=== PATIENT | female | born 1965 | race African-American/Black ===

== ENCOUNTER 2020-04-11 20:16 | Inpatient (IN) | payer MEDICAID ==
[~2020-04-11] VITALS: Ht 170.2 cm; Wt 68.0 kg
--- NOTE | 2020-04-11 20:30 | NUR ---
ED Nurse Note: Patient brought into the ED by [facility] from [facility] due to abnormal labs. Per EMS pts hgb is 7.6 and is undergoing chemo and was receiving vancomycin IV. Pt has PICC line at right arm. Patient is paraplegic. Pt denies CP/SOB//, fatigue or weakness, N/V/D. Patient is AAOX4 and placed on monitor bed
--- NOTE | 2020-04-11 20:35 | NUR ---
ED Nurse Note: ERMD at bedside
--- NOTE | 2020-04-11 20:45 | NUR ---
ED Nurse Note: Blood sent to lab
[2020-04-11] MEDS ORDERED: IPRAT-ALBUT 0.5-3 ML IH (20:54)
[2020-04-11] MEDS ORDERED: PANTOPRAZOLE SO40 MG ORAL (20:54)
[2020-04-11] MEDS ORDERED: IBUPROFEN600 M1 ORAL (20:54)
[2020-04-11] MEDS ORDERED: BACLOFEN10 MG ORAL (20:54)
[2020-04-11] MEDS ORDERED: FOLIC ACID1 MG ORAL (20:54)
[2020-04-11] MEDS ORDERED: NORCO 5-325 TA1 EAC1 ORAL (20:54)
[2020-04-11] MEDS ORDERED: CARDIZEM30 M1 PO (20:54)
[2020-04-11] MEDS ORDERED: TRAMADOL HCL50 MG ORAL (20:54)
[2020-04-11] MEDS ORDERED: ALLOPURINOL300 M1 ORAL (20:54)
[2020-04-11 21:02] VITALS: BP 108/64
[2020-04-11 21:08] LABS: HEMATOCRIT 21.4 % (37.0-47.0); MEAN CORPUSCULAR VOLUME 86 FL (80-99); PLATELET COUNT 542 K/UL (150-450); RED BLOOD COUNT 2.48 M/UL (4.20-5.40); RED CELL DISTRIBUTION WIDTH 16.9 % (11.6-14.8); WHITE BLOOD COUNT 5.5 K/UL (4.8-10.8)
[2020-04-11 21:16] LABS: ANION GAP 7 mmol/L (5-15); BLOOD UREA NITROGEN 4 mg/dL (7-18); CALCIUM 8.7 MG/DL (8.5-10.1); CARBON DIOXIDE 30 MMOL/L (21-32); CHLORIDE 104 MMOL/L (98-107); CREATININE 0.5 MG/DL (0.55-1.30); POTASSIUM 3.1 MMOL/L (3.5-5.1); SODIUM 141 MMOL/L (136-145)
[2020-04-11 21:19] LABS: INR 1.3 (0.9-1.1)
[2020-04-11 21:20] LABS: ALANINE AMINOTRANSFERASE 11 U/L (12-78); ALBUMIN 2.3 G/DL (3.4-5.0); ALBUMIN/GLOBULIN RATIO 0.6 (1.0-2.7); ALKALINE PHOSPHATASE 178 U/L (46-116); ASPARTATE AMINO TRANSFERASE 11 U/L (15-37); BILIRUBIN,TOTAL 0.5 MG/DL (0.2-1.0)
[2020-04-11 21:25] LABS: HEMOGLOBIN 6.7 G/DL (12.0-16.0)
[2020-04-11] MEDS ORDERED: Morphine Sulfate 2mg/ml Inj(IV/IM USE ONLY) IVP ONE (21:30)
[2020-04-11 21:32] LABS: APPEARANCE,URINE CLEAR; BILIRUBIN, URINE NEGATIVE (NEGATIVE); COLOR,URINE PALE YELLOW; GLUCOSE, URINE (UA) NEGATIVE (NEGATIVE); KETONES,URINE NEGATIVE (NEGATIVE); LEUKOCYTE ESTERASE ,URINE 1+ (NEGATIVE); NITRITE,URINE NEGATIVE (NEGATIVE); PH,URINE 7 (4.5-8.0); PROTEIN,URINE NEGATIVE (NEGATIVE); UROBILINOGEN,URINE NORMAL MG/DL (0.0-1.0)
--- NOTE | 2020-04-11 22:30 | NUR ---
ED Nurse Note: 1st unit of PRBC started
--- NOTE | 2020-04-11 22:45 | Emergency Room Report ---
History of Present Illness General Chief Complaint: Abnormal Labs Source: Patient, Medical Record, EMS Present Illness HPI 55-year-old female presents for abnormal labs. [facility] with low hemoglobin. Patient denies any dizziness or weakness. Denies any blood in stool. Denies chest pain or shortness of breath. No other aggravating relieving factors. Denies any other associated symptoms Allergies: Coded Allergies: No Known Allergies (Unverified , 04/11/20) COVID-19 Screening Contact w/high risk pt: No Experienced COVID-19 symptoms?: No COVID-19 Testing performed HY[employer]LECT[employer]ICIAN: No Patient History Past Medical History: HTN Past Surgical History: none Pertinent Family History: none Social History: Denies: smoking, alcohol use, drug use Now: No Immunizations: UTD Reviewed Nursing Documentation: PMH: Agreed; PSxH: Agreed Nursing Documentation-PMH Hx Hypertension: Yes Review of Systems All Other Systems: negative except mentioned in HPI Physical Exam Vital Signs Date Time Temp Pulse Resp B/P (MAP) Pulse Ox O2 Delivery O2 Flow Rate FiO2 04/11/20 20:20 99.0 113 16 103/64 (77) 97 Nasal Cannula 2.0 Sp02 EP Interpretation: reviewed, normal General Appearance: no apparent distress, alert, GCS 15, non-toxic Head: normocephalic, atraumatic Eyes: bilateral eye normal inspection, bilateral eye PERRL ENT: hearing grossly normal, normal pharynx, no angioedema, normal voice Neck: full range of motion, supple/symm/no masses Respiratory: chest non-tender, lungs clear, normal breath sounds, speaking full sentences Cardiovascular #1: regular rate, rhythm, no edema Cardiovascular #2: 2+ carotid (R), 2+ carotid (L), 2+ radial (R), 2+ radial (L), 2+ dorsalis pedis (R), 2+ dorsalis pedis (L) Gastrointestinal: normal bowel sounds, non tender, soft, non-distended, no guarding, no rebound Rectal: deferred Genitourinary: normal inspection, no CVA tenderness Musculoskeletal: back normal, normal range of motion, gait/station normal, non- tender Neurologic: alert, motor strength/tone normal, oriented x3, sensory intact, responsive, speech normal Psychiatric: judgement/insight normal, memory normal, mood/affect normal, no suicidal/homicidal ideation Reflexes: 3+ bicep (R), 3+ bicep (L), 3+ tricep (R), 3+ tricep (L), 3+ knee (R), 3+ knee (L) Lymphatic: no adenopathy Procedures Critical Care Time Critical Care Time i. I feel this is a highly complex case requiring extensive working including EKG/Rhythm strip, Xray/CT/US, Blood/urine lab work, repeat exams while in ED, and administration of strong opiates/narcotics for pain control, admission to hospital or close patient follow up. Total time: 30 min bedside evaluation and treatment excludes procedures (EKG). Reason for critical care: anemia Possible complications: hypotension, hypertension, [place], shock, arrhythmias, met abolic acidosis, end organ damage, respiratory failure. Interventions: labs, IVFs, blood transfusion Course: Patient presenting with low hemoglobin. Hemoglobin 6.7. Asymptomatic. Vital stable. Blood transfusion ordered Consultations: nursing staff, EMS, family Performed by: Dr May Tolerated well condition = serious j. because of unstable vital signs this patient had a condition that could potentially threaten life or limb. I feel this is a critical patient who required my full attention while patient was considered critical. Total Critical Care Time excluding procedures was greater than 35 minutes Medical Decision Making Diagnostic Impression: Primary Impression: Anemia Qualified Codes: D64.9 - Anemia, unspecified ER Course Hospital Course 55-year-old female presents to ED for evaluation of possible anemia, with possible transfusion Differential diagnoses include: anemia requiring transfusion, microcytic anemia, macrocytic anemia, heavy blood loss Clinical course Patient placed on stretcher. After initial history and physical I ordered labs including CBC and type and screen. Labs- hemoglobin/hematocrit 6.7/21.4. Electrolytes okay, no leukocytosis PRBCs ordered patient admitted to DR Dykes Diagnosis - anemia Admitted to floor in serious condition Laboratory Tests Test 04/11/20 20:59 04/11/20 21:10 White Blood Count 5.5 K/UL (4.8-10.8) Red Blood Count 2.48 M/UL (4.20-5.40) L Hemoglobin 6.7 G/DL (12.0-16.0) *L Hematocrit 21.4 % (37.0-47.0) L Mean Corpuscular Volume 86 FL (80-99) Mean Corpuscular Hemoglobin 27.1 PG (27.0-31.0) Mean Corpuscular Hemoglobin Concent 31.4 G/DL (32.0-36.0) L Red Cell Distribution Width 16.9 % (11.6-14.8) H Platelet Count 542 K/UL (150-450) H Mean Platelet Volume 5.1 FL (6.5-10.1) L Neutrophils (%) (Auto) % (45.0-75.0) Lymphocytes (%) (Auto) % (20.0-45.0) Monocytes (%) (Auto) % (1.0-10.0) Eosinophils (%) (Auto) % (0.0-3.0) Basophils (%) (Auto) % (0.0-2.0) Differential Total Cells Counted 100 Neutrophils % (Manual) 70 % (45-75) Lymphocytes % (Manual) 21 % (20-45) Monocytes % (Manual) 5 % (1-10) Eosinophils % (Manual) 3 % (0-3) Basophils % (Manual) 1 % (0-2) Band Neutrophils 0 % (0-8) Platelet Estimate Increased H Platelet Morphology Normal Hypochromasia 3+ Anisocytosis 2+ Prothrombin Time 13.8 SEC (9.30-11.50) H Prothromb Time International Ratio 1.3 (0.9-1.1) H Activated Partial Thromboplast Time 32 SEC (23-33) Sodium Level 141 MMOL/L (136-145) Potassium Level 3.1 MMOL/L (3.5-5.1) L Chloride Level 104 MMOL/L (98-107) Carbon Dioxide Level 30 MMOL/L (21-32) Anion Gap 7 mmol/L (5-15) Blood Urea Nitrogen 4 mg/dL (7-18) L Creatinine 0.5 MG/DL (0.55-1.30) L Estimat Glomerular Filtration Rate > 60 mL/min (>60) Glucose Level 94 MG/DL (74-106) Calcium Level 8.7 MG/DL (8.5-10.1) Total Bilirubin 0.5 MG/DL (0.2-1.0) Aspartate Amino Transf (AST/SGOT) 11 U/L (15-37) L Alanine Aminotransferase (ALT/SGPT) 11 U/L (12-78) L Alkaline Phosphatase 178 U/L (46-116) H Total Protein 6.3 G/DL (6.4-8.2) L Albumin 2.3 G/DL (3.4-5.0) L Globulin 4.0 g/dL Albumin/Globulin Ratio 0.6 (1.0-2.7) L Lipase 214 U/L (73-393) Urine Color Pale yellow Urine Appearance Clear Urine pH 7 (4.5-8.0) Urine Specific [place] 1.005 (1.005-1.035) Urine Protein Negative (NEGATIVE) Urine Glucose (UA) Negative (NEGATIVE) Urine Ketones Negative (NEGATIVE) Urine Blood Negative (NEGATIVE) Urine Nitrite Negative (NEGATIVE) Urine Bilirubin Negative (NEGATIVE) Urine Urobilinogen Normal MG/DL (0.0-1.0) Urine Leukocyte Esterase 1+ (NEGATIVE) H Urine RBC 0-2 /HPF (0 - 2) Urine WBC 5-10 /HPF (0 - 2) H Urine Squamous Epithelial Cells Few /LPF (NONE/OCC) Urine Bacteria Few /HPF (NONE) Last Vital Signs Date Time Temp Pulse Resp B/P (MAP) Pulse Ox O2 Delivery O2 Flow Rate FiO2 04/11/20 21:57 99.0 04/11/20 21:02 83 18 108/64 97 Nasal Cannula 2.0 Status: improved Disposition: ADMITTED INPATIENT Condition: Serious Referrals: [facility],REFERRING (PCP) Rickie May MD Apr 11, 2020 22:45
[2020-04-12] VITALS (8 sets, daily range): BP systolic 97–155; BP diastolic 62–103
--- NOTE | 2020-04-12 01:30 | NUR ---
ED Nurse Note: 1st unit of PRBC consumed. No BT reaction noted
--- NOTE | 2020-04-12 02:00 | NUR ---
ED Nurse Note: VRE, CRE, MRSA sent
[2020-04-12] MEDS ORDERED: Morphine Sulfate 2mg/ml Inj(IV/IM USE ONLY) ONE (02:13)
[2020-04-12] MEDS ORDERED: Morphine Sulfate 2mg/ml Inj(IV/IM USE ONLY) IVP ONE (02:15)
--- NOTE | 2020-04-12 02:15 | NUR ---
TRANSFER TO FLOOR: [facility] accompanied by RN. Belongings checked and given to RN. PAtient transferred safely to bed and endorsed to RN
--- NOTE | 2020-04-12 02:15 | NUR ---
NURSE NOTES: Patient brought in by ER staff via gurney, patient is paraplegic lower extremities, has a eaton in. PICC line in place, flushing well. Patient belongings brought with patient and verified inventory with BAR HOST/HOSTESS. In no apparent distress. bed is low and locked. call light within reach. oriented to room , verbalized understanding
[2020-04-12] MEDS ORDERED: Albuterol/Ipratropium 3ml neb INH PRN ×2 (02:45→04:30)
[2020-04-12] MEDS ORDERED: Morphine Sulfate 2mg/ml Inj(IV/IM USE ONLY) IVP PRN (02:45)
[2020-04-12] MEDS: Morphine Sulfate 2mg/ml Inj(IV/IM USE ONLY) IVP PRN ×4 (04:09→19:44)
--- NOTE | 2020-04-12 04:30 | NUR ---
NURSE NOTES: Prior to blood transfusion, patient developed fever of 99.9. Paged dr Dykes for orders, received order to give tylenol 650 mg prior to and to proceed with transfusion if temp WNL
[2020-04-12] MEDS: dilTIAZem HCl 30mg tab ORAL SCH ×3 (06:00→18:05)
[2020-04-12] MEDS ORDERED: Cathflo Alteplase 2mg Inj INJ SCH ×2 (06:00→21:00)
--- NOTE | 2020-04-12 06:10 | NUR ---
NURSE NOTES: STARTED BLOOD TRANSFUSION
--- NOTE | 2020-04-12 06:25 | NUR ---
NURSE NOTES: 15 mins after the start of blood transfusion, patient's vs wnl
[2020-04-12 06:49] LABS: HEMATOCRIT 24.2 % (37.0-47.0); HEMOGLOBIN 7.8 G/DL (12.0-16.0); MEAN CORPUSCULAR VOLUME 82 FL (80-99); PLATELET COUNT 517 K/UL (150-450); RED BLOOD COUNT 2.95 M/UL (4.20-5.40); RED CELL DISTRIBUTION WIDTH 19.6 % (11.6-14.8)
--- NOTE | 2020-04-12 07:12 | NUR ---
NURSE HAND-OFF: Important Events on Shift: Blood transfusion in process, patient tolerating well. Patient took KDur but she takes a while to swallow whole/ large pills . Patient Status: stable Diet: regular Pending Orders: [] Pending Results/Labs:[] Pending MD notification:[] Latest Vital Signs: Temperature 98.7 , Pulse 103 , B/P 100 /67 , Respiratory Rate 18 , O2 SAT 98 , Nasal Cannula, O2 Flow Rate 2.0 . Vital Sign Comment: [] Latest [place] Fall Score: 55 Fall Risk: High Risk Safety Measures: Call light Within Reach, Bed Alarm Zone 2, Side Rails Side Rails x2, Bed position Low and Locked. Fall Precautions: Yellow Socks Yellow Gown Door Sign Patient Fall Education Report given to Arabella LUCIA
[2020-04-12 07:13] LABS: ANION GAP 8 mmol/L (5-15); BLOOD UREA NITROGEN 3 mg/dL (7-18); CARBON DIOXIDE 29 MMOL/L (21-32); CHLORIDE 104 MMOL/L (98-107); CREATININE 0.5 MG/DL (0.55-1.30); PHOSPHORUS 3.8 MG/DL (2.5-4.9); POTASSIUM 3.3 MMOL/L (3.5-5.1); SODIUM 141 MMOL/L (136-145)
[2020-04-12 07:18] LABS: CALCIUM 8.8 MG/DL (8.5-10.1)
--- NOTE | 2020-04-12 07:30 | NUR ---
NURSE NOTES: Received report from Elie LUCIA. Patient is asleep during rounds, in no distress, RR even and unlabored. Patient receiving blood transfusion at this time via LINDEN PICC, dressing clean and intact. Morales to gravity drainage draining clear, yellow urine. Patient is on 2L NC. Side rails upx3, bed low and locked, call light within reach.
[2020-04-12] MEDS: Vancomycin 1.25gm/250ml Premix IVPB SCH ×2 (09:00→19:44)
--- NOTE | 2020-04-12 09:36 | NUR ---
NURSE NOTES: Blood transfusion done, VS stable, no s/s of transfusion reaction. Tachycardia at 118 HR, patient states she has pain in her back and legs.
--- NOTE | 2020-04-12 13:30 | Consultation ---
History of Present Illness General Chief Complaint: Abnormal Labs Present Illness HPI 55F with PMhx of Non-Hodgkins Lymphoma (per patient) and recent admission for Sepsis 2' port infection presents following abnormal labs at SNF. Patient states that she was recently at OSH and treated for sepsis 2' port infection and is receiving antibiotics at SNF. She had a new diagnosis of lymphoma and is following by outside oncologist and last received chemo treatment in February 2020. Her sister called nursing staff and it was noted that her prior hb were in the r cassidy of 9-10g/dL. She states she is weaker. She has not had a colonoscopy in the past. Denies any vaginal bleeding, rectal bleeding, or dark/tarry bowel movements. She says it was noted that there is increasing burden of her lymphoma in her spine. Allergies: Coded Allergies: No Known Allergies (Unverified , 04/11/20) Medication History Scheduled Allopurinol* (Allopurinol*), 300 MG ORAL DAILY, (Reported) Baclofen* (Baclofen*), 10 MG ORAL THREE TIMES A DAY, (Reported) Cholecalciferol (Vitamin D3) (Vitamin D3*), 25 MCG PO DAILY, (Reported) Diltiazem Hcl* (Cardizem*), 30 MG PO QID, (Reported) Folic Acid* (Folic Acid*), 1 MG ORAL DAILY, (Reported) Hydrochlorothiazide* (Hydrochlorothiazide*), 25 MG ORAL DAILY, (Reported) Ibuprofen* (Motrin*), 600 MG ORAL FOUR TIMES A DAY, (Reported) Levofloxacin* (Levofloxacin*), 750 MG ORAL DAILY, (Reported) Pantoprazole* (Pantoprazole*), 40 MG ORAL DAILY, (Reported) Scheduled PRN Hydrocodone Bit/Acetaminophen 5-325* ([place] 5-325 Tablet*), 1 TAB ORAL Q4H PRN for For Pain, (Reported) Tramadol Hcl* (Ultram*), 300 MG ORAL Q6H PRN for For Pain, (Reported) Miscellaneous Medications Ipratropium/Albuterol Sulfate (Iprat-Albut 0.5-3(2.5) Mg/3 Ml), 3 ML IH, (Repor bethany) Patient History Healthcare decision maker Resuscitation status Advanced Directive on File Review of Systems All Other Systems: negative except mentioned in HPI Physical Exam General Appearance: no apparent distress Lines, tubes and drains: peripheral HEENT: normocephalic, atraumatic Neck: non-tender, normal alignment Respiratory/Chest: chest wall non-tender, lungs clear Cardiovascular/Chest: normal peripheral pulses, normal rate Abdomen: normal bowel sounds, non tender Neurologic: alert, oriented x 3 Last 24 Hour Vital Signs Date Time Temp Pulse Resp B/P (MAP) Pulse Ox O2 Delivery O2 Flow Rate FiO2 04/12/20 08:45 78 16 99 Nasal Cannula 2.0 28 04/12/20 08:00 98.4 110 16 110/71 (84) 98 04/12/20 07:55 99 Nasal Cannula 2.0 28 04/12/20 06:25 98.7 103 18 100/67 (78) 98 04/12/20 06:10 98.3 116 18 98/62 (74) 97 04/12/20 06:00 116 98/62 04/12/20 05:27 98.3 04/12/20 04:00 99.9 121 18 122/82 (95) 100 04/12/20 03:47 Nasal Cannula 2.0 04/12/20 03:46 99.0 04/12/20 02:36 98.9 18 123/82 (96) 100 04/12/20 02:15 99.0 83 18 108/64 97 Nasal Cannula 2.0 04/11/20 21:57 99.0 04/11/20 21:02 99.0 83 18 108/64 97 Nasal Cannula 2.0 04/11/20 20:20 99.0 113 16 103/64 (77) 97 Nasal Cannula 2.0 Intake and Output 04/11/20 04/12/20 18:59 06:59 Intake Total 500 ml Output Total 650 ml Balance -150 ml Intake Oral 500 ml Output Urine Total 650 ml Laboratory Tests Test 04/11/20 20:59 04/11/20 21:10 04/12/20 05:00 White Blood Count 5.5 K/UL (4.8-10.8) 6.0 K/UL (4.8-10.8) Red Blood Count 2.48 M/UL (4.20-5.40) L 2.95 M/UL (4.20-5.40) L Hemoglobin 6.7 G/DL (12.0-16.0) *L 7.8 G/DL (12.0-16.0) L Hematocrit 21.4 % (37.0-47.0) L 24.2 % (37.0-47.0) L Mean Corpuscular Volume 86 FL (80-99) 82 FL (80-99) Mean Corpuscular Hemoglobin 27.1 PG (27.0-31.0) 26.6 PG (27.0-31.0) L Mean Corpuscular Hemoglobin Concent 31.4 G/DL (32.0-36.0) L 32.4 G/DL (32.0-36.0) Red Cell Distribution Width 16.9 % (11.6-14.8) H 19.6 % (11.6-14.8) H Platelet Count 542 K/UL (150-450) H 517 K/UL (150-450) H Mean Platelet Volume 5.1 FL (6.5-10.1) L 4.8 FL (6.5-10.1) L Neutrophils (%) (Auto) % (45.0-75.0) % (45.0-75.0) Lymphocytes (%) (Auto) % (20.0-45.0) % (20.0-45.0) Monocytes (%) (Auto) % (1.0-10.0) % (1.0-10.0) Eosinophils (%) (Auto) % (0.0-3.0) % (0.0-3.0) Basophils (%) (Auto) % (0.0-2.0) % (0.0-2.0) Differential Total Cells Counted 100 100 Neutrophils % (Manual) 70 % (45-75) 72 % (45-75) Lymphocytes % (Manual) 21 % (20-45) 17 % (20-45) L Monocytes % (Manual) 5 % (1-10) 8 % (1-10) Eosinophils % (Manual) 3 % (0-3) 3 % (0-3) Basophils % (Manual) 1 % (0-2) 0 % (0-2) Band Neutrophils 0 % (0-8) 0 % (0-8) Platelet Estimate Increased H Increased H Platelet Morphology Normal Normal Hypochromasia 3+ 1+ Anisocytosis 2+ 2+ Prothrombin Time 13.8 SEC (9.30-11.50) H Prothromb Time International Ratio 1.3 (0.9-1.1) H Activated Partial Thromboplast Time 32 SEC (23-33) Sodium Level 141 MMOL/L (136-145) 141 MMOL/L (136-145) Potassium Level 3.1 MMOL/L (3.5-5.1) L 3.3 MMOL/L (3.5-5.1) L Chloride Level 104 MMOL/L (98-107) 104 MMOL/L (98-107) Carbon Dioxide Level 30 MMOL/L (21-32) 29 MMOL/L (21-32) Anion Gap 7 mmol/L (5-15) 8 mmol/L (5-15) Blood Urea Nitrogen 4 mg/dL (7-18) L 3 mg/dL (7-18) L Creatinine 0.5 MG/DL (0.55-1.30) L 0.5 MG/DL (0.55-1.30) L Estimat Glomerular Filtration Rate > 60 mL/min (>60) > 60 mL/min (>60) Glucose Level 94 MG/DL (74-106) 91 MG/DL (74-106) Calcium Level 8.7 MG/DL (8.5-10.1) 8.8 MG/DL (8.5-10.1) Total Bilirubin 0.5 MG/DL (0.2-1.0) Aspartate Amino Transf (AST/SGOT) 11 U/L (15-37) L Alanine Aminotransferase (ALT/SGPT) 11 U/L (12-78) L Alkaline Phosphatase 178 U/L (46-116) H Total Protein 6.3 G/DL (6.4-8.2) L Albumin 2.3 G/DL (3.4-5.0) L Globulin 4.0 g/dL Albumin/Globulin Ratio 0.6 (1.0-2.7) L Lipase 214 U/L (73-393) Urine Color Pale yellow Urine Appearance Clear Urine pH 7 (4.5-8.0) Urine Specific [place] 1.005 (1.005-1.035) Urine Protein Negative (NEGATIVE) Urine Glucose (UA) Negative (NEGATIVE) Urine Ketones Negative (NEGATIVE) Urine Blood Negative (NEGATIVE) Urine Nitrite Negative (NEGATIVE) Urine Bilirubin Negative (NEGATIVE) Urine Urobilinogen Normal MG/DL (0.0-1.0) Urine Leukocyte Esterase 1+ (NEGATIVE) H Urine RBC 0-2 /HPF (0 - 2) Urine WBC 5-10 /HPF (0 - 2) H Urine Squamous Epithelial Cells Few /LPF (NONE/OCC) Urine Bacteria Few /HPF (NONE) Phosphorus Level 3.8 MG/DL (2.5-4.9) Magnesium Level 1.5 MG/DL (1.8-2.4) L Height (Feet): 5 Height (Inches): 7.00 Weight (Pounds): 150 Medications Current Medications Medications (Trade) Dose Ordered Sig/Angelika Route PRN Reason Start Time Stop Time Status Last Admin Dose Admin Acetaminophen (Tylenol) 650 mg Q6H PRN ORAL Mild Pain (Pain Scale 1-3) 04/12/20 02:45 05/12/20 02:44 Albuterol/ Ipratropium (Albuterol/ Ipratropium) 3 ml Q4H PRN INH Shortness of Breath 04/12/20 04:30 04/17/20 04:29 Allopurinol (allopurinoL) 300 mg DAILY ORAL 04/12/20 09:00 05/12/20 08:59 04/12/20 09:00 Alteplase, Recombinant (Cathflo) 4 mg ONCE INJ 04/12/20 21:00 04/13/20 06:00 Baclofen (Lioresal) 10 mg THREE TIMES A DAY ORAL 04/12/20 09:00 05/12/20 08:59 Chlorhexidine Gluconate (Christy-Hex 2%) 1 applic DAILY@1999 TOPIC 04/12/20 20:00 07/11/20 19:59 Diltiazem HCl (Cardizem Tab) 30 mg QID@0000,0600,1200,1800 ORAL 04/12/20 06:00 05/12/20 05:59 Folic Acid (Folate) 1 mg DAILY ORAL 04/12/20 09:00 05/12/20 08:59 04/12/20 09:00 Magnesium Oxide (Mag-Ox 400mg) 400 mg THREE TIMES A DAY ORAL 04/12/20 13:00 04/14/20 12:59 Morphine Sulfate (Morphine Sulfate) 1 mg Q3H PRN IVP Moderate Pain (Pain Scale 4-6) 04/12/20 02:45 04/19/20 02:44 Morphine Sulfate (Morphine Sulfate) 2 mg Q3H PRN IVP Severe Pain (Pain Scale 7-10) 04/12/20 02:45 04/19/20 02:44 04/12/20 09:39 Pantoprazole (Protonix) 40 mg DAILY ORAL 04/12/20 09:00 05/12/20 08:59 04/12/20 09:00 Vancomycin HCl 250 ml @ 166.667 mls/hr Q12HR@0800,1999 IVPB 04/12/20 08:00 04/17/20 07:59 04/12/20 09:00 Vancomycin HCl (Vanco pharmacy to dose) 1 ea DAILY PRN MISC Per rx protocol 04/12/20 04:15 05/12/20 04:14 Assessment/Plan Diagnosis [place] I: #hypokalemia- #hypomagnesemia #Acute on chronic anemia #h/p non- hodgkins lymphoma #possible sepsis #? port infection - prbc transfusion - replete lytes - hemo-onc eval - ID eval - continue with IV abx - monitor CBC - avoid nephrotoxins times spent 65 min Kallie Dykes M.D. Apr 12, 2020 13:30
[2020-04-12] MEDS: Magnesium Oxide 400mg tab ORAL SCH ×2 (14:26→18:05)
--- NOTE | 2020-04-12 14:45 | NUR ---
CASE MANAGEMENT:INITIAL REVIEW 55 YR OLD FEMALE BIBA FROM [facility] CC;ABNORMAL LABS SI;ANEMIA 99.9 121 118 123/82 97% 2L NV RBC 2.48 H/H 6.7/21.4 PLT 542 K+ 3.1 ALP 178 ALB 2.3 PT 13.8 INR 1.3 UA + LEUKOCYTE ESTERASE, WBC TYPE AND CROSS IS;2 UNITS PRBC TRANSFUSED MORPHINE SULFATE IV ADMITTED TO MED SURG MED SURG STATUS DCP;FROM [facility]
--- NOTE | 2020-04-12 16:42 | NUR ---
NURSE NOTES: Called and notified Dr. Dykes that patient is tachycardia and has fever of 102.8. Received orders for NS bolus x1, tylenol, and swab for COVID. Patient placed on contact/droplet isolation for PUI-COVID. Nursing pile driving supervisor notified, transfer to pending.
--- NOTE | 2020-04-12 17:48 | History and Physical ---
History of Present Illness General Date patient seen: Apr 12, 2020 Time patient seen: 12:39 Reason for Hospitalization: Abnormal Labs Present Illness HPI 55F with PMhx of Non-Hodgkins Lymphoma (per patient) and recent admission for Sepsis 2' port infection presents following abnormal labs at SNF. Patient states that she was recently at OSH and treated for sepsis 2' port infection and is receiving antibiotics at SNF. She had a new diagnosis of lymphoma and is following by outside oncologist and last received chemo treatment in February 2020. Her sister called nursing staff and it was noted that her prior hb were in the range of 9-10g/dL. She states she is weaker. She has not had a colonoscopy in the past. Denies any vaginal bleeding, rectal bleeding, or dark/tarry bowel movements. She says it was noted that there is increasing burden of her lymphoma in her spine. Currently she is resting comfortably and in no distress. Allergies: Coded Allergies: No Known Allergies (Unverified , 04/11/20) COVID-19 Screening Contact w/high risk pt: No Experienced COVID-19 symptoms?: No Medication History Scheduled Allopurinol* (Allopurinol*), 300 MG ORAL DAILY, (Reported) Baclofen* (Baclofen*), 10 MG ORAL THREE TIMES A DAY, (Reported) Diltiazem Hcl* (Cardizem*), 30 MG PO QID, (Reported) Folic Acid* (Folic Acid*), 1 MG ORAL DAILY, (Reported) Ibuprofen* (Motrin*), 600 MG ORAL FOUR TIMES A DAY, (Reported) Pantoprazole* (Pantoprazole*), 40 MG ORAL DAILY, (Reported) Scheduled PRN Hydrocodone Bit/Acetaminophen 5-325* ([place] 5-325 Tablet*), 1 TAB ORAL Q4H PRN for For Pain, (Reported) Tramadol Hcl* (Ultram*), 300 MG ORAL Q6H PRN for For Pain, (Reported) Miscellaneous Medications Ipratropium/Albuterol Sulfate (Iprat-Albut 0.5-3(2.5) Mg/3 Ml), 3 ML IH, (Re ported) Patient History History Provided By: Patient Healthcare decision maker Resuscitation status Advanced Directive on File Review of Systems Constitutional: Denies: no symptoms, see HPI, chills, sweats, fever, malaise, weakness, other Eye: Denies: no symptoms, see HPI, eye pain, blurred vision, tearing, double vision, nose pain, nose congestion, acuity changes, discharge, other ENT: Denies: no symptoms, see HPI, ear pain, ear discharge, nose pain, nose congestion, throat pain, throat swelling, mouth pain, hearing loss, nasal discharge, other Respiratory: Denies: no symptoms, see HPI, cough, orthopnea, shortness of breath, stridor, wheezing, MUSTAFA, sputum, other Cardiovascular: Denies: no symptoms, see HPI, chest pain, edema, palpitations, syncope, PND, other Gastrointestinal: Denies: no symptoms, see HPI, abdominal pain, constipation, diarrhea, nausea, vomiting, melena, hematemesis, other Genitourinary: Denies: no symptoms, see HPI, discharge, dysuria, frequency, hematuria, pain, retention, incontinence, urgency, vag bleed/dc, other Musculoskeletal: Denies: no symptoms, see HPI, back pain, gout, joint pain, joint swelling, muscle pain, muscle stiffness, other Skin: Denies: no symptoms, see HPI, rash, change in color, change in hair/nails, dryness, lesions, other Psychiatric: Denies: no symptoms, see HPI, prior hx, anxiety, depressed feelings, emotional problems, SI, HI, hallucinations, other Neurological: Denies: no symptoms, see HPI, headache, numbness, paresthesia, seizure, tingling, tremors, focal weakness, syncope, dizziness, other Endocrine: Denies: no symptoms, see HPI, excessive sweating, flushing, intolerance to temperature, increased thirst, increased urine, unexplained weight loss, other Hematologic/Lymphatic: Denies: no symptoms, see HPI, anemia, blood clots, easy bleeding, easy bruising, swollen glands, diathesis, other Physical Exam General Appearance: no apparent distress, alert HEENT: normocephalic, atraumatic Neck: supple Respiratory/Chest: normal breath sounds, no respiratory distress Last 24 Hour Vital Signs Date Time Temp Pulse Resp B/P (MAP) Pulse Ox O2 Delivery O2 Flow Rate FiO2 04/12/20 16:24 102.8 122 18 139/85 (103) 95 04/12/20 12:00 98.6 114 16 155/103 (120) 96 04/12/20 08:45 78 16 99 Nasal Cannula 2.0 28 04/12/20 08:00 98.4 110 16 110/71 (84) 98 04/12/20 07:55 99 Nasal Cannula 2.0 28 04/12/20 06:25 98.7 103 18 100/67 (78) 98 04/12/20 06:10 98.3 116 18 98/62 (74) 97 04/12/20 06:00 116 98/62 04/12/20 05:27 98.3 04/12/20 04:00 99.9 121 18 122/82 (95) 100 04/12/20 03:47 Nasal Cannula 2.0 04/12/20 03:46 99.0 04/12/20 02:36 98.9 18 123/82 (96) 100 04/12/20 02:15 99.0 83 18 108/64 97 Nasal Cannula 2.0 04/11/20 21:57 99.0 04/11/20 21:02 99.0 83 18 108/64 97 Nasal Cannula 2.0 04/11/20 20:20 99.0 113 16 103/64 (77) 97 Nasal Cannula 2.0 Intake and Output 04/11/20 04/12/20 19:00 07:00 Intake Total 500 ml Output Total 650 ml Balance -150 ml Intake Oral 500 ml Output Urine Total 650 ml Laboratory Tests Test 04/11/20 20:59 04/11/20 21:10 04/11/20 21:32 04/12/20 05:00 White Blood Count 5.5 K/UL (4.8-10.8) 6.0 K/UL (4.8-10.8) Red Blood Count 2.48 M/UL (4.20-5.40) L 2.95 M/UL (4.20-5.40) L Hemoglobin 6.7 G/DL (12.0-16.0) *L 7.8 G/DL (12.0-16.0) L Hematocrit 21.4 % (37.0-47.0) L 24.2 % (37.0-47.0) L Mean Corpuscular Volume 86 FL (80-99) 82 FL (80-99) Mean Corpuscular Hemoglobin 27.1 PG (27.0-31.0) 26.6 PG (27.0-31.0) L Mean Corpuscular Hemoglobin Concent 31.4 G/DL (32.0-36.0) L 32.4 G/DL (32.0-36.0) Red Cell Distribution Width 16.9 % (11.6-14.8) H 19.6 % (11.6-14.8) H Platelet Count 542 K/UL (150-450) H 517 K/UL (150-450) H Mean Platelet Volume 5.1 FL (6.5-10.1) L 4.8 FL (6.5-10.1) L Neutrophils (%) (Auto) % (45.0-75.0) % (45.0-75.0) Lymphocytes (%) (Auto) % (20.0-45.0) % (20.0-45.0) Monocytes (%) (Auto) % (1.0-10.0) % (1.0-10.0) Eosinophils (%) (Auto) % (0.0-3.0) % (0.0-3.0) Basophils (%) (Auto) % (0.0-2.0) % (0.0-2.0) Differential Total Cells Counted 100 100 Neutrophils % (Manual) 70 % (45-75) 72 % (45-75) Lymphocytes % (Manual) 21 % (20-45) 17 % (20-45) L Monocytes % (Manual) 5 % (1-10) 8 % (1-10) Eosinophils % (Manual) 3 % (0-3) 3 % (0-3) Basophils % (Manual) 1 % (0-2) 0 % (0-2) Band Neutrophils 0 % (0-8) 0 % (0-8) Platelet Estimate Increased H Increased H Platelet Morphology Normal Normal Hypochromasia 3+ 1+ Anisocytosis 2+ 2+ Prothrombin Time 13.8 SEC (9.30-11.50) H Prothromb Time International Ratio 1.3 (0.9-1.1) H Activated Partial Thromboplast Time 32 SEC (23-33) Sodium Level 141 MMOL/L (136-145) 141 MMOL/L (136-145) Potassium Level 3.1 MMOL/L (3.5-5.1) L 3.3 MMOL/L (3.5-5.1) L Chloride Level 104 MMOL/L (98-107) 104 MMOL/L (98-107) Carbon Dioxide Level 30 MMOL/L (21-32) 29 MMOL/L (21-32) Anion Gap 7 mmol/L (5-15) 8 mmol/L (5-15) Blood Urea Nitrogen 4 mg/dL (7-18) L 3 mg/dL (7-18) L Creatinine 0.5 MG/DL (0.55-1.30) L 0.5 MG/DL (0.55-1.30) L Estimat Glomerular Filtration Rate > 60 mL/min (>60) > 60 mL/min (>60) Glucose Level 94 MG/DL (74-106) 91 MG/DL (74-106) Calcium Level 8.7 MG/DL (8.5-10.1) 8.8 MG/DL (8.5-10.1) Total Bilirubin 0.5 MG/DL (0.2-1.0) Aspartate Amino Transf (AST/SGOT) 11 U/L (15-37) L Alanine Aminotransferase (ALT/SGPT) 11 U/L (12-78) L Alkaline Phosphatase 178 U/L (46-116) H Total Protein 6.3 G/DL (6.4-8.2) L Albumin 2.3 G/DL (3.4-5.0) L Globulin 4.0 g/dL Albumin/Globulin Ratio 0.6 (1.0-2.7) L Lipase 214 U/L (73-393) Urine Color Pale yellow Urine Appearance Clear Urine pH 7 (4.5-8.0) Urine Specific [place] 1.005 (1.005-1.035) Urine Protein Negative (NEGATIVE) Urine Glucose (UA) Negative (NEGATIVE) Urine Ketones Negative (NEGATIVE) Urine Blood Negative (NEGATIVE) Urine Nitrite Negative (NEGATIVE) Urine Bilirubin Negative (NEGATIVE) Urine Urobilinogen Normal MG/DL (0.0-1.0) Urine Leukocyte Esterase 1+ (NEGATIVE) H Urine RBC 0-2 /HPF (0 - 2) Urine WBC 5-10 /HPF (0 - 2) H Urine Squamous Epithelial Cells Few /LPF (NONE/OCC) Urine Bacteria Few /HPF (NONE) Lab Scanned Report Blood Bank/Transfusion Phosphorus Level 3.8 MG/DL (2.5-4.9) Magnesium Level 1.5 MG/DL (1.8-2.4) L Height (Feet): 5 Height (Inches): 7.00 Weight (Pounds): 150 Medications Current Medications Medications (Trade) Dose Ordered Sig/Angelika Route PRN Reason Start Time Stop Time Status Last Admin Dose Admin Acetaminophen (Tylenol) 650 mg Q6H PRN ORAL Mild Pain (Pain Scale 1-3) 04/12/20 02:45 05/12/20 02:44 Acetaminophen (Tylenol) 650 mg Q6H PRN ORAL FEVER 04/12/20 16:30 05/12/20 16:29 04/12/20 17:00 Albuterol/ Ipratropium (Albuterol/ Ipratropium) 3 ml Q4H PRN INH Shortness of Breath 04/12/20 04:30 04/17/20 04:29 Allopurinol (allopurinoL) 300 mg DAILY ORAL 04/12/20 09:00 05/12/20 08:59 04/12/20 09:00 Alteplase, Recombinant (Cathflo) 4 mg ONCE INJ 04/12/20 21:00 04/13/20 06:00 Baclofen (Lioresal) 10 mg THREE TIMES A DAY ORAL 04/12/20 09:00 05/12/20 08:59 Chlorhexidine Gluconate (Christy-Hex 2%) 1 applic DAILY@2000 TOPIC 04/12/20 20:00 07/11/20 19:59 Diltiazem HCl (Cardizem Tab) 30 mg QID@0000,0600,1200,1800 ORAL 04/12/20 06:00 05/12/20 05:59 Folic Acid (Folate) 1 mg DAILY ORAL 04/12/20 09:00 05/12/20 08:59 04/12/20 09:00 Magnesium Oxide (Mag-Ox 400mg) 400 mg THREE TIMES A DAY ORAL 04/12/20 13:00 04/14/20 12:59 04/12/20 14:26 Morphine Sulfate (Morphine Sulfate) 1 mg Q3H PRN IVP Moderate Pain (Pain Scale 4-6) 04/12/20 02:45 04/19/20 02:44 Morphine Sulfate (Morphine Sulfate) 2 mg Q3H PRN IVP Severe Pain (Pain Scale 7-10) 04/12/20 02:45 04/19/20 02:44 04/12/20 16:18 Pantoprazole (Protonix) 40 mg DAILY ORAL 04/12/20 09:00 05/12/20 08:59 04/12/20 09:00 Sodium Chloride 1,000 ml @ 999 mls/hr Q1H1M ONCE IV 04/12/20 16:30 04/12/20 17:30 04/12/20 17:00 Vancomycin HCl 250 ml @ 166.667 mls/hr Q12HR@0800,2000 IVPB 04/12/20 08:00 04/17/20 07:59 04/12/20 09:00 Vancomycin HCl ([facility] pharmacy to dose) 1 ea DAILY PRN MISC Per rx protocol 04/12/20 04:15 05/12/20 04:14 Assessment/Plan Status: stable Assessment/Plan: #Acute blood loss anemia #Normyocytic anemia Patient presented with Hb 6.7 with normal MCV. History of lymphoma per patient and is receiving chemo tx, last known to be February 2020. - 2U PRBCs ordered and transufsed - Repeat hb stable - Rectic count pending - Iron and Ferritin pending - No active signs of bleeding - D/w Hematology, consulted to see patient - CTM for signs of bleeding - Patient will need colonoscopy as outpatient in the future #Hx of Lymphoma - All information per patient, not discussed with outpatient onc - Will need to request records #Hypokalemia #hypomagnesia - Lytes replaced #Hx of Sepsis 2' port infection #Febrile - Per patient she is to continue on Vancomycin till 04/25 - Port has been removed at OSH - , UC and CXR ordered, pending - Covid pending, in isolation pending result #Chronic Back pain - Resume Baclofen, norco, tramadol Full Code Regular Diet Time spent is 74 minutes with approximately 23 minutes with counseling and care coordination. D/w consultants and nursing staff. time of note does not reflect time of encounter. Kaylyn Mak M.D. Apr 12, 2020 17:48
--- NOTE | 2020-04-12 18:10 | NUR ---
NURSE NOTES: Patient transferred to [facility] in respiratory isolation d/t PUI COVID. Report given to Vivian LUCIA. Endorsed plan of care.
--- NOTE | 2020-04-12 18:20 | NUR ---
NURSE NOTES: Patient received from from REA Bell at 1810. Patient is awake, alert and oriented x 4, no SOB present, bed set in lowest position with breaks engaged and alarm on, side rails up x 2, denies any discomfort at this time, pt is on contact and droplet precaution for being PUI, no skin breakdown noted, all belongings complete, pt on room air, pt has PICC line on LINDEN and FC present, currently on IV bolus fluids for fever and tachycardia. Will continue to monitor and proceed with plan of care, call light within reach.
--- NOTE | 2020-04-12 19:27 | NUR ---
NURSE HAND-OFF: Important Events on Shift:[monitoring fever, IV bolus, safety and comfort] Patient Status: [stable] Diet: [regular] Pending Orders: [] Pending Results/Labs:[] Pending MD notification:[] Latest Vital Signs: Temperature 102.7 , Pulse 122 , B/P 139 /85 , Respiratory Rate 18 , O2 SAT 95 , Nasal Cannula, O2 Flow Rate 2.0 . Vital Sign Comment: [] Latest [place] Fall Score: 35 Fall Risk: Medium Risk Safety Measures: Call light Within Reach, Bed Alarm Zone 2, Side Rails Side Rails x3, Bed position Low and Locked. Fall Precautions: Yellow Socks Yellow Gown Door Sign Patient Fall Education Report given to [REA Tabares].
[2020-04-12] MEDS: Dyna-Hex 2% Top Sol 2oz TOPIC SCH (19:43)
--- NOTE | 2020-04-12 20:00 | NUR ---
NURSE NOTES: Patient received in bed, awake and alert. FC draining. PICC line dressing c/d/i. able to flush but unable to draw blood at this time, will administer cathflo as ordered after vancomycin infused. Patient refused complete skin assessment at this time c/o pain, morphine given. Will re-attempt later. Call light in reach, will continue with plan of care.
--- NOTE | 2020-04-12 22:30 | NUR ---
NURSE NOTES: Spoke with Dr. Hill re: patient new lab orders. made aware that RN currently attempting to unclog PICC line for blood draw. Unable to aspirate blood after 30 minutes after administration. Will re-attempt after another 90 minutes as indicated. Spoke with Bre from lab and made aware that RN will attempt to draw blood later. If not, will notify lab.
--- NOTE | 2020-04-12 22:32 | Consultation ---
History of Present Illness General Chief Complaint: Abnormal Labs Present Illness Allergies: Coded Allergies: No Known Allergies (Unverified , 04/11/20) Medication History Scheduled Allopurinol* (Allopurinol*), 300 MG ORAL DAILY, (Reported) Baclofen* (Baclofen*), 10 MG ORAL THREE TIMES A DAY, (Reported) Diltiazem Hcl* (Cardizem*), 30 MG PO QID, (Reported) Folic Acid* (Folic Acid*), 1 MG ORAL DAILY, (Reported) Ibuprofen* (Motrin*), 600 MG ORAL FOUR TIMES A DAY, (Reported) Pantoprazole* (Pantoprazole*), 40 MG ORAL DAILY, (Reported) Scheduled PRN Hydrocodone Bit/Acetaminophen 5-325* ([place] 5-325 Tablet*), 1 TAB ORAL Q4H PRN for For Pain, (Reported) Tramadol Hcl* (Ultram*), 300 MG ORAL Q6H PRN for For Pain, (Reported) Miscellaneous Medications Ipratropium/Albuterol Sulfate (Iprat-Albut 0.5-3(2.5) Mg/3 Ml), 3 ML IH, (Reported) Patient History Healthcare decision maker Resuscitation status Advanced Directive on File Physical Exam Last 24 Hour Vital Signs Date Time Temp Pulse Resp B/P (MAP) Pulse Ox O2 Delivery O2 Flow Rate FiO2 04/12/20 21:00 Nasal Cannula 2.0 04/12/20 20:00 98.1 114 16 97/62 (74) 96 04/12/20 18:05 122 139/85 04/12/20 17:30 102.7 04/12/20 17:30 102.7 04/12/20 16:24 102.8 122 18 139/85 (103) 95 04/12/20 12:00 98.6 114 16 155/103 (120) 96 04/12/20 09:00 Nasal Cannula 2.0 04/12/20 08:45 78 16 99 Nasal Cannula 2.0 28 04/12/20 08:00 98.4 110 16 110/71 (84) 98 04/12/20 07:55 99 Nasal Cannula 2.0 28 04/12/20 06:25 98.7 103 18 100/67 (78) 98 04/12/20 06:10 98.3 116 18 98/62 (74) 97 04/12/20 06:00 116 98/62 04/12/20 05:27 98.3 04/12/20 04:00 99.9 121 18 122/82 (95) 100 04/12/20 03:47 Nasal Cannula 2.0 04/12/20 03:46 99.0 04/12/20 02:36 98.9 18 123/82 (96) 100 04/12/20 02:15 99.0 83 18 108/64 97 Nasal Cannula 2.0 Intake and Output 04/11/20 04/12/20 19:00 07:00 Intake Total 500 ml Output Total 650 ml Balance -150 ml Intake Oral 500 ml Output Urine Total 650 ml Laboratory Tests Test 04/12/20 05:00 White Blood Count 6.0 K/UL (4.8-10.8) Red Blood Count 2.95 M/UL (4.20-5.40) L Hemoglobin 7.8 G/DL (12.0-16.0) L Hematocrit 24.2 % (37.0-47.0) L Mean Corpuscular Volume 82 FL (80-99) Mean Corpuscular Hemoglobin 26.6 PG (27.0-31.0) L Mean Corpuscular Hemoglobin Concent 32.4 G/DL (32.0-36.0) Red Cell Distribution Width 19.6 % (11.6-14.8) H Platelet Count 517 K/UL (150-450) H Mean Platelet Volume 4.8 FL (6.5-10.1) L Neutrophils (%) (Auto) % (45.0-75.0) Lymphocytes (%) (Auto) % (20.0-45.0) Monocytes (%) (Auto) % (1.0-10.0) Eosinophils (%) (Auto) % (0.0-3.0) Basophils (%) (Auto) % (0.0-2.0) Differential Total Cells Counted 100 Neutrophils % (Manual) 72 % (45-75) Lymphocytes % (Manual) 17 % (20-45) L Monocytes % (Manual) 8 % (1-10) Eosinophils % (Manual) 3 % (0-3) Basophils % (Manual) 0 % (0-2) Band Neutrophils 0 % (0-8) Platelet Estimate Increased H Platelet Morphology Normal Hypochromasia 1+ Anisocytosis 2+ Sodium Level 141 MMOL/L (136-145) Potassium Level 3.3 MMOL/L (3.5-5.1) L Chloride Level 104 MMOL/L (98-107) Carbon Dioxide Level 29 MMOL/L (21-32) Anion Gap 8 mmol/L (5-15) Blood Urea Nitrogen 3 mg/dL (7-18) L Creatinine 0.5 MG/DL (0.55-1.30) L Estimat Glomerular Filtration Rate > 60 mL/min (>60) Glucose Level 91 MG/DL (74-106) Calcium Level 8.8 MG/DL (8.5-10.1) Phosphorus Level 3.8 MG/DL (2.5-4.9) Magnesium Level 1.5 MG/DL (1.8-2.4) L Height (Feet): 5 Height (Inches): 7.00 Weight (Pounds): 150 Medications Current Medications Medications (Trade) Dose Ordered Sig/Angelika Route PRN Reason Start Time Stop Time Status Last Admin Dose Admin Acetaminophen (Tylenol) 650 mg Q6H PRN ORAL Mild Pain (Pain Scale 1-3) 04/12/20 02:45 05/12/20 02:44 Acetaminophen (Tylenol) 650 mg Q6H PRN ORAL FEVER 04/12/20 16:30 05/12/20 16:29 04/12/20 17:00 Albuterol/ Ipratropium (Albuterol/ Ipratropium) 3 ml Q4H PRN INH Shortness of Breath 04/12/20 04:30 04/17/20 04:29 Allopurinol (allopurinoL) 300 mg DAILY ORAL 04/12/20 09:00 05/12/20 08:59 04/12/20 09:00 Alteplase, Recombinant (Cathflo) 4 mg ONCE INJ 04/12/20 21:00 04/13/20 06:00 04/12/20 21:23 Baclofen (Lioresal) 10 mg THREE TIMES A DAY ORAL 04/12/20 09:00 05/12/20 08:59 Chlorhexidine Gluconate (Christy-Hex 2%) 1 applic DAILY@1999 TOPIC 04/12/20 20:00 07/11/20 19:59 04/12/20 19:43 Diltiazem HCl (Cardizem Tab) 30 mg QID@0000,0600,1200,1800 ORAL 04/12/20 06:00 05/12/20 05:59 04/12/20 18:05 Folic Acid (Folate) 1 mg DAILY ORAL 04/12/20 09:00 05/12/20 08:59 04/12/20 09:00 Magnesium Oxide (Mag-Ox 400mg) 400 mg THREE TIMES A DAY ORAL 04/12/20 13:00 04/14/20 12:59 04/12/20 18:05 Morphine Sulfate (Morphine Sulfate) 1 mg Q3H PRN IVP Moderate Pain (Pain Scale 4-6) 04/12/20 02:45 04/19/20 02:44 Morphine Sulfate (Morphine Sulfate) 2 mg Q3H PRN IVP Severe Pain (Pain Scale 7-10) 04/12/20 02:45 04/19/20 02:44 04/12/20 19:44 Pantoprazole (Protonix) 40 mg DAILY ORAL 04/12/20 09:00 05/12/20 08:59 04/12/20 09:00 Vancomycin HCl 250 ml @ 166.667 mls/hr Q12HR@0800,2000 IVPB 04/12/20 08:00 04/17/20 07:59 04/12/20 19:44 Vancomycin HCl ([facility] pharmacy to dose) 1 ea DAILY PRN MISC Per rx protocol 04/12/20 04:15 05/12/20 04:14 Assessment/Plan Assessment/Plan: Anemia likely of chronic disease -- w/u is pending, has been ordered and dw Martinez Allison MD Apr 12, 2020 22:32
[2020-04-13] VITALS (7 sets, daily range): BP systolic 93–145; BP diastolic 60–90
--- NOTE | 2020-04-13 | NUR ---
NURSE NOTES: Still unable to aspirate blood from either port of the PICC line after 120 minutes of Cathflo. Lab made aware unable to draw lab ordered by Dr. Hill via PICC. Patient requests to have all the blood drawn be done in the AM.
[2020-04-13] MEDS: Morphine Sulfate 2mg/ml Inj(IV/IM USE ONLY) IVP PRN ×6 (00:09→20:15)
[2020-04-13] MEDS: dilTIAZem HCl 30mg tab ORAL SCH ×6 (00:28→23:57)
--- NOTE | 2020-04-13 06:54 | NUR ---
NURSE NOTES: Bed bath given. Patient passed gas but no BM. Sacral wound cleansed with NS and applied triad, patient refused optifoam. Also noted with bilateral buttock excoriation extending to upper thighs. Triad applied. Wound care protocol initiated.
[2020-04-13 07:10] LABS: EOSINOPHILS % (AUTO) 1.8 % (0.0-3.0); HEMATOCRIT 27.6 % (37.0-47.0); HEMOGLOBIN 9.3 G/DL (12.0-16.0); LYMPHOCYTES % (AUTO) 19.6 % (20.0-45.0); MEAN CORPUSCULAR VOLUME 82 FL (80-99); MONOCYTES % (AUTO) 4.9 % (1.0-10.0); NEUTROPHILS % (AUTO) 71.6 % (45.0-75.0); PLATELET COUNT 477 K/UL (150-450); RED BLOOD COUNT 3.36 M/UL (4.20-5.40); RED CELL DISTRIBUTION WIDTH 17.9 % (11.6-14.8); WHITE BLOOD COUNT 5.3 K/UL (4.8-10.8)
--- NOTE | 2020-04-13 07:14 | NUR ---
NURSE HAND-OFF: Important Events on Shift:[cathflo ineffective, still unable to draw blood. Feverx1 at 0400. WOund care protocol initiated for wounds.No BM, passed aleja, pain management] Patient Status: [stable] Diet: [Regular] Pending Orders: [] Pending Results/Labs:[] Pending MD notification:[] Latest Vital Signs: Temperature 100.8 , Pulse 120 , B/P 107 /69 , Respiratory Rate 20 , O2 SAT 98 , Nasal Cannula, O2 Flow Rate 2.0 . Vital Sign Comment: [] Latest [place] Fall Score: 35 Fall Risk: Medium Risk Safety Measures: Call light Within Reach, Bed Alarm Zone 1, Side Rails Side Rails x3, Bed position Low and Locked. Fall Precautions: Yellow Socks Yellow Gown Door Sign Patient Fall Education Report given to [Kyaw Maloney RN].
--- NOTE | 2020-04-13 07:16 | NUR ---
NURSE NOTES: Made rounds, pt is verbally responsive, alert and awake in bed. respiration is even and unlabored with O2@ 2l/min via NC. pt c/o back pain, RN will administer pain medication when due. pt denies any weakness and malaise. no acute distress noted at this time. call light within reach.
[2020-04-13 07:44] LABS: ANION GAP 8 mmol/L (5-15); BLOOD UREA NITROGEN 4 mg/dL (7-18); CALCIUM 8.7 MG/DL (8.5-10.1); CARBON DIOXIDE 26 MMOL/L (21-32); CHLORIDE 100 MMOL/L (98-107); CREATININE 0.5 MG/DL (0.55-1.30); PHOSPHORUS 2.9 MG/DL (2.5-4.9); POTASSIUM 3.9 MMOL/L (3.5-5.1); SODIUM 133 MMOL/L (136-145)
[2020-04-13 07:49] LABS: % IRON SATURATION 8 % (15-50); IRON 12 ug/dL (50-175); TOTAL IRON BINDING CAPACITY 155 ug/dL (250-450)
[2020-04-13] MEDS: Magnesium Oxide 400mg tab ORAL SCH ×3 (08:28→18:06)
[2020-04-13] MEDS: Vancomycin 1.25gm/250ml Premix IVPB SCH (08:29)
--- NOTE | 2020-04-13 09:57 | Nephrology Progress Note ---
Assessment/Plan Plan #hypokalemia- #hypomagnesemia #Acute on chronic anemia #h/p non- hodgkins lymphoma #possible sepsis #? port infection - prbc transfusion - replete lytes - hemo-onc eval - ID eval - continue with IV abx - monitor CBC - avoid nephrotoxins times spent 65 min Subjective ROS Limited/Unobtainable: No Constitutional: Reports: weakness HEENT: Denies: no symptoms, eye pain, blurred vision, tearing, double vision, ear pain, ear discharge, nose pain, nose congestion, throat pain, throat swelling, mouth pain, mouth swelling, other Genitourinary: Denies: no symptoms, burning, discharge, frequency, flank pain, hematuria, incontinence, pain, urgency, other Neurologic/Psychiatric: Denies: no symptoms, anxiety, depressed, emotional problems, headache, numbness, paresthesia, pre-existing deficit, seizure, tingling, tremors, weakness, other Subjective hemoglobin stable lytes low repleted sodium downtrending Objective Objective Last 24 Hour Vital Signs Date Time Temp Pulse Resp B/P (MAP) Pulse Ox O2 Delivery O2 Flow Rate FiO2 04/13/20 08:00 98.5 109 21 93/64 (74) 95 04/13/20 06:55 Nasal Cannula 2.0 04/13/20 06:00 120 107/69 04/13/20 05:21 100.8 04/13/20 04:00 101.8 139 20 121/76 (91) 98 04/13/20 00:28 122 145/89 04/13/20 00:00 98.4 122 16 145/90 (108) 100 04/12/20 21:00 Nasal Cannula 2.0 04/12/20 20:00 98.1 114 16 97/62 (74) 96 04/12/20 18:05 122 139/85 04/12/20 17:30 102.7 04/12/20 17:30 102.7 04/12/20 16:24 102.8 122 18 139/85 (103) 95 04/12/20 12:00 98.6 114 16 155/103 (120) 96 Intake and Output 04/12/20 04/13/20 19:00 07:00 Intake Total 2999 ml 750.000 ml Output Total 1900 ml 1400 ml Balance 1099 ml -650.000 ml Intake Oral 1000 ml 500 ml IV Total 1749 ml 250.000 ml Blood Product 250 ml Output Urine Total 1900 ml 1400 ml Laboratory Tests 04/13/20 05:40: White Blood Count 5.3, Red Blood Count 3.36L, Hemoglobin 9.3L, Hematocrit 27.6L, Mean Corpuscular Volume 82, Mean Corpuscular Hemoglobin 27.7, Mean Corpuscular Hemoglobin Concent 33.7, Red Cell Distribution Width 17.9H, Platelet Count 477H, Mean Platelet Volume 5.1L, Neutrophils (%) (Auto) 71.6, Lymphocytes (%) (Auto) 19.6L, Monocytes (%) (Auto) 4.9, Eosinophils (%) (Auto) 1.8, Basophils (%) (Auto) 2.0, Neutrophils % (Manual) [Pending], Lymphocytes % (Manual) [Pending], Platelet Estimate [Pending], Platelet Morphology [Pending], Reticulocyte Count [Pending], Sodium Level 133L, Potassium Level 3.9, Chloride Level 100, Carbon Dioxide Level 26, Anion Gap 8, Blood Urea Nitrogen 4L, Creatinine 0.5L, Estimat Glomerular Filtration Rate > 60, Glucose Level 89, Calcium Level 8.7, Phosphorus Level 2.9, Magnesium Level 1.6L, Iron Level 12L, Total Iron Binding Capacity 155L, Percent Iron Saturation 8L, Unsaturated Iron Binding 143, Ferritin 874H, Carcinoembryonic Antigen [Pending], Folate 50.6, Thyroid Stimulating Hormone (TSH) 0.036L Height (Feet): 5 Height (Inches): 7.00 Weight (Pounds): 150 General Appearance: no apparent distress EENT: PERRL/EOMI Neck: non-tender, normal alignment Cardiovascular: normal peripheral pulses, normal rate Respiratory/Chest: chest wall non-tender, lungs clear Abdomen: normal bowel sounds, non tender Neurologic: alert, oriented x 3 Kallie Dykes M.D. Apr 13, 2020 09:57
--- NOTE | 2020-04-13 13:27 | NUR ---
CASE MANAGEMENT:REVIEW PMHx;NON-HODGKIN LYMPHOMA SI;ANEMIA. FEBRILE. 102.7 139 21 93/63 95% 2L NC H/H 9.3/27.6 PLT 477 NA 133 MAG 1.6 IRON 12 IS;MAG SULFATE IV ONCE CATHFLO INJ ONCE MAG OX PO TID PROTONIX PO QD VANCOMYCIN IV Q12 ALLOPURINOL PO QD MORPHINE SULFATE IV Q3 PRN MED SURG STATUS DCP;FROM [facility]
--- NOTE | 2020-04-13 14:57 | General Progress Note ---
Subjective Date patient seen: Apr 13, 2020 Time patient seen: 10:15 Constitutional: Denies: no symptoms, chills, diaphoresis, fever, malaise, weakness, other HEENT: Denies: no symptoms, eye pain, blurred vision, tearing, double vision, ear pain, ear discharge, nose pain, nose congestion, throat pain, throat swelling, mouth pain, mouth swelling, other Cardiovascular: Denies: no symptoms, chest pain, edema, irregular heart rate, lightheadedness, palpitations, syncope, other Respiratory: Denies: no symptoms, cough, orthopnea, shortness of breath, SOB with excertion, SOB at rest, sputum, stridor, wheezing, other Gastrointestinal/Abdominal: Denies: no symptoms, abdomen distended, abdominal pain, black stools, tarry stools, blood in stool, constipated, diarrhea, difficulty swallowing, nausea, poor appetite, poor fluid intake, rectal bleeding, vomiting, other Genitourinary: Denies: no symptoms, burning, discharge, frequency, flank pain, hematuria, incontinence, pain, urgency, other Neurologic/Psychiatric: Denies: no symptoms, anxiety, depressed, emotional problems, headache, numbness, paresthesia, pre-existing deficit, seizure, tingling, tremors, weakness, other Endocrine: Denies: no symptoms, excessive sweating, flushing, intolerance to cold, intolerance to heat, increased hunger, increased thirst, increased urine, unexplained weight gain, unexplained weight loss, other Hematologic/Lymphatic: Denies: no symptoms, anemia, easy bleeding, easy bruising, other Allergies: Coded Allergies: No Known Allergies (Unverified , 04/11/20) Subjective Subjectively feeling well Has some pain in the back that is chronic Febrile yesterday and in early AM with temp to 101.8 and HR in 120s Covid PCR pending CXR this AM Objective Last 24 Hour Vital Signs Date Time Temp Pulse Resp B/P (MAP) Pulse Ox O2 Delivery O2 Flow Rate FiO2 04/13/20 12:00 109 93/63 04/13/20 12:00 97.3 109 20 93/63 (73) 95 04/13/20 08:00 98.5 109 21 93/64 (74) 95 04/13/20 06:55 Nasal Cannula 2.0 04/13/20 06:00 120 107/69 04/13/20 05:21 100.8 04/13/20 04:00 101.8 139 20 121/76 (91) 98 04/13/20 00:28 122 145/89 04/13/20 00:00 98.4 122 16 145/90 (108) 100 04/12/20 21:00 Nasal Cannula 2.0 04/12/20 20:00 98.1 114 16 97/62 (74) 96 04/12/20 18:05 122 139/85 04/12/20 17:30 102.7 04/12/20 17:30 102.7 04/12/20 16:24 102.8 122 18 139/85 (103) 95 Intake and Output 04/12/20 04/13/20 19:00 07:00 Intake Total 2999 ml 750.000 ml Output Total 1900 ml 1400 ml Balance 1099 ml -650.000 ml Intake Oral 1000 ml 500 ml IV Total 1749 ml 250.000 ml Blood Product 250 ml Output Urine Total 1900 ml 1400 ml Laboratory Tests 04/13/20 05:40: White Blood Count 5.3, Red Blood Count 3.36L, Hemoglobin 9.3L, Hematocrit 27.6L, Mean Corpuscular Volume 82, Mean Corpuscular Hemoglobin 27.7, Mean Corpuscular Hemoglobin Concent 33.7, Red Cell Distribution Width 17.9H, Platelet Count 477H, Mean Platelet Volume 5.1L, Neutrophils (%) (Auto) 71.6, Lymphocytes (%) (Auto) 19.6L, Monocytes (%) (Auto) 4.9, Eosinophils (%) (Auto) 1.8, Basophils (%) (Auto) 2.0, Differential Total Cells Counted 100, Neutrophils % (Manual) 68, Lymphocytes % (Manual) 25, Monocytes % (Manual) 6, Eosinophils % (Manual) 0, Basophils % (Manual) 0, Band Neutrophils 1, Platelet Estimate IncreasedH, Platelet Morphology Normal, Hypochromasia 1+, Anisocytosis 1+, Reticulocyte Count 0.8, Sodium Level 133L, Potassium Level 3.9, Chloride Level 100, Carbon Dioxide Level 26, Anion Gap 8, Blood Urea Nitrogen 4L, Creatinine 0.5L, Estimat Glomerular Filtration Rate > 60, Glucose Level 89, Calcium Level 8.7, Phosphorus Level 2.9, Magnesium Level 1.6L, Iron Level 12L, Total Iron Binding Capacity 155L, Percent Iron Saturation 8L, Unsaturated Iron Binding 143, Ferritin 874H, Carcinoembryonic Antigen [Pending], Folate 50.6, Thyroid Stimulating Hormone (TSH) 0.036L Height (Feet): 5 Height (Inches): 7.00 Weight (Pounds): 150 General Appearance: no apparent distress, alert EENT: PERRL/EOMI Neck: supple Cardiovascular: other Respiratory/Chest: lungs clear, normal breath sounds Abdomen: non tender, soft Edema: no edema noted Arm (L), no edema noted Arm (R), no edema noted Leg (L), no edema noted Leg (R), no edema noted Pedal (L), no edema noted Pedal (R), no edema noted 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 History of lymphoma per patient and is receiving chemo tx, last known to be February 2020. - 2U PRBCs ordered and transfused - Repeat hb stable - up to 9.3 - Rectic count wnl - Iron and Iron sat low, Ferritin wnl - No active signs of bleeding - D/w Hematology consulted, appreciate recs - CTM for signs of bleeding - Patient will need colonoscopy as outpatient in the future #Hx of Sepsis 2' port infection #SIRS, unclear source of infection (febrile, tachycardic) - Per patient she is to continue on Vancomycin till 04/25 - Port has been removed at OSH - , and CXR ordered, pending - Covid pending, in isolation pending result #Hx of Lymphoma - All information per patient, not discussed with outpatient onc - Will need to request records #Hypokalemia #hypomagnesia - Lytes replaced #Chronic Back pain - Resume Baclofen, norco, tramadol Full Code Regular Diet Time spent is 35 minutes with approximately 18 minutes with counseling and care coordination. D/w consultants and nursing staff. time of note does not reflect time of encounter. Kaylyn Mak M.D. Apr 13, 2020 14:57
--- NOTE | 2020-04-13 16:18 | Diagnostic Imaging Report ---
Indication: Reason For Exam: WEAK Technique: Single AP view of the chest. Comparison: None. Findings: The cardiomediastinal silhouette is within normal limits. There is diffuse interstitial prominence. No airspace consolidation. No pneumothorax or pleural effusion. No acute osseous abnormality. Right approach PICC terminates in the expected location of mid SVC IMPRESSION: Diffuse interstitial prominence, which is nonspecific but may be related to peribronchial thickening in the setting of infectious/inflammatory airways disease or interstitial edema.
[2020-04-13] MEDS ORDERED: HYDROCHLOROTHIA25 MG ORAL (17:46)
[2020-04-13] MEDS ORDERED: LEVOFLOXACIN750 MG ORAL (17:46)
[2020-04-13] MEDS ORDERED: VITAMIN D325 MC1 PO (17:46)
--- NOTE | 2020-04-13 18:21 | NUR ---
INSURANCE CLINICAL/REVIEW FAXED [facility]#[phone] fax#[phone]
--- NOTE | 2020-04-13 18:36 | NUR ---
NURSE HAND-OFF REPORT: Important Events on Shift: 2 BAGS MAGNESIUM GIVEN Patient Status: STABLE Diet: REGULAR Pending Orders: N/A Pending Results/Labs:N/A Pending MD notification:N/A Latest Vital Signs: Temperature 98.6 , Pulse 104 , B/P 106 /65 , Respiratory Rate 20 , O2 SAT 96 , Nasal Cannula, O2 Flow Rate 2.0 . Vital Sign Comment: STABLE EKG Rhythm: Rhythm change?: MD Notified?: - MD Response: Latest Urbina Fall Score: 35 Fall Risk: Medium Risk Safety Measures: Call light Within Reach, Bed Alarm Zone 1, Side Rails Side Rails x3, Bed position Low and Locked. Fall Precautions: Yellow Socks Yellow Gown Door Sign Patient Fall Education Report given to . Addendum: 04/13/20 at 1921 by Kyaw Bueno RN HAND-OFF: Report given to
--- NOTE | 2020-04-13 20:00 | NUR ---
NURSE NOTES: Patient received in bed, awake and alert. PICC line dressing c/d/i. FC draining via gravity. C/o pain, will medicate as prescribed. Noted with elevated temp, will medicate with tylenol and cooling measures. Otherwise, no acute distress at this time. Will continue to monitor.
[2020-04-13] MEDS: Dyna-Hex 2% Top Sol 2oz TOPIC SCH (20:14)
[2020-04-13] MEDS: Vancomycin 1gm/D5W 275ml IVPB SCH ×2 (22:22)
[2020-04-14] VITALS (7 sets, daily range): BP systolic 86–135; BP diastolic 53–91
--- NOTE | 2020-04-14 | Infectious Diseases Prog Note ---
Assessment/Plan Assessment/Plan Full consult to follow: A) 1) possible sepsis, fevers, ? picc line infection, hx port, ? uti, ? viral syndrome 2) hx lymphoma and chemo 3) pmh noted P) 1) vancomycin and cefepime 2) f/u on cultures 3) will f/u 4) thank you Subjective Allergies: Coded Allergies: No Known Allergies (Unverified , 04/11/20) Objective Last 24 Hour Vital Signs Date Time Temp Pulse Resp B/P (MAP) Pulse Ox O2 Delivery O2 Flow Rate FiO2 04/13/20 21:00 Nasal Cannula 1.0 04/13/20 20:46 100.0 04/13/20 20:41 96 Nasal Cannula 2.0 28 04/13/20 20:41 89 16 96 Nasal Cannula 2.0 28 04/13/20 20:00 100.2 135 20 110/60 (77) 96 04/13/20 18:00 104 106/65 04/13/20 18:00 98.6 104 20 106/65 (79) 96 04/13/20 16:00 98.4 78 20 121/74 (90) 97 04/13/20 12:00 109 93/63 04/13/20 12:00 97.3 109 20 93/63 (73) 95 04/13/20 08:00 98.5 109 21 93/64 (74) 95 04/13/20 06:55 Nasal Cannula 2.0 04/13/20 06:00 120 107/69 04/13/20 05:21 100.8 04/13/20 04:00 101.8 139 20 121/76 (91) 98 04/13/20 00:28 122 145/89 04/13/20 00:00 98.4 122 16 145/90 (108) 100 Height (Feet): 5 Height (Inches): 7.00 Weight (Pounds): 150 Laboratory Tests Test 04/13/20 05:40 04/13/20 18:55 White Blood Count 5.3 K/UL (4.8-10.8) Red Blood Count 3.36 M/UL (4.20-5.40) L Hemoglobin 9.3 G/DL (12.0-16.0) L Hematocrit 27.6 % (37.0-47.0) L Mean Corpuscular Volume 82 FL (80-99) Mean Corpuscular Hemoglobin 27.7 PG (27.0-31.0) Mean Corpuscular Hemoglobin Concent 33.7 G/DL (32.0-36.0) Red Cell Distribution Width 17.9 % (11.6-14.8) H Platelet Count 477 K/UL (150-450) H Mean Platelet Volume 5.1 FL (6.5-10.1) L Neutrophils (%) (Auto) 71.6 % (45.0-75.0) Lymphocytes (%) (Auto) 19.6 % (20.0-45.0) L Monocytes (%) (Auto) 4.9 % (1.0-10.0) Eosinophils (%) (Auto) 1.8 % (0.0-3.0) Basophils (%) (Auto) 2.0 % (0.0-2.0) Differential Total Cells Counted 100 Neutrophils % (Manual) 68 % (45-75) Lymphocytes % (Manual) 25 % (20-45) Monocytes % (Manual) 6 % (1-10) Eosinophils % (Manual) 0 % (0-3) Basophils % (Manual) 0 % (0-2) Band Neutrophils 1 % (0-8) Platelet Estimate Increased H Platelet Morphology Normal Hypochromasia 1+ Anisocytosis 1+ Reticulocyte Count 0.8 % (0.5-2.0) Sodium Level 133 MMOL/L (136-145) L Potassium Level 3.9 MMOL/L (3.5-5.1) Chloride Level 100 MMOL/L (98-107) Carbon Dioxide Level 26 MMOL/L (21-32) Anion Gap 8 mmol/L (5-15) Blood Urea Nitrogen 4 mg/dL (7-18) L Creatinine 0.5 MG/DL (0.55-1.30) L Estimat Glomerular Filtration Rate > 60 mL/min (>60) Glucose Level 89 MG/DL (74-106) Calcium Level 8.7 MG/DL (8.5-10.1) Phosphorus Level 2.9 MG/DL (2.5-4.9) Magnesium Level 1.6 MG/DL (1.8-2.4) L Iron Level 12 ug/dL (50-175) L Total Iron Binding Capacity 155 ug/dL (250-450) L Percent Iron Saturation 8 % (15-50) L Unsaturated Iron Binding 143 ug/dL (112-346) Ferritin 874 NG/ML (8-388) H Carcinoembryonic Antigen Pending Folate 50.6 NG/ML (8.6-58.9) Thyroid Stimulating Hormone (TSH) 0.036 uiU/mL (0.358-3.740) Vancomycin Level Trough 22.5 ug/mL (5.0-12.0) H Current Medications Medications (Trade) Dose Ordered Sig/Angelika Route PRN Reason Start Time Stop Time Status Last Admin Dose Admin Acetaminophen (Tylenol) 650 mg Q6H PRN ORAL Mild Pain (Pain Scale 1-3) 04/12/20 02:45 05/12/20 02:44 Acetaminophen (Tylenol) 650 mg Q6H PRN ORAL FEVER 04/12/20 16:30 05/12/20 16:29 04/13/20 20:16 Albuterol/ Ipratropium (Albuterol/ Ipratropium) 3 ml Q4H PRN INH Shortness of Breath 04/12/20 04:30 04/17/20 04:29 Allopurinol (allopurinoL) 300 mg DAILY ORAL 04/12/20 09:00 05/12/20 08:59 04/13/20 08:28 Baclofen (Lioresal) 10 mg THREE TIMES A DAY ORAL 04/12/20 09:00 05/12/20 08:59 04/13/20 18:06 Chlorhexidine Gluconate (Christy-Hex 2%) 1 applic DAILY@1999 TOPIC 04/12/20 20:00 07/11/20 19:59 04/13/20 20:14 Diltiazem HCl (Cardizem Tab) 30 mg QID@0000,0600,1200,1800 ORAL 04/12/20 06:00 05/12/20 05:59 04/13/20 00:28 Folic Acid (Folate) 1 mg DAILY ORAL 04/12/20 09:00 05/12/20 08:59 04/13/20 08:28 Magnesium Oxide (Mag-Ox 400mg) 400 mg THREE TIMES A DAY ORAL 04/12/20 13:00 04/14/20 12:59 04/13/20 18:06 Morphine Sulfate (Morphine Sulfate) 1 mg Q3H PRN IVP Moderate Pain (Pain Scale 4-6) 04/12/20 02:45 04/19/20 02:44 Morphine Sulfate (Morphine Sulfate) 2 mg Q3H PRN IVP Severe Pain (Pain Scale 7-10) 04/12/20 02:45 04/19/20 02:44 04/13/20 20:15 Pantoprazole (Protonix) 40 mg DAILY ORAL 04/12/20 09:00 05/12/20 08:59 04/13/20 08:28 Vancomycin HCl (Vanco pharmacy to dose) 1 ea DAILY PRN MISC Per rx protocol 04/12/20 04:15 05/12/20 04:14 Vancomycin HCl 1 gm/Dextrose 275 ml @ 183.708 mls/hr Q12HR@1100,2300 IVPB 04/13/20 23:00 04/18/20 22:59 04/13/20 22:22 Marko Rivera MD Apr 14, 2020 00:00
--- NOTE | 2020-04-14 00:13 | NUR ---
NURSE NOTES: Patient noted with decreased BP 86/53, attempted to recheck multiple times with consistent result mid 80s SBP and mid 50's DBP. Patient is drowsy but easily arousable to name and no change in mentation. Patient refused to be put in trendelenburg position due to back pain. Dr. Dykes notified of decreased BP and HR of 120. Received order for 1L NS bolus. Administered and will re-check. Changed eaton catheter drainage bag for urine collection.
--- NOTE | 2020-04-14 01:30 | NUR ---
NURSE NOTES: Patient BP and HR improved. BP 101/60 and HR 94. No acute distress at this time. Will monitor.
[2020-04-14 04:49] LABS: BASOPHILS % (AUTO) 3.2 % (0.0-2.0); EOSINOPHILS % (AUTO) 0.7 % (0.0-3.0); HEMATOCRIT 25.7 % (37.0-47.0); HEMOGLOBIN 8.8 G/DL (12.0-16.0); LYMPHOCYTES % (AUTO) 23.4 % (20.0-45.0); MEAN CORPUSCULAR VOLUME 80 FL (80-99); MONOCYTES % (AUTO) 10.5 % (1.0-10.0); NEUTROPHILS % (AUTO) 62.2 % (45.0-75.0); PLATELET COUNT 394 K/UL (150-450); RED CELL DISTRIBUTION WIDTH 18.3 % (11.6-14.8); WHITE BLOOD COUNT 4.3 K/UL (4.8-10.8)
[2020-04-14 05:02] LABS: ANION GAP 8 mmol/L (5-15); BLOOD UREA NITROGEN 5 mg/dL (7-18); CALCIUM 8.6 MG/DL (8.5-10.1); CARBON DIOXIDE 26 MMOL/L (21-32); CHLORIDE 97 MMOL/L (98-107); CREATININE 0.6 MG/DL (0.55-1.30); PHOSPHORUS 2.7 MG/DL (2.5-4.9); POTASSIUM 4.1 MMOL/L (3.5-5.1); SODIUM 131 MMOL/L (136-145)
[2020-04-14] MEDS: dilTIAZem HCl 30mg tab ORAL SCH ×4 (05:39→18:00)
--- NOTE | 2020-04-14 07:23 | NUR ---
NURSE HAND-OFF: Important Events on Shift:[fever x1, urine culture collected, 1L NS bolus for decreased BP- improved] Patient Status: [asleep] Diet: [Regular] Pending Orders: [] Pending Results/Labs:[] Pending MD notification:[] Latest Vital Signs: Temperature 98.2 , Pulse 101 , B/P 116 /69 , Respiratory Rate 16 , O2 SAT 100 , Nasal Cannula, O2 Flow Rate 1.0 . Vital Sign Comment: [] Latest Urbina Fall Score: 35 Fall Risk: Medium Risk Safety Measures: Call light Within Reach, Bed Alarm Zone 1, Side Rails Side Rails x3, Bed position Low and Locked. Fall Precautions: Yellow Socks Yellow Gown Door Sign Patient Fall Education Report given to [Haider GARCIA RN].
--- NOTE | 2020-04-14 07:40 | NUR ---
NURSE NOTES: Pt. received from REA Tabares. Pt. AAOx4, breathing even and unlabored on room air, no indications of SOB, no complaints of pain at this time. Morales noted, draining yellow urine well. PICC LINDEN noted, dressing CDI. Bed low and locked, side rails x3 up, bed alarm active, and call light in reach.
[2020-04-14] MEDS: Magnesium Oxide 400mg tab ORAL SCH (08:45)
[2020-04-14] MEDS: Vancomycin 1gm/D5W 275ml IVPB SCH ×4 (10:01→22:33)
--- NOTE | 2020-04-14 10:21 | NUR ---
RD ASSESSMENT & RECOMMENDATIONS SEE CARE ACTIVITY FOR COMPLETE ASSESSMENT DAILY ESTIMATED NEEDS: Needs based on Wound/ 68kg 25-30 kcals/kg 1515-7891 total kcals 1.25-1.5 g protein/kg 85-102 g total protein 25-30 mL/kg 3756-1393 total fluid mLs NUTRITION DIAGNOSIS: Increased kcal/prot/micronutrients needs R/T wound healing as evidenced by pt admitted w/ sacral wound, stage 2 per documentation. CURRENT DIET:REGULAR PO DIET RECOMMENDATIONS: Maintain regular diet ADDITIONAL RECOMMENDATIONS: * Calibrated bedscale wt * Wound healing: MVI x 1, Vit C 250mg QD LELO BID * Ensure Enlive x 1 w/ variable intake (350kcal/20g prot) * Monitor lytes, replete as needed
--- NOTE | 2020-04-14 10:46 | Nephrology Progress Note ---
Assessment/Plan Plan #hypokalemia- #hypomagnesemia #Acute on chronic anemia #h/p non- hodgkins lymphoma #possible sepsis #+ COVID - Pulmonary eval - prbc transfusion prn - replete lytes - hemo-onc eval - ID eval - continue with IV abx - monitor CBC - avoid nephrotoxins times spent 65 min Subjective ROS Limited/Unobtainable: No Constitutional: Reports: weakness Subjective + COVID ID and pulm consulted Objective Objective Last 24 Hour Vital Signs Date Time Temp Pulse Resp B/P (MAP) Pulse Ox O2 Delivery O2 Flow Rate FiO2 04/14/20 09:15 100.8 04/14/20 05:39 101 116/69 04/14/20 04:00 98.2 101 16 116/69 (85) 100 04/14/20 01:48 94 16 101/60 (74) 04/14/20 00:00 98.4 120 14 86/53 (64) 99 04/13/20 23:57 120 86/53 04/13/20 21:00 Nasal Cannula 1.0 04/13/20 20:46 100.0 04/13/20 20:41 96 Nasal Cannula 2.0 28 04/13/20 20:41 89 16 96 Nasal Cannula 2.0 28 04/13/20 20:00 100.2 135 20 110/60 (77) 96 04/13/20 18:00 104 106/65 04/13/20 18:00 98.6 104 20 106/65 (79) 96 04/13/20 16:00 98.4 78 20 121/74 (90) 97 04/13/20 12:00 109 93/63 04/13/20 12:00 97.3 109 20 93/63 (73) 95 Intake and Output 04/13/20 04/14/20 19:00 07:00 Intake Total 960 ml 1875.000 ml Output Total 1400 ml 2300 ml Balance -440 ml -425.000 ml Intake Oral 960 ml 600 ml IV Total 1275.000 ml Output Urine Total 1400 ml 2300 ml Laboratory Tests 04/13/20 18:55: Vancomycin Level Trough 22.5H 04/14/20 04:10: White Blood Count 4.3L, Red Blood Count 3.20L, Hemoglobin 8.8L, Hematocrit 25.7L , Mean Corpuscular Volume 80, Mean Corpuscular Hemoglobin 27.5, Mean Corpuscular Hemoglobin Concent 34.1, Red Cell Distribution Width 18.3H, Platelet Count 394, Mean Platelet Volume 4.7L, Neutrophils (%) (Auto) 62.2, Lymphocytes (%) (Auto) 23.4, Monocytes (%) (Auto) 10.5H, Eosinophils (%) (Auto) 0.7, Basophils (%) (Auto) 3.2H, Sodium Level 131L, Potassium Level 4.1, Chloride Level 97L, Carbon Dioxide Level 26, Anion Gap 8, Blood Urea Nitrogen 5L, Creatinine 0.6, Estimat Glomerular Filtration Rate > 60, Glucose Level 89, Calcium Level 8.6, Phosphorus Level 2.7, Magnesium Level 1.9 Height (Feet): 5 Height (Inches): 7.00 Weight (Pounds): 150 General Appearance: no apparent distress EENT: PERRL/EOMI, normal ENT inspection Neck: non-tender, normal alignment Cardiovascular: normal peripheral pulses, normal rate Respiratory/Chest: chest wall non-tender, lungs clear Abdomen: normal bowel sounds, non tender Neurologic: alert, oriented x 3 Kallie Dykes M.D. Apr 14, 2020 10:46
--- NOTE | 2020-04-14 11:17 | NUR ---
NURSE NOTES: Pt. Covid positive, messages left for Dr. Dykes and Dr. Rivera. Awaiting return call. Charge nurse aware.
--- NOTE | 2020-04-14 14:41 | NUR ---
CASE MANAGEMENT:REVIEW SI;COVID POSITIVE 04/12/20. ANEMIA. 102.6 120 20 99/53 97% ON RA H/H 8.8/25.7 NA131 CRP 7.1 IS;IVF D5W @ 50 ML/HR CEFEPIME IV Q12 IVF NS BOLUS TYLENOL PO Q6 PRN PROTONIX PO QD MAG OX PO TID MED SURG STATUS DCP;FROM [facility]
[2020-04-14] MEDS: Morphine Sulfate 2mg/ml Inj(IV/IM USE ONLY) IVP PRN ×2 (15:15→21:13)
--- NOTE | 2020-04-14 16:32 | General Progress Note ---
Subjective Constitutional: Denies: no symptoms, chills, diaphoresis, fever, malaise, weakness, other HEENT: Denies: no symptoms, eye pain, blurred vision, tearing, double vision, ear pain, ear discharge, nose pain, nose congestion, throat pain, throat swelling, mouth pain, mouth swelling, other Cardiovascular: Denies: no symptoms, chest pain, edema, irregular heart rate, lightheadedness, palpitations, syncope, other Respiratory: Denies: no symptoms, cough, orthopnea, shortness of breath, SOB with excertion, SOB at rest, sputum, stridor, wheezing, other Gastrointestinal/Abdominal: Denies: no symptoms, abdomen distended, abdominal pain, black stools, tarry stools, blood in stool, constipated, diarrhea, difficulty swallowing, nausea, poor appetite, poor fluid intake, rectal bleeding, vomiting, other Genitourinary: Denies: no symptoms, burning, discharge, frequency, flank pain, hematuria, incontinence, pain, urgency, other Neurologic/Psychiatric: Denies: no symptoms, anxiety, depressed, emotional problems, headache, numbness, paresthesia, pre-existing deficit, seizure, tingling, tremors, weakness, other Endocrine: Denies: no symptoms, excessive sweating, flushing, intolerance to cold, intolerance to heat, increased hunger, increased thirst, increased urine, unexplained weight gain, unexplained weight loss, other Hematologic/Lymphatic: Denies: no symptoms, anemia, easy bleeding, easy bruising, other Allergies: Coded Allergies: No Known Allergies (Unverified , 04/11/20) Subjective Subjectively doing well Covid19+ Febrile to 100.2 yesterday Objective Last 24 Hour Vital Signs Date Time Temp Pulse Resp B/P (MAP) Pulse Ox O2 Delivery O2 Flow Rate FiO2 04/14/20 12:44 102 99/53 04/14/20 09:15 100.8 04/14/20 09:00 Room Air 04/14/20 08:00 102.6 120 20 110/60 (77) 97 04/14/20 05:39 101 116/69 04/14/20 04:00 98.2 101 16 116/69 (85) 100 04/14/20 01:48 94 16 101/60 (74) 04/14/20 00:00 98.4 120 14 86/53 (64) 99 04/13/20 23:57 120 86/53 04/13/20 21:00 Nasal Cannula 1.0 04/13/20 20:46 100.0 04/13/20 20:41 96 Nasal Cannula 2.0 28 04/13/20 20:41 89 16 96 Nasal Cannula 2.0 28 04/13/20 20:00 100.2 135 20 110/60 (77) 96 04/13/20 18:00 104 106/65 04/13/20 18:00 98.6 104 20 106/65 (79) 96 Intake and Output 04/13/20 04/14/20 19:00 07:00 Intake Total 960 ml 1875.000 ml Output Total 1400 ml 2300 ml Balance -440 ml -425.000 ml Intake Oral 960 ml 600 ml IV Total 1275.000 ml Output Urine Total 1400 ml 2300 ml Laboratory Tests 04/13/20 18:55: Vancomycin Level Trough 22.5H 04/14/20 04:10: White Blood Count 4.3L, Red Blood Count 3.20L, Hemoglobin 8.8L, Hematocrit 25.7L , Mean Corpuscular Volume 80, Mean Corpuscular Hemoglobin 27.5, Mean Corpuscular Hemoglobin Concent 34.1, Red Cell Distribution Width 18.3H, Platelet Count 394, Mean Platelet Volume 4.7L, Neutrophils (%) (Auto) 62.2, Lymphocytes (%) (Auto) 23.4, Monocytes (%) (Auto) 10.5H, Eosinophils (%) (Auto) 0.7, Basophils (%) (Auto) 3.2H, Sodium Level 131L, Potassium Level 4.1, Chloride Level 97L, Carbon Dioxide Level 26, Anion Gap 8, Blood Urea Nitrogen 5L, Creatinine 0.6, Estimat Glomerular Filtration Rate > 60, Glucose Level 89, Calcium Level 8.6, Phosphorus Level 2.7, Magnesium Level 1.9, C-Reactive Protein, Quantitative 7.1H Height (Feet): 5 Height (Inches): 7.00 Weight (Pounds): 150 General Appearance: no apparent distress, alert EENT: PERRL/EOMI Neck: supple Cardiovascular: normal rate, regular rhythm Respiratory/Chest: lungs clear, normal breath sounds Abdomen: non tender, soft 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 History of lymphoma per patient and is receiving chemo tx, last known to be February 2020. - 2U PRBCs ordered and transfused - Repeat hb stable - up to 9.3 - Rectic count wnl - Iron and Iron sat low, Ferritin wnl - No active signs of bleeding - Hematology consulted, appreciate recs - CTM for signs of bleeding - Patient will need colonoscopy as outpatient in the future #Hx of Sepsis 2' port infection #SIRS (febrile, tachycardic) #COVID 19+ - Per patient she is to continue on Vancomycin till 04/25 - Port has been removed at OSH - BC, UC and CXR - Cefepime (04/14 - ) #Hx of Lymphoma - All information per patient, not discussed with outpatient onc - Oncology following, appreciate recs #Hypokalemia #hypomagnesia - Lytes replaced #Chronic Back pain - Resume Baclofen, norco, tramadol Full Code Regular Diet Time spent is 33 minutes with approximately 19 minutes with counseling and care coordination. D/w consultants and nursing staff. time of note does not reflect time of encounter. Kaylyn Mak M.D. Apr 14, 2020 16:32
--- NOTE | 2020-04-14 19:26 | NUR ---
NURSE NOTES: Received patient in bed, awake, alert, oriented x4, on room air, PICC line in the right upper arm, patient has a Morales, secured, patient is able to make her needs known, call light is within reach, bed is lowered, locked alarm is on, will continue to monitor for comfort and safety.
--- NOTE | 2020-04-14 19:28 | NUR ---
NURSE HAND-OFF: Important Events on Shift:[]Pt. covid positive, notified Dr. Dykes and Dr. Gee Patient Status: awake, stable Diet: regular Pending Orders: na Pending Results/Labs:BMP CRP Mg Ph vanc trough Pending MD notification:na Latest Vital Signs: Temperature 99.1 , Pulse 106 , B/P 135 /91 , Respiratory Rate 18 , O2 SAT 99 , Room Air, O2 Flow Rate 1.0 . Vital Sign Comment: stable Latest Urbina Fall Score: 35 Fall Risk: Medium Risk Safety Measures: Call light Within Reach, Bed Alarm Zone 1, Side Rails Side Rails x3, Bed position Low and Locked. Fall Precautions: Yellow Socks Yellow Gown Door Sign Patient Fall Education Report given to REA Man.
[2020-04-14] MEDS: Dyna-Hex 2% Top Sol 2oz TOPIC SCH (20:22)
[2020-04-15] VITALS (7 sets, daily range): BP systolic 93–127; BP diastolic 55–81
[2020-04-15] MEDS: dilTIAZem HCl 30mg tab ORAL SCH ×4 (05:44→18:00)
[2020-04-15 06:12] LABS: ANION GAP 6 mmol/L (5-15); BLOOD UREA NITROGEN 4 mg/dL (7-18); CALCIUM 8.7 MG/DL (8.5-10.1); CARBON DIOXIDE 27 MMOL/L (21-32); CHLORIDE 107 MMOL/L (98-107); CREATININE 0.5 MG/DL (0.55-1.30); PHOSPHORUS 3.9 MG/DL (2.5-4.9); POTASSIUM 3.4 MMOL/L (3.5-5.1); SODIUM 140 MMOL/L (136-145)
--- NOTE | 2020-04-15 07:09 | NUR ---
NURSE HAND-OFF: Important Events on Shift:uneventful, medicated for pain as prescribed. Patient Status: full Diet: regular Pending Orders: Pending Results/Labs: Pending MD notification: Latest Vital Signs: Temperature 97.9 , Pulse 78 , B/P 105 /59 , Respiratory Rate 20 , O2 SAT 97 , Nasal Cannula, O2 Flow Rate 1.0 . Vital Sign Comment: Latest Urbina Fall Score: 35 Fall Risk: Medium Risk Safety Measures: Call light Within Reach, Bed Alarm Zone 1, Side Rails Side Rails x3, Bed position Low and Locked. Fall Precautions: Yellow Socks Yellow Gown Door Sign Patient Fall Education Report given to Ping LUCIA
--- NOTE | 2020-04-15 08:08 | NUR ---
NURSE NOTES: patient awake and alert and oriented,respirations unlabored.02 on at 2L N/C. E[place] catheter is in place with yellow urine noted in eaton bag. IV fluids infusing as ordered.Patient sitting up in bed and eating breakfast.Bed alarm on,call light within reach.
[2020-04-15] MEDS: Morphine Sulfate 2mg/ml Inj(IV/IM USE ONLY) IVP PRN ×3 (10:38→22:27)
--- NOTE | 2020-04-15 11:38 | NUR ---
CASE MANAGEMENT:REVIEW 04/15/20 SI: COVID INFECTION. ANEMIA 97.5 102 20 93/62 98% ON 1L/NC K-3.4 MAG-1.6 IS: IV CEFEPIME Q12 IV VANCOMYCIN Q12 IVF@50/HR PROTONIX PO QD ALLOPURINOL PO QD CARDIZEM PO QID IV MORPHINE Q3HRS PRN : MED/SURG STATUS 4 EAST DCP: FROM [facility]
[2020-04-15] MEDS: Vancomycin 1gm/D5W 275ml IVPB SCH ×4 (11:52→22:27)
--- NOTE | 2020-04-15 13:06 | Nephrology Progress Note ---
Assessment/Plan Plan #hypokalemia- #hypomagnesemia #Acute on chronic anemia #h/p non- hodgkins lymphoma #possible sepsis #+ COVID - Pulmonary eval - prbc transfusion prn - replete lytes - hemo-onc eval - ID eval - continue with IV abx - monitor CBC - avoid nephrotoxins times spent 65 min Subjective ROS Limited/Unobtainable: No Constitutional: Reports: weakness Subjective + COVID ID and pulm consulted Objective Objective Last 24 Hour Vital Signs Date Time Temp Pulse Resp B/P (MAP) Pulse Ox O2 Delivery O2 Flow Rate FiO2 04/15/20 11:54 96 110/68 04/15/20 10:30 103/63 (76) 04/15/20 09:00 Nasal Cannula 1.0 04/15/20 08:00 97.5 102 20 93/62 (72) 98 04/15/20 06:59 97.9 04/15/20 05:44 78 105/59 04/15/20 04:00 97.9 78 20 105/59 (74) 97 04/15/20 01:20 99.3 04/15/20 00:00 99.3 104 20 105/55 (72) 97 04/15/20 00:00 104 105/55 04/14/20 21:44 100.0 04/14/20 21:44 102.0 04/14/20 21:05 Nasal Cannula 1.0 04/14/20 20:00 102.0 112 20 122/80 (94) 96 04/14/20 16:00 99.1 106 18 135/91 (106) 99 Intake and Output 04/14/20 04/15/20 19:00 07:00 Intake Total 360 ml Output Total 2100 ml Balance -1740 ml Intake Oral 360 ml Output Urine Total 2100 ml # Voids 2 Laboratory Tests 04/14/20 17:00: Stool Occult Blood Negative 04/15/20 05:30: Sodium Level 140, Potassium Level 3.4L, Chloride Level 107, Carbon Dioxide Level 27, Anion Gap 6, Blood Urea Nitrogen 4L, Creatinine 0.5L, Estimat Glomerular Filtration Rate > 60, Glucose Level 92, Calcium Level 8.7, Phosphorus Level 3.9, Magnesium Level 1.6L 04/15/20 10:25: Vancomycin Level Trough 16.7H Height (Feet): 5 Height (Inches): 7.00 Weight (Pounds): 150 Kallie Dykes M.D. Apr 15, 2020 13:06
--- NOTE | 2020-04-15 14:52 | General Progress Note ---
Subjective Date patient seen: Apr 15, 2020 Time patient seen: 10:41 Constitutional: Denies: no symptoms, chills, diaphoresis, fever, malaise, weakness, other HEENT: Denies: no symptoms, eye pain, blurred vision, tearing, double vision, ear pain, ear discharge, nose pain, nose congestion, throat pain, throat swelling, mouth pain, mouth swelling, other Cardiovascular: Denies: no symptoms, chest pain, edema, irregular heart rate, lightheadedness, palpitations, syncope, other Respiratory: Denies: no symptoms, cough, orthopnea, shortness of breath, SOB with excertion, SOB at rest, sputum, stridor, wheezing, other Gastrointestinal/Abdominal: Denies: no symptoms, abdomen distended, abdominal pain, black stools, tarry stools, blood in stool, constipated, diarrhea, difficulty swallowing, nausea, poor appetite, poor fluid intake, rectal bleeding, vomiting, other Genitourinary: Denies: no symptoms, burning, discharge, frequency, flank pain, hematuria, incontinence, pain, urgency, other Neurologic/Psychiatric: Denies: no symptoms, anxiety, depressed, emotional problems, headache, numbness, paresthesia, pre-existing deficit, seizure, tingling, tremors, weakness, other Endocrine: Denies: no symptoms, excessive sweating, flushing, intolerance to cold, intolerance to heat, increased hunger, increased thirst, increased urine, unexplained weight gain, unexplained weight loss, other Hematologic/Lymphatic: Denies: no symptoms, anemia, easy bleeding, easy bruising, other Allergies: Coded Allergies: No Known Allergies (Unverified , 04/11/20) Subjective Febrile yesterday evening Otherwise no acute events overnight Not requiring oxygen Doesn't have much appetite Objective Last 24 Hour Vital Signs Date Time Temp Pulse Resp B/P (MAP) Pulse Ox O2 Delivery O2 Flow Rate FiO2 04/15/20 12:00 98.2 96 18 110/68 (82) 97 04/15/20 11:54 96 110/68 04/15/20 10:30 103/63 (76) 04/15/20 09:00 Nasal Cannula 1.0 04/15/20 08:00 97.5 102 20 93/62 (72) 98 04/15/20 07:35 101 18 98 Room Air 21 04/15/20 06:59 97.9 12/12/20 05:44 78 105/59 04/15/20 04:00 97.9 78 20 105/59 (74) 97 04/15/20 01:20 99.3 04/15/20 00:00 99.3 104 20 105/55 (72) 97 04/15/20 00:00 104 105/55 04/14/20 21:44 100.0 04/14/20 21:44 102.0 04/14/20 21:05 Nasal Cannula 1.0 04/14/20 20:00 102.0 112 20 122/80 (94) 96 04/14/20 16:00 99.1 106 18 135/91 (106) 99 Intake and Output 04/14/20 04/15/20 19:00 07:00 Intake Total 360 ml Output Total 2100 ml Balance -1740 ml Intake Oral 360 ml Output Urine Total 2100 ml # Voids 2 Laboratory Tests 04/14/20 17:00: Stool Occult Blood Negative 04/15/20 05:30: Sodium Level 140, Potassium Level 3.4L, Chloride Level 107, Carbon Dioxide Level 27, Anion Gap 6, Blood Urea Nitrogen 4L, Creatinine 0.5L, Estimat Glomerular Filtration Rate > 60, Glucose Level 92, Calcium Level 8.7, Phosphorus Level 3.9, Magnesium Level 1.6L 04/15/20 10:25: Vancomycin Level Trough 16.7H Height (Feet): 5 Height (Inches): 7.00 Weight (Pounds): 150 General Appearance: no apparent distress, alert EENT: PERRL/EOMI Neck: supple Cardiovascular: normal rate, regular rhythm Respiratory/Chest: lungs clear, normal breath sounds Abdomen: non tender, soft Extremities: other Neurologic: top steep tender II-XII grossly normal, oriented x 3 Skin: warm/dry Assessment/Plan Status: stable Assessment/Plan: #Hx of Sepsis 2' port infection #SIRS (febrile, tachycardic) #COVID 19+ - Per patient she is to continue on Vancomycin till 04/25 - Port has been removed at OSH - , UC - ngtd - CXR with diffuse non-specific inflammatory/infectious process - Cefepime (04/14 - ) - ID Consult, appreciate recs #Acute blood loss anemia - resolving #Normocytic anemia Patient presented with Hb 6.7 with normal MCV. History of lymphoma per patient and is receiving chemo tx, last known to be February 2020. - 2U PRBCs ordered and transfused on admission - Hb Stable - Rectic count wnl - Iron and Iron sat low, Ferritin wnl - No active signs of bleeding - Hematology consulted, appreciate recs - CTM for signs of bleeding - Patient will need colonoscopy as outpatient in the future #Hx of Lymphoma - All information per patient - Oncology following, appreciate recs - Can continue current therapy with outpatient onc #Hypokalemia #hypomagnesia - Lytes replaced #Chronic Back pain - Resume Baclofen, norco, tramadol Full Code Regular Diet Time spent is 32 minutes with approximately 17 minutes with counseling and care coordination. D/w consultants and nursing staff. time of note does not reflect time of encounter. Kaylyn Mak M.D. Apr 15, 2020 14:52
--- NOTE | 2020-04-15 18:30 | NUR ---
NURSE NOTES: Patient watching television,pain pain level is less.IV fluids continue to infuse as ordered.bed alarm is on,call light within reach.
--- NOTE | 2020-04-15 19:25 | NUR ---
NURSE HAND-OFF: Neena LUCIA Important Events on Shift:[]patient receive Kdur 40meq po x1 for Potassium of 3.4 magnesium 2gm IV for magnesium level 0f 1.6. Patient receive morphine for pain. Patient Status: stable[] Diet: regular[] Pending Orders: [] Pending Results/Labs:[] Pending MD notification:[] Latest Vital Signs: Temperature 98.5 , Pulse 100 , B/P 109 /72 , Respiratory Rate 18 , O2 SAT 97 , Nasal Cannula, O2 Flow Rate 1.0 . Vital Sign Comment: [] Latest Urbina Fall Score: 35 Fall Risk: Medium Risk Safety Measures: Call light Within Reach, Bed Alarm Zone 1, Side Rails Side Rails x3, Bed position Low and Locked. Fall Precautions: Yellow Socks Yellow Gown Door Sign Patient Fall Education Report given to [].
--- NOTE | 2020-04-15 19:46 | NUR ---
NURSE NOTES: Received patient in bed, awake, alert, oriented x4, able to make her needs known, on bed rest, IV site is clean dry and intact, Morales catheter is intact and secured, call light is within reach, bed is lowered, locked, alarm is on, will continue to monitor for comfort and safety.
[2020-04-15] MEDS: Dyna-Hex 2% Top Sol 2oz TOPIC SCH (20:00)
--- NOTE | 2020-04-15 20:43 | Infectious Diseases Prog Note ---
Assessment/Plan Assessment/Plan A) 1) covid-19 virus infection with fevers, no hypoxia 2) hx lymphoma and chemo, history of port line infection and finishing vancomycin treatment course - ? end date 3) hx anemia 4) allergies - nkda, fh-nc, sh-negative 5) d/w RN 6) notes and records noted P) 1) no indication for covid-19 treatment currently, no hypoxia 2) finish vancomycin for previous port-line infection, ? end date, need outside records 3) monitor labs, monitor for hypoxia, monitor feves 4) will f/u 5) d/w patient Subjective Constitutional: Reports: fever - less today ; Denies: chills HEENT: Denies: congestion Respiratory: Denies: shortness of breath Cardiovascular: Denies: chest pain Gastrointestinal/Abdominal: Denies: nausea, vomiting, diarrhea Genitourinary: Reports: other - no eaton Neurologic: Denies: headache Psychiatric: Denies: depression Skin: Denies: rash Hematologic: Denies: bleeding Musculoskeletal: Denies: pain Allergies: Coded Allergies: No Known Allergies (Unverified , 04/11/20) Objective Last 24 Hour Vital Signs Date Time Temp Pulse Resp B/P (MAP) Pulse Ox O2 Delivery O2 Flow Rate FiO2 04/15/20 19:13 100 18 97 Room Air 21 04/15/20 19:13 97 Room Air 21 04/15/20 18:00 112 109/72 04/15/20 16:00 98.5 100 19 122/81 (95) 97 04/15/20 12:00 98.2 96 18 110/68 (82) 97 04/15/20 11:54 96 110/68 04/15/20 10:30 103/63 (76) 04/15/20 09:00 Nasal Cannula 1.0 04/15/20 08:00 97.5 102 20 93/62 (72) 98 04/15/20 07:35 101 18 98 Room Air 21 04/15/20 06:59 97.9 04/15/20 05:44 78 105/59 04/15/20 04:00 97.9 78 20 105/59 (74) 97 04/15/20 01:20 99.3 04/15/20 00:00 99.3 104 20 105/55 (72) 97 12/12/20 00:00 104 105/55 04/14/20 21:44 100.0 04/14/20 21:44 102.0 04/14/20 21:05 Nasal Cannula 1.0 Height (Feet): 5 Height (Inches): 7.00 Weight (Pounds): 150 General Appearance: no acute distress HEENT: normocephalic, atraumatic, anicteric, mucous membranes moist Respiratory/Chest: lungs clear, normal breath sounds, no respiratory distress, no accessory muscle use Cardiovascular: normal rate, regular rhythm, regularly irregular, no gallop/murmur Abdomen: soft, non tender, no organomegaly, non distended Genitourinary: other - no eaotn Extremities: no cyanosis Skin: no rash Neurologic/Psychiatric: abnormal gait, oriented x 3, responsive Lymphatic: no neck adenopathy Musculoskeletal: no effusion Chest x-ray - 04/13/20 - Findings: The cardiomediastinal silhouette is within normal limits. There is diffuse interstitial prominence. No airspace consolidation. No pneumothorax or pleural effusion. No acute osseous abnormality. Right approach PICC terminates in the expected location of mid SVC IMPRESSION: Diffuse interstitial prominence, which is nonspecific but may be related to peribronchial thickening in the setting of infectious/inflammatory airways disease or interstitial edema. Microbiology Date/Time Source Procedure Growth Status 04/14/20 00:45 Urine,Clean Catch Urine Culture - Preliminary NO GROWTH Resulted 04/12/20 19:00 Blood Blood Culture - Preliminary NO GROWTH AFTER 48 HOURS Resulted 04/12/20 17:00 Nasopharynx Coronavirus COVID-19 PCR (KENDELL) - Final Complete 04/12/20 01:30 Rectum - Final NO CARBAPENEM-RESISTANT ENTEROBACTERI... Complete Microbiology Date/Time Source Procedure Growth Status 04/14/20 00:45 Urine,Clean Catch Urine Culture - Preliminary NO GROWTH Resulted Labs Test 04/13/20 05:40 04/13/20 18:55 04/14/20 04:10 04/14/20 17:00 White Blood Count 5.3 K/UL (4.8-10.8) 4.3 K/UL (4.8-10.8) Red Blood Count 3.36 M/UL (4.20-5.40) 3.20 M/UL (4.20-5.40) Hemoglobin 9.3 G/DL (12.0-16.0) 8.8 G/DL (12.0-16.0) Hematocrit 27.6 % (37.0-47.0) 25.7 % (37.0-47.0) Mean Corpuscular Volume 82 FL (80-99) 80 FL (80-99) Mean Corpuscular Hemoglobin 27.7 PG (27.0-31.0) 27.5 PG (27.0-31.0) Mean Corpuscular Hemoglobin Concent 33.7 G/DL (32.0-36.0) 34.1 G/DL (32.0-36.0) Red Cell Distribution Width 17.9 % (11.6-14.8) 18.3 % (11.6-14.8) Platelet Count 477 K/UL (150-450) 394 K/UL (150-450) Mean Platelet Volume 5.1 FL (6.5-10.1) 4.7 FL (6.5-10.1) Neutrophils (%) (Auto) 71.6 % (45.0-75.0) 62.2 % (45.0-75.0) Lymphocytes (%) (Auto) 19.6 % (20.0-45.0) 23.4 % (20.0-45.0) Monocytes (%) (Auto) 4.9 % (1.0-10.0) 10.5 % (1.0-10.0) Eosinophils (%) (Auto) 1.8 % (0.0-3.0) 0.7 % (0.0-3.0) Basophils (%) (Auto) 2.0 % (0.0-2.0) 3.2 % (0.0-2.0) Differential Total Cells Counted 100 Neutrophils % (Manual) 68 % (45-75) Lymphocytes % (Manual) 25 % (20-45) Monocytes % (Manual) 6 % (1-10) Eosinophils % (Manual) 0 % (0-3) Basophils % (Manual) 0 % (0-2) Band Neutrophils 1 % (0-8) Other Cell Type Pathologist review Platelet Estimate Increased Platelet Morphology Normal Hypochromasia 1+ Anisocytosis 1+ Reticulocyte Count 0.8 % (0.5-2.0) Sodium Level 133 MMOL/L (136-145) 131 MMOL/L (136-145) Potassium Level 3.9 MMOL/L (3.5-5.1) 4.1 MMOL/L (3.5-5.1) Chloride Level 100 MMOL/L (98-107) 97 MMOL/L (98-107) Carbon Dioxide Level 26 MMOL/L (21-32) 26 MMOL/L (21-32) Anion Gap 8 mmol/L (5-15) 8 mmol/L (5-15) Blood Urea Nitrogen 4 mg/dL (7-18) 5 mg/dL (7-18) Creatinine 0.5 MG/DL (0.55-1.30) 0.6 MG/DL (0.55-1.30) Estimat Glomerular Filtration Rate > 60 mL/min (>60) > 60 mL/min (>60) Glucose Level 89 MG/DL (74-106) 89 MG/DL (74-106) Calcium Level 8.7 MG/DL (8.5-10.1) 8.6 MG/DL (8.5-10.1) Phosphorus Level 2.9 MG/DL (2.5-4.9) 2.7 MG/DL (2.5-4.9) Magnesium Level 1.6 MG/DL (1.8-2.4) 1.9 MG/DL (1.8-2.4) Iron Level 12 ug/dL (50-175) Total Iron Binding Capacity 155 ug/dL (250-450) Percent Iron Saturation 8 % (15-50) Unsaturated Iron Binding 143 ug/dL (112-346) Ferritin 874 NG/ML (8-388) Carcinoembryonic Antigen 5.1 ng/mL (0.0-4.7) Folate 50.6 NG/ML (8.6-58.9) Thyroid Stimulating Hormone (TSH) 0.036 uiU/mL (0.358-3.740) Vancomycin Level Trough 22.5 ug/mL (5.0-12.0) C-Reactive Protein, Quantitative 7.1 mg/dL (0.00-0.90) Stool Occult Blood Negative (NEGATIVE) Test 04/15/20 05:30 04/15/20 10:25 Sodium Level 140 MMOL/L (136-145) Potassium Level 3.4 MMOL/L (3.5-5.1) Chloride Level 107 MMOL/L (98-107) Carbon Dioxide Level 27 MMOL/L (21-32) Anion Gap 6 mmol/L (5-15) Blood Urea Nitrogen 4 mg/dL (7-18) Creatinine 0.5 MG/DL (0.55-1.30) Estimat Glomerular Filtration Rate > 60 mL/min (>60) Glucose Level 92 MG/DL (74-106) Calcium Level 8.7 MG/DL (8.5-10.1) Phosphorus Level 3.9 MG/DL (2.5-4.9) Magnesium Level 1.6 MG/DL (1.8-2.4) Vancomycin Level Trough 16.7 ug/mL (5.0-12.0) Laboratory Tests Test 04/15/20 05:30 04/15/20 10:25 Sodium Level 140 MMOL/L (136-145) Potassium Level 3.4 MMOL/L (3.5-5.1) L Chloride Level 107 MMOL/L (98-107) Carbon Dioxide Level 27 MMOL/L (21-32) Anion Gap 6 mmol/L (5-15) Blood Urea Nitrogen 4 mg/dL (7-18) L Creatinine 0.5 MG/DL (0.55-1.30) L Estimat Glomerular Filtration Rate > 60 mL/min (>60) Glucose Level 92 MG/DL (74-106) Calcium Level 8.7 MG/DL (8.5-10.1) Phosphorus Level 3.9 MG/DL (2.5-4.9) Magnesium Level 1.6 MG/DL (1.8-2.4) L Vancomycin Level Trough 16.7 ug/mL (5.0-12.0) H Current Medications Medications (Trade) Dose Ordered Sig/Angelika Route PRN Reason Start Time Stop Time Status Last Admin Dose Admin Acetaminophen (Tylenol) 650 mg Q6H PRN ORAL Mild Pain (Pain Scale 1-3) 04/12/20 02:45 05/12/20 02:44 04/15/20 06:27 Acetaminophen (Tylenol) 650 mg Q6H PRN ORAL FEVER 04/12/20 16:30 05/12/20 16:29 04/14/20 21:13 Albuterol/ Ipratropium (Albuterol/ Ipratropium) 3 ml Q4H PRN INH Shortness of Breath 04/12/20 04:30 04/17/20 04:29 Allopurinol (allopurinoL) 300 mg DAILY ORAL 04/12/20 09:00 05/12/20 08:59 04/15/20 10:32 Baclofen (Lioresal) 10 mg THREE TIMES A DAY ORAL 04/12/20 09:00 05/12/20 08:59 04/14/20 08:45 Cefepime HCl 2 gm/ Dextrose 100 ml @ 200 mls/hr Q12HR IVPB 04/14/20 09:00 04/21/20 08:59 04/15/20 10:32 Chlorhexidine Gluconate (Christy-Hex 2%) 1 applic DAILY@2000 TOPIC 04/12/20 20:00 07/11/20 19:59 04/14/20 20:22 Dextrose/ Electrolytes 1,000 ml @ 50 mls/hr Q20H IV 04/14/20 12:00 05/14/20 11:59 04/15/20 10:34 Diltiazem HCl (Cardizem Tab) 30 mg QID@0000,0600,1200,1800 ORAL 04/12/20 06:00 05/12/20 05:59 04/13/20 00:28 Folic Acid (Folate) 1 mg DAILY ORAL 04/12/20 09:00 05/12/20 08:59 04/15/20 10:33 Morphine Sulfate (Morphine Sulfate) 1 mg Q3H PRN IVP Moderate Pain (Pain Scale 4-6) 04/12/20 02:45 04/19/20 02:44 Morphine Sulfate (Morphine Sulfate) 2 mg Q3H PRN IVP Severe Pain (Pain Scale 7-10) 04/12/20 02:45 04/19/20 02:44 04/15/20 16:35 Pantoprazole (Protonix) 40 mg DAILY ORAL 04/12/20 09:00 05/12/20 08:59 04/15/20 10:33 Vancomycin HCl (Vanco pharmacy to dose) 1 ea DAILY PRN MISC Per rx protocol 04/12/20 04:15 05/12/20 04:14 Vancomycin HCl 1 gm/Dextrose 275 ml @ 183.708 mls/hr Q12HR@1100,2300 IVPB 04/13/20 23:00 04/18/20 22:59 04/15/20 11:52 Marko Rivera MD Apr 15, 2020 20:43
--- NOTE | 2020-04-15 23:00 | Consultation ---
DATE OF CONSULTATION: 04/13/2020 INFECTIOUS DISEASES CONSULTATION CONSULTING PHYSICIAN: Marko Rivera MD ATTENDING PHYSICIAN: Elias Palma MD REFERRING PHYSICIANS: 1. Elias Palma MD 2. Kaylyn Mak MD REASON FOR CONSULTATION: Possible sepsis, fevers, viral syndrome, possible line infection, possible UTI. CHIEF COMPLAINT: The patient's chief complaint coming in the hospital was for possible sepsis, fevers, and anemia. HISTORY OF PRESENT ILLNESS: This is a very pleasant 55-year-old female who comes in with a history of non-Hodgkin's lymphoma, history of port infection, and sepsis. Port was removed. She has been on vancomycin per the patient, unclear how long and end date of vancomycin. The patient non-Hodgkin's lymphoma. The patient presented to [facility] with fevers and anemia. COVID testing was obtained and pending. She is in COVID-19 isolation for now. As discussed, she has a history of non-Hodgkin's lymphoma and also anemia. Because of the fevers and possibly sepsis, and looks like a history of possible line infection, Infectious Disease consultation requested. I saw her and put her on vancomycin and cefepime. Cultures are pending. COVID testing pending. MAR was noted. Orders were noted. Notes were reviewed. REVIEW OF SYSTEMS: CONSTITUTIONAL: Generalized fatigue and weakness. She came with fever and chills. HEAD AND NECK: No head pain or neck pain. CARDIAC: No chest pain. GASTROINTESTINAL: No nausea, vomiting, diarrhea. GENITOURINARY: No dysuria or frequency. PULMONARY: No shortness of breath. SKIN: No rash. PAST MEDICAL HISTORY: The patient's past medical history includes the following. The patient has a past medical history of normocytic anemia, history of non-Hodgkin's lymphoma, history of outpatient treatment in the past, history of presumptive line infection, port infection, port was removed, she has been on vancomycin, unclear to what the end date is. No history of diabetes or hypertension mentioned. ALLERGIES: No known drug allergies. No antibiotic allergies. SOCIAL HISTORY: Negative for smoking. No alcohol or drug abuse. FAMILY HISTORY: Noncontributory. MEDICATIONS: Upon reviewing the MAR, she is on following medications. She is on cefepime, vancomycin, acetaminophen, folic acid, baclofen, allopurinol, diltiazem, albuterol. Antibiotics, vancomycin and cefepime. Outside medications noted and reconciliated. PHYSICAL EXAMINATION: VITAL SIGNS: Maximum temperature is 101.8. When I saw her, temperature was 97.3, pulse rate 109, respiratory rate 20, blood pressure 93/63, O2 saturation 95% on room air. GENERAL: Alert and responsive, no distress. HEAD AND NECK: Oral exam, no thrush. Eye exam, no icterus. Normocephalic. Neck is supple. No JVD. HEART: Regular. No gallop or murmur. LUNGS: Clear bilateral. No rhonchi and rales. ABDOMEN: Soft. Positive bowel sounds. Nontender. SKIN: No rash. MUSCULOSKELETAL: No effusions. Legs are without cellulitis. No septic arthritis. PERIPHERAL VASCULAR: No cyanosis or gangrene. GENITOURINARY: No Morales. LINE SITES: Without phlebitis. She had a port that was removed in the past. I believe she has a PICC line currently. NEUROLOGIC: Intact. Alert and responsive. LABORATORY AND DIAGNOSTIC DATA: White count 5.3, hemoglobin 9.3. Creatinine 0.5. Ferritin 874. CRP 7.1. UA 0 to 2 white cells. Blood cultures negative to date. SARS-COVID testing pending. Blood cultures negative to date. Imaging studies, chest x-ray with interstitial prominence, bronchial thickening. No consolidation mentioned. ASSESSMENT AND PLAN: 1. The patient has possible sepsis, fevers, questionable viral syndrome, questionable UTI. Urine is fairly benign. Questionable PICC line infection. She has a history of port infection that was removed. She has been on vancomycin, unclear end date at this time. At this time, we will continue vancomycin and cefepime empirically. Continue vancomycin and cefepime for MRSA and gram-negative coverage for possible sepsis and line infection. Await COVID testing to rule out some type of viral syndrome. COVID testing is pending. Followup on cultures and labs. Chest x-ray showed no obvious pneumonia. Monitor for hypoxia. Continue vancomycin and cefepime for now, pending workup for possible sepsis. 2. History of lymphoma, . 3. History of what sounds like port line infection that was removed, unclear emd date of vancomycin. 4. Non-Hodgkin's lymphoma. 5. Anemia. 6. No known allergies. 7. Social history is negative. 8. Family history is noncontributory. 9. MAR is noted. 10. Case was discussed with RN. 11. Continue treatment per primary consultants. Marko Rivera M.D. DR: Augusta JOB#: [id number] CC:
[2020-04-16] VITALS: BP 130/70
[2020-04-16] MEDS: dilTIAZem HCl 30mg tab ORAL SCH ×5 (00:09→17:24)
[2020-04-16 04:00] VITALS: BP 109/69
[2020-04-16 05:48] LABS: HEMATOCRIT 25.6 % (37.0-47.0); HEMOGLOBIN 8.6 G/DL (12.0-16.0); MEAN CORPUSCULAR VOLUME 82 FL (80-99); PLATELET COUNT 349 K/UL (150-450); RED BLOOD COUNT 3.14 M/UL (4.20-5.40); RED CELL DISTRIBUTION WIDTH 18.7 % (11.6-14.8)
[2020-04-16 06:10] LABS: ALANINE AMINOTRANSFERASE 11 U/L (12-78); ALBUMIN 2.4 G/DL (3.4-5.0); ALBUMIN/GLOBULIN RATIO 0.6 (1.0-2.7); ALKALINE PHOSPHATASE 136 U/L (46-116); ANION GAP 7 mmol/L (5-15); ASPARTATE AMINO TRANSFERASE 17 U/L (15-37); BILIRUBIN,TOTAL 0.5 MG/DL (0.2-1.0); BLOOD UREA NITROGEN 2 mg/dL (7-18); CALCIUM 8.6 MG/DL (8.5-10.1); CARBON DIOXIDE 27 MMOL/L (21-32); CHLORIDE 104 MMOL/L (98-107); CREATININE 0.5 MG/DL (0.55-1.30); POTASSIUM 4.1 MMOL/L (3.5-5.1); SODIUM 138 MMOL/L (136-145)
--- NOTE | 2020-04-16 07:27 | NUR ---
NURSE HAND-OFF: Important Events on Shift:uneventful, am temp 100.8, tylenol administered as ordered Patient Status: full Diet: regualr Pending Orders: Pending Results/Labs: Pending MD notification: Latest Vital Signs: Temperature 99.0 , Pulse 74 , B/P 103 /58 , Respiratory Rate 17 , O2 SAT 98 , Nasal Cannula, O2 Flow Rate 1.0 . Vital Sign Comment: Latest Urbina Fall Score: 35 Fall Risk: Medium Risk Safety Measures: Call light Within Reach, Bed Alarm Zone 1, Side Rails Side Rails x3, Bed position Low and Locked. Fall Precautions: Yellow Socks Yellow Gown Door Sign Patient Fall Education Report given to Elena LUCIA
[2020-04-16 08:00] VITALS: BP 97/59
--- NOTE | 2020-04-16 08:00 | NUR ---
NURSE NOTES: Received report from REA Chaudhary. Rounding done. Pt a/o x 4, having breakfast. No SOB noted. Denies any pain at this time. SCD is on. LINDEN PICC line dressing is dry/intact. Dressing was changed on so will be changed today. Bed in lowest position, call light within reach. Will continue to monitor.
[2020-04-16] MEDS: Morphine Sulfate 2mg/ml Inj(IV/IM USE ONLY) IVP PRN ×3 (08:25→20:34)
--- NOTE | 2020-04-16 09:52 | Nephrology Progress Note ---
Assessment/Plan Plan #hypokalemia- #hypomagnesemia #Acute on chronic anemia #h/p non- hodgkins lymphoma #possible sepsis #+ COVID - Pulmonary eval - prbc transfusion prn - replete lytes - hemo-onc eval - ID eval - continue with IV abx - monitor CBC - avoid nephrotoxins times spent 65 min Subjective ROS Limited/Unobtainable: No Constitutional: Reports: weakness HEENT: Denies: no symptoms, eye pain, blurred vision, tearing, double vision, ear pain, ear discharge, nose pain, nose congestion, throat pain, throat swelling, mouth pain, mouth swelling, other Genitourinary: Denies: no symptoms, burning, discharge, frequency, flank pain, hematuria, incontinence, pain, urgency, other Subjective febrile 100.8 + COVID ID and pulm consulted Objective Objective Last 24 Hour Vital Signs Date Time Temp Pulse Resp B/P (MAP) Pulse Ox O2 Delivery O2 Flow Rate FiO2 04/16/20 08:00 98.6 92 18 97/59 (72) 94 04/16/20 04:59 74 103/58 04/16/20 04:58 99.0 04/16/20 04:00 100.8 106 17 109/69 (82) 98 04/16/20 00:09 87 130/70 04/16/20 00:00 99.1 103 18 130/70 (90) 98 04/15/20 23:00 99.9 04/15/20 21:30 Nasal Cannula 1.0 04/15/20 20:00 99.9 109 17 127/73 (91) 98 04/15/20 19:13 100 18 97 Room Air 21 04/15/20 19:13 97 Room Air 21 04/15/20 18:00 112 109/72 04/15/20 16:00 98.5 100 19 122/81 (95) 97 04/15/20 12:00 98.2 96 18 110/68 (82) 97 04/15/20 11:54 96 110/68 04/15/20 10:30 103/63 (76) Intake and Output 04/15/20 04/16/20 19:00 07:00 Intake Total 2240 ml Output Total 1800 ml 2000 ml Balance 440 ml -2000 ml Intake Oral 1640 ml IV Total 600 ml Output Urine Total 1800 ml 2000 ml # Voids 2 Laboratory Tests 04/15/20 10:25: Vancomycin Level Trough 16.7H 04/16/20 04:30: White Blood Count 3.0L, Red Blood Count 3.14L, Hemoglobin 8.6L, Hematocrit 25.6L , Mean Corpuscular Volume 82, Mean Corpuscular Hemoglobin 27.3, Mean Corpuscular Hemoglobin Concent 33.4, Red Cell Distribution Width 18.7H, Platelet Count 349, Mean Platelet Volume 5.3L, Neutrophils (%) (Auto) , Lymphocytes (%) (Auto) , Monocytes (%) (Auto) , Eosinophils (%) (Auto) , Basophils (%) (Auto) , Differential Total Cells Counted 100, Neutrophils % (Manual) 52, Lymphocytes % (Manual) 36, Monocytes % (Manual) 7, Eosinophils % (Manual) 3, Basophils % (Manual) 0, Band Neutrophils 2, Platelet Estimate Adequate, Platelet Morphology Normal, Hypochromasia 1+, Anisocytosis 1+, Sodium Level 138, Potassium Level 4.1, Chloride Level 104, Carbon Dioxide Level 27, Anion Gap 7, Blood Urea Nitrogen 2L, Creatinine 0.5L, Estimat Glomerular Filtration Rate > 60, Glucose Level 182H, Calcium Level 8.6, Total Bilirubin 0.5, Aspartate Amino Transf (AST/SGOT) 17, Alanine Aminotransferase (ALT/SGPT) 11L, Alkaline Phosphatase 136H, C-Reactive Protein, Quantitative 3.1H, Total Protein 6.2L, Albumin 2.4L, Globulin 3.8, Albumin/Globulin Ratio 0.6L Height (Feet): 5 Height (Inches): 7.00 Weight (Pounds): 150 Kallie Dykes M.D. Apr 16, 2020 09:52
[2020-04-16] MEDS: Vancomycin 1gm/D5W 275ml IVPB SCH ×4 (11:05→23:15)
[2020-04-16 12:00] VITALS: BP 111/59
--- NOTE | 2020-04-16 12:45 | NUR ---
CASE MANAGEMENT:REVIEW 04/15/20 SI: COVID INFECTION. ANEMIA 100.8 106 17 109/69 98% ON 1L/NC WBC-3.0 H/H-8.6/25.6 IS: IV VANCOMYCIN Q12 IVF@50/HR PROTONIX PO QD ALLOPURINOL PO QD CARDIZEM PO QID IV MORPHINE Q3HRS PRN : MED/SURG STATUS 4 EAST DCP: FROM [facility]
[2020-04-16 16:00] VITALS: BP 124/83
--- NOTE | 2020-04-16 16:20 | General Progress Note ---
Subjective Constitutional: Denies: no symptoms, chills, diaphoresis, fever, malaise, weakness, other HEENT: Denies: no symptoms, eye pain, blurred vision, tearing, double vision, ear pain, ear discharge, nose pain, nose congestion, throat pain, throat swelling, mouth pain, mouth swelling, other Cardiovascular: Denies: no symptoms, chest pain, edema, irregular heart rate, lightheadedness, palpitations, syncope, other Respiratory: Denies: no symptoms, cough, orthopnea, shortness of breath, SOB with excertion, SOB at rest, sputum, stridor, wheezing, other Gastrointestinal/Abdominal: Denies: no symptoms, abdomen distended, abdominal pain, black stools, tarry stools, blood in stool, constipated, diarrhea, difficulty swallowing, nausea, poor appetite, poor fluid intake, rectal bleeding, vomiting, other Genitourinary: Denies: no symptoms, burning, discharge, frequency, flank pain, hematuria, incontinence, pain, urgency, other Neurologic/Psychiatric: Denies: no symptoms, anxiety, depressed, emotional problems, headache, numbness, paresthesia, pre-existing deficit, seizure, tingling, tremors, weakness, other Endocrine: Denies: no symptoms, excessive sweating, flushing, intolerance to cold, intolerance to heat, increased hunger, increased thirst, increased urine, unexplained weight gain, unexplained weight loss, other Hematologic/Lymphatic: Denies: no symptoms, anemia, easy bleeding, easy bruising, other Allergies: Coded Allergies: No Known Allergies (Unverified , 04/11/20) Subjective Febrile 100.8 this Morning Subjectively doing well, not hypoxic No complaints of n/v or sob Can likely return to SNF tomorrow Objective Last 24 Hour Vital Signs Date Time Temp Pulse Resp B/P (MAP) Pulse Ox O2 Delivery O2 Flow Rate FiO2 04/16/20 12:00 105 111/59 04/16/20 12:00 98.8 105 18 111/59 (76) 98 04/16/20 10:37 98 Room Air 21 04/16/20 10:37 102 16 98 Room Air 21 04/16/20 09:00 Nasal Cannula 1.0 04/16/20 08:00 98.6 92 18 97/59 (72) 94 04/16/20 04:59 74 103/58 04/16/20 04:58 99.0 04/16/20 04:00 100.8 106 17 109/69 (82) 98 04/16/20 00:09 87 130/70 04/16/20 00:00 99.1 103 18 130/70 (90) 98 04/15/20 23:00 99.9 04/15/20 21:30 Nasal Cannula 1.0 04/15/20 20:00 99.9 109 17 127/73 (91) 98 04/15/20 19:13 100 18 97 Room Air 21 04/15/20 19:13 97 Room Air 21 04/15/20 18:00 112 109/72 Intake and Output 04/15/20 04/16/20 19:00 07:00 Intake Total 2240 ml Output Total 1800 ml 2000 ml Balance 440 ml -2000 ml Intake Oral 1640 ml IV Total 600 ml Output Urine Total 1800 ml 2000 ml # Voids 2 Laboratory Tests 04/16/20 04:30: White Blood Count 3.0L, Red Blood Count 3.14L, Hemoglobin 8.6L, Hematocrit 25.6L , Mean Corpuscular Volume 82, Mean Corpuscular Hemoglobin 27.3, Mean Corpuscular Hemoglobin Concent 33.4, Red Cell Distribution Width 18.7H, Platelet Count 349, Mean Platelet Volume 5.3L, Neutrophils (%) (Auto) , Lymphocytes (%) (Auto) , Monocytes (%) (Auto) , Eosinophils (%) (Auto) , Basophils (%) (Auto) , Differential Total Cells Counted 100, Neutrophils % (Manual) 52, Lymphocytes % (Manual) 36, Monocytes % (Manual) 7, Eosinophils % (Manual) 3, Basophils % (Manual) 0, Band Neutrophils 2, Platelet Estimate Adequate, Platelet Morphology Normal, Hypochromasia 1+, Anisocytosis 1+, Sodium Level 138, Potassium Level 4.1, Chloride Level 104, Carbon Dioxide Level 27, Anion Gap 7, Blood Urea Nitrogen 2L, Creatinine 0.5L, Estimat Glomerular Filtration Rate > 60, Glucose Level 182H, Calcium Level 8.6, Total Bilirubin 0.5, Aspartate Amino Transf (AST/SGOT) 17, Alanine Aminotransferase (ALT/SGPT) 11L, Alkaline Phosphatase 136H, C-Reactive Protein, Quantitative 3.1H, Total Protein 6.2L, Albumin 2.4L, Globulin 3.8, Albumin/Globulin Ratio 0.6L Height (Feet): 5 Height (Inches): 7.00 Weight (Pounds): 150 General Appearance: no apparent distress, alert EENT: PERRL/EOMI Neck: supple Cardiovascular: normal rate, regular rhythm Respiratory/Chest: lungs clear, normal breath sounds Abdomen: non tender, soft Extremities: other - LE weak Neurologic: simulation tech II-XII grossly normal, alert Skin: warm/dry Assessment/Plan Status: stable Assessment/Plan: #Hx of Sepsis 2' port infection #SIRS (febrile, tachycardic) #COVID 19+ - Febrile in AM - Port has been removed at OSH - , - ngtd - CXR with diffuse non-specific inflammatory/infectious process - Cefepime (04/14 - 04/15) - Per patient she is to continue on Vancomycin till 04/25 - ID Consult, appreciate recs #Acute blood loss anemia - resolving #Normocytic anemia Patient presented with Hb 6.7 with normal MCV. History of lymphoma per patient and is receiving chemo tx, last known to be February 2020. - 2U PRBCs ordered and transfused on admission - Hb Stable - Rectic count wnl - Iron and Iron sat low, Ferritin wnl - No active signs of bleeding - Hematology consulted, appreciate recs - CTM for signs of bleeding - Patient will need colonoscopy as outpatient in the future #Hx of Lymphoma - All information per patient - Oncology following, appreciate recs - Can continue current therapy with outpatient onc - No acute interventions needed inpatient #Hypokalemia #hypomagnesia - Lytes replaced #Chronic Back pain - Resume Baclofen, norco, tramadol Full Code Regular Diet Time spent is 34 minutes with approximately 18 minutes with counseling and care coordination. D/w consultants and nursing staff. time of note does not reflect time of encounter. Kaylyn Mak M.D. Apr 16, 2020 16:20
--- NOTE | 2020-04-16 19:29 | NUR ---
NURSE HAND-OFF: Important Events on Shift: pain meds given x 3 Patient Status: stable Diet: regular Pending Orders: n/a Pending Results/Labs:n/a Pending MD notification:n/a Latest Vital Signs: Temperature 99.7 , Pulse 96 , B/P 124 /83 , Respiratory Rate 18 , O2 SAT 98 , Nasal Cannula, O2 Flow Rate . Vital Sign Comment: stable Latest [place] Fall Score: 35 Fall Risk: Medium Risk Safety Measures: Call light Within Reach, Bed Alarm Zone 1, Side Rails Side Rails x3, Bed position Low and Locked. Fall Precautions: Yellow Socks Yellow Gown Door Sign Patient Fall Education Report given to REA Ceron.
--- NOTE | 2020-04-16 19:40 | NUR ---
NURSE NOTES: Received report Patient is sleeping. Pt a/o x 4. No SOB noted. Denies any pain at this time. SCD is on. LINDEN PICC line dressing is dry/intact and change Dressing was changed on , so will be changed today. Bed in lowest position, call light within reach. Will continue to monitor.
[2020-04-16 20:00] VITALS: BP 105/69
[2020-04-16] MEDS: Dyna-Hex 2% Top Sol 2oz TOPIC SCH (20:28)
[2020-04-17] VITALS: BP 134/80
--- NOTE | 2020-04-17 00:04 | NUR ---
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 Vital Sign Comment: Latest [place] Fall Score: 35 Fall Risk: Medium Risk Safety Measures: Call light Within Reach, Bed Alarm Zone 1, Side Rails Side Rails x3, Bed position Low and Locked. Fall Precautions: Yellow Socks Yellow Gown Door Sign Patient Fall Education Report given to Horacio RN .
[2020-04-17] MEDS: dilTIAZem HCl 30mg tab ORAL SCH ×4 (00:50→18:00)
[2020-04-17] MEDS: Morphine Sulfate 2mg/ml Inj(IV/IM USE ONLY) IVP PRN ×4 (02:29→23:46)
[2020-04-17 04:00] VITALS: BP 119/70
--- NOTE | 2020-04-17 05:20 | NUR ---
NURSE NOTES: The patient is running a temp of 100.1 is alert and stable . Tylenol 650mg po was given. Ice bag also placed on her armpit. Will continue to monitor
--- NOTE | 2020-04-17 07:15 | Hematology/Onc Progress Note ---
Assessment/Plan Assessment/Plan # Non-Hodgkins Lymphoma is s/p chemotherapy in the past --> to return to [facility] for further treatment --> likely for ct/pet as outpatient --> imaging has been reviewed thus far # Anemia likely of chronic disease -- does not appear to have iron deficiency --> transfuse as needed, tibc and ferritin are cw acd --> hgb 7.8-->8.6 --> no hemolysis is noted --> s/p transfusion on admission # Leukopenia --> hep and hiv order as needed --> wbc 4-->3 --> isolation if anc<500 # Covid 19++ with SIRS (febrile, tachycardic) --> per pulm and id --> CXR with diffuse non-specific inflammatory/infectious process --> s/p Cefepime (04/14 - 04/15) # Hypokalemia # Hypomagnesia # Chronic Back pain # Full Code Appreciate consultation and dw Rn Subjective HEENT: Denies: no symptoms, eye pain, blurred vision, tearing, double vision, ear pain, ear discharge, nose pain, nose congestion, throat pain, throat swellin g, mouth pain, mouth swelling, other Cardiovascular: Denies: no symptoms, chest pain, edema, irregular heart rate, lightheadedness, palpitations, syncope, other Genitourinary: Denies: no symptoms, burning, discharge, frequency, flank pain, hematuria, incontinence, pain, urgency, other Neurologic/Psychiatric: Denies: no symptoms, anxiety, depressed, emotional problems, headache, numbness, paresthesia, pre-existing deficit, seizure, tingling, tremors, weakness, other Endocrine: Denies: no symptoms, excessive sweating, flushing, intolerance to cold, intolerance to heat, increased hunger, increased thirst, increased urine, unexplained weight gain, unexplained weight loss, other Hematologic/Lymphatic: Denies: no symptoms, anemia, easy bleeding, easy bruising, adenopathy, other Allergies: Coded Allergies: No Known Allergies (Unverified , 04/11/20) Subjective 04/17 is on room air, more comfortable, potential dc to snf Objective Objective Current Medications Medications (Trade) Dose Ordered Sig/Angelika Route PRN Reason Start Time Stop Time Status Last Admin Dose Admin Acetaminophen (Tylenol) 650 mg Q6H PRN ORAL Mild Pain (Pain Scale 1-3) 04/12/20 02:45 05/12/20 02:44 04/17/20 05:29 Acetaminophen (Tylenol) 650 mg Q6H PRN ORAL FEVER 04/12/20 16:30 05/12/20 16:29 04/16/20 04:27 Allopurinol (allopurinoL) 300 mg DAILY ORAL 04/12/20 09:00 05/12/20 08:59 04/16/20 08:13 Baclofen (Lioresal) 10 mg THREE TIMES A DAY ORAL 04/12/20 09:00 05/12/20 08:59 04/14/20 08:45 Chlorhexidine Gluconate (Christy-Hex 2%) 1 applic DAILY@2000 TOPIC 04/12/20 20:00 07/11/20 19:59 04/16/20 20:28 Dextrose/ Electrolytes 1,000 ml @ 50 mls/hr Q20H IV 04/14/20 12:00 05/14/20 11:59 04/17/20 00:50 Diltiazem HCl (Cardizem Tab) 30 mg QID@0000,0600,1200,1800 ORAL 04/12/20 06:00 05/12/20 05:59 04/17/20 05:28 Folic Acid (Folate) 1 mg DAILY ORAL 04/12/20 09:00 05/12/20 08:59 04/16/20 08:13 Morphine Sulfate (Morphine Sulfate) 1 mg Q3H PRN IVP Moderate Pain (Pain Scale 4-6) 04/12/20 02:45 04/19/20 02:44 Morphine Sulfate (Morphine Sulfate) 2 mg Q3H PRN IVP Severe Pain (Pain Scale 7-10) 04/12/20 02:45 04/19/20 02:44 04/17/20 02:29 Pantoprazole (Protonix) 40 mg DAILY ORAL 04/12/20 09:00 05/12/20 08:59 04/16/20 08:13 Vancomycin HCl (Vanco pharmacy to dose) 1 ea DAILY PRN MISC Per rx protocol 04/12/20 04:15 05/12/20 04:14 Vancomycin HCl 1 gm/Dextrose 275 ml @ 183.708 mls/hr Q12HR@1100,2300 IVPB 04/13/20 23:00 12/15/20 22:59 04/16/20 23:15 Last 24 Hour Vital Signs Date Time Temp Pulse Resp B/P (MAP) Pulse Ox O2 Delivery O2 Flow Rate FiO2 04/17/20 05:59 99.4 04/17/20 05:28 102 119/70 04/17/20 04:00 100.1 102 21 119/70 (86) 97 04/17/20 00:50 101 134/80 04/17/20 00:00 99.3 101 19 134/80 (98) 98 04/16/20 21:00 Nasal Cannula 1.0 04/16/20 20:00 101 16 98 Room Air 21 04/16/20 20:00 97.8 103 18 105/69 (81) 99 04/16/20 20:00 97 Room Air 21 04/16/20 17:24 96 124/83 04/16/20 16:00 99.7 96 18 124/83 (97) 98 04/16/20 12:00 105 111/59 04/16/20 12:00 98.8 105 18 111/59 (76) 98 04/16/20 10:37 98 Room Air 21 04/16/20 10:37 102 16 98 Room Air 21 04/16/20 09:00 Nasal Cannula 1.0 04/16/20 08:00 98.6 92 18 97/59 (72) 94 04/16/20 04:59 74 103/58 04/16/20 04:58 99.0 04/16/20 04:00 100.8 106 17 109/69 (82) 98 04/16/20 00:09 87 130/70 04/16/20 00:00 99.1 103 18 130/70 (90) 98 04/15/20 23:00 99.9 04/15/20 21:30 Nasal Cannula 1.0 04/15/20 20:00 99.9 109 17 127/73 (91) 98 04/15/20 19:13 100 18 97 Room Air 21 04/15/20 19:13 97 Room Air 21 04/15/20 18:00 112 109/72 04/15/20 16:00 98.5 100 19 122/81 (95) 97 04/15/20 12:00 98.2 96 18 110/68 (82) 97 04/15/20 11:54 96 110/68 04/15/20 10:30 103/63 (76) 04/15/20 09:00 Nasal Cannula 1.0 04/15/20 08:00 97.5 102 20 93/62 (72) 98 04/15/20 07:35 101 18 98 Room Air 21 Intake and Output 04/16/20 04/17/20 19:00 07:00 Intake Total 635.000 ml 410 ml Output Total 1400 ml 1200 ml Balance -765.000 ml -790 ml Intake Oral 360 ml 410 ml IV Total 275.000 ml Output Urine Total 1400 ml 1200 ml Labs Test 04/14/20 17:00 04/15/20 05:30 04/15/20 10:25 04/16/20 04:30 Stool Occult Blood Negative (NEGATIVE) Sodium Level 140 MMOL/L (136-145) 138 MMOL/L (136-145) Potassium Level 3.4 MMOL/L (3.5-5.1) 4.1 MMOL/L (3.5-5.1) Chloride Level 107 MMOL/L (98-107) 104 MMOL/L (98-107) Carbon Dioxide Level 27 MMOL/L (21-32) 27 MMOL/L (21-32) Anion Gap 6 mmol/L (5-15) 7 mmol/L (5-15) Blood Urea Nitrogen 4 mg/dL (7-18) 2 mg/dL (7-18) Creatinine 0.5 MG/DL (0.55-1.30) 0.5 MG/DL (0.55-1.30) Estimat Glomerular Filtration Rate > 60 mL/min (>60) > 60 mL/min (>60) Glucose Level 92 MG/DL (74-106) 182 MG/DL (74-106) Calcium Level 8.7 MG/DL (8.5-10.1) 8.6 MG/DL (8.5-10.1) Phosphorus Level 3.9 MG/DL (2.5-4.9) Magnesium Level 1.6 MG/DL (1.8-2.4) Vancomycin Level Trough 16.7 ug/mL (5.0-12.0) White Blood Count 3.0 K/UL (4.8-10.8) Red Blood Count 3.14 M/UL (4.20-5.40) Hemoglobin 8.6 G/DL (12.0-16.0) Hematocrit 25.6 % (37.0-47.0) Mean Corpuscular Volume 82 FL (80-99) Mean Corpuscular Hemoglobin 27.3 PG (27.0-31.0) Mean Corpuscular Hemoglobin Concent 33.4 G/DL (32.0-36.0) Red Cell Distribution Width 18.7 % (11.6-14.8) Platelet Count 349 K/UL (150-450) Mean Platelet Volume 5.3 FL (6.5-10.1) Neutrophils (%) (Auto) % (45.0-75.0) Lymphocytes (%) (Auto) % (20.0-45.0) Monocytes (%) (Auto) % (1.0-10.0) Eosinophils (%) (Auto) % (0.0-3.0) Basophils (%) (Auto) % (0.0-2.0) Differential Total Cells Counted 100 Neutrophils % (Manual) 52 % (45-75) Lymphocytes % (Manual) 36 % (20-45) Monocytes % (Manual) 7 % (1-10) Eosinophils % (Manual) 3 % (0-3) Basophils % (Manual) 0 % (0-2) Band Neutrophils 2 % (0-8) Platelet Estimate Adequate Platelet Morphology Normal Hypochromasia 1+ Anisocytosis 1+ Total Bilirubin 0.5 MG/DL (0.2-1.0) Aspartate Amino Transf (AST/SGOT) 17 U/L (15-37) Alanine Aminotransferase (ALT/SGPT) 11 U/L (12-78) Alkaline Phosphatase 136 U/L (46-116) C-Reactive Protein, Quantitative 3.1 mg/dL (0.00-0.90) Total Protein 6.2 G/DL (6.4-8.2) Albumin 2.4 G/DL (3.4-5.0) Globulin 3.8 g/dL Albumin/Globulin Ratio 0.6 (1.0-2.7) Height (Feet): 5 Height (Inches): 7.00 Weight (Pounds): 150 General Appearance: alert Neck: normal alignment Cardiovascular: regular rhythm Respiratory/Chest: no respiratory distress Abdomen: no mass Extremities: non-tender Skin: warm/dry Martinez [place] MD Apr 17, 2020 07:15
--- NOTE | 2020-04-17 07:21 | NUR ---
NURSE HAND-OFF: Important Events on Shift:The patient is running a temp of 100.1 is alert and stable . Tylenol 650mg po was given. Ice bag also placed on her armpit. Will continue to monitor Patient Status: Diet: Pending Orders: Pending Results/Labs: Pending MD notification: Latest Vital Signs: Temperature 99.4 , Pulse 102 , B/P 119 /70 , Respiratory Rate 21 , O2 SAT 97 , Nasal Cannula, O2 Flow Rate 1.0 . Vital Sign Comment: Latest [place] Fall Score: 35 Fall Risk: Medium Risk Safety Measures: Call light Within Reach, Bed Alarm Zone 1, Side Rails Side Rails x3, Bed position Low and Locked. Fall Precautions: Yellow Socks Yellow Gown Door Sign Patient Fall Education Report given to .
--- NOTE | 2020-04-17 07:32 | NUR ---
NURSE NOTES: Patient awake, alert x4; on room air, on Nasal cannula 1 liter; no sing of distress and shortness of breath; no sing of chest pain; PICC on Right Upper arm, fluid running; Morales in place, drains yellow urine; side rails up x2, breaks engaged, bed at lowest position; call light within reach; will keep monitoring.
[2020-04-17 08:00] VITALS: BP 95/53
--- NOTE | 2020-04-17 09:05 | Nephrology Progress Note ---
Assessment/Plan Plan #hypokalemia- #hypomagnesemia #Acute on chronic anemia #h/p non- hodgkins lymphoma #possible sepsis #+ COVID - Pulmonary eval - prbc transfusion prn - replete lytes - hemo-onc eval - ID eval - continue with IV abx - monitor CBC - avoid nephrotoxins times spent 65 min Subjective ROS Limited/Unobtainable: No Constitutional: Reports: weakness HEENT: Denies: no symptoms, eye pain, blurred vision, tearing, double vision, ear pain, ear discharge, nose pain, nose congestion, throat pain, throat swelling, mouth pain, mouth swelling, other Genitourinary: Denies: no symptoms, burning, discharge, frequency, flank pain, hematuria, incontinence, pain, urgency, other Neurologic/Psychiatric: Denies: no symptoms, anxiety, depressed, emotional problems, headache, numbness, paresthesia, pre-existing deficit, seizure, tingling, tremors, weakness, other Subjective febrile 100.8 + COVID ID and pulm consulted Objective Objective Last 24 Hour Vital Signs Date Time Temp Pulse Resp B/P (MAP) Pulse Ox O2 Delivery O2 Flow Rate FiO2 04/17/20 05:59 99.4 04/17/20 05:28 102 119/70 04/17/20 04:00 100.1 102 21 119/70 (86) 97 04/17/20 00:50 101 134/80 04/17/20 00:00 99.3 101 19 134/80 (98) 98 04/16/20 21:00 Nasal Cannula 1.0 04/16/20 20:00 101 16 98 Room Air 21 04/16/20 20:00 97.8 103 18 105/69 (81) 99 04/16/20 20:00 97 Room Air 21 04/16/20 17:24 96 124/83 04/16/20 16:00 99.7 96 18 124/83 (97) 98 04/16/20 12:00 105 111/59 04/16/20 12:00 98.8 105 18 111/59 (76) 98 04/16/20 10:37 98 Room Air 21 04/16/20 10:37 102 16 98 Room Air 21 Intake and Output0 04/16/20 04/17/20 19:02 07:02 Intake Total 635.000 ml 410 ml Output Total 1400 ml 1200 ml Balance -765.000 ml -790 ml Intake Oral 360 ml 410 ml IV Total 275.000 ml Output Urine Total 1400 ml 1200 ml Laboratory Tests 04/17/20 06:30: Sodium Level [Pending], Potassium Level [Pending], Chloride Level [Pending], Carbon Dioxide Level [Pending], Blood Urea Nitrogen [Pending], Creatinine [Pending], Estimat Glomerular Filtration Rate [Pending], Glucose Level [Pending], Calcium Level [Pending] Height (Feet): 5 Height (Inches): 7.00 Weight (Pounds): 150 Kallie Dykes M.D. Apr 17, 2020 09:05
[2020-04-17 09:44] LABS: ANION GAP 8 mmol/L (5-15); BLOOD UREA NITROGEN 4 mg/dL (7-18); CALCIUM 8.6 MG/DL (8.5-10.1); CARBON DIOXIDE 26 MMOL/L (21-32); CHLORIDE 102 MMOL/L (98-107); CREATININE 0.5 MG/DL (0.55-1.30); POTASSIUM 3.9 MMOL/L (3.5-5.1); SODIUM 136 MMOL/L (136-145)
[2020-04-17] MEDS: Vancomycin 1gm/D5W 275ml IVPB SCH ×2 (10:38)
[2020-04-17 11:56] VITALS: BP 99/66
--- NOTE | 2020-04-17 15:31 | NUR ---
CASE MANAGEMENT:REVIEW SI;COVID PNEUMONIA. 100.1 103 21 95/53 98% 1L NC IS;IVF D5W @ 50 ML/HR VANCOMYCIN IV Q12 PROTONIX PO QD DILTIAZEM PO QID MED SURG STATUS DCP;FROM [facility]
[2020-04-17 16:00] VITALS: BP 116/76
--- NOTE | 2020-04-17 17:07 | General Progress Note ---
Subjective Date patient seen: Apr 17, 2020 Time patient seen: 09:20 Constitutional: Denies: no symptoms, chills, diaphoresis, fever, malaise, weakness, other HEENT: Denies: no symptoms, eye pain, blurred vision, tearing, double vision, ear pain, ear discharge, nose pain, nose congestion, throat pain, throat swelling, mouth pain, mouth swelling, other Cardiovascular: Denies: no symptoms, chest pain, edema, irregular heart rate, lightheadedness, palpitations, syncope, other Respiratory: Denies: no symptoms, cough, orthopnea, shortness of breath, SOB with excertion, SOB at rest, sputum, stridor, wheezing, other Gastrointestinal/Abdominal: Denies: no symptoms, abdomen distended, abdominal pain, black stools, tarry stools, blood in stool, constipated, diarrhea, difficulty swallowing, nausea, poor appetite, poor fluid intake, rectal bleeding, vomiting, other Genitourinary: Denies: no symptoms, burning, discharge, frequency, flank pain, hematuria, incontinence, pain, urgency, other Neurologic/Psychiatric: Denies: no symptoms, anxiety, depressed, emotional problems, headache, numbness, paresthesia, pre-existing deficit, seizure, tingling, tremors, weakness, other Endocrine: Denies: no symptoms, excessive sweating, flushing, intolerance to cold, intolerance to heat, increased hunger, increased thirst, increased urine, unexplained weight gain, unexplained weight loss, other Hematologic/Lymphatic: Denies: no symptoms, anemia, easy bleeding, easy bruising, other Allergies: Coded Allergies: No Known Allergies (Unverified , 04/11/20) Subjective NAEO Low grade temp of 100.1 this AM Subjectively patient feels well on RA or 1L NC mostly for comfort oxygen sat 98% Denies any n/v, sob, or change in bowel movements Objective Last 24 Hour Vital Signs Date Time Temp Pulse Resp B/P (MAP) Pulse Ox O2 Delivery O2 Flow Rate FiO2 04/17/20 16:00 101.8 106 20 116/76 (89) 96 04/17/20 11:56 98.1 97 18 99/66 (77) 98 04/17/20 11:09 98.1 04/17/20 09:00 Nasal Cannula 1.0 04/17/20 08:00 98.1 97 20 95/53 (67) 100 04/17/20 05:59 99.4 04/17/20 05:28 102 119/70 04/17/20 04:00 100.1 102 21 119/70 (86) 97 04/17/20 00:50 101 134/80 04/17/20 00:00 99.3 101 19 134/80 (98) 98 04/16/20 21:00 Nasal Cannula 1.0 04/16/20 20:00 101 16 98 Room Air 21 04/16/20 20:00 97.8 103 18 105/69 (81) 99 04/16/20 20:00 97 Room Air 21 04/16/20 17:24 96 124/83 Intake and Output 04/16/20 04/17/20 19:00 07:00 Intake Total 635.000 ml 460 ml Output Total 1400 ml 1200 ml Balance -765.000 ml -740 ml Intake Oral 360 ml 410 ml IV Total 275.000 ml 50 ml Output Urine Total 1400 ml 1200 ml Laboratory Tests 04/17/20 06:30: Sodium Level 136, Potassium Level 3.9, Chloride Level 102, Carbon Dioxide Level 26, Anion Gap 8, Blood Urea Nitrogen 4L, Creatinine 0.5L, Estimat Glomerular F iltration Rate > 60, Glucose Level 86, Calcium Level 8.6 04/17/20 09:49: Hepatitis A IgM Antibody [Pending], Hepatitis B Surface Antigen [Pending], Hepatitis B Core IgM Antibody [Pending], Hepatitis C Antibody [Pending], HIV (1&2) Antibody Rapid Negative Height (Feet): 5 Height (Inches): 7.00 Weight (Pounds): 150 General Appearance: no apparent distress, alert EENT: PERRL/EOMI Neck: non-tender, supple Cardiovascular: normal rate, regular rhythm Respiratory/Chest: lungs clear, normal breath sounds Abdomen: non tender, soft Extremities: other - lower extremities weak (baseline) Neurologic: review nurse II-XII grossly normal, alert, oriented x 3 Skin: warm/dry Assessment/Plan Status: stable Assessment/Plan: #Hx of Sepsis 2' port infection #SIRS (febrile, tachycardic) #COVID 19+ - CTM Fever curve - Defer Covid19 tx to ID - Port has been removed at OSH - , UC - ngtd - CXR with diffuse non-specific inflammatory/infectious process - Cefepime (04/14 - 04/15) - Per patient she is to continue on Vancomycin till 04/25 - ID Consult, appreciate recs #Acute blood loss anemia - resolving #anemia of chronic disease #Normocytic anemia Patient presented with Hb 6.7 with normal MCV. History of lymphoma per patient and is receiving chemo tx, last known to be February 2020. - 2U PRBCs ordered and transfused on admission - Hb Stable - Rectic count wnl, Iron and Iron sat low, Ferritin wnl - No active signs of bleeding - Hematology consulted, appreciate recs - CTM for signs of bleeding - Patient will need colonoscopy as outpatient in the future #Hx of Lymphoma - All information per patient - Oncology following, appreciate recs - Can continue current therapy with outpatient onc - No acute interventions needed inpatient #Hypokalemia #hypomagnesia - Lytes replaced #Chronic Back pain - Resume Baclofen, norco, tramadol Full Code Regular Diet Dispo - Discharge back to SNF. Time spent is 33 minutes with approximately 17 minutes with counseling and care coordination. D/w consultants and nursing staff. time of note does not reflect time of encounter. Kaylyn Mak M.D. Apr 17, 2020 17:07
--- NOTE | 2020-04-17 17:24 | NUR ---
*-*DISCHARGE PLANNING*-* PATIENT HAS BEEN REFERRED TO: [facility] P: [phone] PLACED MULTIPLE CALLS THROUGHOUT THE DAY, S/W JARROD, STATED ADMISSION NOT AVAILABLE, ALSO S/W ARABELLA, ADMISSIONS WILL CALL BACK, NO ONE RETUNED MY CALL, UNABLE TO SPEAK WITH ANYONE REGARDING THIS DISCHARGE.
--- NOTE | 2020-04-17 17:46 | Consultation ---
DATE OF CONSULTATION: 04/17/2020 PULMONARY CONSULTATION HISTORY OF PRESENT ILLNESS: This is a 55-year-old female with a history of non-Hodgkin lymphoma, who is admitted to the hospital with anemia. She was evaluated and treated. She also reported generalized weakness and fatigue. While in the hospital, she was tested for COVID-19 and the PCR came back positive on 04/12/2020. At this time, the patient states that she is feeling well and denies any new symptoms apart from fatigue. Per review of vital signs, she is saturating normally on very low-flow oxygen. I have reviewed her imaging studies and her x-ray chest around 04/13/2020 showed diffuse interstitial prominence, but no particular infiltrates are noted. PAST HISTORY: Notable for gout, hypertension, non-Hodgkin lymphoma. CURRENT MEDICATIONS: Reviewed and reconciled in chart. REVIEW OF SYSTEMS: Denies any headache, hematemesis, melena, hematochezia, or weight loss. ALLERGIES: None. PHYSICAL EXAMINATION: GENERAL: A 55-year-old female. HEENT: Unremarkable. LUNGS: Clear breath sounds bilaterally. ABDOMEN: Soft. EXTREMITIES: There is no edema. NEUROLOGIC: Nonfocal. VITAL SIGNS: Blood pressure is 115/60, heart rate is 84, respirations 18, O2 sat 98% on room air or 100% on 1 liter. T-max 101.8 overnight. LAB TESTING: White count 3.0, hemoglobin 8.6, platelet count is normal. Chemistries are unremarkable. Coags show normal D-dimer. Toxicology is negative. Urinalysis negative. Stool OB negative. IMAGING STUDY: X-ray chest is negative. IMPRESSION: 1. COVID-19 positivity. 2. Immunocompromised state with history of non-Hodgkin lymphoma. 3. Fever. 4. Hypertension. 5. Gout. DISCUSSION: Admitted to the hospital. Predominant care by primary physician. At this time, there is no indication for any steroid or remdesivir given her normoxemia. We will carefully monitor for further . Antibiotics per ID. We will follow. Ricky Jordan M.D. DR: FRANNIE JOB#: [id number] CC:
--- NOTE | 2020-04-17 18:22 | Infectious Diseases Prog Note ---
Assessment/Plan Assessment/Plan A) 1) covid-19 virus infection with fevers, saturations stable 2) hx lymphoma and chemo, history of port line infection and finishing vancomycin treatment course - end date per patient 3) hx anemia 4) allergies - nkda, fh-nc, sh-negative 5) d/w RN 6) notes and records noted P) 1) no indication for covid-19 treatment currently, no hypoxia 2) finish vancomycin for previous port-line infection - 04/25/20 end date per patient 3) monitor labs, monitor for hypoxia, monitor feves 4) will f/u 5) d/w patient Subjective Constitutional: Denies: fever HEENT: Denies: congestion Respiratory: Denies: shortness of breath Cardiovascular: Denies: chest pain Gastrointestinal/Abdominal: Denies: nausea, vomiting, diarrhea Genitourinary: Reports: other - no eaton Neurologic: Denies: headache Psychiatric: Denies: depression Skin: Denies: rash Hematologic: Denies: bleeding Musculoskeletal: Denies: pain Allergies: Coded Allergies: No Known Allergies (Unverified , 04/11/20) Objective Last 24 Hour Vital Signs Date Time Temp Pulse Resp B/P (MAP) Pulse Ox O2 Delivery O2 Flow Rate FiO2 04/17/20 16:24 99.0 04/17/20 16:00 101.8 106 20 116/76 (89) 96 04/17/20 11:56 98.1 97 18 99/66 (77) 98 04/17/20 11:09 98.1 04/17/20 09:00 Nasal Cannula 1.0 04/17/20 08:00 98.1 97 20 95/53 (67) 100 04/17/20 05:59 99.4 04/17/20 05:28 102 119/70 04/17/20 04:00 100.1 102 21 119/70 (86) 97 04/17/20 00:50 101 134/80 04/17/20 00:00 99.3 101 19 134/80 (98) 98 04/16/20 21:00 Nasal Cannula 1.0 04/16/20 20:00 101 16 98 Room Air 21 04/16/20 20:00 97.8 103 18 105/69 (81) 99 04/16/20 20:00 97 Room Air 21 Height (Feet): 5 Height (Inches): 7.00 Weight (Pounds): 150 General Appearance: no acute distress HEENT: normocephalic, atraumatic, anicteric, mucous membranes moist Respiratory/Chest: crackles/rales, rhonchi - bilaterally Cardiovascular: normal rate, regular rhythm Abdomen: normal bowel sounds, soft, non tender, no organomegaly Genitourinary: other - no eaton Extremities: no cyanosis Skin: no rash Neurologic/Psychiatric: repair servicer II-XII grossly normal, alert, responsive Lymphatic: no neck adenopathy Musculoskeletal: no effusion Chest x-ray - 04/13/20 - Findings: The cardiomediastinal silhouette is within normal limits. There is diffuse interstitial prominence. No airspace consolidation. No pneumothorax or pleural effusion. No acute osseous abnormality. Right approach PICC terminates in the expected location of mid SVC IMPRESSION: Diffuse interstitial prominence, which is nonspecific but may be related to peribronchial thickening in the setting of infectious/inflammatory airways disease or interstitial edema. Microbiology Date/Time Source Procedure Growth Status 04/14/20 00:45 Urine,Clean Catch Urine Culture - Final NO GROWTH AFTER 48 HOURS Complete 04/12/20 19:00 Blood Blood Culture - Preliminary NO GROWTH AFTER 4 DAYS Resulted 04/12/20 17:00 Nasopharynx Coronavirus COVID-19 PCR (KENDELL) - Final Complete 04/12/20 01:30 Rectum - Final NO CARBAPENEM-RESISTANT ENTEROBACTERI... Complete Labs Test 04/15/20 05:30 04/15/20 10:25 04/16/20 04:30 04/17/20 06:30 Sodium Level 140 MMOL/L (136-145) 138 MMOL/L (136-145) 136 MMOL/L (136-145) Potassium Level 3.4 MMOL/L (3.5-5.1) 4.1 MMOL/L (3.5-5.1) 3.9 MMOL/L (3.5-5.1) Chloride Level 107 MMOL/L (98-107) 104 MMOL/L (98-107) 102 MMOL/L (98-107) Carbon Dioxide Level 27 MMOL/L (21-32) 27 MMOL/L (21-32) 26 MMOL/L (21-32) Anion Gap 6 mmol/L (5-15) 7 mmol/L (5-15) 8 mmol/L (5-15) Blood Urea Nitrogen 4 mg/dL (7-18) 2 mg/dL (7-18) 4 mg/dL (7-18) Creatinine 0.5 MG/DL (0.55-1.30) 0.5 MG/DL (0.55-1.30) 0.5 MG/DL (0.55-1.30) Estimat Glomerular Filtration Rate > 60 mL/min (>60) > 60 mL/min (>60) > 60 mL/min (>60) Glucose Level 92 MG/DL (74-106) 182 MG/DL (74-106) 86 MG/DL (74-106) Calcium Level 8.7 MG/DL (8.5-10.1) 8.6 MG/DL (8.5-10.1) 8.6 MG/DL (8.5-10.1) Phosphorus Level 3.9 MG/DL (2.5-4.9) Magnesium Level 1.6 MG/DL (1.8-2.4) Vancomycin Level Trough 16.7 ug/mL (5.0-12.0) White Blood Count 3.0 K/UL (4.8-10.8) Red Blood Count 3.14 M/UL (4.20-5.40) Hemoglobin 8.6 G/DL (12.0-16.0) Hematocrit 25.6 % (37.0-47.0) Mean Corpuscular Volume 82 FL (80-99) Mean Corpuscular Hemoglobin 27.3 PG (27.0-31.0) Mean Corpuscular Hemoglobin Concent 33.4 G/DL (32.0-36.0) Red Cell Distribution Width 18.7 % (11.6-14.8) Platelet Count 349 K/UL (150-450) Mean Platelet Volume 5.3 FL (6.5-10.1) Neutrophils (%) (Auto) % (45.0-75.0) Lymphocytes (%) (Auto) % (20.0-45.0) Monocytes (%) (Auto) % (1.0-10.0) Eosinophils (%) (Auto) % (0.0-3.0) Basophils (%) (Auto) % (0.0-2.0) Differential Total Cells Counted 100 Neutrophils % (Manual) 52 % (45-75) Lymphocytes % (Manual) 36 % (20-45) Monocytes % (Manual) 7 % (1-10) Eosinophils % (Manual) 3 % (0-3) Basophils % (Manual) 0 % (0-2) Band Neutrophils 2 % (0-8) Platelet Estimate Adequate Platelet Morphology Normal Hypochromasia 1+ Anisocytosis 1+ Total Bilirubin 0.5 MG/DL (0.2-1.0) Aspartate Amino Transf (AST/SGOT) 17 U/L (15-37) Alanine Aminotransferase (ALT/SGPT) 11 U/L (12-78) Alkaline Phosphatase 136 U/L (46-116) C-Reactive Protein, Quantitative 3.1 mg/dL (0.00-0.90) Total Protein 6.2 G/DL (6.4-8.2) Albumin 2.4 G/DL (3.4-5.0) Globulin 3.8 g/dL Albumin/Globulin Ratio 0.6 (1.0-2.7) Test 04/17/20 09:49 HIV (1&2) Antibody Rapid Negative (NEGATIVE) Laboratory Tests Test 04/17/20 06:30 04/17/20 09:49 Sodium Level 136 MMOL/L (136-145) Potassium Level 3.9 MMOL/L (3.5-5.1) Chloride Level 102 MMOL/L (98-107) Carbon Dioxide Level 26 MMOL/L (21-32) Anion Gap 8 mmol/L (5-15) Blood Urea Nitrogen 4 mg/dL (7-18) L Creatinine 0.5 MG/DL (0.55-1.30) L Estimat Glomerular Filtration Rate > 60 mL/min (>60) Glucose Level 86 MG/DL (74-106) Calcium Level 8.6 MG/DL (8.5-10.1) Hepatitis A IgM Antibody Pending Hepatitis B Surface Antigen Pending Hepatitis B Core IgM Antibody Pending Hepatitis C Antibody Pending HIV (1&2) Antibody Rapid Negative (NEGATIVE) Current Medications Medications (Trade) Dose Ordered Sig/Angelika Route PRN Reason Start Time Stop Time Status Last Admin Dose Admin Acetaminophen (Tylenol) 650 mg Q6H PRN ORAL Mild Pain (Pain Scale 1-3) 04/12/20 02:45 05/12/20 02:44 04/17/20 05:29 Acetaminophen (Tylenol) 650 mg Q6H PRN ORAL FEVER 04/12/20 16:30 05/12/20 16:29 04/17/20 15:54 Allopurinol (allopurinoL) 300 mg DAILY ORAL 04/12/20 09:00 05/12/20 08:59 04/17/20 09:20 Baclofen (Lioresal) 10 mg THREE TIMES A DAY ORAL 04/12/20 09:00 05/12/20 08:59 04/17/20 09:20 Chlorhexidine Gluconate (Christy-Hex 2%) 1 applic DAILY@2000 TOPIC 04/12/20 20:00 07/11/20 19:59 04/16/20 20:28 Dextrose/ Electrolytes 1,000 ml @ 50 mls/hr Q20H IV 04/14/20 12:00 05/14/20 11:59 04/17/20 00:50 Diltiazem HCl (Cardizem Tab) 30 mg QID@0000,0600,1200,1800 ORAL 04/12/20 06:00 05/12/20 05:59 04/17/20 05:28 Folic Acid (Folate) 1 mg DAILY ORAL 04/12/20 09:00 05/12/20 08:59 04/17/20 09:20 Morphine Sulfate (Morphine Sulfate) 1 mg Q3H PRN IVP Moderate Pain (Pain Scale 4-6) 04/12/20 02:45 04/19/20 02:44 Morphine Sulfate (Morphine Sulfate) 2 mg Q3H PRN IVP Severe Pain (Pain Scale 7-10) 04/12/20 02:45 04/19/20 02:44 04/17/20 10:39 Pantoprazole (Protonix) 40 mg DAILY ORAL 04/12/20 09:00 05/12/20 08:59 04/17/20 09:20 Vancomycin HCl (Vanco pharmacy to dose) 1 ea DAILY PRN MISC Per rx protocol 04/12/20 04:15 05/12/20 04:14 Vancomycin HCl 1 gm/Dextrose 275 ml @ 183.708 mls/hr Q12HR@1100,2300 IVPB 04/13/20 23:00 04/18/20 22:59 04/17/20 10:38 Marko Rivera MD Apr 17, 2020 18:22
--- NOTE | 2020-04-17 19:27 | NUR ---
HAND-OFF: Report given to REA Hogan.
--- NOTE | 2020-04-17 19:54 | NUR ---
NURSE NOTES: Patient in bed, awake, alert and verbally responsive. Able to make needs known. Respiration is even and unlabored. Complained of pain 9/10 will give PRn pain medication as ordered. Skin is warm and dry to touch. abdomen is soft. NOted with right upper arm picc line, dressings were changed, iv fluid is infusing as ordered. Bed in low and locked position. Provided safe environment. Call light is at bedside.
[2020-04-17 20:00] VITALS: BP 96/53
[2020-04-17] MEDS: Dyna-Hex 2% Top Sol 2oz TOPIC SCH (20:53)
--- NOTE | 2020-04-17 21:00 | NUR ---
NURSE NOTES: Pain IVP given PRN pain medication, given once.
[2020-04-17] MEDS: Vancomycin 1 GM in D5W 275 ML IVPB SCH (22:00)
[2020-04-18] VITALS: BP 110/78
[2020-04-18] MEDS: Morphine Sulfate 2mg/ml Inj(IV/IM USE ONLY) IVP PRN ×6 (03:08→22:21)
--- NOTE | 2020-04-18 03:55 | NUR ---
NURSE NOTES: Patient has 100.4 fever, given tylenol prn, will reassess.
[2020-04-18 04:00] VITALS: BP 116/73
[2020-04-18] MEDS: dilTIAZem HCl 30mg tab ORAL SCH ×4 (06:00→17:54)
--- NOTE | 2020-04-18 06:53 | Hematology/Onc Progress Note ---
Assessment/Plan Assessment/Plan # Non-Hodgkins Lymphoma is s/p chemotherapy in the past --> to return to [facility] for further treatment --> likely for ct/pet as outpatient --> imaging has been reviewed thus far --> end date of 04/2020 # Anemia likely of chronic disease -- does not appear to have iron deficiency --> transfuse as needed, tibc and ferritin are cw acd --> hgb 7.8-->8.6 --> no hemolysis is noted --> s/p transfusion on admission # Leukopenia --> hep and hiv order as needed --> wbc 4-->3 --> isolation if anc<500 # Covid 19++ with SIRS (febrile, tachycardic) --> per pulm and id --> CXR with diffuse non-specific inflammatory/infectious process --> s/p Cefepime (04/14 - 04/15) # Hypokalemia # Hypomagnesia # Chronic Back pain # Full Code Appreciate consultation and dw Rn Subjective Constitutional: Denies: no symptoms, chills, fever, malaise, weakness, other HEENT: Denies: no symptoms, eye pain, blurred vision, tearing, double vision, ear pain, ear discharge, nose pain, nose congestion, throat pain, throat swelling, mouth pain, mouth swelling, other Cardiovascular: Denies: no symptoms, chest pain, edema, irregular heart rate, lightheadedness, palpitations, syncope, other Respiratory: Denies: no symptoms, cough, shortness of breath, SOB with excertion, SOB at rest, sputum, wheezing, other Gastrointestinal/Abdominal: Denies: no symptoms, abdomen distended, abdominal pain, black stools, tarry stools, blood in stool, constipated, diarrhea, difficulty swallowing, nausea, poor appetite, poor fluid intake, rectal bleeding, vomiting, other Endocrine: Denies: no symptoms, excessive sweating, flushing, intolerance to cold, intolerance to heat, increased hunger, increased thirst, increased urine, unexplained weight gain, unexplained weight loss, other Allergies: Coded Allergies: No Known Allergies (Unverified , 04/11/20) Subjective 04/17 is on room air, more comfortable, potential dc to snf 04/18 labs reviewed, no bleeding, meds noted, no night sweats Objective Objective Current Medications Medications (Trade) Dose Ordered Sig/Angelika Route PRN Reason Start Time Stop Time Status Last Admin Dose Admin Acetaminophen (Tylenol) 650 mg Q6H PRN ORAL Mild Pain (Pain Scale 1-3) 04/12/20 02:45 05/12/20 02:44 04/17/20 05:29 Acetaminophen (Tylenol) 650 mg Q6H PRN ORAL FEVER 04/12/20 16:30 05/12/20 16:29 04/18/20 03:40 Allopurinol (allopurinoL) 300 mg DAILY ORAL 04/12/20 09:00 05/12/20 08:59 04/17/20 09:20 Baclofen (Lioresal) 10 mg THREE TIMES A DAY ORAL 04/12/20 09:00 05/12/20 08:59 04/17/20 18:24 Chlorhexidine Gluconate (Christy-Hex 2%) 1 applic DAILY@2000 TOPIC 04/12/20 20:00 07/11/20 19:59 04/17/20 20:53 Dextrose/ Electrolytes 1,000 ml @ 50 mls/hr Q20H IV 04/14/20 12:00 05/14/20 11:59 04/17/20 20:53 Diltiazem HCl (Cardizem Tab) 30 mg QID@0000,0600,1200,1800 ORAL 04/12/20 06:00 05/12/20 05:59 04/17/20 05:28 Folic Acid (Folate) 1 mg DAILY ORAL 04/12/20 09:00 05/12/20 08:59 04/17/20 09:20 Morphine Sulfate (Morphine Sulfate) 1 mg Q3H PRN IVP Moderate Pain (Pain Scale 4-6) 04/12/20 02:45 04/19/20 02:44 Morphine Sulfate (Morphine Sulfate) 2 mg Q3H PRN IVP Severe Pain (Pain Scale 7-10) 04/12/20 02:45 04/19/20 02:44 04/18/20 05:54 Pantoprazole (Protonix) 40 mg DAILY ORAL 04/12/20 09:00 05/12/20 08:59 04/17/20 09:20 Vancomycin HCl (Vanco pharmacy to dose) 1 ea DAILY PRN MISC Per rx protocol 04/12/20 04:15 05/12/20 04:14 Vancomycin HCl 1 gm/Dextrose 275 ml @ 183.708 mls/hr Q12HR@1100,2300 IVPB 04/17/20 23:00 04/22/20 22:59 04/17/20 22:00 Last 24 Hour Vital Signs Date Time Temp Pulse Resp B/P (MAP) Pulse Ox O2 Delivery O2 Flow Rate FiO2 04/18/20 06:00 92 108/66 04/18/20 04:10 98.2 04/18/20 04:00 100.4 106 20 116/73 (87) 96 04/18/20 00:00 103 110/78 04/18/20 00:00 99.3 103 20 110/78 (89) 96 04/17/20 21:00 Nasal Cannula 2.0 04/17/20 20:00 99.5 102 20 96/53 (67) 98 04/17/20 16:24 99.0 04/17/20 16:00 101.8 106 20 116/76 (89) 96 04/17/20 11:56 98.1 97 18 99/66 (77) 98 04/17/20 11:09 98.1 04/17/20 09:00 Nasal Cannula 1.0 04/17/20 08:00 98.1 97 20 95/53 (67) 100 04/17/20 05:59 99.4 04/17/20 05:28 102 119/70 04/17/20 04:00 100.1 102 21 119/70 (86) 97 04/17/20 00:50 101 134/80 04/17/20 00:00 99.3 101 19 134/80 (98) 98 04/16/20 21:00 Nasal Cannula 1.0 04/16/20 20:00 101 16 98 Room Air 21 04/16/20 20:00 97.8 103 18 105/69 (81) 99 04/16/20 20:00 97 Room Air 21 04/16/20 17:24 96 124/83 04/16/20 16:00 99.7 96 18 124/83 (97) 98 04/16/20 12:00 105 111/59 04/16/20 12:00 98.8 105 18 111/59 (76) 98 04/16/20 10:37 98 Room Air 21 12/13/20 10:37 102 16 98 Room Air 21 04/16/20 09:00 Nasal Cannula 1.0 04/16/20 08:00 98.6 92 18 97/59 (72) 94 Intake and Output 04/17/20 04/18/20 19:00 07:00 Intake Total 817.416 ml 475.000 ml Output Total 1250 ml Balance -432.584 ml 475.000 ml IV Total 817.416 ml 475.000 ml Output Urine Total 1250 ml Labs Test 04/15/20 10:25 04/16/20 04:30 04/17/20 06:30 04/17/20 09:49 Vancomycin Level Trough 16.7 ug/mL (5.0-12.0) White Blood Count 3.0 K/UL (4.8-10.8) Red Blood Count 3.14 M/UL (4.20-5.40) Hemoglobin 8.6 G/DL (12.0-16.0) Hematocrit 25.6 % (37.0-47.0) Mean Corpuscular Volume 82 FL (80-99) Mean Corpuscular Hemoglobin 27.3 PG (27.0-31.0) Mean Corpuscular Hemoglobin Concent 33.4 G/DL (32.0-36.0) Red Cell Distribution Width 18.7 % (11.6-14.8) Platelet Count 349 K/UL (150-450) Mean Platelet Volume 5.3 FL (6.5-10.1) Neutrophils (%) (Auto) % (45.0-75.0) Lymphocytes (%) (Auto) % (20.0-45.0) Monocytes (%) (Auto) % (1.0-10.0) Eosinophils (%) (Auto) % (0.0-3.0) Basophils (%) (Auto) % (0.0-2.0) Differential Total Cells Counted 100 Neutrophils % (Manual) 52 % (45-75) Lymphocytes % (Manual) 36 % (20-45) Monocytes % (Manual) 7 % (1-10) Eosinophils % (Manual) 3 % (0-3) Basophils % (Manual) 0 % (0-2) Band Neutrophils 2 % (0-8) Platelet Estimate Adequate Platelet Morphology Normal Hypochromasia 1+ Anisocytosis 1+ Sodium Level 138 MMOL/L (136-145) 136 MMOL/L (136-145) Potassium Level 4.1 MMOL/L (3.5-5.1) 3.9 MMOL/L (3.5-5.1) Chloride Level 104 MMOL/L (98-107) 102 MMOL/L (98-107) Carbon Dioxide Level 27 MMOL/L (21-32) 26 MMOL/L (21-32) Anion Gap 7 mmol/L (5-15) 8 mmol/L (5-15) Blood Urea Nitrogen 2 mg/dL (7-18) 4 mg/dL (7-18) Creatinine 0.5 MG/DL (0.55-1.30) 0.5 MG/DL (0.55-1.30) Estimat Glomerular Filtration Rate > 60 mL/min (>60) > 60 mL/min (>60) Glucose Level 182 MG/DL (74-106) 86 MG/DL (74-106) Calcium Level 8.6 MG/DL (8.5-10.1) 8.6 MG/DL (8.5-10.1) Total Bilirubin 0.5 MG/DL (0.2-1.0) Aspartate Amino Transf (AST/SGOT) 17 U/L (15-37) Alanine Aminotransferase (ALT/SGPT) 11 U/L (12-78) Alkaline Phosphatase 136 U/L (46-116) C-Reactive Protein, Quantitative 3.1 mg/dL (0.00-0.90) Total Protein 6.2 G/DL (6.4-8.2) Albumin 2.4 G/DL (3.4-5.0) Globulin 3.8 g/dL Albumin/Globulin Ratio 0.6 (1.0-2.7) HIV (1&2) Antibody Rapid Negative (NEGATIVE) Test 04/18/20 04:00 Height (Feet): 5 Height (Inches): 7.00 Weight (Pounds): 150 Martinez [place] MD Apr 18, 2020 06:52
[2020-04-18 06:54] LABS: HEMATOCRIT 26.1 % (37.0-47.0); HEMOGLOBIN 8.5 G/DL (12.0-16.0); MEAN CORPUSCULAR VOLUME 84 FL (80-99); PLATELET COUNT 345 K/UL (150-450); RED BLOOD COUNT 3.11 M/UL (4.20-5.40); RED CELL DISTRIBUTION WIDTH 18.1 % (11.6-14.8); WHITE BLOOD COUNT 3.1 K/UL (4.8-10.8)
[2020-04-18 07:09] LABS: ANION GAP 8 mmol/L (5-15); CALCIUM 8.4 MG/DL (8.5-10.1); CARBON DIOXIDE 27 MMOL/L (21-32); CHLORIDE 103 MMOL/L (98-107); CREATININE 0.4 MG/DL (0.55-1.30); POTASSIUM 3.9 MMOL/L (3.5-5.1); SODIUM 138 MMOL/L (136-145)
--- NOTE | 2020-04-18 07:10 | NUR ---
NURSE NOTES: pt is in bed alert and awake. no acute distress noted.call light within reach.
--- NOTE | 2020-04-18 07:29 | NUR ---
NURSE HAND-OFF: Important Events on Shift:Elevated Temp Patient Status: WNL Diet: REG Pending Orders: Pending Results/Labs: Pending MD notification: Latest Vital Signs: Temperature 98.2 , Pulse 92 , B/P 108 /66 , Respiratory Rate 20 , O2 SAT 96 , Nasal Cannula, O2 Flow Rate 2.0 . Vital Sign Comment: WNL Latest [place] Fall Score: 35 Fall Risk: Medium Risk Safety Measures: Call light Within Reach, Bed Alarm Zone 1, Side Rails Side Rails x3, Bed position Low and Locked. Fall Precautions: Yellow Socks Yellow Gown Door Sign Patient Fall Education Report given to REA Card.
[2020-04-18 08:00] VITALS: BP 91/57
[2020-04-18 08:15] LABS: BLOOD UREA NITROGEN 22 mg/dL (7-18)
--- NOTE | 2020-04-18 08:41 | Nephrology Progress Note ---
Assessment/Plan Plan #hypokalemia- #hypomagnesemia #Acute on chronic anemia #h/p non- hodgkins lymphoma #possible sepsis #+ COVID - Pulmonary eval - prbc transfusion prn - replete lytes - hemo-onc eval - ID eval - continue with IV abx - monitor CBC - avoid nephrotoxins times spent 65 min Subjective ROS Limited/Unobtainable: No Constitutional: Reports: weakness HEENT: Denies: no symptoms, eye pain, blurred vision, tearing, double vision, ear pain, ear discharge, nose pain, nose congestion, throat pain, throat swelling, mouth pain, mouth swelling, other Genitourinary: Denies: no symptoms, burning, discharge, frequency, flank pain, hematuria, incontinence, pain, urgency, other Neurologic/Psychiatric: Denies: no symptoms, anxiety, depressed, emotional problems, headache, numbness, paresthesia, pre-existing deficit, seizure, tingling, tremors, weakness, other Subjective + COVID ID and pulm consulted Objective Objective Last 24 Hour Vital Signs Date Time Temp Pulse Resp B/P (MAP) Pulse Ox O2 Delivery O2 Flow Rate FiO2 04/18/20 08:14 98 Room Air 21 04/18/20 08:13 92 16 98 Room Air 21 04/18/20 06:00 92 108/66 04/18/20 04:10 98.2 04/18/20 04:00 100.4 106 20 116/73 (87) 96 04/18/20 00:00 103 110/78 04/18/20 00:00 99.3 103 20 110/78 (89) 96 04/17/20 21:00 Nasal Cannula 2.0 04/17/20 20:00 99.5 102 20 96/53 (67) 98 04/17/20 16:24 99.0 04/17/20 16:00 101.8 106 20 116/76 (89) 96 04/17/20 11:56 98.1 97 18 99/66 (77) 98 04/17/20 11:09 98.1 04/17/20 09:00 Nasal Cannula 1.0 Intake and Output 04/17/20 04/18/20 19:00 07:00 Intake Total 817.416 ml 835.000 ml Output Total 1250 ml 700 ml Balance -432.584 ml 135.000 ml IV Total 817.416 ml 475.000 ml Other 360 ml Output Urine Total 1250 ml 700 ml Laboratory Tests 04/17/20 09:49: Hepatitis A IgM Antibody Negative, Hepatitis B Surface Antigen Negative, Hepatitis B Core IgM Antibody Negative, Hepatitis C Antibody <0.1, HIV (1&2) Antibody Rapid Negative 04/18/20 04:00: White Blood Count 3.1L, Red Blood Count 3.11L, Hemoglobin 8.5L, Hematocrit 26.1L , Mean Corpuscular Volume 84, Mean Corpuscular Hemoglobin 27.2, Mean Corpuscular Hemoglobin Concent 32.4, Red Cell Distribution Width 18.1H, Platelet Count 345, Mean Platelet Volume 5.2L, Neutrophils (%) (Auto) , Lymphocytes (%) (Auto) , Monocytes (%) (Auto) , Eosinophils (%) (Auto) , Basophils (%) (Auto) , Neutrophils % (Manual) [Pending], Lymphocytes % (Manual) [Pending], Platelet Estimate [Pending], Platelet Morphology [Pending], Sodium Level 138, Potassium Level 3.9, Chloride Level 103, Carbon Dioxide Level 27, Anion Gap 8, Blood Urea Nitrogen 22H, Creatinine 0.4L, Estimat Glomerular Filtration Rate > 60, Glucose Level 93, Calcium Level 8.4L Height (Feet): 5 Height (Inches): 7.00 Weight (Pounds): 150 Kallie Dykes M.D. Apr 18, 2020 08:41
--- NOTE | 2020-04-18 09:30 | Pulmonology Progress Note ---
Subjective ROS Limited/Unobtainable: No Interval Events: none new reported Constitutional: Denies: fever, chills, fatigue HEENT: Repors: no symptoms; Denies: visual change, discharge Respiratory: Reports: no symptoms, dry cough - intermittent dry cough; Denies: shortness of breath, wheezing Cardiovascular: Reports: no symptoms Gastrointestinal/Abdominal: Reports: no symptoms; Denies: nausea, vomiting, diarrhea Psychiatric: Denies: depression Skin: Denies: rash Musculoskeletal: Denies: pain Allergies: Coded Allergies: No Known Allergies (Unverified , 04/11/20) Objective Last 24 Hour Vital Signs Date Time Temp Pulse Resp B/P (MAP) Pulse Ox O2 Delivery O2 Flow Rate FiO2 04/18/20 08:14 98 Room Air 21 04/18/20 08:13 92 16 98 Room Air 21 04/18/20 06:00 92 108/66 04/18/20 04:10 98.2 04/18/20 04:00 100.4 106 20 116/73 (87) 96 04/18/20 00:00 103 110/78 04/18/20 00:00 99.3 103 20 110/78 (89) 96 04/17/20 21:00 Nasal Cannula 2.0 04/17/20 20:00 99.5 102 20 96/53 (67) 98 04/17/20 16:24 99.0 04/17/20 16:00 101.8 106 20 116/76 (89) 96 04/17/20 11:56 98.1 97 18 99/66 (77) 98 04/17/20 11:09 98.1 Intake and Output 04/17/20 04/18/20 19:00 07:00 Intake Total 817.416 ml 835.000 ml Output Total 1250 ml 700 ml Balance -432.584 ml 135.000 ml IV Total 817.416 ml 475.000 ml Other 360 ml Output Urine Total 1250 ml 700 ml Objective 04/18/2020 pt saturating well on 2 lpm NC General Appearance: WD/WN, no acute distress HEENT: normocephalic, atraumatic Respiratory: lungs clear Cardiovascular: normal rate, regular rhythm Abdomen: soft, non tender Genitourinary: other - Morales Extremities: no edema Laboratory Tests 04/17/20 09:49: Hepatitis A IgM Antibody Negative, Hepatitis B Surface Antigen Negative, Hepatitis B Core IgM Antibody Negative, Hepatitis C Antibody <0.1, HIV (1&2) Antibody Rapid Negative 04/18/20 04:00: White Blood Count 3.1L, Red Blood Count 3.11L, Hemoglobin 8.5L, Hematocrit 26.1L , Mean Corpuscular Volume 84, Mean Corpuscular Hemoglobin 27.2, Mean Corpuscular Hemoglobin Concent 32.4, Red Cell Distribution Width 18.1H, Platelet Count 345, Mean Platelet Volume 5.2L, Neutrophils (%) (Auto) , Lymphocytes (%) (Auto) , Monocytes (%) (Auto) , Eosinophils (%) (Auto) , Basophils (%) (Auto) , N eutrophils % (Manual) [Pending], Lymphocytes % (Manual) [Pending], Platelet Estimate [Pending], Platelet Morphology [Pending], Sodium Level 138, Potassium Level 3.9, Chloride Level 103, Carbon Dioxide Level 27, Anion Gap 8, Blood Urea Nitrogen 22H, Creatinine 0.4L, Estimat Glomerular Filtration Rate > 60, Glucose Level 93, Calcium Level 8.4L Current Medications Medications (Trade) Dose Ordered Sig/Angelika Route PRN Reason Start Time Stop Time Status Last Admin Dose Admin Acetaminophen (Tylenol) 650 mg Q6H PRN ORAL Mild Pain (Pain Scale 1-3) 04/12/20 02:45 05/12/20 02:44 04/17/20 05:29 Acetaminophen (Tylenol) 650 mg Q6H PRN ORAL FEVER 04/12/20 16:30 05/12/20 16:29 04/18/20 03:40 Allopurinol (allopurinoL) 300 mg DAILY ORAL 04/12/20 09:00 05/12/20 08:59 04/18/20 09:10 Baclofen (Lioresal) 10 mg THREE TIMES A DAY ORAL 04/12/20 09:00 05/12/20 08:59 04/18/20 09:10 Chlorhexidine Gluconate (Christy-Hex 2%) 1 applic DAILY@2000 TOPIC 04/12/20 20:00 07/11/20 19:59 04/17/20 20:53 Dextrose/ Electrolytes 1,000 ml @ 50 mls/hr Q20H IV 04/14/20 12:00 05/14/20 11:59 04/17/20 20:53 Diltiazem HCl (Cardizem Tab) 30 mg QID@0000,0600,1200,1800 ORAL 04/12/20 06:00 05/12/20 05:59 04/17/20 05:28 Iron Sucrose 100 mg/Sodium Chloride 60 ml @ 240 mls/hr BEDTIME IVPB 04/18/20 21:00 04/22/20 21:14 Morphine Sulfate (Morphine Sulfate) 1 mg Q3H PRN IVP Moderate Pain (Pain Scale 4-6) 04/12/20 02:45 04/19/20 02:44 Morphine Sulfate (Morphine Sulfate) 2 mg Q3H PRN IVP Severe Pain (Pain Scale 7-10) 04/12/20 02:45 04/19/20 02:44 04/18/20 09:19 Vancomycin HCl (Vanco pharmacy to dose) 1 ea DAILY PRN MISC Per rx protocol 04/12/20 04:15 05/12/20 04:14 Vancomycin HCl 1 gm/Dextrose 275 ml @ 183.708 mls/hr Q12HR@1100,2300 IVPB 04/17/20 23:00 04/22/20 22:59 04/17/20 22:00 Assessment/Plan Assessment/Plan 1. COVID-19 positivity. - no indication for any steroid or remdesivir given her normoxemia at this time - Antibiotics per ID 2. Immunocompromised state with history of non-Hodgkin lymphoma. 3. Fever. 4. Hypertension. 5. Gout. We will follow. The care for this patient was discussed with my supervising physician Time spent for this case was approximately 31 minutes The patient was seen and examined at bedside and all new and available data was reviewed in the patients chart. I agree with the above findings, impression, and plan. (Patient was seen earlier today. Signature timestamp does not reflect patient encounter time) Joaquín Fernandez MD Apr 18, 2020 09:30 Ricky Jordan MD Apr 18, 2020 18:15
[2020-04-18] MEDS: Enoxaparin 40mg Inj SUBQ SCH ×2 (10:00→13:39)
[2020-04-18 12:00] VITALS: BP 101/53
--- NOTE | 2020-04-18 12:31 | NUR ---
RADIOLOGY DEPT., CHEST X-RAY DONE.-P.DYE
[2020-04-18] MEDS: Vancomycin 1 GM in D5W 275 ML IVPB SCH ×2 (13:41→22:20)
--- NOTE | 2020-04-18 13:53 | Diagnostic Imaging Report ---
Indication: Shortness of breath Technique: One view of the chest Comparison: 04/13/2020 Findings: Prominent interstitial markings are again demonstrated bilaterally, appearance suggestive of bronchial wall thickening, but are unchanged. Again demonstrated is a right arm PICC and evidence of prior lower thoracic vertebral augmentation procedure. Impression: Unchanged interstitial prominence, probably on the basis of acuity indeterminate bronchial wall thickening.
--- NOTE | 2020-04-18 15:28 | NUR ---
CASE MANAGEMENT:REVIEW SI;COVID PNEUMONIA 100.4 102 20 91/57 95% ON RA H/H 8.5/26.1 BUN 22 IS;LOVENOX SQ QD VANCOMYCIN IV Q12 IVF D5 @ 50 ML/HR BACLOFEN PO TID TYLENOL PO 16 PRN MED SURG STATUS DCP;FROM [facility]
--- NOTE | 2020-04-18 15:32 | NUR ---
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 PER SHA, UNABLE TO TRANSFER TO [facility] D/T LACK OF BED AVAILABILITY.
[2020-04-18 16:00] VITALS: BP 103/60
--- NOTE | 2020-04-18 17:34 | NUR ---
*-*DISCHARGE PLANNING*-* PATIENT HAS BEEN BACK TO: [facility] P: [phone] [facility], WILL FOLLOW UP TOMORROW 04/19/2020 Addendum: 04/19/20 at 1721 by BREA WONG CM *-*DISCHARGE PLANNING*-* PATIENT HAS BEEN BACK TO: [facility] P: [phone] [facility] WILL CALL BACK WHEN BED BECOMES AVAILABLE.
--- NOTE | 2020-04-18 18:06 | General Progress Note ---
Subjective Allergies: Coded Allergies: No Known Allergies (Unverified , 04/11/20) Subjective Chart reviewed. Patient recently diagnosed with NHL earlier this year in August/September. Found to have spinal lesion s/p surgery and now with chronic eaton. P/w anemia, but no signs of bleeding. Then subsequently found to have COVID 19 pna, now recovering well however continues to have fevers up to 101.8 yesterday. No other infectious symptoms. No cough, SOB, fever, chills, SOB, cough. Review of systems: Constitutional: Denies: chills, diaphoresis, malaise, weakness, + Fevers HEENT: Denies: eye pain, blurred vision, tearing, double vision, ear pain, ear discharge, nose pain, nose congestion, throat pain, throat swelling, mouth pain, mouth swelling, Cardiovascular: Denies: chest pain, edema, lightheadedness, palpitations, syncope, Respiratory: Denies: cough, orthopnea, shortness of breath, SOB with excertion, SOB at rest, Gastrointestinal/Abdominal: Denies: abdomen distended, abdominal pain, black stools, tarry stools, blood in stool, constipated, diarrhea, difficulty swallow ing, nausea, poor appetite, poor fluid intake, rectal bleeding, vomiting, other Genitourinary: Denies: burning, discharge, frequency, flank pain, hematuria, incontinence, pain, urgency, other Neurologic/Psychiatric: Denies: anxiety, depressed, emotional problems, headache, numbness, paresthesia, pre-existing deficit, seizure, tingling, tremors, weakness, other Endocrine: Denies: excessive sweating, flushing, intolerance to cold, intolerance to heat, increased hunger, increased thirst MSK: denies joint pains, swelling, stiffness Hematologic/Lymphatic: Denies: anemia, easy bleeding, easy bruising, Objective Last 24 Hour Vital Signs Date Time Temp Pulse Resp B/P (MAP) Pulse Ox O2 Delivery O2 Flow Rate FiO2 04/18/20 17:54 105 103/60 04/18/20 16:00 101.7 105 20 103/60 (74) 96 04/18/20 12:00 98.1 102 20 101/53 (69) 95 04/18/20 12:00 102 101/53 04/18/20 09:00 Nasal Cannula 2.0 04/18/20 08:14 98 Room Air 21 04/18/20 08:13 92 16 98 Room Air 21 04/18/20 08:00 98.1 94 20 91/57 (68) 95 04/18/20 06:00 92 108/66 04/18/20 04:10 98.2 04/18/20 04:00 100.4 106 20 116/73 (87) 96 04/18/20 00:00 103 110/78 04/18/20 00:00 99.3 103 20 110/78 (89) 96 04/17/20 21:00 Nasal Cannula 2.0 04/17/20 20:00 99.5 102 20 96/53 (67) 98 Intake and Output0 04/17/20 04/18/20 19:00 07:00 Intake Total 817.416 ml 835.000 ml Output Total 1250 ml 700 ml Balance -432.584 ml 135.000 ml IV Total 817.416 ml 475.000 ml Other 360 ml Output Urine Total 1250 ml 700 ml Laboratory Tests 04/18/20 04:00: White Blood Count 3.1L, Red Blood Count 3.11L, Hemoglobin 8.5L, Hematocrit 26.1L , Mean Corpuscular Volume 84, Mean Corpuscular Hemoglobin 27.2, Mean Corpuscular Hemoglobin Concent 32.4, Red Cell Distribution Width 18.1H, Platelet Count 345, Mean Platelet Volume 5.2L, Neutrophils (%) (Auto) , Lymphocytes (%) (Auto) , Monocytes (%) (Auto) , Eosinophils (%) (Auto) , Basophils (%) (Auto) , Differential Total Cells Counted 100, Neutrophils % (Manual) 62, Lymphocytes % (Manual) 26, Monocytes % (Manual) 8, Eosinophils % (Manual) 2, Basophils % (Manual) 0, Band Neutrophils 2, Platelet Estimate Adequate, Platelet Morphology Normal, Anisocytosis 1+, Sodium Level 138, Potassium Level 3.9, Chloride Level 103, Carbon Dioxide Level 27, Anion Gap 8, Blood Urea Nitrogen 22H, Creatinine 0.4L, Estimat Glomerular Filtration Rate > 60, Glucose Level 93, Calcium Level 8.4L Height (Feet): 5 Height (Inches): 7.00 Weight (Pounds): 150 Objective General: WDWN female in NAD, A&O x 4 HEENT: Normocephalic cephalic atraumatic, pupils equal round reactive to light and accommodation, nares patent and no symmetrical, no tonsillar exudates, mucous membranes moist CV: Regular rate regular rhythm, no murmurs, rubs, or gallops + POrt site is C/d/i. Pulm: Lungs clear to auscultation bilaterally. No wheezes, rhonchi, or rales GI: Soft, nontender, nondistended, bowel sounds present + etaon in place Neuro: CN 2-12 intact bilaterally, no focal signs. Ext: No lower extremity edema bilaterally Skin: no rashes lesions or ulcers Msk: Joints symmetrical in upper extremity and lower extremity bilaterally, no joint swelling. Lymph: No lymphadenopathy in upper extremity and lower extremity Assessment/Plan Status: stable Assessment/Plan: #Hx of Sepsis 2' port infection #SIRS (febrile, tachycardic) #COVID 19+ - CTM Fever curve. Could be due to underlying malignancy - Repeat Blood culture today 04/18 - Repeat UA - Repeat CXR - D/W ID. - Defer Covid19 tx to ID - Port has been removed at OSH - , - ngtd - CXR with diffuse non-specific inflammatory/infectious process - Cefepime (04/14 - 04/15) - Per patient she is to continue on Vancomycin till 04/25 - ID Consult, appreciate recs #Acute blood loss anemia - resolving #anemia of chronic disease #Normocytic anemia Patient presented with Hb 6.7 with normal MCV. History of lymphoma per patient and is receiving chemo tx, last known to be February 2020. - 2U PRBCs ordered and transfused on admission - Hb Stable - Rectic count wnl, Iron and Iron sat low, Ferritin wnl - No active signs of bleeding - Hematology consulted, appreciate recs - CTM for signs of bleeding - Patient will need colonoscopy as outpatient in the future : Gi Consulted; Dr. Carter #Hx of Lymphoma - All information per patient - Oncology following, appreciate recs - Can continue current therapy with outpatient onc - No acute interventions needed inpatient #Hypokalemia #hypomagnesia - Lytes replaced #Chronic Back pain - Resume Baclofen, norco, tramadol Full Code Regular Diet Dispo - Discharge back to SNF. 36 minutes spent on this encounter, and 20 minutes spent on counseling and care coordination. Discussed with ID, heme/onc, RN I spent an additional 32 minutes reviewing medical records including prior hospitalization notes, clinic notes, consultation notes, prior labs, and prior imaging. Time of note may not reflect time patient was seen. time of note does not reflect time of encounter. Jus Brunner D.O. Apr 18, 2020 18:06
[2020-04-18 18:22] LABS: BILIRUBIN, URINE NEGATIVE (NEGATIVE); COLOR,URINE PALE YELLOW; GLUCOSE, URINE (UA) NEGATIVE (NEGATIVE); KETONES,URINE NEGATIVE (NEGATIVE); LEUKOCYTE ESTERASE ,URINE NEGATIVE (NEGATIVE); NITRITE,URINE NEGATIVE (NEGATIVE); PH,URINE 7 (4.5-8.0); PROTEIN,URINE NEGATIVE (NEGATIVE); UROBILINOGEN,URINE NORMAL MG/DL (0.0-1.0)
[2020-04-18 18:28] LABS: APPEARANCE,URINE CLEAR
--- NOTE | 2020-04-18 19:10 | NUR ---
NURSE NOTES: RECEIVED PATIENT FROM [facility] . PATIENT IS AWAKE, ALERT, ORIENTED X4, ON NC 1L, NO ACUTE DISTRESS NOTED. PICC LINE INTACT AND PATENT, FLUSHED BOTH LUMENS. RUNNING D5NS WITH 20MEQ AT 75 ML/HR. WOUND DRESSINGS INTACT. OVALLE IN PLACE, OVALLE ANCHOR PRESENT, DRAINING WELL. FALL PRECAUTION IN PLACE. BED IS LOCKED AND LOW, BED ALARMS ACTIVE, SIDE RAILS UPX2 AND CALL LIGHT IS WITHIN REACH. WILL CONTINUE TO MONITOR.
--- NOTE | 2020-04-18 19:15 | NUR ---
HAND-OFF: Report given to CAMARENA.
[2020-04-18 20:00] VITALS: BP 90/52
[2020-04-18] MEDS: Dyna-Hex 2% Top Sol 2oz TOPIC SCH (21:40)
[2020-04-18] MEDS: Iron Sucrose 100 MG in NS 55 ML IVPB SCH (21:40)
[2020-04-19] VITALS (7 sets, daily range): BP systolic 91–114; BP diastolic 56–72
[2020-04-19] MEDS: dilTIAZem HCl 30mg tab ORAL SCH ×4 (06:00→17:06)
[2020-04-19] MEDS ORDERED: Morphine Sulfate 2mg/ml Inj(IV/IM USE ONLY) IVP PRN (06:15)
[2020-04-19] MEDS: Morphine Sulfate 2mg/ml Inj(IV/IM USE ONLY) IVP PRN ×4 (06:35→20:55)
--- NOTE | 2020-04-19 06:35 | Hematology/Onc Progress Note ---
Assessment/Plan Assessment/Plan # Non-Hodgkins Lymphoma is s/p chemotherapy in the past --> to return to [facility]co for further treatment --> likely for ct/pet as outpatient --> imaging has been reviewed thus far --> end date of 04/2020 # Anemia likely of chronic disease -- does not appear to have iron deficiency --> transfuse as needed, tibc and ferritin are cw acd --> hgb 7.8-->8.6-->8.5 --> no hemolysis is noted --> s/p transfusion on admission # Leukopenia --> hep and hiv order as needed --> wbc 4-->3 --> isolation if anc<500 # Covid 19++ with SIRS (febrile, tachycardic) --> per pulm and id --> CXR with diffuse non-specific inflammatory/infectious process --> s/p Cefepime (04/14 - 04/15) # Hypokalemia # Hypomagnesia # Chronic Back pain # Full Code Appreciate consultation and reagan Rn Subjective HEENT: Denies: no symptoms, eye pain, blurred vision, tearing, double vision, ear pain, ear discharge, nose pain, nose congestion, throat pain, throat swelling, mouth pain, mouth swelling, other Cardiovascular: Denies: no symptoms, chest pain, edema, irregular heart rate, lightheadedness, palpitations, syncope, other Respiratory: Denies: no symptoms, cough, shortness of breath, SOB with excertion, SOB at rest, sputum, wheezing, other Gastrointestinal/Abdominal: Denies: no symptoms, abdomen distended, abdominal pain, black stools, tarry stools, blood in stool, constipated, diarrhea, difficulty swallowing, nausea, poor appetite, poor fluid intake, rectal bleeding, vomiting, other Genitourinary: Denies: no symptoms, burning, discharge, frequency, flank pain, hematuria, incontinence, pain, urgency, other Neurologic/Psychiatric: Denies: no symptoms, anxiety, depressed, emotional problems, headache, numbness, paresthesia, pre-existing deficit, seizure, tingling, tremors, weakness, other Endocrine: Denies: no symptoms, excessive sweating, flushing, intolerance to cold, intolerance to heat, increased hunger, increased thirst, increased urine, unexplained weight gain, unexplained weight loss, other Allergies: Coded Allergies: No Known Allergies (Unverified , 04/11/20) Subjective 04/17 is on room air, more comfortable, potential dc to snf 04/18 labs reviewed, no bleeding, meds noted, no night sweats 04/19 sleeping comfortably, no major events, no night sweats Objective Objective Current Medications Medications (Trade) Dose Ordered Sig/Angelika Route PRN Reason Start Time Stop Time Status Last Admin Dose Admin Acetaminophen (Tylenol) 650 mg Q6H PRN ORAL Mild Pain (Pain Scale 1-3) 04/12/20 02:45 05/12/20 02:44 04/18/20 18:00 Acetaminophen (Tylenol) 650 mg Q6H PRN ORAL FEVER 04/12/20 16:30 05/12/20 16:29 04/18/20 03:40 Allopurinol (allopurinoL) 300 mg DAILY ORAL 04/12/20 09:00 05/12/20 08:59 04/18/20 09:10 Baclofen (Lioresal) 10 mg THREE TIMES A DAY ORAL 04/12/20 09:00 05/12/20 08:59 04/18/20 09:10 Chlorhexidine Gluconate (Christy-Hex 2%) 1 applic DAILY@2000 TOPIC 04/12/20 20:00 07/11/20 19:59 04/18/20 21:40 Dextrose/ Electrolytes 1,000 ml @ 50 mls/hr Q20H IV 04/14/20 12:00 05/14/20 11:59 04/18/20 18:00 Diltiazem HCl (Cardizem Tab) 30 mg QID@0000,0600,1200,1800 ORAL 04/12/20 06:00 05/12/20 05:59 04/17/20 05:28 Enoxaparin Sodium (Lovenox) 40 mg DAILY SUBQ 04/18/20 10:00 07/17/20 09:59 Iron Sucrose 100 mg/Sodium Chloride 60 ml @ 240 mls/hr BEDTIME IVPB 04/18/20 21:00 04/22/20 21:14 04/18/20 21:40 Morphine Sulfate (Morphine Sulfate) 1 mg Q3H PRN IVP Moderate Pain (Pain Scale 4-6) 04/19/20 06:15 04/26/20 06:14 Morphine Sulfate (Morphine Sulfate) 2 mg Q3H PRN IVP Severe Pain (Pain Scale 7-10) 04/19/20 06:15 04/26/20 06:14 Vancomycin HCl (Vanco pharmacy to dose) 1 ea DAILY PRN MISC Per rx protocol 04/12/20 04:15 05/12/20 04:14 Vancomycin HCl 1 gm/Dextrose 275 ml @ 183.708 mls/hr Q12HR@1100,2300 IVPB 04/17/20 23:00 04/22/20 22:59 04/18/20 22:20 Last 24 Hour Vital Signs Date Time Temp Pulse Resp B/P (MAP) Pulse Ox O2 Delivery O2 Flow Rate FiO2 04/19/20 06:00 105 100/71 04/19/20 04:00 97.5 105 20 100/71 (81) 99 04/19/20 00:00 99 90/52 04/19/20 00:00 97.3 91 20 98/63 (75) 99 04/18/20 21:00 Nasal Cannula 2.0 04/18/20 20:00 97.7 99 20 90/52 (65) 99 04/18/20 19:45 95 Nasal Cannula 2.0 28 04/18/20 18:30 99.1 04/18/20 17:54 105 103/60 04/18/20 16:00 101.7 105 20 103/60 (74) 96 04/18/20 12:00 98.1 102 20 101/53 (69) 95 04/18/20 12:00 102 101/53 04/18/20 09:00 Nasal Cannula 2.0 04/18/20 08:14 98 Room Air 21 04/18/20 08:13 92 16 98 Room Air 21 04/18/20 08:00 98.1 94 20 91/57 (68) 95 04/18/20 06:00 92 108/66 04/18/20 04:10 98.2 04/18/20 04:00 100.4 106 20 116/73 (87) 96 04/18/20 00:00 103 110/78 04/18/20 00:00 99.3 103 20 110/78 (89) 96 04/17/20 21:00 Nasal Cannula 2.0 04/17/20 20:00 99.5 102 20 96/53 (67) 98 04/17/20 16:24 99.0 04/17/20 16:00 101.8 106 20 116/76 (89) 96 04/17/20 11:56 98.1 97 18 99/66 (77) 98 04/17/20 11:09 98.1 04/17/20 09:00 Nasal Cannula 1.0 04/17/20 08:00 98.1 97 20 95/53 (67) 100 Intake and Output 04/18/20 04/19/20 19:00 07:00 Intake Total 50 ml 1107.416 ml Output Total 1300 ml Balance -1250 ml 1107.416 ml IV Total 50 ml 1107.416 ml Output Urine Total 1300 ml Labs Test 04/17/20 06:30 04/17/20 09:49 04/18/20 04:00 04/18/20 18:07 Sodium Level 136 MMOL/L (136-145) 138 MMOL/L (136-145) Potassium Level 3.9 MMOL/L (3.5-5.1) 3.9 MMOL/L (3.5-5.1) Chloride Level 102 MMOL/L (98-107) 103 MMOL/L (98-107) Carbon Dioxide Level 26 MMOL/L (21-32) 27 MMOL/L (21-32) Anion Gap 8 mmol/L (5-15) 8 mmol/L (5-15) Blood Urea Nitrogen 4 mg/dL (7-18) 22 mg/dL (7-18) Creatinine 0.5 MG/DL (0.55-1.30) 0.4 MG/DL (0.55-1.30) Estimat Glomerular Filtration Rate > 60 mL/min (>60) > 60 mL/min (>60) Glucose Level 86 MG/DL (74-106) 93 MG/DL (74-106) Calcium Level 8.6 MG/DL (8.5-10.1) 8.4 MG/DL (8.5-10.1) Hepatitis A IgM Antibody Negative (Negative) Hepatitis B Surface Antigen Negative (Negative) Hepatitis B Core IgM Antibody Negative (Negative) Hepatitis C Antibody <0.1 s/co ratio HIV (1&2) Antibody Rapid Negative (NEGATIVE) White Blood Count 3.1 K/UL (4.8-10.8) Red Blood Count 3.11 M/UL (4.20-5.40) Hemoglobin 8.5 G/DL (12.0-16.0) Hematocrit 26.1 % (37.0-47.0) Mean Corpuscular Volume 84 FL (80-99) Mean Corpuscular Hemoglobin 27.2 PG (27.0-31.0) Mean Corpuscular Hemoglobin Concent 32.4 G/DL (32.0-36.0) Red Cell Distribution Width 18.1 % (11.6-14.8) Platelet Count 345 K/UL (150-450) Mean Platelet Volume 5.2 FL (6.5-10.1) Neutrophils (%) (Auto) % (45.0-75.0) Lymphocytes (%) (Auto) % (20.0-45.0) Monocytes (%) (Auto) % (1.0-10.0) Eosinophils (%) (Auto) % (0.0-3.0) Basophils (%) (Auto) % (0.0-2.0) Differential Total Cells Counted 100 Neutrophils % (Manual) 62 % (45-75) Lymphocytes % (Manual) 26 % (20-45) Monocytes % (Manual) 8 % (1-10) Eosinophils % (Manual) 2 % (0-3) Basophils % (Manual) 0 % (0-2) Band Neutrophils 2 % (0-8) Platelet Estimate Adequate Platelet Morphology Normal Anisocytosis 1+ Urine Color Pale yellow Urine Appearance Clear Urine pH 7 (4.5-8.0) Urine Specific [place] 1.030 (1.005-1.035) Urine Protein Negative (NEGATIVE) Urine Glucose (UA) Negative (NEGATIVE) Urine Ketones Negative (NEGATIVE) Urine Blood Negative (NEGATIVE) Urine Nitrite Negative (NEGATIVE) Urine Bilirubin Negative (NEGATIVE) Urine Urobilinogen Normal MG/DL (0.0-1.0) Urine Leukocyte Esterase Negative (NEGATIVE) Height (Feet): 5 Height (Inches): 7.00 Weight (Pounds): 150 Objective Gen: nad Pulm: ctab, no cwr CV: rrr Abd: soft, nt Ext: no cce Martinez Hill MD Apr 19, 2020 06:35
--- NOTE | 2020-04-19 06:51 | NUR ---
NURSE HAND-OFF: Important Events on Shift: Pain management with morphine 2mg, refused to have dressing change, first dose of Venofer Patient Status: Stable Diet: Regular Pending Orders: N.A Pending Results/Labs: CBC, MAG, CMP Pending MD notification: N/A Latest Vital Signs: Temperature 97.5 , Pulse 105 , B/P 100 /71 , Respiratory Rate 20 , O2 SAT 99 , Nasal Cannula, O2 Flow Rate 2.0 . Vital Sign Comment: Stable Latest [place] Fall Score: 35 Fall Risk: Medium Risk Safety Measures: Call light Within Reach, Bed Alarm Zone 1, Side Rails Side Rails x3, Bed position Low and Locked. Fall Precautions: Yellow Socks Yellow Gown Door Sign Patient Fall Education
[2020-04-19 07:24] LABS: HEMATOCRIT 25.1 % (37.0-47.0); HEMOGLOBIN 8.6 G/DL (12.0-16.0); MEAN CORPUSCULAR VOLUME 80 FL (80-99); PLATELET COUNT 344 K/UL (150-450); RED BLOOD COUNT 3.13 M/UL (4.20-5.40); RED CELL DISTRIBUTION WIDTH 18.6 % (11.6-14.8); WHITE BLOOD COUNT 2.9 K/UL (4.8-10.8)
--- NOTE | 2020-04-19 07:28 | NUR ---
HAND-OFF: Report given to Glo Lundy RN.
[2020-04-19 07:54] LABS: ALANINE AMINOTRANSFERASE 10 U/L (12-78); ALBUMIN 2.5 G/DL (3.4-5.0); ALBUMIN/GLOBULIN RATIO 0.7 (1.0-2.7); ALKALINE PHOSPHATASE 126 U/L (46-116); ANION GAP 8 mmol/L (5-15); ASPARTATE AMINO TRANSFERASE 17 U/L (15-37); BILIRUBIN,TOTAL 0.4 MG/DL (0.2-1.0); BLOOD UREA NITROGEN 5 mg/dL (7-18); CALCIUM 8.6 MG/DL (8.5-10.1); CARBON DIOXIDE 28 MMOL/L (21-32); CHLORIDE 105 MMOL/L (98-107); CREATININE 0.5 MG/DL (0.55-1.30); PHOSPHORUS 3.6 MG/DL (2.5-4.9); POTASSIUM 4.1 MMOL/L (3.5-5.1); SODIUM 141 MMOL/L (136-145)
--- NOTE | 2020-04-19 08:19 | NUR ---
NURSE NOTES: Received repor from Cary Silverman RN. Patient sitting up in bed, eating breakfast, awake and alert, bed in lowest position, call light within reach, side rails up x 3, wheels locked, c/o pain, pain treated with morphine.
--- NOTE | 2020-04-19 08:46 | Nephrology Progress Note ---
Assessment/Plan Plan #hypokalemia- #hypomagnesemia #Acute on chronic anemia #h/p non- hodgkins lymphoma #possible sepsis #+ COVID - Pulmonary eval - prbc transfusion prn - replete lytes - hemo-onc eval - ID eval - continue with IV abx - monitor CBC - avoid nephrotoxins times spent 65 min Subjective ROS Limited/Unobtainable: No Constitutional: Reports: weakness HEENT: Denies: no symptoms, eye pain, blurred vision, tearing, double vision, ear pain, ear discharge, nose pain, nose congestion, throat pain, throat swelling, mouth pain, mouth swelling, other Genitourinary: Denies: no symptoms, burning, discharge, frequency, flank pain, hematuria, incontinence, pain, urgency, other Neurologic/Psychiatric: Denies: no symptoms, anxiety, depressed, emotional problems, headache, numbness, paresthesia, pre-existing deficit, seizure, tingling, tremors, weakness, other Subjective + COVID ID and pulm consulted continues to spike fever hip fracture noted ortho consulted Impression: Minimal distention of the rectum with feces, could represent mild rectal fecal impaction. Equivocal slight thickening of the rectal wall and stranding of the perirectal fat, if real could indicate mild stercoral proctitis Comminuted fracture of the left femoral head, neck, and intertrochanteric region, ununited. Possibly acute, but abundant soft tissues surrounding the fracture area raises possibility that this could be chronic. Correlate with clinical findings Other findings as noted, including evidence of old T12 vertebral body compression fracture and prior vertebral augmentation procedure, Morales catheter, subcentimeter low-attenuation lesions which probably represent renal cysts, small sliding-type hiatal hernia Objective Objective Last 24 Hour Vital Signs Date Time Temp Pulse Resp B/P (MAP) Pulse Ox O2 Delivery O2 Flow Rate FiO2 04/19/20 08:00 100.0 110 19 108/67 (81) 96 04/19/20 06:00 105 100/71 04/19/20 04:00 97.5 105 20 100/71 (81) 99 04/19/20 00:00 99 90/52 04/19/20 00:00 97.3 91 20 98/63 (75) 99 04/18/20 21:00 Nasal Cannula 2.0 04/18/20 20:00 97.7 99 20 90/52 (65) 99 04/18/20 19:45 95 Nasal Cannula 2.0 28 04/18/20 18:30 99.1 04/18/20 17:54 105 103/60 04/18/20 16:00 101.7 105 20 103/60 (74) 96 04/18/20 12:00 98.1 102 20 101/53 (69) 95 04/18/20 12:00 102 101/53 04/18/20 09:00 Nasal Cannula 2.0 Intake and Output 04/18/20 04/19/20 19:00 07:00 Intake Total 50 ml 1107.416 ml Output Total 1300 ml 1700 ml Balance -1250 ml -592.584 ml IV Total 50 ml 1107.416 ml Output Urine Total 1300 ml 1700 ml Laboratory Tests 04/18/20 18:07: Urine Color Pale yellow, Urine Appearance Clear, Urine pH 7, Urine Specific [place] 1.030, Urine Protein Negative, Urine Glucose (UA) Negative, Urine Ketones Negative, Urine Blood Negative, Urine Nitrite Negative, Urine Bilirubin Negative, Urine Urobilinogen Normal, Urine Leukocyte Esterase Negative 04/19/20 04:00: White Blood Count 2.9L, Red Blood Count 3.13L, Hemoglobin 8.6L, Hematocrit 25.1L , Mean Corpuscular Volume 80, Mean Corpuscular Hemoglobin 27.5, Mean Corpuscular Hemoglobin Concent 34.2, Red Cell Distribution Width 18.6H, Platelet Count 344, Mean Platelet Volume 5.2L, Neutrophils (%) (Auto) , Lymphocytes (%) (Auto) , Monocytes (%) (Auto) , Eosinophils (%) (Auto) , Basophils (%) (Auto) , Neutrophils % (Manual) [Pending], Lymphocytes % (Manual) [Pending], Platelet Estimate [Pending], Platelet Morphology [Pending], Sodium Level 141, Potassium Level 4.1, Chloride Level 105, Carbon Dioxide Level 28, Anion Gap 8, Blood Urea Nitrogen 5L, Creatinine 0.5L, Estimat Glomerular Filtration Rate > 60, Glucose Level 85, Calcium Level 8.6, Phosphorus Level 3.6, Magnesium Level 1.3L, Total Bilirubin 0.4, Aspartate Amino Transf (AST/SGOT) 17, Alanine Aminotransferase (A LT/SGPT) 10L, Alkaline Phosphatase 126H, Total Protein 6.2L, Albumin 2.5L, Globulin 3.7, Albumin/Globulin Ratio 0.7L Height (Feet): 5 Height (Inches): 7.00 Weight (Pounds): 150 Kallie Dykes M.D. Apr 19, 2020 08:46
[2020-04-19] MEDS: Enoxaparin 40mg Inj SUBQ SCH (09:00)
--- NOTE | 2020-04-19 09:49 | NUR ---
RD ASSESSMENT & RECOMMENDATIONS SEE CARE ACTIVITY FOR COMPLETE ASSESSMENT DAILY ESTIMATED NEEDS: Needs based on Wound/ 68kg 25-30 kcals/kg 0523-4637 total kcals 1.25-1.5 g protein/kg 85-102 g total protein 25-30 mL/kg 2350-3566 total fluid mLs NUTRITION DIAGNOSIS: Increased kcal/prot/micronutrients needs R/T wound healing as evidenced by pt admitted w/ sacral wound, stage 2 per documentation. CURRENT DIET:REGULAR PO DIET RECOMMENDATIONS: Maintain Regular diet ADDITIONAL RECOMMENDATIONS: * Calibrated bedscale wt * Wound healing: MVI x 1, Vit C 250mg QD LELO BID * Ensure Enlive BID w/ fair po intake * Monitor lytes, replete as needed * snacks in b/w meals
--- NOTE | 2020-04-19 10:12 | General Progress Note ---
Subjective ROS Limited/Unobtainable: Yes Allergies: Coded Allergies: No Known Allergies (Unverified , 04/11/20) Objective Last 24 Hour Vital Signs Date Time Temp Pulse Resp B/P (MAP) Pulse Ox O2 Delivery O2 Flow Rate FiO2 04/19/20 08:00 100.0 110 19 108/67 (81) 96 04/19/20 06:00 105 100/71 04/19/20 04:00 97.5 105 20 100/71 (81) 99 04/19/20 00:00 99 90/52 04/19/20 00:00 97.3 91 20 98/63 (75) 99 04/18/20 21:00 Nasal Cannula 2.0 04/18/20 20:00 97.7 99 20 90/52 (65) 99 04/18/20 19:45 95 Nasal Cannula 2.0 28 04/18/20 18:30 99.1 04/18/20 17:54 105 103/60 04/18/20 16:00 101.7 105 20 103/60 (74) 96 04/18/20 12:00 98.1 102 20 101/53 (69) 95 04/18/20 12:00 102 101/53 Intake and Output 04/18/20 04/19/20 19:00 07:00 Intake Total 50 ml 1107.416 ml Output Total 1300 ml 1700 ml Balance -1250 ml -592.584 ml IV Total 50 ml 1107.416 ml Output Urine Total 1300 ml 1700 ml Laboratory Tests 04/18/20 18:07: Urine Color Pale yellow, Urine Appearance Clear, Urine pH 7, Urine Specific [place] 1.030, Urine Protein Negative, Urine Glucose (UA) Negative, Urine Ketones Negative, Urine Blood Negative, Urine Nitrite Negative, Urine Bilirubin Negative, Urine Urobilinogen Normal, Urine Leukocyte Esterase Negative 04/19/20 04:00: White Blood Count 2.9L, Red Blood Count 3.13L, Hemoglobin 8.6L, Hematocrit 25.1L , Mean Corpuscular Volume 80, Mean Corpuscular Hemoglobin 27.5, Mean Corpuscular Hemoglobin Concent 34.2, Red Cell Distribution Width 18.6H, Platelet Count 344, Mean Platelet Volume 5.2L, Neutrophils (%) (Auto) , Lymphocytes (%) (Auto) , Monocytes (%) (Auto) , Eosinophils (%) (Auto) , Basophils (%) (Auto) , Differential Total Cells Counted 100, Neutrophils % (Manual) 60, Lymphocytes % (Manual) 33, Monocytes % (Manual) 3, Eosinophils % (Manual) 4H, Basophils % (Manual) 0, Band Neutrophils 0, Platelet Estimate Adequate, Platelet Morphology Normal, Hypochromasia 1+, Anisocytosis 1+, Sodium Level 141, Potassium Level 4.1, Chloride Level 105, Carbon Dioxide Level 28, Anion Gap 8, Blood Urea Nitrogen 5L, Creatinine 0.5L, Estimat Glomerular Filtration Rate > 60, Glucose Level 85, Calcium Level 8.6, Phosphorus Level 3.6, Magnesium Level 1.3L, Total Bilirubin 0.4, Aspartate Amino Transf (AST/SGOT) 17, Alanine Aminotransferase (ALT/SGPT) 10L, Alkaline Phosphatase 126H, Total Protein 6.2L, Albumin 2.5L, Globulin 3.7, Albumin/Globulin Ratio 0.7L Height (Feet): 5 Height (Inches): 7.00 Weight (Pounds): 150 General Appearance: alert EENT: PERRL/EOMI Neck: supple Cardiovascular: normal rate Respiratory/Chest: decreased breath sounds Abdomen: normal bowel sounds, non tender, soft Extremities: non-tender Assessment/Plan Status: stable Assessment/Plan: iron def anemia mild elevated CEA lymphoma on chemo covid positive neg stool ob iv iron fu H&H needs out patient fu for colonoscopy fu oncology Patrick Carter MD Apr 19, 2020 10:12
[2020-04-19] MEDS ORDERED: Omnipaque-300 100ml vial INJ PRN (12:00)
[2020-04-19] MEDS ORDERED: Omnipaque 350 100ml vial INJ PRN (12:00)
--- NOTE | 2020-04-19 12:01 | Pulmonology Progress Note ---
Subjective ROS Limited/Unobtainable: Yes Interval Events: none new reported Constitutional: Denies: fever, chills, fatigue HEENT: Repors: no symptoms; Denies: visual change, discharge Respiratory: Reports: no symptoms, dry cough - intermittent dry cough; Denies: shortness of breath, wheezing Cardiovascular: Reports: no symptoms Gastrointestinal/Abdominal: Reports: no symptoms; Denies: nausea, vomiting, diarrhea Psychiatric: Denies: depression Skin: Denies: rash Musculoskeletal: Denies: pain Allergies: Coded Allergies: No Known Allergies (Unverified , 04/11/20) Objective Last 24 Hour Vital Signs Date Time Temp Pulse Resp B/P (MAP) Pulse Ox O2 Delivery O2 Flow Rate FiO2 04/19/20 08:00 100.0 110 19 108/67 (81) 96 04/19/20 06:00 105 100/71 04/19/20 04:00 97.5 105 20 100/71 (81) 99 04/19/20 00:00 99 90/52 04/19/20 00:00 97.3 91 20 98/63 (75) 99 04/18/20 21:00 Nasal Cannula 2.0 04/18/20 20:00 97.7 99 20 90/52 (65) 99 04/18/20 19:45 95 Nasal Cannula 2.0 28 04/18/20 18:30 99.1 04/18/20 17:54 105 103/60 04/18/20 16:00 101.7 105 20 103/60 (74) 96 04/18/20 12:00 98.1 102 20 101/53 (69) 95 04/18/20 12:00 102 101/53 Intake and Output 04/18/20 04/19/20 19:00 07:00 Intake Total 50 ml 1107.416 ml Output Total 1300 ml 1700 ml Balance -1250 ml -592.584 ml IV Total 50 ml 1107.416 ml Output Urine Total 1300 ml 1700 ml Objective 04/19/2020 pt saturating well on 2 lpm NC; NAD 04/18/2020 pt saturating well on 2 lpm NC General Appearance: WD/WN, no acute distress HEENT: normocephalic, atraumatic Respiratory: lungs clear Cardiovascular: normal rate, regular rhythm Abdomen: soft, non tender Genitourinary: other - Morales Extremities: no edema Laboratory Tests 04/18/20 18:07: Urine Color Pale yellow, Urine Appearance Clear, Urine pH 7, Urine Specific [place] 1.030, Urine Protein Negative, Urine Glucose (UA) Negative, Urine Ketones Negative, Urine Blood Negative, Urine Nitrite Negative, Urine Bilirubin Negative, Urine Urobilinogen Normal, Urine Leukocyte Esterase Negative 04/19/20 04:00: White Blood Count 2.9L, Red Blood Count 3.13L, Hemoglobin 8.6L, Hematocrit 25.1L , Mean Corpuscular Volume 80, Mean Corpuscular Hemoglobin 27.5, Mean Corpuscular Hemoglobin Concent 34.2, Red Cell Distribution Width 18.6H, Platelet Count 344, Mean Platelet Volume 5.2L, Neutrophils (%) (Auto) , Lymphocytes (%) (Auto) , Monocytes (%) (Auto) , Eosinophils (%) (Auto) , Basophils (%) (Auto) , Differential Total Cells Counted 100, Neutrophils % (Manual) 60, Lymphocytes % (Manual) 33, Monocytes % (Manual) 3, Eosinophils % (Manual) 4H, Basophils % (Manual) 0, Band Neutrophils 0, Platelet Estimate Adequate, Platelet Morphology Normal, Hypochromasia 1+, Anisocytosis 1+, Sodium Level 141, Potassium Level 4.1, Chloride Level 105, Carbon Dioxide Level 28, Anion Gap 8, Blood Urea Nitrogen 5L, Creatinine 0.5L, Estimat Glomerular Filtration Rate > 60, Glucose Level 85, Calcium Level 8.6, Phosphorus Level 3.6, Magnesium Level 1.3L, Total Bilirubin 0.4, Aspartate Amino Transf (AST/SGOT) 17, Alanine Aminotransferase (ALT/SGPT) 10L, Alkaline Phosphatase 126H, Total Protein 6.2L, Albumin 2.5L, Globulin 3.7, Albumin/Globulin Ratio 0.7L Current Medications Medications (Trade) Dose Ordered Sig/Angelika Route PRN Reason Start Time Stop Time Status Last Admin Dose Admin Acetaminophen (Tylenol) 650 mg Q6H PRN ORAL Mild Pain (Pain Scale 1-3) 04/12/20 02:45 05/12/20 02:44 04/18/20 18:00 Acetaminophen (Tylenol) 650 mg Q6H PRN ORAL FEVER 04/12/20 16:30 05/12/20 16:29 04/18/20 03:40 Allopurinol (allopurinoL) 300 mg DAILY ORAL 04/12/20 09:00 05/12/20 08:59 04/19/20 09:44 Baclofen (Lioresal) 10 mg THREE TIMES A DAY ORAL 04/12/20 09:00 05/12/20 08:59 04/19/20 09:44 Chlorhexidine Gluconate (Christy-Hex 2%) 1 applic DAILY@2000 TOPIC 04/12/20 20:00 07/11/20 19:59 04/18/20 21:40 Dextrose/ Electrolytes 1,000 ml @ 50 mls/hr Q20H IV 04/14/20 12:00 05/14/20 11:59 04/18/20 18:00 Diltiazem HCl (Cardizem Tab) 30 mg QID@0000,0600,1200,1800 ORAL 04/12/20 06:00 05/12/20 05:59 04/17/20 05:28 Enoxaparin Sodium (Lovenox) 40 mg DAILY SUBQ 04/18/20 10:00 07/17/20 09:59 Iron Sucrose 100 mg/Sodium Chloride 60 ml @ 240 mls/hr BEDTIME IVPB 04/18/20 21:00 04/22/20 21:14 04/18/20 21:40 Magnesium Sulfate 100 ml @ 100 mls/hr Q1H IVPB 04/19/20 09:00 04/19/20 11:59 04/19/20 09:44 Morphine Sulfate (Morphine Sulfate) 1 mg Q3H PRN IVP Moderate Pain (Pain Scale 4-6) 04/19/20 06:15 04/26/20 06:14 Morphine Sulfate (Morphine Sulfate) 2 mg Q3H PRN IVP Severe Pain (Pain Scale 7-10) 04/19/20 06:15 04/26/20 06:14 04/19/20 09:45 Ondansetron HCl (Zofran) 4 mg Q6H PRN IVP Nausea & Vomiting 04/19/20 11:15 05/19/20 11:14 Vancomycin HCl (Vanco pharmacy to dose) 1 ea DAILY PRN MISC Per rx protocol 04/12/20 04:15 05/12/20 04:14 Vancomycin HCl 1 gm/Dextrose 275 ml @ 183.708 mls/hr Q12HR@1100,2300 IVPB 04/17/20 23:00 04/22/20 22:59 04/18/20 22:20 Assessment/Plan Assessment/Plan 1. COVID-19 positivity. - no indication for any steroid or remdesivir given her normoxemia at this time - Antibiotics per ID 2. Immunocompromised state with history of non-Hodgkin lymphoma. 3. Fever. 4. Hypertension. 5. Gout. DVT ppx - on SCD; pt declined lovenox We will follow. The care for this patient was discussed with my supervising physician Time spent for this case was approximately 31 minutes The patient was seen and examined at bedside and all new and available data was reviewed in the patients chart. I agree with the above findings, impression, and plan. (Patient was seen earlier today. Signature timestamp does not reflect patient encounter time) Joaquín Fernandez MD Apr 19, 2020 12:01 Ricky Jordan MD Apr 19, 2020 17:37
[2020-04-19] MEDS: Vancomycin 1 GM in D5W 275 ML IVPB SCH (12:30)
--- NOTE | 2020-04-19 13:44 | NUR ---
PT NOTE Received MD order for PT evaluation. Attempted to see patient for evaluation, patient declined to participate. Chris RN notified, will follow up tomorrow.
--- NOTE | 2020-04-19 14:41 | Diagnostic Imaging Report ---
Indication: Bilateral lower extremity pain Technique: Grayscale and duplex images of the bilateral lower extremity veins Comparison: None Findings: Bilaterally, grayscale and duplex images demonstrate no evidence of intraluminal thrombus. Normal phasic Doppler waveforms, demonstrating normal augmentation response and no evidence of valvular insufficiency. Greater saphenous vein(s) and tibial veins are patent. Normal compressibility. Impression: Negative for evidence of lower extremity deep venous thrombosis bilaterally
--- NOTE | 2020-04-19 15:26 | NUR ---
CASE MANAGEMENT:REVIEW SI;COVID PNEUMONIA 100.0 110 20 100/71 96% 2L NC WBC 2.9 H/H 8.6/25.1 MAG 1.3 ALP 126 ALB 2.5 IS;MAG SULFATE IV VENOFER IV QD LOVENOX SQ QD VANCOMYCIN IV Q12 IVF D5W @ 50 ML/HR DILTIAZEM PO QID MED SURG STATUS DCP;FROM [facility]
--- NOTE | 2020-04-19 15:40 | Diagnostic Imaging Report ---
ndication: Chest pain Technique: IV administration nonionic contrast. Spiral acquisitions obtained from the lung bases to the lung apices. Multiplanar and 3-D reconstructions were generated. Total dose length product 511 mGycm. CTDIvol(s) 1, 13, 5, 7 mGy. Dose reduction achieved using automated exposure control Comparison: none Findings: The pulmonary arteries are well-opacified. No intraluminal filling defects or other findings to suggest acute pulmonary embolus are demonstrated. Normal caliber pulmonary arteries. No evidence of right ventricular dilatation. No evidence of thoracic aortic aneurysm or dissection. Normal caliber and branching anatomy of the great neck vessels. The lungs demonstrate linear and some confluent opacities associated with bronchiectasis in the right upper lobe, presumably reflecting areas of scarring. There is a very slight mosaic attenuation pattern of the right upper lobe. Some scarring is also seen in the anterior inferior right upper lobe. Single minimal focus of atelectasis or scarring is seen in the right middle lobe. Posterior medial opacity in the right lower lobe likely represents scarring or some atelectasis, as do linear opacities in the right lower lobe. There is peripheral opacity in the left lower lobe. This probably reflects scarring associated with some volume loss as there is also bronchiectasis. There are some posterior atelectasis or scarring in the left upper lobe. No dense consolidation, groundglass opacities or pleural effusions are demonstrated. No definite masses or nodules. There is a small sliding-type hiatal hernia. The heart size is upper limits of normal. No mediastinal or hilar mass or adenopathy. Right arm PICC noted. The included portion of the thyroid is unremarkable. No axillary or chest wall mass or adenopathy. The bones demonstrate postsurgical changes of the upper thoracic spine, with evidence of multilevel laminectomy. There is also evidence of prior compression fracture deformity and vertebral augmentation procedure at T12 Please refer to separate CT abdomen pelvis report for discussion of findings in the included upper abdomen.. Impression: No evidence of acute pulmonary embolus or other acute thoracic vascular pathology. Areas of consolidation and volume loss with associated bronchiectasis most likely represent areas of scarring and atelectasis. Note definite acute infiltrates. Other findings as noted, including evidence of prior upper thoracic spine surgery, T12 compression fracture deformity and evidence of prior vertebral augmentation procedure, sliding-type hiatal hernia, PICC The CT scanner at [facility] is accredited by the [employer] and the scans are performed using protocols designed to limit radiation exposure to as low as reasonably achievable to attain images of sufficient resolution adequate for diagnostic evaluation.
--- NOTE | 2020-04-19 15:51 | Diagnostic Imaging Report ---
Clinical Indication: Fever, infection, abdominal pain Technique: Patient given oral contrast. IV administration nonionic contrast. Venous phase spiral acquisition obtained through the abdomen and pelvis. Multiplanar reconstructions were generated. Total dose length product 511 mGycm. CTDIvol(s) 1, 13, 5, 7 mGy. Dose reduction achieved using automated exposure control Comparison: none Findings: The appendix is normal. No evidence of diverticulosis or diverticulitis. There is minimal distention of the rectum with feces. There is equivocal slight thickening of the rectal wall and stranding of the perirectal fat. No small bowel distention or small bowel wall thickening. Stomach, duodenum are unremarkable. No free or loculated intraperitoneal gas or fluid is evident. There is a small sliding-type hiatal hernia. The gallbladder is nondistended. Liver is unremarkable. No biliary ductal dilatation. The pancreas, spleen, adrenals are unremarkable. Both kidneys demonstrate subcentimeter low-attenuation lesions which are too small to characterize, most likely benign simple cysts. No retroperitoneal or mesenteric mass or adenopathy. No pelvic mass or adenopathy. The bladder contains a Morales catheter. A small gas bubble within the bladder lumen likely related to the Morales catheterization. Normal uterus and adnexal structures. The included lung bases are discussed in report of separate CT chest performed the same time There is an comminuted fracture deformity of the left femoral head, neck, and intertrochanteric region. This is completely ununited, although abundant soft tissue surrounding the fracture area raises possibility that this could be chronic. There is a mild compression fracture deformity of the T12 vertebral body, and there is evidence of prior vertebral augmentation procedure. Impression: Minimal distention of the rectum with feces, could represent mild rectal fecal impaction. Equivocal slight thickening of the rectal wall and stranding of the perirectal fat, if real could indicate mild stercoral proctitis Comminuted fracture of the left femoral head, neck, and intertrochanteric region, ununited. Possibly acute, but abundant soft tissues surrounding the fracture area raises possibility that this could be chronic. Correlate with clinical findings Other findings as noted, including evidence of old T12 vertebral body compression fracture and prior vertebral augmentation procedure, Morales catheter, subcentimeter low-attenuation lesions which probably represent renal cysts, small sliding-type hiatal hernia The CT scanner at [facility] is accredited by the [employer] and the scans are performed using protocols designed to limit radiation exposure to as low as reasonably achievable to attain images of sufficient resolution adequate for diagnostic evaluation.
--- NOTE | 2020-04-19 17:25 | NUR ---
*-*DISCHARGE PLANNING*-* PATIENT HAS BEEN REFERRED TO: [facility] P: [phone] S/W TAMIKO, WILL CALL BACK TO FOLLOW UP AFTER REVIEW.
--- NOTE | 2020-04-19 19:53 | General Progress Note ---
Subjective Allergies: Coded Allergies: No Known Allergies (Unverified , 04/11/20) Subjective Patient continues to spike fevers to 101. No symptoms. No cough, SOB. Has some chest tightness, intermittent, non-pleuritic and non-exertional. No other complaints. Review of systems: Constitutional: Denies: chills, diaphoresis, malaise, weakness, + Fevers HEENT: Denies: eye pain, blurred vision, tearing, double vision, ear pain, ear discharge, nose pain, nose congestion, throat pain, throat swelling, mouth pain, mouth swelling, Cardiovascular: Denies: chest pain, edema, lightheadedness, palpitations, syncope, Respiratory: Denies: cough, orthopnea, shortness of breath, SOB with excertion, SOB at rest, Gastrointestinal/Abdominal: Denies: abdomen distended, abdominal pain, black stools, tarry stools, blood in stool, constipated, diarrhea, difficulty swallowing, nausea, poor appetite, poor fluid intake, rectal bleeding, vomiting, other Genitourinary: Denies: burning, discharge, frequency, flank pain, hematuria, incontinence, pain, urgency, other Neurologic/Psychiatric: Denies: anxiety, depressed, emotional problems, headache, numbness, paresthesia, pre-existing deficit, seizure, tingling, tremors, weakness, other Endocrine: Denies: excessive sweating, flushing, intolerance to cold, intolerance to heat, increased hunger, increased thirst MSK: denies joint pains, swelling, stiffness Hematologic/Lymphatic: Denies: anemia, easy bleeding, easy bruising, Objective Last 24 Hour Vital Signs Date Time Temp Pulse Resp B/P (MAP) Pulse Ox O2 Delivery O2 Flow Rate FiO2 04/19/20 17:06 111 114/72 04/19/20 16:13 100.0 04/19/20 16:00 100.0 111 19 114/72 (86) 97 04/19/20 15:48 102.2 04/19/20 15:40 102.2 111 19 114/72 (86) 97 04/19/20 12:31 102 112/71 04/19/20 12:00 98.6 102 19 112/71 (85) 97 04/19/20 10:15 98.6 04/19/20 09:00 Nasal Cannula 2.0 04/19/20 08:00 100.0 110 19 108/67 (81) 96 04/19/20 06:00 105 100/71 04/19/20 04:00 97.5 105 20 100/71 (81) 99 04/19/20 00:00 99 90/52 04/19/20 00:00 97.3 91 20 98/63 (75) 99 04/18/20 21:00 Nasal Cannula 2.0 04/18/20 20:00 97.7 99 20 90/52 (65) 99 Intake and Output 04/18/20 04/19/20 19:00 07:00 Intake Total 50 ml 1107.416 ml Output Total 1300 ml 1700 ml Balance -1250 ml -592.584 ml IV Total 50 ml 1107.416 ml Output Urine Total 1300 ml 1700 ml Laboratory Tests 04/19/20 04:00: White Blood Count 2.9L, Red Blood Count 3.13L, Hemoglobin 8.6L, Hematocrit 25.1L , Mean Corpuscular Volume 80, Mean Corpuscular Hemoglobin 27.5, Mean Corpuscular Hemoglobin Concent 34.2, Red Cell Distribution Width 18.6H, Platelet Count 344, Mean Platelet Volume 5.2L, Neutrophils (%) (Auto) , Lymphocytes (%) (Auto) , Monocytes (%) (Auto) , Eosinophils (%) (Auto) , Basophils (%) (Auto) , Differential Total Cells Counted 100, Neutrophils % (Manual) 60, Lymphocytes % (Manual) 33, Monocytes % (Manual) 3, Eosinophils % (Manual) 4H, Basophils % (Manual) 0, Band Neutrophils 0, Platelet Estimate Adequate, Platelet Morphology Normal, Hypochromasia 1+, Anisocytosis 1+, Sodium Level 141, Potassium Level 4.1, Chloride Level 105, Carbon Dioxide Level 28, Anion Gap 8, Blood Urea Nitrogen 5L, Creatinine 0.5L, Estimat Glomerular Filtration Rate > 60, Glucose Level 85, Calcium Level 8.6, Phosphorus Level 3.6, Magnesium Level 1.3L, Total Bilirubin 0.4, Aspartate Amino Transf (AST/SGOT) 17, Alanine Aminotransferase (ALT/SGPT) 10L, Alkaline Phosphatase 126H, Total Protein 6.2L, Albumin 2.5L, Globulin 3.7, Albumin/Globulin Ratio 0.7L Height (Feet): 5 Height (Inches): 7.00 Weight (Pounds): 150 Objective General: WDWN female in NAD, A&O x 4 HEENT: Normocephalic cephalic atraumatic, pupils equal round reactive to light and accommodation, nares patent and no symmetrical, no tonsillar exudates, mucous membranes moist CV: Regular rate regular rhythm, no murmurs, rubs, or gallops + POrt site is C/d/i. Pulm: Lungs clear to auscultation bilaterally. No wheezes, rhonchi, or rales GI: Soft, nontender, nondistended, bowel sounds present + eaton in place Neuro: CN 2-12 intact bilaterally, no focal signs. Moving all extremities Ext: No lower extremity edema bilaterally Skin: no rashes lesions or ulcers Msk: Joints symmetrical in upper extremity and lower extremity bilaterally, no joint swelling. Lymph: No lymphadenopathy in upper extremity and lower extremity Assessment/Plan Status: stable Assessment/Plan: #Hx of Sepsis 2' port infection #Sepsis due to COVID 19 pneumonia (febrile, tachycardic) #COVID 19+ - CTM Fever curve. Could be due to underlying malignancy - Repeat Blood culture today 04/18 - Repeat UA: negative - Repeat CXR: Bronchial thickening - Check CT C/A/P including CT angio to eval for PE. - IV fluids x 1 day - D/W ID. - Defer Covid19 tx to ID - Port has been removed at OSH - [facility] - ngtd - Cefepime (04/14 - 04/15) - Per patient she is to continue on Vancomycin till 04/25 - ID Consult, appreciate recs - PT eval #Acute blood loss anemia - resolving #anemia of chronic disease #Normocytic anemia Patient presented with Hb 6.7 with normal MCV. History of lymphoma per patient and is receiving chemo tx, last known to be February 2020. - 2U PRBCs ordered and transfused on admission - Hb Stable - Rectic count wnl, Iron and Iron sat low, Ferritin wnl - No active signs of bleeding - Hematology consulted, appreciate recs - CTM for signs of bleeding - Patient will need colonoscopy as outpatient in the future : Gi Consulted; Dr. Carter #Hx of Lymphoma - All information per patient - Oncology following, appreciate recs - Can continue current therapy with outpatient onc - No acute interventions needed inpatient #Hypokalemia #hypomagnesia - Lytes replaced #Chronic Back pain - Resume Baclofen, norco, tramadol Full Code Regular Diet Dispo - Discharge back to SNF. 38 minutes spent on this encounter, and 22 minutes spent on counseling and care coordination. Discussed with ID, heme/onc, RN time of note does not reflect time of encounter. Jus Brunner D.O. Apr 19, 2020 19:53
--- NOTE | 2020-04-19 20:02 | Infectious Diseases Prog Note ---
Assessment/Plan Assessment/Plan A) 1) covid-19 virus infection with fevers, saturations stable, CT A/P/C - no obvious pna or abscess 2) hx lymphoma and chemo, history of port line infection and finishing vancomycin treatment course - end date per patient 3) hx anemia 4) allergies - nkda, fh-nc, sh-negative 5) d/w RN 6) notes and records noted P) 1) no indication for covid-19 treatment currently, no hypoxia 2) finish vancomycin for previous port-line infection - 04/25/20 end date per patient 3) monitor labs, monitor for hypoxia, monitor feves 4) will f/u 5) d/w patient Subjective Constitutional: Reports: fever, fatigue HEENT: Denies: congestion Respiratory: Denies: shortness of breath Cardiovascular: Denies: chest pain Gastrointestinal/Abdominal: Denies: nausea, vomiting, diarrhea Genitourinary: Denies: dysuria, hematuria Neurologic: Denies: headache Psychiatric: Denies: depression Skin: Denies: rash Hematologic: Denies: bleeding Musculoskeletal: Denies: pain Allergies: Coded Allergies: No Known Allergies (Unverified , 04/11/20) Objective Last 24 Hour Vital Signs Date Time Temp Pulse Resp B/P (MAP) Pulse Ox O2 Delivery O2 Flow Rate FiO2 04/19/20 17:06 111 114/72 04/19/20 16:13 100.0 04/19/20 16:00 100.0 111 19 114/72 (86) 97 04/19/20 15:48 102.2 04/19/20 15:40 102.2 111 19 114/72 (86) 97 04/19/20 12:31 102 112/71 04/19/20 12:00 98.6 102 19 112/71 (85) 97 04/19/20 10:15 98.6 04/19/20 09:00 Nasal Cannula 2.0 04/19/20 08:00 100.0 110 19 108/67 (81) 96 04/19/20 06:00 105 100/71 04/19/20 04:00 97.5 105 20 100/71 (81) 99 04/19/20 00:00 99 90/52 04/19/20 00:00 97.3 91 20 98/63 (75) 99 04/18/20 21:00 Nasal Cannula 2.0 04/18/20 20:00 97.7 99 20 90/52 (65) 99 Height (Feet): 5 Height (Inches): 7.00 Weight (Pounds): 150 General Appearance: no acute distress HEENT: normocephalic, atraumatic, anicteric, mucous membranes moist Respiratory/Chest: lungs clear, normal breath sounds, no respiratory distress, no accessory muscle use Cardiovascular: normal rate, regular rhythm, no gallop/murmur, no JVD Abdomen: normal bowel sounds, soft, non tender, no organomegaly, non distended Genitourinary: other - no eaton Extremities: no cyanosis Skin: no rash Neurologic/Psychiatric: 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 There is diffuse interstitial prominence. No airspace consolidation. No pneumothorax or pleural effusion. No acute osseous abnormality. Right approach PICC terminates in the expected location of mid SVC IMPRESSION: Diffuse interstitial prominence, which is nonspecific but may be related to peribronchial thickening in the setting of infectious/inflammatory airways disease or interstitial edema. CT angio chest: Impression: No evidence of acute pulmonary embolus or other acute thoracic vascular pathology. Areas of consolidation and volume loss with associated bronchiectasis most likely represent areas of scarring and atelectasis. Note definite acute infiltrates. Other findings as noted, including evidence of prior upper thoracic spine surgery, T12 compression fracture deformity and evidence of prior vertebral augmentation procedure, sliding-type hiatal hernia, PICC CT abdomen and pelvis: Impression: Minimal distention of the rectum with feces, could represent mild rectal fecal impaction. Equivocal slight thickening of the rectal wall and stranding of the perirectal fat, if real could indicate mild stercoral proctitis Comminuted fracture of the left femoral head, neck, and intertrochanteric region, ununited. Possibly acute, but abundant soft tissues surrounding the fracture area raises possibility that this could be chronic. Correlate with clinical findings Other findings as noted, including evidence of old T12 vertebral body compression fracture and prior vertebral augmentation procedure, Eaton catheter, subcentimeter low-attenuation lesions which probably represent renal cysts, small sliding-type hiatal hernia Microbiology Date/Time Source Procedure Growth Status 04/18/20 13:05 Blood Blood Culture - Preliminary NO GROWTH AFTER 24 HOURS Resulted 04/18/20 13:05 Blood Blood Culture - Preliminary NO GROWTH AFTER 24 HOURS Resulted Laboratory Tests Test 04/19/20 04:00 White Blood Count 2.9 K/UL (4.8-10.8) L Red Blood Count 3.13 M/UL (4.20-5.40) L Hemoglobin 8.6 G/DL (12.0-16.0) L Hematocrit 25.1 % (37.0-47.0) L Mean Corpuscular Volume 80 FL (80-99) Mean Corpuscular Hemoglobin 27.5 PG (27.0-31.0) Mean Corpuscular Hemoglobin Concent 34.2 G/DL (32.0-36.0) Red Cell Distribution Width 18.6 % (11.6-14.8) H Platelet Count 344 K/UL (150-450) Mean Platelet Volume 5.2 FL (6.5-10.1) L Neutrophils (%) (Auto) % (45.0-75.0) Lymphocytes (%) (Auto) % (20.0-45.0) Monocytes (%) (Auto) % (1.0-10.0) Eosinophils (%) (Auto) % (0.0-3.0) Basophils (%) (Auto) % (0.0-2.0) Differential Total Cells Counted 100 Neutrophils % (Manual) 60 % (45-75) Lymphocytes % (Manual) 33 % (20-45) Monocytes % (Manual) 3 % (1-10) Eosinophils % (Manual) 4 % (0-3) H Basophils % (Manual) 0 % (0-2) Band Neutrophils 0 % (0-8) Platelet Estimate Adequate Platelet Morphology Normal Hypochromasia 1+ Anisocytosis 1+ Sodium Level 141 MMOL/L (136-145) Potassium Level 4.1 MMOL/L (3.5-5.1) Chloride Level 105 MMOL/L (98-107) Carbon Dioxide Level 28 MMOL/L (21-32) Anion Gap 8 mmol/L (5-15) Blood Urea Nitrogen 5 mg/dL (7-18) L Creatinine 0.5 MG/DL (0.55-1.30) L Estimat Glomerular Filtration Rate > 60 mL/min (>60) Glucose Level 85 MG/DL (74-106) Calcium Level 8.6 MG/DL (8.5-10.1) Phosphorus Level 3.6 MG/DL (2.5-4.9) Magnesium Level 1.3 MG/DL (1.8-2.4) L Total Bilirubin 0.4 MG/DL (0.2-1.0) Aspartate Amino Transf (AST/SGOT) 17 U/L (15-37) Alanine Aminotransferase (ALT/SGPT) 10 U/L (12-78) L Alkaline Phosphatase 126 U/L (46-116) H Total Protein 6.2 G/DL (6.4-8.2) L Albumin 2.5 G/DL (3.4-5.0) L Globulin 3.7 g/dL Albumin/Globulin Ratio 0.7 (1.0-2.7) L Current Medications Medications (Trade) Dose Ordered Sig/Angelika Route PRN Reason Start Time Stop Time Status Last Admin Dose Admin Acetaminophen (Tylenol) 650 mg Q6H PRN ORAL Mild Pain (Pain Scale 1-3) 04/12/20 02:45 05/12/20 02:44 04/18/20 18:00 Acetaminophen (Tylenol) 650 mg Q6H PRN ORAL FEVER 04/12/20 16:30 05/12/20 16:29 04/19/20 15:43 Allopurinol (allopurinoL) 300 mg DAILY ORAL 04/12/20 09:00 05/12/20 08:59 04/19/20 09:44 Baclofen (Lioresal) 10 mg THREE TIMES A DAY ORAL 04/12/20 09:00 05/12/20 08:59 04/19/20 09:44 Barium Sulfate (Readi-Cat 2) 450 ml NOW PRN ORAL Radiology Procedure 04/19/20 12:00 04/21/20 11:59 Chlorhexidine Gluconate (Christy-Hex 2%) 1 applic DAILY@2000 TOPIC 04/12/20 20:00 07/11/20 19:59 04/18/20 21:40 Dextrose/ Electrolytes 1,000 ml @ 50 mls/hr Q20H IV 04/14/20 12:00 05/14/20 11:59 04/19/20 12:32 Diltiazem HCl (Cardizem Tab) 30 mg QID@0000,0600,1200,1800 ORAL 04/12/20 06:00 05/12/20 05:59 04/19/20 12:31 Enoxaparin Sodium (Lovenox) 40 mg DAILY SUBQ 04/18/20 10:00 07/17/20 09:59 Iohexol (OMNIPAQUE-300 100ml) 100 ml ONCE PRN INJ RADIOLOGY 04/19/20 12:00 04/21/20 11:59 Iohexol (Omnipaque 350 100ml) 100 ml NOW PRN INJ Radiology Procedure 04/19/20 12:00 04/21/20 11:59 Iron Sucrose 100 mg/Sodium Chloride 60 ml @ 240 mls/hr BEDTIME IVPB 04/18/20 21:00 04/22/20 21:14 04/18/20 21:40 Morphine Sulfate (Morphine Sulfate) 1 mg Q3H PRN IVP Moderate Pain (Pain Scale 4-6) 04/19/20 06:15 04/26/20 06:14 Morphine Sulfate (Morphine Sulfate) 2 mg Q3H PRN IVP Severe Pain (Pain Scale 7-10) 04/19/20 06:15 04/26/20 06:14 04/19/20 15:18 Ondansetron HCl (Zofran) 4 mg Q6H PRN IVP Nausea & Vomiting 04/19/20 13:30 05/19/20 13:29 Vancomycin HCl (Vanco pharmacy to dose) 1 ea DAILY PRN MISC Per rx protocol 04/12/20 04:15 05/12/20 04:14 Vancomycin HCl 1 gm/Dextrose 275 ml @ 183.708 mls/hr Q12HR@1100,2300 IVPB 04/17/20 23:00 04/22/20 22:59 04/19/20 12:30 Marko Rivera MD Apr 19, 2020 20:02
--- NOTE | 2020-04-19 20:25 | NUR ---
NURSE HAND-OFF: Important Events on Shift: Magnesiume Replacement, CT Chest Abdomen and Pelvis, CTA Chest. Patient Status: Stable Diet: Regular with Ensure BID Pending Orders: Vanco trough 04/19/20 @2200 Pending Results/Labs:am labs. Pending MD notification: Latest Vital Signs: Temperature 100.0 , Pulse 111 , B/P 114 /72 , Respiratory Rate 19 , O2 SAT 97 , Nasal Cannula, O2 Flow Rate 2.0 . Vital Sign Comment: Had a temperature today, gave aspiration with resolution. Latest [place] Fall Score: 35 Fall Risk: Medium Risk Safety Measures: Call light Within Reach, Bed Alarm Zone 1, Side Rails Side Rails x3, Bed position Low and Locked. Fall Precautions: Yellow Socks Yellow Gown Door Sign Patient Fall Education Report given to Cary Silverman RN.
[2020-04-19] MEDS: Iron Sucrose 100 MG in NS 55 ML IVPB SCH (20:54)
[2020-04-19] MEDS: Dyna-Hex 2% Top Sol 2oz TOPIC SCH (20:55)
[2020-04-20] VITALS: BP 100/55
[2020-04-20] MEDS: Vancomycin 1 GM in D5W 275 ML IVPB SCH ×3 (00:14→23:27)
[2020-04-20 04:00] VITALS: BP 100/40
[2020-04-20] MEDS: Morphine Sulfate 2mg/ml Inj(IV/IM USE ONLY) IVP PRN ×5 (04:05→23:27)
[2020-04-20] MEDS: dilTIAZem HCl 30mg tab ORAL SCH ×2 (06:00)
--- NOTE | 2020-04-20 06:40 | Hematology/Onc Progress Note ---
Assessment/Plan Assessment/Plan # Leukopenia COVID19++++++++++ --> hep and hiv order as needed --> wbc 4-->3-->2.9 --> isolation if anc<500 # Non-Hodgkins Lymphoma is s/p chemotherapy in the past --> to return to [facility] for further treatment --> likely for ct/pet as outpatient --> CT Here shows no e/o disease --> imaging has been reviewed thus far --> end date of 04/2020 # Anemia likely of chronic disease -- does not appear to have iron deficiency --> transfuse as needed, tibc and ferritin are cw acd --> hgb 7.8-->8.6-->8.5 --> no hemolysis is noted --> s/p transfusion on admission # Covid 19++ with SIRS (febrile, tachycardic) --> per pulm and id --> CXR with diffuse non-specific inflammatory/infectious process --> s/p Cefepime (04/14 - 04/15) # Hypokalemia # Hypomagnesia # Chronic Back pain # Full Code Appreciate consultation and dw Rn Subjective Constitutional: Denies: no symptoms, chills, fever, malaise, weakness, other HEENT: Denies: no symptoms, eye pain, blurred vision, tearing, double vision, ear pain, ear discharge, nose pain, nose congestion, throat pain, throat swelling, mouth pain, mouth swelling, other Cardiovascular: Denies: no symptoms, chest pain, edema, irregular heart rate, lightheadedness, palpitations, syncope, other Respiratory: Denies: no symptoms, cough, shortness of breath, SOB with excertion, SOB at rest, sputum, wheezing, other Gastrointestinal/Abdominal: Denies: no symptoms, abdomen distended, abdominal pain, black stools, tarry stools, blood in stool, constipated, diarrhea, difficulty swallowing, nausea, poor appetite, poor fluid intake, rectal bleeding, vomiting, other Genitourinary: Denies: no symptoms, burning, discharge, frequency, flank pain, hematuria, incontinence, pain, urgency, other Endocrine: Denies: no symptoms, excessive sweating, flushing, intolerance to cold, intolerance to heat, increased hunger, increased thirst, increased urine, unexplained weight gain, unexplained weight loss, other Allergies: Coded Allergies: No Known Allergies (Unverified , 04/11/20) Subjective 04/17 is on room air, more comfortable, potential dc to snf 04/18 labs reviewed, no bleeding, meds noted, no night sweats 04/19 sleeping comfortably, no major events, no night sweats 04/20 meds noted, labs reviewed, wbc 2.9, hep and hiv is neg Objective Objective Current Medications Medications (Trade) Dose Ordered Sig/Angelika Route PRN Reason Start Time Stop Time Status Last Admin Dose Admin Acetaminophen (Tylenol) 650 mg Q6H PRN ORAL Mild Pain (Pain Scale 1-3) 04/12/20 02:45 05/12/20 02:44 04/18/20 18:00 Acetaminophen (Tylenol) 650 mg Q6H PRN ORAL FEVER 04/12/20 16:30 05/12/20 16:29 04/19/20 15:43 Allopurinol (allopurinoL) 300 mg DAILY ORAL 04/12/20 09:00 05/12/20 08:59 04/19/20 09:44 Baclofen (Lioresal) 10 mg THREE TIMES A DAY ORAL 04/12/20 09:00 05/12/20 08:59 04/19/20 09:44 Barium Sulfate (Readi-Cat 2) 450 ml NOW PRN ORAL Radiology Procedure 04/19/20 12:00 04/21/20 11:59 Chlorhexidine Gluconate (Christy-Hex 2%) 1 applic DAILY@2000 TOPIC 04/12/20 20:00 07/11/20 19:59 04/19/20 20:55 Dextrose/ Electrolytes 1,000 ml @ 50 mls/hr Q20H IV 04/14/20 12:00 05/14/20 11:59 04/19/20 12:32 Diltiazem HCl (Cardizem Tab) 30 mg QID@0000,0600,1200,1800 ORAL 04/12/20 06:00 05/12/20 05:59 04/19/20 12:31 Enoxaparin Sodium (Lovenox) 40 mg DAILY SUBQ 04/18/20 10:00 07/17/20 09:59 Iohexol (OMNIPAQUE-300 100ml) 100 ml ONCE PRN INJ RADIOLOGY 04/19/20 12:00 04/21/20 11:59 Iohexol (Omnipaque 350 100ml) 100 ml NOW PRN INJ Radiology Procedure 04/19/20 12:00 04/21/20 11:59 Iron Sucrose 100 mg/Sodium Chloride 60 ml @ 240 mls/hr BEDTIME IVPB 04/18/20 21:00 04/22/20 21:14 04/19/20 20:54 Morphine Sulfate (Morphine Sulfate) 1 mg Q3H PRN IVP Moderate Pain (Pain Scale 4-6) 04/19/20 06:15 04/26/20 06:14 Morphine Sulfate (Morphine Sulfate) 2 mg Q3H PRN IVP Severe Pain (Pain Scale 7-10) 04/19/20 06:15 04/26/20 06:14 04/20/20 04:05 Ondansetron HCl (Zofran) 4 mg Q6H PRN IVP Nausea & Vomiting 04/19/20 13:30 05/19/20 13:29 Vancomycin HCl (Vanco pharmacy to dose) 1 ea DAILY PRN MISC Per rx protocol 04/12/20 04:15 05/12/20 04:14 Vancomycin HCl 1 gm/Dextrose 275 ml @ 183.708 mls/hr Q12HR@1100,2300 IVPB 04/17/20 23:00 04/22/20 22:59 04/20/20 00:14 Last 24 Hour Vital Signs Date Time Temp Pulse Resp B/P (MAP) Pulse Ox O2 Delivery O2 Flow Rate FiO2 04/20/20 06:00 101 100/40 04/20/20 00:00 97.3 107 24 100/55 (70) 96 04/20/20 00:00 107 100/55 04/19/20 21:00 Nasal Cannula 2.0 04/19/20 20:08 95 Nasal Cannula 2.0 28 04/19/20 20:00 97.5 101 16 91/56 (68) 95 04/19/20 17:06 111 114/72 04/19/20 16:13 100.0 04/19/20 16:00 100.0 111 19 114/72 (86) 97 04/19/20 15:48 102.2 04/19/20 15:40 102.2 111 19 114/72 (86) 97 12/16/20 12:31 102 112/71 04/19/20 12:00 98.6 102 19 112/71 (85) 97 04/19/20 10:15 98.6 04/19/20 09:00 Nasal Cannula 2.0 04/19/20 08:00 100.0 110 19 108/67 (81) 96 04/19/20 06:00 105 100/71 04/19/20 04:00 97.5 105 20 100/71 (81) 99 04/19/20 00:00 99 90/52 04/19/20 00:00 97.3 91 20 98/63 (75) 99 04/18/20 21:00 Nasal Cannula 2.0 04/18/20 20:00 97.7 99 20 90/52 (65) 99 04/18/20 19:45 95 Nasal Cannula 2.0 28 04/18/20 18:30 99.1 04/18/20 17:54 105 103/60 04/18/20 16:00 101.7 105 20 103/60 (74) 96 04/18/20 12:00 98.1 102 20 101/53 (69) 95 04/18/20 12:00 102 101/53 04/18/20 09:00 Nasal Cannula 2.0 04/18/20 08:14 98 Room Air 21 04/18/20 08:13 92 16 98 Room Air 21 04/18/20 08:00 98.1 94 20 91/57 (68) 95 Intake and Output 04/19/20 04/20/20 19:00 07:00 Intake Total 1995 ml Output Total 1400 ml 300 ml Balance 595 ml -300 ml Intake Oral 720 ml IV Total 1275 ml Output Urine Total 1400 ml 300 ml Labs Test 04/17/20 09:49 04/18/20 04:00 04/18/20 18:07 04/19/20 04:00 Hepatitis A IgM Antibody Negative (Negative) Hepatitis B Surface Antigen Negative (Negative) Hepatitis B Core IgM Antibody Negative (Negative) Hepatitis C Antibody <0.1 s/co ratio HIV (1&2) Antibody Rapid Negative (NEGATIVE) White Blood Count 3.1 K/UL (4.8-10.8) 2.9 K/UL (4.8-10.8) Red Blood Count 3.11 M/UL (4.20-5.40) 3.13 M/UL (4.20-5.40) Hemoglobin 8.5 G/DL (12.0-16.0) 8.6 G/DL (12.0-16.0) Hematocrit 26.1 % (37.0-47.0) 25.1 % (37.0-47.0) Mean Corpuscular Volume 84 FL (80-99) 80 FL (80-99) Mean Corpuscular Hemoglobin 27.2 PG (27.0-31.0) 27.5 PG (27.0-31.0) Mean Corpuscular Hemoglobin Concent 32.4 G/DL (32.0-36.0) 34.2 G/DL (32.0-36.0) Red Cell Distribution Width 18.1 % (11.6-14.8) 18.6 % (11.6-14.8) Platelet Count 345 K/UL (150-450) 344 K/UL (150-450) Mean Platelet Volume 5.2 FL (6.5-10.1) 5.2 FL (6.5-10.1) Neutrophils (%) (Auto) % (45.0-75.0) % (45.0-75.0) Lymphocytes (%) (Auto) % (20.0-45.0) % (20.0-45.0) Monocytes (%) (Auto) % (1.0-10.0) % (1.0-10.0) Eosinophils (%) (Auto) % (0.0-3.0) % (0.0-3.0) Basophils (%) (Auto) % (0.0-2.0) % (0.0-2.0) Differential Total Cells Counted 100 100 Neutrophils % (Manual) 62 % (45-75) 60 % (45-75) Lymphocytes % (Manual) 26 % (20-45) 33 % (20-45) Monocytes % (Manual) 8 % (1-10) 3 % (1-10) Eosinophils % (Manual) 2 % (0-3) 4 % (0-3) Basophils % (Manual) 0 % (0-2) 0 % (0-2) Band Neutrophils 2 % (0-8) 0 % (0-8) Platelet Estimate Adequate Adequate Platelet Morphology Normal Normal Anisocytosis 1+ 1+ Sodium Level 138 MMOL/L (136-145) 141 MMOL/L (136-145) Potassium Level 3.9 MMOL/L (3.5-5.1) 4.1 MMOL/L (3.5-5.1) Chloride Level 103 MMOL/L (98-107) 105 MMOL/L (98-107) Carbon Dioxide Level 27 MMOL/L (21-32) 28 MMOL/L (21-32) Anion Gap 8 mmol/L (5-15) 8 mmol/L (5-15) Blood Urea Nitrogen 22 mg/dL (7-18) 5 mg/dL (7-18) Creatinine 0.4 MG/DL (0.55-1.30) 0.5 MG/DL (0.55-1.30) Estimat Glomerular Filtration Rate > 60 mL/min (>60) > 60 mL/min (>60) Glucose Level 93 MG/DL (74-106) 85 MG/DL (74-106) Calcium Level 8.4 MG/DL (8.5-10.1) 8.6 MG/DL (8.5-10.1) Urine Color Pale yellow Urine Appearance Clear Urine pH 7 (4.5-8.0) Urine Specific [place]thren 1.030 (1.005-1.035) Urine Protein Negative (NEGATIVE) Urine Glucose (UA) Negative (NEGATIVE) Urine Ketones Negative (NEGATIVE) Urine Blood Negative (NEGATIVE) Urine Nitrite Negative (NEGATIVE) Urine Bilirubin Negative (NEGATIVE) Urine Urobilinogen Normal MG/DL (0.0-1.0) Urine Leukocyte Esterase Negative (NEGATIVE) Hypochromasia 1+ Phosphorus Level 3.6 MG/DL (2.5-4.9) Magnesium Level 1.3 MG/DL (1.8-2.4) Total Bilirubin 0.4 MG/DL (0.2-1.0) Aspartate Amino Transf (AST/SGOT) 17 U/L (15-37) Alanine Aminotransferase (ALT/SGPT) 10 U/L (12-78) Alkaline Phosphatase 126 U/L (46-116) Total Protein 6.2 G/DL (6.4-8.2) Albumin 2.5 G/DL (3.4-5.0) Globulin 3.7 g/dL Albumin/Globulin Ratio 0.7 (1.0-2.7) Test 12/16/20 23:00 Vancomycin Level Trough 17.4 ug/mL (5.0-12.0) Height (Feet): 5 Height (Inches): 7.00 Weight (Pounds): 150 Objective Gen: nad Pulm: ctab, no cwr CV: rrr Abd: soft, nt Ext: no cce Martinez Hill MD Apr 20, 2020 06:40
[2020-04-20 07:36] LABS: HEMATOCRIT 25.2 % (37.0-47.0); MEAN CORPUSCULAR VOLUME 83 FL (80-99); PLATELET COUNT 347 K/UL (150-450); RED BLOOD COUNT 3.03 M/UL (4.20-5.40); WHITE BLOOD COUNT 2.2 K/UL (4.8-10.8)
--- NOTE | 2020-04-20 07:37 | NUR ---
HAND-OFF: Report given to REA Feng.
[2020-04-20 08:00] VITALS: BP 102/71
[2020-04-20 08:12] LABS: ANION GAP 5 mmol/L (5-15); BLOOD UREA NITROGEN 2 mg/dL (7-18); CARBON DIOXIDE 28 MMOL/L (21-32); CHLORIDE 105 MMOL/L (98-107); CREATININE 0.4 MG/DL (0.55-1.30); PHOSPHORUS 3.4 MG/DL (2.5-4.9); POTASSIUM 4.2 MMOL/L (3.5-5.1); SODIUM 138 MMOL/L (136-145)
--- NOTE | 2020-04-20 08:16 | NUR ---
NURSE NOTES: Patient awake and alert and oriented,respirations unlabored.IV picc line intact dressing clean fluids infusing as ordered.Eaton catheter in place with yellow urine noted in eaton drainage bag. Breakfast at bedside,bed alarm on,call light within reach.
[2020-04-20 08:18] LABS: ALANINE AMINOTRANSFERASE 13 U/L (12-78); ALBUMIN 2.4 G/DL (3.4-5.0); ALKALINE PHOSPHATASE 121 U/L (46-116); ASPARTATE AMINO TRANSFERASE 17 U/L (15-37); BILIRUBIN,DIRECT 0.2 MG/DL (0.0-0.3); BILIRUBIN,TOTAL 0.4 MG/DL (0.2-1.0); GAMMA GLUTAMYL TRANSPEPTIDASE 36 U/L (5-85)
[2020-04-20] MEDS: Enoxaparin 40mg Inj SUBQ SCH (09:00)
[2020-04-20] MEDS: Miralax 17gm pkt ORAL SCH (09:00)
[2020-04-20] MEDS: Docusate 100mg cap ORAL SCH ×2 (09:17→19:07)
--- NOTE | 2020-04-20 10:24 | Pulmonology Progress Note ---
Subjective ROS Limited/Unobtainable: Yes Interval Events: none new reported Constitutional: Reports: fatigue; Denies: fever HEENT: Repors: no symptoms; Denies: visual change, discharge Respiratory: Reports: no symptoms, dry cough - intermittent dry cough; Denies: shortness of breath, wheezing Cardiovascular: Reports: no symptoms Gastrointestinal/Abdominal: Denies: nausea, vomiting, diarrhea Psychiatric: Denies: depression Skin: Denies: rash Musculoskeletal: Denies: pain Allergies: Coded Allergies: No Known Allergies (Unverified , 04/11/20) Objective Last 24 Hour Vital Signs Date Time Temp Pulse Resp B/P (MAP) Pulse Ox O2 Delivery O2 Flow Rate FiO2 04/20/20 06:00 101 100/40 04/20/20 04:00 97.7 101 20 100/40 (60) 93 04/20/20 00:00 97.3 107 24 100/55 (70) 96 04/20/20 00:00 107 100/55 04/19/20 21:00 Nasal Cannula 2.0 04/19/20 20:08 95 Nasal Cannula 2.0 28 04/19/20 20:00 97.5 101 16 91/56 (68) 95 04/19/20 17:06 111 114/72 04/19/20 16:13 100.0 04/19/20 16:00 100.0 111 19 114/72 (86) 97 04/19/20 15:48 102.2 04/19/20 15:40 102.2 111 19 114/72 (86) 97 04/19/20 12:31 102 112/71 04/19/20 12:00 98.6 102 19 112/71 (85) 97 Intake and Output 04/19/20 04/20/20 19:00 07:00 Intake Total 1995 ml Output Total 1400 ml 1000 ml Balance 595 ml -1000 ml Intake Oral 720 ml IV Total 1275 ml Output Urine Total 1400 ml 1000 ml Objective 04/20/1010 pt saturating well on 2 lpm NC; NAD 04/19/2020 pt saturating well on 2 lpm NC; NAD 04/18/2020 pt saturating well on 2 lpm NC General Appearance: WD/WN, no acute distress HEENT: normocephalic, atraumatic Respiratory: lungs clear Cardiovascular: normal rate, regular rhythm Abdomen: soft, non tender Genitourinary: other - Morales Extremities: no edema Microbiology Date/Time Source Procedure Growth Status 04/18/20 13:05 Blood Blood Culture - Preliminary NO GROWTH AFTER 24 HOURS Resulted 04/18/20 13:05 Blood Blood Culture - Preliminary NO GROWTH AFTER 24 HOURS Resulted Laboratory Tests 04/19/20 23:00: Vancomycin Level Trough 17.4H 04/20/20 04:00: White Blood Count 2.2L, Red Blood Count 3.03L, Hemoglobin 8.0L, Hematocrit 25.2L , Mean Corpuscular Volume 83, Mean Corpuscular Hemoglobin 26.5L, Mean Corpuscular Hemoglobin Concent 31.8L, Red Cell Distribution Width 18.0H, Platelet Count 347, Mean Platelet Volume 5.3L, Neutrophils (%) (Auto) , Lymphocytes (%) (Auto) , Monocytes (%) (Auto) , Eosinophils (%) (Auto) , Basophils (%) (Auto) , Neutrophils % (Manual) [Pending], Lymphocytes % (Manual) [Pending], Platelet Estimate [Pending], Platelet Morphology [Pending], Sodium Level 138, Potassium Level 4.2, Chloride Level 105, Carbon Dioxide Level 28, Anion Gap 5, Blood Urea Nitrogen 2L, Creatinine 0.4L, Estimat Glomerular Filtration Rate > 60, Glucose Level 81, Calcium Level 8.0L, Phosphorus Level 3.4, Magnesium Level 2.7H, Total Bilirubin 0.4, Direct Bilirubin 0.2, Gamma Glutamyl Transpeptidase 36, Aspartate Amino Transf (AST/SGOT) 17, Alanine Aminotransferase (ALT/SGPT) 13, Alkaline Phosphatase 121H, Total Protein 6.0L, Albumin 2.4L Current Medications Medications (Trade) Dose Ordered Sig/Angelika Route PRN Reason Start Time Stop Time Status Last Admin Dose Admin Acetaminophen (Tylenol) 650 mg Q6H PRN ORAL Mild Pain (Pain Scale 1-3) 04/12/20 02:45 05/12/20 02:44 04/18/20 18:00 Acetaminophen (Tylenol) 650 mg Q6H PRN ORAL FEVER 04/12/20 16:30 05/12/20 16:29 04/19/20 15:43 Allopurinol (allopurinoL) 300 mg DAILY ORAL 04/12/20 09:00 05/12/20 08:59 04/20/20 09:18 Baclofen (Lioresal) 10 mg THREE TIMES A DAY ORAL 04/12/20 09:00 05/12/20 08:59 04/19/20 09:44 Barium Sulfate (Readi-Cat 2) 450 ml NOW PRN ORAL Radiology Procedure 04/19/20 12:00 04/21/20 11:59 Chlorhexidine Gluconate (Christy-Hex 2%) 1 applic DAILY@2000 TOPIC 04/12/20 20:00 07/11/20 19:59 04/19/20 20:55 Dextrose/ Electrolytes 1,000 ml @ 50 mls/hr Q20H IV 04/14/20 12:00 05/14/20 11:59 04/19/20 12:32 Diltiazem HCl (Cardizem Tab) 30 mg QID@0000,0600,1200,1800 ORAL 04/12/20 06:00 05/12/20 05:59 04/19/20 12:31 Docusate Sodium (Colace) 100 mg TWICE A DAY ORAL 04/20/20 09:00 05/20/20 08:59 04/20/20 09:17 Enoxaparin Sodium (Lovenox) 40 mg DAILY SUBQ 04/18/20 10:00 07/17/20 09:59 Iohexol (OMNIPAQUE-300 100ml) 100 ml ONCE PRN INJ RADIOLOGY 04/19/20 12:00 04/21/20 11:59 Iohexol (Omnipaque 350 100ml) 100 ml NOW PRN INJ Radiology Procedure 04/19/20 12:00 04/21/20 11:59 Iron Sucrose 100 mg/Sodium Chloride 60 ml @ 240 mls/hr BEDTIME IVPB 04/18/20 21:00 04/22/20 21:14 04/19/20 20:54 Morphine Sulfate (Morphine Sulfate) 1 mg Q3H PRN IVP Moderate Pain (Pain Scale 4-6) 04/19/20 06:15 04/26/20 06:14 Morphine Sulfate (Morphine Sulfate) 2 mg Q3H PRN IVP Severe Pain (Pain Scale 7-10) 04/19/20 06:15 04/26/20 06:14 04/20/20 09:22 Ondansetron HCl (Zofran) 4 mg Q6H PRN IVP Nausea & Vomiting 04/19/20 13:30 05/19/20 13:29 Polyethylene Glycol (Miralax) 17 gm DAILY ORAL 04/20/20 09:00 05/20/20 08:59 Vancomycin HCl (Vanco pharmacy to dose) 1 ea DAILY PRN MISC Per rx protocol 04/12/20 04:15 05/12/20 04:14 Vancomycin HCl 1 gm/Dextrose 275 ml @ 183.708 mls/hr Q12HR@1100,2300 IVPB 04/17/20 23:00 04/22/20 22:59 04/20/20 00:14 Assessment/Plan Assessment/Plan 1. COVID-19 positivity. - no indication for steroids or remdesivir given her normoxemia at this time - Antibiotics per ID - s/p cefepime - CXR with diffuse non-specific inflammatory/infectious process - cont supplemental oxygen as needed 2. Immunocompromised state with history of non-Hodgkin lymphoma. 3. Fever. 4. Hypertension. 5. Gout. DVT ppx - on SCD; pt declined lovenox We will follow. The care for this patient was discussed with my supervising physician Time spent for this case was approximately 31 minutes The patient was seen and examined at bedside and all new and available data was reviewed in the patients chart. I agree with the above findings, impression, a nd plan. (Patient was seen earlier today. Signature timestamp does not reflect patient encounter time) Joaquín Fernandez MD Apr 20, 2020 10:24 Ricky Jordan MD Apr 20, 2020 17:31
--- NOTE | 2020-04-20 10:47 | Nephrology Progress Note ---
Assessment/Plan Plan #hypokalemia- #hypomagnesemia #Acute on chronic anemia #h/p non- hodgkins lymphoma #possible sepsis #+ COVID - Pulmonary eval - prbc transfusion prn - replete lytes - hemo-onc eval - ID eval - continue with IV abx - monitor CBC - avoid nephrotoxins times spent 65 min Subjective ROS Limited/Unobtainable: No Constitutional: Reports: weakness HEENT: Denies: no symptoms, eye pain, blurred vision, tearing, double vision, ear pain, ear discharge, nose pain, nose congestion, throat pain, throat swelling, mouth pain, mouth swelling, other Genitourinary: Denies: no symptoms, burning, discharge, frequency, flank pain, hematuria, incontinence, pain, urgency, other Neurologic/Psychiatric: Denies: no symptoms, anxiety, depressed, emotional problems, headache, numbness, paresthesia, pre-existing deficit, seizure, tingling, tremors, weakness, other Subjective + COVID ID and pulm consulted continues to spike fever hip fracture noted ortho consulted Impression: Minimal distention of the rectum with feces, could represent mild rectal fecal impaction. Equivocal slight thickening of the rectal wall and stranding of the perirectal fat, if real could indicate mild stercoral proctitis Comminuted fracture of the left femoral head, neck, and intertrochanteric region, ununited. Possibly acute, but abundant soft tissues surrounding the fracture area raises possibility that this could be chronic. Correlate with clinical findings Other findings as noted, including evidence of old T12 vertebral body compression fracture and prior vertebral augmentation procedure, Morales catheter, subcentimeter low-attenuation lesions which probably represent renal cysts, small sliding-type hiatal hernia Objective Objective Last 24 Hour Vital Signs Date Time Temp Pulse Resp B/P (MAP) Pulse Ox O2 Delivery O2 Flow Rate FiO2 04/20/20 06:00 101 100/40 04/20/20 04:00 97.7 101 20 100/40 (60) 93 04/20/20 00:00 97.3 107 24 100/55 (70) 96 04/20/20 00:00 107 100/55 04/19/20 21:00 Nasal Cannula 2.0 04/19/20 20:08 95 Nasal Cannula 2.0 28 04/19/20 20:00 97.5 101 16 91/56 (68) 95 04/19/20 17:06 111 114/72 04/19/20 16:13 100.0 04/19/20 16:00 100.0 111 19 114/72 (86) 97 04/19/20 15:48 102.2 04/19/20 15:40 102.2 111 19 114/72 (86) 97 04/19/20 12:31 102 112/71 04/19/20 12:00 98.6 102 19 112/71 (85) 97 Intake and Output 04/19/20 04/20/20 19:00 07:00 Intake Total 1995 ml Output Total 1400 ml 1000 ml Balance 595 ml -1000 ml Intake Oral 720 ml IV Total 1275 ml Output Urine Total 1400 ml 1000 ml Laboratory Tests 04/19/20 23:00: Vancomycin Level Trough 17.4H 04/20/20 04:00: White Blood Count 2.2L, Red Blood Count 3.03L, Hemoglobin 8.0L, Hematocrit 25.2L , Mean Corpuscular Volume 83, Mean Corpuscular Hemoglobin 26.5L, Mean Corpuscular Hemoglobin Concent 31.8L, Red Cell Distribution Width 18.0H, Platelet Count 347, Mean Platelet Volume 5.3L, Neutrophils (%) (Auto) , Lym phocytes (%) (Auto) , Monocytes (%) (Auto) , Eosinophils (%) (Auto) , Basophils (%) (Auto) , Neutrophils % (Manual) [Pending], Lymphocytes % (Manual) [Pending], Platelet Estimate [Pending], Platelet Morphology [Pending], Sodium Level 138, Potassium Level 4.2, Chloride Level 105, Carbon Dioxide Level 28, Anion Gap 5, Blood Urea Nitrogen 2L, Creatinine 0.4L, Estimat Glomerular Filtration Rate > 60, Glucose Level 81, Calcium Level 8.0L, Phosphorus Level 3.4, Magnesium Level 2.7H, Total Bilirubin 0.4, Direct Bilirubin 0.2, Gamma Glutamyl Transpeptidase 3 6, Aspartate Amino Transf (AST/SGOT) 17, Alanine Aminotransferase (ALT/SGPT) 13, Alkaline Phosphatase 121H, Total Protein 6.0L, Albumin 2.4L Height (Feet): 5 Height (Inches): 7.00 Weight (Pounds): 150 Kallie Dykes M.D. Apr 20, 2020 10:47
--- NOTE | 2020-04-20 11:35 | NUR ---
PT NOTE Patient with comminuted fracture L hip. Spoke with Dr. Brunner, will DC patient from PT intervention at this time.
[2020-04-20 12:00] VITALS: BP 109/76
[2020-04-20] MEDS ORDERED: Omnipaque-300 100ml vial INJ PRN ×3 (12:07→12:08)
[2020-04-20] MEDS ORDERED: Fleet's Mineral Oil Enema RECTAL SCH (13:00)
[2020-04-20] MEDS ORDERED: LORazepam Inj 2mg/ml 1ml IV PRN (13:30)
--- NOTE | 2020-04-20 13:40 | General Progress Note ---
Subjective ROS Limited/Unobtainable: Yes Allergies: Coded Allergies: No Known Allergies (Unverified , 04/11/20) Objective Last 24 Hour Vital Signs Date Time Temp Pulse Resp B/P (MAP) Pulse Ox O2 Delivery O2 Flow Rate FiO2 04/20/20 09:45 96 Nasal Cannula 2.0 28 04/20/20 06:00 101 100/40 04/20/20 04:00 97.7 101 20 100/40 (60) 93 04/20/20 00:00 97.3 107 24 100/55 (70) 96 04/20/20 00:00 107 100/55 04/19/20 21:00 Nasal Cannula 2.0 04/19/20 20:08 95 Nasal Cannula 2.0 28 04/19/20 20:00 97.5 101 16 91/56 (68) 95 04/19/20 17:06 111 114/72 04/19/20 16:13 100.0 04/19/20 16:00 100.0 111 19 114/72 (86) 97 04/19/20 15:48 102.2 04/19/20 15:40 102.2 111 19 114/72 (86) 97 Intake and Output 04/19/20 04/20/20 19:00 07:00 Intake Total 1995 ml Output Total 1400 ml 1000 ml Balance 595 ml -1000 ml Intake Oral 720 ml IV Total 1275 ml Output Urine Total 1400 ml 1000 ml Laboratory Tests 04/19/20 23:00: Vancomycin Level Trough 17.4H 04/20/20 04:00: White Blood Count 2.2L, Red Blood Count 3.03L, Hemoglobin 8.0L, Hematocrit 25.2L , Mean Corpuscular Volume 83, Mean Corpuscular Hemoglobin 26.5L, Mean Corpuscular Hemoglobin Concent 31.8L, Red Cell Distribution Width 18.0H, Platelet Count 347, Mean Platelet Volume 5.3L, Neutrophils (%) (Auto) , Lym phocytes (%) (Auto) , Monocytes (%) (Auto) , Eosinophils (%) (Auto) , Basophils (%) (Auto) , Differential Total Cells Counted 100, Neutrophils % (Manual) 55, Lymphocytes % (Manual) 34, Monocytes % (Manual) 4, Eosinophils % (Manual) 2, Basophils % (Manual) 0, Band Neutrophils 5, Platelet Estimate Adequate, Platelet Morphology Normal, Hypochromasia 1+, Anisocytosis 2+, Sodium Level 138, Potassium Level 4.2, Chloride Level 105, Carbon Dioxide Level 28, Anion Gap 5, Blood Urea Nitrogen 2L, Creatinine 0.4L, Estimat Glomerular Filtration Rate > 60, Glucose Level 81, Calcium Level 8.0L, Phosphorus Level 3.4, Magnesium Level 2.7H, Total Bilirubin 0.4, Direct Bilirubin 0.2, Gamma Glutamyl Transpeptidase 36, Aspartate Amino Transf (AST/SGOT) 17, Alanine Aminotransferase (ALT/SGPT) 13, Alkaline Phosphatase 121H, Total Protein 6.0L, Albumin 2.4L Height (Feet): 5 Height (Inches): 7.00 Weight (Pounds): 150 General Appearance: no apparent distress EENT: normal ENT inspection Neck: supple Cardiovascular: normal rate Respiratory/Chest: decreased breath sounds Abdomen: normal bowel sounds, non tender, soft Extremities: non-tender Assessment/Plan Status: stable Assessment/Plan: iron def anemia mild elevated CEA lymphoma on chemo covid positive neg stool ob iv iron fu H&H needs out patient fu for colonoscopy fu oncology CT reviewed enema dulcolax sup colace mirPatrick Watt MD Apr 20, 2020 13:40
[2020-04-20] MEDS ORDERED: Gadavist 7.5mMol/7.5ml vial IV PRN ×3 (13:45)
--- NOTE | 2020-04-20 13:50 | Infectious Diseases Prog Note ---
Assessment/Plan Assessment/Plan A) 1) covid-19 virus infection with fevers, saturations stable, CT A/P/C - no obvious pna or abscess, on O2 now - sat 93 % earlier today 2) hx lymphoma and chemo, history of port line infection and finishing vancomycin treatment course - end date per patient 3) hx anemia 4) allergies - nkda, fh-nc, sh-negative 5) d/w RN 6) notes and records noted P) 1) consider dexamethasone, will d/w with primary and pulmonary 2) finish vancomycin for previous port-line infection - 04/25/20 end date per patient 3) monitor labs, monitor for hypoxia, monitor feves 4) will f/u 5) d/w patient Subjective Constitutional: Reports: fatigue HEENT: Denies: congestion Respiratory: Denies: shortness of breath Cardiovascular: Denies: chest pain Gastrointestinal/Abdominal: Denies: nausea, vomiting, diarrhea Allergies: Coded Allergies: No Known Allergies (Unverified , 04/11/20) Objective Last 24 Hour Vital Signs Date Time Temp Pulse Resp B/P (MAP) Pulse Ox O2 Delivery O2 Flow Rate FiO2 04/20/20 12:00 98.9 89 18 109/76 (87) 95 04/20/20 09:45 96 Nasal Cannula 2.0 28 04/20/20 08:00 99.6 110 19 102/71 (81) 95 04/20/20 06:00 101 100/40 04/20/20 04:00 97.7 101 20 100/40 (60) 93 04/20/20 00:00 97.3 107 24 100/55 (70) 96 04/20/20 00:00 107 100/55 04/19/20 21:00 Nasal Cannula 2.0 04/19/20 20:08 95 Nasal Cannula 2.0 28 04/19/20 20:00 97.5 101 16 91/56 (68) 95 04/19/20 17:06 111 114/72 04/19/20 16:13 100.0 04/19/20 16:00 100.0 111 19 114/72 (86) 97 04/19/20 15:48 102.2 04/19/20 15:40 102.2 111 19 114/72 (86) 97 Height (Feet): 5 Height (Inches): 7.00 Weight (Pounds): 150 General Appearance: no acute distress HEENT: normocephalic, atraumatic, anicteric Respiratory/Chest: lungs clear, normal breath sounds, no respiratory distress Cardiovascular: normal rate, regular rhythm Chest x-ray - 04/13/20 - Findings: The cardiomediastinal silhouette is within normal limits. There is diffuse interstitial prominence. No airspace consolidation. No pneumothorax or pleural effusion. No acute osseous abnormality. Right approach PICC terminates in the expected location of mid SVC IMPRESSION: Diffuse interstitial prominence, which is nonspecific but may be related to peribronchial thickening in the setting of infectious/inflammatory airways disease or interstitial edema. CT angio chest: Impression: No evidence of acute pulmonary embolus or other acute thoracic vascular pathology. Areas of consolidation and volume loss with associated bronchiectasis most likely represent areas of scarring and atelectasis. Note definite acute infiltrates. Other findings as noted, including evidence of prior upper thoracic spine surgery, T12 compression fracture deformity and evidence of prior vertebral augmentation procedure, sliding-type hiatal hernia, PICC CT abdomen and pelvis: Impression: Minimal distention of the rectum with feces, could represent mild rectal fecal impaction. Equivocal slight thickening of the rectal wall and stranding of the perirectal fat, if real could indicate mild stercoral proctitis Comminuted fracture of the left femoral head, neck, and intertrochanteric region, ununited. Possibly acute, but abundant soft tissues surrounding the fracture area raises possibility that this could be chronic. Correlate with clinical findings Other findings as noted, including evidence of old T12 vertebral body compression fracture and prior vertebral augmentation procedure, Morales catheter, subcen timeter low-attenuation lesions which probably represent renal cysts, small sliding-type hiatal hernia Microbiology Date/Time Source Procedure Growth Status 04/18/20 13:05 Blood Blood Culture - Preliminary NO GROWTH AFTER 24 HOURS Resulted 04/18/20 13:05 Blood Blood Culture - Preliminary NO GROWTH AFTER 24 HOURS Resulted Laboratory Tests Test 04/19/20 23:00 04/20/20 04:00 Vancomycin Level Trough 17.4 ug/mL (5.0-12.0) H White Blood Count 2.2 K/UL (4.8-10.8) L Red Blood Count 3.03 M/UL (4.20-5.40) L Hemoglobin 8.0 G/DL (12.0-16.0) L Hematocrit 25.2 % (37.0-47.0) L Mean Corpuscular Volume 83 FL (80-99) Mean Corpuscular Hemoglobin 26.5 PG (27.0-31.0) L Mean Corpuscular Hemoglobin Concent 31.8 G/DL (32.0-36.0) L Red Cell Distribution Width 18.0 % (11.6-14.8) H Platelet Count 347 K/UL (150-450) Mean Platelet Volume 5.3 FL (6.5-10.1) L Neutrophils (%) (Auto) % (45.0-75.0) Lymphocytes (%) (Auto) % (20.0-45.0) Monocytes (%) (Auto) % (1.0-10.0) Eosinophils (%) (Auto) % (0.0-3.0) Basophils (%) (Auto) % (0.0-2.0) Differential Total Cells Counted 100 Neutrophils % (Manual) 55 % (45-75) Lymphocytes % (Manual) 34 % (20-45) Monocytes % (Manual) 4 % (1-10) Eosinophils % (Manual) 2 % (0-3) Basophils % (Manual) 0 % (0-2) Band Neutrophils 5 % (0-8) Platelet Estimate Adequate Platelet Morphology Normal Hypochromasia 1+ Anisocytosis 2+ Sodium Level 138 MMOL/L (136-145) Potassium Level 4.2 MMOL/L (3.5-5.1) Chloride Level 105 MMOL/L (98-107) Carbon Dioxide Level 28 MMOL/L (21-32) Anion Gap 5 mmol/L (5-15) Blood Urea Nitrogen 2 mg/dL (7-18) L Creatinine 0.4 MG/DL (0.55-1.30) L Estimat Glomerular Filtration Rate > 60 mL/min (>60) Glucose Level 81 MG/DL (74-106) Calcium Level 8.0 MG/DL (8.5-10.1) L Phosphorus Level 3.4 MG/DL (2.5-4.9) Magnesium Level 2.7 MG/DL (1.8-2.4) H Total Bilirubin 0.4 MG/DL (0.2-1.0) Direct Bilirubin 0.2 MG/DL (0.0-0.3) Gamma Glutamyl Transpeptidase 36 U/L (5-85) Aspartate Amino Transf (AST/SGOT) 17 U/L (15-37) Alanine Aminotransferase (ALT/SGPT) 13 U/L (12-78) Alkaline Phosphatase 121 U/L (46-116) H Total Protein 6.0 G/DL (6.4-8.2) L Albumin 2.4 G/DL (3.4-5.0) L Current Medications Medications (Trade) Dose Ordered Sig/Angelika Route PRN Reason Start Time Stop Time Status Last Admin Dose Admin Acetaminophen (Tylenol) 650 mg Q6H PRN ORAL Mild Pain (Pain Scale 1-3) 04/12/20 02:45 05/12/20 02:44 04/18/20 18:00 Acetaminophen (Tylenol) 650 mg Q6H PRN ORAL FEVER 04/12/20 16:30 05/12/20 16:29 04/19/20 15:43 Allopurinol (allopurinoL) 300 mg DAILY ORAL 04/12/20 09:00 05/12/20 08:59 04/20/20 09:18 Baclofen (Lioresal) 10 mg THREE TIMES A DAY ORAL 04/12/20 09:00 05/12/20 08:59 04/19/20 09:44 Barium Sulfate (Readi-Cat 2) 450 ml NOW PRN ORAL Radiology Procedure 04/19/20 12:00 04/21/20 11:59 Bisacodyl (Dulcolax) 10 mg ONCE RECTAL 04/20/20 13:45 04/20/20 15:45 Chlorhexidine Gluconate (Christy-Hex 2%) 1 applic DAILY@2000 TOPIC 04/12/20 20:00 07/11/20 19:59 04/19/20 20:55 Dextrose/ Electrolytes 1,000 ml @ 50 mls/hr Q20H IV 04/14/20 12:00 05/14/20 11:59 04/19/20 12:32 Docusate Sodium (Colace) 100 mg TWICE A DAY ORAL 04/20/20 09:00 05/20/20 08:59 04/20/20 09:17 Enoxaparin Sodium (Lovenox) 40 mg DAILY SUBQ 04/18/20 10:00 07/17/20 09:59 Gadobutrol (Gadavist) 7.5 mmol NOW PRN IV Radiology Procedure 04/20/20 13:45 04/24/20 13:44 UNV Gadobutrol (Gadavist) 7.5 mmol NOW PRN IV Radiology Procedure 04/20/20 13:45 04/24/20 13:44 UNV Gadobutrol (Gadavist) 7.5 mmol NOW PRN IV Radiology Procedure 04/20/20 13:45 04/24/20 13:44 UNV Iohexol (OMNIPAQUE-300 100ml) 100 ml ONCE PRN INJ RADIOLOGY 04/19/20 12:00 04/21/20 11:59 Iohexol (Omnipaque 350 100ml) 100 ml NOW PRN INJ Radiology Procedure 04/19/20 12:00 04/21/20 11:59 Iron Sucrose 100 mg/Sodium Chloride 60 ml @ 240 mls/hr BEDTIME IVPB 04/18/20 21:00 04/22/20 21:14 04/19/20 20:54 Lorazepam (Ativan 2mg/ml 1ml) 0.5 mg DAILYPRN PRN IV x1dose for anxiety in MRI 04/20/20 13:30 04/27/20 13:29 Mineral Oil (Fleet's Mineral Oil Enema) 133 ml ONCE RECTAL 04/20/20 13:00 04/20/20 15:00 Morphine Sulfate (Morphine Sulfate) 1 mg Q3H PRN IVP Moderate Pain (Pain Scale 4-6) 04/19/20 06:15 04/26/20 06:14 Morphine Sulfate (Morphine Sulfate) 2 mg Q3H PRN IVP Severe Pain (Pain Scale 7-10) 04/19/20 06:15 04/26/20 06:14 04/20/20 09:22 Ondansetron HCl (Zofran) 4 mg Q6H PRN IVP Nausea & Vomiting 04/19/20 13:30 05/19/20 13:29 Polyethylene Glycol (Miralax) 17 gm DAILY ORAL 04/20/20 09:00 05/20/20 08:59 Vancomycin HCl (Vanco pharmacy to dose) 1 ea DAILY PRN MISC Per rx protocol 04/12/20 04:15 05/12/20 04:14 Vancomycin HCl 1 gm/Dextrose 275 ml @ 183.708 mls/hr Q12HR@1100,2300 IVPB 04/17/20 23:00 04/22/20 22:59 04/20/20 12:17 Marko Rivera MD Apr 20, 2020 13:50
--- NOTE | 2020-04-20 14:00 | NUR ---
CASE MANAGEMENT:REVIEW SI;COVID PNEUMONIA 99.6 110 20 100/40 95% 2L NC H/H 8.0/25.2 MAG 2.7 ALP 121 ALB 2.4 IS;MORPHINE SULFATE IV Q3 PRN VENOFER IV HS LOVENOX SQ QD ALLOPURINOL PO QD VANCOMYCIN IV Q12 IVF C5W @ 50 ML/HR MED SURG STATUS DCP;FROM [facility]
[2020-04-20 16:00] VITALS: BP 99/68
--- NOTE | 2020-04-20 16:12 | Cardiac Electrophysiology PN ---
Subjective Subjective [id number] Objective Last 24 Hour Vital Signs Date Time Temp Pulse Resp B/P (MAP) Pulse Ox O2 Delivery O2 Flow Rate FiO2 04/20/20 12:00 98.9 89 18 109/76 (87) 95 04/20/20 09:45 96 Nasal Cannula 2.0 28 04/20/20 09:00 Nasal Cannula 1.0 04/20/20 08:00 99.6 110 19 102/71 (81) 95 04/20/20 06:00 101 100/40 04/20/20 04:00 97.7 101 20 100/40 (60) 93 04/20/20 00:00 97.3 107 24 100/55 (70) 96 04/20/20 00:00 107 100/55 04/19/20 21:00 Nasal Cannula 2.0 04/19/20 20:08 95 Nasal Cannula 2.0 28 04/19/20 20:00 97.5 101 16 91/56 (68) 95 04/19/20 17:06 111 114/72 04/19/20 16:13 100.0 Intake and Output 04/19/20 04/20/20 19:00 07:00 Intake Total 1995 ml Output Total 1400 ml 1000 ml Balance 595 ml -1000 ml Intake Oral 720 ml IV Total 1275 ml Output Urine Total 1400 ml 1000 ml Laboratory Tests Test 04/19/20 23:00 04/20/20 04:00 Vancomycin Level Trough 17.4 ug/mL (5.0-12.0) H White Blood Count 2.2 K/UL (4.8-10.8) L Red Blood Count 3.03 M/UL (4.20-5.40) L Hemoglobin 8.0 G/DL (12.0-16.0) L Hematocrit 25.2 % (37.0-47.0) L Mean Corpuscular Volume 83 FL (80-99) Mean Corpuscular Hemoglobin 26.5 PG (27.0-31.0) L Mean Corpuscular Hemoglobin Concent 31.8 G/DL (32.0-36.0) L Red Cell Distribution Width 18.0 % (11.6-14.8) H Platelet Count 347 K/UL (150-450) Mean Platelet Volume 5.3 FL (6.5-10.1) L Neutrophils (%) (Auto) % (45.0-75.0) Lymphocytes (%) (Auto) % (20.0-45.0) Monocytes (%) (Auto) % (1.0-10.0) Eosinophils (%) (Auto) % (0.0-3.0) Basophils (%) (Auto) % (0.0-2.0) Differential Total Cells Counted 100 Neutrophils % (Manual) 55 % (45-75) Lymphocytes % (Manual) 34 % (20-45) Monocytes % (Manual) 4 % (1-10) Eosinophils % (Manual) 2 % (0-3) Basophils % (Manual) 0 % (0-2) Band Neutrophils 5 % (0-8) Platelet Estimate Adequate Platelet Morphology Normal Hypochromasia 1+ Anisocytosis 2+ Sodium Level 138 MMOL/L (136-145) Potassium Level 4.2 MMOL/L (3.5-5.1) Chloride Level 105 MMOL/L (98-107) Carbon Dioxide Level 28 MMOL/L (21-32) Anion Gap 5 mmol/L (5-15) Blood Urea Nitrogen 2 mg/dL (7-18) L Creatinine 0.4 MG/DL (0.55-1.30) L Estimat Glomerular Filtration Rate > 60 mL/min (>60) Glucose Level 81 MG/DL (74-106) Calcium Level 8.0 MG/DL (8.5-10.1) L Phosphorus Level 3.4 MG/DL (2.5-4.9) Magnesium Level 2.7 MG/DL (1.8-2.4) H Total Bilirubin 0.4 MG/DL (0.2-1.0) Direct Bilirubin 0.2 MG/DL (0.0-0.3) Gamma Glutamyl Transpeptidase 36 U/L (5-85) Aspartate Amino Transf (AST/SGOT) 17 U/L (15-37) Alanine Aminotransferase (ALT/SGPT) 13 U/L (12-78) Alkaline Phosphatase 121 U/L (46-116) H C-Reactive Protein, Quantitative 2.0 mg/dL (0.00-0.90) H Total Protein 6.0 G/DL (6.4-8.2) L Albumin 2.4 G/DL (3.4-5.0) L Microbiology Date/Time Source Procedure Growth Status 04/18/20 13:05 Blood Blood Culture - Preliminary NO GROWTH AFTER 48 HOURS Resulted 04/18/20 13:05 Blood Blood Culture - Preliminary NO GROWTH AFTER 48 HOURS Resulted Ehsan Wan MD Apr 20, 2020 16:12
--- NOTE | 2020-04-20 17:17 | Diagnostic Imaging Report ---
Indication: Low back pain Technique: Sagittal T1, sagittal T2 PROPELLER, sagittal STIR PROPELLER, axial T2 FRFSE, axial T2 PROPELLER disc cuts, axial T1, pre and postcontrast sagittal and axial fat saturated T1-weighted images Comparison: none Findings: There is some imaging radiation due to motion artifact. On the posterolateral right side of the L3 vertebral body and extending slightly into the pedicle, there is an area of signal abnormality which demonstrates reticulated low signal on the T1 weighted images, is not particularly striking on the sagittal T2 images but demonstrates considerable high signal on the axial T2-weighted images, strikingly high signal on the STIR images and demonstrates enhancement on the postcontrast images. The area of enhancement measures approximately 16 x 16 mm. The abnormality appears to be confined to the vertebral body. There is no evidence of abnormality in the epidural space or in the paraspinous soft tissues. In retrospect, review of prior CT scan demonstrates a reticulated area of sclerosis in this region There is evidence of prior T12 compression fracture and vertebral augmentation procedure. Bone marrow signal within T12 is normal. The vertebral body heights are preserved. No other unusual contrast enhancement is evident. No other marrow signal abnormality is evident. The bony alignment is normal. At L2-3, facet arthrosis results in mild neural foraminal narrowing on the left. Short pedicles result in the borderline narrowing of the spinal canal at this level. At L3-4, facet arthrosis results in [id number] narrowing of the bilateral neural foramina. There is mild broad-based posterior central disc protrusion with a high intensity zone. This in combination with short pedicles and facet and ligamentum flavum hypertrophy results in mild to moderate narrowing of the spinal canal at this level. At L4-5, there is broad-based central posterior disc protrusion which results in borderline narrowing of the spinal canal. There is mild narrowing of the left neural foramen due to facet arthrosis. At L5-S1, there is broad-based posterior disc protrusion resulting in borderline narrowing of the spinal canal, exacerbated by short pedicles and ligament flavum hypertrophy. Facet and ligamentum flavum hypertrophy result in mild narrowing of bilateral neural foramina. The included extraspinal soft tissues are unremarkable. Impression: Unusual signal abnormality of the posterolateral aspect of the L3 vertebral body on the right. This appears to be confined to the vertebral body marrow space. Prior CT scan in retrospect demonstrates sclerotic areas in the same location. Most likely differential consideration is an atypical hemangioma. Other possibilities include acute on chronic bone infarct, less likely neoplasm or infection No other unusual contrast enhancement. No findings to suggest discitis or epidural abscess. Degenerative changes as detailed on a level by level basis above
--- NOTE | 2020-04-20 18:15 | Consultation ---
DATE OF CONSULTATION: 04/20/2020 CARDIOLOGY CONSULTATION REFERRING PHYSICIAN: Kallie Dykes M.D. REASON FOR CONSULTATION: Tachycardia and shortness of breath. The patient was counseled on the risks. HISTORY OF PRESENT ILLNESS: The patient is a 55-year-old female with history of non-Hodgkin lymphoma, history of port infection and sepsis that was removed, now presents to [facility] for fever, anemia, and COVID test that was positive. The patient was also noted to be tachycardic and cardiology consultation was obtained today for further evaluation. REVIEW OF SYSTEMS: Negative other than what is mentioned in history of present illness. PAST MEDICAL HISTORY: As mentioned above. FAMILY HISTORY: Noncontributory. ALLERGIES: She has no known drug allergies. SOCIAL HISTORY: No smoking or drug or alcohol use. PHYSICAL EXAMINATION: VITAL SIGNS: Blood pressure of 109/76, pulse is 110, respirations 18, temperature 99.6. HEAD AND NECK: No JVD. LUNGS: Coarse rhonchi. CARDIOVASCULAR: Regular S1 and S2 with no gallop or murmur. ABDOMEN: Soft. EXTREMITIES: No pitting edema. LABORATORY AND DIAGNOSTIC DATA: Labs show white count of 2.2, hemoglobin of 8, hematocrit of 25, and platelet count of 347. Sodium is 138, potassium is 4.2, BUN of 2, creatinine of 0.4. ASSESSMENT AND PLAN: 1. Sinus tachycardia due to sepsis and COVID. We will watch the patient on telemetry. Check a thyroid function test. Cannot use beta-domenico as blood pressure is 100/70. 2. COVID pneumonia. 3. Hypokalemia. 4. Hypomagnesemia. 5. History of non-Hodgkin lymphoma. Echocardiogram is pending at the time of this dictation. Thank you very much for allowing me to participate in the care of this patient. Please do not hesitate to contact me for any questions regarding my evaluation. Ehsan Wan M.D. DR: MIKKI JOB#: [id number] CC:
--- NOTE | 2020-04-20 18:26 | General Progress Note ---
Subjective Allergies: Coded Allergies: No Known Allergies (Unverified , 04/11/20) Subjective Patient continues to spike fevers to 102. Feels tired but otherwise no symptoms aside from some chest tightness and back pain throughout spine. No symptoms. No cough, SOB. Has some chest tightness, intermittent, non-pleuritic and non- exertional. No other complaints. Review of systems: Constitutional: Denies: chills, diaphoresis, malaise, weakness, + Fevers HEENT: Denies: eye pain, blurred vision, tearing, double vision, ear pain, ear discharge, nose pain, nose congestion, throat pain, throat swelling, mouth pain, mouth swelling, Cardiovascular: Denies: chest pain, edema, lightheadedness, palpitations, syncope, Respiratory: Denies: cough, orthopnea, shortness of breath, SOB with excertion, SOB at rest, Gastrointestinal/Abdominal: Denies: abdomen distended, abdominal pain, black stools, tarry stools, blood in stool, constipated, diarrhea, difficulty swallowing, nausea, poor appetite, poor fluid intake, rectal bleeding, vomiting, other Genitourinary: Denies: burning, discharge, frequency, flank pain, hematuria, incontinence, pain, urgency, other Neurologic/Psychiatric: Denies: anxiety, depressed, emotional problems, headache, numbness, paresthesia, pre-existing deficit, seizure, tingling, tremors, weakness, other Endocrine: Denies: excessive sweating, flushing, intolerance to cold, intolerance to heat, increased hunger, increased thirst MSK: denies joint pains, swelling, stiffness Hematologic/Lymphatic: Denies: anemia, easy bleeding, easy bruising, Objective Last 24 Hour Vital Signs Date Time Temp Pulse Resp B/P (MAP) Pulse Ox O2 Delivery O2 Flow Rate FiO2 04/20/20 16:00 99.2 106 20 99/68 (78) 96 04/20/20 12:00 98.9 89 18 109/76 (87) 95 04/20/20 09:45 96 Nasal Cannula 2.0 28 04/20/20 09:00 Nasal Cannula 1.0 04/20/20 08:00 99.6 110 19 102/71 (81) 95 04/20/20 06:00 101 100/40 04/20/20 04:00 97.7 101 20 100/40 (60) 93 04/20/20 00:00 97.3 107 24 100/55 (70) 96 04/20/20 00:00 107 100/55 04/19/20 21:00 Nasal Cannula 2.0 04/19/20 20:08 95 Nasal Cannula 2.0 28 04/19/20 20:00 97.5 101 16 91/56 (68) 95 Intake and Output 04/19/20 04/20/20 19:00 07:00 Intake Total 1995 ml Output Total 1400 ml 1000 ml Balance 595 ml -1000 ml Intake Oral 720 ml IV Total 1275 ml Output Urine Total 1400 ml 1000 ml Laboratory Tests 04/19/20 23:00: Vancomycin Level Trough 17.4H 04/20/20 04:00: White Blood Count 2.2L, Red Blood Count 3.03L, Hemoglobin 8.0L, Hematocrit 25.2L , Mean Corpuscular Volume 83, Mean Corpuscular Hemoglobin 26.5L, Mean Corpuscular Hemoglobin Concent 31.8L, Red Cell Distribution Width 18.0H, Platelet Count 347, Mean Platelet Volume 5.3L, Neutrophils (%) (Auto) , Lymphocytes (%) (Auto) , Monocytes (%) (Auto) , Eosinophils (%) (Auto) , Basophils (%) (Auto) , Differential Total Cells Counted 100, Neutrophils % (Manual) 55, Lymphocytes % (Manual) 34, Monocytes % (Manual) 4, Eosinophils % (Manual) 2, Basophils % (Manual) 0, Band Neutrophils 5, Platelet Estimate Adequate, Platelet Morphology Normal, Hypochromasia 1+, Anisocytosis 2+, Sodium Level 138, Potassium Level 4.2, Chloride Level 105, Carbon Dioxide Level 28, Anion Gap 5, Blood Urea Nitrogen 2L, Creatinine 0.4L, Estimat Glomerular Filtration Rate > 60, Glucose Level 81, Calcium Level 8.0L, Phosphorus Level 3.4, Magnesium Level 2.7H, Total Bilirubin 0.4, Direct Bilirubin 0.2, Gamma Glutamyl Transpeptidase 36, Aspartate Amino Transf (AST/SGOT) 17, Alanine Aminotransferase (ALT/SGPT) 13, Alkaline Phosphatase 121H, C-Reactive Protein, Quantitative 2.0H, Total Protein 6.0L, Albumin 2.4L Height (Feet): 5 Height (Inches): 7.00 Weight (Pounds): 150 Objective General: WDWN female in NAD, A&O x 4 HEENT: Normocephalic cephalic atraumatic, pupils equal round reactive to light and accommodation, nares patent and no symmetrical, no tonsillar exudates, mucous membranes moist CV: Regular rate regular rhythm, no murmurs, rubs, or gallops + POrt site is C/d/i. Pulm: Lungs clear to auscultation bilaterally. No wheezes, rhonchi, or rales GI: Soft, nontender, nondistended, bowel sounds present + eaton in place Neuro: CN 2-12 intact bilaterally, no focal signs. Moving all extremities Ext: No lower extremity edema bilaterally Skin: no rashes lesions or ulcers Msk: Joints symmetrical in upper extremity and lower extremity bilaterally, no joint swelling. + left hip pain (slightly) Lymph: No lymphadenopathy in upper extremity and lower extremity Assessment/Plan Status: stable Assessment/Plan: #Hx of Sepsis 2' port infection #Sepsis due to COVID 19 pneumonia (febrile, tachycardic) #COVID 19+ - CTM Fever curve. Could be due to underlying malignancy - Repeat Blood culture today 04/18 - Repeat UA: negative - Repeat CXR: Bronchial thickening - Check CT C/A/P including CT angio to eval for PE. : reviewed. No PE. Possible consolidation. incidental left hip fracture - IV fluids x 1 day - D/W ID. - Defer Covid19 tx to ID - Port has been removed at OSH - , - ngtd - Cefepime (04/14 - 04/15) - Per patient she is to continue on Vancomycin till 04/25 - ID Consult, appreciate recs - MRI C/T/L spine w/wo contrast to eval for abscess #left hip fracture, suspect chronic > Patient states she fell 5 months ago but no recent falls. Also had hard fall on coccyx in 2018. Minimal pain in left hip - appreciate ortho eval: Dr. Payan. Given patient bed bound and paraplegic unlikely to operate - pain management #Acute blood loss anemia - resolving #anemia of chronic disease #Normocytic anemia Patient presented with Hb 6.7 with normal MCV. History of lymphoma per patient and is receiving chemo tx, last known to be February 2020. - 2U PRBCs ordered and transfused on admission - Hb Stable - Rectic count wnl, Iron and Iron sat low, Ferritin wnl - No active signs of bleeding - Hematology consulted, appreciate recs - CTM for signs of bleeding - Patient will need colonoscopy as outpatient in the future : Gi Consulted; Dr. Carter #proctitis #constipatoin - Aggressive bowel regimen - GI aware: Appreciate recommendations #Hx of Lymphoma - All information per patient - Oncology following, appreciate recs - Can continue current therapy with outpatient onc - No acute interventions needed inpatient #Hypokalemia #hypomagnesia - Lytes replaced #Chronic Back pain - Resume Baclofen, norco, tramadol Full Code Regular Diet Dispo - Discharge back to SNF. 36 minutes spent on this encounter, and 20 minutes spent on counseling and care coordination. Discussed with ID, heme/onc, RN time of note does not reflect time of encounter. Jus Brunner D.O. Apr 20, 2020 18:26
--- NOTE | 2020-04-20 19:15 | NUR ---
NURSE NOTES: Patient received mineral fleet enema and dulcolax suppository today,but no BM .Patient medicated for complaint of generalize pain.IV fluids continue to infuse as ordered.Call light within reach,will endorse to follow up on on pain medication assessment.
--- NOTE | 2020-04-20 19:25 | NUR ---
NURSE HAND-OFF: Douglas LUCIA Important Events on Shift:[]Fleets Mineral enema given today,dulcolax suppository given today.Patient wants to sta rt Miralax in the AM. Patient Status: [] Diet: [ Regular] Pending Orders: [MRI only able to do part of MRI,will notify ] Pending Results/Labs:[] Pending MD notification:[] Latest Vital Signs: Temperature 99.2 , Pulse 106 , B/P 99 /68 , Respiratory Rate 20 , O2 SAT 96 , Nasal Cannula, O2 Flow Rate 2.0 . Vital Sign Comment: [] Latest [place] Fall Score: 35 Fall Risk: Medium Risk Safety Measures: Call light Within Reach, Bed Alarm Zone 1, Side Rails Side Rails x2, Bed position Low and Locked. Fall Precautions: bed alarm Door Sign y Patient Fall Education Report given to [].
--- NOTE | 2020-04-20 19:30 | NUR ---
NURSE NOTES: Pt. received from REA Feng. Pt. AAOx4, on 1L NC, breathing even and unlabored, no indications of respiratory distress, complaints of pain and will follow up with ordered pain interventions. PICC Right upper arm CDI with D5NS and 20KCl running. Bed low and locked, side rails x3 up, bed alarm active, and call light in reach.
[2020-04-20 20:00] VITALS: BP 119/74
--- NOTE | 2020-04-20 21:30 | Consultation ---
DATE OF CONSULTATION: 04/20/2020 ORTHOPEDIC CONSULTATION CONSULTING PHYSICIAN: Fuad Payan MD HISTORY OF PRESENT ILLNESS: Patient is a pleasant 55-year-old female who was diagnosed with non-Hodgkin's lymphoma, was admitted secondary for sepsis workup. Subsequently to the workup, she had a CT scan of her pelvis, which incidentally showed a left femoral intertrochanteric hip fracture. Patient is paraplegic. Orthopedic consultation was obtained for further care and recommendations. PAST MEDICAL HISTORY: Reviewed per intake chart. PAST SURGICAL HISTORY: Reviewed per intake chart. MEDICATIONS: Reviewed per intake chart. PHYSICAL EXAMINATION: GENERAL: Patient is resting comfortably on exam bed. VITAL SIGNS: Afebrile. Stable vital signs. EXTREMITIES: Left hip examination shows no pain with internal and external rotation. No significant deformity. CT scan of the pelvis shows what appears to be an intertrochanteric hip fracture. There was some remodeling around the fracture site consistent with possible old injury, possible nonunion. ASSESSMENT: Femoral intertrochanteric hip fracture. DISCUSSION: At this point, she is paraplegic. Based on the CT scan, it looks like this may be somewhat of a chronic fracture, not anything acute. She is not having any pain given that she is paraplegic and the hip joint is reduced. At this point, given the limited ambulation status, I do not think any surgery is warranted, particularly given the comorbidities, especially the COVID. At this point, risks of a surgical intervention outweigh the benefits. Ultimately, if she still has issues with the hip, then she may be a candidate for Girdlestone procedure. Fuad Payan M.D. DR: MARISELA JOB#: [id number] CC:
[2020-04-20] MEDS: Iron Sucrose 100 MG in NS 55 ML IVPB SCH (21:37)
[2020-04-20] MEDS: Dyna-Hex 2% Top Sol 2oz TOPIC SCH (21:37)
[2020-04-21] VITALS: BP 109/66
[2020-04-21 04:00] VITALS: BP 111/58
[2020-04-21] MEDS: Morphine Sulfate 2mg/ml Inj(IV/IM USE ONLY) IVP PRN ×4 (05:15→20:37)
[2020-04-21 06:18] LABS: HEMATOCRIT 24.7 % (37.0-47.0); MEAN CORPUSCULAR VOLUME 82 FL (80-99); PLATELET COUNT 377 K/UL (150-450); RED BLOOD COUNT 2.99 M/UL (4.20-5.40); RED CELL DISTRIBUTION WIDTH 18.1 % (11.6-14.8)
[2020-04-21 06:55] LABS: ALANINE AMINOTRANSFERASE 9 U/L (12-78); ALBUMIN 2.4 G/DL (3.4-5.0); ALBUMIN/GLOBULIN RATIO 0.7 (1.0-2.7); ALKALINE PHOSPHATASE 119 U/L (46-116); ANION GAP 7 mmol/L (5-15); ASPARTATE AMINO TRANSFERASE 16 U/L (15-37); BILIRUBIN,TOTAL 0.5 MG/DL (0.2-1.0); BLOOD UREA NITROGEN 3 mg/dL (7-18); CALCIUM 8.2 MG/DL (8.5-10.1); CARBON DIOXIDE 26 MMOL/L (21-32); CHLORIDE 105 MMOL/L (98-107); CREATININE 0.4 MG/DL (0.55-1.30); POTASSIUM 3.6 MMOL/L (3.5-5.1); SODIUM 138 MMOL/L (136-145)
--- NOTE | 2020-04-21 07:08 | NUR ---
NURSE HAND-OFF: Important Events on Shift:[]pain medication given as ordered Patient Status: stable Diet: regular Pending Orders: na Pending Results/Labs:na Pending MD notification:Dr. Dia notified WBC 2.0, awaiting orders Latest Vital Signs: Temperature 98.9 , Pulse 99 , B/P 111 /58 , Respiratory Rate 20 , O2 SAT 97 , Nasal Cannula, O2 Flow Rate 2.0 . Vital Sign Comment: stable Latest [place] Fall Score: 35 Fall Risk: Medium Risk Safety Measures: Call light Within Reach, Bed Alarm Zone 1, Side Rails Side Rails x2, Bed position Low and Locked. Fall Precautions: Door Sign Patient Fall Education Report given to . Addendum: 04/21/20 at 0712 by Douglas Bejarano RN HAND-OFF: Report given to REA Feng.
[2020-04-21 08:00] VITALS: BP 105/67
--- NOTE | 2020-04-21 08:00 | NUR ---
NURSE NOTES: Patient awake and alert and oriented respirations unlabored.IV fluids infusing as ordered.Morales catheter is in place and yellow color urine in collection bag.Breakaafst at bed side.Bed alarm on,call light within reach.
--- NOTE | 2020-04-21 08:07 | Hematology/Onc Progress Note ---
Assessment/Plan Assessment/Plan # Leukopenia COVID19++++++++++ --> hep and hiv order as needed --> wbc 4-->3-->2.9->2 --> Neupogen 300 x1 04/21 --> isolation if anc<500 # Non-Hodgkins Lymphoma is s/p chemotherapy in the past --> to return to onco for further treatment --> likely for ct/pet as outpatient --> CT Here shows no e/o disease --> imaging has been reviewed thus far --> end date of 04/2020 # Anemia likely of chronic disease -- does not appear to have iron deficiency --> transfuse as needed, tibc and ferritin are cw acd --> hgb 7.8-->8.6-->8.5 --> no hemolysis is noted --> s/p transfusion on admission # Covid 19++ with SIRS (febrile, tachycardic) --> per pulm and id --> CXR with diffuse non-specific inflammatory/infectious process --> s/p Cefepime (04/14 - 04/15) # Hypokalemia # Hypomagnesia # Chronic Back pain # Full Code Appreciate consultation and dw Rn Subjective Constitutional: Denies: no symptoms, chills, fever, malaise, weakness, other HEENT: Denies: no symptoms, eye pain, blurred vision, tearing, double vision, ear pain, ear discharge, nose pain, nose congestion, throat pain, throat swelling, mouth pain, mouth swelling, other Cardiovascular: Denies: no symptoms, chest pain, edema, irregular heart rate, lightheadedness, palpitations, syncope, other Respiratory: Denies: no symptoms, cough, shortness of breath, SOB with excertion, SOB at rest, sputum, wheezing, other Gastrointestinal/Abdominal: Denies: no symptoms, abdomen distended, abdominal p ain, black stools, tarry stools, blood in stool, constipated, diarrhea, difficulty swallowing, nausea, poor appetite, poor fluid intake, rectal bleeding, vomiting, other Neurologic/Psychiatric: Denies: no symptoms, anxiety, depressed, emotional problems, headache, numbness, paresthesia, pre-existing deficit, seizure, tingling, tremors, weakness, other Endocrine: Denies: no symptoms, excessive sweating, flushing, intolerance to cold, intolerance to heat, increased hunger, increased thirst, increased urine, unexplained weight gain, unexplained weight loss, other Allergies: Coded Allergies: No Known Allergies (Unverified , 04/11/20) Subjective 04/17 is on room air, more comfortable, potential dc to snf 04/18 labs reviewed, no bleeding, meds noted, no night sweats 04/19 sleeping comfortably, no major events, no night sweats 04/20 meds noted, labs reviewed, wbc 2.9, hep and hiv is neg 04/21 labs reviewed, in am, the wbc was 2, to get neupogen x 1 dose now Objective Objective Current Medications Medications (Trade) Dose Ordered Sig/Angelika Route PRN Reason Start Time Stop Time Status Last Admin Dose Admin Acetaminophen (Tylenol) 650 mg Q6H PRN ORAL Mild Pain (Pain Scale 1-3) 04/12/20 02:45 05/12/20 02:44 04/18/20 18:00 Acetaminophen (Tylenol) 650 mg Q6H PRN ORAL FEVER 04/12/20 16:30 05/12/20 16:29 04/19/20 15:43 Allopurinol (allopurinoL) 300 mg DAILY ORAL 04/12/20 09:00 05/12/20 08:59 04/20/20 09:18 Baclofen (Lioresal) 10 mg THREE TIMES A DAY ORAL 04/12/20 09:00 05/12/20 08:59 04/19/20 09:44 Barium Sulfate (Readi-Cat 2) 450 ml NOW PRN ORAL Radiology Procedure 04/19/20 12:00 04/21/20 11:59 Chlorhexidine Gluconate (Christy-Hex 2%) 1 applic DAILY@2000 TOPIC 04/12/20 20:00 07/11/20 19:59 04/20/20 21:37 Dextrose/ Electrolytes 1,000 ml @ 50 mls/hr Q20H IV 04/14/20 12:00 05/14/20 11:59 04/20/20 14:07 Docusate Sodium (Colace) 100 mg TWICE A DAY ORAL 04/20/20 09:00 05/20/20 08:59 04/20/20 19:07 Enoxaparin Sodium (Lovenox) 40 mg DAILY SUBQ 04/18/20 10:00 07/17/20 09:59 Gadobutrol (Gadavist) 7.5 mmol NOW PRN IV Radiology Procedure 04/20/20 13:45 04/24/20 13:44 Gadobutrol (Gadavist) 7.5 mmol NOW PRN IV Radiology Procedure 04/20/20 13:45 04/24/20 13:44 Gadobutrol (Gadavist) 7.5 mmol NOW PRN IV Radiology Procedure 04/20/20 13:45 04/24/20 13:44 Iohexol (OMNIPAQUE-300 100ml) 100 ml ONCE PRN INJ RADIOLOGY 04/19/20 12:00 04/21/20 11:59 Iohexol (Omnipaque 350 100ml) 100 ml NOW PRN INJ Radiology Procedure 04/19/20 12:00 04/21/20 11:59 Iron Sucrose 100 mg/Sodium Chloride 60 ml @ 240 mls/hr BEDTIME IVPB 04/18/20 21:00 04/22/20 21:14 04/20/20 21:37 Lorazepam (Ativan 2mg/ml 1ml) 0.5 mg DAILYPRN PRN IV x1dose for anxiety in MRI 04/20/20 13:30 04/27/20 13:29 Morphine Sulfate (Morphine Sulfate) 1 mg Q3H PRN IVP Moderate Pain (Pain Scale 4-6) 04/19/20 06:15 04/26/20 06:14 Morphine Sulfate (Morphine Sulfate) 2 mg Q3H PRN IVP Severe Pain (Pain Scale 7-10) 04/19/20 06:15 04/26/20 06:14 04/21/20 05:15 Ondansetron HCl (Zofran) 4 mg Q6H PRN IVP Nausea & Vomiting 04/19/20 13:30 05/19/20 13:29 Polyethylene Glycol (Miralax) 17 gm DAILY ORAL 04/20/20 09:00 05/20/20 08:59 Tbo-Filgrastim (Granix) 300 mcg ONCE ONCE SQ 04/21/20 09:00 04/21/20 09:01 Vancomycin HCl (Vanco pharmacy to dose) 1 ea DAILY PRN MISC Per rx protocol 04/12/20 04:15 05/12/20 04:14 Vancomycin HCl 1 gm/Dextrose 275 ml @ 183.708 mls/hr Q12HR@1100,2300 IVPB 04/17/20 23:00 04/22/20 22:59 04/20/20 23:27 Last 24 Hour Vital Signs Date Time Temp Pulse Resp B/P (MAP) Pulse Ox O2 Delivery O2 Flow Rate FiO2 04/21/20 04:00 98.9 99 20 111/58 (75) 97 04/21/20 00:00 98.8 108 18 109/66 (80) 100 04/20/20 21:35 96 Nasal Cannula 2.0 28 04/20/20 21:00 Nasal Cannula 1.0 04/20/20 20:00 100.7 111 18 119/74 (89) 98 04/20/20 16:00 99.2 106 20 99/68 (78) 96 04/20/20 12:00 98.9 89 18 109/76 (87) 95 04/20/20 09:45 96 Nasal Cannula 2.0 28 04/20/20 09:00 Nasal Cannula 1.0 04/20/20 08:00 99.6 110 19 102/71 (81) 95 04/20/20 06:00 101 100/40 04/20/20 04:00 97.7 101 20 100/40 (60) 93 04/20/20 00:00 97.3 107 24 100/55 (70) 96 04/20/20 00:00 107 100/55 04/19/20 21:00 Nasal Cannula 2.0 04/19/20 20:08 95 Nasal Cannula 2.0 28 04/19/20 20:00 97.5 101 16 91/56 (68) 95 04/19/20 17:06 111 114/72 04/19/20 16:13 100.0 04/19/20 16:00 100.0 111 19 114/72 (86) 97 04/19/20 15:48 102.2 04/19/20 15:40 102.2 111 19 114/72 (86) 97 04/19/20 12:31 102 112/71 04/19/20 12:00 98.6 102 19 112/71 (85) 97 04/19/20 10:15 98.6 04/19/20 09:00 Nasal Cannula 2.0 Intake and Output 04/20/20 04/21/20 19:00 07:00 Intake Total 725.000 ml 885.000 ml Output Total 800 ml Balance 725.000 ml 85.000 ml IV Total 725.000 ml 885.000 ml Output Urine Total 800 ml # Voids 1 Labs Test 04/18/20 18:07 04/19/20 04:00 04/19/20 23:00 04/20/20 04:00 Urine Color Pale yellow Urine Appearance Clear Urine pH 7 (4.5-8.0) Urine Specific [place] 1.030 (1.005-1.035) Urine Protein Negative (NEGATIVE) Urine Glucose (UA) Negative (NEGATIVE) Urine Ketones Negative (NEGATIVE) Urine Blood Negative (NEGATIVE) Urine Nitrite Negative (NEGATIVE) Urine Bilirubin Negative (NEGATIVE) Urine Urobilinogen Normal MG/DL (0.0-1.0) Urine Leukocyte Esterase Negative (NEGATIVE) White Blood Count 2.9 K/UL (4.8-10.8) 2.2 K/UL (4.8-10.8) Red Blood Count 3.13 M/UL (4.20-5.40) 3.03 M/UL (4.20-5.40) Hemoglobin 8.6 G/DL (12.0-16.0) 8.0 G/DL (12.0-16.0) Hematocrit 25.1 % (37.0-47.0) 25.2 % (37.0-47.0) Mean Corpuscular Volume 80 FL (80-99) 83 FL (80-99) Mean Corpuscular Hemoglobin 27.5 PG (27.0-31.0) 26.5 PG (27.0-31.0) Mean Corpuscular Hemoglobin Concent 34.2 G/DL (32.0-36.0) 31.8 G/DL (32.0-36.0) Red Cell Distribution Width 18.6 % (11.6-14.8) 18.0 % (11.6-14.8) Platelet Count 344 K/UL (150-450) 347 K/UL (150-450) Mean Platelet Volume 5.2 FL (6.5-10.1) 5.3 FL (6.5-10.1) Neutrophils (%) (Auto) % (45.0-75.0) % (45.0-75.0) Lymphocytes (%) (Auto) % (20.0-45.0) % (20.0-45.0) Monocytes (%) (Auto) % (1.0-10.0) % (1.0-10.0) Eosinophils (%) (Auto) % (0.0-3.0) % (0.0-3.0) Basophils (%) (Auto) % (0.0-2.0) % (0.0-2.0) Differential Total Cells Counted 100 100 Neutrophils % (Manual) 60 % (45-75) 55 % (45-75) Lymphocytes % (Manual) 33 % (20-45) 34 % (20-45) Monocytes % (Manual) 3 % (1-10) 4 % (1-10) Eosinophils % (Manual) 4 % (0-3) 2 % (0-3) Basophils % (Manual) 0 % (0-2) 0 % (0-2) Band Neutrophils 0 % (0-8) 5 % (0-8) Platelet Estimate Adequate Adequate Platelet Morphology Normal Normal Hypochromasia 1+ 1+ Anisocytosis 1+ 2+ Sodium Level 141 MMOL/L (136-145) 138 MMOL/L (136-145) Potassium Level 4.1 MMOL/L (3.5-5.1) 4.2 MMOL/L (3.5-5.1) Chloride Level 105 MMOL/L (98-107) 105 MMOL/L (98-107) Carbon Dioxide Level 28 MMOL/L (21-32) 28 MMOL/L (21-32) Anion Gap 8 mmol/L (5-15) 5 mmol/L (5-15) Blood Urea Nitrogen 5 mg/dL (7-18) 2 mg/dL (7-18) Creatinine 0.5 MG/DL (0.55-1.30) 0.4 MG/DL (0.55-1.30) Estimat Glomerular Filtration Rate > 60 mL/min (>60) > 60 mL/min (>60) Glucose Level 85 MG/DL (74-106) 81 MG/DL (74-106) Calcium Level 8.6 MG/DL (8.5-10.1) 8.0 MG/DL (8.5-10.1) Phosphorus Level 3.6 MG/DL (2.5-4.9) 3.4 MG/DL (2.5-4.9) Magnesium Level 1.3 MG/DL (1.8-2.4) 2.7 MG/DL (1.8-2.4) Total Bilirubin 0.4 MG/DL (0.2-1.0) 0.4 MG/DL (0.2-1.0) Aspartate Amino Transf (AST/SGOT) 17 U/L (15-37) 17 U/L (15-37) Alanine Aminotransferase (ALT/SGPT) 10 U/L (12-78) 13 U/L (12-78) Alkaline Phosphatase 126 U/L (46-116) 121 U/L (46-116) Total Protein 6.2 G/DL (6.4-8.2) 6.0 G/DL (6.4-8.2) Albumin 2.5 G/DL (3.4-5.0) 2.4 G/DL (3.4-5.0) Globulin 3.7 g/dL Albumin/Globulin Ratio 0.7 (1.0-2.7) Vancomycin Level Trough 17.4 ug/mL (5.0-12.0) Direct Bilirubin 0.2 MG/DL (0.0-0.3) Gamma Glutamyl Transpeptidase 36 U/L (5-85) C-Reactive Protein, Quantitative 2.0 mg/dL (0.00-0.90) Test 04/21/20 05:00 White Blood Count 2.0 K/UL (4.8-10.8) Red Blood Count 2.99 M/UL (4.20-5.40) Hemoglobin 8.0 G/DL (12.0-16.0) Hematocrit 24.7 % (37.0-47.0) Mean Corpuscular Volume 82 FL (80-99) Mean Corpuscular Hemoglobin 26.8 PG (27.0-31.0) Mean Corpuscular Hemoglobin Concent 32.6 G/DL (32.0-36.0) Red Cell Distribution Width 18.1 % (11.6-14.8) Platelet Count 377 K/UL (150-450) Mean Platelet Volume 5.6 FL (6.5-10.1) Neutrophils (%) (Auto) % (45.0-75.0) Lymphocytes (%) (Auto) % (20.0-45.0) Monocytes (%) (Auto) % (1.0-10.0) Eosinophils (%) (Auto) % (0.0-3.0) Basophils (%) (Auto) % (0.0-2.0) Sodium Level 138 MMOL/L (136-145) Potassium Level 3.6 MMOL/L (3.5-5.1) Chloride Level 105 MMOL/L (98-107) Carbon Dioxide Level 26 MMOL/L (21-32) Anion Gap 7 mmol/L (5-15) Blood Urea Nitrogen 3 mg/dL (7-18) Creatinine 0.4 MG/DL (0.55-1.30) Estimat Glomerular Filtration Rate > 60 mL/min (>60) Glucose Level 87 MG/DL (74-106) Calcium Level 8.2 MG/DL (8.5-10.1) Total Bilirubin 0.5 MG/DL (0.2-1.0) Aspartate Amino Transf (AST/SGOT) 16 U/L (15-37) Alanine Aminotransferase (ALT/SGPT) 9 U/L (12-78) Alkaline Phosphatase 119 U/L (46-116) Total Protein 6.0 G/DL (6.4-8.2) Albumin 2.4 G/DL (3.4-5.0) Globulin 3.6 g/dL Albumin/Globulin Ratio 0.7 (1.0-2.7) Thyroid Stimulating Hormone (TSH) 0.109 uiU/mL (0.358-3.740) Free Thyroxine 0.73 NG/DL (0.76-1.46) Height (Feet): 5 Height (Inches): 7.00 Weight (Pounds): 150 Objective Gen: nad Pulm: ctab, no cwr CV: rrr Abd: soft, nt Ext: no cce Martinez Hill MD Apr 21, 2020 08:07
[2020-04-21] MEDS ORDERED: TBO-Filgrastim 300 mcg/0.5ml SQ ONE (09:00)
[2020-04-21] MEDS: Enoxaparin 40mg Inj SUBQ SCH (09:00)
[2020-04-21] MEDS: Miralax 17gm pkt ORAL SCH (09:00)
[2020-04-21] MEDS: Docusate 100mg cap ORAL SCH ×2 (09:25→19:05)
--- NOTE | 2020-04-21 09:29 | Nephrology Progress Note ---
Assessment/Plan Plan #hypokalemia- #hypomagnesemia #Acute on chronic anemia #h/p non- hodgkins lymphoma #possible sepsis #+ COVID #Femoral intertrochanteric hip fracture. - Pulmonary eval - prbc transfusion prn - replete lytes - hemo-onc eval - ID eval - continue with IV abx - monitor CBC - avoid nephrotoxins - ortho eval - spine eval for L3 acute on chronic bone infarct, less likely neoplasm or infection? times spent 65 min Subjective ROS Limited/Unobtainable: No Constitutional: Reports: weakness HEENT: Denies: no symptoms, eye pain, blurred vision, tearing, double vision, ear pain, ear discharge, nose pain, nose congestion, throat pain, throat swelling, mouth pain, mouth swelling, other Genitourinary: Denies: no symptoms, burning, discharge, frequency, flank pain, hematuria, incontinence, pain, urgency, other Neurologic/Psychiatric: Denies: no symptoms, anxiety, depressed, emotional problems, headache, numbness, paresthesia, pre-existing deficit, seizure, tingling, tremors, weakness, other Subjective + COVID ID and pulm consulted continues to spike fever hip fracture noted ortho consulted Impression: Minimal distention of the rectum with feces, could represent mild rectal fecal impaction. Equivocal slight thickening of the rectal wall and stranding of the perirectal fat, if real could indicate mild stercoral proctitis Comminuted fracture of the left femoral head, neck, and intertrochanteric region, ununited. Possibly acute, but abundant soft tissues surrounding the fracture area raises possibility that this could be chronic. Correlate with clinical findings Other findings as noted, including evidence of old T12 vertebral body compression fracture and prior vertebral augmentation procedure, Morales catheter, subcentimeter low-attenuation lesions which probably represent renal cysts, small sliding-type hiatal hernia Impression: Unusual signal abnormality of the posterolateral aspect of the L3 vertebral body on the right. This appears to be confined to the vertebral body marrow space. Prior CT scan in retrospect demonstrates sclerotic areas in the same location. Most likely differential consideration is an atypical hemangioma. Other possibilities include acute on chronic bone infarct, less likely neoplasm or infection No other unusual contrast enhancement. No findings to suggest discitis or epidural abscess. Objective Objective Last 24 Hour Vital Signs Date Time Temp Pulse Resp B/P (MAP) Pulse Ox O2 Delivery O2 Flow Rate FiO2 04/21/20 04:00 98.9 99 20 111/58 (75) 97 04/21/20 00:00 98.8 108 18 109/66 (80) 100 04/20/20 21:35 96 Nasal Cannula 2.0 28 04/20/20 21:00 Nasal Cannula 1.0 04/20/20 20:00 100.7 111 18 119/74 (89) 98 04/20/20 16:00 99.2 106 20 99/68 (78) 96 04/20/20 12:00 98.9 89 18 109/76 (87) 95 04/20/20 09:45 96 Nasal Cannula 2.0 28 Intake and Output 04/20/20 04/21/20 19:00 07:00 Intake Total 725.000 ml 885.000 ml Output Total 800 ml Balance 725.000 ml 85.000 ml IV Total 725.000 ml 885.000 ml Output Urine Total 800 ml # Voids 1 Laboratory Tests 04/21/20 05:00: White Blood Count 2.0*L, Red Blood Count 2.99L, Hemoglobin 8.0L, Hematocrit 24.7L, Mean Corpuscular Volume 82, Mean Corpuscular Hemoglobin 26.8L, Mean Corpuscular Hemoglobin Concent 32.6, Red Cell Distribution Width 18.1H, Platelet Count 377, Mean Platelet Volume 5.6L, Neutrophils (%) (Auto) , Lymphocytes (%) (Auto) , Monocytes (%) (Auto) , Eosinophils (%) (Auto) , Basophils (%) (Auto) , Differential Total Cells Counted 100, Neutrophils % (Manual) 57, Lymphocytes % (Manual) 37, Monocytes % (Manual) 4, Eosinophils % (Manual) 2, Basophils % (Manual) 0, Band Neutrophils 0, Platelet Estimate Adequate, Platelet Morphology Normal, Anisocytosis 1+, Sodium Level 138, Potassium Level 3.6, Chloride Level 105, Carbon Dioxide Level 26, Anion Gap 7, Blood Urea Nitrogen 3L, Creatinine 0.4L, Estimat Glomerular Filtration Rate > 60, Glucose Level 87, Calcium Level 8.2L, Total Bilirubin 0.5, Aspartate Amino Transf (AST/SGOT) 16, Alanine Aminotransferase (ALT/SGPT) 9L, Alkaline Phosphatase 119H, Pro-B-Type Natriuretic Peptide [Pending], Total Protein 6.0L, Albumin 2.4L, Globulin 3.6, Albumin/Globulin Ratio 0.7L, Thyroid Stimulating Hormone (TSH) 0.109L, Free Thyroxine 0.73L Height (Feet): 5 Height (Inches): 7.00 Weight (Pounds): 150 Kallie Dykes M.D. Apr 21, 2020 09:29
[2020-04-21] MEDS: Vancomycin 1 GM in D5W 275 ML IVPB SCH ×2 (11:39→23:08)
--- NOTE | 2020-04-21 12:26 | General Progress Note ---
Subjective ROS Limited/Unobtainable: No Allergies: Coded Allergies: No Known Allergies (Unverified , 04/11/20) Objective Last 24 Hour Vital Signs Date Time Temp Pulse Resp B/P (MAP) Pulse Ox O2 Delivery O2 Flow Rate FiO2 04/21/20 09:00 Nasal Cannula 1.0 04/21/20 08:00 98.9 104 21 105/67 (80) 96 04/21/20 04:00 98.9 99 20 111/58 (75) 97 04/21/20 00:00 98.8 108 18 109/66 (80) 100 04/20/20 21:35 96 Nasal Cannula 2.0 28 04/20/20 21:00 Nasal Cannula 1.0 04/20/20 20:00 100.7 111 18 119/74 (89) 98 04/20/20 16:00 99.2 106 20 99/68 (78) 96 Intake and Output 04/20/20 04/21/20 19:00 07:00 Intake Total 725.000 ml 885.000 ml Output Total 800 ml Balance 725.000 ml 85.000 ml IV Total 725.000 ml 885.000 ml Output Urine Total 800 ml # Voids 1 Laboratory Tests 04/21/20 05:00: White Blood Count 2.0*L, Red Blood Count 2.99L, Hemoglobin 8.0L, Hematocrit 24.7L, Mean Corpuscular Volume 82, Mean Corpuscular Hemoglobin 26.8L, Mean Corpuscular Hemoglobin Concent 32.6, Red Cell Distribution Width 18.1H, Platelet Count 377, Mean Platelet Volume 5.6L, Neutrophils (%) (Auto) , Lymphocytes (%) (Auto) , Monocytes (%) (Auto) , Eosinophils (%) (Auto) , Basophils (%) (Auto) , Differential Total Cells Counted 100, Neutrophils % (Manual) 57, Lymphocytes % (Manual) 37, Monocytes % (Manual) 4, Eosinophils % (Manual) 2, Basophils % (Manual) 0, Band Neutrophils 0, Platelet Estimate Adequate, Platelet Morphology Normal, Anisocytosis 1+, Sodium Level 138, Potassium Level 3.6, Chloride Level 105, Carbon Dioxide Level 26, Anion Gap 7, Blood Urea Nitrogen 3L, Creatinine 0.4L, Estimat Glomerular Filtration Rate > 60, Glucose Level 87, Calcium Level 8.2L, Total Bilirubin 0.5, Aspartate Amino Transf (AST/SGOT) 16, Alanine Aminotransferase (ALT/SGPT) 9L, Alkaline Phosphatase 119H, Pro-B-Type Natriuretic Peptide [Pending], Total Protein 6.0L, Albumin 2.4L, Globulin 3.6, Albumin/Globulin Ratio 0.7L, Thyroid Stimulating Hormone (TSH) 0.109L, Free Thyroxine 0.73L Height (Feet): 5 Height (Inches): 7.00 Weight (Pounds): 150 General Appearance: no apparent distress EENT: normal ENT inspection Neck: supple Cardiovascular: normal rate Respiratory/Chest: decreased breath sounds Abdomen: normal bowel sounds, non tender, soft Extremities: non-tender Assessment/Plan Status: stable Assessment/Plan: iron def anemia mild elevated CEA lymphoma on chemo covid positive neg stool ob iv iron fu H&H needs out patient fu for colonoscopy fu oncology CT reviewed colace miralax add lactulose add mineral oil enema Patrick Carter MD Apr 21, 2020 12:26
[2020-04-21] MEDS ORDERED: Fleet's Mineral Oil Enema RECTAL SCH (12:30)
--- NOTE | 2020-04-21 12:50 | Pulmonology Progress Note ---
Subjective ROS Limited/Unobtainable: No Interval Events: none new reported per nursing Constitutional: Reports: fatigue; Denies: fever HEENT: Repors: no symptoms; Denies: visual change, discharge Respiratory: Reports: no symptoms, dry cough - intermittent dry cough; Denies: shortness of breath, wheezing Cardiovascular: Reports: no symptoms Gastrointestinal/Abdominal: Denies: nausea, vomiting, diarrhea Psychiatric: Denies: depression Skin: Denies: rash Musculoskeletal: Denies: pain Allergies: Coded Allergies: No Known Allergies (Unverified , 04/11/20) Objective Last 24 Hour Vital Signs Date Time Temp Pulse Resp B/P (MAP) Pulse Ox O2 Delivery O2 Flow Rate FiO2 04/21/20 09:00 Nasal Cannula 1.0 04/21/20 08:00 98.9 104 21 105/67 (80) 96 04/21/20 04:00 98.9 99 20 111/58 (75) 97 04/21/20 00:00 98.8 108 18 109/66 (80) 100 04/20/20 21:35 96 Nasal Cannula 2.0 28 04/20/20 21:00 Nasal Cannula 1.0 04/20/20 20:00 100.7 111 18 119/74 (89) 98 04/20/20 16:00 99.2 106 20 99/68 (78) 96 Intake and Output 04/20/20 04/21/20 19:00 07:00 Intake Total 725.000 ml 885.000 ml Output Total 800 ml Balance 725.000 ml 85.000 ml IV Total 725.000 ml 885.000 ml Output Urine Total 800 ml # Voids 1 Objective 04/21 no change 04/20 pt saturating well on 2 lpm NC; NAD 04/19 pt saturating well on 2 lpm NC; NAD 04/18 pt saturating well on 2 lpm NC General Appearance: WD/WN, no acute distress HEENT: normocephalic, atraumatic Respiratory: lungs clear Cardiovascular: normal rate, regular rhythm Abdomen: soft, non tender Genitourinary: other - Morales Extremities: no edema Microbiology Date/Time Source Procedure Growth Status 04/18/20 13:05 Blood Blood Culture - Preliminary NO GROWTH AFTER 48 HOURS Resulted 04/18/20 13:05 Blood Blood Culture - Preliminary NO GROWTH AFTER 48 HOURS Resulted Laboratory Tests 04/21/20 05:00: White Blood Count 2.0*L, Red Blood Count 2.99L, Hemoglobin 8.0L, Hematocrit 24.7L, Mean Corpuscular Volume 82, Mean Corpuscular Hemoglobin 26.8L, Mean Corpuscular Hemoglobin Concent 32.6, Red Cell Distribution Width 18.1H, Platelet Count 377, Mean Platelet Volume 5.6L, Neutrophils (%) (Auto) , Lymphocytes (%) (Auto) , Monocytes (%) (Auto) , Eosinophils (%) (Auto) , Basophils (%) (Auto) , Differential Total Cells Counted 100, Neutrophils % (Manual) 57, Lymphocytes % (Manual) 37, Monocytes % (Manual) 4, Eosinophils % (Manual) 2, Basophils % (Manual) 0, Band Neutrophils 0, Platelet Estimate Adequate, Platelet Morphology Normal, Anisocytosis 1+, Sodium Level 138, Potassium Level 3.6, Chloride Level 105, Carbon Dioxide Level 26, Anion Gap 7, Blood Urea Nitrogen 3L, Creatinine 0.4L, Estimat Glomerular Filtration Rate > 60, Glucose Level 87, Calcium Level 8 .2L, Total Bilirubin 0.5, Aspartate Amino Transf (AST/SGOT) 16, Alanine Aminotransferase (ALT/SGPT) 9L, Alkaline Phosphatase 119H, Pro-B-Type Natriuretic Peptide [Pending], Total Protein 6.0L, Albumin 2.4L, Globulin 3.6, Albumin/Globulin Ratio 0.7L, Thyroid Stimulating Hormone (TSH) 0.109L, Free Thyroxine 0.73L Current Medications Medications (Trade) Dose Ordered Sig/Angelika Route PRN Reason Start Time Stop Time Status Last Admin Dose Admin Acetaminophen (Tylenol) 650 mg Q6H PRN ORAL Mild Pain (Pain Scale 1-3) 04/12/20 02:45 05/12/20 02:44 04/18/20 18:00 Acetaminophen (Tylenol) 650 mg Q6H PRN ORAL FEVER 04/12/20 16:30 05/12/20 16:29 04/19/20 15:43 Allopurinol (allopurinoL) 300 mg DAILY ORAL 04/12/20 09:00 05/12/20 08:59 04/21/20 09:25 Baclofen (Lioresal) 10 mg THREE TIMES A DAY ORAL 04/12/20 09:00 05/12/20 08:59 04/19/20 09:44 Chlorhexidine Gluconate (Christy-Hex 2%) 1 applic DAILY@2000 TOPIC 04/12/20 20:00 07/11/20 19:59 04/20/20 21:37 Dextrose/ Electrolytes 1,000 ml @ 50 mls/hr Q20H IV 04/14/20 12:00 05/14/20 11:59 04/20/20 14:07 Docusate Sodium (Colace) 100 mg TWICE A DAY ORAL 04/20/20 09:00 05/20/20 08:59 04/21/20 09:25 Enoxaparin Sodium (Lovenox) 40 mg DAILY SUBQ 04/18/20 10:00 07/17/20 09:59 Gadobutrol (Gadavist) 7.5 mmol NOW PRN IV Radiology Procedure 04/20/20 13:45 04/24/20 13:44 Gadobutrol (Gadavist) 7.5 mmol NOW PRN IV Radiology Procedure 04/20/20 13:45 04/24/20 13:44 Gadobutrol (Gadavist) 7.5 mmol NOW PRN IV Radiology Procedure 04/20/20 13:45 04/24/20 13:44 Iron Sucrose 100 mg/Sodium Chloride 60 ml @ 240 mls/hr BEDTIME IVPB 04/18/20 21:00 04/22/20 21:14 04/20/20 21:37 Lactulose (Cephulac) 20 gm THREE TIMES A DAY ORAL 04/21/20 13:00 05/21/20 12:59 Lorazepam (Ativan 2mg/ml 1ml) 0.5 mg DAILYPRN PRN IV x1dose for anxiety in MRI 04/20/20 13:30 04/27/20 13:29 Mineral Oil (Fleet's Mineral Oil Enema) 133 ml ONCE RECTAL 04/21/20 12:30 04/21/20 13:30 Morphine Sulfate (Morphine Sulfate) 1 mg Q3H PRN IVP Moderate Pain (Pain Scale 4-6) 04/19/20 06:15 04/26/20 06:14 Morphine Sulfate (Morphine Sulfate) 2 mg Q3H PRN IVP Severe Pain (Pain Scale 7-10) 04/19/20 06:15 04/26/20 06:14 04/21/20 10:56 Ondansetron HCl (Zofran) 4 mg Q6H PRN IVP Nausea & Vomiting 04/19/20 13:30 05/19/20 13:29 Polyethylene Glycol (Miralax) 17 gm DAILY ORAL 04/20/20 09:00 05/20/20 08:59 Vancomycin HCl (Vanco pharmacy to dose) 1 ea DAILY PRN MISC Per rx protocol 04/12/20 04:15 05/12/20 04:14 Vancomycin HCl 1 gm/Dextrose 275 ml @ 183.708 mls/hr Q12HR@1100,2300 IVPB 04/17/20 23:00 04/22/20 22:59 04/21/20 11:39 Assessment/Plan Assessment/Plan 1. COVID-19 positivity. - no indication for any steroid or remdesivir given her normoxemia at this time - Antibiotics per ID - s/p cefepime - CXR with diffuse non-specific inflammatory/infectious process - cont supplemental oxygen as needed 2. Immunocompromised state with history of non-Hodgkin lymphoma. - on chemo 3. Hx of ever. 4. Hx of Hypertension. 5. Gout. DVT ppx - on SCD; pt declined lovenox We will follow. The care for this patient was discussed with my supervising physician Time spent for this case was approximately 31 minutes The patient was seen and examined at bedside and all new and available data was reviewed in the patients chart. I agree with the above findings, impression, and plan. (Patient was seen earlier today. Signature timestamp does not reflect patient encounter time) Joaquín Fernandez MD Apr 21, 2020 12:50 Ricky Jordan MD Apr 21, 2020 15:47
--- NOTE | 2020-04-21 14:17 | Cardiac Electrophysiology PN ---
Assessment/Plan Assessment/Plan 1. Sinus tachycardia due to sepsis and COVID. Check a thyroid function test. Cannot use beta-domenico as blood pressure is 100/70. 2. COVID pneumonia. 3. Hypokalemia. 4. Hypomagnesemia. 5. History of non-Hodgkin lymphoma. Subjective Subjective No events in Covid isolation. Objective Last 24 Hour Vital Signs Date Time Temp Pulse Resp B/P (MAP) Pulse Ox O2 Delivery O2 Flow Rate FiO2 04/21/20 09:00 Nasal Cannula 1.0 04/21/20 08:00 98.9 104 21 105/67 (80) 96 04/21/20 04:00 98.9 99 20 111/58 (75) 97 04/21/20 00:00 98.8 108 18 109/66 (80) 100 04/20/20 21:35 96 Nasal Cannula 2.0 28 04/20/20 21:00 Nasal Cannula 1.0 04/20/20 20:00 100.7 111 18 119/74 (89) 98 04/20/20 16:00 99.2 106 20 99/68 (78) 96 Intake and Output 04/20/20 04/21/20 19:00 07:00 Intake Total 725.000 ml 885.000 ml Output Total 800 ml Balance 725.000 ml 85.000 ml IV Total 725.000 ml 885.000 ml Output Urine Total 800 ml # Voids 1 Laboratory Tests Test 04/21/20 05:00 White Blood Count 2.0 K/UL (4.8-10.8) *L Red Blood Count 2.99 M/UL (4.20-5.40) L Hemoglobin 8.0 G/DL (12.0-16.0) L Hematocrit 24.7 % (37.0-47.0) L Mean Corpuscular Volume 82 FL (80-99) Mean Corpuscular Hemoglobin 26.8 PG (27.0-31.0) L Mean Corpuscular Hemoglobin Concent 32.6 G/DL (32.0-36.0) Red Cell Distribution Width 18.1 % (11.6-14.8) H Platelet Count 377 K/UL (150-450) Mean Platelet Volume 5.6 FL (6.5-10.1) L Neutrophils (%) (Auto) % (45.0-75.0) Lymphocytes (%) (Auto) % (20.0-45.0) Monocytes (%) (Auto) % (1.0-10.0) Eosinophils (%) (Auto) % (0.0-3.0) Basophils (%) (Auto) % (0.0-2.0) Differential Total Cells Counted 100 Neutrophils % (Manual) 57 % (45-75) Lymphocytes % (Manual) 37 % (20-45) Monocytes % (Manual) 4 % (1-10) Eosinophils % (Manual) 2 % (0-3) Basophils % (Manual) 0 % (0-2) Band Neutrophils 0 % (0-8) Platelet Estimate Adequate Platelet Morphology Normal Anisocytosis 1+ Sodium Level 138 MMOL/L (136-145) Potassium Level 3.6 MMOL/L (3.5-5.1) Chloride Level 105 MMOL/L (98-107) Carbon Dioxide Level 26 MMOL/L (21-32) Anion Gap 7 mmol/L (5-15) Blood Urea Nitrogen 3 mg/dL (7-18) L Creatinine 0.4 MG/DL (0.55-1.30) L Estimat Glomerular Filtration Rate > 60 mL/min (>60) Glucose Level 87 MG/DL (74-106) Calcium Level 8.2 MG/DL (8.5-10.1) L Total Bilirubin 0.5 MG/DL (0.2-1.0) Aspartate Amino Transf (AST/SGOT) 16 U/L (15-37) Alanine Aminotransferase (ALT/SGPT) 9 U/L (12-78) L Alkaline Phosphatase 119 U/L (46-116) H Pro-B-Type Natriuretic Peptide Pending Total Protein 6.0 G/DL (6.4-8.2) L Albumin 2.4 G/DL (3.4-5.0) L Globulin 3.6 g/dL Albumin/Globulin Ratio 0.7 (1.0-2.7) L Thyroid Stimulating Hormone (TSH) 0.109 uiU/mL (0.358-3.740) Free Thyroxine 0.73 NG/DL (0.76-1.46) L Objective HEAD AND NECK: No JVD. LUNGS: Coarse rhonchi. CARDIOVASCULAR: Regular S1 and S2 with no gallop or murmur. ABDOMEN: Soft. EXTREMITIES: No pitting edema. Ehsan Wan MD Apr 21, 2020 14:17
[2020-04-21] MEDS: Lactulose 20gm/30ml UDC ORAL SCH ×2 (14:46→19:05)
--- NOTE | 2020-04-21 14:52 | NUR ---
insurance REVIEW AND CLINICALS FAXED TO (04/17-04/21)[facility] T: [phone] F: [phone]
--- NOTE | 2020-04-21 15:45 | Diagnostic Imaging Report ---
Indication: Neck and back pain, fevers, history of cancer Technique: Sagittal T1 FLAIR, sagittal T2 FRFSE, sagittal STIR, axial T2 FRFSE, axial COSMIC ASPIR, post contrast axial and sagittal T1-weighted images of the cervical spine Comparison: none Findings: The bony alignment is normal. The vertebral body heights are preserved. The vertebral marrow signal is normal. The discs are desiccated without evidence of abnormal disc fluid. The intrinsic cord signal is normal. No unusual epidural or other fluid collections are evident. No unusual contrast enhancement is demonstrated. At C2-3, the disc space is preserved. The neural foramina are preserved. There is minimal circumferential annular bulge which results in borderline narrowing of the spinal canal. At C3-4, there is minimal degenerative disc narrowing. Circumferential annular bulge results in mild to moderate narrowing of the spinal canal. There is mild to moderate bilateral neural foraminal stenosis. At C4-5, there is mild degenerative disc narrowing. Circumferential annular bulge and ligamentum flavum hypertrophy results in mild to moderate narrowing of the spinal canal, minimum AP dimension 8 mm. There is moderate and severe bilateral neural foraminal stenosis. At C5-6, there is moderate to severe degenerative disc narrowing. There is right paracentral disc protrusion with small high intensity zone which may impinge slightly upon the right lateral recess. There is mild to moderate left and moderate to severe right neural foraminal stenosis. No definite central canal stenosis. At C6-7, there is mild degenerative disc narrowing. There is mild to moderate bilateral neural foraminal stenosis. No significant disc bulge or protrusion or spinal canal stenosis. At C7-T1, no significant disc bulge or protrusion, spinal stenosis, or neural foraminal narrowing. The included extraspinal soft tissues are unremarkable. Impression: No acute abnormality. Specifically, no evidence of osteomyelitis, discitis, or epidural or other abscess Degenerative changes, with spinal stenosis, most severe at C3-4 and C4-5 as well as multilevel neural foraminal stenoses as detailed above
[2020-04-21 16:00] VITALS: BP 103/71
--- NOTE | 2020-04-21 16:06 | Diagnostic Imaging Report ---
Indication: Back pain Technique: Sagittal T1 fast spin echo, sagittal and axial T2 FRFSE, sagittal STIR, axial T1, pre and postcontrast axial and sagittal T1-weighted images of the thoracic spine Comparison: No comparison MRI. Reference made to chest CT dated 04/19/2020 Findings: Patient is status post laminectomies of of T3 to T6. There is midline low signal posterior to the thecal sac, presumably representing combination of bone fragments and scar tissue. There is a small CSF intensity fluid collection posterolateral to the dura in the midline, extending from T3 to the bottom of T4, measuring approximately 4 mm AP and 10 mm transverse. There is no associated contrast enhancement. On one of the axial images, this collection may communicate with the CSF space. More inferiorly, this collection is smaller and is posterolateral to the left, extending to the T6 level. Bony alignment is normal. There is a compression fracture deformity of the T12 vertebral body. There are some focal well-circumscribed STIR hyperintensities abutting the superior endplate, but no definite marrow edema. There is evidence of prior vertebral augmentation procedure. The remaining vertebral body heights are preserved. The vertebral marrow signal is otherwise normal. No significant disc bulge or protrusion, spinal stenosis, or neural foraminal stenosis is demonstrated. Intrinsic cord signal is normal. The included extraspinal soft tissues are unremarkable. No unusual contrast enhancement is demonstrated. Impression: No acute abnormality demonstrated Postsurgical changes,, with evidence of prior laminectomies at T3-T6. There is evidence of scar tissue. A linear fluid collection paralleling the thecal sac most likely represents a small postoperative seroma, but could also represent a small postoperative meningocele. There are no findings to suggest an infected collection. T12 compression fracture, old, status post vertebral augmentation procedure. No significant degenerative changes, spinal stenosis, or neural foraminal narrowing
--- NOTE | 2020-04-21 16:18 | Infectious Diseases Prog Note ---
Assessment/Plan Assessment/Plan A) 1) covid-19 virus infection with fevers, saturations stable, CT A/P/C - no obvious pna or abscess, sats stable, no sob, cultures negative 2) hx lymphoma and chemo, history of port line infection and finishing vancomycin treatment course - end date per patient 3) hx anemia 4) allergies - nkda, fh-nc, sh-negative 5) d/w RN 6) notes and records noted P) 1) no indication for covid-19 tx, sats stable, no sob 2) finish vancomycin for previous port-line infection - 04/25/20 end date per patient 3) monitor labs, monitor for hypoxia, monitor fevers, cultures negative 4) will f/u 5) d/w patient 6) d/w Dr. Jordan Subjective Constitutional: Reports: fever, fatigue HEENT: Denies: congestion Respiratory: Denies: shortness of breath Cardiovascular: Denies: chest pain Gastrointestinal/Abdominal: Denies: nausea, vomiting Genitourinary: Denies: dysuria, hematuria, frequency Neurologic: Denies: headache Psychiatric: Denies: depression Skin: Denies: rash Hematologic: Denies: bleeding Musculoskeletal: Denies: pain Allergies: Coded Allergies: No Known Allergies (Unverified , 04/11/20) Objective Last 24 Hour Vital Signs Date Time Temp Pulse Resp B/P (MAP) Pulse Ox O2 Delivery O2 Flow Rate FiO2 04/21/20 09:00 Nasal Cannula 1.0 04/21/20 08:00 98.9 104 21 105/67 (80) 96 04/21/20 04:00 98.9 99 20 111/58 (75) 97 04/21/20 00:00 98.8 108 18 109/66 (80) 100 04/20/20 21:35 96 Nasal Cannula 2.0 28 04/20/20 21:00 Nasal Cannula 1.0 04/20/20 20:00 100.7 111 18 119/74 (89) 98 Height (Feet): 5 Height (Inches): 7.00 Weight (Pounds): 150 General Appearance: no acute distress HEENT: normocephalic, atraumatic, anicteric, pharynx normal, supple, no JVD Respiratory/Chest: lungs clear, normal breath sounds, no respiratory distress, no accessory muscle use Cardiovascular: normal rate, regular rhythm, no gallop/murmur Abdomen: normal bowel sounds, soft, non tender, no organomegaly, non distended Genitourinary: other - no eaton Extremities: no cyanosis Skin: no rash Neurologic/Psychiatric: configuration management analyst II-XII grossly normal, alert, oriented x 3, responsive Lymphatic: no neck adenopathy Musculoskeletal: no effusion Chest x-ray - 04/13/20 - Findings: The cardiomediastinal silhouette is within normal limits. There is diffuse interstitial prominence. No airspace consolidation. No pneumothorax or pleural effusion. No acute osseous abnormality. Right approach PICC terminates in the expected location of mid SVC IMPRESSION: Diffuse interstitial prominence, which is nonspecific but may be related to peribronchial thickening in the setting of infectious/inflammatory airways disease or interstitial edema. CT angio chest: Impression: No evidence of acute pulmonary embolus or other acute thoracic vascular pathology. Areas of consolidation and volume loss with associated bronchiectasis most likely represent areas of scarring and atelectasis. Note definite acute infiltrates. Other findings as noted, including evidence of prior upper thoracic spine surgery, T12 compression fracture deformity and evidence of prior vertebral augmentation procedure, sliding-type hiatal hernia, PICC CT abdomen and pelvis: Impression: Minimal distention of the rectum with feces, could represent mild rectal fecal impaction. Equivocal slight thickening of the rectal wall and stranding of the perirectal fat, if real could indicate mild stercoral proctitis Comminuted fracture of the left femoral head, neck, and intertrochanteric region, ununited. Possibly acute, but abundant soft tissues surrounding the fracture area raises possibility that this could be chronic. Correlate with clinical findings Other findings as noted, including evidence of old T12 vertebral body ej altaf fracture and prior vertebral augmentation procedure, Eaton catheter, subcentimeter low-attenuation lesions which probably represent renal cysts, small sliding-type hiatal hernia Microbiology Date/Time Source Procedure Growth Status 04/18/20 13:05 Blood Blood Culture - Preliminary NO GROWTH AFTER 48 HOURS Resulted 04/14/20 00:45 Urine,Clean Catch Urine Culture - Final NO GROWTH AFTER 48 HOURS Complete 04/12/20 17:00 Nasopharynx Coronavirus COVID-19 PCR (KENDELL) - Final Complete 04/12/20 01:30 Rectum - Final NO CARBAPENEM-RESISTANT ENTEROBACTERI... Complete Laboratory Tests Test 04/21/20 05:00 White Blood Count 2.0 K/UL (4.8-10.8) *L Red Blood Count 2.99 M/UL (4.20-5.40) L Hemoglobin 8.0 G/DL (12.0-16.0) L Hematocrit 24.7 % (37.0-47.0) L Mean Corpuscular Volume 82 FL (80-99) Mean Corpuscular Hemoglobin 26.8 PG (27.0-31.0) L Mean Corpuscular Hemoglobin Concent 32.6 G/DL (32.0-36.0) Red Cell Distribution Width 18.1 % (11.6-14.8) H Platelet Count 377 K/UL (150-450) Mean Platelet Volume 5.6 FL (6.5-10.1) L Neutrophils (%) (Auto) % (45.0-75.0) Lymphocytes (%) (Auto) % (20.0-45.0) Monocytes (%) (Auto) % (1.0-10.0) Eosinophils (%) (Auto) % (0.0-3.0) Basophils (%) (Auto) % (0.0-2.0) Differential Total Cells Counted 100 Neutrophils % (Manual) 57 % (45-75) Lymphocytes % (Manual) 37 % (20-45) Monocytes % (Manual) 4 % (1-10) Eosinophils % (Manual) 2 % (0-3) Basophils % (Manual) 0 % (0-2) Band Neutrophils 0 % (0-8) Platelet Estimate Adequate Platelet Morphology Normal Anisocytosis 1+ Sodium Level 138 MMOL/L (136-145) Potassium Level 3.6 MMOL/L (3.5-5.1) Chloride Level 105 MMOL/L (98-107) Carbon Dioxide Level 26 MMOL/L (21-32) Anion Gap 7 mmol/L (5-15) Blood Urea Nitrogen 3 mg/dL (7-18) L Creatinine 0.4 MG/DL (0.55-1.30) L Estimat Glomerular Filtration Rate > 60 mL/min (>60) Glucose Level 87 MG/DL (74-106) Calcium Level 8.2 MG/DL (8.5-10.1) L Total Bilirubin 0.5 MG/DL (0.2-1.0) Aspartate Amino Transf (AST/SGOT) 16 U/L (15-37) Alanine Aminotransferase (ALT/SGPT) 9 U/L (12-78) L Alkaline Phosphatase 119 U/L (46-116) H Pro-B-Type Natriuretic Peptide Pending Total Protein 6.0 G/DL (6.4-8.2) L Albumin 2.4 G/DL (3.4-5.0) L Globulin 3.6 g/dL Albumin/Globulin Ratio 0.7 (1.0-2.7) L Thyroid Stimulating Hormone (TSH) 0.109 uiU/mL (0.358-3.740) Free Thyroxine 0.73 NG/DL (0.76-1.46) L Current Medications Medications (Trade) Dose Ordered Sig/Angelika Route PRN Reason Start Time Stop Time Status Last Admin Dose Admin Acetaminophen (Tylenol) 650 mg Q6H PRN ORAL Mild Pain (Pain Scale 1-3) 04/12/20 02:45 05/12/20 02:44 04/18/20 18:00 Acetaminophen (Tylenol) 650 mg Q6H PRN ORAL FEVER 04/12/20 16:30 05/12/20 16:29 04/19/20 15:43 Allopurinol (allopurinoL) 300 mg DAILY ORAL 04/12/20 09:00 05/12/20 08:59 04/21/20 09:25 Baclofen (Lioresal) 10 mg THREE TIMES A DAY ORAL 04/12/20 09:00 05/12/20 08:59 04/19/20 09:44 Chlorhexidine Gluconate (Christy-Hex 2%) 1 applic DAILY@2000 TOPIC 04/12/20 20:00 07/11/20 19:59 04/20/20 21:37 Dextrose/ Electrolytes 1,000 ml @ 50 mls/hr Q20H IV 04/14/20 12:00 05/14/20 11:59 04/20/20 14:07 Docusate Sodium (Colace) 100 mg TWICE A DAY ORAL 04/20/20 09:00 05/20/20 08:59 04/21/20 09:25 Enoxaparin Sodium (Lovenox) 40 mg DAILY SUBQ 04/18/20 10:00 07/17/20 09:59 Gadobutrol (Gadavist) 7.5 mmol NOW PRN IV Radiology Procedure 04/20/20 13:45 04/24/20 13:44 Gadobutrol (Gadavist) 7.5 mmol NOW PRN IV Radiology Procedure 04/20/20 13:45 04/24/20 13:44 Gadobutrol (Gadavist) 7.5 mmol NOW PRN IV Radiology Procedure 04/20/20 13:45 04/24/20 13:44 Iron Sucrose 100 mg/Sodium Chloride 60 ml @ 240 mls/hr BEDTIME IVPB 04/18/20 21:00 04/22/20 21:14 04/20/20 21:37 Lactulose (Cephulac) 20 gm THREE TIMES A DAY ORAL 04/21/20 13:00 05/21/20 12:59 04/21/20 14:46 Lorazepam (Ativan 2mg/ml 1ml) 0.5 mg DAILYPRN PRN IV x1dose for anxiety in MRI 04/20/20 13:30 04/27/20 13:29 Morphine Sulfate (Morphine Sulfate) 1 mg Q3H PRN IVP Moderate Pain (Pain Scale 4-6) 04/19/20 06:15 04/26/20 06:14 Morphine Sulfate (Morphine Sulfate) 2 mg Q3H PRN IVP Severe Pain (Pain Scale 7-10) 04/19/20 06:15 04/26/20 06:14 04/21/20 10:56 Ondansetron HCl (Zofran) 4 mg Q6H PRN IVP Nausea & Vomiting 04/19/20 13:30 05/19/20 13:29 Polyethylene Glycol (Miralax) 17 gm DAILY ORAL 04/20/20 09:00 05/20/20 08:59 Vancomycin HCl (Vanco pharmacy to dose) 1 ea DAILY PRN MISC Per rx protocol 04/12/20 04:15 05/12/20 04:14 Vancomycin HCl 1 gm/Dextrose 275 ml @ 183.708 mls/hr Q12HR@1100,2300 IVPB 04/17/20 23:00 04/25/20 23:59 04/21/20 11:39 Marko Rivera MD Apr 21, 2020 16:18
--- NOTE | 2020-04-21 16:55 | NUR ---
CASE MANAGEMENT:REVIEW SI;COVID PNEUMONIA 99.4 108 21 111/58 96% 2L NC WBC 2.0 H/H 8.0/24.7 ALB 2.4 IS;LACTULOSE PO TID MORPHINE SULFATE IV Q3 PRN LOVENOX SQ QD VANCOMYCIN IV Q12 IVF D5W @ 50 ML/HR ALLOPURINOL PO QD MED SURG STATUS DCP;FROM [facility]
--- NOTE | 2020-04-21 18:00 | NUR ---
NURSE NOTES: Patient able to resting after receiving pain medication.Patient given medication .Patient starting to have bowel movement.Dinner at bedside NURSE NOTES: Patient starting to have bowel movement after receiving enema and stool softner.Patient on Miralax,patient state that it does not help her but Patient will try to take in the morning.bed alarm on,call light within reach..
--- NOTE | 2020-04-21 19:00 | NUR ---
NURSE HAND-OFF: Douglas LUCIA Important Events on Shift:[starting on Lactulose Patient Status: [] Diet: [regular] Pending Orders: [] Pending Results/Labs:[] Pending MD notification:[] Latest Vital Signs: Temperature 99.4 , Pulse 104 , B/P 103 /71 , Respiratory Rate 19 , O2 SAT 94 , Nasal Cannula, O2 Flow Rate 1.0 . Vital Sign Comment: [] Latest [place] Fall Score: 35 Fall Risk: Medium Risk Safety Measures: Call light Within Reach, Bed Alarm Zone 1, Side Rails Side Rails x2, Bed position Low and Locked. Fall Precautions: y Door Sign y Patient Fall Education Report given to [].
--- NOTE | 2020-04-21 19:24 | General Progress Note ---
Subjective Allergies: Coded Allergies: No Known Allergies (Unverified , 04/11/20) Subjective No acute events overnight per nursing. Patient feels better. Still with intermittent mid thoracic/lumbar back pain. No neck pain. Tmax 100.7. MRI C/T/L without evidence of infection. Feels tired but otherwise no symptoms No cough, SOB. No other complaints. Review of systems: Constitutional: Denies: chills, diaphoresis, malaise, weakness, + fever inter mittent HEENT: Denies: eye pain, blurred vision, double vision, ear pain, nose pain, throat pain, Cardiovascular: Denies: chest pain, edema, lightheadedness, palpitations Respiratory: Denies: cough, orthopnea, shortness of breath, SOB with excertion, SOB at rest, Gastrointestinal/Abdominal: Denies: abdominal pain, black stools, blood in stool, constipation, diarrhea, nausea, poor fluid intake vomiting, other Genitourinary: Denies: burning, discharge, frequency, Neurologic/Psychiatric: Denies: headache, numbness, paresthesia, new weakness, other Endocrine: Denies: excessive sweating, flushing, intolerance to cold, MSK: denies joint pains, swelling, stiffness Hematologic/Lymphatic: Denies: anemia, easy bleeding, easy bruising, Objective Last 24 Hour Vital Signs Date Time Temp Pulse Resp B/P (MAP) Pulse Ox O2 Delivery O2 Flow Rate FiO2 04/21/20 16:00 99.4 104 19 103/71 (82) 94 04/21/20 09:00 Nasal Cannula 1.0 04/21/20 08:00 98.9 104 21 105/67 (80) 96 04/21/20 04:00 98.9 99 20 111/58 (75) 97 04/21/20 00:00 98.8 108 18 109/66 (80) 100 04/20/20 21:35 96 Nasal Cannula 2.0 28 04/20/20 21:00 Nasal Cannula 1.0 04/20/20 20:00 100.7 111 18 119/74 (89) 98 Intake and Output 04/20/20 04/21/20 19:00 07:00 Intake Total 725.000 ml 885.000 ml Output Total 800 ml Balance 725.000 ml 85.000 ml IV Total 725.000 ml 885.000 ml Output Urine Total 800 ml # Voids 1 Laboratory Tests 04/21/20 05:00: White Blood Count 2.0*L, Red Blood Count 2.99L, Hemoglobin 8.0L, Hematocrit 24.7L, Mean Corpuscular Volume 82, Mean Corpuscular Hemoglobin 26.8L, Mean Corpuscular Hemoglobin Concent 32.6, Red Cell Distribution Width 18.1H, Platelet Count 377, Mean Platelet Volume 5.6L, Neutrophils (%) (Auto) , Lymphocytes (%) (Auto) , Monocytes (%) (Auto) , Eosinophils (%) (Auto) , Basophils (%) (Auto) , Differential Total Cells Counted 100, Neutrophils % (Manual) 57, Lymphocytes % (Manual) 37, Monocytes % (Manual) 4, Eosinophils % (Manual) 2, Basophils % (Manual) 0, Band Neutrophils 0, Platelet Estimate Adequate, Platelet Morphology Normal, Anisocytosis 1+, Sodium Level 138, Potassium Level 3.6, Chloride Level 105, Carbon Dioxide Level 26, Anion Gap 7, Blood Urea Nitrogen 3L, Creatinine 0.4L, Estimat Glomerular Filtration Rate > 60, Glucose Level 87, Calcium Level 8.2L, Total Bilirubin 0.5, Aspartate Amino Transf (AST/SGOT) 16, Alanine Aminotransferase (ALT/SGPT) 9L, Alkaline Phosphatase 119H, Pro-B-Type Natriuretic Peptide [Pending], Total Protein 6.0L, Albumin 2.4L, Globulin 3.6, Albumin/Globulin Ratio 0.7L, Thyroid Stimulating Hormone (TSH) 0.109L, Free Thyroxine 0.73L Height (Feet): 5 Height (Inches): 7.00 Weight (Pounds): 150 Objective General: WDWN female in NAD, A&O x 4 HEENT: Normocephalic cephalic atraumatic, pupils equal round reactive to light and accommodation, nares patent and no symmetrical, no tonsillar exudates, mucous membranes moist CV: Regular rate regular rhythm, no murmurs, rubs, or gallops + POrt site is C/d/i. Pulm: Lungs clear to auscultation bilaterally. No wheezes, rhonchi, or rales GI: Soft, nontender, nondistended, bowel sounds present + eaton in place, no suprapubic TTP Neuro: CN 2-12 intact bilaterally, no focal signs. Moving all extremities Ext: No lower extremity edema bilaterally Skin: no rashes lesions or ulcers Msk: Joints symmetrical in upper extremity and lower extremity bilaterally, no joint swelling. + left hip pain (slightly) Lymph: No lymphadenopathy in upper extremity and lower extremity Assessment/Plan Status: stable Assessment/Plan: #Hx of Sepsis 2' port infection #Sepsis due to COVID 19 pneumonia (febrile, tachycardic) #COVID 19+ #Continued fever of unknown origin. COVID vs. cancer related? - CTM Fever curve. Could be due to underlying malignancy - Repeat Blood cultures NGTD - Repeat UA: negative - Repeat CXR: Bronchial thickening - Check CT C/A/P including CT angio to eval for PE. : reviewed. No PE. No obvious infection. Incidental left hip fracture - IV fluids - D/W ID. - Port has been removed at [facility] - ngtd - Cefepime (04/14 - 04/15) - Per patient she is to continue on Vancomycin till 04/25 - ID Consult, appreciate recs - MRI C/T/L spine w/wo contrast to eval for abscess: No sign of infection, abscess or osteo #L3 lesion on MRI: bone infarct vs. osteoid osteoma vs. less likely infection #Chronic LE weakness #s/p Laminectomy earlier in the year #Chronic Back pain > d/w radiology Dr. Hedrick - d/w ID, Neuro - outpatient f/u with spine surgeon: Dr. Nino in [facility] - appreciate neurology consult: Dr. Bajwa - PT when able - Resume Baclofen, norco, tramadol #Hypothyroidism, suspect central given TSH and T4 both low - endocrinology consulted: Dr. Fermin to see #left hip fracture, suspect chronic > Patient states she fell 5 months ago but no recent falls. Also had hard fall on coccyx in 2018. Minimal pain in left hip - appreciate ortho eval: Dr. Payan. Given patient bed bound risks > benefits. Outpatient consideration - pain management #Hx of Lymphoma #leukopenia > S/p mets to spine s/p surgery earlier this year and XRT/Chemo > Last chemo in February 2020 - All information per patient - Oncology following, appreciate recs - Can continue current therapy with outpatient onc - No acute interventions needed inpatient - Neupogen x 1 04/21 #Acute blood loss anemia - resolving #anemia of chronic disease #Normocytic anemia Patient presented with Hb 6.7 with normal MCV. History of lymphoma per patient and is receiving chemo tx, last known to be February 2020. - 2U PRBCs ordered and transfused on admission - Hb Stable - Rectic count wnl, Iron and Iron sat low, Ferritin wnl - No active signs of bleeding - Hematology consulted, appreciate recs - CTM for signs of bleeding - Patient will need colonoscopy as outpatient in the future : Gi Consulted; Dr. Carter #proctitis #Constipation- > improving - Aggressive bowel regimen - GI aware: Appreciate recommendations - Colace, miralax, - s/p enema and ducolax with improvement #Hypokalemia #hypomagnesia - Lytes replaced - appreciate nephro management Full Code Regular Diet Dispo - Discharge back to SNF. 36 minutes spent on this encounter, and 20 minutes spent on counseling and care coordination. Discussed with ID, heme/onc, RN time of note does not reflect time of encounter. Jus Brunner D.O. Apr 21, 2020 19:24
--- NOTE | 2020-04-21 19:43 | NUR ---
NURSE NOTES: Pt. received from REA Feng. Pt. AAOx4, on 1L NC, breathing even and unlabored, no indications of respiratory distress, no complaints of pain. PICC right upper arm CDI with D5 NS 20Kcl at 50cc running. Bed low and locked, side rails x3 up, bed alarm active, and call light in reach.
[2020-04-21 20:00] VITALS: BP 112/71
[2020-04-21] MEDS: Iron Sucrose 100 MG in NS 55 ML IVPB SCH (20:37)
[2020-04-21] MEDS: Dyna-Hex 2% Top Sol 2oz TOPIC SCH (20:37)
--- NOTE | 2020-04-21 21:58 | Neurology Progress Note ---
Interim History Interim History ROS Limited/Unobtainable: No Interim History 5F with PMhx of Non-Hodgkins Lymphoma (per patient) and recent admission for Sepsis 2' port infection presents following abnormal labs at SNF. Patient states that she was recently at OSH and treated for sepsis 2' port infection and is receiving antibiotics at SNF. She had a new diagnosis of lymphoma and is following by outside oncologist and last received chemo maricarmen atment in February 2020. Her sister called nursing staff and it was noted that her prior hb were in the range of 9-10g/dL. She states she is weaker. She has not had a colonoscopy in the past. Denies any vaginal bleeding, rectal bleeding, or dark/tarry bowel movements. She says it was noted that there is increasing burden of her lymphoma in her spine. pain remains severe in legs, remains in covid siolation Objective Physical Exam Last Vital Signs Date Time Temp Pulse Resp B/P (MAP) Pulse Ox O2 Delivery O2 Flow Rate FiO2 04/21/20 16:00 99.4 104 19 103/71 (82) 94 04/21/20 09:00 Nasal Cannula 1.0 04/20/20 21:35 28 Laboratory Tests Test 04/21/20 05:00 White Blood Count 2.0 K/UL (4.8-10.8) *L Red Blood Count 2.99 M/UL (4.20-5.40) L Hemoglobin 8.0 G/DL (12.0-16.0) L Hematocrit 24.7 % (37.0-47.0) L Mean Corpuscular Volume 82 FL (80-99) Mean Corpuscular Hemoglobin 26.8 PG (27.0-31.0) L Mean Corpuscular Hemoglobin Concent 32.6 G/DL (32.0-36.0) Red Cell Distribution Width 18.1 % (11.6-14.8) H Platelet Count 377 K/UL (150-450) Mean Platelet Volume 5.6 FL (6.5-10.1) L Neutrophils (%) (Auto) % (45.0-75.0) Lymphocytes (%) (Auto) % (20.0-45.0) Monocytes (%) (Auto) % (1.0-10.0) Eosinophils (%) (Auto) % (0.0-3.0) Basophils (%) (Auto) % (0.0-2.0) Differential Total Cells Counted 100 Neutrophils % (Manual) 57 % (45-75) Lymphocytes % (Manual) 37 % (20-45) Monocytes % (Manual) 4 % (1-10) Eosinophils % (Manual) 2 % (0-3) Basophils % (Manual) 0 % (0-2) Band Neutrophils 0 % (0-8) Platelet Estimate Adequate Platelet Morphology Normal Anisocytosis 1+ Sodium Level 138 MMOL/L (136-145) Potassium Level 3.6 MMOL/L (3.5-5.1) Chloride Level 105 MMOL/L (98-107) Carbon Dioxide Level 26 MMOL/L (21-32) Anion Gap 7 mmol/L (5-15) Blood Urea Nitrogen 3 mg/dL (7-18) L Creatinine 0.4 MG/DL (0.55-1.30) L Estimat Glomerular Filtration Rate > 60 mL/min (>60) Glucose Level 87 MG/DL (74-106) Calcium Level 8.2 MG/DL (8.5-10.1) L Total Bilirubin 0.5 MG/DL (0.2-1.0) Aspartate Amino Transf (AST/SGOT) 16 U/L (15-37) Alanine Aminotransferase (ALT/SGPT) 9 U/L (12-78) L Alkaline Phosphatase 119 U/L (46-116) H Pro-B-Type Natriuretic Peptide 167.0 pg/mL (0-125) H Total Protein 6.0 G/DL (6.4-8.2) L Albumin 2.4 G/DL (3.4-5.0) L Globulin 3.6 g/dL Albumin/Globulin Ratio 0.7 (1.0-2.7) L Thyroid Stimulating Hormone (TSH) 0.109 uiU/mL (0.358-3.740) Free Thyroxine 0.73 NG/DL (0.76-1.46) L Impression/Recommendations Problems: (1) Anemia Status: stable Diagnostic Impression Chronic weakness, LE worse than UEs MRI spine noted, osteoma wo spine compression slplaminectomy COVID 19 pneumonia (febrile, tachycardic) Hx of Lymphoma cont medical support pain control PT as able Renny Bajwa MD Apr 21, 2020 21:58
--- NOTE | 2020-04-21 22:01 | Consultation ---
History of Present Illness General Date patient seen: Apr 20, 2020 Chief Complaint: Abnormal Labs Present Illness HPI 5F with PMhx of Non-Hodgkins Lymphoma (per patient) and recent admission for Sepsis 2' port infection presents following abnormal labs at SNF. Patient states that she was recently at OSH and treated for sepsis 2' port infection and is receiving antibiotics at SNF. She had a new diagnosis of lymphoma and is following by outside oncologist and last received chemo treatment in February 2020. Her sister called nursing staff and it was noted that her prior hb were in the range of 9-10g/dL. She states she is weaker. She has not had a colonoscopy in the past. Denies any vaginal bleeding, rectal bleeding, or dark/tarry bowel movements. She says it was noted that there is increasing burden of her lymphoma in her spine. pain remains severe in legs, remains in covid siolation Allergies: Coded Allergies: No Known Allergies (Unverified , 04/11/20) Medication History Scheduled Allopurinol* (Allopurinol*), 300 MG ORAL DAILY, (Reported) Baclofen* (Baclofen*), 10 MG ORAL THREE TIMES A DAY, (Reported) Cholecalciferol (Vitamin D3) (Vitamin D3*), 25 MCG PO DAILY, (Reported) Diltiazem Hcl* (Cardizem*), 30 MG PO QID, (Reported) Folic Acid* (Folic Acid*), 1 MG ORAL DAILY, (Reported) Hydrochlorothiazide* (Hydrochlorothiazide*), 25 MG ORAL DAILY, (Reported) Ibuprofen* (Motrin*), 600 MG ORAL FOUR TIMES A DAY, (Reported) Levofloxacin* (Levofloxacin*), 750 MG ORAL DAILY, (Reported) Pantoprazole* (Pantoprazole*), 40 MG ORAL DAILY, (Reported) Scheduled PRN Hydrocodone Bit/Acetaminophen 5-325* ([place] 5-325 Tablet*), 1 TAB ORAL Q4H PRN for For Pain, (Reported) Tramadol Hcl* (Ultram*), 300 MG ORAL Q6H PRN for For Pain, (Reported) Miscellaneous Medications Ipratropium/Albuterol Sulfate (Iprat-Albut 0.5-3(2.5) Mg/3 Ml), 3 ML IH, (Reported) Patient History Healthcare decision maker Resuscitation status Advanced Directive on File Physical Exam Last 24 Hour Vital Signs Date Time Temp Pulse Resp B/P (MAP) Pulse Ox O2 Delivery O2 Flow Rate FiO2 04/21/20 16:00 99.4 104 19 103/71 (82) 94 04/21/20 09:00 Nasal Cannula 1.0 04/21/20 08:00 98.9 104 21 105/67 (80) 96 04/21/20 04:00 98.9 99 20 111/58 (75) 97 04/21/20 00:00 98.8 108 18 109/66 (80) 100 Intake and Output 04/20/20 04/21/20 19:00 07:00 Intake Total 725.000 ml 885.000 ml Output Total 800 ml Balance 725.000 ml 85.000 ml IV Total 725.000 ml 885.000 ml Output Urine Total 800 ml # Voids 1 Laboratory Tests Test 04/21/20 05:00 White Blood Count 2.0 K/UL (4.8-10.8) *L Red Blood Count 2.99 M/UL (4.20-5.40) L Hemoglobin 8.0 G/DL (12.0-16.0) L Hematocrit 24.7 % (37.0-47.0) L Mean Corpuscular Volume 82 FL (80-99) Mean Corpuscular Hemoglobin 26.8 PG (27.0-31.0) L Mean Corpuscular Hemoglobin Concent 32.6 G/DL (32.0-36.0) Red Cell Distribution Width 18.1 % (11.6-14.8) H Platelet Count 377 K/UL (150-450) Mean Platelet Volume 5.6 FL (6.5-10.1) L Neutrophils (%) (Auto) % (45.0-75.0) Lymphocytes (%) (Auto) % (20.0-45.0) Monocytes (%) (Auto) % (1.0-10.0) Eosinophils (%) (Auto) % (0.0-3.0) Basophils (%) (Auto) % (0.0-2.0) Differential Total Cells Counted 100 Neutrophils % (Manual) 57 % (45-75) Lymphocytes % (Manual) 37 % (20-45) Monocytes % (Manual) 4 % (1-10) Eosinophils % (Manual) 2 % (0-3) Basophils % (Manual) 0 % (0-2) Band Neutrophils 0 % (0-8) Platelet Estimate Adequate Platelet Morphology Normal Anisocytosis 1+ Sodium Level 138 MMOL/L (136-145) Potassium Level 3.6 MMOL/L (3.5-5.1) Chloride Level 105 MMOL/L (98-107) Carbon Dioxide Level 26 MMOL/L (21-32) Anion Gap 7 mmol/L (5-15) Blood Urea Nitrogen 3 mg/dL (7-18) L Creatinine 0.4 MG/DL (0.55-1.30) L Estimat Glomerular Filtration Rate > 60 mL/min (>60) Glucose Level 87 MG/DL (74-106) Calcium Level 8.2 MG/DL (8.5-10.1) L Total Bilirubin 0.5 MG/DL (0.2-1.0) Aspartate Amino Transf (AST/SGOT) 16 U/L (15-37) Alanine Aminotransferase (ALT/SGPT) 9 U/L (12-78) L Alkaline Phosphatase 119 U/L (46-116) H Pro-B-Type Natriuretic Peptide 167.0 pg/mL (0-125) H Total Protein 6.0 G/DL (6.4-8.2) L Albumin 2.4 G/DL (3.4-5.0) L Globulin 3.6 g/dL Albumin/Globulin Ratio 0.7 (1.0-2.7) L Thyroid Stimulating Hormone (TSH) 0.109 uiU/mL (0.358-3.740) Free Thyroxine 0.73 NG/DL (0.76-1.46) L Height (Feet): 5 Height (Inches): 7.00 Weight (Pounds): 150 Medications Current Medications Medications (Trade) Dose Ordered Sig/Angelika Route PRN Reason Start Time Stop Time Status Last Admin Dose Admin Acetaminophen (Tylenol) 650 mg Q6H PRN ORAL Mild Pain (Pain Scale 1-3) 04/12/20 02:45 05/12/20 02:44 04/21/20 20:38 Acetaminophen (Tylenol) 650 mg Q6H PRN ORAL FEVER 04/12/20 16:30 05/12/20 16:29 04/19/20 15:43 Allopurinol (allopurinoL) 300 mg DAILY ORAL 04/12/20 09:00 05/12/20 08:59 04/21/20 09:25 Baclofen (Lioresal) 10 mg THREE TIMES A DAY ORAL 04/12/20 09:00 05/12/20 08:59 04/19/20 09:44 Chlorhexidine Gluconate (Christy-Hex 2%) 1 applic DAILY@2000 TOPIC 04/12/20 20:00 07/11/20 19:59 04/21/20 20:37 Dextrose/ Electrolytes 1,000 ml @ 50 mls/hr Q20H IV 04/14/20 12:00 05/14/20 11:59 04/20/20 14:07 Docusate Sodium (Colace) 100 mg TWICE A DAY ORAL 04/20/20 09:00 05/20/20 08:59 04/21/20 19:05 Enoxaparin Sodium (Lovenox) 40 mg DAILY SUBQ 04/18/20 10:00 07/17/20 09:59 Gadobutrol (Gadavist) 7.5 mmol NOW PRN IV Radiology Procedure 04/20/20 13:45 04/24/20 13:44 Gadobutrol (Gadavist) 7.5 mmol NOW PRN IV Radiology Procedure 04/20/20 13:45 04/24/20 13:44 Gadobutrol (Gadavist) 7.5 mmol NOW PRN IV Radiology Procedure 04/20/20 13:45 04/24/20 13:44 Iron Sucrose 100 mg/Sodium Chloride 60 ml @ 240 mls/hr BEDTIME IVPB 04/18/20 21:00 04/22/20 21:14 04/21/20 20:37 Lactulose (Cephulac) 20 gm THREE TIMES A DAY ORAL 04/21/20 13:00 05/21/20 12:59 04/21/20 19:05 Lorazepam (Ativan 2mg/ml 1ml) 0.5 mg DAILYPRN PRN IV x1dose for anxiety in MRI 04/20/20 13:30 04/27/20 13:29 Morphine Sulfate (Morphine Sulfate) 1 mg Q3H PRN IVP Moderate Pain (Pain Scale 4-6) 04/19/20 06:15 04/26/20 06:14 Morphine Sulfate (Morphine Sulfate) 2 mg Q3H PRN IVP Severe Pain (Pain Scale 7-10) 04/19/20 06:15 04/26/20 06:14 04/21/20 20:37 Ondansetron HCl (Zofran) 4 mg Q6H PRN IVP Nausea & Vomiting 04/19/20 13:30 05/19/20 13:29 Polyethylene Glycol (Miralax) 17 gm DAILY ORAL 04/20/20 09:00 05/20/20 08:59 Vancomycin HCl (Vanco pharmacy to dose) 1 ea DAILY PRN MISC Per rx protocol 04/12/20 04:15 05/12/20 04:14 Vancomycin HCl 1 gm/Dextrose 275 ml @ 183.708 mls/hr Q12HR@1100,2300 IVPB 04/17/20 23:00 04/25/20 23:59 04/21/20 11:39 Assessment/Plan Problem List: (1) Anemia ICD Codes: D64.9 - Anemia, unspecified SNOMED: [id number] Qualifiers: Qualified Codes: D64.9 - Anemia, unspecified Assessment/Plan: Chronic weakness, LE worse than UEs sp laminectomy COVID 19 pneumonia (febrile, tachycardic) Hx of Lymphoma mri spine cont medical support pain control PT as able Renny Bajwa MD Apr 21, 2020 22:01
[2020-04-22] VITALS: BP 99/72
[2020-04-22] MEDS: Morphine Sulfate 2mg/ml Inj(IV/IM USE ONLY) IVP PRN ×7 (00:01→23:56)
[2020-04-22 04:00] VITALS: BP 100/68
[2020-04-22 07:24] LABS: BASOPHILS % (AUTO) 1.3 % (0.0-2.0); EOSINOPHILS % (AUTO) 2.9 % (0.0-3.0); HEMOGLOBIN 8.2 G/DL (12.0-16.0); MEAN CORPUSCULAR VOLUME 84 FL (80-99); MONOCYTES % (AUTO) 6.3 % (1.0-10.0); NEUTROPHILS % (AUTO) 73.5 % (45.0-75.0); PLATELET COUNT 357 K/UL (150-450); RED CELL DISTRIBUTION WIDTH 17.8 % (11.6-14.8); WHITE BLOOD COUNT 4.6 K/UL (4.8-10.8)
--- NOTE | 2020-04-22 07:44 | NUR ---
NURSE HAND-OFF: Important Events on Shift:[pain medication given PRN] Patient Status: stable Diet: regular Pending Orders: na Pending Results/Labs:na Pending MD notification:na Latest Vital Signs: Temperature 98.9 , Pulse 100 , B/P 100 /68 , Respiratory Rate 18 , O2 SAT 96 , Nasal Cannula, O2 Flow Rate 1.0 . Vital Sign Comment: stable Latest [place] Fall Score: 35 Fall Risk: Medium Risk Safety Measures: Call light Within Reach, Bed Alarm Zone 1, Side Rails Side Rails x2, Bed position Low and Locked. Fall Precautions: Door Sign Patient Fall Education Report given to REA Keyes.
[2020-04-22 07:59] LABS: ALANINE AMINOTRANSFERASE 10 U/L (12-78); ALBUMIN 2.5 G/DL (3.4-5.0); ALBUMIN/GLOBULIN RATIO 0.7 (1.0-2.7); ALKALINE PHOSPHATASE 121 U/L (46-116); ANION GAP 7 mmol/L (5-15); ASPARTATE AMINO TRANSFERASE 17 U/L (15-37); BILIRUBIN,TOTAL 0.6 MG/DL (0.2-1.0); BLOOD UREA NITROGEN 2 mg/dL (7-18); CALCIUM 8.4 MG/DL (8.5-10.1); CARBON DIOXIDE 25 MMOL/L (21-32); CHLORIDE 106 MMOL/L (98-107); CREATININE 0.4 MG/DL (0.55-1.30); POTASSIUM 3.6 MMOL/L (3.5-5.1); SODIUM 138 MMOL/L (136-145)
[2020-04-22 08:00] VITALS: BP 126/76
--- NOTE | 2020-04-22 08:00 | NUR ---
NURSE NOTES: Received pt from REA Cole. pt was resting no acute distress. call light w/in reach.
[2020-04-22] MEDS: Lactulose 20gm/30ml UDC ORAL SCH ×4 (09:00→17:41)
[2020-04-22] MEDS: Miralax 17gm pkt ORAL SCH ×2 (09:00→09:07)
[2020-04-22] MEDS: Docusate 100mg cap ORAL SCH ×3 (09:00→17:41)
[2020-04-22] MEDS: Enoxaparin 40mg Inj SUBQ SCH (09:06)
--- NOTE | 2020-04-22 09:48 | Pulmonology Progress Note ---
Subjective ROS Limited/Unobtainable: No Interval Events: none new reported per nursing Constitutional: Reports: fever, fatigue HEENT: Repors: no symptoms; Denies: visual change, discharge Respiratory: Reports: no symptoms, dry cough - intermittent dry cough; Denies: shortness of breath, wheezing Cardiovascular: Reports: no symptoms Gastrointestinal/Abdominal: Denies: nausea, vomiting Psychiatric: Denies: depression Skin: Denies: rash Musculoskeletal: Denies: pain Allergies: Coded Allergies: No Known Allergies (Unverified , 04/11/20) Objective Last 24 Hour Vital Signs Date Time Temp Pulse Resp B/P (MAP) Pulse Ox O2 Delivery O2 Flow Rate FiO2 04/22/20 04:00 98.9 100 18 100/68 (79) 96 04/22/20 00:00 98.9 114 20 99/72 (81) 97 04/21/20 21:08 98.9 04/21/20 21:00 Nasal Cannula 1.0 04/21/20 20:31 97 Nasal Cannula 2.0 28 04/21/20 20:00 100.6 118 20 112/71 (85) 97 04/21/20 16:00 99.4 104 19 103/71 (82) 94 Intake and Output 04/21/20 04/22/20 19:00 07:00 Intake Total 350 ml 1035.000 ml Output Total 700 ml Balance 350 ml 335.000 ml Intake Oral 400 ml IV Total 350 ml 635.000 ml Output Urine Total 700 ml # Voids 1 Objective 04/22 saturating well on and off 1 lpm NC 04/21 no change 04/20 pt saturating well on 2 lpm NC; NAD 04/19 pt saturating well on 2 lpm NC; NAD 04/18 pt saturating well on 2 lpm NC General Appearance: WD/WN, no acute distress HEENT: normocephalic, atraumatic Respiratory: lungs clear Cardiovascular: normal rate, regular rhythm Abdomen: soft, non tender Genitourinary: other - Morales Extremities: no edema Laboratory Tests 04/22/20 04:40: White Blood Count 4.6#L, Red Blood Count 3.10L, Hemoglobin 8.2L, Hematocrit 26.0L, Mean Corpuscular Volume 84, Mean Corpuscular Hemoglobin 26.6L, Mean Corpuscular Hemoglobin Concent 31.7L, Red Cell Distribution Width 17.8H, Platelet Count 357, Mean Platelet Volume 5.1L, Neutrophils (%) (Auto) 73.5, Lymphocytes (%) (Auto) 16.0L, Monocytes (%) (Auto) 6.3, Eosinophils (%) (Auto) 2.9, Basophils (%) (Auto) 1.3, Sodium Level 138, Potassium Level 3.6, Chloride Level 106, Carbon Dioxide Level 25, Anion Gap 7, Blood Urea Nitrogen 2L, Creatinine 0.4L, Estimat Glomerular Filtration Rate > 60, Glucose Level 79, Calcium Level 8.4L, Total Bilirubin 0.6, Aspartate Amino Transf (AST/SGOT) 17, Alanine Aminotransferase (ALT/SGPT) 10L, Alkaline Phosphatase 121H, Total Protein 6.2L, Albumin 2.5L, Globulin 3.7, Albumin/Globulin Ratio 0.7L Current Medications Medications (Trade) Dose Ordered Sig/Angelika Route PRN Reason Start Time Stop Time Status Last Admin Dose Admin Acetaminophen (Tylenol) 650 mg Q6H PRN ORAL Mild Pain (Pain Scale 1-3) 04/12/20 02:45 05/12/20 02:44 04/21/20 20:38 Acetaminophen (Tylenol) 650 mg Q6H PRN ORAL FEVER 04/12/20 16:30 05/12/20 16:29 04/19/20 15:43 Allopurinol (allopurinoL) 300 mg DAILY ORAL 04/12/20 09:00 05/12/20 08:59 04/22/20 09:06 Baclofen (Lioresal) 10 mg THREE TIMES A DAY ORAL 04/12/20 09:00 05/12/20 08:59 04/22/20 09:07 Chlorhexidine Gluconate (Christy-Hex 2%) 1 applic DAILY@2000 TOPIC 04/12/20 20:00 07/11/20 19:59 04/21/20 20:37 Dextrose/ Electrolytes 1,000 ml @ 50 mls/hr Q20H IV 04/14/20 12:00 05/14/20 11:59 04/21/20 23:08 Docusate Sodium (Colace) 100 mg TWICE A DAY ORAL 04/20/20 09:00 05/20/20 08:59 04/22/20 09:05 Enoxaparin Sodium (Lovenox) 40 mg DAILY SUBQ 04/18/20 10:00 07/17/20 09:59 04/22/20 09:06 Gadobutrol (Gadavist) 7.5 mmol NOW PRN IV Radiology Procedure 04/20/20 13:45 04/24/20 13:44 Gadobutrol (Gadavist) 7.5 mmol NOW PRN IV Radiology Procedure 04/20/20 13:45 04/24/20 13:44 Gadobutrol (Gadavist) 7.5 mmol NOW PRN IV Radiology Procedure 04/20/20 13:45 04/24/20 13:44 Iron Sucrose 100 mg/Sodium Chloride 60 ml @ 240 mls/hr BEDTIME IVPB 04/18/20 21:00 04/22/20 21:14 04/21/20 20:37 Lactulose (Cephulac) 20 gm THREE TIMES A DAY ORAL 04/21/20 13:00 05/21/20 12:59 04/21/20 19:05 Lorazepam (Ativan 2mg/ml 1ml) 0.5 mg DAILYPRN PRN IV x1dose for anxiety in MRI 04/20/20 13:30 04/27/20 13:29 Morphine Sulfate (Morphine Sulfate) 1 mg Q3H PRN IVP Moderate Pain (Pain Scale 4-6) 04/19/20 06:15 04/26/20 06:14 Morphine Sulfate (Morphine Sulfate) 2 mg Q3H PRN IVP Severe Pain (Pain Scale 7-10) 04/19/20 06:15 04/26/20 06:14 04/22/20 09:29 Ondansetron HCl (Zofran) 4 mg Q6H PRN IVP Nausea & Vomiting 04/19/20 13:30 05/19/20 13:29 Polyethylene Glycol (Miralax) 17 gm DAILY ORAL 04/20/20 09:00 05/20/20 08:59 Vancomycin HCl (Vanco pharmacy to dose) 1 ea DAILY PRN MISC Per rx protocol 04/12/20 04:15 05/12/20 04:14 Vancomycin HCl 1 gm/Dextrose 275 ml @ 183.708 mls/hr Q12HR@1100,2300 IVPB 04/17/20 23:00 04/25/20 23:59 04/21/20 23:08 Assessment/Plan Assessment/Plan 1. COVID-19 positivity. - no indication for any steroid or remdesivir given her normoxemia at this time - Antibiotics per ID - s/p cefepime - CXR with diffuse non-specific inflammatory/infectious process - cont supplemental oxygen as needed - CT A/P/C - no obvious pna or abscess, cultures negative 2. Immunocompromised state with history of non-Hodgkin lymphoma. - on chemo - h/o port line infection; on Vanco until 04/25/2020 per pt 3. Hx of fever. 4. Hx of Hypertension. 5. Gout. 6. Anemia DVT ppx - on SCD, lovenox We will follow. The care for this patient was discussed with my supervising physician Time spent for this case was approximately 31 minutes Joaquín Simons Apr 22, 2020 09:48
[2020-04-22] MEDS ORDERED: Sennosides 8.6mg tab ORAL ONE (11:00)
[2020-04-22] MEDS ORDERED: HYDROcodone/Acetamin 5/325 tab ORAL PRN (11:00)
[2020-04-22 12:00] VITALS: BP 130/62
[2020-04-22] MEDS: Vancomycin 1 GM in D5W 275 ML IVPB SCH ×2 (12:03→23:00)
--- NOTE | 2020-04-22 15:46 | NUR ---
NURSE NOTES: pt refused D/C Morales cath. explain risk for infection but pt still doesn't remove F/C. reported Dr. Murillo. also her EKG report Sinus tachycardia and QT/QTC result.
--- NOTE | 2020-04-22 15:47 | Neurology Progress Note ---
Interim History Interim History ROS Limited/Unobtainable: No Interim History remains in severe pain 02/11 limiting movement Objective Physical Exam Last Vital Signs Date Time Temp Pulse Resp B/P (MAP) Pulse Ox O2 Delivery O2 Flow Rate FiO2 04/22/20 12:00 97.1 76 20 130/62 (84) 97 04/22/20 09:00 Nasal Cannula 1.0 04/22/20 07:33 24 Laboratory Tests Test 04/22/20 04:40 White Blood Count 4.6 K/UL (4.8-10.8) #L Red Blood Count 3.10 M/UL (4.20-5.40) L Hemoglobin 8.2 G/DL (12.0-16.0) L Hematocrit 26.0 % (37.0-47.0) L Mean Corpuscular Volume 84 FL (80-99) Mean Corpuscular Hemoglobin 26.6 PG (27.0-31.0) L Mean Corpuscular Hemoglobin Concent 31.7 G/DL (32.0-36.0) L Red Cell Distribution Width 17.8 % (11.6-14.8) H Platelet Count 357 K/UL (150-450) Mean Platelet Volume 5.1 FL (6.5-10.1) L Neutrophils (%) (Auto) 73.5 % (45.0-75.0) Lymphocytes (%) (Auto) 16.0 % (20.0-45.0) L Monocytes (%) (Auto) 6.3 % (1.0-10.0) Eosinophils (%) (Auto) 2.9 % (0.0-3.0) Basophils (%) (Auto) 1.3 % (0.0-2.0) Sodium Level 138 MMOL/L (136-145) Potassium Level 3.6 MMOL/L (3.5-5.1) Chloride Level 106 MMOL/L (98-107) Carbon Dioxide Level 25 MMOL/L (21-32) Anion Gap 7 mmol/L (5-15) Blood Urea Nitrogen 2 mg/dL (7-18) L Creatinine 0.4 MG/DL (0.55-1.30) L Estimat Glomerular Filtration Rate > 60 mL/min (>60) Glucose Level 79 MG/DL (74-106) Calcium Level 8.4 MG/DL (8.5-10.1) L Total Bilirubin 0.6 MG/DL (0.2-1.0) Aspartate Amino Transf (AST/SGOT) 17 U/L (15-37) Alanine Aminotransferase (ALT/SGPT) 10 U/L (12-78) L Alkaline Phosphatase 121 U/L (46-116) H Total Protein 6.2 G/DL (6.4-8.2) L Albumin 2.5 G/DL (3.4-5.0) L Globulin 3.7 g/dL Albumin/Globulin Ratio 0.7 (1.0-2.7) L Thyroid Stimulating Hormone (TSH) 0.249 uiU/mL (0.358-3.740) Free Thyroxine 0.76 NG/DL (0.76-1.46) Free Triiodothyronine 1.6 pg/mL (2.3-4.2) L Follicle Stimulating Hormone Pending Impression/Recommendations Problems: (1) Anemia Status: stable Diagnostic Impression Chronic weakness, LE worse than UEs MRI spine noted, osteoma wo spine compression slplaminectomy COVID 19 pneumonia (febrile, tachycardic) Hx of Lymphoma cont medical support pain control PT as able Renny Bajwa MD Apr 22, 2020 15:46
[2020-04-22 16:00] VITALS: BP 119/75
--- NOTE | 2020-04-22 16:15 | Consultation ---
DATE OF CONSULTATION: 04/22/2020 ENDOCRINOLOGY CONSULTATION CONSULTING PHYSICIAN: Ken Fermin MD REFERRING PHYSICIAN: Jus Cotton DO REASON FOR CONSULTATION: Rule out thyroid disease. HISTORY OF PRESENT ILLNESS: The patient is a 55-year-old female with history of non-Hodgkin's lymphoma, admitted to the hospital with anemia, and was evaluated and treated. Also, the patient was noted to be generally weak. She was tested positive for COVID-19 and is being treated for that. The patient was noted to have a low TSH and low free T4. Possibility of central hypothyroidism was raised. Therefore, Endocrinology was consulted. PAST MEDICAL HISTORY: 1. Lymphoma. 2. Hypertension. 3. Gout. CURRENT MEDICATIONS: Reviewed and reconciled. ALLERGIES TO MEDICATIONS: None. REVIEW OF SYSTEMS: As per HPI. PHYSICAL EXAMINATION: Deferred to COVID-19 isolation. LABORATORY VALUES: Sodium 138, potassium 3.6, chloride 106, bicarb 25, BUN 2, creatinine 0.4, glucose of 79. TSH 0.1, T4 is 0.7. DIAGNOSES: 1. Low TSH, low free T4. Rule out central hypothyroidism. 2. COVID pneumonia. 3. History of lymphoma. 4. Generalized weakness. PLAN: The possibility of central hypothyroidism is extremely low, but I expect her FSH to not be elevated if the etiology of hypothyroidism is central. We will check an FSH level and if FSH is low, then an MRI of the pituitary gland will be warranted. If the FSH is elevated, then the possibility of pituitary disease will be very minimal. We will repeat TSH and free T4 along with free T3, in order to have a repeat value, but most likely, this picture represents sick euthyroid or abnormal thyroid function due to non-thyroidal illness. I will follow the results and further advise. Thank you Dr. Jus Cotton for the courtesy of this consultation. Ken Fermin M.D. DR: Keke JOB#: [id number] CC: ROXANNE
--- NOTE | 2020-04-22 17:29 | Cardiac Electrophysiology PN ---
Assessment/Plan Assessment/Plan 1. Sinus tachycardia due to sepsis and COVID. Can not use beta-domenico as blood pressure is 100/70. 2. COVID pneumonia. 3. Hypokalemia. 4. Hypomagnesemia. 5. History of non-Hodgkin lymphoma. Subjective Subjective No events in Covid isolation. On 1 liter NC Objective Last 24 Hour Vital Signs Date Time Temp Pulse Resp B/P (MAP) Pulse Ox O2 Delivery O2 Flow Rate FiO2 04/22/20 12:00 97.1 76 20 130/62 (84) 97 04/22/20 09:00 Nasal Cannula 1.0 04/22/20 08:00 98.0 72 20 126/76 (93) 99 04/22/20 07:33 97 Nasal Cannula 1.0 24 04/22/20 04:00 98.9 100 18 100/68 (79) 96 04/22/20 00:00 98.9 114 20 99/72 (81) 97 04/21/20 21:08 98.9 04/21/20 21:00 Nasal Cannula 1.0 04/21/20 20:31 97 Nasal Cannula 2.0 28 04/21/20 20:00 100.6 118 20 112/71 (85) 97 Intake and Output 04/21/20 04/22/20 19:00 07:00 Intake Total 350 ml 1035.000 ml Output Total 700 ml Balance 350 ml 335.000 ml Intake Oral 400 ml IV Total 350 ml 635.000 ml Output Urine Total 700 ml # Voids 1 Laboratory Tests Test 04/22/20 04:40 White Blood Count 4.6 K/UL (4.8-10.8) #L Red Blood Count 3.10 M/UL (4.20-5.40) L Hemoglobin 8.2 G/DL (12.0-16.0) L Hematocrit 26.0 % (37.0-47.0) L Mean Corpuscular Volume 84 FL (80-99) Mean Corpuscular Hemoglobin 26.6 PG (27.0-31.0) L Mean Corpuscular Hemoglobin Concent 31.7 G/DL (32.0-36.0) L Red Cell Distribution Width 17.8 % (11.6-14.8) H Platelet Count 357 K/UL (150-450) Mean Platelet Volume 5.1 FL (6.5-10.1) L Neutrophils (%) (Auto) 73.5 % (45.0-75.0) Lymphocytes (%) (Auto) 16.0 % (20.0-45.0) L Monocytes (%) (Auto) 6.3 % (1.0-10.0) Eosinophils (%) (Auto) 2.9 % (0.0-3.0) Basophils (%) (Auto) 1.3 % (0.0-2.0) Sodium Level 138 MMOL/L (136-145) Potassium Level 3.6 MMOL/L (3.5-5.1) Chloride Level 106 MMOL/L (98-107) Carbon Dioxide Level 25 MMOL/L (21-32) Anion Gap 7 mmol/L (5-15) Blood Urea Nitrogen 2 mg/dL (7-18) L Creatinine 0.4 MG/DL (0.55-1.30) L Estimat Glomerular Filtration Rate > 60 mL/min (>60) Glucose Level 79 MG/DL (74-106) Calcium Level 8.4 MG/DL (8.5-10.1) L Total Bilirubin 0.6 MG/DL (0.2-1.0) Aspartate Amino Transf (AST/SGOT) 17 U/L (15-37) Alanine Aminotransferase (ALT/SGPT) 10 U/L (12-78) L Alkaline Phosphatase 121 U/L (46-116) H Total Protein 6.2 G/DL (6.4-8.2) L Albumin 2.5 G/DL (3.4-5.0) L Globulin 3.7 g/dL Albumin/Globulin Ratio 0.7 (1.0-2.7) L Thyroid Stimulating Hormone (TSH) 0.249 uiU/mL (0.358-3.740) Free Thyroxine 0.76 NG/DL (0.76-1.46) Free Triiodothyronine 1.6 pg/mL (2.3-4.2) L Follicle Stimulating Hormone Pending Objective HEAD AND NECK: No JVD. LUNGS: Coarse rhonchi. CARDIOVASCULAR: Regular S1 and S2 with no gallop or murmur. ABDOMEN: Soft. EXTREMITIES: No pitting edema. Ehsan Wan MD Apr 22, 2020 17:29
--- NOTE | 2020-04-22 19:36 | NUR ---
HAND-OFF: Report given to REA Bhat. pt is stable condition.
[2020-04-22 20:00] VITALS: BP 115/71
--- NOTE | 2020-04-22 20:00 | General Progress Note ---
Subjective Allergies: Coded Allergies: No Known Allergies (Unverified , 04/11/20) Subjective No acute events overnight per nursing. Patient feels better. Still with intermittent mid thoracic/lumbar back pain. No neck pain. Tmax 100.6. Complaining of significant back pain. Also refusing certain laxatives for bowel regimen. Still on 1 to 2 L of nasal cannula. No cough, SOB. No other complaints. Review of systems: Constitutional: Denies: chills, diaphoresis, malaise, weakness, + fever intermittent HEENT: Denies: eye pain, blurred vision, double vision, ear pain, nose pain, throat pain, Cardiovascular: Denies: chest pain, edema, lightheadedness, palpitations Respiratory: SEe HPI Gastrointestinal/Abdominal: Denies: abdominal pain, black stools, blood in stool, constipation, diarrhea, nausea, poor fluid intake vomiting, other Genitourinary: Denies: burning, discharge, frequency, Neurologic/Psychiatric: Denies: headache, numbness, paresthesia, new weakness, other Endocrine: Denies: excessive sweating, flushing, intolerance to cold, MSK: denies joint pains, swelling, stiffness +back pain Hematologic/Lymphatic: Denies: anemia, easy bleeding, easy bruising, Objective Last 24 Hour Vital Signs Date Time Temp Pulse Resp B/P (MAP) Pulse Ox O2 Delivery O2 Flow Rate FiO2 04/22/20 16:00 97.3 76 20 119/75 (90) 97 04/22/20 12:00 97.1 76 20 130/62 (84) 97 04/22/20 09:00 Nasal Cannula 1.0 04/22/20 08:00 98.0 72 20 126/76 (93) 99 04/22/20 07:33 97 Nasal Cannula 1.0 24 04/22/20 04:00 98.9 100 18 100/68 (79) 96 04/22/20 00:00 98.9 114 20 99/72 (81) 97 04/21/20 21:08 98.9 04/21/20 21:00 Nasal Cannula 1.0 04/21/20 20:31 97 Nasal Cannula 2.0 28 04/21/20 20:00 100.6 118 20 112/71 (85) 97 Intake and Output 04/21/20 04/22/20 19:00 07:00 Intake Total 350 ml 1035.000 ml Output Total 700 ml Balance 350 ml 335.000 ml Intake Oral 400 ml IV Total 350 ml 635.000 ml Output Urine Total 700 ml # Voids 1 Laboratory Tests 04/22/20 04:40: White Blood Count 4.6#L, Red Blood Count 3.10L, Hemoglobin 8.2L, Hematocrit 26.0L, Mean Corpuscular Volume 84, Mean Corpuscular Hemoglobin 26.6L, Mean Corpuscular Hemoglobin Concent 31.7L, Red Cell Distribution Width 17.8H, Platelet Count 357, Mean Platelet Volume 5.1L, Neutrophils (%) (Auto) 73.5, Lymphocytes (%) (Auto) 16.0L, Monocytes (%) (Auto) 6.3, Eosinophils (%) (Auto) 2.9, Basophils (%) (Auto) 1.3, Sodium Level 138, Potassium Level 3.6, Chloride Level 106, Carbon Dioxide Level 25, Anion Gap 7, Blood Urea Nitrogen 2L, Creatinine 0.4L, Estimat Glomerular Filtration Rate > 60, Glucose Level 79, Calcium Level 8.4L, Total Bilirubin 0.6, Aspartate Amino Transf (AST/SGOT) 17, Alanine Aminotransferase (ALT/SGPT) 10L, Alkaline Phosphatase 121H, Total Protein 6.2L, Albumin 2.5L, Globulin 3.7, Albumin/Globulin Ratio 0.7L, Thyroid Stimulating Hormone (TSH) 0.249L, Free Thyroxine 0.76, Free Triiodothyronine 1.6L, Follicle Stimulating Hormone [Pending] Height (Feet): 5 Height (Inches): 7.00 Weight (Pounds): 150 Objective General: WDWN female in NAD, A&O x 4 HEENT: Normocephalic cephalic atraumatic, pupils equal round reactive to light and accommodation, nares patent and no symmetrical, no tonsillar exudates, mucous membranes moist CV: Regular rate regular rhythm, no murmurs, rubs, or gallops + POrt site is C/d/i. Pulm: Lungs clear to auscultation bilaterally. No wheezes, rhonchi, or rales GI: Soft, nontender, nondistended, bowel sounds present + eaton in place, no suprapubic TTP Neuro: CN 2-12 intact bilaterally, no focal signs. Moving all extremities Ext: No lower extremity edema bilaterally Skin: no rashes lesions or ulcers Msk: Joints symmetrical in upper extremity and lower extremity bilaterally, no joint swelling. + left hip pain (slightly) + mid thoracic spinal back pain Lymph: No lymphadenopathy in upper extremity and lower extremity Assessment/Plan Status: stable Assessment/Plan: #Hx of Sepsis 2' port infection #Sepsis due to COVID 19 pneumonia (febrile, tachycardic) #COVID 19+ #Continued fever of unknown origin. COVID vs. cancer related? - CTM Fever curve. Could be due to underlying malignancy - Repeat Blood cultures NGTD - Repeat UA: negative - Repeat CXR: Bronchial thickening - Check CT C/A/P including CT angio to eval for PE. : reviewed. No PE. No obvious infection. Incidental left hip fracture - IV fluids - D/W ID. - Port has been removed at [facility] - ngtd - Cefepime (04/14 - 04/15) - Per patient she is to continue on Vancomycin till 04/25 - ID Consult, appreciate recs - MRI C/T/L spine w/wo contrast to eval for abscess: No sign of infection, abscess or osteo #L3 lesion on MRI: bone infarct vs. osteoid osteoma vs. less likely infection #Chronic LE weakness #s/p Laminectomy earlier in the year #Chronic Back pain > d/w radiology Dr. Hedrick - d/w ID, Neuro - outpatient f/u with spine surgeon: Dr. Nino in [facility] - appreciate neurology consult: Dr. Bajwa - PT when able - [place] 5/10 Q6hr PRN moderate to severe and IV Morphine for BTP #Hypothyroidism, suspect central given TSH and T4 both low - endocrinology consulted: Dr. Fermin to see #left hip fracture, suspect chronic > Patient states she fell 5 months ago but no recent falls. Also had hard fall on coccyx in 2018. Minimal pain in left hip - appreciate ortho eval: Dr. Payan. Given patient bed bound risks > benefits. Outpatient consideration - pain management #Hx of Lymphoma #leukopenia improving > S/p mets to spine s/p surgery earlier this year and XRT/Chemo > Last chemo in February 2020 - All information per patient - Oncology following, appreciate recs - Can continue current therapy with outpatient onc - No acute interventions needed inpatient - Neupogen x 1 04/21 #Acute blood loss anemia - resolving #anemia of chronic disease #Normocytic anemia Patient presented with Hb 6.7 with normal MCV. History of lymphoma per patient and is receiving chemo tx, last known to be February 2020. - 2U PRBCs ordered and transfused on admission - Hb Stable - Rectic count wnl, Iron and Iron sat low, Ferritin wnl - No active signs of bleeding - Hematology consulted, appreciate recs - CTM for signs of bleeding - Patient will need colonoscopy as outpatient in the future : Gi Consulted; Dr. Carter #sinus tachycardia, due to COVID pna - monitor EKG - Cardiology consulted: Dr. Wan #proctitis #Constipation- > improving - Aggressive bowel regimen - GI aware: Appreciate recommendations - Colace, miralax, - s/p enema and ducolax with improvement #chronic urinary retention - since patient had spine surgery earlier in the year - unsure if has true urinary retention - d/w nephrology -> voiding trial, however patient refused. #Hypokalemia #hypomagnesia - Lytes replaced - appreciate nephro management FENPPX DVTPPX: lovenox Fluids: per nephro Diet: regular Lines: PIV PT/OT: pending Code status:Full Dispo: back to SNF Reason for Continued Hospitalization: hypoxia, fever Dispo - Discharge back to SNF. MIPS (Merit-based Incentive Payment System) Applicable CPT: 22477, 71467 CHECK ALL THAT ARE MET: [] Measure #5 (CHF): All ages. Prescribe LINDSAY/ARB upon discharge for patients with left ventricular systolic dysfunction. If not, the reason is clearly documented in the medical chart [] Measure #8 (CHF): All ages. Prescribe a beta domenico upon discharge for patients with left ventricular systolic dysfunction. If not, the reason is clearly documented in the medical chart. [x] Measure #47: Advance care plan or surrogate decision maker documented in the medical record. [x] Measure #130 The provider has documented, updated, or reviewed the patients current medication list and has documented it in the patients note. [] Measure #374 (All): Send report to referring provider. [] Measure #407(Sepsis due to MSSA bacteremia): Age 18+ Patient treated with a beta-lactam antibiotic (Nafcillin, Oxacillin or Cefazolin) as definitive th erapy. MEDICAL COMPLEXITYHigh complexity medical decision making (need 2/3 categories)Problem - need 4 points [x]Acute/new problem with new plan for workup (4 points, 1 max) [] Acute/new problem without additional workup (3 points, 1 max) [] Unstable chronic problem actively being managed (2 point each, 2 max) [x] Stable chronic problem actively being managed (1 point each, 2 max) [x] Self-limited/transient process (constipation, muscle ache, etc) (1 point each, 2 max) Data - need 4 points [x] Reviewed labs/imaging studies (1 points, 2 max) [x] Independent review of imaging (EKG, xrays, etc) (2 points, 2 max) [x] Discussed case with consult/other MD/RN (2 points, 2 max) High Risk - qualify if have one of the following: [x] Severe exacerbation of acute problem, acute mental status change, IV narcotics, monitoring drug levels (vancomycin, INR, tacrolimus etc) I spent 38 minutes on this patient's case, and 20 mins was dedicated to counseling and/or care coordination. Discussed with nephrology, neurologym [email or web address] Time of note may not reflect time of encounter Jus Brunner D.O. Apr 22, 2020 20:00
--- NOTE | 2020-04-22 20:06 | NUR ---
NURSE NOTES: Patient in bed, awake, alert and verbally responsive. Able to make needs known. Respiration is even and unlabored, on nasal. No complaint of pain or discomfort noted at this time. Skin is warm and dry to touch. Abdomen is soft and non distended. Picc line noted, iv fluid is infusing as ordered. Will continue plan of care. call light is at bedside. Will continue plan of care.
[2020-04-22] MEDS: Iron Sucrose 100 MG in NS 55 ML IVPB SCH (21:10)
[2020-04-22] MEDS: Dyna-Hex 2% Top Sol 2oz TOPIC SCH (21:12)
--- NOTE | 2020-04-22 21:30 | NUR ---
NURSE NOTES: Patient was given PRn pain mediation, pain level 10/10, will reassess patient. Patient is alert x 4.
[2020-04-23] VITALS: BP 125/83
--- NOTE | 2020-04-23 00:04 | NUR ---
NURSE NOTES: Complained of abdominal pain 10/10 given PRN pain medication as ordered. Will continue plan of care. Will reassess patient.
[2020-04-23] MEDS: Morphine Sulfate 2mg/ml Inj(IV/IM USE ONLY) IVP PRN ×3 (03:27→21:15)
[2020-04-23 04:00] VITALS: BP 122/76
--- NOTE | 2020-04-23 07:24 | NUR ---
NURSE HAND-OFF: Important Events on Shift:Pain meds Patient Status: Diet: Reg Pending Orders: Labs Pending Results/Labs: Pending MD notification: Latest Vital Signs: Temperature 97.7 , Pulse 107 , B/P 122 /76 , Respiratory Rate 20 , O2 SAT 96 , Nasal Cannula, O2 Flow Rate 1.0 . Vital Sign Comment: WNL Latest [place] Fall Score: 35 Fall Risk: Medium Risk Safety Measures: Call light Within Reach, Bed Alarm Zone 1, Side Rails Side Rails x2, Bed position Low and Locked. Fall Precautions: Door Sign Patient Fall Education Report given to REA Max.
--- NOTE | 2020-04-23 07:30 | NUR ---
NURSE NOTES: Patient is in bed awake and able to verbalize needs. Stable. C/o constant pain, pain medication schedule discussed with patient. Patient instructed to use call light for assistance, verbalized understanding. All safety measures provided. Patient in bed in locked and lowest position with call light within reach. WIll continue to monitor.
[2020-04-23 07:55] LABS: BASOPHILS % (AUTO) 1.6 % (0.0-2.0); EOSINOPHILS % (AUTO) 1.3 % (0.0-3.0); HEMATOCRIT 24.6 % (37.0-47.0); HEMOGLOBIN 8.3 G/DL (12.0-16.0); LYMPHOCYTES % (AUTO) 14.1 % (20.0-45.0); MEAN CORPUSCULAR VOLUME 80 FL (80-99); PLATELET COUNT 367 K/UL (150-450); RED BLOOD COUNT 3.06 M/UL (4.20-5.40); RED CELL DISTRIBUTION WIDTH 18.4 % (11.6-14.8); WHITE BLOOD COUNT 4.6 K/UL (4.8-10.8)
[2020-04-23 08:00] VITALS: BP 121/71
[2020-04-23 08:15] LABS: ALANINE AMINOTRANSFERASE 9 U/L (12-78); ALBUMIN 2.5 G/DL (3.4-5.0); ALBUMIN/GLOBULIN RATIO 0.7 (1.0-2.7); ANION GAP 9 mmol/L (5-15); ASPARTATE AMINO TRANSFERASE 20 U/L (15-37); BILIRUBIN,TOTAL 0.5 MG/DL (0.2-1.0); BLOOD UREA NITROGEN 5 mg/dL (7-18); CALCIUM 8.3 MG/DL (8.5-10.1); CARBON DIOXIDE 24 MMOL/L (21-32); CHLORIDE 106 MMOL/L (98-107); CREATININE 1.1 MG/DL (0.55-1.30); POTASSIUM 3.7 MMOL/L (3.5-5.1); SODIUM 139 MMOL/L (136-145)
[2020-04-23 08:43] LABS: ALKALINE PHOSPHATASE 121 U/L (46-116)
--- NOTE | 2020-04-23 09:02 | Hematology/Onc Progress Note ---
Assessment/Plan Assessment/Plan # Leukopenia COVID19++++++++++ --> hep and hiv order as needed --> wbc 4-->3-->2.9->2->4.6 --> Neupogen 300 x1 04/21 --> isolation if anc<500 # Non-Hodgkins Lymphoma is s/p chemotherapy in the past --> to return to [facility] for further treatment --> likely for ct/pet as outpatient --> CT Here shows no e/o disease --> imaging has been reviewed thus far --> end date of 04/2020 # Anemia likely of chronic disease -- does not appear to have iron deficiency --> transfuse as needed, tibc and ferritin are cw acd --> hgb 7.8-->8.6-->8.5-->8.4 --> no hemolysis is noted --> s/p transfusion on admission # Covid 19++ with SIRS (febrile, tachycardic) --> per pulm and id --> CXR with diffuse non-specific inflammatory/infectious process --> s/p Cefepime (04/14 - 04/15) # Hypokalemia # Hypomagnesia # Chronic Back pain # Full Code Appreciate consultation and dw Rn Subjective Constitutional: Denies: no symptoms, chills, fever, malaise, weakness, other HEENT: Denies: no symptoms, eye pain, blurred vision, tearing, double vision, ear pain, ear discharge, nose pain, nose congestion, throat pain, throat swelling, mouth pain, mouth swelling, other Cardiovascular: Denies: no symptoms, chest pain, edema, irregular heart rate, lightheadedness, palpitations, syncope, other Respiratory: Denies: no symptoms, cough, shortness of breath, SOB with excertion, SOB at rest, sputum, wheezing, other Neurologic/Psychiatric: Denies: no symptoms, anxiety, depressed, emotional problems, headache, numbness, paresthesia, pre-existing deficit, seizure, tingling, tremors, weakness, other Endocrine: Denies: no symptoms, excessive sweating, flushing, intolerance to cold, intolerance to heat, increased hunger, increased thirst, increased urine, unexplained weight gain, unexplained weight loss, other Hematologic/Lymphatic: Denies: no symptoms, anemia, easy bleeding, easy bruising, adenopathy, other Allergies: Coded Allergies: No Known Allergies (Unverified , 04/11/20) Subjective 04/17 is on room air, more comfortable, potential dc to snf 04/18 labs reviewed, no bleeding, meds noted, no night sweats 04/19 sleeping comfortably, no major events, no night sweats 04/20 meds noted, labs reviewed, wbc 2.9, hep and hiv is neg 04/21 labs reviewed, in am, the wbc was 2, to get neupogen x 1 dose now 04/23 labs noted, no bleeding, wbc 4, hgb remains low, but holding off trans Objective Objective Current Medications Medications (Trade) Dose Ordered Sig/Angelika Route PRN Reason Start Time Stop Time Status Last Admin Dose Admin Acetaminophen (Tylenol) 650 mg Q6H PRN ORAL Mild Pain (Pain Scale 1-3) 04/12/20 02:45 05/12/20 02:44 04/22/20 18:38 Acetaminophen (Tylenol) 650 mg Q6H PRN ORAL FEVER 04/12/20 16:30 05/12/20 16:29 04/19/20 15:43 Acetaminophen/ Hydrocodone Bitart (Terral 10/325) 1 tab Q6H PRN ORAL severe pain 04/22/20 11:00 04/29/20 10:59 Acetaminophen/ Hydrocodone Bitart (Terral 5/325) 1 tab Q6H PRN ORAL moderate pain 04/22/20 11:00 04/29/20 10:59 Allopurinol (allopurinoL) 300 mg DAILY ORAL 04/12/20 09:00 05/12/20 08:59 04/22/20 09:06 Baclofen (Lioresal) 10 mg THREE TIMES A DAY ORAL 04/12/20 09:00 05/12/20 08:59 04/19/20 09:44 Chlorhexidine Gluconate (Christy-Hex 2%) 1 applic DAILY@1999 TOPIC 04/12/20 20:00 07/11/20 19:59 04/22/20 21:12 Dextrose/ Electrolytes 1,000 ml @ 50 mls/hr Q20H IV 04/14/20 12:00 05/14/20 11:59 04/22/20 21:10 Docusate Sodium (Colace) 100 mg TWICE A DAY ORAL 04/20/20 09:00 05/20/20 08:59 04/21/20 19:05 Enoxaparin Sodium (Lovenox) 40 mg DAILY SUBQ 04/18/20 10:00 07/17/20 09:59 04/22/20 09:06 Gadobutrol (Gadavist) 7.5 mmol NOW PRN IV Radiology Procedure 04/20/20 13:45 04/24/20 13:44 Gadobutrol (Gadavist) 7.5 mmol NOW PRN IV Radiology Procedure 04/20/20 13:45 04/24/20 13:44 Gadobutrol (Gadavist) 7.5 mmol NOW PRN IV Radiology Procedure 04/20/20 13:45 04/24/20 13:44 Lactulose (Cephulac) 20 gm THREE TIMES A DAY ORAL 04/21/20 13:00 05/21/20 12:59 04/21/20 19:05 Lorazepam (Ativan 2mg/ml 1ml) 0.5 mg DAILYPRN PRN IV x1dose for anxiety in MRI 04/20/20 13:30 04/27/20 13:29 Morphine Sulfate (Morphine Sulfate) 2 mg Q3H PRN IVP Severe Pain (Pain Scale 7-10) 04/22/20 23:15 04/29/20 23:14 04/23/20 03:27 Morphine Sulfate (Morphine Sulfate) 4 mg EVERY 3 HOURS PRN IVP SEVERE BREAKTHRU PAIN 04/22/20 18:00 04/29/20 17:59 Ondansetron HCl (Zofran) 4 mg Q6H PRN IVP Nausea & Vomiting 04/19/20 13:30 05/19/20 13:29 Polyethylene Glycol (Miralax) 17 gm DAILY ORAL 04/20/20 09:00 05/20/20 08:59 Vancomycin HCl (Vanco pharmacy to dose) 1 ea DAILY PRN MISC Per rx protocol 04/12/20 04:15 05/12/20 04:14 Vancomycin HCl 1 gm/Dextrose 275 ml @ 183.708 mls/hr Q12HR@1100,2300 IVPB 04/17/20 23:00 04/25/20 23:59 04/22/20 23:00 Last 24 Hour Vital Signs Date Time Temp Pulse Resp B/P (MAP) Pulse Ox O2 Delivery O2 Flow Rate FiO2 04/23/20 04:00 97.7 107 20 122/76 (91) 96 04/23/20 00:00 97.9 105 20 125/83 (97) 99 04/22/20 21:00 Nasal Cannula 1.0 04/22/20 20:00 97.5 89 20 115/71 (86) 96 04/22/20 16:00 97.3 76 20 119/75 (90) 97 04/22/20 12:00 97.1 76 20 130/62 (84) 97 04/22/20 09:00 Nasal Cannula 1.0 04/22/20 08:00 98.0 72 20 126/76 (93) 99 04/22/20 07:33 97 Nasal Cannula 1.0 24 04/22/20 04:00 98.9 100 18 100/68 (79) 96 04/22/20 00:00 98.9 114 20 99/72 (81) 97 04/21/20 21:08 98.9 04/21/20 21:00 Nasal Cannula 1.0 04/21/20 20:31 97 Nasal Cannula 2.0 28 04/21/20 20:00 100.6 118 20 112/71 (85) 97 04/21/20 16:00 99.4 104 19 103/71 (82) 94 l Intake and Output 04/22/20 04/23/20 19:00 07:00 Intake Total 530 ml 1075.000 ml Output Total 350 ml 450 ml Balance 180 ml 625.000 ml Intake Oral 480 ml 400 ml IV Total 50 ml 675.000 ml Output Urine Total 350 ml 450 ml # Bowel Movements 1 Labs Test 04/21/20 05:00 04/22/20 04:40 04/23/20 06:30 White Blood Count 2.0 K/UL (4.8-10.8) 4.6 K/UL (4.8-10.8) 4.6 K/UL (4.8-10.8) Red Blood Count 2.99 M/UL (4.20-5.40) 3.10 M/UL (4.20-5.40) 3.06 M/UL (4.20-5.40) Hemoglobin 8.0 G/DL (12.0-16.0) 8.2 G/DL (12.0-16.0) 8.3 G/DL (12.0-16.0) Hematocrit 24.7 % (37.0-47.0) 26.0 % (37.0-47.0) 24.6 % (37.0-47.0) Mean Corpuscular Volume 82 FL (80-99) 84 FL (80-99) 80 FL (80-99) Mean Corpuscular Hemoglobin 26.8 PG (27.0-31.0) 26.6 PG (27.0-31.0) 27.0 PG (27.0-31.0) Mean Corpuscular Hemoglobin Concent 32.6 G/DL (32.0-36.0) 31.7 G/DL (32.0-36.0) 33.6 G/DL (32.0-36.0) Red Cell Distribution Width 18.1 % (11.6-14.8) 17.8 % (11.6-14.8) 18.4 % (11.6-14.8) Platelet Count 377 K/UL (150-450) 357 K/UL (150-450) 367 K/UL (150-450) Mean Platelet Volume 5.6 FL (6.5-10.1) 5.1 FL (6.5-10.1) 5.3 FL (6.5-10.1) Neutrophils (%) (Auto) % (45.0-75.0) 73.5 % (45.0-75.0) 77.0 % (45.0-75.0) Lymphocytes (%) (Auto) % (20.0-45.0) 16.0 % (20.0-45.0) 14.1 % (20.0-45.0) Monocytes (%) (Auto) % (1.0-10.0) 6.3 % (1.0-10.0) 6.0 % (1.0-10.0) Eosinophils (%) (Auto) % (0.0-3.0) 2.9 % (0.0-3.0) 1.3 % (0.0-3.0) Basophils (%) (Auto) % (0.0-2.0) 1.3 % (0.0-2.0) 1.6 % (0.0-2.0) Differential Total Cells Counted 100 Neutrophils % (Manual) 57 % (45-75) Lymphocytes % (Manual) 37 % (20-45) Monocytes % (Manual) 4 % (1-10) Eosinophils % (Manual) 2 % (0-3) Basophils % (Manual) 0 % (0-2) Band Neutrophils 0 % (0-8) Platelet Estimate Adequate Platelet Morphology Normal Anisocytosis 1+ Sodium Level 138 MMOL/L (136-145) 138 MMOL/L (136-145) 139 MMOL/L (136-145) Potassium Level 3.6 MMOL/L (3.5-5.1) 3.6 MMOL/L (3.5-5.1) 3.7 MMOL/L (3.5-5.1) Chloride Level 105 MMOL/L (98-107) 106 MMOL/L (98-107) 106 MMOL/L (98-107) Carbon Dioxide Level 26 MMOL/L (21-32) 25 MMOL/L (21-32) 24 MMOL/L (21-32) Anion Gap 7 mmol/L (5-15) 7 mmol/L (5-15) 9 mmol/L (5-15) Blood Urea Nitrogen 3 mg/dL (7-18) 2 mg/dL (7-18) 5 mg/dL (7-18) Creatinine 0.4 MG/DL (0.55-1.30) 0.4 MG/DL (0.55-1.30) 1.1 MG/DL (0.55-1.30) Estimat Glomerular Filtration Rate > 60 mL/min (>60) > 60 mL/min (>60) > 60 mL/min (>60) Glucose Level 87 MG/DL (74-106) 79 MG/DL (74-106) 91 MG/DL (74-106) Calcium Level 8.2 MG/DL (8.5-10.1) 8.4 MG/DL (8.5-10.1) 8.3 MG/DL (8.5-10.1) Total Bilirubin 0.5 MG/DL (0.2-1.0) 0.6 MG/DL (0.2-1.0) 0.5 MG/DL (0.2-1.0) Aspartate Amino Transf (AST/SGOT) 16 U/L (15-37) 17 U/L (15-37) 20 U/L (15-37) Alanine Aminotransferase (ALT/SGPT) 9 U/L (12-78) 10 U/L (12-78) 9 U/L (12-78) Alkaline Phosphatase 119 U/L (46-116) 121 U/L (46-116) 121 U/L (46-116) Pro-B-Type Natriuretic Peptide 167.0 pg/mL (0-125) Total Protein 6.0 G/DL (6.4-8.2) 6.2 G/DL (6.4-8.2) 5.9 G/DL (6.4-8.2) Albumin 2.4 G/DL (3.4-5.0) 2.5 G/DL (3.4-5.0) 2.5 G/DL (3.4-5.0) Globulin 3.6 g/dL 3.7 g/dL 3.4 g/dL Albumin/Globulin Ratio 0.7 (1.0-2.7) 0.7 (1.0-2.7) 0.7 (1.0-2.7) Thyroid Stimulating Hormone (TSH) 0.109 uiU/mL (0.358-3.740) 0.249 uiU/mL (0.358-3.740) Free Thyroxine 0.73 NG/DL (0.76-1.46) 0.76 NG/DL (0.76-1.46) Free Triiodothyronine 1.6 pg/mL (2.3-4.2) Height (Feet): 5 Height (Inches): 7.00 Weight (Pounds): 150 Objective Gen: nad Pulm: ctab, no cwr CV: rrr Abd: soft, nt Ext: no cce Martinez Hill MD Apr 23, 2020 09:02
[2020-04-23] MEDS: Lactulose 20gm/30ml UDC ORAL SCH ×3 (09:48→18:00)
[2020-04-23] MEDS: Docusate 100mg cap ORAL SCH ×2 (09:48→18:00)
[2020-04-23] MEDS: Enoxaparin 40mg Inj SUBQ SCH (09:48)
[2020-04-23] MEDS: Miralax 17gm pkt ORAL SCH (09:48)
[2020-04-23] MEDS ORDERED: D5NS 1000ml IV ONE (09:59)
[2020-04-23] MEDS: Morphine Sulfate 4mg/ml Inj (IV USE ONLY) IVP PRN ×2 (10:04→17:24)
[2020-04-23] MEDS: Vancomycin 1 GM in D5W 275 ML IVPB SCH (10:05)
--- NOTE | 2020-04-23 11:31 | General Progress Note ---
Subjective ROS Limited/Unobtainable: Yes Allergies: Coded Allergies: No Known Allergies (Unverified , 04/11/20) Subjective events noted interval notes reviewed Objective Last 24 Hour Vital Signs Date Time Temp Pulse Resp B/P (MAP) Pulse Ox O2 Delivery O2 Flow Rate FiO2 04/23/20 09:00 Nasal Cannula 1.0 04/23/20 08:00 95.7 83 20 121/71 (88) 95 04/23/20 04:00 97.7 107 20 122/76 (91) 96 04/23/20 00:00 97.9 105 20 125/83 (97) 99 04/22/20 21:00 Nasal Cannula 1.0 04/22/20 20:00 97.5 89 20 115/71 (86) 96 04/22/20 16:00 97.3 76 20 119/75 (90) 97 04/22/20 12:00 97.1 76 20 130/62 (84) 97 Intake and Output 04/22/20 04/23/20 19:00 07:00 Intake Total 530 ml 1075.000 ml Output Total 350 ml 450 ml Balance 180 ml 625.000 ml Intake Oral 480 ml 400 ml IV Total 50 ml 675.000 ml Output Urine Total 350 ml 450 ml # Bowel Movements 1 Laboratory Tests 04/23/20 06:30: White Blood Count 4.6L, Red Blood Count 3.06L, Hemoglobin 8.3L, Hematocrit 24.6L , Mean Corpuscular Volume 80, Mean Corpuscular Hemoglobin 27.0, Mean Corpuscular Hemoglobin Concent 33.6, Red Cell Distribution Width 18.4H, Platelet Count 367, Mean Platelet Volume 5.3L, Neutrophils (%) (Auto) 77.0H, Lymphocytes (%) (Auto) 14.1L, Monocytes (%) (Auto) 6.0, Eosinophils (%) (Auto) 1.3, Basophils (%) (A uto) 1.6, Sodium Level 139, Potassium Level 3.7, Chloride Level 106, Carbon Dioxide Level 24, Anion Gap 9, Blood Urea Nitrogen 5L, Creatinine 1.1#, Estimat Glomerular Filtration Rate > 60, Glucose Level 91, Calcium Level 8.3L, Total Bilirubin 0.5, Aspartate Amino Transf (AST/SGOT) 20, Alanine Aminotransferase (ALT/SGPT) 9L, Alkaline Phosphatase 121H, Total Protein 5.9L, Albumin 2.5L, Globulin 3.4, Albumin/Globulin Ratio 0.7L Height (Feet): 5 Height (Inches): 7.00 Weight (Pounds): 150 General Appearance: no apparent distress Cardiovascular: normal rate Respiratory/Chest: decreased breath sounds Abdomen: normal bowel sounds Objective Current Medications Medications (Trade) Dose Ordered Sig/Angelika Route PRN Reason Start Time Stop Time Status Last Admin Dose Admin Acetaminophen (Tylenol) 650 mg Q6H PRN ORAL Mild Pain (Pain Scale 1-3) 04/12/20 02:45 05/12/20 02:44 04/22/20 18:38 Acetaminophen (Tylenol) 650 mg Q6H PRN ORAL FEVER 04/12/20 16:30 05/12/20 16:29 04/19/20 15:43 Acetaminophen/ Hydrocodone Bitart ([place] 10/325) 1 tab Q6H PRN ORAL severe pain 04/22/20 11:00 04/29/20 10:59 Acetaminophen/ Hydrocodone Bitart ([place] 5/325) 1 tab Q6H PRN ORAL moderate pain 04/22/20 11:00 04/29/20 10:59 Allopurinol (allopurinoL) 300 mg DAILY ORAL 04/12/20 09:00 05/12/20 08:59 04/23/20 09:49 Baclofen (Lioresal) 10 mg THREE TIMES A DAY ORAL 04/12/20 09:00 05/12/20 08:59 04/23/20 09:48 Chlorhexidine Gluconate (Christy-Hex 2%) 1 applic DAILY@2000 TOPIC 04/12/20 20:00 07/11/20 19:59 04/22/20 21:12 Dextrose/ Electrolytes 1,000 ml @ 50 mls/hr Q20H IV 04/14/20 12:00 05/14/20 11:59 04/22/20 21:10 Docusate Sodium (Colace) 100 mg TWICE A DAY ORAL 04/20/20 09:00 05/20/20 08:59 04/23/20 09:48 Enoxaparin Sodium (Lovenox) 40 mg DAILY SUBQ 04/18/20 10:00 07/17/20 09:59 04/23/20 09:48 Gadobutrol (Gadavist) 7.5 mmol NOW PRN IV Radiology Procedure 04/20/20 13:45 04/24/20 13:44 Gadobutrol (Gadavist) 7.5 mmol NOW PRN IV Radiology Procedure 04/20/20 13:45 04/24/20 13:44 Gadobutrol (Gadavist) 7.5 mmol NOW PRN IV Radiology Procedure 04/20/20 13:45 04/24/20 13:44 Lactulose (Cephulac) 20 gm THREE TIMES A DAY ORAL 04/21/20 13:00 05/21/20 12:59 04/23/20 09:48 Lorazepam (Ativan 2mg/ml 1ml) 0.5 mg DAILYPRN PRN IV x1dose for anxiety in MRI 04/20/20 13:30 04/27/20 13:29 Morphine Sulfate (Morphine Sulfate) 2 mg Q3H PRN IVP Severe Pain (Pain Scale 7-10) 04/22/20 23:15 04/29/20 23:14 04/23/20 03:27 Morphine Sulfate (Morphine Sulfate) 4 mg EVERY 3 HOURS PRN IVP SEVERE BREAKTHRU PAIN 04/22/20 18:00 04/29/20 17:59 04/23/20 10:04 Ondansetron HCl (Zofran) 4 mg Q6H PRN IVP Nausea & Vomiting 04/19/20 13:30 05/19/20 13:29 Polyethylene Glycol (Miralax) 17 gm DAILY ORAL 04/20/20 09:00 05/20/20 08:59 04/23/20 09:48 Vancomycin HCl (Vanco pharmacy to dose) 1 ea DAILY PRN MISC Per rx protocol 04/12/20 04:15 05/12/20 04:14 Vancomycin HCl 1 gm/Dextrose 275 ml @ 183.708 mls/hr Q12HR@1100,2300 IVPB 04/17/20 23:00 04/25/20 23:59 04/23/20 10:05 Assessment/Plan Problem List: (1) Abnormal thyroid function test ICD Codes: R94.6 - Abnormal results of thyroid function studies SNOMED: 041217696 (2) Anemia ICD Codes: D64.9 - Anemia, unspecified SNOMED: 680227136 Qualifiers: Qualified Codes: D64.9 - Anemia, unspecified Status: stable Assessment/Plan: repeat TSH still low but improved repeat free T4 normalized free T3 is low => this thyroid lab abnormality is 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
[2020-04-23 12:00] VITALS: BP 111/73
[2020-04-23] MEDS: HYDROcodone/Acetamin 10/325 tab ORAL PRN (13:49)
--- NOTE | 2020-04-23 13:51 | Pulmonology Progress Note ---
Subjective ROS Limited/Unobtainable: Yes Interval Events: none new reported per nursing Constitutional: Reports: fever, fatigue HEENT: Repors: no symptoms; Denies: visual change, discharge Respiratory: Reports: no symptoms, dry cough - intermittent dry cough; Denies: shortness of breath, wheezing Cardiovascular: Reports: no symptoms Gastrointestinal/Abdominal: Denies: nausea, vomiting Psychiatric: Denies: depression Skin: Denies: rash Musculoskeletal: Denies: pain Allergies: Coded Allergies: No Known Allergies (Unverified , 04/11/20) Objective Last 24 Hour Vital Signs Date Time Temp Pulse Resp B/P (MAP) Pulse Ox O2 Delivery O2 Flow Rate FiO2 04/23/20 12:00 97.7 111 20 111/73 (86) 95 04/23/20 09:00 Nasal Cannula 1.0 04/23/20 08:00 95.7 83 20 121/71 (88) 95 04/23/20 04:00 97.7 107 20 122/76 (91) 96 04/23/20 00:00 97.9 105 20 125/83 (97) 99 04/22/20 21:00 Nasal Cannula 1.0 04/22/20 20:00 97.5 89 20 115/71 (86) 96 04/22/20 16:00 97.3 76 20 119/75 (90) 97 Intake and Output 04/22/20 04/23/20 19:00 07:00 Intake Total 530 ml 1075.000 ml Output Total 350 ml 450 ml Balance 180 ml 625.000 ml Intake Oral 480 ml 400 ml IV Total 50 ml 675.000 ml Output Urine Total 350 ml 450 ml # Bowel Movements 1 Objective 04/23 on and off 1 lpm NC 04/22 saturating well on and off 1 lpm NC 04/21 no change 04/20 pt saturating well on 2 lpm NC; NAD 04/19 pt saturating well on 2 lpm NC; NAD 04/18 pt saturating well on 2 lpm NC General Appearance: WD/WN, no acute distress HEENT: normocephalic, atraumatic Respiratory: lungs clear Cardiovascular: normal rate, regular rhythm Abdomen: soft, non tender Genitourinary: other - Morales Extremities: no edema Microbiology Date/Time Source Procedure Growth Status 04/21/20 17:00 Nasopharynx Coronavirus COVID-19 PCR ([facility]) - Final Complete Laboratory Tests 04/23/20 06:30: White Blood Count 4.6L, Red Blood Count 3.06L, Hemoglobin 8.3L, Hematocrit 24.6L , Mean Corpuscular Volume 80, Mean Corpuscular Hemoglobin 27.0, Mean Corpuscular Hemoglobin Concent 33.6, Red Cell Distribution Width 18.4H, Platelet Count 367, Mean Platelet Volume 5.3L, Neutrophils (%) (Auto) 77.0H, Lymphocytes (%) (Auto) 14.1L, Monocytes (%) (Auto) 6.0, Eosinophils (%) (Auto) 1.3, Basophils (%) (Auto) 1.6, Sodium Level 139, Potassium Level 3.7, Chloride Level 106, Carbon Dioxide Level 24, Anion Gap 9, Blood Urea Nitrogen 5L, Creatinine 1.1#, Estimat Glomerular Filtration Rate > 60, Glucose Level 91, Calcium Level 8.3L, Total Bilirubin 0.5, Aspartate Amino Transf (AST/SGOT) 20, Alanine Aminotransferase (ALT/SGPT) 9L, Alkaline Phosphatase 121H, Total Protein 5.9L, Albumin 2.5L, Globulin 3.4, Albumin/Globulin Ratio 0.7L Current Medications Medications (Trade) Dose Ordered Sig/Angelika Route PRN Reason Start Time Stop Time Status Last Admin Dose Admin Acetaminophen (Tylenol) 650 mg Q6H PRN ORAL Mild Pain (Pain Scale 1-3) 04/12/20 02:45 05/12/20 02:44 04/22/20 18:38 Acetaminophen (Tylenol) 650 mg Q6H PRN ORAL FEVER 04/12/20 16:30 05/12/20 16:29 04/19/20 15:43 Acetaminophen/ Hydrocodone Bitart ([place] 10/325) 1 tab Q6H PRN ORAL severe pain 04/22/20 11:00 04/29/20 10:59 Acetaminophen/ Hydrocodone Bitart ([place] 5/325) 1 tab Q6H PRN ORAL moderate pain 04/22/20 11:00 04/29/20 10:59 Allopurinol (allopurinoL) 300 mg DAILY ORAL 04/12/20 09:00 05/12/20 08:59 04/23/20 09:49 Baclofen (Lioresal) 10 mg THREE TIMES A DAY ORAL 04/12/20 09:00 05/12/20 08:59 04/23/20 12:46 Chlorhexidine Gluconate (Christy-Hex 2%) 1 applic DAILY@2000 TOPIC 04/12/20 20:00 07/11/20 19:59 04/22/20 21:12 Dextrose/ Electrolytes 1,000 ml @ 50 mls/hr Q20H IV 04/14/20 12:00 05/14/20 11:59 04/22/20 21:10 Docusate Sodium (Colace) 100 mg TWICE A DAY ORAL 04/20/20 09:00 05/20/20 08:59 04/23/20 09:48 Enoxaparin Sodium (Lovenox) 40 mg DAILY SUBQ 04/18/20 10:00 07/17/20 09:59 04/23/20 09:48 Gadobutrol (Gadavist) 7.5 mmol NOW PRN IV Radiology Procedure 04/20/20 13:45 04/24/20 13:44 Gadobutrol (Gadavist) 7.5 mmol NOW PRN IV Radiology Procedure 04/20/20 13:45 04/24/20 13:44 Gadobutrol (Gadavist) 7.5 mmol NOW PRN IV Radiology Procedure 04/20/20 13:45 04/24/20 13:44 Lactulose (Cephulac) 20 gm THREE TIMES A DAY ORAL 04/21/20 13:00 05/21/20 12:59 04/23/20 09:48 Lorazepam (Ativan 2mg/ml 1ml) 0.5 mg DAILYPRN PRN IV x1dose for anxiety in MRI 04/20/20 13:30 04/27/20 13:29 Morphine Sulfate (Morphine Sulfate) 2 mg Q3H PRN IVP Severe Pain (Pain Scale 7-10) 04/22/20 23:15 04/29/20 23:14 04/23/20 12:46 Morphine Sulfate (Morphine Sulfate) 4 mg EVERY 3 HOURS PRN IVP SEVERE BREAKTHRU PAIN 04/22/20 18:00 04/29/20 17:59 04/23/20 10:04 Ondansetron HCl (Zofran) 4 mg Q6H PRN IVP Nausea & Vomiting 04/19/20 13:30 05/19/20 13:29 Polyethylene Glycol (Miralax) 17 gm DAILY ORAL 04/20/20 09:00 05/20/20 08:59 04/23/20 09:48 Vancomycin HCl (Vanco pharmacy to dose) 1 ea DAILY PRN MISC Per rx protocol 04/12/20 04:15 05/12/20 04:14 Vancomycin HCl 1 gm/Dextrose 275 ml @ 183.708 mls/hr Q12HR@1100,2300 IVPB 04/17/20 23:00 04/25/20 23:59 04/23/20 10:05 Assessment/Plan Assessment/Plan 1. COVID-19 positivity. - cont isolation - no indication for any steroid or remdesivir given her normoxemia at this time - s/p cefepime - CXR with diffuse non-specific inflammatory/infectious process - cont supplemental oxygen as needed - CT A/P/C - no obvious pna or abscess, cultures negative 2. Immunocompromised state with history of non-Hodgkin lymphoma. - on chemo - h/o port line infection; on Vanco until 04/25/2020 per pt 3. Hx of fever. 4. Hx of Hypertension. 5. Gout. 6. Anemia DVT ppx - on SCD, lovenox Low TSH; improving - Dr. 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
--- NOTE | 2020-04-23 14:14 | Nephrology Progress Note ---
Assessment/Plan Plan #hypokalemia- #hypomagnesemia #Acute on chronic anemia #h/p non- hodgkins lymphoma #possible sepsis #+ COVID #Femoral intertrochanteric hip fracture. - Pulmonary eval - prbc transfusion prn - replete lytes - hemo-onc eval - ID eval - continue with IV abx - monitor CBC - avoid nephrotoxins - ortho eval - spine eval for L3 acute on chronic bone infarct, less likely neoplasm or infection? times spent 65 min Subjective ROS Limited/Unobtainable: No Constitutional: Reports: weakness HEENT: Denies: no symptoms, eye pain, blurred vision, tearing, double vision, ear pain, ear discharge, nose pain, nose congestion, throat pain, throat swelling, mouth pain, mouth swelling, other Genitourinary: Denies: no symptoms, burning, discharge, frequency, flank pain, hematuria, incontinence, pain, urgency, other Neurologic/Psychiatric: Denies: no symptoms, anxiety, depressed, emotional problems, headache, numbness, paresthesia, pre-existing deficit, seizure, tingling, tremors, weakness, other Subjective hip fracture noted ortho consulted Impression: Minimal distention of the rectum with feces, could represent mild rectal fecal impaction. Equivocal slight thickening of the rectal wall and stranding of the perirectal fat, if real could indicate mild stercoral proctitis Comminuted fracture of the left femoral head, neck, and intertrochanteric region, ununited. Possibly acute, but abundant soft tissues surrounding the fracture area raises possibility that this could be chronic. Correlate with clinical findings Other findings as noted, including evidence of old T12 vertebral body compression fracture and prior vertebral augmentation procedure, Morales catheter, subcentimeter low-attenuation lesions which probably represent renal cysts, small sliding-type hiatal hernia Impression: Unusual signal abnormality of the posterolateral aspect of the L3 vertebral body on the right. This appears to be confined to the vertebral body marrow space. Prior CT scan in retrospect demonstrates sclerotic areas in the same location. Most likely differential consideration is an atypical hemangioma. Other possibilities include acute on chronic bone infarct, less likely neoplasm or infection No other unusual contrast enhancement. No findings to suggest discitis or epidural abscess. Objective Objective Last 24 Hour Vital Signs Date Time Temp Pulse Resp B/P (MAP) Pulse Ox O2 Delivery O2 Flow Rate FiO2 04/23/20 12:00 97.7 111 20 111/73 (86) 95 04/23/20 09:00 Nasal Cannula 1.0 04/23/20 08:00 95.7 83 20 121/71 (88) 95 04/23/20 04:00 97.7 107 20 122/76 (91) 96 04/23/20 00:00 97.9 105 20 125/83 (97) 99 04/22/20 21:00 Nasal Cannula 1.0 04/22/20 20:00 97.5 89 20 115/71 (86) 96 04/22/20 16:00 97.3 76 20 119/75 (90) 97 Intake and Output 04/22/20 04/23/20 19:00 07:00 Intake Total 530 ml 1075.000 ml Output Total 350 ml 450 ml Balance 180 ml 625.000 ml Intake Oral 480 ml 400 ml IV Total 50 ml 675.000 ml Output Urine Total 350 ml 450 ml # Bowel Movements 1 Laboratory Tests 04/23/20 06:30: White Blood Count 4.6L, Red Blood Count 3.06L, Hemoglobin 8.3L, Hematocrit 24.6L , Mean Corpuscular Volume 80, Mean Corpuscular Hemoglobin 27.0, Mean Corpuscular Hemoglobin Concent 33.6, Red Cell Distribution Width 18.4H, Platelet Count 367, Mean Platelet Volume 5.3L, Neutrophils (%) (Auto) 77.0H, Lymphocytes (%) (Auto) 14.1L, Monocytes (%) (Auto) 6.0, Eosinophils (%) (Auto) 1.3, Basophils (%) (Auto) 1.6, Sodium Level 139, Potassium Level 3.7, Chloride Level 106, Carbon Dioxide Level 24, Anion Gap 9, Blood Urea Nitrogen 5L, Creatinine 1.1#, Estimat Glomerular Filtration Rate > 60, Glucose Level 91, Calcium Level 8.3L, Total Bilirubin 0.5, Aspartate Amino Transf (AST/SGOT) 20, Alanine Aminotransferase (ALT/SGPT) 9L, Alkaline Phosphatase 121H, Total Protein 5.9L, Albumin 2.5L, Globulin 3.4, Albumin/Globulin Ratio 0.7L Height (Feet): 5 Height (Inches): 7.00 Weight (Pounds): 150 Kallie Dykes M.D. Apr 23, 2020 14:14
--- NOTE | 2020-04-23 15:41 | Infectious Diseases Prog Note ---
Assessment/Plan Assessment/Plan A) 1) covid-19 virus infection with fevers, saturations stable, CT A/P/C - no obvious pna or abscess, sats stable, no sob, cultures negative 2) hx lymphoma and chemo, history of port line infection and finishing vancomycin treatment course - end date per patient 3) hx anemia 4) allergies - nkda, fh-nc, sh-negative 5) d/w RN 6) notes and records noted P) 1) no indication for covid-19 tx, sats stable, no sob 2) finish vancomycin for previous port-line infection - 04/25/20 end date per patient 3) monitor labs, monitor for hypoxia, monitor fevers, cultures negative 4) will f/u 5) d/w patient 6) d/w Dr. Jordan Subjective Constitutional: Denies: fever HEENT: Denies: congestion Respiratory: Denies: shortness of breath Cardiovascular: Denies: chest pain Gastrointestinal/Abdominal: Denies: nausea, vomiting, diarrhea Genitourinary: Denies: dysuria, hematuria Neurologic: Denies: headache Psychiatric: Denies: depression Skin: Denies: rash Hematologic: Denies: bleeding Musculoskeletal: Denies: pain Allergies: Coded Allergies: No Known Allergies (Unverified , 04/11/20) Objective Last 24 Hour Vital Signs Date Time Temp Pulse Resp B/P (MAP) Pulse Ox O2 Delivery O2 Flow Rate FiO2 04/23/20 12:00 97.7 111 20 111/73 (86) 95 04/23/20 09:00 Nasal Cannula 1.0 04/23/20 08:00 95.7 83 20 121/71 (88) 95 04/23/20 04:00 97.7 107 20 122/76 (91) 96 04/23/20 00:00 97.9 105 20 125/83 (97) 99 04/22/20 21:00 Nasal Cannula 1.0 04/22/20 20:00 97.5 89 20 115/71 (86) 96 04/22/20 16:00 97.3 76 20 119/75 (90) 97 Height (Feet): 5 Height (Inches): 7.00 Weight (Pounds): 150 General Appearance: no acute distress HEENT: normocephalic, atraumatic, anicteric, mucous membranes moist Respiratory/Chest: lungs clear, normal breath sounds, no respiratory distress, no accessory muscle use Cardiovascular: normal rate, regular rhythm, no gallop/murmur, no JVD Abdomen: normal bowel sounds, soft, non tender, no organomegaly, non distended Genitourinary: other - no eaton Extremities: no cyanosis Skin: no rash 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 There is diffuse interstitial prominence. No airspace consolidation. No pneumothorax or pleural effusion. No acute osseous abnormality. Right approach PICC terminates in the expected location of mid SVC IMPRESSION: Diffuse interstitial prominence, which is nonspecific but may be related to peribronchial thickening in the setting of infectious/inflammatory airways disease or interstitial edema. CT angio chest: Impression: No evidence of acute pulmonary embolus or other acute thoracic vascular pathology. Areas of consolidation and volume loss with associated bronchiectasis most likely represent areas of scarring and atelectasis. Note definite acute infiltrates. Other findings as noted, including evidence of prior upper thoracic spine surgery, T12 compression fracture deformity and evidence of prior vertebral augmentation procedure, sliding-type hiatal hernia, PICC CT abdomen and pelvis: Impression: Minimal distention of the rectum with feces, could represent mild rectal fecal impaction. Equivocal slight thickening of the rectal wall and stranding of the perirectal fat, if real could indicate mild stercoral proctitis Comminuted fracture of the left femoral head, neck, and intertrochanteric region, ununited. Possibly acute, but abundant soft tissues surrounding the fracture area raises possibility that this could be chronic. Correlate with clinical findings Other findings as noted, including evidence of old T12 vertebral body compress ion fracture and prior vertebral augmentation procedure, [place] catheter, subcentimeter low-attenuation lesions which probably represent renal cysts, small sliding-type hiatal hernia Microbiology Date/Time Source Procedure Growth Status 04/21/20 17:00 Nasopharynx Coronavirus COVID-19 PCR ([facility]) - Final Complete blood cultures - negative Laboratory Tests Test 04/23/20 06:30 White Blood Count 4.6 K/UL (4.8-10.8) L Red Blood Count 3.06 M/UL (4.20-5.40) L Hemoglobin 8.3 G/DL (12.0-16.0) L Hematocrit 24.6 % (37.0-47.0) L Mean Corpuscular Volume 80 FL (80-99) Mean Corpuscular Hemoglobin 27.0 PG (27.0-31.0) Mean Corpuscular Hemoglobin Concent 33.6 G/DL (32.0-36.0) Red Cell Distribution Width 18.4 % (11.6-14.8) H Platelet Count 367 K/UL (150-450) Mean Platelet Volume 5.3 FL (6.5-10.1) L Neutrophils (%) (Auto) 77.0 % (45.0-75.0) H Lymphocytes (%) (Auto) 14.1 % (20.0-45.0) L Monocytes (%) (Auto) 6.0 % (1.0-10.0) Eosinophils (%) (Auto) 1.3 % (0.0-3.0) Basophils (%) (Auto) 1.6 % (0.0-2.0) Sodium Level 139 MMOL/L (136-145) Potassium Level 3.7 MMOL/L (3.5-5.1) Chloride Level 106 MMOL/L (98-107) Carbon Dioxide Level 24 MMOL/L (21-32) Anion Gap 9 mmol/L (5-15) Blood Urea Nitrogen 5 mg/dL (7-18) L Creatinine 1.1 MG/DL (0.55-1.30) # Estimat Glomerular Filtration Rate > 60 mL/min (>60) Glucose Level 91 MG/DL (74-106) Calcium Level 8.3 MG/DL (8.5-10.1) L Total Bilirubin 0.5 MG/DL (0.2-1.0) Aspartate Amino Transf (AST/SGOT) 20 U/L (15-37) Alanine Aminotransferase (ALT/SGPT) 9 U/L (12-78) L Alkaline Phosphatase 121 U/L (46-116) H Total Protein 5.9 G/DL (6.4-8.2) L Albumin 2.5 G/DL (3.4-5.0) L Globulin 3.4 g/dL Albumin/Globulin Ratio 0.7 (1.0-2.7) L Current Medications Medications (Trade) Dose Ordered Sig/Angelika Route PRN Reason Start Time Stop Time Status Last Admin Dose Admin Acetaminophen (Tylenol) 650 mg Q6H PRN ORAL Mild Pain (Pain Scale 1-3) 04/12/20 02:45 05/12/20 02:44 04/22/20 18:38 Acetaminophen (Tylenol) 650 mg Q6H PRN ORAL FEVER 04/12/20 16:30 05/12/20 16:29 04/19/20 15:43 Acetaminophen/ Hydrocodone Bitart ([place] 10/325) 1 tab Q6H PRN ORAL severe pain 04/22/20 11:00 04/29/20 10:59 04/23/20 13:49 Acetaminophen/ Hydrocodone Bitart ([place] 5/325) 1 tab Q6H PRN ORAL moderate pain 04/22/20 11:00 04/29/20 10:59 Allopurinol (allopurinoL) 300 mg DAILY ORAL 04/12/20 09:00 05/12/20 08:59 04/23/20 09:49 Baclofen (Lioresal) 10 mg THREE TIMES A DAY ORAL 04/12/20 09:00 05/12/20 08:59 04/23/20 12:46 Chlorhexidine Gluconate (Christy-Hex 2%) 1 applic DAILY@2000 TOPIC 04/12/20 20:00 07/11/20 19:59 04/22/20 21:12 Dextrose/ Electrolytes 1,000 ml @ 50 mls/hr Q20H IV 04/14/20 12:00 05/14/20 11:59 04/22/20 21:10 Docusate Sodium (Colace) 100 mg TWICE A DAY ORAL 04/20/20 09:00 05/20/20 08:59 04/23/20 09:48 Enoxaparin Sodium (Lovenox) 40 mg DAILY SUBQ 04/18/20 10:00 07/17/20 09:59 04/23/20 09:48 Gadobutrol (Gadavist) 7.5 mmol NOW PRN IV Radiology Procedure 04/20/20 13:45 04/24/20 13:44 Gadobutrol (Gadavist) 7.5 mmol NOW PRN IV Radiology Procedure 04/20/20 13:45 04/24/20 13:44 Gadobutrol (Gadavist) 7.5 mmol NOW PRN IV Radiology Procedure 04/20/20 13:45 04/24/20 13:44 Lactulose (Cephulac) 20 gm THREE TIMES A DAY ORAL 04/21/20 13:00 05/21/20 12:59 04/23/20 09:48 Lorazepam (Ativan 2mg/ml 1ml) 0.5 mg DAILYPRN PRN IV x1dose for anxiety in MRI 04/20/20 13:30 04/27/20 13:29 Morphine Sulfate (Morphine Sulfate) 2 mg Q3H PRN IVP Severe Pain (Pain Scale 7-10) 04/22/20 23:15 04/29/20 23:14 04/23/20 12:46 Morphine Sulfate (Morphine Sulfate) 4 mg EVERY 3 HOURS PRN IVP SEVERE BREAKTHRU PAIN 04/22/20 18:00 04/29/20 17:59 04/23/20 10:04 Ondansetron HCl (Zofran) 4 mg Q6H PRN IVP Nausea & Vomiting 04/19/20 13:30 05/19/20 13:29 Polyethylene Glycol (Miralax) 17 gm DAILY ORAL 04/20/20 09:00 05/20/20 08:59 04/23/20 09:48 Vancomycin HCl (Vanco pharmacy to dose) 1 ea DAILY PRN MISC Per rx protocol 04/12/20 04:15 05/12/20 04:14 Vancomycin HCl 1 gm/Dextrose 275 ml @ 183.708 mls/hr Q12HR@1100,2300 IVPB 04/17/20 23:00 04/25/20 23:59 04/23/20 10:05 Marko Rivera MD Apr 23, 2020 15:41
[2020-04-23 16:00] VITALS: BP 127/77
--- NOTE | 2020-04-23 16:45 | General Progress Note ---
Subjective Allergies: Coded Allergies: No Known Allergies (Unverified , 04/11/20) Subjective Delayed entry (Progress note for 04/22/2020 visit) patient complains of constipation no BM x 1 week, per patient less appetitie says has had firm stools in past Objective Last 24 Hour Vital Signs Date Time Temp Pulse Resp B/P (MAP) Pulse Ox O2 Delivery O2 Flow Rate FiO2 04/23/20 12:00 97.7 111 20 111/73 (86) 95 04/23/20 09:00 Nasal Cannula 1.0 04/23/20 08:00 95.7 83 20 121/71 (88) 95 04/23/20 04:00 97.7 107 20 122/76 (91) 96 04/23/20 00:00 97.9 105 20 125/83 (97) 99 04/22/20 21:00 Nasal Cannula 1.0 04/22/20 20:00 97.5 89 20 115/71 (86) 96 Intake and Output 04/22/20 04/23/20 19:00 07:00 Intake Total 530 ml 1075.000 ml Output Total 350 ml 450 ml Balance 180 ml 625.000 ml Intake Oral 480 ml 400 ml IV Total 50 ml 675.000 ml Output Urine Total 350 ml 450 ml # Bowel Movements 1 Laboratory Tests 04/23/20 06:30: White Blood Count 4.6L, Red Blood Count 3.06L, Hemoglobin 8.3L, Hematocrit 24.6L , Mean Corpuscular Volume 80, Mean Corpuscular Hemoglobin 27.0, Mean Corpuscular Hemoglobin Concent 33.6, Red Cell Distribution Width 18.4H, Platelet Count 367, Mean Platelet Volume 5.3L, Neutrophils (%) (Auto) 77.0H, Lymphocytes (%) (Auto) 14.1L, Monocytes (%) (Auto) 6.0, Eosinophils (%) (Auto) 1.3, Basophils (%) (Auto) 1.6, Sodium Level 139, Potassium Level 3.7, Chloride Level 106, Carbon Dioxide Level 24, Anion Gap 9, Blood Urea Nitrogen 5L, Creatinine 1.1#, Estimat Glomerular Filtration Rate > 60, Glucose Level 91, Calcium Level 8.3L, Total Bilirubin 0.5, Aspartate Amino Transf (AST/SGOT) 20, Alanine Aminotransferase (ALT/SGPT) 9L, Alkaline Phosphatase 121H, Total Protein 5.9L, Albumin 2.5L, Globulin 3.4, Albumin/Globulin Ratio 0.7L Height (Feet): 5 Height (Inches): 7.00 Weight (Pounds): 150 Objective WDWN AA woman NCAT supple CTA RR abd soft ND trace edema non focal Assessment/Plan Status: stable Assessment/Plan: Assessment - constipation - COVID (+) - Iron deficiency anemia - lymphoma - elevated CEA Recommendations - Miralax / lactulose - follow BM - Consider Mag citrate - IV Iron - GI procedures on hold until acute illness resolved Fe Whitten MD Apr 23, 2020 16:44
--- NOTE | 2020-04-23 16:50 | General Progress Note ---
Subjective Allergies: Coded Allergies: No Known Allergies (Unverified , 04/11/20) Subjective had two small BM yesterday and a small one today refusing lactulose doses Objective Last 24 Hour Vital Signs Date Time Temp Pulse Resp B/P (MAP) Pulse Ox O2 Delivery O2 Flow Rate FiO2 04/23/20 12:00 97.7 111 20 111/73 (86) 95 04/23/20 09:00 Nasal Cannula 1.0 04/23/20 08:00 95.7 83 20 121/71 (88) 95 04/23/20 04:00 97.7 107 20 122/76 (91) 96 04/23/20 00:00 97.9 105 20 125/83 (97) 99 04/22/20 21:00 Nasal Cannula 1.0 04/22/20 20:00 97.5 89 20 115/71 (86) 96 Intake and Output 04/22/20 04/23/20 19:00 07:00 Intake Total 530 ml 1075.000 ml Output Total 350 ml 450 ml Balance 180 ml 625.000 ml Intake Oral 480 ml 400 ml IV Total 50 ml 675.000 ml Output Urine Total 350 ml 450 ml # Bowel Movements 1 Laboratory Tests 04/23/20 06:30: White Blood Count 4.6L, Red Blood Count 3.06L, Hemoglobin 8.3L, Hematocrit 24.6L , Mean Corpuscular Volume 80, Mean Corpuscular Hemoglobin 27.0, Mean Corpuscular Hemoglobin Concent 33.6, Red Cell Distribution Width 18.4H, Platelet Count 367, Mean Platelet Volume 5.3L, Neutrophils (%) (Auto) 77.0H, Lymphocytes (%) (Auto) 14.1L, Monocytes (%) (Auto) 6.0, Eosinophils (%) (Auto) 1.3, Basophils (%) (Auto) 1.6, Sodium Level 139, Potassium Level 3.7, Chloride Level 106, Carbon Dioxide Level 24, Anion Gap 9, Blood Urea Nitrogen 5L, Creatinine 1.1#, Estimat Glomerular Filtration Rate > 60, Glucose Level 91, Calcium Level 8.3L, Total Bilirubin 0.5, Aspartate Amino Transf (AST/SGOT) 20, Alanine Aminotransferase (ALT/SGPT) 9L, Alkaline Phosphatase 121H, Total Protein 5.9L, Albumin 2.5L, Globulin 3.4, Albumin/Globulin Ratio 0.7L Height (Feet): 5 Height (Inches): 7.00 Weight (Pounds): 150 Objective Exam limited due to COVID isolation Assessment/Plan Status: stable Assessment/Plan: Assessment - constipation - COVID (+) - Iron deficiency anemia - lymphoma - elevated CEA Recommendations - Miralax / lactulose - follow BM - Consider Mag citrate - IV Iron - GI procedures on hold until acute illness resolved Fe Whitten MD Apr 23, 2020 16:50
--- NOTE | 2020-04-23 19:35 | NUR ---
NURSE HAND-OFF: Important Events on Shift: pain management Patient Status: stable Diet: regular Pending Orders: n/a Pending Results/Labs:n/a Pending MD notification:n/a Latest Vital Signs: Temperature 98.7 , Pulse 86 , B/P 127 /77 , Respiratory Rate 20 , O2 SAT 99 , Nasal Cannula, O2 Flow Rate 1.0 . Vital Sign Comment: n/a Latest [place] Fall Score: 35 Fall Risk: Medium Risk Safety Measures: Call light Within Reach, Bed Alarm Zone 1, Side Rails Side Rails x2, Bed position Low and Locked. Fall Precautions: Door Sign Patient Fall Education. Addendum: 04/23/20 at 194 by BINH WARE RN report given to Divya LUCIA.
--- NOTE | 2020-04-23 19:41 | NUR ---
NURSE NOTES: Pt. AAOx4, on 1-2L NC for comfort, breathing even and unlabored, no respiratory distress, no complaints of pain. PICC right upper arm CDI with D5 NS 20Kcl at 50ml/h. Bed low and locked position, side rails x3 up, bed alarm on, and call light in reach. Educated pt on importance of turning to prevent further skin breakdown, pt said "later." Will administer pain medication and see if she will allow me to assist in turning. Encouraged pt to make small adjustments and change position of head to offload pressure, pt verbalized understanding. will reinforce
[2020-04-23 20:00] VITALS: BP 92/53
--- NOTE | 2020-04-23 20:03 | General Progress Note ---
Subjective Allergies: Coded Allergies: No Known Allergies (Unverified , 04/11/20) Subjective No acute events overnight per nursing. Patient afebrile for the past 24 hours. Still on 1 to 2 L of nasal cannula. Overall improving however. Pain better controlled on PO pain meds.. Educated on importance of BM regimen. No cough, SOB. No other complaints. Review of systems: Constitutional: Denies: chills, diaphoresis, malaise, weakness, + fever intermittent HEENT: Denies: eye pain, blurred vision, double vision, ear pain, nose pain, throat pain, Cardiovascular: Denies: chest pain, edema, lightheadedness, palpitations Respiratory: SEe HPI Gastrointestinal/Abdominal: Denies: abdominal pain, black stools, blood in stool, constipation, diarrhea, nausea, poor fluid intake vomiting, other Genitourinary: Denies: burning, discharge, frequency, Neurologic/Psychiatric: Denies: headache, numbness, paresthesia, new weakness, other Endocrine: Denies: excessive sweating, flushing, intolerance to cold, MSK: denies joint pains, swelling, stiffness +back pain Hematologic/Lymphatic: Denies: anemia, easy bleeding, easy bruising, Objective Last 24 Hour Vital Signs Date Time Temp Pulse Resp B/P (MAP) Pulse Ox O2 Delivery O2 Flow Rate FiO2 04/23/20 16:00 98.7 86 20 127/77 (94) 99 04/23/20 12:00 97.7 111 20 111/73 (86) 95 04/23/20 09:00 Nasal Cannula 1.0 04/23/20 08:00 95.7 83 20 121/71 (88) 95 04/23/20 04:00 97.7 107 20 122/76 (91) 96 04/23/20 00:00 97.9 105 20 125/83 (97) 99 04/22/20 21:00 Nasal Cannula 1.0 Intake and Output 04/22/20 04/23/20 19:00 07:00 Intake Total 530 ml 1075.000 ml Output Total 350 ml 450 ml Balance 180 ml 625.000 ml Intake Oral 480 ml 400 ml IV Total 50 ml 675.000 ml Output Urine Total 350 ml 450 ml # Bowel Movements 1 Laboratory Tests 04/23/20 06:30: White Blood Count 4.6L, Red Blood Count 3.06L, Hemoglobin 8.3L, Hematocrit 24.6L , Mean Corpuscular Volume 80, Mean Corpuscular Hemoglobin 27.0, Mean Corpuscular Hemoglobin Concent 33.6, Red Cell Distribution Width 18.4H, Platelet Count 367, Mean Platelet Volume 5.3L, Neutrophils (%) (Auto) 77.0H, Lymphocytes (%) (Auto) 14.1L, Monocytes (%) (Auto) 6.0, Eosinophils (%) (Auto) 1.3, Basophils (%) (Auto) 1.6, Sodium Level 139, Potassium Level 3.7, Chloride Level 106, Carbon Dioxide Level 24, Anion Gap 9, Blood Urea Nitrogen 5L, Creatinine 1.1#, Estimat Glomerular Filtration Rate > 60, Glucose Level 91, Calcium Level 8.3L, Total Bilirubin 0.5, Aspartate Amino Transf (AST/SGOT) 20, Alanine Aminotransferase (ALT/SGPT) 9L, Alkaline Phosphatase 121H, Total Protein 5.9L, Albumin 2.5L, Globulin 3.4, Albumin/Globulin Ratio 0.7L Height (Feet): 5 Height (Inches): 7.00 Weight (Pounds): 150 Objective General: WDWN female in NAD, A&O x 4 HEENT: Normocephalic cephalic atraumatic, pupils equal round reactive to light and accommodation, nares patent and no symmetrical, no tonsillar exudates, mucous membranes moist CV: Regular rate regular rhythm, no murmurs, rubs, or gallops + POrt site is C /d/i. Pulm: Lungs clear to auscultation bilaterally. No wheezes, rhonchi, or rales GI: Soft, nontender, nondistended, bowel sounds present + eaton in place, no suprapubic TTP Neuro: CN 2-12 intact bilaterally, no focal signs. Moving all extremities Ext: No lower extremity edema bilaterally Skin: no rashes lesions or ulcers Msk: Joints symmetrical in upper extremity and lower extremity bilaterally, no joint swelling. + left hip pain (slightly) + mid thoracic spinal back pain Lymph: No lymphadenopathy in upper extremity and lower extremity Assessment/Plan Status: stable Assessment/Plan: #Hx of Sepsis 2' port infection #Sepsis due to COVID 19 pneumonia (febrile, tachycardic) #COVID 19+ #Continued fever of unknown origin. COVID vs. cancer related? - resolving. - CTM Fever curve. Could be due to underlying malignancy - Repeat Blood cultures NGTD - Repeat UA: negative - Repeat CXR: Bronchial thickening - Check CT C/A/P including CT angio to eval for PE. : reviewed. No PE. No obvious infection. Incidental left hip fracture - IV fluids as needed - D/W ID. - Port has been removed at OSH - , - ngtd - Cefepime (04/14 - 04/15) - Per patient she is to continue on Vancomycin till 04/25 - ID Consult, appreciate recs - MRI C/T/L spine w/wo contrast to eval for abscess: No sign of infection, abscess or osteo #L3 lesion on MRI: bone infarct vs. osteoid osteoma vs. less likely infection #Chronic LE weakness #s/p Laminectomy earlier in the year #Chronic Back pain > d/w radiology Dr. Hedrick - d/w ID, Neuro - outpatient f/u with spine surgeon: Dr. Nino in [facility] - appreciate neurology consult: Dr. Bajwa - PT when able - [place] 5/10 Q6hr PRN moderate to severe and IV Morphine for BTP #Hypothyroidism, suspect central given TSH and T4 both low - endocrinology consulted: Dr. Fermin to see - FSHpending. #left hip fracture, suspect chronic > Patient states she fell 5 months ago but no recent falls. Also had hard fall on coccyx in 2018. Minimal pain in left hip - appreciate ortho eval: Dr. Payan. Given patient bed bound risks > benefits. Outpatient consideration - pain management #Hx of Lymphoma #leukopenia improving > S/p mets to spine s/p surgery earlier this year and XRT/Chemo > Last chemo in February 2020 - All information per patient - Oncology following, appreciate recs - Can continue current therapy with outpatient onc - No acute interventions needed inpatient - Neupogen x 1 04/21 #Acute blood loss anemia - resolving #anemia of chronic disease #Normocytic anemia Patient presented with Hb 6.7 with normal MCV. History of lymphoma per patient and is receiving chemo tx, last known to be February 2020. - 2U PRBCs ordered and transfused on admission - Hb Stable - Rectic count wnl, Iron and Iron sat low, Ferritin wnl - No active signs of bleeding - Hematology consulted, appreciate recs - CTM for signs of bleeding - Patient will need colonoscopy as outpatient in the future : Gi Consulted; Dr. Carter #sinus tachycardia, due to COVID pna - monitor EKG - Cardiology consulted: Dr. Wan #proctitis #Constipation- > improving - Aggressive bowel regimen - GI aware: Appreciate recommendations - Colace, miralax, - s/p enema and ducolax with improvement #chronic urinary retention - since patient had spine surgery earlier in the year - unsure if has true urinary retention - d/w nephrology -> voiding trial, however patient refused. #Hypokalemia #hypomagnesia - Lytes replaced - appreciate nephro management FENPPX DVTPPX: lovenox Fluids: per nephro Diet: regular Lines: PIV PT/OT: pending Code status:Full Dispo: back to SNF Reason for Continued Hospitalization: hypoxia, fever Dispo - Discharge back to SNF. MIPS (Merit-based Incentive Payment System) Applicable CPT: 97700, 78838 CHECK ALL THAT ARE MET: [] Measure #5 (CHF): All ages. Prescribe LINDSAY/ARB upon discharge for patients with left ventricular systolic dysfunction. If not, the reason is clearly documented in the medical chart [] Measure #8 (CHF): All ages. Prescribe a beta domenico upon discharge for patients with left ventricular systolic dysfunction. If not, the reason is clearly documented in the medical chart. [x] Measure #47: Advance care plan or surrogate decision maker documented in the medical record. [x] Measure #130 The provider has documented, updated, or reviewed the patients current medication list and has documented it in the patients note. [] Measure #374 (All): Send report to referring provider. [] Measure #407(Sepsis due to MSSA bacteremia): Age 18+ Patient treated with a beta-lactam antibiotic (Nafcillin, Oxacillin or Cefazolin) as definitive th erapy. MEDICAL COMPLEXITYHigh complexity medical decision making (need 2/3 categories)Problem - need 4 points [x]Acute/new problem with new plan for workup (4 points, 1 max) [] Acute/new problem without additional workup (3 points, 1 max) [] Unstable chronic problem actively being managed (2 point each, 2 max) [x] Stable chronic problem actively being managed (1 point each, 2 max) [x] Self-limited/transient process (constipation, muscle ache, etc) (1 point each, 2 max) Data - need 4 points [x] Reviewed labs/imaging studies (1 points, 2 max) [x] Independent review of imaging (EKG, xrays, etc) (2 points, 2 max) [x] Discussed case with consult/other MD/RN (2 points, 2 max) High Risk - qualify if have one of the following: [x] Severe exacerbation of acute problem, acute mental status change, IV narcotics, monitoring drug levels (vancomycin, INR, tacrolimus etc) I spent 36 minutes on this patient's case, and 22 mins was dedicated to counseling and/or care coordination. Discussed with nephrology, ortho, RN at bedside. Time of note may not reflect time of encounter Jus Brunner D.O. Apr 23, 2020 20:03
[2020-04-23] MEDS: Dyna-Hex 2% Top Sol 2oz TOPIC SCH (21:15)
--- NOTE | 2020-04-23 22:05 | Neurology Progress Note ---
Interim History Interim History ROS Limited/Unobtainable: No Interim History remains weak and resp distress Objective Physical Exam Last Vital Signs Date Time Temp Pulse Resp B/P (MAP) Pulse Ox O2 Delivery O2 Flow Rate FiO2 04/23/20 21:57 98 Nasal Cannula 1.0 24 04/23/20 21:45 98.7 04/23/20 16:00 86 20 127/77 (94) Laboratory Tests Test 04/23/20 06:30 White Blood Count 4.6 K/UL (4.8-10.8) L Red Blood Count 3.06 M/UL (4.20-5.40) L Hemoglobin 8.3 G/DL (12.0-16.0) L Hematocrit 24.6 % (37.0-47.0) L Mean Corpuscular Volume 80 FL (80-99) Mean Corpuscular Hemoglobin 27.0 PG (27.0-31.0) Mean Corpuscular Hemoglobin Concent 33.6 G/DL (32.0-36.0) Red Cell Distribution Width 18.4 % (11.6-14.8) H Platelet Count 367 K/UL (150-450) Mean Platelet Volume 5.3 FL (6.5-10.1) L Neutrophils (%) (Auto) 77.0 % (45.0-75.0) H Lymphocytes (%) (Auto) 14.1 % (20.0-45.0) L Monocytes (%) (Auto) 6.0 % (1.0-10.0) Eosinophils (%) (Auto) 1.3 % (0.0-3.0) Basophils (%) (Auto) 1.6 % (0.0-2.0) Sodium Level 139 MMOL/L (136-145) Potassium Level 3.7 MMOL/L (3.5-5.1) Chloride Level 106 MMOL/L (98-107) Carbon Dioxide Level 24 MMOL/L (21-32) Anion Gap 9 mmol/L (5-15) Blood Urea Nitrogen 5 mg/dL (7-18) L Creatinine 1.1 MG/DL (0.55-1.30) # Estimat Glomerular Filtration Rate > 60 mL/min (>60) Glucose Level 91 MG/DL (74-106) Calcium Level 8.3 MG/DL (8.5-10.1) L Total Bilirubin 0.5 MG/DL (0.2-1.0) Aspartate Amino Transf (AST/SGOT) 20 U/L (15-37) Alanine Aminotransferase (ALT/SGPT) 9 U/L (12-78) L Alkaline Phosphatase 121 U/L (46-116) H Total Protein 5.9 G/DL (6.4-8.2) L Albumin 2.5 G/DL (3.4-5.0) L Globulin 3.4 g/dL Albumin/Globulin Ratio 0.7 (1.0-2.7) L Impression/Recommendations Problems: (1) Anemia Status: stable Diagnostic Impression Chronic weakness, LE worse than UEs MRI spine noted, osteoma wo spine compression slplaminectomy COVID 19 pneumonia (febrile, tachycardic) Hx of Lymphoma cont medical support pain control PT as able Renny Bajwa MD Apr 23, 2020 22:05
--- NOTE | 2020-04-23 23:50 | NUR ---
NURSE NOTES: RECEIVED PATIENT FROM [facility]. PATIENT IS SLEEPING, AROUSABLE, ON ROOM AIR, NO ACUTE DISTRESS NOTED. PICC LINE INTACT AND PATENT, DRESSING DRY AND INTACT, FLUID INFUSING. PATIENT DENIES CHEST PAIN, NUMBNESS OR SOB. WOUND ON SACRAL OPEN TO AIR, PATIENT REFUSED OPTIFOAM. BED IS LOCKED AND LOW, BED ALARMS NOTED, SIDE RAILS UPX2 AND CALL LIGHT IS WITHIN REACH. WILL CONTINUE TO MONITOR.
--- NOTE | 2020-04-23 23:54 | NUR ---
NURSE HAND-OFF: Important Events on Shift: pain management, gave [place] around 1999, BP is low so will not administer more, endorsed to RN Patient Status: stable, but groggy and lethargic Diet: regular Pending Orders: n/a Pending Results/Labs:n/a Pending MD notification:n/a Latest Vital Signs: Temperature 98.7 , Pulse 86 , B/P 127 /77 , Respiratory Rate 20 , O2 SAT 99 , Nasal Cannula, O2 Flow Rate 1.0 . Vital Sign Comment: n/a Latest [place] Fall Score: 35 Fall Risk: Medium Risk Safety Measures: Call light Within Reach, Bed Alarm Zone 1, Side Rails Side Rails x2, Bed position Low and Locked. Fall Precautions: Door Sign Patient Fall Education. Report given to [place] RN
[2020-04-24] VITALS: BP 106/66
[2020-04-24 04:00] VITALS: BP 103/64
[2020-04-24] MEDS: Morphine Sulfate 2mg/ml Inj(IV/IM USE ONLY) IVP PRN (05:21)
--- NOTE | 2020-04-24 06:57 | Hematology/Onc Progress Note ---
Assessment/Plan Assessment/Plan # Leukopenia COVID19++++++++++ --> hep and hiv order as needed --> wbc 4-->3-->2.9->2->4.6 --> Neupogen 300 x1 04/21 --> isolation if anc<500 # Non-Hodgkins Lymphoma is s/p chemotherapy in the past --> to return to [facility] for further treatment --> likely for ct/pet as outpatient --> CT Here shows no e/o disease --> imaging has been reviewed thus far --> end date of 04/2020 # Anemia likely of chronic disease -- does not appear to have iron deficiency --> transfuse as needed, tibc and ferritin are cw acd --> hgb 7.8-->8.6-->8.5-->8.4 --> no hemolysis is noted --> s/p transfusion on admission # Covid 19++ with SIRS (febrile, tachycardic) --> per pulm and id --> CXR with diffuse non-specific inflammatory/infectious process --> s/p Cefepime (04/14 - 04/15) # Hypokalemia # Hypomagnesia # Chronic Back pain # Full Code Appreciate consultation and dw Rn Subjective HEENT: Denies: no symptoms, eye pain, blurred vision, tearing, double vision, ear pain, ear discharge, nose pain, nose congestion, throat pain, throat swelling, mouth pain, mouth swelling, other Cardiovascular: Denies: no symptoms, chest pain, edema, irregular heart rate, lightheadedness, palpitations, syncope, other Gastrointestinal/Abdominal: Denies: no symptoms, abdomen distended, abdominal pain, black stools, tarry stools, blood in stool, constipated, diarrhea, difficulty swallowing, nausea, poor appetite, poor fluid intake, rectal bleeding, vomiting, other Genitourinary: Denies: no symptoms, burning, discharge, frequency, flank pain, hematuria, incontinence, pain, urgency, other Neurologic/Psychiatric: Denies: no symptoms, anxiety, depressed, emotional problems, headache, numbness, paresthesia, pre-existing deficit, seizure, tingling, tremors, weakness, other Endocrine: Denies: no symptoms, excessive sweating, flushing, intolerance to cold, intolerance to heat, increased hunger, increased thirst, increased urine, unexplained weight gain, unexplained weight loss, other Hematologic/Lymphatic: Denies: no symptoms, anemia, easy bleeding, easy bruising, adenopathy, other Allergies: Coded Allergies: No Known Allergies (Unverified , 04/11/20) Subjective 04/17 is on room air, more comfortable, potential dc to snf 04/18 labs reviewed, no bleeding, meds noted, no night sweats 04/19 sleeping comfortably, no major events, no night sweats 04/20 meds noted, labs reviewed, wbc 2.9, hep and hiv is neg 04/21 labs reviewed, in am, the wbc was 2, to get neupogen x 1 dose now 04/23 labs noted, no bleeding, wbc 4, hgb remains low, but holding off trans 04/24 labs are pending for am, meds reviewed, no bleeding Objective Objective Current Medications Medications (Trade) Dose Ordered Sig/Angelika Route PRN Reason Start Time Stop Time Status Last Admin Dose Admin Acetaminophen (Tylenol) 650 mg Q6H PRN ORAL Mild Pain (Pain Scale 1-3) 04/12/20 02:45 05/12/20 02:44 04/22/20 18:38 Acetaminophen (Tylenol) 650 mg Q6H PRN ORAL FEVER 04/12/20 16:30 05/12/20 16:29 04/19/20 15:43 Acetaminophen/ Hydrocodone Bitart ([place] 10/325) 1 tab Q6H PRN ORAL severe pain 04/22/20 11:00 04/29/20 10:59 04/23/20 13:49 Acetaminophen/ Hydrocodone Bitart ([place] 5/325) 1 tab Q6H PRN ORAL moderate pain 04/22/20 11:00 04/29/20 10:59 Allopurinol (allopurinoL) 300 mg DAILY ORAL 04/12/20 09:00 05/12/20 08:59 04/23/20 09:49 Baclofen (Lioresal) 10 mg THREE TIMES A DAY ORAL 04/12/20 09:00 05/12/20 08:59 04/23/20 12:46 Chlorhexidine Gluconate (Christy-Hex 2%) 1 applic DAILY@1999 TOPIC 04/12/20 20:00 07/11/20 19:59 04/23/20 21:15 Dextrose/ Electrolytes 1,000 ml @ 50 mls/hr Q20H IV 04/14/20 12:00 05/14/20 11:59 04/23/20 17:23 Docusate Sodium (Colace) 100 mg TWICE A DAY ORAL 04/20/20 09:00 05/20/20 08:59 04/23/20 09:48 Enoxaparin Sodium (Lovenox) 40 mg DAILY SUBQ 04/18/20 10:00 07/17/20 09:59 04/23/20 09:48 Gadobutrol (Gadavist) 7.5 mmol NOW PRN IV Radiology Procedure 04/20/20 13:45 04/24/20 13:44 Gadobutrol (Gadavist) 7.5 mmol NOW PRN IV Radiology Procedure 04/20/20 13:45 04/24/20 13:44 Gadobutrol (Gadavist) 7.5 mmol NOW PRN IV Radiology Procedure 04/20/20 13:45 04/24/20 13:44 Lactulose (Cephulac) 20 gm THREE TIMES A DAY ORAL 04/21/20 13:00 05/21/20 12:59 04/23/20 09:48 Lorazepam (Ativan 2mg/ml 1ml) 0.5 mg DAILYPRN PRN IV x1dose for anxiety in MRI 04/20/20 13:30 04/27/20 13:29 04/24/20 06:18 Morphine Sulfate (Morphine Sulfate) 2 mg Q3H PRN IVP Severe Pain (Pain Scale 7-10) 04/22/20 23:15 04/29/20 23:14 04/24/20 05:21 Morphine Sulfate (Morphine Sulfate) 4 mg EVERY 3 HOURS PRN IVP SEVERE BREAKTHRU PAIN 04/22/20 18:00 04/29/20 17:59 04/23/20 17:24 Ondansetron HCl (Zofran) 4 mg Q6H PRN IVP Nausea & Vomiting 04/19/20 13:30 05/19/20 13:29 Polyethylene Glycol (Miralax) 17 gm DAILY ORAL 04/20/20 09:00 05/20/20 08:59 04/23/20 09:48 Last 24 Hour Vital Signs Date Time Temp Pulse Resp B/P (MAP) Pulse Ox O2 Delivery O2 Flow Rate FiO2 04/24/20 06:18 123 20 103/64 95 04/24/20 04:00 98.2 123 20 103/64 (77) 95 04/24/20 00:00 98.1 118 20 106/66 (79) 96 04/23/20 21:57 98 Nasal Cannula 1.0 24 04/23/20 21:45 98.7 04/23/20 21:00 Nasal Cannula 1.0 04/23/20 20:00 97.2 111 20 92/53 (66) 94 04/23/20 16:00 98.7 86 20 127/77 (94) 99 04/23/20 12:00 97.7 111 20 111/73 (86) 95 04/23/20 09:00 Nasal Cannula 1.0 04/23/20 08:00 95.7 83 20 121/71 (88) 95 04/23/20 04:00 97.7 107 20 122/76 (91) 96 04/23/20 00:00 97.9 105 20 125/83 (97) 99 04/22/20 21:00 Nasal Cannula 1.0 04/22/20 20:00 97.5 89 20 115/71 (86) 96 04/22/20 16:00 97.3 76 20 119/75 (90) 97 04/22/20 12:00 97.1 76 20 130/62 (84) 97 04/22/20 09:00 Nasal Cannula 1.0 04/22/20 08:00 98.0 72 20 126/76 (93) 99 04/22/20 07:33 97 Nasal Cannula 1.0 24 Intake and Output 04/23/20 04/24/20 19:00 07:00 Intake Total 290 ml 250 ml Output Total 200 ml Balance 290 ml 50 ml Intake Oral 240 ml IV Total 50 ml 250 ml Output Urine Total 200 ml # Voids 1 Labs Test 04/22/20 04:40 04/23/20 06:30 04/23/20 22:30 White Blood Count 4.6 K/UL (4.8-10.8) 4.6 K/UL (4.8-10.8) Red Blood Count 3.10 M/UL (4.20-5.40) 3.06 M/UL (4.20-5.40) Hemoglobin 8.2 G/DL (12.0-16.0) 8.3 G/DL (12.0-16.0) Hematocrit 26.0 % (37.0-47.0) 24.6 % (37.0-47.0) Mean Corpuscular Volume 84 FL (80-99) 80 FL (80-99) Mean Corpuscular Hemoglobin 26.6 PG (27.0-31.0) 27.0 PG (27.0-31.0) Mean Corpuscular Hemoglobin Concent 31.7 G/DL (32.0-36.0) 33.6 G/DL (32.0-36.0) Red Cell Distribution Width 17.8 % (11.6-14.8) 18.4 % (11.6-14.8) Platelet Count 357 K/UL (150-450) 367 K/UL (150-450) Mean Platelet Volume 5.1 FL (6.5-10.1) 5.3 FL (6.5-10.1) Neutrophils (%) (Auto) 73.5 % (45.0-75.0) 77.0 % (45.0-75.0) Lymphocytes (%) (Auto) 16.0 % (20.0-45.0) 14.1 % (20.0-45.0) Monocytes (%) (Auto) 6.3 % (1.0-10.0) 6.0 % (1.0-10.0) Eosinophils (%) (Auto) 2.9 % (0.0-3.0) 1.3 % (0.0-3.0) Basophils (%) (Auto) 1.3 % (0.0-2.0) 1.6 % (0.0-2.0) Sodium Level 138 MMOL/L (136-145) 139 MMOL/L (136-145) Potassium Level 3.6 MMOL/L (3.5-5.1) 3.7 MMOL/L (3.5-5.1) Chloride Level 106 MMOL/L (98-107) 106 MMOL/L (98-107) Carbon Dioxide Level 25 MMOL/L (21-32) 24 MMOL/L (21-32) Anion Gap 7 mmol/L (5-15) 9 mmol/L (5-15) Blood Urea Nitrogen 2 mg/dL (7-18) 5 mg/dL (7-18) Creatinine 0.4 MG/DL (0.55-1.30) 1.1 MG/DL (0.55-1.30) Estimat Glomerular Filtration Rate > 60 mL/min (>60) > 60 mL/min (>60) Glucose Level 79 MG/DL (74-106) 91 MG/DL (74-106) Calcium Level 8.4 MG/DL (8.5-10.1) 8.3 MG/DL (8.5-10.1) Total Bilirubin 0.6 MG/DL (0.2-1.0) 0.5 MG/DL (0.2-1.0) Aspartate Amino Transf (AST/SGOT) 17 U/L (15-37) 20 U/L (15-37) Alanine Aminotransferase (ALT/SGPT) 10 U/L (12-78) 9 U/L (12-78) Alkaline Phosphatase 121 U/L (46-116) 121 U/L (46-116) Total Protein 6.2 G/DL (6.4-8.2) 5.9 G/DL (6.4-8.2) Albumin 2.5 G/DL (3.4-5.0) 2.5 G/DL (3.4-5.0) Globulin 3.7 g/dL 3.4 g/dL Albumin/Globulin Ratio 0.7 (1.0-2.7) 0.7 (1.0-2.7) Thyroid Stimulating Hormone (TSH) 0.249 uiU/mL (0.358-3.740) Free Thyroxine 0.76 NG/DL (0.76-1.46) Free Triiodothyronine 1.6 pg/mL (2.3-4.2) Follicle Stimulating Hormone 3.3 mIU/mL (.) Vancomycin Level Trough 35.1 ug/mL (5.0-12.0) Height (Feet): 5 Height (Inches): 7.00 Weight (Pounds): 150 Objective Gen: nad Pulm: ctab, no cwr CV: rrr Abd: soft, nt Ext: no cce Martinez Hill MD Apr 24, 2020 06:57
[2020-04-24 07:46] LABS: BASOPHILS % (AUTO) 1.5 % (0.0-2.0); HEMATOCRIT 25.6 % (37.0-47.0); HEMOGLOBIN 8.2 G/DL (12.0-16.0); LYMPHOCYTES % (AUTO) 18.6 % (20.0-45.0); MEAN CORPUSCULAR VOLUME 83 FL (80-99); MONOCYTES % (AUTO) 10.7 % (1.0-10.0); NEUTROPHILS % (AUTO) 66.2 % (45.0-75.0); PLATELET COUNT 338 K/UL (150-450); RED BLOOD COUNT 3.07 M/UL (4.20-5.40); WHITE BLOOD COUNT 4.1 K/UL (4.8-10.8)
--- NOTE | 2020-04-24 07:55 | General Progress Note ---
Subjective ROS Limited/Unobtainable: Yes Allergies: Coded Allergies: No Known Allergies (Unverified , 04/11/20) Subjective events noted interval notes reviewed Objective Last 24 Hour Vital Signs Date Time Temp Pulse Resp B/P (MAP) Pulse Ox O2 Delivery O2 Flow Rate FiO2 04/24/20 06:18 123 20 103/64 95 04/24/20 04:00 98.2 123 20 103/64 (77) 95 04/24/20 00:00 98.1 118 20 106/66 (79) 96 04/23/20 21:57 98 Nasal Cannula 1.0 24 04/23/20 21:45 98.7 04/23/20 21:00 Nasal Cannula 1.0 04/23/20 20:00 97.2 111 20 92/53 (66) 94 04/23/20 16:00 98.7 86 20 127/77 (94) 99 04/23/20 12:00 97.7 111 20 111/73 (86) 95 04/23/20 09:00 Nasal Cannula 1.0 04/23/20 08:00 95.7 83 20 121/71 (88) 95 Intake and Output 04/23/20 04/24/20 19:00 07:00 Intake Total 290 ml 550 ml Output Total 200 ml Balance 290 ml 350 ml Intake Oral 240 ml IV Total 50 ml 550 ml Output Urine Total 200 ml # Voids 1 Laboratory Tests 04/23/20 22:30: Vancomycin Level Trough 35.1H 04/24/20 05:45: White Blood Count [Pending], Red Blood Count [Pending], Hemoglobin [Pending], Hematocrit [Pending], Mean Corpuscular Volume [Pending], Mean Corpuscular Hemoglobin [Pending], Mean Corpuscular Hemoglobin Concent [Pending], Red Cell Distribution Width [Pending], Platelet Count [Pending], Mean Platelet Volume [Pending], Neutrophils (%) (Auto) [Pending], Lymphocytes (%) (Auto) [Pending], Monocytes (%) (Auto) [Pending], Eosinophils (%) (Auto) [Pending], Basophils (%) (Auto) [Pending], Sodium Level [Pending], Potassium Level [Pending], Chloride Level [Pending], Carbon Dioxide Level [Pending], Blood Urea Nitrogen [Pending], Creatinine [Pending], Estimat Glomerular Filtration Rate [Pending], Glucose Level [Pending], Calcium Level [Pending] Height (Feet): 5 Height (Inches): 7.00 Weight (Pounds): 150 Objective Current Medications Medications (Trade) Dose Ordered Sig/Angelika Route PRN Reason Start Time Stop Time Status Last Admin Dose Admin Acetaminophen (Tylenol) 650 mg Q6H PRN ORAL Mild Pain (Pain Scale 1-3) 04/12/20 02:45 05/12/20 02:44 04/22/20 18:38 Acetaminophen (Tylenol) 650 mg Q6H PRN ORAL FEVER 04/12/20 16:30 05/12/20 16:29 04/19/20 15:43 Acetaminophen/ Hydrocodone Bitart ([place] 10/325) 1 tab Q6H PRN ORAL severe pain 04/22/20 11:00 04/29/20 10:59 04/23/20 13:49 Acetaminophen/ Hydrocodone Bitart ([place] 5/325) 1 tab Q6H PRN ORAL moderate pain 04/22/20 11:00 04/29/20 10:59 Allopurinol (allopurinoL) 300 mg DAILY ORAL 04/12/20 09:00 05/12/20 08:59 04/23/20 09:49 Baclofen (Lioresal) 10 mg THREE TIMES A DAY ORAL 04/12/20 09:00 05/12/20 08:59 04/23/20 12:46 Chlorhexidine Gluconate (Christy-Hex 2%) 1 applic DAILY@2000 TOPIC 04/12/20 20:00 07/11/20 19:59 04/23/20 21:15 Dextrose/ Electrolytes 1,000 ml @ 50 mls/hr Q20H IV 04/14/20 12:00 05/14/20 11:59 04/23/20 17:23 Docusate Sodium (Colace) 100 mg TWICE A DAY ORAL 04/20/20 09:00 05/20/20 08:59 04/23/20 09:48 Enoxaparin Sodium (Lovenox) 40 mg DAILY SUBQ 04/18/20 10:00 07/17/20 09:59 04/23/20 09:48 Gadobutrol (Gadavist) 7.5 mmol NOW PRN IV Radiology Procedure 04/20/20 13:45 04/24/20 13:44 Gadobutrol (Gadavist) 7.5 mmol NOW PRN IV Radiology Procedure 04/20/20 13:45 04/24/20 13:44 Gadobutrol (Gadavist) 7.5 mmol NOW PRN IV Radiology Procedure 04/20/20 13:45 04/24/20 13:44 Lactulose (Cephulac) 20 gm THREE TIMES A DAY ORAL 04/21/20 13:00 05/21/20 12:59 04/23/20 09:48 Lorazepam (Ativan 2mg/ml 1ml) 0.5 mg DAILYPRN PRN IV x1dose for anxiety in MRI 04/20/20 13:30 04/27/20 13:29 04/24/20 06:18 Morphine Sulfate (Morphine Sulfate) 2 mg Q3H PRN IVP Severe Pain (Pain Scale 7-10) 04/22/20 23:15 04/29/20 23:14 04/24/20 05:21 Morphine Sulfate (Morphine Sulfate) 4 mg EVERY 3 HOURS PRN IVP SEVERE BREAKTHRU PAIN 04/22/20 18:00 04/29/20 17:59 04/23/20 17:24 Ondansetron HCl (Zofran) 4 mg Q6H PRN IVP Nausea & Vomiting 04/19/20 13:30 05/19/20 13:29 Polyethylene Glycol (Miralax) 17 gm DAILY ORAL 04/20/20 09:00 05/20/20 08:59 04/23/20 09:48 Assessment/Plan Problem List: (1) Abnormal thyroid function test ICD Codes: R94.6 - Abnormal results of thyroid function studies SNOMED: 920352369 (2) Anemia ICD Codes: D64.9 - Anemia, unspecified SNOMED: 838671999 Qualifiers: Qualified Codes: D64.9 - Anemia, unspecified Status: stable Assessment/Plan: repeat TSH still low but improved repeat free T4 normalized free T3 is low => this thyroid lab abnormality is 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
[2020-04-24 07:57] LABS: CALCIUM 7.9 MG/DL (8.5-10.1); CREATININE 2.1 MG/DL (0.55-1.30); POTASSIUM 4.5 MMOL/L (3.5-5.1)
[2020-04-24 08:00] VITALS: BP 99/64
--- NOTE | 2020-04-24 08:53 | NUR ---
NURSE NOTES: pt is asleep in the bed alert and awake. respiration is even and unlabored on room air. HOB elevated. no acute distress noted at this time. LINDEN PICC line inplace, no redness and tenderness noted on site. call light within reach.
[2020-04-24] MEDS: Enoxaparin 40mg Inj SUBQ SCH ×2 (09:00→09:38)
--- NOTE | 2020-04-24 09:02 | Pulmonology Progress Note ---
Subjective ROS Limited/Unobtainable: Yes Interval Events: none new reported per nursing Constitutional: Denies: fever HEENT: Repors: no symptoms; Denies: visual change, discharge Respiratory: Reports: no symptoms, dry cough - intermittent dry cough; Denies: shortness of breath, wheezing Cardiovascular: Reports: no symptoms Gastrointestinal/Abdominal: Denies: nausea, vomiting, diarrhea Psychiatric: Denies: depression Skin: Denies: rash Musculoskeletal: Denies: pain Allergies: Coded Allergies: No Known Allergies (Unverified , 04/11/20) Objective Last 24 Hour Vital Signs Date Time Temp Pulse Resp B/P (MAP) Pulse Ox O2 Delivery O2 Flow Rate FiO2 04/24/20 06:18 123 20 103/64 95 04/24/20 04:00 98.2 123 20 103/64 (77) 95 04/24/20 00:00 98.1 118 20 106/66 (79) 96 04/23/20 21:57 98 Nasal Cannula 1.0 24 04/23/20 21:45 98.7 04/23/20 21:00 Nasal Cannula 1.0 04/23/20 20:00 97.2 111 20 92/53 (66) 94 04/23/20 16:00 98.7 86 20 127/77 (94) 99 04/23/20 12:00 97.7 111 20 111/73 (86) 95 Intake and Output 04/23/20 04/24/20 19:00 07:00 Intake Total 290 ml 550 ml Output Total 200 ml Balance 290 ml 350 ml Intake Oral 240 ml IV Total 50 ml 550 ml Output Urine Total 200 ml # Voids 1 Objective 04/24 no change 04/23 on and off 1 lpm NC 04/22 saturating well on and off 1 lpm NC 04/21 no change 04/20 pt saturating well on 2 lpm NC; NAD 04/19 pt saturating well on 2 lpm NC; NAD 04/18 pt saturating well on 2 lpm NC General Appearance: WD/WN, no acute distress HEENT: normocephalic, atraumatic Respiratory: lungs clear Cardiovascular: normal rate, regular rhythm Abdomen: soft, non tender Genitourinary: other - Morales Extremities: no edema Microbiology Date/Time Source Procedure Growth Status 04/21/20 17:00 Nasopharynx Coronavirus COVID-19 PCR ([facility]) - Final Complete Laboratory Tests 04/23/20 22:30: Vancomycin Level Trough 35.1H 04/24/20 05:45: White Blood Count 4.1L, Red Blood Count 3.07L, Hemoglobin 8.2L, Hematocrit 25.6L , Mean Corpuscular Volume 83, Mean Corpuscular Hemoglobin 26.7L, Mean Corpuscular Hemoglobin Concent 32.0, Red Cell Distribution Width 18.0H, Platelet Count 338, Mean Platelet Volume 5.0L, Neutrophils (%) (Auto) 66.2, Lymphocytes (%) (Auto) 18.6L, Monocytes (%) (Auto) 10.7H, Eosinophils (%) (Auto) 3.0, Basophils (%) (Auto) 1.5, Sodium Level 138, Potassium Level 4.5, Chloride Level 107, Carbon Dioxide Level 20L, Anion Gap 11, Blood Urea Nitrogen 9, Creatinine 2.1#H, Estimat Glomerular Filtration Rate 29.8, Glucose Level 83, Calcium Level 7.9L Current Medications Medications (Trade) Dose Ordered Sig/Angelika Route PRN Reason Start Time Stop Time Status Last Admin Dose Admin Acetaminophen (Tylenol) 650 mg Q6H PRN ORAL Mild Pain (Pain Scale 1-3) 04/12/20 02:45 05/12/20 02:44 04/22/20 18:38 Acetaminophen (Tylenol) 650 mg Q6H PRN ORAL FEVER 04/12/20 16:30 05/12/20 16:29 04/19/20 15:43 Acetaminophen/ Hydrocodone Bitart ([place] 10/325) 1 tab Q6H PRN ORAL severe pain 04/22/20 11:00 04/29/20 10:59 04/23/20 13:49 Acetaminophen/ Hydrocodone Bitart ([place] 5/325) 1 tab Q6H PRN ORAL moderate pain 04/22/20 11:00 04/29/20 10:59 Allopurinol (allopurinoL) 300 mg DAILY ORAL 04/12/20 09:00 05/12/20 08:59 04/23/20 09:49 Baclofen (Lioresal) 10 mg THREE TIMES A DAY ORAL 04/12/20 09:00 05/12/20 08:59 04/23/20 12:46 Chlorhexidine Gluconate (Christy-Hex 2%) 1 applic DAILY@1999 TOPIC 04/12/20 20:00 07/11/20 19:59 04/23/20 21:15 Dextrose/ Electrolytes 1,000 ml @ 50 mls/hr Q20H IV 04/14/20 12:00 05/14/20 11:59 04/23/20 17:23 Docusate Sodium (Colace) 100 mg TWICE A DAY ORAL 04/20/20 09:00 05/20/20 08:59 04/23/20 09:48 Enoxaparin Sodium (Lovenox) 40 mg DAILY SUBQ 04/18/20 10:00 07/17/20 09:59 04/23/20 09:48 Gadobutrol (Gadavist) 7.5 mmol NOW PRN IV Radiology Procedure 04/20/20 13:45 04/24/20 13:44 Gadobutrol (Gadavist) 7.5 mmol NOW PRN IV Radiology Procedure 04/20/20 13:45 04/24/20 13:44 Gadobutrol (Gadavist) 7.5 mmol NOW PRN IV Radiology Procedure 04/20/20 13:45 04/24/20 13:44 Lactulose (Cephulac) 20 gm THREE TIMES A DAY ORAL 04/21/20 13:00 05/21/20 12:59 04/23/20 09:48 Lorazepam (Ativan 2mg/ml 1ml) 0.5 mg DAILYPRN PRN IV x1dose for anxiety in MRI 04/20/20 13:30 04/27/20 13:29 04/24/20 06:18 Morphine Sulfate (Morphine Sulfate) 2 mg Q3H PRN IVP Severe Pain (Pain Scale 7-10) 04/22/20 23:15 04/29/20 23:14 04/24/20 05:21 Morphine Sulfate (Morphine Sulfate) 4 mg EVERY 3 HOURS PRN IVP SEVERE BREAKTHRU PAIN 04/22/20 18:00 04/29/20 17:59 04/23/20 17:24 Ondansetron HCl (Zofran) 4 mg Q6H PRN IVP Nausea & Vomiting 04/19/20 13:30 05/19/20 13:29 Polyethylene Glycol (Miralax) 17 gm DAILY ORAL 04/20/20 09:00 05/20/20 08:59 04/23/20 09:48 Assessment/Plan Assessment/Plan 1. COVID-19 positivity. - cont isolation - no indication for any steroid or remdesivir given her normoxemia at this time - s/p cefepime - CXR with diffuse non-specific inflammatory/infectious process - cont supplemental oxygen as needed - CT A/P/C - no obvious pna or abscess, cultures negative 2. Immunocompromised state with history of non-Hodgkin lymphoma. - on chemo - h/o port line infection; on Vanco until 04/25/2020 per pt 3. Hx of fever. 4. Hx of Hypertension. 5. Gout. 6. Anemia - s/p transfusion DVT ppx - on SCD, lovenox Low TSH; improving - Dr. Fermin following - no need for levothyroxine per Dr. 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
[2020-04-24] MEDS: Lactulose 20gm/30ml UDC ORAL SCH ×3 (09:35→18:00)
[2020-04-24] MEDS: Miralax 17gm pkt ORAL SCH (09:36)
[2020-04-24] MEDS: Docusate 100mg cap ORAL SCH ×2 (09:36→18:00)
--- NOTE | 2020-04-24 09:52 | NUR ---
NURSE NOTES: pt refuses lovenox as scheduled. explains benefits of medication. pt is non-compliant.
--- NOTE | 2020-04-24 10:09 | Nephrology Progress Note ---
Assessment/Plan Plan #acute kidney injury likely due to vanco toxicity #hypokalemia- #hypomagnesemia #Acute on chronic anemia #h/p non- hodgkins lymphoma #possible sepsis #+ COVID #Femoral intertrochanteric hip fracture. - NS at 75cc/hr - Pulmonary eval - prbc transfusion prn - replete lytes - hemo-onc eval - ID eval - continue with IV abx - monitor CBC - avoid nephrotoxins - ortho eval - spine eval for L3 acute on chronic bone infarct, less likely neoplasm or infection? times spent 65 min Subjective ROS Limited/Unobtainable: No Constitutional: Reports: weakness HEENT: Denies: no symptoms, eye pain, blurred vision, tearing, double vision, ear pain, ear discharge, nose pain, nose congestion, throat pain, throat swelling, mouth pain, mouth swelling, other Genitourinary: Denies: no symptoms, burning, discharge, frequency, flank pain, hematuria, incontinence, pain, urgency, other Neurologic/Psychiatric: Denies: no symptoms, anxiety, depressed, emotional problems, headache, numbness, paresthesia, pre-existing deficit, seizure, tingling, tremors, weakness, other Subjective Cr up to 2.1 vanco level elevated hip fracture noted ortho consulted Impression: Minimal distention of the rectum with feces, could represent mild rectal fecal impaction. Equivocal slight thickening of the rectal wall and stranding of the perirectal fat, if real could indicate mild stercoral proctitis Comminuted fracture of the left femoral head, neck, and intertrochanteric region, ununited. Possibly acute, but abundant soft tissues surrounding the fracture area raises possibility that this could be chronic. Correlate with clinical findings Other findings as noted, including evidence of old T12 vertebral body compression fracture and prior vertebral augmentation procedure, Morales catheter, subcentimeter low-attenuation lesions which probably represent renal cysts, small sliding-type hiatal hernia Impression: Unusual signal abnormality of the posterolateral aspect of the L3 vertebral body on the right. This appears to be confined to the vertebral body m arrow space. Prior CT scan in retrospect demonstrates sclerotic areas in the same location. Most likely differential consideration is an atypical hemangioma. Other possibilities include acute on chronic bone infarct, less likely neoplasm or infection No other unusual contrast enhancement. No findings to suggest discitis or epidural abscess. Objective Objective Last 24 Hour Vital Signs Date Time Temp Pulse Resp B/P (MAP) Pulse Ox O2 Delivery O2 Flow Rate FiO2 04/24/20 06:18 123 20 103/64 95 04/24/20 04:00 98.2 123 20 103/64 (77) 95 04/24/20 00:00 98.1 118 20 106/66 (79) 96 04/23/20 21:57 98 Nasal Cannula 1.0 24 04/23/20 21:45 98.7 04/23/20 21:00 Nasal Cannula 1.0 04/23/20 20:00 97.2 111 20 92/53 (66) 94 04/23/20 16:00 98.7 86 20 127/77 (94) 99 04/23/20 12:00 97.7 111 20 111/73 (86) 95 Intake and Output 04/23/20 04/24/20 19:00 07:00 Intake Total 290 ml 550 ml Output Total 200 ml Balance 290 ml 350 ml Intake Oral 240 ml IV Total 50 ml 550 ml Output Urine Total 200 ml # Voids 1 Laboratory Tests 04/23/20 22:30: Vancomycin Level Trough 35.1H 04/24/20 05:45: White Blood Count 4.1L, Red Blood Count 3.07L, Hemoglobin 8.2L, Hematocrit 25.6L , Mean Corpuscular Volume 83, Mean Corpuscular Hemoglobin 26.7L, Mean Corpuscular Hemoglobin Concent 32.0, Red Cell Distribution Width 18.0H, Platelet Count 338, Mean Platelet Volume 5.0L, Neutrophils (%) (Auto) 66.2, Lymphocytes (%) (Auto) 18.6L, Monocytes (%) (Auto) 10.7H, Eosinophils (%) (Auto) 3.0, Basophils (%) (Auto) 1.5, Sodium Level 138, Potassium Level 4.5, Chloride Level 107, Carbon Dioxide Level 20L, Anion Gap 11, Blood Urea Nitrogen 9, Creatinine 2.1#H, Estimat Glomerular Filtration Rate 29.8, Glucose Level 83, Calcium Level 7.9L Height (Feet): 5 Height (Inches): 7.00 Weight (Pounds): 150 Kallie Dykes M.D. Apr 24, 2020 10:09
--- NOTE | 2020-04-24 10:56 | General Progress Note ---
Subjective ROS Limited/Unobtainable: Yes Allergies: Coded Allergies: No Known Allergies (Unverified , 04/11/20) Objective Last 24 Hour Vital Signs Date Time Temp Pulse Resp B/P (MAP) Pulse Ox O2 Delivery O2 Flow Rate FiO2 04/24/20 06:18 123 20 103/64 95 04/24/20 04:00 98.2 123 20 103/64 (77) 95 04/24/20 00:00 98.1 118 20 106/66 (79) 96 04/23/20 21:57 98 Nasal Cannula 1.0 24 04/23/20 21:45 98.7 04/23/20 21:00 Nasal Cannula 1.0 04/23/20 20:00 97.2 111 20 92/53 (66) 94 04/23/20 16:00 98.7 86 20 127/77 (94) 99 04/23/20 12:00 97.7 111 20 111/73 (86) 95 Intake and Output 04/23/20 04/24/20 19:00 07:00 Intake Total 290 ml 550 ml Output Total 200 ml Balance 290 ml 350 ml Intake Oral 240 ml IV Total 50 ml 550 ml Output Urine Total 200 ml # Voids 1 Laboratory Tests 04/23/20 22:30: Vancomycin Level Trough 35.1H 04/24/20 05:45: White Blood Count 4.1L, Red Blood Count 3.07L, Hemoglobin 8.2L, Hematocrit 25.6L , Mean Corpuscular Volume 83, Mean Corpuscular Hemoglobin 26.7L, Mean Corpuscular Hemoglobin Concent 32.0, Red Cell Distribution Width 18.0H, Platelet Count 338, Mean Platelet Volume 5.0L, Neutrophils (%) (Auto) 66.2, Lymphocytes (%) (Auto) 18.6L, Monocytes (%) (Auto) 10.7H, Eosinophils (%) (Auto) 3.0, Basophils (%) (Auto) 1.5, Sodium Level 138, Potassium Level 4.5, Chloride Level 107, Carbon Dioxide Level 20L, Anion Gap 11, Blood Urea Nitrogen 9, Creatinine 2.1#H, Estimat Glomerular Filtration Rate 29.8, Glucose Level 83, Calcium Level 7.9L Height (Feet): 5 Height (Inches): 7.00 Weight (Pounds): 150 General Appearance: no apparent distress EENT: normal ENT inspection Neck: supple Cardiovascular: normal rate Respiratory/Chest: decreased breath sounds Abdomen: hypoactive bowel sounds Extremities: non-tender Assessment/Plan Status: stable Assessment/Plan: iron def anemia mild elevated CEA lymphoma on chemo covid positive neg stool ob iv iron fu H&H needs out patient fu for colonoscopy fu oncology CT reviewed colace miralax lactulose may need Patrick Acevedo MD Apr 24, 2020 10:56
--- NOTE | 2020-04-24 11:09 | NUR ---
HAND-OFF: Report given to REA Card.
--- NOTE | 2020-04-24 11:56 | Cardiac Electrophysiology PN ---
Assessment/Plan Assessment/Plan 1. Sinus tachycardia due to sepsis and COVID. Can not use beta-domenico as blood pressure is 100/70. 2. COVID pneumonia. 3. Hypokalemia. 4. Hypomagnesemia. 5. History of non-Hodgkin lymphoma. Subjective Subjective No events in Covid isolation. On Room Air. No Abx Objective Last 24 Hour Vital Signs Date Time Temp Pulse Resp B/P (MAP) Pulse Ox O2 Delivery O2 Flow Rate FiO2 04/24/20 07:39 95 Nasal Cannula 1.0 24 04/24/20 06:18 123 20 103/64 95 04/24/20 04:00 98.2 123 20 103/64 (77) 95 04/24/20 00:00 98.1 118 20 106/66 (79) 96 04/23/20 21:57 98 Nasal Cannula 1.0 24 04/23/20 21:45 98.7 04/23/20 21:00 Nasal Cannula 1.0 04/23/20 20:00 97.2 111 20 92/53 (66) 94 04/23/20 16:00 98.7 86 20 127/77 (94) 99 04/23/20 12:00 97.7 111 20 111/73 (86) 95 Intake and Output 04/23/20 04/24/20 19:00 07:00 Intake Total 290 ml 550 ml Output Total 200 ml Balance 290 ml 350 ml Intake Oral 240 ml IV Total 50 ml 550 ml Output Urine Total 200 ml # Voids 1 Laboratory Tests Test 04/23/20 22:30 04/24/20 05:45 Vancomycin Level Trough 35.1 ug/mL (5.0-12.0) H White Blood Count 4.1 K/UL (4.8-10.8) L Red Blood Count 3.07 M/UL (4.20-5.40) L Hemoglobin 8.2 G/DL (12.0-16.0) L Hematocrit 25.6 % (37.0-47.0) L Mean Corpuscular Volume 83 FL (80-99) Mean Corpuscular Hemoglobin 26.7 PG (27.0-31.0) L Mean Corpuscular Hemoglobin Concent 32.0 G/DL (32.0-36.0) Red Cell Distribution Width 18.0 % (11.6-14.8) H Platelet Count 338 K/UL (150-450) Mean Platelet Volume 5.0 FL (6.5-10.1) L Neutrophils (%) (Auto) 66.2 % (45.0-75.0) Lymphocytes (%) (Auto) 18.6 % (20.0-45.0) L Monocytes (%) (Auto) 10.7 % (1.0-10.0) H Eosinophils (%) (Auto) 3.0 % (0.0-3.0) Basophils (%) (Auto) 1.5 % (0.0-2.0) Sodium Level 138 MMOL/L (136-145) Potassium Level 4.5 MMOL/L (3.5-5.1) Chloride Level 107 MMOL/L (98-107) Carbon Dioxide Level 20 MMOL/L (21-32) L Anion Gap 11 mmol/L (5-15) Blood Urea Nitrogen 9 mg/dL (7-18) Creatinine 2.1 MG/DL (0.55-1.30) #H Estimat Glomerular Filtration Rate 29.8 mL/min (>60) Glucose Level 83 MG/DL (74-106) Calcium Level 7.9 MG/DL (8.5-10.1) L Microbiology Date/Time Source Procedure Growth Status 04/21/20 17:00 Nasopharynx Coronavirus COVID-19 PCR ([facility]) - Final Complete Objective HEAD AND NECK: No JVD. LUNGS: Coarse rhonchi. CARDIOVASCULAR: Regular S1 and S2 with no gallop or murmur. ABDOMEN: Soft. EXTREMITIES: No pitting edema. Ehsan Wan MD Apr 24, 2020 11:56
[2020-04-24 12:00] VITALS: BP 101/69
[2020-04-24 16:00] VITALS: BP 104/62
[2020-04-24] MEDS ORDERED: NS 275ml ONE (16:03)
--- NOTE | 2020-04-24 16:23 | NUR ---
*-*DISCHARGE PLANNING*-* PATIENT HAS BEEN REFERRED TO: MAIRA MAURO P: [phone] S/W MELISSA, PENDING AUTHORIZATION FROM INSURANCE, AND ANTICIPATING ON EXCEPTING PATIENT TOMORROW, WILL FOLLOW UP TOMORROW 04/25/2020 FOR ROOM AVAILABILITY.
--- NOTE | 2020-04-24 16:31 | NUR ---
CASE MANAGEMENT:REVIEW SI;COVID PNEUMONIA 98.2 123 20 99/64 95% 1L NC H/H 8.2/25.6 CR 2.1 IS;IVF NS @ 75 ML/HR MORPHINE SULFATE IV LACTULOSE PO TID ATIVAN IV LOVENOX SQ ALLOPURINOL PO BACLOFEN PO TID MED SURG STATUS DCP;FROM [facility] DC PLANNING TO [facility]
--- NOTE | 2020-04-24 16:50 | Infectious Diseases Prog Note ---
Assessment/Plan Assessment/Plan A) 1) covid-19 virus infection with fevers, saturations stable, CT A/P/C - no obvious pna or abscess, sats stable, no sob, cultures negative 2) hx lymphoma and chemo, anemia, history of port line infection and finishing vancomycin treatment course - end date per patient 3) JIM noted - vancomycin discontinued - sufficient levels to finish treatment course 4) allergies - nkda, fh-nc, sh-negative 5) d/w RN 6) notes and records noted P) 1) no indication for covid-19 tx, sats stable, no sob 2) discontinue vancomycin 3) monitor labs, monitor for hypoxia, monitor fevers, cultures negative 4) will f/u 5) d/w patient Subjective Constitutional: Reports: fatigue; Denies: fever HEENT: Denies: congestion Respiratory: Denies: shortness of breath Cardiovascular: Denies: chest pain Gastrointestinal/Abdominal: Denies: nausea, vomiting, diarrhea Genitourinary: Reports: other - no eaton Neurologic: Denies: headache Psychiatric: Denies: depression Skin: Denies: rash Hematologic: Denies: bleeding Musculoskeletal: Denies: pain Allergies: Coded Allergies: No Known Allergies (Unverified , 04/11/20) Objective Last 24 Hour Vital Signs Date Time Temp Pulse Resp B/P (MAP) Pulse Ox O2 Delivery O2 Flow Rate FiO2 04/24/20 12:00 98.2 110 19 101/69 (80) 95 04/24/20 09:00 Nasal Cannula 1.0 04/24/20 08:00 98.1 114 19 99/64 (76) 95 04/24/20 07:39 95 Nasal Cannula 1.0 24 04/24/20 06:18 123 20 103/64 95 04/24/20 04:00 98.2 123 20 103/64 (77) 95 04/24/20 00:00 98.1 118 20 106/66 (79) 96 04/23/20 21:57 98 Nasal Cannula 1.0 24 04/23/20 21:45 98.7 04/23/20 21:00 Nasal Cannula 1.0 04/23/20 20:00 97.2 111 20 92/53 (66) 94 Height (Feet): 5 Height (Inches): 7.00 Weight (Pounds): 150 General Appearance: no acute distress HEENT: normocephalic, atraumatic, anicteric Respiratory/Chest: lungs clear, normal breath sounds, no respiratory distress Cardiovascular: normal rate, regular rhythm, no gallop/murmur Abdomen: normal bowel sounds, soft, non tender, no organomegaly, non distended Genitourinary: other - no eaton Extremities: no cyanosis Skin: no rash Neurologic/Psychiatric: workers compensation attorney II-XII grossly normal, alert, responsive Lymphatic: no neck adenopathy Musculoskeletal: no effusion Chest x-ray - 04/13/20 - Findings: The cardiomediastinal silhouette is within normal limits. There is diffuse interstitial prominence. No airspace consolidation. No pneumothorax or pleural effusion. No acute osseous abnormality. Right approach PICC terminates in the expected location of mid SVC IMPRESSION: Diffuse interstitial prominence, which is nonspecific but may be related to peribronchial thickening in the setting of infectious/inflammatory airways disease or interstitial edema. CT angio chest: Impression: No evidence of acute pulmonary embolus or other acute thoracic vascular pathology. Areas of consolidation and volume loss with associated bronchiectasis most likely represent areas of scarring and atelectasis. Note definite acute infiltrates. Other findings as noted, including evidence of prior upper thoracic spine surgery, T12 compression fracture deformity and evidence of prior vertebral augmentation procedure, sliding-type hiatal hernia, PICC CT abdomen and pelvis: Impression: Minimal distention of the rectum with feces, could represent mild rectal fecal impaction. Equivocal slight thickening of the rectal wall and stranding of the perirectal fat, if real could indicate mild stercoral proctitis Comminuted fracture of the left femoral head, neck, and intertrochanteric region, ununited. Possibly acute, but abundant soft tissues surrounding the fracture area raises possibility that this could be chronic. Correlate with clinical findings Other findings as noted, including evidence of old T12 vertebral body compression fracture and prior vertebral augmentation procedure, Eaton catheter, subcentimeter low-attenuation lesions which probably represent renal cysts, small sliding-type hiatal hernia Microbiology Date/Time Source Procedure Growth Status 04/21/20 17:00 Nasopharynx Coronavirus COVID-19 PCR ([facility]) - Final Complete 04/18/20 13:05 Blood Blood Culture - Final NO GROWTH AFTER 5 DAYS Complete 04/14/20 00:45 Urine,Clean Catch Urine Culture - Final NO GROWTH AFTER 48 HOURS Complete 04/12/20 01:30 Rectum - Final NO CARBAPENEM-RESISTANT ENTEROBACTERI... Complete Microbiology Date/Time Source Procedure Growth Status 04/21/20 17:00 Nasopharynx Coronavirus COVID-19 PCR ([facility]) - Final Complete Laboratory Tests Test 04/23/20 22:30 04/24/20 05:45 04/24/20 15:46 Vancomycin Level Trough 35.1 ug/mL (5.0-12.0) H White Blood Count 4.1 K/UL (4.8-10.8) L Red Blood Count 3.07 M/UL (4.20-5.40) L Hemoglobin 8.2 G/DL (12.0-16.0) L Hematocrit 25.6 % (37.0-47.0) L Mean Corpuscular Volume 83 FL (80-99) Mean Corpuscular Hemoglobin 26.7 PG (27.0-31.0) L Mean Corpuscular Hemoglobin Concent 32.0 G/DL (32.0-36.0) Red Cell Distribution Width 18.0 % (11.6-14.8) H Platelet Count 338 K/UL (150-450) Mean Platelet Volume 5.0 FL (6.5-10.1) L Neutrophils (%) (Auto) 66.2 % (45.0-75.0) Lymphocytes (%) (Auto) 18.6 % (20.0-45.0) L Monocytes (%) (Auto) 10.7 % (1.0-10.0) H Eosinophils (%) (Auto) 3.0 % (0.0-3.0) Basophils (%) (Auto) 1.5 % (0.0-2.0) Sodium Level 138 MMOL/L (136-145) Potassium Level 4.5 MMOL/L (3.5-5.1) Chloride Level 107 MMOL/L (98-107) Carbon Dioxide Level 20 MMOL/L (21-32) L Anion Gap 11 mmol/L (5-15) Blood Urea Nitrogen 9 mg/dL (7-18) Creatinine 2.1 MG/DL (0.55-1.30) #H Estimat Glomerular Filtration Rate 29.8 mL/min (>60) Glucose Level 83 MG/DL (74-106) Calcium Level 7.9 MG/DL (8.5-10.1) L POC Whole Blood Glucose 261 MG/DL (74-106) H Current Medications Medications (Trade) Dose Ordered Sig/Angelika Route PRN Reason Start Time Stop Time Status Last Admin Dose Admin Acetaminophen (Tylenol) 650 mg Q6H PRN ORAL Mild Pain (Pain Scale 1-3) 04/12/20 02:45 05/12/20 02:44 04/22/20 18:38 Acetaminophen (Tylenol) 650 mg Q6H PRN ORAL FEVER 04/12/20 16:30 05/12/20 16:29 04/19/20 15:43 Acetaminophen/ Hydrocodone Bitart (Clute 10/325) 1 tab Q6H PRN ORAL severe pain 04/22/20 11:00 04/29/20 10:59 04/23/20 13:49 Acetaminophen/ Hydrocodone Bitart (Clute 5/325) 1 tab Q6H PRN ORAL moderate pain 04/22/20 11:00 04/29/20 10:59 Allopurinol (allopurinoL) 300 mg DAILY ORAL 04/12/20 09:00 05/12/20 08:59 04/24/20 09:35 Baclofen (Lioresal) 10 mg THREE TIMES A DAY ORAL 04/12/20 09:00 05/12/20 08:59 04/23/20 12:46 Chlorhexidine Gluconate (Christy-Hex 2%) 1 applic DAILY@2000 TOPIC 04/12/20 20:00 07/11/20 19:59 04/23/20 21:15 Docusate Sodium (Colace) 100 mg TWICE A DAY ORAL 04/20/20 09:00 05/20/20 08:59 04/24/20 09:36 Enoxaparin Sodium (Lovenox) 40 mg DAILY SUBQ 04/18/20 10:00 07/17/20 09:59 04/23/20 09:48 Lactulose (Cephulac) 20 gm THREE TIMES A DAY ORAL 04/21/20 13:00 05/21/20 12:59 04/24/20 09:35 Lorazepam (Ativan 2mg/ml 1ml) 0.5 mg DAILYPRN PRN IV x1dose for anxiety in MRI 04/20/20 13:30 04/27/20 13:29 04/24/20 06:18 Morphine Sulfate (Morphine Sulfate) 2 mg Q3H PRN IVP Severe Pain (Pain Scale 7-10) 04/22/20 23:15 04/29/20 23:14 04/24/20 05:21 Morphine Sulfate (Morphine Sulfate) 4 mg EVERY 3 HOURS PRN IVP SEVERE BREAKTHRU PAIN 04/22/20 18:00 04/29/20 17:59 04/23/20 17:24 Ondansetron HCl (Zofran) 4 mg Q6H PRN IVP Nausea & Vomiting 04/19/20 13:30 05/19/20 13:29 Polyethylene Glycol (Miralax) 17 gm DAILY ORAL 04/20/20 09:00 05/20/20 08:59 04/24/20 09:36 Sodium Chloride 1,000 ml @ 75 mls/hr [id number] IV 04/24/20 11:00 05/24/20 10:59 04/24/20 16:27 Marko Rivera MD Apr 24, 2020 16:50
--- NOTE | 2020-04-24 19:34 | NUR ---
NURSE HAND-OFF: Important Events on Shift:N/A Patient Status: STABLE Diet: REGULAR Pending Orders: N/A Pending Results/Labs:N/A Pending MD notification:N/A Latest Vital Signs: Temperature 98.4 , Pulse 104 , B/P 104 /62 , Respiratory Rate 19 , O2 SAT 98 , Nasal Cannula, O2 Flow Rate 1.0 . Vital Sign Comment: STABLE Latest [place] Fall Score: 35 Fall Risk: Medium Risk Safety Measures: Call light Within Reach, Bed Alarm Zone 1, Side Rails Side Rails x2, Bed position Low and Locked. Fall Precautions: Door Sign Patient Fall Education Report given to CHIKI.
--- NOTE | 2020-04-24 19:36 | NUR ---
NURSE NOTES: Patient in bed awake, able to make needs known. LINDEN PICC line noted; patent and running IVF as ordered. Bed locked and in lowest position. Bed alarm on. Will continue plan of care.
--- NOTE | 2020-04-24 19:58 | Neurology Progress Note ---
Interim History Interim History ROS Limited/Unobtainable: Yes Interim History no new deficits Objective Physical Exam Last Vital Signs Date Time Temp Pulse Resp B/P (MAP) Pulse Ox O2 Delivery O2 Flow Rate FiO2 04/24/20 16:00 98.4 104 19 104/62 (76) 98 04/24/20 09:00 Nasal Cannula 1.0 04/24/20 07:39 24 Laboratory Tests Test 04/23/20 22:30 04/24/20 05:45 04/24/20 15:46 Vancomycin Level Trough 35.1 ug/mL (5.0-12.0) H White Blood Count 4.1 K/UL (4.8-10.8) L Red Blood Count 3.07 M/UL (4.20-5.40) L Hemoglobin 8.2 G/DL (12.0-16.0) L Hematocrit 25.6 % (37.0-47.0) L Mean Corpuscular Volume 83 FL (80-99) Mean Corpuscular Hemoglobin 26.7 PG (27.0-31.0) L Mean Corpuscular Hemoglobin Concent 32.0 G/DL (32.0-36.0) Red Cell Distribution Width 18.0 % (11.6-14.8) H Platelet Count 338 K/UL (150-450) Mean Platelet Volume 5.0 FL (6.5-10.1) L Neutrophils (%) (Auto) 66.2 % (45.0-75.0) Lymphocytes (%) (Auto) 18.6 % (20.0-45.0) L Monocytes (%) (Auto) 10.7 % (1.0-10.0) H Eosinophils (%) (Auto) 3.0 % (0.0-3.0) Basophils (%) (Auto) 1.5 % (0.0-2.0) Sodium Level 138 MMOL/L (136-145) Potassium Level 4.5 MMOL/L (3.5-5.1) Chloride Level 107 MMOL/L (98-107) Carbon Dioxide Level 20 MMOL/L (21-32) L Anion Gap 11 mmol/L (5-15) Blood Urea Nitrogen 9 mg/dL (7-18) Creatinine 2.1 MG/DL (0.55-1.30) #H Estimat Glomerular Filtration Rate 29.8 mL/min (>60) Glucose Level 83 MG/DL (74-106) Calcium Level 7.9 MG/DL (8.5-10.1) L POC Whole Blood Glucose 261 MG/DL (74-106) H Impression/Recommendations Problems: (1) Anemia Status: stable Diagnostic Impression Chronic weakness, LE worse than UEs MRI spine noted, osteoma wo spine compression slplaminectomy COVID 19 pneumonia (febrile, tachycardic) Hx of Lymphoma cont medical support pain control PT as able Renny Bajwa MD Apr 24, 2020 19:58
[2020-04-24 20:00] VITALS: BP 91/58
--- NOTE | 2020-04-24 20:05 | General Progress Note ---
Subjective Allergies: Coded Allergies: No Known Allergies (Unverified , 04/11/20) Subjective No acute events overnight per nursing. Patient afebrile for the past 24 hours. Now on 1L nasl cannula.. Overall improving however. Pain better controlled on PO pain meds. Cr rising. Vanc level elevated. Making good UOP. No cough, SOB. No other complaints. Review of systems: Constitutional: Denies: chills, diaphoresis, malaise, weakness, + fever i ntermittent HEENT: Denies: eye pain, blurred vision, double vision, ear pain, nose pain, throat pain, Cardiovascular: Denies: chest pain, edema, lightheadedness, palpitations Respiratory: SEe HPI Gastrointestinal/Abdominal: Denies: abdominal pain, black stools, blood in stool, constipation, diarrhea, nausea, poor fluid intake vomiting, other Genitourinary: Denies: burning, discharge, frequency, Neurologic/Psychiatric: Denies: headache, numbness, paresthesia, new weakness, other Endocrine: Denies: excessive sweating, flushing, intolerance to cold, MSK: denies joint pains, swelling, stiffness +back pain Hematologic/Lymphatic: Denies: anemia, easy bleeding, easy bruising, Objective Last 24 Hour Vital Signs Date Time Temp Pulse Resp B/P (MAP) Pulse Ox O2 Delivery O2 Flow Rate FiO2 04/24/20 16:00 98.4 104 19 104/62 (76) 98 04/24/20 12:00 98.2 110 19 101/69 (80) 95 04/24/20 09:00 Nasal Cannula 1.0 04/24/20 08:00 98.1 114 19 99/64 (76) 95 04/24/20 07:39 95 Nasal Cannula 1.0 24 04/24/20 06:18 123 20 103/64 95 04/24/20 04:00 98.2 123 20 103/64 (77) 95 04/24/20 00:00 98.1 118 20 106/66 (79) 96 04/23/20 21:57 98 Nasal Cannula 1.0 24 04/23/20 21:45 98.7 04/23/20 21:00 Nasal Cannula 1.0 04/23/20 20:00 97.2 111 20 92/53 (66) 94 Intake and Output 04/23/20 04/24/20 19:00 07:00 Intake Total 290 ml 550 ml Output Total 200 ml Balance 290 ml 350 ml Intake Oral 240 ml IV Total 50 ml 550 ml Output Urine Total 200 ml # Voids 1 Laboratory Tests 04/23/20 22:30: Vancomycin Level Trough 35.1H 04/24/20 05:45: White Blood Count 4.1L, Red Blood Count 3.07L, Hemoglobin 8.2L, Hematocrit 25.6L , Mean Corpuscular Volume 83, Mean Corpuscular Hemoglobin 26.7L, Mean Corpuscular Hemoglobin Concent 32.0, Red Cell Distribution Width 18.0H, Platelet Count 338, Mean Platelet Volume 5.0L, Neutrophils (%) (Auto) 66.2, Lymphocytes (%) (Auto) 18.6L, Monocytes (%) (Auto) 10.7H, Eosinophils (%) (Auto) 3.0, Basophils (%) (Auto) 1.5, Sodium Level 138, Potassium Level 4.5, Chloride Level 107, Carbon Dioxide Level 20L, Anion Gap 11, Blood Urea Nitrogen 9, Creatinine 2.1#H, Estimat Glomerular Filtration Rate 29.8, Glucose Level 83, Calcium Level 7.9L 04/24/20 15:46: POC Whole Blood Glucose 261H Height (Feet): 5 Height (Inches): 7.00 Weight (Pounds): 150 Objective General: WDWN female in NAD, A&O x 4 HEENT: Normocephalic cephalic atraumatic, pupils equal round reactive to light and accommodation, nares patent and no symmetrical, no tonsillar exudates, mucous membranes slighly dry CV: Regular rate regular rhythm, no murmurs, rubs, or gallops + POrt site is C/d/i. Pulm: Lungs clear to auscultation bilaterally. No wheezes, rhonchi, or rales GI: Soft, nontender, nondistended, bowel sounds present + eaton in place, no suprapubic TTP Neuro: CN 2-12 intact bilaterally, no focal signs. Moving all extremities Ext: No lower extremity edema bilaterally Skin: no rashes lesions or ulcers Msk: Joints symmetrical in upper extremity and lower extremity bilaterally, no joint swelling. + left hip pain (slightly) + mid thoracic spinal back pain Lymph: No lymphadenopathy in upper extremity and lower extremity Assessment/Plan Status: stable Assessment/Plan: #Hx of Sepsis 2' port infection #Sepsis due to COVID 19 pneumonia (febrile, tachycardic) #COVID 19+ #Continued fever of unknown origin. COVID vs. cancer related? - appears to have resolved - CTM Fever curve. Could be due to underlying malignancy - Repeat Blood cultures NGTD - Repeat UA: negative - Repeat CXR: Bronchial thickening - Check CT C/A/P including CT angio to eval for PE. : reviewed. No PE. No obvious infection. Incidental left hip fracture - IV fluids as needed - D/W ID. - Port has been removed at OSH - , - ngtd - Cefepime (04/14 - 04/15) - Per patient she is to continue on Vancomycin till 04/25 - D/c vanc - ID Consult, appreciate recs - MRI C/T/L spine w/wo contrast to eval for abscess: No sign of infection, abscess or osteo #L3 lesion on MRI: bone infarct vs. osteoid osteoma vs. less likely infection #Chronic LE weakness #s/p Laminectomy earlier in the year #Chronic Back pain > d/w radiology Dr. Hedrick - d/w ID, Neuro - outpatient f/u with spine surgeon: Dr. Nino in [facility] - appreciate neurology consult: Dr. Bajwa - PT when able - Epps 5/10 Q6hr PRN moderate to severe and IV Morphine for BTP #JIM, pre-renal vs. due to vanc toxicity > Vanc level 35 - urine lytes - Nephrology on board: D/w Dr. hatch - Fluids per nephro #Hypothyroidism, suspect central given TSH and T4 both low - endocrinology consulted: Dr. Fermin to see - FSHpending. #left hip fracture, suspect chronic > Patient states she fell 5 months ago but no recent falls. Also had hard fall on coccyx in 2018. Minimal pain in left hip > Patient states she has not walked for months but is not paraplegic. Severe debilitation. - appreciate ortho eval: Dr. Payan. Given patient bed bound risks > benefits. 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 History of lymphoma per patient and is receiving chemo tx, last known to be February 2020. - 2U PRBCs ordered and transfused on admission - Hb Stable - Rectic count wnl, Iron and Iron sat low, Ferritin wnl - No active signs of bleeding - Hematology consulted, appreciate recs - CTM for signs of bleeding - Patient will need colonoscopy as outpatient in the future : Gi Consulted; Dr. Carter #sinus tachycardia, due to COVID pna - monitor EKG - Cardiology consulted: Dr. Wan #proctitis #Constipation- > improving - Aggressive bowel regimen - GI aware: Appreciate recommendations - Colace, miralax, - s/p enema and ducolax with improvement #chronic urinary retention - since patient had spine surgery earlier in the year - unsure if has true urinary retention - d/w nephrology -> voiding trial, however patient refused. #Hypokalemia #hypomagnesia - Lytes replaced - appreciate nephro management FENPPX DVTPPX: per primary. Consider changing to HSQ if Cr does not imrp Fluids: per nephro Diet: regular Lines: PIV PT/OT: pending Code status:Full Dispo: back to SNF Reason for Continued Hospitalization: hypoxia, fever Dispo - Discharge back to SNF. MIPS (Merit-based Incentive Payment System) Applicable CPT: 44759, 68703 CHECK ALL THAT ARE MET: [] Measure #5 (CHF): All ages. Prescribe LINDSAY/ARB upon discharge for patients with left ventricular systolic dysfunction. If not, the reason is clearly documented in the medical chart [] Measure #8 (CHF): All ages. Prescribe a beta domenico upon discharge for pa tients with left ventricular systolic dysfunction. If not, the reason is clearly documented in the medical chart. [x] Measure #47: Advance care plan or surrogate decision maker documented in the medical record. [x] Measure #130 The provider has documented, updated, or reviewed the patients current medication list and has documented it in the patients note. [] Measure #374 (All): Send report to referring provider. [] Measure #407(Sepsis due to MSSA bacteremia): Age 18+ Patient treated with a beta-lactam antibiotic (Nafcillin, Oxacillin or Cefazolin) as definitive therapy. MEDICAL COMPLEXITYHigh complexity medical decision making (need 2/3 categories)Problem - need 4 points [x]Acute/new problem with new plan for workup (4 points, 1 max) [] Acute/new problem without additional workup (3 points, 1 max) [] Unstable chronic problem actively being managed (2 point each, 2 max) [x] Stable chronic problem actively being managed (1 point each, 2 max) [x] Self-limited/transient process (constipation, muscle ache, etc) (1 point each, 2 max) Data - need 4 points [x] Reviewed labs/imaging studies (1 points, 2 max) [x] Independent review of imaging (EKG, xrays, etc) (2 points, 2 max) [x] Discussed case with consult/other MD/RN (2 points, 2 max) High Risk - qualify if have one of the following: [x] Severe exacerbation of acute problem, acute mental status change, IV narcot ics, monitoring drug levels (vancomycin, INR, tacrolimus etc) I spent 38 minutes on this patient's case, and 2220mins was dedicated to counseling and/or care coordination. Discussed with nephrology, ortho, RN at bedside. Time of note may not reflect time of encounter Jus Brunner D.O. Apr 24, 2020 20:05
[2020-04-24] MEDS: Dyna-Hex 2% Top Sol 2oz TOPIC SCH (21:32)
[2020-04-24] MEDS: Heparin 5000 units/ml inj SUBQ SCH (21:46)
[2020-04-25] VITALS (7 sets, daily range): BP systolic 97–118; BP diastolic 57–75
[2020-04-25] MEDS: Heparin 5000 units/ml inj SUBQ SCH ×3 (05:21→21:43)
--- NOTE | 2020-04-25 06:39 | General Progress Note ---
Subjective Allergies: Coded Allergies: No Known Allergies (Unverified , 04/11/20) Subjective events noted interval notes reviewed Objective Last 24 Hour Vital Signs Date Time Temp Pulse Resp B/P (MAP) Pulse Ox O2 Delivery O2 Flow Rate FiO2 04/25/20 04:00 89.1 112 19 111/67 (82) 96 04/25/20 00:00 97.9 107 19 101/71 (81) 98 04/24/20 21:00 Nasal Cannula 1.0 04/24/20 20:36 96 Nasal Cannula 1.0 24 04/24/20 20:00 98.1 128 19 91/58 (69) 96 04/24/20 16:00 98.4 104 19 104/62 (76) 98 04/24/20 12:00 98.2 110 19 101/69 (80) 95 04/24/20 09:00 Nasal Cannula 1.0 04/24/20 08:00 98.1 114 19 99/64 (76) 95 04/24/20 07:39 95 Nasal Cannula 1.0 24 Intake and Output 04/24/20 04/25/20 19:00 07:00 Intake Total 50 ml 200 ml Output Total 100 ml 150 ml Balance -50 ml 50 ml Intake Oral 200 ml IV Total 50 ml Output Urine Total 100 ml 150 ml # Voids 1 Laboratory Tests 04/24/20 15:46: POC Whole Blood Glucose 261H Height (Feet): 5 Height (Inches): 7.00 Weight (Pounds): 150 Objective Current Medications Medications (Trade) Dose Ordered Sig/Angelika Route PRN Reason Start Time Stop Time Status Last Admin Dose Admin Acetaminophen (Tylenol) 650 mg Q6H PRN ORAL Mild Pain (Pain Scale 1-3) 04/12/20 02:45 05/12/20 02:44 04/22/20 18:38 Acetaminophen (Tylenol) 650 mg Q6H PRN ORAL FEVER 04/12/20 16:30 05/12/20 16:29 04/19/20 15:43 Acetaminophen/ Hydrocodone Bitart ([place] 10/325) 1 tab Q6H PRN ORAL severe pain 04/22/20 11:00 04/29/20 10:59 04/23/20 13:49 Acetaminophen/ Hydrocodone Bitart ([place] 5/325) 1 tab Q6H PRN ORAL moderate pain 04/22/20 11:00 04/29/20 10:59 Allopurinol (allopurinoL) 300 mg DAILY ORAL 04/12/20 09:00 05/12/20 08:59 04/24/20 09:35 Baclofen (Lioresal) 10 mg THREE TIMES A DAY ORAL 04/12/20 09:00 05/12/20 08:59 04/23/20 12:46 Chlorhexidine Gluconate (Christy-Hex 2%) 1 applic DAILY@2000 TOPIC 04/12/20 20:00 07/11/20 19:59 04/24/20 21:32 Docusate Sodium (Colace) 100 mg TWICE A DAY ORAL 04/20/20 09:00 05/20/20 08:59 04/24/20 09:36 Heparin Sodium (Porcine) (Heparin 5000 units/ml) 5,000 units EVERY 8 HOURS SUBQ 04/24/20 22:00 06/08/20 21:59 Lactulose (Cephulac) 20 gm THREE TIMES A DAY ORAL 04/21/20 13:00 05/21/20 12:59 04/24/20 09:35 Lorazepam (Ativan 2mg/ml 1ml) 0.5 mg DAILYPRN PRN IV x1dose for anxiety in MRI 04/20/20 13:30 04/27/20 13:29 04/24/20 06:18 Morphine Sulfate (Morphine Sulfate) 2 mg Q3H PRN IVP Severe Pain (Pain Scale 7-10) 04/22/20 23:15 04/29/20 23:14 04/24/20 05:21 Morphine Sulfate (Morphine Sulfate) 4 mg EVERY 3 HOURS PRN IVP SEVERE BREAKTHRU PAIN 04/22/20 18:00 04/29/20 17:59 04/23/20 17:24 Ondansetron HCl (Zofran) 4 mg Q6H PRN IVP Nausea & Vomiting 04/19/20 13:30 05/19/20 13:29 Polyethylene Glycol (Miralax) 17 gm DAILY ORAL 04/20/20 09:00 05/20/20 08:59 04/24/20 09:36 Sodium Chloride 1,000 ml @ 75 mls/hr [id number] IV 04/24/20 11:00 05/24/20 10:59 04/24/20 16:27 Assessment/Plan Problem List: (1) Abnormal thyroid function test ICD Codes: R94.6 - Abnormal results of thyroid function studies SNOMED: 388056399 (2) Anemia ICD Codes: D64.9 - Anemia, unspecified SNOMED: 672089661 Qualifiers: Qualified Codes: D64.9 - Anemia, unspecified Status: stable Assessment/Plan: repeat TSH still low but improved repeat free T4 normalized free T3 is low => this thyroid lab abnormality is consistent with "transient central hypothyroidism" due to state of illness => no need to start thyroxine FSH is normal - she is still getting her menstrual cycles I sign off Ken Fermin MD Apr 25, 2020 06:39
--- NOTE | 2020-04-25 06:44 | Hematology/Onc Progress Note ---
Assessment/Plan Assessment/Plan # Leukopenia COVID19++++++++++ --> hep and hiv order as needed --> wbc 4-->3-->2.9->2->4.6--4.1 --> Neupogen 300 x1 04/21 --> isolation if anc<500 # Non-Hodgkins Lymphoma is s/p chemotherapy in the past --> to return to [facility] for further treatment --> likely for ct/pet as outpatient --> CT Here shows no e/o disease --> imaging has been reviewed thus far --> end date of 04/2020 # Anemia likely of chronic disease -- does not appear to have iron deficiency --> transfuse as needed, tibc and ferritin are cw acd --> hgb 7.8-->8.6-->8.5-->8.4 --> no hemolysis is noted --> s/p transfusion on admission # Covid 19++ with SIRS (febrile, tachycardic) --> per pulm and id --> CXR with diffuse non-specific inflammatory/infectious process --> s/p Cefepime (04/14 - 04/15) # Hypokalemia # Hypomagnesia # Chronic Back pain # Full Code Appreciate consultation and reagan Rn Subjective HEENT: Denies: no symptoms, eye pain, blurred vision, tearing, double vision, ear pain, ear discharge, nose pain, nose congestion, throat pain, throat swe lling, mouth pain, mouth swelling, other Cardiovascular: Denies: no symptoms, chest pain, edema, irregular heart rate, lightheadedness, palpitations, syncope, other Respiratory: Denies: no symptoms, cough, shortness of breath, SOB with excertion, SOB at rest, sputum, wheezing, other Gastrointestinal/Abdominal: Denies: no symptoms, abdomen distended, abdominal pain, black stools, tarry stools, blood in stool, constipated, diarrhea, difficulty swallowing, nausea, poor appetite, poor fluid intake, rectal bleeding, vomiting, other Genitourinary: Denies: no symptoms, burning, discharge, frequency, flank pain, hematuria, incontinence, pain, urgency, other Neurologic/Psychiatric: Denies: no symptoms, anxiety, depressed, emotional problems, headache, numbness, paresthesia, pre-existing deficit, seizure, tingling, tremors, weakness, other Endocrine: Denies: no symptoms, excessive sweating, flushing, intolerance to cold, intolerance to heat, increased hunger, increased thirst, increased urine, unexplained weight gain, unexplained weight loss, other Hematologic/Lymphatic: Denies: no symptoms, anemia, easy bleeding, easy bruising, adenopathy, other Allergies: Coded Allergies: No Known Allergies (Unverified , 04/11/20) Subjective 04/17 is on room air, more comfortable, potential dc to snf 04/18 labs reviewed, no bleeding, meds noted, no night sweats 04/19 sleeping comfortably, no major events, no night sweats 04/20 meds noted, labs reviewed, wbc 2.9, hep and hiv is neg 04/21 labs reviewed, in am, the wbc was 2, to get neupogen x 1 dose now 04/23 labs noted, no bleeding, wbc 4, hgb remains low, but holding off trans 04/24 labs are pending for am, meds reviewed, no bleeding 04/25 meds reviewed, labs noted, no night sweats, dw rn at bedside, no new events Objective Objective Current Medications Medications (Trade) Dose Ordered Sig/Angelika Route PRN Reason Start Time Stop Time Status Last Admin Dose Admin Acetaminophen (Tylenol) 650 mg Q6H PRN ORAL Mild Pain (Pain Scale 1-3) 04/12/20 02:45 05/12/20 02:44 04/22/20 18:38 Acetaminophen (Tylenol) 650 mg Q6H PRN ORAL FEVER 04/12/20 16:30 05/12/20 16:29 04/19/20 15:43 Acetaminophen/ Hydrocodone Bitart ([place] 10/325) 1 tab Q6H PRN ORAL severe pain 04/22/20 11:00 04/29/20 10:59 04/23/20 13:49 Acetaminophen/ Hydrocodone Bitart ([place] 5/325) 1 tab Q6H PRN ORAL moderate pain 04/22/20 11:00 04/29/20 10:59 Allopurinol (allopurinoL) 300 mg DAILY ORAL 04/12/20 09:00 05/12/20 08:59 04/24/20 09:35 Baclofen (Lioresal) 10 mg THREE TIMES A DAY ORAL 04/12/20 09:00 05/12/20 08:59 04/23/20 12:46 Chlorhexidine Gluconate (Christy-Hex 2%) 1 applic DAILY@2000 TOPIC 04/12/20 20:00 07/11/20 19:59 04/24/20 21:32 Docusate Sodium (Colace) 100 mg TWICE A DAY ORAL 04/20/20 09:00 05/20/20 08:59 04/24/20 09:36 Heparin Sodium (Porcine) (Heparin 5000 units/ml) 5,000 units EVERY 8 HOURS SUBQ 04/24/20 22:00 06/08/20 21:59 Lactulose (Cephulac) 20 gm THREE TIMES A DAY ORAL 04/21/20 13:00 05/21/20 12:59 04/24/20 09:35 Lorazepam (Ativan 2mg/ml 1ml) 0.5 mg DAILYPRN PRN IV x1dose for anxiety in MRI 04/20/20 13:30 04/27/20 13:29 04/24/20 06:18 Morphine Sulfate (Morphine Sulfate) 2 mg Q3H PRN IVP Severe Pain (Pain Scale 7-10) 04/22/20 23:15 04/29/20 23:14 04/24/20 05:21 Morphine Sulfate (Morphine Sulfate) 4 mg EVERY 3 HOURS PRN IVP SEVERE BREAKTHRU PAIN 04/22/20 18:00 04/29/20 17:59 04/23/20 17:24 Ondansetron HCl (Zofran) 4 mg Q6H PRN IVP Nausea & Vomiting 04/19/20 13:30 05/19/20 13:29 Polyethylene Glycol (Miralax) 17 gm DAILY ORAL 04/20/20 09:00 05/20/20 08:59 04/24/20 09:36 Sodium Chloride 1,000 ml @ 75 mls/hr [id number] IV 04/24/20 11:00 05/24/20 10:59 04/24/20 16:27 Last 24 Hour Vital Signs Date Time Temp Pulse Resp B/P (MAP) Pulse Ox O2 Delivery O2 Flow Rate FiO2 04/25/20 04:00 89.1 112 19 111/67 (82) 96 04/25/20 00:00 97.9 107 19 101/71 (81) 98 04/24/20 21:00 Nasal Cannula 1.0 04/24/20 20:36 96 Nasal Cannula 1.0 24 04/24/20 20:00 98.1 128 19 91/58 (69) 96 04/24/20 16:00 98.4 104 19 104/62 (76) 98 04/24/20 12:00 98.2 110 19 101/69 (80) 95 04/24/20 09:00 Nasal Cannula 1.0 04/24/20 08:00 98.1 114 19 99/64 (76) 95 04/24/20 07:39 95 Nasal Cannula 1.0 24 04/24/20 06:18 123 20 103/64 95 04/24/20 04:00 98.2 123 20 103/64 (77) 95 04/24/20 00:00 98.1 118 20 106/66 (79) 96 04/23/20 21:57 98 Nasal Cannula 1.0 24 04/23/20 21:45 98.7 04/23/20 21:00 Nasal Cannula 1.0 04/23/20 20:00 97.2 111 20 92/53 (66) 94 04/23/20 16:00 98.7 86 20 127/77 (94) 99 04/23/20 12:00 97.7 111 20 111/73 (86) 95 04/23/20 09:00 Nasal Cannula 1.0 04/23/20 08:00 95.7 83 20 121/71 (88) 95 Intake and Output 04/24/20 04/25/20 19:00 07:00 Intake Total 50 ml 200 ml Output Total 100 ml 150 ml Balance -50 ml 50 ml Intake Oral 200 ml IV Total 50 ml Output Urine Total 100 ml 150 ml # Voids 1 Labs Test 04/23/20 06:30 04/23/20 22:30 04/24/20 05:45 04/24/20 15:46 White Blood Count 4.6 K/UL (4.8-10.8) 4.1 K/UL (4.8-10.8) Red Blood Count 3.06 M/UL (4.20-5.40) 3.07 M/UL (4.20-5.40) Hemoglobin 8.3 G/DL (12.0-16.0) 8.2 G/DL (12.0-16.0) Hematocrit 24.6 % (37.0-47.0) 25.6 % (37.0-47.0) Mean Corpuscular Volume 80 FL (80-99) 83 FL (80-99) Mean Corpuscular Hemoglobin 27.0 PG (27.0-31.0) 26.7 PG (27.0-31.0) Mean Corpuscular Hemoglobin Concent 33.6 G/DL (32.0-36.0) 32.0 G/DL (32.0-36.0) Red Cell Distribution Width 18.4 % (11.6-14.8) 18.0 % (11.6-14.8) Platelet Count 367 K/UL (150-450) 338 K/UL (150-450) Mean Platelet Volume 5.3 FL (6.5-10.1) 5.0 FL (6.5-10.1) Neutrophils (%) (Auto) 77.0 % (45.0-75.0) 66.2 % (45.0-75.0) Lymphocytes (%) (Auto) 14.1 % (20.0-45.0) 18.6 % (20.0-45.0) Monocytes (%) (Auto) 6.0 % (1.0-10.0) 10.7 % (1.0-10.0) Eosinophils (%) (Auto) 1.3 % (0.0-3.0) 3.0 % (0.0-3.0) Basophils (%) (Auto) 1.6 % (0.0-2.0) 1.5 % (0.0-2.0) Sodium Level 139 MMOL/L (136-145) 138 MMOL/L (136-145) Potassium Level 3.7 MMOL/L (3.5-5.1) 4.5 MMOL/L (3.5-5.1) Chloride Level 106 MMOL/L (98-107) 107 MMOL/L (98-107) Carbon Dioxide Level 24 MMOL/L (21-32) 20 MMOL/L (21-32) Anion Gap 9 mmol/L (5-15) 11 mmol/L (5-15) Blood Urea Nitrogen 5 mg/dL (7-18) 9 mg/dL (7-18) Creatinine 1.1 MG/DL (0.55-1.30) 2.1 MG/DL (0.55-1.30) Estimat Glomerular Filtration Rate > 60 mL/min (>60) 29.8 mL/min (>60) Glucose Level 91 MG/DL (74-106) 83 MG/DL (74-106) Calcium Level 8.3 MG/DL (8.5-10.1) 7.9 MG/DL (8.5-10.1) Total Bilirubin 0.5 MG/DL (0.2-1.0) Aspartate Amino Transf (AST/SGOT) 20 U/L (15-37) Alanine Aminotransferase (ALT/SGPT) 9 U/L (12-78) Alkaline Phosphatase 121 U/L (46-116) Total Protein 5.9 G/DL (6.4-8.2) Albumin 2.5 G/DL (3.4-5.0) Globulin 3.4 g/dL Albumin/Globulin Ratio 0.7 (1.0-2.7) Vancomycin Level Trough 35.1 ug/mL (5.0-12.0) POC Whole Blood Glucose 261 MG/DL (74-106) Height (Feet): 5 Height (Inches): 7.00 Weight (Pounds): 150 Objective Gen: nad Pulm: ctab, no cwr CV: rrr Abd: soft, nt Ext: no cce Martinez Hill MD Apr 25, 2020 06:44
[2020-04-25 07:55] LABS: HEMOGLOBIN 7.6 G/DL (12.0-16.0); MEAN CORPUSCULAR VOLUME 84 FL (80-99); PLATELET COUNT 347 K/UL (150-450); RED BLOOD COUNT 2.85 M/UL (4.20-5.40); RED CELL DISTRIBUTION WIDTH 18.9 % (11.6-14.8); WHITE BLOOD COUNT 3.3 K/UL (4.8-10.8)
--- NOTE | 2020-04-25 08:20 | NUR ---
NURSE HAND-OFF: Important Events on Shift: No events Patient Status: Stable Diet: Reg Pending Orders: N/A Pending Results/Labs: BMP, CBC Pending MD notification: N/A Latest Vital Signs: Temperature 89.1 , Pulse 112 , B/P 111 /67 , Respiratory Rate 19 , O2 SAT 96 , Nasal Cannula, O2 Flow Rate 1.0 . Vital Sign Comment: Latest [place] Fall Score: 35 Fall Risk: Medium Risk Safety Measures: Call light Within Reach, Bed Alarm Zone 1, Side Rails Side Rails x2, Bed position Low and Locked. Fall Precautions: Door Sign Patient Fall Education Report given to REA Feng
[2020-04-25 08:22] LABS: CALCIUM 8.2 MG/DL (8.5-10.1); CREATININE 3.7 MG/DL (0.55-1.30); POTASSIUM 4.1 MMOL/L (3.5-5.1)
--- NOTE | 2020-04-25 08:30 | NUR ---
NURSE NOTES: Patient awake and alert and oriented,respirations unlabored.IV fluids infusing as ordered,double lumen picc line ijntact. .Morales catheter is in place and draining ,noted small amount of yellow urine noted in collection bag,will monitor.Breakfast at bedside.Bed alarm is on,call light within reach.
--- NOTE | 2020-04-25 08:43 | Pulmonology Progress Note ---
Subjective ROS Limited/Unobtainable: Yes Interval Events: Hgb 7.6 Constitutional: Denies: fever HEENT: Repors: no symptoms; Denies: visual change, discharge Respiratory: Reports: no symptoms, dry cough - intermittent dry cough; Denies: shortness of breath, wheezing Cardiovascular: Reports: no symptoms Gastrointestinal/Abdominal: Denies: nausea, vomiting, diarrhea Psychiatric: Denies: depression Skin: Denies: rash Musculoskeletal: Denies: pain Allergies: Coded Allergies: No Known Allergies (Unverified , 04/11/20) Objective Last 24 Hour Vital Signs Date Time Temp Pulse Resp B/P (MAP) Pulse Ox O2 Delivery O2 Flow Rate FiO2 04/25/20 04:00 89.1 112 19 111/67 (82) 96 04/25/20 00:00 97.9 107 19 101/71 (81) 98 04/24/20 21:00 Nasal Cannula 1.0 04/24/20 20:36 96 Nasal Cannula 1.0 24 04/24/20 20:00 98.1 128 19 91/58 (69) 96 04/24/20 16:00 98.4 104 19 104/62 (76) 98 04/24/20 12:00 98.2 110 19 101/69 (80) 95 04/24/20 09:00 Nasal Cannula 1.0 Intake and Output 04/24/20 04/25/20 19:00 07:00 Intake Total 50 ml 200 ml Output Total 100 ml 150 ml Balance -50 ml 50 ml Intake Oral 200 ml IV Total 50 ml Output Urine Total 100 ml 150 ml # Voids 1 Objective 04/25 no change respiratory-salomon 04/24 no change 04/23 on and off 1 lpm NC 04/22 saturating well on and off 1 lpm NC 04/21 no change 04/20 pt saturating well on 2 lpm NC; NAD 04/19 pt saturating well on 2 lpm NC; NAD 04/18 pt saturating well on 2 lpm NC General Appearance: WD/WN, no acute distress HEENT: normocephalic, atraumatic Respiratory: lungs clear Cardiovascular: normal rate, regular rhythm Abdomen: soft, non tender Genitourinary: other - Morales Extremities: no edema Laboratory Tests 04/24/20 15:46: POC Whole Blood Glucose 261H 04/25/20 05:45: White Blood Count 3.3L, Red Blood Count 2.85L, Hemoglobin 7.6L, Hematocrit 24.0L , Mean Corpuscular Volume 84, Mean Corpuscular Hemoglobin 26.8L, Mean Corpuscular Hemoglobin Concent 31.8L, Red Cell Distribution Width 18.9H, Platelet Count 347, Mean Platelet Volume 5.2L, Neutrophils (%) (Auto) , Lymphocytes (%) (Auto) , Monocytes (%) (Auto) , Eosinophils (%) (Auto) , Basophils (%) (Auto) , Neutrophils % (Manual) [Pending], Lymphocytes % (Manual) [Pending], Platelet Estimate [Pending], Platelet Morphology [Pending], Sodium Level 138, Potassium Level 4.1, Chloride Level 107, Carbon Dioxide Level 21, Anion Gap 11, Blood Urea Nitrogen 16, Creatinine 3.7#H, Estimat Glomerular Filtration Rate 15.5, Glucose Level 72L, Calcium Level 8.2L Current Medications Medications (Trade) Dose Ordered Sig/Angelika Route PRN Reason Start Time Stop Time Status Last Admin Dose Admin Acetaminophen (Tylenol) 650 mg Q6H PRN ORAL Mild Pain (Pain Scale 1-3) 04/12/20 02:45 05/12/20 02:44 04/22/20 18:38 Acetaminophen (Tylenol) 650 mg Q6H PRN ORAL FEVER 04/12/20 16:30 05/12/20 16:29 04/19/20 15:43 Acetaminophen/ Hydrocodone Bitart (Shafer 10/325) 1 tab Q6H PRN ORAL severe pain 04/22/20 11:00 04/29/20 10:59 04/23/20 13:49 Acetaminophen/ Hydrocodone Bitart (Shafer 5/325) 1 tab Q6H PRN ORAL moderate pain 04/22/20 11:00 04/29/20 10:59 Allopurinol (allopurinoL) 300 mg DAILY ORAL 04/12/20 09:00 05/12/20 08:59 04/24/20 09:35 Baclofen (Lioresal) 10 mg THREE TIMES A DAY ORAL 04/12/20 09:00 05/12/20 08:59 04/23/20 12:46 Chlorhexidine Gluconate (Christy-Hex 2%) 1 applic DAILY@1999 TOPIC 04/12/20 20:00 07/11/20 19:59 04/24/20 21:32 Docusate Sodium (Colace) 100 mg TWICE A DAY ORAL 04/20/20 09:00 05/20/20 08:59 04/24/20 09:36 Heparin Sodium (Porcine) (Heparin 5000 units/ml) 5,000 units EVERY 8 HOURS SUBQ 04/24/20 22:00 06/08/20 21:59 Lactulose (Cephulac) 20 gm THREE TIMES A DAY ORAL 04/21/20 13:00 05/21/20 12:59 04/24/20 09:35 Lorazepam (Ativan 2mg/ml 1ml) 0.5 mg DAILYPRN PRN IV x1dose for anxiety in MRI 04/20/20 13:30 04/27/20 13:29 04/24/20 06:18 Morphine Sulfate (Morphine Sulfate) 2 mg Q3H PRN IVP Severe Pain (Pain Scale 7-10) 04/22/20 23:15 04/29/20 23:14 04/24/20 05:21 Morphine Sulfate (Morphine Sulfate) 4 mg EVERY 3 HOURS PRN IVP SEVERE BREAKTHRU PAIN 04/22/20 18:00 04/29/20 17:59 04/23/20 17:24 Ondansetron HCl (Zofran) 4 mg Q6H PRN IVP Nausea & Vomiting 04/19/20 13:30 05/19/20 13:29 Polyethylene Glycol (Miralax) 17 gm DAILY ORAL 04/20/20 09:00 05/20/20 08:59 04/24/20 09:36 Sodium Chloride 1,000 ml @ 75 mls/hr [id number] IV 04/24/20 11:00 05/24/20 10:59 04/24/20 16:27 Assessment/Plan Assessment/Plan 1. COVID-19 positivity. - COVID-19 PCR 04/21 positive: cont isolation - no indication for any steroid or remdesivir given her normoxemia at this time - s/p cefepime - CXR with diffuse non-specific inflammatory/infectious process - cont supplemental oxygen as needed - CT A/P/C - no obvious pna or abscess, cultures negative 2. Immunocompromised state with history of non-Hodgkin lymphoma. - on chemo - h/o port line infection; s/p Vanco 3. Hx of fever.- now appears resolved 4. Hx of Hypertension. 5. Gout. 6. Anemia - s/p transfusion DVT ppx - on SCD - pt refusing heparin and lovenox Low TSH; improving - Dr. Fermin following - no need for levothyroxine per Dr. 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
--- NOTE | 2020-04-25 08:53 | Nephrology Progress Note ---
Assessment/Plan Plan #acute kidney injury likely due to vanco toxicity #hypokalemia- #hypomagnesemia #Acute on chronic anemia #h/p non- hodgkins lymphoma #possible sepsis #+ COVID #Femoral intertrochanteric hip fracture. - NS at 75cc/hr - Pulmonary eval - prbc transfusion prn - replete lytes - hemo-onc eval - ID eval - continue with IV abx - monitor CBC - avoid nephrotoxins - ortho eval - spine eval for L3 acute on chronic bone infarct, less likely neoplasm or infection? times spent 65 min Subjective ROS Limited/Unobtainable: No Constitutional: Reports: weakness Subjective Cr uptrending remains on IVF hip fracture noted ortho consulted Impression: Minimal distention of the rectum with feces, could represent mild rectal fecal impaction. Equivocal slight thickening of the rectal wall and stranding of the perirectal fat, if real could indicate mild stercoral proctitis Comminuted fracture of the left femoral head, neck, and intertrochanteric region, ununited. Possibly acute, but abundant soft tissues surrounding the fracture area raises possibility that this could be chronic. Correlate with clinical findings Other findings as noted, including evidence of old T12 vertebral body compression fracture and prior vertebral augmentation procedure, Morales catheter, subcentimeter low-attenuation lesions which probably represent renal cysts, small sliding-type hiatal hernia Impression: Unusual signal abnormality of the posterolateral aspect of the L3 vertebral body on the right. This appears to be confined to the vertebral body marrow space. Prior CT scan in retrospect demonstrates sclerotic areas in the same location. Most likely differential consideration is an atypical hemangioma. Other possibilities include acute on chronic bone infarct, less likely neoplasm or infection No other unusual contrast enhancement. No findings to suggest discitis or epidural abscess. Objective Objective Last 24 Hour Vital Signs Date Time Temp Pulse Resp B/P (MAP) Pulse Ox O2 Delivery O2 Flow Rate FiO2 04/25/20 08:41 98.2 114 19 109/69 (82) 96 04/25/20 04:00 89.1 112 19 111/67 (82) 96 04/25/20 00:00 97.9 107 19 101/71 (81) 98 04/24/20 21:00 Nasal Cannula 1.0 04/24/20 20:36 96 Nasal Cannula 1.0 24 12/21/20 20:00 98.1 128 19 91/58 (69) 96 04/24/20 16:00 98.4 104 19 104/62 (76) 98 04/24/20 12:00 98.2 110 19 101/69 (80) 95 04/24/20 09:00 Nasal Cannula 1.0 Intake and Output 04/24/20 04/25/20 19:00 07:00 Intake Total 50 ml 200 ml Output Total 100 ml 150 ml Balance -50 ml 50 ml Intake Oral 200 ml IV Total 50 ml Output Urine Total 100 ml 150 ml # Voids 1 Laboratory Tests 04/24/20 15:46: POC Whole Blood Glucose 261H 04/25/20 05:45: White Blood Count 3.3L, Red Blood Count 2.85L, Hemoglobin 7.6L, Hematocrit 24.0L , Mean Corpuscular Volume 84, Mean Corpuscular Hemoglobin 26.8L, Mean Corpuscular Hemoglobin Concent 31.8L, Red Cell Distribution Width 18.9H, Platelet Count 347, Mean Platelet Volume 5.2L, Neutrophils (%) (Auto) , Lymphocytes (%) (Auto) , Monocytes (%) (Auto) , Eosinophils (%) (Auto) , Basophils (%) (Auto) , Neutrophils % (Manual) [Pending], Lymphocytes % (Manual) [Pending], Platelet Estimate [Pending], Platelet Morphology [Pending], Sodium Level 138, Potassium Level 4.1, Chloride Level 107, Carbon Dioxide Level 21, Anion Gap 11, Blood Urea Nitrogen 16, Creatinine 3.7#H, Estimat Glomerular Filtration Rate 15.5, Glucose Level 72L, Calcium Level 8.2L Height (Feet): 5 Height (Inches): 7.00 Weight (Pounds): 150 Kallie Dykes M.D. Apr 25, 2020 08:53
[2020-04-25] MEDS: Lactulose 20gm/30ml UDC ORAL SCH ×3 (08:54→18:00)
[2020-04-25] MEDS: Docusate 100mg cap ORAL SCH ×2 (08:55→19:24)
[2020-04-25] MEDS: Miralax 17gm pkt ORAL SCH (08:57)
--- NOTE | 2020-04-25 11:22 | NUR ---
RD ASSESSMENT & RECOMMENDATIONS SEE CARE ACTIVITY FOR COMPLETE ASSESSMENT DAILY ESTIMATED NEEDS: Needs based on Wound/ 68kg 25-30 kcals/kg 4079-2877 total kcals 1.25-1.5 g protein/kg 85-102 g total protein 25-30 mL/kg 3860-0122 total fluid mLs NUTRITION DIAGNOSIS: Increased kcal/prot/micronutrients needs R/T wound healing as evidenced by pt admitted w/ sacral wound, stage 2 per documentation. CURRENT DIET:REGULAR PO DIET RECOMMENDATIONS: Maintain Regular diet/ texture as tolerated ADDITIONAL RECOMMENDATIONS: * Calibrated bedscale wt * Wound healing: MVI x 1, Vit C 250mg QD LELO BID * Maintain Ensure Enlive BID, increase to TID w/ good acceptance * Monitor lytes, replete as needed * snacks in b/w meals * Monitor renal fxn: creat trending up
--- NOTE | 2020-04-25 11:23 | Cardiac Electrophysiology PN ---
Assessment/Plan Assessment/Plan 1. Sinus tachycardia due to sepsis, anemia and COVID. Can not use beta-domeinco as blood pressure is 100/70. 2. COVID pneumonia. 3. Hypokalemia. 4. Hypomagnesemia. 5. History of non-Hodgkin lymphoma. 6. Leukopenia and anemia. FU Dr Annie BUTLER RN Subjective Subjective No events in Covid isolation. On Room Air. Hb still 7.6 Objective Last 24 Hour Vital Signs Date Time Temp Pulse Resp B/P (MAP) Pulse Ox O2 Delivery O2 Flow Rate FiO2 04/25/20 09:09 Room Air 04/25/20 08:41 98.2 114 19 109/69 (82) 96 04/25/20 04:00 89.1 112 19 111/67 (82) 96 04/25/20 00:00 97.9 107 19 101/71 (81) 98 04/24/20 21:00 Nasal Cannula 1.0 04/24/20 20:36 96 Nasal Cannula 1.0 24 04/24/20 20:00 98.1 128 19 91/58 (69) 96 04/24/20 16:00 98.4 104 19 104/62 (76) 98 04/24/20 12:00 98.2 110 19 101/69 (80) 95 l Intake and Output 04/24/20 04/25/20 19:00 07:00 Intake Total 50 ml 200 ml Output Total 100 ml 150 ml Balance -50 ml 50 ml Intake Oral 200 ml IV Total 50 ml Output Urine Total 100 ml 150 ml # Voids 1 Laboratory Tests Test 04/24/20 15:46 04/25/20 05:45 POC Whole Blood Glucose 261 MG/DL (74-106) H White Blood Count 3.3 K/UL (4.8-10.8) L Red Blood Count 2.85 M/UL (4.20-5.40) L Hemoglobin 7.6 G/DL (12.0-16.0) L Hematocrit 24.0 % (37.0-47.0) L Mean Corpuscular Volume 84 FL (80-99) Mean Corpuscular Hemoglobin 26.8 PG (27.0-31.0) L Mean Corpuscular Hemoglobin Concent 31.8 G/DL (32.0-36.0) L Red Cell Distribution Width 18.9 % (11.6-14.8) H Platelet Count 347 K/UL (150-450) Mean Platelet Volume 5.2 FL (6.5-10.1) L Neutrophils (%) (Auto) % (45.0-75.0) Lymphocytes (%) (Auto) % (20.0-45.0) Monocytes (%) (Auto) % (1.0-10.0) Eosinophils (%) (Auto) % (0.0-3.0) Basophils (%) (Auto) % (0.0-2.0) Differential Total Cells Counted 100 Neutrophils % (Manual) 53 % (45-75) Lymphocytes % (Manual) 28 % (20-45) Monocytes % (Manual) 18 % (1-10) H Eosinophils % (Manual) 1 % (0-3) Basophils % (Manual) 0 % (0-2) Band Neutrophils 0 % (0-8) Platelet Estimate Adequate Platelet Morphology Normal Hypochromasia 1+ Anisocytosis 1+ Sodium Level 138 MMOL/L (136-145) Potassium Level 4.1 MMOL/L (3.5-5.1) Chloride Level 107 MMOL/L (98-107) Carbon Dioxide Level 21 MMOL/L (21-32) Anion Gap 11 mmol/L (5-15) Blood Urea Nitrogen 16 mg/dL (7-18) Creatinine 3.7 MG/DL (0.55-1.30) #H Estimat Glomerular Filtration Rate 15.5 mL/min (>60) Glucose Level 72 MG/DL (74-106) L Calcium Level 8.2 MG/DL (8.5-10.1) L Random Vancomycin Level 33.6 ug/mL Objective HEAD AND NECK: No JVD. LUNGS: Coarse rhonchi. CARDIOVASCULAR: Regular S1 and S2 with no gallop or murmur. ABDOMEN: Soft. EXTREMITIES: No pitting edema. Ehsan Wan MD Apr 25, 2020 11:23
--- NOTE | 2020-04-25 12:48 | General Progress Note ---
Subjective ROS Limited/Unobtainable: Yes Allergies: Coded Allergies: No Known Allergies (Unverified , 04/11/20) Objective Last 24 Hour Vital Signs Date Time Temp Pulse Resp B/P (MAP) Pulse Ox O2 Delivery O2 Flow Rate FiO2 04/25/20 09:09 Room Air 04/25/20 08:41 98.2 114 19 109/69 (82) 96 04/25/20 04:00 89.1 112 19 111/67 (82) 96 04/25/20 00:00 97.9 107 19 101/71 (81) 98 04/24/20 21:00 Nasal Cannula 1.0 04/24/20 20:36 96 Nasal Cannula 1.0 24 04/24/20 20:00 98.1 128 19 91/58 (69) 96 04/24/20 16:00 98.4 104 19 104/62 (76) 98 Intake and Output 04/24/20 04/25/20 19:00 07:00 Intake Total 50 ml 200 ml Output Total 100 ml 150 ml Balance -50 ml 50 ml Intake Oral 200 ml IV Total 50 ml Output Urine Total 100 ml 150 ml # Voids 1 Laboratory Tests 04/24/20 15:46: POC Whole Blood Glucose 261H 04/25/20 05:45: White Blood Count 3.3L, Red Blood Count 2.85L, Hemoglobin 7.6L, Hematocrit 24.0L , Mean Corpuscular Volume 84, Mean Corpuscular Hemoglobin 26.8L, Mean Corpuscular Hemoglobin Concent 31.8L, Red Cell Distribution Width 18.9H, Platelet Count 347, Mean Platelet Volume 5.2L, Neutrophils (%) (Auto) , Lymphocytes (%) (Auto) , Monocytes (%) (Auto) , Eosinophils (%) (Auto) , Basophils (%) (Auto) , Differential Total Cells Counted 100, Neutrophils % (Manual) 53, Lymphocytes % (Manual) 28, Monocytes % (Manual) 18H, Eosinophils % (Manual) 1, Basophils % (Manual) 0, Band Neutrophils 0, Platelet Estimate Adequate, Platelet Morphology Normal, Hypochromasia 1+, Anisocytosis 1+, Sodium Level 138, Potassium Level 4.1, Chloride Level 107, Carbon Dioxide Level 21, Anion Gap 11, Blood Urea Nitrogen 16, Creatinine 3.7#H, Estimat Glomerular Filtration Rate 15.5, Glucose Level 72L, Calcium Level 8.2L, Random Vancomycin Level 33.6 Height (Feet): 5 Height (Inches): 7.00 Weight (Pounds): 150 General Appearance: no apparent distress EENT: normal ENT inspection Neck: supple Cardiovascular: normal rate Respiratory/Chest: decreased breath sounds Abdomen: normal bowel sounds, non tender, soft Extremities: non-tender Assessment/Plan Status: stable Assessment/Plan: iron def anemia mild elevated CEA lymphoma on chemo covid positive neg stool ob iv iron fu H&H needs out patient fu for colonoscopy fu oncology CT reviewed colace miralax lactulose add linzess add marinol add MVI add vit c Patrick Carter MD Apr 25, 2020 12:48
[2020-04-25] MEDS: Morphine Sulfate 2mg/ml Inj(IV/IM USE ONLY) IVP PRN ×2 (12:59→21:37)
--- NOTE | 2020-04-25 14:30 | NUR ---
CHARGE NURSE NOTE: was notfied that Morales cath is leaking, and low urine output since morning. US renal shows that pt is retaining urine (525 ml). Received an order to insert a new Morales cath. Primary nurse Ping notified.
--- NOTE | 2020-04-25 14:57 | NUR ---
SOAP INSPECTOR NOTE CALL RECEIVED FROM SHA SOLIMAN AT [facility] TO INFORM THIS CM THAT ATIF/AUTH FOR [facility] HAS BEEN PROVIDED TO [facility] AND HE CONFIRMED RECEIPT OF ATIF WITH [employer]. PER [facility] [employer] WORKERDAV GUIDRY, [facility] WILL HAVE BE04/26/20. CALL MADE TO JANNY DALTON AND INFORMED THAT [facility] WILL ADMIT PATIENT TOMORROW.
--- NOTE | 2020-04-25 15:15 | NUR ---
CASE MANAGEMENT:REVIEW SI;COVID PNEUMONIA 99.1 118 19 113/72 96% ON RA WBC 3.3 H/H 7.6/24.0 CR 3.7 BG 72 IS;HEPARIN SQ Q8 IVF NS @ 75 ML/HR MORPHINE SULFATE IV Q3 PRN LACTULOSE PO TID BACLOFEN PO TID ALLOPURINOL PO QD MED SURG STATUS DCP;FROM [facility] PLAN FOR DC 04/26/20 PENDING BED AVAILABILITY
--- NOTE | 2020-04-25 16:00 | NUR ---
CHARGE NURSE NOTE: was notified about low H@H 7.6/24.0. No new orders were given.
--- NOTE | 2020-04-25 16:37 | Diagnostic Imaging Report ---
Indication: Acute renal failure Technique: Grayscale and duplex images of the kidneys, retroperitoneum, and bladder were obtained. Comparison: No comparison sonogram. Reference made to abdomen pelvis CT 04/19/2020 Findings: Right kidney measures 12.7 cm in length. Left kidney measures 13.8 cm in length. Both kidneys demonstrate normal echogenicity. There is mild hydronephrosis bilaterally, left greater than right. No focal abnormality; small cysts demonstrated on prior CT scan are not sonographically evident. Normal inferior vena cava. Bladder is distended, calculated volume 537 mL, despite the presence of a Morales catheter. Impression: Distended bladder despite the presence of a Morales catheter Mild bilateral hydronephrosis. Note that previous CT demonstrated mild renal collecting system fullness but no juan manuel hydronephrosis; suspect findings are related to the bladder distention currently present.
--- NOTE | 2020-04-25 17:00 | NUR ---
NURSE NOTES: New eaton catheter 16 montenegrin inserted,noted output of slightly concentrated yovany color urine,urine sent to lab as ordered.patient tolerated procedure.Skin care given.
--- NOTE | 2020-04-25 17:25 | NUR ---
NURSE NOTES: Temperature oral `100.4, tylenol 650mg po given will monitor.DR Carter aware today patient not taking the lactulose, patient appetite is poor. state he will review and order medication.
--- NOTE | 2020-04-25 17:31 | General Progress Note ---
Subjective Date patient seen: Apr 25, 2020 ROS Limited/Unobtainable: No Allergies: Coded Allergies: No Known Allergies (Unverified , 04/11/20) Subjective No acute events overnight per nursing. Patient afebrile for the past 24 hours. Weaning off oxygen. Overall improving but renal function worsening. Pain better controlled on PO pain meds. No cough, SOB. No other complaints. Review of systems: Constitutional: Denies: chills, diaphoresis, malaise, weakness, fever HEENT: Denies: eye pain, blurred vision, double vision, ear pain, nose pain, throat pain, Cardiovascular: Denies: chest pain, edema, lightheadedness, palpitations Respiratory: SEe HPI Gastrointestinal/Abdominal: Denies: abdominal pain, black stools, blood in stool, constipation, diarrhea, nausea, poor fluid intake vomiting, other Genitourinary: Denies: burning, discharge, frequency, Neurologic/Psychiatric: Denies: headache, numbness, paresthesia, new weakness, other Endocrine: Denies: excessive sweating, flushing, intolerance to cold, MSK: denies joint pains, swelling, stiffness +back pain Hematologic/Lymphatic: Denies: anemia, easy bleeding, easy bruising, Objective Last 24 Hour Vital Signs Date Time Temp Pulse Resp B/P (MAP) Pulse Ox O2 Delivery O2 Flow Rate FiO2 04/25/20 17:07 100.4 120 19 118/75 (89) 100 04/25/20 12:54 99.1 118 19 113/72 (86) 96 04/25/20 09:09 Room Air 04/25/20 08:41 98.2 114 19 109/69 (82) 96 04/25/20 07:00 96 Nasal Cannula 1.0 24 04/25/20 04:00 89.1 112 19 111/67 (82) 96 04/25/20 00:00 97.9 107 19 101/71 (81) 98 04/24/20 21:00 Nasal Cannula 1.0 04/24/20 20:36 96 Nasal Cannula 1.0 24 04/24/20 20:00 98.1 128 19 91/58 (69) 96 Intake and Output 04/24/20 04/25/20 19:00 07:00 Intake Total 50 ml 200 ml Output Total 100 ml 150 ml Balance -50 ml 50 ml Intake Oral 200 ml IV Total 50 ml Output Urine Total 100 ml 150 ml # Voids 1 Laboratory Tests 04/25/20 05:45: White Blood Count 3.3L, Red Blood Count 2.85L, Hemoglobin 7.6L, Hematocrit 24.0L , Mean Corpuscular Volume 84, Mean Corpuscular Hemoglobin 26.8L, Mean Cor puscular Hemoglobin Concent 31.8L, Red Cell Distribution Width 18.9H, Platelet Count 347, Mean Platelet Volume 5.2L, Neutrophils (%) (Auto) , Lymphocytes (%) (Auto) , Monocytes (%) (Auto) , Eosinophils (%) (Auto) , Basophils (%) (Auto) , Differential Total Cells Counted 100, Neutrophils % (Manual) 53, Lymphocytes % (Manual) 28, Monocytes % (Manual) 18H, Eosinophils % (Manual) 1, Basophils % (Manual) 0, Band Neutrophils 0, Platelet Estimate Adequate, Platelet Morphology Normal, Hypochromasia 1+, Anisocytosis 1+, Sodium Level 138, Potassium Level 4.1, Chloride Level 107, Carbon Dioxide Level 21, Anion Gap 11, Blood Urea Nitrogen 16, Creatinine 3.7#H, Estimat Glomerular Filtration Rate 15.5, Glucose Level 72L, Calcium Level 8.2L, Random Vancomycin Level 33.6 Height (Feet): 5 Height (Inches): 7.00 Weight (Pounds): 150 Objective General: WDWN female in NAD, A&O x 4, pleasant, conversant HEENT: Normocephalic cephalic atraumatic, pupils equal round reactive to light and accommodation, nares patent and no symmetrical, no tonsillar exudates, mucous membranes slighly dry CV: Regular rate regular rhythm, no murmurs, rubs, or gallops Pulm: Lungs clear to auscultation bilaterally. No wheezes, rhonchi, or rales GI: Soft, nontender, nondistended, bowel sounds present + eaton in place, no suprapubic TTP Neuro: CN 2-12 intact bilaterally, no focal signs. Moving all extremities Ext: No lower extremity edema bilaterally Skin: no rashes lesions or ulcers Msk: Joints symmetrical in upper extremity and lower extremity bilaterally, no joint swelling. + left hip pain (slightly) + mid thoracic spinal back pain Lymph: No lymphadenopathy in upper extremity and lower extremity Assessment/Plan Status: stable Assessment/Plan: #Hx of Sepsis 2' port infection #Sepsis due to COVID 19 pneumonia (febrile, tachycardic) #COVID 19+ #Continued fever of unknown origin. COVID vs. cancer related? - Fever again today 04/25 - CTM Fever curve. Could be due to underlying malignancy - Repeat Blood cultures NGTD - Repeat UA: negative - Repeat CXR: Bronchial thickening - Check CT C/A/P including CT angio to eval for PE. : reviewed. No PE. No obvious infection. Incidental left hip fracture - IV fluids as needed - D/W ID. - Port has been removed at OS - , - ngtd - Cefepime (04/14 - 04/15) - Per patient she is to continue on Vancomycin till 04/25 - D/c vanc - ID Consult, appreciate recs - MRI C/T/L spine w/wo contrast to eval for abscess: No sign of infection, abscess or osteo #L3 lesion on MRI: bone infarct vs. osteoid osteoma vs. less likely infection #Chronic LE weakness #s/p Laminectomy earlier in the year #Chronic Back pain > d/w radiology Dr. Hedrick - d/w ID, Neuro - outpatient f/u with spine surgeon: Dr. Nino in [facility] - appreciate neurology consult: Dr. Bajwa - PT when able - Flushing 5/10 Q6hr PRN moderate to severe and IV Morphine for BTP #JIM, pre-renal vs. due to vanc toxicity - Worsening > Vanc level 35 - urine lytes - Nephrology on board: D/w Dr. hatch - Fluids per nephro #Hypothyroidism, suspect central given TSH and T4 both low - endocrinology consulted: Dr. Fermin to see - FSHpending. #left hip fracture, suspect chronic > Patient states she fell 5 months ago but no recent falls. Also had hard fall on coccyx in 2018. Minimal pain in left hip > Patient states she has not walked for months but is not paraplegic. Severe debilitation. - appreciate ortho eval: Dr. Payan. Given patient bed bound risks > benefits. 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 History of lymphoma per patient and is receiving chemo tx, last known to be February 2020. - 2U PRBCs ordered and transfused on admission - Hb Stable - Rectic count wnl, Iron and Iron sat low, Ferritin wnl - No active signs of bleeding - Hematology consulted, appreciate recs - CTM for signs of bleeding - Patient will need colonoscopy as outpatient in the future : Gi Consulted; Dr. Carter #sinus tachycardia, due to COVID pna - monitor EKG - Cardiology consulted: Dr. Wan #proctitis #Constipation- > improving - Aggressive bowel regimen - GI aware: Appreciate recommendations - Colace, miralax, - s/p enema and ducolax with improvement #chronic urinary retention - since patient had spine surgery earlier in the year - unsure if has true urinary retention - d/w nephrology -> voiding trial, however patient refused. #Hypokalemia #hypomagnesia - Lytes replaced - appreciate nephro management FENPPX DVTPPX: per primary. Consider changing to HSQ if Cr does not imrp Fluids: per nephro Diet: regular Lines: PIV PT/OT: pending Code status:Full Dispo: back to SNF Reason for Continued Hospitalization: hypoxia, fever Dispo - Discharge back to SNF. MIPS (Merit-based Incentive Payment System) Applicable CPT: 54668, 53290 CHECK ALL THAT ARE MET: [] Measure #5 (CHF): All ages. Prescribe LINDSAY/ARB upon discharge for patients with left ventricular systolic dysfunction. If not, the reason is clearly documented in the medical chart [] Measure #8 (CHF): All ages. Prescribe a beta domenico upon discharge for patients with left ventricular systolic dysfunction. If not, the reason is clearly documented in the medical chart. [x] Measure #47: Advance care plan or surrogate decision maker documented in the medical record. [x] Measure #130 The provider has documented, updated, or reviewed the patients current medication list and has documented it in the patients note. [] Measure #374 (All): Send report to referring provider. [] Measure #407(Sepsis due to MSSA bacteremia): Age 18+ Patient treated with a beta-lactam antibiotic (Nafcillin, Oxacillin or Cefazolin) as definitive therapy. MEDICAL COMPLEXITYHigh complexity medical decision making (need 2/3 categories)Problem - need 4 points [x]Acute/new problem with new plan for workup (4 points, 1 max) [] Acute/new problem without additional workup (3 points, 1 max) [] Unstable chronic problem actively being managed (2 point each, 2 max) [x] Stable chronic problem actively being managed (1 point each, 2 max) [x] Self-limited/transient process (constipation, muscle ache, etc) (1 point each, 2 max) Data - need 4 points [x] Reviewed labs/imaging studies (1 points, 2 max) [x] Independent review of imaging (EKG, xrays, etc) (2 points, 2 max) [x] Discussed case with consult/other MD/RN (2 points, 2 max) High Risk - qualify if have one of the following: [x] Severe exacerbation of acute problem, acute mental status change, IV narcotics, monitoring drug levels (vancomycin, INR, tacrolimus etc) I spent 36 minutes on this patient's case, and 20mins was dedicated to counseling and/or care coordination. Discussed with nephrology, RN at bedside. Time of note may not reflect time of encounter Albin Barker M.D. Apr 25, 2020 17:31
[2020-04-25 17:46] LABS: APPEARANCE,URINE CLOUDY; BILIRUBIN, URINE NEGATIVE (NEGATIVE); COLOR,URINE AMBER; GLUCOSE, URINE (UA) NEGATIVE (NEGATIVE); KETONES,URINE NEGATIVE (NEGATIVE); LEUKOCYTE ESTERASE ,URINE 2+ (NEGATIVE); NITRITE,URINE NEGATIVE (NEGATIVE); PH,URINE 6.5 (4.5-8.0); PROTEIN,URINE 1+ (NEGATIVE); UROBILINOGEN,URINE NORMAL MG/DL (0.0-1.0)
[2020-04-25] MEDS: Dronabinol 2.5mg Cap ORAL SCH (19:26)
--- NOTE | 2020-04-25 19:45 | NUR ---
NURSE NOTES: Received report & pt from REA Feng. Pt in bed, a&ox4, on O2 via NC @ 1LPM. No s/s of acute distress & c/o 02/11 pain. Will give PRN pain med when due & pt verbalized understanding. Morales cath intact & draining yellow urine output via gravity. PICC line intact with IVF running as ordered. Plan of care discussed.
--- NOTE | 2020-04-25 20:16 | NUR ---
NURSE HAND-OFF: Romy LUCIA Important Events on Shift:[ new eaton catheter 16 irish inserted today. Tylenol given for temperature. Patient Status: [] Diet: [ regular.Ensure with MEALS Pending Orders: [] Pending Results/Labs:[urine sent today 04/25 see order] Pending MD notification:[] Latest Vital Signs: Temperature 100.6 , Pulse 120 , B/P 118 /75 , Respiratory Rate 19 , O2 SAT 95 , Nasal Cannula, O2 Flow Rate 1.0 . Vital Sign Comment: [] Latest [place] Fall Score: 35 Fall Risk: Medium Risk Safety Measures: Call light Within Reach, Bed Alarm Zone 1, Side Rails Side Rails x2, Bed position Low and Locked. Fall Precautions: Door Sign y Patient Fall Education y Report given to [].
[2020-04-25] MEDS: Dyna-Hex 2% Top Sol 2oz TOPIC SCH (20:20)
[2020-04-26] VITALS: BP 90/51
[2020-04-26 04:00] VITALS: BP 96/57
[2020-04-26] MEDS: Morphine Sulfate 2mg/ml Inj(IV/IM USE ONLY) IVP PRN ×3 (04:01→16:05)
[2020-04-26] MEDS: Heparin 5000 units/ml inj SUBQ SCH ×4 (05:32→22:00)
[2020-04-26] MEDS: HYDROcodone/Acetamin 10/325 tab ORAL PRN ×2 (06:03→21:57)
--- NOTE | 2020-04-26 06:37 | NUR ---
NURSE HAND-OFF: Important Events on Shift:pain management Patient Status: stable Diet: regular Pending Orders: Pending Results/Labs: Pending MD notification: Latest Vital Signs: Temperature 97.9 , Pulse 101 , B/P 96 /57 , Respiratory Rate 20 , O2 SAT 100 , Nasal Cannula, O2 Flow Rate 1.0 . Vital Sign Comment: Latest [place] Fall Score: 35 Fall Risk: Medium Risk Safety Measures: Call light Within Reach, Bed Alarm Zone 1, Side Rails Side Rails x2, Bed position Low and Locked. Fall Precautions: Door Sign Patient Fall Education Report given to REA Antony. Addendum: 04/26/20 at 0644 by Romy Christie RN afebrile Addendum: 04/26/20 at 0713 by Romy Christie RN Correction: Report given to Mansoor Calderon RN.
--- NOTE | 2020-04-26 06:42 | Hematology/Onc Progress Note ---
Assessment/Plan Assessment/Plan # Leukopenia COVID19++++++++++ --> hep and hiv order as needed --> wbc 4-->3-->2.9->2->4.6--4.1-->3.6 --> Neupogen 300 x1 04/21 --> isolation if anc<500 # Non-Hodgkins Lymphoma is s/p chemotherapy in the past --> to return to [facility] for further treatment --> likely for ct/pet as outpatient --> CT Here shows no e/o disease --> imaging has been reviewed thus far --> end date of 04/2020 # Anemia likely of chronic disease -- does not appear to have iron deficiency --> transfuse as needed, tibc and ferritin are cw acd --> hgb 7.8-->8.6-->8.5-->8.4->7.6 --> no hemolysis is noted --> s/p transfusion on admission # Covid 19++ with SIRS (febrile, tachycardic) --> per pulm and id --> CXR with diffuse non-specific inflammatory/infectious process --> s/p Cefepime (04/14 - 04/15) # Hypokalemia # Hypomagnesia # Chronic Back pain # Full Code Appreciate consultation and dw Rn Subjective HEENT: Denies: no symptoms, eye pain, blurred vision, tearing, double vision, ear pain, ear discharge, nose pain, nose congestion, throat pain, throat swelling, mouth pain, mouth swelling, other Cardiovascular: Denies: no symptoms, chest pain, edema, irregular heart rate, lightheadedness, palpitations, syncope, other Respiratory: Denies: no symptoms, cough, shortness of breath, SOB with excertion, SOB at rest, sputum, wheezing, other Gastrointestinal/Abdominal: Denies: no symptoms, abdomen distended, abdominal pain, black stools, tarry stools, blood in stool, constipated, diarrhea, difficulty swallowing, nausea, poor appetite, poor fluid intake, rectal bleeding, vomiting, other Genitourinary: Denies: no symptoms, burning, discharge, frequency, flank pain, hematuria, incontinence, pain, urgency, other Neurologic/Psychiatric: Denies: no symptoms, anxiety, depressed, emotional problems, headache, numbness, paresthesia, pre-existing deficit, seizure, tingling, tremors, weakness, other Endocrine: Denies: no symptoms, excessive sweating, flushing, intolerance to cold, intolerance to heat, increased hunger, increased thirst, increased urine, unexplained weight gain, unexplained weight loss, other Hematologic/Lymphatic: Denies: no symptoms, anemia, easy bleeding, easy bruising, adenopathy, other Allergies: Coded Allergies: No Known Allergies (Unverified , 04/11/20) Subjective 04/17 is on room air, more comfortable, potential dc to snf 04/18 labs reviewed, no bleeding, meds noted, no night sweats 04/19 sleeping comfortably, no major events, no night sweats 04/20 meds noted, labs reviewed, wbc 2.9, hep and hiv is neg 04/21 labs reviewed, in am, the wbc was 2, to get neupogen x 1 dose now 04/23 labs noted, no bleeding, wbc 4, hgb remains low, but holding off trans 04/24 labs are pending for am, meds reviewed, no bleeding 04/25 meds reviewed, labs noted, no night sweats, dw rn at bedside, no new events 04/26 labs reviewed, meds noted, no bleeding, wbc 3, hgb 7.6 Objective Objective Current Medications Medications (Trade) Dose Ordered Sig/Angelika Route PRN Reason Start Time Stop Time Status Last Admin Dose Admin Acetaminophen (Tylenol) 650 mg Q6H PRN ORAL Mild Pain (Pain Scale 1-3) 04/12/20 02:45 05/12/20 02:44 04/22/20 18:38 Acetaminophen (Tylenol) 650 mg Q6H PRN ORAL FEVER 04/12/20 16:30 05/12/20 16:29 04/25/20 17:25 Acetaminophen/ Hydrocodone Bitart ([place] 10/325) 1 tab Q6H PRN ORAL severe pain 04/22/20 11:00 04/29/20 10:59 04/26/20 06:03 Acetaminophen/ Hydrocodone Bitart ([place] 5/325) 1 tab Q6H PRN ORAL moderate pain 04/22/20 11:00 04/29/20 10:59 Allopurinol (allopurinoL) 300 mg DAILY ORAL 04/12/20 09:00 05/12/20 08:59 04/25/20 08:55 Ascorbic Acid (Vitamin C) 500 mg DAILY ORAL 04/26/20 09:00 05/26/20 08:59 Baclofen (Lioresal) 10 mg THREE TIMES A DAY ORAL 04/12/20 09:00 05/12/20 08:59 04/23/20 12:46 Chlorhexidine Gluconate (Christy-Hex 2%) 1 applic Q24H TOPIC 04/25/20 20:00 07/24/20 19:59 04/25/20 20:20 Docusate Sodium (Colace) 100 mg TWICE A DAY ORAL 04/20/20 09:00 05/20/20 08:59 04/25/20 19:24 Dronabinol (Marinol) 2.5 mg BID ORAL 04/25/20 18:00 07/24/20 17:59 04/25/20 19:26 Heparin Sodium (Porcine) (Heparin 5000 units/ml) 5,000 units EVERY 8 HOURS SUBQ 04/24/20 22:00 06/08/20 21:59 Lactulose (Cephulac) 20 gm THREE TIMES A DAY ORAL 04/21/20 13:00 05/21/20 12:59 04/24/20 09:35 Linaclotide (Linzess) 290 mcg BEFORE BREAKFAST ORAL 04/26/20 06:30 07/25/20 06:29 04/26/20 06:03 Lorazepam (Ativan 2mg/ml 1ml) 0.5 mg DAILYPRN PRN IV x1dose for anxiety in MRI 04/20/20 13:30 04/27/20 13:29 04/24/20 06:18 Morphine Sulfate (Morphine Sulfate) 2 mg Q3H PRN IVP Severe Pain (Pain Scale 7-10) 04/22/20 23:15 04/29/20 23:14 04/26/20 04:01 Morphine Sulfate (Morphine Sulfate) 4 mg EVERY 3 HOURS PRN IVP SEVERE BREAKTHRU PAIN 04/22/20 18:00 04/29/20 17:59 04/23/20 17:24 Multivitamins (Multivitamins) 1 tab DAILY ORAL 04/26/20 09:00 05/26/20 08:59 Ondansetron HCl (Zofran) 4 mg Q6H PRN IVP Nausea & Vomiting 04/19/20 13:30 05/19/20 13:29 Polyethylene Glycol (Miralax) 17 gm DAILY ORAL 04/20/20 09:00 05/20/20 08:59 04/25/20 08:57 Sodium Chloride 1,000 ml @ 75 mls/hr [id number] IV 04/24/20 11:00 05/24/20 10:59 04/26/20 03:01 Last 24 Hour Vital Signs Date Time Temp Pulse Resp B/P (MAP) Pulse Ox O2 Delivery O2 Flow Rate FiO2 04/26/20 04:00 97.9 101 20 96/57 (70) 100 04/26/20 00:00 97.9 102 20 90/51 (64) 100 04/25/20 21:00 Nasal Cannula 1.0 04/25/20 20:00 98.2 116 20 97/57 (70) 100 04/25/20 20:00 95 Nasal Cannula 1.0 24 04/25/20 19:28 100.6 04/25/20 17:07 100.4 120 19 118/75 (89) 100 04/25/20 17:00 100.4 120 18 118/75 (89) 96 04/25/20 12:54 99.1 118 19 113/72 (86) 96 04/25/20 09:09 Room Air 04/25/20 08:41 98.2 114 19 109/69 (82) 96 04/25/20 07:00 96 Nasal Cannula 1.0 24 04/25/20 04:00 89.1 112 19 111/67 (82) 96 04/25/20 00:00 97.9 107 19 101/71 (81) 98 04/24/20 21:00 Nasal Cannula 1.0 04/24/20 20:36 96 Nasal Cannula 1.0 24 04/24/20 20:00 98.1 128 19 91/58 (69) 96 04/24/20 16:00 98.4 104 19 104/62 (76) 98 04/24/20 12:00 98.2 110 19 101/69 (80) 95 04/24/20 09:00 Nasal Cannula 1.0 04/24/20 08:00 98.1 114 19 99/64 (76) 95 12/21/20 07:39 95 Nasal Cannula 1.0 24 Intake and Output 04/25/20 04/26/20 18:59 06:59 Intake Total 1430 ml 1300 ml Output Total 800 ml 800 ml Balance 630 ml 500 ml Intake Oral 680 ml 400 ml IV Total 750 ml 900 ml Output Urine Total 800 ml 800 ml Labs Test 04/23/20 22:30 04/24/20 05:45 04/24/20 15:46 04/25/20 05:45 Vancomycin Level Trough 35.1 ug/mL (5.0-12.0) White Blood Count 4.1 K/UL (4.8-10.8) 3.3 K/UL (4.8-10.8) Red Blood Count 3.07 M/UL (4.20-5.40) 2.85 M/UL (4.20-5.40) Hemoglobin 8.2 G/DL (12.0-16.0) 7.6 G/DL (12.0-16.0) Hematocrit 25.6 % (37.0-47.0) 24.0 % (37.0-47.0) Mean Corpuscular Volume 83 FL (80-99) 84 FL (80-99) Mean Corpuscular Hemoglobin 26.7 PG (27.0-31.0) 26.8 PG (27.0-31.0) Mean Corpuscular Hemoglobin Concent 32.0 G/DL (32.0-36.0) 31.8 G/DL (32.0-36.0) Red Cell Distribution Width 18.0 % (11.6-14.8) 18.9 % (11.6-14.8) Platelet Count 338 K/UL (150-450) 347 K/UL (150-450) Mean Platelet Volume 5.0 FL (6.5-10.1) 5.2 FL (6.5-10.1) Neutrophils (%) (Auto) 66.2 % (45.0-75.0) % (45.0-75.0) Lymphocytes (%) (Auto) 18.6 % (20.0-45.0) % (20.0-45.0) Monocytes (%) (Auto) 10.7 % (1.0-10.0) % (1.0-10.0) Eosinophils (%) (Auto) 3.0 % (0.0-3.0) % (0.0-3.0) Basophils (%) (Auto) 1.5 % (0.0-2.0) % (0.0-2.0) Sodium Level 138 MMOL/L (136-145) 138 MMOL/L (136-145) Potassium Level 4.5 MMOL/L (3.5-5.1) 4.1 MMOL/L (3.5-5.1) Chloride Level 107 MMOL/L (98-107) 107 MMOL/L (98-107) Carbon Dioxide Level 20 MMOL/L (21-32) 21 MMOL/L (21-32) Anion Gap 11 mmol/L (5-15) 11 mmol/L (5-15) Blood Urea Nitrogen 9 mg/dL (7-18) 16 mg/dL (7-18) Creatinine 2.1 MG/DL (0.55-1.30) 3.7 MG/DL (0.55-1.30) Estimat Glomerular Filtration Rate 29.8 mL/min (>60) 15.5 mL/min (>60) Glucose Level 83 MG/DL (74-106) 72 MG/DL (74-106) Calcium Level 7.9 MG/DL (8.5-10.1) 8.2 MG/DL (8.5-10.1) POC Whole Blood Glucose 261 MG/DL (74-106) Differential Total Cells Counted 100 Neutrophils % (Manual) 53 % (45-75) Lymphocytes % (Manual) 28 % (20-45) Monocytes % (Manual) 18 % (1-10) Eosinophils % (Manual) 1 % (0-3) Basophils % (Manual) 0 % (0-2) Band Neutrophils 0 % (0-8) Platelet Estimate Adequate Platelet Morphology Normal Hypochromasia 1+ Anisocytosis 1+ Random Vancomycin Level 33.6 ug/mL Test 04/25/20 17:20 04/26/20 04:30 Urine Color Gloria Urine Appearance Cloudy Urine pH 6.5 (4.5-8.0) Urine Specific [place] 1.005 (1.005-1.035) Urine Protein 1+ (NEGATIVE) Urine Glucose (UA) Negative (NEGATIVE) Urine Ketones Negative (NEGATIVE) Urine Blood 1+ (NEGATIVE) Urine Nitrite Negative (NEGATIVE) Urine Bilirubin Negative (NEGATIVE) Urine Ictotest Negative (NEGATIVE) Urine Urobilinogen Normal MG/DL (0.0-1.0) Urine Leukocyte Esterase 2+ (NEGATIVE) Urine RBC 5-10 /HPF (0 - 2) Urine WBC Tntc /HPF (0 - 2) Urine Squamous Epithelial Cells Many /LPF (NONE/OCC) Urine Bacteria Many /HPF (NONE) Urine Yeast Many /HPF (NONE) Urine Random Sodium 69 mmol/L (20-110) Urine Creatinine 50.4 MG/DL (30.0-125.0) Height (Feet): 5 Height (Inches): 7.00 Weight (Pounds): 150 Objective Gen: nad Pulm: ctab, no cwr CV: rrr Abd: soft, nt Ext: no cce Martinez Hill MD Apr 26, 2020 06:42
[2020-04-26 06:54] LABS: HEMATOCRIT 22.2 % (37.0-47.0); HEMOGLOBIN 7.1 G/DL (12.0-16.0); MEAN CORPUSCULAR VOLUME 84 FL (80-99); PLATELET COUNT 231 K/UL (150-450); RED BLOOD COUNT 2.63 M/UL (4.20-5.40); RED CELL DISTRIBUTION WIDTH 19.1 % (11.6-14.8); WHITE BLOOD COUNT 3.2 K/UL (4.8-10.8)
[2020-04-26 07:05] LABS: POTASSIUM 4.3 MMOL/L (3.5-5.1)
[2020-04-26 07:25] LABS: PHOSPHORUS 4.9 MG/DL (2.5-4.9)
--- NOTE | 2020-04-26 07:32 | General Progress Note ---
Subjective ROS Limited/Unobtainable: Yes Allergies: Coded Allergies: No Known Allergies (Unverified , 04/11/20) Objective Last 24 Hour Vital Signs Date Time Temp Pulse Resp B/P (MAP) Pulse Ox O2 Delivery O2 Flow Rate FiO2 04/26/20 04:00 97.9 101 20 96/57 (70) 100 04/26/20 00:00 97.9 102 20 90/51 (64) 100 04/25/20 21:00 Nasal Cannula 1.0 04/25/20 20:00 98.2 116 20 97/57 (70) 100 04/25/20 20:00 95 Nasal Cannula 1.0 24 04/25/20 19:28 100.6 04/25/20 17:07 100.4 120 19 118/75 (89) 100 04/25/20 17:00 100.4 120 18 118/75 (89) 96 04/25/20 12:54 99.1 118 19 113/72 (86) 96 04/25/20 09:09 Room Air 04/25/20 08:41 98.2 114 19 109/69 (82) 96 Intake and Output 04/25/20 04/26/20 19:00 07:00 Intake Total 1505 ml 1225 ml Output Total 800 ml 800 ml Balance 705 ml 425 ml Intake Oral 680 ml 400 ml IV Total 825 ml 825 ml Output Urine Total 800 ml 800 ml Laboratory Tests 04/25/20 17:20: Urine Color Gloria, Urine Appearance Cloudy, Urine pH 6.5, Urine Specific [place] 1.005, Urine Protein 1+H, Urine Glucose (UA) Negative, Urine Ketones Negative, Urine Blood 1+H, Urine Nitrite Negative, Urine Bilirubin Negative, Urine Ictotest Negative, Urine Urobilinogen Normal, Urine Leukocyte Esterase 2+H, Urine RBC 5-10H, Urine WBC TntcH, Urine Squamous Epithelial Cells ManyH, Urine Bacteria ManyH, Urine Yeast ManyH, Urine Random Sodium 69, Urine Creatinine 50.4 04/26/20 04:30: White Blood Count 3.2L, Red Blood Count 2.63L, Hemoglobin 7.1L, Hematocrit 22.2L , Mean Corpuscular Volume 84, Mean Corpuscular Hemoglobin 27.0, Mean Corpuscular Hemoglobin Concent 32.1, Red Cell Distribution Width 19.1H, Platelet Count 231, Mean Platelet Volume 5.8L, Neutrophils (%) (Auto) , Lymphocytes (%) (Auto) , Monocytes (%) (Auto) , Eosinophils (%) (Auto) , Basophils (%) (Auto) , Neutrophils % (Manual) [Pending], Lymphocytes % (Manual) [Pending], Platelet Estimate [Pending], Platelet Morphology [Pending], Sodium Level [Pending], Potassium Level [Pending], Chloride Level [Pending], Carbon Dioxide Level [Pending], Blood Urea Nitrogen [Pending], Creatinine [Pending], Estimat Glomerular Filtration Rate [Pending], Glucose Level [Pending], Calcium Level [Pending], Phosphorus Level [Pending], Magnesium Level [Pending] Height (Feet): 5 Height (Inches): 7.00 Weight (Pounds): 150 General Appearance: no apparent distress EENT: normal ENT inspection Neck: supple Cardiovascular: normal rate Respiratory/Chest: decreased breath sounds Abdomen: normal bowel sounds, non tender, soft Extremities: non-tender Assessment/Plan Status: stable Assessment/Plan: iron def anemia mild elevated CEA lymphoma on chemo covid positive neg stool ob iv iron fu H&H needs out patient fu for colonoscopy fu oncology CT reviewed colace miralax lactulose tammy KAMINSKII vit c transfuse one unit PRBC Patrick Carter MD Apr 26, 2020 07:32
[2020-04-26 08:00] VITALS: BP 111/76
--- NOTE | 2020-04-26 08:00 | NUR ---
NURSE NOTES: Report received from Romy. Patient aaoX4, verbally responsive, no respiratory distress noted, stable. PICC line flushed patent, asymptomatic. Bed in lowest position and locked. BLE elevated. Abdomen soft and non tender. Call light within reach. Plan of care communicated.
--- NOTE | 2020-04-26 08:52 | Pulmonology Progress Note ---
Subjective ROS Limited/Unobtainable: Yes Interval Events: Hgb 7.1, due for [address] Carter Constitutional: Denies: fever HEENT: Repors: no symptoms; Denies: visual change, discharge Respiratory: Reports: no symptoms, dry cough - intermittent dry cough; Denies: shortness of breath, wheezing Cardiovascular: Reports: no symptoms Gastrointestinal/Abdominal: Denies: nausea, vomiting, diarrhea Psychiatric: Denies: depression Skin: Denies: rash Musculoskeletal: Denies: pain Allergies: Coded Allergies: No Known Allergies (Unverified , 04/11/20) Objective Last 24 Hour Vital Signs Date Time Temp Pulse Resp B/P (MAP) Pulse Ox O2 Delivery O2 Flow Rate FiO2 04/26/20 04:00 97.9 101 20 96/57 (70) 100 04/26/20 00:00 97.9 102 20 90/51 (64) 100 04/25/20 21:00 Nasal Cannula 1.0 04/25/20 20:00 98.2 116 20 97/57 (70) 100 04/25/20 20:00 95 Nasal Cannula 1.0 24 04/25/20 19:28 100.6 04/25/20 17:07 100.4 120 19 118/75 (89) 100 04/25/20 17:00 100.4 120 18 118/75 (89) 96 04/25/20 12:54 99.1 118 19 113/72 (86) 96 04/25/20 09:09 Room Air Intake and Output 04/25/20 04/26/20 19:00 07:00 Intake Total 1505 ml 1225 ml Output Total 800 ml 800 ml Balance 705 ml 425 ml Intake Oral 680 ml 400 ml IV Total 825 ml 825 ml Output Urine Total 800 ml 800 ml Objective 04/26 still on 1 L NC; NAD 04/25 no change respiratory-salomon 04/24 no change 04/23 on and off 1 lpm NC 04/22 saturating well on and off 1 lpm NC 04/21 no change 04/20 pt saturating well on 2 lpm NC; NAD 04/19 pt saturating well on 2 lpm NC; NAD 04/18 pt saturating well on 2 lpm NC General Appearance: WD/WN, no acute distress HEENT: normocephalic, atraumatic Respiratory: lungs clear Cardiovascular: normal rate, regular rhythm Abdomen: soft, non tender Genitourinary: other - Morales Extremities: no edema Laboratory Tests 04/25/20 17:20: Urine Color Gloria, Urine Appearance Cloudy, Urine pH 6.5, Urine Specific [place] 1.005, Urine Protein 1+H, Urine Glucose (UA) Negative, Urine Ketones Negative, Urine Blood 1+H, Urine Nitrite Negative, Urine Bilirubin Negative, Urine Ictotest Negative, Urine Urobilinogen Normal, Urine Leukocyte Esterase 2+H, Urine RBC 5-10H, Urine WBC TntcH, Urine Squamous Epithelial Cells ManyH, Urine Bacteria ManyH, Urine Yeast ManyH, Urine Random Sodium 69, Urine Creatinine 50.4 04/26/20 04:30: White Blood Count 3.2L, Red Blood Count 2.63L, Hemoglobin 7.1L, Hematocrit 22.2L , Mean Corpuscular Volume 84, Mean Corpuscular Hemoglobin 27.0, Mean Corpuscular Hemoglobin Concent 32.1, Red Cell Distribution Width 19.1H, Platelet Count 231, Mean Platelet Volume 5.8L, Neutrophils (%) (Auto) , Lymphocytes (%) (Auto) , Monocytes (%) (Auto) , Eosinophils (%) (Auto) , Basophils (%) (Auto) , Neutrophils % (Manual) [Pending], Lymphocytes % (Manual) [Pending], Platelet Estimate [Pending], Platelet Morphology [Pending], Sodium Level 138, Potassium Level 4.3, Chloride Level 109H, Carbon Dioxide Level 19L, Anion Gap 10, Blood Urea Nitrogen 20H, Creatinine 3.0H, Estimat Glomerular Filtration Rate 19.6, Glucose Level 67L, Calcium Level 8.0L, Phosphorus Level 4.9, Magnesium Level 1.4L Current Medications Medications (Trade) Dose Ordered Sig/Angelika Route PRN Reason Start Time Stop Time Status Last Admin Dose Admin Acetaminophen (Tylenol) 650 mg Q6H PRN ORAL Mild Pain (Pain Scale 1-3) 04/12/20 02:45 05/12/20 02:44 04/22/20 18:38 Acetaminophen (Tylenol) 650 mg Q6H PRN ORAL FEVER 04/12/20 16:30 05/12/20 16:29 04/25/20 17:25 Acetaminophen/ Hydrocodone Bitart ([place] 10) 1 tab Q6H PRN ORAL severe pain 04/22/20 11:00 04/29/20 10:59 04/26/20 06:03 Acetaminophen/ Hydrocodone Bitart ([place] 5/325) 1 tab Q6H PRN ORAL moderate pain 04/22/20 11:00 04/29/20 10:59 Allopurinol (allopurinoL) 300 mg DAILY ORAL 04/12/20 09:00 05/12/20 08:59 04/25/20 08:55 Ascorbic Acid (Vitamin C) 500 mg DAILY ORAL 04/26/20 09:00 05/26/20 08:59 Baclofen (Lioresal) 10 mg THREE TIMES A DAY ORAL 04/12/20 09:00 05/12/20 08:59 04/23/20 12:46 Chlorhexidine Gluconate (Christy-Hex 2%) 1 applic Q24H TOPIC 04/25/20 20:00 07/24/20 19:59 04/25/20 20:20 Docusate Sodium (Colace) 100 mg TWICE A DAY ORAL 04/20/20 09:00 05/20/20 08:59 04/25/20 19:24 Dronabinol (Marinol) 2.5 mg BID ORAL 04/25/20 18:00 07/24/20 17:59 04/25/20 19:26 Heparin Sodium (Porcine) (Heparin 5000 units/ml) 5,000 units EVERY 8 HOURS SUBQ 04/24/20 22:00 06/08/20 21:59 Lactulose (Cephulac) 20 gm THREE TIMES A DAY ORAL 04/21/20 13:00 05/21/20 12:59 04/24/20 09:35 Linaclotide (Linzess) 290 mcg BEFORE BREAKFAST ORAL 04/26/20 06:30 07/25/20 06:29 04/26/20 06:03 Lorazepam (Ativan 2mg/ml 1ml) 0.5 mg DAILYPRN PRN IV x1dose for anxiety in MRI 04/20/20 13:30 04/27/20 13:29 04/24/20 06:18 Morphine Sulfate (Morphine Sulfate) 2 mg Q3H PRN IVP Severe Pain (Pain Scale 7-10) 04/22/20 23:15 04/29/20 23:14 04/26/20 04:01 Morphine Sulfate (Morphine Sulfate) 4 mg EVERY 3 HOURS PRN IVP SEVERE BREAKTHRU PAIN 04/22/20 18:00 04/29/20 17:59 04/23/20 17:24 Multivitamins (Multivitamins) 1 tab DAILY ORAL 04/26/20 09:00 05/26/20 08:59 Ondansetron HCl (Zofran) 4 mg Q6H PRN IVP Nausea & Vomiting 04/19/20 13:30 05/19/20 13:29 Polyethylene Glycol (Miralax) 17 gm DAILY ORAL 04/20/20 09:00 05/20/20 08:59 04/25/20 08:57 Sodium Chloride 1,000 ml @ 75 mls/hr [id number] IV 04/24/20 11:00 05/24/20 10:59 04/26/20 03:01 Assessment/Plan Assessment/Plan 1. COVID-19 positivity. - COVID-19 PCR 04/21 positive: cont isolation - no indication for any steroid or remdesivir given her normoxemia at this time - s/p cefepime - CXR with diffuse non-specific inflammatory/infectious process - cont supplemental oxygen as needed - CT A/P/C - no obvious pna or abscess, cultures negative 2. Immunocompromised state with history of non-Hodgkin lymphoma. - on chemo - h/o port line infection; s/p Vanco 3. Hx of fever.- now appears resolved 4. Hx of Hypertension. 5. Gout. 6. Anemia - due for another unit of pRBC today per Dr. Carter DVT ppx - on SCD - pt refusing heparin and lovenox Low TSH; improving - Dr. Fermin following - no need for levothyroxine per Dr. 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
--- NOTE | 2020-04-26 08:55 | Nephrology Progress Note ---
Assessment/Plan Plan #acute kidney injury likely due to vanco toxicity #hypokalemia- #hypomagnesemia #Acute on chronic anemia #h/p non- hodgkins lymphoma #possible sepsis #+ COVID #Femoral intertrochanteric hip fracture. - NS at 75cc/hr - Pulmonary eval - prbc transfusion prn - replete lytes - hemo-onc eval - ID eval - continue with IV abx - monitor CBC - avoid nephrotoxins - ortho eval - spine eval for L3 acute on chronic bone infarct, less likely neoplasm or infection? times spent 65 min Subjective ROS Limited/Unobtainable: No HEENT: Denies: no symptoms, eye pain, blurred vision, tearing, double vision, ear pain, ear discharge, nose pain, nose congestion, throat pain, throat swelling, mouth pain, mouth swelling, other Genitourinary: Denies: no symptoms, burning, discharge, frequency, flank pain, hematuria, incontinence, pain, urgency, other Neurologic/Psychiatric: Denies: no symptoms, anxiety, depressed, emotional problems, headache, numbness, paresthesia, pre-existing deficit, seizure, tingling, tremors, weakness, other Subjective Cr better today remains on IVF hip fracture noted ortho consulted Impression: Minimal distention of the rectum with feces, could represent mild rectal fecal impaction. Equivocal slight thickening of the rectal wall and stranding of the perirectal fat, if real could indicate mild stercoral proctitis Comminuted fracture of the left femoral head, neck, and intertrochanteric region, ununited. Possibly acute, but abundant soft tissues surrounding the fracture area raises possibility that this could be chronic. Correlate with clinical findings Other findings as noted, including evidence of old T12 vertebral body compression fracture and prior vertebral augmentation procedure, Morales catheter, subcentimeter low-attenuation lesions which probably represent renal cysts, small sliding-type hiatal hernia Impression: Unusual signal abnormality of the posterolateral aspect of the L3 vertebral body on the right. This appears to be confined to the vertebral body marrow space. Prior CT scan in retrospect demonstrates sclerotic areas in the same location. Most likely differential consideration is an atypical hemangioma. Other possibilities include acute on chronic bone infarct, less likely neoplasm or infection No other unusual contrast enhancement. No findings to suggest discitis or epidural abscess. Objective Objective Last 24 Hour Vital Signs Date Time Temp Pulse Resp B/P (MAP) Pulse Ox O2 Delivery O2 Flow Rate FiO2 04/26/20 04:00 97.9 101 20 96/57 (70) 100 04/26/20 00:00 97.9 102 20 90/51 (64) 100 04/25/20 21:00 Nasal Cannula 1.0 04/25/20 20:00 98.2 116 20 97/57 (70) 100 04/25/20 20:00 95 Nasal Cannula 1.0 24 04/25/20 19:28 100.6 04/25/20 17:07 100.4 120 19 118/75 (89) 100 04/25/20 17:00 100.4 120 18 118/75 (89) 96 04/25/20 12:54 99.1 118 19 113/72 (86) 96 04/25/20 09:09 Room Air Intake and Output 04/25/20 04/26/20 19:00 07:00 Intake Total 1505 ml 1225 ml Output Total 800 ml 800 ml Balance 705 ml 425 ml Intake Oral 680 ml 400 ml IV Total 825 ml 825 ml Output Urine Total 800 ml 800 ml Laboratory Tests 04/25/20 17:20: Urine Color Gloria, Urine Appearance Cloudy, Urine pH 6.5, Urine Specific [place] 1.005, Urine Protein 1+H, Urine Glucose (UA) Negative, Urine Ketones Negative, Urine Blood 1+H, Urine Nitrite Negative, Urine Bilirubin Negative, Urine Ictotest Negative, Urine Urobilinogen Normal, Urine Leukocyte Esterase 2+H, Urine RBC 5-10H, Urine WBC TntcH, Urine Squamous Epithelial Cells ManyH, Urine Bacteria ManyH, Urine Yeast ManyH, Urine Random Sodium 69, Urine Creatinine 50.4 04/26/20 04:30: White Blood Count 3.2L, Red Blood Count 2.63L, Hemoglobin 7.1L, Hematocrit 22.2L , Mean Corpuscular Volume 84, Mean Corpuscular Hemoglobin 27.0, Mean Corpuscular Hemoglobin Concent 32.1, Red Cell Distribution Width 19.1H, Platelet Count 231, Mean Platelet Volume 5.8L, Neutrophils (%) (Auto) , Lymphocytes (%) (Auto) , Monocytes (%) (Auto) , Eosinophils (%) (Auto) , Basophils (%) (Auto) , Neutrophils % (Manual) [Pending], Lymphocytes % (Manual) [Pending], Platelet Estimate [Pending], Platelet Morphology [Pending], Sodium Level 138, Potassium Level 4.3, Chloride Level 109H, Carbon Dioxide Level 19L, Anion Gap 10, Blood Urea Nitrogen 20H, Creatinine 3.0H, Estimat Glomerular Filtration Rate 19.6, Glucose Level 67L, Calcium Level 8.0L, Phosphorus Level 4.9, Magnesium Level 1.4L Height (Feet): 5 Height (Inches): 7.00 Weight (Pounds): 150 Kallie Dykes M.D. Apr 26, 2020 08:55
[2020-04-26] MEDS: Miralax 17gm pkt ORAL SCH ×2 (09:00→09:38)
[2020-04-26] MEDS: Lactulose 20gm/30ml UDC ORAL SCH ×3 (09:00→18:00)
[2020-04-26] MEDS: Dronabinol 2.5mg Cap ORAL SCH ×3 (09:37→18:27)
[2020-04-26] MEDS: Docusate 100mg cap ORAL SCH ×3 (09:37→18:27)
[2020-04-26] MEDS: Ascorbic Acid 500mg tab ORAL SCH (09:37)
[2020-04-26 12:00] VITALS: BP 130/76
--- NOTE | 2020-04-26 13:34 | Cardiac Electrophysiology PN ---
Assessment/Plan Assessment/Plan 1. Sinus tachycardia due to sepsis, anemia and COVID. Can not use beta-domenico as blood pressure is 100/70. 2. COVID pneumonia. 3. Hypokalemia. 4. Hypomagnesemia. 5. History of non-Hodgkin lymphoma. 6. Leukopenia and anemia. FU Dr Valencia Getting PRBC DW RN Subjective Subjective No events in Covid isolation. On Room Air. Getting PRBC for 7.6 Objective Last 24 Hour Vital Signs Date Time Temp Pulse Resp B/P (MAP) Pulse Ox O2 Delivery O2 Flow Rate FiO2 04/26/20 10:18 98.1 04/26/20 09:00 Nasal Cannula 1.0 04/26/20 08:00 98.1 107 20 111/76 (88) 95 04/26/20 04:00 97.9 101 20 96/57 (70) 100 04/26/20 00:00 97.9 102 20 90/51 (64) 100 04/25/20 21:00 Nasal Cannula 1.0 04/25/20 20:00 98.2 116 20 97/57 (70) 100 04/25/20 20:00 95 Nasal Cannula 1.0 24 04/25/20 19:28 100.6 04/25/20 17:07 100.4 120 19 118/75 (89) 100 04/25/20 17:00 100.4 120 18 118/75 (89) 96 Intake and Output 04/25/20 04/26/20 19:00 07:00 Intake Total 1505 ml 1225 ml Output Total 800 ml 800 ml Balance 705 ml 425 ml Intake Oral 680 ml 400 ml IV Total 825 ml 825 ml Output Urine Total 800 ml 800 ml Laboratory Tests Test 04/25/20 17:20 04/26/20 04:30 Urine Color Gloria Urine Appearance Cloudy Urine pH 6.5 (4.5-8.0) Urine Specific [place] 1.005 (1.005-1.035) Urine Protein 1+ (NEGATIVE) H Urine Glucose (UA) Negative (NEGATIVE) Urine Ketones Negative (NEGATIVE) Urine Blood 1+ (NEGATIVE) H Urine Nitrite Negative (NEGATIVE) Urine Bilirubin Negative (NEGATIVE) Urine Ictotest Negative (NEGATIVE) Urine Urobilinogen Normal MG/DL (0.0-1.0) Urine Leukocyte Esterase 2+ (NEGATIVE) H Urine RBC 5-10 /HPF (0 - 2) H Urine WBC Tntc /HPF (0 - 2) H Urine Squamous Epithelial Cells Many /LPF (NONE/OCC) H Urine Bacteria Many /HPF (NONE) H Urine Yeast Many /HPF (NONE) H Urine Random Sodium 69 mmol/L (20-110) Urine Creatinine 50.4 MG/DL (30.0-125.0) White Blood Count 3.2 K/UL (4.8-10.8) L Red Blood Count 2.63 M/UL (4.20-5.40) L Hemoglobin 7.1 G/DL (12.0-16.0) L Hematocrit 22.2 % (37.0-47.0) L Mean Corpuscular Volume 84 FL (80-99) Mean Corpuscular Hemoglobin 27.0 PG (27.0-31.0) Mean Corpuscular Hemoglobin Concent 32.1 G/DL (32.0-36.0) Red Cell Distribution Width 19.1 % (11.6-14.8) H Platelet Count 231 K/UL (150-450) Mean Platelet Volume 5.8 FL (6.5-10.1) L Neutrophils (%) (Auto) % (45.0-75.0) Lymphocytes (%) (Auto) % (20.0-45.0) Monocytes (%) (Auto) % (1.0-10.0) Eosinophils (%) (Auto) % (0.0-3.0) Basophils (%) (Auto) % (0.0-2.0) Differential Total Cells Counted 100 Neutrophils % (Manual) 63 % (45-75) Lymphocytes % (Manual) 19 % (20-45) L Monocytes % (Manual) 9 % (1-10) Eosinophils % (Manual) 7 % (0-3) H Basophils % (Manual) 0 % (0-2) Band Neutrophils 2 % (0-8) Platelet Estimate Adequate Platelet Morphology Normal Hypochromasia 2+ Anisocytosis 1+ Sodium Level 138 MMOL/L (136-145) Potassium Level 4.3 MMOL/L (3.5-5.1) Chloride Level 109 MMOL/L (98-107) H Carbon Dioxide Level 19 MMOL/L (21-32) L Anion Gap 10 mmol/L (5-15) Blood Urea Nitrogen 20 mg/dL (7-18) H Creatinine 3.0 MG/DL (0.55-1.30) H Estimat Glomerular Filtration Rate 19.6 mL/min (>60) Glucose Level 67 MG/DL (74-106) L Calcium Level 8.0 MG/DL (8.5-10.1) L Phosphorus Level 4.9 MG/DL (2.5-4.9) Magnesium Level 1.4 MG/DL (1.8-2.4) L Objective HEAD AND NECK: No JVD. LUNGS: Coarse rhonchi. CARDIOVASCULAR: Regular S1 and S2 with no gallop or murmur. ABDOMEN: Soft. EXTREMITIES: No pitting edema. Ehsan Wan MD Apr 26, 2020 13:34
--- NOTE | 2020-04-26 14:48 | NUR ---
NURSE NOTES: Patient refused to take baclofen, Miralax, lactulose and heparin despite risks and benefits explained x3. RN advised the patient to keep exercising as much as she can such as wiggling her toes. Will continue to monitor.
--- NOTE | 2020-04-26 15:07 | Infectious Diseases Prog Note ---
Assessment/Plan Assessment/Plan A) 1) covid-19 virus infection with fevers, saturations stable, CT A/P/C - no obvious pna or abscess, sats stable, no sob, cultures negative 2) hx lymphoma and chemo, anemia, history of port line infection and finishing vancomycin treatment course - end date per patient 3) JIM noted - vancomycin discontinued - sufficient levels to finish treatment course - creatinine improved today 4) allergies - nkda, fh-nc, sh-negative 5) d/w RN 6) notes and records noted P) 1) no indication for covid-19 tx, sats stable, no sob 2) s/p vancomycin 3) monitor labs, monitor for hypoxia, monitor fevers, cultures negative 4) will f/u 5) d/w patient Subjective Constitutional: Denies: fever HEENT: Denies: congestion Respiratory: Denies: shortness of breath Cardiovascular: Denies: chest pain Gastrointestinal/Abdominal: Denies: nausea, vomiting, diarrhea Genitourinary: Reports: other Neurologic: Denies: headache Psychiatric: Denies: depression Skin: Denies: rash Hematologic: Denies: bleeding Musculoskeletal: Denies: pain Allergies: Coded Allergies: No Known Allergies (Unverified , 04/11/20) Objective Last 24 Hour Vital Signs Date Time Temp Pulse Resp B/P (MAP) Pulse Ox O2 Delivery O2 Flow Rate FiO2 04/26/20 12:00 98.1 91 20 130/76 (94) 96 04/26/20 10:18 98.1 04/26/20 09:00 Nasal Cannula 1.0 04/26/20 08:00 98.1 107 20 111/76 (88) 95 04/26/20 04:00 97.9 101 20 96/57 (70) 100 04/26/20 00:00 97.9 102 20 90/51 (64) 100 04/25/20 21:00 Nasal Cannula 1.0 04/25/20 20:00 98.2 116 20 97/57 (70) 100 04/25/20 20:00 95 Nasal Cannula 1.0 24 04/25/20 19:28 100.6 04/25/20 17:07 100.4 120 19 118/75 (89) 100 04/25/20 17:00 100.4 120 18 118/75 (89) 96 Height (Feet): 5 Height (Inches): 7.00 Weight (Pounds): 150 General Appearance: no acute distress HEENT: normocephalic, atraumatic, anicteric, mucous membranes moist Respiratory/Chest: lungs clear, normal breath sounds, no respiratory distress, no accessory muscle use Cardiovascular: normal rate, regular rhythm, no gallop/murmur, no JVD Abdomen: normal bowel sounds, soft, non tender, no organomegaly, non distended Genitourinary: other - no eaton Extremities: no cyanosis Skin: no rash 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 There is diffuse interstitial prominence. No airspace consolidation. No pneumothorax or pleural effusion. No acute osseous abnormality. Right approach PICC terminates in the expected location of mid SVC IMPRESSION: Diffuse interstitial prominence, which is nonspecific but may be related to peribronchial thickening in the setting of infectious/inflammatory airways disease or interstitial edema. CT angio chest: Impression: No evidence of acute pulmonary embolus or other acute thoracic vascular pathology. Areas of consolidation and volume loss with associated bronchiectasis most likely represent areas of scarring and atelectasis. Note definite acute infiltrates. Other findings as noted, including evidence of prior upper thoracic spine surgery, T12 compression fracture deformity and evidence of prior vertebral augmentation procedure, sliding-type hiatal hernia, PICC CT abdomen and pelvis: Impression: Minimal distention of the rectum with feces, could represent mild rectal fecal impaction. Equivocal slight thickening of the rectal wall and stranding of the perirectal fat, if real could indicate mild stercoral proctitis Comminuted fracture of the left femoral head, neck, and intertrochanteric region, ununited. Possibly acute, but abundant soft tissues surrounding the fracture area raises possibility that this could be chronic. Correlate with clinical findings Other findings as noted, including evidence of old T12 vertebral body compression fracture and prior vertebral augmentation procedure, [place] catheter, subcentimeter low-attenuation lesions which probably represent renal cysts, small sliding-type hiatal hernia Microbiology Date/Time Source Procedure Growth Status 04/21/20 17:00 Nasopharynx Coronavirus COVID-19 PCR ([facility]) - Final Complete 04/18/20 13:05 Blood Blood Culture - Final NO GROWTH AFTER 5 DAYS Complete 04/14/20 00:45 Urine,Clean Catch Urine Culture - Final NO GROWTH AFTER 48 HOURS Complete 04/12/20 01:30 Rectum - Final NO CARBAPENEM-RESISTANT ENTEROBACTERI... Complete Laboratory Tests Test 04/25/20 17:20 04/26/20 04:30 Urine Color Gloria Urine Appearance Cloudy Urine pH 6.5 (4.5-8.0) Urine Specific [place] 1.005 (1.005-1.035) Urine Protein 1+ (NEGATIVE) H Urine Glucose (UA) Negative (NEGATIVE) Urine Ketones Negative (NEGATIVE) Urine Blood 1+ (NEGATIVE) H Urine Nitrite Negative (NEGATIVE) Urine Bilirubin Negative (NEGATIVE) Urine Ictotest Negative (NEGATIVE) Urine Urobilinogen Normal MG/DL (0.0-1.0) Urine Leukocyte Esterase 2+ (NEGATIVE) H Urine RBC 5-10 /HPF (0 - 2) H Urine WBC Tntc /HPF (0 - 2) H Urine Squamous Epithelial Cells Many /LPF (NONE/OCC) H Urine Bacteria Many /HPF (NONE) H Urine Yeast Many /HPF (NONE) H Urine Random Sodium 69 mmol/L (20-110) Urine Creatinine 50.4 MG/DL (30.0-125.0) White Blood Count 3.2 K/UL (4.8-10.8) L Red Blood Count 2.63 M/UL (4.20-5.40) L Hemoglobin 7.1 G/DL (12.0-16.0) L Hematocrit 22.2 % (37.0-47.0) L Mean Corpuscular Volume 84 FL (80-99) Mean Corpuscular Hemoglobin 27.0 PG (27.0-31.0) Mean Corpuscular Hemoglobin Concent 32.1 G/DL (32.0-36.0) Red Cell Distribution Width 19.1 % (11.6-14.8) H Platelet Count 231 K/UL (150-450) Mean Platelet Volume 5.8 FL (6.5-10.1) L Neutrophils (%) (Auto) % (45.0-75.0) Lymphocytes (%) (Auto) % (20.0-45.0) Monocytes (%) (Auto) % (1.0-10.0) Eosinophils (%) (Auto) % (0.0-3.0) Basophils (%) (Auto) % (0.0-2.0) Differential Total Cells Counted 100 Neutrophils % (Manual) 63 % (45-75) Lymphocytes % (Manual) 19 % (20-45) L Monocytes % (Manual) 9 % (1-10) Eosinophils % (Manual) 7 % (0-3) H Basophils % (Manual) 0 % (0-2) Band Neutrophils 2 % (0-8) Platelet Estimate Adequate Platelet Morphology Normal Hypochromasia 2+ Anisocytosis 1+ Sodium Level 138 MMOL/L (136-145) Potassium Level 4.3 MMOL/L (3.5-5.1) Chloride Level 109 MMOL/L (98-107) H Carbon Dioxide Level 19 MMOL/L (21-32) L Anion Gap 10 mmol/L (5-15) Blood Urea Nitrogen 20 mg/dL (7-18) H Creatinine 3.0 MG/DL (0.55-1.30) H Estimat Glomerular Filtration Rate 19.6 mL/min (>60) Glucose Level 67 MG/DL (74-106) L Calcium Level 8.0 MG/DL (8.5-10.1) L Phosphorus Level 4.9 MG/DL (2.5-4.9) Magnesium Level 1.4 MG/DL (1.8-2.4) L Current Medications Medications (Trade) Dose Ordered Sig/Angelika Route PRN Reason Start Time Stop Time Status Last Admin Dose Admin Acetaminophen (Tylenol) 650 mg Q6H PRN ORAL Mild Pain (Pain Scale 1-3) 04/12/20 02:45 05/12/20 02:44 04/22/20 18:38 Acetaminophen (Tylenol) 650 mg Q6H PRN ORAL FEVER 04/12/20 16:30 05/12/20 16:29 04/25/20 17:25 Acetaminophen/ Hydrocodone Bitart ([place] 10/325) 1 tab Q6H PRN ORAL severe pain 04/22/20 11:00 04/29/20 10:59 04/26/20 06:03 Acetaminophen/ Hydrocodone Bitart ([place] 5/325) 1 tab Q6H PRN ORAL moderate pain 04/22/20 11:00 04/29/20 10:59 Allopurinol (allopurinoL) 300 mg DAILY ORAL 04/12/20 09:00 05/12/20 08:59 04/26/20 09:37 Ascorbic Acid (Vitamin C) 500 mg DAILY ORAL 04/26/20 09:00 05/26/20 08:59 04/26/20 09:37 Baclofen (Lioresal) 10 mg THREE TIMES A DAY ORAL 04/12/20 09:00 05/12/20 08:59 04/23/20 12:46 Chlorhexidine Gluconate (Christy-Hex 2%) 1 applic Q24H TOPIC 04/25/20 20:00 07/24/20 19:59 04/25/20 20:20 Docusate Sodium (Colace) 100 mg TWICE A DAY ORAL 04/20/20 09:00 05/20/20 08:59 04/26/20 09:37 Dronabinol (Marinol) 2.5 mg BID ORAL 04/25/20 18:00 07/24/20 17:59 04/26/20 09:37 Heparin Sodium (Porcine) (Heparin 5000 units/ml) 5,000 units EVERY 8 HOURS SUBQ 04/24/20 22:00 06/08/20 21:59 Lactulose (Cephulac) 20 gm THREE TIMES A DAY ORAL 04/21/20 13:00 05/21/20 12:59 04/24/20 09:35 Linaclotide (Linzess) 290 mcg BEFORE BREAKFAST ORAL 04/26/20 06:30 07/25/20 06:29 04/26/20 06:03 Lorazepam (Ativan 2mg/ml 1ml) 0.5 mg DAILYPRN PRN IV x1dose for anxiety in MRI 04/20/20 13:30 04/27/20 13:29 04/24/20 06:18 Morphine Sulfate (Morphine Sulfate) 2 mg Q3H PRN IVP Severe Pain (Pain Scale 7-10) 04/22/20 23:15 04/29/20 23:14 04/26/20 09:48 Morphine Sulfate (Morphine Sulfate) 4 mg EVERY 3 HOURS PRN IVP SEVERE BREAKTHRU PAIN 04/22/20 18:00 04/29/20 17:59 04/23/20 17:24 Multivitamins (Multivitamins) 1 tab DAILY ORAL 04/26/20 09:00 05/26/20 08:59 04/26/20 09:38 Ondansetron HCl (Zofran) 4 mg Q6H PRN IVP Nausea & Vomiting 04/19/20 13:30 05/19/20 13:29 Polyethylene Glycol (Miralax) 17 gm DAILY ORAL 04/20/20 09:00 05/20/20 08:59 04/25/20 08:57 Sodium Chloride 1,000 ml @ 75 mls/hr [id number] IV 04/24/20 11:00 05/24/20 10:59 04/26/20 03:01 Marko Rivera MD Apr 26, 2020 15:07
--- NOTE | 2020-04-26 15:17 | NUR ---
*-*DISCHARGE PLANNED*-* PATIENT HAS BEEN ACCEPTED AND WILL BE DISCHARGE BACK TO: [facility] P: [phone] FOR NURSE TO NURSE REPORT ROOM# 204.A [facility] SET FOR 4:30PM [id number]. S/W PATIENTS DARRON ORELLANA, WHO IS IN AGREEMENT WITH DISCHARGE PLAN.
[2020-04-26 16:00] VITALS: BP 122/83
--- NOTE | 2020-04-26 17:32 | General Progress Note ---
Subjective Date patient seen: Apr 26, 2020 ROS Limited/Unobtainable: No Allergies: Coded Allergies: No Known Allergies (Unverified , 04/11/20) Subjective No acute events overnight per nursing. Receiving blood transfusion. Weaning off oxygen. Renal function improving. Pain better controlled on PO pain meds. No cough, SOB. No other complaints. Review of systems: Constitutional: Denies: chills, diaphoresis, malaise, weakness, fever HEENT: Denies: eye pain, blurred vision, double vision, ear pain, nose pain, throat pain, Cardiovascular: Denies: chest pain, edema, lightheadedness, palpitations Respiratory: SEe HPI Gastrointestinal/Abdominal: Denies: abdominal pain, black stools, blood in stool, constipation, diarrhea, nausea, poor fluid intake vomiting, other Genitourinary: Denies: burning, discharge, frequency, Neurologic/Psychiatric: Denies: headache, numbness, paresthesia, new weakness, other Endocrine: Denies: excessive sweating, flushing, intolerance to cold, MSK: denies joint pains, swelling, stiffness +back pain Hematologic/Lymphatic: Denies: anemia, easy bleeding, easy bruising, Objective Last 24 Hour Vital Signs Date Time Temp Pulse Resp B/P (MAP) Pulse Ox O2 Delivery O2 Flow Rate FiO2 04/26/20 16:35 97.7 04/26/20 16:00 97.7 118 20 122/83 (96) 100 04/26/20 12:00 98.1 91 20 130/76 (94) 96 04/26/20 10:18 98.1 04/26/20 09:00 Nasal Cannula 1.0 04/26/20 08:00 98.1 107 20 111/76 (88) 95 04/26/20 04:00 97.9 101 20 96/57 (70) 100 04/26/20 00:00 97.9 102 20 90/51 (64) 100 04/25/20 21:00 Nasal Cannula 1.0 04/25/20 20:00 98.2 116 20 97/57 (70) 100 04/25/20 20:00 95 Nasal Cannula 1.0 24 04/25/20 19:28 100.6 Intake and Output 04/25/20 04/26/20 19:00 07:00 Intake Total 1505 ml 1225 ml Output Total 800 ml 800 ml Balance 705 ml 425 ml Intake Oral 680 ml 400 ml IV Total 825 ml 825 ml Output Urine Total 800 ml 800 ml Laboratory Tests 04/26/20 04:30: White Blood Count 3.2L, Red Blood Count 2.63L, Hemoglobin 7.1L, Hematocrit 22.2L , Mean Corpuscular Volume 84, Mean Corpuscular Hemoglobin 27.0, Mean Corpuscular Hemoglobin Concent 32.1, Red Cell Distribution Width 19.1H, Platelet Count 231, Mean Platelet Volume 5.8L, Neutrophils (%) (Auto) , Lymphocytes (%) (Auto) , Monocytes (%) (Auto) , Eosinophils (%) (Auto) , Basophils (%) (Auto) , Differential Total Cells Counted 100, Neutrophils % (Manual) 63, Lymphocytes % (Manual) 19L, Monocytes % (Manual) 9, Eosinophils % (Manual) 7H, Basophils % (Manual) 0, Band Neutrophils 2, Platelet Estimate Adequate, Platelet Morphology Normal, Hypochromasia 2+, Anisocytosis 1+, Sodium Level 138, Potassium Level 4.3, Chloride Level 109H, Carbon Dioxide Level 19L, Anion Gap 10, Blood Urea Nitrogen 20H, Creatinine 3.0H, Estimat Glomerular Filtration Rate 19.6, Glucose Level 67L, Calcium Level 8.0L, Phosphorus Level 4.9, Magnesium Level 1.4L Height (Feet): 5 Height (Inches): 7.00 Weight (Pounds): 150 Objective General: WDWN female in [facility], A&O x 4, pleasant, conversant HEENT: Normocephalic cephalic atraumatic, pupils equal round reactive to light and accommodation, nares patent and no symmetrical, no tonsillar exudates, mucous membranes slighly dry CV: Regular rate regular rhythm, no murmurs, rubs, or gallops Pulm: Lungs clear to auscultation bilaterally. No wheezes, rhonchi, or rales GI: Soft, nontender, nondistended, bowel sounds present + eaton in place, no suprapubic TTP Neuro: CN 2-12 intact bilaterally, no focal signs. Moving all extremities Ext: No lower extremity edema bilaterally Skin: no rashes lesions or ulcers Msk: Joints symmetrical in upper extremity and lower extremity bilaterally, no joint swelling. + left hip pain (slightly) + mid thoracic spinal back pain Lymph: No lymphadenopathy in upper extremity and lower extremity Assessment/Plan Status: stable Assessment/Plan: #Hx of Sepsis 2' port infection #Sepsis due to COVID 19 pneumonia (febrile, tachycardic) #COVID 19+ #Continued fever of unknown origin. COVID vs. cancer related? - Still having fevers intermittently - CTM Fever curve. Could be due to underlying malignancy - Repeat Blood cultures NGTD - Repeat UA: negative - Repeat CXR: Bronchial thickening - Check CT C/A/P including CT angio to eval for PE. : reviewed. No PE. No obvious infection. Incidental left hip fracture - IV fluids as needed - D/W ID. - Port has been removed at OSH - , - ngtd - Cefepime (04/14 - 04/15) - Per patient she is to continue on Vancomycin till 04/25 - D/c vanc - ID Consult, appreciate recs - MRI C/T/L spine w/wo contrast to eval for abscess: No sign of infection, abscess or osteo #L3 lesion on MRI: bone infarct vs. osteoid osteoma vs. less likely infection #Chronic LE weakness #s/p Laminectomy earlier in the year #Chronic Back pain > d/w radiology Dr. Hedrick - d/w ID, Neuro - outpatient f/u with spine surgeon: Dr. Nino in [facility] - appreciate neurology consult: Dr. Bajwa - PT when able - Rock 5/10 Q6hr PRN moderate to severe and IV Morphine for BTP #JIM, pre-renal vs. due to vanc toxicity - Worsening > Vanc level 35 - urine lytes - Nephrology on board: D/w Dr. hatch - Fluids per nephro #Hypothyroidism, suspect central given TSH and T4 both low - endocrinology consulted: Dr. Fermin to see - FSHpending. #left hip fracture, suspect chronic > Patient states she fell 5 months ago but no recent falls. Also had hard fall on coccyx in 2018. Minimal pain in left hip > Patient states she has not walked for months but is not paraplegic. Severe debilitation. - appreciate ortho eval: Dr. Payan. Given patient bed bound risks > benefits. 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 History of lymphoma per patient and is receiving chemo tx, last known to be February 2020. - 2U PRBCs ordered and transfused on admission - Hb Stable - Rectic count wnl, Iron and Iron sat low, Ferritin wnl - No active signs of bleeding - Hematology consulted, appreciate recs - CTM for signs of bleeding - Patient will need colonoscopy as outpatient in the future : Gi Consulted; Dr. Carter #sinus tachycardia, due to COVID pna - monitor EKG - Cardiology consulted: Dr. Wan #proctitis #Constipation- > improving - Aggressive bowel regimen - GI aware: Appreciate recommendations - Colace, miralax, - s/p enema and ducolax with improvement #chronic urinary retention - since patient had spine surgery earlier in the year - unsure if has true urinary retention - d/w nephrology -> voiding trial, however patient refused. #Hypokalemia #hypomagnesia - Lytes replaced - appreciate nephro management FENPPX DVTPPX: per primary. Consider changing to HSQ if Cr does not imrp Fluids: per nephro Diet: regular Lines: PIV PT/OT: pending Code status:Full Dispo: back to SNF Reason for Continued Hospitalization: hypoxia, fever Dispo - Discharge back to SNF. MIPS (Merit-based Incentive Payment System) Applicable CPT: 33607, 97845 CHECK ALL THAT ARE MET: [] Measure #5 (CHF): All ages. Prescribe LINDSAY/ARB upon discharge for patients with left ventricular systolic dysfunction. If not, the reason is clearly documented in the medical chart [] Measure #8 (CHF): All ages. Prescribe a beta domenico upon discharge for patients with left ventricular systolic dysfunction. If not, the reason is clearly documented in the medical chart. [x] Measure #47: Advance care plan or surrogate decision maker documented in the medical record. [x] Measure #130 The provider has documented, updated, or reviewed the patients current medication list and has documented it in the patients note. [] Measure #374 (All): Send report to referring provider. [] Measure #407(Sepsis due to MSSA bacteremia): Age 18+ Patient treated with a beta-lactam antibiotic (Nafcillin, Oxacillin or Cefazolin) as definitive therapy. MEDICAL COMPLEXITYHigh complexity medical decision making (need 2/3 categories)Problem - need 4 points [x]Acute/new problem with new plan for workup (4 points, 1 max) [] Acute/new problem without additional workup (3 points, 1 max) [] Unstable chronic problem actively being managed (2 point each, 2 max) [x] Stable chronic problem actively being managed (1 point each, 2 max) [x] Self-limited/transient process (constipation, muscle ache, etc) (1 point each, 2 max) Data - need 4 points [x] Reviewed labs/imaging studies (1 points, 2 max) [x] Independent review of imaging (EKG, xrays, etc) (2 points, 2 max) [x] Discussed case with consult/other MD/RN (2 points, 2 max) High Risk - qualify if have one of the following: [x] Severe exacerbation of acute problem, acute mental status change, IV narcotics, monitoring drug levels (vancomycin, INR, tacrolimus etc) I spent 36 minutes on this patient's case, and 24 mins was dedicated to counseling and/or care coordination. Discussed with nephrology, RN at bedside. Time of note may not reflect time of encounter Albin Barker M.D. Apr 26, 2020 17:32
--- NOTE | 2020-04-26 18:37 | NUR ---
NURSE NOTES: RN wasted Dronabinol because the patient refused the medication. Witnessed with REA Calderon.
--- NOTE | 2020-04-26 18:43 | NUR ---
NURSE NOTES: Patient took Colace but refused Drosbinol at 1800 today. It shows on EMAR does not represent administration correctly because there was problem with scanning.
--- NOTE | 2020-04-26 19:26 | NUR ---
NURSE NOTES: Patient was supposed to be transported back to SNF by ambulance but her pulse was running high from 150s.Trending down to 130s. Her baseline for pulse is 100-118. Ambulance left without her. RN notified Dr. Dykes. He cancelled discharge to monitor one more night. RN endorsed night nurse REA Jerez.
--- NOTE | 2020-04-26 19:42 | NUR ---
NURSE HAND-OFF: Important Events on Shift: holding dc d/t tachycaidia and fever Patient Status: chil, anxious Diet: regular Pending Orders: n/a Pending Results/Labs:n/a Pending MD notification:n/a Latest Vital Signs: Temperature 97.7 , Pulse 118 , B/P 122 /83 , Respiratory Rate 20 , O2 SAT 100 , Nasal Cannula, O2 Flow Rate 1.0 . Vital Sign Comment: tachycardia, high fever Latest [place] Fall Score: 35 Fall Risk: Medium Risk Safety Measures: Call light Within Reach, Bed Alarm Zone 1, Side Rails Side Rails x2, Bed position Low and Locked. Fall Precautions: Door Sign Patient Fall Education Report given to REA Jerez.
--- NOTE | 2020-04-26 19:50 | NUR ---
NURSE NOTES: Receive a report from Nella Chaparro. Round is made. Pt is awake and alert. Noted chilling and tachycardia as 130-140bpm. No palpitation noted. On O2 1L NC. No SOB noted. Spo2 100%. PICC removal site clean with gauze dressing. Yellow urine is patent via eaton catheter. BT checked as 100.4. AM shift nurse contact Dr. Dykes for tachycardia and hold D/C today and monitor overnight. Pt made aware. Call light within reach. Will continue to monitor.
[2020-04-26 20:00] VITALS: BP 134/66
[2020-04-26] MEDS: Dyna-Hex 2% Top Sol 2oz TOPIC SCH (20:00)
--- NOTE | 2020-04-26 20:15 | NUR ---
NURSE NOTES: Notify Dr. Moctezuma for pt's fever. Receive new orders. Order noted and carried out. Will continue to monitor.
--- NOTE | 2020-04-26 21:12 | Diagnostic Imaging Report ---
EXAM: XR Chest, 1 View CLINICAL HISTORY: FLANK TECHNIQUE: Frontal view of the chest. COMPARISON: 04/18/2020. FINDINGS: Lungs: Mild prominence of central pulmonary vasculature. Probable subsegmental atelectasis at the left lung base. Pleural space: Unremarkable. No pneumothorax. Heart: Cardiomegaly. Mediastinum: Unremarkable. Bones/joints: Osteopenia. Post vertebroplasty changes of the upper lumbar spine. IMPRESSION: 1. Cardiomegaly. 2. Mild prominence of central coronary vasculature. 3. Clinical correlation is advised to assess for the possibility of incipient congestive heart failure. 4. Osteopenia.
--- NOTE | 2020-04-26 21:45 | NUR ---
NURSE NOTES: Pt refuses to take Heparin despite benefits and risks.
--- NOTE | 2020-04-26 22:40 | Neurology Progress Note ---
Interim History Interim History ROS Limited/Unobtainable: No Interim History remains in pain Objective Physical Exam Last Vital Signs Date Time Temp Pulse Resp B/P (MAP) Pulse Ox O2 Delivery O2 Flow Rate FiO2 04/26/20 16:35 97.7 04/26/20 16:00 118 20 122/83 (96) 100 04/26/20 09:00 Nasal Cannula 1.0 04/25/20 20:00 24 Laboratory Tests Test 04/26/20 04:30 White Blood Count 3.2 K/UL (4.8-10.8) L Red Blood Count 2.63 M/UL (4.20-5.40) L Hemoglobin 7.1 G/DL (12.0-16.0) L Hematocrit 22.2 % (37.0-47.0) L Mean Corpuscular Volume 84 FL (80-99) Mean Corpuscular Hemoglobin 27.0 PG (27.0-31.0) Mean Corpuscular Hemoglobin Concent 32.1 G/DL (32.0-36.0) Red Cell Distribution Width 19.1 % (11.6-14.8) H Platelet Count 231 K/UL (150-450) Mean Platelet Volume 5.8 FL (6.5-10.1) L Neutrophils (%) (Auto) % (45.0-75.0) Lymphocytes (%) (Auto) % (20.0-45.0) Monocytes (%) (Auto) % (1.0-10.0) Eosinophils (%) (Auto) % (0.0-3.0) Basophils (%) (Auto) % (0.0-2.0) Differential Total Cells Counted 100 Neutrophils % (Manual) 63 % (45-75) Lymphocytes % (Manual) 19 % (20-45) L Monocytes % (Manual) 9 % (1-10) Eosinophils % (Manual) 7 % (0-3) H Basophils % (Manual) 0 % (0-2) Band Neutrophils 2 % (0-8) Platelet Estimate Adequate Platelet Morphology Normal Hypochromasia 2+ Anisocytosis 1+ Sodium Level 138 MMOL/L (136-145) Potassium Level 4.3 MMOL/L (3.5-5.1) Chloride Level 109 MMOL/L (98-107) H Carbon Dioxide Level 19 MMOL/L (21-32) L Anion Gap 10 mmol/L (5-15) Blood Urea Nitrogen 20 mg/dL (7-18) H Creatinine 3.0 MG/DL (0.55-1.30) H Estimat Glomerular Filtration Rate 19.6 mL/min (>60) Glucose Level 67 MG/DL (74-106) L Calcium Level 8.0 MG/DL (8.5-10.1) L Phosphorus Level 4.9 MG/DL (2.5-4.9) Magnesium Level 1.4 MG/DL (1.8-2.4) L Impression/Recommendations Problems: (1) Anemia Status: stable Diagnostic Impression Chronic weakness, LE worse than UEs MRI spine noted, osteoma wo spine compression slplaminectomy COVID 19 pneumonia (febrile, tachycardic) Hx of Lymphoma cont medical support pain control PT as able Renny Bajwa MD Apr 26, 2020 22:40
[2020-04-27] VITALS: BP 95/47
[2020-04-27] MEDS: Morphine Sulfate 2mg/ml Inj(IV/IM USE ONLY) IVP PRN ×3 (03:55→21:19)
[2020-04-27 04:00] VITALS: BP 101/60
[2020-04-27] MEDS: Heparin 5000 units/ml inj SUBQ SCH ×3 (06:00→21:18)
--- NOTE | 2020-04-27 06:00 | NUR ---
NURSE NOTES: Fever dropped as 98.1. No chilling or febrile sensation. Encourage isometric exercise. Pt verbalizes understanding and demonstrated. Will continue to monitor. Dr. Hill came and updated pt's conditions including x-ray result.
--- NOTE | 2020-04-27 06:38 | Hematology/Onc Progress Note ---
Assessment/Plan Assessment/Plan # Leukopenia COVID19++++++++++ --> hep and hiv order as needed --> wbc 4-->3-->2.9->2->4.6--4.1-->3.6 --> Neupogen 300 x1 04/21 --> isolation if anc<500 # Non-Hodgkins Lymphoma is s/p chemotherapy in the past --> to return to [facility] for further treatment --> likely for ct/pet as outpatient --> CT Here shows no e/o disease --> imaging has been reviewed thus far --> end date of 04/2020 # Anemia likely of chronic disease -- does not appear to have iron deficiency --> transfuse as needed, tibc and ferritin are cw acd --> hgb 7.8-->8.6-->8.5-->8.4->7.6 --> no hemolysis is noted --> s/p transfusion on admission # Covid 19++ with SIRS (febrile, tachycardic) --> per pulm and id --> CXR with diffuse non-specific inflammatory/infectious process --> s/p Cefepime (04/14 - 04/15) # Hypokalemia # Hypomagnesia # Chronic Back pain # Full Code Appreciate consultation and dw Rn Subjective HEENT: Denies: no symptoms, eye pain, blurred vision, tearing, double vision, ear pain, ear discharge, nose pain, nose congestion, throat pain, throat swelling, mouth pain, mouth swelling, other Cardiovascular: Denies: no symptoms, chest pain, edema, irregular heart rate, lightheadedness, palpitations, syncope, other Respiratory: Denies: no symptoms, cough, shortness of breath, SOB with excertion, SOB at rest, sputum, wheezing, other Gastrointestinal/Abdominal: Denies: no symptoms, abdomen distended, abdominal pain, black stools, tarry stools, blood in stool, constipated, diarrhea, difficulty swallowing, nausea, poor appetite, poor fluid intake, rectal bleeding, vomiting, other Genitourinary: Denies: no symptoms, burning, discharge, frequency, flank pain, hematuria, incontinence, pain, urgency, other Neurologic/Psychiatric: Denies: no symptoms, anxiety, depressed, emotional problems, headache, numbness, paresthesia, pre-existing deficit, seizure, tingling, tremors, weakness, other Endocrine: Denies: no symptoms, excessive sweating, flushing, intolerance to cold, intolerance to heat, increased hunger, increased thirst, increased urine, unexplained weight gain, unexplained weight loss, other Hematologic/Lymphatic: Denies: no symptoms, anemia, easy bleeding, easy bruising, adenopathy, other Allergies: Coded Allergies: No Known Allergies (Unverified , 04/11/20) Subjective 04/17 is on room air, more comfortable, potential dc to snf 04/18 labs reviewed, no bleeding, meds noted, no night sweats 04/19 sleeping comfortably, no major events, no night sweats 04/20 meds noted, labs reviewed, wbc 2.9, hep and hiv is neg 04/21 labs reviewed, in am, the wbc was 2, to get neupogen x 1 dose now 04/23 labs noted, no bleeding, wbc 4, hgb remains low, but holding off trans 04/24 labs are pending for am, meds reviewed, no bleeding 04/25 meds reviewed, labs noted, no night sweats, dw rn at bedside, no new events 04/26 labs reviewed, meds noted, no bleeding, wbc 3, hgb 7.6 04/27 dw rn at bedside, labs are noted, no bleeding, refusing heparin now sq Objective Objective Current Medications Medications (Trade) Dose Ordered Sig/Angelika Route PRN Reason Start Time Stop Time Status Last Admin Dose Admin Acetaminophen (Tylenol) 650 mg Q6H PRN ORAL Mild Pain (Pain Scale 1-3) 04/12/20 02:45 05/12/20 02:44 04/22/20 18:38 Acetaminophen (Tylenol) 650 mg Q6H PRN ORAL FEVER 04/12/20 16:30 05/12/20 16:29 04/27/20 00:38 Acetaminophen/ Hydrocodone Bitart ([place] 10/325) 1 tab Q6H PRN ORAL severe pain 04/22/20 11:00 04/29/20 10:59 04/26/20 21:57 Acetaminophen/ Hydrocodone Bitart ([place] 5/325) 1 tab Q6H PRN ORAL moderate pain 04/22/20 11:00 04/29/20 10:59 Allopurinol (allopurinoL) 300 mg DAILY ORAL 04/12/20 09:00 05/12/20 08:59 04/26/20 09:37 Ascorbic Acid (Vitamin C) 500 mg DAILY ORAL 04/26/20 09:00 05/26/20 08:59 04/26/20 09:37 Baclofen (Lioresal) 10 mg THREE TIMES A DAY ORAL 04/12/20 09:00 05/12/20 08:59 04/23/20 12:46 Chlorhexidine Gluconate (Christy-Hex 2%) 1 applic Q24H TOPIC 04/25/20 20:00 07/24/20 19:59 04/25/20 20:20 Docusate Sodium (Colace) 100 mg TWICE A DAY ORAL 04/27/20 09:00 05/20/20 08:59 Dronabinol (Marinol) 2.5 mg BID ORAL 04/27/20 09:00 07/24/20 17:59 Heparin Sodium (Porcine) (Heparin 5000 units/ml) 5,000 units EVERY 8 HOURS SUBQ 04/24/20 22:00 06/08/20 21:59 Lactulose (Cephulac) 20 gm THREE TIMES A DAY ORAL 04/21/20 13:00 05/21/20 12:59 04/24/20 09:35 Linaclotide (Linzess) 290 mcg BEFORE BREAKFAST ORAL 04/26/20 06:30 07/25/20 06:29 04/27/20 06:12 Lorazepam (Ativan 2mg/ml 1ml) 0.5 mg DAILYPRN PRN IV x1dose for anxiety in MRI 04/20/20 13:30 04/27/20 13:29 04/24/20 06:18 Morphine Sulfate (Morphine Sulfate) 2 mg Q3H PRN IVP Severe Pain (Pain Scale 7-10) 04/22/20 23:15 04/29/20 23:14 04/27/20 03:55 Morphine Sulfate (Morphine Sulfate) 4 mg EVERY 3 HOURS PRN IVP SEVERE BREAKTHRU PAIN 04/22/20 18:00 04/29/20 17:59 04/23/20 17:24 Multivitamins (Multivitamins) 1 tab DAILY ORAL 04/26/20 09:00 05/26/20 08:59 04/26/20 09:38 Ondansetron HCl (Zofran) 4 mg Q6H PRN IVP Nausea & Vomiting 04/19/20 13:30 05/19/20 13:29 Polyethylene Glycol (Miralax) 17 gm DAILY ORAL 04/20/20 09:00 05/20/20 08:59 04/25/20 08:57 Sodium Chloride 1,000 ml @ 50 mls/hr Q20H IV 04/26/20 20:15 05/26/20 20:14 04/27/20 02:00 Last 24 Hour Vital Signs Date Time Temp Pulse Resp B/P (MAP) Pulse Ox O2 Delivery O2 Flow Rate FiO2 04/27/20 04:00 98.1 100 20 101/60 (74) 100 04/27/20 02:00 98.6 111 20 98 04/27/20 02:00 98.6 04/27/20 00:00 101.2 120 20 95/47 (63) 95 04/26/20 21:00 Nasal Cannula 1.0 04/26/20 20:00 101.4 138 20 134/66 (88) 100 04/26/20 16:35 97.7 04/26/20 16:00 97.7 118 20 122/83 (96) 100 04/26/20 12:00 98.1 91 20 130/76 (94) 96 04/26/20 10:18 98.1 04/26/20 09:00 Nasal Cannula 1.0 04/26/20 08:00 98.1 107 20 111/76 (88) 95 04/26/20 04:00 97.9 101 20 96/57 (70) 100 04/26/20 00:00 97.9 102 20 90/51 (64) 100 04/25/20 21:00 Nasal Cannula 1.0 04/25/20 20:00 98.2 116 20 97/57 (70) 100 04/25/20 20:00 95 Nasal Cannula 1.0 24 04/25/20 19:28 100.6 04/25/20 17:07 100.4 120 19 118/75 (89) 100 04/25/20 17:00 100.4 120 18 118/75 (89) 96 04/25/20 12:54 99.1 118 19 113/72 (86) 96 04/25/20 09:09 Room Air 04/25/20 08:41 98.2 114 19 109/69 (82) 96 04/25/20 07:00 96 Nasal Cannula 1.0 24 Intake and Output 04/26/20 04/27/20 19:00 07:00 Intake Total 800 ml 240 ml Output Total 1400 ml Balance -600 ml 240 ml Intake Oral 800 ml 240 ml Output Urine Total 1400 ml Labs Test 04/24/20 15:46 04/25/20 05:45 04/25/20 17:20 04/26/20 04:30 POC Whole Blood Glucose 261 MG/DL (74-106) White Blood Count 3.3 K/UL (4.8-10.8) 3.2 K/UL (4.8-10.8) Red Blood Count 2.85 M/UL (4.20-5.40) 2.63 M/UL (4.20-5.40) Hemoglobin 7.6 G/DL (12.0-16.0) 7.1 G/DL (12.0-16.0) Hematocrit 24.0 % (37.0-47.0) 22.2 % (37.0-47.0) Mean Corpuscular Volume 84 FL (80-99) 84 FL (80-99) Mean Corpuscular Hemoglobin 26.8 PG (27.0-31.0) 27.0 PG (27.0-31.0) Mean Corpuscular Hemoglobin Concent 31.8 G/DL (32.0-36.0) 32.1 G/DL (32.0-36.0) Red Cell Distribution Width 18.9 % (11.6-14.8) 19.1 % (11.6-14.8) Platelet Count 347 K/UL (150-450) 231 K/UL (150-450) Mean Platelet Volume 5.2 FL (6.5-10.1) 5.8 FL (6.5-10.1) Neutrophils (%) (Auto) % (45.0-75.0) % (45.0-75.0) Lymphocytes (%) (Auto) % (20.0-45.0) % (20.0-45.0) Monocytes (%) (Auto) % (1.0-10.0) % (1.0-10.0) Eosinophils (%) (Auto) % (0.0-3.0) % (0.0-3.0) Basophils (%) (Auto) % (0.0-2.0) % (0.0-2.0) Differential Total Cells Counted 100 100 Neutrophils % (Manual) 53 % (45-75) 63 % (45-75) Lymphocytes % (Manual) 28 % (20-45) 19 % (20-45) Monocytes % (Manual) 18 % (1-10) 9 % (1-10) Eosinophils % (Manual) 1 % (0-3) 7 % (0-3) Basophils % (Manual) 0 % (0-2) 0 % (0-2) Band Neutrophils 0 % (0-8) 2 % (0-8) Platelet Estimate Adequate Adequate Platelet Morphology Normal Normal Hypochromasia 1+ 2+ Anisocytosis 1+ 1+ Sodium Level 138 MMOL/L (136-145) 138 MMOL/L (136-145) Potassium Level 4.1 MMOL/L (3.5-5.1) 4.3 MMOL/L (3.5-5.1) Chloride Level 107 MMOL/L (98-107) 109 MMOL/L (98-107) Carbon Dioxide Level 21 MMOL/L (21-32) 19 MMOL/L (21-32) Anion Gap 11 mmol/L (5-15) 10 mmol/L (5-15) Blood Urea Nitrogen 16 mg/dL (7-18) 20 mg/dL (7-18) Creatinine 3.7 MG/DL (0.55-1.30) 3.0 MG/DL (0.55-1.30) Estimat Glomerular Filtration Rate 15.5 mL/min (>60) 19.6 mL/min (>60) Glucose Level 72 MG/DL (74-106) 67 MG/DL (74-106) Calcium Level 8.2 MG/DL (8.5-10.1) 8.0 MG/DL (8.5-10.1) Random Vancomycin Level 33.6 ug/mL Urine Color Gloria Urine Appearance Cloudy Urine pH 6.5 (4.5-8.0) Urine Specific [place] 1.005 (1.005-1.035) Urine Protein 1+ (NEGATIVE) Urine Glucose (UA) Negative (NEGATIVE) Urine Ketones Negative (NEGATIVE) Urine Blood 1+ (NEGATIVE) Urine Nitrite Negative (NEGATIVE) Urine Bilirubin Negative (NEGATIVE) Urine Ictotest Negative (NEGATIVE) Urine Urobilinogen Normal MG/DL (0.0-1.0) Urine Leukocyte Esterase 2+ (NEGATIVE) Urine RBC 5-10 /HPF (0 - 2) Urine WBC Tntc /HPF (0 - 2) Urine Squamous Epithelial Cells Many /LPF (NONE/OCC) Urine Bacteria Many /HPF (NONE) Urine Yeast Many /HPF (NONE) Urine Random Sodium 69 mmol/L (20-110) Urine Creatinine 50.4 MG/DL (30.0-125.0) Phosphorus Level 4.9 MG/DL (2.5-4.9) Magnesium Level 1.4 MG/DL (1.8-2.4) Height (Feet): 5 Height (Inches): 7.00 Weight (Pounds): 150 Objective Gen: nad Pulm: ctab, no cwr CV: rrr Abd: soft, nt Ext: no cce Martinez Hill MD Apr 27, 2020 06:38
--- NOTE | 2020-04-27 07:17 | NUR ---
NURSE HAND-OFF: Important Events on Shift: Fever--> culture: blood and urine/ DC hold/ pain control x2 Patient Status: [stable] Diet: [regular] Pending Orders: [] Pending Results/Labs:[] Pending MD notification:[] Latest Vital Signs: Temperature 98.1 , Pulse 100 , B/P 101 /60 , Respiratory Rate 20 , O2 SAT 100 , Nasal Cannula, O2 Flow Rate 1.0 . Vital Sign Comment: [] Latest [place] Fall Score: 55 Fall Risk: High Risk Safety Measures: Call light Within Reach, Bed Alarm Zone 1, Side Rails Side Rails x2, Bed position Low and Locked. Fall Precautions: Door Sign Patient Fall Education
[2020-04-27 07:19] LABS: CALCIUM 7.8 MG/DL (8.5-10.1); CREATININE 1.7 MG/DL (0.55-1.30); POTASSIUM 3.6 MMOL/L (3.5-5.1)
--- NOTE | 2020-04-27 07:30 | NUR ---
HAND-OFF: Report given to REA Mccarthy. Round is done.
--- NOTE | 2020-04-27 07:35 | NUR ---
NURSE NOTES: WALKING ROUNDS DONE WITH NIGHT RN. PATIENT AWAKE IN BED HAVING BREAKFAST. DISCUSSED PLAN OF CARE FOR THE DAY. VERBALIZED UNDERSTANDING. NEEDS MET AT THIS TIME. PAIN CONTROLLED. BED IN LOW AND LOCKED POSITION. CALL LIGHT WITHIN REACH.
[2020-04-27 08:00] VITALS: BP 110/69
[2020-04-27 08:20] LABS: HEMATOCRIT 30.1 % (37.0-47.0); HEMOGLOBIN 9.3 G/DL (12.0-16.0); MEAN CORPUSCULAR VOLUME 90 FL (80-99); PLATELET COUNT 286 K/UL (150-450); RED BLOOD COUNT 3.35 M/UL (4.20-5.40); RED CELL DISTRIBUTION WIDTH 17.8 % (11.6-14.8); WHITE BLOOD COUNT 3.2 K/UL (4.8-10.8)
--- NOTE | 2020-04-27 08:42 | Pulmonology Progress Note ---
Subjective ROS Limited/Unobtainable: No Constitutional: Reports: fever, fatigue HEENT: Repors: no symptoms; Denies: visual change, discharge Respiratory: Reports: no symptoms, dry cough - intermittent dry cough; Denies: shortness of breath, wheezing Cardiovascular: Reports: no symptoms Gastrointestinal/Abdominal: Denies: nausea, vomiting, diarrhea Psychiatric: Denies: depression Skin: Denies: rash Musculoskeletal: Denies: pain Allergies: Coded Allergies: No Known Allergies (Unverified , 04/11/20) Objective Last 24 Hour Vital Signs Date Time Temp Pulse Resp B/P (MAP) Pulse Ox O2 Delivery O2 Flow Rate FiO2 04/27/20 04:00 98.1 100 20 101/60 (74) 100 04/27/20 02:00 98.6 111 20 98 04/27/20 02:00 98.6 04/27/20 00:00 101.2 120 20 95/47 (63) 95 04/26/20 21:00 Nasal Cannula 1.0 04/26/20 20:00 101.4 138 20 134/66 (88) 100 04/26/20 16:35 97.7 04/26/20 16:00 97.7 118 20 122/83 (96) 100 04/26/20 12:00 98.1 91 20 130/76 (94) 96 04/26/20 10:18 98.1 04/26/20 09:00 Nasal Cannula 1.0 Intake and Output 04/26/20 04/27/20 19:00 07:00 Intake Total 800 ml 240 ml Output Total 1400 ml 1700 ml Balance -600 ml -1460 ml Intake Oral 800 ml 240 ml Output Urine Total 1400 ml 1700 ml Objective 04/26 on and off 1 L NC; NAD 04/26 still on 1 L NC; NAD 04/25 no change respiratory-salomon 04/24 no change 04/23 on and off 1 lpm NC 04/22 saturating well on and off 1 lpm NC 04/21 no change 04/20 pt saturating well on 2 lpm NC; NAD 04/19 pt saturating well on 2 lpm NC; NAD 04/18 pt saturating well on 2 lpm NC General Appearance: WD/WN, no acute distress HEENT: normocephalic, atraumatic Respiratory: lungs clear Cardiovascular: normal rate, regular rhythm Abdomen: soft, non tender Genitourinary: other - Morales Extremities: no edema Laboratory Tests 04/27/20 04:00: White Blood Count 3.2L, Red Blood Count 3.35L, Hemoglobin 9.3#L, Hematocrit 30.1#L, Mean Corpuscular Volume 90, Mean Corpuscular Hemoglobin 27.6, Mean Corpuscular Hemoglobin Concent 30.8L, Red Cell Distribution Width 17.8H, Platelet Count 286, Mean Platelet Volume 5.2L, Neutrophils (%) (Auto) , Lymphocytes (%) (Auto) , Monocytes (%) (Auto) , Eosinophils (%) (Auto) , Basophils (%) (Auto) , Neutrophils % (Manual) [Pending], Lymphocytes % (Manual) [Pending], Platelet Estimate [Pending], Platelet Morphology [Pending], Sodium Level 140, Potassium Level 3.6, Chloride Level 108H, Carbon Dioxide Level 20L, Anion Gap 12, Blood Urea Nitrogen 19H, Creatinine 1.7H, Estimat Glomerular Filtration Rate 37.9, Glucose Level 63L, Calcium Level 7.8L Current Medications Medications (Trade) Dose Ordered Sig/Angelika Route PRN Reason Start Time Stop Time Status Last Admin Dose Admin Acetaminophen (Tylenol) 650 mg Q6H PRN ORAL Mild Pain (Pain Scale 1-3) 04/12/20 02:45 05/12/20 02:44 04/22/20 18:38 Acetaminophen (Tylenol) 650 mg Q6H PRN ORAL FEVER 04/12/20 16:30 05/12/20 16:29 04/27/20 00:38 Acetaminophen/ Hydrocodone Bitart ([place] 10/325) 1 tab Q6H PRN ORAL severe pain 04/22/20 11:00 04/29/20 10:59 04/26/20 21:57 Acetaminophen/ Hydrocodone Bitart ([place] 5/325) 1 tab Q6H PRN ORAL moderate pain 04/22/20 11:00 04/29/20 10:59 Allopurinol (allopurinoL) 300 mg DAILY ORAL 04/12/20 09:00 05/12/20 08:59 04/26/20 09:37 Ascorbic Acid (Vitamin C) 500 mg DAILY ORAL 04/26/20 09:00 05/26/20 08:59 04/26/20 09:37 Baclofen (Lioresal) 10 mg THREE TIMES A DAY ORAL 04/12/20 09:00 05/12/20 08:59 04/23/20 12:46 Chlorhexidine Gluconate (Christy-Hex 2%) 1 applic Q24H TOPIC 04/25/20 20:00 07/24/20 19:59 04/25/20 20:20 Docusate Sodium (Colace) 100 mg TWICE A DAY ORAL 04/27/20 09:00 05/20/20 08:59 Dronabinol (Marinol) 2.5 mg BID ORAL 04/27/20 09:00 07/24/20 17:59 Heparin Sodium (Porcine) (Heparin 5000 units/ml) 5,000 units EVERY 8 HOURS SUBQ 04/24/20 22:00 06/08/20 21:59 Lactulose (Cephulac) 20 gm THREE TIMES A DAY ORAL 04/21/20 13:00 05/21/20 12:59 04/24/20 09:35 Linaclotide (Linzess) 290 mcg BEFORE BREAKFAST ORAL 04/26/20 06:30 07/25/20 06:29 04/27/20 06:12 Lorazepam (Ativan 2mg/ml 1ml) 0.5 mg DAILYPRN PRN IV x1dose for anxiety in MRI 04/20/20 13:30 04/27/20 13:29 04/24/20 06:18 Morphine Sulfate (Morphine Sulfate) 2 mg Q3H PRN IVP Severe Pain (Pain Scale 7-10) 04/22/20 23:15 04/29/20 23:14 04/27/20 03:55 Morphine Sulfate (Morphine Sulfate) 4 mg EVERY 3 HOURS PRN IVP SEVERE BREAKTHRU PAIN 04/22/20 18:00 04/29/20 17:59 04/23/20 17:24 Multivitamins (Multivitamins) 1 tab DAILY ORAL 04/26/20 09:00 05/26/20 08:59 04/26/20 09:38 Ondansetron HCl (Zofran) 4 mg Q6H PRN IVP Nausea & Vomiting 04/19/20 13:30 05/19/20 13:29 Polyethylene Glycol (Miralax) 17 gm DAILY ORAL 04/20/20 09:00 05/20/20 08:59 04/25/20 08:57 Sodium Chloride 1,000 ml @ 50 mls/hr Q20H IV 04/26/20 20:15 05/26/20 20:14 04/27/20 02:00 Assessment/Plan Assessment/Plan 1. COVID-19 positivity. - COVID-19 PCR 04/21 positive: cont isolation - no indication for steroid or remdesivir given her normoxemia at this time - s/p cefepime - CXR with diffuse non-specific inflammatory/infectious process - cont supplemental oxygen as needed - CT A/P/C - no obvious pna or abscess, cultures negative 2. Immunocompromised state with history of non-Hodgkin lymphoma. - on chemo - h/o port line infection; s/p Vanco - to return to onco for further Tx per heme 3. Fever - urine culture, blood culture pending per nephro 4. Hx of Hypertension. 5. Gout. 6. Anemia - s/p pRBC DVT ppx - on SCD - pt refusing heparin Low TSH; improving - Dr. Fermin following - no need for levothyroxine per Dr. 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
[2020-04-27] MEDS: Lactulose 20gm/30ml UDC ORAL SCH ×3 (09:21→18:00)
[2020-04-27] MEDS: Ascorbic Acid 500mg tab ORAL SCH (09:22)
[2020-04-27] MEDS: Dronabinol 2.5mg Cap ORAL SCH ×2 (09:22→18:00)
[2020-04-27] MEDS: Miralax 17gm pkt ORAL SCH (09:22)
[2020-04-27] MEDS: Docusate 100mg cap ORAL SCH ×2 (09:22→18:00)
--- NOTE | 2020-04-27 09:33 | General Progress Note ---
Subjective ROS Limited/Unobtainable: Yes Allergies: Coded Allergies: No Known Allergies (Unverified , 04/11/20) Objective Last 24 Hour Vital Signs Date Time Temp Pulse Resp B/P (MAP) Pulse Ox O2 Delivery O2 Flow Rate FiO2 04/27/20 08:00 97.2 104 18 110/69 (83) 95 04/27/20 04:00 98.1 100 20 101/60 (74) 100 04/27/20 02:00 98.6 111 20 98 04/27/20 02:00 98.6 04/27/20 00:00 101.2 120 20 95/47 (63) 95 04/26/20 21:00 Nasal Cannula 1.0 04/26/20 20:00 101.4 138 20 134/66 (88) 100 04/26/20 16:35 97.7 04/26/20 16:00 97.7 118 20 122/83 (96) 100 04/26/20 12:00 98.1 91 20 130/76 (94) 96 04/26/20 10:18 98.1 Intake and Output 04/26/20 04/27/20 19:00 07:00 Intake Total 800 ml 240 ml Output Total 1400 ml 1700 ml Balance -600 ml -1460 ml Intake Oral 800 ml 240 ml Output Urine Total 1400 ml 1700 ml Laboratory Tests 04/27/20 04:00: White Blood Count 3.2L, Red Blood Count 3.35L, Hemoglobin 9.3#L, Hematocrit 30.1#L, Mean Corpuscular Volume 90, Mean Corpuscular Hemoglobin 27.6, Mean Corpuscular Hemoglobin Concent 30.8L, Red Cell Distribution Width 17.8H, Platelet Count 286, Mean Platelet Volume 5.2L, Neutrophils (%) (Auto) , Lymphocytes (%) (Auto) , Monocytes (%) (Auto) , Eosinophils (%) (Auto) , Basophils (%) (Auto) , Neutrophils % (Manual) [Pending], Lymphocytes % (Manual) [Pending], Platelet Estimate [Pending], Platelet Morphology [Pending], Sodium Level 140, Potassium Level 3.6, Chloride Level 108H, Carbon Dioxide Level 20L, Anion Gap 12, Blood Urea Nitrogen 19H, Creatinine 1.7H, Estimat Glomerular Filtration Rate 37.9, Glucose Level 63L, Calcium Level 7.8L Height (Feet): 5 Height (Inches): 7.00 Weight (Pounds): 150 General Appearance: no apparent distress EENT: normal ENT inspection Neck: supple Cardiovascular: normal rate Respiratory/Chest: decreased breath sounds Abdomen: normal bowel sounds, non tender, soft Extremities: non-tender Assessment/Plan Status: stable Assessment/Plan: iron def anemia mild elevated CEA lymphoma on chemo covid positive neg stool ob iv iron fu H&H needs out patient fu for colonoscopy fu oncology CT reviewed colace miralax lactulose tammy west MVI vit c s/p blood transfusion yesterday Patrick Carter MD Apr 27, 2020 09:33
--- NOTE | 2020-04-27 11:25 | NUR ---
NURSE NOTES: REFUSES HEPARIN PATIENT CONTINUES TO REFUSES TO TAKE HEPARIN SUBCUTE. STATES SHE DOES NOT NEED IT. EXPLAINED BENEFITS AND RISK FACTOR OF MEDICATION BUT STILL REFUSED. PCP BEEN AWARE. PATIENT ENCOURAGED TO DO FLEXION AND EXTENSION OF FEET AND ROTATION OF ANKLES Q 5M. RETURN DEMONSTRATION GOOD. WILL CONTINUE TO ENCOURAGE TO TAKE HEPARIN WHEN DUE AGAIN.
--- NOTE | 2020-04-27 11:30 | NUR ---
RD ASSESSMENT & RECOMMENDATIONS SEE CARE ACTIVITY FOR COMPLETE ASSESSMENT DAILY ESTIMATED NEEDS: Needs based on Wound/ 68kg 25-30 kcals/kg 1234-0797 total kcals 1.25-1.5 g protein/kg 85-102 g total protein 25-30 mL/kg 2056-7854 total fluid mLs NUTRITION DIAGNOSIS: Increased kcal/prot/micronutrients needs R/T wound healing as evidenced by pt admitted w/ sacral wound, stage 2 per documentation. CURRENT DIET:REGULAR PO DIET RECOMMENDATIONS: Maintain Regular diet/ texture as tolerated ADDITIONAL RECOMMENDATIONS: * Calibrated bedscale wt * Wound healing: MVI x 1, Vit C 250mg QD LELO BID * Maintain Ensure Enlive BID + Snacks TID * Monitor lytes, replete as needed (low mag) * Accuchecks for close BG monitoring * Add D5 to IVF to prevent hypoglycemia
[2020-04-27 12:00] VITALS: BP 121/77
--- NOTE | 2020-04-27 12:54 | Cardiac Electrophysiology PN ---
Assessment/Plan Assessment/Plan 1. Sinus tachycardia due to sepsis, anemia and COVID. Can not use beta-domenico as blood pressure is 100/70. 2. COVID pneumonia. 3. Hypokalemia. 4. Hypomagnesemia. 5. History of non-Hodgkin lymphoma. 6. Leukopenia and anemia. FU Dr. Valencia 7. Fever DW RN Subjective Subjective No events in Covid isolation. On Room Air. DC cancelled for fever. S/P PRBC for 7.6 Objective Last 24 Hour Vital Signs Date Time Temp Pulse Resp B/P (MAP) Pulse Ox O2 Delivery O2 Flow Rate FiO2 04/27/20 09:53 97.2 04/27/20 09:00 Room Air 04/27/20 08:00 97.2 104 18 110/69 (83) 95 04/27/20 04:00 98.1 100 20 101/60 (74) 100 04/27/20 02:00 98.6 111 20 98 04/27/20 02:00 98.6 04/27/20 00:00 101.2 120 20 95/47 (63) 95 04/26/20 21:00 Nasal Cannula 1.0 04/26/20 20:00 101.4 138 20 134/66 (88) 100 04/26/20 16:35 97.7 04/26/20 16:00 97.7 118 20 122/83 (96) 100 Intake and Output 04/26/20 04/27/20 19:00 07:00 Intake Total 800 ml 290 ml Output Total 1400 ml 1700 ml Balance -600 ml -1410 ml Intake Oral 800 ml 240 ml IV Total 50 ml Output Urine Total 1400 ml 1700 ml Laboratory Tests Test 04/27/20 04:00 White Blood Count 3.2 K/UL (4.8-10.8) L Red Blood Count 3.35 M/UL (4.20-5.40) L Hemoglobin 9.3 G/DL (12.0-16.0) #L Hematocrit 30.1 % (37.0-47.0) #L Mean Corpuscular Volume 90 FL (80-99) Mean Corpuscular Hemoglobin 27.6 PG (27.0-31.0) Mean Corpuscular Hemoglobin Concent 30.8 G/DL (32.0-36.0) L Red Cell Distribution Width 17.8 % (11.6-14.8) H Platelet Count 286 K/UL (150-450) Mean Platelet Volume 5.2 FL (6.5-10.1) L Neutrophils (%) (Auto) % (45.0-75.0) Lymphocytes (%) (Auto) % (20.0-45.0) Monocytes (%) (Auto) % (1.0-10.0) Eosinophils (%) (Auto) % (0.0-3.0) Basophils (%) (Auto) % (0.0-2.0) Neutrophils % (Manual) Pending Lymphocytes % (Manual) Pending Platelet Estimate Pending Platelet Morphology Pending Sodium Level 140 MMOL/L (136-145) Potassium Level 3.6 MMOL/L (3.5-5.1) Chloride Level 108 MMOL/L (98-107) H Carbon Dioxide Level 20 MMOL/L (21-32) L Anion Gap 12 mmol/L (5-15) Blood Urea Nitrogen 19 mg/dL (7-18) H Creatinine 1.7 MG/DL (0.55-1.30) H Estimat Glomerular Filtration Rate 37.9 mL/min (>60) Glucose Level 63 MG/DL (74-106) L Calcium Level 7.8 MG/DL (8.5-10.1) L Objective HEAD AND NECK: No JVD. LUNGS: Coarse rhonchi. CARDIOVASCULAR: Regular S1 and S2 with no gallop or murmur. ABDOMEN: Soft. EXTREMITIES: No pitting edema. Ehsan Wan MD Apr 27, 2020 12:54
--- NOTE | 2020-04-27 13:03 | NUR ---
CASE MANAGEMENT:REVIEW SI;COVID PNEUMONIA. SEPSIS. SINUS TACHYCARDIA. 101.4 138 20 136/66 96% 1L NC H/H 9.3/30.1 BUN 19 CR 1.7 BG 63 CA 7.8 URINE CX ~ RESULT PENDING IS; MARINOL PO BID IVF NS @ 50 ML/HR VIT C PO QD HEPARIN SQ Q8 MORPHINE SULFATE IV Q3 PRN LACTULOSE PO TID TYLENOL PO Q6 PRN ALLOPURINOL PO QD MED SURG STATUS DCP;FROM [facility]
--- NOTE | 2020-04-27 15:21 | General Progress Note ---
Subjective Date patient seen: Apr 27, 2020 ROS Limited/Unobtainable: No Allergies: Coded Allergies: No Known Allergies (Unverified , 04/11/20) Subjective Patient febrile and tachycardic yesterday evening. Renal function continues to improve. Denies cough, SOB. No other complaints. Review of systems: Constitutional: Denies: chills, diaphoresis, malaise, weakness, fever HEENT: Denies: eye pain, blurred vision, double vision, ear pain, nose pain, throat pain, Cardiovascular: Denies: chest pain, edema, lightheadedness, palpitations Respiratory: SEe HPI Gastrointestinal/Abdominal: Denies: abdominal pain, black stools, blood in stool, constipation, diarrhea, nausea, poor fluid intake vomiting, other Genitourinary: Denies: burning, discharge, frequency, Neurologic/Psychiatric: Denies: headache, numbness, paresthesia, new weakness, other Endocrine: Denies: excessive sweating, flushing, intolerance to cold, MSK: denies joint pains, swelling, stiffness +back pain Hematologic/Lymphatic: Denies: anemia, easy bleeding, easy bruising, Objective Last 24 Hour Vital Signs Date Time Temp Pulse Resp B/P (MAP) Pulse Ox O2 Delivery O2 Flow Rate FiO2 04/27/20 12:00 99.0 109 19 121/77 (92) 100 04/27/20 09:53 97.2 04/27/20 09:00 Room Air 04/27/20 08:00 97.2 104 18 110/69 (83) 95 04/27/20 04:00 98.1 100 20 101/60 (74) 100 04/27/20 02:00 98.6 111 20 98 04/27/20 02:00 98.6 04/27/20 00:00 101.2 120 20 95/47 (63) 95 04/26/20 21:00 Nasal Cannula 1.0 04/26/20 20:00 101.4 138 20 134/66 (88) 100 04/26/20 16:35 97.7 04/26/20 16:00 97.7 118 20 122/83 (96) 100 Intake and Output 04/26/20 04/27/20 19:00 07:00 Intake Total 800 ml 290 ml Output Total 1400 ml 1700 ml Balance -600 ml -1410 ml Intake Oral 800 ml 240 ml IV Total 50 ml Output Urine Total 1400 ml 1700 ml Laboratory Tests 04/27/20 04:00: White Blood Count 3.2L, Red Blood Count 3.35L, Hemoglobin 9.3#L, Hematocrit 30.1#L, Mean Corpuscular Volume 90, Mean Corpuscular Hemoglobin 27.6, Mean Corpuscular Hemoglobin Concent 30.8L, Red Cell Distribution Width 17.8H, Platelet Count 286, Mean Platelet Volume 5.2L, Neutrophils (%) (Auto) , Lymphocytes (%) (Auto) , Monocytes (%) (Auto) , Eosinophils (%) (Auto) , Basophils (%) (Auto) , Differential Total Cells Counted 100, Neutrophils % (Manual) 50, Lymphocytes % (Manual) 40, Monocytes % (Manual) 7, Eosinophils % (Manual) 3, Basophils % (Manual) 0, Band Neutrophils 0, Platelet Estimate Adequate, Platelet Morphology Normal, Hypochromasia 1+, Anisocytosis 1+, Sodium Level 140, Potassium Level 3.6, Chloride Level 108H, Carbon Dioxide Level 20L, Anion Gap 12, Blood Urea Nitrogen 19H, Creatinine 1.7H, Estimat Glomerular Filtration Rate 37.9, Glucose Level 63L, Calcium Level 7.8L Height (Feet): 5 Height (Inches): 7.00 Weight (Pounds): 150 Objective General: WDWN female in NAD, A&O x 4, pleasant, conversant HEENT: Normocephalic cephalic atraumatic, pupils equal round reactive to light and accommodation, nares patent and no symmetrical, no tonsillar exudates, mucous membranes slighly dry CV: Regular rate regular rhythm, no murmurs, rubs, or gallops Pulm: Lungs clear to auscultation bilaterally. No wheezes, rhonchi, or rales GI: Soft, nontender, nondistended, bowel sounds present + eaton in place, no suprapubic TTP Neuro: CN 2-12 intact bilaterally, no focal signs. Moving all extremities Ext: No lower extremity edema bilaterally Skin: no rashes lesions or ulcers Msk: Joints symmetrical in upper extremity and lower extremity bilaterally, no joint swelling. + left hip pain (slightly) + mid thoracic spinal back pain Lymph: No lymphadenopathy in upper extremity and lower extremity Assessment/Plan Status: stable Assessment/Plan: #Hx of Sepsis 2' port infection #Sepsis due to COVID 19 pneumonia (febrile, tachycardic) #COVID 19+ #Continued fever of unknown origin. COVID vs. cancer related? - Febrile to 101 overnight - CTM Fever curve. Could be due to underlying malignancy - f/u Blood/Urine cultures 04/26 for new FFWU - Prior Blood cultures NGTD - Repeat UA: negative - Repeat CXR: Bronchial thickening - CT C/A/P including CT angio to eval for PE. : reviewed. No PE. No obvious infection. Incidental left hip fracture - IV fluids as needed - D/W ID. - Port has been removed at OSH - , - ngtd - Cefepime (04/14 - 04/15) - Per patient she is to continue on Vancomycin till 04/25 - D/c vanc - ID Consult, appreciate recs - MRI C/T/L spine w/wo contrast to eval for abscess: No sign of infection, abscess or osteo #L3 lesion on MRI: bone infarct vs. osteoid osteoma vs. less likely infection #Chronic LE weakness #s/p Laminectomy earlier in the year #Chronic Back pain > d/w radiology Dr. Hedrick - d/w ID, Neuro - outpatient f/u with spine surgeon: [facility]. Nino in [facility] - appreciate neurology consult: Dr. Bajwa - PT when able - [place] 5/10 Q6hr PRN moderate to severe and IV Morphine for BTP #JIM, pre-renal vs. due to vanc toxicity - Improving, Cr downtrending > Vanc level 35 - urine lytes - Nephrology on board: D/w Dr. hatch - Fluids per nephro #Hypothyroidism, suspect central given TSH and T4 both low - endocrinology consulted: Dr. Fermin to see - FSHpending. #left hip fracture, suspect chronic > Patient states she fell 5 months ago but no recent falls. Also had hard fall on coccyx in 2018. Minimal pain in left hip > Patient states she has not walked for months but is not paraplegic. Severe debilitation. - appreciate ortho eval: Dr. Payan. Given patient bed bound risks > benefits. 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 History of lymphoma per patient and is receiving chemo tx, last known to be February 2020. - 2U PRBCs ordered and transfused on admission - 1 u PRBC given 04/26 - Hb Stable - Rectic count wnl, Iron and Iron sat low, Ferritin wnl - No active signs of bleeding - Hematology consulted, appreciate recs - CTM for signs of bleeding - Patient will need colonoscopy as outpatient in the future : Gi Consulted; Dr. Carter #sinus tachycardia, due to COVID pna - monitor EKG - Cardiology consulted: Dr. Wan #proctitis #Constipation- > improving - Aggressive bowel regimen - GI aware: Appreciate recommendations - Colace, miralax, - s/p enema and ducolax with improvement #chronic urinary retention - since patient had spine surgery earlier in the year - unsure if has true urinary retention - d/w nephrology -> voiding trial, however patient refused. #Hypokalemia #hypomagnesia - Lytes replaced - appreciate nephro management FENPPX DVTPPX: per primary. Consider changing to HSQ if Cr does not imrp Fluids: per nephro Diet: regular Lines: PIV PT/OT: pending Code status:Full Dispo: back to SNF Reason for Continued Hospitalization: fever, tachycardia Dispo - Discharge back to SNF once fever and tachycardia improve. MIPS (Merit-based Incentive Payment System) Applicable CPT: 98219, 70999 CHECK ALL THAT ARE MET: [] Measure #5 (CHF): All ages. Prescribe LINDSAY/ARB upon discharge for patients with left ventricular systolic dysfunction. If not, the reason is clearly documented in the medical chart [] Measure #8 (CHF): All ages. Prescribe a beta domenico upon discharge for patients with left ventricular systolic dysfunction. If not, the reason is clearly documented in the medical chart. [x] Measure #47: Advance care plan or surrogate decision maker documented in the medical record. [x] Measure #130 The provider has documented, updated, or reviewed the patients current medication list and has documented it in the patients note. [] Measure #374 (All): Send report to referring provider. [] Measure #407(Sepsis due to MSSA bacteremia): Age 18+ Patient treated with a beta-lactam antibiotic (Nafcillin, Oxacillin or Cefazolin) as definitive therapy. MEDICAL COMPLEXITYHigh complexity medical decision making (need 2/3 categories)P roblem - need 4 points [x]Acute/new problem with new plan for workup (4 points, 1 max) [] Acute/new problem without additional workup (3 points, 1 max) [] Unstable chronic problem actively being managed (2 point each, 2 max) [x] Stable chronic problem actively being managed (1 point each, 2 max) [x] Self-limited/transient process (constipation, muscle ache, etc) (1 point e ach, 2 max) Data - need 4 points [x] Reviewed labs/imaging studies (1 points, 2 max) [x] Independent review of imaging (EKG, xrays, etc) (2 points, 2 max) [x] Discussed case with consult/other MD/RN (2 points, 2 max) High Risk - qualify if have one of the following: [x] Severe exacerbation of acute problem, acute mental status change, IV narcotics, monitoring drug levels (vancomycin, INR, tacrolimus etc) I spent 36 minutes on this patient's case, and 22 mins was dedicated to counseling and/or care coordination. Discussed with nephrology, ID, RN at bedside. Time of note may not reflect time of encounter Albin Barker M.D. Apr 27, 2020 15:21
[2020-04-27] MEDS: Morphine Sulfate 4mg/ml Inj (IV USE ONLY) IVP PRN (15:42)
[2020-04-27 16:00] VITALS: BP 130/88
--- NOTE | 2020-04-27 16:56 | Nephrology Progress Note ---
Assessment/Plan Plan #acute kidney injury likely due to vanco toxicity #hypokalemia- #hypomagnesemia #Acute on chronic anemia #h/p non- hodgkins lymphoma #possible sepsis #+ COVID #Femoral intertrochanteric hip fracture. - NS at 50cc/hr - Pulmonary eval - prbc transfusion prn - replete lytes - hemo-onc eval - ID eval - monitor CBC - avoid nephrotoxins - ortho eval - spine eval for L3 acute on chronic bone infarct, less likely neoplasm or infection? times spent 65 min Subjective ROS Limited/Unobtainable: No Constitutional: Reports: fever, weakness HEENT: Denies: no symptoms, eye pain, blurred vision, tearing, double vision, ear pain, ear discharge, nose pain, nose congestion, throat pain, throat swelling, mouth pain, mouth swelling, other Genitourinary: Denies: no symptoms, burning, discharge, frequency, flank pain, hematuria, incontinence, pain, urgency, other Neurologic/Psychiatric: Denies: no symptoms, anxiety, depressed, emotional problems, headache, numbness, paresthesia, pre-existing deficit, seizure, tingling, tremors, weakness, other Subjective Cr better today febrile overnight DC held hip fracture noted ortho consulted Impression: Minimal distention of the rectum with feces, could represent mild rectal fecal impaction. Equivocal slight thickening of the rectal wall and stranding of the perirectal fat, if real could indicate mild stercoral proctitis Comminuted fracture of the left femoral head, neck, and intertrochanteric region, ununited. Possibly acute, but abundant soft tissues surrounding the fracture area raises possibility that this could be chronic. Correlate with clinical findings Other findings as noted, including evidence of old T12 vertebral body compression fracture and prior vertebral augmentation procedure, Morales catheter, subc entimeter low-attenuation lesions which probably represent renal cysts, small sliding-type hiatal hernia Impression: Unusual signal abnormality of the posterolateral aspect of the L3 vertebral body on the right. This appears to be confined to the vertebral body marrow space. Prior CT scan in retrospect demonstrates sclerotic areas in the same location. Most likely differential consideration is an atypical hemangioma. Other possibilities include acute on chronic bone infarct, less likely neoplasm or infection No other unusual contrast enhancement. No findings to suggest discitis or epidural abscess. Objective Objective Last 24 Hour Vital Signs Date Time Temp Pulse Resp B/P (MAP) Pulse Ox O2 Delivery O2 Flow Rate FiO2 04/27/20 16:12 100.4 04/27/20 16:00 100.4 100 18 130/88 (102) 97 04/27/20 12:00 99.0 109 19 121/77 (92) 100 04/27/20 09:53 97.2 04/27/20 09:00 Room Air 04/27/20 08:00 97.2 104 18 110/69 (83) 95 04/27/20 04:00 98.1 100 20 101/60 (74) 100 04/27/20 02:00 98.6 111 20 98 04/27/20 02:00 98.6 04/27/20 00:00 101.2 120 20 95/47 (63) 95 04/26/20 21:00 Nasal Cannula 1.0 04/26/20 20:00 101.4 138 20 134/66 (88) 100 Intake and Output 04/26/20 04/27/20 19:00 07:00 Intake Total 800 ml 290 ml Output Total 1400 ml 1700 ml Balance -600 ml -1410 ml Intake Oral 800 ml 240 ml IV Total 50 ml Output Urine Total 1400 ml 1700 ml Laboratory Tests 04/27/20 04:00: White Blood Count 3.2L, Red Blood Count 3.35L, Hemoglobin 9.3#L, Hematocrit 30.1#L, Mean Corpuscular Volume 90, Mean Corpuscular Hemoglobin 27.6, Mean Corpuscular Hemoglobin Concent 30.8L, Red Cell Distribution Width 17.8H, Platelet Count 286, Mean Platelet Volume 5.2L, Neutrophils (%) (Auto) , Lymphocytes (%) (Auto) , Monocytes (%) (Auto) , Eosinophils (%) (Auto) , Basophils (%) (Auto) , Differential Total Cells Counted 100, Neutrophils % (Manual) 50, Lymphocytes % (Manual) 40, Monocytes % (Manual) 7, Eosinophils % (Manual) 3, Basophils % (Manual) 0, Band Neutrophils 0, Platelet Estimate Adequate, Platelet Morphology Normal, Hypochromasia 1+, Anisocytosis 1+, Sodium Level 140, Potassium Level 3.6, Chloride Level 108H, Carbon Dioxide Level 20L, Anion Gap 12, Blood Urea Nitrogen 19H, Creatinine 1.7H, Estimat Glomerular Filtration Rate 37.9, Glucose Level 63L, Calcium Level 7.8L Height (Feet): 5 Height (Inches): 7.00 Weight (Pounds): 150 Kallie Dykes M.D. Apr 27, 2020 16:56
--- NOTE | 2020-04-27 17:35 | NUR ---
NURSE NOTES: PATIENT REFUSES TO HAVE WOUND CARE TREATMENT TO [facility].N WILL NOT ALLOW OPTIFOAM TO BE APPLIED. STATE SHE LIKES IT FELA. PATIENT UNDERSTANDS THE RISK FACTORS OF WOUND BECOMING WORSE IF TREATMENT PLAN NOT FOLLOWED. ABLE TO SHIFT HIPS FROM SIDE TO SIDE ALLEVIATE PRESSURE PINTS BUT DOES NOT LIKE TO TURN FULLY.
--- NOTE | 2020-04-27 19:37 | NUR ---
NURSE HAND-OFF: Important Events on Shift: TEMP 100.4 ORALLY/ TYLENOL GIVEN;NOW 99.1 ORALLY Patient Status: STABLE Diet: REGULAR Pending Orders: N/A Pending Results/Labs:N/A Pending MD notification:N/A Latest Vital Signs: Temperature 99.1 , Pulse 100 , B/P 130 /88 , Respiratory Rate 18 , O2 SAT 97 RA. . Vital Sign Comment: STABLE Latest [place] Fall Score: 55 Fall Risk: High Risk Safety Measures: Call light Within Reach, Bed Alarm Zone 1, Side Rails Side Rails x3, Bed position Low and Locked. Fall Precautions: Door Sign Patient Fall Education Report given to OTIS SPENCER RN.
[2020-04-27 20:00] VITALS: BP 96/61
[2020-04-27] MEDS: Dyna-Hex 2% Top Sol 2oz TOPIC SCH (20:00)
--- NOTE | 2020-04-27 20:05 | NUR ---
NURSE NOTES: Pt is in bed, awake and verbal. No acute distress noted. Pt's is on room air now. Pain medication will be given as needed PRN. Pt will be repositioned. Fall precaution in place. Pt will be monitored.
--- NOTE | 2020-04-27 20:14 | Neurology Progress Note ---
Interim History Interim History ROS Limited/Unobtainable: No Interim History more alert, responding Objective Physical Exam Last Vital Signs Date Time Temp Pulse Resp B/P (MAP) Pulse Ox O2 Delivery O2 Flow Rate FiO2 04/27/20 16:53 99.1 04/27/20 16:00 100 18 130/88 (102) 97 04/27/20 09:00 Room Air 04/26/20 21:00 1.0 04/25/20 20:00 24 Laboratory Tests Test 04/27/20 04:00 White Blood Count 3.2 K/UL (4.8-10.8) L Red Blood Count 3.35 M/UL (4.20-5.40) L Hemoglobin 9.3 G/DL (12.0-16.0) #L Hematocrit 30.1 % (37.0-47.0) #L Mean Corpuscular Volume 90 FL (80-99) Mean Corpuscular Hemoglobin 27.6 PG (27.0-31.0) Mean Corpuscular Hemoglobin Concent 30.8 G/DL (32.0-36.0) L Red Cell Distribution Width 17.8 % (11.6-14.8) H Platelet Count 286 K/UL (150-450) Mean Platelet Volume 5.2 FL (6.5-10.1) L Neutrophils (%) (Auto) % (45.0-75.0) Lymphocytes (%) (Auto) % (20.0-45.0) Monocytes (%) (Auto) % (1.0-10.0) Eosinophils (%) (Auto) % (0.0-3.0) Basophils (%) (Auto) % (0.0-2.0) Differential Total Cells Counted 100 Neutrophils % (Manual) 50 % (45-75) Lymphocytes % (Manual) 40 % (20-45) Monocytes % (Manual) 7 % (1-10) Eosinophils % (Manual) 3 % (0-3) Basophils % (Manual) 0 % (0-2) Band Neutrophils 0 % (0-8) Platelet Estimate Adequate Platelet Morphology Normal Hypochromasia 1+ Anisocytosis 1+ Sodium Level 140 MMOL/L (136-145) Potassium Level 3.6 MMOL/L (3.5-5.1) Chloride Level 108 MMOL/L (98-107) H Carbon Dioxide Level 20 MMOL/L (21-32) L Anion Gap 12 mmol/L (5-15) Blood Urea Nitrogen 19 mg/dL (7-18) H Creatinine 1.7 MG/DL (0.55-1.30) H Estimat Glomerular Filtration Rate 37.9 mL/min (>60) Glucose Level 63 MG/DL (74-106) L Calcium Level 7.8 MG/DL (8.5-10.1) L Impression/Recommendations Problems: (1) Anemia Status: stable Diagnostic Impression Chronic weakness, LE worse than UEs MRI spine noted, osteoma wo spine compression slplaminectomy COVID 19 pneumonia (febrile, tachycardic) Hx of Lymphoma cont medical support pain control PT as able Renny Bajwa MD Apr 27, 2020 20:14
[2020-04-28] VITALS: BP 122/71
[2020-04-28] MEDS: Morphine Sulfate 4mg/ml Inj (IV USE ONLY) IVP PRN ×2 (00:18→06:54)
[2020-04-28] MEDS: Morphine Sulfate 2mg/ml Inj(IV/IM USE ONLY) IVP PRN ×2 (03:50→15:17)
[2020-04-28 04:00] VITALS: BP 116/72
[2020-04-28 05:56] LABS: BASOPHILS % (AUTO) 2.3 % (0.0-2.0); EOSINOPHILS % (AUTO) 5.7 % (0.0-3.0); HEMATOCRIT 29.9 % (37.0-47.0); HEMOGLOBIN 9.9 G/DL (12.0-16.0); LYMPHOCYTES % (AUTO) 18.5 % (20.0-45.0); MEAN CORPUSCULAR VOLUME 83 FL (80-99); MONOCYTES % (AUTO) 9.9 % (1.0-10.0); NEUTROPHILS % (AUTO) 63.6 % (45.0-75.0); PLATELET COUNT 283 K/UL (150-450); RED BLOOD COUNT 3.59 M/UL (4.20-5.40); RED CELL DISTRIBUTION WIDTH 17.9 % (11.6-14.8); WHITE BLOOD COUNT 3.9 K/UL (4.8-10.8)
[2020-04-28] MEDS: Heparin 5000 units/ml inj SUBQ SCH ×3 (06:00→20:50)
--- NOTE | 2020-04-28 06:00 | NUR ---
NURSE NOTES: Pt is in bed, awake and verbal. Room air, afebrile. No SOB. Pt requires pain medication around the clock.
--- NOTE | 2020-04-28 07:08 | Cardiac Electrophysiology PN ---
Assessment/Plan Assessment/Plan 1. Sinus tachycardia due to sepsis, anemia and COVID. Can not use beta-domenico as blood pressure is 100/70. 2. COVID pneumonia. 3. Hypokalemia. 4. Hypomagnesemia. 5. History of non-Hodgkin lymphoma. 6. Leukopenia and anemia. FU Dr. Valencia 7. Fever. Blood and urine Cx pending DW RN Subjective Subjective No events in Covid isolation. On Room Air. DC cancelled for fever. No fever overnight. Blood Cx and urine Cx pending S/P PRBC for 7.6 Objective Last 24 Hour Vital Signs Date Time Temp Pulse Resp B/P (MAP) Pulse Ox O2 Delivery O2 Flow Rate FiO2 04/28/20 04:00 98.8 102 18 116/72 (87) 95 04/28/20 00:00 98.4 102 18 122/71 (88) 94 04/27/20 21:00 Room Air 04/27/20 20:19 94 Nasal Cannula 1.0 24 04/27/20 20:00 98.8 101 18 96/61 (73) 95 04/27/20 16:53 99.1 04/27/20 16:12 100.4 04/27/20 16:00 100.4 100 18 130/88 (102) 97 04/27/20 12:00 99.0 109 19 121/77 (92) 100 04/27/20 09:53 97.2 04/27/20 09:00 Room Air 04/27/20 08:00 97.2 104 18 110/69 (83) 95 Intake and Output 04/27/20 04/28/20 19:00 07:00 Intake Total 960 ml 300 ml Output Total 500 ml 800 ml Balance 460 ml -500 ml Intake Oral 360 ml IV Total 600 ml 300 ml Output Urine Total 500 ml 800 ml # Voids 1 Laboratory Tests Test 04/28/20 04:45 White Blood Count 3.9 K/UL (4.8-10.8) L Red Blood Count 3.59 M/UL (4.20-5.40) L Hemoglobin 9.9 G/DL (12.0-16.0) L Hematocrit 29.9 % (37.0-47.0) L Mean Corpuscular Volume 83 FL (80-99) Mean Corpuscular Hemoglobin 27.5 PG (27.0-31.0) Mean Corpuscular Hemoglobin Concent 33.1 G/DL (32.0-36.0) Red Cell Distribution Width 17.9 % (11.6-14.8) H Platelet Count 283 K/UL (150-450) Mean Platelet Volume 5.4 FL (6.5-10.1) L Neutrophils (%) (Auto) 63.6 % (45.0-75.0) Lymphocytes (%) (Auto) 18.5 % (20.0-45.0) L Monocytes (%) (Auto) 9.9 % (1.0-10.0) Eosinophils (%) (Auto) 5.7 % (0.0-3.0) H Basophils (%) (Auto) 2.3 % (0.0-2.0) H Sodium Level Pending Potassium Level Pending Chloride Level Pending Carbon Dioxide Level Pending Blood Urea Nitrogen Pending Creatinine Pending Estimat Glomerular Filtration Rate Pending Glucose Level Pending Calcium Level Pending Phosphorus Level Pending Magnesium Level Pending Objective HEAD AND NECK: No JVD. LUNGS: Coarse rhonchi. CARDIOVASCULAR: Regular S1 and S2 with no gallop or murmur. ABDOMEN: Soft. EXTREMITIES: No pitting edema. Ehsan Wan MD Apr 28, 2020 07:08
--- NOTE | 2020-04-28 07:10 | NUR ---
NURSE HAND-OFF: Important Events on Shift:[] Patient Status: [Stable] Diet: [] Pending Orders: [] Pending Results/Labs:[] Pending MD notification:[] Latest Vital Signs: Temperature 98.8 , Pulse 102 , B/P 116 /72 , Respiratory Rate 18 , O2 SAT 95 , Nasal Cannula, O2 Flow Rate 1.0 . Vital Sign Comment: [] Latest [place] Fall Score: 55 Fall Risk: High Risk Safety Measures: Call light Within Reach, Bed Alarm Zone 1, Side Rails Side Rails x3, Bed position Low and Locked. Fall Precautions: Door Sign Patient Fall Education Report given to [Amy Neff RN].
--- NOTE | 2020-04-28 07:15 | NUR ---
NURSE NOTES: Report received from Heri RN, rounds made. Patient resting, AOx4 calm, semi fowlers position in bed. Respirations even/unlabored on RA, O2 2LNC at bedside, PRN. Pain to BLE 8/10, will medicate as ordered. Will assess skin and provide skin care, refused to be turned, instructed patient on skin breakdown prevention. Reviewed eMAR, refused Heparin, instructed patient to perform ankle rotation and calf pumping to promote circulation. IVF NS at 50 ml/hr to left hand, site asymptomatic. No BM yet. Abdomen soft, gas +, bowel sounds hypoactive, no NV, appetite fair. Call light in reach, bed in lowest position, will continue to monitor.
[2020-04-28 08:00] VITALS: BP 147/92
[2020-04-28 08:28] LABS: SODIUM 145 MMOL/L (136-145)
[2020-04-28 08:29] LABS: BLOOD UREA NITROGEN 11 mg/dL (7-18); CALCIUM 7.4 MG/DL (8.5-10.1); CARBON DIOXIDE 23 MMOL/L (21-32); CHLORIDE 109 MMOL/L (98-107); PHOSPHORUS 3.5 MG/DL (2.5-4.9)
--- NOTE | 2020-04-28 08:54 | Pulmonology Progress Note ---
Subjective ROS Limited/Unobtainable: No Interval Events: None new Constitutional: Reports: fever, fatigue HEENT: Repors: no symptoms Respiratory: Reports: no symptoms, dry cough Cardiovascular: Reports: no symptoms Gastrointestinal/Abdominal: Denies: nausea, vomiting, diarrhea Psychiatric: Denies: depression Skin: Denies: rash Musculoskeletal: Denies: pain Allergies: Coded Allergies: No Known Allergies (Unverified , 04/11/20) Objective Last 24 Hour Vital Signs Date Time Temp Pulse Resp B/P (MAP) Pulse Ox O2 Delivery O2 Flow Rate FiO2 04/28/20 04:00 98.8 102 18 116/72 (87) 95 04/28/20 00:00 98.4 102 18 122/71 (88) 94 04/27/20 21:00 Room Air 04/27/20 20:19 94 Nasal Cannula 1.0 24 04/27/20 20:00 98.8 101 18 96/61 (73) 95 04/27/20 16:53 99.1 04/27/20 16:12 100.4 04/27/20 16:00 100.4 100 18 130/88 (102) 97 04/27/20 12:00 99.0 109 19 121/77 (92) 100 04/27/20 09:53 97.2 04/27/20 09:00 Room Air Intake and Output 04/27/20 04/28/20 19:00 07:00 Intake Total 960 ml 600 ml Output Total 500 ml 800 ml Balance 460 ml -200 ml Intake Oral 360 ml IV Total 600 ml 600 ml Output Urine Total 500 ml 800 ml # Voids 1 Objective 04/28 on and off 1 L NC; NAD 04/27 on and off 1 L NC; NAD 04/26 still on 1 L NC; NAD 04/25 no change respiratory-salomon 04/24 no change 04/23 on and off 1 lpm NC 04/22 saturating well on and off 1 lpm NC 04/21 no change 04/20 pt saturating well on 2 lpm NC; NAD 04/19 pt saturating well on 2 lpm NC; NAD 04/18 pt saturating well on 2 lpm NC General Appearance: WD/WN, no acute distress HEENT: normocephalic, atraumatic Respiratory: lungs clear Cardiovascular: normal rate, regular rhythm Abdomen: soft, non tender Genitourinary: other - Morales Extremities: no edema Laboratory Tests 04/28/20 04:45: White Blood Count 3.9L, Red Blood Count 3.59L, Hemoglobin 9.9L, Hematocrit 29.9L , Mean Corpuscular Volume 83, Mean Corpuscular Hemoglobin 27.5, Mean Corpuscular Hemoglobin Concent 33.1, Red Cell Distribution Width 17.9H, Platelet Count 283, Mean Platelet Volume 5.4L, Neutrophils (%) (Auto) 63.6, Lymphocytes (%) (Auto) 18.5L, Monocytes (%) (Auto) 9.9, Eosinophils (%) (Auto) 5.7H, Basophils (%) (Auto) 2.3H, Sodium Level 145, Potassium Level 3.0L, Chloride Level 109H, Carbon Dioxide Level 23, Blood Urea Nitrogen 11, Creatinine 1.0, Estimat Glomerular Filtration Rate > 60, Glucose Level 68L, Calcium Level 7.4L, Phosphorus Level 3.5, Magnesium Level 1.0L Current Medications Medications (Trade) Dose Ordered Sig/Angelika Route PRN Reason Start Time Stop Time Status Last Admin Dose Admin Acetaminophen (Tylenol) 650 mg Q6H PRN ORAL Mild Pain (Pain Scale 1-3) 04/12/20 02:45 05/12/20 02:44 04/27/20 16:23 Acetaminophen (Tylenol) 650 mg Q6H PRN ORAL FEVER 04/12/20 16:30 05/12/20 16:29 04/27/20 00:38 Acetaminophen/ Hydrocodone Bitart ([place] 10/325) 1 tab Q6H PRN ORAL severe pain 04/22/20 11:00 04/29/20 10:59 04/26/20 21:57 Acetaminophen/ Hydrocodone Bitart ([place] 5/325) 1 tab Q6H PRN ORAL moderate pain 04/22/20 11:00 04/29/20 10:59 Allopurinol (allopurinoL) 300 mg DAILY ORAL 04/12/20 09:00 05/12/20 08:59 04/27/20 09:22 Ascorbic Acid (Vitamin C) 500 mg DAILY ORAL 04/26/20 09:00 05/26/20 08:59 04/27/20 09:22 Baclofen (Lioresal) 10 mg THREE TIMES A DAY ORAL 12/9/20 09:00 05/12/20 08:59 04/23/20 12:46 Chlorhexidine Gluconate (Christy-Hex 2%) 1 applic Q24H TOPIC 04/25/20 20:00 07/24/20 19:59 04/25/20 20:20 Docusate Sodium (Colace) 100 mg TWICE A DAY ORAL 04/27/20 09:00 05/20/20 08:59 04/27/20 18:00 Dronabinol (Marinol) 2.5 mg BID ORAL 04/27/20 09:00 07/24/20 17:59 04/27/20 18:00 Heparin Sodium (Porcine) (Heparin 5000 units/ml) 5,000 units EVERY 8 HOURS SUBQ 04/24/20 22:00 06/08/20 21:59 Lactulose (Cephulac) 20 gm THREE TIMES A DAY ORAL 04/21/20 13:00 05/21/20 12:59 04/27/20 18:00 Linaclotide (Linzess) 290 mcg BEFORE BREAKFAST ORAL 04/26/20 06:30 07/25/20 06:29 04/28/20 06:54 Morphine Sulfate (Morphine Sulfate) 2 mg Q3H PRN IVP Severe Pain (Pain Scale 7-10) 04/22/20 23:15 04/29/20 23:14 04/28/20 03:50 Morphine Sulfate (Morphine Sulfate) 4 mg EVERY 3 HOURS PRN IVP SEVERE BREAKTHRU PAIN 04/22/20 18:00 04/29/20 17:59 04/28/20 06:54 Multivitamins (Multivitamins) 1 tab DAILY ORAL 04/26/20 09:00 05/26/20 08:59 04/27/20 09:22 Ondansetron HCl (Zofran) 4 mg Q6H PRN IVP Nausea & Vomiting 04/19/20 13:30 05/19/20 13:29 Polyethylene Glycol (Miralax) 17 gm DAILY ORAL 04/20/20 09:00 05/20/20 08:59 04/27/20 09:22 Sodium Chloride 1,000 ml @ 50 mls/hr Q20H IV 04/26/20 20:15 05/26/20 20:14 04/27/20 15:42 Assessment/Plan Assessment/Plan 1. COVID-19 positivity. - COVID-19 PCR 04/21 positive: cont isolation - no indication for any steroid or remdesivir given her normoxemia at this time - s/p cefepime - CXR with diffuse non-specific inflammatory/infectious process - cont supplemental oxygen as needed - CT A/P/C - no obvious pna or abscess, cultures negative 2. Immunocompromised state with history of non-Hodgkin lymphoma. - on chemo - h/o port line infection; s/p Vanco - to return to onco for further Tx per heme 3. Fever - urine culture, blood culture pending per nephro 4. Hx of Hypertension. 5. Gout. 6. Anemia - s/p pRBC DVT ppx - on SCD - pt refusing heparin Low TSH; improving - Dr. Fermin following - no need for levothyroxine per Dr. 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
[2020-04-28] MEDS: Lactulose 20gm/30ml UDC ORAL SCH ×3 (09:00→17:14)
--- NOTE | 2020-04-28 09:03 | Hematology/Onc Progress Note ---
Assessment/Plan Assessment/Plan # Leukopenia COVID19++++++++++ --> hep and hiv order as needed --> wbc 4-->3-->2.9->2->4.6--4.1-->3.6 --> Neupogen 300 x1 04/21 --> isolation if anc<500 # Non-Hodgkins Lymphoma is s/p chemotherapy in the past --> to return to onco for further treatment --> likely for ct/pet as outpatient --> CT Here shows no e/o disease --> imaging has been reviewed thus far --> end date of 04/2020 # Anemia likely of chronic disease -- does not appear to have iron deficiency --> transfuse as needed, tibc and ferritin are cw acd --> hgb 7.8-->8.6-->8.5-->8.4->7.6 --> no hemolysis is noted --> s/p transfusion on admission # Covid 19++ with SIRS (febrile, tachycardic) --> per pulm and id --> CXR with diffuse non-specific inflammatory/infectious process --> s/p Cefepime (04/14 - 04/15) # Hypokalemia # Hypomagnesia # Chronic Back pain # Full Code Appreciate consultation and dw Rn Subjective HEENT: Denies: no symptoms, eye pain, blurred vision, tearing, double vision, ear pain, ear discharge, nose pain, nose congestion, throat pain, throat swelling, mouth pain, mouth swelling, other Respiratory: Denies: no symptoms, cough, shortness of breath, SOB with excertion, SOB at rest, sputum, wheezing, other Gastrointestinal/Abdominal: Denies: no symptoms, abdomen distended, abdominal pain, black stools, tarry stools, blood in stool, constipated, diarrhea, difficulty swallowing, nausea, poor appetite, poor fluid intake, rectal bleeding, vomiting, other Genitourinary: Denies: no symptoms, burning, discharge, frequency, flank pain, hematuria, incontinence, pain, urgency, other Neurologic/Psychiatric: Denies: no symptoms, anxiety, depressed, emotional problems, headache, numbness, paresthesia, pre-existing deficit, seizure, tingling, tremors, weakness, other Endocrine: Denies: no symptoms, excessive sweating, flushing, intolerance to cold, intolerance to heat, increased hunger, increased thirst, increased urine, unexplained weight gain, unexplained weight loss, other Hematologic/Lymphatic: Denies: no symptoms, anemia, easy bleeding, easy bruisi ng, adenopathy, other Allergies: Coded Allergies: No Known Allergies (Unverified , 04/11/20) Subjective 04/17 is on room air, more comfortable, potential dc to snf 04/18 labs reviewed, no bleeding, meds noted, no night sweats 04/19 sleeping comfortably, no major events, no night sweats 04/20 meds noted, labs reviewed, wbc 2.9, hep and hiv is neg 04/21 labs reviewed, in am, the wbc was 2, to get neupogen x 1 dose now 04/23 labs noted, no bleeding, wbc 4, hgb remains low, but holding off trans 04/24 labs are pending for am, meds reviewed, no bleeding 04/25 meds reviewed, labs noted, no night sweats, dw rn at bedside, no new events 04/26 labs reviewed, meds noted, no bleeding, wbc 3, hgb 7.6 04/27 dw rn at bedside, labs are noted, no bleeding, refusing heparin now sq 04/28 labs have been reviewed, is on room air, no bleeding, tachy Objective Objective Current Medications Medications (Trade) Dose Ordered Sig/Angelika Route PRN Reason Start Time Stop Time Status Last Admin Dose Admin Acetaminophen (Tylenol) 650 mg Q6H PRN ORAL Mild Pain (Pain Scale 1-3) 04/12/20 02:45 05/12/20 02:44 04/27/20 16:23 Acetaminophen (Tylenol) 650 mg Q6H PRN ORAL FEVER 04/12/20 16:30 05/12/20 16:29 04/27/20 00:38 Acetaminophen/ Hydrocodone Bitart ([place] 10/325) 1 tab Q6H PRN ORAL severe pain 04/22/20 11:00 04/29/20 10:59 04/26/20 21:57 Acetaminophen/ Hydrocodone Bitart ([place] 5/325) 1 tab Q6H PRN ORAL moderate pain 04/22/20 11:00 04/29/20 10:59 Allopurinol (allopurinoL) 300 mg DAILY ORAL 04/12/20 09:00 05/12/20 08:59 04/27/20 09:22 Ascorbic Acid (Vitamin C) 500 mg DAILY ORAL 04/26/20 09:00 05/26/20 08:59 04/27/20 09:22 Baclofen (Lioresal) 10 mg THREE TIMES A DAY ORAL 04/12/20 09:00 05/12/20 08:59 04/23/20 12:46 Chlorhexidine Gluconate (Christy-Hex 2%) 1 applic Q24H TOPIC 04/25/20 20:00 07/24/20 19:59 04/25/20 20:20 Docusate Sodium (Colace) 100 mg TWICE A DAY ORAL 04/27/20 09:00 05/20/20 08:59 04/27/20 18:00 Dronabinol (Marinol) 2.5 mg BID ORAL 04/27/20 09:00 07/24/20 17:59 04/27/20 18:00 Heparin Sodium (Porcine) (Heparin 5000 units/ml) 5,000 units EVERY 8 HOURS SUBQ 04/24/20 22:00 06/08/20 21:59 Lactulose (Cephulac) 20 gm THREE TIMES A DAY ORAL 04/21/20 13:00 05/21/20 12:59 04/27/20 18:00 Linaclotide (Linzess) 290 mcg BEFORE BREAKFAST ORAL 04/26/20 06:30 07/25/20 06:29 04/28/20 06:54 Morphine Sulfate (Morphine Sulfate) 2 mg Q3H PRN IVP Severe Pain (Pain Scale 7-10) 04/22/20 23:15 04/29/20 23:14 04/28/20 03:50 Morphine Sulfate (Morphine Sulfate) 4 mg EVERY 3 HOURS PRN IVP SEVERE BREAKTHRU PAIN 04/22/20 18:00 04/29/20 17:59 04/28/20 06:54 Multivitamins (Multivitamins) 1 tab DAILY ORAL 04/26/20 09:00 05/26/20 08:59 04/27/20 09:22 Ondansetron HCl (Zofran) 4 mg Q6H PRN IVP Nausea & Vomiting 04/19/20 13:30 1/15/21 13:29 Polyethylene Glycol (Miralax) 17 gm DAILY ORAL 04/20/20 09:00 05/20/20 08:59 04/27/20 09:22 Sodium Chloride 1,000 ml @ 50 mls/hr Q20H IV 04/26/20 20:15 05/26/20 20:14 04/27/20 15:42 Last 24 Hour Vital Signs Date Time Temp Pulse Resp B/P (MAP) Pulse Ox O2 Delivery O2 Flow Rate FiO2 04/28/20 04:00 98.8 102 18 116/72 (87) 95 04/28/20 00:00 98.4 102 18 122/71 (88) 94 04/27/20 21:00 Room Air 04/27/20 20:19 94 Nasal Cannula 1.0 24 04/27/20 20:00 98.8 101 18 96/61 (73) 95 04/27/20 16:53 99.1 04/27/20 16:12 100.4 04/27/20 16:00 100.4 100 18 130/88 (102) 97 04/27/20 12:00 99.0 109 19 121/77 (92) 100 04/27/20 09:53 97.2 04/27/20 09:00 Room Air 04/27/20 08:00 97.2 104 18 110/69 (83) 95 04/27/20 04:00 98.1 100 20 101/60 (74) 100 04/27/20 02:00 98.6 111 20 98 04/27/20 02:00 98.6 04/27/20 00:00 101.2 120 20 95/47 (63) 95 04/26/20 21:00 Nasal Cannula 1.0 04/26/20 20:00 101.4 138 20 134/66 (88) 100 04/26/20 16:35 97.7 04/26/20 16:00 97.7 118 20 122/83 (96) 100 04/26/20 12:00 98.1 91 20 130/76 (94) 96 04/26/20 10:18 98.1 Intake and Output 04/27/20 04/28/20 19:00 07:00 Intake Total 960 ml 600 ml Output Total 500 ml 800 ml Balance 460 ml -200 ml Intake Oral 360 ml IV Total 600 ml 600 ml Output Urine Total 500 ml 800 ml # Voids 1 Labs Test 04/25/20 17:20 04/26/20 04:30 04/27/20 04:00 04/28/20 04:45 Urine Color Gloria Urine Appearance Cloudy Urine pH 6.5 (4.5-8.0) Urine Specific [place] 1.005 (1.005-1.035) Urine Protein 1+ (NEGATIVE) Urine Glucose (UA) Negative (NEGATIVE) Urine Ketones Negative (NEGATIVE) Urine Blood 1+ (NEGATIVE) Urine Nitrite Negative (NEGATIVE) Urine Bilirubin Negative (NEGATIVE) Urine Ictotest Negative (NEGATIVE) Urine Urobilinogen Normal MG/DL (0.0-1.0) Urine Leukocyte Esterase 2+ (NEGATIVE) Urine RBC 5-10 /HPF (0 - 2) Urine WBC Tntc /HPF (0 - 2) Urine Squamous Epithelial Cells Many /LPF (NONE/OCC) Urine Bacteria Many /HPF (NONE) Urine Yeast Many /HPF (NONE) Urine Random Sodium 69 mmol/L (20-110) Urine Creatinine 50.4 MG/DL (30.0-125.0) White Blood Count 3.2 K/UL (4.8-10.8) 3.2 K/UL (4.8-10.8) 3.9 K/UL (4.8-10.8) Red Blood Count 2.63 M/UL (4.20-5.40) 3.35 M/UL (4.20-5.40) 3.59 M/UL (4.20-5.40) Hemoglobin 7.1 G/DL (12.0-16.0) 9.3 G/DL (12.0-16.0) 9.9 G/DL (12.0-16.0) Hematocrit 22.2 % (37.0-47.0) 30.1 % (37.0-47.0) 29.9 % (37.0-47.0) Mean Corpuscular Volume 84 FL (80-99) 90 FL (80-99) 83 FL (80-99) Mean Corpuscular Hemoglobin 27.0 PG (27.0-31.0) 27.6 PG (27.0-31.0) 27.5 PG (27.0-31.0) Mean Corpuscular Hemoglobin Concent 32.1 G/DL (32.0-36.0) 30.8 G/DL (32.0-36.0) 33.1 G/DL (32.0-36.0) Red Cell Distribution Width 19.1 % (11.6-14.8) 17.8 % (11.6-14.8) 17.9 % (11.6-14.8) Platelet Count 231 K/UL (150-450) 286 K/UL (150-450) 283 K/UL (150-450) Mean Platelet Volume 5.8 FL (6.5-10.1) 5.2 FL (6.5-10.1) 5.4 FL (6.5-10.1) Neutrophils (%) (Auto) % (45.0-75.0) % (45.0-75.0) 63.6 % (45.0-75.0) Lymphocytes (%) (Auto) % (20.0-45.0) % (20.0-45.0) 18.5 % (20.0-45.0) Monocytes (%) (Auto) % (1.0-10.0) % (1.0-10.0) 9.9 % (1.0-10.0) Eosinophils (%) (Auto) % (0.0-3.0) % (0.0-3.0) 5.7 % (0.0-3.0) Basophils (%) (Auto) % (0.0-2.0) % (0.0-2.0) 2.3 % (0.0-2.0) Differential Total Cells Counted 100 100 Neutrophils % (Manual) 63 % (45-75) 50 % (45-75) Lymphocytes % (Manual) 19 % (20-45) 40 % (20-45) Monocytes % (Manual) 9 % (1-10) 7 % (1-10) Eosinophils % (Manual) 7 % (0-3) 3 % (0-3) Basophils % (Manual) 0 % (0-2) 0 % (0-2) Band Neutrophils 2 % (0-8) 0 % (0-8) Platelet Estimate Adequate Adequate Platelet Morphology Normal Normal Hypochromasia 2+ 1+ Anisocytosis 1+ 1+ Sodium Level 138 MMOL/L (136-145) 140 MMOL/L (136-145) 145 MMOL/L (136-145) Potassium Level 4.3 MMOL/L (3.5-5.1) 3.6 MMOL/L (3.5-5.1) 3.0 MMOL/L (3.5-5.1) Chloride Level 109 MMOL/L (98-107) 108 MMOL/L (98-107) 109 MMOL/L (98-107) Carbon Dioxide Level 19 MMOL/L (21-32) 20 MMOL/L (21-32) 23 MMOL/L (21-32) Anion Gap 10 mmol/L (5-15) 12 mmol/L (5-15) Blood Urea Nitrogen 20 mg/dL (7-18) 19 mg/dL (7-18) 11 mg/dL (7-18) Creatinine 3.0 MG/DL (0.55-1.30) 1.7 MG/DL (0.55-1.30) 1.0 MG/DL (0.55-1.30) Estimat Glomerular Filtration Rate 19.6 mL/min (>60) 37.9 mL/min (>60) > 60 mL/min (>60) Glucose Level 67 MG/DL (74-106) 63 MG/DL (74-106) 68 MG/DL (74-106) Calcium Level 8.0 MG/DL (8.5-10.1) 7.8 MG/DL (8.5-10.1) 7.4 MG/DL (8.5-10.1) Phosphorus Level 4.9 MG/DL (2.5-4.9) 3.5 MG/DL (2.5-4.9) Magnesium Level 1.4 MG/DL (1.8-2.4) 1.0 MG/DL (1.8-2.4) Height (Feet): 5 Height (Inches): 7.00 Weight (Pounds): 150 Objective Gen: nad Pulm: ctab, no cwr CV: rrr Abd: soft, nt Ext: no cce Martinez Hill MD Apr 28, 2020 09:03
[2020-04-28] MEDS: Docusate 100mg cap ORAL SCH ×2 (09:14→17:14)
[2020-04-28] MEDS: Miralax 17gm pkt ORAL SCH (09:14)
[2020-04-28] MEDS: Ascorbic Acid 500mg tab ORAL SCH (09:14)
[2020-04-28] MEDS: Dronabinol 2.5mg Cap ORAL SCH ×2 (09:14→17:13)
[2020-04-28] MEDS: HYDROcodone/Acetamin 10/325 tab ORAL PRN ×2 (09:17→20:50)
--- NOTE | 2020-04-28 10:00 | NUR ---
NURSE NOTES: Discussed with Dr. Carter patient current status, no BM since last week per patient, reviewed eMAR, abdomen soft, non-tender, bowel sounds present/hypoactive, flatulence present, no c/o abdominal pain. No further orders. Encouraged patient to take her laxatives and stool softener, increase PO fluid intake. Patient made aware that constipation is a side effect of narcotic medication.
--- NOTE | 2020-04-28 10:01 | General Progress Note ---
Subjective ROS Limited/Unobtainable: No Allergies: Coded Allergies: No Known Allergies (Unverified , 04/11/20) Objective Last 24 Hour Vital Signs Date Time Temp Pulse Resp B/P (MAP) Pulse Ox O2 Delivery O2 Flow Rate FiO2 04/28/20 08:00 98.6 101 20 147/92 (110) 93 04/28/20 04:00 98.8 102 18 116/72 (87) 95 04/28/20 00:00 98.4 102 18 122/71 (88) 94 04/27/20 21:00 Room Air 04/27/20 20:19 94 Nasal Cannula 1.0 24 04/27/20 20:00 98.8 101 18 96/61 (73) 95 04/27/20 16:53 99.1 04/27/20 16:12 100.4 04/27/20 16:00 100.4 100 18 130/88 (102) 97 04/27/20 12:00 99.0 109 19 121/77 (92) 100 Intake and Output 04/27/20 04/28/20 19:00 07:00 Intake Total 960 ml 600 ml Output Total 500 ml 800 ml Balance 460 ml -200 ml Intake Oral 360 ml IV Total 600 ml 600 ml Output Urine Total 500 ml 800 ml # Voids 1 Laboratory Tests 04/28/20 04:45: White Blood Count 3.9L, Red Blood Count 3.59L, Hemoglobin 9.9L, Hematocrit 29.9L , Mean Corpuscular Volume 83, Mean Corpuscular Hemoglobin 27.5, Mean Corpuscular Hemoglobin Concent 33.1, Red Cell Distribution Width 17.9H, Platelet Count 283, Mean Platelet Volume 5.4L, Neutrophils (%) (Auto) 63.6, Lymphocytes (%) (Auto) 18.5L, Monocytes (%) (Auto) 9.9, Eosinophils (%) (Auto) 5.7H, Basophils (%) (Auto) 2.3H, Sodium Level 145, Potassium Level 3.0L, Chloride Level 109H, Carbon Dioxide Level 23, Blood Urea Nitrogen 11, Creatinine 1.0, Estimat Glomerular Filtration Rate > 60, Glucose Level 68L, Calcium Level 7.4L, Phosphorus Level 3.5, Magnesium Level 1.0L Height (Feet): 5 Height (Inches): 7.00 Weight (Pounds): 150 General Appearance: no apparent distress EENT: PERRL/EOMI Neck: supple Cardiovascular: normal rate Respiratory/Chest: decreased breath sounds Abdomen: normal bowel sounds, non tender, soft Extremities: non-tender Assessment/Plan Status: stable Assessment/Plan: iron def anemia mild elevated CEA lymphoma on chemo covid positive neg stool ob iv iron fu H&H needs out patient fu for colonoscopy fu oncology CT reviewed colace miralax lactulose tammy KAMINSKII vit c s/p blood transfusion Patrick Carter MD Apr 28, 2020 10:01
[2020-04-28 12:00] VITALS: BP 131/86
[2020-04-28] MEDS: Potassium Phosphate 15mm/250ml 250 ML IVPB SCH ×2 (12:21→17:12)
--- NOTE | 2020-04-28 13:43 | General Progress Note ---
Subjective Date patient seen: Apr 28, 2020 ROS Limited/Unobtainable: No Allergies: Coded Allergies: No Known Allergies (Unverified , 04/11/20) Subjective Patient febrile and tachycardic yesterday evening. Renal function continues to improve. Denies cough, SOB. No other complaints. Review of systems: Constitutional: Denies: chills, diaphoresis, malaise, weakness, fever HEENT: Denies: eye pain, blurred vision, double vision, ear pain, nose pain, throat pain, Cardiovascular: Denies: chest pain, edema, lightheadedness, palpitations Respiratory: SEe HPI Gastrointestinal/Abdominal: Denies: abdominal pain, black stools, blood in stool, constipation, diarrhea, nausea, poor fluid intake vomiting, other Genitourinary: Denies: burning, discharge, frequency, Neurologic/Psychiatric: Denies: headache, numbness, paresthesia, new weakness, other Endocrine: Denies: excessive sweating, flushing, intolerance to cold, MSK: denies joint pains, swelling, stiffness +back pain Hematologic/Lymphatic: Denies: anemia, easy bleeding, easy bruising, Objective Last 24 Hour Vital Signs Date Time Temp Pulse Resp B/P (MAP) Pulse Ox O2 Delivery O2 Flow Rate FiO2 04/28/20 12:00 98.4 114 20 131/86 (101) 94 04/28/20 09:00 Room Air 04/28/20 08:00 98.6 101 20 147/92 (110) 93 04/28/20 04:00 98.8 102 18 116/72 (87) 95 04/28/20 00:00 98.4 102 18 122/71 (88) 94 04/27/20 21:00 Room Air 04/27/20 20:19 94 Nasal Cannula 1.0 24 04/27/20 20:00 98.8 101 18 96/61 (73) 95 04/27/20 16:53 99.1 04/27/20 16:12 100.4 04/27/20 16:00 100.4 100 18 130/88 (102) 97 Intake and Output 04/27/20 04/28/20 19:00 07:00 Intake Total 960 ml 600 ml Output Total 500 ml 800 ml Balance 460 ml -200 ml Intake Oral 360 ml IV Total 600 ml 600 ml Output Urine Total 500 ml 800 ml # Voids 1 Laboratory Tests 04/28/20 04:45: White Blood Count 3.9L, Red Blood Count 3.59L, Hemoglobin 9.9L, Hematocrit 29.9L , Mean Corpuscular Volume 83, Mean Corpuscular Hemoglobin 27.5, Mean Corpuscular Hemoglobin Concent 33.1, Red Cell Distribution Width 17.9H, Platelet Count 283, Mean Platelet Volume 5.4L, Neutrophils (%) (Auto) 63.6, Lymphocytes (%) (Auto) 18.5L, Monocytes (%) (Auto) 9.9, Eosinophils (%) (Auto) 5.7H, Basophils (%) (Auto) 2.3H, Sodium Level 145, Potassium Level 3.0L, Chloride Level 109H, Carbon Dioxide Level 23, Blood Urea Nitrogen 11, Creatinine 1.0, Estimat Glomerular Filtration Rate > 60, Glucose Level 68L, Calcium Level 7.4L, Phosphorus Level 3.5, Magnesium Level 1.0L Height (Feet): 5 Height (Inches): 7.00 Weight (Pounds): 150 Objective General: WDWN female in NAD, A&O x 4, pleasant, conversant HEENT: Normocephalic cephalic atraumatic, pupils equal round reactive to light and accommodation, nares patent and no symmetrical, no tonsillar exudates, mucous membranes slighly dry CV: Regular rate regular rhythm, no murmurs, rubs, or gallops Pulm: Lungs clear to auscultation bilaterally. No wheezes, rhonchi, or rales GI: Soft, nontender, nondistended, bowel sounds present + eaton in place, no suprapubic TTP Neuro: CN 2-12 intact bilaterally, no focal signs. Moving all extremities Ext: No lower extremity edema bilaterally Skin: no rashes lesions or ulcers Msk: Joints symmetrical in upper extremity and lower extremity bilaterally, no joint swelling. + left hip pain (slightly) + mid thoracic spinal back pain Lymph: No lymphadenopathy in upper extremity and lower extremity Assessment/Plan Status: stable Assessment/Plan: #Hx of Sepsis 2' port infection #Sepsis due to COVID 19 pneumonia (febrile, tachycardic) #COVID 19+ #Continued fever of unknown origin. COVID vs. cancer related? - Febrile to 101 overnight - CTM Fever curve. Could be due to underlying malignancy - f/u Blood/Urine cultures 04/26 for new FFWU - Prior Blood cultures NGTD - Repeat UA: negative - Repeat CXR: Bronchial thickening - CT C/A/P including CT angio to eval for PE. : reviewed. No PE. No obvious infection. Incidental left hip fracture - IV fluids as needed - D/W ID. - Port has been removed at OSH - , - ngtd - Cefepime (04/14 - 04/15) - Per patient she is to continue on Vancomycin till 04/25 - D/c vanc - ID Consult, appreciate recs - MRI C/T/L spine w/wo contrast to eval for abscess: No sign of infection, abscess or osteo #L3 lesion on MRI: bone infarct vs. osteoid osteoma vs. less likely infection #Chronic LE weakness #s/p Laminectomy earlier in the year #Chronic Back pain > d/w radiology Dr. Hedrick - d/w ID, Neuro - outpatient f/u with spine surgeon: [facility]. Nino in [facility] - appreciate neurology consult: Dr. Bajwa - PT when able - [place] 5/10 Q6hr PRN moderate to severe and IV Morphine for BTP #JIM, pre-renal vs. due to vanc toxicity - Improving, Cr downtrending > Vanc level 35 - urine lytes - Nephrology on board: D/w Dr. hatch - Fluids per nephro #Hypothyroidism, suspect central given TSH and T4 both low - endocrinology consulted: Dr. Fermin to see - FSHpending. #left hip fracture, suspect chronic > Patient states she fell 5 months ago but no recent falls. Also had hard fall on coccyx in 2018. Minimal pain in left hip > Patient states she has not walked for months but is not paraplegic. Severe debilitation. - appreciate ortho eval: Dr. Payan. Given patient bed bound risks > benefits. Outpatient consideration - [facility] LLE - pain management #Hx of Lymphoma #leukopenia improving > S/p mets to spine s/p surgery earlier this year and XRT/Chemo > Last chemo in February 2020 - All information per patient - Oncology following, appreciate recs - Can continue current therapy with outpatient onc - No acute interventions needed inpatient - Neupogen x 1 12/18 #Acute blood loss anemia - resolving #anemia of chronic disease #Normocytic anemia Patient presented with Hb 6.7 with normal MCV. History of lymphoma per patient and is receiving chemo tx, last known to be February 2020. - 2U PRBCs ordered and transfused on admission - 1 u PRBC given 04/26 - Hb Stable - Rectic count wnl, Iron and Iron sat low, Ferritin wnl - No active signs of bleeding - Hematology consulted, appreciate recs - CTM for signs of bleeding - Patient will need colonoscopy as outpatient in the future : Gi Consulted; Dr. Carter #sinus tachycardia, due to COVID pna - monitor EKG - Cardiology consulted: Dr. Wan #proctitis #Constipation- > improving - Aggressive bowel regimen - GI aware: Appreciate recommendations - Colace, miralax, - s/p enema and ducolax with improvement #chronic urinary retention - since patient had spine surgery earlier in the year - unsure if has true urinary retention - d/w nephrology -> voiding trial, however patient refused. #Hypokalemia #hypomagnesia - Lytes replaced - appreciate nephro management FENPPX DVTPPX: per primary. Consider changing to HSQ if Cr does not imrp Fluids: per nephro Diet: regular Lines: PIV PT/OT: pending Code status:Full Dispo: back to SNF Reason for Continued Hospitalization: fever, tachycardia Dispo - Discharge back to SNF once fever and tachycardia improve. MIPS ([employer]-based Incentive Payment System) Applicable CPT: 04959, 49208 CHECK ALL THAT ARE MET: [] Measure #5 (CHF): All ages. Prescribe LINDSAY/ARB upon discharge for patients with left ventricular systolic dysfunction. If not, the reason is clearly documented in the medical chart [] Measure #8 (CHF): All ages. Prescribe a beta domenico upon discharge for patients with left ventricular systolic dysfunction. If not, the reason is clearly documented in the medical chart. [x] Measure #47: Advance care plan or surrogate decision maker documented in the medical record. [x] Measure #130 The provider has documented, updated, or reviewed the patients current medication list and has documented it in the patients note. [] Measure #374 (All): Send report to referring provider. [] Measure #407(Sepsis due to MSSA bacteremia): Age 18+ Patient treated with a beta-lactam antibiotic (Nafcillin, Oxacillin or Cefazolin) as definitive therapy. MEDICAL COMPLEXITYHigh complexity medical decision making (need 2/3 categories)Problem - need 4 points [x]Acute/new problem with new plan for workup (4 points, 1 max) [] Acute/new problem without additional workup (3 points, 1 max) [] Unstable chronic problem actively being managed (2 point each, 2 max) [x] Stable chronic problem actively being managed (1 point each, 2 max) [x] Self-limited/transient process (constipation, muscle ache, etc) (1 point each, 2 max) Data - need 4 points [x] Reviewed labs/imaging studies (1 points, 2 max) [x] Independent review of imaging (EKG, xrays, etc) (2 points, 2 max) [x] Discussed case with consult/other MD/RN (2 points, 2 max) High Risk - qualify if have one of the following: [x] Severe exacerbation of acute problem, acute mental status change, IV narcotics, monitoring drug levels (vancomycin, INR, tacrolimus etc) I spent 36 minutes on this patient's case, and 22 mins was dedicated to counseling and/or care coordination. Discussed with nephrology, ID, RN at bedside. Time of note may not reflect time of encounter Albin Barker M.D. Apr 28, 2020 13:43
--- NOTE | 2020-04-28 14:46 | General Progress Note ---
Subjective Date patient seen: Apr 28, 2020 ROS Limited/Unobtainable: No Allergies: Coded Allergies: No Known Allergies (Unverified , 04/11/20) Subjective Patient febrile yesterday afternoon at 4 PM. Renal function improved back to baseline. Reports feeling well today. Denies cough, SOB. No other complaints. Review of systems: Constitutional: Denies: chills, diaphoresis, malaise, weakness, fever HEENT: Denies: eye pain, blurred vision, double vision, ear pain, nose pain, throat pain, Cardiovascular: Denies: chest pain, edema, lightheadedness, palpitations Respiratory: SEe HPI Gastrointestinal/Abdominal: Denies: abdominal pain, black stools, blood in stool, constipation, diarrhea, nausea, poor fluid intake vomiting, other Genitourinary: Denies: burning, discharge, frequency, Neurologic/Psychiatric: Denies: headache, numbness, paresthesia, new weakness, other Endocrine: Denies: excessive sweating, flushing, intolerance to cold, MSK: denies joint pains, swelling, stiffness, back pain Hematologic/Lymphatic: Denies: anemia, easy bleeding, easy bruising, Objective Last 24 Hour Vital Signs Date Time Temp Pulse Resp B/P (MAP) Pulse Ox O2 Delivery O2 Flow Rate FiO2 04/28/20 12:00 98.4 114 20 131/86 (101) 94 04/28/20 09:00 Room Air 04/28/20 08:00 98.6 101 20 147/92 (110) 93 04/28/20 04:00 98.8 102 18 116/72 (87) 95 04/28/20 00:00 98.4 102 18 122/71 (88) 94 04/27/20 21:00 Room Air 04/27/20 20:19 94 Nasal Cannula 1.0 24 04/27/20 20:00 98.8 101 18 96/61 (73) 95 04/27/20 16:53 99.1 04/27/20 16:12 100.4 04/27/20 16:00 100.4 100 18 130/88 (102) 97 Intake and Output 04/27/20 04/28/20 19:00 07:00 Intake Total 960 ml 600 ml Output Total 500 ml 800 ml Balance 460 ml -200 ml Intake Oral 360 ml IV Total 600 ml 600 ml Output Urine Total 500 ml 800 ml # Voids 1 Laboratory Tests 04/28/20 04:45: White Blood Count 3.9L, Red Blood Count 3.59L, Hemoglobin 9.9L, Hematocrit 29.9L , Mean Corpuscular Volume 83, Mean Corpuscular Hemoglobin 27.5, Mean Corpuscular Hemoglobin Concent 33.1, Red Cell Distribution Width 17.9H, Platelet Count 283, Mean Platelet Volume 5.4L, Neutrophils (%) (Auto) 63.6, Lymphocytes (%) (Auto) 18.5L, Monocytes (%) (Auto) 9.9, Eosinophils (%) (Auto) 5.7H, Basophils (%) (Aut o) 2.3H, Sodium Level 145, Potassium Level 3.0L, Chloride Level 109H, Carbon Dioxide Level 23, Blood Urea Nitrogen 11, Creatinine 1.0, Estimat Glomerular Filtration Rate > 60, Glucose Level 68L, Calcium Level 7.4L, Phosphorus Level 3.5, Magnesium Level 1.0L Height (Feet): 5 Height (Inches): 7.00 Weight (Pounds): 150 Objective General: WDWN female in NAD, A&O x 4, pleasant, conversant HEENT: Normocephalic cephalic atraumatic, pupils equal round reactive to light and accommodation, nares patent and no symmetrical, no tonsillar exudates, mucous membranes slighly dry CV: Regular rate regular rhythm, no murmurs, rubs, or gallops Pulm: Lungs clear to auscultation bilaterally. No wheezes, rhonchi, or rales GI: Soft, nontender, nondistended, bowel sounds present + eaton in place, no suprapubic TTP Neuro: CN 2-12 intact bilaterally, no focal signs. Moving all extremities Ext: No lower extremity edema bilaterally Skin: no rashes lesions or ulcers Msk: Joints symmetrical in upper extremity and lower extremity bilaterally, no joint swelling. + left hip pain (slightly TTP) Lymph: No lymphadenopathy in upper extremity and lower extremity Assessment/Plan Status: stable Assessment/Plan: #Hx of Sepsis 2' port infection #Sepsis due to COVID 19 pneumonia (febrile, tachycardic) #COVID 19+ #Continued fever of unknown origin. COVID vs. cancer related? - Febrile to 100.4 yesterday at 4 PM - CTM Fever curve. Could be due to underlying malignancy - f/u Blood/Urine cultures 04/26 for new FFWU - Prior Blood cultures NGTD - Repeat UA: negative - Repeat CXR: Bronchial thickening - CT C/A/P including CT angio to eval for PE. : reviewed. No PE. No obvious infection. Incidental left hip fracture - IV fluids as needed - D/W ID. - Port has been removed at OSH - , - ngtd - Cefepime (04/14 - 04/15) - Per patient she is to continue on Vancomycin till 04/25 - D/c vanc - ID Consult, appreciate recs - MRI C/T/L spine w/wo contrast to eval for abscess: No sign of infection, abscess or osteo #L3 lesion on MRI: bone infarct vs. osteoid osteoma vs. less likely infection #Chronic LE weakness #s/p Laminectomy earlier in the year #Chronic Back pain > d/w radiology Dr. Hedrick - d/w ID, Neuro - outpatient f/u with spine surgeon: Dr. Nino in [facility] - appreciate neurology consult: Dr. Bajwa - PT when able - [place] 5/10 Q6hr PRN moderate to severe and IV Morphine for BTP #JIM, pre-renal vs. due to vanc toxicity - Resolved > Vanc level 35 - urine lytes - Nephrology on board: D/w Dr. hatch - Fluids per nephro #Hypothyroidism, suspect central given TSH and T4 both low - endocrinology consulted: Dr. Fermin to see - FSHpending. #left hip fracture, suspect chronic > Patient states she fell 5 months ago but no recent falls. Also had hard fall on coccyx in 2018. Minimal pain in left hip > Patient states she has not walked for months but is not paraplegic. Severe debilitation. - appreciate ortho eval: Dr. Payan. Given patient bed bound risks > benefits. 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 History of lymphoma per patient and is receiving chemo tx, last known to be February 2020. - 2U PRBCs ordered and transfused on admission - 1 u PRBC given 04/26 - Hb Stable - Rectic count wnl, Iron and Iron sat low, Ferritin wnl - No active signs of bleeding - Hematology consulted, appreciate recs - CTM for signs of bleeding - Patient will need colonoscopy as outpatient in the future : Gi Consulted; Dr. Carter #sinus tachycardia, due to COVID pna - monitor EKG - Cardiology consulted: Dr. Wan #proctitis #Constipation- > improving - Aggressive bowel regimen - GI aware: Appreciate recommendations - Colace, miralax, - s/p enema and ducolax with improvement #chronic urinary retention - since patient had spine surgery earlier in the year - unsure if has true urinary retention - d/w nephrology -> voiding trial, however patient refused. #Hypokalemia #hypomagnesia - Lytes replaced - appreciate nephro management FENPPX DVTPPX: per primary. Consider changing to HSQ if Cr does not imrp Fluids: per nephro Diet: regular Lines: PIV PT/OT: pending Code status:Full Dispo: back to SNF Reason for Continued Hospitalization: monitoring fever curve, potential discharge to SNF tomorrow. Dispo - Discharge back to SNF once fever and tachycardia improve. MIPS ([employer]-based Incentive Payment System) Applicable CPT: 07379, 45094 CHECK ALL THAT ARE MET: [] Measure #5 (CHF): All ages. Prescribe LINDSAY/ARB upon discharge for patients with left ventricular systolic dysfunction. If not, the reason is clearly documented in the medical chart [] Measure #8 (CHF): All ages. Prescribe a beta domenico upon discharge for patients with left ventricular systolic dysfunction. If not, the reason is clearly documented in the medical chart. [x] Measure #47: Advance care plan or surrogate decision maker documented in the medical record. [x] Measure #130 The provider has documented, updated, or reviewed the patients current medication list and has documented it in the patients note. [] Measure #374 (All): Send report to referring provider. [] Measure #407(Sepsis due to MSSA bacteremia): Age 18+ Patient treated with a beta-lactam antibiotic (Nafcillin, Oxacillin or Cefazolin) as definitive therapy. MEDICAL COMPLEXITYHigh complexity medical decision making (need 2/3 categories)Problem - need 4 points [x]Acute/new problem with new plan for workup (4 points, 1 max) [] Acute/new problem without additional workup (3 points, 1 max) [] Unstable chronic problem actively being managed (2 point each, 2 max) [x] Stable chronic problem actively being managed (1 point each, 2 max) [x] Self-limited/transient process (constipation, muscle ache, etc) (1 point each, 2 max) Data - need 4 points [x] Reviewed labs/imaging studies (1 points, 2 max) [x] Independent review of imaging (EKG, xrays, etc) (2 points, 2 max) [x] Discussed case with consult/other MD/RN (2 points, 2 max) High Risk - qualify if have one of the following: [x] Severe exacerbation of acute problem, acute mental status change, IV narcotics, monitoring drug levels (vancomycin, INR, tacrolimus etc) I spent 36 minutes on this patient's case, and 20 mins was dedicated to counseling and/or care coordination. Discussed with nephrology, ID, RN at bedside. Time of note may not reflect time of encounter Albin Barker M.D. Apr 28, 2020 14:46
[2020-04-28 16:00] VITALS: BP 137/86
[2020-04-28] MEDS ORDERED: HYDROcodone/Acetamin 5/325 tab ORAL PRN (16:17)
[2020-04-28] MEDS ORDERED: Morphine Sulfate 4mg/ml Inj (IV USE ONLY) IVP PRN (16:18)
--- NOTE | 2020-04-28 19:18 | NUR ---
NURSE HAND-OFF: Important Events on Shift:No BM yet, KPhos x2 and KDur x1 administered (K3.0) Patient Status: stable Diet: Regular Pending Orders: Labs AM Pending Results/Labs:CBC BMP MG PHOS 04/29 Pending MD notification:none Latest Vital Signs: Temperature 98.6 , Pulse 93 , B/P 137 /86 , Respiratory Rate 18 , O2 SAT 95 , Nasal Cannula, O2 Flow Rate 1.0 . Vital Sign Comment: Afebrile throughout shift Latest Urbina Fall Score: 55 Fall Risk: High Risk Safety Measures: Call light Within Reach, Bed Alarm Zone 1, Side Rails Side Rails x3, Bed position Low and Locked. Fall Precautions: Door Sign Patient Fall Education Report given to Lori LUCIA.
--- NOTE | 2020-04-28 19:30 | NUR ---
NURSE NOTES: Received report from kris chaudhry. patient on bed, awake and verbally responsive. no iv. denies any pain or discomfort at the moment. on nasal cannula at 2 lpm. no sob. afebrile. with eaton catheter 16f, draining well. reiterated to call and ask for assistance to prevent fall or injury. bed locked and in lowest position. call light and light button within easy reach. will continue plan of care.
[2020-04-28 20:00] VITALS: BP 142/83
[2020-04-28] MEDS: Dyna-Hex 2% Top Sol 2oz TOPIC SCH (20:00)
--- NOTE | 2020-04-28 20:52 | Neurology Progress Note ---
Interim History Interim History ROS Limited/Unobtainable: No Interim History no new deficits Objective Physical Exam Last Vital Signs Date Time Temp Pulse Resp B/P (MAP) Pulse Ox O2 Delivery O2 Flow Rate FiO2 04/28/20 19:00 94 Room Air 21 04/28/20 16:00 98.6 93 18 137/86 (103) 04/27/20 20:19 1.0 Laboratory Tests Test 04/28/20 04:45 White Blood Count 3.9 K/UL (4.8-10.8) L Red Blood Count 3.59 M/UL (4.20-5.40) L Hemoglobin 9.9 G/DL (12.0-16.0) L Hematocrit 29.9 % (37.0-47.0) L Mean Corpuscular Volume 83 FL (80-99) Mean Corpuscular Hemoglobin 27.5 PG (27.0-31.0) Mean Corpuscular Hemoglobin Concent 33.1 G/DL (32.0-36.0) Red Cell Distribution Width 17.9 % (11.6-14.8) H Platelet Count 283 K/UL (150-450) Mean Platelet Volume 5.4 FL (6.5-10.1) L Neutrophils (%) (Auto) 63.6 % (45.0-75.0) Lymphocytes (%) (Auto) 18.5 % (20.0-45.0) L Monocytes (%) (Auto) 9.9 % (1.0-10.0) Eosinophils (%) (Auto) 5.7 % (0.0-3.0) H Basophils (%) (Auto) 2.3 % (0.0-2.0) H Sodium Level 145 MMOL/L (136-145) Potassium Level 3.0 MMOL/L (3.5-5.1) L Chloride Level 109 MMOL/L (98-107) H Carbon Dioxide Level 23 MMOL/L (21-32) Blood Urea Nitrogen 11 mg/dL (7-18) Creatinine 1.0 MG/DL (0.55-1.30) Estimat Glomerular Filtration Rate > 60 mL/min (>60) Glucose Level 68 MG/DL (74-106) L Calcium Level 7.4 MG/DL (8.5-10.1) L Phosphorus Level 3.5 MG/DL (2.5-4.9) Magnesium Level 1.0 MG/DL (1.8-2.4) L Impression/Recommendations Problems: (1) Anemia Status: stable Diagnostic Impression Chronic weakness, LE worse than UEs MRI spine noted, osteoma wo spine compression slplaminectomy COVID 19 pneumonia (febrile, tachycardic) Hx of Lymphoma cont medical support pain control PT as able Renny Bajwa MD Apr 28, 2020 20:52
--- NOTE | 2020-04-28 21:00 | NUR ---
NURSE NOTES: new iv line on the left forearm.
[2020-04-29] VITALS: BP 122/77
[2020-04-29] MEDS: Lactulose 20gm/30ml UDC ORAL SCH ×4 (01:00→13:19)
[2020-04-29 04:00] VITALS: BP 128/81
[2020-04-29] MEDS: Heparin 5000 units/ml inj SUBQ SCH ×3 (05:03→22:00)
[2020-04-29] MEDS: Morphine Sulfate 2mg/ml Inj(IV/IM USE ONLY) IVP PRN ×4 (05:54→18:18)
--- NOTE | 2020-04-29 06:10 | NUR ---
NURSE NOTES: PATIENT AGREED TO TAKE LINZESS PRIOR TO TAKING OUT THE MEDICINE IN THE [facility]. SCANNED PT'S ID BAR CODE AND MEDICATION BARCODE, OPENED AND PUT IN THE MEDICATION CUP. WENT BACK TO THE ROOM AND PATIENT REFUSED MEDICATION.
--- NOTE | 2020-04-29 06:33 | NUR ---
NURSE HAND-OFF: Important Events on Shift: BM X1 Patient Status: STABLE Diet: REGULAR Pending Orders: Pending Results/Labs: Pending MD notification: Latest Vital Signs: Temperature 97.9 , Pulse 98 , B/P 128 /81 , Respiratory Rate 18 , O2 SAT 100 , Nasal Cannula, O2 Flow Rate 1.0 . Vital Sign Comment: Latest Urbina Fall Score: 55 Fall Risk: High Risk Safety Measures: Call light Within Reach, Bed Alarm Zone 1, Side Rails Side Rails x3, Bed position Low and Locked. Fall Precautions: Door Sign Patient Fall Education Addendum: 04/29/20 at 0729 by Ale Nunez RN HAND-OFF: Report given to kris diaz.
[2020-04-29 08:00] VITALS: BP 139/92
--- NOTE | 2020-04-29 08:00 | NUR ---
NURSE NOTES: Report received from Ale Nunez RN Patient vital signs stable, non febrile. Refused NC but n s/s of respiratory distress, stable on RA . Patient c/o nausea and vomiting. Patient given crackers and water. IV site patent but tender. RN will access another IV site. Bed in lowest position and locked. Call light within reach. Will continue to monitor.
[2020-04-29] MEDS: Miralax 17gm pkt ORAL SCH (09:00)
[2020-04-29] MEDS: Docusate 100mg cap ORAL SCH ×2 (09:00→17:06)
[2020-04-29] MEDS: Ascorbic Acid 500mg tab ORAL SCH (09:27)
[2020-04-29] MEDS: Dronabinol 2.5mg Cap ORAL SCH ×2 (09:27→17:06)
--- NOTE | 2020-04-29 10:15 | General Progress Note ---
Subjective ROS Limited/Unobtainable: No Allergies: Coded Allergies: No Known Allergies (Unverified , 04/11/20) Objective Last 24 Hour Vital Signs Date Time Temp Pulse Resp B/P (MAP) Pulse Ox O2 Delivery O2 Flow Rate FiO2 04/29/20 08:21 94 Room Air 21 04/29/20 08:00 98.4 110 18 139/92 (108) 96 04/29/20 06:24 97.9 04/29/20 04:00 97.9 98 18 128/81 (97) 100 04/29/20 00:00 98.6 102 20 122/77 (92) 96 04/28/20 21:20 98.6 04/28/20 21:00 Room Air 04/28/20 20:00 98.2 103 20 142/83 (102) 97 04/28/20 19:00 94 Room Air 21 04/28/20 16:00 98.6 93 18 137/86 (103) 95 04/28/20 12:00 98.4 114 20 131/86 (101) 94 Intake and Output 04/28/20 04/29/20 19:00 07:00 Intake Total 1550 ml 360 ml Output Total 875 ml 1800 ml Balance 675 ml -1440 ml Intake Oral 400 ml IV Total 550 ml Other 600 ml 360 ml Output Urine Total 875 ml 1800 ml # Voids 1 Height (Feet): 5 Height (Inches): 7.00 Weight (Pounds): 150 General Appearance: no apparent distress EENT: normal ENT inspection Neck: supple Cardiovascular: normal rate Respiratory/Chest: decreased breath sounds Abdomen: decreased bowel sounds Extremities: non-tender Assessment/Plan Status: stable Assessment/Plan: iron def anemia mild elevated CEA lymphoma on chemo covid positive neg stool ob iv iron fu H&H needs out patient fu for colonoscopy fu oncology CT reviewed colace miralax lactulose tammy west MVI vit c s/p blood transfusion Patrick Carter MD Apr 29, 2020 10:15
[2020-04-29] MEDS: HYDROcodone/Acetamin 10/325 tab ORAL PRN (10:46)
[2020-04-29 11:07] LABS: BASOPHILS % (AUTO) 1.6 % (0.0-2.0); EOSINOPHILS % (AUTO) 2.9 % (0.0-3.0); HEMATOCRIT 29.7 % (37.0-47.0); HEMOGLOBIN 9.8 G/DL (12.0-16.0); LYMPHOCYTES % (AUTO) 16.1 % (20.0-45.0); MEAN CORPUSCULAR VOLUME 82 FL (80-99); MONOCYTES % (AUTO) 6.2 % (1.0-10.0); NEUTROPHILS % (AUTO) 73.3 % (45.0-75.0); PLATELET COUNT 310 K/UL (150-450); RED BLOOD COUNT 3.63 M/UL (4.20-5.40); RED CELL DISTRIBUTION WIDTH 18.4 % (11.6-14.8); WHITE BLOOD COUNT 4.9 K/UL (4.8-10.8)
[2020-04-29 11:25] LABS: ANION GAP 13 mmol/L (5-15); BLOOD UREA NITROGEN 6 mg/dL (7-18); CARBON DIOXIDE 23 MMOL/L (21-32); CHLORIDE 108 MMOL/L (98-107); CREATININE 0.8 MG/DL (0.55-1.30); PHOSPHORUS 3.9 MG/DL (2.5-4.9); POTASSIUM 3.2 MMOL/L (3.5-5.1); SODIUM 144 MMOL/L (136-145)
--- NOTE | 2020-04-29 11:31 | NUR ---
NURSE NOTES: Deli from laboratory called. Magnesium value is 0.6. Notified RN.
--- NOTE | 2020-04-29 11:32 | Nephrology Progress Note ---
Assessment/Plan Plan #acute kidney injury likely due to vanco toxicity #hypokalemia- #hypomagnesemia #Acute on chronic anemia #h/p non- hodgkins lymphoma #possible sepsis #+ COVID #Femoral intertrochanteric hip fracture. - replete k and mag - Pulmonary eval - prbc transfusion prn - replete lytes - hemo-onc eval - ID eval - monitor CBC - avoid nephrotoxins - ortho eval - spine eval for L3 acute on chronic bone infarct, less likely neoplasm or infection? times spent 65 min Subjective ROS Limited/Unobtainable: No Subjective Cr better today febrile overnight DC held hip fracture noted ortho consulted Impression: Minimal distention of the rectum with feces, could represent mild rectal fecal impaction. Equivocal slight thickening of the rectal wall and stranding of the perirectal fat, if real could indicate mild stercoral proctitis Comminuted fracture of the left femoral head, neck, and intertrochanteric region, ununited. Possibly acute, but abundant soft tissues surrounding the fracture area raises possibility that this could be chronic. Correlate with clinical findings Other findings as noted, including evidence of old T12 vertebral body compression fracture and prior vertebral augmentation procedure, Morales catheter, subcentimeter low-attenuation lesions which probably represent renal cysts, small sliding-type hiatal hernia Impression: Unusual signal abnormality of the posterolateral aspect of the L3 vertebral body on the right. This appears to be confined to the vertebral body marrow space. Prior CT scan in retrospect demonstrates sclerotic areas in the same location. Most likely differential consideration is an atypical hemangioma. Other possibilities include acute on chronic bone infarct, less likely neoplasm or infection No other unusual contrast enhancement. No findings to suggest discitis or epidural abscess. Objective Objective Last 24 Hour Vital Signs Date Time Temp Pulse Resp B/P (MAP) Pulse Ox O2 Delivery O2 Flow Rate FiO2 04/29/20 08:21 94 Room Air 21 04/29/20 08:00 98.4 110 18 139/92 (108) 96 04/29/20 06:24 97.9 04/29/20 04:00 97.9 98 18 128/81 (97) 100 04/29/20 00:00 98.6 102 20 122/77 (92) 96 04/28/20 21:20 98.6 04/28/20 21:00 Room Air 04/28/20 20:00 98.2 103 20 142/83 (102) 97 04/28/20 19:00 94 Room Air 21 04/28/20 16:00 98.6 93 18 137/86 (103) 95 04/28/20 12:00 98.4 114 20 131/86 (101) 94 Intake and Output 04/28/20 04/29/20 19:00 07:00 Intake Total 1550 ml 360 ml Output Total 875 ml 1800 ml Balance 675 ml -1440 ml Intake Oral 400 ml IV Total 550 ml Other 600 ml 360 ml Output Urine Total 875 ml 1800 ml # Voids 1 Laboratory Tests 04/29/20 10:10: White Blood Count 4.9, Red Blood Count 3.63L, Hemoglobin 9.8L, Hematocrit 29.7L, Mean Corpuscular Volume 82, Mean Corpuscular Hemoglobin 27.0, Mean Corpuscular Hemoglobin Concent 33.0, Red Cell Distribution Width 18.4H, Platelet Count 310, Mean Platelet Volume 5.7L, Neutrophils (%) (Auto) 73.3, Lymphocytes (%) (Auto) 16.1L, Monocytes (%) (Auto) 6.2, Eosinophils (%) (Auto) 2.9, Basophils (%) (Auto) 1.6, Sodium Level 144, Potassium Level 3.2L, Chloride Level 108H, Carbon Dioxide Level 23, Anion Gap 13, Blood Urea Nitrogen 6L, Creatinine 0.8, Estimat Glomerular Filtration Rate > 60, Glucose Level 70L, Calcium Level 7.0L, Phosphorus Level 3.9, Magnesium Level 0.6*L Height (Feet): 5 Height (Inches): 7.00 Weight (Pounds): 150 General Appearance: no apparent distress Objective General Appearance: no apparent distress EENT: PERRL/EOMI Neck: non-tender, normal alignment Cardiovascular: normal peripheral pulses, normal rate Respiratory/Chest: chest wall non-tender, lungs clear Abdomen: normal bowel sounds, non tender Neurologic: alert, oriented x 3 Kallie Dykes M.D. Apr 29, 2020 11:32
--- NOTE | 2020-04-29 11:34 | NUR ---
NURSE NOTES: RN not able to access new IV site. RN wasted morphine 2 mg/ml with REA Calderon
--- NOTE | 2020-04-29 11:53 | NUR ---
RN notified Dr. Barker of patient's low magnesium and potassium level. He put in the order for magnesium and potassium IV. Orders verified one by one and carried out. Patient's nausea got better and intake increased by 20 percent. Patient stable.
[2020-04-29 12:00] VITALS: BP 139/90
--- NOTE | 2020-04-29 12:26 | Pulmonology Progress Note ---
Subjective ROS Limited/Unobtainable: No Interval Events: None new Constitutional: Reports: fever, fatigue HEENT: Repors: no symptoms Respiratory: Reports: no symptoms, dry cough Cardiovascular: Reports: no symptoms Gastrointestinal/Abdominal: Denies: nausea, vomiting, diarrhea Psychiatric: Denies: depression Skin: Denies: rash Musculoskeletal: Denies: pain Allergies: Coded Allergies: No Known Allergies (Unverified , 04/11/20) Objective Last 24 Hour Vital Signs Date Time Temp Pulse Resp B/P (MAP) Pulse Ox O2 Delivery O2 Flow Rate FiO2 04/29/20 11:16 98.4 04/29/20 08:21 94 Room Air 21 04/29/20 08:00 98.4 110 18 139/92 (108) 96 04/29/20 06:24 97.9 04/29/20 04:00 97.9 98 18 128/81 (97) 100 04/29/20 00:00 98.6 102 20 122/77 (92) 96 04/28/20 21:20 98.6 04/28/20 21:00 Room Air 04/28/20 20:00 98.2 103 20 142/83 (102) 97 04/28/20 19:00 94 Room Air 21 04/28/20 16:00 98.6 93 18 137/86 (103) 95 Intake and Output 04/28/20 04/29/20 19:00 07:00 Intake Total 1550 ml 360 ml Output Total 875 ml 1800 ml Balance 675 ml -1440 ml Intake Oral 400 ml IV Total 550 ml Other 600 ml 360 ml Output Urine Total 875 ml 1800 ml # Voids 1 General Appearance: WD/WN, no acute distress HEENT: normocephalic, atraumatic Respiratory: lungs clear Cardiovascular: normal rate, regular rhythm Abdomen: soft, non tender Genitourinary: other - Morales Extremities: no edema Microbiology Date/Time Source Procedure Growth Status 04/27/20 00:00 Indwelling Cath Urine Culture - Preliminary YEAST Resulted Laboratory Tests 04/29/20 10:10: White Blood Count 4.9, Red Blood Count 3.63L, Hemoglobin 9.8L, Hematocrit 29.7L, Mean Corpuscular Volume 82, Mean Corpuscular Hemoglobin 27.0, Mean Corpuscular H emoglobin Concent 33.0, Red Cell Distribution Width 18.4H, Platelet Count 310, Mean Platelet Volume 5.7L, Neutrophils (%) (Auto) 73.3, Lymphocytes (%) (Auto) 16.1L, Monocytes (%) (Auto) 6.2, Eosinophils (%) (Auto) 2.9, Basophils (%) (Auto) 1.6, Sodium Level 144, Potassium Level 3.2L, Chloride Level 108H, Carbon Dioxide Level 23, Anion Gap 13, Blood Urea Nitrogen 6L, Creatinine 0.8, Estimat Glomerular Filtration Rate > 60, Glucose Level 70L, Calcium Level 7.0L, Phospho jeri Level 3.9, Magnesium Level 0.6*L Current Medications Medications (Trade) Dose Ordered Sig/Angelika Route PRN Reason Start Time Stop Time Status Last Admin Dose Admin Acetaminophen (Tylenol) 650 mg Q6H PRN ORAL Mild Pain (Pain Scale 1-3) 04/12/20 02:45 05/12/20 02:44 04/27/20 16:23 Acetaminophen (Tylenol) 650 mg Q6H PRN ORAL FEVER 04/12/20 16:30 05/12/20 16:29 04/27/20 00:38 Acetaminophen/ Hydrocodone Bitart (Laurens 10/325) 1 tab Q6H PRN ORAL severe pain 04/28/20 16:17 05/05/20 16:16 04/29/20 10:46 Acetaminophen/ Hydrocodone Bitart ([place]rens 5/325) 1 tab Q6H PRN ORAL moderate pain 04/28/20 16:17 05/05/20 16:16 Allopurinol (allopurinoL) 300 mg DAILY ORAL 04/12/20 09:00 05/12/20 08:59 04/29/20 09:27 Ascorbic Acid (Vitamin C) 500 mg DAILY ORAL 04/26/20 09:00 05/26/20 08:59 04/29/20 09:27 Baclofen (Lioresal) 10 mg THREE TIMES A DAY ORAL 04/12/20 09:00 05/12/20 08:59 04/29/20 09:27 Chlorhexidine Gluconate (Christy-Hex 2%) 1 applic Q24H TOPIC 04/25/20 20:00 07/24/20 19:59 04/25/20 20:20 Docusate Sodium (Colace) 100 mg TWICE A DAY ORAL 04/27/20 09:00 05/20/20 08:59 04/28/20 17:14 Dronabinol (Marinol) 2.5 mg BID ORAL 04/27/20 09:00 07/24/20 17:59 04/29/20 09:27 Heparin Sodium (Porcine) (Heparin 5000 units/ml) 5,000 units EVERY 8 HOURS SUBQ 04/24/20 22:00 06/08/20 21:59 Lactulose (Cephulac) 20 gm THREE TIMES A DAY ORAL 04/21/20 13:00 05/21/20 12:59 04/28/20 17:14 Linaclotide (Linzess) 290 mcg BEFORE BREAKFAST ORAL 04/26/20 06:30 07/25/20 06:29 04/28/20 06:54 Magnesium Sulfate 100 ml @ 100 mls/hr Q1H IVPB 04/29/20 13:00 04/29/20 16:59 Morphine Sulfate (Morphine Sulfate) 2 mg Q3H PRN IVP Severe Pain (Pain Scale 7-10) 04/28/20 16:17 05/05/20 16:16 04/29/20 05:54 Morphine Sulfate (Morphine Sulfate) 4 mg Q3H PRN IVP SEVERE BREAKTHRU PAIN 04/28/20 16:18 05/05/20 16:17 Multivitamins (Multivitamins) 1 tab DAILY ORAL 04/26/20 09:00 05/26/20 08:59 04/29/20 09:27 Ondansetron HCl (Zofran) 4 mg Q6H PRN IVP Nausea & Vomiting 04/19/20 13:30 05/19/20 13:29 Polyethylene Glycol (Miralax) 17 gm DAILY ORAL 04/20/20 09:00 05/20/20 08:59 04/28/20 09:14 Potassium Chloride 100 ml @ 100 mls/hr Q1H IVPB 04/29/20 14:00 04/29/20 17:59 Sodium Chloride 1,000 ml @ 50 mls/hr Q20H IV 04/26/20 20:15 05/26/20 20:14 04/29/20 09:27 Assessment/Plan Assessment/Plan 1. COVID-19 positivity. - COVID-19 PCR 04/21 positive: cont isolation - no indication for steroid or remdesivir given her normoxemia at this time - s/p cefepime - CXR with diffuse non-specific inflammatory/infectious process - cont supplemental oxygen as needed - CT A/P/C - no obvious pna or abscess, cultures negative 2. Immunocompromised state with history of non-Hodgkin lymphoma. - on chemo - h/o port line infection; s/p Vanco - to return to onco for further Tx per heme 3. Fever - urine culture, blood culture pending per nephro 4. Hx of Hypertension. 5. Gout. 6. Anemia - s/p pRBC DVT ppx - on SCD - pt refusing heparin Low TSH; improving - Dr. Fermin following - no need for levothyroxine per Dr. Fermin UTI - UA result noted - per nephro We will follow carefully as guard manager Ricky Jordan MD Apr 29, 2020 12:26
--- NOTE | 2020-04-29 13:59 | NUR ---
NURSE NOTES: Patient refused Miralax, Colace and Lactulose because the patient had a big bowel movement yesterday.
[2020-04-29 16:00] VITALS: BP 105/83
--- NOTE | 2020-04-29 19:13 | General Progress Note ---
Subjective Date patient seen: Apr 29, 2020 ROS Limited/Unobtainable: No Allergies: Coded Allergies: No Known Allergies (Unverified , 04/11/20) Subjective Mg level and K level low today, needs repletion. Overall patient doing well. Denies cough, SOB. No other complaints. Review of systems: Constitutional: Denies: chills, diaphoresis, malaise, weakness, fever HEENT: Denies: eye pain, blurred vision, double vision, ear pain, nose pain, throat pain, Cardiovascular: Denies: chest pain, edema, lightheadedness, palpitations Respiratory: SEe HPI Gastrointestinal/Abdominal: Denies: abdominal pain, black stools, blood in stool, constipation, diarrhea, nausea, poor fluid intake vomiting, other Genitourinary: Denies: burning, discharge, frequency, Neurologic/Psychiatric: Denies: headache, numbness, paresthesia, new weakness, other Endocrine: Denies: excessive sweating, flushing, intolerance to cold, MSK: denies joint pains, swelling, stiffness, back pain Hematologic/Lymphatic: Denies: anemia, easy bleeding, easy bruising, Objective Last 24 Hour Vital Signs Date Time Temp Pulse Resp B/P (MAP) Pulse Ox O2 Delivery O2 Flow Rate FiO2 04/29/20 16:00 98.2 97 18 105/83 (90) 99 04/29/20 12:00 98.4 99 18 139/90 (106) 96 04/29/20 11:16 98.4 04/29/20 09:00 Room Air 04/29/20 08:21 94 Room Air 21 04/29/20 08:00 98.4 110 18 139/92 (108) 96 04/29/20 06:24 97.9 04/29/20 04:00 97.9 98 18 128/81 (97) 100 04/29/20 00:00 98.6 102 20 122/77 (92) 96 04/28/20 21:20 98.6 04/28/20 21:00 Room Air 04/28/20 20:00 98.2 103 20 142/83 (102) 97 Intake and Output 04/28/20 04/29/20 19:00 07:00 Intake Total 1550 ml 360 ml Output Total 875 ml 1800 ml Balance 675 ml -1440 ml Intake Oral 400 ml IV Total 550 ml Other 600 ml 360 ml Output Urine Total 875 ml 1800 ml # Voids 1 Laboratory Tests 04/29/20 10:10: White Blood Count 4.9, Red Blood Count 3.63L, Hemoglobin 9.8L, Hematocrit 29.7L, Mean Corpuscular Volume 82, Mean Corpuscular Hemoglobin 27.0, Mean Corpuscular Hemoglobin Concent 33.0, Red Cell Distribution Width 18.4H, Platelet Count 310, Mean Platelet Volume 5.7L, Neutrophils (%) (Auto) 73.3, Lymphocytes (%) (Auto) 16.1L, Monocytes (%) (Auto) 6.2, Eosinophils (%) (Auto) 2.9, Basophils (%) (Auto) 1.6, Sodium Level 144, Potassium Level 3.2L, Chloride Level 108H, Carbon Dioxide Level 23, Anion Gap 13, Blood Urea Nitrogen 6L, Creatinine 0.8, Estimat Glomerular Filtration Rate > 60, Glucose Level 70L, Calcium Level 7.0L, Phosphorus Level 3.9, Magnesium Level 0.6*L Height (Feet): 5 Height (Inches): 7.00 Weight (Pounds): 150 Objective General: WDWN female in NAD, A&O x 4, pleasant, conversant HEENT: Normocephalic cephalic atraumatic, pupils equal round reactive to light and accommodation, nares patent and no symmetrical, no tonsillar exudates, mucous membranes slighly dry CV: Regular rate regular rhythm, no murmurs, rubs, or gallops Pulm: Lungs clear to auscultation bilaterally. No wheezes, rhonchi, or rales GI: Soft, nontender, nondistended, bowel sounds present + eaton in place, no suprapubic TTP Neuro: CN 2-12 intact bilaterally, no focal signs. Moving all extremities Ext: No lower extremity edema bilaterally Skin: no rashes lesions or ulcers Msk: Joints symmetrical in upper extremity and lower extremity bilaterally, no joint swelling. Lymph: No lymphadenopathy in upper extremity and lower extremity Assessment/Plan Status: stable Assessment/Plan: #Hx of Sepsis 2' port infection #Sepsis due to COVID 19 pneumonia (febrile, tachycardic) #COVID 19+ #Continued fever of unknown origin. COVID vs. cancer related? - Afebrile past 48 hours - CTM Fever curve. Could be due to underlying malignancy - f/u Blood/Urine cultures 04/26 for new FFWU - Prior Blood cultures NGTD - Repeat UA: negative - Repeat CXR: Bronchial thickening - CT C/A/P including CT angio to eval for PE. : reviewed. No PE. No obvious infection. Incidental left hip fracture - IV fluids as needed - D/W ID. - Port has been removed at OSH - , - ngtd - Cefepime (04/14 - 04/15) - Per patient she is to continue on Vancomycin till 04/25 - D/c vanc - ID Consult, appreciate recs - MRI C/T/L spine w/wo contrast to eval for abscess: No sign of infection, abscess or osteo #L3 lesion on MRI: bone infarct vs. osteoid osteoma vs. less likely infection #Chronic LE weakness #s/p Laminectomy earlier in the year #Chronic Back pain > d/w radiology Dr. Hedrick - d/w ID, Neuro - outpatient f/u with spine surgeon: Dr. Nino in [facility] - appreciate neurology consult: Dr. Bajwa - PT when able - [place] 5/10 Q6hr PRN moderate to severe and IV Morphine for BTP #JIM, pre-renal vs. due to vanc toxicity - Resolved #Hypokalemia #Hypomagnesemia > Vanc level 35 - urine lytes - Nephrology on board: D/w Dr. hatch - Fluids per nephro #Hypothyroidism, suspect central given TSH and T4 both low - endocrinology consulted: Dr. Fermin to see - FSHpending. #left hip fracture, suspect chronic > Patient states she fell 5 months ago but no recent falls. Also had hard fall on coccyx in 2018. Minimal pain in left hip > Patient states she has not walked for months but is not paraplegic. Severe debilitation. - appreciate ortho eval: Dr. Payan. Given patient bed bound risks > benefits. 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 History of lymphoma per patient and is receiving chemo tx, last known to be February 2020. - 2U PRBCs ordered and transfused on admission - 1 u PRBC given 04/26 - Hb Stable - Rectic count wnl, Iron and Iron sat low, Ferritin wnl - No active signs of bleeding - Hematology consulted, appreciate recs - CTM for signs of bleeding - Patient will need colonoscopy as outpatient in the future : Gi Consulted; Dr. Carter #sinus tachycardia, due to COVID pna - monitor EKG - Cardiology consulted: Dr. Wan #proctitis #Constipation- > improving - Aggressive bowel regimen - GI aware: Appreciate recommendations - Colace, miralax, - s/p enema and ducolax with improvement #chronic urinary retention - since patient had spine surgery earlier in the year - unsure if has true urinary retention - d/w nephrology -> voiding trial, however patient refused. #Hypokalemia #hypomagnesia - Lytes replaced - appreciate nephro management FENPPX DVTPPX: per primary. Consider changing to HSQ if Cr does not imrp Fluids: per nephro Diet: regular Lines: PIV PT/OT: pending Code status:Full Dispo: back to SNF Reason for Continued Hospitalization: monitoring fever curve, potential discharge to SNF tomorrow. Dispo - Discharge back to SNF once electrolytes improve, likely tomorrow MIPS ([employer]-based Incentive Payment System) Applicable CPT: 75527, 46423 CHECK ALL THAT ARE MET: [] Measure #5 (CHF): All ages. Prescribe LINDSAY/ARB upon discharge for patients with left ventricular systolic dysfunction. If not, the reason is clearly documented in the medical chart [] Measure #8 (CHF): All ages. Prescribe a beta domenico upon discharge for patients with left ventricular systolic dysfunction. If not, the reason is clearly documented in the medical chart. [x] Measure #47: Advance care plan or surrogate decision maker documented in the medical record. [x] Measure #130 The provider has documented, updated, or reviewed the patients current medication list and has documented it in the patients note. [] Measure #374 (All): Send report to referring provider. [] Measure #407(Sepsis due to MSSA bacteremia): Age 18+ Patient treated with a beta-lactam antibiotic (Nafcillin, Oxacillin or Cefazolin) as definitive therapy. MEDICAL COMPLEXITYHigh complexity medical decision making (need 2/3 categories)Problem - need 4 points [x]Acute/new problem with new plan for workup (4 points, 1 max) [] Acute/new problem without additional workup (3 points, 1 max) [] Unstable chronic problem actively being managed (2 point each, 2 max) [x] Stable chronic problem actively being managed (1 point each, 2 max) [x] Self-limited/transient process (constipation, muscle ache, etc) (1 point each, 2 max) Data - need 4 points [x] Reviewed labs/imaging studies (1 points, 2 max) [x] Independent review of imaging (EKG, xrays, etc) (2 points, 2 max) [x] Discussed case with consult/other MD/RN (2 points, 2 max) High Risk - qualify if have one of the following: [x] Severe exacerbation of acute problem, acute mental status change, IV narcotics, monitoring drug levels (vancomycin, INR, tacrolimus etc) I spent 36 minutes on this patient's case, and 20 mins was dedicated to counseling and/or care coordination. Discussed with nephrology, ID, RN at bedside. Time of note may not reflect time of encounter Albin Barker M.D. Apr 29, 2020 19:13
--- NOTE | 2020-04-29 19:17 | Neurology Progress Note ---
Interim History Interim History ROS Limited/Unobtainable: No Interim History no new deficits Objective Physical Exam Last Vital Signs Date Time Temp Pulse Resp B/P (MAP) Pulse Ox O2 Delivery O2 Flow Rate FiO2 04/29/20 16:00 98.2 97 18 105/83 (90) 99 04/29/20 09:00 Room Air 04/29/20 08:21 21 04/27/20 20:19 1.0 Laboratory Tests Test 04/29/20 10:10 White Blood Count 4.9 K/UL (4.8-10.8) Red Blood Count 3.63 M/UL (4.20-5.40) L Hemoglobin 9.8 G/DL (12.0-16.0) L Hematocrit 29.7 % (37.0-47.0) L Mean Corpuscular Volume 82 FL (80-99) Mean Corpuscular Hemoglobin 27.0 PG (27.0-31.0) Mean Corpuscular Hemoglobin Concent 33.0 G/DL (32.0-36.0) Red Cell Distribution Width 18.4 % (11.6-14.8) H Platelet Count 310 K/UL (150-450) Mean Platelet Volume 5.7 FL (6.5-10.1) L Neutrophils (%) (Auto) 73.3 % (45.0-75.0) Lymphocytes (%) (Auto) 16.1 % (20.0-45.0) L Monocytes (%) (Auto) 6.2 % (1.0-10.0) Eosinophils (%) (Auto) 2.9 % (0.0-3.0) Basophils (%) (Auto) 1.6 % (0.0-2.0) Sodium Level 144 MMOL/L (136-145) Potassium Level 3.2 MMOL/L (3.5-5.1) L Chloride Level 108 MMOL/L (98-107) H Carbon Dioxide Level 23 MMOL/L (21-32) Anion Gap 13 mmol/L (5-15) Blood Urea Nitrogen 6 mg/dL (7-18) L Creatinine 0.8 MG/DL (0.55-1.30) Estimat Glomerular Filtration Rate > 60 mL/min (>60) Glucose Level 70 MG/DL (74-106) L Calcium Level 7.0 MG/DL (8.5-10.1) L Phosphorus Level 3.9 MG/DL (2.5-4.9) Magnesium Level 0.6 MG/DL (1.8-2.4) *L Impression/Recommendations Problems: (1) Anemia Status: stable Diagnostic Impression Chronic weakness, LE worse than UEs MRI spine noted, osteoma wo spine compression slplaminectomy COVID 19 pneumonia (febrile, tachycardic) Hx of Lymphoma cont medical support pain control PT as able Renny Bajwa MD Apr 29, 2020 19:17
--- NOTE | 2020-04-29 19:35 | NUR ---
NURSE HAND-OFF: Important Events on Shift:bowel movement and refusal of stool softeners, non febrile Patient Status: stable Diet: regular Pending Orders: n/a Pending Results/Labs:n/a Pending MD notification:n/a Latest Vital Signs: Temperature 98.2 , Pulse 97 , B/P 105 /83 , Respiratory Rate 18 , O2 SAT 99 , Nasal Cannula, O2 Flow Rate 1.0 . Vital Sign Comment: stable Latest [place] Fall Score: 55 Fall Risk: High Risk Safety Measures: Call light Within Reach, Bed Alarm Zone 1, Side Rails Side Rails x3, Bed position Low and Locked. Fall Precautions: Door Sign Patient Fall Education Report given to REA Silverman.
[2020-04-29 20:00] VITALS: BP 104/74
[2020-04-29] MEDS: Dyna-Hex 2% Top Sol 2oz TOPIC SCH (20:00)
--- NOTE | 2020-04-29 21:36 | Cardiac Electrophysiology PN ---
Assessment/Plan Assessment/Plan 1. Sinus tachycardia due to sepsis, anemia and COVID. Can not use beta-domenico as blood pressure is 100/70. 2. COVID pneumonia. 3. Hypokalemia. 4. Hypomagnesemia. 5. History of non-Hodgkin lymphoma. 6. Leukopenia and anemia. FU Dr. Valencia S/P PRBC 7. Fever. Blood and urine Cx pending DW RN Subjective Subjective No events in Covid isolation. On Room Air. No fever overnight. S/P PRBC for 7.6 Objective Last 24 Hour Vital Signs Date Time Temp Pulse Resp B/P (MAP) Pulse Ox O2 Delivery O2 Flow Rate FiO2 04/29/20 16:00 98.2 97 18 105/83 (90) 99 04/29/20 12:00 98.4 99 18 139/90 (106) 96 04/29/20 11:16 98.4 04/29/20 09:00 Room Air 04/29/20 08:21 94 Room Air 21 04/29/20 08:00 98.4 110 18 139/92 (108) 96 04/29/20 06:24 97.9 04/29/20 04:00 97.9 98 18 128/81 (97) 100 04/29/20 00:00 98.6 102 20 122/77 (92) 96 Intake and Output 04/28/20 04/29/20 19:00 07:00 Intake Total 1550 ml 360 ml Output Total 875 ml 1800 ml Balance 675 ml -1440 ml Intake Oral 400 ml IV Total 550 ml Other 600 ml 360 ml Output Urine Total 875 ml 1800 ml # Voids 1 Laboratory Tests Test 04/29/20 10:10 White Blood Count 4.9 K/UL (4.8-10.8) Red Blood Count 3.63 M/UL (4.20-5.40) L Hemoglobin 9.8 G/DL (12.0-16.0) L Hematocrit 29.7 % (37.0-47.0) L Mean Corpuscular Volume 82 FL (80-99) Mean Corpuscular Hemoglobin 27.0 PG (27.0-31.0) Mean Corpuscular Hemoglobin Concent 33.0 G/DL (32.0-36.0) Red Cell Distribution Width 18.4 % (11.6-14.8) H Platelet Count 310 K/UL (150-450) Mean Platelet Volume 5.7 FL (6.5-10.1) L Neutrophils (%) (Auto) 73.3 % (45.0-75.0) Lymphocytes (%) (Auto) 16.1 % (20.0-45.0) L Monocytes (%) (Auto) 6.2 % (1.0-10.0) Eosinophils (%) (Auto) 2.9 % (0.0-3.0) Basophils (%) (Auto) 1.6 % (0.0-2.0) Sodium Level 144 MMOL/L (136-145) Potassium Level 3.2 MMOL/L (3.5-5.1) L Chloride Level 108 MMOL/L (98-107) H Carbon Dioxide Level 23 MMOL/L (21-32) Anion Gap 13 mmol/L (5-15) Blood Urea Nitrogen 6 mg/dL (7-18) L Creatinine 0.8 MG/DL (0.55-1.30) Estimat Glomerular Filtration Rate > 60 mL/min (>60) Glucose Level 70 MG/DL (74-106) L Calcium Level 7.0 MG/DL (8.5-10.1) L Phosphorus Level 3.9 MG/DL (2.5-4.9) Magnesium Level 0.6 MG/DL (1.8-2.4) *L Microbiology Date/Time Source Procedure Growth Status 04/27/20 00:00 Indwelling Cath Urine Culture - Final Lesia Albicans Complete 04/26/20 23:30 Blood Blood Culture - Preliminary NO GROWTH AFTER 48 HOURS Resulted 04/26/20 23:25 Blood Blood Culture - Preliminary NO GROWTH AFTER 48 HOURS Resulted Objective HEAD AND NECK: No JVD. LUNGS: Coarse rhonchi. CARDIOVASCULAR: Regular S1 and S2 with no gallop or murmur. ABDOMEN: Soft. EXTREMITIES: No pitting edema. Ehsan Wan MD Apr 29, 2020 21:36
[2020-04-30] VITALS: BP 115/76
[2020-04-30 04:00] VITALS: BP 133/82
[2020-04-30] MEDS: Heparin 5000 units/ml inj SUBQ SCH ×3 (04:59→20:47)
[2020-04-30] MEDS: Morphine Sulfate 2mg/ml Inj(IV/IM USE ONLY) IVP PRN ×4 (06:50→20:47)
--- NOTE | 2020-04-30 07:41 | NUR ---
NURSE NOTES: Report received from [place], RN. Pt awake in bed, alert and oriented x 4, no SOB, bed in lowest position breaks engaged and alarm on, denies any pain at this time, IV line present and intact, on NC at 2 lpm, on contact and droplet precautions for COVID 19, will continue to monitor and proceed with plan of care, call light within reach.
--- NOTE | 2020-04-30 07:56 | NUR ---
NURSE HAND-OFF: Important Events on Shift: Pain management with morphine 2mg. Fluid infusing. Wound picture taken and uploaded. Still on NC 2L, O2 at 95%, denies SOB Patient Status: Stable Diet: Regular Pending Orders: N/A Pending Results/Labs: N/A Pending MD notification: N/A Latest Vital Signs: Temperature 98.1 , Pulse 104 , B/P 133 /82 , Respiratory Rate 18 , O2 SAT 95 , Nasal Cannula, O2 Flow Rate 1.0 . Vital Sign Comment: Stable Latest [place] Fall Score: 55 Fall Risk: High Risk Safety Measures: Call light Within Reach, Bed Alarm Zone 1, Side Rails Side Rails x3, Bed position Low and Locked. Fall Precautions: Door Sign Patient Fall Education Report given to REA Park.
[2020-04-30 08:00] VITALS: BP 138/89
[2020-04-30] MEDS: Docusate 100mg cap ORAL SCH ×2 (09:09→17:33)
[2020-04-30] MEDS: Dronabinol 2.5mg Cap ORAL SCH ×2 (09:09→17:33)
[2020-04-30] MEDS: Lactulose 20gm/30ml UDC ORAL SCH ×3 (09:09→17:33)
[2020-04-30] MEDS: Miralax 17gm pkt ORAL SCH (09:09)
[2020-04-30] MEDS: Ascorbic Acid 500mg tab ORAL SCH (09:09)
--- NOTE | 2020-04-30 09:49 | Hematology/Onc Progress Note ---
Assessment/Plan Assessment/Plan # Leukopenia COVID19++++++++++ --> hep and hiv order as needed --> wbc 4-->3-->2.9->2->4.6--4.1-->3.6 --> Neupogen 300 x1 04/21 --> isolation if anc<500 # Non-Hodgkins Lymphoma is s/p chemotherapy in the past --> to return to [facility] for further treatment --> likely for ct/pet as outpatient --> CT Here shows no e/o disease --> imaging has been reviewed thus far --> end date of 04/2020 # Anemia likely of chronic disease -- does not appear to have iron deficiency --> transfuse as needed, tibc and ferritin are cw acd --> hgb 7.8-->8.6-->8.5-->8.4->7.6 --> no hemolysis is noted --> s/p transfusion on admission # Covid 19++ with SIRS (febrile, tachycardic) --> per pulm and id --> CXR with diffuse non-specific inflammatory/infectious process --> s/p Cefepime (04/14 - 04/15) # Hypokalemia # Hypomagnesia # Chronic Back pain # Full Code Appreciate consultation and dw Rn Subjective Constitutional: Denies: no symptoms, chills, fever, malaise, weakness, other HEENT: Denies: no symptoms, eye pain, blurred vision, tearing, double vision, ear pain, ear discharge, nose pain, nose congestion, throat pain, throat swelling, mouth pain, mouth swelling, other Cardiovascular: Denies: no symptoms, chest pain, edema, irregular heart rate, lightheadedness, palpitations, syncope, other Gastrointestinal/Abdominal: Denies: no symptoms, abdomen distended, abdominal pain, black stools, tarry stools, blood in stool, constipated, diarrhea, difficulty swallowing, nausea, poor appetite, poor fluid intake, rectal bleeding, vomiting, other Genitourinary: Denies: no symptoms, burning, discharge, frequency, flank pain, hematuria, incontinence, pain, urgency, other Neurologic/Psychiatric: Denies: no symptoms, anxiety, depressed, emotional problems, headache, numbness, paresthesia, pre-existing deficit, seizure, tingling, tremors, weakness, other Hematologic/Lymphatic: Denies: no symptoms, anemia, easy bleeding, easy bruising, adenopathy, other Allergies: Coded Allergies: No Known Allergies (Unverified , 04/11/20) Subjective 04/17 is on room air, more comfortable, potential dc to snf 04/18 labs reviewed, no bleeding, meds noted, no night sweats 04/19 sleeping comfortably, no major events, no night sweats 04/20 meds noted, labs reviewed, wbc 2.9, hep and hiv is neg 04/21 labs reviewed, in am, the wbc was 2, to get neupogen x 1 dose now 04/23 labs noted, no bleeding, wbc 4, hgb remains low, but holding off trans 04/24 labs are pending for am, meds reviewed, no bleeding 04/25 meds reviewed, labs noted, no night sweats, dw rn at bedside, no new events 04/26 labs reviewed, meds noted, no bleeding, wbc 3, hgb 7.6 04/27 dw rn at bedside, labs are noted, no bleeding, refusing heparin now sq 04/28 labs have been reviewed, is on room air, no bleeding, tachy 04/30 labs pending, no night sweats, meds reviewed, tachy, no night sweats, wants iv iron Objective Objective Current Medications Medications (Trade) Dose Ordered Sig/Angelika Route PRN Reason Start Time Stop Time Status Last Admin Dose Admin Acetaminophen (Tylenol) 650 mg Q6H PRN ORAL Mild Pain (Pain Scale 1-3) 04/12/20 02:45 05/12/20 02:44 04/27/20 16:23 Acetaminophen (Tylenol) 650 mg Q6H PRN ORAL FEVER 04/12/20 16:30 05/12/20 16:29 04/27/20 00:38 Acetaminophen/ Hydrocodone Bitart ([place] 10/325) 1 tab Q6H PRN ORAL severe pain 04/28/20 16:17 05/05/20 16:16 04/29/20 10:46 Acetaminophen/ Hydrocodone Bitart ([place] 5/325) 1 tab Q6H PRN ORAL moderate pain 04/28/20 16:17 05/05/20 16:16 Allopurinol (allopurinoL) 300 mg DAILY ORAL 04/12/20 09:00 05/12/20 08:59 04/30/20 09:09 Ascorbic Acid (Vitamin C) 500 mg DAILY ORAL 04/26/20 09:00 05/26/20 08:59 04/30/20 09:09 Baclofen (Lioresal) 10 mg THREE TIMES A DAY ORAL 04/12/20 09:00 05/12/20 08:59 04/30/20 09:09 Chlorhexidine Gluconate (Christy-Hex 2%) 1 applic Q24H TOPIC 04/25/20 20:00 07/24/20 19:59 04/25/20 20:20 Docusate Sodium (Colace) 100 mg TWICE A DAY ORAL 04/27/20 09:00 05/20/20 08:59 04/30/20 09:09 Dronabinol (Marinol) 2.5 mg BID ORAL 04/27/20 09:00 07/24/20 17:59 04/30/20 09:09 Heparin Sodium (Porcine) (Heparin 5000 units/ml) 5,000 units EVERY 8 HOURS SUBQ 04/24/20 22:00 06/08/20 21:59 Lactulose (Cephulac) 20 gm THREE TIMES A DAY ORAL 04/21/20 13:00 05/21/20 12:59 04/30/20 09:09 Linaclotide (Linzess) 290 mcg BEFORE BREAKFAST ORAL 04/26/20 06:30 07/25/20 06:29 04/30/20 06:50 Morphine Sulfate (Morphine Sulfate) 2 mg Q3H PRN IVP Severe Pain (Pain Scale 7-10) 04/28/20 16:17 05/05/20 16:16 04/30/20 06:50 Morphine Sulfate (Morphine Sulfate) 4 mg Q3H PRN IVP SEVERE BREAKTHRU PAIN 04/28/20 16:18 05/05/20 16:17 Multivitamins (Multivitamins) 1 tab DAILY ORAL 04/26/20 09:00 05/26/20 08:59 04/30/20 09:09 Ondansetron HCl (Zofran) 4 mg Q6H PRN IVP Nausea & Vomiting 04/19/20 13:30 05/19/20 13:29 04/29/20 18:17 Polyethylene Glycol (Miralax) 17 gm DAILY ORAL 04/20/20 09:00 05/20/20 08:59 04/30/20 09:09 Sodium Chloride 1,000 ml @ 50 mls/hr Q20H IV 04/26/20 20:15 05/26/20 20:14 04/30/20 04:25 Last 24 Hour Vital Signs Date Time Temp Pulse Resp B/P (MAP) Pulse Ox O2 Delivery O2 Flow Rate FiO2 04/30/20 09:00 Room Air 04/30/20 08:00 98.2 92 18 138/89 (105) 97 04/30/20 04:00 98.1 104 18 133/82 (99) 95 04/30/20 00:00 98.1 102 18 115/76 (89) 94 04/29/20 21:00 Room Air 04/29/20 20:00 97.9 97 17 104/74 (84) 93 04/29/20 16:00 98.2 97 18 105/83 (90) 99 04/29/20 12:00 98.4 99 18 139/90 (106) 96 04/29/20 11:16 98.4 04/29/20 09:00 Room Air 04/29/20 08:21 94 Room Air 21 04/29/20 08:00 98.4 110 18 139/92 (108) 96 04/29/20 06:24 97.9 04/29/20 04:00 97.9 98 18 128/81 (97) 100 04/29/20 00:00 98.6 102 20 122/77 (92) 96 04/28/20 21:20 98.6 04/28/20 21:00 Room Air 04/28/20 20:00 98.2 103 20 142/83 (102) 97 04/28/20 19:00 94 Room Air 21 04/28/20 16:00 98.6 93 18 137/86 (103) 95 04/28/20 12:00 98.4 114 20 131/86 (101) 94 l Intake and Output 04/29/20 04/30/20 19:00 07:00 Intake Total 780 ml 118 ml Output Total 900 ml 1100 ml Balance -120 ml -982 ml Intake Oral 480 ml IV Total 300 ml Other 118 ml Output Urine Total 900 ml 1100 ml Labs Test 04/28/20 04:45 04/29/20 10:10 White Blood Count 3.9 K/UL (4.8-10.8) 4.9 K/UL (4.8-10.8) Red Blood Count 3.59 M/UL (4.20-5.40) 3.63 M/UL (4.20-5.40) Hemoglobin 9.9 G/DL (12.0-16.0) 9.8 G/DL (12.0-16.0) Hematocrit 29.9 % (37.0-47.0) 29.7 % (37.0-47.0) Mean Corpuscular Volume 83 FL (80-99) 82 FL (80-99) Mean Corpuscular Hemoglobin 27.5 PG (27.0-31.0) 27.0 PG (27.0-31.0) Mean Corpuscular Hemoglobin Concent 33.1 G/DL (32.0-36.0) 33.0 G/DL (32.0-36.0) Red Cell Distribution Width 17.9 % (11.6-14.8) 18.4 % (11.6-14.8) Platelet Count 283 K/UL (150-450) 310 K/UL (150-450) Mean Platelet Volume 5.4 FL (6.5-10.1) 5.7 FL (6.5-10.1) Neutrophils (%) (Auto) 63.6 % (45.0-75.0) 73.3 % (45.0-75.0) Lymphocytes (%) (Auto) 18.5 % (20.0-45.0) 16.1 % (20.0-45.0) Monocytes (%) (Auto) 9.9 % (1.0-10.0) 6.2 % (1.0-10.0) Eosinophils (%) (Auto) 5.7 % (0.0-3.0) 2.9 % (0.0-3.0) Basophils (%) (Auto) 2.3 % (0.0-2.0) 1.6 % (0.0-2.0) Sodium Level 145 MMOL/L (136-145) 144 MMOL/L (136-145) Potassium Level 3.0 MMOL/L (3.5-5.1) 3.2 MMOL/L (3.5-5.1) Chloride Level 109 MMOL/L (98-107) 108 MMOL/L (98-107) Carbon Dioxide Level 23 MMOL/L (21-32) 23 MMOL/L (21-32) Blood Urea Nitrogen 11 mg/dL (7-18) 6 mg/dL (7-18) Creatinine 1.0 MG/DL (0.55-1.30) 0.8 MG/DL (0.55-1.30) Estimat Glomerular Filtration Rate > 60 mL/min (>60) > 60 mL/min (>60) Glucose Level 68 MG/DL (74-106) 70 MG/DL (74-106) Calcium Level 7.4 MG/DL (8.5-10.1) 7.0 MG/DL (8.5-10.1) Phosphorus Level 3.5 MG/DL (2.5-4.9) 3.9 MG/DL (2.5-4.9) Magnesium Level 1.0 MG/DL (1.8-2.4) 0.6 MG/DL (1.8-2.4) Anion Gap 13 mmol/L (5-15) Height (Feet): 5 Height (Inches): 7.00 Weight (Pounds): 150 Objective Gen: nad Pulm: ctab, no cwr CV: rrr Abd: soft, nt Ext: no cce Martinez Hill MD Apr 30, 2020 09:49
--- NOTE | 2020-04-30 09:57 | Pulmonology Progress Note ---
Subjective ROS Limited/Unobtainable: No Interval Events: None new Constitutional: Reports: fever, fatigue HEENT: Repors: no symptoms Respiratory: Reports: no symptoms, dry cough Cardiovascular: Reports: no symptoms Gastrointestinal/Abdominal: Denies: nausea, vomiting, diarrhea Psychiatric: Denies: depression Skin: Denies: rash Musculoskeletal: Denies: pain Allergies: Coded Allergies: No Known Allergies (Unverified , 04/11/20) Objective Last 24 Hour Vital Signs Date Time Temp Pulse Resp B/P (MAP) Pulse Ox O2 Delivery O2 Flow Rate FiO2 04/30/20 09:00 Room Air 04/30/20 08:00 98.2 92 18 138/89 (105) 97 04/30/20 04:00 98.1 104 18 133/82 (99) 95 04/30/20 00:00 98.1 102 18 115/76 (89) 94 04/29/20 21:00 Room Air 04/29/20 20:00 97.9 97 17 104/74 (84) 93 04/29/20 16:00 98.2 97 18 105/83 (90) 99 04/29/20 12:00 98.4 99 18 139/90 (106) 96 04/29/20 11:16 98.4 Intake and Output 04/29/20 04/30/20 18:59 06:59 Intake Total 780 ml 118 ml Output Total 900 ml 1100 ml Balance -120 ml -982 ml Intake Oral 480 ml IV Total 300 ml Other 118 ml Output Urine Total 900 ml 1100 ml General Appearance: WD/WN, no acute distress HEENT: normocephalic, atraumatic Respiratory: lungs clear Cardiovascular: normal rate, regular rhythm Abdomen: soft, non tender Genitourinary: other - Morales Extremities: no edema Laboratory Tests 04/29/20 10:10: White Blood Count 4.9, Red Blood Count 3.63L, Hemoglobin 9.8L, Hematocrit 29.7L, Mean Corpuscular Volume 82, Mean Corpuscular Hemoglobin 27.0, Mean Corpuscular Hemoglobin Concent 33.0, Red Cell Distribution Width 18.4H, Platelet Count 310, Mean Platelet Volume 5.7L, Neutrophils (%) (Auto) 73.3, Lymphocytes (%) (Auto) 16.1L, Monocytes (%) (Auto) 6.2, Eosinophils (%) (Auto) 2.9, Basophils (%) (Auto) 1.6, Sodium Level 144, Potassium Level 3.2L, Chloride Level 108H, Carbon Dioxide Level 23, Anion Gap 13, Blood Urea Nitrogen 6L, Creatinine 0.8, Estimat Glomerular Filtration Rate > 60, Glucose Level 70L, Calcium Level 7.0L, Phosphorus Level 3.9, Magnesium Level 0.6*L Current Medications Medications (Trade) Dose Ordered Sig/Angelika Route PRN Reason Start Time Stop Time Status Last Admin Dose Admin Acetaminophen (Tylenol) 650 mg Q6H PRN ORAL Mild Pain (Pain Scale 1-3) 04/12/20 02:45 05/12/20 02:44 04/27/20 16:23 Acetaminophen (Tylenol) 650 mg Q6H PRN ORAL FEVER 04/12/20 16:30 05/12/20 16:29 04/27/20 00:38 Acetaminophen/ Hydrocodone Bitart ([place] 10/325) 1 tab Q6H PRN ORAL severe pain 04/28/20 16:17 05/05/20 16:16 04/29/20 10:46 Acetaminophen/ Hydrocodone Bitart ([place] 5/325) 1 tab Q6H PRN ORAL moderate pain 04/28/20 16:17 05/05/20 16:16 Allopurinol (allopurinoL) 300 mg DAILY ORAL 04/12/20 09:00 05/12/20 08:59 04/30/20 09:09 Ascorbic Acid (Vitamin C) 500 mg DAILY ORAL 04/26/20 09:00 05/26/20 08:59 04/30/20 09:09 Baclofen (Lioresal) 10 mg THREE TIMES A DAY ORAL 04/12/20 09:00 05/12/20 08:59 04/30/20 09:09 Chlorhexidine Gluconate (Christy-Hex 2%) 1 applic Q24H TOPIC 04/25/20 20:00 07/24/20 19:59 04/25/20 20:20 Docusate Sodium (Colace) 100 mg TWICE A DAY ORAL 04/27/20 09:00 05/20/20 08:59 04/30/20 09:09 Dronabinol (Marinol) 2.5 mg BID ORAL 04/27/20 09:00 07/24/20 17:59 04/30/20 09:09 Heparin Sodium (Porcine) (Heparin 5000 units/ml) 5,000 units EVERY 8 HOURS SUBQ 04/24/20 22:00 06/08/20 21:59 Lactulose (Cephulac) 20 gm THREE TIMES A DAY ORAL 04/21/20 13:00 05/21/20 12:59 04/30/20 09:09 Linaclotide (Linzess) 290 mcg BEFORE BREAKFAST ORAL 04/26/20 06:30 07/25/20 06:29 04/30/20 06:50 Morphine Sulfate (Morphine Sulfate) 2 mg Q3H PRN IVP Severe Pain (Pain Scale 7-10) 04/28/20 16:17 05/05/20 16:16 04/30/20 06:50 Morphine Sulfate (Morphine Sulfate) 4 mg Q3H PRN IVP SEVERE BREAKTHRU PAIN 04/28/20 16:18 05/05/20 16:17 Multivitamins (Multivitamins) 1 tab DAILY ORAL 04/26/20 09:00 05/26/20 08:59 04/30/20 09:09 Ondansetron HCl (Zofran) 4 mg Q6H PRN IVP Nausea & Vomiting 04/19/20 13:30 05/19/20 13:29 04/29/20 18:17 Polyethylene Glycol (Miralax) 17 gm DAILY ORAL 04/20/20 09:00 05/20/20 08:59 04/30/20 09:09 Sodium Chloride 1,000 ml @ 50 mls/hr Q20H IV 04/26/20 20:15 05/26/20 20:14 04/30/20 04:25 Assessment/Plan Assessment/Plan Assessment/Plan 1. COVID-19 positivity. - COVID-19 PCR 04/21 positive: cont isolation - no indication for steroid or remdesivir given her normoxemia at this time - s/p cefepime - CXR with diffuse non-specific inflammatory/infectious process - cont supplemental oxygen as needed/ 2L/ N/C Sat 97% - CT A/P/C - no obvious pna or abscess, cultures negative 2. Immunocompromised state with history of non-Hodgkin lymphoma. - on chemo - h/o port line infection; s/p Vanco - to return to [facility] for further Tx per heme 3. Fever - urine culture, blood culture pending per nephro 4. Hx of Hypertension. 5. Gout. 6. Anemia - s/p pRBC DVT ppx - on SCD - pt refusing heparin Low TSH; improving - Dr. Fermin following - no need for levothyroxine per Dr. 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 May 07, 2020 13:25
--- NOTE | 2020-04-30 10:52 | General Progress Note ---
Subjective ROS Limited/Unobtainable: No Allergies: Coded Allergies: No Known Allergies (Unverified , 04/11/20) Objective Last 24 Hour Vital Signs Date Time Temp Pulse Resp B/P (MAP) Pulse Ox O2 Delivery O2 Flow Rate FiO2 04/30/20 09:00 Room Air 04/30/20 08:00 98.2 92 18 138/89 (105) 97 04/30/20 04:00 98.1 104 18 133/82 (99) 95 04/30/20 00:00 98.1 102 18 115/76 (89) 94 04/29/20 21:00 Room Air 04/29/20 20:00 97.9 97 17 104/74 (84) 93 04/29/20 16:00 98.2 97 18 105/83 (90) 99 04/29/20 12:00 98.4 99 18 139/90 (106) 96 04/29/20 11:16 98.4 Intake and Output 04/29/20 04/30/20 18:59 06:59 Intake Total 780 ml 118 ml Output Total 900 ml 1100 ml Balance -120 ml -982 ml Intake Oral 480 ml IV Total 300 ml Other 118 ml Output Urine Total 900 ml 1100 ml Height (Feet): 5 Height (Inches): 7.00 Weight (Pounds): 150 General Appearance: no apparent distress EENT: normal ENT inspection Neck: supple Cardiovascular: normal rate Respiratory/Chest: decreased breath sounds Abdomen: normal bowel sounds, non tender, soft Extremities: non-tender Assessment/Plan Status: stable Assessment/Plan: iron def anemia mild elevated CEA lymphoma on chemo covid positive neg stool ob iv iron fu H&H needs out patient fu for colonoscopy fu oncology CT reviewed colace miralax lactulose tammy coleman c Patrick Carter MD Apr 30, 2020 10:52
[2020-04-30] MEDS ORDERED: Calcium Gluconate 1gm/50ml 50 ML IVPB SCH (11:00)
[2020-04-30 11:33] LABS: BASOPHILS % (AUTO) 1.7 % (0.0-2.0); EOSINOPHILS % (AUTO) 1.9 % (0.0-3.0); HEMATOCRIT 30.7 % (37.0-47.0); HEMOGLOBIN 10.3 G/DL (12.0-16.0); LYMPHOCYTES % (AUTO) 13.2 % (20.0-45.0); MEAN CORPUSCULAR VOLUME 80 FL (80-99); MONOCYTES % (AUTO) 5.3 % (1.0-10.0); NEUTROPHILS % (AUTO) 77.9 % (45.0-75.0); PLATELET COUNT 299 K/UL (150-450); RED BLOOD COUNT 3.82 M/UL (4.20-5.40); RED CELL DISTRIBUTION WIDTH 19.8 % (11.6-14.8); WHITE BLOOD COUNT 4.7 K/UL (4.8-10.8)
[2020-04-30 11:58] LABS: ANION GAP 15 mmol/L (5-15); BLOOD UREA NITROGEN 4 mg/dL (7-18); CALCIUM 7.7 MG/DL (8.5-10.1); CARBON DIOXIDE 23 MMOL/L (21-32); CHLORIDE 107 MMOL/L (98-107); CREATININE 0.5 MG/DL (0.55-1.30); POTASSIUM 4.5 MMOL/L (3.5-5.1); SODIUM 144 MMOL/L (136-145)
[2020-04-30 12:00] VITALS: BP 144/88
[2020-04-30] MEDS: Magnesium Oxide 400mg tab ORAL SCH ×2 (13:41→17:33)
[2020-04-30] MEDS ORDERED: NS 500ML ONE (15:40)
[2020-04-30] MEDS ORDERED: Tubing IV Secondary IV ONE (15:40)
[2020-04-30 16:00] VITALS: BP 150/87
--- NOTE | 2020-04-30 18:37 | General Progress Note ---
Subjective Date patient seen: Apr 30, 2020 ROS Limited/Unobtainable: No Allergies: Coded Allergies: No Known Allergies (Unverified , 04/11/20) Subjective Mg level still very low despite repletion yesterday. Starting standing MgOx supplementation. Overall patient still doing well. Denies cough, SOB. No fevers. No other complaints. Review of systems: Constitutional: Denies: chills, diaphoresis, malaise, weakness, fever HEENT: Denies: eye pain, blurred vision, double vision, ear pain, nose pain, throat pain, Cardiovascular: Denies: chest pain, edema, lightheadedness, palpitations Respiratory: SEe HPI Gastrointestinal/Abdominal: Denies: abdominal pain, black stools, blood in stool, constipation, diarrhea, nausea, poor fluid intake vomiting, other Genitourinary: Denies: burning, discharge, frequency, Neurologic/Psychiatric: Denies: headache, numbness, paresthesia, new weakness, other Endocrine: Denies: excessive sweating, flushing, intolerance to cold, MSK: denies joint pains, swelling, stiffness, back pain Hematologic/Lymphatic: Denies: anemia, easy bleeding, easy bruising, Objective Last 24 Hour Vital Signs Date Time Temp Pulse Resp B/P (MAP) Pulse Ox O2 Delivery O2 Flow Rate FiO2 04/30/20 17:15 98.6 04/30/20 16:00 97.7 90 18 150/87 (108) 94 04/30/20 12:13 98.6 04/30/20 12:00 98.6 86 18 144/88 (106) 98 04/30/20 09:00 Room Air 04/30/20 08:00 98.2 92 18 138/89 (105) 97 04/30/20 04:00 98.1 104 18 133/82 (99) 95 04/30/20 00:00 98.1 102 18 115/76 (89) 94 04/29/20 21:00 Room Air 04/29/20 20:00 97.9 97 17 104/74 (84) 93 Intake and Output 04/29/20 04/30/20 19:00 07:00 Intake Total 780 ml 118 ml Output Total 900 ml 1100 ml Balance -120 ml -982 ml Intake Oral 480 ml IV Total 300 ml Other 118 ml Output Urine Total 900 ml 1100 ml Laboratory Tests 04/30/20 10:52: White Blood Count 4.7L, Red Blood Count 3.82L, Hemoglobin 10.3L, Hematocrit 30.7L, Mean Corpuscular Volume 80, Mean Corpuscular Hemoglobin 26.8L, Mean Corpuscular Hemoglobin Concent 33.4, Red Cell Distribution Width 19.8H, Platelet Count 299, Mean Platelet Volume 6.0L, Neutrophils (%) (Auto) 77.9H, Lymphocytes (%) (Auto) 13.2L, Monocytes (%) (Auto) 5.3, Eosinophils (%) (Auto) 1.9, Basophils (%) (Auto) 1.7, Sodium Level 144, Potassium Level 4.5, Chloride Level 107, Carbon Dioxide Level 23, Anion Gap 15, Blood Urea Nitrogen 4L, Creatinine 0.5L, Estimat Glomerular Filtration Rate > 60, Glucose Level 79, Calcium Level 7.7L, Phosphorus Level 3.2, Magnesium Level 1.3L Height (Feet): 5 Height (Inches): 7.00 Weight (Pounds): 150 Objective General: WDWN female in NAD, A&O x 4, pleasant, conversant HEENT: Normocephalic cephalic atraumatic, pupils equal round reactive to light and accommodation, nares patent and no symmetrical, no tonsillar exudates, mucous membranes slighly dry CV: Regular rate regular rhythm, no murmurs, rubs, or gallops Pulm: Lungs clear to auscultation bilaterally. No wheezes, rhonchi, or rales GI: Soft, nontender, nondistended, bowel sounds present + eaton in place, no suprapubic TTP Neuro: CN 2-12 intact bilaterally, no focal signs. Moving all extremities Ext: No lower extremity edema bilaterally Skin: no rashes lesions or ulcers Msk: Joints symmetrical in upper extremity and lower extremity bilaterally, no joint swelling. Lymph: No lymphadenopathy in upper extremity and lower extremity Assessment/Plan Status: stable Assessment/Plan: #Hx of Sepsis 2' port infection #Sepsis due to COVID 19 pneumonia (febrile, tachycardic) #COVID 19+ #Continued fever of unknown origin. COVID vs. cancer related? - Afebrile past 72 hours - CTM Fever curve. Could be due to underlying malignancy - f/u Blood/Urine cultures 04/26 for new FFWU - Prior Blood cultures NGTD - Repeat UA: negative - Repeat CXR: Bronchial thickening - CT C/A/P including CT angio to eval for PE. : reviewed. No PE. No obvious infection. Incidental left hip fracture - IV fluids as needed - D/W ID. - Port has been removed at OSH - , - ngtd - Cefepime (04/14 - 04/15) - Per patient she is to continue on Vancomycin till 04/25 - D/c vanc - ID Consult, appreciate recs - MRI C/T/L spine w/wo contrast to eval for abscess: No sign of infection, abscess or osteo #L3 lesion on MRI: bone infarct vs. osteoid osteoma vs. less likely infection #Chronic LE weakness #s/p Laminectomy earlier in the year #Chronic Back pain > d/w radiology Dr. Hedrick - d/w ID, Neuro - outpatient f/u with spine surgeon: Dr. Nino in [facility] - appreciate neurology consult: Dr. Bajwa - PT when able - [place] 5/10 Q6hr PRN moderate to severe and IV Morphine for BTP #JIM, pre-renal vs. due to vanc toxicity - Resolved #Hypokalemia #Hypomagnesemia > Vanc level 35 - urine lytes - MgOx oral supplementation - Nephrology on board: D/w Dr. hatch - Fluids per nephro #Hypothyroidism, suspect central given TSH and T4 both low - endocrinology consulted: Dr. Fermin to see - FSHpending. #left hip fracture, suspect chronic > Patient states she fell 5 months ago but no recent falls. Also had hard fall on coccyx in 2018. Minimal pain in left hip > Patient states she has not walked for months but is not paraplegic. Severe debilitation. - appreciate ortho eval: Dr. Payan. Given patient bed bound risks > benefits. 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 History of lymphoma per patient and is receiving chemo tx, last known to be February 2020. - 2U PRBCs ordered and transfused on admission - 1 u PRBC given 04/26 - Hb Stable - Rectic count wnl, Iron and Iron sat low, Ferritin wnl - No active signs of bleeding - Hematology consulted, appreciate recs - CTM for signs of bleeding - Patient will need colonoscopy as outpatient in the future : Gi Consulted; Dr. Carter #sinus tachycardia, due to COVID pna - monitor EKG - Cardiology consulted: Dr. Wan #proctitis #Constipation- > improving - Aggressive bowel regimen - GI aware: Appreciate recommendations - Colace, miralax, - s/p enema and ducolax with improvement #chronic urinary retention - since patient had spine surgery earlier in the year - unsure if has true urinary retention - d/w nephrology -> voiding trial, however patient refused. #Hypokalemia #hypomagnesia - Lytes replaced - appreciate nephro management FENPPX DVTPPX: per primary. Consider changing to HSQ if Cr does not imrp Fluids: per nephro Diet: regular Lines: PIV PT/OT: pending Code status:Full Dispo: back to SNF Reason for Continued Hospitalization: monitoring fever curve, potential discharge to SNF tomorrow. Dispo - Discharge back to SNF once electrolytes improve, likely tomorrow MIPS ([employer]-based Incentive Payment System) Applicable CPT: 42937, 80901 CHECK ALL THAT ARE MET: [] Measure #5 (CHF): All ages. Prescribe LINDSAY/ARB upon discharge for patients with left ventricular systolic dysfunction. If not, the reason is clearly documented in the medical chart [] Measure #8 (CHF): All ages. Prescribe a beta domenico upon discharge for patients with left ventricular systolic dysfunction. If not, the reason is clearly documented in the medical chart. [x] Measure #47: Advance care plan or surrogate decision maker documented in the medical record. [x] Measure #130 The provider has documented, updated, or reviewed the patients current medication list and has documented it in the patients note. [] Measure #374 (All): Send report to referring provider. [] Measure #407(Sepsis due to MSSA bacteremia): Age 18+ Patient treated with a beta-lactam antibiotic (Nafcillin, Oxacillin or Cefazolin) as definitive therapy. MEDICAL COMPLEXITYHigh complexity medical decision making (need 2/3 categories)Problem - need 4 points [x]Acute/new problem with new plan for workup (4 points, 1 max) [] Acute/new problem without additional workup (3 points, 1 max) [] Unstable chronic problem actively being managed (2 point each, 2 max) [x] Stable chronic problem actively being managed (1 point each, 2 max) [x] Self-limited/transient process (constipation, muscle ache, etc) (1 point each, 2 max) Data - need 4 points [x] Reviewed labs/imaging studies (1 points, 2 max) [x] Independent review of imaging (EKG, xrays, etc) (2 points, 2 max) [x] Discussed case with consult/other MD/RN (2 points, 2 max) High Risk - qualify if have one of the following: [x] Severe exacerbation of acute problem, acute mental status change, IV narcotics, monitoring drug levels (vancomycin, INR, tacrolimus etc) I spent 36 minutes on this patient's case, and 23 mins was dedicated to counseling and/or care coordination. Discussed with nephrology, ID, RN at bedside. Time of note may not reflect time of encounter Albin Barker M.D. Apr 30, 2020 18:37
--- NOTE | 2020-04-30 19:18 | NUR ---
NURSE HAND-OFF: Important Events on Shift:[safety and comfort, pain management, IV fluids, monitoring magnesium] Patient Status: [stable] Diet: [regular] Pending Orders: [] Pending Results/Labs:[] Pending MD notification:[] Latest Vital Signs: Temperature 98.6 , Pulse 90 , B/P 150 /87 , Respiratory Rate 18 , O2 SAT 94 , Nasal Cannula, O2 Flow Rate 1.0 . Vital Sign Comment: [] Latest [place] Fall Score: 55 Fall Risk: High Risk Safety Measures: Call light Within Reach, Bed Alarm Zone 1, Side Rails Side Rails x3, Bed position Low and Locked. Fall Precautions: Door Sign Patient Fall Education Report given to [Cary, RN].
[2020-04-30 20:00] VITALS: BP 142/87
--- NOTE | 2020-04-30 20:22 | Neurology Progress Note ---
Interim History Interim History ROS Limited/Unobtainable: No Interim History no new deficits, dc planning Objective Physical Exam Last Vital Signs Date Time Temp Pulse Resp B/P (MAP) Pulse Ox O2 Delivery O2 Flow Rate FiO2 04/30/20 17:15 98.6 04/30/20 16:00 90 18 150/87 (108) 94 04/30/20 09:00 Room Air 04/29/20 08:21 21 04/27/20 20:19 1.0 Laboratory Tests Test 04/30/20 10:52 White Blood Count 4.7 K/UL (4.8-10.8) L Red Blood Count 3.82 M/UL (4.20-5.40) L Hemoglobin 10.3 G/DL (12.0-16.0) L Hematocrit 30.7 % (37.0-47.0) L Mean Corpuscular Volume 80 FL (80-99) Mean Corpuscular Hemoglobin 26.8 PG (27.0-31.0) L Mean Corpuscular Hemoglobin Concent 33.4 G/DL (32.0-36.0) Red Cell Distribution Width 19.8 % (11.6-14.8) H Platelet Count 299 K/UL (150-450) Mean Platelet Volume 6.0 FL (6.5-10.1) L Neutrophils (%) (Auto) 77.9 % (45.0-75.0) H Lymphocytes (%) (Auto) 13.2 % (20.0-45.0) L Monocytes (%) (Auto) 5.3 % (1.0-10.0) Eosinophils (%) (Auto) 1.9 % (0.0-3.0) Basophils (%) (Auto) 1.7 % (0.0-2.0) Sodium Level 144 MMOL/L (136-145) Potassium Level 4.5 MMOL/L (3.5-5.1) Chloride Level 107 MMOL/L (98-107) Carbon Dioxide Level 23 MMOL/L (21-32) Anion Gap 15 mmol/L (5-15) Blood Urea Nitrogen 4 mg/dL (7-18) L Creatinine 0.5 MG/DL (0.55-1.30) L Estimat Glomerular Filtration Rate > 60 mL/min (>60) Glucose Level 79 MG/DL (74-106) Calcium Level 7.7 MG/DL (8.5-10.1) L Phosphorus Level 3.2 MG/DL (2.5-4.9) Magnesium Level 1.3 MG/DL (1.8-2.4) L Impression/Recommendations Problems: (1) Anemia Status: stable Diagnostic Impression Chronic weakness, LE worse than UEs MRI spine noted, osteoma wo spine compression slplaminectomy COVID 19 pneumonia (febrile, tachycardic) Hx of Lymphoma cont medical support pain control PT as able Renny Bajwa MD Apr 30, 2020 20:22
[2020-04-30] MEDS: Dyna-Hex 2% Top Sol 2oz TOPIC SCH (20:46)
[2020-05-01] VITALS: BP 142/88
[2020-05-01] MEDS: Morphine Sulfate 2mg/ml Inj(IV/IM USE ONLY) IVP PRN ×5 (02:34→21:08)
[2020-05-01 04:00] VITALS: BP 132/89
[2020-05-01] MEDS: Heparin 5000 units/ml inj SUBQ SCH ×3 (05:38→21:08)
--- NOTE | 2020-05-01 06:50 | Hematology/Onc Progress Note ---
Assessment/Plan Assessment/Plan # Leukopenia COVID19++++++++++ --> hep and hiv order as needed --> wbc 4-->3-->2.9->2->4.6--4.1-->3.6-->4.7 --> Neupogen 300 x1 04/21 --> isolation if anc<500 # Non-Hodgkins Lymphoma is s/p chemotherapy in the past --> to return to [facility] for further treatment --> likely for ct/pet as outpatient --> CT Here shows no e/o disease --> imaging has been reviewed thus far --> end date of 04/2020 # Anemia likely of chronic disease -- does not appear to have iron deficiency --> transfuse as needed, tibc and ferritin are cw acd --> hgb 7.8-->8.6-->8.5-->8.4->7.6-->10 --> no hemolysis is noted --> s/p transfusion on admission # Covid 19++ with SIRS (febrile, tachycardic) --> per pulm and id --> CXR with diffuse non-specific inflammatory/infectious process --> s/p Cefepime (04/14 - 04/15) # Hypokalemia # Hypomagnesia # Chronic Back pain # Full Code Appreciate consultation and dw Rn Subjective Constitutional: Denies: no symptoms, chills, fever, malaise, weakness, other Cardiovascular: Denies: no symptoms, chest pain, edema, irregular heart rate, lightheadedness, palpitations, syncope, other Respiratory: Denies: no symptoms, cough, shortness of breath, SOB with excertion, SOB at rest, sputum, wheezing, other Gastrointestinal/Abdominal: Denies: no symptoms, abdomen distended, abdominal pain, black stools, tarry stools, blood in stool, constipated, diarrhea, difficulty swallowing, nausea, poor appetite, poor fluid intake, rectal bleeding, vomiting, other Genitourinary: Denies: no symptoms, burning, discharge, frequency, flank pain, hematuria, incontinence, pain, urgency, other Neurologic/Psychiatric: Denies: no symptoms, anxiety, depressed, emotional problems, headache, numbness, paresthesia, pre-existing deficit, seizure, tingling, tremors, weakness, other Allergies: Coded Allergies: No Known Allergies (Unverified , 04/11/20) Subjective 04/17 is on room air, more comfortable, potential dc to snf 04/18 labs reviewed, no bleeding, meds noted, no night sweats 04/19 sleeping comfortably, no major events, no night sweats 04/20 meds noted, labs reviewed, wbc 2.9, hep and hiv is neg 04/21 labs reviewed, in am, the wbc was 2, to get neupogen x 1 dose now 04/23 labs noted, no bleeding, wbc 4, hgb remains low, but holding off trans 04/24 labs are pending for am, meds reviewed, no bleeding 04/25 meds reviewed, labs noted, no night sweats, dw rn at bedside, no new events 04/26 labs reviewed, meds noted, no bleeding, wbc 3, hgb 7.6 04/27 dw rn at bedside, labs are noted, no bleeding, refusing heparin now sq 04/28 labs have been reviewed, is on room air, no bleeding, tachy 04/30 labs pending, no night sweats, meds reviewed, tachy, no night sweats, wants iv iron 05/01 dc planning, meds noted, for labs this am, no new events Objective Objective Current Medications Medications (Trade) Dose Ordered Sig/Angelika Route PRN Reason Start Time Stop Time Status Last Admin Dose Admin Acetaminophen (Tylenol) 650 mg Q6H PRN ORAL Mild Pain (Pain Scale 1-3) 04/12/20 02:45 05/12/20 02:44 04/27/20 16:23 Acetaminophen (Tylenol) 650 mg Q6H PRN ORAL FEVER 04/12/20 16:30 05/12/20 16:29 04/27/20 00:38 Acetaminophen/ Hydrocodone Bitart ([place] 10/325) 1 tab Q6H PRN ORAL severe pain 04/28/20 16:17 05/05/20 16:16 04/29/20 10:46 Acetaminophen/ Hydrocodone Bitart ([place] 5/325) 1 tab Q6H PRN ORAL moderate pain 04/28/20 16:17 05/05/20 16:16 Allopurinol (allopurinoL) 300 mg DAILY ORAL 04/12/20 09:00 05/12/20 08:59 04/30/20 09:09 Ascorbic Acid (Vitamin C) 500 mg DAILY ORAL 04/26/20 09:00 05/26/20 08:59 04/30/20 09:09 Baclofen (Lioresal) 10 mg THREE TIMES A DAY ORAL 04/12/20 09:00 05/12/20 08:59 04/30/20 13:41 Chlorhexidine Gluconate (Christy-Hex 2%) 1 applic Q24H TOPIC 04/25/20 20:00 07/24/20 19:59 04/30/20 20:46 Docusate Sodium (Colace) 100 mg TWICE A DAY ORAL 04/27/20 09:00 05/20/20 08:59 04/30/20 17:33 Dronabinol (Marinol) 2.5 mg BID ORAL 04/27/20 09:00 07/24/20 17:59 04/30/20 17:33 Heparin Sodium (Porcine) (Heparin 5000 units/ml) 5,000 units EVERY 8 HOURS SUBQ 04/24/20 22:00 06/08/20 21:59 Lactulose (Cephulac) 20 gm THREE TIMES A DAY ORAL 04/21/20 13:00 05/21/20 12:59 04/30/20 09:09 Linaclotide (Linzess) 290 mcg BEFORE BREAKFAST ORAL 04/26/20 06:30 07/25/20 06:29 05/01/20 05:46 Magnesium Oxide (Mag-Ox 400mg) 400 mg THREE TIMES A DAY ORAL 04/30/20 13:00 05/30/20 12:59 04/30/20 17:33 Morphine Sulfate (Morphine Sulfate) 2 mg Q3H PRN IVP Severe Pain (Pain Scale 7-10) 04/28/20 16:17 05/05/20 16:16 05/01/20 05:47 Morphine Sulfate (Morphine Sulfate) 4 mg Q3H PRN IVP SEVERE BREAKTHRU PAIN 04/28/20 16:18 05/05/20 16:17 Multivitamins (Multivitamins) 1 tab DAILY ORAL 04/26/20 09:00 05/26/20 08:59 04/30/20 09:09 Ondansetron HCl (Zofran) 4 mg Q6H PRN IVP Nausea & Vomiting 12/16/20 13:30 05/19/20 13:29 04/29/20 18:17 Polyethylene Glycol (Miralax) 17 gm DAILY ORAL 04/20/20 09:00 05/20/20 08:59 04/30/20 09:09 Last 24 Hour Vital Signs Date Time Temp Pulse Resp B/P (MAP) Pulse Ox O2 Delivery O2 Flow Rate FiO2 05/01/20 04:00 98.2 104 20 132/89 (103) 94 05/01/20 00:00 99.1 101 20 142/88 (106) 94 04/30/20 21:00 Room Air 04/30/20 20:00 99.0 101 20 142/87 (105) 99 04/30/20 17:15 98.6 04/30/20 16:00 97.7 90 18 150/87 (108) 94 04/30/20 12:13 98.6 04/30/20 12:00 98.6 86 18 144/88 (106) 98 04/30/20 09:00 Room Air 04/30/20 08:00 98.2 92 18 138/89 (105) 97 04/30/20 04:00 98.1 104 18 133/82 (99) 95 04/30/20 00:00 98.1 102 18 115/76 (89) 94 04/29/20 21:00 Room Air 04/29/20 20:00 97.9 97 17 104/74 (84) 93 04/29/20 16:00 98.2 97 18 105/83 (90) 99 04/29/20 12:00 98.4 99 18 139/90 (106) 96 04/29/20 11:16 98.4 04/29/20 09:00 Room Air 04/29/20 08:21 94 Room Air 21 04/29/20 08:00 98.4 110 18 139/92 (108) 96 Intake and Output 04/30/20 05/01/20 19:00 07:00 Intake Total 1120 ml Output Total 1800 ml Balance -680 ml Intake Oral 520 ml Other 600 ml Output Urine Total 1800 ml Labs Test 04/29/20 10:10 04/30/20 10:52 White Blood Count 4.9 K/UL (4.8-10.8) 4.7 K/UL (4.8-10.8) Red Blood Count 3.63 M/UL (4.20-5.40) 3.82 M/UL (4.20-5.40) Hemoglobin 9.8 G/DL (12.0-16.0) 10.3 G/DL (12.0-16.0) Hematocrit 29.7 % (37.0-47.0) 30.7 % (37.0-47.0) Mean Corpuscular Volume 82 FL (80-99) 80 FL (80-99) Mean Corpuscular Hemoglobin 27.0 PG (27.0-31.0) 26.8 PG (27.0-31.0) Mean Corpuscular Hemoglobin Concent 33.0 G/DL (32.0-36.0) 33.4 G/DL (32.0-36.0) Red Cell Distribution Width 18.4 % (11.6-14.8) 19.8 % (11.6-14.8) Platelet Count 310 K/UL (150-450) 299 K/UL (150-450) Mean Platelet Volume 5.7 FL (6.5-10.1) 6.0 FL (6.5-10.1) Neutrophils (%) (Auto) 73.3 % (45.0-75.0) 77.9 % (45.0-75.0) Lymphocytes (%) (Auto) 16.1 % (20.0-45.0) 13.2 % (20.0-45.0) Monocytes (%) (Auto) 6.2 % (1.0-10.0) 5.3 % (1.0-10.0) Eosinophils (%) (Auto) 2.9 % (0.0-3.0) 1.9 % (0.0-3.0) Basophils (%) (Auto) 1.6 % (0.0-2.0) 1.7 % (0.0-2.0) Sodium Level 144 MMOL/L (136-145) 144 MMOL/L (136-145) Potassium Level 3.2 MMOL/L (3.5-5.1) 4.5 MMOL/L (3.5-5.1) Chloride Level 108 MMOL/L (98-107) 107 MMOL/L (98-107) Carbon Dioxide Level 23 MMOL/L (21-32) 23 MMOL/L (21-32) Anion Gap 13 mmol/L (5-15) 15 mmol/L (5-15) Blood Urea Nitrogen 6 mg/dL (7-18) 4 mg/dL (7-18) Creatinine 0.8 MG/DL (0.55-1.30) 0.5 MG/DL (0.55-1.30) Estimat Glomerular Filtration Rate > 60 mL/min (>60) > 60 mL/min (>60) Glucose Level 70 MG/DL (74-106) 79 MG/DL (74-106) Calcium Level 7.0 MG/DL (8.5-10.1) 7.7 MG/DL (8.5-10.1) Phosphorus Level 3.9 MG/DL (2.5-4.9) 3.2 MG/DL (2.5-4.9) Magnesium Level 0.6 MG/DL (1.8-2.4) 1.3 MG/DL (1.8-2.4) Height (Feet): 5 Height (Inches): 7.00 Weight (Pounds): 150 Objective Gen: nad Pulm: ctab, no cwr CV: rrr Abd: soft, nt Ext: no cce Martinez Hill MD May 01, 2020 06:50
--- NOTE | 2020-05-01 07:51 | NUR ---
NURSE HAND-OFF: Important Events on Shift: No acute events or injuries observed during shift. Pain management with morphine 2mg. EKG done last night per patient c/o chest pain, Dr. Wan aware. Patient Status: Stable Diet: Regular Pending Orders: N/A Pending Results/Labs: N/A Pending MD notification: N/A Latest Vital Signs: Temperature 98.2 , Pulse 104 , B/P 132 /89 , Respiratory Rate 20 , O2 SAT 94 , Nasal Cannula, O2 Flow Rate 1.0 . Vital Sign Comment: Stable Latest [place] Fall Score: 55 Fall Risk: High Risk Safety Measures: Call light Within Reach, Bed Alarm Zone 1, Side Rails Side Rails x3, Bed position Low and Locked. Fall Precautions: Door Sign Patient Fall Education Report given to REA Bell.
[2020-05-01 08:00] VITALS: BP 130/85
--- NOTE | 2020-05-01 08:13 | General Progress Note ---
Subjective ROS Limited/Unobtainable: No Allergies: Coded Allergies: No Known Allergies (Unverified , 04/11/20) Objective Last 24 Hour Vital Signs Date Time Temp Pulse Resp B/P (MAP) Pulse Ox O2 Delivery O2 Flow Rate FiO2 05/01/20 04:00 98.2 104 20 132/89 (103) 94 05/01/20 00:00 99.1 101 20 142/88 (106) 94 04/30/20 21:00 Room Air 04/30/20 20:00 99.0 101 20 142/87 (105) 99 04/30/20 17:15 98.6 04/30/20 16:00 97.7 90 18 150/87 (108) 94 04/30/20 12:13 98.6 04/30/20 12:00 98.6 86 18 144/88 (106) 98 04/30/20 09:00 Room Air Intake and Output 04/30/20 05/01/20 19:00 07:00 Intake Total 1120 ml 360 ml Output Total 1800 ml 800 ml Balance -680 ml -440 ml Intake Oral 520 ml Other 600 ml 360 ml Output Urine Total 1800 ml 800 ml Laboratory Tests 04/30/20 10:52: White Blood Count 4.7L, Red Blood Count 3.82L, Hemoglobin 10.3L, Hematocrit 30.7L, Mean Corpuscular Volume 80, Mean Corpuscular Hemoglobin 26.8L, Mean Corpuscular Hemoglobin Concent 33.4, Red Cell Distribution Width 19.8H, Platelet Count 299, Mean Platelet Volume 6.0L, Neutrophils (%) (Auto) 77.9H, Lymphocytes (%) (Auto) 13.2L, Monocytes (%) (Auto) 5.3, Eosinophils (%) (Auto) 1.9, Basophils (%) (Auto) 1.7, Sodium Level 144, Potassium Level 4.5, Chloride Level 107, Carbon Dioxide Level 23, Anion Gap 15, Blood Urea Nitrogen 4L, Creatinine 0.5L, Estimat Glomerular Filtration Rate > 60, Glucose Level 79, Calcium Level 7.7L, Phosphorus Level 3.2, Magnesium Level 1.3L Height (Feet): 5 Height (Inches): 7.00 Weight (Pounds): 150 General Appearance: no apparent distress EENT: normal ENT inspection Neck: supple Cardiovascular: normal rate Respiratory/Chest: decreased breath sounds Abdomen: normal bowel sounds, non tender, soft Extremities: non-tender Assessment/Plan Status: stable Assessment/Plan: iron def anemia mild elevated CEA lymphoma on chemo covid positive neg stool ob iv iron fu H&H needs out patient fu for colonoscopy fu oncology CT reviewed colace miralax lactulose tammy LOPEZ vit c Patrick Carter MD May 01, 2020 08:13
[2020-05-01] MEDS: Miralax 17gm pkt ORAL SCH (08:25)
[2020-05-01] MEDS: Dronabinol 2.5mg Cap ORAL SCH ×2 (08:25→17:33)
[2020-05-01] MEDS: Magnesium Oxide 400mg tab ORAL SCH ×3 (08:25→17:33)
[2020-05-01] MEDS: Ascorbic Acid 500mg tab ORAL SCH (08:26)
[2020-05-01] MEDS: Lactulose 20gm/30ml UDC ORAL SCH ×3 (08:35→17:34)
[2020-05-01] MEDS: Docusate 100mg cap ORAL SCH ×2 (08:36→17:33)
[2020-05-01 08:59] LABS: EOSINOPHILS % (AUTO) 2.6 % (0.0-3.0); HEMATOCRIT 29.4 % (37.0-47.0); HEMOGLOBIN 9.7 G/DL (12.0-16.0); LYMPHOCYTES % (AUTO) 16.1 % (20.0-45.0); MEAN CORPUSCULAR VOLUME 82 FL (80-99); MONOCYTES % (AUTO) 6.7 % (1.0-10.0); NEUTROPHILS % (AUTO) 73.6 % (45.0-75.0); PLATELET COUNT 300 K/UL (150-450); RED CELL DISTRIBUTION WIDTH 18.1 % (11.6-14.8); WHITE BLOOD COUNT 4.9 K/UL (4.8-10.8)
--- NOTE | 2020-05-01 09:12 | Pulmonology Progress Note ---
Subjective ROS Limited/Unobtainable: No Interval Events: None new Constitutional: Reports: fatigue HEENT: Repors: no symptoms Respiratory: Reports: no symptoms, dry cough Cardiovascular: Reports: no symptoms Gastrointestinal/Abdominal: Denies: nausea, vomiting, diarrhea Psychiatric: Denies: depression Skin: Denies: rash Musculoskeletal: Denies: pain Allergies: Coded Allergies: No Known Allergies (Unverified , 04/11/20) Objective Last 24 Hour Vital Signs Date Time Temp Pulse Resp B/P (MAP) Pulse Ox O2 Delivery O2 Flow Rate FiO2 05/01/20 04:00 98.2 104 20 132/89 (103) 94 05/01/20 00:00 99.1 101 20 142/88 (106) 94 04/30/20 21:00 Room Air 04/30/20 20:00 99.0 101 20 142/87 (105) 99 04/30/20 17:15 98.6 04/30/20 16:00 97.7 90 18 150/87 (108) 94 04/30/20 12:13 98.6 04/30/20 12:00 98.6 86 18 144/88 (106) 98 Intake and Output 04/30/20 05/01/20 19:00 07:00 Intake Total 1120 ml 360 ml Output Total 1800 ml 800 ml Balance -680 ml -440 ml Intake Oral 520 ml Other 600 ml 360 ml Output Urine Total 1800 ml 800 ml Objective 05/01 no change 04/28 on and off 1 L NC; NAD 04/27 on and off 1 L NC; NAD 04/26 still on 1 L NC; NAD 04/25 no change respiratory-salomon 04/24 no change 04/23 on and off 1 lpm NC 04/22 saturating well on and off 1 lpm NC 04/21 no change 04/20 pt saturating well on 2 lpm NC; NAD 04/19 pt saturating well on 2 lpm NC; NAD 04/18 pt saturating well on 2 lpm NC General Appearance: WD/WN, no acute distress HEENT: normocephalic, atraumatic Respiratory: lungs clear Cardiovascular: normal rate, regular rhythm Abdomen: soft, non tender Genitourinary: other - [place] Extremities: no edema Laboratory Tests 04/30/20 10:52: White Blood Count 4.7L, Red Blood Count 3.82L, Hemoglobin 10.3L, Hematocrit 30.7L, Mean Corpuscular Volume 80, Mean Corpuscular Hemoglobin 26.8L, Mean Corpuscular Hemoglobin Concent 33.4, Red Cell Distribution Width 19.8H, Platelet Count 299, Mean Platelet Volume 6.0L, Neutrophils (%) (Auto) 77.9H, Lymphocytes (%) (Auto) 13.2L, Monocytes (%) (Auto) 5.3, Eosinophils (%) (Auto) 1.9, Basophils (%) (Auto) 1.7, Sodium Level 144, Potassium Level 4.5, Chloride Level 107, Carbon Dioxide Level 23, Anion Gap 15, Blood Urea Nitrogen 4L, Creatinine 0.5L, Estimat Glomerular Filtration Rate > 60, Glucose Level 79, Calcium Level 7.7L, Phosphorus Level 3.2, Magnesium Level 1.3L 05/01/20 07:25: White Blood Count 4.9, Red Blood Count 3.60L, Hemoglobin 9.7L, Hematocrit 29.4L, Mean Corpuscular Volume 82, Mean Corpuscular Hemoglobin 27.1, Mean Corpuscular Hemoglobin Concent 33.0, Red Cell Distribution Width 18.1H, Platelet Count 300, Mean Platelet Volume 5.5L, Neutrophils (%) (Auto) 73.6, Lymphocytes (%) (Auto) 16.1L, Monocytes (%) (Auto) 6.7, Eosinophils (%) (Auto) 2.6, Basophils (%) (Auto) 1.0 05/01/20 07:53: Phosphorus Level [Pending], Magnesium Level [Pending] Current Medications Medications (Trade) Dose Ordered Sig/Angelika Route PRN Reason Start Time Stop Time Status Last Admin Dose Admin Acetaminophen (Tylenol) 650 mg Q6H PRN ORAL Mild Pain (Pain Scale 1-3) 04/12/20 02:45 05/12/20 02:44 04/27/20 16:23 Acetaminophen (Tylenol) 650 mg Q6H PRN ORAL FEVER 04/12/20 16:30 05/12/20 16:29 04/27/20 00:38 Acetaminophen/ Hydrocodone Bitart ([place] 10/325) 1 tab Q6H PRN ORAL severe pain 04/28/20 16:17 05/05/20 16:16 04/29/20 10:46 Acetaminophen/ Hydrocodone Bitart ([place] 5/325) 1 tab Q6H PRN ORAL moderate pain 04/28/20 16:17 05/05/20 16:16 Allopurinol (allopurinoL) 300 mg DAILY ORAL 04/12/20 09:00 05/12/20 08:59 05/01/20 08:26 Ascorbic Acid (Vitamin C) 500 mg DAILY ORAL 04/26/20 09:00 05/26/20 08:59 05/01/20 08:26 Baclofen (Lioresal) 10 mg THREE TIMES A DAY ORAL 04/12/20 09:00 05/12/20 08:59 04/30/20 13:41 Chlorhexidine Gluconate (Christy-Hex 2%) 1 applic Q24H TOPIC 04/25/20 20:00 07/24/20 19:59 04/30/20 20:46 Docusate Sodium (Colace) 100 mg TWICE A DAY ORAL 04/27/20 09:00 05/20/20 08:59 04/30/20 17:33 Dronabinol (Marinol) 5 mg BID ORAL 05/01/20 09:00 07/30/20 08:59 05/01/20 08:25 Heparin Sodium (Porcine) (Heparin 5000 units/ml) 5,000 units EVERY 8 HOURS SUBQ 04/24/20 22:00 06/08/20 21:59 Lactulose (Cephulac) 20 gm THREE TIMES A DAY ORAL 04/21/20 13:00 05/21/20 12:59 04/30/20 09:09 Linaclotide (Linzess) 290 mcg BEFORE BREAKFAST ORAL 04/26/20 06:30 07/25/20 06:29 05/01/20 05:46 Magnesium Oxide (Mag-Ox 400mg) 400 mg THREE TIMES A DAY ORAL 04/30/20 13:00 05/30/20 12:59 05/01/20 08:25 Morphine Sulfate (Morphine Sulfate) 2 mg Q3H PRN IVP Severe Pain (Pain Scale 7-10) 04/28/20 16:17 05/05/20 16:16 05/01/20 05:47 Morphine Sulfate (Morphine Sulfate) 4 mg Q3H PRN IVP SEVERE BREAKTHRU PAIN 04/28/20 16:18 05/05/20 16:17 Multivitamins (Multivitamins) 1 tab DAILY ORAL 04/26/20 09:00 05/26/20 08:59 05/01/20 08:25 Ondansetron HCl (Zofran) 4 mg Q6H PRN IVP Nausea & Vomiting 04/19/20 13:30 05/19/20 13:29 04/29/20 18:17 Polyethylene Glycol (Miralax) 17 gm DAILY ORAL 04/20/20 09:00 05/20/20 08:59 05/01/20 08:25 Assessment/Plan Assessment/Plan 1. COVID-19 positivity. - COVID-19 PCR 04/21 positive: cont isolation - no indication for steroid or remdesivir given her normoxemia at this time - s/p cefepime - CXR with diffuse non-specific inflammatory/infectious process - cont supplemental oxygen as needed; currently saturating well on RA - CT A/P/C - no obvious pna or abscess, cultures negative 2. Immunocompromised state with history of non-Hodgkin lymphoma. - on chemo - h/o port line infection; s/p Vanco - to return to [facility] for further Tx 3. Fever; resolved - urine culture showed zee albicans -blood culture showed no growth 4. Hx of Hypertension. 5. Gout. 6. Anemia - s/p pRBC DVT ppx - on SCD Low TSH; improving - Dr. Fermin following - no need for levothyroxine per Dr. Fermin UTI - Urine Cx showed zee albicans - per nephro We will follow carefully as mooner dc planning back to noted The care for this patient was discussed with my supervising physician Time spent for this case was approximately 31 minutes Joaquín Simons May 01, 2020 09:12
[2020-05-01] MEDS ORDERED: Fleet's Mineral Oil Enema RECTAL SCH (09:30)
[2020-05-01 10:37] LABS: PHOSPHORUS 3.6 MG/DL (2.5-4.9)
--- NOTE | 2020-05-01 10:45 | NUR ---
NURSE NOTES: RN called Dr. Dykes and left message regarding Mg of 1.0. RN awaiting call back
--- NOTE | 2020-05-01 11:16 | NUR ---
RD ASSESSMENT & RECOMMENDATIONS SEE CARE ACTIVITY FOR COMPLETE ASSESSMENT DAILY ESTIMATED NEEDS: Needs based on Wound/ 68kg 25-30 kcals/kg 3141-3954 total kcals 1.25-1.5 g protein/kg 85-102 g total protein 25-30 mL/kg 5229-3951 total fluid mLs NUTRITION DIAGNOSIS: Increased kcal/prot/micronutrients needs R/T wound healing as evidenced by pt admitted w/ sacral wound, stage 2 per documentation. CURRENT DIET:REGULAR PO DIET RECOMMENDATIONS: Maintain Regular diet/ texture as tolerated ADDITIONAL RECOMMENDATIONS: * Calibrated bedscale wt * Wound healing: MVI x 1, Vit C 250mg QD LELO BID * Maintain Ensure Enlive BID + Snacks TID * Monitor lytes, replete as needed (low mag) * Accuchecks for close BG monitoring * Add D5 to IVF to prevent hypoglycemia (noted low BG 04/26-04/28)
[2020-05-01 12:00] VITALS: BP 132/80
--- NOTE | 2020-05-01 12:23 | General Progress Note ---
Subjective Date patient seen: May 01, 2020 ROS Limited/Unobtainable: No Allergies: Coded Allergies: No Known Allergies (Unverified , 04/11/20) Subjective Mg level remains very low despite repletion yesterday. Ordering IV Mg repletion. Patient doing well without new symptoms. Denies cough, SOB. No fevers. No other complaints. Review of systems: Constitutional: Denies: chills, diaphoresis, malaise, weakness, fever HEENT: Denies: eye pain, blurred vision, double vision, ear pain, nose pain, throat pain, Cardiovascular: Denies: chest pain, edema, lightheadedness, palpitations Respiratory: SEe HPI Gastrointestinal/Abdominal: Denies: abdominal pain, black stools, blood in stool, constipation, diarrhea, nausea, poor fluid intake vomiting, other Genitourinary: Denies: burning, discharge, frequency, Neurologic/Psychiatric: Denies: headache, numbness, paresthesia, new weakness, other Endocrine: Denies: excessive sweating, flushing, intolerance to cold, MSK: denies joint pains, swelling, stiffness, back pain Hematologic/Lymphatic: Denies: anemia, easy bleeding, easy bruising, Objective Last 24 Hour Vital Signs Date Time Temp Pulse Resp B/P (MAP) Pulse Ox O2 Delivery O2 Flow Rate FiO2 05/01/20 09:00 Room Air 05/01/20 08:00 98.0 98 20 130/85 (100) 95 05/01/20 04:00 98.2 104 20 132/89 (103) 94 05/01/20 00:00 99.1 101 20 142/88 (106) 94 04/30/20 21:00 Room Air 04/30/20 20:00 99.0 101 20 142/87 (105) 99 04/30/20 17:15 98.6 04/30/20 16:00 97.7 90 18 150/87 (108) 94 Intake and Output 04/30/20 05/01/20 19:00 07:00 Intake Total 1120 ml 360 ml Output Total 1800 ml 800 ml Balance -680 ml -440 ml Intake Oral 520 ml Other 600 ml 360 ml Output Urine Total 1800 ml 800 ml Laboratory Tests 05/01/20 07:25: White Blood Count 4.9, Red Blood Count 3.60L, Hemoglobin 9.7L, Hematocrit 29.4L, Mean Corpuscular Volume 82, Mean Corpuscular Hemoglobin 27.1, Mean Corpuscular Hemoglobin Concent 33.0, Red Cell Distribution Width 18.1H, Platelet Count 300, Mean Platelet Volume 5.5L, Neutrophils (%) (Auto) 73.6, Lymphocytes (%) (Auto) 16.1L, Monocytes (%) (Auto) 6.7, Eosinophils (%) (Auto) 2.6, Basophils (%) (Auto) 1.0 05/01/20 07:53: Phosphorus Level 3.6, Magnesium Level 1.0L Height (Feet): 5 Height (Inches): 7.00 Weight (Pounds): 150 Objective General: WDWN female in NAD, A&O x 4, pleasant, conversant HEENT: Normocephalic cephalic atraumatic, pupils equal round reactive to light and accommodation, nares patent and no symmetrical, no tonsillar exudates, mucous membranes slighly dry CV: Regular rate regular rhythm, no murmurs, rubs, or gallops Pulm: Lungs clear to auscultation bilaterally. No wheezes, rhonchi, or rales GI: Soft, nontender, nondistended, bowel sounds present + eaton in place, no suprapubic TTP Neuro: CN 2-12 intact bilaterally, no focal signs. Moving all extremities Ext: No lower extremity edema bilaterally Skin: no rashes lesions or ulcers Msk: Joints symmetrical in upper extremity and lower extremity bilaterally, no joint swelling. Lymph: No lymphadenopathy in upper extremity and lower extremity Assessment/Plan Status: stable Assessment/Plan: #Hx of Sepsis 2' port infection #Sepsis due to COVID 19 pneumonia (febrile, tachycardic) #COVID 19+ #Continued fever of unknown origin. COVID vs. cancer related? - Afebrile past 4 days - CTM Fever curve. Could be due to underlying malignancy - f/u Blood/Urine cultures 04/26 for new FFWU - Prior Blood cultures NGTD - Repeat UA: negative - Repeat CXR: Bronchial thickening - CT C/A/P including CT angio to eval for PE. : reviewed. No PE. No obvious infection. Incidental left hip fracture - IV fluids as needed - D/W ID. - Port has been removed at OSH - , - ngtd - Cefepime (04/14 - 04/15) - Per patient she is to continue on Vancomycin till 04/25 - D/c vanc - ID Consult, appreciate recs - MRI C/T/L spine w/wo contrast to eval for abscess: No sign of infection, abscess or osteo #L3 lesion on MRI: bone infarct vs. osteoid osteoma vs. less likely infection #Chronic LE weakness #s/p Laminectomy earlier in the year #Chronic Back pain > d/w radiology Dr. Hedrick - d/w ID, Neuro - outpatient f/u with spine surgeon: Dr. Nino in [facility] - appreciate neurology consult: Dr. Bajwa - PT when able - [place] 5/10 Q6hr PRN moderate to severe and IV Morphine for BTP #JIM, pre-renal vs. due to vanc toxicity - Resolved #Hypokalemia #Hypomagnesemia - likely from JIM recovery - IV Mg repletion - Urine Mg - f/u results > Vanc level 35 - urine lytes - MgOx oral supplementation - Nephrology on board: D/w Dr. hatch - Fluids per nephro #Hypothyroidism, suspect central given TSH and T4 both low - endocrinology consulted: Dr. Fermin to see - FSHpending. #left hip fracture, suspect chronic > Patient states she fell 5 months ago but no recent falls. Also had hard fall on coccyx in 2018. Minimal pain in left hip > Patient states she has not walked for months but is not paraplegic. Severe debilitation. - appreciate ortho eval: Dr. Payan. Given patient bed bound risks > benefits. Ou tpatient consideration - NWB LLE - pain management #Hx of Lymphoma #leukopenia improving > S/p mets to spine s/p surgery earlier this year and XRT/Chemo > Last chemo in February 2020 - All information per patient - Oncology following, appreciate recs - Can continue current therapy with outpatient onc - No acute interventions needed inpatient - Neupogen x 1 04/21 #Acute blood loss anemia - resolving #anemia of chronic disease #Normocytic anemia Patient presented with Hb 6.7 with normal MCV. History of lymphoma per patient and is receiving chemo tx, last known to be February 2020. - 2U PRBCs ordered and transfused on admission - 1 u PRBC given 04/26 - Hb Stable - Rectic count wnl, Iron and Iron sat low, Ferritin wnl - No active signs of bleeding - Hematology consulted, appreciate recs - CTM for signs of bleeding - Patient will need colonoscopy as outpatient in the future : Gi Consulted; Dr. Carter #sinus tachycardia, due to COVID pna - monitor EKG - Cardiology consulted: Dr. Wan #proctitis #Constipation- > improving - Aggressive bowel regimen - GI aware: Appreciate recommendations - Colace, miralax, - s/p enema and ducolax with improvement #chronic urinary retention - since patient had spine surgery earlier in the year - unsure if has true urinary retention - d/w nephrology -> voiding trial, however patient refused. #Hypokalemia #hypomagnesia - Lytes replaced - appreciate nephro management FENPPX DVTPPX: per primary. Consider changing to HSQ if Cr does not imrp Fluids: per nephro Diet: regular Lines: PIV PT/OT: pending Code status:Full Dispo: back to SNF Reason for Continued Hospitalization: monitoring fever curve, potential discharge to SNF tomorrow. Dispo - Discharge back to SNF once electrolytes improve, likely tomorrow MIPS ([employer]-based Incentive Payment System) Applicable CPT: 74126, 99707 CHECK ALL THAT ARE MET: [] Measure #5 (CHF): All ages. Prescribe LINDSAY/ARB upon discharge for patients with left ventricular systolic dysfunction. If not, the reason is clearly documented in the medical chart [] Measure #8 (CHF): All ages. Prescribe a beta domenico upon discharge for patients with left ventricular systolic dysfunction. If not, the reason is clearly documented in the medical chart. [x] Measure #47: Advance care plan or surrogate decision maker documented in the medical record. [x] Measure #130 The provider has documented, updated, or reviewed the patients current medication list and has documented it in the patients note. [] Measure #374 (All): Send report to referring provider. [] Measure #407(Sepsis due to MSSA bacteremia): Age 18+ Patient treated with a beta-lactam antibiotic (Nafcillin, Oxacillin or Cefazolin) as definitive therapy. MEDICAL COMPLEXITYHigh complexity medical decision making (need 2/3 categories)Problem - need 4 points [x]Acute/new problem with new plan for workup (4 points, 1 max) [] Acute/new problem without additional workup (3 points, 1 max) [] Unstable chronic problem actively being managed (2 point each, 2 max) [x] Stable chronic problem actively being managed (1 point each, 2 max) [x] Self-limited/transient process (constipation, muscle ache, etc) (1 point each, 2 max) Data - need 4 points [x] Reviewed labs/imaging studies (1 points, 2 max) [x] Independent review of imaging (EKG, xrays, etc) (2 points, 2 max) [x] Discussed case with consult/other MD/RN (2 points, 2 max) High Risk - qualify if have one of the following: [x] Severe exacerbation of acute problem, acute mental status change, IV narcotics, monitoring drug levels (vancomycin, INR, tacrolimus etc) I spent 39 minutes on this patient's case, and 21 mins was dedicated to counseling and/or care coordination. Discussed with nephrology, ID, RN at bedside. Time of note may not reflect time of encounter Albin Barker M.D. May 01, 2020 12:23
--- NOTE | 2020-05-01 13:34 | Cardiac Electrophysiology PN ---
Assessment/Plan Assessment/Plan 1. Sinus tachycardia due to sepsis, anemia and COVID. Can not use beta-domenico as blood pressure is 100/70. 2. COVID pneumonia. 3. Hypokalemia. 4. Hypomagnesemia. 5. History of non-Hodgkin lymphoma. 6. Leukopenia and anemia. FU Dr. Valencia S/P PRBC 7. Fever. 8. Low Mg replaced DW RN Subjective Subjective No events in Covid isolation. On 2 liter NC. DC back to SN[facility] pending Mg correction. No fever overnight. S/P PRBC for 7.6 Objective Last 24 Hour Vital Signs Date Time Temp Pulse Resp B/P (MAP) Pulse Ox O2 Delivery O2 Flow Rate FiO2 05/01/20 12:00 98.0 100 20 132/80 (97) 96 05/01/20 09:00 Room Air 05/01/20 08:00 98.0 98 20 130/85 (100) 95 05/01/20 04:00 98.2 104 20 132/89 (103) 94 05/01/20 00:00 99.1 101 20 142/88 (106) 94 04/30/20 21:00 Room Air 04/30/20 20:00 99.0 101 20 142/87 (105) 99 04/30/20 17:15 98.6 04/30/20 16:00 97.7 90 18 150/87 (108) 94 Intake and Output 04/30/20 05/01/20 19:00 07:00 Intake Total 1120 ml 360 ml Output Total 1800 ml 800 ml Balance -680 ml -440 ml Intake Oral 520 ml Other 600 ml 360 ml Output Urine Total 1800 ml 800 ml Laboratory Tests Test 05/01/20 07:25 05/01/20 07:53 White Blood Count 4.9 K/UL (4.8-10.8) Red Blood Count 3.60 M/UL (4.20-5.40) L Hemoglobin 9.7 G/DL (12.0-16.0) L Hematocrit 29.4 % (37.0-47.0) L Mean Corpuscular Volume 82 FL (80-99) Mean Corpuscular Hemoglobin 27.1 PG (27.0-31.0) Mean Corpuscular Hemoglobin Concent 33.0 G/DL (32.0-36.0) Red Cell Distribution Width 18.1 % (11.6-14.8) H Platelet Count 300 K/UL (150-450) Mean Platelet Volume 5.5 FL (6.5-10.1) L Neutrophils (%) (Auto) 73.6 % (45.0-75.0) Lymphocytes (%) (Auto) 16.1 % (20.0-45.0) L Monocytes (%) (Auto) 6.7 % (1.0-10.0) Eosinophils (%) (Auto) 2.6 % (0.0-3.0) Basophils (%) (Auto) 1.0 % (0.0-2.0) Phosphorus Level 3.6 MG/DL (2.5-4.9) Magnesium Level 1.0 MG/DL (1.8-2.4) L Objective HEAD AND NECK: No JVD. LUNGS: Coarse rhonchi. CARDIOVASCULAR: Regular S1 and S2 with no gallop or murmur. ABDOMEN: Soft. EXTREMITIES: No pitting edema. Ehsan Wan MD May 01, 2020 13:34
[2020-05-01 16:00] VITALS: BP 128/75
--- NOTE | 2020-05-01 16:23 | NUR ---
CASE MANAGEMENT:REVIEW SI;COVID PNEUMONIA. SEPSIS. SINUS TACHYCARDIA. 99.1 104 20 142/88 94% ON RA H/H 9.7/29.4 MAG 1.0 IS;MAG SULFATE IV MARINOL PO BID MAG-OX PO TID MORPHINE SULFATE IV Q3 PRN VIT C PO QD LINZESS PO QD HEPARIN SQ Q8 MED SURG STATUS DCP;FROM [facility]
--- NOTE | 2020-05-01 17:26 | NUR ---
INSURANCE CLINICALS AND REVIEWS 04/28-05/01 FAXED TO [facility] [phone] fx [phone]
--- NOTE | 2020-05-01 19:32 | NUR ---
NURSE HAND-OFF: Important Events on Shift: low Mg, magnesium bag 4x Patient Status: stable Diet: regular Pending Orders: n/a Pending Results/Labs:n/a Pending MD notification:n/a Latest Vital Signs: Temperature 97.0 , Pulse 93 , B/P 128 /75 , Respiratory Rate 20 , O2 SAT 96 , Nasal Cannula, O2 Flow Rate 1.0 . Vital Sign Comment: stable Latest [place] Fall Score: 55 Fall Risk: High Risk Safety Measures: Call light Within Reach, Bed Alarm Zone 1, Side Rails Side Rails x3, Bed position Low and Locked. Fall Precautions: Door Sign Patient Fall Education Report given to REA sy.
--- NOTE | 2020-05-01 19:35 | NUR ---
NURSE NOTES: received report from kris orellana. patient on bed, asleep. on NC at 2lpm, no sob. denies any pain or discomfort. with eaton care 16F draining well. per esteban, " hold discharge today due to mg level 1.0; afebrile throughout the shift". with iv access on the left wrist, saline lock. reiterated to call and ask for assistance to prevent fall or injury. call light and light button within easy reach. bed locked and in lowest position. will continue plan of care.
[2020-05-01 20:00] VITALS: BP 131/93
[2020-05-01] MEDS: Dyna-Hex 2% Top Sol 2oz TOPIC SCH (20:00)
--- NOTE | 2020-05-01 21:39 | Neurology Progress Note ---
Interim History Interim History ROS Limited/Unobtainable: No Interim History no new deficits Objective Physical Exam Last Vital Signs Date Time Temp Pulse Resp B/P (MAP) Pulse Ox O2 Delivery O2 Flow Rate FiO2 05/01/20 16:00 97.0 93 20 128/75 (92) 96 05/01/20 09:00 Room Air 04/29/20 08:21 21 04/27/20 20:19 1.0 Laboratory Tests Test 05/01/20 07:25 05/01/20 07:53 05/01/20 13:30 White Blood Count 4.9 K/UL (4.8-10.8) Red Blood Count 3.60 M/UL (4.20-5.40) L Hemoglobin 9.7 G/DL (12.0-16.0) L Hematocrit 29.4 % (37.0-47.0) L Mean Corpuscular Volume 82 FL (80-99) Mean Corpuscular Hemoglobin 27.1 PG (27.0-31.0) Mean Corpuscular Hemoglobin Concent 33.0 G/DL (32.0-36.0) Red Cell Distribution Width 18.1 % (11.6-14.8) H Platelet Count 300 K/UL (150-450) Mean Platelet Volume 5.5 FL (6.5-10.1) L Neutrophils (%) (Auto) 73.6 % (45.0-75.0) Lymphocytes (%) (Auto) 16.1 % (20.0-45.0) L Monocytes (%) (Auto) 6.7 % (1.0-10.0) Eosinophils (%) (Auto) 2.6 % (0.0-3.0) Basophils (%) (Auto) 1.0 % (0.0-2.0) Phosphorus Level 3.6 MG/DL (2.5-4.9) Magnesium Level 1.0 MG/DL (1.8-2.4) L Urine Random Magnesium Pending Impression/Recommendations Problems: (1) Anemia Status: stable Diagnostic Impression Chronic weakness, LE worse than UEs MRI spine noted, osteoma wo spine compression slplaminectomy COVID 19 pneumonia (febrile, tachycardic) Hx of Lymphoma cont medical support pain control PT as able Renny Bajwa MD May 01, 2020 21:39
[2020-05-02] VITALS: BP 131/86
[2020-05-02] MEDS: HYDROcodone/Acetamin 10/325 tab ORAL PRN ×4 (00:13→18:36)
[2020-05-02 04:00] VITALS: BP 103/71
[2020-05-02] MEDS: Heparin 5000 units/ml inj SUBQ SCH ×3 (06:00→21:30)
--- NOTE | 2020-05-02 06:00 | NUR ---
NURSE NOTES: patient refused to take heparin and stool softener. explained risks and benefits.
--- NOTE | 2020-05-02 06:22 | NUR ---
NURSE HAND-OFF: Important Events on Shift: eaton care, o2 care, pain mngt Patient Status: stable Diet: regular Pending Orders: Pending Results/Labs: Pending MD notification: Latest Vital Signs: Temperature 97.6 , Pulse 90 , B/P 103 /71 , Respiratory Rate 20 , O2 SAT 99 , Nasal Cannula, O2 Flow Rate 1.0 . Vital Sign Comment: Latest [place]rb[place] Fall Score: 55 Fall Risk: High Risk Safety Measures: Call light Within Reach, Bed Alarm Zone 1, Side Rails Side Rails x3, Bed position Low and Locked. Fall Precautions: Door Sign Patient Fall Education Addendum: 05/02/20 at 0719 by Ale Nunez RN HAND-OFF: Report given to kris juares.
--- NOTE | 2020-05-02 06:26 | Hematology/Onc Progress Note ---
Assessment/Plan Assessment/Plan # Leukopenia COVID19++++++++++ --> hep and hiv order as needed --> wbc 4-->3-->2.9->2->4.6--4.1-->3.6-->4.7 --> Neupogen 300 x1 04/21 --> isolation if anc<500 # Non-Hodgkins Lymphoma is s/p chemotherapy in the past --> to return to [facility] for further treatment --> likely for ct/pet as outpatient --> CT Here shows no e/o disease --> imaging has been reviewed thus far --> end date of 04/2020 # Anemia likely of chronic disease -- does not appear to have iron deficiency --> transfuse as needed, tibc and ferritin are cw acd --> hgb 7.8-->8.6-->8.5-->8.4->7.6-->10 --> no hemolysis is noted --> s/p transfusion on admission # Covid 19++ with SIRS (febrile, tachycardic) --> per pulm and id --> CXR with diffuse non-specific inflammatory/infectious process --> s/p Cefepime (04/14 - 04/15) # Hypokalemia # Hypomagnesia # Chronic Back pain # Full Code # Dvt ppx heparin sq Appreciate consultation and dw Rn Subjective Constitutional: Denies: no symptoms, chills, fever, malaise, weakness, other HEENT: Denies: no symptoms, eye pain, blurred vision, tearing, double vision, ear pain, ear discharge, nose pain, nose congestion, throat pain, throat swelling, mouth pain, mouth swelling, other Cardiovascular: Denies: no symptoms, chest pain, edema, irregular heart rate, lightheadedness, palpitations, syncope, other Respiratory: Denies: no symptoms, cough, shortness of breath, SOB with excertion, SOB at rest, sputum, wheezing, other Gastrointestinal/Abdominal: Denies: no symptoms, abdomen distended, abdominal pain, black stools, tarry stools, blood in stool, constipated, diarrhea, difficulty swallowing, nausea, poor appetite, poor fluid intake, rectal bleeding, vomiting, other Genitourinary: Denies: no symptoms, burning, discharge, frequency, flank pain, hematuria, incontinence, pain, urgency, other Neurologic/Psychiatric: Denies: no symptoms, anxiety, depressed, emotional problems, headache, numbness, paresthesia, pre-existing deficit, seizure, tingling, tremors, weakness, other Endocrine: Denies: no symptoms, excessive sweating, flushing, intolerance to cold, intolerance to heat, increased hunger, increased thirst, increased urine, unexplained weight gain, unexplained weight loss, other Allergies: Coded Allergies: No Known Allergies (Unverified , 04/11/20) Subjective 04/17 is on room air, more comfortable, potential dc to snf 04/18 labs reviewed, no bleeding, meds noted, no night sweats 04/19 sleeping comfortably, no major events, no night sweats 04/20 meds noted, labs reviewed, wbc 2.9, hep and hiv is neg 04/21 labs reviewed, in am, the wbc was 2, to get neupogen x 1 dose now 04/23 labs noted, no bleeding, wbc 4, hgb remains low, but holding off trans 04/24 labs are pending for am, meds reviewed, no bleeding 04/25 meds reviewed, labs noted, no night sweats, dw rn at bedside, no new events 04/26 labs reviewed, meds noted, no bleeding, wbc 3, hgb 7.6 04/27 dw rn at bedside, labs are noted, no bleeding, refusing heparin now sq 04/28 labs have been reviewed, is on room air, no bleeding, tachy 04/30 labs pending, no night sweats, meds reviewed, tachy, no night sweats, wants iv iron 05/01 dc planning, meds noted, for labs this am, no new events 05/02 meds reviewed, has been refusing care, continue heparin sq Objective Objective Current Medications Medications (Trade) Dose Ordered Sig/Angelika Route PRN Reason Start Time Stop Time Status Last Admin Dose Admin Acetaminophen (Tylenol) 650 mg Q6H PRN ORAL Mild Pain (Pain Scale 1-3) 04/12/20 02:45 05/12/20 02:44 04/27/20 16:23 Acetaminophen (Tylenol) 650 mg Q6H PRN ORAL FEVER 04/12/20 16:30 05/12/20 16:29 04/27/20 00:38 Acetaminophen/ Hydrocodone Bitart ([place] 10/325) 1 tab Q6H PRN ORAL severe pain 04/28/20 16:17 05/05/20 16:16 05/02/20 00:13 Acetaminophen/ Hydrocodone Bitart ([place] 5/325) 1 tab Q6H PRN ORAL moderate pain 04/28/20 16:17 05/05/20 16:16 Allopurinol (allopurinoL) 300 mg DAILY ORAL 04/12/20 09:00 05/12/20 08:59 05/01/20 08:26 Ascorbic Acid (Vitamin C) 500 mg DAILY ORAL 04/26/20 09:00 05/26/20 08:59 05/01/20 08:26 Baclofen (Lioresal) 10 mg THREE TIMES A DAY ORAL 04/12/20 09:00 05/12/20 08:59 04/30/20 13:41 Chlorhexidine Gluconate (Christy-Hex 2%) 1 applic Q24H TOPIC 04/25/20 20:00 07/24/20 19:59 04/30/20 20:46 Docusate Sodium (Colace) 100 mg TWICE A DAY ORAL 04/27/20 09:00 05/20/20 08:59 05/01/20 17:33 Dronabinol (Marinol) 5 mg BID ORAL 05/01/20 09:00 07/30/20 08:59 05/01/20 17:33 Heparin Sodium (Porcine) (Heparin 5000 units/ml) 5,000 units EVERY 8 HOURS SUBQ 04/24/20 22:00 06/08/20 21:59 Lactulose (Cephulac) 20 gm THREE TIMES A DAY ORAL 04/21/20 13:00 05/21/20 12:59 05/01/20 17:34 Linaclotide (Linzess) 290 mcg BEFORE BREAKFAST ORAL 04/26/20 06:30 07/25/20 06:29 05/01/20 05:46 Magnesium Oxide (Mag-Ox 400mg) 400 mg THREE TIMES A DAY ORAL 04/30/20 13:00 05/30/20 12:59 05/01/20 17:33 Morphine Sulfate (Morphine Sulfate) 2 mg Q3H PRN IVP Severe Pain (Pain Scale 7-10) 04/28/20 16:17 05/05/20 16:16 05/01/20 21:08 Morphine Sulfate (Morphine Sulfate) 4 mg Q3H PRN IVP SEVERE BREAKTHRU PAIN 04/28/20 16:18 05/05/20 16:17 Multivitamins (Multivitamins) 1 tab DAILY ORAL 04/26/20 09:00 05/26/20 08:59 05/01/20 08:25 Ondansetron HCl (Zofran) 4 mg Q6H PRN IVP Nausea & Vomiting 04/19/20 13:30 05/19/20 13:29 04/29/20 18:17 Polyethylene Glycol (Miralax) 17 gm DAILY ORAL 04/20/20 09:00 05/20/20 08:59 05/01/20 08:25 Last 24 Hour Vital Signs Date Time Temp Pulse Resp B/P (MAP) Pulse Ox O2 Delivery O2 Flow Rate FiO2 05/02/20 04:00 97.6 90 20 103/71 (82) 99 05/02/20 00:43 98.3 05/02/20 00:00 98.3 94 20 131/86 (101) 96 05/01/20 21:00 Room Air 05/01/20 20:04 94 Room Air 21 05/01/20 20:00 98.4 99 20 131/93 (106) 96 05/01/20 16:00 97.0 93 20 128/75 (92) 96 05/01/20 12:00 98.0 100 20 132/80 (97) 96 05/01/20 09:00 Room Air 05/01/20 08:00 98.0 98 20 130/85 (100) 95 05/01/20 04:00 98.2 104 20 132/89 (103) 94 05/01/20 00:00 99.1 101 20 142/88 (106) 94 04/30/20 21:00 Room Air 04/30/20 20:00 99.0 101 20 142/87 (105) 99 04/30/20 17:15 98.6 04/30/20 16:00 97.7 90 18 150/87 (108) 94 04/30/20 12:13 98.6 04/30/20 12:00 98.6 86 18 144/88 (106) 98 04/30/20 09:00 Room Air 04/30/20 08:00 98.2 92 18 138/89 (105) 97 Intake and Output 05/01/20 05/02/20 19:00 07:00 Intake Total 700 ml 350 ml Output Total 900 ml 850 ml Balance -200 ml -500 ml Intake Oral 350 ml Other 700 ml Output Urine Total 900 ml 850 ml Labs Test 04/29/20 10:10 04/30/20 10:52 05/01/20 07:25 05/01/20 07:53 White Blood Count 4.9 K/UL (4.8-10.8) 4.7 K/UL (4.8-10.8) 4.9 K/UL (4.8-10.8) Red Blood Count 3.63 M/UL (4.20-5.40) 3.82 M/UL (4.20-5.40) 3.60 M/UL (4.20-5.40) Hemoglobin 9.8 G/DL (12.0-16.0) 10.3 G/DL (12.0-16.0) 9.7 G/DL (12.0-16.0) Hematocrit 29.7 % (37.0-47.0) 30.7 % (37.0-47.0) 29.4 % (37.0-47.0) Mean Corpuscular Volume 82 FL (80-99) 80 FL (80-99) 82 FL (80-99) Mean Corpuscular Hemoglobin 27.0 PG (27.0-31.0) 26.8 PG (27.0-31.0) 27.1 PG (27.0-31.0) Mean Corpuscular Hemoglobin Concent 33.0 G/DL (32.0-36.0) 33.4 G/DL (32.0-36.0) 33.0 G/DL (32.0-36.0) Red Cell Distribution Width 18.4 % (11.6-14.8) 19.8 % (11.6-14.8) 18.1 % (11.6-14.8) Platelet Count 310 K/UL (150-450) 299 K/UL (150-450) 300 K/UL (150-450) Mean Platelet Volume 5.7 FL (6.5-10.1) 6.0 FL (6.5-10.1) 5.5 FL (6.5-10.1) Neutrophils (%) (Auto) 73.3 % (45.0-75.0) 77.9 % (45.0-75.0) 73.6 % (45.0-75.0) Lymphocytes (%) (Auto) 16.1 % (20.0-45.0) 13.2 % (20.0-45.0) 16.1 % (20.0-45.0) Monocytes (%) (Auto) 6.2 % (1.0-10.0) 5.3 % (1.0-10.0) 6.7 % (1.0-10.0) Eosinophils (%) (Auto) 2.9 % (0.0-3.0) 1.9 % (0.0-3.0) 2.6 % (0.0-3.0) Basophils (%) (Auto) 1.6 % (0.0-2.0) 1.7 % (0.0-2.0) 1.0 % (0.0-2.0) Sodium Level 144 MMOL/L (136-145) 144 MMOL/L (136-145) Potassium Level 3.2 MMOL/L (3.5-5.1) 4.5 MMOL/L (3.5-5.1) Chloride Level 108 MMOL/L (98-107) 107 MMOL/L (98-107) Carbon Dioxide Level 23 MMOL/L (21-32) 23 MMOL/L (21-32) Anion Gap 13 mmol/L (5-15) 15 mmol/L (5-15) Blood Urea Nitrogen 6 mg/dL (7-18) 4 mg/dL (7-18) Creatinine 0.8 MG/DL (0.55-1.30) 0.5 MG/DL (0.55-1.30) Estimat Glomerular Filtration Rate > 60 mL/min (>60) > 60 mL/min (>60) Glucose Level 70 MG/DL (74-106) 79 MG/DL (74-106) Calcium Level 7.0 MG/DL (8.5-10.1) 7.7 MG/DL (8.5-10.1) Phosphorus Level 3.9 MG/DL (2.5-4.9) 3.2 MG/DL (2.5-4.9) 3.6 MG/DL (2.5-4.9) Magnesium Level 0.6 MG/DL (1.8-2.4) 1.3 MG/DL (1.8-2.4) 1.0 MG/DL (1.8-2.4) Test 05/01/20 13:30 05/02/20 04:50 Height (Feet): 5 Height (Inches): 7.00 Weight (Pounds): 150 Objective Gen: nad Pulm: ctab, no cwr CV: rrr Abd: soft, nt Ext: no cce Martinez [place] MD May 02, 2020 06:26
[2020-05-02 06:33] LABS: BASOPHILS % (AUTO) 1.3 % (0.0-2.0); EOSINOPHILS % (AUTO) 4.7 % (0.0-3.0); HEMATOCRIT 30.6 % (37.0-47.0); HEMOGLOBIN 9.9 G/DL (12.0-16.0); LYMPHOCYTES % (AUTO) 15.6 % (20.0-45.0); MEAN CORPUSCULAR VOLUME 84 FL (80-99); MONOCYTES % (AUTO) 9.2 % (1.0-10.0); NEUTROPHILS % (AUTO) 69.2 % (45.0-75.0); PLATELET COUNT 317 K/UL (150-450); RED BLOOD COUNT 3.64 M/UL (4.20-5.40); RED CELL DISTRIBUTION WIDTH 18.8 % (11.6-14.8); WHITE BLOOD COUNT 3.6 K/UL (4.8-10.8)
--- NOTE | 2020-05-02 06:50 | NUR ---
NURSE NOTES: received orders from dr. hatch . noted and carried out. endorsed to kris juares
[2020-05-02 07:05] LABS: ANION GAP 8 mmol/L (5-15); BLOOD UREA NITROGEN 3 mg/dL (7-18); CALCIUM 8.6 MG/DL (8.5-10.1); CARBON DIOXIDE 30 MMOL/L (21-32); CHLORIDE 104 MMOL/L (98-107); CREATININE 0.7 MG/DL (0.55-1.30); SODIUM 143 MMOL/L (136-145)
[2020-05-02 07:07] LABS: POTASSIUM 2.7 MMOL/L (3.5-5.1)
--- NOTE | 2020-05-02 07:31 | NUR ---
NURSE NOTES: Report received from REA Sandoval. Pt awake in bed, alert and oriented x 4, no SOB, bed in lowest position breaks engaged and alarm on, denies any pain at this time, IV line present and intact, on NC at 2 lpm, on contact and droplet precautions for COVID 19, will continue to monitor and proceed with plan of care, call light within reach.
[2020-05-02 08:00] VITALS: BP 142/88
[2020-05-02] MEDS ORDERED: Sodium Chloride 550 ML IV SCH (08:00)
[2020-05-02] MEDS: Ascorbic Acid 500mg tab ORAL SCH (08:17)
[2020-05-02] MEDS: Magnesium Oxide 400mg tab ORAL SCH ×3 (08:17→17:20)
[2020-05-02] MEDS: Dronabinol 2.5mg Cap ORAL SCH ×2 (08:17→17:20)
[2020-05-02] MEDS: Miralax 17gm pkt ORAL SCH (08:18)
[2020-05-02] MEDS: Lactulose 20gm/30ml UDC ORAL SCH ×3 (08:18→17:21)
[2020-05-02] MEDS: Docusate 100mg cap ORAL SCH ×2 (08:18→17:20)
--- NOTE | 2020-05-02 08:56 | Nephrology Progress Note ---
Assessment/Plan Plan #acute kidney injury likely due to vanco toxicity #hypokalemia- #hypomagnesemia #Acute on chronic anemia #h/p non- hodgkins lymphoma #possible sepsis #+ COVID #Femoral intertrochanteric hip fracture. - replete k and mag - Pulmonary eval - prbc transfusion prn - replete lytes - hemo-onc eval - ID eval - monitor CBC - avoid nephrotoxins - ortho eval - spine eval for L3 acute on chronic bone infarct, less likely neoplasm or infection? times spent 65 min Subjective ROS Limited/Unobtainable: No Subjective Cr better today febrile overnight DC held hip fracture noted ortho consulted Impression: Minimal distention of the rectum with feces, could represent mild rectal fecal impaction. Equivocal slight thickening of the rectal wall and stranding of the perirectal fat, if real could indicate mild stercoral proctitis Comminuted fracture of the left femoral head, neck, and intertrochanteric region, ununited. Possibly acute, but abundant soft tissues surrounding the fracture area raises possibility that this could be chronic. Correlate with clinical findings Other findings as noted, including evidence of old T12 vertebral body compression fracture and prior vertebral augmentation procedure, Morales catheter, subcentimeter low-attenuation lesions which probably represent renal cysts, small sliding-type hiatal hernia Impression: Unusual signal abnormality of the posterolateral aspect of the L3 vertebral body on the right. This appears to be confined to the vertebral body marrow space. Prior CT scan in retrospect demonstrates sclerotic areas in the same location. Most likely differential consideration is an atypical hemangioma. Other possibilities include acute on chronic bone infarct, less likely neoplasm or infection No other unusual contrast enhancement. No findings to suggest discitis or epidural abscess. Objective Objective Last 24 Hour Vital Signs Date Time Temp Pulse Resp B/P (MAP) Pulse Ox O2 Delivery O2 Flow Rate FiO2 05/02/20 04:00 97.6 90 20 103/71 (82) 99 05/02/20 00:43 98.3 05/02/20 00:00 98.3 94 20 131/86 (101) 96 05/01/20 21:00 Room Air 05/01/20 20:04 94 Room Air 21 05/01/20 20:00 98.4 99 20 131/93 (106) 96 05/01/20 16:00 97.0 93 20 128/75 (92) 96 05/01/20 12:00 98.0 100 20 132/80 (97) 96 05/01/20 09:00 Room Air Intake and Output 05/01/20 05/02/20 19:00 07:00 Intake Total 700 ml 350 ml Output Total 900 ml 850 ml Balance -200 ml -500 ml Intake Oral 350 ml Other 700 ml Output Urine Total 900 ml 850 ml Laboratory Tests 05/01/20 13:30: Urine Random Magnesium [Pending] 05/02/20 04:50: White Blood Count 3.6L, Red Blood Count 3.64L, Hemoglobin 9.9L, Hematocrit 30.6L , Mean Corpuscular Volume 84, Mean Corpuscular Hemoglobin 27.3, Mean Corpuscular Hemoglobin Concent 32.4, Red Cell Distribution Width 18.8H, Platelet Count 317, Mean Platelet Volume 6.1L, Neutrophils (%) (Auto) 69.2, Lymphocytes (%) (Auto) 15.6L, Monocytes (%) (Auto) 9.2, Eosinophils (%) (Auto) 4.7H, Basophils (%) (Auto) 1.3, Sodium Level 143, Potassium Level 2.7*L, Chloride Level 104, Carbon Dioxide Level 30, Anion Gap 8, Blood Urea Nitrogen 3L, Creatinine 0.7, Estimat Glomerular Filtration Rate > 60, Glucose Level 82, Calcium Level 8.6, Magnesium Level [Pending] Height (Feet): 5 Height (Inches): 7.00 Weight (Pounds): 150 Objective General Appearance: no apparent distress EENT: PERRL/EOMI Neck: non-tender, normal alignment Cardiovascular: normal peripheral pulses, normal rate Respiratory/Chest: chest wall non-tender, lungs clear Abdomen: normal bowel sounds, non tender Neurologic: alert, oriented x 3 Kallie Dykes M.D. May 02, 2020 08:56
--- NOTE | 2020-05-02 09:19 | Pulmonology Progress Note ---
Subjective ROS Limited/Unobtainable: No Interval Events: None new Constitutional: Reports: fatigue HEENT: Repors: no symptoms Respiratory: Reports: no symptoms, dry cough Cardiovascular: Reports: no symptoms Gastrointestinal/Abdominal: Denies: nausea, vomiting, diarrhea Psychiatric: Denies: depression Skin: Denies: rash Musculoskeletal: Denies: pain Allergies: Coded Allergies: No Known Allergies (Unverified , 04/11/20) Objective Last 24 Hour Vital Signs Date Time Temp Pulse Resp B/P (MAP) Pulse Ox O2 Delivery O2 Flow Rate FiO2 05/02/20 04:00 97.6 90 20 103/71 (82) 99 05/02/20 00:43 98.3 05/02/20 00:00 98.3 94 20 131/86 (101) 96 05/01/20 21:00 Room Air 05/01/20 20:04 94 Room Air 21 05/01/20 20:00 98.4 99 20 131/93 (106) 96 05/01/20 16:00 97.0 93 20 128/75 (92) 96 05/01/20 12:00 98.0 100 20 132/80 (97) 96 Intake and Output 05/01/20 05/02/20 19:00 07:00 Intake Total 700 ml 350 ml Output Total 900 ml 850 ml Balance -200 ml -500 ml Intake Oral 350 ml Other 700 ml Output Urine Total 900 ml 850 ml Objective 05/02 on and off 2 L NC; NAD 05/01 no change 04/28 on and off 1 L NC; NAD 04/27 on and off 1 L NC; NAD 04/26 still on 1 L NC; NAD 04/25 no change respiratory-salomon 04/24 no change 04/23 on and off 1 lpm NC 04/22 saturating well on and off 1 lpm NC 04/21 no change 04/20 pt saturating well on 2 lpm NC; NAD 04/19 pt saturating well on 2 lpm NC; NAD 04/18 pt saturating well on 2 lpm NC General Appearance: WD/WN, no acute distress HEENT: normocephalic, atraumatic Respiratory: lungs clear Cardiovascular: normal rate, regular rhythm Abdomen: soft, non tender Genitourinary: other - Morales Extremities: no edema Laboratory Tests 05/01/20 13:30: Urine Random Magnesium [Pending] 05/02/20 04:50: White Blood Count 3.6L, Red Blood Count 3.64L, Hemoglobin 9.9L, Hematocrit 30.6L , Mean Corpuscular Volume 84, Mean Corpuscular Hemoglobin 27.3, Mean Corpuscular Hemoglobin Concent 32.4, Red Cell Distribution Width 18.8H, Platelet Count 317, Mean Platelet Volume 6.1L, Neutrophils (%) (Auto) 69.2, Lymphocytes (%) (Auto) 15.6L, Monocytes (%) (Auto) 9.2, Eosinophils (%) (Auto) 4.7H, Basophils (%) (Auto) 1.3, Sodium Level 143, Potassium Level 2.7*L, Chloride Level 104, Carbon Dioxide Level 30, Anion Gap 8, Blood Urea Nitrogen 3L, Creatinine 0.7, Estimat Glomerular Filtration Rate > 60, Glucose Level 82, Calcium Level 8.6, Magnesium Level 1.7L Current Medications Medications (Trade) Dose Ordered Sig/Angelika Route PRN Reason Start Time Stop Time Status Last Admin Dose Admin Acetaminophen (Tylenol) 650 mg Q6H PRN ORAL Mild Pain (Pain Scale 1-3) 04/12/20 02:45 05/12/20 02:44 04/27/20 16:23 Acetaminophen (Tylenol) 650 mg Q6H PRN ORAL FEVER 04/12/20 16:30 05/12/20 16:29 04/27/20 00:38 Acetaminophen/ Hydrocodone Bitart (Pantego 10/325) 1 tab Q6H PRN ORAL severe pain 04/28/20 16:17 05/05/20 16:16 05/02/20 06:27 Acetaminophen/ Hydrocodone Bitart (Pantego 5/325) 1 tab Q6H PRN ORAL moderate pain 04/28/20 16:17 05/05/20 16:16 Allopurinol (allopurinoL) 300 mg DAILY ORAL 04/12/20 09:00 05/12/20 08:59 05/02/20 08:17 Ascorbic Acid (Vitamin C) 500 mg DAILY ORAL 04/26/20 09:00 05/26/20 08:59 05/02/20 08:17 Baclofen (Lioresal) 10 mg THREE TIMES A DAY ORAL 04/12/20 09:00 05/12/20 08:59 12/29/20 08:17 Chlorhexidine Gluconate (Christy-Hex 2%) 1 applic Q24H TOPIC 04/25/20 20:00 07/24/20 19:59 04/30/20 20:46 Docusate Sodium (Colace) 100 mg TWICE A DAY ORAL 04/27/20 09:00 05/20/20 08:59 05/01/20 17:33 Dronabinol (Marinol) 5 mg BID ORAL 05/01/20 09:00 07/30/20 08:59 05/02/20 08:17 Heparin Sodium (Porcine) (Heparin 5000 units/ml) 5,000 units EVERY 8 HOURS SUBQ 04/24/20 22:00 06/08/20 21:59 Lactulose (Cephulac) 20 gm THREE TIMES A DAY ORAL 04/21/20 13:00 05/21/20 12:59 05/01/20 17:34 Linaclotide (Linzess) 290 mcg BEFORE BREAKFAST ORAL 04/26/20 06:30 07/25/20 06:29 05/01/20 05:46 Magnesium Oxide (Mag-Ox 400mg) 400 mg THREE TIMES A DAY ORAL 04/30/20 13:00 05/30/20 12:59 05/02/20 08:17 Morphine Sulfate (Morphine Sulfate) 2 mg Q3H PRN IVP Severe Pain (Pain Scale 7-10) 04/28/20 16:17 05/05/20 16:16 05/01/20 21:08 Morphine Sulfate (Morphine Sulfate) 4 mg Q3H PRN IVP SEVERE BREAKTHRU PAIN 04/28/20 16:18 05/05/20 16:17 Multivitamins (Multivitamins) 1 tab DAILY ORAL 04/26/20 09:00 05/26/20 08:59 05/02/20 08:17 Ondansetron HCl (Zofran) 4 mg Q6H PRN IVP Nausea & Vomiting 04/19/20 13:30 05/19/20 13:29 04/29/20 18:17 Polyethylene Glycol (Miralax) 17 gm DAILY ORAL 04/20/20 09:00 05/20/20 08:59 05/01/20 08:25 Potassium Chloride 100 ml @ 100 mls/hr Q1H IVPB 05/02/20 08:00 05/02/20 11:59 05/02/20 08:16 Potassium Chloride (K-Dur) 40 meq ONCE ORAL 05/02/20 08:00 05/02/20 09:30 05/02/20 08:17 Sodium Chloride 550 ml @ 100 mls/hr Q5H30M IV 05/02/20 08:00 05/02/20 13:29 05/02/20 08:00 Assessment/Plan Assessment/Plan 1. COVID-19 infection - COVID-19 PCR 04/21 positive: cont isolation - no indication for steroid or remdesivir given her normoxemia at this time - s/p cefepime - CXR with diffuse non-specific inflammatory/infectious process - cont supplemental oxygen as needed; currently saturating well on 2L NC - CT A/P/C - no obvious pna or abscess, cultures negative 2. Immunocompromised state with history of non-Hodgkin lymphoma. - on chemo - h/o port line infection; s/p Vanco - to return to onco for further Tx 3. Fever; resolved - urine culture showed zee albicans - blood culture showed no growth 4. Hx of Hypertension. 5. Hx of gout. 6. Anemia - s/p pRBC 7. DVT ppx - on SCD 8. Low TSH; improving - Dr. Fermin following - no need for levothyroxine per Dr. Fermin 9. UTI - Urine Cx showed zee albicans - per nephro 10. Hypokalemia - potassium replaced per neprho 11. 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
--- NOTE | 2020-05-02 09:25 | General Progress Note ---
Subjective ROS Limited/Unobtainable: Yes Allergies: Coded Allergies: No Known Allergies (Unverified , 04/11/20) Objective Last 24 Hour Vital Signs Date Time Temp Pulse Resp B/P (MAP) Pulse Ox O2 Delivery O2 Flow Rate FiO2 05/02/20 04:00 97.6 90 20 103/71 (82) 99 05/02/20 00:43 98.3 05/02/20 00:00 98.3 94 20 131/86 (101) 96 05/01/20 21:00 Room Air 05/01/20 20:04 94 Room Air 21 05/01/20 20:00 98.4 99 20 131/93 (106) 96 05/01/20 16:00 97.0 93 20 128/75 (92) 96 05/01/20 12:00 98.0 100 20 132/80 (97) 96 Intake and Output 05/01/20 05/02/20 19:00 07:00 Intake Total 700 ml 350 ml Output Total 900 ml 850 ml Balance -200 ml -500 ml Intake Oral 350 ml Other 700 ml Output Urine Total 900 ml 850 ml Laboratory Tests 05/01/20 13:30: Urine Random Magnesium [Pending] 05/02/20 04:50: White Blood Count 3.6L, Red Blood Count 3.64L, Hemoglobin 9.9L, Hematocrit 30.6L , Mean Corpuscular Volume 84, Mean Corpuscular Hemoglobin 27.3, Mean Corpuscular Hemoglobin Concent 32.4, Red Cell Distribution Width 18.8H, Platelet Count 317, Mean Platelet Volume 6.1L, Neutrophils (%) (Auto) 69.2, Lymphocytes (%) (Auto) 15.6L, Monocytes (%) (Auto) 9.2, Eosinophils (%) (Auto) 4.7H, Basophils (%) (Auto) 1.3, Sodium Level 143, Potassium Level 2.7*L, Chloride Level 104, Carbon Dioxide Level 30, Anion Gap 8, Blood Urea Nitrogen 3L, Creatinine 0.7, Estimat Glomerular Filtration Rate > 60, Glucose Level 82, Calcium Level 8.6, Magnesium Level 1.7L Height (Feet): 5 Height (Inches): 7.00 Weight (Pounds): 150 General Appearance: alert EENT: normal ENT inspection Neck: supple Cardiovascular: normal rate Respiratory/Chest: decreased breath sounds Abdomen: normal bowel sounds, non tender, soft Extremities: non-tender Assessment/Plan Status: stable Assessment/Plan: iron def anemia mild elevated CEA lymphoma on chemo covid positive neg stool ob iv iron fu H&H needs out patient fu for colonoscopy fu oncology CT reviewed colace miralax lactulose tammy LOPEZ vit c Patrick Carter MD May 02, 2020 09:25
--- NOTE | 2020-05-02 10:50 | NUR ---
NURSE NOTES: Patient refused IV Potassium, pt only had half of the first dose. Pt stated it is badly hurting her hand/vein, explained to pt that it is a usual side effect of this particular drug, also explained risk and benefits and explained K level. Pt received 40 meq PO this morning. Dr. Dykes made aware and stated it is okay and ordered another 40 meq to be given 4 hours after the notification time which is at 1340, noted and carried out. Will continue to monitor pt.
--- NOTE | 2020-05-02 11:45 | General Progress Note ---
Subjective Allergies: Coded Allergies: No Known Allergies (Unverified , 04/11/20) Subjective Patient is doing well; she was asking about her hip, will discuss with her that she is not a good inpatient surgical candidate at this time. Electrolytes still low today. Monitor one more day Objective Last 24 Hour Vital Signs Date Time Temp Pulse Resp B/P (MAP) Pulse Ox O2 Delivery O2 Flow Rate FiO2 05/02/20 09:00 Room Air 05/02/20 08:00 99.1 96 20 142/88 (106) 94 05/02/20 04:00 97.6 90 20 103/71 (82) 99 05/02/20 00:43 98.3 05/02/20 00:00 98.3 94 20 131/86 (101) 96 05/01/20 21:00 Room Air 05/01/20 20:04 94 Room Air 21 05/01/20 20:00 98.4 99 20 131/93 (106) 96 05/01/20 16:00 97.0 93 20 128/75 (92) 96 05/01/20 12:00 98.0 100 20 132/80 (97) 96 Intake and Output 05/01/20 05/02/20 19:00 07:00 Intake Total 700 ml 350 ml Output Total 900 ml 850 ml Balance -200 ml -500 ml Intake Oral 350 ml Other 700 ml Output Urine Total 900 ml 850 ml Laboratory Tests 05/01/20 13:30: Urine Random Magnesium [Pending] 05/02/20 04:50: White Blood Count 3.6L, Red Blood Count 3.64L, Hemoglobin 9.9L, Hematocrit 30.6L , Mean Corpuscular Volume 84, Mean Corpuscular Hemoglobin 27.3, Mean Corpuscular Hemoglobin Concent 32.4, Red Cell Distribution Width 18.8H, Platelet Count 317, Mean Platelet Volume 6.1L, Neutrophils (%) (Auto) 69.2, Lymphocytes (%) (Auto) 15.6L, Monocytes (%) (Auto) 9.2, Eosinophils (%) (Auto) 4.7H, Basophils (%) (Auto) 1.3, Sodium Level 143, Potassium Level 2.7*L, Chloride Level 104, Carbon Dioxide Level 30, Anion Gap 8, Blood Urea Nitrogen 3L, Creatinine 0.7, Estimat Glomerular Filtration Rate > 60, Glucose Level 82, Calcium Level 8.6, Magnesium Level 1.7L Height (Feet): 5 Height (Inches): 7.00 Weight (Pounds): 150 General Appearance: WD/WN, no apparent distress Cardiovascular: normal rate, regular rhythm Respiratory/Chest: normal breath sounds, no respiratory distress, no accessory muscle use Abdomen: non tender, soft Extremities: normal range of motion 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 COVID vs. cancer related? - Afebrile past 5 days - CTM Fever curve. Could be due to underlying malignancy - f/u Blood/Urine cultures 04/26 for new FFWU - Prior Blood cultures NGTD - Repeat UA: negative - Repeat CXR: Bronchial thickening - CT C/A/P including CT angio to eval for PE. : reviewed. No PE. No obvious infection. Incidental left hip fracture - IV fluids as needed - D/W ID. - Port has been removed at OSH - , - ngtd - Cefepime (04/14 - 04/15) - Per patient she is to continue on Vancomycin till 04/25 - D/c vanc - ID Consult, appreciate recs - MRI C/T/L spine w/wo contrast to eval for abscess: No sign of infection, abscess or osteo, or Fx #L3 lesion on MRI: bone infarct vs. osteoid osteoma vs. less likely infection #Chronic LE weakness #s/p Laminectomy earlier in the year #Chronic Back pain > d/w radiology Dr. Hedrick - d/w ID, Neuro - outpatient f/u with spine surgeon: Dr. Nino in [facility] - appreciate neurology consult: Dr. Bajwa - PT when able - [facility] 5/10 Q6hr PRN moderate to severe and IV Morphine for BTP #JIM, pre-renal vs. due to vanc toxicity - Resolved #Hypokalemia #Hypomagnesemia - likely from JIM recovery - IV Mg repletion - Urine Mg - f/u results > Vanc level 35 - urine lytes - MgOx oral supplementation - Nephrology on board: D/w Dr. hatch - Fluids per nephro #Hypothyroidism, suspect central given TSH and T4 both low - endocrinology consulted: Dr. Fermin to see - FSH #left hip fracture, suspect chronic > Patient states she fell 5 months ago but no recent falls. Also had hard fall on coccyx in 2018. Minimal pain in left hip > Patient states she has not walked for months but is not paraplegic. Severe debilitation. - appreciate ortho eval: Dr. Payan. Given patient bed bound risks > benefits. 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 History of lymphoma per patient and is receiving chemo tx, last known to be February 2020. - 2U PRBCs ordered and transfused on admission - 1 u PRBC given 04/26 - Hb Stable - Rectic count wnl, Iron and Iron sat low, Ferritin wnl - No active signs of bleeding - Hematology consulted, appreciate recs - CTM for signs of bleeding - Patient will need colonoscopy as outpatient in the future : Gi Consulted; Dr. Carter #sinus tachycardia, due to COVID pna - monitor EKG - Cardiology consulted: Dr. Wan #proctitis #Constipation- > improving - Aggressive bowel regimen - GI aware: Appreciate recommendations - Colace, miralax, - s/p enema and ducolax with improvement #chronic urinary retention - since patient had spine surgery earlier in the year - unsure if has true urinary retention - d/w nephrology -> voiding trial, however patient refused. #Hypokalemia #hypomagnesia - Lytes replaced - appreciate nephro management FENPPX DVTPPX: per primary. Consider changing to HSQ if Cr does not imrp Fluids: per nephro Diet: regular Lines: PIV PT/OT: pending Code status:Full Dispo: back to SNF 05/02: monitor in house another day given abnormal electrolytes Neelam Ríos D.O. 29, 2020 11:45
[2020-05-02 12:00] VITALS: BP 125/81
--- NOTE | 2020-05-02 12:31 | Cardiac Electrophysiology PN ---
Assessment/Plan Assessment/Plan 1. Sinus tachycardia due to sepsis, anemia and COVID. Can not use beta-domenico as blood pressure is 100/70. 2. COVID pneumonia. 3. Hypokalemia. 4. Hypomagnesemia. 5. History of non-Hodgkin lymphoma. 6. Leukopenia and anemia. FU Dr. Valencia S/P PRBC 7. Fever. 8. Low Mg replaced DW RN DC today Subjective Subjective No events in Covid isolation. On 2 liter NC. DC back to [facility] pending Mg and K correction. No fever overnight. S/P PRBC for 7.6 Objective Last 24 Hour Vital Signs Date Time Temp Pulse Resp B/P (MAP) Pulse Ox O2 Delivery O2 Flow Rate FiO2 05/02/20 12:00 98.0 89 20 125/81 (96) 96 05/02/20 09:00 Room Air 05/02/20 08:00 99.1 96 20 142/88 (106) 94 05/02/20 04:00 97.6 90 20 103/71 (82) 99 05/02/20 00:43 98.3 05/02/20 00:00 98.3 94 20 131/86 (101) 96 05/01/20 21:00 Room Air 05/01/20 20:04 94 Room Air 21 05/01/20 20:00 98.4 99 20 131/93 (106) 96 05/01/20 16:00 97.0 93 20 128/75 (92) 96 Intake and Output 05/01/20 05/02/20 19:00 07:00 Intake Total 700 ml 350 ml Output Total 900 ml 850 ml Balance -200 ml -500 ml Intake Oral 350 ml Other 700 ml Output Urine Total 900 ml 850 ml Laboratory Tests Test 05/01/20 13:30 05/02/20 04:50 Urine Random Magnesium Pending White Blood Count 3.6 K/UL (4.8-10.8) L Red Blood Count 3.64 M/UL (4.20-5.40) L Hemoglobin 9.9 G/DL (12.0-16.0) L Hematocrit 30.6 % (37.0-47.0) L Mean Corpuscular Volume 84 FL (80-99) Mean Corpuscular Hemoglobin 27.3 PG (27.0-31.0) Mean Corpuscular Hemoglobin Concent 32.4 G/DL (32.0-36.0) Red Cell Distribution Width 18.8 % (11.6-14.8) H Platelet Count 317 K/UL (150-450) Mean Platelet Volume 6.1 FL (6.5-10.1) L Neutrophils (%) (Auto) 69.2 % (45.0-75.0) Lymphocytes (%) (Auto) 15.6 % (20.0-45.0) L Monocytes (%) (Auto) 9.2 % (1.0-10.0) Eosinophils (%) (Auto) 4.7 % (0.0-3.0) H Basophils (%) (Auto) 1.3 % (0.0-2.0) Sodium Level 143 MMOL/L (136-145) Potassium Level 2.7 MMOL/L (3.5-5.1) *L Chloride Level 104 MMOL/L (98-107) Carbon Dioxide Level 30 MMOL/L (21-32) Anion Gap 8 mmol/L (5-15) Blood Urea Nitrogen 3 mg/dL (7-18) L Creatinine 0.7 MG/DL (0.55-1.30) Estimat Glomerular Filtration Rate > 60 mL/min (>60) Glucose Level 82 MG/DL (74-106) Calcium Level 8.6 MG/DL (8.5-10.1) Magnesium Level 1.7 MG/DL (1.8-2.4) L Objective HEAD AND NECK: No JVD. LUNGS: Coarse rhonchi. CARDIOVASCULAR: Regular S1 and S2 with no gallop or murmur. ABDOMEN: Soft. EXTREMITIES: No pitting edema. Ehsan Wan MD May 02, 2020 12:31
--- NOTE | 2020-05-02 14:37 | NUR ---
CASE MANAGEMENT:REVIEW SI;COVID PNEUMONIA. SEPSIS. SINUS TACHYCARDIA. HYPOKALEMIA. HYPOMAGNESEMIA. 99.1 96 20 142/88 94% ON RA H/H 9.9/30.6 K+ 2.7 MAG 1.7 IS;MAG SULFATE IV IVF NS @ 100 ML/HR K-DUR PO ONCE KCL IV MARINOL PO BID MAG-OX PO TID NORCO PO Q6 PRN LINZESS PO QD LACTULOSE PO TID HEPARIN SQ Q12 MED SURG STATUS DCP;FROM [facility]
[2020-05-02 16:00] VITALS: BP 132/89
--- NOTE | 2020-05-02 17:56 | Neurology Progress Note ---
Interim History Interim History ROS Limited/Unobtainable: Yes Interim History no new deficits Objective Physical Exam Last Vital Signs Date Time Temp Pulse Resp B/P (MAP) Pulse Ox O2 Delivery O2 Flow Rate FiO2 05/02/20 16:00 98.2 86 20 132/89 (103) 94 05/02/20 09:00 Room Air 05/01/20 20:04 21 04/27/20 20:19 1.0 Laboratory Tests Test 05/02/20 04:50 White Blood Count 3.6 K/UL (4.8-10.8) L Red Blood Count 3.64 M/UL (4.20-5.40) L Hemoglobin 9.9 G/DL (12.0-16.0) L Hematocrit 30.6 % (37.0-47.0) L Mean Corpuscular Volume 84 FL (80-99) Mean Corpuscular Hemoglobin 27.3 PG (27.0-31.0) Mean Corpuscular Hemoglobin Concent 32.4 G/DL (32.0-36.0) Red Cell Distribution Width 18.8 % (11.6-14.8) H Platelet Count 317 K/UL (150-450) Mean Platelet Volume 6.1 FL (6.5-10.1) L Neutrophils (%) (Auto) 69.2 % (45.0-75.0) Lymphocytes (%) (Auto) 15.6 % (20.0-45.0) L Monocytes (%) (Auto) 9.2 % (1.0-10.0) Eosinophils (%) (Auto) 4.7 % (0.0-3.0) H Basophils (%) (Auto) 1.3 % (0.0-2.0) Sodium Level 143 MMOL/L (136-145) Potassium Level 2.7 MMOL/L (3.5-5.1) *L Chloride Level 104 MMOL/L (98-107) Carbon Dioxide Level 30 MMOL/L (21-32) Anion Gap 8 mmol/L (5-15) Blood Urea Nitrogen 3 mg/dL (7-18) L Creatinine 0.7 MG/DL (0.55-1.30) Estimat Glomerular Filtration Rate > 60 mL/min (>60) Glucose Level 82 MG/DL (74-106) Calcium Level 8.6 MG/DL (8.5-10.1) Magnesium Level 1.7 MG/DL (1.8-2.4) L Impression/Recommendations Problems: (1) Anemia Status: stable Diagnostic Impression Chronic weakness, LE worse than UEs MRI spine noted, osteoma wo spine compression slplaminectomy COVID 19 pneumonia (febrile, tachycardic) Hx of Lymphoma cont medical support pain control PT as able Renny Bajwa MD May 02, 2020 17:56
--- NOTE | 2020-05-02 19:19 | NUR ---
NURSE HAND-OFF: Important Events on Shift:[safety and comfort, pain management, IV magnesium and PO KCL, monitoring labs and VS] Patient Status: [stable] Diet: [regular] Pending Orders: [] Pending Results/Labs:[] Pending MD notification:[] Latest Vital Signs: Temperature 98.2 , Pulse 86 , B/P 132 /89 , Respiratory Rate 20 , O2 SAT 94 , Nasal Cannula, O2 Flow Rate 1.0 . Vital Sign Comment: [] Latest [place] Fall Score: 55 Fall Risk: High Risk Safety Measures: Call light Within Reach, Bed Alarm Zone 1, Side Rails Side Rails x3, Bed position Low and Locked. Fall Precautions: Door Sign Patient Fall Education Report given to [REA Sandoval].
--- NOTE | 2020-05-02 19:35 | NUR ---
NURSE NOTES: received report from blanquita rn. patient on bed, asleep . on NC at 2lpm, no sob. denies any pain or discomfort. with eaton care 16F draining well. per blanquita, " po 40 meq kcl X2 given for low level of potassium". with iv access on the left wrist, saline lock. reiterated to call and ask for assistance to prevent fall or injury. call light and light button within easy reach. bed locked and in lowest position. will continue plan of care.
[2020-05-02 20:00] VITALS: BP 121/70
[2020-05-02] MEDS: Dyna-Hex 2% Top Sol 2oz TOPIC SCH (20:00)
--- NOTE | 2020-05-02 21:00 | NUR ---
NURSE NOTES: patient refused heparin.
[2020-05-03] VITALS: BP 111/73
[2020-05-03] MEDS: HYDROcodone/Acetamin 10/325 tab ORAL PRN ×4 (00:49→19:51)
[2020-05-03 04:00] VITALS: BP 118/67
[2020-05-03] MEDS: Heparin 5000 units/ml inj SUBQ SCH ×3 (05:54→22:00)
--- NOTE | 2020-05-03 06:00 | NUR ---
NURSE NOTES: patient refused heparin and stool softener.
--- NOTE | 2020-05-03 06:35 | Hematology/Onc Progress Note ---
Assessment/Plan Assessment/Plan # Leukopenia COVID19++++++++++ --> hep and hiv order as needed --> wbc 4-->3-->2.9->2->4.6--4.1-->3.6-->4.7-->3.6 --> Neupogen 300 x1 04/21 --> isolation if anc<500 # Non-Hodgkins Lymphoma is s/p chemotherapy in the past --> to return to [facility] for further treatment --> likely for ct/pet as outpatient --> CT Here shows no e/o disease --> imaging has been reviewed thus far --> end date of 04/2020 # Anemia likely of chronic disease -- does not appear to have iron deficiency --> transfuse as needed, tibc and ferritin are cw acd --> hgb 7.8-->8.6-->8.5-->8.4->7.6-->10-->9.9 --> no hemolysis is noted --> s/p transfusion on admission # Covid 19++ with SIRS (febrile, tachycardic) --> per pulm and id --> CXR with diffuse non-specific inflammatory/infectious process --> s/p Cefepime (04/14 - 04/15) # Hypokalemia # Hypomagnesia # Chronic Back pain # Full Code # Dvt ppx heparin sq Appreciate consultation and reagan Rn Subjective HEENT: Denies: no symptoms, eye pain, blurred vision, tearing, double vision, ear pain, ear discharge, nose pain, nose congestion, throat pain, throat swelling, mouth pain, mouth swelling, other Cardiovascular: Denies: no symptoms, chest pain, edema, irregular heart rate, lightheadedness, palpitations, syncope, other Respiratory: Denies: no symptoms, cough, shortness of breath, SOB with excertion, SOB at rest, sputum, wheezing, other Gastrointestinal/Abdominal: Denies: no symptoms, abdomen distended, abdominal pain, black stools, tarry stools, blood in stool, constipated, diarrhea, difficulty swallowing, nausea, poor appetite, poor fluid intake, rectal bleeding, vomiting, other Genitourinary: Denies: no symptoms, burning, discharge, frequency, flank pain, hematuria, incontinence, pain, urgency, other Neurologic/Psychiatric: Denies: no symptoms, anxiety, depressed, emotional problems, headache, numbness, paresthesia, pre-existing deficit, seizure, tingling, tremors, weakness, other Endocrine: Denies: no symptoms, excessive sweating, flushing, intolerance to cold, intolerance to heat, increased hunger, increased thirst, increased urine, unexplained weight gain, unexplained weight loss, other Hematologic/Lymphatic: Denies: no symptoms, anemia, easy bleeding, easy bruising, adenopathy, other Allergies: Coded Allergies: No Known Allergies (Unverified , 04/11/20) Subjective 04/17 is on room air, more comfortable, potential dc to snf 04/18 labs reviewed, no bleeding, meds noted, no night sweats 04/19 sleeping comfortably, no major events, no night sweats 04/20 meds noted, labs reviewed, wbc 2.9, hep and hiv is neg 04/21 labs reviewed, in am, the wbc was 2, to get neupogen x 1 dose now 04/23 labs noted, no bleeding, wbc 4, hgb remains low, but holding off trans 04/24 labs are pending for am, meds reviewed, no bleeding 04/25 meds reviewed, labs noted, no night sweats, dw rn at bedside, no new events 04/26 labs reviewed, meds noted, no bleeding, wbc 3, hgb 7.6 04/27 dw rn at bedside, labs are noted, no bleeding, refusing heparin now sq 04/28 labs have been reviewed, is on room air, no bleeding, tachy 04/30 labs pending, no night sweats, meds reviewed, tachy, no night sweats, wants iv iron 05/01 dc planning, meds noted, for labs this am, no new events 05/02 meds reviewed, has been refusing care, continue heparin sq 05/03 labs reviewed, on 2lnc, no bleeding, remains on hep but refusing Objective Objective Current Medications Medications (Trade) Dose Ordered Sig/Angelika Route PRN Reason Start Time Stop Time Status Last Admin Dose Admin Acetaminophen (Tylenol) 650 mg Q6H PRN ORAL Mild Pain (Pain Scale 1-3) 04/12/20 02:45 05/12/20 02:44 04/27/20 16:23 Acetaminophen (Tylenol) 650 mg Q6H PRN ORAL FEVER 04/12/20 16:30 05/12/20 16:29 04/27/20 00:38 Acetaminophen/ Hydrocodone Bitart ([place] 10/325) 1 tab Q6H PRN ORAL severe pain 04/28/20 16:17 05/05/20 16:16 05/03/20 00:49 Acetaminophen/ Hydrocodone Bitart ([place] 5/325) 1 tab Q6H PRN ORAL moderate pain 04/28/20 16:17 05/05/20 16:16 Allopurinol (allopurinoL) 300 mg DAILY ORAL 04/12/20 09:00 05/12/20 08:59 05/02/20 08:17 Ascorbic Acid (Vitamin C) 500 mg DAILY ORAL 04/26/20 09:00 05/26/20 08:59 05/02/20 08:17 Baclofen (Lioresal) 10 mg THREE TIMES A DAY ORAL 04/12/20 09:00 05/12/20 08:59 05/02/20 08:17 Chlorhexidine Gluconate (Christy-Hex 2%) 1 applic Q24H TOPIC 04/25/20 20:00 07/24/20 19:59 04/30/20 20:46 Docusate Sodium (Colace) 100 mg TWICE A DAY ORAL 04/27/20 09:00 05/20/20 08:59 05/01/20 17:33 Dronabinol (Marinol) 5 mg BID ORAL 05/01/20 09:00 07/30/20 08:59 05/02/20 17:20 Heparin Sodium (Porcine) (Heparin 5000 units/ml) 5,000 units EVERY 8 HOURS SUBQ 04/24/20 22:00 06/08/20 21:59 Lactulose (Cephulac) 20 gm THREE TIMES A DAY ORAL 04/21/20 13:00 05/21/20 12:59 05/01/20 17:34 Linaclotide (Linzess) 290 mcg BEFORE BREAKFAST ORAL 04/26/20 06:30 07/25/20 06:29 05/01/20 05:46 Magnesium Oxide (Mag-Ox 400mg) 400 mg THREE TIMES A DAY ORAL 04/30/20 13:00 1/26/21 12:59 05/02/20 17:20 Morphine Sulfate (Morphine Sulfate) 2 mg Q3H PRN IVP Severe Pain (Pain Scale 7-10) 04/28/20 16:17 05/05/20 16:16 05/01/20 21:08 Morphine Sulfate (Morphine Sulfate) 4 mg Q3H PRN IVP SEVERE BREAKTHRU PAIN 04/28/20 16:18 05/05/20 16:17 Multivitamins (Multivitamins) 1 tab DAILY ORAL 04/26/20 09:00 05/26/20 08:59 05/02/20 08:17 Ondansetron HCl (Zofran) 4 mg Q6H PRN IVP Nausea & Vomiting 04/19/20 13:30 05/19/20 13:29 04/29/20 18:17 Polyethylene Glycol (Miralax) 17 gm DAILY ORAL 04/20/20 09:00 05/20/20 08:59 05/01/20 08:25 Last 24 Hour Vital Signs Date Time Temp Pulse Resp B/P (MAP) Pulse Ox O2 Delivery O2 Flow Rate FiO2 05/03/20 04:00 98.1 91 20 118/67 (84) 100 05/03/20 01:19 97.9 05/03/20 00:00 97.9 94 20 111/73 (86) 100 05/02/20 21:00 Nasal Cannula 2.0 05/02/20 20:00 98.1 96 20 121/70 (87) 100 05/02/20 19:06 98.2 05/02/20 16:00 98.2 86 20 132/89 (103) 94 05/02/20 13:03 98.0 05/02/20 12:00 98.0 89 20 125/81 (96) 96 05/02/20 09:00 Room Air 05/02/20 08:00 99.1 96 20 142/88 (106) 94 05/02/20 04:00 97.6 90 20 103/71 (82) 99 05/02/20 00:43 98.3 05/02/20 00:00 98.3 94 20 131/86 (101) 96 05/01/20 21:00 Room Air 05/01/20 20:04 94 Room Air 21 05/01/20 20:00 98.4 99 20 131/93 (106) 96 05/01/20 16:00 97.0 93 20 128/75 (92) 96 05/01/20 12:00 98.0 100 20 132/80 (97) 96 05/01/20 09:00 Room Air 05/01/20 08:00 98.0 98 20 130/85 (100) 95 Intake and Output 05/02/20 05/03/20 18:59 06:59 Intake Total 1100 ml 360 ml Output Total 800 ml 1100 ml Balance 300 ml -740 ml Intake Oral 400 ml 360 ml Other 700 ml Output Urine Total 800 ml 1100 ml # Voids 1 Labs Test 04/30/20 10:52 05/01/20 07:25 05/01/20 07:53 05/01/20 13:30 White Blood Count 4.7 K/UL (4.8-10.8) 4.9 K/UL (4.8-10.8) Red Blood Count 3.82 M/UL (4.20-5.40) 3.60 M/UL (4.20-5.40) Hemoglobin 10.3 G/DL (12.0-16.0) 9.7 G/DL (12.0-16.0) Hematocrit 30.7 % (37.0-47.0) 29.4 % (37.0-47.0) Mean Corpuscular Volume 80 FL (80-99) 82 FL (80-99) Mean Corpuscular Hemoglobin 26.8 PG (27.0-31.0) 27.1 PG (27.0-31.0) Mean Corpuscular Hemoglobin Concent 33.4 G/DL (32.0-36.0) 33.0 G/DL (32.0-36.0) Red Cell Distribution Width 19.8 % (11.6-14.8) 18.1 % (11.6-14.8) Platelet Count 299 K/UL (150-450) 300 K/UL (150-450) Mean Platelet Volume 6.0 FL (6.5-10.1) 5.5 FL (6.5-10.1) Neutrophils (%) (Auto) 77.9 % (45.0-75.0) 73.6 % (45.0-75.0) Lymphocytes (%) (Auto) 13.2 % (20.0-45.0) 16.1 % (20.0-45.0) Monocytes (%) (Auto) 5.3 % (1.0-10.0) 6.7 % (1.0-10.0) Eosinophils (%) (Auto) 1.9 % (0.0-3.0) 2.6 % (0.0-3.0) Basophils (%) (Auto) 1.7 % (0.0-2.0) 1.0 % (0.0-2.0) Sodium Level 144 MMOL/L (136-145) Potassium Level 4.5 MMOL/L (3.5-5.1) Chloride Level 107 MMOL/L (98-107) Carbon Dioxide Level 23 MMOL/L (21-32) Anion Gap 15 mmol/L (5-15) Blood Urea Nitrogen 4 mg/dL (7-18) Creatinine 0.5 MG/DL (0.55-1.30) Estimat Glomerular Filtration Rate > 60 mL/min (>60) Glucose Level 79 MG/DL (74-106) Calcium Level 7.7 MG/DL (8.5-10.1) Phosphorus Level 3.2 MG/DL (2.5-4.9) 3.6 MG/DL (2.5-4.9) Magnesium Level 1.3 MG/DL (1.8-2.4) 1.0 MG/DL (1.8-2.4) Test 05/02/20 04:50 White Blood Count 3.6 K/UL (4.8-10.8) Red Blood Count 3.64 M/UL (4.20-5.40) Hemoglobin 9.9 G/DL (12.0-16.0) Hematocrit 30.6 % (37.0-47.0) Mean Corpuscular Volume 84 FL (80-99) Mean Corpuscular Hemoglobin 27.3 PG (27.0-31.0) Mean Corpuscular Hemoglobin Concent 32.4 G/DL (32.0-36.0) Red Cell Distribution Width 18.8 % (11.6-14.8) Platelet Count 317 K/UL (150-450) Mean Platelet Volume 6.1 FL (6.5-10.1) Neutrophils (%) (Auto) 69.2 % (45.0-75.0) Lymphocytes (%) (Auto) 15.6 % (20.0-45.0) Monocytes (%) (Auto) 9.2 % (1.0-10.0) Eosinophils (%) (Auto) 4.7 % (0.0-3.0) Basophils (%) (Auto) 1.3 % (0.0-2.0) Sodium Level 143 MMOL/L (136-145) Potassium Level 2.7 MMOL/L (3.5-5.1) Chloride Level 104 MMOL/L (98-107) Carbon Dioxide Level 30 MMOL/L (21-32) Anion Gap 8 mmol/L (5-15) Blood Urea Nitrogen 3 mg/dL (7-18) Creatinine 0.7 MG/DL (0.55-1.30) Estimat Glomerular Filtration Rate > 60 mL/min (>60) Glucose Level 82 MG/DL (74-106) Calcium Level 8.6 MG/DL (8.5-10.1) Magnesium Level 1.7 MG/DL (1.8-2.4) Height (Feet): 5 Height (Inches): 7.00 Weight (Pounds): 150 Objective Gen: nad Pulm: ctab, no cwr CV: rrr Abd: soft, nt Ext: no cce Martinez Hill MD May 03, 2020 06:35
--- NOTE | 2020-05-03 06:38 | NUR ---
NURSE HAND-OFF: Important Events on Shift: eaton care; pain mngt Patient Status: stable Diet: regular Pending Orders: Pending Results/Labs: Pending MD notification: Latest Vital Signs: Temperature 98.1 , Pulse 91 , B/P 118 /67 , Respiratory Rate 20 , O2 SAT 100 , Nasal Cannula, O2 Flow Rate 2.0 . Vital Sign Comment: Latest [place] Fall Score: 55 Fall Risk: High Risk Safety Measures: Call light Within Reach, Bed Alarm Zone 1, Side Rails Side Rails x3, Bed position Low and Locked. Fall Precautions: Door Sign Patient Fall Education Addendum: 05/03/20 at 0710 by Ale Nunez RN HAND-OFF: Report given to kris juares.
--- NOTE | 2020-05-03 07:50 | General Progress Note ---
Subjective ROS Limited/Unobtainable: Yes Allergies: Coded Allergies: No Known Allergies (Unverified , 04/11/20) Objective Last 24 Hour Vital Signs Date Time Temp Pulse Resp B/P (MAP) Pulse Ox O2 Delivery O2 Flow Rate FiO2 05/03/20 07:19 98.1 05/03/20 04:00 98.1 91 20 118/67 (84) 100 05/03/20 01:19 97.9 05/03/20 00:00 97.9 94 20 111/73 (86) 100 05/02/20 21:00 Nasal Cannula 2.0 05/02/20 20:00 98.1 96 20 121/70 (87) 100 05/02/20 19:06 98.2 05/02/20 16:00 98.2 86 20 132/89 (103) 94 05/02/20 13:03 98.0 05/02/20 12:00 98.0 89 20 125/81 (96) 96 05/02/20 09:00 Room Air 05/02/20 08:00 99.1 96 20 142/88 (106) 94 Intake and Output 05/02/20 05/03/20 19:00 07:00 Intake Total 1100 ml 360 ml Output Total 800 ml 1100 ml Balance 300 ml -740 ml Intake Oral 400 ml 360 ml Other 700 ml Output Urine Total 800 ml 1100 ml # Voids 1 Height (Feet): 5 Height (Inches): 7.00 Weight (Pounds): 150 General Appearance: no apparent distress EENT: PERRL/EOMI Neck: supple Cardiovascular: normal rate Respiratory/Chest: decreased breath sounds Abdomen: normal bowel sounds, non tender, soft Extremities: non-tender Assessment/Plan Status: stable Assessment/Plan: iron def anemia mild elevated CEA lymphoma on chemo covid positive neg stool ob iv iron fu H&H needs out patient fu for colonoscopy fu oncology CT reviewed colace miralax lactulose linzaira KAMINSKII Patrick Canela MD May 03, 2020 07:50
[2020-05-03 08:00] VITALS: BP 103/66
[2020-05-03] MEDS: Miralax 17gm pkt ORAL SCH (09:00)
[2020-05-03] MEDS: Lactulose 20gm/30ml UDC ORAL SCH ×3 (09:00→17:08)
--- NOTE | 2020-05-03 09:06 | Pulmonology Progress Note ---
Subjective ROS Limited/Unobtainable: Yes Interval Events: None new Constitutional: Reports: fatigue HEENT: Repors: no symptoms Respiratory: Reports: no symptoms, dry cough Cardiovascular: Reports: no symptoms Gastrointestinal/Abdominal: Denies: nausea, vomiting, diarrhea Psychiatric: Denies: depression Skin: Denies: rash Musculoskeletal: Denies: pain Allergies: Coded Allergies: No Known Allergies (Unverified , 04/11/20) Objective Last 24 Hour Vital Signs Date Time Temp Pulse Resp B/P (MAP) Pulse Ox O2 Delivery O2 Flow Rate FiO2 05/03/20 07:19 98.1 05/03/20 04:00 98.1 91 20 118/67 (84) 100 05/03/20 01:19 97.9 05/03/20 00:00 97.9 94 20 111/73 (86) 100 05/02/20 21:00 Nasal Cannula 2.0 05/02/20 20:00 98.1 96 20 121/70 (87) 100 05/02/20 19:06 98.2 05/02/20 16:00 98.2 86 20 132/89 (103) 94 05/02/20 13:03 98.0 05/02/20 12:00 98.0 89 20 125/81 (96) 96 Intake and Output 05/02/20 05/03/20 19:00 07:00 Intake Total 1100 ml 360 ml Output Total 800 ml 1100 ml Balance 300 ml -740 ml Intake Oral 400 ml 360 ml Other 700 ml Output Urine Total 800 ml 1100 ml # Voids 1 Objective 05/03 no change; AM labs unavailable 05/02 on and off 2 L NC; NAD 05/01 no change 04/28 on and off 1 L NC; NAD 04/27 on and off 1 L NC; NAD 04/26 still on 1 L NC; NAD 04/25 no change respiratory-salomon 04/24 no change 04/23 on and off 1 lpm NC 04/22 saturating well on and off 1 lpm NC 04/21 no change 04/20 pt saturating well on 2 lpm NC; NAD 04/19 pt saturating well on 2 lpm NC; NAD 04/18 pt saturating well on 2 lpm NC General Appearance: WD/WN, no acute distress HEENT: normocephalic, atraumatic Respiratory: lungs clear Cardiovascular: normal rate, regular rhythm Abdomen: soft, non tender Genitourinary: other - Morales Extremities: no edema Current Medications Medications (Trade) Dose Ordered Sig/Angelika Route PRN Reason Start Time Stop Time Status Last Admin Dose Admin Acetaminophen (Tylenol) 650 mg Q6H PRN ORAL Mild Pain (Pain Scale 1-3) 04/12/20 02:45 05/12/20 02:44 04/27/20 16:23 Acetaminophen (Tylenol) 650 mg Q6H PRN ORAL FEVER 04/12/20 16:30 05/12/20 16:29 04/27/20 00:38 Acetaminophen/ Hydrocodone Bitart ([place] 10/325) 1 tab Q6H PRN ORAL severe pain 04/28/20 16:17 05/05/20 16:16 05/03/20 06:49 Acetaminophen/ Hydrocodone Bitart ([place] 5/325) 1 tab Q6H PRN ORAL moderate pain 04/28/20 16:17 05/05/20 16:16 Allopurinol (allopurinoL) 300 mg DAILY ORAL 04/12/20 09:00 05/12/20 08:59 05/02/20 08:17 Ascorbic Acid (Vitamin C) 500 mg DAILY ORAL 04/26/20 09:00 05/26/20 08:59 05/02/20 08:17 Baclofen (Lioresal) 10 mg THREE TIMES A DAY ORAL 04/12/20 09:00 05/12/20 08:59 05/02/20 08:17 Chlorhexidine Gluconate (Christy-Hex 2%) 1 applic Q24H TOPIC 04/25/20 20:00 07/24/20 19:59 04/30/20 20:46 Docusate Sodium (Colace) 100 mg TWICE A DAY ORAL 04/27/20 09:00 05/20/20 08:59 05/01/20 17:33 Dronabinol (Marinol) 5 mg BID ORAL 05/01/20 09:00 07/30/20 08:59 05/02/20 17:20 Heparin Sodium (Porcine) (Heparin 5000 units/ml) 5,000 units EVERY 8 HOURS SUBQ 04/24/20 22:00 06/08/20 21:59 Lactulose (Cephulac) 20 gm THREE TIMES A DAY ORAL 04/21/20 13:00 05/21/20 12:59 05/01/20 17:34 Linaclotide (Linzess) 290 mcg BEFORE BREAKFAST ORAL 04/26/20 06:30 07/25/20 06:29 05/01/20 05:46 Magnesium Oxide (Mag-Ox 400mg) 400 mg THREE TIMES A DAY ORAL 04/30/20 13:00 05/30/20 12:59 05/02/20 17:20 Morphine Sulfate (Morphine Sulfate) 2 mg Q3H PRN IVP Severe Pain (Pain Scale 7-10) 04/28/20 16:17 05/05/20 16:16 05/01/20 21:08 Morphine Sulfate (Morphine Sulfate) 4 mg Q3H PRN IVP SEVERE BREAKTHRU PAIN 04/28/20 16:18 05/05/20 16:17 Multivitamins (Multivitamins) 1 tab DAILY ORAL 04/26/20 09:00 05/26/20 08:59 05/02/20 08:17 Ondansetron HCl (Zofran) 4 mg Q6H PRN IVP Nausea & Vomiting 04/19/20 13:30 05/19/20 13:29 04/29/20 18:17 Polyethylene Glycol (Miralax) 17 gm DAILY ORAL 04/20/20 09:00 05/20/20 08:59 05/01/20 08:25 Assessment/Plan Assessment/Plan 1. COVID-19 infection - COVID-19 PCR 04/21 positive: cont isolation - no indication for steroid or remdesivir given her normoxemia at this time - s/p cefepime - CXR with diffuse non-specific inflammatory/infectious process - cont supplemental oxygen as needed; currently saturating well on 2L NC - CT A/P/C - no obvious pna or abscess, cultures negative 2. Immunocompromised state with history of non-Hodgkin lymphoma. - on chemo - h/o port line infection; s/p Vanco - to return to [facility] for further Tx 3. Fever; resolved - urine culture showed zee albicans - blood culture showed no growth 4. Hx of Hypertension. 5. Hx of gout. 6. Anemia - s/p pRBC 7. DVT ppx - on SCD 8. Low TSH; improving - Dr. Fermin following - no need for levothyroxine per Dr. Fermin 9. UTI - Urine Cx showed zee albicans - per nephro 10. Hypokalemia - potassium replaced per neprho 11. 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
[2020-05-03 09:19] LABS: BASOPHILS % (AUTO) 1.6 % (0.0-2.0); EOSINOPHILS % (AUTO) 6.2 % (0.0-3.0); HEMOGLOBIN 10.8 G/DL (12.0-16.0); LYMPHOCYTES % (AUTO) 13.3 % (20.0-45.0); MEAN CORPUSCULAR VOLUME 82 FL (80-99); MONOCYTES % (AUTO) 7.1 % (1.0-10.0); NEUTROPHILS % (AUTO) 71.8 % (45.0-75.0); PLATELET COUNT 346 K/UL (150-450); RED CELL DISTRIBUTION WIDTH 19.7 % (11.6-14.8); WHITE BLOOD COUNT 3.6 K/UL (4.8-10.8)
[2020-05-03] MEDS: Ascorbic Acid 500mg tab ORAL SCH (09:41)
[2020-05-03] MEDS: Magnesium Oxide 400mg tab ORAL SCH ×3 (09:41→17:08)
[2020-05-03] MEDS: Docusate 100mg cap ORAL SCH ×2 (09:42→17:08)
[2020-05-03] MEDS: Dronabinol 2.5mg Cap ORAL SCH ×2 (09:42→17:08)
[2020-05-03 09:45] LABS: ANION GAP 8 mmol/L (5-15); BLOOD UREA NITROGEN 5 mg/dL (7-18); CALCIUM 9.7 MG/DL (8.5-10.1); CARBON DIOXIDE 31 MMOL/L (21-32); CHLORIDE 103 MMOL/L (98-107); CREATININE 0.8 MG/DL (0.55-1.30); POTASSIUM 3.4 MMOL/L (3.5-5.1); SODIUM 141 MMOL/L (136-145)
[2020-05-03 09:52] LABS: PHOSPHORUS 3.4 MG/DL (2.5-4.9)
--- NOTE | 2020-05-03 10:11 | Nephrology Progress Note ---
Assessment/Plan Plan #acute kidney injury likely due to vanco toxicity #hypokalemia- #hypomagnesemia #Acute on chronic anemia #h/p non- hodgkins lymphoma #possible sepsis #+ COVID #Femoral intertrochanteric hip fracture. - replete k and mag - Pulmonary eval - prbc transfusion prn - replete lytes - hemo-onc eval - ID eval - monitor CBC - avoid nephrotoxins - ortho eval - spine eval for L3 acute on chronic bone infarct, less likely neoplasm or infection? times spent 65 min Subjective ROS Limited/Unobtainable: No Subjective Cr better today mag and K low repleted hip fracture noted ortho consulted Impression: Minimal distention of the rectum with feces, could represent mild rectal fecal impaction. Equivocal slight thickening of the rectal wall and stranding of the perirectal fat, if real could indicate mild stercoral proctitis Comminuted fracture of the left femoral head, neck, and intertrochanteric region, ununited. Possibly acute, but abundant soft tissues surrounding the fracture area raises possibility that this could be chronic. Correlate with clinical findings Other findings as noted, including evidence of old T12 vertebral body compression fracture and prior vertebral augmentation procedure, Morales catheter, subcentimeter low-attenuation lesions which probably represent renal cysts, small sliding-type hiatal hernia Impression: Unusual signal abnormality of the posterolateral aspect of the L3 vertebral body on the right. This appears to be confined to the vertebral body m arrow space. Prior CT scan in retrospect demonstrates sclerotic areas in the same location. Most likely differential consideration is an atypical hemangioma. Other possibilities include acute on chronic bone infarct, less likely neoplasm or infection No other unusual contrast enhancement. No findings to suggest discitis or epidural abscess. Objective Objective Last 24 Hour Vital Signs Date Time Temp Pulse Resp B/P (MAP) Pulse Ox O2 Delivery O2 Flow Rate FiO2 05/03/20 08:00 98.1 102 20 103/66 (78) 99 05/03/20 07:19 98.1 05/03/20 04:00 98.1 91 20 118/67 (84) 100 05/03/20 01:19 97.9 05/03/20 00:00 97.9 94 20 111/73 (86) 100 05/02/20 21:00 Nasal Cannula 2.0 05/02/20 20:00 98.1 96 20 121/70 (87) 100 05/02/20 19:06 98.2 05/02/20 16:00 98.2 86 20 132/89 (103) 94 05/02/20 13:03 98.0 05/02/20 12:00 98.0 89 20 125/81 (96) 96 Intake and Output 05/02/20 05/03/20 18:59 06:59 Intake Total 1100 ml 360 ml Output Total 800 ml 1100 ml Balance 300 ml -740 ml Intake Oral 400 ml 360 ml Other 700 ml Output Urine Total 800 ml 1100 ml # Voids 1 Laboratory Tests 05/03/20 08:20: White Blood Count 3.6L, Red Blood Count 4.00L, Hemoglobin 10.8L, Hematocrit 33.0L, Mean Corpuscular Volume 82, Mean Corpuscular Hemoglobin 27.0, Mean Corpuscular Hemoglobin Concent 32.8, Red Cell Distribution Width 19.7H, Platelet Count 346, Mean Platelet Volume 6.0L, Neutrophils (%) (Auto) 71.8, Lymphocytes (%) (Auto) 13.3L, Monocytes (%) (Auto) 7.1, Eosinophils (%) (Auto) 6.2H, Basophils (%) (Auto) 1.6, Sodium Level 141, Potassium Level 3.4L, Chloride Level 103, Carbon Dioxide Level 31, Anion Gap 8, Blood Urea Nitrogen 5L, Creatinine 0.8, Estimat Glomerular Filtration Rate > 60, Glucose Level 110H, Calcium Level 9.7, Phosphorus Level 3.4, Magnesium Level 1.9 Height (Feet): 5 Height (Inches): 7.00 Weight (Pounds): 150 Objective General Appearance: no apparent distress EENT: PERRL/EOMI Neck: non-tender, normal alignment Cardiovascular: normal peripheral pulses, normal rate Respiratory/Chest: chest wall non-tender, lungs clear Abdomen: normal bowel sounds, non tender Neurologic: alert, oriented x 3 Kallie Dykes M.D. May 03, 2020 10:11
[2020-05-03 12:00] VITALS: BP 101/81
--- NOTE | 2020-05-03 12:50 | NUR ---
NURSE NOTES: Patient has been refusing Heparin and stool softeners, explained risk and benefits. Dr. Ríos aware. Will cont to monitor.
--- NOTE | 2020-05-03 14:34 | Discharge Summary ---
Discharge Summary Hospital Course Date of Admission Apr 11, 2020 at 21:32 Date of Discharge Admitting Diagnosis anemia HPI Daya Picharod is a 55 year old female who was admitted on Apr 11, 2020 at 21:32 for Anemia Hospital Course Summary: Patient has hx of Lymphoma, admitted for COVID and Sepsis related to a Port infection. She had the port removed, and Completed AB course. Regarding COVID, she never became frankly Hypoxic. [place] imaging did reveal a chronic left hip Fracture, but it was determined by Ortho she is not a good surgical candidate at this time. Recommended NWB of lower extremity. She also was tx for Anemia. She will be discharged to follow up with ongoing Chemo. See ortho as outpatient. Details of stay below: Assessment/Plan: #Hx of Sepsis 2' port infection #Sepsis due to COVID 19 pneumonia (febrile, tachycardic) #COVID 19+ #Continued fever of unknown origin. COVID vs. cancer related? - Afebrile past 5 days - CTM Fever curve. Could be due to underlying malignancy - f/u Blood/Urine cultures 04/26 for new FFWU - Prior Blood cultures NGTD - Repeat UA: negative - Repeat CXR: Bronchial thickening - CT C/A/P including CT angio to eval for PE. : reviewed. No PE. No obvious infection. Incidental left hip fracture - IV fluids as needed - D/W ID. - Port has been removed at [facility] - [facility] - ngtd - Cefepime (04/14 - 04/15) - Per patient she is to continue on Vancomycin till 04/25 - D/c vanc - ID Consult, appreciate recs - MRI C/T/L spine w/wo contrast to eval for abscess: No sign of infection, abscess or osteo, or Fx #L3 lesion on MRI: bone infarct vs. osteoid osteoma vs. less likely infection #Chronic LE weakness #s/p Laminectomy earlier in the year #Chronic Back pain > d/w radiology Dr. Hedrick - d/w ID, Neuro - outpatient f/u with spine surgeon: Dr. Nino in [facility] - appreciate neurology consult: Dr. Bajwa - PT when able - [place] 5/10 Q6hr PRN moderate to severe and IV Morphine for BTP #JIM, pre-renal vs. due to vanc toxicity - Resolved #Hypokalemia #Hypomagnesemia - likely from JIM recovery - IV Mg repletion - Urine Mg - f/u results > Vanc level 35 - urine lytes - MgOx oral supplementation - Nephrology on board: D/w Dr. hatch - Fluids per nephro #Hypothyroidism, suspect central given TSH and T4 both low - endocrinology consulted: Dr. Fermin to see - FSH #left hip fracture, suspect chronic > Patient states she fell 5 months ago but no recent falls. Also had hard fall on coccyx in 2018. Minimal pain in left hip > Patient states she has not walked for months but is not paraplegic. Severe debilitation. - appreciate ortho eval: Dr. Payan. Given patient bed bound risks > benefits. 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 History of lymphoma per patient and is receiving chemo tx, last known to be February 2020. - 2U PRBCs ordered and transfused on admission - 1 u PRBC given 04/26 - Hb Stable - Rectic count wnl, Iron and Iron sat low, Ferritin wnl - No active signs of bleeding - Hematology consulted, appreciate recs - CTM for signs of bleeding - Patient will need colonoscopy as outpatient in the future : Gi Consulted; Dr. Carter #sinus tachycardia, due to COVID pna - monitor EKG - Cardiology consulted: Dr. Wan #proctitis #Constipation- > improving - Aggressive bowel regimen - GI aware: Appreciate recommendations - Colace, miralax, - s/p enema and ducolax with improvement #chronic urinary retention - since patient had spine surgery earlier in the year - unsure if has true urinary retention - d/w nephrology -> voiding trial, however patient refused. #Hypokalemia #hypomagnesia - Lytes replaced - appreciate nephro management FENPPX DVTPPX: per primary. Consider changing to HSQ if Cr does not imrp Fluids: per nephro Diet: regular Lines: PIV PT/OT: pending Code status:Full Dispo: back to SNF Discharge Discharge Vital Signs Last Vital Signs Date Time Temp Pulse Resp B/P (MAP) Pulse Ox O2 Delivery O2 Flow Rate FiO2 05/03/20 13:26 96.6 05/03/20 12:00 89 20 101/81 (88) 98 05/03/20 09:00 Nasal Cannula 2.0 05/01/20 20:04 21 Discharge Disposition Patient was discharged to Neel[facility] Ríos D.O. May 03, 2020 14:34
--- NOTE | 2020-05-03 15:40 | Cardiac Electrophysiology PN ---
Assessment/Plan Assessment/Plan 1. Sinus tachycardia due to sepsis, anemia and COVID. Can not use beta-domenico as blood pressure is 100/70. 2. COVID pneumonia. 3. Hypokalemia. 4. Hypomagnesemia. 5. History of non-Hodgkin lymphoma. 6. Leukopenia and anemia. FU Dr. Valencia S/P PRBC 7. Fever. 8. Low Mg replaced DW RN DC today Subjective Subjective No events in Covid isolation. On 2 liter NC. No fever overnight. S/P PRBC for 7.6 Objective Last 24 Hour Vital Signs Date Time Temp Pulse Resp B/P (MAP) Pulse Ox O2 Delivery O2 Flow Rate FiO2 05/03/20 13:26 96.6 05/03/20 12:00 96.6 89 20 101/81 (88) 98 05/03/20 09:00 Nasal Cannula 2.0 05/03/20 08:00 98.1 102 20 103/66 (78) 99 05/03/20 07:19 98.1 05/03/20 04:00 98.1 91 20 118/67 (84) 100 05/03/20 01:19 97.9 05/03/20 00:00 97.9 94 20 111/73 (86) 100 05/02/20 21:00 Nasal Cannula 2.0 05/02/20 20:00 98.1 96 20 121/70 (87) 100 05/02/20 19:06 98.2 05/02/20 16:00 98.2 86 20 132/89 (103) 94 Intake and Output 05/02/20 05/03/20 19:00 07:00 Intake Total 1100 ml 360 ml Output Total 800 ml 1100 ml Balance 300 ml -740 ml Intake Oral 400 ml 360 ml Other 700 ml Output Urine Total 800 ml 1100 ml # Voids 1 Laboratory Tests Test 05/03/20 08:20 White Blood Count 3.6 K/UL (4.8-10.8) L Red Blood Count 4.00 M/UL (4.20-5.40) L Hemoglobin 10.8 G/DL (12.0-16.0) L Hematocrit 33.0 % (37.0-47.0) L Mean Corpuscular Volume 82 FL (80-99) Mean Corpuscular Hemoglobin 27.0 PG (27.0-31.0) Mean Corpuscular Hemoglobin Concent 32.8 G/DL (32.0-36.0) Red Cell Distribution Width 19.7 % (11.6-14.8) H Platelet Count 346 K/UL (150-450) Mean Platelet Volume 6.0 FL (6.5-10.1) L Neutrophils (%) (Auto) 71.8 % (45.0-75.0) Lymphocytes (%) (Auto) 13.3 % (20.0-45.0) L Monocytes (%) (Auto) 7.1 % (1.0-10.0) Eosinophils (%) (Auto) 6.2 % (0.0-3.0) H Basophils (%) (Auto) 1.6 % (0.0-2.0) Sodium Level 141 MMOL/L (136-145) Potassium Level 3.4 MMOL/L (3.5-5.1) L Chloride Level 103 MMOL/L (98-107) Carbon Dioxide Level 31 MMOL/L (21-32) Anion Gap 8 mmol/L (5-15) Blood Urea Nitrogen 5 mg/dL (7-18) L Creatinine 0.8 MG/DL (0.55-1.30) Estimat Glomerular Filtration Rate > 60 mL/min (>60) Glucose Level 110 MG/DL (74-106) H Calcium Level 9.7 MG/DL (8.5-10.1) Phosphorus Level 3.4 MG/DL (2.5-4.9) Magnesium Level 1.9 MG/DL (1.8-2.4) Objective HEAD AND NECK: No JVD. LUNGS: Coarse rhonchi. CARDIOVASCULAR: Regular S1 and S2 with no gallop or murmur. ABDOMEN: Soft. EXTREMITIES: No pitting edema. Ehsan Wan MD May 03, 2020 15:40
--- NOTE | 2020-05-03 15:44 | NUR ---
*-*DISCHARGE PLANNING*-* PATIENT HAS BEEN REFERRED BACK TO: [facility] P: [phone] PER [employer] EXP[employer]ER PLACED A CALL TO TO FACILITY AND WAS TOLD, THEY HAVE NO BED AVAILABLE.
--- NOTE | 2020-05-03 15:55 | NUR ---
MEDICAL SERVICES COORDINATOR NOTE DC ORDER TO SNF NOTED. S/W ALINE AT [facility]. PER MELISSA, UNABLE TO READMIT PATIENT AT THIS TIME. PATIENT WAS INITIALLY ADMITTED TO [facility] D/T COVID+ STATUS. PER TAIWO, SNF CAN ONLY ADMIT PATIENTS WITH ACTIVE COVID+. S/W SHA SOLIMAN AT [facility] [phone]. PER SHA, PATIENT CAN BE REFERRED TO ANY SNF UNDER [place] OR SNF CONTRACTED WITH [facility]. PATIENT REFERRED TO [facility]. S/W KEITH WHO INFORMED THERE ARE NO AVAILABLE BEDS AT THIS TIME.
--- NOTE | 2020-05-03 15:59 | NUR ---
CASE MANAGEMENT:REVIEW SI;COVID PNEUMONIA. HIP FRACTURE. 98.1 102 20 118/67 98% 2L NC K+ 3.4 IS;K-DUR PO ONCE MARINOL PO BID MAG-OX PO TID NORCO PO Q6 VIT C PO QD LACTULOSE PO TID TYLENOL PO Q6 PRN MED SURG STATUS DCP;FROM [facility] UNABLE TO READMIT AT THIS TIME WILL CONTINUE DC PLANNING TO CONTRACTED SNF
[2020-05-03 16:00] VITALS: BP 112/70
--- NOTE | 2020-05-03 19:09 | NUR ---
NURSE HAND-OFF: Important Events on Shift:[safety and comfort, pain management, monitoring labs, pending placement] Patient Status: [stable] Diet: [regular] Pending Orders: [] Pending Results/Labs:[] Pending MD notification:[] Latest Vital Signs: Temperature 97.8 , Pulse 83 , B/P 112 /70 , Respiratory Rate 20 , O2 SAT 98 , Nasal Cannula, O2 Flow Rate 2.0 . Vital Sign Comment: [] Latest [place] Fall Score: 55 Fall Risk: High Risk Safety Measures: Call light Within Reach, Bed Alarm Zone 1, Side Rails Side Rails x3, Bed position Low and Locked. Fall Precautions: Door Sign Patient Fall Education Report given to [REA Sandoval].
--- NOTE | 2020-05-03 19:35 | NUR ---
NURSE NOTES: received report from blanquita rn. patient on bed, awake . on NC at 2lpm, no sob. with complaints of pain, patient is aware of the next dose of pain medicine. with eaton care 16F draining well. with iv access on the left wrist, saline lock. reiterated to call and ask for assistance to prevent fall or injury. call light and light button within easy reach. bed locked and in lowest position. will continue plan of care.
[2020-05-03 20:00] VITALS: BP 106/67
[2020-05-03] MEDS: Dyna-Hex 2% Top Sol 2oz TOPIC SCH (20:00)
--- NOTE | 2020-05-03 21:00 | NUR ---
NURSE NOTES: patient refused to take heparin. explained risks and benefits. patient opted not to take it
--- NOTE | 2020-05-03 21:16 | General Progress Note ---
Subjective Date patient seen: May 03, 2020 Allergies: Coded Allergies: No Known Allergies (Unverified , 04/11/20) Subjective Was hoping to discharge patient today but she lost her bed at SNF. Have requested a PT eval; Also patient has several questions regarding her hip fracture, so have asked nursing to reach out to Dr. Payan to address patients questions, In the meantime, CM to work on new SNF in case patient cannot go [facility]. She is very deconditioned. Objective Last 24 Hour Vital Signs Date Time Temp Pulse Resp B/P (MAP) Pulse Ox O2 Delivery O2 Flow Rate FiO2 05/03/20 20:40 98 Nasal Cannula 2.0 28 05/03/20 16:16 97.8 05/03/20 16:00 97.8 83 20 112/70 (84) 98 05/03/20 13:26 96.6 05/03/20 12:00 96.6 89 20 101/81 (88) 98 05/03/20 09:00 Nasal Cannula 2.0 05/03/20 08:00 98.1 102 20 103/66 (78) 99 05/03/20 07:19 98.1 05/03/20 04:00 98.1 91 20 118/67 (84) 100 05/03/20 01:19 97.9 05/03/20 00:00 97.9 94 20 111/73 (86) 100 Intake and Output 05/02/20 05/03/20 19:00 07:00 Intake Total 1100 ml 360 ml Output Total 800 ml 1100 ml Balance 300 ml -740 ml Intake Oral 400 ml 360 ml Other 700 ml Output Urine Total 800 ml 1100 ml # Voids 1 Laboratory Tests 05/03/20 08:20: White Blood Count 3.6L, Red Blood Count 4.00L, Hemoglobin 10.8L, Hematocrit 33.0L, Mean Corpuscular Volume 82, Mean Corpuscular Hemoglobin 27.0, Mean Corpuscular Hemoglobin Concent 32.8, Red Cell Distribution Width 19.7H, Platelet Count 346, Mean Platelet Volume 6.0L, Neutrophils (%) (Auto) 71.8, Lymphocytes (%) (Auto) 13.3L, Monocytes (%) (Auto) 7.1, Eosinophils (%) (Auto) 6.2H, Basophils (%) (Auto) 1.6, Sodium Level 141, Potassium Level 3.4L, Chloride Level 103, Carbon Dioxide Level 31, Anion Gap 8, Blood Urea Nitrogen 5L, Creatinine 0.8, Estimat Glomerular Filtration Rate > 60, Glucose Level 110H, Calcium Level 9.7, Phosphorus Level 3.4, Magnesium Level 1.9 Height (Feet): 5 Height (Inches): 7.00 Weight (Pounds): 150 General Appearance: WD/WN, no apparent distress EENT: PERRL/EOMI Cardiovascular: normal rate, regular rhythm Respiratory/Chest: normal breath sounds, no respiratory distress Abdomen: non tender, soft Extremities: other - weak, cannot ambulate Neurologic: oriented x 3 Assessment/Plan Status: stable Assessment/Plan: Assessment/Plan: #Left Hip Fx; Likely Chronic Per Ortho, no immediate surgical indication, but will need OP f/u Confirm weight bearing recs for PT Patient would like plan confirmed for surgery prior to d/c given she is feeling very debilitated- F/U with ortho prior to d/c Pending placement vs Home w/ HH #Sepsis 2/2 PORT infection, S/P Port Removal -Resolved #COVID 19 pneumonia (febrile, tachycardic)-Currently saturating well on 2L NC Appreciate ID S/p Vanco and Cefepime Tx-Cultures noted Continue NC Support If she goes home, may need home 02; consider ABG but await PT eval #Lymphoma-was receiving Chemo--> Known mets to spine ( see MRI ) #Pancytopenia including Blood Transfusion Requiring Anemia --> S/P PRBC transfusions and Neupogen, likely related to chemo/marrow suppression #L3 Lesion on MRI Appreciate Oncology Appreciate Radiation Oncology Resume chemo as outpatient #JIM-Resolved #Hx of Urinary Retention Resolved w/ IVF #Hypothyroidism, suspect central given TSH and T4 both low Appreciate Endocrine Recs #Proctitis w/ Associated Constipation Appreciate GI Recommend outpatient [place] DVT/GI ppx Dispo: Pending PT eval; Home w/ HH vs SNF Neelam Ríos D.O. May 03, 2020 21:16
--- NOTE | 2020-05-03 22:14 | Neurology Progress Note ---
Interim History Interim History ROS Limited/Unobtainable: No Interim History pain better pending placement Objective Physical Exam Last Vital Signs Date Time Temp Pulse Resp B/P (MAP) Pulse Ox O2 Delivery O2 Flow Rate FiO2 05/03/20 20:40 98 Nasal Cannula 2.0 28 05/03/20 16:16 97.8 05/03/20 16:00 83 20 112/70 (84) Laboratory Tests Test 05/03/20 08:20 White Blood Count 3.6 K/UL (4.8-10.8) L Red Blood Count 4.00 M/UL (4.20-5.40) L Hemoglobin 10.8 G/DL (12.0-16.0) L Hematocrit 33.0 % (37.0-47.0) L Mean Corpuscular Volume 82 FL (80-99) Mean Corpuscular Hemoglobin 27.0 PG (27.0-31.0) Mean Corpuscular Hemoglobin Concent 32.8 G/DL (32.0-36.0) Red Cell Distribution Width 19.7 % (11.6-14.8) H Platelet Count 346 K/UL (150-450) Mean Platelet Volume 6.0 FL (6.5-10.1) L Neutrophils (%) (Auto) 71.8 % (45.0-75.0) Lymphocytes (%) (Auto) 13.3 % (20.0-45.0) L Monocytes (%) (Auto) 7.1 % (1.0-10.0) Eosinophils (%) (Auto) 6.2 % (0.0-3.0) H Basophils (%) (Auto) 1.6 % (0.0-2.0) Sodium Level 141 MMOL/L (136-145) Potassium Level 3.4 MMOL/L (3.5-5.1) L Chloride Level 103 MMOL/L (98-107) Carbon Dioxide Level 31 MMOL/L (21-32) Anion Gap 8 mmol/L (5-15) Blood Urea Nitrogen 5 mg/dL (7-18) L Creatinine 0.8 MG/DL (0.55-1.30) Estimat Glomerular Filtration Rate > 60 mL/min (>60) Glucose Level 110 MG/DL (74-106) H Calcium Level 9.7 MG/DL (8.5-10.1) Phosphorus Level 3.4 MG/DL (2.5-4.9) Magnesium Level 1.9 MG/DL (1.8-2.4) Impression/Recommendations Problems: (1) Anemia Status: stable Diagnostic Impression Chronic weakness, LE worse than UEs MRI spine noted, osteoma wo spine compression slplaminectomy COVID 19 pneumonia (febrile, tachycardic) Hx of Lymphoma cont medical support pain control PT as able Renny Bajwa MD May 03, 2020 22:14
[2020-05-04] VITALS (7 sets, daily range): BP systolic 105–154; BP diastolic 65–100
[2020-05-04] MEDS: HYDROcodone/Acetamin 10/325 tab ORAL PRN ×4 (01:55→22:12)
[2020-05-04] MEDS: Heparin 5000 units/ml inj SUBQ SCH ×3 (05:45→21:27)
--- NOTE | 2020-05-04 06:39 | Hematology/Onc Progress Note ---
Assessment/Plan Assessment/Plan # Leukopenia COVID19++++++++++ --> hep and hiv order as needed --> wbc 4-->3-->2.9->2->4.6--4.1-->3.6-->4.7-->3.6 --> Neupogen 300 x1 04/21 --> isolation if anc<500 # Non-Hodgkins Lymphoma is s/p chemotherapy in the past --> to return to [facility] for further treatment --> likely for ct/pet as outpatient --> CT Here shows no e/o disease --> imaging has been reviewed thus far --> end date of 04/2020 # Anemia likely of chronic disease -- does not appear to have iron deficiency --> transfuse as needed, tibc and ferritin are cw acd --> hgb 7.8-->8.6-->8.5-->8.4->7.6-->10-->9.9 --> no hemolysis is noted --> s/p transfusion on admission # Covid 19++ with SIRS (febrile, tachycardic) --> per pulm and id --> CXR with diffuse non-specific inflammatory/infectious process --> s/p Cefepime (04/14 - 04/15) # Hypokalemia # Hypomagnesia # Chronic Back pain # Full Code # Dvt ppx heparin sq Appreciate consultation and reagan Rn Subjective HEENT: Denies: no symptoms, eye pain, blurred vision, tearing, double vision, ear pain, ear discharge, nose pain, nose congestion, throat pain, throat swelling, mouth pain, mouth swelling, other Cardiovascular: Denies: no symptoms, chest pain, edema, irregular heart rate, lightheadedness, palpitations, syncope, other Respiratory: Denies: no symptoms, cough, shortness of breath, SOB with excertion, SOB at rest, sputum, wheezing, other Gastrointestinal/Abdominal: Denies: no symptoms, abdomen distended, abdominal pain, black stools, tarry stools, blood in stool, constipated, diarrhea, difficulty swallowing, nausea, poor appetite, poor fluid intake, rectal bleeding, vomiting, other Neurologic/Psychiatric: Denies: no symptoms, anxiety, depressed, emotional problems, headache, numbness, paresthesia, pre-existing deficit, seizure, tingling, tremors, weakness, other Endocrine: Denies: no symptoms, excessive sweating, flushing, intolerance to cold, intolerance to heat, increased hunger, increased thirst, increased urine, unexplained weight gain, unexplained weight loss, other Hematologic/Lymphatic: Denies: no symptoms, anemia, easy bleeding, easy bruising, adenopathy, other Allergies: Coded Allergies: No Known Allergies (Unverified , 04/11/20) Subjective 04/17 is on room air, more comfortable, potential dc to snf 04/18 labs reviewed, no bleeding, meds noted, no night sweats 04/19 sleeping comfortably, no major events, no night sweats 04/20 meds noted, labs reviewed, wbc 2.9, hep and hiv is neg 04/21 labs reviewed, in am, the wbc was 2, to get neupogen x 1 dose now 04/23 labs noted, no bleeding, wbc 4, hgb remains low, but holding off trans 04/24 labs are pending for am, meds reviewed, no bleeding 04/25 meds reviewed, labs noted, no night sweats, reagan rn at bedside, no new events 04/26 labs reviewed, meds noted, no bleeding, wbc 3, hgb 7.6 04/27 reagan rn at bedside, labs are noted, no bleeding, refusing heparin now sq 04/28 labs have been reviewed, is on room air, no bleeding, tachy 04/30 labs pending, no night sweats, meds reviewed, tachy, no night sweats, wants iv iron 05/01 dc planning, meds noted, for labs this am, no new events 05/02 meds reviewed, has been refusing care, continue heparin sq 05/03 labs reviewed, on 2lnc, no bleeding, remains on hep but refusing 05/04 meds ntoed, labs reviewed, no new changes, reagan RN Objective Objective Current Medications Medications (Trade) Dose Ordered Sig/Angelika Route PRN Reason Start Time Stop Time Status Last Admin Dose Admin Acetaminophen (Tylenol) 650 mg Q6H PRN ORAL Mild Pain (Pain Scale 1-3) 04/12/20 02:45 05/12/20 02:44 05/03/20 15:46 Acetaminophen (Tylenol) 650 mg Q6H PRN ORAL FEVER 04/12/20 16:30 05/12/20 16:29 04/27/20 00:38 Acetaminophen/ Hydrocodone Bitart ([place] 10/325) 1 tab Q6H PRN ORAL severe pain 04/28/20 16:17 05/05/20 16:16 05/04/20 01:55 Acetaminophen/ Hydrocodone Bitart ([place] 5/325) 1 tab Q6H PRN ORAL moderate pain 04/28/20 16:17 05/05/20 16:16 Allopurinol (allopurinoL) 300 mg DAILY ORAL 04/12/20 09:00 05/12/20 08:59 05/03/20 09:41 Ascorbic Acid (Vitamin C) 500 mg DAILY ORAL 04/26/20 09:00 05/26/20 08:59 05/03/20 09:41 Baclofen (Lioresal) 10 mg THREE TIMES A DAY ORAL 04/12/20 09:00 05/12/20 08:59 05/02/20 08:17 Chlorhexidine Gluconate (Christy-Hex 2%) 1 applic Q24H TOPIC 04/25/20 20:00 07/24/20 19:59 04/30/20 20:46 Docusate Sodium (Colace) 100 mg TWICE A DAY ORAL 04/27/20 09:00 05/20/20 08:59 05/03/20 17:08 Dronabinol (Marinol) 5 mg BID ORAL 05/01/20 09:00 07/30/20 08:59 05/03/20 17:08 Heparin Sodium (Porcine) (Heparin 5000 units/ml) 5,000 units EVERY 8 HOURS SUBQ 04/24/20 22:00 06/08/20 21:59 Lactulose (Cephulac) 20 gm THREE TIMES A DAY ORAL 04/21/20 13:00 05/21/20 12:59 05/01/20 17:34 Linaclotide (Linzess) 290 mcg BEFORE BREAKFAST ORAL 04/26/20 06:30 07/25/20 06:29 05/01/20 05:46 Magnesium Oxide (Mag-Ox 400mg) 400 mg THREE TIMES A DAY ORAL 04/30/20 13:00 05/30/20 12:59 05/03/20 17:08 Morphine Sulfate (Morphine Sulfate) 2 mg Q3H PRN IVP Severe Pain (Pain Scale 7-10) 04/28/20 16:17 05/05/20 16:16 05/01/20 21:08 Morphine Sulfate (Morphine Sulfate) 4 mg Q3H PRN IVP SEVERE BREAKTHRU PAIN 04/28/20 16:18 05/05/20 16:17 Multivitamins (Multivitamins) 1 tab DAILY ORAL 04/26/20 09:00 05/26/20 08:59 05/03/20 09:41 Ondansetron HCl (Zofran) 4 mg Q6H PRN IVP Nausea & Vomiting 04/19/20 13:30 05/19/20 13:29 04/29/20 18:17 Polyethylene Glycol (Miralax) 17 gm DAILY ORAL 04/20/20 09:00 05/20/20 08:59 05/01/20 08:25 Last 24 Hour Vital Signs Date Time Temp Pulse Resp B/P (MAP) Pulse Ox O2 Delivery O2 Flow Rate FiO2 05/04/20 04:00 97.5 83 19 113/74 (87) 98 05/04/20 02:25 97.5 05/04/20 00:00 97.5 96 19 111/65 (80) 100 05/03/20 22:57 97.8 05/03/20 21:00 Nasal Cannula 2.0 05/03/20 20:40 98 Nasal Cannula 2.0 28 05/03/20 20:00 97.9 95 19 106/67 (80) 100 05/03/20 16:16 97.8 05/03/20 16:00 97.8 83 20 112/70 (84) 98 05/03/20 13:26 96.6 05/03/20 12:00 96.6 89 20 101/81 (88) 98 05/03/20 09:00 Nasal Cannula 2.0 05/03/20 08:00 98.1 102 20 103/66 (78) 99 05/03/20 07:19 98.1 05/03/20 04:00 98.1 91 20 118/67 (84) 100 05/03/20 01:19 97.9 05/03/20 00:00 97.9 94 20 111/73 (86) 100 05/02/20 21:00 Nasal Cannula 2.0 05/02/20 20:00 98.1 96 20 121/70 (87) 100 05/02/20 19:06 98.2 05/02/20 16:00 98.2 86 20 132/89 (103) 94 05/02/20 13:03 98.0 05/02/20 12:00 98.0 89 20 125/81 (96) 96 05/02/20 09:00 Room Air 05/02/20 08:00 99.1 96 20 142/88 (106) 94 Intake and Output 05/03/20 05/04/20 19:00 07:00 Intake Total 1220 ml Output Total 820 ml 400 ml Balance 400 ml -400 ml Intake Oral 520 ml Other 700 ml Output Urine Total 820 ml 400 ml Labs Test 05/01/20 07:25 05/01/20 07:53 05/01/20 13:30 05/02/20 04:50 White Blood Count 4.9 K/UL (4.8-10.8) 3.6 K/UL (4.8-10.8) Red Blood Count 3.60 M/UL (4.20-5.40) 3.64 M/UL (4.20-5.40) Hemoglobin 9.7 G/DL (12.0-16.0) 9.9 G/DL (12.0-16.0) Hematocrit 29.4 % (37.0-47.0) 30.6 % (37.0-47.0) Mean Corpuscular Volume 82 FL (80-99) 84 FL (80-99) Mean Corpuscular Hemoglobin 27.1 PG (27.0-31.0) 27.3 PG (27.0-31.0) Mean Corpuscular Hemoglobin Concent 33.0 G/DL (32.0-36.0) 32.4 G/DL (32.0-36.0) Red Cell Distribution Width 18.1 % (11.6-14.8) 18.8 % (11.6-14.8) Platelet Count 300 K/UL (150-450) 317 K/UL (150-450) Mean Platelet Volume 5.5 FL (6.5-10.1) 6.1 FL (6.5-10.1) Neutrophils (%) (Auto) 73.6 % (45.0-75.0) 69.2 % (45.0-75.0) Lymphocytes (%) (Auto) 16.1 % (20.0-45.0) 15.6 % (20.0-45.0) Monocytes (%) (Auto) 6.7 % (1.0-10.0) 9.2 % (1.0-10.0) Eosinophils (%) (Auto) 2.6 % (0.0-3.0) 4.7 % (0.0-3.0) Basophils (%) (Auto) 1.0 % (0.0-2.0) 1.3 % (0.0-2.0) Phosphorus Level 3.6 MG/DL (2.5-4.9) Magnesium Level 1.0 MG/DL (1.8-2.4) 1.7 MG/DL (1.8-2.4) Sodium Level 143 MMOL/L (136-145) Potassium Level 2.7 MMOL/L (3.5-5.1) Chloride Level 104 MMOL/L (98-107) Carbon Dioxide Level 30 MMOL/L (21-32) Anion Gap 8 mmol/L (5-15) Blood Urea Nitrogen 3 mg/dL (7-18) Creatinine 0.7 MG/DL (0.55-1.30) Estimat Glomerular Filtration Rate > 60 mL/min (>60) Glucose Level 82 MG/DL (74-106) Calcium Level 8.6 MG/DL (8.5-10.1) Test 05/03/20 08:20 White Blood Count 3.6 K/UL (4.8-10.8) Red Blood Count 4.00 M/UL (4.20-5.40) Hemoglobin 10.8 G/DL (12.0-16.0) Hematocrit 33.0 % (37.0-47.0) Mean Corpuscular Volume 82 FL (80-99) Mean Corpuscular Hemoglobin 27.0 PG (27.0-31.0) Mean Corpuscular Hemoglobin Concent 32.8 G/DL (32.0-36.0) Red Cell Distribution Width 19.7 % (11.6-14.8) Platelet Count 346 K/UL (150-450) Mean Platelet Volume 6.0 FL (6.5-10.1) Neutrophils (%) (Auto) 71.8 % (45.0-75.0) Lymphocytes (%) (Auto) 13.3 % (20.0-45.0) Monocytes (%) (Auto) 7.1 % (1.0-10.0) Eosinophils (%) (Auto) 6.2 % (0.0-3.0) Basophils (%) (Auto) 1.6 % (0.0-2.0) Sodium Level 141 MMOL/L (136-145) Potassium Level 3.4 MMOL/L (3.5-5.1) Chloride Level 103 MMOL/L (98-107) Carbon Dioxide Level 31 MMOL/L (21-32) Anion Gap 8 mmol/L (5-15) Blood Urea Nitrogen 5 mg/dL (7-18) Creatinine 0.8 MG/DL (0.55-1.30) Estimat Glomerular Filtration Rate > 60 mL/min (>60) Glucose Level 110 MG/DL (74-106) Calcium Level 9.7 MG/DL (8.5-10.1) Phosphorus Level 3.4 MG/DL (2.5-4.9) Magnesium Level 1.9 MG/DL (1.8-2.4) Height (Feet): 5 Height (Inches): 7.00 Weight (Pounds): 150 Objective Gen: nad Pulm: ctab, no cwr CV: rrr Abd: soft, nt Ext: no cce Martinez Hill MD May 04, 2020 06:39
--- NOTE | 2020-05-04 06:47 | NUR ---
NURSE HAND-OFF: Important Events on Shift: pain mngt; refused heparin and stool softener Patient Status: stable Diet: regular Pending Orders: Pending Results/Labs: Pending MD notification: Latest Vital Signs: Temperature 97.5 , Pulse 83 , B/P 113 /74 , Respiratory Rate 19 , O2 SAT 98 , Nasal Cannula, O2 Flow Rate 2.0 . Vital Sign Comment: Latest [place] Fall Score: 55 Fall Risk: High Risk Safety Measures: Call light Within Reach, Bed Alarm Zone 1, Side Rails Side Rails x3, Bed position Low and Locked. Fall Precautions: Door Sign Patient Fall Education Addendum: 05/04/20 at 07 by Ale Nunez RN HAND-OFF: Report given to kris ashby. Addendum: 05/04/20 at 0725 by Ale Nunez RN HAND-OFF: Report given to kris ashby.
--- NOTE | 2020-05-04 07:37 | NUR ---
NURSE NOTES: Received report from REA Sandoval. Patient observed to be alert, awake, and oriented x4. Currently on 2L NC no s/sx of SOB/Distress, no c/o any pain or discomfort at this time. On contact and droplet iso for (+) covid. IV site located on LW 22 line asymptomatic, inplace and intact. Morales cath running well. Bed placed on lowest and locked, call light placed within reach and will continue to monitor for any changes in patient's condition.
[2020-05-04 07:45] LABS: EOSINOPHILS % (AUTO) 5.9 % (0.0-3.0); HEMATOCRIT 31.1 % (37.0-47.0); HEMOGLOBIN 9.2 G/DL (12.0-16.0); LYMPHOCYTES % (AUTO) 11.7 % (20.0-45.0); MEAN CORPUSCULAR VOLUME 91 FL (80-99); MONOCYTES % (AUTO) 10.6 % (1.0-10.0); NEUTROPHILS % (AUTO) 69.8 % (45.0-75.0); PLATELET COUNT 334 K/UL (150-450); RED CELL DISTRIBUTION WIDTH 18.5 % (11.6-14.8); WHITE BLOOD COUNT 4.1 K/UL (4.8-10.8)
[2020-05-04 08:24] LABS: ALANINE AMINOTRANSFERASE 8 U/L (12-78); ALBUMIN 2.7 G/DL (3.4-5.0); ALKALINE PHOSPHATASE 145 U/L (46-116); ANION GAP 2 mmol/L (5-15); ASPARTATE AMINO TRANSFERASE 25 U/L (15-37); BILIRUBIN,DIRECT 0.2 MG/DL (0.0-0.3); BILIRUBIN,TOTAL 0.6 MG/DL (0.2-1.0); BLOOD UREA NITROGEN 6 mg/dL (7-18); CALCIUM 9.4 MG/DL (8.5-10.1); CARBON DIOXIDE 33 MMOL/L (21-32); CHLORIDE 106 MMOL/L (98-107); CREATININE 0.6 MG/DL (0.55-1.30); PHOSPHORUS 3.4 MG/DL (2.5-4.9); POTASSIUM 4.5 MMOL/L (3.5-5.1); SODIUM 141 MMOL/L (136-145)
[2020-05-04] MEDS: Docusate 100mg cap ORAL SCH ×2 (09:00→17:19)
--- NOTE | 2020-05-04 09:19 | Nephrology Progress Note ---
Assessment/Plan Plan #acute kidney injury likely due to vanco toxicity #hypokalemia- #hypomagnesemia #Acute on chronic anemia #h/p non- hodgkins lymphoma #possible sepsis #+ COVID #Femoral intertrochanteric hip fracture. - replete k and mag - Pulmonary eval - prbc transfusion prn - replete lytes - hemo-onc eval - ID eval - monitor CBC - avoid nephrotoxins - ortho eval - spine eval for L3 acute on chronic bone infarct, less likely neoplasm or infection? times spent 65 min Subjective ROS Limited/Unobtainable: Yes Subjective Cr better today mag and K low repleted hip fracture noted ortho consulted Impression: Minimal distention of the rectum with feces, could represent mild rectal fecal impaction. Equivocal slight thickening of the rectal wall and stranding of the perirectal fat, if real could indicate mild stercoral proctitis Comminuted fracture of the left femoral head, neck, and intertrochanteric region, ununited. Possibly acute, but abundant soft tissues surrounding the fracture area raises possibility that this could be chronic. Correlate with clinical findings Other findings as noted, including evidence of old T12 vertebral body compression fracture and prior vertebral augmentation procedure, Morales catheter, subcentimeter low-attenuation lesions which probably represent renal cysts, small sliding-type hiatal hernia Impression: Unusual signal abnormality of the posterolateral aspect of the L3 vertebral body on the right. This appears to be confined to the vertebral body marrow space. Prior CT scan in retrospect demonstrates sclerotic areas in the same location. Most likely differential consideration is an atypical hemangioma. Other possibilities include acute on chronic bone infarct, less likely neoplasm or infection No other unusual contrast enhancement. No findings to suggest discitis or epidural abscess. Objective Objective Last 24 Hour Vital Signs Date Time Temp Pulse Resp B/P (MAP) Pulse Ox O2 Delivery O2 Flow Rate FiO2 05/04/20 04:00 97.5 83 19 113/74 (87) 98 05/04/20 02:25 97.5 05/04/20 00:00 97.5 96 19 111/65 (80) 100 05/03/20 22:57 97.8 05/03/20 21:00 Nasal Cannula 2.0 05/03/20 20:40 98 Nasal Cannula 2.0 28 05/03/20 20:00 97.9 95 19 106/67 (80) 100 05/03/20 16:16 97.8 05/03/20 16:00 97.8 83 20 112/70 (84) 98 05/03/20 13:26 96.6 05/03/20 12:00 96.6 89 20 101/81 (88) 98 Intake and Output 05/03/20 05/04/20 19:00 07:00 Intake Total 1220 ml Output Total 820 ml 400 ml Balance 400 ml -400 ml Intake Oral 520 ml Other 700 ml Output Urine Total 820 ml 400 ml Laboratory Tests 05/04/20 06:10: White Blood Count 4.1L, Red Blood Count 3.40L, Hemoglobin 9.2L, Hematocrit 31.1L , Mean Corpuscular Volume 91#, Mean Corpuscular Hemoglobin 27.1, Mean Corpuscular Hemoglobin Concent 29.6L, Red Cell Distribution Width 18.5H, Platelet Count 334, Mean Platelet Volume 5.9L, Neutrophils (%) (Auto) 69.8, Lymphocytes (%) (Auto) 11.7L, Monocytes (%) (Auto) 10.6H, Eosinophils (%) (Auto) 5.9H, Basophils (%) (Auto) 2.0, Sodium Level 141, Potassium Level 4.5, Chloride Level 106, Carbon Dioxide Level 33H, Anion Gap 2L, Blood Urea Nitrogen 6L, Creatinine 0.6, Estimat Glomerular Filtration Rate > 60, Glucose Level 77, Calcium Level 9.4, Phosphorus Level 3.4, Magnesium Level 1.4L, Total Bilirubin 0.6, Direct Bilirubin 0.2, Aspartate Amino Transf (AST/SGOT) 25, Alanine Aminotransferase (ALT/SGPT) 8L, Alkaline Phosphatase 145H, Total Protein 5.9L, Albumin 2.7L Height (Feet): 5 Height (Inches): 7.00 Weight (Pounds): 150 Objective General Appearance: no apparent distress EENT: PERRL/EOMI Neck: non-tender, normal alignment Cardiovascular: normal peripheral pulses, normal rate Respiratory/Chest: chest wall non-tender, lungs clear Abdomen: normal bowel sounds, non tender Neurologic: alert, oriented x 3 Kallie Dykes M.D. May 04, 2020 09:19
[2020-05-04] MEDS: Lactulose 20gm/30ml UDC ORAL SCH ×3 (09:30→17:18)
[2020-05-04] MEDS: Ascorbic Acid 500mg tab ORAL SCH (09:31)
[2020-05-04] MEDS: Dronabinol 2.5mg Cap ORAL SCH ×2 (09:31→17:49)
[2020-05-04] MEDS: Miralax 17gm pkt ORAL SCH (09:31)
[2020-05-04] MEDS: Magnesium Oxide 400mg tab ORAL SCH ×3 (09:31→17:49)
--- NOTE | 2020-05-04 09:32 | General Progress Note ---
Subjective ROS Limited/Unobtainable: Yes Allergies: Coded Allergies: No Known Allergies (Unverified , 04/11/20) Objective Last 24 Hour Vital Signs Date Time Temp Pulse Resp B/P (MAP) Pulse Ox O2 Delivery O2 Flow Rate FiO2 05/04/20 04:00 97.5 83 19 113/74 (87) 98 05/04/20 02:25 97.5 05/04/20 00:00 97.5 96 19 111/65 (80) 100 05/03/20 22:57 97.8 05/03/20 21:00 Nasal Cannula 2.0 05/03/20 20:40 98 Nasal Cannula 2.0 28 05/03/20 20:00 97.9 95 19 106/67 (80) 100 05/03/20 16:16 97.8 05/03/20 16:00 97.8 83 20 112/70 (84) 98 05/03/20 13:26 96.6 05/03/20 12:00 96.6 89 20 101/81 (88) 98 Intake and Output 05/03/20 05/04/20 19:00 07:00 Intake Total 1220 ml Output Total 820 ml 400 ml Balance 400 ml -400 ml Intake Oral 520 ml Other 700 ml Output Urine Total 820 ml 400 ml Laboratory Tests 05/04/20 06:10: White Blood Count 4.1L, Red Blood Count 3.40L, Hemoglobin 9.2L, Hematocrit 31.1L , Mean Corpuscular Volume 91#, Mean Corpuscular Hemoglobin 27.1, Mean Corpuscular Hemoglobin Concent 29.6L, Red Cell Distribution Width 18.5H, Platelet Count 334, Mean Platelet Volume 5.9L, Neutrophils (%) (Auto) 69.8, Lymphocytes (%) (Auto) 11.7L, Monocytes (%) (Auto) 10.6H, Eosinophils (%) (Auto) 5.9H, Basophils (%) (Auto) 2.0, Sodium Level 141, Potassium Level 4.5, Chloride Level 106, Carbon Dioxide Level 33H, Anion Gap 2L, Blood Urea Nitrogen 6L, Creatinine 0.6, Estimat Glomerular Filtration Rate > 60, Glucose Level 77, Calcium Level 9.4, Phosphorus Level 3.4, Magnesium Level 1.4L, Total Bilirubin 0.6, Direct Bilirubin 0.2, Aspartate Amino Transf (AST/SGOT) 25, Alanine Aminotransferase (ALT/SGPT) 8L, Alkaline Phosphatase 145H, Total Protein 5.9L, Albumin 2.7L Height (Feet): 5 Height (Inches): 7.00 Weight (Pounds): 150 General Appearance: alert EENT: PERRL/EOMI Neck: supple Cardiovascular: normal rate Respiratory/Chest: decreased breath sounds Abdomen: normal bowel sounds, non tender, soft Extremities: non-tender Assessment/Plan Status: stable Assessment/Plan: iron def anemia mild elevated CEA lymphoma on chemo covid positive neg stool ob iv iron fu H&H needs out patient fu for colonoscopy fu oncology CT reviewed colace miralax lactulose tammy [place] MVI replace mag vit c Patrick Carter MD May 04, 2020 09:32
--- NOTE | 2020-05-04 12:56 | NUR ---
DISCHARGE PLANNING PATIENT HAS BEEN REFERRED TO THE FOLLOWING: [facility] [phone] F [phone] [facility] P [phone] F [phone] [facility] P [phone] F [phone] [facility] P [phone] F [phone] [facility] P [phone] F [phone] [facility] P [phone] F [phone] [place] P [phone] F [phone] [facility] [phone] F [phone] [facility] P [phone] F [phone] [place] P [phone] F [phone]
--- NOTE | 2020-05-04 13:06 | NUR ---
CASE MANAGEMENT:REVIEW SI;COVID PNEUMONIA. HIP FRACTURE. 97.5 96 21 154/100 98% 2L NC FIO2 28% H/H 9.2/31.1 AMG 1.4 A;[ 145 ALB 2.7 IS;MAG SULFATE PO BID MAG OX PO TID NORCO PO Q6 PRN VIT C PO QD HEPARIN SQ Q12 LACTULOSE PO TID LINZESS PO QD MED SURG STATUS DCP;PENDING SNF PLACEMENT PATIENT HAS BEEN REFERRED [facility]
[2020-05-04] MEDS: Fluconazole 100mg tab ORAL SCH (14:41)
--- NOTE | 2020-05-04 16:13 | Pulmonology Progress Note ---
Subjective ROS Limited/Unobtainable: Yes Interval Events: None new Constitutional: Reports: fatigue HEENT: Repors: no symptoms Respiratory: Reports: no symptoms, dry cough Cardiovascular: Reports: no symptoms Gastrointestinal/Abdominal: Denies: nausea, vomiting, diarrhea Psychiatric: Denies: depression Skin: Denies: rash Musculoskeletal: Denies: pain Allergies: Coded Allergies: No Known Allergies (Unverified , 04/11/20) Objective Last 24 Hour Vital Signs Date Time Temp Pulse Resp B/P (MAP) Pulse Ox O2 Delivery O2 Flow Rate FiO2 05/04/20 12:00 97.3 96 20 129/83 (98) 100 05/04/20 09:34 99 Nasal Cannula 2.0 28 05/04/20 09:00 Nasal Cannula 2.0 05/04/20 08:00 97.5 91 21 154/100 (118) 98 05/04/20 04:00 97.5 83 19 113/74 (87) 98 05/04/20 02:25 97.5 05/04/20 00:00 97.5 96 19 111/65 (80) 100 05/03/20 22:57 97.8 05/03/20 21:00 Nasal Cannula 2.0 05/03/20 20:40 98 Nasal Cannula 2.0 28 05/03/20 20:00 97.9 95 19 106/67 (80) 100 05/03/20 16:16 97.8 Intake and Output 05/03/20 05/04/20 19:00 07:00 Intake Total 1220 ml Output Total 820 ml 400 ml Balance 400 ml -400 ml Intake Oral 520 ml Other 700 ml Output Urine Total 820 ml 400 ml Objective no change 05/03 no change; AM labs unavailable 05/02 on and off 2 L NC; NAD 05/01 no change 04/28 on and off 1 L NC; NAD 04/27 on and off 1 L NC; NAD 04/26 still on 1 L NC; NAD 04/25 no change respiratory-salomon 04/24 no change 04/23 on and off 1 lpm NC 04/22 saturating well on and off 1 lpm NC 04/21 no change 04/20 pt saturating well on 2 lpm NC; NAD 04/19 pt saturating well on 2 lpm NC; NAD 04/18 pt saturating well on 2 lpm NC General Appearance: WD/WN, no acute distress HEENT: normocephalic, atraumatic Respiratory: lungs clear Cardiovascular: normal rate, regular rhythm Abdomen: soft, non tender Genitourinary: other - Morales Extremities: no edema Laboratory Tests 05/04/20 06:10: White Blood Count 4.1L, Red Blood Count 3.40L, Hemoglobin 9.2L, Hematocrit 31.1L , Mean Corpuscular Volume 91#, Mean Corpuscular Hemoglobin 27.1, Mean Corpuscular Hemoglobin Concent 29.6L, Red Cell Distribution Width 18.5H, Platelet Count 334, Mean Platelet Volume 5.9L, Neutrophils (%) (Auto) 69.8, Lymphocytes (%) (Auto) 11.7L, Monocytes (%) (Auto) 10.6H, Eosinophils (%) (Auto) 5.9H, Basophils (%) (Auto) 2.0, Sodium Level 141, Potassium Level 4.5, Chloride Level 106, Carbon Dioxide Level 33H, Anion Gap 2L, Blood Urea Nitrogen 6L, Creatinine 0.6, Estimat Glomerular Filtration Rate > 60, Glucose Level 77, Calcium Level 9.4, Phosphorus Level 3.4, Magnesium Level 1.4L, Total Bilirubin 0.6, Direct Bilirubin 0.2, Aspartate Amino Transf (AST/SGOT) 25, Alanine Aminotransferase (ALT/SGPT) 8L, Alkaline Phosphatase 145H, Total Protein 5.9L, Albumin 2.7L Current Medications Medications (Trade) Dose Ordered Sig/Angelika Route PRN Reason Start Time Stop Time Status Last Admin Dose Admin Acetaminophen (Tylenol) 650 mg Q6H PRN ORAL Mild Pain (Pain Scale 1-3) 04/12/20 02:45 05/12/20 02:44 05/03/20 15:46 Acetaminophen (Tylenol) 650 mg Q6H PRN ORAL FEVER 04/12/20 16:30 05/12/20 16:29 04/27/20 00:38 Acetaminophen/ Hydrocodone Bitart ([place] 10/325) 1 tab Q6H PRN ORAL severe pain 04/28/20 16:17 05/05/20 16:16 05/04/20 16:00 Acetaminophen/ Hydrocodone Bitart ([place] 5/325) 1 tab Q6H PRN ORAL moderate pain 04/28/20 16:17 05/05/20 16:16 Allopurinol (allopurinoL) 300 mg DAILY ORAL 04/12/20 09:00 05/12/20 08:59 05/04/20 09:31 Ascorbic Acid (Vitamin C) 500 mg DAILY ORAL 04/26/20 09:00 05/26/20 08:59 05/04/20 09:31 Baclofen (Lioresal) 10 mg THREE TIMES A DAY ORAL 04/12/20 09:00 05/12/20 08:59 05/04/20 09:31 Chlorhexidine Gluconate (Christy-Hex 2%) 1 applic Q24H TOPIC 04/25/20 20:00 07/24/20 19:59 04/30/20 20:46 Docusate Sodium (Colace) 100 mg TWICE A DAY ORAL 04/27/20 09:00 05/20/20 08:59 05/03/20 17:08 Dronabinol (Marinol) 5 mg BID ORAL 05/01/20 09:00 07/30/20 08:59 05/04/20 09:31 Fluconazole (Diflucan) 200 mg DAILY ORAL 05/04/20 14:00 05/09/20 13:59 05/04/20 14:41 Heparin Sodium (Porcine) (Heparin 5000 units/ml) 5,000 units EVERY 8 HOURS SUBQ 04/24/20 22:00 06/08/20 21:59 05/04/20 14:43 Lactulose (Cephulac) 20 gm THREE TIMES A DAY ORAL 04/21/20 13:00 05/21/20 12:59 05/04/20 09:30 Linaclotide (Linzess) 290 mcg BEFORE BREAKFAST ORAL 04/26/20 06:30 07/25/20 06:29 05/01/20 05:46 Magnesium Oxide (Mag-Ox 400mg) 400 mg THREE TIMES A DAY ORAL 04/30/20 13:00 05/30/20 12:59 05/04/20 14:41 Morphine Sulfate (Morphine Sulfate) 2 mg Q3H PRN IVP Severe Pain (Pain Scale 7-10) 04/28/20 16:17 05/05/20 16:16 05/01/20 21:08 Morphine Sulfate (Morphine Sulfate) 4 mg Q3H PRN IVP SEVERE BREAKTHRU PAIN 04/28/20 16:18 05/05/20 16:17 Multivitamins (Multivitamins) 1 tab DAILY ORAL 04/26/20 09:00 05/26/20 08:59 05/04/20 09:31 Ondansetron HCl (Zofran) 4 mg Q6H PRN IVP Nausea & Vomiting 04/19/20 13:30 05/19/20 13:29 04/29/20 18:17 Polyethylene Glycol (Miralax) 17 gm DAILY ORAL 04/20/20 09:00 05/20/20 08:59 05/04/20 09:31 Assessment/Plan Assessment/Plan 1. COVID-19 infection - COVID-19 PCR 04/21 positive: cont isolation - no indication for steroid or remdesivir given her normoxemia at this time - s/p cefepime - CXR with diffuse non-specific inflammatory/infectious process - cont supplemental oxygen as needed; currently saturating well on 2L NC - CT A/P/C - no obvious pna or abscess, cultures negative 2. Immunocompromised state with history of non-Hodgkin lymphoma. - on chemo - h/o port line infection; s/p Vanco - to return to [facility] for further Tx 3. Fever; resolved - urine culture showed zee albicans - blood culture showed no growth 4. Hx of Hypertension. 5. Hx of gout. 6. Anemia - s/p pRBC 7. DVT ppx - on SCD 8. Low TSH; improving - Dr. Fermin following - no need for levothyroxine per Dr. Fermin 9. UTI - Urine Cx showed zee albicans - per nephro 10. Hypokalemia - potassium replaced per neprho 11. 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
--- NOTE | 2020-05-04 18:06 | General Progress Note ---
Subjective Date patient seen: May 04, 2020 Allergies: Coded Allergies: No Known Allergies (Unverified , 04/11/20) Subjective Chart reviewed since last seen. Patient pending placement. Has not yet been accepted to a new facility. Continues to refuse DVT prophylactictic shots. Risks of DVT explained to patient at length. +UCx zee. Abx per ID. No fevers, chills, back pain, nausea or vomiting. Review of systems: Constitutional: Denies: chills, diaphoresis, malaise, weakness, + fever intermittent HEENT: Denies: eye pain, blurred vision, double vision, ear pain, nose pain, throat pain, Cardiovascular: Denies: chest pain, edema, lightheadedness, palpitations Respiratory: No sob, cough, milton Gastrointestinal/Abdominal: Denies: abdominal pain, black stools, blood in stool, constipation, diarrhea, nausea, poor fluid intake vomiting, other Genitourinary: Denies: burning, discharge, frequency, Neurologic/Psychiatric: Denies: headache, numbness, paresthesia, new weakness, other Endocrine: Denies: excessive sweating, flushing, intolerance to cold, MSK: denies joint pains, swelling, stiffness +back pain (improving) Hematologic/Lymphatic: Denies: anemia, easy bleeding, easy bruising, Objective Last 24 Hour Vital Signs Date Time Temp Pulse Resp B/P (MAP) Pulse Ox O2 Delivery O2 Flow Rate FiO2 05/04/20 12:00 97.3 96 20 129/83 (98) 100 05/04/20 09:34 99 Nasal Cannula 2.0 28 05/04/20 09:00 Nasal Cannula 2.0 05/04/20 08:00 97.5 91 21 154/100 (118) 98 05/04/20 04:00 97.5 83 19 113/74 (87) 98 05/04/20 02:25 97.5 05/04/20 00:00 97.5 96 19 111/65 (80) 100 05/03/20 22:57 97.8 05/03/20 21:00 Nasal Cannula 2.0 05/03/20 20:40 98 Nasal Cannula 2.0 28 05/03/20 20:00 97.9 95 19 106/67 (80) 100 Intake and Output 05/03/20 05/04/20 19:00 07:00 Intake Total 1220 ml Output Total 820 ml 400 ml Balance 400 ml -400 ml Intake Oral 520 ml Other 700 ml Output Urine Total 820 ml 400 ml Laboratory Tests 05/04/20 06:10: White Blood Count 4.1L, Red Blood Count 3.40L, Hemoglobin 9.2L, Hematocrit 31.1L , Mean Corpuscular Volume 91#, Mean Corpuscular Hemoglobin 27.1, Mean Corpuscular Hemoglobin Concent 29.6L, Red Cell Distribution Width 18.5H, Platelet Count 334, Mean Platelet Volume 5.9L, Neutrophils (%) (Auto) 69.8, Lymphocytes (%) (Auto) 11.7L, Monocytes (%) (Auto) 10.6H, Eosinophils (%) (Auto) 5.9H, Basophils (%) (Auto) 2.0, Sodium Level 141, Potassium Level 4.5, Chloride Level 106, Carbon Dioxide Level 33H, Anion Gap 2L, Blood Urea Nitrogen 6L, Creatinine 0.6, Estimat Glomerular Filtration Rate > 60, Glucose Level 77, Calcium Level 9.4, Phosphorus Level 3.4, Magnesium Level 1.4L, Total Bilirubin 0.6, Direct Bilirubin 0.2, Aspartate Amino Transf (AST/SGOT) 25, Alanine Aminotransferase (ALT/SGPT) 8L, Alkaline Phosphatase 145H, Total Protein 5.9L, Albumin 2.7L Height (Feet): 5 Height (Inches): 7.00 Weight (Pounds): 150 Objective General: WDWN female in NAD, A&O x 4 HEENT: Normocephalic cephalic atraumatic, pupils equal round reactive to light and accommodation, nares patent and no symmetrical, no tonsillar exudates, mucous membranes moist CV: Regular rate regular rhythm, no murmurs, rubs, or gallops + POrt site is C/d/i. Pulm: Lungs clear to auscultation bilaterally. No wheezes, rhonchi, or rales GI: Soft, nontender, nondistended, bowel sounds present + eaton in place, no suprapubic TTP Neuro: CN 2-12 intact bilaterally, no focal signs. Moving all extremities Ext: N+Trace LE edema and tenderness bilaterally Skin: no rashes lesions or ulcers Msk: Joints symmetrical in upper extremity and lower extremity bilaterally, no joint swelling. + left hip pain (slightly) + mid thoracic spinal back pain Lymph: No lymphadenopathy in upper extremity and lower extremity Assessment/Plan Status: stable Assessment/Plan: #Left Hip Fx; Likely Chronic > Patient states she fell 5 months ago but no recent falls. Also had hard fall on coccyx in 2018. Minimal pain in left hip > Patient states she has not walked for months but is not paraplegic. Severe debilitation. - appreciate ortho eval: Dr. Payan. Given patient bed bound risks > benefits. Outpatient consideration - [facility] -Per Ortho, no immediate surgical indication, but will need OP f/u -Confirm weight bearing recs for PT -Patient would like plan confirmed for surgery prior to d/c given she is feeling very debilitated- F/U with ortho -d/w Cardiology. Not a candidate for surgery right now. Outpatient follow up. -Pending placement vs Home w/ HH #Zee UTI - FLuconazole 200mg daily for 5 days (05/04 - ) - monitor QTC #LE edema/pain - venous duplex to rule out DVT - SCDs for DVT ppx if neg #Sepsis 2/2 PORT infection, S/P Port Removal -Resolved #COVID 19 pneumonia (febrile, tachycardic)-Currently saturating well on 2L NC -Appreciate ID -S/p Vanco and Cefepime Tx-Cultures noted -Continue NC Support -If she goes home, may need home 02; consider ABG but await PT eval #Lymphoma-was receiving Chemo--> Known mets to spine ( see MRI ) #Pancytopenia including Blood Transfusion Requiring Anemia --> S/P PRBC transfusions and Neupogen, likely related to chemo/marrow suppression #L3 Lesion on MRI -Appreciate Oncology -Appreciate Radiation Oncology -Resume chemo as outpatient #Hypothyroidism, suspect central given TSH and T4 both low -Appreciate Endocrine Recs -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 COVID vs. cancer related? - appears to have resolved - CTM Fever curve. Could be due to underlying malignancy - Repeat Blood cultures NGTD - Repeat UA: negative - Repeat CXR: Bronchial thickening - Check CT C/A/P including CT angio to eval for PE. : reviewed. No PE. No obvious infection. Incidental left hip fracture - IV fluids as needed - D/W ID. - Port has been removed at OSH - BC, UC - ngtd - Cefepime (04/14 - 04/15) - Per patient she is to continue on Vancomycin till 04/25 - D/c vanc - ID Consult, appreciate recs - MRI C/T/L spine w/wo contrast to eval for abscess: No sign of infection, abscess or osteo #JIM, pre-renal vs. due to vanc toxicity - resolved > Vanc level 35 - urine lytes - Nephrology on board: D/w Dr. hatch - Fluids per nephro #Hx of Lymphoma #leukopenia improving > S/p mets to spine s/p surgery earlier this year and XRT/Chemo > Last chemo in February 2020 - All information per patient - Oncology following, appreciate recs - Can continue current therapy with outpatient onc - No acute interventions needed inpatient - Neupogen x 1 04/21 #Acute blood loss anemia - resolving #anemia of chronic disease #Normocytic anemia Patient presented with Hb 6.7 with normal MCV. History of lymphoma per patient and is receiving chemo tx, last known to be February 2020. - 2U PRBCs ordered and transfused on admission - Hb Stable - Rectic count wnl, Iron and Iron sat low, Ferritin wnl - No active signs of bleeding - Hematology consulted, appreciate recs - CTM for signs of bleeding - Patient will need colonoscopy as outpatient in the future : Gi Consulted; Dr. Carter #sinus tachycardia, due to COVID pna - monitor EKG - Cardiology consulted: Dr. Wan #proctitis #Constipation- > improving - Aggressive bowel regimen - GI aware: Appreciate recommendations - Colace, miralax, - s/p enema and ducolax with improvement #chronic urinary retention - since patient had spine surgery earlier in the year - unsure if has true urinary retention - d/w nephrology -> voiding trial, however patient refused. #Hypokalemia #hypomagnesia - Lytes replaced - appreciate nephro management FENPPX DVTPPX: per primary. Patient refusing DVT ppx shots (risks of of refusal including life threatening blood clot and PE explained to patient but still wishes to refuse) Fluids: per nephro Diet: regular Lines: PIV PT/OT: pending Code status:Full Dispo: back to SNF Reason for Continued Hospitalization: hypoxia, fever Dispo - Discharge back to SNF. MIPS ([employer]it-based Incentive Payment System) Applicable CPT: 91762, 86052 CHECK ALL THAT ARE MET: [] Measure #5 (CHF): All ages. Prescribe LINDSAY/ARB upon discharge for patients with left ventricular systolic dysfunction. If not, the reason is clearly documented in the medical chart [] Measure #8 (CHF): All ages. Prescribe a beta domenico upon discharge for patients with left ventricular systolic dysfunction. If not, the reason is clearly documented in the medical chart. [x] Measure #47: Advance care plan or surrogate decision maker documented in the medical record. [x] Measure #130 The provider has documented, updated, or reviewed the patients current medication list and has documented it in the patients note. [] Measure #374 (All): Send report to referring provider. [] Measure #407(Sepsis due to MSSA bacteremia): Age 18+ Patient treated with a beta-lactam antibiotic (Nafcillin, Oxacillin or Cefazolin) as definitive thera py. MEDICAL COMPLEXITYHigh complexity medical decision making (need 2/3 categories)Problem - need 4 points [x]Acute/new problem with new plan for workup (4 points, 1 max) [] Acute/new problem without additional workup (3 points, 1 max) [] Unstable chronic problem actively being managed (2 point each, 2 max) [x] Stable chronic problem actively being managed (1 point each, 2 max) [x] Self-limited/transient process (constipation, muscle ache, etc) (1 point each, 2 max) Data - need 4 points [x] Reviewed labs/imaging studies (1 points, 2 max) [x] Independent review of imaging (EKG, xrays, etc) (2 points, 2 max) [x] Discussed case with consult/other MD/RN (2 points, 2 max) High Risk - qualify if have one of the following: [x] Severe exacerbation of acute problem, acute mental status change, IV narcotics, monitoring drug levels (vancomycin, INR, tacrolimus etc) I spent 36 minutes on this patient's case, and 22 mins was dedicated to counseling and/or care coordination. Discussed with nephrology,cardiology, RN at bedside. Time of note may not reflect time of encounter Jus Brunner D.O. 31, 2020 18:06
[2020-05-04] MEDS ORDERED: Morphine Sulfate 2mg/ml Inj(IV/IM USE ONLY) IVP PRN (19:17)
[2020-05-04] MEDS ORDERED: Morphine Sulfate 4mg/ml Inj (IV USE ONLY) IVP PRN (19:18)
--- NOTE | 2020-05-04 19:20 | NUR ---
NURSE NOTES: Received report from REA Ceron. Pt is awake, A&Ox4, call light within reach, bed locked and in lowest position, pt has no needs at this time. Will continue to monitor.
--- NOTE | 2020-05-04 19:29 | NUR ---
NURSE HAND-OFF: Important Events on Shift:COVID MONITORING, Mag So4 4 bags, EKG Patient Status: stable Diet: reg Pending Orders: VD bilateral legs Pending Results/Labs:n.a Pending MD notification:N/A Latest Vital Signs: Temperature 97.3 , Pulse 76 , B/P 139 /73 , Respiratory Rate 19 , O2 SAT 98 , Nasal Cannula, O2 Flow Rate 2.0 . Vital Sign Comment: Stable Latest [place] Fall Score: 55 Fall Risk: High Risk Safety Measures: Call light Within Reach, Bed Alarm Zone 1, Side Rails Side Rails x3, Bed position Low and Locked. Fall Precautions: Door Sign Patient Fall Education Report given to REA Kam.
[2020-05-04] MEDS: Dyna-Hex 2% Top Sol 2oz TOPIC SCH (20:00)
--- NOTE | 2020-05-04 20:03 | Cardiac Electrophysiology PN ---
Assessment/Plan Assessment/Plan 1. Sinus tachycardia due to sepsis, anemia and COVID. Can not use beta-domenico as blood pressure is 100/70. 2. COVID pneumonia. 3. Hypokalemia. 4. Hypomagnesemia. 5. History of non-Hodgkin lymphoma. 6. Leukopenia and anemia. FU Dr. Valencia S/P PRBC 7. Fever. 8. Low Mg replaced 9. Left Hip Fx; Likely Chronic > Patient states she fell 5 months ago but no recent falls. Also had hard fall o n coccyx in 2018. Minimal pain in left hip > Patient states she has not walked for months but is not paraplegic. Severe debilitation. - appreciate ortho eval: Dr. Payan. Given patient bed bound risks > benefits. Outpatient consideration - [facility] CHICAE LUKE RN DC today Subjective Subjective No events in Covid isolation. On 2 liter NC. No fever overnight. S/P PRBC for 7.6. Has Left hip Fx. Not scheduled for surgery yet Objective Last 24 Hour Vital Signs Date Time Temp Pulse Resp B/P (MAP) Pulse Ox O2 Delivery O2 Flow Rate FiO2 05/04/20 16:00 97.3 76 19 139/73 (95) 98 05/04/20 12:00 97.3 96 20 129/83 (98) 100 05/04/20 09:34 99 Nasal Cannula 2.0 28 05/04/20 09:00 Nasal Cannula 2.0 05/04/20 08:00 97.5 91 21 154/100 (118) 98 05/04/20 04:00 97.5 83 19 113/74 (87) 98 05/04/20 02:25 97.5 05/04/20 00:00 97.5 96 19 111/65 (80) 100 05/03/20 22:57 97.8 05/03/20 21:00 Nasal Cannula 2.0 05/03/20 20:40 98 Nasal Cannula 2.0 28 Intake and Output 05/03/20 05/04/20 19:00 07:00 Intake Total 1220 ml Output Total 820 ml 400 ml Balance 400 ml -400 ml Intake Oral 520 ml Other 700 ml Output Urine Total 820 ml 400 ml Laboratory Tests Test 05/04/20 06:10 White Blood Count 4.1 K/UL (4.8-10.8) L Red Blood Count 3.40 M/UL (4.20-5.40) L Hemoglobin 9.2 G/DL (12.0-16.0) L Hematocrit 31.1 % (37.0-47.0) L Mean Corpuscular Volume 91 FL (80-99) # Mean Corpuscular Hemoglobin 27.1 PG (27.0-31.0) Mean Corpuscular Hemoglobin Concent 29.6 G/DL (32.0-36.0) L Red Cell Distribution Width 18.5 % (11.6-14.8) H Platelet Count 334 K/UL (150-450) Mean Platelet Volume 5.9 FL (6.5-10.1) L Neutrophils (%) (Auto) 69.8 % (45.0-75.0) Lymphocytes (%) (Auto) 11.7 % (20.0-45.0) L Monocytes (%) (Auto) 10.6 % (1.0-10.0) H Eosinophils (%) (Auto) 5.9 % (0.0-3.0) H Basophils (%) (Auto) 2.0 % (0.0-2.0) Sodium Level 141 MMOL/L (136-145) Potassium Level 4.5 MMOL/L (3.5-5.1) Chloride Level 106 MMOL/L (98-107) Carbon Dioxide Level 33 MMOL/L (21-32) H Anion Gap 2 mmol/L (5-15) L Blood Urea Nitrogen 6 mg/dL (7-18) L Creatinine 0.6 MG/DL (0.55-1.30) Estimat Glomerular Filtration Rate > 60 mL/min (>60) Glucose Level 77 MG/DL (74-106) Calcium Level 9.4 MG/DL (8.5-10.1) Phosphorus Level 3.4 MG/DL (2.5-4.9) Magnesium Level 1.4 MG/DL (1.8-2.4) L Total Bilirubin 0.6 MG/DL (0.2-1.0) Direct Bilirubin 0.2 MG/DL (0.0-0.3) Aspartate Amino Transf (AST/SGOT) 25 U/L (15-37) Alanine Aminotransferase (ALT/SGPT) 8 U/L (12-78) L Alkaline Phosphatase 145 U/L (46-116) H Total Protein 5.9 G/DL (6.4-8.2) L Albumin 2.7 G/DL (3.4-5.0) L Objective HEAD AND NECK: No JVD. LUNGS: Coarse rhonchi. CARDIOVASCULAR: Regular S1 and S2 with no gallop or murmur. ABDOMEN: Soft. EXTREMITIES: No pitting edema. Ehsan Wan MD May 04, 2020 20:03
--- NOTE | 2020-05-04 20:23 | Neurology Progress Note ---
Interim History Interim History ROS Limited/Unobtainable: Yes Interim History pain better no new deficits Objective Physical Exam Last Vital Signs Date Time Temp Pulse Resp B/P (MAP) Pulse Ox O2 Delivery O2 Flow Rate FiO2 05/04/20 16:00 97.3 76 19 139/73 (95) 98 05/04/20 09:34 Nasal Cannula 2.0 28 Laboratory Tests Test 05/04/20 06:10 White Blood Count 4.1 K/UL (4.8-10.8) L Red Blood Count 3.40 M/UL (4.20-5.40) L Hemoglobin 9.2 G/DL (12.0-16.0) L Hematocrit 31.1 % (37.0-47.0) L Mean Corpuscular Volume 91 FL (80-99) # Mean Corpuscular Hemoglobin 27.1 PG (27.0-31.0) Mean Corpuscular Hemoglobin Concent 29.6 G/DL (32.0-36.0) L Red Cell Distribution Width 18.5 % (11.6-14.8) H Platelet Count 334 K/UL (150-450) Mean Platelet Volume 5.9 FL (6.5-10.1) L Neutrophils (%) (Auto) 69.8 % (45.0-75.0) Lymphocytes (%) (Auto) 11.7 % (20.0-45.0) L Monocytes (%) (Auto) 10.6 % (1.0-10.0) H Eosinophils (%) (Auto) 5.9 % (0.0-3.0) H Basophils (%) (Auto) 2.0 % (0.0-2.0) Sodium Level 141 MMOL/L (136-145) Potassium Level 4.5 MMOL/L (3.5-5.1) Chloride Level 106 MMOL/L (98-107) Carbon Dioxide Level 33 MMOL/L (21-32) H Anion Gap 2 mmol/L (5-15) L Blood Urea Nitrogen 6 mg/dL (7-18) L Creatinine 0.6 MG/DL (0.55-1.30) Estimat Glomerular Filtration Rate > 60 mL/min (>60) Glucose Level 77 MG/DL (74-106) Calcium Level 9.4 MG/DL (8.5-10.1) Phosphorus Level 3.4 MG/DL (2.5-4.9) Magnesium Level 1.4 MG/DL (1.8-2.4) L Total Bilirubin 0.6 MG/DL (0.2-1.0) Direct Bilirubin 0.2 MG/DL (0.0-0.3) Aspartate Amino Transf (AST/SGOT) 25 U/L (15-37) Alanine Aminotransferase (ALT/SGPT) 8 U/L (12-78) L Alkaline Phosphatase 145 U/L (46-116) H Total Protein 5.9 G/DL (6.4-8.2) L Albumin 2.7 G/DL (3.4-5.0) L Impression/Recommendations Problems: (1) Anemia Status: stable Diagnostic Impression Chronic weakness, LE worse than UEs MRI spine noted, osteoma wo spine compression slplaminectomy COVID 19 pneumonia (febrile, tachycardic) Hx of Lymphoma cont medical support pain control PT as able Renny Bajwa MD May 04, 2020 20:23
--- NOTE | 2020-05-04 21:45 | NUR ---
NURSE NOTES: Pt refused 2200 heparin, but agreed to 0600 heparin.
[2020-05-05] VITALS: BP 145/96
[2020-05-05] MEDS: HYDROcodone/Acetamin 5/325 tab ORAL PRN (02:25)
[2020-05-05 04:00] VITALS: BP 112/74
[2020-05-05] MEDS: Heparin 5000 units/ml inj SUBQ SCH ×4 (05:38→23:20)
[2020-05-05] MEDS: HYDROcodone/Acetamin 10/325 tab ORAL PRN ×3 (05:49→19:57)
--- NOTE | 2020-05-05 06:45 | Hematology/Onc Progress Note ---
Assessment/Plan Assessment/Plan # Leukopenia COVID19++++++++++ --> hep and hiv order as needed --> wbc 4-->3-->2.9->2->4.6--4.1-->3.6-->4.7-->3.6->4.1 --> Neupogen 300 x1 04/21 --> isolation if anc<500 # Non-Hodgkins Lymphoma is s/p chemotherapy in the past --> to return to [facility] for further treatment --> likely for ct/pet as outpatient --> CT Here shows no e/o disease --> imaging has been reviewed thus far --> end date of 04/2020 # Anemia likely of chronic disease -- does not appear to have iron deficiency --> transfuse as needed, tibc and ferritin are cw acd --> hgb 7.8-->8.6-->8.5-->8.4->7.6-->10-->9.9->9.6 --> no hemolysis is noted --> s/p transfusion on admission # Covid 19++ with SIRS (febrile, tachycardic) --> per pulm and id --> CXR with diffuse non-specific inflammatory/infectious process --> s/p Cefepime (04/14 - 04/15) # Hypokalemia # Hypomagnesia # Chronic Back pain # Full Code # Dvt ppx heparin sq Appreciate consultation and reagan Rn Subjective HEENT: Denies: no symptoms, eye pain, blurred vision, tearing, double vision, ear pain, ear discharge, nose pain, nose congestion, throat pain, throat swelling, mouth pain, mouth swelling, other Cardiovascular: Denies: no symptoms, chest pain, edema, irregular heart rate, lightheadedness, palpitations, syncope, other Respiratory: Denies: no symptoms, cough, shortness of breath, SOB with excertion, SOB at rest, sputum, wheezing, other Genitourinary: Denies: no symptoms, burning, discharge, frequency, flank pain, hematuria, incontinence, pain, urgency, other Neurologic/Psychiatric: Denies: no symptoms, anxiety, depressed, emotional pro blems, headache, numbness, paresthesia, pre-existing deficit, seizure, tingling, tremors, weakness, other Endocrine: Denies: no symptoms, excessive sweating, flushing, intolerance to cold, intolerance to heat, increased hunger, increased thirst, increased urine, unexplained weight gain, unexplained weight loss, other Allergies: Coded Allergies: No Known Allergies (Unverified , 04/11/20) Subjective 04/17 is on room air, more comfortable, potential dc to snf 04/18 labs reviewed, no bleeding, meds noted, no night sweats 04/19 sleeping comfortably, no major events, no night sweats 04/20 meds noted, labs reviewed, wbc 2.9, hep and hiv is neg 04/21 labs reviewed, in am, the wbc was 2, to get neupogen x 1 dose now 04/23 labs noted, no bleeding, wbc 4, hgb remains low, but holding off trans 04/24 labs are pending for am, meds reviewed, no bleeding 04/25 meds reviewed, labs noted, no night sweats, dw rn at bedside, no new events 04/26 labs reviewed, meds noted, no bleeding, wbc 3, hgb 7.6 04/27 dw rn at bedside, labs are noted, no bleeding, refusing heparin now sq 04/28 labs have been reviewed, is on room air, no bleeding, tachy 04/30 labs pending, no night sweats, meds reviewed, tachy, no night sweats, wants iv iron 05/01 dc planning, meds noted, for labs this am, no new events 05/02 meds reviewed, has been refusing care, continue heparin sq 05/03 labs reviewed, on 2lnc, no bleeding, remains on hep but refusing 05/04 meds ntoed, labs reviewed, no new changes, reagan RN 05/05 meds noted, no bleeding, labs reviewed, no f/c Objective Objective Current Medications Medications (Trade) Dose Ordered Sig/Angelika Route PRN Reason Start Time Stop Time Status Last Admin Dose Admin Acetaminophen (Tylenol) 650 mg Q6H PRN ORAL Mild Pain (Pain Scale 1-3) 04/12/20 02:45 05/12/20 02:44 05/03/20 15:46 Acetaminophen (Tylenol) 650 mg Q6H PRN ORAL FEVER 04/12/20 16:30 05/12/20 16:29 04/27/20 00:38 Acetaminophen/ Hydrocodone Bitart ([place] 10/325) 1 tab Q6H PRN ORAL severe pain 05/04/20 22:17 05/11/20 22:16 05/05/20 05:49 Acetaminophen/ Hydrocodone Bitart ([place] 5/325) 1 tab Q6H PRN ORAL moderate pain 05/04/20 18:30 05/11/20 18:29 05/05/20 02:25 Allopurinol (allopurinoL) 300 mg DAILY ORAL 04/12/20 09:00 05/12/20 08:59 05/04/20 09:31 Ascorbic Acid (Vitamin C) 500 mg DAILY ORAL 04/26/20 09:00 05/26/20 08:59 05/04/20 09:31 Baclofen (Lioresal) 10 mg THREE TIMES A DAY ORAL 04/12/20 09:00 05/12/20 08:59 05/04/20 09:31 Chlorhexidine Gluconate (Christy-Hex 2%) 1 applic Q24H TOPIC 04/25/20 20:00 07/24/20 19:59 04/30/20 20:46 Docusate Sodium (Colace) 100 mg TWICE A DAY ORAL 04/27/20 09:00 05/20/20 08:59 05/03/20 17:08 Dronabinol (Marinol) 5 mg BID ORAL 05/01/20 09:00 07/30/20 08:59 05/04/20 17:49 Fluconazole (Diflucan) 200 mg DAILY ORAL 05/04/20 14:00 05/09/20 13:59 05/04/20 14:41 Heparin Sodium (Porcine) (Heparin 5000 units/ml) 5,000 units EVERY 8 HOURS SUBQ 04/24/20 22:00 06/08/20 21:59 05/05/20 05:38 Lactulose (Cephulac) 20 gm THREE TIMES A DAY ORAL 04/21/20 13:00 05/21/20 12:59 05/04/20 09:30 Linaclotide (Linzess) 290 mcg BEFORE BREAKFAST ORAL 04/26/20 06:30 07/25/20 06:29 05/01/20 05:46 Magnesium Oxide (Mag-Ox 400mg) 400 mg THREE TIMES A DAY ORAL 04/30/20 13:00 05/30/20 12:59 05/04/20 17:49 Morphine Sulfate (Morphine Sulfate) 2 mg Q3H PRN IVP Severe Pain (Pain Scale 7-10) 05/04/20 19:17 05/11/20 19:16 Morphine Sulfate (Morphine Sulfate) 4 mg Q3H PRN IVP SEVERE BREAKTHRU PAIN 05/04/20 19:18 05/11/20 19:17 Multivitamins (Multivitamins) 1 tab DAILY ORAL 04/26/20 09:00 05/26/20 08:59 05/04/20 09:31 Ondansetron HCl (Zofran) 4 mg Q6H PRN IVP Nausea & Vomiting 04/19/20 13:30 05/19/20 13:29 04/29/20 18:17 Polyethylene Glycol (Miralax) 17 gm DAILY ORAL 04/20/20 09:00 05/20/20 08:59 05/04/20 09:31 Last 24 Hour Vital Signs Date Time Temp Pulse Resp B/P (MAP) Pulse Ox O2 Delivery O2 Flow Rate FiO2 05/05/20 04:00 97.8 95 17 112/74 (87) 99 05/05/20 00:00 98.1 82 18 145/96 (112) 96 05/04/20 21:00 Nasal Cannula 2.0 05/04/20 20:13 97 Nasal Cannula 2.0 28 05/04/20 20:00 98.4 102 18 105/69 (81) 98 05/04/20 16:00 97.3 76 19 139/73 (95) 98 05/04/20 12:00 97.3 96 20 129/83 (98) 100 05/04/20 09:34 99 Nasal Cannula 2.0 28 05/04/20 09:00 Nasal Cannula 2.0 05/04/20 08:00 97.5 91 21 154/100 (118) 98 05/04/20 04:00 97.5 83 19 113/74 (87) 98 05/04/20 02:25 97.5 05/04/20 00:00 97.5 96 19 111/65 (80) 100 05/03/20 22:57 97.8 05/03/20 21:00 Nasal Cannula 2.0 05/03/20 20:40 98 Nasal Cannula 2.0 28 05/03/20 20:00 97.9 95 19 106/67 (80) 100 05/03/20 16:16 97.8 05/03/20 16:00 97.8 83 20 112/70 (84) 98 05/03/20 13:26 96.6 05/03/20 12:00 96.6 89 20 101/81 (88) 98 05/03/20 09:00 Nasal Cannula 2.0 05/03/20 08:00 98.1 102 20 103/66 (78) 99 05/03/20 07:19 98.1 Intake and Output 05/04/20 05/05/20 19:00 07:00 Intake Total 600 ml Output Total 900 ml Balance -300 ml Intake Oral 600 ml Output Urine Total 900 ml Labs Test 05/03/20 08:20 05/04/20 06:10 White Blood Count 3.6 K/UL (4.8-10.8) 4.1 K/UL (4.8-10.8) Red Blood Count 4.00 M/UL (4.20-5.40) 3.40 M/UL (4.20-5.40) Hemoglobin 10.8 G/DL (12.0-16.0) 9.2 G/DL (12.0-16.0) Hematocrit 33.0 % (37.0-47.0) 31.1 % (37.0-47.0) Mean Corpuscular Volume 82 FL (80-99) 91 FL (80-99) Mean Corpuscular Hemoglobin 27.0 PG (27.0-31.0) 27.1 PG (27.0-31.0) Mean Corpuscular Hemoglobin Concent 32.8 G/DL (32.0-36.0) 29.6 G/DL (32.0-36.0) Red Cell Distribution Width 19.7 % (11.6-14.8) 18.5 % (11.6-14.8) Platelet Count 346 K/UL (150-450) 334 K/UL (150-450) Mean Platelet Volume 6.0 FL (6.5-10.1) 5.9 FL (6.5-10.1) Neutrophils (%) (Auto) 71.8 % (45.0-75.0) 69.8 % (45.0-75.0) Lymphocytes (%) (Auto) 13.3 % (20.0-45.0) 11.7 % (20.0-45.0) Monocytes (%) (Auto) 7.1 % (1.0-10.0) 10.6 % (1.0-10.0) Eosinophils (%) (Auto) 6.2 % (0.0-3.0) 5.9 % (0.0-3.0) Basophils (%) (Auto) 1.6 % (0.0-2.0) 2.0 % (0.0-2.0) Sodium Level 141 MMOL/L (136-145) 141 MMOL/L (136-145) Potassium Level 3.4 MMOL/L (3.5-5.1) 4.5 MMOL/L (3.5-5.1) Chloride Level 103 MMOL/L (98-107) 106 MMOL/L (98-107) Carbon Dioxide Level 31 MMOL/L (21-32) 33 MMOL/L (21-32) Anion Gap 8 mmol/L (5-15) 2 mmol/L (5-15) Blood Urea Nitrogen 5 mg/dL (7-18) 6 mg/dL (7-18) Creatinine 0.8 MG/DL (0.55-1.30) 0.6 MG/DL (0.55-1.30) Estimat Glomerular Filtration Rate > 60 mL/min (>60) > 60 mL/min (>60) Glucose Level 110 MG/DL (74-106) 77 MG/DL (74-106) Calcium Level 9.7 MG/DL (8.5-10.1) 9.4 MG/DL (8.5-10.1) Phosphorus Level 3.4 MG/DL (2.5-4.9) 3.4 MG/DL (2.5-4.9) Magnesium Level 1.9 MG/DL (1.8-2.4) 1.4 MG/DL (1.8-2.4) Total Bilirubin 0.6 MG/DL (0.2-1.0) Direct Bilirubin 0.2 MG/DL (0.0-0.3) Aspartate Amino Transf (AST/SGOT) 25 U/L (15-37) Alanine Aminotransferase (ALT/SGPT) 8 U/L (12-78) Alkaline Phosphatase 145 U/L (46-116) Total Protein 5.9 G/DL (6.4-8.2) Albumin 2.7 G/DL (3.4-5.0) Height (Feet): 5 Height (Inches): 7.00 Weight (Pounds): 150 Objective Gen: nad Pulm: ctab, no cwr CV: rrr Abd: soft, nt Ext: no cce Martinez Hill MD May 05, 2020 06:45
--- NOTE | 2020-05-05 07:10 | NUR ---
NURSE HAND-OFF: Important Events on Shift: Pt refused 2200 heparin and wanted 0600 heparin, pt also requested SCD to be applied. Patient Status: calm Diet: regular Pending Orders: Pending Results/Labs: Pending MD notification: Latest Vital Signs: Temperature 97.8 , Pulse 95 , B/P 112 /74 , Respiratory Rate 17 , O2 SAT 99 , Nasal Cannula, O2 Flow Rate 2.0 . Vital Sign Comment: VSS Latest [place] Fall Score: 55 Fall Risk: High Risk Safety Measures: Call light Within Reach, Bed Alarm Zone 1, Side Rails Side Rails x3, Bed position Low and Locked. Fall Precautions: Door Sign Patient Fall Education Report given to REA Ceron.
[2020-05-05 08:00] VITALS: BP 102/67
--- NOTE | 2020-05-05 08:20 | Pulmonology Progress Note ---
Subjective ROS Limited/Unobtainable: Yes Interval Events: None new Constitutional: Reports: fatigue HEENT: Repors: no symptoms Respiratory: Reports: no symptoms, dry cough Cardiovascular: Reports: no symptoms Gastrointestinal/Abdominal: Denies: nausea, vomiting, diarrhea Psychiatric: Denies: depression Skin: Denies: rash Musculoskeletal: Denies: pain Allergies: Coded Allergies: No Known Allergies (Unverified , 04/11/20) Objective Last 24 Hour Vital Signs Date Time Temp Pulse Resp B/P (MAP) Pulse Ox O2 Delivery O2 Flow Rate FiO2 05/05/20 04:00 97.8 95 17 112/74 (87) 99 05/05/20 00:00 98.1 82 18 145/96 (112) 96 05/04/20 21:00 Nasal Cannula 2.0 05/04/20 20:13 97 Nasal Cannula 2.0 28 05/04/20 20:00 98.4 102 18 105/69 (81) 98 05/04/20 16:00 97.3 76 19 139/73 (95) 98 05/04/20 12:00 97.3 96 20 129/83 (98) 100 05/04/20 09:34 99 Nasal Cannula 2.0 28 05/04/20 09:00 Nasal Cannula 2.0 Intake and Output 05/04/20 05/05/20 19:00 07:00 Intake Total 600 ml Output Total 900 ml 800 ml Balance -300 ml -800 ml Intake Oral 600 ml Output Urine Total 900 ml 800 ml # Bowel Movements 1 Objective 05/05 no change respiratory-salomon; stable no change 05/03 no change; AM labs unavailable 05/02 on and off 2 L NC; NAD 05/01 no change 04/28 on and off 1 L NC; NAD 04/27 on and off 1 L NC; NAD 04/26 still on 1 L NC; NAD 04/25 no change respiratory-salomon 04/24 no change 04/23 on and off 1 lpm NC 04/22 saturating well on and off 1 lpm NC 04/21 no change 04/20 pt saturating well on 2 lpm NC; NAD 04/19 pt saturating well on 2 lpm NC; NAD 04/18 pt saturating well on 2 lpm NC General Appearance: WD/WN, no acute distress HEENT: normocephalic, atraumatic Respiratory: lungs clear Cardiovascular: normal rate, regular rhythm Abdomen: soft, non tender Genitourinary: other - [place] Extremities: no edema Current Medications Medications (Trade) Dose Ordered Sig/Angelika Route PRN Reason Start Time Stop Time Status Last Admin Dose Admin Acetaminophen (Tylenol) 650 mg Q6H PRN ORAL Mild Pain (Pain Scale 1-3) 04/12/20 02:45 05/12/20 02:44 05/03/20 15:46 Acetaminophen (Tylenol) 650 mg Q6H PRN ORAL FEVER 04/12/20 16:30 05/12/20 16:29 04/27/20 00:38 Acetaminophen/ Hydrocodone Bitart ([place] 10/325) 1 tab Q6H PRN ORAL severe pain 05/04/20 22:17 05/11/20 22:16 05/05/20 05:49 Acetaminophen/ Hydrocodone Bitart ([place] 5/325) 1 tab Q6H PRN ORAL moderate pain 05/04/20 18:30 05/11/20 18:29 05/05/20 02:25 Allopurinol (allopurinoL) 300 mg DAILY ORAL 04/12/20 09:00 05/12/20 08:59 05/04/20 09:31 Ascorbic Acid (Vitamin C) 500 mg DAILY ORAL 04/26/20 09:00 05/26/20 08:59 05/04/20 09:31 Baclofen (Lioresal) 10 mg THREE TIMES A DAY ORAL 04/12/20 09:00 05/12/20 08:59 05/04/20 09:31 Chlorhexidine Gluconate (Christy-Hex 2%) 1 applic Q24H TOPIC 04/25/20 20:00 07/24/20 19:59 04/30/20 20:46 Docusate Sodium (Colace) 100 mg TWICE A DAY ORAL 04/27/20 09:00 05/20/20 08:59 05/03/20 17:08 Dronabinol (Marinol) 5 mg BID ORAL 05/01/20 09:00 07/30/20 08:59 05/04/20 17:49 Fluconazole (Diflucan) 200 mg DAILY ORAL 05/04/20 14:00 05/09/20 13:59 05/04/20 14:41 Heparin Sodium (Porcine) (Heparin 5000 units/ml) 5,000 units EVERY 8 HOURS SUBQ 04/24/20 22:00 06/08/20 21:59 05/05/20 05:38 Lactulose (Cephulac) 20 gm THREE TIMES A DAY ORAL 04/21/20 13:00 05/21/20 12:59 05/04/20 09:30 Linaclotide (Linzess) 290 mcg BEFORE BREAKFAST ORAL 04/26/20 06:30 07/25/20 06:29 05/01/20 05:46 Magnesium Oxide (Mag-Ox 400mg) 400 mg THREE TIMES A DAY ORAL 04/30/20 13:00 05/30/20 12:59 05/04/20 17:49 Morphine Sulfate (Morphine Sulfate) 2 mg Q3H PRN IVP Severe Pain (Pain Scale 7-10) 05/04/20 19:17 05/11/20 19:16 Morphine Sulfate (Morphine Sulfate) 4 mg Q3H PRN IVP SEVERE BREAKTHRU PAIN 05/04/20 19:18 05/11/20 19:17 Multivitamins (Multivitamins) 1 tab DAILY ORAL 04/26/20 09:00 05/26/20 08:59 05/04/20 09:31 Ondansetron HCl (Zofran) 4 mg Q6H PRN IVP Nausea & Vomiting 04/19/20 13:30 05/19/20 13:29 04/29/20 18:17 Polyethylene Glycol (Miralax) 17 gm DAILY ORAL 04/20/20 09:00 05/20/20 08:59 05/04/20 09:31 Assessment/Plan Assessment/Plan 1. COVID-19 infection - COVID-19 PCR 04/21 positive: cont isolation - no indication for steroid or remdesivir given her normoxemia at this time - s/p cefepime - CXR with diffuse non-specific inflammatory/infectious process - cont supplemental oxygen as needed; currently saturating well on 2L NC - CT A/P/C - no obvious pna or abscess, cultures negative 2. Immunocompromised state with history of non-Hodgkin lymphoma. - on chemo - h/o port line infection; s/p Vanco - to return to [facility] for further Tx 3. Fever; resolved - urine culture showed zee albicans - blood culture showed no growth 4. Hx of Hypertension. 5. Hx of gout. 6. Anemia - s/p pRBC 7. DVT ppx - on SCD 8. Low TSH; improving - Dr. Fermin following - no need for levothyroxine per Dr. Fermin 9. UTI - Urine Cx showed zee albicans - per nephro 10. Hypokalemia - potassium replaced per neprho 11. Hypomagnesemia - Mg replaced per nephro 12. 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
[2020-05-05] MEDS: Miralax 17gm pkt ORAL SCH (09:00)
[2020-05-05] MEDS: Lactulose 20gm/30ml UDC ORAL SCH ×3 (09:00→17:25)
[2020-05-05] MEDS: Fluconazole 100mg tab ORAL SCH (09:11)
[2020-05-05] MEDS: Ascorbic Acid 500mg tab ORAL SCH (09:11)
[2020-05-05] MEDS: Magnesium Oxide 400mg tab ORAL SCH ×3 (09:11→17:25)
[2020-05-05] MEDS: Dronabinol 2.5mg Cap ORAL SCH ×2 (09:12→17:26)
[2020-05-05] MEDS: Docusate 100mg cap ORAL SCH ×2 (09:12→17:25)
[2020-05-05 09:13] LABS: ANION GAP 6 mmol/L (5-15); BLOOD UREA NITROGEN 7 mg/dL (7-18); CALCIUM 9.5 MG/DL (8.5-10.1); CARBON DIOXIDE 31 MMOL/L (21-32); CHLORIDE 102 MMOL/L (98-107); CREATININE 0.6 MG/DL (0.55-1.30); POTASSIUM 3.4 MMOL/L (3.5-5.1); SODIUM 139 MMOL/L (136-145)
[2020-05-05 09:25] LABS: BASOPHILS % (AUTO) 1.7 % (0.0-2.0); EOSINOPHILS % (AUTO) 5.3 % (0.0-3.0); HEMATOCRIT 35.8 % (37.0-47.0); HEMOGLOBIN 10.5 G/DL (12.0-16.0); LYMPHOCYTES % (AUTO) 11.2 % (20.0-45.0); MEAN CORPUSCULAR VOLUME 92 FL (80-99); MONOCYTES % (AUTO) 8.8 % (1.0-10.0); NEUTROPHILS % (AUTO) 73.1 % (45.0-75.0); PLATELET COUNT 382 K/UL (150-450); RED BLOOD COUNT 3.88 M/UL (4.20-5.40); RED CELL DISTRIBUTION WIDTH 18.8 % (11.6-14.8)
[2020-05-05 12:00] VITALS: BP 113/70
--- NOTE | 2020-05-05 14:47 | Cardiac Electrophysiology PN ---
Assessment/Plan Assessment/Plan 1. Sinus tachycardia due to sepsis, anemia and COVID. Can not use beta-domenico as blood pressure is 100/70. 2. COVID pneumonia. 3. Hypokalemia. 4. Hypomagnesemia. 5. History of non-Hodgkin lymphoma. 6. Leukopenia and anemia. FU Dr. Valencia S/P PRBC 7. Fever. 8. Low Mg replaced 9. Left Hip Fx; Likely Chronic > Patient states she fell 5 months ago. Also had hard fall on coccyx in 2018. Mi nimal pain in left hip - Per Dr. Payan. Given patient bed bound risks > benefits. Outpatient consideration DW RN Subjective Subjective No events in Covid isolation. On 2 liter NC. No fever overnight. S/P PRBC for 7.6. Has Left hip Fx. Not scheduled for surgery yet. ECG sinus tach 127 Venous Duplex no DVT Objective Last 24 Hour Vital Signs Date Time Temp Pulse Resp B/P (MAP) Pulse Ox O2 Delivery O2 Flow Rate FiO2 05/05/20 12:00 98.1 104 18 113/70 (84) 97 05/05/20 09:00 Nasal Cannula 2.0 05/05/20 08:00 97.9 92 18 102/67 (79) 97 05/05/20 07:00 99 Nasal Cannula 2.0 28 05/05/20 04:00 97.8 95 17 112/74 (87) 99 05/05/20 00:00 98.1 82 18 145/96 (112) 96 05/04/20 21:00 Nasal Cannula 2.0 05/04/20 20:13 97 Nasal Cannula 2.0 28 05/04/20 20:00 98.4 102 18 105/69 (81) 98 05/04/20 16:00 97.3 76 19 139/73 (95) 98 Intake and Output 05/04/20 05/05/20 19:00 07:00 Intake Total 600 ml Output Total 900 ml 800 ml Balance -300 ml -800 ml Intake Oral 600 ml Output Urine Total 900 ml 800 ml # Bowel Movements 1 Laboratory Tests Test 05/05/20 08:10 White Blood Count 4.0 K/UL (4.8-10.8) L Red Blood Count 3.88 M/UL (4.20-5.40) L Hemoglobin 10.5 G/DL (12.0-16.0) L Hematocrit 35.8 % (37.0-47.0) L Mean Corpuscular Volume 92 FL (80-99) Mean Corpuscular Hemoglobin 27.0 PG (27.0-31.0) Mean Corpuscular Hemoglobin Concent 29.3 G/DL (32.0-36.0) L Red Cell Distribution Width 18.8 % (11.6-14.8) H Platelet Count 382 K/UL (150-450) Mean Platelet Volume 6.1 FL (6.5-10.1) L Neutrophils (%) (Auto) 73.1 % (45.0-75.0) Lymphocytes (%) (Auto) 11.2 % (20.0-45.0) L Monocytes (%) (Auto) 8.8 % (1.0-10.0) Eosinophils (%) (Auto) 5.3 % (0.0-3.0) H Basophils (%) (Auto) 1.7 % (0.0-2.0) Sodium Level 139 MMOL/L (136-145) Potassium Level 3.4 MMOL/L (3.5-5.1) L Chloride Level 102 MMOL/L (98-107) Carbon Dioxide Level 31 MMOL/L (21-32) Anion Gap 6 mmol/L (5-15) Blood Urea Nitrogen 7 mg/dL (7-18) Creatinine 0.6 MG/DL (0.55-1.30) Estimat Glomerular Filtration Rate > 60 mL/min (>60) Glucose Level 78 MG/DL (74-106) Calcium Level 9.5 MG/DL (8.5-10.1) Magnesium Level 2.1 MG/DL (1.8-2.4) Objective HEAD AND NECK: No JVD. LUNGS: Coarse rhonchi. CARDIOVASCULAR: Regular S1 and S2 with no gallop or murmur. ABDOMEN: Soft. EXTREMITIES: No pitting edema. Ehsan Wan MD May 05, 2020 14:47
--- NOTE | 2020-05-05 14:55 | Diagnostic Imaging Report ---
EXAM: US Duplex Bilateral Lower Extremities Veins CLINICAL HISTORY: DVT TECHNIQUE: Real-time duplex ultrasound scan of the bilateral lower extremity veins integrating B-mode two-dimensional vascular structure, Doppler spectral analysis, color flow Doppler imaging and compression. COMPARISON: No relevant prior studies available. FINDINGS: Right deep veins: Unremarkable. No DVT in the right common femoral, femoral, proximal deep femoral or popliteal veins. The veins demonstrate normal color flow, are normally compressible, with normal phasic flow and/or augmentation response. Right superficial veins: Right proximal greater saphenous vein appears unremarkable. Left deep veins: Unremarkable. No DVT in the left common femoral, femoral, proximal deep femoral or popliteal veins. The veins demonstrate normal color flow, are normally compressible, with normal phasic flow and/or augmentation response. Left superficial veins: Left proximal greater saphenous vein appears unremarkable. Soft tissues: No popliteal cyst. IMPRESSION: No evidence of DVT in the visualized venous segments of bilateral lower extremities.
[2020-05-05 16:00] VITALS: BP 108/76
--- NOTE | 2020-05-05 16:36 | NUR ---
CASE MANAGEMENT: REVIEW 05/05/2020 SI;ACUTE POSTHEMORRHAGIC ANEMIA VS: T 98.1 HR 104 RR 18 B/P 113/70 SATS 97% ON 2L/NC LABS: WBC 4 K 3.4 IS:MARINOL PO BID LINZESS PO QAM ALLOPURINOL PO QD DIFLUCAN PO QD LACTULOSE PO TID LIORESAL PO TID MED/SURG
--- NOTE | 2020-05-05 16:41 | Infectious Diseases Prog Note ---
Assessment/Plan Assessment/Plan A) 1) covid-19 virus infection with fevers, saturations stable, CT A/P/C - no obvious pna or abscess, sats stable, no sob, cultures negative 2) hx lymphoma and chemo, anemia, history of port line infection, s/p vancomycin, JIM resolved 3) fungal uti - zee albicans uti 4) allergies - nkda, fh-nc, sh-negative 5) d/w RN 6) notes and records noted P) 1) diflucan - day # 2/5 2) no indication for covid-19 tx, sats stable, no sob 3) monitor labs, monitor for hypoxia, monitor fevers, cultures negative 4) will f/u 5) d/w Dr. Brunner 6) will sign off, call if any questions 7) thank you Subjective Constitutional: Reports: fatigue; Denies: fever HEENT: Denies: congestion Respiratory: Denies: shortness of breath Cardiovascular: Denies: chest pain Gastrointestinal/Abdominal: Denies: vomiting Genitourinary: Denies: dysuria, hematuria, frequency Neurologic: Denies: headache Psychiatric: Denies: depression Skin: Denies: rash Hematologic: Denies: bleeding Allergies: Coded Allergies: No Known Allergies (Unverified , 04/11/20) Objective Last 24 Hour Vital Signs Date Time Temp Pulse Resp B/P (MAP) Pulse Ox O2 Delivery O2 Flow Rate FiO2 05/05/20 12:00 98.1 104 18 113/70 (84) 97 05/05/20 09:00 Nasal Cannula 2.0 05/05/20 08:00 97.9 92 18 102/67 (79) 97 05/05/20 07:00 99 Nasal Cannula 2.0 28 05/05/20 04:00 97.8 95 17 112/74 (87) 99 05/05/20 00:00 98.1 82 18 145/96 (112) 96 05/04/20 21:00 Nasal Cannula 2.0 05/04/20 20:13 97 Nasal Cannula 2.0 28 05/04/20 20:00 98.4 102 18 105/69 (81) 98 Height (Feet): 5 Height (Inches): 7.00 Weight (Pounds): 150 General Appearance: no acute distress HEENT: normocephalic, atraumatic, anicteric, mucous membranes moist Respiratory/Chest: crackles/rales, rhonchi - bilaterally Cardiovascular: normal rate, regular rhythm, no gallop/murmur Abdomen: normal bowel sounds, soft, non tender, no organomegaly, non distended Genitourinary: other - no eaton Extremities: no cyanosis Skin: no rash Neurologic/Psychiatric: filament coil winder II-XII grossly normal, alert, oriented x 3, responsive Lymphatic: no neck adenopathy Musculoskeletal: no effusion Chest x-ray - 04/13/20 - Findings: The cardiomediastinal silhouette is within normal limits. There is diffuse interstitial prominence. No airspace consolidation. No pneumothorax or pleural effusion. No acute osseous abnormality. Right approach PICC terminates in the expected location of mid SVC IMPRESSION: Diffuse interstitial prominence, which is nonspecific but may be related to peribronchial thickening in the setting of infectious/inflammatory airways disease or interstitial edema. CT angio chest: Impression: No evidence of acute pulmonary embolus or other acute thoracic vascular pathology. Areas of consolidation and volume loss with associated bronchiectasis most likely represent areas of scarring and atelectasis. Note definite acute infiltrates. Other findings as noted, including evidence of prior upper thoracic spine surgery, T12 compression fracture deformity and evidence of prior vertebral augmentation procedure, sliding-type hiatal hernia, PICC CT abdomen and pelvis: Impression: Minimal distention of the rectum with feces, could represent mild rectal fecal impaction. Equivocal slight thickening of the rectal wall and stranding of the perirectal fat, if real could indicate mild stercoral proctitis Comminuted fracture of the left femoral head, neck, and intertrochanteric region, ununited. Possibly acute, but abundant soft tissues surrounding the fracture area raises possibility that this could be chronic. Correlate with clinical findings Other findings as noted, including evidence of old T12 vertebral body compression fracture and prior vertebral augmentation procedure, Eaton catheter, subcentimeter low-attenuation lesions which probably represent renal cysts, small sliding-type hiatal hernia Microbiology Date/Time Source Procedure Growth Status 04/27/20 00:00 Indwelling Cath Urine Culture - Final Zee Albicans Complete 04/26/20 23:30 Blood Blood Culture - Final NO GROWTH AFTER 5 DAYS Complete 04/21/20 17:00 Nasopharynx Coronavirus COVID-19 PCR ([facility]) - Final Complete 04/12/20 01:30 Rectum - Final NO CARBAPENEM-RESISTANT ENTEROBACTERI... Complete Laboratory Tests Test 05/05/20 08:10 White Blood Count 4.0 K/UL (4.8-10.8) L Red Blood Count 3.88 M/UL (4.20-5.40) L Hemoglobin 10.5 G/DL (12.0-16.0) L Hematocrit 35.8 % (37.0-47.0) L Mean Corpuscular Volume 92 FL (80-99) Mean Corpuscular Hemoglobin 27.0 PG (27.0-31.0) Mean Corpuscular Hemoglobin Concent 29.3 G/DL (32.0-36.0) L Red Cell Distribution Width 18.8 % (11.6-14.8) H Platelet Count 382 K/UL (150-450) Mean Platelet Volume 6.1 FL (6.5-10.1) L Neutrophils (%) (Auto) 73.1 % (45.0-75.0) Lymphocytes (%) (Auto) 11.2 % (20.0-45.0) L Monocytes (%) (Auto) 8.8 % (1.0-10.0) Eosinophils (%) (Auto) 5.3 % (0.0-3.0) H Basophils (%) (Auto) 1.7 % (0.0-2.0) Sodium Level 139 MMOL/L (136-145) Potassium Level 3.4 MMOL/L (3.5-5.1) L Chloride Level 102 MMOL/L (98-107) Carbon Dioxide Level 31 MMOL/L (21-32) Anion Gap 6 mmol/L (5-15) Blood Urea Nitrogen 7 mg/dL (7-18) Creatinine 0.6 MG/DL (0.55-1.30) Estimat Glomerular Filtration Rate > 60 mL/min (>60) Glucose Level 78 MG/DL (74-106) Calcium Level 9.5 MG/DL (8.5-10.1) Magnesium Level 2.1 MG/DL (1.8-2.4) Current Medications Medications (Trade) Dose Ordered Sig/Angelika Route PRN Reason Start Time Stop Time Status Last Admin Dose Admin Acetaminophen (Tylenol) 650 mg Q6H PRN ORAL Mild Pain (Pain Scale 1-3) 04/12/20 02:45 05/12/20 02:44 05/03/20 15:46 Acetaminophen (Tylenol) 650 mg Q6H PRN ORAL FEVER 04/12/20 16:30 05/12/20 16:29 04/27/20 00:38 Acetaminophen/ Hydrocodone Bitart ([place] 10/325) 1 tab Q6H PRN ORAL severe pain 05/04/20 22:17 05/11/20 22:16 05/05/20 13:10 Acetaminophen/ Hydrocodone Bitart ([place] 5/325) 1 tab Q6H PRN ORAL moderate pain 05/04/20 18:30 05/11/20 18:29 05/05/20 02:25 Allopurinol (allopurinoL) 300 mg DAILY ORAL 04/12/20 09:00 05/12/20 08:59 05/05/20 09:12 Ascorbic Acid (Vitamin C) 500 mg DAILY ORAL 04/26/20 09:00 05/26/20 08:59 05/05/20 09:11 Baclofen (Lioresal) 10 mg THREE TIMES A DAY ORAL 04/12/20 09:00 05/12/20 08:59 05/04/20 09:31 Chlorhexidine Gluconate (Christy-Hex 2%) 1 applic Q24H TOPIC 04/25/20 20:00 07/24/20 19:59 04/30/20 20:46 Docusate Sodium (Colace) 100 mg TWICE A DAY ORAL 04/27/20 09:00 05/20/20 08:59 05/05/20 09:12 Dronabinol (Marinol) 5 mg BID ORAL 05/01/20 09:00 07/30/20 08:59 05/05/20 09:12 Fluconazole (Diflucan) 200 mg DAILY ORAL 05/04/20 14:00 05/09/20 13:59 05/05/20 09:11 Heparin Sodium (Porcine) (Heparin 5000 units/ml) 5,000 units EVERY 8 HOURS SUBQ 04/24/20 22:00 06/08/20 21:59 05/05/20 05:38 Lactulose (Cephulac) 20 gm THREE TIMES A DAY ORAL 04/21/20 13:00 05/21/20 12:59 05/04/20 09:30 Linaclotide (Linzess) 290 mcg BEFORE BREAKFAST ORAL 04/26/20 06:30 07/25/20 06:29 05/01/20 05:46 Magnesium Oxide (Mag-Ox 400mg) 400 mg THREE TIMES A DAY ORAL 04/30/20 13:00 05/30/20 12:59 05/05/20 12:05 Morphine Sulfate (Morphine Sulfate) 2 mg Q3H PRN IVP Severe Pain (Pain Scale 7-10) 05/04/20 19:17 05/11/20 19:16 Morphine Sulfate (Morphine Sulfate) 4 mg Q3H PRN IVP SEVERE BREAKTHRU PAIN 05/04/20 19:18 05/11/20 19:17 Multivitamins (Multivitamins) 1 tab DAILY ORAL 04/26/20 09:00 05/26/20 08:59 05/05/20 09:11 Ondansetron HCl (Zofran) 4 mg Q6H PRN IVP Nausea & Vomiting 04/19/20 13:30 05/19/20 13:29 04/29/20 18:17 Polyethylene Glycol (Miralax) 17 gm DAILY ORAL 04/20/20 09:00 05/20/20 08:59 05/04/20 09:31 Marko Rivera MD May 05, 2020 16:41
--- NOTE | 2020-05-05 18:44 | General Progress Note ---
Subjective Date patient seen: May 05, 2020 Allergies: Coded Allergies: No Known Allergies (Unverified , 04/11/20) Subjective No acute events overnight per nursing. Patient tachycardic at times but asymptomatic. No chest pain, palpitations, SOB, nausea vomiting. No syncope or near syncope. Pain well controlled Review of systems: Constitutional: Denies: chills, diaphoresis, malaise, weakness, HEENT: Denies: eye pain, blurred vision, double vision, ear pain, nose pain, throat pain, Cardiovascular: Denies: chest pain, edema, lightheadedness, palpitations Respiratory: No sob, cough, milton Gastrointestinal/Abdominal: Denies: abdominal pain, black stools, blood in stool, constipation, diarrhea, nausea, poor fluid intake vomiting, other Genitourinary: Denies: burning, discharge, frequency, Neurologic/Psychiatric: Denies: headache, numbness, paresthesia, new weakness, other Endocrine: Denies: excessive sweating, flushing, intolerance to cold, MSK: denies joint pains, swelling, stiffness +back pain (improving) Hematologic/Lymphatic: Denies: anemia, easy bleeding, easy bruising, Objective Last 24 Hour Vital Signs Date Time Temp Pulse Resp B/P (MAP) Pulse Ox O2 Delivery O2 Flow Rate FiO2 05/05/20 16:00 98.3 87 18 108/76 (87) 96 05/05/20 12:00 98.1 104 18 113/70 (84) 97 05/05/20 09:00 Nasal Cannula 2.0 05/05/20 08:00 97.9 92 18 102/67 (79) 97 05/05/20 07:00 99 Nasal Cannula 2.0 28 05/05/20 04:00 97.8 95 17 112/74 (87) 99 05/05/20 00:00 98.1 82 18 145/96 (112) 96 05/04/20 21:00 Nasal Cannula 2.0 05/04/20 20:13 97 Nasal Cannula 2.0 28 05/04/20 20:00 98.4 102 18 105/69 (81) 98 Intake and Output 05/04/20 05/05/20 19:00 07:00 Intake Total 600 ml Output Total 900 ml 800 ml Balance -300 ml -800 ml Intake Oral 600 ml Output Urine Total 900 ml 800 ml # Bowel Movements 1 Laboratory Tests 05/05/20 08:10: White Blood Count 4.0L, Red Blood Count 3.88L, Hemoglobin 10.5L, Hematocrit 35.8L, Mean Corpuscular Volume 92, Mean Corpuscular Hemoglobin 27.0, Mean Corpuscular Hemoglobin Concent 29.3L, Red Cell Distribution Width 18.8H, Platelet Count 382, Mean Platelet Volume 6.1L, Neutrophils (%) (Auto) 73.1, Lymphocytes (%) (Auto) 11.2L, Monocytes (%) (Auto) 8.8, Eosinophils (%) (Auto) 5.3H, Basophils (%) (Auto) 1.7, Sodium Level 139, Potassium Level 3.4L, Chloride Level 102, Carbon Dioxide Level 31, Anion Gap 6, Blood Urea Nitrogen 7, Creatinine 0.6, Estimat Glomerular Filtration Rate > 60, Glucose Level 78, Calcium Level 9.5, Magnesium Level 2.1 Height (Feet): 5 Height (Inches): 7.00 Weight (Pounds): 150 Objective General: WDWN female in NAD, A&O x 4 HEENT: Normocephalic cephalic atraumatic, pupils equal round reactive to light and accommodation, nares patent and no symmetrical, no tonsillar exudates, mucous membranes moist CV: Regular rate regular rhythm, no murmurs, rubs, or gallops + POrt site is C/d/i. Pulm: Lungs clear to auscultation bilaterally. No wheezes, rhonchi, or rales GI: Soft, nontender, nondistended, bowel sounds present + eaton in place, no suprapubic TTP Neuro: CN 2-12 intact bilaterally, no focal signs. Moving all extremities Ext: +Trace LE edema and tenderness bilaterally Skin: no rashes lesions or ulcers Msk: Joints symmetrical in upper extremity and lower extremity bilaterally, no joint swelling. + left hip pain (slightly) + mid thoracic spinal back pain Lymph: No lymphadenopathy in upper extremity and lower extremity Assessment/Plan Status: stable Assessment/Plan: #Left Hip Fx; Likely Chronic > Patient states she fell 5 months ago but no recent falls. Also had hard fall on coccyx in 2018. Minimal pain in left hip > Patient states she has not walked for months but is not paraplegic. Severe debilitation. - appreciate ortho eval: Dr. Payan. Given patient bed bound risks > benefits. Outpatient consideration - NWB LLE -Per Ortho, no immediate surgical indication, but will need OP f/u -Confirm weight bearing recs for PT -Patient would like plan confirmed for surgery prior to d/c given she is feeling very debilitated- F/U with ortho -d/w Cardiology. Not a candidate for surgery right now. Outpatient follow up. -Pending placement vs Home w/ HH #Lesia UTI - FLuconazole 200mg daily for 5 days (05/04 - ) - Abx per ID - monitor QTC #LE edema/pain - venous duplex to rule out DVT - SCDs for DVT ppx if neg #Sepsis 2/2 PORT infection, S/P Port Removal -Resolved #COVID 19 pneumonia (febrile, tachycardic)-Currently saturating well on 2L NC -Appreciate ID -S/p Vanco and Cefepime Tx-Cultures noted -Continue NC Support -If she goes home, may need home 02; consider ABG but await PT eval #Lymphoma-was receiving Chemo--> Known mets to spine ( see MRI ) #Pancytopenia including Blood Transfusion Requiring Anemia --> S/P PRBC transfusions and Neupogen, likely related to chemo/marrow suppression #L3 Lesion on MRI -Appreciate Oncology -Appreciate Radiation Oncology -Resume chemo as outpatient #Hypothyroidism, suspect central given TSH and T4 both low -Appreciate Endocrine Recs -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 COVID vs. cancer related? - appears to have resolved - CTM Fever curve. Could be due to underlying malignancy - Repeat Blood cultures NGTD - Repeat UA: negative - Repeat CXR: Bronchial thickening - Check CT C/A/P including CT angio to eval for PE. : reviewed. No PE. No obvious infection. Incidental left hip fracture - IV fluids as needed - D/W ID. - Port has been removed at OSH - , - ngtd - Cefepime (04/14 - 04/15) - Per patient she is to continue on Vancomycin till 04/25 - D/c vanc - ID Consult, appreciate recs - MRI C/T/L spine w/wo contrast to eval for abscess: No sign of infection, abscess or osteo #JIM, pre-renal vs. due to vanc toxicity - resolved > Vanc level 35 - urine lytes - Nephrology on board: D/w Dr. hatch - Fluids per nephro #Hx of Lymphoma #leukopenia improving > S/p mets to spine s/p surgery earlier this year and XRT/Chemo > Last chemo in February 2020 - All information per patient - Oncology following, appreciate recs - Can continue current therapy with outpatient onc - No acute interventions needed inpatient - Neupogen x 1 04/21 #Acute blood loss anemia - resolving #anemia of chronic disease #Normocytic anemia Patient presented with Hb 6.7 with normal MCV. History of lymphoma per patient and is receiving chemo tx, last known to be February 2020. - 2U PRBCs ordered and transfused on admission - Hb Stable - Rectic count wnl, Iron and Iron sat low, Ferritin wnl - No active signs of bleeding - Hematology consulted, appreciate recs - CTM for signs of bleeding - Patient will need colonoscopy as outpatient in the future : Gi Consulted; Dr. Carter #sinus tachycardia, due to COVID pna - monitor EKG - Cardiology consulted: Dr. Wan #proctitis #Constipation- > improving - Aggressive bowel regimen - GI aware: Appreciate recommendations - Colace, miralax, - s/p enema and ducolax with improvement #chronic urinary retention - since patient had spine surgery earlier in the year - unsure if has true urinary retention - d/w nephrology -> voiding trial, however patient refused. #Hypokalemia #hypomagnesia - Lytes replaced - appreciate nephro management FENPPX DVTPPX: per primary. Patient refusing DVT ppx shots (risks of of refusal including life threatening blood clot and PE explained to patient but still wishes to refuse) Fluids: per nephro Diet: regular Lines: PIV PT/OT: pending Code status:Full Dispo: back to SNF Reason for Continued Hospitalization: hypoxia, fever Dispo - Discharge back to SNF. MIPS ([employer]it-based Incentive Payment System) Applicable CPT: 36437, 02021 CHECK ALL THAT ARE MET: [] Measure #5 (CHF): All ages. Prescribe LINDSAY/ARB upon discharge for patients with left ventricular systolic dysfunction. If not, the reason is clearly documented in the medical chart [] Measure #8 (CHF): All ages. Prescribe a beta domenico upon discharge for patients with left ventricular systolic dysfunction. If not, the reason is clearly documented in the medical chart. [x] Measure #47: Advance care plan or surrogate decision maker documented in the medical record. [x] Measure #130 The provider has documented, updated, or reviewed the patient s current medication list and has documented it in the patients note. [] Measure #374 (All): Send report to referring provider. [] Measure #407(Sepsis due to MSSA bacteremia): Age 18+ Patient treated with a beta-lactam antibiotic (Nafcillin, Oxacillin or Cefazolin) as definitive therapy. MEDICAL COMPLEXITYHigh complexity medical decision making (need 2/3 categories)Problem - need 4 points [x]Acute/new problem with new plan for workup (4 points, 1 max) [] Acute/new problem without additional workup (3 points, 1 max) [] Unstable chronic problem actively being managed (2 point each, 2 max) [x] Stable chronic problem actively being managed (1 point each, 2 max) [x] Self-limited/transient process (constipation, muscle ache, etc) (1 point each, 2 max) Data - need 4 points [x] Reviewed labs/imaging studies (1 points, 2 max) [x] Independent review of imaging (EKG, xrays, etc) (2 points, 2 max) [x] Discussed case with consult/other MD/RN (2 points, 2 max) High Risk - qualify if have one of the following: [x] Severe exacerbation of acute problem, acute mental status change, IV narcotics, monitoring drug levels (vancomycin, INR, tacrolimus etc) I spent 39 minutes on this patient's case, and 23 mins was dedicated to counseling and/or care coordination. Discussed with nephrology,cardiology, RN at bedside. Time of note may not reflect time of encounter Jus Brunner D.O. May 05, 2020 18:44
[2020-05-05] MEDS: Dyna-Hex 2% Top Sol 2oz TOPIC SCH (19:41)
[2020-05-05 20:00] VITALS: BP 112/82
--- NOTE | 2020-05-05 20:18 | Neurology Progress Note ---
Interim History Interim History ROS Limited/Unobtainable: Yes Interim History doing ok no new deficits Objective Physical Exam Last Vital Signs Date Time Temp Pulse Resp B/P (MAP) Pulse Ox O2 Delivery O2 Flow Rate FiO2 05/05/20 16:00 98.3 87 18 108/76 (87) 96 05/05/20 09:00 Nasal Cannula 2.0 05/05/20 07:00 28 Laboratory Tests Test 05/05/20 08:10 White Blood Count 4.0 K/UL (4.8-10.8) L Red Blood Count 3.88 M/UL (4.20-5.40) L Hemoglobin 10.5 G/DL (12.0-16.0) L Hematocrit 35.8 % (37.0-47.0) L Mean Corpuscular Volume 92 FL (80-99) Mean Corpuscular Hemoglobin 27.0 PG (27.0-31.0) Mean Corpuscular Hemoglobin Concent 29.3 G/DL (32.0-36.0) L Red Cell Distribution Width 18.8 % (11.6-14.8) H Platelet Count 382 K/UL (150-450) Mean Platelet Volume 6.1 FL (6.5-10.1) L Neutrophils (%) (Auto) 73.1 % (45.0-75.0) Lymphocytes (%) (Auto) 11.2 % (20.0-45.0) L Monocytes (%) (Auto) 8.8 % (1.0-10.0) Eosinophils (%) (Auto) 5.3 % (0.0-3.0) H Basophils (%) (Auto) 1.7 % (0.0-2.0) Sodium Level 139 MMOL/L (136-145) Potassium Level 3.4 MMOL/L (3.5-5.1) L Chloride Level 102 MMOL/L (98-107) Carbon Dioxide Level 31 MMOL/L (21-32) Anion Gap 6 mmol/L (5-15) Blood Urea Nitrogen 7 mg/dL (7-18) Creatinine 0.6 MG/DL (0.55-1.30) Estimat Glomerular Filtration Rate > 60 mL/min (>60) Glucose Level 78 MG/DL (74-106) Calcium Level 9.5 MG/DL (8.5-10.1) Magnesium Level 2.1 MG/DL (1.8-2.4) Impression/Recommendations Problems: (1) Anemia Status: stable Diagnostic Impression Chronic weakness, LE worse than UEs MRI spine noted, osteoma wo spine compression slplaminectomy COVID 19 pneumonia (febrile, tachycardic) Hx of Lymphoma cont medical support pain control PT as able Renny Bajwa MD May 05, 2020 20:18
[2020-05-06] VITALS: BP 94/62
[2020-05-06] MEDS: HYDROcodone/Acetamin 10/325 tab ORAL PRN ×3 (02:26→18:38)
[2020-05-06 04:00] VITALS: BP 102/60
[2020-05-06] MEDS: Heparin 5000 units/ml inj SUBQ SCH ×3 (06:00→22:00)
--- NOTE | 2020-05-06 07:40 | NUR ---
NURSE NOTES: Report received from ROSE Rey. Pt awake in bed, alert and oriented x 4, no SOB, bed in lowest position breaks engaged and alarm on, denies any pain at this time, IV line present and intact r hand, on NC at 2 lpm, FC in place, on contact and droplet precautions for COVID 19, will continue to monitor and proceed with plan of care, call light within reach.
--- NOTE | 2020-05-06 07:46 | NUR ---
NURSE HAND-OFF: Important Events on Shift:[UNEVENTFUL NIGHT, RESTED WELL, NAD] Patient Status: [STABLE] Diet: [REGULAR] Pending Orders: [N/A Pending Results/Labs:[] Pending MD notification:[] Latest Vital Signs: Temperature 98.2 , Pulse 93 , B/P 102 /60 , Respiratory Rate 18 , O2 SAT 97 , Nasal Cannula, O2 Flow Rate 2.0 . Vital Sign Comment: [STABLE, AFEBRILE] Latest [place] Fall Score: 55 Fall Risk: High Risk Safety Measures: Call light Within Reach, Bed Alarm Zone 1, Side Rails Side Rails x3, Bed position Low and Locked. Fall Precautions: Door Sign Patient Fall Education Report given to [RAE MONTOYA].
[2020-05-06 07:53] LABS: ANION GAP 5 mmol/L (5-15); BLOOD UREA NITROGEN 9 mg/dL (7-18); CALCIUM 9.6 MG/DL (8.5-10.1); CARBON DIOXIDE 30 MMOL/L (21-32); CHLORIDE 105 MMOL/L (98-107); CREATININE 0.5 MG/DL (0.55-1.30); POTASSIUM 3.9 MMOL/L (3.5-5.1); SODIUM 140 MMOL/L (136-145)
[2020-05-06 08:00] VITALS: BP 106/67
[2020-05-06 08:18] LABS: HEMATOCRIT 29.1 % (37.0-47.0); HEMOGLOBIN 8.7 G/DL (12.0-16.0); MEAN CORPUSCULAR VOLUME 93 FL (80-99); PLATELET COUNT 316 K/UL (150-450); RED BLOOD COUNT 3.13 M/UL (4.20-5.40); WHITE BLOOD COUNT 3.3 K/UL (4.8-10.8)
--- NOTE | 2020-05-06 08:39 | Nephrology Progress Note ---
Assessment/Plan Plan #acute kidney injury likely due to vanco toxicity #hypokalemia- #hypomagnesemia #Acute on chronic anemia #h/p non- hodgkins lymphoma #possible sepsis #+ COVID #Femoral intertrochanteric hip fracture. - replete k and mag - Pulmonary eval - prbc transfusion prn - replete lytes - hemo-onc eval - ID eval - monitor CBC - avoid nephrotoxins - ortho eval - spine eval for L3 acute on chronic bone infarct, less likely neoplasm or infection? times spent 65 min Subjective ROS Limited/Unobtainable: No Constitutional: Reports: weakness HEENT: Denies: no symptoms, eye pain, blurred vision, tearing, double vision, ear pain, ear discharge, nose pain, nose congestion, throat pain, throat swelling, mouth pain, mouth swelling, other Genitourinary: Denies: no symptoms, burning, discharge, frequency, flank pain, hematuria, incontinence, pain, urgency, other Neurologic/Psychiatric: Denies: no symptoms, anxiety, depressed, emotional problems, headache, numbness, paresthesia, pre-existing deficit, seizure, tingling, tremors, weakness, other Subjective Cr better today mag and K low repleted hip fracture noted ortho consulted Impression: Minimal distention of the rectum with feces, could represent mild rectal fecal impaction. Equivocal slight thickening of the rectal wall and stranding of the perirectal fat, if real could indicate mild stercoral proctitis Comminuted fracture of the left femoral head, neck, and intertrochanteric region, ununited. Possibly acute, but abundant soft tissues surrounding the fracture area raises possibility that this could be chronic. Correlate with clinical findings Other findings as noted, including evidence of old T12 vertebral body compression fracture and prior vertebral augmentation procedure, Morales catheter, subcentimeter low-attenuation lesions which probably represent renal cysts, small sliding-type hiatal hernia Impression: Unusual signal abnormality of the posterolateral aspect of the L3 vertebral body on the right. This appears to be confined to the vertebral body marrow space. Prior CT scan in retrospect demonstrates sclerotic areas in the same location. Most likely differential consideration is an atypical hemangioma. Other possibilities include acute on chronic bone infarct, less likely neoplasm or infection No other unusual contrast enhancement. No findings to suggest discitis or epidural abscess. Objective Objective Last 24 Hour Vital Signs Date Time Temp Pulse Resp B/P (MAP) Pulse Ox O2 Delivery O2 Flow Rate FiO2 05/06/20 04:00 98.2 93 18 102/60 (74) 97 05/06/20 02:56 98.3 05/06/20 01:06 98.3 05/06/20 00:00 97.9 90 18 94/62 (73) 97 05/05/20 21:00 Nasal Cannula 2.0 05/05/20 20:00 98.8 78 18 112/82 (92) 95 05/05/20 16:00 98.3 87 18 108/76 (87) 96 05/05/20 12:00 98.1 104 18 113/70 (84) 97 05/05/20 09:00 Nasal Cannula 2.0 Intake and Output 05/05/20 05/06/20 19:00 07:00 Intake Total 840 ml 480 ml Output Total 800 ml 500 ml Balance 40 ml -20 ml Intake Oral 840 ml 480 ml Output Urine Total 800 ml 500 ml # Voids 1 Laboratory Tests 05/06/20 06:05: White Blood Count [Pending], Red Blood Count [Pending], Hemoglobin [Pending], Hematocrit [Pending], Mean Corpuscular Volume [Pending], Mean Corpuscular Hemoglobin [Pending], Mean Corpuscular Hemoglobin Concent [Pending], Red Cell Distribution Width [Pending], Platelet Count [Pending], Mean Platelet Volume [Pending], Neutrophils (%) (Auto) [Pending], Lymphocytes (%) (Auto) [Pending], Monocytes (%) (Auto) [Pending], Eosinophils (%) (Auto) [Pending], Basophils (%) (Auto) [Pending], Sodium Level 140, Potassium Level 3.9, Chloride Level 105, Carbon Dioxide Level 30, Anion Gap 5, Blood Urea Nitrogen 9, Creatinine 0.5L, Estimat Glomerular Filtration Rate > 60, Glucose Level 86, Calcium Level 9.6 Height (Feet): 5 Height (Inches): 7.00 Weight (Pounds): 150 Objective General Appearance: no apparent distress EENT: PERRL/EOMI Neck: non-tender, normal alignment Cardiovascular: normal peripheral pulses, normal rate Respiratory/Chest: chest wall non-tender, lungs clear Abdomen: normal bowel sounds, non tender Neurologic: alert, oriented x 3 Kallie Dykes M.D. May 06, 2020 08:39
[2020-05-06] MEDS: Ascorbic Acid 500mg tab ORAL SCH (08:51)
[2020-05-06] MEDS: Dronabinol 2.5mg Cap ORAL SCH ×2 (08:51→17:21)
[2020-05-06] MEDS: Docusate 100mg cap ORAL SCH ×2 (08:52→17:16)
[2020-05-06] MEDS: Magnesium Oxide 400mg tab ORAL SCH ×3 (08:52→17:17)
[2020-05-06] MEDS: Miralax 17gm pkt ORAL SCH (08:52)
[2020-05-06] MEDS: Lactulose 20gm/30ml UDC ORAL SCH ×3 (08:52→17:16)
[2020-05-06] MEDS: Fluconazole 100mg tab ORAL SCH (08:52)
--- NOTE | 2020-05-06 09:39 | Pulmonology Progress Note ---
Subjective ROS Limited/Unobtainable: No Interval Events: None new Constitutional: Reports: fatigue; Denies: fever HEENT: Repors: no symptoms Respiratory: Reports: no symptoms, dry cough Cardiovascular: Reports: no symptoms Gastrointestinal/Abdominal: Denies: vomiting Psychiatric: Denies: depression Skin: Denies: rash Musculoskeletal: Denies: pain Allergies: Coded Allergies: No Known Allergies (Unverified , 04/11/20) Objective Last 24 Hour Vital Signs Date Time Temp Pulse Resp B/P (MAP) Pulse Ox O2 Delivery O2 Flow Rate FiO2 05/06/20 09:21 98.2 05/06/20 04:00 98.2 93 18 102/60 (74) 97 05/06/20 02:56 98.3 05/06/20 01:06 98.3 05/06/20 00:00 97.9 90 18 94/62 (73) 97 05/05/20 21:00 Nasal Cannula 2.0 05/05/20 20:00 98.8 78 18 112/82 (92) 95 05/05/20 16:00 98.3 87 18 108/76 (87) 96 05/05/20 12:00 98.1 104 18 113/70 (84) 97 Intake and Output 05/05/20 05/06/20 19:00 07:00 Intake Total 840 ml 480 ml Output Total 800 ml 500 ml Balance 40 ml -20 ml Intake Oral 840 ml 480 ml Output Urine Total 800 ml 500 ml # Voids 1 Objective 05/06 no change 05/05 no change respiratory-salomon; stable no change 05/03 no change; AM labs unavailable 05/02 on and off 2 L NC; NAD 05/01 no change 04/28 on and off 1 L NC; NAD 04/27 on and off 1 L NC; NAD 04/26 still on 1 L NC; NAD 04/25 no change respiratory-salomon 04/24 no change 04/23 on and off 1 lpm NC 04/22 saturating well on and off 1 lpm NC 04/21 no change 04/20 pt saturating well on 2 lpm NC; NAD 04/19 pt saturating well on 2 lpm NC; NAD 04/18 pt saturating well on 2 lpm NC General Appearance: WD/WN, no acute distress HEENT: normocephalic, atraumatic Respiratory: lungs clear Cardiovascular: normal rate, regular rhythm Abdomen: soft, non tender Genitourinary: other - Morales Extremities: no edema Laboratory Tests 05/06/20 06:05: White Blood Count 3.3L, Red Blood Count 3.13L, Hemoglobin 8.7L, Hematocrit 29.1L , Mean Corpuscular Volume 93, Mean Corpuscular Hemoglobin 28.0, Mean Corpuscular Hemoglobin Concent 30.1L, Red Cell Distribution Width 20.0H, Platelet Count 316, Mean Platelet Volume 5.5L, Neutrophils (%) (Auto) , Lymphocytes (%) (Auto) , Monocytes (%) (Auto) , Eosinophils (%) (Auto) , Basophils (%) (Auto) , Ne utrophils % (Manual) [Pending], Lymphocytes % (Manual) [Pending], Platelet Estimate [Pending], Platelet Morphology [Pending], Sodium Level 140, Potassium Level 3.9, Chloride Level 105, Carbon Dioxide Level 30, Anion Gap 5, Blood Urea Nitrogen 9, Creatinine 0.5L, Estimat Glomerular Filtration Rate > 60, Glucose Level 86, Calcium Level 9.6 Current Medications Medications (Trade) Dose Ordered Sig/Angelika Route PRN Reason Start Time Stop Time Status Last Admin Dose Admin Acetaminophen (Tylenol) 650 mg Q6H PRN ORAL Mild Pain (Pain Scale 1-3) 04/12/20 02:45 05/12/20 02:44 05/06/20 00:36 Acetaminophen (Tylenol) 650 mg Q6H PRN ORAL FEVER 04/12/20 16:30 05/12/20 16:29 04/27/20 00:38 Acetaminophen/ Hydrocodone Bitart ([place] 10/325) 1 tab Q6H PRN ORAL severe pain 05/04/20 22:17 05/11/20 22:16 05/06/20 08:51 Acetaminophen/ Hydrocodone Bitart ([place] 5/325) 1 tab Q6H PRN ORAL moderate pain 05/04/20 18:30 05/11/20 18:29 05/05/20 02:25 Allopurinol (allopurinoL) 300 mg DAILY ORAL 04/12/20 09:00 05/12/20 08:59 05/06/20 08:51 Ascorbic Acid (Vitamin C) 500 mg DAILY ORAL 04/26/20 09:00 05/26/20 08:59 05/06/20 08:51 Baclofen (Lioresal) 10 mg THREE TIMES A DAY ORAL 04/12/20 09:00 05/12/20 08:59 05/04/20 09:31 Chlorhexidine Gluconate (Christy-Hex 2%) 1 applic Q24H TOPIC 04/25/20 20:00 07/24/20 19:59 04/30/20 20:46 Docusate Sodium (Colace) 100 mg TWICE A DAY ORAL 04/27/20 09:00 05/20/20 08:59 05/05/20 09:12 Dronabinol (Marinol) 5 mg BID ORAL 05/01/20 09:00 07/30/20 08:59 05/06/20 08:51 Fluconazole (Diflucan) 200 mg DAILY ORAL 05/04/20 14:00 05/09/20 13:59 05/06/20 08:52 Heparin Sodium (Porcine) (Heparin 5000 units/ml) 5,000 units EVERY 8 HOURS SUBQ 04/24/20 22:00 06/08/20 21:59 05/05/20 05:38 Lactulose (Cephulac) 20 gm THREE TIMES A DAY ORAL 04/21/20 13:00 05/21/20 12:59 05/04/20 09:30 Linaclotide (Linzess) 290 mcg BEFORE BREAKFAST ORAL 04/26/20 06:30 07/25/20 06:29 05/06/20 06:47 Magnesium Oxide (Mag-Ox 400mg) 400 mg THREE TIMES A DAY ORAL 04/30/20 13:00 05/30/20 12:59 05/06/20 08:52 Morphine Sulfate (Morphine Sulfate) 2 mg Q3H PRN IVP Severe Pain (Pain Scale 7-10) 05/04/20 19:17 05/11/20 19:16 Morphine Sulfate (Morphine Sulfate) 4 mg Q3H PRN IVP SEVERE BREAKTHRU PAIN 05/04/20 19:18 05/11/20 19:17 Multivitamins (Multivitamins) 1 tab DAILY ORAL 04/26/20 09:00 05/26/20 08:59 05/06/20 08:52 Ondansetron HCl (Zofran) 4 mg Q6H PRN IVP Nausea & Vomiting 04/19/20 13:30 1/15/21 13:29 04/29/20 18:17 Polyethylene Glycol (Miralax) 17 gm DAILY ORAL 04/20/20 09:00 05/20/20 08:59 05/04/20 09:31 Assessment/Plan Assessment/Plan 1. COVID-19 infection - COVID-19 PCR 04/21 positive: cont isolation - no indication for steroid or remdesivir given her normoxemia at this time - s/p cefepime - CXR with diffuse non-specific inflammatory/infectious process - cont supplemental oxygen as needed; currently saturating well on 2L NC - CT A/P/C - no obvious pna or abscess, cultures negative 2. Immunocompromised state with history of non-Hodgkin lymphoma. - on chemo - h/o port line infection; s/p Vanco - to return to [facility] for further Tx 3. Fever; resolved - urine culture showed zee albicans - blood culture showed no growth 4. Hx of Hypertension. 5. Hx of gout. 6. Anemia - s/p pRBC 7. DVT ppx - on SCD 8. Low TSH; improving - Dr. Fermin following - no need for levothyroxine per Dr. Fermin 9. UTI - Urine Cx showed zee albicans - per nephro 10. Hypokalemia - potassium replaced per neprho 11. Hypomagnesemia - Mg replaced per nephro 12. 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
--- NOTE | 2020-05-06 10:49 | Hematology/Onc Progress Note ---
Assessment/Plan Assessment/Plan # Leukopenia COVID19++++++++++ --> hep and hiv order as needed --> wbc 4-->3-->2.9->2->4.6--4.1-->3.6-->4.7-->3.6->4.1 --> Neupogen 300 x1 04/21 --> isolation if anc<500 # Non-Hodgkins Lymphoma is s/p chemotherapy in the past --> to return to [facility] for further treatment --> likely for ct/pet as outpatient --> CT Here shows no e/o disease --> imaging has been reviewed thus far --> end date of 04/2020 # Anemia likely of chronic disease -- does not appear to have iron deficiency --> transfuse as needed, tibc and ferritin are cw acd --> hgb 7.8-->8.6-->8.5-->8.4->7.6-->10-->9.9->9.6 --> no hemolysis is noted --> s/p transfusion on admission # Covid 19++ with SIRS (febrile, tachycardic) --> per pulm and id --> CXR with diffuse non-specific inflammatory/infectious process --> s/p Cefepime (04/14 - 04/15) # Hypokalemia # Hypomagnesia # Chronic Back pain # Full Code # Dvt ppx heparin sq Appreciate consultation and reagan Rn Subjective Allergies: Coded Allergies: No Known Allergies (Unverified , 04/11/20) Subjective Subjective 04/27 reagan rn at bedside, labs are noted, no bleeding, refusing heparin now sq 04/28 labs have been reviewed, is on room air, no bleeding, tachy 04/30 labs pending, no night sweats, meds reviewed, tachy, no night sweats, wants iv iron 05/01 dc planning, meds noted, for labs this am, no new events 05/02 meds reviewed, has been refusing care, continue heparin sq 05/03 labs reviewed, on 2lnc, no bleeding, remains on hep but refusing 05/04 meds ntoed, labs reviewed, no new changes, reagan RN 05/05 meds noted, no bleeding, labs reviewed, no f/c 05/06: no acute events reported, no resp distress Objective Objective Current Medications Medications (Trade) Dose Ordered Sig/Angelika Route PRN Reason Start Time Stop Time Status Last Admin Dose Admin Acetaminophen (Tylenol) 650 mg Q6H PRN ORAL Mild Pain (Pain Scale 1-3) 04/12/20 02:45 05/12/20 02:44 05/06/20 00:36 Acetaminophen (Tylenol) 650 mg Q6H PRN ORAL FEVER 04/12/20 16:30 05/12/20 16:29 04/27/20 00:38 Acetaminophen/ Hydrocodone Bitart ([place] 10/325) 1 tab Q6H PRN ORAL severe pain 05/04/20 22:17 05/11/20 22:16 05/06/20 08:51 Acetaminophen/ Hydrocodone Bitart ([place] 5/325) 1 tab Q6H PRN ORAL moderate pain 05/04/20 18:30 05/11/20 18:29 05/05/20 02:25 Allopurinol (allopurinoL) 300 mg DAILY ORAL 04/12/20 09:00 05/12/20 08:59 05/06/20 08:51 Ascorbic Acid (Vitamin C) 500 mg DAILY ORAL 04/26/20 09:00 05/26/20 08:59 05/06/20 08:51 Baclofen (Lioresal) 10 mg THREE TIMES A DAY ORAL 04/12/20 09:00 05/12/20 08:59 05/04/20 09:31 Chlorhexidine Gluconate (Christy-Hex 2%) 1 applic Q24H TOPIC 04/25/20 20:00 07/24/20 19:59 04/30/20 20:46 Docusate Sodium (Colace) 100 mg TWICE A DAY ORAL 04/27/20 09:00 05/20/20 08:59 05/05/20 09:12 Dronabinol (Marinol) 5 mg BID ORAL 05/01/20 09:00 07/30/20 08:59 05/06/20 08:51 Fluconazole (Diflucan) 200 mg DAILY ORAL 05/04/20 14:00 05/09/20 13:59 05/06/20 08:52 Heparin Sodium (Porcine) (Heparin 5000 units/ml) 5,000 units EVERY 8 HOURS SUBQ 04/24/20 22:00 06/08/20 21:59 05/05/20 05:38 Lactulose (Cephulac) 20 gm THREE TIMES A DAY ORAL 04/21/20 13:00 05/21/20 12:59 05/04/20 09:30 Linaclotide (Linzess) 290 mcg BEFORE BREAKFAST ORAL 04/26/20 06:30 07/25/20 06:29 05/06/20 06:47 Magnesium Oxide (Mag-Ox 400mg) 400 mg THREE TIMES A DAY ORAL 04/30/20 13:00 05/30/20 12:59 05/06/20 08:52 Morphine Sulfate (Morphine Sulfate) 2 mg Q3H PRN IVP Severe Pain (Pain Scale 7-10) 05/04/20 19:17 05/11/20 19:16 Morphine Sulfate (Morphine Sulfate) 4 mg Q3H PRN IVP SEVERE BREAKTHRU PAIN 05/04/20 19:18 05/11/20 19:17 Multivitamins (Multivitamins) 1 tab DAILY ORAL 04/26/20 09:00 05/26/20 08:59 05/06/20 08:52 Ondansetron HCl (Zofran) 4 mg Q6H PRN IVP Nausea & Vomiting 04/19/20 13:30 05/19/20 13:29 04/29/20 18:17 Polyethylene Glycol (Miralax) 17 gm DAILY ORAL 04/20/20 09:00 05/20/20 08:59 05/04/20 09:31 Last 24 Hour Vital Signs Date Time Temp Pulse Resp B/P (MAP) Pulse Ox O2 Delivery O2 Flow Rate FiO2 05/06/20 09:21 98.2 05/06/20 09:00 Nasal Cannula 2.0 05/06/20 08:00 97.9 94 18 106/67 (80) 97 05/06/20 04:00 98.2 93 18 102/60 (74) 97 05/06/20 02:56 98.3 05/06/20 01:06 98.3 05/06/20 00:00 97.9 90 18 94/62 (73) 97 05/05/20 21:00 Nasal Cannula 2.0 05/05/20 20:00 98.8 78 18 112/82 (92) 95 05/05/20 16:00 98.3 87 18 108/76 (87) 96 05/05/20 12:00 98.1 104 18 113/70 (84) 97 05/05/20 09:00 Nasal Cannula 2.0 05/05/20 08:00 97.9 92 18 102/67 (79) 97 05/05/20 07:00 99 Nasal Cannula 2.0 28 05/05/20 04:00 97.8 95 17 112/74 (87) 99 05/05/20 00:00 98.1 82 18 145/96 (112) 96 05/04/20 21:00 Nasal Cannula 2.0 05/04/20 20:13 97 Nasal Cannula 2.0 28 05/04/20 20:00 98.4 102 18 105/69 (81) 98 05/04/20 16:00 97.3 76 19 139/73 (95) 98 05/04/20 12:00 97.3 96 20 129/83 (98) 100 Intake and Output 05/05/20 05/06/20 19:00 07:00 Intake Total 840 ml 480 ml Output Total 800 ml 500 ml Balance 40 ml -20 ml Intake Oral 840 ml 480 ml Output Urine Total 800 ml 500 ml # Voids 1 Labs Test 05/04/20 06:10 05/05/20 08:10 05/06/20 06:05 White Blood Count 4.1 K/UL (4.8-10.8) 4.0 K/UL (4.8-10.8) 3.3 K/UL (4.8-10.8) Red Blood Count 3.40 M/UL (4.20-5.40) 3.88 M/UL (4.20-5.40) 3.13 M/UL (4.20-5.40) Hemoglobin 9.2 G/DL (12.0-16.0) 10.5 G/DL (12.0-16.0) 8.7 G/DL (12.0-16.0) Hematocrit 31.1 % (37.0-47.0) 35.8 % (37.0-47.0) 29.1 % (37.0-47.0) Mean Corpuscular Volume 91 FL (80-99) 92 FL (80-99) 93 FL (80-99) Mean Corpuscular Hemoglobin 27.1 PG (27.0-31.0) 27.0 PG (27.0-31.0) 28.0 PG (27.0-31.0) Mean Corpuscular Hemoglobin Concent 29.6 G/DL (32.0-36.0) 29.3 G/DL (32.0-36.0) 30.1 G/DL (32.0-36.0) Red Cell Distribution Width 18.5 % (11.6-14.8) 18.8 % (11.6-14.8) 20.0 % (11.6-14.8) Platelet Count 334 K/UL (150-450) 382 K/UL (150-450) 316 K/UL (150-450) Mean Platelet Volume 5.9 FL (6.5-10.1) 6.1 FL (6.5-10.1) 5.5 FL (6.5-10.1) Neutrophils (%) (Auto) 69.8 % (45.0-75.0) 73.1 % (45.0-75.0) % (45.0-75.0) Lymphocytes (%) (Auto) 11.7 % (20.0-45.0) 11.2 % (20.0-45.0) % (20.0-45.0) Monocytes (%) (Auto) 10.6 % (1.0-10.0) 8.8 % (1.0-10.0) % (1.0-10.0) Eosinophils (%) (Auto) 5.9 % (0.0-3.0) 5.3 % (0.0-3.0) % (0.0-3.0) Basophils (%) (Auto) 2.0 % (0.0-2.0) 1.7 % (0.0-2.0) % (0.0-2.0) Sodium Level 141 MMOL/L (136-145) 139 MMOL/L (136-145) 140 MMOL/L (136-145) Potassium Level 4.5 MMOL/L (3.5-5.1) 3.4 MMOL/L (3.5-5.1) 3.9 MMOL/L (3.5-5.1) Chloride Level 106 MMOL/L (98-107) 102 MMOL/L (98-107) 105 MMOL/L (98-107) Carbon Dioxide Level 33 MMOL/L (21-32) 31 MMOL/L (21-32) 30 MMOL/L (21-32) Anion Gap 2 mmol/L (5-15) 6 mmol/L (5-15) 5 mmol/L (5-15) Blood Urea Nitrogen 6 mg/dL (7-18) 7 mg/dL (7-18) 9 mg/dL (7-18) Creatinine 0.6 MG/DL (0.55-1.30) 0.6 MG/DL (0.55-1.30) 0.5 MG/DL (0.55-1.30) Estimat Glomerular Filtration Rate > 60 mL/min (>60) > 60 mL/min (>60) > 60 mL/min (>60) Glucose Level 77 MG/DL (74-106) 78 MG/DL (74-106) 86 MG/DL (74-106) Calcium Level 9.4 MG/DL (8.5-10.1) 9.5 MG/DL (8.5-10.1) 9.6 MG/DL (8.5-10.1) Phosphorus Level 3.4 MG/DL (2.5-4.9) Magnesium Level 1.4 MG/DL (1.8-2.4) 2.1 MG/DL (1.8-2.4) Total Bilirubin 0.6 MG/DL (0.2-1.0) Direct Bilirubin 0.2 MG/DL (0.0-0.3) Aspartate Amino Transf (AST/SGOT) 25 U/L (15-37) Alanine Aminotransferase (ALT/SGPT) 8 U/L (12-78) Alkaline Phosphatase 145 U/L (46-116) Total Protein 5.9 G/DL (6.4-8.2) Albumin 2.7 G/DL (3.4-5.0) Differential Total Cells Counted 100 Neutrophils % (Manual) 62 % (45-75) Lymphocytes % (Manual) 18 % (20-45) Monocytes % (Manual) 9 % (1-10) Eosinophils % (Manual) 9 % (0-3) Basophils % (Manual) 0 % (0-2) Myelocytes % 1 % (0-0) Band Neutrophils 1 % (0-8) Platelet Estimate Adequate Platelet Morphology Normal Hypochromasia 1+ Anisocytosis 3+ Height (Feet): 5 Height (Inches): 7.00 Weight (Pounds): 150 Objective Objective Gen: nad Pulm: ctab, no cwr CV: rrr Abd: soft, nt Ext: no cce Talisha Jacobs NP May 06, 2020 10:49
--- NOTE | 2020-05-06 11:40 | NUR ---
CASE MANAGEMENT: REVIEW 05/06/2020 SI;ACUTE POSTHEMORRHAGIC ANEMIA VS: T 97.9 HR 94 RR 18 B/P 106/67 SATS 97% ON 2L/NC LABS: WBC 3.3 CR 0.5 IS:MARINOL PO BID LINZESS PO QAM ALLOPURINOL PO QD DIFLUCAN PO QD LACTULOSE PO TID LIORESAL PO TID MED/SURG
[2020-05-06 12:00] VITALS: BP 113/78
[2020-05-06] MEDS: HYDROcodone/Acetamin 5/325 tab ORAL PRN (13:02)
--- NOTE | 2020-05-06 14:34 | NUR ---
*-*DISCHARGE PLANNING*-* PATIENT HAS BEEN REFERRED TO: [facility] P [phone] S/W ABIMAEL, WILL CALL BACK AFTER REVIEW. [facility] P [phone] S/W KAYLEY, ADMISSIONS IS ON HOLD AT THE MOMENT DUE TO STAFFING ISSUES. [facility] P [phone] S/W TIKORAH, ADMISSIONS NOT AVAILABLE, FOLLOW UP ON FRIDAY. [facility] P [phone] S/W [place], ON LOCK DOWN AT THE MOMENT, NOT ACCEPTING ANY ADMISSIONS AT THE MOMENT, DUE TO COVID. [facility] P [phone] S/W LEXY, ADMISSIONS NOT AVAILABLE, FOLLOW UP ON FRIDAY. [facility] P [phone] S/W ITZEL, ADMISSION GONE OVER THE WEEKEND. [facility] P [phone] S/W [facility], FACILITY ON LOCK DOWN, NOT ACCEPTING ADMISSION AT THE MOMENT. [place] P [phone] S/W NO ANSWER [facility] P [phone] S/W LUNA, ADMISSIONS GONE OVER WEEKEND. [facility] P [phone] S/W ZHENG, FACILITY ON LOCK DOWN UNTIL FURTHER NOTICE.
[2020-05-06 16:00] VITALS: BP 129/76
--- NOTE | 2020-05-06 19:05 | NUR ---
NURSE NOTES: Received report from REA Park. Pt is awake and watching TV. Call light within reach, side rails up x2, IV site intact and patent, will continue to monitor.
--- NOTE | 2020-05-06 19:26 | NUR ---
NURSE HAND-OFF: Important Events on Shift:[pain management, safety and comfort, VS and labs monitoring] Patient Status: [stable] Diet: [regular] Pending Orders: [] Pending Results/Labs:[] Pending MD notification:[] Latest Vital Signs: Temperature 97.5 , Pulse 99 , B/P 129 /76 , Respiratory Rate 18 , O2 SAT 98 , Nasal Cannula, O2 Flow Rate 2.0 . Vital Sign Comment: [] Latest [place] Fall Score: 55 Fall Risk: High Risk Safety Measures: Call light Within Reach, Bed Alarm Zone 1, Side Rails Side Rails x3, Bed position Low and Locked. Fall Precautions: Door Sign Patient Fall Education Report given to [REA Kam].
--- NOTE | 2020-05-06 19:39 | Cardiac Electrophysiology PN ---
Assessment/Plan Assessment/Plan 1. Sinus tachycardia due to sepsis, anemia and COVID. Can not use beta-domenico as blood pressure is 100/70. 2. COVID pneumonia. 3. Hypokalemia. 4. Hypomagnesemia. 5. History of non-Hodgkin lymphoma. 6. Leukopenia and anemia. FU Dr. Valencia S/P PRBC 7. Fever. 8. Low Mg replaced 9. Left Hip Fx; Likely Chronic > Patient states she fell 5 months ago. Also had hard fall on coccyx in 2018. M inimal pain in left hip - Per Dr. Payan. Given patient bed bound risks > benefits. Outpatient consideration DW RN Subjective Subjective No events in Covid isolation. On 2 liter NC. S/P PRBC for 7.6. Has Left hip Fx. Not scheduled for surgery yet. ECG sinus tach 127 Venous Duplex no DVT Objective Last 24 Hour Vital Signs Date Time Temp Pulse Resp B/P (MAP) Pulse Ox O2 Delivery O2 Flow Rate FiO2 05/06/20 19:08 97.5 05/06/20 16:00 97.5 99 18 129/76 (93) 98 05/06/20 13:32 98.3 05/06/20 12:00 98.3 100 18 113/78 (90) 96 05/06/20 09:21 98.2 05/06/20 09:00 Nasal Cannula 2.0 05/06/20 08:00 97.9 94 18 106/67 (80) 97 05/06/20 04:00 98.2 93 18 102/60 (74) 97 05/06/20 02:56 98.3 05/06/20 01:06 98.3 05/06/20 00:00 97.9 90 18 94/62 (73) 97 05/05/20 21:00 Nasal Cannula 2.0 05/05/20 20:00 98.8 78 18 112/82 (92) 95 Intake and Output 05/05/20 05/06/20 19:00 07:00 Intake Total 840 ml 480 ml Output Total 800 ml 500 ml Balance 40 ml -20 ml Intake Oral 840 ml 480 ml Output Urine Total 800 ml 500 ml # Voids 1 Laboratory Tests Test 05/06/20 06:05 White Blood Count 3.3 K/UL (4.8-10.8) L Red Blood Count 3.13 M/UL (4.20-5.40) L Hemoglobin 8.7 G/DL (12.0-16.0) L Hematocrit 29.1 % (37.0-47.0) L Mean Corpuscular Volume 93 FL (80-99) Mean Corpuscular Hemoglobin 28.0 PG (27.0-31.0) Mean Corpuscular Hemoglobin Concent 30.1 G/DL (32.0-36.0) L Red Cell Distribution Width 20.0 % (11.6-14.8) H Platelet Count 316 K/UL (150-450) Mean Platelet Volume 5.5 FL (6.5-10.1) L Neutrophils (%) (Auto) % (45.0-75.0) Lymphocytes (%) (Auto) % (20.0-45.0) Monocytes (%) (Auto) % (1.0-10.0) Eosinophils (%) (Auto) % (0.0-3.0) Basophils (%) (Auto) % (0.0-2.0) Differential Total Cells Counted 100 Neutrophils % (Manual) 62 % (45-75) Lymphocytes % (Manual) 18 % (20-45) L Monocytes % (Manual) 9 % (1-10) Eosinophils % (Manual) 9 % (0-3) H Basophils % (Manual) 0 % (0-2) Myelocytes % 1 % (0-0) H Band Neutrophils 1 % (0-8) Platelet Estimate Adequate Platelet Morphology Normal Hypochromasia 1+ Anisocytosis 3+ Sodium Level 140 MMOL/L (136-145) Potassium Level 3.9 MMOL/L (3.5-5.1) Chloride Level 105 MMOL/L (98-107) Carbon Dioxide Level 30 MMOL/L (21-32) Anion Gap 5 mmol/L (5-15) Blood Urea Nitrogen 9 mg/dL (7-18) Creatinine 0.5 MG/DL (0.55-1.30) L Estimat Glomerular Filtration Rate > 60 mL/min (>60) Glucose Level 86 MG/DL (74-106) Calcium Level 9.6 MG/DL (8.5-10.1) Objective HEAD AND NECK: No JVD. LUNGS: Coarse rhonchi. CARDIOVASCULAR: Regular S1 and S2 with no gallop or murmur. ABDOMEN: Soft. EXTREMITIES: No pitting edema. Ehsan Wan MD May 06, 2020 19:39
[2020-05-06 20:00] VITALS: BP 113/74
[2020-05-06] MEDS: Dyna-Hex 2% Top Sol 2oz TOPIC SCH (20:00)
--- NOTE | 2020-05-06 20:34 | Neurology Progress Note ---
Interim History Interim History ROS Limited/Unobtainable: No Interim History doing better no new deficits Objective Physical Exam Last Vital Signs Date Time Temp Pulse Resp B/P (MAP) Pulse Ox O2 Delivery O2 Flow Rate FiO2 05/06/20 19:08 97.5 05/06/20 16:00 99 18 129/76 (93) 98 05/06/20 09:00 Nasal Cannula 2.0 05/05/20 07:00 28 Laboratory Tests Test 05/06/20 06:05 White Blood Count 3.3 K/UL (4.8-10.8) L Red Blood Count 3.13 M/UL (4.20-5.40) L Hemoglobin 8.7 G/DL (12.0-16.0) L Hematocrit 29.1 % (37.0-47.0) L Mean Corpuscular Volume 93 FL (80-99) Mean Corpuscular Hemoglobin 28.0 PG (27.0-31.0) Mean Corpuscular Hemoglobin Concent 30.1 G/DL (32.0-36.0) L Red Cell Distribution Width 20.0 % (11.6-14.8) H Platelet Count 316 K/UL (150-450) Mean Platelet Volume 5.5 FL (6.5-10.1) L Neutrophils (%) (Auto) % (45.0-75.0) Lymphocytes (%) (Auto) % (20.0-45.0) Monocytes (%) (Auto) % (1.0-10.0) Eosinophils (%) (Auto) % (0.0-3.0) Basophils (%) (Auto) % (0.0-2.0) Differential Total Cells Counted 100 Neutrophils % (Manual) 62 % (45-75) Lymphocytes % (Manual) 18 % (20-45) L Monocytes % (Manual) 9 % (1-10) Eosinophils % (Manual) 9 % (0-3) H Basophils % (Manual) 0 % (0-2) Myelocytes % 1 % (0-0) H Band Neutrophils 1 % (0-8) Platelet Estimate Adequate Platelet Morphology Normal Hypochromasia 1+ Anisocytosis 3+ Sodium Level 140 MMOL/L (136-145) Potassium Level 3.9 MMOL/L (3.5-5.1) Chloride Level 105 MMOL/L (98-107) Carbon Dioxide Level 30 MMOL/L (21-32) Anion Gap 5 mmol/L (5-15) Blood Urea Nitrogen 9 mg/dL (7-18) Creatinine 0.5 MG/DL (0.55-1.30) L Estimat Glomerular Filtration Rate > 60 mL/min (>60) Glucose Level 86 MG/DL (74-106) Calcium Level 9.6 MG/DL (8.5-10.1) Impression/Recommendations Problems: (1) Anemia Status: stable Diagnostic Impression Chronic weakness, LE worse than UEs MRI spine noted, osteoma wo spine compression slplaminectomy COVID 19 pneumonia (febrile, tachycardic) Hx of Lymphoma cont medical support pain control PT as able Renny Bajwa MD May 06, 2020 20:34
--- NOTE | 2020-05-06 21:00 | General Progress Note ---
Subjective Allergies: Coded Allergies: No Known Allergies (Unverified , 04/11/20) Subjective No acute events overnight per nursing. Venous duplex negative. No chest pain, palpitations, SOB, nausea vomiting. No syncope or near syncope. Pain well controlled Review of systems: Constitutional: Denies: chills, diaphoresis, malaise, weakness, HEENT: Denies: eye pain, blurred vision, double vision, ear pain, nose pain, throat pain, Cardiovascular: Denies: chest pain, edema, lightheadedness, palpitations Respiratory: No sob, cough, milton Gastrointestinal/Abdominal: Denies: abdominal pain, black stools, blood in stool, constipation, diarrhea, nausea, poor fluid intake vomiting, other Genitourinary: Denies: burning, discharge, frequency, Neurologic/Psychiatric: Denies: headache, numbness, paresthesia, new weakness, other Endocrine: Denies: excessive sweating, flushing, intolerance to cold, MSK: denies joint pains, swelling, stiffness +back pain (improving) Hematologic/Lymphatic: Denies: anemia, easy bleeding, easy bruising, Objective Last 24 Hour Vital Signs Date Time Temp Pulse Resp B/P (MAP) Pulse Ox O2 Delivery O2 Flow Rate FiO2 05/06/20 19:08 97.5 05/06/20 16:00 97.5 99 18 129/76 (93) 98 05/06/20 13:32 98.3 05/06/20 12:00 98.3 100 18 113/78 (90) 96 05/06/20 09:21 98.2 05/06/20 09:00 Nasal Cannula 2.0 05/06/20 08:00 97.9 94 18 106/67 (80) 97 05/06/20 04:00 98.2 93 18 102/60 (74) 97 05/06/20 02:56 98.3 05/06/20 01:06 98.3 05/06/20 00:00 97.9 90 18 94/62 (73) 97 05/05/20 21:00 Nasal Cannula 2.0 Intake and Output 05/05/20 05/06/20 19:00 07:00 Intake Total 840 ml 480 ml Output Total 800 ml 500 ml Balance 40 ml -20 ml Intake Oral 840 ml 480 ml Output Urine Total 800 ml 500 ml # Voids 1 Laboratory Tests 05/06/20 06:05: White Blood Count 3.3L, Red Blood Count 3.13L, Hemoglobin 8.7L, Hematocrit 29.1L , Mean Corpuscular Volume 93, Mean Corpuscular Hemoglobin 28.0, Mean Corpuscular Hemoglobin Concent 30.1L, Red Cell Distribution Width 20.0H, Platelet Count 316, Mean Platelet Volume 5.5L, Neutrophils (%) (Auto) , Lymphocytes (%) (Auto) , Monocytes (%) (Auto) , Eosinophils (%) (Auto) , Basophils (%) (Auto) , Differential Total Cells Counted 100, Neutrophils % (Manual) 62, Lymphocytes % (Manual) 18L, Monocytes % (Manual) 9, Eosinophils % (Manual) 9H, Basophils % (Manual) 0, Myelocytes % 1H, Band Neutrophils 1, Platelet Estimate Adequate, Perla telet Morphology Normal, Hypochromasia 1+, Anisocytosis 3+, Sodium Level 140, Potassium Level 3.9, Chloride Level 105, Carbon Dioxide Level 30, Anion Gap 5, Blood Urea Nitrogen 9, Creatinine 0.5L, Estimat Glomerular Filtration Rate > 60, Glucose Level 86, Calcium Level 9.6 Height (Feet): 5 Height (Inches): 7.00 Weight (Pounds): 150 Objective General: WDWN female in NAD, A&O x 4 HEENT: Normocephalic cephalic atraumatic, pupils equal round reactive to light and accommodation, nares patent and no symmetrical, no tonsillar exudates, mucous membranes moist CV: Regular rate regular rhythm, no murmurs, rubs, or gallops + POrt site is C/d/i. Pulm: Lungs clear to auscultation bilaterally. No wheezes, rhonchi, or rales GI: Soft, nontender, nondistended, bowel sounds present + eaton in place, no suprapubic TTP Neuro: CN 2-12 intact bilaterally, no focal signs. Moving all extremities Ext: +Trace LE edema and tenderness bilaterally Skin: no rashes lesions or ulcers Msk: Joints symmetrical in upper extremity and lower extremity bilaterally, no joint swelling. + left hip pain (slightly) Lymph: No lymphadenopathy in upper extremity and lower extremity Assessment/Plan Status: stable Assessment/Plan: #Left Hip Fx; Likely Chronic > Patient states she fell 5 months ago but no recent falls. Also had hard fall on coccyx in 2018. Minimal pain in left hip > Patient states she has not walked for months but is not paraplegic. Severe debilitation. - appreciate ortho eval: Dr. Payan. Given patient bed bound risks > benefits. Outpatient consideration - NWB LLE -Per Ortho, no immediate surgical indication, but will need OP f/u -Confirm weight bearing recs for PT -Patient would like plan confirmed for surgery prior to d/c given she is feeling very debilitated- F/U with ortho -d/w Cardiology. Not a candidate for surgery right now. Outpatient follow up. -Pending placement vs Home w/ HH #Lesia UTI - FLuconazole 200mg daily for 5 days (05/04 - ) - Abx per ID - monitor QTC #LE edema/pain - venous duplex to rule out DVT: negative - SCDs #Sepsis 2/2 PORT infection, S/P Port Removal -Resolved #COVID 19 pneumonia (febrile, tachycardic)-Currently saturating well on 2L NC -Appreciate ID -S/p Vanco and Cefepime Tx-Cultures noted -Continue NC Support -If she goes home, may need home 02; consider ABG but await PT eval #Lymphoma-was receiving Chemo--> Known mets to spine ( see MRI ) #Pancytopenia including Blood Transfusion Requiring Anemia --> S/P PRBC transfusions and Neupogen, likely related to chemo/marrow suppression #L3 Lesion on MRI -Appreciate Oncology -Appreciate Radiation Oncology -Resume chemo as outpatient #Hypothyroidism, suspect central given TSH and T4 both low -Appreciate Endocrine Recs -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 COVID vs. cancer related? - appears to have resolved - CTM Fever curve. Could be due to underlying malignancy - Repeat Blood cultures NGTD - Repeat UA: negative - Repeat CXR: Bronchial thickening - Check CT C/A/P including CT angio to eval for PE. : reviewed. No PE. No obvious infection. Incidental left hip fracture - IV fluids as needed - D/W ID. - Port has been removed at OSH - BC, UC - ngtd - Cefepime (04/14 - 04/15) - Per patient she is to continue on Vancomycin till 04/25 - D/c vanc - ID Consult, appreciate recs - MRI C/T/L spine w/wo contrast to eval for abscess: No sign of infection, abscess or osteo #JIM, pre-renal vs. due to vanc toxicity - resolved > Vanc level 35 - urine lytes - Nephrology on board: D/w Dr. hatch - Fluids per nephro #Hx of Lymphoma #leukopenia improving > S/p mets to spine s/p surgery earlier this year and XRT/Chemo > Last chemo in February 2020 - All information per patient - Oncology following, appreciate recs - Can continue current therapy with outpatient onc - No acute interventions needed inpatient - Neupogen x 1 04/21 #Acute blood loss anemia - resolving #anemia of chronic disease #Normocytic anemia Patient presented with Hb 6.7 with normal MCV. History of lymphoma per patient and is receiving chemo tx, last known to be February 2020. - 2U PRBCs ordered and transfused on admission - Hb Stable - Rectic count wnl, Iron and Iron sat low, Ferritin wnl - No active signs of bleeding - Hematology consulted, appreciate recs - CTM for signs of bleeding - Patient will need colonoscopy as outpatient in the future : Gi Consulted; Dr. Carter #sinus tachycardia, due to COVID pna - monitor EKG - Cardiology consulted: Dr. Wan #proctitis #Constipation- > improving - Aggressive bowel regimen - GI aware: Appreciate recommendations - Colace, miralax, - s/p enema and ducolax with improvement #chronic urinary retention - since patient had spine surgery earlier in the year - unsure if has true urinary retention - d/w nephrology -> voiding trial, however patient refused. #Hypokalemia #hypomagnesia - Lytes replaced - appreciate nephro management FENPPX DVTPPX: SCDs. Patient refusing DVT ppx shots (risks of of refusal including life threatening blood clot and PE explained to patient but still wishes to refuse) Fluids: per nephro Diet: regular Lines: PIV PT/OT: pending Code status:Full Dispo: back to SNF Reason for Continued Hospitalization: hypoxia, fever Dispo - Discharge back to SNF. MIPS (Merit-based Incentive Payment System) Applicable CPT: 71664, 54332 CHECK ALL THAT ARE MET: [] Measure #5 (CHF): All ages. Prescribe LINDSAY/ARB upon discharge for patients with left ventricular systolic dysfunction. If not, the reason is clearly do cumented in the medical chart [] Measure #8 (CHF): All ages. Prescribe a beta domenico upon discharge for patients with left ventricular systolic dysfunction. If not, the reason is clearly documented in the medical chart. [x] Measure #47: Advance care plan or surrogate decision maker documented in the medical record. [x] Measure #130 The provider has documented, updated, or reviewed the patients current medication list and has documented it in the patients note. [] Measure #374 (All): Send report to referring provider. [] Measure #407(Sepsis due to MSSA bacteremia): Age 18+ Patient treated with a beta-lactam antibiotic (Nafcillin, Oxacillin or Cefazolin) as definitive therapy. MEDICAL COMPLEXITYHigh complexity medical decision making (need 2/3 carlos gories)Problem - need 4 points [x]Acute/new problem with new plan for workup (4 points, 1 max) [] Acute/new problem without additional workup (3 points, 1 max) [] Unstable chronic problem actively being managed (2 point each, 2 max) [x] Stable chronic problem actively being managed (1 point each, 2 max) [x] Self-limited/transient process (constipation, muscle ache, etc) (1 point each, 2 max) Data - need 4 points [x] Reviewed labs/imaging studies (1 points, 2 max) [x] Independent review of imaging (EKG, xrays, etc) (2 points, 2 max) [x] Discussed case with consult/other MD/RN (2 points, 2 max) High Risk - qualify if have one of the following: [x] Severe exacerbation of acute problem, acute mental status change, IV narcotics, monitoring drug levels (vancomycin, INR, tacrolimus etc) I spent 36 minutes on this patient's case, and 20 mins was dedicated to counseling and/or care coordination. Discussed with nephrology,cardiology, RN at bedside. Time of note may not reflect time of encounter Jus Brunner D.O. May 06, 2020 21:00
[2020-05-07] VITALS: BP 113/79
[2020-05-07] MEDS: HYDROcodone/Acetamin 10/325 tab ORAL PRN ×3 (03:11→20:54)
[2020-05-07 04:00] VITALS: BP 101/61
[2020-05-07] MEDS: Heparin 5000 units/ml inj SUBQ SCH ×3 (06:00→20:53)
--- NOTE | 2020-05-07 07:10 | NUR ---
NURSE HAND-OFF: Important Events on Shift: none Patient Status: calm and awake Diet: regular Pending Orders: Pending Results/Labs: Pending MD notification: Latest Vital Signs: Temperature 98.2 , Pulse 95 , B/P 101 /61 , Respiratory Rate 18 , O2 SAT 96 , Nasal Cannula, O2 Flow Rate 2.0 . Vital Sign Comment: VSS Latest [place]rb[place] Fall Score: 55 Fall Risk: High Risk Safety Measures: Call light Within Reach, Bed Alarm Zone 1, Side Rails Side Rails x3, Bed position Low and Locked. Fall Precautions: Door Sign Patient Fall Education Report given to REA Park.
--- NOTE | 2020-05-07 07:15 | NUR ---
NURSE NOTES: Report received from REA Elder. Pt awake in bed, alert and oriented x 4, no SOB, bed in lowest position breaks engaged and alarm on, denies any pain at this time, IV line present and intact r hand, on NC at 2 lpm, FC in place, on contact and droplet precautions for COVID 19, will continue to monitor and proceed with plan of care, call light within reach.
[2020-05-07 08:00] VITALS: BP 102/61
[2020-05-07] MEDS: Magnesium Oxide 400mg tab ORAL SCH ×3 (08:38→17:36)
[2020-05-07] MEDS: Dronabinol 2.5mg Cap ORAL SCH ×2 (08:38→17:36)
[2020-05-07] MEDS: Lactulose 20gm/30ml UDC ORAL SCH ×3 (08:38→17:27)
[2020-05-07] MEDS: Fluconazole 100mg tab ORAL SCH (08:38)
[2020-05-07] MEDS: Docusate 100mg cap ORAL SCH ×2 (08:38→17:27)
[2020-05-07] MEDS: Ascorbic Acid 500mg tab ORAL SCH (08:38)
[2020-05-07] MEDS: HYDROcodone/Acetamin 5/325 tab ORAL PRN (08:38)
[2020-05-07] MEDS: Miralax 17gm pkt ORAL SCH (08:39)
--- NOTE | 2020-05-07 11:24 | Pulmonology Progress Note ---
Subjective ROS Limited/Unobtainable: No Interval Events: None new Constitutional: Reports: fatigue; Denies: fever HEENT: Repors: no symptoms Respiratory: Reports: no symptoms, dry cough Cardiovascular: Reports: no symptoms Gastrointestinal/Abdominal: Denies: vomiting Psychiatric: Denies: depression Skin: Denies: rash Musculoskeletal: Denies: pain Allergies: Coded Allergies: No Known Allergies (Unverified , 04/11/20) Objective Last 24 Hour Vital Signs Date Time Temp Pulse Resp B/P (MAP) Pulse Ox O2 Delivery O2 Flow Rate FiO2 05/07/20 09:08 97.5 05/07/20 09:00 Nasal Cannula 2.0 05/07/20 08:00 97.5 100 18 102/61 (75) 96 05/07/20 04:00 98.2 18 101/61 (74) 96 05/07/20 00:00 98.0 95 18 113/79 (90) 96 05/06/20 21:00 Nasal Cannula 2.0 05/06/20 20:08 97 Nasal Cannula 2.0 28 05/06/20 20:00 97.9 97 18 113/74 (87) 98 05/06/20 19:08 97.5 05/06/20 16:00 97.5 99 18 129/76 (93) 98 05/06/20 13:32 98.3 05/06/20 12:00 98.3 100 18 113/78 (90) 96 Intake and Output 05/06/20 05/07/20 19:00 07:00 Intake Total 1100 ml Output Total 800 ml 550 ml Balance 300 ml -550 ml Intake Oral 400 ml Other 700 ml Output Urine Total 800 ml 550 ml # Voids 1 Objective 05/07 stable saturation 05/06 no change 05/05 no change respiratory-salomon; stable no change 05/03 no change; AM labs unavailable 05/02 on and off 2 L NC; NAD 05/01 no change 04/28 on and off 1 L NC; NAD 04/27 on and off 1 L NC; NAD 04/26 still on 1 L NC; NAD 04/25 no change respiratory-salomon 04/24 no change 04/23 on and off 1 lpm NC 04/22 saturating well on and off 1 lpm NC 04/21 no change 04/20 pt saturating well on 2 lpm NC; NAD 04/19 pt saturating well on 2 lpm NC; NAD 04/18 pt saturating well on 2 lpm NC General Appearance: WD/WN, no acute distress HEENT: normocephalic, atraumatic Respiratory: lungs clear Cardiovascular: normal rate, regular rhythm Abdomen: soft, non tender Genitourinary: other - Morales Extremities: no edema Current Medications Medications (Trade) Dose Ordered Sig/Angelika Route PRN Reason Start Time Stop Time Status Last Admin Dose Admin Acetaminophen (Tylenol) 650 mg Q6H PRN ORAL Mild Pain (Pain Scale 1-3) 04/12/20 02:45 05/12/20 02:44 05/06/20 00:36 Acetaminophen (Tylenol) 650 mg Q6H PRN ORAL FEVER 04/12/20 16:30 05/12/20 16:29 04/27/20 00:38 Acetaminophen/ Hydrocodone Bitart (Artemus 10/325) 1 tab Q6H PRN ORAL severe pain 05/04/20 22:17 05/11/20 22:16 05/07/20 03:11 Acetaminophen/ Hydrocodone Bitart (Artemus 5/325) 1 tab Q6H PRN ORAL moderate pain 05/04/20 18:30 05/11/20 18:29 05/07/20 08:38 Allopurinol (allopurinoL) 300 mg DAILY ORAL 04/12/20 09:00 05/12/20 08:59 05/07/20 08:37 Ascorbic Acid (Vitamin C) 500 mg DAILY ORAL 04/26/20 09:00 05/26/20 08:59 05/07/20 08:38 Baclofen (Lioresal) 10 mg THREE TIMES A DAY ORAL 04/12/20 09:00 05/12/20 08:59 05/04/20 09:31 Chlorhexidine Gluconate (Christy-Hex 2%) 1 applic Q24H TOPIC 04/25/20 20:00 07/24/20 19:59 04/30/20 20:46 Docusate Sodium (Colace) 100 mg TWICE A DAY ORAL 04/27/20 09:00 05/20/20 08:59 05/05/20 09:12 Dronabinol (Marinol) 5 mg BID ORAL 05/01/20 09:00 07/30/20 08:59 05/07/20 08:38 Fluconazole (Diflucan) 200 mg DAILY ORAL 05/04/20 14:00 05/09/20 13:59 05/07/20 08:38 Heparin Sodium (Porcine) (Heparin 5000 units/ml) 5,000 units EVERY 8 HOURS SUBQ 04/24/20 22:00 06/08/20 21:59 05/05/20 05:38 Lactulose (Cephulac) 20 gm THREE TIMES A DAY ORAL 04/21/20 13:00 05/21/20 12:59 05/04/20 09:30 Linaclotide (Linzess) 290 mcg BEFORE BREAKFAST ORAL 04/26/20 06:30 07/25/20 06:29 05/06/20 06:47 Magnesium Oxide (Mag-Ox 400mg) 400 mg THREE TIMES A DAY ORAL 04/30/20 13:00 05/30/20 12:59 05/07/20 08:38 Morphine Sulfate (Morphine Sulfate) 2 mg Q3H PRN IVP Severe Pain (Pain Scale 7-10) 05/04/20 19:17 05/11/20 19:16 Morphine Sulfate (Morphine Sulfate) 4 mg Q3H PRN IVP SEVERE BREAKTHRU PAIN 05/04/20 19:18 05/11/20 19:17 Multivitamins (Multivitamins) 1 tab DAILY ORAL 04/26/20 09:00 05/26/20 08:59 05/07/20 08:38 Ondansetron HCl (Zofran) 4 mg Q6H PRN IVP Nausea & Vomiting 04/19/20 13:30 05/19/20 13:29 04/29/20 18:17 Polyethylene Glycol (Miralax) 17 gm DAILY ORAL 04/20/20 09:00 05/20/20 08:59 05/04/20 09:31 Assessment/Plan Assessment/Plan 1. COVID-19 infection - COVID-19 PCR 04/21 positive: cont isolation - no indication for steroid or remdesivir given her normoxemia at this time - s/p cefepime - CXR with diffuse non-specific inflammatory/infectious process - cont supplemental oxygen as needed; currently saturating well on 2L NC - CT A/P/C - no obvious pna or abscess, cultures negative 2. Immunocompromised state with history of non-Hodgkin lymphoma. - on chemo - h/o port line infection; s/p Vanco - to return to [facility] for further Tx 3. Fever; resolved - urine culture showed zee albicans - blood culture showed no growth 4. Hx of Hypertension. 5. Hx of gout. 6. Anemia - s/p pRBC 7. DVT ppx - on SCD 8. Low TSH; improving - Dr. Fermin following - no need for levothyroxine per Dr. Fermin 9. UTI - Urine Cx showed zee albicans - per nephro 10. Hypokalemia - potassium replaced per neprho 11. Hypomagnesemia - Mg replaced per nephro 12. 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
[2020-05-07 12:00] VITALS: BP 110/69
--- NOTE | 2020-05-07 12:17 | Hematology/Onc Progress Note ---
Assessment/Plan Assessment/Plan # Leukopenia COVID19++++++++++ --> hep and hiv order as needed --> wbc 4-->3-->2.9->2->4.6--4.1-->3.6-->4.7-->3.6->4.1 --> Neupogen 300 x1 04/21 --> isolation if anc<500 # Non-Hodgkins Lymphoma is s/p chemotherapy in the past --> to return to [facility] for further treatment --> likely for ct/pet as outpatient --> CT Here shows no e/o disease --> imaging has been reviewed thus far --> end date of 04/2020 # Anemia likely of chronic disease -- does not appear to have iron deficiency --> transfuse as needed, tibc and ferritin are cw acd --> hgb 7.8-->8.6-->8.5-->8.4->7.6-->10-->9.9->9.6 --> no hemolysis is noted --> s/p transfusion on admission # Covid 19++ with SIRS (febrile, tachycardic) --> per pulm and id --> CXR with diffuse non-specific inflammatory/infectious process --> s/p Cefepime (04/14 - 04/15) # Hypokalemia --> replete as needed # Hypomagnesia # Chronic Back pain # Full Code # Dvt ppx heparin sq Appreciate consultation and reagan Rn Subjective Allergies: Coded Allergies: No Known Allergies (Unverified , 04/11/20) Subjective Subjective 04/27 reagan rn at bedside, labs are noted, no bleeding, refusing heparin now sq 04/28 labs have been reviewed, is on room air, no bleeding, tachy 04/30 labs pending, no night sweats, meds reviewed, tachy, no night sweats, wants iv iron 05/01 dc planning, meds noted, for labs this am, no new events 05/02 meds reviewed, has been refusing care, continue heparin sq 05/03 labs reviewed, on 2lnc, no bleeding, remains on hep but refusing 05/04 meds ntoed, labs reviewed, no new changes, reagan RN 05/05 meds noted, no bleeding, labs reviewed, no f/c 05/06: no acute events reported, no resp distress 05/07: no resp distress, vss on RA dc planning continues Objective Objective Current Medications Medications (Trade) Dose Ordered Sig/Angelika Route PRN Reason Start Time Stop Time Status Last Admin Dose Admin Acetaminophen (Tylenol) 650 mg Q6H PRN ORAL Mild Pain (Pain Scale 1-3) 04/12/20 02:45 05/12/20 02:44 05/06/20 00:36 Acetaminophen (Tylenol) 650 mg Q6H PRN ORAL FEVER 04/12/20 16:30 05/12/20 16:29 04/27/20 00:38 Acetaminophen/ Hydrocodone Bitart (Troy 10/325) 1 tab Q6H PRN ORAL severe pain 05/04/20 22:17 05/11/20 22:16 05/07/20 03:11 Acetaminophen/ Hydrocodone Bitart (T[place] 5/325) 1 tab Q6H PRN ORAL moderate pain 05/04/20 18:30 05/11/20 18:29 05/07/20 08:38 Allopurinol (allopurinoL) 300 mg DAILY ORAL 04/12/20 09:00 05/12/20 08:59 05/07/20 08:37 Ascorbic Acid (Vitamin C) 500 mg DAILY ORAL 04/26/20 09:00 05/26/20 08:59 05/07/20 08:38 Baclofen (Lioresal) 10 mg THREE TIMES A DAY ORAL 04/12/20 09:00 05/12/20 08:59 05/04/20 09:31 Chlorhexidine Gluconate (Christy-Hex 2%) 1 applic Q24H TOPIC 04/25/20 20:00 07/24/20 19:59 04/30/20 20:46 Docusate Sodium (Colace) 100 mg TWICE A DAY ORAL 04/27/20 09:00 05/20/20 08:59 05/05/20 09:12 Dronabinol (Marinol) 5 mg BID ORAL 05/01/20 09:00 07/30/20 08:59 05/07/20 08:38 Fluconazole (Diflucan) 200 mg DAILY ORAL 05/04/20 14:00 05/09/20 13:59 05/07/20 08:38 Heparin Sodium (Porcine) (Heparin 5000 units/ml) 5,000 units EVERY 8 HOURS SUBQ 04/24/20 22:00 06/08/20 21:59 05/05/20 05:38 Lactulose (Cephulac) 20 gm THREE TIMES A DAY ORAL 04/21/20 13:00 05/21/20 12:59 05/04/20 09:30 Linaclotide (Linzess) 290 mcg BEFORE BREAKFAST ORAL 04/26/20 06:30 07/25/20 06:29 05/06/20 06:47 Magnesium Oxide (Mag-Ox 400mg) 400 mg THREE TIMES A DAY ORAL 04/30/20 13:00 05/30/20 12:59 05/07/20 08:38 Morphine Sulfate (Morphine Sulfate) 2 mg Q3H PRN IVP Severe Pain (Pain Scale 7-10) 05/04/20 19:17 05/11/20 19:16 Morphine Sulfate (Morphine Sulfate) 4 mg Q3H PRN IVP SEVERE BREAKTHRU PAIN 05/04/20 19:18 05/11/20 19:17 Multivitamins (Multivitamins) 1 tab DAILY ORAL 04/26/20 09:00 05/26/20 08:59 05/07/20 08:38 Ondansetron HCl (Zofran) 4 mg Q6H PRN IVP Nausea & Vomiting 04/19/20 13:30 05/19/20 13:29 04/29/20 18:17 Polyethylene Glycol (Miralax) 17 gm DAILY ORAL 04/20/20 09:00 05/20/20 08:59 05/04/20 09:31 Last 24 Hour Vital Signs Date Time Temp Pulse Resp B/P (MAP) Pulse Ox O2 Delivery O2 Flow Rate FiO2 05/07/20 09:08 97.5 05/07/20 09:00 Nasal Cannula 2.0 05/07/20 08:00 97.5 100 18 102/61 (75) 96 05/07/20 04:00 98.2 18 101/61 (74) 96 05/07/20 00:00 98.0 95 18 113/79 (90) 96 05/06/20 21:00 Nasal Cannula 2.0 05/06/20 20:08 97 Nasal Cannula 2.0 28 05/06/20 20:00 97.9 97 18 113/74 (87) 98 05/06/20 19:08 97.5 05/06/20 16:00 97.5 99 18 129/76 (93) 98 05/06/20 13:32 98.3 05/06/20 12:00 98.3 100 18 113/78 (90) 96 05/06/20 09:21 98.2 05/06/20 09:00 Nasal Cannula 2.0 05/06/20 08:00 97.9 94 18 106/67 (80) 97 05/06/20 04:00 98.2 93 18 102/60 (74) 97 05/06/20 02:56 98.3 05/06/20 01:06 98.3 05/06/20 00:00 97.9 90 18 94/62 (73) 97 05/05/20 21:00 Nasal Cannula 2.0 05/05/20 20:00 98.8 78 18 112/82 (92) 95 05/05/20 16:00 98.3 87 18 108/76 (87) 96 Intake and Output 05/06/20 05/07/20 19:00 07:00 Intake Total 1100 ml Output Total 800 ml 550 ml Balance 300 ml -550 ml Intake Oral 400 ml Other 700 ml Output Urine Total 800 ml 550 ml # Voids 1 Labs Test 05/05/20 08:10 05/06/20 06:05 White Blood Count 4.0 K/UL (4.8-10.8) 3.3 K/UL (4.8-10.8) Red Blood Count 3.88 M/UL (4.20-5.40) 3.13 M/UL (4.20-5.40) Hemoglobin 10.5 G/DL (12.0-16.0) 8.7 G/DL (12.0-16.0) Hematocrit 35.8 % (37.0-47.0) 29.1 % (37.0-47.0) Mean Corpuscular Volume 92 FL (80-99) 93 FL (80-99) Mean Corpuscular Hemoglobin 27.0 PG (27.0-31.0) 28.0 PG (27.0-31.0) Mean Corpuscular Hemoglobin Concent 29.3 G/DL (32.0-36.0) 30.1 G/DL (32.0-36.0) Red Cell Distribution Width 18.8 % (11.6-14.8) 20.0 % (11.6-14.8) Platelet Count 382 K/UL (150-450) 316 K/UL (150-450) Mean Platelet Volume 6.1 FL (6.5-10.1) 5.5 FL (6.5-10.1) Neutrophils (%) (Auto) 73.1 % (45.0-75.0) % (45.0-75.0) Lymphocytes (%) (Auto) 11.2 % (20.0-45.0) % (20.0-45.0) Monocytes (%) (Auto) 8.8 % (1.0-10.0) % (1.0-10.0) Eosinophils (%) (Auto) 5.3 % (0.0-3.0) % (0.0-3.0) Basophils (%) (Auto) 1.7 % (0.0-2.0) % (0.0-2.0) Sodium Level 139 MMOL/L (136-145) 140 MMOL/L (136-145) Potassium Level 3.4 MMOL/L (3.5-5.1) 3.9 MMOL/L (3.5-5.1) Chloride Level 102 MMOL/L (98-107) 105 MMOL/L (98-107) Carbon Dioxide Level 31 MMOL/L (21-32) 30 MMOL/L (21-32) Anion Gap 6 mmol/L (5-15) 5 mmol/L (5-15) Blood Urea Nitrogen 7 mg/dL (7-18) 9 mg/dL (7-18) Creatinine 0.6 MG/DL (0.55-1.30) 0.5 MG/DL (0.55-1.30) Estimat Glomerular Filtration Rate > 60 mL/min (>60) > 60 mL/min (>60) Glucose Level 78 MG/DL (74-106) 86 MG/DL (74-106) Calcium Level 9.5 MG/DL (8.5-10.1) 9.6 MG/DL (8.5-10.1) Magnesium Level 2.1 MG/DL (1.8-2.4) Differential Total Cells Counted 100 Neutrophils % (Manual) 62 % (45-75) Lymphocytes % (Manual) 18 % (20-45) Monocytes % (Manual) 9 % (1-10) Eosinophils % (Manual) 9 % (0-3) Basophils % (Manual) 0 % (0-2) Myelocytes % 1 % (0-0) Band Neutrophils 1 % (0-8) Platelet Estimate Adequate Platelet Morphology Normal Hypochromasia 1+ Anisocytosis 3+ Height (Feet): 5 Height (Inches): 7.00 Weight (Pounds): 150 Objective Objective Gen: nad Pulm: ctab, no cwr CV: rrr Abd: soft, nt Ext: no cce Talisha Jacobs NP May 07, 2020 12:17
[2020-05-07 13:04] LABS: BASOPHILS % (AUTO) 2.1 % (0.0-2.0); EOSINOPHILS % (AUTO) 6.9 % (0.0-3.0); HEMATOCRIT 26.9 % (37.0-47.0); HEMOGLOBIN 8.2 G/DL (12.0-16.0); LYMPHOCYTES % (AUTO) 13.9 % (20.0-45.0); MEAN CORPUSCULAR VOLUME 89 FL (80-99); MONOCYTES % (AUTO) 10.5 % (1.0-10.0); NEUTROPHILS % (AUTO) 66.6 % (45.0-75.0); PLATELET COUNT 312 K/UL (150-450); RED BLOOD COUNT 3.02 M/UL (4.20-5.40); RED CELL DISTRIBUTION WIDTH 20.9 % (11.6-14.8); WHITE BLOOD COUNT 4.7 K/UL (4.8-10.8)
[2020-05-07 13:15] LABS: ANION GAP 4 mmol/L (5-15); BLOOD UREA NITROGEN 6 mg/dL (7-18); CALCIUM 9.2 MG/DL (8.5-10.1); CARBON DIOXIDE 33 MMOL/L (21-32); CHLORIDE 103 MMOL/L (98-107); CREATININE 0.7 MG/DL (0.55-1.30); POTASSIUM 3.6 MMOL/L (3.5-5.1); SODIUM 140 MMOL/L (136-145)
[2020-05-07 13:19] LABS: PHOSPHORUS 3.7 MG/DL (2.5-4.9)
[2020-05-07 16:00] VITALS: BP 101/61
--- NOTE | 2020-05-07 16:11 | Nephrology Progress Note ---
Assessment/Plan Plan #acute kidney injury likely due to vanco toxicity #hypokalemia- #hypomagnesemia #Acute on chronic anemia #h/p non- hodgkins lymphoma #possible sepsis #+ COVID #Femoral intertrochanteric hip fracture. - replete k and mag - Pulmonary eval - prbc transfusion prn - replete lytes - hemo-onc eval - ID eval - monitor CBC - avoid nephrotoxins - ortho eval - spine eval for L3 acute on chronic bone infarct, less likely neoplasm or infection? times spent 65 min Subjective ROS Limited/Unobtainable: No Constitutional: Reports: weakness HEENT: Denies: no symptoms, eye pain, blurred vision, tearing, double vision, ear pain, ear discharge, nose pain, nose congestion, throat pain, throat swelling, mouth pain, mouth swelling, other Genitourinary: Denies: no symptoms, burning, discharge, frequency, flank pain, hematuria, incontinence, pain, urgency, other Neurologic/Psychiatric: Denies: no symptoms, anxiety, depressed, emotional problems, headache, numbness, paresthesia, pre-existing deficit, seizure, tingling, tremors, weakness, other Subjective Cr better today mag and K low repleted hip fracture noted ortho consulted Impression: Minimal distention of the rectum with feces, could represent mild rectal fecal impaction. Equivocal slight thickening of the rectal wall and stranding of the perirectal fat, if real could indicate mild stercoral proctitis Comminuted fracture of the left femoral head, neck, and intertrochanteric region, ununited. Possibly acute, but abundant soft tissues surrounding the fracture area raises possibility that this could be chronic. Correlate with clinical findings Other findings as noted, including evidence of old T12 vertebral body compression fracture and prior vertebral augmentation procedure, Morales catheter, subcentimeter low-attenuation lesions which probably represent renal cysts, small sliding-type hiatal hernia Impression: Unusual signal abnormality of the posterolateral aspect of the L3 vertebral body on the right. This appears to be confined to the vertebral body marrow space. Prior CT scan in retrospect demonstrates sclerotic areas in the same location. Most likely differential consideration is an atypical hemangioma. Other possibilities include acute on chronic bone infarct, less likely neoplasm or infection No other unusual contrast enhancement. No findings to suggest discitis or epidural abscess. Objective Objective Last 24 Hour Vital Signs Date Time Temp Pulse Resp B/P (MAP) Pulse Ox O2 Delivery O2 Flow Rate FiO2 05/07/20 14:06 97.5 05/07/20 12:00 97.5 100 18 110/69 (83) 96 05/07/20 09:08 97.5 05/07/20 09:00 Nasal Cannula 2.0 05/07/20 08:00 97.5 100 18 102/61 (75) 96 05/07/20 04:00 98.2 18 101/61 (74) 96 05/07/20 00:00 98.0 95 18 113/79 (90) 96 05/06/20 21:00 Nasal Cannula 2.0 05/06/20 20:08 97 Nasal Cannula 2.0 28 05/06/20 20:00 97.9 97 18 113/74 (87) 98 05/06/20 19:08 97.5 Intake and Output 05/06/20 05/07/20 19:00 07:00 Intake Total 1100 ml Output Total 800 ml 550 ml Balance 300 ml -550 ml Intake Oral 400 ml Other 700 ml Output Urine Total 800 ml 550 ml # Voids 1 Laboratory Tests 05/07/20 12:10: White Blood Count 4.7L, Red Blood Count 3.02L, Hemoglobin 8.2L, Hematocrit 26.9L , Mean Corpuscular Volume 89, Mean Corpuscular Hemoglobin 27.4, Mean Corpuscular Hemoglobin Concent 30.7L, Red Cell Distribution Width 20.9H, Platelet Count 312, Mean Platelet Volume 6.3L, Neutrophils (%) (Auto) 66.6, Lymphocytes (%) (Auto) 13.9L, Monocytes (%) (Auto) 10.5H, Eosinophils (%) (Auto) 6.9H, Basophils (%) (Auto) 2.1H, Sodium Level 140, Potassium Level 3.6, Chloride Level 103, Carbon Dioxide Level 33H, Anion Gap 4L, Blood Urea Nitrogen 6L, Creatinine 0.7, Estimat Glomerular Filtration Rate > 60, Glucose Level 109H, Calcium Level 9.2, Phosphorus Level 3.7, Magnesium Level 1.5L Height (Feet): 5 Height (Inches): 7.00 Weight (Pounds): 150 Objective General Appearance: no apparent distress EENT: PERRL/EOMI Neck: non-tender, normal alignment Cardiovascular: normal peripheral pulses, normal rate Respiratory/Chest: chest wall non-tender, lungs clear Abdomen: normal bowel sounds, non tender Neurologic: alert, oriented x 3 Kallie Dykes M.D. May 07, 2020 16:11
--- NOTE | 2020-05-07 17:48 | Cardiac Electrophysiology PN ---
Assessment/Plan Assessment/Plan 1. Sinus tachycardia due to sepsis, anemia and COVID. Can not use beta-domenico as blood pressure is 100/70. 2. COVID pneumonia. Now off isolation 3. Hypokalemia. 4. Hypomagnesemia. 5. History of non-Hodgkin lymphoma. 6. Leukopenia and anemia. FU Dr. Valencia S/P PRBC 7. Fever. 8. Low Mg replaced 9. Left Hip Fx; Likely Chronic > Patient states she fell 5 months ago. Also had hard fall on coccyx in 2018. Minimal pain in left hip Per Dr. Payan. Given patient bed bound risks > benefits. LUKE RN Subjective Subjective No events. Covid isolation DCed today. On 2 liter NC. Awaiting SNIF placement S/P PRBC for 7.6. Has Left hip Fx. Not scheduled for surgery . ECG sinus tach 127 Venous Duplex no DVT Objective Last 24 Hour Vital Signs Date Time Temp Pulse Resp B/P (MAP) Pulse Ox O2 Delivery O2 Flow Rate FiO2 05/07/20 16:00 98.2 84 18 101/61 (74) 96 05/07/20 14:06 97.5 05/07/20 12:00 97.5 100 18 110/69 (83) 96 05/07/20 09:08 97.5 05/07/20 09:00 Nasal Cannula 2.0 05/07/20 08:00 97.5 100 18 102/61 (75) 96 05/07/20 04:00 98.2 18 101/61 (74) 96 05/07/20 00:00 98.0 95 18 113/79 (90) 96 05/06/20 21:00 Nasal Cannula 2.0 05/06/20 20:08 97 Nasal Cannula 2.0 28 05/06/20 20:00 97.9 97 18 113/74 (87) 98 05/06/20 19:08 97.5 Intake and Output 05/06/20 05/07/20 19:00 07:00 Intake Total 1100 ml Output Total 800 ml 550 ml Balance 300 ml -550 ml Intake Oral 400 ml Other 700 ml Output Urine Total 800 ml 550 ml # Voids 1 Laboratory Tests Test 05/07/20 12:10 White Blood Count 4.7 K/UL (4.8-10.8) L Red Blood Count 3.02 M/UL (4.20-5.40) L Hemoglobin 8.2 G/DL (12.0-16.0) L Hematocrit 26.9 % (37.0-47.0) L Mean Corpuscular Volume 89 FL (80-99) Mean Corpuscular Hemoglobin 27.4 PG (27.0-31.0) Mean Corpuscular Hemoglobin Concent 30.7 G/DL (32.0-36.0) L Red Cell Distribution Width 20.9 % (11.6-14.8) H Platelet Count 312 K/UL (150-450) Mean Platelet Volume 6.3 FL (6.5-10.1) L Neutrophils (%) (Auto) 66.6 % (45.0-75.0) Lymphocytes (%) (Auto) 13.9 % (20.0-45.0) L Monocytes (%) (Auto) 10.5 % (1.0-10.0) H Eosinophils (%) (Auto) 6.9 % (0.0-3.0) H Basophils (%) (Auto) 2.1 % (0.0-2.0) H Sodium Level 140 MMOL/L (136-145) Potassium Level 3.6 MMOL/L (3.5-5.1) Chloride Level 103 MMOL/L (98-107) Carbon Dioxide Level 33 MMOL/L (21-32) H Anion Gap 4 mmol/L (5-15) L Blood Urea Nitrogen 6 mg/dL (7-18) L Creatinine 0.7 MG/DL (0.55-1.30) Estimat Glomerular Filtration Rate > 60 mL/min (>60) Glucose Level 109 MG/DL (74-106) H Calcium Level 9.2 MG/DL (8.5-10.1) Phosphorus Level 3.7 MG/DL (2.5-4.9) Magnesium Level 1.5 MG/DL (1.8-2.4) L Objective HEAD AND NECK: No JVD. LUNGS: Coarse rhonchi. CARDIOVASCULAR: Regular S1 and S2 with no gallop or murmur. ABDOMEN: Soft. EXTREMITIES: No pitting edema. Ehsan Wan MD May 07, 2020 17:48
--- NOTE | 2020-05-07 18:25 | General Progress Note ---
Subjective Date patient seen: May 07, 2020 Allergies: Coded Allergies: No Known Allergies (Unverified , 04/11/20) Subjective No acute events overnight per nursing. Feels well. Pain is well controlled. Pending placement. Review of systems: Constitutional: Denies: chills, diaphoresis, malaise, weakness, HEENT: Denies: eye pain, blurred vision, double vision, ear pain, nose pain, throat pain, Cardiovascular: Denies: chest pain, edema, lightheadedness, palpitations Respiratory: No sob, cough, milton Gastrointestinal/Abdominal: Denies: abdominal pain, black stools, blood in stool, constipation, diarrhea, nausea, poor fluid intake vomiting, other Genitourinary: Denies: burning, discharge, frequency, Neurologic/Psychiatric: Denies: headache, numbness, paresthesia, new weakness, other Endocrine: Denies: excessive sweating, flushing, intolerance to cold, MSK: denies joint pains, swelling, stiffness +back pain (improving) Hematologic/Lymphatic: Denies: anemia, easy bleeding, easy bruising, Objective Last 24 Hour Vital Signs Date Time Temp Pulse Resp B/P (MAP) Pulse Ox O2 Delivery O2 Flow Rate FiO2 05/07/20 16:00 98.2 84 18 101/61 (74) 96 05/07/20 14:06 97.5 05/07/20 12:00 97.5 100 18 110/69 (83) 96 05/07/20 09:08 97.5 05/07/20 09:00 Nasal Cannula 2.0 05/07/20 08:00 97.5 100 18 102/61 (75) 96 05/07/20 04:00 98.2 18 101/61 (74) 96 05/07/20 00:00 98.0 95 18 113/79 (90) 96 05/06/20 21:00 Nasal Cannula 2.0 05/06/20 20:08 97 Nasal Cannula 2.0 28 05/06/20 20:00 97.9 97 18 113/74 (87) 98 05/06/20 19:08 97.5 Intake and Output 05/06/20 05/07/20 19:00 07:00 Intake Total 1100 ml Output Total 800 ml 550 ml Balance 300 ml -550 ml Intake Oral 400 ml Other 700 ml Output Urine Total 800 ml 550 ml # Voids 1 Laboratory Tests 05/07/20 12:10: White Blood Count 4.7L, Red Blood Count 3.02L, Hemoglobin 8.2L, Hematocrit 26.9L , Mean Corpuscular Volume 89, Mean Corpuscular Hemoglobin 27.4, Mean Corpuscular Hemoglobin Concent 30.7L, Red Cell Distribution Width 20.9H, Platelet Count 312, Mean Platelet Volume 6.3L, Neutrophils (%) (Auto) 66.6, Lymphocytes (%) (Auto) 13.9L, Monocytes (%) (Auto) 10.5H, Eosinophils (%) (Auto) 6.9H, Basophils (%) (Auto) 2.1H, Sodium Level 140, Potassium Level 3.6, Chloride Level 103, Carbon Dioxide Level 33H, Anion Gap 4L, Blood Urea Nitrogen 6L, Creatinine 0.7, Estimat Glomerular Filtration Rate > 60, Glucose Level 109H, Calcium Level 9.2, Phosphorus Level 3.7, Magnesium Level 1.5L Height (Feet): 5 Height (Inches): 7.00 Weight (Pounds): 150 Objective General: WDWN female in NAD, A&O x 4 HEENT: Normocephalic cephalic atraumatic, pupils equal round reactive to light and accommodation, nares patent and no symmetrical, no tonsillar exudates, mucous membranes moist CV: Regular rate regular rhythm, no murmurs, rubs, or gallops + POrt site is C/d/i. Pulm: Lungs clear to auscultation bilaterally. No wheezes, rhonchi, or rales GI: Soft, nontender, nondistended, bowel sounds present + eaton in place, no suprapubic TTP Neuro: CN 2-12 intact bilaterally, no focal signs. Moving all extremities Ext: +Trace LE edema and tenderness bilaterally Skin: no rashes lesions or ulcers Msk: Joints symmetrical in upper extremity and lower extremity bilaterally, no joint swelling. + left hip pain (slightly) Lymph: No lymphadenopathy in upper extremity and lower extremity Assessment/Plan Status: stable Assessment/Plan: #Left Hip Fx; Likely Chronic > Patient states she fell 5 months ago but no recent falls. Also had hard fall on coccyx in 2018. Minimal pain in left hip > Patient states she has not walked for months but is not paraplegic. Severe debilitation. - appreciate ortho eval: Dr. Payan. Given patient bed bound risks > benefits. Outpatient consideration - NWB LLE -Per Ortho, no immediate surgical indication, but will need OP f/u -Confirm weight bearing recs for PT -Patient would like plan confirmed for surgery prior to d/c given she is feeling very debilitated- F/U with ortho -d/w Cardiology. Not a candidate for surgery right now. Outpatient follow up. -Pending placement vs Home w/ HH #Lesia UTI - FLuconazole 200mg daily for 5 days (05/04 - ) - Abx per ID - monitor QTC #hypomagnesemia - replete PRN #LE edema/pain - venous duplex to rule out DVT: negative - SCDs #Sepsis 2/2 PORT infection, S/P Port Removal -Resolved #COVID 19 pneumonia (febrile, tachycardic)-Currently saturating well on 2L NC -Appreciate ID -S/p Vanco and Cefepime Tx-Cultures noted -Continue NC Support -If she goes home, may need home 02; consider ABG but await PT eval #Lymphoma-was receiving Chemo--> Known mets to spine ( see MRI ) #Pancytopenia including Blood Transfusion Requiring Anemia --> S/P PRBC transfusions and Neupogen, likely related to chemo/marrow suppression #L3 Lesion on MRI -Appreciate Oncology -Appreciate Radiation Oncology -Resume chemo as outpatient #Hypothyroidism, suspect central given TSH and T4 both low -Appreciate Endocrine Recs -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 COVID vs. cancer related? - appears to have resolved - CTM Fever curve. Could be due to underlying malignancy - Repeat Blood cultures NGTD - Repeat UA: negative - Repeat CXR: Bronchial thickening - Check CT C/A/P including CT angio to eval for PE. : reviewed. No PE. No obvious infection. Incidental left hip fracture - IV fluids as needed - D/W ID. - Port has been removed at OSH - , - ngtd - Cefepime (04/14 - 04/15) - Per patient she is to continue on Vancomycin till 04/25 - D/c vanc - ID Consult, appreciate recs - MRI C/T/L spine w/wo contrast to eval for abscess: No sign of infection, abscess or osteo #JIM, pre-renal vs. due to vanc toxicity - resolved > Vanc level 35 - urine lytes - Nephrology on board: D/w Dr. hatch - Fluids per nephro #Hx of Lymphoma #leukopenia improving > S/p mets to spine s/p surgery earlier this year and XRT/Chemo > Last chemo in February 2020 - All information per patient - Oncology following, appreciate recs - Can continue current therapy with outpatient onc - No acute interventions needed inpatient - Neupogen x 1 04/21 #Acute blood loss anemia - resolving #anemia of chronic disease #Normocytic anemia Patient presented with Hb 6.7 with normal MCV. History of lymphoma per patient and is receiving chemo tx, last known to be February 2020. - 2U PRBCs ordered and transfused on admission - Hb Stable - Rectic count wnl, Iron and Iron sat low, Ferritin wnl - No active signs of bleeding - Hematology consulted, appreciate recs - CTM for signs of bleeding - Patient will need colonoscopy as outpatient in the future : Gi Consulted; Dr. Carter #sinus tachycardia, due to COVID pna - monitor EKG - Cardiology consulted: Dr. Wan #proctitis #Constipation- > improving - Aggressive bowel regimen - GI aware: Appreciate recommendations - Colace, miralax, - s/p enema and ducolax with improvement #chronic urinary retention - since patient had spine surgery earlier in the year - unsure if has true urinary retention - d/w nephrology -> voiding trial, however patient refused. #Hypokalemia #hypomagnesia - Lytes replaced - appreciate nephro management FENPPX DVTPPX: SCDs. Patient refusing DVT ppx shots (risks of of refusal including life threatening blood clot and PE explained to patient but still wishes to refuse) Fluids: per nephro Diet: regular Lines: PIV PT/OT: pending Code status:Full Dispo: back to SNF Reason for Continued Hospitalization: hypoxia, fever Dispo - Discharge back to SNF. MIPS ([employer]-based Incentive Payment System) Applicable CPT: 31387, 73715 CHECK ALL THAT ARE MET: [] Measure #5 (CHF): All ages. Prescribe LINDSAY/ARB upon discharge for patients with left ventricular systolic dysfunction. If not, the reason is clearly documented in the medical chart [] Measure #8 (CHF): All ages. Prescribe a beta domenico upon discharge for patients with left ventricular systolic dysfunction. If not, the reason is clearly documented in the medical chart. [x] Measure #47: Advance care plan or surrogate decision maker documented in the medical record. [x] Measure #130 The provider has documented, updated, or reviewed the patients current medication list and has documented it in the patients note. [] Measure #374 (All): Send report to referring provider. [] Measure #407(Sepsis due to MSSA bacteremia): Age 18+ Patient treated with a beta-lactam antibiotic (Nafcillin, Oxacillin or Cefazolin) as definitive therapy. MEDICAL COMPLEXITYHigh complexity medical decision making (need 2/3 categories)Problem - need 4 points [x]Acute/new problem with new plan for workup (4 points, 1 max) [] Acute/new problem without additional workup (3 points, 1 max) [] Unstable chronic problem actively being managed (2 point each, 2 max) [x] Stable chronic problem actively being managed (1 point each, 2 max) [x] Self-limited/transient process (constipation, muscle ache, etc) (1 point each, 2 max) Data - need 4 points [x] Reviewed labs/imaging studies (1 points, 2 max) [x] Independent review of imaging (EKG, xrays, etc) (2 points, 2 max) [x] Discussed case with consult/other MD/RN (2 points, 2 max) High Risk - qualify if have one of the following: [x] Severe exacerbation of acute problem, acute mental status change, IV narcotics, monitoring drug levels (vancomycin, INR, tacrolimus etc) I spent 32 minutes on this patient's case, and 21 mins was dedicated to counseling and/or care coordination. Discussed with nephrology,cardiology, RN at bedside. Time of note may not reflect time of encounter Jus Brunner D.O. May 07, 2020 18:25
--- NOTE | 2020-05-07 19:27 | NUR ---
NURSE HAND-OFF: Important Events on Shift:[pain management, IV magnesium, DC covid isolation] Patient Status: [stable] Diet: [regular] Pending Orders: [] Pending Results/Labs:[] Pending MD notification:[] Latest Vital Signs: Temperature 98.2 , Pulse 84 , B/P 101 /61 , Respiratory Rate 18 , O2 SAT 96 , Nasal Cannula, O2 Flow Rate 2.0 . Vital Sign Comment: [] Latest [place] Fall Score: 55 Fall Risk: High Risk Safety Measures: Call light Within Reach, Bed Alarm Zone 1, Side Rails Side Rails x3, Bed position Low and Locked. Fall Precautions: Door Sign Patient Fall Education Report given to [Oh, RN].
--- NOTE | 2020-05-07 19:30 | NUR ---
NURSE NOTES: Receive a report from REA Park.
--- NOTE | 2020-05-07 19:45 | NUR ---
NURSE NOTES: Pt is awake and alert. Still noted generalized pain. Will provide prn pain medication as ordered. No respiratory distress noted. Yellow urine is patent via eaton catheter. On bed bound and on scds bilateral. Call light within reach. Will continue to monitor.
[2020-05-07 20:00] VITALS: BP 93/63
[2020-05-07] MEDS: Dyna-Hex 2% Top Sol 2oz TOPIC SCH (20:00)
--- NOTE | 2020-05-07 21:00 | NUR ---
NURSE NOTES: Offer prn morphine medication for pain but refuses to get it but request [place] 10/325 1t po. Will continue to monitor.
--- NOTE | 2020-05-07 23:23 | Neurology Progress Note ---
Interim History Interim History ROS Limited/Unobtainable: No Interim History pain better controlled Objective Physical Exam Last Vital Signs Date Time Temp Pulse Resp B/P (MAP) Pulse Ox O2 Delivery O2 Flow Rate FiO2 05/07/20 20:00 97.8 108 18 93/63 (73) 96 05/07/20 09:00 Nasal Cannula 2.0 05/06/20 20:08 28 Laboratory Tests Test 05/07/20 12:10 White Blood Count 4.7 K/UL (4.8-10.8) L Red Blood Count 3.02 M/UL (4.20-5.40) L Hemoglobin 8.2 G/DL (12.0-16.0) L Hematocrit 26.9 % (37.0-47.0) L Mean Corpuscular Volume 89 FL (80-99) Mean Corpuscular Hemoglobin 27.4 PG (27.0-31.0) Mean Corpuscular Hemoglobin Concent 30.7 G/DL (32.0-36.0) L Red Cell Distribution Width 20.9 % (11.6-14.8) H Platelet Count 312 K/UL (150-450) Mean Platelet Volume 6.3 FL (6.5-10.1) L Neutrophils (%) (Auto) 66.6 % (45.0-75.0) Lymphocytes (%) (Auto) 13.9 % (20.0-45.0) L Monocytes (%) (Auto) 10.5 % (1.0-10.0) H Eosinophils (%) (Auto) 6.9 % (0.0-3.0) H Basophils (%) (Auto) 2.1 % (0.0-2.0) H Sodium Level 140 MMOL/L (136-145) Potassium Level 3.6 MMOL/L (3.5-5.1) Chloride Level 103 MMOL/L (98-107) Carbon Dioxide Level 33 MMOL/L (21-32) H Anion Gap 4 mmol/L (5-15) L Blood Urea Nitrogen 6 mg/dL (7-18) L Creatinine 0.7 MG/DL (0.55-1.30) Estimat Glomerular Filtration Rate > 60 mL/min (>60) Glucose Level 109 MG/DL (74-106) H Calcium Level 9.2 MG/DL (8.5-10.1) Phosphorus Level 3.7 MG/DL (2.5-4.9) Magnesium Level 1.5 MG/DL (1.8-2.4) L Impression/Recommendations Problems: (1) Anemia Status: stable Diagnostic Impression Chronic weakness, LE worse than UEs MRI spine noted, osteoma wo spine compression slplaminectomy COVID 19 pneumonia (febrile, tachycardic) Hx of Lymphoma cont medical support pain control PT as able Renny Bajwa MD May 07, 2020 23:23
[2020-05-08] VITALS: BP 101/66
[2020-05-08 04:00] VITALS: BP 105/66
[2020-05-08] MEDS: HYDROcodone/Acetamin 10/325 tab ORAL PRN ×3 (04:38→17:05)
--- NOTE | 2020-05-08 05:00 | NUR ---
NURSE NOTES: Pt only request [place]10/325 for severe pain because morphine makes her abdominal discomfort. Given prn medication per pt's request. Will continue to monitor.
[2020-05-08] MEDS: Heparin 5000 units/ml inj SUBQ SCH ×3 (05:57→20:55)
--- NOTE | 2020-05-08 07:00 | Hematology/Onc Progress Note ---
Assessment/Plan Assessment/Plan # Leukopenia COVID19++++++++++ --> hep and hiv order as needed --> wbc 4-->3-->2.9->2->4.6--4.1-->3.6-->4.7-->3.6->4.1-->4.7 --> Neupogen 300 x1 04/21 --> isolation if anc<500 # Non-Hodgkins Lymphoma is s/p chemotherapy in the past --> to return to [facility] for further treatment --> likely for ct/pet as outpatient --> CT Here shows no e/o disease --> imaging has been reviewed thus far --> end date of 04/2020 # Anemia likely of chronic disease -- does not appear to have iron deficiency --> transfuse as needed, tibc and ferritin are cw acd --> hgb 7.8-->8.6-->8.5-->8.4->7.6-->10-->9.9->9.6-->8.7 --> no hemolysis is noted --> s/p transfusion on admission # Covid 19++ with SIRS (febrile, tachycardic) --> per pulm and id --> CXR with diffuse non-specific inflammatory/infectious process --> s/p Cefepime (04/14 - 04/15) # Hypokalemia # Hypomagnesia # Chronic Back pain # Full Code # Dvt ppx heparin sq Appreciate consultation and reagan Rn Subjective Constitutional: Denies: no symptoms, chills, fever, malaise, weakness, other HEENT: Denies: no symptoms, eye pain, blurred vision, tearing, double vision, ear pain, ear discharge, nose pain, nose congestion, throat pain, throat swelling, mouth pain, mouth swelling, other Cardiovascular: Denies: no symptoms, chest pain, edema, irregular heart rate, lightheadedness, palpitations, syncope, other Respiratory: Denies: no symptoms, cough, shortness of breath, SOB with excertion, SOB at rest, sputum, wheezing, other Genitourinary: Denies: no symptoms, burning, discharge, frequency, flank pain, hematuria, incontinence, pain, urgency, other Neurologic/Psychiatric: Denies: no symptoms, anxiety, depressed, emotional problems, headache, numbness, paresthesia, pre-existing deficit, seizure, tingling, tremors, weakness, other Endocrine: Denies: no symptoms, excessive sweating, flushing, intolerance to cold, intolerance to heat, increased hunger, increased thirst, increased urine, unexplained weight gain, unexplained weight loss, other Hematologic/Lymphatic: Denies: no symptoms, anemia, easy bleeding, easy bruising, adenopathy, other Allergies: Coded Allergies: No Known Allergies (Unverified , 04/11/20) Subjective 04/17 is on room air, more comfortable, potential dc to snf 04/18 labs reviewed, no bleeding, meds noted, no night sweats 04/19 sleeping comfortably, no major events, no night sweats 04/20 meds noted, labs reviewed, wbc 2.9, hep and hiv is neg 04/21 labs reviewed, in am, the wbc was 2, to get neupogen x 1 dose now 04/23 labs noted, no bleeding, wbc 4, hgb remains low, but holding off trans 04/24 labs are pending for am, meds reviewed, no bleeding 04/25 meds reviewed, labs noted, no night sweats, dw rn at bedside, no new events 04/26 labs reviewed, meds noted, no bleeding, wbc 3, hgb 7.6 04/27 reagan rn at bedside, labs are noted, no bleeding, refusing heparin now sq 04/28 labs have been reviewed, is on room air, no bleeding, tachy 04/30 labs pending, no night sweats, meds reviewed, tachy, no night sweats, wants iv iron 05/01 dc planning, meds noted, for labs this am, no new events 05/02 meds reviewed, has been refusing care, continue heparin sq 05/03 labs reviewed, on 2lnc, no bleeding, remains on hep but refusing 05/04 meds ntoed, labs reviewed, no new changes, reagan RN 05/05 meds noted, no bleeding, labs reviewed, no f/c 12: no acute events reported, no resp distress 05/07: no resp distress, vss on RA dc planning continues 05/08 on norco prn, nc, uma, labs are noted Objective Objective Current Medications Medications (Trade) Dose Ordered Sig/Angelika Route PRN Reason Start Time Stop Time Status Last Admin Dose Admin Acetaminophen (Tylenol) 650 mg Q6H PRN ORAL Mild Pain (Pain Scale 1-3) 04/12/20 02:45 05/12/20 02:44 05/06/20 00:36 Acetaminophen (Tylenol) 650 mg Q6H PRN ORAL FEVER 04/12/20 16:30 05/12/20 16:29 04/27/20 00:38 Acetaminophen/ Hydrocodone Bitart ([place] 10/325) 1 tab Q6H PRN ORAL severe pain 05/04/20 22:17 05/11/20 22:16 05/08/20 04:38 Acetaminophen/ Hydrocodone Bitart ([place] 5/325) 1 tab Q6H PRN ORAL moderate pain 05/04/20 18:30 05/11/20 18:29 05/07/20 08:38 Allopurinol (allopurinoL) 300 mg DAILY ORAL 04/12/20 09:00 05/12/20 08:59 05/07/20 08:37 Ascorbic Acid (Vitamin C) 500 mg DAILY ORAL 04/26/20 09:00 05/26/20 08:59 05/07/20 08:38 Baclofen (Lioresal) 10 mg THREE TIMES A DAY ORAL 04/12/20 09:00 05/12/20 08:59 05/04/20 09:31 Chlorhexidine Gluconate (Christy-Hex 2%) 1 applic Q24H TOPIC 04/25/20 20:00 07/24/20 19:59 04/30/20 20:46 Docusate Sodium (Colace) 100 mg TWICE A DAY ORAL 04/27/20 09:00 05/20/20 08:59 05/05/20 09:12 Dronabinol (Marinol) 5 mg BID ORAL 05/01/20 09:00 07/30/20 08:59 05/07/20 17:36 Fluconazole (Diflucan) 200 mg DAILY ORAL 05/04/20 14:00 05/09/20 13:59 05/07/20 08:38 Heparin Sodium (Porcine) (Heparin 5000 units/ml) 5,000 units EVERY 8 HOURS SUBQ 04/24/20 22:00 06/08/20 21:59 05/05/20 05:38 Lactulose (Cephulac) 20 gm THREE TIMES A DAY ORAL 04/21/20 13:00 05/21/20 12:59 05/04/20 09:30 Linaclotide (Linzess) 290 mcg BEFORE BREAKFAST ORAL 04/26/20 06:30 07/25/20 06:29 05/08/20 06:54 Magnesium Oxide (Mag-Ox 400mg) 400 mg THREE TIMES A DAY ORAL 04/30/20 13:00 05/30/20 12:59 05/07/20 17:36 Morphine Sulfate (Morphine Sulfate) 2 mg Q3H PRN IVP Severe Pain (Pain Scale 7-10) 05/04/20 19:17 05/11/20 19:16 Morphine Sulfate (Morphine Sulfate) 4 mg Q3H PRN IVP SEVERE BREAKTHRU PAIN 05/04/20 19:18 05/11/20 19:17 Multivitamins (Multivitamins) 1 tab DAILY ORAL 04/26/20 09:00 05/26/20 08:59 05/07/20 08:38 Ondansetron HCl (Zofran) 4 mg Q6H PRN IVP Nausea & Vomiting 04/19/20 13:30 05/19/20 13:29 04/29/20 18:17 Polyethylene Glycol (Miralax) 17 gm DAILY ORAL 04/20/20 09:00 05/20/20 08:59 05/04/20 09:31 Last 24 Hour Vital Signs Date Time Temp Pulse Resp B/P (MAP) Pulse Ox O2 Delivery O2 Flow Rate FiO2 05/08/20 04:00 98.1 103 18 105/66 (79) 93 05/08/20 00:00 98.1 100 18 101/66 (78) 92 05/07/20 21:00 Nasal Cannula 2.0 05/07/20 20:00 97.8 108 18 93/63 (73) 96 05/07/20 16:00 98.2 84 18 101/61 (74) 96 05/07/20 14:06 97.5 05/07/20 12:00 97.5 100 18 110/69 (83) 96 05/07/20 09:08 97.5 05/07/20 09:00 Nasal Cannula 2.0 05/07/20 08:00 97.5 100 18 102/61 (75) 96 05/07/20 04:00 98.2 18 101/61 (74) 96 05/07/20 00:00 98.0 95 18 113/79 (90) 96 05/06/20 21:00 Nasal Cannula 2.0 05/06/20 20:08 97 Nasal Cannula 2.0 28 05/06/20 20:00 97.9 97 18 113/74 (87) 98 05/06/20 19:08 97.5 05/06/20 16:00 97.5 99 18 129/76 (93) 98 05/06/20 13:32 98.3 05/06/20 12:00 98.3 100 18 113/78 (90) 96 05/06/20 09:21 98.2 05/06/20 09:00 Nasal Cannula 2.0 05/06/20 08:00 97.9 94 18 106/67 (80) 97 Intake and Output 05/07/20 05/08/20 19:00 07:00 Intake Total 600 ml Output Total 800 ml Balance -200 ml Intake Oral 600 ml Output Urine Total 800 ml Labs Test 05/05/20 08:10 05/06/20 06:05 05/07/20 12:10 White Blood Count 4.0 K/UL (4.8-10.8) 3.3 K/UL (4.8-10.8) 4.7 K/UL (4.8-10.8) Red Blood Count 3.88 M/UL (4.20-5.40) 3.13 M/UL (4.20-5.40) 3.02 M/UL (4.20-5.40) Hemoglobin 10.5 G/DL (12.0-16.0) 8.7 G/DL (12.0-16.0) 8.2 G/DL (12.0-16.0) Hematocrit 35.8 % (37.0-47.0) 29.1 % (37.0-47.0) 26.9 % (37.0-47.0) Mean Corpuscular Volume 92 FL (80-99) 93 FL (80-99) 89 FL (80-99) Mean Corpuscular Hemoglobin 27.0 PG (27.0-31.0) 28.0 PG (27.0-31.0) 27.4 PG (27.0-31.0) Mean Corpuscular Hemoglobin Concent 29.3 G/DL (32.0-36.0) 30.1 G/DL (32.0-36.0) 30.7 G/DL (32.0-36.0) Red Cell Distribution Width 18.8 % (11.6-14.8) 20.0 % (11.6-14.8) 20.9 % (11.6-14.8) Platelet Count 382 K/UL (150-450) 316 K/UL (150-450) 312 K/UL (150-450) Mean Platelet Volume 6.1 FL (6.5-10.1) 5.5 FL (6.5-10.1) 6.3 FL (6.5-10.1) Neutrophils (%) (Auto) 73.1 % (45.0-75.0) % (45.0-75.0) 66.6 % (45.0-75.0) Lymphocytes (%) (Auto) 11.2 % (20.0-45.0) % (20.0-45.0) 13.9 % (20.0-45.0) Monocytes (%) (Auto) 8.8 % (1.0-10.0) % (1.0-10.0) 10.5 % (1.0-10.0) Eosinophils (%) (Auto) 5.3 % (0.0-3.0) % (0.0-3.0) 6.9 % (0.0-3.0) Basophils (%) (Auto) 1.7 % (0.0-2.0) % (0.0-2.0) 2.1 % (0.0-2.0) Sodium Level 139 MMOL/L (136-145) 140 MMOL/L (136-145) 140 MMOL/L (136-145) Potassium Level 3.4 MMOL/L (3.5-5.1) 3.9 MMOL/L (3.5-5.1) 3.6 MMOL/L (3.5-5.1) Chloride Level 102 MMOL/L (98-107) 105 MMOL/L (98-107) 103 MMOL/L (98-107) Carbon Dioxide Level 31 MMOL/L (21-32) 30 MMOL/L (21-32) 33 MMOL/L (21-32) Anion Gap 6 mmol/L (5-15) 5 mmol/L (5-15) 4 mmol/L (5-15) Blood Urea Nitrogen 7 mg/dL (7-18) 9 mg/dL (7-18) 6 mg/dL (7-18) Creatinine 0.6 MG/DL (0.55-1.30) 0.5 MG/DL (0.55-1.30) 0.7 MG/DL (0.55-1.30) Estimat Glomerular Filtration Rate > 60 mL/min (>60) > 60 mL/min (>60) > 60 mL/min (>60) Glucose Level 78 MG/DL (74-106) 86 MG/DL (74-106) 109 MG/DL (74-106) Calcium Level 9.5 MG/DL (8.5-10.1) 9.6 MG/DL (8.5-10.1) 9.2 MG/DL (8.5-10.1) Magnesium Level 2.1 MG/DL (1.8-2.4) 1.5 MG/DL (1.8-2.4) Differential Total Cells Counted 100 Neutrophils % (Manual) 62 % (45-75) Lymphocytes % (Manual) 18 % (20-45) Monocytes % (Manual) 9 % (1-10) Eosinophils % (Manual) 9 % (0-3) Basophils % (Manual) 0 % (0-2) Myelocytes % 1 % (0-0) Band Neutrophils 1 % (0-8) Platelet Estimate Adequate Platelet Morphology Normal Hypochromasia 1+ Anisocytosis 3+ Phosphorus Level 3.7 MG/DL (2.5-4.9) Height (Feet): 5 Height (Inches): 7.00 Weight (Pounds): 150 Objective Gen: nad Pulm: ctab, no cwr CV: rrr Abd: soft, nt Ext: no cce Martinez Hill MD May 08, 2020 07:00
--- NOTE | 2020-05-08 07:43 | NUR ---
NURSE NOTES: Received report from REA Jerez, Pt is AAOx4, bed bound. Still noted generalized pain. Will provide prn pain medication as ordered. No respiratory distress noted. Morales catheter patent and intact, draining yellow urine well via gravity. bed is locked and placed in lowest position with bed alarm on. Will continue to monitor
[2020-05-08 08:00] VITALS: BP 103/70
[2020-05-08] MEDS: Docusate 100mg cap ORAL SCH ×2 (08:18→17:08)
[2020-05-08] MEDS: Dronabinol 2.5mg Cap ORAL SCH ×2 (08:18→17:08)
[2020-05-08] MEDS: Ascorbic Acid 500mg tab ORAL SCH (08:18)
[2020-05-08] MEDS: Lactulose 20gm/30ml UDC ORAL SCH ×3 (08:18→17:08)
[2020-05-08] MEDS: Miralax 17gm pkt ORAL SCH (08:18)
[2020-05-08] MEDS: Fluconazole 100mg tab ORAL SCH (08:19)
[2020-05-08] MEDS: Magnesium Oxide 400mg tab ORAL SCH ×3 (08:19→17:05)
--- NOTE | 2020-05-08 08:55 | Pulmonology Progress Note ---
Subjective ROS Limited/Unobtainable: No Interval Events: None new Constitutional: Reports: fever, fatigue HEENT: Repors: no symptoms Respiratory: Reports: no symptoms, dry cough Cardiovascular: Reports: no symptoms Gastrointestinal/Abdominal: Denies: nausea, vomiting, diarrhea Psychiatric: Denies: depression Skin: Denies: rash Musculoskeletal: Denies: pain Allergies: Coded Allergies: No Known Allergies (Unverified , 04/11/20) Objective Last 24 Hour Vital Signs Date Time Temp Pulse Resp B/P (MAP) Pulse Ox O2 Delivery O2 Flow Rate FiO2 05/08/20 04:00 98.1 103 18 105/66 (79) 93 05/08/20 00:00 98.1 100 18 101/66 (78) 92 05/07/20 21:00 Nasal Cannula 2.0 05/07/20 20:00 97.8 108 18 93/63 (73) 96 05/07/20 16:00 98.2 84 18 101/61 (74) 96 05/07/20 14:06 97.5 05/07/20 12:00 97.5 100 18 110/69 (83) 96 05/07/20 09:08 97.5 05/07/20 09:00 Nasal Cannula 2.0 Intake and Output 05/07/20 05/08/20 19:00 07:00 Intake Total 600 ml Output Total 800 ml 800 ml Balance -200 ml -800 ml Intake Oral 600 ml Output Urine Total 800 ml 800 ml Objective 05/08 no change respiratory-salomon; stable 05/07 stable saturation 05/06 no change 05/05 no change respiratory-salomon; stable no change 05/03 no change; AM labs unavailable 05/02 on and off 2 L NC; NAD 05/01 no change 04/28 on and off 1 L NC; NAD 04/27 on and off 1 L NC; NAD 04/26 still on 1 L NC; NAD 04/25 no change respiratory-salomon 04/24 no change 04/23 on and off 1 lpm NC 04/22 saturating well on and off 1 lpm NC 04/21 no change 04/20 pt saturating well on 2 lpm NC; NAD 04/19 pt saturating well on 2 lpm NC; NAD 04/18 pt saturating well on 2 lpm NC General Appearance: WD/WN, no acute distress HEENT: normocephalic, atraumatic Respiratory: lungs clear Cardiovascular: normal rate, regular rhythm Abdomen: soft, non tender Genitourinary: other - Morales Extremities: no edema Laboratory Tests 05/07/20 12:10: White Blood Count 4.7L, Red Blood Count 3.02L, Hemoglobin 8.2L, Hematocrit 26.9L , Mean Corpuscular Volume 89, Mean Corpuscular Hemoglobin 27.4, Mean Corpuscular Hemoglobin Concent 30.7L, Red Cell Distribution Width 20.9H, Platelet Count 312, Mean Platelet Volume 6.3L, Neutrophils (%) (Auto) 66.6, Lymphocytes (%) (Auto) 13.9L, Monocytes (%) (Auto) 10.5H, Eosinophils (%) (Auto) 6.9H, Basophils (%) (Auto) 2.1H, Sodium Level 140, Potassium Level 3.6, Chloride Level 103, Carbon Dioxide Level 33H, Anion Gap 4L, Blood Urea Nitrogen 6L, Creatinine 0.7, Estimat Glomerular Filtration Rate > 60, Glucose Level 109H, Calcium Level 9.2, Phosphorus Level 3.7, Magnesium Level 1.5L Current Medications Medications (Trade) Dose Ordered Sig/Angelika Route PRN Reason Start Time Stop Time Status Last Admin Dose Admin Acetaminophen (Tylenol) 650 mg Q6H PRN ORAL Mild Pain (Pain Scale 1-3) 04/12/20 02:45 05/12/20 02:44 05/06/20 00:36 Acetaminophen (Tylenol) 650 mg Q6H PRN ORAL FEVER 04/12/20 16:30 05/12/20 16:29 04/27/20 00:38 Acetaminophen/ Hydrocodone Bitart ([place] 10/325) 1 tab Q6H PRN ORAL severe pain 05/04/20 22:17 05/11/20 22:16 05/08/20 04:38 Acetaminophen/ Hydrocodone Bitart ([place] 5/325) 1 tab Q6H PRN ORAL moderate pain 05/04/20 18:30 05/11/20 18:29 05/07/20 08:38 Allopurinol (allopurinoL) 300 mg DAILY ORAL 04/12/20 09:00 05/12/20 08:59 05/08/20 08:19 Ascorbic Acid (Vitamin C) 500 mg DAILY ORAL 04/26/20 09:00 05/26/20 08:59 05/08/20 08:18 Baclofen (Lioresal) 10 mg THREE TIMES A DAY ORAL 04/12/20 09:00 05/12/20 08:59 05/04/20 09:31 Chlorhexidine Gluconate (Christy-Hex 2%) 1 applic Q24H TOPIC 04/25/20 20:00 07/24/20 19:59 04/30/20 20:46 Docusate Sodium (Colace) 100 mg TWICE A DAY ORAL 04/27/20 09:00 05/20/20 08:59 05/08/20 08:18 Dronabinol (Marinol) 5 mg BID ORAL 05/01/20 09:00 07/30/20 08:59 05/08/20 08:18 Fluconazole (Diflucan) 200 mg DAILY ORAL 05/04/20 14:00 05/09/20 13:59 05/08/20 08:19 Heparin Sodium (Porcine) (Heparin 5000 units/ml) 5,000 units EVERY 8 HOURS SUBQ 04/24/20 22:00 06/08/20 21:59 05/05/20 05:38 Lactulose (Cephulac) 20 gm THREE TIMES A DAY ORAL 04/21/20 13:00 05/21/20 12:59 05/08/20 08:18 Linaclotide (Linzess) 290 mcg BEFORE BREAKFAST ORAL 04/26/20 06:30 07/25/20 06:29 05/08/20 06:54 Magnesium Oxide (Mag-Ox 400mg) 400 mg THREE TIMES A DAY ORAL 04/30/20 13:00 05/30/20 12:59 05/08/20 08:19 Morphine Sulfate (Morphine Sulfate) 2 mg Q3H PRN IVP Severe Pain (Pain Scale 7-10) 05/04/20 19:17 05/11/20 19:16 Morphine Sulfate (Morphine Sulfate) 4 mg Q3H PRN IVP SEVERE BREAKTHRU PAIN 05/04/20 19:18 05/11/20 19:17 Multivitamins (Multivitamins) 1 tab DAILY ORAL 04/26/20 09:00 05/26/20 08:59 05/08/20 08:19 Ondansetron HCl (Zofran) 4 mg Q6H PRN IVP Nausea & Vomiting 04/19/20 13:30 05/19/20 13:29 04/29/20 18:17 Polyethylene Glycol (Miralax) 17 gm DAILY ORAL 04/20/20 09:00 05/20/20 08:59 05/08/20 08:18 Assessment/Plan Assessment/Plan 1. COVID-19 infection - COVID-19 PCR 04/21 positive: now off isolation - no indication for steroid or remdesivir given her normoxemia - s/p cefepime - CXR with diffuse non-specific inflammatory/infectious process - cont supplemental oxygen as needed; currently saturating well on 2L NC - CT A/P/C - no obvious pna or abscess, cultures negative 2. Immunocompromised state with history of non-Hodgkin lymphoma. - h/o port line infection; s/p Vanco - to return to [facility] for further Tx 3. Fever; resolved - urine culture showed zee albicans - blood culture showed no growth 4. Hx of Hypertension. 5. Hx of gout. 6. Anemia - s/p pRBC 7. DVT ppx - on SCD 8. Low TSH; improving - Dr. Fermin following - no need for levothyroxine per Dr. Fermin 9. Zee UTI - Urine Cx showed zee albicans - On fluconazole 200mg daily for 5 days (05/04 - ) per ID 10. Hypokalemia - potassium replaced per neprho 11. Hypomagnesemia - Mg replaced per nephro 12. 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
[2020-05-08 10:49] LABS: ANION GAP 4 mmol/L (5-15); BLOOD UREA NITROGEN 6 mg/dL (7-18); CALCIUM 9.4 MG/DL (8.5-10.1); CARBON DIOXIDE 33 MMOL/L (21-32); CHLORIDE 104 MMOL/L (98-107); CREATININE 0.6 MG/DL (0.55-1.30); PHOSPHORUS 3.5 MG/DL (2.5-4.9); POTASSIUM 3.8 MMOL/L (3.5-5.1); SODIUM 141 MMOL/L (136-145)
--- NOTE | 2020-05-08 11:42 | General Progress Note ---
Subjective ROS Limited/Unobtainable: Yes Allergies: Coded Allergies: No Known Allergies (Unverified , 04/11/20) Objective Last 24 Hour Vital Signs Date Time Temp Pulse Resp B/P (MAP) Pulse Ox O2 Delivery O2 Flow Rate FiO2 05/08/20 09:00 Nasal Cannula 2.0 05/08/20 08:00 98.1 86 18 103/70 (81) 97 05/08/20 04:00 98.1 103 18 105/66 (79) 93 05/08/20 00:00 98.1 100 18 101/66 (78) 92 05/07/20 21:00 Nasal Cannula 2.0 05/07/20 20:00 97.8 108 18 93/63 (73) 96 05/07/20 16:00 98.2 84 18 101/61 (74) 96 05/07/20 14:06 97.5 05/07/20 12:00 97.5 100 18 110/69 (83) 96 Intake and Output 05/07/20 05/08/20 19:00 07:00 Intake Total 600 ml Output Total 800 ml 800 ml Balance -200 ml -800 ml Intake Oral 600 ml Output Urine Total 800 ml 800 ml Laboratory Tests 05/07/20 12:10: White Blood Count 4.7L, Red Blood Count 3.02L, Hemoglobin 8.2L, Hematocrit 26.9L , Mean Corpuscular Volume 89, Mean Corpuscular Hemoglobin 27.4, Mean Corpuscular Hemoglobin Concent 30.7L, Red Cell Distribution Width 20.9H, Platelet Count 312, Mean Platelet Volume 6.3L, Neutrophils (%) (Auto) 66.6, Lymphocytes (%) (Auto) 13.9L, Monocytes (%) (Auto) 10.5H, Eosinophils (%) (Auto) 6.9H, Basophils (%) (Auto) 2.1H, Sodium Level 140, Potassium Level 3.6, Chloride Level 103, Carbon Dioxide Level 33H, Anion Gap 4L, Blood Urea Nitrogen 6L, Creatinine 0.7, Estimat Glomerular Filtration Rate > 60, Glucose Level 109H, Calcium Level 9.2, Phosphorus Level 3.7, Magnesium Level 1.5L 05/08/20 09:35: Sodium Level 141, Potassium Level 3.8, Chloride Level 104, Carbon Dioxide Level 33H, Anion Gap 4L, Blood Urea Nitrogen 6L, Creatinine 0.6, Estimat Glomerular Filtration Rate > 60, Glucose Level 91, Calcium Level 9.4, Phosphorus Level 3.5, Magnesium Level 1.8 Height (Feet): 5 Height (Inches): 7.00 Weight (Pounds): 150 General Appearance: no apparent distress EENT: normal ENT inspection Neck: supple Cardiovascular: normal rate Respiratory/Chest: decreased breath sounds Abdomen: normal bowel sounds, non tender, soft Extremities: non-tender Assessment/Plan Status: stable Assessment/Plan: iron def anemia mild elevated CEA lymphoma on chemo covid positive neg stool ob iv iron fu H&H needs out patient fu for colonoscopy fu oncology CT reviewed colace miralax lactulose linzess marinol eating better had BM today Patrick Carter MD May 08, 2020 11:42
[2020-05-08 12:00] VITALS: BP 104/80
--- NOTE | 2020-05-08 13:19 | Nephrology Progress Note ---
Assessment/Plan Plan #acute kidney injury likely due to vanco toxicity #hypokalemia- #hypomagnesemia #Acute on chronic anemia #h/p non- hodgkins lymphoma #possible sepsis #+ COVID #Femoral intertrochanteric hip fracture. - replete k and mag - Pulmonary eval - prbc transfusion prn - replete lytes - hemo-onc eval - ID eval - monitor CBC - avoid nephrotoxins - ortho eval - spine eval for L3 acute on chronic bone infarct, less likely neoplasm or infection? times spent 65 min Subjective ROS Limited/Unobtainable: No Constitutional: Reports: weakness HEENT: Denies: no symptoms, eye pain, blurred vision, tearing, double vision, ear pain, ear discharge, nose pain, nose congestion, throat pain, throat swelling, mouth pain, mouth swelling, other Genitourinary: Denies: no symptoms, burning, discharge, frequency, flank pain, hematuria, incontinence, pain, urgency, other Neurologic/Psychiatric: Denies: no symptoms, anxiety, depressed, emotional problems, headache, numbness, paresthesia, pre-existing deficit, seizure, tingling, tremors, weakness, other Subjective Cr better today mag and K low repleted hip fracture noted ortho consulted Impression: Minimal distention of the rectum with feces, could represent mild rectal fecal impaction. Equivocal slight thickening of the rectal wall and stranding of the perirectal fat, if real could indicate mild stercoral proctitis Comminuted fracture of the left femoral head, neck, and intertrochanteric region, ununited. Possibly acute, but abundant soft tissues surrounding the fracture area raises possibility that this could be chronic. Correlate with clinical findings Other findings as noted, including evidence of old T12 vertebral body compression fracture and prior vertebral augmentation procedure, Morales catheter, subcentimeter low-attenuation lesions which probably represent renal cysts, small sliding-type hiatal hernia Impression: Unusual signal abnormality of the posterolateral aspect of the L3 vertebral body on the right. This appears to be confined to the vertebral body marrow space. Prior CT scan in retrospect demonstrates sclerotic areas in the same location. Most likely differential consideration is an atypical hemangioma. Other possibilities include acute on chronic bone infarct, less likely neoplasm or infection No other unusual contrast enhancement. No findings to suggest discitis or epidural abscess. Objective Objective Last 24 Hour Vital Signs Date Time Temp Pulse Resp B/P (MAP) Pulse Ox O2 Delivery O2 Flow Rate FiO2 05/08/20 12:00 96.8 70 17 104/80 (88) 97 05/08/20 09:00 Nasal Cannula 2.0 05/08/20 08:00 98.1 86 18 103/70 (81) 97 05/08/20 04:00 98.1 103 18 105/66 (79) 93 05/08/20 00:00 98.1 100 18 101/66 (78) 92 05/07/20 21:00 Nasal Cannula 2.0 05/07/20 20:00 97.8 108 18 93/63 (73) 96 05/07/20 16:00 98.2 84 18 101/61 (74) 96 05/07/20 14:06 97.5 Intake and Output 05/07/20 05/08/20 19:00 07:00 Intake Total 600 ml Output Total 800 ml 800 ml Balance -200 ml -800 ml Intake Oral 600 ml Output Urine Total 800 ml 800 ml Laboratory Tests 05/08/20 09:35: Sodium Level 141, Potassium Level 3.8, Chloride Level 104, Carbon Dioxide Level 33H, Anion Gap 4L, Blood Urea Nitrogen 6L, Creatinine 0.6, Estimat Glomerular Filtration Rate > 60, Glucose Level 91, Calcium Level 9.4, Phosphorus Level 3.5, Magnesium Level 1.8 Height (Feet): 5 Height (Inches): 7.00 Weight (Pounds): 150 Objective General Appearance: no apparent distress EENT: PERRL/EOMI Neck: non-tender, normal alignment Cardiovascular: normal peripheral pulses, normal rate Respiratory/Chest: chest wall non-tender, lungs clear Abdomen: normal bowel sounds, non tender Neurologic: alert, oriented x 3 Kallie Dykes M.D. May 08, 2020 13:19
--- NOTE | 2020-05-08 13:25 | NUR ---
RD ASSESSMENT & RECOMMENDATIONS SEE CARE ACTIVITY FOR COMPLETE ASSESSMENT DAILY ESTIMATED NEEDS: Needs based on Wound/ 68kg 25-30 kcals/kg 9476-1224 total kcals 1.25-1.5 g protein/kg 85-102 g total protein 25-30 mL/kg 7102-2821 total fluid mLs NUTRITION DIAGNOSIS: Increased kcal/prot/micronutrients needs R/T wound healing as evidenced by pt admitted w/ sacral wound, stage 2 per documentation. CURRENT DIET:REGULAR PO DIET RECOMMENDATIONS: Maintain Regular diet/ texture as tolerated ADDITIONAL RECOMMENDATIONS: * Calibrated bedscale wt * Wound healing: Continue Vit C + MVI LELO BID * Maintain Ensure Enlive BID + Snacks TID * Monitor lytes, replete as needed * Accuchecks for close BG monitoring (no further hypoglycemic episodes) .
--- NOTE | 2020-05-08 14:40 | NUR ---
CASE MANAGEMENT:REVIEW SI;ACUTE POSTHEMORRHAGIC ANEMIA. HIP FRACTURE. 98.1 103 18 105/66 92% 2L NC IS;NORCO PO Q6 PRN MORPHINE SULFATE IV Q3 PRN MARINOL PO BID VIT C PO QD LINZESS PO QD HEPARIN SQ Q8 MAG-OX PO TID LACTULOSE PO TID BACLOFEN PO TID ALLOPURINOL PO QD MED SURG STATUS DCP;SNF PLACEMENT
--- NOTE | 2020-05-08 15:37 | Cardiac Electrophysiology PN ---
Assessment/Plan Assessment/Plan 1. Sinus tachycardia due to sepsis, anemia and COVID. Can not use beta-domenico as blood pressure is 100/70. 2. COVID pneumonia. Now off isolation 3. Hypokalemia. 4. Hypomagnesemia. 5. History of non-Hodgkin lymphoma. 6. Leukopenia and anemia. FU Dr. Valencia S/P PRBC 7. Fever. 8. Low Mg replaced 9. Left Hip Fx; Likely Chronic > Patient states she fell 5 months ago. Also had hard fall on coccyx in 2018. Minimal pain in left hip Per Dr. Payan. Given patient bed bound risks > benefits. LUKE RN Subjective Subjective No events. Covid isolation DCed. On 2 liter NC. Awaiting SNIF placement S/P PRBC for 7.6. Has Left hip Fx. No surgery at this time . ECG sinus tach 127 Venous Duplex no DVT Objective Last 24 Hour Vital Signs Date Time Temp Pulse Resp B/P (MAP) Pulse Ox O2 Delivery O2 Flow Rate FiO2 05/08/20 12:00 96.8 70 17 104/80 (88) 97 05/08/20 09:00 Nasal Cannula 2.0 05/08/20 08:00 98.1 86 18 103/70 (81) 97 05/08/20 04:00 98.1 103 18 105/66 (79) 93 05/08/20 00:00 98.1 100 18 101/66 (78) 92 05/07/20 21:00 Nasal Cannula 2.0 05/07/20 20:00 97.8 108 18 93/63 (73) 96 05/07/20 16:00 98.2 84 18 101/61 (74) 96 Intake and Output 05/07/20 05/08/20 19:00 07:00 Intake Total 600 ml Output Total 800 ml 800 ml Balance -200 ml -800 ml Intake Oral 600 ml Output Urine Total 800 ml 800 ml Laboratory Tests Test 05/08/20 09:35 Sodium Level 141 MMOL/L (136-145) Potassium Level 3.8 MMOL/L (3.5-5.1) Chloride Level 104 MMOL/L (98-107) Carbon Dioxide Level 33 MMOL/L (21-32) H Anion Gap 4 mmol/L (5-15) L Blood Urea Nitrogen 6 mg/dL (7-18) L Creatinine 0.6 MG/DL (0.55-1.30) Estimat Glomerular Filtration Rate > 60 mL/min (>60) Glucose Level 91 MG/DL (74-106) Calcium Level 9.4 MG/DL (8.5-10.1) Phosphorus Level 3.5 MG/DL (2.5-4.9) Magnesium Level 1.8 MG/DL (1.8-2.4) Objective HEAD AND NECK: No JVD. LUNGS: Coarse rhonchi. CARDIOVASCULAR: Regular S1 and S2 with no gallop or murmur. ABDOMEN: Soft. EXTREMITIES: No pitting edema. Ehsan Wan MD May 08, 2020 15:37
[2020-05-08 16:00] VITALS: BP 106/70
--- NOTE | 2020-05-08 16:06 | General Progress Note ---
Subjective Date patient seen: May 08, 2020 Genitourinary: Reports: hematuria Allergies: Coded Allergies: No Known Allergies (Unverified , 04/11/20) Subjective No acute events overnight per nursing. Feels well. Pain is well controlled. Pending placement. No complaints Review of systems: Constitutional: Denies: chills, diaphoresis, malaise, weakness, HEENT: Denies: eye pain, blurred vision, double vision, ear pain, nose pain, throat pain, Cardiovascular: Denies: chest pain, edema, lightheadedness, palpitations Respiratory: No sob, cough, milton Gastrointestinal/Abdominal: Denies: abdominal pain, black stools, blood in stool, constipation, diarrhea, nausea, poor fluid intake vomiting, other Genitourinary: Denies: burning, discharge, frequency, Neurologic/Psychiatric: Denies: headache, numbness, paresthesia, new weakness, other Endocrine: Denies: excessive sweating, flushing, intolerance to cold, MSK: denies joint pains, swelling, stiffness +back pain (improving) Hematologic/Lymphatic: Denies: anemia, easy bleeding, easy bruising, Objective Last 24 Hour Vital Signs Date Time Temp Pulse Resp B/P (MAP) Pulse Ox O2 Delivery O2 Flow Rate FiO2 05/08/20 12:00 96.8 70 17 104/80 (88) 97 05/08/20 09:00 Nasal Cannula 2.0 05/08/20 08:00 98.1 86 18 103/70 (81) 97 05/08/20 04:00 98.1 103 18 105/66 (79) 93 05/08/20 00:00 98.1 100 18 101/66 (78) 92 05/07/20 21:00 Nasal Cannula 2.0 05/07/20 20:00 97.8 108 18 93/63 (73) 96 Intake and Output 05/07/20 05/08/20 19:00 07:00 Intake Total 600 ml Output Total 800 ml 800 ml Balance -200 ml -800 ml Intake Oral 600 ml Output Urine Total 800 ml 800 ml Laboratory Tests 05/08/20 09:35: Sodium Level 141, Potassium Level 3.8, Chloride Level 104, Carbon Dioxide Level 33H, Anion Gap 4L, Blood Urea Nitrogen 6L, Creatinine 0.6, Estimat Glomerular Filtration Rate > 60, Glucose Level 91, Calcium Level 9.4, Phosphorus Level 3.5, Magnesium Level 1.8 Height (Feet): 5 Height (Inches): 7.00 Weight (Pounds): 150 Objective General: WDWN female in NAD, A&O x 4 HEENT: Normocephalic cephalic atraumatic, pupils equal round reactive to light and accommodation, nares patent and no symmetrical, no tonsillar exudates, mucous membranes moist CV: Regular rate regular rhythm, no murmurs, rubs, or gallops + POrt site is C/d/i. Pulm: Lungs clear to auscultation bilaterally. No wheezes, rhonchi, or rales GI: Soft, nontender, nondistended, bowel sounds present + eaton in place, no suprapubic TTP Neuro: CN 2-12 intact bilaterally, no focal signs. Moving all extremities Ext: +Trace LE edema and tenderness bilaterally Skin: no rashes lesions or ulcers Msk: Joints symmetrical in upper extremity and lower extremity bilaterally, no joint swelling. + left hip pain (slightly) Lymph: No lymphadenopathy in upper extremity and lower extremity Assessment/Plan Status: stable Assessment/Plan: #Left Hip Fx; Likely Chronic > Patient states she fell 5 months ago but no recent falls. Also had hard fall on coccyx in 2018. Minimal pain in left hip > Patient states she has not walked for months but is not paraplegic. Severe debilitation. - appreciate ortho eval: Dr. Payan. Given patient bed bound risks > benefits. Outpatient consideration. Patient asking ?timeline of surgery. Ortho aware. - NWB LLE -Per Ortho, no immediate surgical indication, but will need OP f/u -Confirm weight bearing recs for PT -Patient would like plan confirmed for surgery prior to d/c given she is feeling very debilitated- F/U with ortho -d/w Cardiology. Not a candidate for surgery right now. Outpatient follow up. -Pending placement vs Home w/ HH #Lesia UTI - FLuconazole 200mg daily for 5 days (05/04 - ) - Abx per ID - monitor QTC #hypomagnesemia - replete PRN #LE edema/pain - venous duplex to rule out DVT: negative - SCDs #Sepsis 2/2 PORT infection, S/P Port Removal -Resolved #COVID 19 pneumonia (febrile, tachycardic)-Currently saturating well on 2L NC -Appreciate ID -S/p Vanco and Cefepime Tx-Cultures noted -Continue NC Support -If she goes home, may need home 02; consider ABG but await PT eval #Lymphoma-was receiving Chemo--> Known mets to spine ( see MRI ) #Pancytopenia including Blood Transfusion Requiring Anemia --> S/P PRBC transfusions and Neupogen, likely related to chemo/marrow suppression #L3 Lesion on MRI -Appreciate Oncology -Appreciate Radiation Oncology -Resume chemo as outpatient #Hypothyroidism, suspect central given TSH and T4 both low -Appreciate Endocrine Recs -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 COVID vs. cancer related? - appears to have resolved - CTM Fever curve. Could be due to underlying malignancy - Repeat Blood cultures NGTD - Repeat UA: negative - Repeat CXR: Bronchial thickening - Check CT C/A/P including CT angio to eval for PE. : reviewed. No PE. No obvious infection. Incidental left hip fracture - IV fluids as needed - D/W ID. - Port has been removed at OSH - , - ngtd - Cefepime (04/14 - 04/15) - Per patient she is to continue on Vancomycin till 04/25 - D/c vanc - ID Consult, appreciate recs - MRI C/T/L spine w/wo contrast to eval for abscess: No sign of infection, abscess or osteo #JIM, pre-renal vs. due to vanc toxicity - resolved > Vanc level 35 - urine lytes - Nephrology on board: D/w Dr. hatch - Fluids per nephro #Hx of Lymphoma #leukopenia improving > S/p mets to spine s/p surgery earlier this year and XRT/Chemo > Last chemo in February 2020 - All information per patient - Oncology following, appreciate recs - Can continue current therapy with outpatient onc - No acute interventions needed inpatient - Neupogen x 1 04/21 #Acute blood loss anemia - resolving #anemia of chronic disease #Normocytic anemia Patient presented with Hb 6.7 with normal MCV. History of lymphoma per patient and is receiving chemo tx, last known to be February 2020. - 2U PRBCs ordered and transfused on admission - Hb Stable - Rectic count wnl, Iron and Iron sat low, Ferritin wnl - No active signs of bleeding - Hematology consulted, appreciate recs - CTM for signs of bleeding - Patient will need colonoscopy as outpatient in the future : Gi Consulted; Dr. Carter #sinus tachycardia, due to COVID pna - monitor EKG - Cardiology consulted: Dr. Wan #proctitis #Constipation- > improving - Aggressive bowel regimen - GI aware: Appreciate recommendations - Colace, miralax, - s/p enema and ducolax with improvement #chronic urinary retention - since patient had spine surgery earlier in the year - unsure if has true urinary retention - d/w nephrology -> voiding trial, however patient refused. #Hypokalemia #hypomagnesia - Lytes replaced - appreciate nephro management FENPPX DVTPPX: SCDs. Patient refusing DVT ppx shots (risks of of refusal including life threatening blood clot and PE explained to patient but still wishes to refuse) Fluids: per nephro Diet: regular Lines: PIV PT/OT: pending Code status:Full Dispo: back to SNF Reason for Continued Hospitalization: hypoxia, fever Dispo - Discharge back to SNF. MIPS ([employer]-based Incentive Payment System) Applicable CPT: 50897, 72983 CHECK ALL THAT ARE MET: [] Measure #5 (CHF): All ages. Prescribe LINDSAY/ARB upon discharge for patients with left ventricular systolic dysfunction. If not, the reason is clearly documented in the medical chart [] Measure #8 (CHF): All ages. Prescribe a beta domenico upon discharge for patients with left ventricular systolic dysfunction. If not, the reason is clearly documented in the medical chart. [x] Measure #47: Advance care plan or surrogate decision maker documented in the medical record. [x] Measure #130 The provider has documented, updated, or reviewed the patien ts current medication list and has documented it in the patients note. [] Measure #374 (All): Send report to referring provider. [] Measure #407(Sepsis due to MSSA bacteremia): Age 18+ Patient treated with a beta-lactam antibiotic (Nafcillin, Oxacillin or Cefazolin) as definitive therapy. MEDICAL COMPLEXITYHigh complexity medical decision making (need 2/3 categories)Problem - need 4 points [x]Acute/new problem with new plan for workup (4 points, 1 max) [] Acute/new problem without additional workup (3 points, 1 max) [] Unstable chronic problem actively being managed (2 point each, 2 max) [x] Stable chronic problem actively being managed (1 point each, 2 max) [x] Self-limited/transient process (constipation, muscle ache, etc) (1 point each, 2 max) Data - need 4 points [x] Reviewed labs/imaging studies (1 points, 2 max) [x] Independent review of imaging (EKG, xrays, etc) (2 points, 2 max) [x] Discussed case with consult/other MD/RN (2 points, 2 max) High Risk - qualify if have one of the following: [x] Severe exacerbation of acute problem, acute mental status change, IV narcotics, monitoring drug levels (vancomycin, INR, tacrolimus etc) I spent 30 minutes on this patient's case, and 18 mins was dedicated to counseling and/or care coordination. Discussed with nephrology,cardiology, RN at bedside. Time of note may not reflect time of encounter Jus Brunner D.O. May 08, 2020 16:06
--- NOTE | 2020-05-08 19:22 | NUR ---
HAND-OFF: Report given to REA Leonard.
--- NOTE | 2020-05-08 19:30 | NUR ---
NURSE NOTES: The patient is alert and oriented x4 and is on 2 liters of oxygen via NC well tolerated.She does not seem to be in any active distress at this time. She is paraplegic and has a Morales situated under gravity due to retention. The patient has a R, hand 24g saline locked that is patent and asymptomatic. She is essentially bedbound with bed in low level and locked and the call light within easy reach. will continue to monitor as indicated
[2020-05-08 20:00] VITALS: BP 101/68
[2020-05-08] MEDS: Dyna-Hex 2% Top Sol 2oz TOPIC SCH (20:00)
--- NOTE | 2020-05-08 23:02 | Neurology Progress Note ---
Interim History Interim History ROS Limited/Unobtainable: No Interim History ok for placement Objective Physical Exam Last Vital Signs Date Time Temp Pulse Resp B/P (MAP) Pulse Ox O2 Delivery O2 Flow Rate FiO2 05/08/20 21:00 Nasal Cannula 2.0 05/08/20 20:00 97.8 102 20 101/68 (79) 99 05/06/20 20:08 28 Laboratory Tests Test 05/08/20 09:35 Sodium Level 141 MMOL/L (136-145) Potassium Level 3.8 MMOL/L (3.5-5.1) Chloride Level 104 MMOL/L (98-107) Carbon Dioxide Level 33 MMOL/L (21-32) H Anion Gap 4 mmol/L (5-15) L Blood Urea Nitrogen 6 mg/dL (7-18) L Creatinine 0.6 MG/DL (0.55-1.30) Estimat Glomerular Filtration Rate > 60 mL/min (>60) Glucose Level 91 MG/DL (74-106) Calcium Level 9.4 MG/DL (8.5-10.1) Phosphorus Level 3.5 MG/DL (2.5-4.9) Magnesium Level 1.8 MG/DL (1.8-2.4) Impression/Recommendations Problems: (1) Anemia Status: stable Diagnostic Impression Chronic weakness, LE worse than UEs MRI spine noted, osteoma wo spine compression slplaminectomy COVID 19 pneumonia (febrile, tachycardic) Hx of Lymphoma cont medical support pain control PT as able Renny Bajwa MD May 08, 2020 23:02
[2020-05-09] VITALS: BP 98/59
[2020-05-09] MEDS: HYDROcodone/Acetamin 10/325 tab ORAL PRN ×4 (00:44→21:20)
[2020-05-09 04:00] VITALS: BP 104/64
[2020-05-09] MEDS: Heparin 5000 units/ml inj SUBQ SCH ×3 (05:52→21:21)
--- NOTE | 2020-05-09 06:54 | Hematology/Onc Progress Note ---
Assessment/Plan Assessment/Plan # Leukopenia COVID19++++++++++ --> hep and hiv order as needed --> wbc 4-->3-->2.9->2->4.6--4.1-->3.6-->4.7-->3.6->4.1-->4.7 --> Neupogen 300 x1 04/21 --> isolation if anc<500 # Non-Hodgkins Lymphoma is s/p chemotherapy in the past --> to return to [facility] for [facility] treatment --> likely for ct/pet as outpatient --> CT Here shows no e/o disease --> imaging has been reviewed thus far --> end date of 04/2020 # Anemia likely of chronic disease -- does not appear to have iron deficiency --> transfuse as needed, tibc and ferritin are cw acd --> hgb 7.8-->8.6-->8.5-->8.4->7.6-->10-->9.9->9.6-->8.7 --> no hemolysis is noted --> s/p transfusion on admission # Covid 19++ with SIRS (febrile, tachycardic) --> per pulm and id --> CXR with diffuse non-specific inflammatory/infectious process --> s/p Cefepime (04/14 - 04/15) # Hypokalemia # Hypomagnesia # Chronic Back pain # Full Code # Dvt ppx heparin sq Appreciate consultation and reagan Rn Subjective Constitutional: Denies: no symptoms, chills, fever, malaise, weakness, other HEENT: Denies: no symptoms, eye pain, blurred vision, tearing, double vision, ear pain, ear discharge, nose pain, nose congestion, throat pain, throat swelling, mouth pain, mouth swelling, other Cardiovascular: Denies: no symptoms, chest pain, edema, irregular heart rate, lightheadedness, palpitations, syncope, other Respiratory: Denies: no symptoms, cough, shortness of breath, SOB with excertion, SOB at rest, sputum, wheezing, other Gastrointestinal/Abdominal: Denies: no symptoms, abdomen distended, abdominal pain, black stools, tarry stools, blood in stool, constipated, diarrhea, difficulty swallowing, nausea, poor appetite, poor fluid intake, rectal bleeding, vomiting, other Genitourinary: Denies: no symptoms, burning, discharge, frequency, flank pain, hematuria, incontinence, pain, urgency, other Neurologic/Psychiatric: Denies: no symptoms, anxiety, depressed, emotional problems, headache, numbness, paresthesia, pre-existing deficit, seizure, tingling, tremors, weakness, other Allergies: Coded Allergies: No Known Allergies (Unverified , 04/11/20) Subjective 04/17 is on room air, more comfortable, potential dc to snf 04/18 labs reviewed, no bleeding, meds noted, no night sweats 04/19 sleeping comfortably, no major events, no night sweats 04/20 meds noted, labs reviewed, wbc 2.9, hep and hiv is neg 04/21 labs reviewed, in am, the wbc was 2, to get neupogen x 1 dose now 04/23 labs noted, no bleeding, wbc 4, hgb remains low, but holding off trans 04/24 labs are pending for am, meds reviewed, no bleeding 04/25 meds reviewed, labs noted, no night sweats, reagan rn at bedside, no new events 04/26 labs reviewed, meds noted, no bleeding, wbc 3, hgb 7.6 04/27 reagan rn at bedside, labs are noted, no bleeding, refusing heparin now sq 04/28 labs have been reviewed, is on room air, no bleeding, tachy 04/30 labs pending, no night sweats, meds reviewed, tachy, no night sweats, wants iv iron 05/01 dc planning, meds noted, for labs this am, no new events 05/02 meds reviewed, has been refusing care, continue heparin sq 05/03 labs reviewed, on 2lnc, no bleeding, remains on hep but refusing 05/04 meds ntoed, labs reviewed, no new changes, reagan RN 05/05 meds noted, no bleeding, labs reviewed, no f/c 12: no acute events reported, no resp distress 05/07: no resp distress, vss on RA dc planning continues 05/08 on norco prn, nc, eaton, labs are noted 05/09 meds reviewed, labs pending, on nc, eaton Objective Objective Current Medications Medications (Trade) Dose Ordered Sig/Angelika Route PRN Reason Start Time Stop Time Status Last Admin Dose Admin Acetaminophen (Tylenol) 650 mg Q6H PRN ORAL Mild Pain (Pain Scale 1-3) 04/12/20 02:45 05/12/20 02:44 05/06/20 00:36 Acetaminophen (Tylenol) 650 mg Q6H PRN ORAL FEVER 04/12/20 16:30 05/12/20 16:29 04/27/20 00:38 Acetaminophen/ Hydrocodone Bitart ([place] 10/325) 1 tab Q6H PRN ORAL severe pain 05/04/20 22:17 05/11/20 22:16 05/09/20 00:44 Acetaminophen/ Hydrocodone Bitart ([place] 5/325) 1 tab Q6H PRN ORAL moderate pain 05/04/20 18:30 05/11/20 18:29 05/07/20 08:38 Allopurinol (allopurinoL) 300 mg DAILY ORAL 04/12/20 09:00 05/12/20 08:59 05/08/20 08:19 Ascorbic Acid (Vitamin C) 500 mg DAILY ORAL 04/26/20 09:00 05/26/20 08:59 05/08/20 08:18 Baclofen (Lioresal) 10 mg THREE TIMES A DAY ORAL 04/12/20 09:00 05/12/20 08:59 05/04/20 09:31 Chlorhexidine Gluconate (Christy-Hex 2%) 1 applic Q24H TOPIC 04/25/20 20:00 07/24/20 19:59 04/30/20 20:46 Docusate Sodium (Colace) 100 mg TWICE A DAY ORAL 04/27/20 09:00 05/20/20 08:59 05/08/20 08:18 Dronabinol (Marinol) 5 mg BID ORAL 05/01/20 09:00 07/30/20 08:59 05/08/20 08:18 Fluconazole (Diflucan) 200 mg DAILY ORAL 05/04/20 14:00 05/09/20 13:59 05/08/20 08:19 Heparin Sodium (Porcine) (Heparin 5000 units/ml) 5,000 units EVERY 8 HOURS SUBQ 04/24/20 22:00 06/08/20 21:59 05/05/20 05:38 Lactulose (Cephulac) 20 gm THREE TIMES A DAY ORAL 04/21/20 13:00 05/21/20 12:59 05/08/20 08:18 Linaclotide (Linzess) 290 mcg BEFORE BREAKFAST ORAL 04/26/20 06:30 07/25/20 06:29 05/09/20 05:58 Magnesium Oxide (Mag-Ox 400mg) 400 mg THREE TIMES A DAY ORAL 04/30/20 13:00 05/30/20 12:59 05/08/20 17:05 Morphine Sulfate (Morphine Sulfate) 2 mg Q3H PRN IVP Severe Pain (Pain Scale 7-10) 05/04/20 19:17 05/11/20 19:16 05/08/20 09:44 Morphine Sulfate (Morphine Sulfate) 4 mg Q3H PRN IVP SEVERE BREAKTHRU PAIN 05/04/20 19:18 05/11/20 19:17 Multivitamins (Multivitamins) 1 tab DAILY ORAL 04/26/20 09:00 05/26/20 08:59 05/08/20 08:19 Ondansetron HCl (Zofran) 4 mg Q6H PRN IVP Nausea & Vomiting 04/19/20 13:30 05/19/20 13:29 04/29/20 18:17 Polyethylene Glycol (Miralax) 17 gm DAILY ORAL 04/20/20 09:00 05/20/20 08:59 05/08/20 08:18 Last 24 Hour Vital Signs Date Time Temp Pulse Resp B/P (MAP) Pulse Ox O2 Delivery O2 Flow Rate FiO2 05/09/20 04:00 97.8 105 20 104/64 (77) 96 05/09/20 00:00 97.4 106 20 98/59 (72) 98 05/08/20 21:00 Nasal Cannula 2.0 05/08/20 20:00 97.8 102 20 101/68 (79) 99 05/08/20 16:00 98.1 80 20 106/70 (82) 97 05/08/20 12:00 96.8 70 17 104/80 (88) 97 05/08/20 09:00 Nasal Cannula 2.0 05/08/20 08:00 98.1 86 18 103/70 (81) 97 05/08/20 04:00 98.1 103 18 105/66 (79) 93 05/08/20 00:00 98.1 100 18 101/66 (78) 92 05/07/20 21:00 Nasal Cannula 2.0 05/07/20 20:00 97.8 108 18 93/63 (73) 96 05/07/20 16:00 98.2 84 18 101/61 (74) 96 05/07/20 14:06 97.5 05/07/20 12:00 97.5 100 18 110/69 (83) 96 05/07/20 09:08 97.5 05/07/20 09:00 Nasal Cannula 2.0 05/07/20 08:00 97.5 100 18 102/61 (75) 96 Intake and Output 05/08/20 05/09/20 19:00 07:00 Intake Total 140 ml 180 ml Output Total 900 ml Balance 140 ml -720 ml Intake Oral 140 ml 180 ml Output Urine Total 900 ml Labs Test 05/07/20 12:10 05/08/20 09:35 White Blood Count 4.7 K/UL (4.8-10.8) Red Blood Count 3.02 M/UL (4.20-5.40) Hemoglobin 8.2 G/DL (12.0-16.0) Hematocrit 26.9 % (37.0-47.0) Mean Corpuscular Volume 89 FL (80-99) Mean Corpuscular Hemoglobin 27.4 PG (27.0-31.0) Mean Corpuscular Hemoglobin Concent 30.7 G/DL (32.0-36.0) Red Cell Distribution Width 20.9 % (11.6-14.8) Platelet Count 312 K/UL (150-450) Mean Platelet Volume 6.3 FL (6.5-10.1) Neutrophils (%) (Auto) 66.6 % (45.0-75.0) Lymphocytes (%) (Auto) 13.9 % (20.0-45.0) Monocytes (%) (Auto) 10.5 % (1.0-10.0) Eosinophils (%) (Auto) 6.9 % (0.0-3.0) Basophils (%) (Auto) 2.1 % (0.0-2.0) Sodium Level 140 MMOL/L (136-145) 141 MMOL/L (136-145) Potassium Level 3.6 MMOL/L (3.5-5.1) 3.8 MMOL/L (3.5-5.1) Chloride Level 103 MMOL/L (98-107) 104 MMOL/L (98-107) Carbon Dioxide Level 33 MMOL/L (21-32) 33 MMOL/L (21-32) Anion Gap 4 mmol/L (5-15) 4 mmol/L (5-15) Blood Urea Nitrogen 6 mg/dL (7-18) 6 mg/dL (7-18) Creatinine 0.7 MG/DL (0.55-1.30) 0.6 MG/DL (0.55-1.30) Estimat Glomerular Filtration Rate > 60 mL/min (>60) > 60 mL/min (>60) Glucose Level 109 MG/DL (74-106) 91 MG/DL (74-106) Calcium Level 9.2 MG/DL (8.5-10.1) 9.4 MG/DL (8.5-10.1) Phosphorus Level 3.7 MG/DL (2.5-4.9) 3.5 MG/DL (2.5-4.9) Magnesium Level 1.5 MG/DL (1.8-2.4) 1.8 MG/DL (1.8-2.4) Height (Feet): 5 Height (Inches): 7.00 Weight (Pounds): 150 Objective Gen: nad Pulm: ctab, no cwr CV: rrr Abd: soft, nt Ext: no cce Martinez Hill MD May 09, 2020 06:54
--- NOTE | 2020-05-09 07:12 | NUR ---
NURSE HAND-OFF: Important Events on Shift:Alert and stable Patient Status: Diet: Pending Orders: Pending Results/Labs: Pending MD notification: Latest Vital Signs: Temperature 97.8 , Pulse 105 , B/P 104 /64 , Respiratory Rate 20 , O2 SAT 96 , Nasal Cannula, O2 Flow Rate 2.0 . Vital Sign Comment: Latest [place] Fall Score: 55 Fall Risk: High Risk Safety Measures: Call light Within Reach, Bed Alarm Zone 1, Side Rails Side Rails x3, Bed position Low and Locked. Fall Precautions: Door Sign Patient Fall Education Report given to .
[2020-05-09 07:32] LABS: BASOPHILS % (AUTO) 2.4 % (0.0-2.0); EOSINOPHILS % (AUTO) 7.9 % (0.0-3.0); HEMATOCRIT 27.4 % (37.0-47.0); HEMOGLOBIN 8.5 G/DL (12.0-16.0); LYMPHOCYTES % (AUTO) 14.7 % (20.0-45.0); MEAN CORPUSCULAR VOLUME 89 FL (80-99); MONOCYTES % (AUTO) 10.7 % (1.0-10.0); NEUTROPHILS % (AUTO) 64.3 % (45.0-75.0); PLATELET COUNT 312 K/UL (150-450); RED BLOOD COUNT 3.07 M/UL (4.20-5.40); RED CELL DISTRIBUTION WIDTH 20.8 % (11.6-14.8); WHITE BLOOD COUNT 3.8 K/UL (4.8-10.8)
[2020-05-09 07:39] LABS: ANION GAP 5 mmol/L (5-15); BLOOD UREA NITROGEN 9 mg/dL (7-18); CALCIUM 9.6 MG/DL (8.5-10.1); CARBON DIOXIDE 32 MMOL/L (21-32); CHLORIDE 103 MMOL/L (98-107); CREATININE 0.6 MG/DL (0.55-1.30); POTASSIUM 3.7 MMOL/L (3.5-5.1); SODIUM 140 MMOL/L (136-145)
--- NOTE | 2020-05-09 07:45 | NUR ---
NURSE NOTES: patient in bed, alert and oriented x4 , on 2 L via NC. No SOB or respiratory distress. C/o pain 12/12, will administer pain med per order. Pt paraplegic BLE. Morales in place, patent draining to gravity. IV site intact and patent. Bed in low position and loced. Call light within reach. will continue to monitor.
[2020-05-09 08:00] VITALS: BP 126/53
--- NOTE | 2020-05-09 08:45 | General Progress Note ---
Subjective ROS Limited/Unobtainable: No Allergies: Coded Allergies: No Known Allergies (Unverified , 04/11/20) Objective Last 24 Hour Vital Signs Date Time Temp Pulse Resp B/P (MAP) Pulse Ox O2 Delivery O2 Flow Rate FiO2 05/09/20 04:00 97.8 105 20 104/64 (77) 96 05/09/20 00:00 97.4 106 20 98/59 (72) 98 05/08/20 21:00 Nasal Cannula 2.0 05/08/20 20:00 97.8 102 20 101/68 (79) 99 05/08/20 16:00 98.1 80 20 106/70 (82) 97 05/08/20 12:00 96.8 70 17 104/80 (88) 97 05/08/20 09:00 Nasal Cannula 2.0 Intake and Output 05/08/20 05/09/20 19:00 07:00 Intake Total 140 ml 180 ml Output Total 900 ml Balance 140 ml -720 ml Intake Oral 140 ml 180 ml Output Urine Total 900 ml Laboratory Tests 05/08/20 09:35: Sodium Level 141, Potassium Level 3.8, Chloride Level 104, Carbon Dioxide Level 33H, Anion Gap 4L, Blood Urea Nitrogen 6L, Creatinine 0.6, Estimat Glomerular Filtration Rate > 60, Glucose Level 91, Calcium Level 9.4, Phosphorus Level 3.5, Magnesium Level 1.8 05/09/20 06:08: Sodium Level 140, Potassium Level 3.7, Chloride Level 103, Carbon Dioxide Level 32, Anion Gap 5, Blood Urea Nitrogen 9, Creatinine 0.6, Estimat Glomerular Filtration Rate > 60, Glucose Level 88, Calcium Level 9.6, Magnesium Level 1.8, White Blood Count 3.8L, Red Blood Count 3.07L, Hemoglobin 8.5L, Hematocrit 27.4L , Mean Corpuscular Volume 89, Mean Corpuscular Hemoglobin 27.7, Mean Corpuscular Hemoglobin Concent 30.9L, Red Cell Distribution Width 20.8H, Platelet Count 312, Mean Platelet Volume 6.0L, Neutrophils (%) (Auto) 64.3, Lymphocytes (%) (Auto) 14.7L, Monocytes (%) (Auto) 10.7H, Eosinophils (%) (Auto) 7.9H, Basophils (%) (Auto) 2.4H Height (Feet): 5 Height (Inches): 7.00 Weight (Pounds): 150 General Appearance: no apparent distress EENT: normal ENT inspection Neck: supple Cardiovascular: normal rate Respiratory/Chest: decreased breath sounds Abdomen: normal bowel sounds, non tender, soft Extremities: non-tender Assessment/Plan Status: stable Assessment/Plan: iron def anemia mild elevated CEA lymphoma on chemo covid positive neg stool ob iv iron fu H&H needs out patient fu for colonoscopy fu oncology CT reviewed colace miralax lactulose tammy west eating better Patrick Carter MD May 09, 2020 08:45
--- NOTE | 2020-05-09 08:47 | Pulmonology Progress Note ---
Subjective ROS Limited/Unobtainable: No Interval Events: None new Constitutional: Reports: fever - resolved, fatigue HEENT: Repors: no symptoms Respiratory: Reports: no symptoms, dry cough Cardiovascular: Reports: no symptoms Gastrointestinal/Abdominal: Denies: nausea, vomiting, diarrhea Psychiatric: Denies: depression Skin: Denies: rash Musculoskeletal: Denies: pain Allergies: Coded Allergies: No Known Allergies (Unverified , 04/11/20) Objective Last 24 Hour Vital Signs Date Time Temp Pulse Resp B/P (MAP) Pulse Ox O2 Delivery O2 Flow Rate FiO2 05/09/20 04:00 97.8 105 20 104/64 (77) 96 05/09/20 00:00 97.4 106 20 98/59 (72) 98 05/08/20 21:00 Nasal Cannula 2.0 05/08/20 20:00 97.8 102 20 101/68 (79) 99 05/08/20 16:00 98.1 80 20 106/70 (82) 97 05/08/20 12:00 96.8 70 17 104/80 (88) 97 05/08/20 09:00 Nasal Cannula 2.0 Intake and Output 05/08/20 05/09/20 19:00 07:00 Intake Total 140 ml 180 ml Output Total 900 ml Balance 140 ml -720 ml Intake Oral 140 ml 180 ml Output Urine Total 900 ml Objective 05/09 no change, still on 2L NC 05/08 no change respiratory-salomon; stable 05/07 stable saturation 05/06 no change 05/05 no change respiratory-salomon; stable no change 05/03 no change; AM labs unavailable 05/02 on and off 2 L NC; NAD 05/01 no change 04/28 on and off 1 L NC; NAD 04/27 on and off 1 L NC; NAD 04/26 still on 1 L NC; NAD 04/25 no change respiratory-salomon 04/24 no change 04/23 on and off 1 lpm NC 04/22 saturating well on and off 1 lpm NC 04/21 no change 04/20 pt saturating well on 2 lpm NC; NAD 04/19 pt saturating well on 2 lpm NC; NAD 04/18 pt saturating well on 2 lpm NC General Appearance: WD/WN, no acute distress HEENT: normocephalic, atraumatic Respiratory: lungs clear Cardiovascular: normal rate, regular rhythm Abdomen: soft, non tender Genitourinary: other - Morales Extremities: no edema Laboratory Tests 05/08/20 09:35: Sodium Level 141, Potassium Level 3.8, Chloride Level 104, Carbon Dioxide Level 33H, Anion Gap 4L, Blood Urea Nitrogen 6L, Creatinine 0.6, Estimat Glomerular Filtration Rate > 60, Glucose Level 91, Calcium Level 9.4, Phosphorus Level 3.5, Magnesium Level 1.8 05/09/20 06:08: Sodium Level 140, Potassium Level 3.7, Chloride Level 103, Carbon Dioxide Level 32, Anion Gap 5, Blood Urea Nitrogen 9, Creatinine 0.6, Estimat Glomerular Filtration Rate > 60, Glucose Level 88, Calcium Level 9.6, Magnesium Level 1.8, White Blood Count 3.8L, Red Blood Count 3.07L, Hemoglobin 8.5L, Hematocrit 27.4L , Mean Corpuscular Volume 89, Mean Corpuscular Hemoglobin 27.7, Mean Corpuscular Hemoglobin Concent 30.9L, Red Cell Distribution Width 20.8H, Platelet Count 312, Mean Platelet Volume 6.0L, Neutrophils (%) (Auto) 64.3, Lymphocytes (%) (Auto) 14.7L, Monocytes (%) (Auto) 10.7H, Eosinophils (%) (Auto) 7.9H, Basophils (%) (Auto) 2.4H Current Medications Medications (Trade) Dose Ordered Sig/Angelika Route PRN Reason Start Time Stop Time Status Last Admin Dose Admin Acetaminophen (Tylenol) 650 mg Q6H PRN ORAL Mild Pain (Pain Scale 1-3) 04/12/20 02:45 05/12/20 02:44 05/06/20 00:36 Acetaminophen (Tylenol) 650 mg Q6H PRN ORAL FEVER 04/12/20 16:30 05/12/20 16:29 04/27/20 00:38 Acetaminophen/ Hydrocodone Bitart ([place] 10/325) 1 tab Q6H PRN ORAL severe pain 05/04/20 22:17 05/11/20 22:16 05/09/20 00:44 Acetaminophen/ Hydrocodone Bitart ([place] 5/325) 1 tab Q6H PRN ORAL moderate pain 05/04/20 18:30 05/11/20 18:29 05/07/20 08:38 Allopurinol (allopurinoL) 300 mg DAILY ORAL 04/12/20 09:00 05/12/20 08:59 05/08/20 08:19 Ascorbic Acid (Vitamin C) 500 mg DAILY ORAL 04/26/20 09:00 05/26/20 08:59 05/08/20 08:18 Baclofen (Lioresal) 10 mg THREE TIMES A DAY ORAL 04/12/20 09:00 05/12/20 08:59 05/04/20 09:31 Chlorhexidine Gluconate (Christy-Hex 2%) 1 applic Q24H TOPIC 04/25/20 20:00 07/24/20 19:59 04/30/20 20:46 Docusate Sodium (Colace) 100 mg TWICE A DAY ORAL 04/27/20 09:00 05/20/20 08:59 05/08/20 08:18 Dronabinol (Marinol) 5 mg BID ORAL 05/01/20 09:00 07/30/20 08:59 05/08/20 08:18 Fluconazole (Diflucan) 200 mg DAILY ORAL 05/04/20 14:00 05/09/20 13:59 05/08/20 08:19 Heparin Sodium (Porcine) (Heparin 5000 units/ml) 5,000 units EVERY 8 HOURS SUBQ 04/24/20 22:00 06/08/20 21:59 05/05/20 05:38 Lactulose (Cephulac) 20 gm THREE TIMES A DAY ORAL 04/21/20 13:00 05/21/20 12:59 05/08/20 08:18 Linaclotide (Linzess) 290 mcg BEFORE BREAKFAST ORAL 04/26/20 06:30 07/25/20 06:29 05/09/20 05:58 Magnesium Oxide (Mag-Ox 400mg) 400 mg THREE TIMES A DAY ORAL 04/30/20 13:00 05/30/20 12:59 05/08/20 17:05 Morphine Sulfate (Morphine Sulfate) 2 mg Q3H PRN IVP Severe Pain (Pain Scale 7-10) 05/04/20 19:17 05/11/20 19:16 05/08/20 09:44 Morphine Sulfate (Morphine Sulfate) 4 mg Q3H PRN IVP SEVERE BREAKTHRU PAIN 05/04/20 19:18 05/11/20 19:17 Multivitamins (Multivitamins) 1 tab DAILY ORAL 04/26/20 09:00 05/26/20 08:59 05/08/20 08:19 Ondansetron HCl (Zofran) 4 mg Q6H PRN IVP Nausea & Vomiting 04/19/20 13:30 05/19/20 13:29 04/29/20 18:17 Polyethylene Glycol (Miralax) 17 gm DAILY ORAL 04/20/20 09:00 05/20/20 08:59 05/08/20 08:18 Assessment/Plan Assessment/Plan 1. COVID-19 infection - COVID-19 PCR 04/21 positive: now off isolation - no indication for steroid or remdesivir given her normoxemia - s/p cefepime - CXR with diffuse non-specific inflammatory/infectious process - cont supplemental oxygen as needed; currently saturating well on 2L NC - CT A/P/C - no obvious pna or abscess, cultures negative 2. Immunocompromised state with history of non-Hodgkin lymphoma. - h/o port line infection; s/p Vanco - to return to [facility] for further Tx 3. Fever; resolved - urine culture showed zee albicans - blood culture showed no growth 4. Hx of Hypertension. 5. Hx of gout. 6. Anemia - s/p pRBC 7. DVT ppx - on SCD 8. Low TSH; improving - Dr. Fermin following - no need for levothyroxine per Dr. Fermin 9. Zee UTI - Urine Cx showed zee albicans - On fluconazole 200mg daily for 5 days (05/04 - ) per ID 10. Hypokalemia - potassium replaced per neprho 11. Hypomagnesemia - Mg replaced per nephro 12. L hip fx; likely chronic - per ortho; consideration for outpatient management noted We will follow carefully as nodulizer dc planning back to SNF noted; pending placement Medically stable for discharge from pulmonary stand point The care for this patient was discussed with my supervising physician Time spent for this case was approximately 31 minutes Joaquín Simons May 09, 2020 08:47
[2020-05-09] MEDS: Dronabinol 2.5mg Cap ORAL SCH ×2 (08:48→17:55)
[2020-05-09] MEDS: Magnesium Oxide 400mg tab ORAL SCH ×3 (08:48→17:55)
[2020-05-09] MEDS: Ascorbic Acid 500mg tab ORAL SCH (08:48)
[2020-05-09] MEDS: Lactulose 20gm/30ml UDC ORAL SCH ×4 (08:48→18:00)
[2020-05-09] MEDS: Fluconazole 100mg tab ORAL SCH (08:48)
[2020-05-09] MEDS: Miralax 17gm pkt ORAL SCH ×2 (08:49→08:59)
[2020-05-09] MEDS: Docusate 100mg cap ORAL SCH ×2 (08:49→18:00)
--- NOTE | 2020-05-09 11:01 | NUR ---
*-*DISCHARGE PLANNING*-* PATIENT HAS BEEN REFERRED TO: [facility] P: [phone] S/W GELACIO, NOT ACCEPTING ANY ADMISSIONS DUE TO COVID. [facility] P: [phone] S/W ILIA, WILL CALL BACK AFTER REVIEW. [facility] P: [phone] S/W KIT, CLOSED FOR ADMISSION DUE TO COVID. [facility] P: [phone] S/W GANESH, NOT ACCEPTING ANY NEW ADMISSIONS , DUE TO COVID OUTBREAK. [facility] P: [phone] S/W MARCO, NOT ACCEPTING ANY ADMISSIONS DUE TO COVID [facility] P: [phone] S/W KAYE, NOT ACCEPTING COVID POSITIVE PATIENTS. [facility] P: [phone] S/W STEPHANI, FOLLOW UP ON FRIDAY WHEN ADMISSIONS ARE AVAILABLE. [facility] P: [phone] S/W RAHUL, WILL UP AFTER REVIEW. [facility] P: [phone] S/W ANNAMARIA, NOT ACCEPTING ANY ADMISSIONS AT THE MOMENT, DUE TO COVID [facility] P: [phone] S/W FAWAD, NOT ACCEPTING ANY ADMISSIONS, DUE TO COVID.
--- NOTE | 2020-05-09 11:27 | Cardiac Electrophysiology PN ---
Assessment/Plan Assessment/Plan 1. Sinus tachycardia due to sepsis, anemia and COVID. Can not use beta-domenico as blood pressure is 100/70. 2. COVID pneumonia. Now off isolation 3. Hypokalemia. 4. Hypomagnesemia. 5. History of non-Hodgkin lymphoma. 6. Leukopenia and anemia. FU Dr. Valencia S/P PRBC 7. Fever. 8. Low Mg replaced 9. Left Hip Fx; Likely Chronic > Patient states she fell 5 months ago. Also had hard fall on coccyx in 2018. Minimal pain in left hip Per Dr. Payan. Given patient bed bound risks > benefits. LUKE RN DC to SNIF pending Subjective Subjective No events. Covid isolation DCed. On 2 liter NC. Awaiting SNIF placement Venous Duplex no DVT Objective Last 24 Hour Vital Signs Date Time Temp Pulse Resp B/P (MAP) Pulse Ox O2 Delivery O2 Flow Rate FiO2 05/09/20 09:19 97.8 05/09/20 09:00 Nasal Cannula 2.0 05/09/20 08:00 97.8 94 20 126/53 (77) 94 05/09/20 04:00 97.8 105 20 104/64 (77) 96 05/09/20 00:00 97.4 106 20 98/59 (72) 98 05/08/20 21:00 Nasal Cannula 2.0 05/08/20 20:00 97.8 102 20 101/68 (79) 99 05/08/20 16:00 98.1 80 20 106/70 (82) 97 05/08/20 12:00 96.8 70 17 104/80 (88) 97 Intake and Output 05/08/20 05/09/20 19:00 07:00 Intake Total 140 ml 180 ml Output Total 900 ml Balance 140 ml -720 ml Intake Oral 140 ml 180 ml Output Urine Total 900 ml Laboratory Tests Test 05/09/20 06:08 White Blood Count 3.8 K/UL (4.8-10.8) L Red Blood Count 3.07 M/UL (4.20-5.40) L Hemoglobin 8.5 G/DL (12.0-16.0) L Hematocrit 27.4 % (37.0-47.0) L Mean Corpuscular Volume 89 FL (80-99) Mean Corpuscular Hemoglobin 27.7 PG (27.0-31.0) Mean Corpuscular Hemoglobin Concent 30.9 G/DL (32.0-36.0) L Red Cell Distribution Width 20.8 % (11.6-14.8) H Platelet Count 312 K/UL (150-450) Mean Platelet Volume 6.0 FL (6.5-10.1) L Neutrophils (%) (Auto) 64.3 % (45.0-75.0) Lymphocytes (%) (Auto) 14.7 % (20.0-45.0) L Monocytes (%) (Auto) 10.7 % (1.0-10.0) H Eosinophils (%) (Auto) 7.9 % (0.0-3.0) H Basophils (%) (Auto) 2.4 % (0.0-2.0) H Sodium Level 140 MMOL/L (136-145) Potassium Level 3.7 MMOL/L (3.5-5.1) Chloride Level 103 MMOL/L (98-107) Carbon Dioxide Level 32 MMOL/L (21-32) Anion Gap 5 mmol/L (5-15) Blood Urea Nitrogen 9 mg/dL (7-18) Creatinine 0.6 MG/DL (0.55-1.30) Estimat Glomerular Filtration Rate > 60 mL/min (>60) Glucose Level 88 MG/DL (74-106) Calcium Level 9.6 MG/DL (8.5-10.1) Magnesium Level 1.8 MG/DL (1.8-2.4) Objective HEAD AND NECK: No JVD. LUNGS: Coarse rhonchi. CARDIOVASCULAR: Regular S1 and S2 with no gallop or murmur. ABDOMEN: Soft. EXTREMITIES: No pitting edema. Ehsan Wan MD May 09, 2020 11:27
[2020-05-09 12:00] VITALS: BP 109/67
--- NOTE | 2020-05-09 13:33 | NUR ---
CASE MANAGEMENT:REVIEW SI;ACUTE POSTHEMORRHAGIC ANEMIA. HIP FRACTURE. 97.8 106 20 98/59 94% 2L NC H/H 8.5/27.4 IS;NORCO PO Q6 PRN MARINOL PO BID MAG-OX PO TID VIT C PO QD HEPARIN SQ Q8 LACTULOSE PO TID ALLOPURINOL PO QD MED SURG STATUS DCP;SNF PLACEMENT DC PLANNING ACTIVELY COMPLETING 10 CALL LIST PER DAY
--- NOTE | 2020-05-09 14:10 | Nephrology Progress Note ---
Assessment/Plan Plan #acute kidney injury likely due to vanco toxicity #hypokalemia- #hypomagnesemia #Acute on chronic anemia #h/p non- hodgkins lymphoma #possible sepsis #+ COVID #Femoral intertrochanteric hip fracture. - replete k and mag - Pulmonary eval - prbc transfusion prn - replete lytes - hemo-onc eval - ID eval - monitor CBC - avoid nephrotoxins - ortho eval - spine eval for L3 acute on chronic bone infarct, less likely neoplasm or infection? times spent 65 min Subjective ROS Limited/Unobtainable: Yes Constitutional: Reports: weakness HEENT: Denies: no symptoms, eye pain, blurred vision, tearing, double vision, ear pain, ear discharge, nose pain, nose congestion, throat pain, throat swelling, mouth pain, mouth swelling, other Genitourinary: Denies: no symptoms, burning, discharge, frequency, flank pain, hematuria, incontinence, pain, urgency, other Neurologic/Psychiatric: Denies: no symptoms, anxiety, depressed, emotional problems, headache, numbness, paresthesia, pre-existing deficit, seizure, tingling, tremors, weakness, other Subjective Cr better today mag and K low repleted hip fracture noted ortho consulted Impression: Minimal distention of the rectum with feces, could represent mild rectal fecal impaction. Equivocal slight thickening of the rectal wall and stranding of the perirectal fat, if real could indicate mild stercoral proctitis Comminuted fracture of the left femoral head, neck, and intertrochanteric region, ununited. Possibly acute, but abundant soft tissues surrounding the fracture area raises possibility that this could be chronic. Correlate with clinical findings Other findings as noted, including evidence of old T12 vertebral body compression fracture and prior vertebral augmentation procedure, Morales catheter, subcentimeter low-attenuation lesions which probably represent renal cysts, small sliding-type hiatal hernia Impression: Unusual signal abnormality of the posterolateral aspect of the L3 vertebral body on the right. This appears to be confined to the vertebral body marrow space. Prior CT scan in retrospect demonstrates sclerotic areas in the same location. Most likely differential consideration is an atypical hemangioma. Other possibilities include acute on chronic bone infarct, less likely neoplasm or infection No other unusual contrast enhancement. No findings to suggest discitis or epidural abscess. Objective Objective Last 24 Hour Vital Signs Date Time Temp Pulse Resp B/P (MAP) Pulse Ox O2 Delivery O2 Flow Rate FiO2 05/09/20 12:00 97.6 104 20 109/67 (81) 97 05/09/20 09:19 97.8 05/09/20 09:00 Nasal Cannula 2.0 05/09/20 08:00 97.8 94 20 126/53 (77) 94 05/09/20 04:00 97.8 105 20 104/64 (77) 96 05/09/20 00:00 97.4 106 20 98/59 (72) 98 05/08/20 21:00 Nasal Cannula 2.0 05/08/20 20:00 97.8 102 20 101/68 (79) 99 05/08/20 16:00 98.1 80 20 106/70 (82) 97 Intake and Output 05/08/20 05/09/20 19:00 07:00 Intake Total 140 ml 180 ml Output Total 900 ml Balance 140 ml -720 ml Intake Oral 140 ml 180 ml Output Urine Total 900 ml Laboratory Tests 05/09/20 06:08: White Blood Count 3.8L, Red Blood Count 3.07L, Hemoglobin 8.5L, Hematocrit 27.4L , Mean Corpuscular Volume 89, Mean Corpuscular Hemoglobin 27.7, Mean Corpuscular Hemoglobin Concent 30.9L, Red Cell Distribution Width 20.8H, Platelet Count 312, Mean Platelet Volume 6.0L, Neutrophils (%) (Auto) 64.3, Lymphocytes (%) (Auto) 14.7L, Monocytes (%) (Auto) 10.7H, Eosinophils (%) (Auto) 7.9H, Basophils (%) (Auto) 2.4H, Sodium Level 140, Potassium Level 3.7, Chloride Level 103, Carbon Dioxide Level 32, Anion Gap 5, Blood Urea Nitrogen 9, Creatinine 0.6, Estimat Glomerular Filtration Rate > 60, Glucose Level 88, Calcium Level 9.6, Magnesium Level 1.8 Height (Feet): 5 Height (Inches): 7.00 Weight (Pounds): 150 Objective General Appearance: no apparent distress EENT: PERRL/EOMI Neck: non-tender, normal alignment Cardiovascular: normal peripheral pulses, normal rate Respiratory/Chest: chest wall non-tender, lungs clear Abdomen: normal bowel sounds, non tender Neurologic: alert, oriented x 3 Pirouz,Aslan M.D. May 09, 2020 14:10
[2020-05-09 16:00] VITALS: BP 108/66
--- NOTE | 2020-05-09 18:01 | General Progress Note ---
Subjective Date patient seen: May 09, 2020 ROS Limited/Unobtainable: No Allergies: Coded Allergies: No Known Allergies (Unverified , 04/11/20) Subjective No acute events overnight per nursing. Feels well. Pain is not well controlled, patient finds timing of pain meds is too slow. Pending placement. Review of systems: Constitutional: Denies: chills, diaphoresis, malaise, weakness, HEENT: Denies: eye pain, blurred vision, double vision, ear pain, nose pain, throat pain, Cardiovascular: Denies: chest pain, edema, lightheadedness, palpitations Respiratory: No sob, cough, milton Gastrointestinal/Abdominal: Denies: abdominal pain, black stools, blood in stool, constipation, diarrhea, nausea, poor fluid intake vomiting, other Genitourinary: Denies: burning, discharge, frequency, Neurologic/Psychiatric: Denies: headache, numbness, paresthesia, new weakness, other Endocrine: Denies: excessive sweating, flushing, intolerance to cold, MSK: denies joint pains, swelling, stiffness +back pain (improving) Hematologic/Lymphatic: Denies: anemia, easy bleeding, easy bruising, Objective Last 24 Hour Vital Signs Date Time Temp Pulse Resp B/P (MAP) Pulse Ox O2 Delivery O2 Flow Rate FiO2 05/09/20 16:00 97.8 92 20 108/66 (80) 97 05/09/20 14:55 97.6 05/09/20 12:00 97.6 104 20 109/67 (81) 97 05/09/20 09:19 97.8 05/09/20 09:00 Nasal Cannula 2.0 05/09/20 08:33 97 Nasal Cannula 2.0 28 05/09/20 08:00 97.8 94 20 126/53 (77) 94 05/09/20 04:00 97.8 105 20 104/64 (77) 96 05/09/20 00:00 97.4 106 20 98/59 (72) 98 05/08/20 21:00 Nasal Cannula 2.0 05/08/20 20:00 97.8 102 20 101/68 (79) 99 Intake and Output 05/08/20 05/09/20 19:00 07:00 Intake Total 140 ml 180 ml Output Total 900 ml Balance 140 ml -720 ml Intake Oral 140 ml 180 ml Output Urine Total 900 ml Laboratory Tests 05/09/20 06:08: White Blood Count 3.8L, Red Blood Count 3.07L, Hemoglobin 8.5L, Hematocrit 27.4L , Mean Corpuscular Volume 89, Mean Corpuscular Hemoglobin 27.7, Mean Corpuscular Hemoglobin Concent 30.9L, Red Cell Distribution Width 20.8H, Platelet Count 312, Mean Platelet Volume 6.0L, Neutrophils (%) (Auto) 64.3, Lymphocytes (%) (Auto) 14.7L, Monocytes (%) (Auto) 10.7H, Eosinophils (%) (Auto) 7.9H, Basophils (%) (Auto) 2.4H, Sodium Level 140, Potassium Level 3.7, Chloride Level 103, Carbon Dioxide Level 32, Anion Gap 5, Blood Urea Nitrogen 9, Creatinine 0.6, Estimat Glomerular Filtration Rate > 60, Glucose Level 88, Calcium Level 9.6, Magnesium Level 1.8 Height (Feet): 5 Height (Inches): 7.00 Weight (Pounds): 150 Objective General: WDWN female in NAD, A&O x 4, pleasant, conversant HEENT: Normocephalic cephalic atraumatic, pupils equal round reactive to light and accommodation, nares patent and no symmetrical, no tonsillar exudates, mucous membranes slighly dry CV: Regular rate regular rhythm, no murmurs, rubs, or gallops Pulm: Lungs clear to auscultation bilaterally. No wheezes, rhonchi, or rales GI: Soft, nontender, nondistended, bowel sounds present + eaton in place, no suprapubic TTP Neuro: CN 2-12 intact bilaterally, no focal signs. Moving all extremities Ext: No lower extremity edema bilaterally Skin: no rashes lesions or ulcers Msk: Joints symmetrical in upper extremity and lower extremity bilaterally, no joint swelling. Lymph: No lymphadenopathy in upper extremity and lower extremity Assessment/Plan Status: stable Assessment/Plan: #Left Hip Fx; Likely Chronic > Patient states she fell 5 months ago but no recent falls. Also had hard fall on coccyx in 2018. Minimal pain in left hip > Patient states she has not walked for months but is not paraplegic. Severe debilitation. - appreciate ortho eval: Dr. Payan. Given patient bed bound risks > benefits. Outpatient consideration. Patient asking ?timeline of surgery. Ortho aware. - NWB LLE -Per Ortho, no immediate surgical indication, but will need OP f/u -Confirm weight bearing recs for PT -Patient would like plan confirmed for surgery prior to d/c given she is feeling very debilitated- F/U with ortho -d/w Cardiology. Not a candidate for surgery right now. Outpatient follow up. -Pending placement vs Home w/ HH #Lesia UTI - FLuconazole 200mg daily for 5 days (05/04 - ) - Abx per ID - monitor QTC #hypomagnesemia - improved. Likely from recovering JIM. - replete PRN #LE edema/pain - venous duplex to rule out DVT: negative - SCDs #Sepsis 2/2 PORT infection, S/P Port Removal -Resolved #COVID 19 pneumonia (febrile, tachycardic)-Currently saturating well on 2L NC -Appreciate ID -S/p Vanco and Cefepime Tx-Cultures noted -Continue NC Support -If she goes home, may need home 02; consider ABG but await PT eval #Lymphoma-was receiving Chemo--> Known mets to spine ( see MRI ) #Pancytopenia including Blood Transfusion Requiring Anemia --> S/P PRBC transfusions and Neupogen, likely related to chemo/marrow suppression #L3 Lesion on MRI -Appreciate Oncology -Appreciate Radiation Oncology -Resume chemo as outpatient #Hypothyroidism, suspect central given TSH and T4 both low -Appreciate Endocrine Recs -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 COVID vs. cancer related? - appears to have resolved - CTM Fever curve. Could be due to underlying malignancy - Repeat Blood cultures NGTD - Repeat UA: negative - Repeat CXR: Bronchial thickening - Check CT C/A/P including CT angio to eval for PE. : reviewed. No PE. No obvious infection. Incidental left hip fracture - IV fluids as needed - D/W ID. - Port has been removed at OSH - , - ngtd - Cefepime (04/14 - 04/15) - Per patient she is to continue on Vancomycin till 04/25 - D/c vanc - ID Consult, appreciate recs - MRI C/T/L spine w/wo contrast to eval for abscess: No sign of infection, abscess or osteo #JIM, pre-renal vs. due to vanc toxicity - resolved > Vanc level 35 - urine lytes - Nephrology on board: D/w Dr. hatch - Fluids per nephro #Hx of Lymphoma #leukopenia improving > S/p mets to spine s/p surgery earlier this year and XRT/Chemo > Last chemo in February 2020 - All information per patient - Oncology following, appreciate recs - Can continue current therapy with outpatient onc - No acute interventions needed inpatient - Neupogen x 1 04/21 #Acute blood loss anemia - resolving #anemia of chronic disease #Normocytic anemia Patient presented with Hb 6.7 with normal MCV. History of lymphoma per patient and is receiving chemo tx, last known to be February 2020. - 2U PRBCs ordered and transfused on admission - Hb Stable - Rectic count wnl, Iron and Iron sat low, Ferritin wnl - No active signs of bleeding - Hematology consulted, appreciate recs - CTM for signs of bleeding - Patient will need colonoscopy as outpatient in the future : Gi Consulted; Dr. Carter #sinus tachycardia, due to COVID pna - monitor EKG - Cardiology consulted: Dr. Wna #proctitis #Constipation- > improving - Aggressive bowel regimen - GI aware: Appreciate recommendations - Colace, miralax, - s/p enema and ducolax with improvement #chronic urinary retention - since patient had spine surgery earlier in the year - unsure if has true urinary retention - d/w nephrology -> voiding trial, however patient refused. #Hypokalemia #hypomagnesia - Lytes replaced - appreciate nephro management FENPPX DVTPPX: SCDs. Patient refusing DVT ppx shots (risks of of refusal including life threatening blood clot and PE explained to patient but still wishes to refuse) Fluids: per nephro Diet: regular Lines: PIV PT/OT: pending Code status:Full Dispo: back to SNF Reason for Continued Hospitalization: hypoxia, fever Dispo - Discharge back to SNF once available. MIPS ([employer]-based Incentive Payment System) Applicable CPT: 50482, 16483 CHECK ALL THAT ARE MET: [] Measure #5 (CHF): All ages. Prescribe LINDSAY/ARB upon discharge for patients with left ventricular systolic dysfunction. If not, the reason is clearly documented in the medical chart [] Measure #8 (CHF): All ages. Prescribe a beta domenico upon discharge for patients with left ventricular systolic dysfunction. If not, the reason is clearly documented in the medical chart. [x] Measure #47: Advance care plan or surrogate decision maker documented in the medical record. [x] Measure #130 The provider has documented, updated, or reviewed the patients current medication list and has documented it in the patients note. [] Measure #374 (All): Send report to referring provider. [] Measure #407(Sepsis due to MSSA bacteremia): Age 18+ Patient treated with a beta-lactam antibiotic (Nafcillin, Oxacillin or Cefazolin) as definitive therap y. MEDICAL COMPLEXITYHigh complexity medical decision making (need 2/3 categories)Problem - need 4 points [x]Acute/new problem with new plan for workup (4 points, 1 max) [] Acute/new problem without additional workup (3 points, 1 max) [] Unstable chronic problem actively being managed (2 point each, 2 max) [x] Stable chronic problem actively being managed (1 point each, 2 max) [x] Self-limited/transient process (constipation, muscle ache, etc) (1 point each, 2 max) Data - need 4 points [x] Reviewed labs/imaging studies (1 points, 2 max) [x] Independent review of imaging (EKG, xrays, etc) (2 points, 2 max) [x] Discussed case with consult/other MD/RN (2 points, 2 max) High Risk - qualify if have one of the following: [x] Severe exacerbation of acute problem, acute mental status change, IV narcotics, monitoring drug levels (vancomycin, INR, tacrolimus etc) I spent 37 minutes on this patient's case, and 23 mins was dedicated to counseling and/or care coordination. Discussed with showcase maker, nephrology,cardiology, RN at bedside. Time of note may not reflect time of encounter Albin Barker M.D. May 09, 2020 18:01
--- NOTE | 2020-05-09 19:20 | NUR ---
NURSE NOTES: RECEIVED PATIENT FROM REA LAST. PATIENT IS AWAKE, CALM, RESTING IN BED, AAOX4, ON NC 2L, NO ACUTE DISTRESS NOTED. OVALLE CATH INTACT, DRAINING WELL, OVALLE ANCHOR IN PLACE. WOUND DRESSING IN PLACE. PIV INTACT AND PATENT. BED IS LOCKED AND LOW, BED ALARMS ACTIVE, SIDE RAILS UPX2 AND CALL LIGHT IS WITHIN REACH. WILL CONTINUE TO MONITOR.
--- NOTE | 2020-05-09 19:28 | NUR ---
NURSE HAND-OFF: Important Events on Shift:[Pain management, wound care] Patient Status: [stable] Diet: [reg] Pending Orders: [] Pending Results/Labs:[] Pending MD notification:[] Latest Vital Signs: Temperature 97.8 , Pulse 92 , B/P 108 /66 , Respiratory Rate 20 , O2 SAT 97 , Nasal Cannula, O2 Flow Rate 2.0 . Vital Sign Comment: [stable] Latest [place] Fall Score: 55 Fall Risk: High Risk Safety Measures: Call light Within Reach, Bed Alarm Zone 1, Side Rails Side Rails x3, Bed position Low and Locked. Fall Precautions: Door Sign Patient Fall Education Report given to [Cary,RN].
[2020-05-09 20:00] VITALS: BP 102/67
[2020-05-09] MEDS: Dyna-Hex 2% Top Sol 2oz TOPIC SCH (20:00)
--- NOTE | 2020-05-09 21:45 | Neurology Progress Note ---
Interim History Interim History ROS Limited/Unobtainable: No Interim History pending placement Objective Physical Exam Last Vital Signs Date Time Temp Pulse Resp B/P (MAP) Pulse Ox O2 Delivery O2 Flow Rate FiO2 05/09/20 19:52 97 Nasal Cannula 2.0 28 05/09/20 18:33 97.8 05/09/20 16:00 92 20 108/66 (80) Laboratory Tests Test 05/09/20 06:08 White Blood Count 3.8 K/UL (4.8-10.8) L Red Blood Count 3.07 M/UL (4.20-5.40) L Hemoglobin 8.5 G/DL (12.0-16.0) L Hematocrit 27.4 % (37.0-47.0) L Mean Corpuscular Volume 89 FL (80-99) Mean Corpuscular Hemoglobin 27.7 PG (27.0-31.0) Mean Corpuscular Hemoglobin Concent 30.9 G/DL (32.0-36.0) L Red Cell Distribution Width 20.8 % (11.6-14.8) H Platelet Count 312 K/UL (150-450) Mean Platelet Volume 6.0 FL (6.5-10.1) L Neutrophils (%) (Auto) 64.3 % (45.0-75.0) Lymphocytes (%) (Auto) 14.7 % (20.0-45.0) L Monocytes (%) (Auto) 10.7 % (1.0-10.0) H Eosinophils (%) (Auto) 7.9 % (0.0-3.0) H Basophils (%) (Auto) 2.4 % (0.0-2.0) H Sodium Level 140 MMOL/L (136-145) Potassium Level 3.7 MMOL/L (3.5-5.1) Chloride Level 103 MMOL/L (98-107) Carbon Dioxide Level 32 MMOL/L (21-32) Anion Gap 5 mmol/L (5-15) Blood Urea Nitrogen 9 mg/dL (7-18) Creatinine 0.6 MG/DL (0.55-1.30) Estimat Glomerular Filtration Rate > 60 mL/min (>60) Glucose Level 88 MG/DL (74-106) Calcium Level 9.6 MG/DL (8.5-10.1) Magnesium Level 1.8 MG/DL (1.8-2.4) Impression/Recommendations Problems: (1) Anemia Status: stable Diagnostic Impression Chronic weakness, LE worse than UEs MRI spine noted, osteoma wo spine compression slplaminectomy COVID 19 pneumonia (febrile, tachycardic) Hx of Lymphoma cont medical support pain control PT as able Renny Bajwa MD May 09, 2020 21:45
[2020-05-10] VITALS: BP 100/67
--- NOTE | 2020-05-10 02:13 | Cardiology Report ---
APPROVED REPORT EKG Measurement Heart [id number] <Conclusion> Sinus tachycardia Otherwise normal ECG
--- NOTE | 2020-05-10 02:20 | Cardiology Report ---
APPROVED REPORT EXAM: Two-dimensional and M-mode echocardiogram with Doppler and color Doppler. INDICATION SOB M-Mode DIMENSIONS IVSd0.9 (0.7-1.1cm)Left Atrium (MM)4.0 (1.6-4.0cm) LVDd4.6 (3.5-5.6cm)Aortic Root2.7 (2.0-3.7cm) PWd0.9 (0.7-1.1cm)Aortic Cusp Exc.1.9 (1.5-2.0cm) IVSs1.4 cmEPSS1.0 (>1.0cm) LVDs3.1 (2.5-4.0cm) PWs1.6 cm <Conclusion> Normal left ventricular chamber size, systolic function and wall motion. Left ventricular ejection fraction estimated to be 60-65 %. No evidence of left ventricular hypertrophy. No evidence of pericardial effusion. Mild left atrial enlargement. Right cardiac chamber sizes are within normal limits. Focal aortic valve sclerosis with adequate cusp excursion. Thickened mitral valve leaflets with normal excursion. Mitral annulus and aortic root calcification. Normal pulmonic valve structure. Normal tricuspid valve structure. IVC at normal size and collapsing with respiration. A color flow and spectral Doppler study was performed and revealed: Mild to moderate aortic regurgitation. Mild mitral regurgitation. Mitral diastolic velocities suggest reduced left ventricular relaxation c/w mild diastolic dysfunction (Grade I). Trace to mild tricuspid regurgitation. Tricuspid systolic velocities suggests peak right ventricular systolic pressure of 14 mmHg. Mild to moderate pulmonic regurgitation present.
--- NOTE | 2020-05-10 02:24 | Cardiology Report ---
APPROVED REPORT EKG Measurement Heart [id number] <Conclusion> Sinus tachycardia Cannot rule out Anterior infarct, age undetermined Abnormal ECG
[2020-05-10] MEDS: HYDROcodone/Acetamin 10/325 tab ORAL PRN ×4 (03:11→21:35)
[2020-05-10 04:00] VITALS: BP 121/59
[2020-05-10] MEDS: Heparin 5000 units/ml inj SUBQ SCH ×3 (06:00→21:28)
--- NOTE | 2020-05-10 06:34 | Hematology/Onc Progress Note ---
Assessment/Plan Assessment/Plan # Leukopenia COVID19++++++++++ --> hep and hiv order as needed --> wbc 4-->3-->2.9->2->4.6--4.1-->3.6-->4.7-->3.6->4.1-->4.7-->3.8 --> Neupogen 300 x1 04/21 --> isolation if anc<500 # Non-Hodgkins Lymphoma is s/p chemotherapy in the past --> to return to [facility] for further treatment --> likely for ct/pet as outpatient --> CT Here shows no e/o disease --> imaging has been reviewed thus far --> end date of 04/2020 # Anemia likely of chronic disease -- does not appear to have iron deficiency --> transfuse as needed, tibc and ferritin are cw acd --> hgb 7.8-->8.6-->8.5-->8.4->7.6-->10-->9.9->9.6-->8.7 --> no hemolysis is noted --> s/p transfusion on admission # Covid 19++ with SIRS (febrile, tachycardic) --> per pulm and id --> CXR with diffuse non-specific inflammatory/infectious process --> s/p Cefepime (04/14 - 04/15) # Hypokalemia # Hypomagnesia # Chronic Back pain # Full Code # Dvt ppx heparin sq Appreciate consultation and reagan Rn Subjective HEENT: Denies: no symptoms, eye pain, blurred vision, tearing, double vision, ear pain, ear discharge, nose pain, nose congestion, throat pain, throat swelling, mouth pain, mouth swelling, other Cardiovascular: Denies: no symptoms, chest pain, edema, irregular heart rate, lightheadedness, palpitations, syncope, other Respiratory: Denies: no symptoms, cough, shortness of breath, SOB with excertion, SOB at rest, sputum, wheezing, other Gastrointestinal/Abdominal: Denies: no symptoms, abdomen distended, abdominal p ain, black stools, tarry stools, blood in stool, constipated, diarrhea, difficulty swallowing, nausea, poor appetite, poor fluid intake, rectal bleeding, vomiting, other Genitourinary: Denies: no symptoms, burning, discharge, frequency, flank pain, hematuria, incontinence, pain, urgency, other Neurologic/Psychiatric: Denies: no symptoms, anxiety, depressed, emotional problems, headache, numbness, paresthesia, pre-existing deficit, seizure, tingling, tremors, weakness, other Endocrine: Denies: no symptoms, excessive sweating, flushing, intolerance to cold, intolerance to heat, increased hunger, increased thirst, increased urine, unexplained weight gain, unexplained weight loss, other Hematologic/Lymphatic: Denies: no symptoms, anemia, easy bleeding, easy bruising, adenopathy, other Allergies: Coded Allergies: No Known Allergies (Unverified , 04/11/20) Subjective 04/17 is on room air, more comfortable, potential dc to snf 04/18 labs reviewed, no bleeding, meds noted, no night sweats 04/19 sleeping comfortably, no major events, no night sweats 04/20 meds noted, labs reviewed, wbc 2.9, hep and hiv is neg 04/21 labs reviewed, in am, the wbc was 2, to get neupogen x 1 dose now 04/23 labs noted, no bleeding, wbc 4, hgb remains low, but holding off trans 04/24 labs are pending for am, meds reviewed, no bleeding 04/25 meds reviewed, labs noted, no night sweats, reagan rn at bedside, no new events 04/26 labs reviewed, meds noted, no bleeding, wbc 3, hgb 7.6 04/27 reagan rn at bedside, labs are noted, no bleeding, refusing heparin now sq 04/28 labs have been reviewed, is on room air, no bleeding, tachy 04/30 labs pending, no night sweats, meds reviewed, tachy, no night sweats, wants iv iron 05/01 dc planning, meds noted, for labs this am, no new events 05/02 meds reviewed, has been refusing care, continue heparin sq 05/03 labs reviewed, on 2lnc, no bleeding, remains on hep but refusing 05/04 meds ntoed, labs reviewed, no new changes, reagan RN 05/05 meds noted, no bleeding, labs reviewed, no f/c 05/06: no acute events reported, no resp distress 05/07: no resp distress, vss on RA dc planning continues 05/08 on norco prn, nc, eaton, labs are noted 05/09 meds reviewed, labs pending, on nc, eaton 05/10 nc with eaton, no night sweats, meds have been reviewed Objective Objective Current Medications Medications (Trade) Dose Ordered Sig/Angelika Route PRN Reason Start Time Stop Time Status Last Admin Dose Admin Acetaminophen (Tylenol) 650 mg Q6H PRN ORAL Mild Pain (Pain Scale 1-3) 04/12/20 02:45 05/12/20 02:44 05/09/20 18:03 Acetaminophen (Tylenol) 650 mg Q6H PRN ORAL FEVER 04/12/20 16:30 05/12/20 16:29 04/27/20 00:38 Acetaminophen/ Hydrocodone Bitart ([place] 10/325) 1 tab Q6H PRN ORAL severe pain 05/04/20 22:17 05/11/20 22:16 05/10/20 03:11 Acetaminophen/ Hydrocodone Bitart ([place] 5/325) 1 tab Q6H PRN ORAL moderate pain 05/04/20 18:30 05/11/20 18:29 05/07/20 08:38 Allopurinol (allopurinoL) 300 mg DAILY ORAL 04/12/20 09:00 05/12/20 08:59 05/09/20 08:48 Ascorbic Acid (Vitamin C) 500 mg DAILY ORAL 04/26/20 09:00 05/26/20 08:59 05/09/20 08:48 Baclofen (Lioresal) 10 mg THREE TIMES A DAY ORAL 04/12/20 09:00 05/12/20 08:59 05/04/20 09:31 Chlorhexidine Gluconate (Christy-Hex 2%) 1 applic Q24H TOPIC 04/25/20 20:00 07/24/20 19:59 04/30/20 20:46 Docusate Sodium (Colace) 100 mg TWICE A DAY ORAL 04/27/20 09:00 05/20/20 08:59 05/09/20 08:49 Dronabinol (Marinol) 5 mg BID ORAL 05/01/20 09:00 07/30/20 08:59 05/09/20 17:55 Heparin Sodium (Porcine) (Heparin 5000 units/ml) 5,000 units EVERY 8 HOURS SUBQ 04/24/20 22:00 06/08/20 21:59 05/05/20 05:38 Lactulose (Cephulac) 20 gm THREE TIMES A DAY ORAL 04/21/20 13:00 05/21/20 12:59 05/08/20 08:18 Linaclotide (Linzess) 290 mcg BEFORE BREAKFAST ORAL 04/26/20 06:30 07/25/20 06:29 05/10/20 06:20 Magnesium Oxide (Mag-Ox 400mg) 400 mg THREE TIMES A DAY ORAL 04/30/20 13:00 05/30/20 12:59 05/09/20 17:55 Morphine Sulfate (Morphine Sulfate) 2 mg Q3H PRN IVP Severe Pain (Pain Scale 7-10) 05/04/20 19:17 05/11/20 19:16 05/08/20 09:44 Morphine Sulfate (Morphine Sulfate) 4 mg Q3H PRN IVP SEVERE BREAKTHRU PAIN 05/04/20 19:18 05/11/20 19:17 Multivitamins (Multivitamins) 1 tab DAILY ORAL 04/26/20 09:00 05/26/20 08:59 05/09/20 08:48 Ondansetron HCl (Zofran) 4 mg Q6H PRN IVP Nausea & Vomiting 04/19/20 13:30 05/19/20 13:29 04/29/20 18:17 Polyethylene Glycol (Miralax) 17 gm DAILY ORAL 04/20/20 09:00 05/20/20 08:59 05/08/20 08:18 Last 24 Hour Vital Signs Date Time Temp Pulse Resp B/P (MAP) Pulse Ox O2 Delivery O2 Flow Rate FiO2 05/10/20 04:00 98.1 88 18 121/59 (79) 95 05/10/20 00:00 98.4 91 18 100/67 (78) 94 05/09/20 21:00 Nasal Cannula 2.0 05/09/20 20:00 98.6 88 18 102/67 (79) 94 05/09/20 19:52 97 Nasal Cannula 2.0 28 05/09/20 18:33 97.8 05/09/20 16:00 97.8 92 20 108/66 (80) 97 05/09/20 14:55 97.6 05/09/20 12:00 97.6 104 20 109/67 (81) 97 05/09/20 09:19 97.8 05/09/20 09:00 Nasal Cannula 2.0 05/09/20 08:33 97 Nasal Cannula 2.0 28 05/09/20 08:00 97.8 94 20 126/53 (77) 94 05/09/20 04:00 97.8 105 20 104/64 (77) 96 05/09/20 00:00 97.4 106 20 98/59 (72) 98 05/08/20 21:00 Nasal Cannula 2.0 05/08/20 20:00 97.8 102 20 101/68 (79) 99 05/08/20 16:00 98.1 80 20 106/70 (82) 97 05/08/20 12:00 96.8 70 17 104/80 (88) 97 05/08/20 09:00 Nasal Cannula 2.0 05/08/20 08:00 98.1 86 18 103/70 (81) 97 Intake and Output 05/09/20 05/10/20 19:00 07:00 Intake Total 600 ml Output Total 400 ml 1600 ml Balance 200 ml -1600 ml Intake Oral 600 ml Output Urine Total 400 ml 1600 ml # Voids 1 1 # Bowel Movements 1 Labs Test 05/07/20 12:10 05/08/20 09:35 05/09/20 06:08 White Blood Count 4.7 K/UL (4.8-10.8) 3.8 K/UL (4.8-10.8) Red Blood Count 3.02 M/UL (4.20-5.40) 3.07 M/UL (4.20-5.40) Hemoglobin 8.2 G/DL (12.0-16.0) 8.5 G/DL (12.0-16.0) Hematocrit 26.9 % (37.0-47.0) 27.4 % (37.0-47.0) Mean Corpuscular Volume 89 FL (80-99) 89 FL (80-99) Mean Corpuscular Hemoglobin 27.4 PG (27.0-31.0) 27.7 PG (27.0-31.0) Mean Corpuscular Hemoglobin Concent 30.7 G/DL (32.0-36.0) 30.9 G/DL (32.0-36.0) Red Cell Distribution Width 20.9 % (11.6-14.8) 20.8 % (11.6-14.8) Platelet Count 312 K/UL (150-450) 312 K/UL (150-450) Mean Platelet Volume 6.3 FL (6.5-10.1) 6.0 FL (6.5-10.1) Neutrophils (%) (Auto) 66.6 % (45.0-75.0) 64.3 % (45.0-75.0) Lymphocytes (%) (Auto) 13.9 % (20.0-45.0) 14.7 % (20.0-45.0) Monocytes (%) (Auto) 10.5 % (1.0-10.0) 10.7 % (1.0-10.0) Eosinophils (%) (Auto) 6.9 % (0.0-3.0) 7.9 % (0.0-3.0) Basophils (%) (Auto) 2.1 % (0.0-2.0) 2.4 % (0.0-2.0) Sodium Level 140 MMOL/L (136-145) 141 MMOL/L (136-145) 140 MMOL/L (136-145) Potassium Level 3.6 MMOL/L (3.5-5.1) 3.8 MMOL/L (3.5-5.1) 3.7 MMOL/L (3.5-5.1) Chloride Level 103 MMOL/L (98-107) 104 MMOL/L (98-107) 103 MMOL/L (98-107) Carbon Dioxide Level 33 MMOL/L (21-32) 33 MMOL/L (21-32) 32 MMOL/L (21-32) Anion Gap 4 mmol/L (5-15) 4 mmol/L (5-15) 5 mmol/L (5-15) Blood Urea Nitrogen 6 mg/dL (7-18) 6 mg/dL (7-18) 9 mg/dL (7-18) Creatinine 0.7 MG/DL (0.55-1.30) 0.6 MG/DL (0.55-1.30) 0.6 MG/DL (0.55-1.30) Estimat Glomerular Filtration Rate > 60 mL/min (>60) > 60 mL/min (>60) > 60 mL/min (>60) Glucose Level 109 MG/DL (74-106) 91 MG/DL (74-106) 88 MG/DL (74-106) Calcium Level 9.2 MG/DL (8.5-10.1) 9.4 MG/DL (8.5-10.1) 9.6 MG/DL (8.5-10.1) Phosphorus Level 3.7 MG/DL (2.5-4.9) 3.5 MG/DL (2.5-4.9) Magnesium Level 1.5 MG/DL (1.8-2.4) 1.8 MG/DL (1.8-2.4) 1.8 MG/DL (1.8-2.4) Height (Feet): 5 Height (Inches): 7.00 Weight (Pounds): 150 Objective Gen: nad Pulm: ctab, no cwr CV: rrr Abd: soft, nt Ext: no cce Martinez Hill MD May 10, 2020 06:34
--- NOTE | 2020-05-10 06:35 | NUR ---
NURSE HAND-OFF: Important Events on Shift: No acute events, pain management, eaton in place, draining well, on NC 2L Patient Status: Stable Diet: Regular Pending Orders: N/A Pending Results/Labs: N/A Pending MD notification: N/A Latest Vital Signs: Temperature 98.1 , Pulse 88 , B/P 121 /59 , Respiratory Rate 18 , O2 SAT 95 , Nasal Cannula, O2 Flow Rate 2.0 . Vital Sign Comment: Stable Latest [place] Fall Score: 55 Fall Risk: High Risk Safety Measures: Call light Within Reach, Bed Alarm Zone 1, Side Rails Side Rails x3, Bed position Low and Locked. Fall Precautions: Door Sign Patient Fall Education
--- NOTE | 2020-05-10 07:28 | NUR ---
HAND-OFF: Report given to REA Cody.
[2020-05-10 07:51] LABS: BASOPHILS % (AUTO) 2.9 % (0.0-2.0); EOSINOPHILS % (AUTO) 10.6 % (0.0-3.0); HEMATOCRIT 26.7 % (37.0-47.0); HEMOGLOBIN 8.1 G/DL (12.0-16.0); LYMPHOCYTES % (AUTO) 11.7 % (20.0-45.0); MEAN CORPUSCULAR VOLUME 92 FL (80-99); MONOCYTES % (AUTO) 12.3 % (1.0-10.0); NEUTROPHILS % (AUTO) 62.5 % (45.0-75.0); PLATELET COUNT 300 K/UL (150-450); RED BLOOD COUNT 2.91 M/UL (4.20-5.40); RED CELL DISTRIBUTION WIDTH 20.6 % (11.6-14.8); WHITE BLOOD COUNT 3.9 K/UL (4.8-10.8)
[2020-05-10 07:55] LABS: ANION GAP 4 mmol/L (5-15); BLOOD UREA NITROGEN 6 mg/dL (7-18); CALCIUM 9.8 MG/DL (8.5-10.1); CARBON DIOXIDE 34 MMOL/L (21-32); CHLORIDE 103 MMOL/L (98-107); CREATININE 0.5 MG/DL (0.55-1.30); POTASSIUM 3.7 MMOL/L (3.5-5.1); SODIUM 141 MMOL/L (136-145)
[2020-05-10 08:00] VITALS: BP 97/62
--- NOTE | 2020-05-10 08:24 | Pulmonology Progress Note ---
Subjective ROS Limited/Unobtainable: No Interval Events: None new Constitutional: Reports: fever - resolved, fatigue HEENT: Repors: no symptoms Respiratory: Reports: no symptoms, dry cough Cardiovascular: Reports: no symptoms Gastrointestinal/Abdominal: Denies: nausea, vomiting, diarrhea Psychiatric: Denies: depression Skin: Denies: rash Musculoskeletal: Denies: pain Allergies: Coded Allergies: No Known Allergies (Unverified , 04/11/20) Objective Last 24 Hour Vital Signs Date Time Temp Pulse Resp B/P (MAP) Pulse Ox O2 Delivery O2 Flow Rate FiO2 05/10/20 04:00 98.1 88 18 121/59 (79) 95 05/10/20 00:00 98.4 91 18 100/67 (78) 94 05/09/20 21:00 Nasal Cannula 2.0 05/09/20 20:00 98.6 88 18 102/67 (79) 94 05/09/20 19:52 97 Nasal Cannula 2.0 28 05/09/20 18:33 97.8 05/09/20 16:00 97.8 92 20 108/66 (80) 97 05/09/20 14:55 97.6 05/09/20 12:00 97.6 104 20 109/67 (81) 97 05/09/20 09:19 97.8 05/09/20 09:00 Nasal Cannula 2.0 05/09/20 08:33 97 Nasal Cannula 2.0 28 Intake and Output 05/09/20 05/10/20 19:00 07:00 Intake Total 600 ml Output Total 400 ml 1600 ml Balance 200 ml -1600 ml Intake Oral 600 ml Output Urine Total 400 ml 1600 ml # Voids 1 1 # Bowel Movements 1 Objective 05/10 no change, still on 1-2L NC 05/09 no change, still on 2L NC 05/08 no change respiratory-salomon; stable 05/07 stable saturation 05/06 no change 05/05 no change respiratory-salomon; stable no change 05/03 no change; AM labs unavailable 05/02 on and off 2 L NC; NAD 05/01 no change 04/28 on and off 1 L NC; NAD 04/27 on and off 1 L NC; NAD 04/26 still on 1 L NC; NAD 04/25 no change respiratory-salomon 04/24 no change 04/23 on and off 1 lpm NC 04/22 saturating well on and off 1 lpm NC 04/21 no change 04/20 pt saturating well on 2 lpm NC; NAD 04/19 pt saturating well on 2 lpm NC; NAD 04/18 pt saturating well on 2 lpm NC General Appearance: WD/WN, no acute distress HEENT: normocephalic, atraumatic Respiratory: lungs clear Cardiovascular: normal rate, regular rhythm Abdomen: soft, non tender Genitourinary: other - Morales Extremities: no edema Laboratory Tests 05/10/20 05:25: White Blood Count 3.9L, Red Blood Count 2.91L, Hemoglobin 8.1L, Hematocrit 26.7L , Mean Corpuscular Volume 92, Mean Corpuscular Hemoglobin 28.0, Mean Corpuscular Hemoglobin Concent 30.4L, Red Cell Distribution Width 20.6H, Platelet Count 300, Mean Platelet Volume 5.8L, Neutrophils (%) (Auto) 62.5, Lymphocytes (%) (Auto) 11.7L, Monocytes (%) (Auto) 12.3H, Eosinophils (%) (Auto) 10.6H, Basophils (%) (Auto) 2.9H, Sodium Level 141, Potassium Level 3.7, Chloride Level 103, Carbon Dioxide Level 34H, Anion Gap 4L, Blood Urea Nitrogen 6L, Creatinine 0.5L, Estimat Glomerular Filtration Rate > 60, Glucose Level 79, Calcium Level 9.8 Current Medications Medications (Trade) Dose Ordered Sig/Angelika Route PRN Reason Start Time Stop Time Status Last Admin Dose Admin Acetaminophen (Tylenol) 650 mg Q6H PRN ORAL Mild Pain (Pain Scale 1-3) 04/12/20 02:45 05/12/20 02:44 05/09/20 18:03 Acetaminophen (Tylenol) 650 mg Q6H PRN ORAL FEVER 04/12/20 16:30 05/12/20 16:29 04/27/20 00:38 Acetaminophen/ Hydrocodone Bitart ([place] 10/325) 1 tab Q6H PRN ORAL severe pain 05/04/20 22:17 05/11/20 22:16 05/10/20 03:11 Acetaminophen/ Hydrocodone Bitart ([place] 5/325) 1 tab Q6H PRN ORAL moderate pain 05/04/20 18:30 05/11/20 18:29 05/07/20 08:38 Allopurinol (allopurinoL) 300 mg DAILY ORAL 04/12/20 09:00 05/12/20 08:59 05/09/20 08:48 Ascorbic Acid (Vitamin C) 500 mg DAILY ORAL 04/26/20 09:00 05/26/20 08:59 05/09/20 08:48 Baclofen (Lioresal) 10 mg THREE TIMES A DAY ORAL 04/12/20 09:00 05/12/20 08:59 05/04/20 09:31 Chlorhexidine Gluconate (Christy-Hex 2%) 1 applic Q24H TOPIC 04/25/20 20:00 07/24/20 19:59 04/30/20 20:46 Docusate Sodium (Colace) 100 mg TWICE A DAY ORAL 04/27/20 09:00 05/20/20 08:59 05/09/20 08:49 Dronabinol (Marinol) 5 mg BID ORAL 05/01/20 09:00 07/30/20 08:59 05/09/20 17:55 Heparin Sodium (Porcine) (Heparin 5000 units/ml) 5,000 units EVERY 8 HOURS SUBQ 04/24/20 22:00 06/08/20 21:59 05/05/20 05:38 Lactulose (Cephulac) 20 gm THREE TIMES A DAY ORAL 04/21/20 13:00 05/21/20 12:59 05/08/20 08:18 Linaclotide (Linzess) 290 mcg BEFORE BREAKFAST ORAL 04/26/20 06:30 07/25/20 06:29 05/10/20 06:20 Magnesium Oxide (Mag-Ox 400mg) 400 mg THREE TIMES A DAY ORAL 04/30/20 13:00 05/30/20 12:59 05/09/20 17:55 Morphine Sulfate (Morphine Sulfate) 2 mg Q3H PRN IVP Severe Pain (Pain Scale 7-10) 05/04/20 19:17 05/11/20 19:16 05/08/20 09:44 Morphine Sulfate (Morphine Sulfate) 4 mg Q3H PRN IVP SEVERE BREAKTHRU PAIN 05/04/20 19:18 05/11/20 19:17 Multivitamins (Multivitamins) 1 tab DAILY ORAL 04/26/20 09:00 05/26/20 08:59 1/5/21 08:48 Ondansetron HCl (Zofran) 4 mg Q6H PRN IVP Nausea & Vomiting 04/19/20 13:30 05/19/20 13:29 04/29/20 18:17 Polyethylene Glycol (Miralax) 17 gm DAILY ORAL 04/20/20 09:00 05/20/20 08:59 05/08/20 08:18 Assessment/Plan Assessment/Plan 1. COVID-19 infection - COVID-19 PCR 04/21 positive: now off isolation - no indication for steroid or remdesivir given her normoxemia - s/p cefepime - CXR with diffuse non-specific inflammatory/infectious process - cont supplemental oxygen as needed; currently saturating well on 2L NC - CT A/P/C - no obvious pna or abscess, cultures negative 2. Immunocompromised state with history of non-Hodgkin lymphoma. - h/o port line infection; s/p Vanco - to return to [facility] for further Tx 3. Fever; resolved - urine culture showed zee albicans - blood culture showed no growth 4. Hx of Hypertension. 5. Hx of gout. 6. Anemia - s/p pRBC 7. DVT ppx - on SCD 8. Low TSH; improving - Dr. Fermin following - no need for levothyroxine per Dr. Fermin 9. Zee UTI - Urine Cx showed zee albicans - On fluconazole 200mg daily for 5 days (05/04 - 05/09) per ID 10. Hypokalemia - potassium replaced per neprho 11. Hypomagnesemia - Mg replaced per nephro 12. L hip fx; likely chronic - per ortho; consideration for outpatient management noted We will follow carefully as post anesthesia room nurse dc planning back to SNF noted; pending placement Medically stable for discharge from pulmonary stand point The care for this patient was discussed with my supervising physician Time spent for this case was approximately 31 minutes Joaquín Simons May 10, 2020 08:24
[2020-05-10] MEDS: Ascorbic Acid 500mg tab ORAL SCH (08:59)
[2020-05-10] MEDS: Dronabinol 2.5mg Cap ORAL SCH ×2 (08:59→17:36)
[2020-05-10] MEDS: Docusate 100mg cap ORAL SCH ×2 (08:59→17:36)
[2020-05-10] MEDS: Magnesium Oxide 400mg tab ORAL SCH ×3 (08:59→17:36)
[2020-05-10] MEDS: Lactulose 20gm/30ml UDC ORAL SCH ×3 (09:00→17:40)
[2020-05-10] MEDS: Miralax 17gm pkt ORAL SCH (09:00)
--- NOTE | 2020-05-10 09:06 | General Progress Note ---
Subjective ROS Limited/Unobtainable: Yes Allergies: Coded Allergies: No Known Allergies (Unverified , 04/11/20) Objective Last 24 Hour Vital Signs Date Time Temp Pulse Resp B/P (MAP) Pulse Ox O2 Delivery O2 Flow Rate FiO2 05/10/20 04:00 98.1 88 18 121/59 (79) 95 05/10/20 00:00 98.4 91 18 100/67 (78) 94 05/09/20 21:00 Nasal Cannula 2.0 05/09/20 20:00 98.6 88 18 102/67 (79) 94 05/09/20 19:52 97 Nasal Cannula 2.0 28 05/09/20 18:33 97.8 05/09/20 16:00 97.8 92 20 108/66 (80) 97 05/09/20 14:55 97.6 05/09/20 12:00 97.6 104 20 109/67 (81) 97 05/09/20 09:19 97.8 Intake and Output 05/09/20 05/10/20 19:00 07:00 Intake Total 600 ml Output Total 400 ml 1600 ml Balance 200 ml -1600 ml Intake Oral 600 ml Output Urine Total 400 ml 1600 ml # Voids 1 1 # Bowel Movements 1 Laboratory Tests 05/10/20 05:25: White Blood Count 3.9L, Red Blood Count 2.91L, Hemoglobin 8.1L, Hematocrit 26.7L , Mean Corpuscular Volume 92, Mean Corpuscular Hemoglobin 28.0, Mean Corpuscular Hemoglobin Concent 30.4L, Red Cell Distribution Width 20.6H, Platelet Count 300, Mean Platelet Volume 5.8L, Neutrophils (%) (Auto) 62.5, Lymphocytes (%) (Auto) 11.7L, Monocytes (%) (Auto) 12.3H, Eosinophils (%) (Auto) 10.6H, Basophils (%) (Auto) 2.9H, Sodium Level 141, Potassium Level 3.7, Chloride Level 103, Carbon Dioxide Level 34H, Anion Gap 4L, Blood Urea Nitrogen 6L, Creatinine 0.5L, Estimat Glomerular Filtration Rate > 60, Glucose Level 79, Calcium Level 9.8 Height (Feet): 5 Height (Inches): 7.00 Weight (Pounds): 150 General Appearance: no apparent distress EENT: normal ENT inspection Neck: supple Cardiovascular: normal rate Respiratory/Chest: decreased breath sounds Abdomen: normal bowel sounds, non tender, soft Extremities: non-tender Assessment/Plan Status: stable Assessment/Plan: iron def anemia mild elevated CEA lymphoma on chemo covid positive neg stool ob iv iron fu H&H needs out patient fu for colonoscopy fu oncology CT reviewed colace miralax lactulose Patrick Feliciano MD May 10, 2020 09:06
--- NOTE | 2020-05-10 09:46 | General Progress Note ---
Subjective Constitutional: Reports: weakness Allergies: Coded Allergies: No Known Allergies (Unverified , 04/11/20) All Systems: reviewed and negative except above Subjective o2nc calm Objective Last 24 Hour Vital Signs Date Time Temp Pulse Resp B/P (MAP) Pulse Ox O2 Delivery O2 Flow Rate FiO2 05/10/20 04:00 98.1 88 18 121/59 (79) 95 05/10/20 00:00 98.4 91 18 100/67 (78) 94 05/09/20 21:00 Nasal Cannula 2.0 05/09/20 20:00 98.6 88 18 102/67 (79) 94 05/09/20 19:52 97 Nasal Cannula 2.0 28 05/09/20 18:33 97.8 05/09/20 16:00 97.8 92 20 108/66 (80) 97 05/09/20 14:55 97.6 05/09/20 12:00 97.6 104 20 109/67 (81) 97 Intake and Output 05/09/20 05/10/20 19:00 07:00 Intake Total 600 ml Output Total 400 ml 1600 ml Balance 200 ml -1600 ml Intake Oral 600 ml Output Urine Total 400 ml 1600 ml # Voids 1 1 # Bowel Movements 1 Laboratory Tests 05/10/20 05:25: White Blood Count 3.9L, Red Blood Count 2.91L, Hemoglobin 8.1L, Hematocrit 26.7L , Mean Corpuscular Volume 92, Mean Corpuscular Hemoglobin 28.0, Mean Corpuscular Hemoglobin Concent 30.4L, Red Cell Distribution Width 20.6H, Platelet Count 300, Mean Platelet Volume 5.8L, Neutrophils (%) (Auto) 62.5, Lymphocytes (%) (Auto) 11.7L, Monocytes (%) (Auto) 12.3H, Eosinophils (%) (Auto) 10.6H, Basophils (%) (Auto) 2.9H, Sodium Level 141, Potassium Level 3.7, Chloride Level 103, Carbon Dioxide Level 34H, Anion Gap 4L, Blood Urea Nitrogen 6L, Creatinine 0.5L, Estimat Glomerular Filtration Rate > 60, Glucose Level 79, Calcium Level 9.8 Height (Feet): 5 Height (Inches): 7.00 Weight (Pounds): 150 General Appearance: lethargic EENT: normal ENT inspection Neck: normal alignment Cardiovascular: normal peripheral pulses, normal rate, regular rhythm Respiratory/Chest: chest wall non-tender, lungs clear, normal breath sounds Abdomen: normal bowel sounds, non tender, soft Extremities: normal inspection Edema: no edema noted Arm (L), no edema noted Arm (R), no edema noted Leg (L), no edema noted Leg (R), no edema noted Pedal (L), no edema noted Pedal (R), no edema noted Generalized Neurologic: motor weakness Skin: normal pigmentation, warm/dry Assessment/Plan Problem List: (1) Lymphoma ICD Codes: C85.90 - Non-Hodgkin lymphoma, unspecified, unspecified site SNOMED: 748695986 (2) Hip fracture ICD Codes: S72.009A - Fracture of unspecified part of neck of unspecified femur, initial encounter for closed fracture SNOMED: 917067291 (3) Anemia ICD Codes: D64.9 - Anemia, unspecified SNOMED: 637274222 Qualifiers: Qualified Codes: D64.9 - Anemia, unspecified (4) Abnormal thyroid function test ICD Codes: R94.6 - Abnormal results of thyroid function studies SNOMED: 922085952 (5) JIM (acute kidney injury) ICD Codes: N17.9 - Acute kidney failure, unspecified SNOMED: 9963806, 62260444 (6) COVID-19 ICD Codes: U07.1 - COVID-19 SNOMED: 233886953 Status: stable, progressing Assessment/Plan: o2 pulm tx abx cbc bmp am dc plan to [facility] Spencer Lopez DO May 10, 2020 09:46
[2020-05-10 12:00] VITALS: BP 94/69
--- NOTE | 2020-05-10 14:24 | NUR ---
CASE MANAGEMENT:REVIEW SI;LT HIP FRACTURE. JIM. ANEMIA 98.9 93 18 94/69 95% 2L NC WBC 3.9 H/H 8.1/26.7 CO2 34 IS;NORCO PO Q6 PRN MARINOL PO BID VIT C PO QD LINZESS PO QD LACTULOSE PO TID HEPARIN SQ Q8 BACLOFEN PO TID ALLOPURINOL PO QD MED SURG STATUS DCP;PENDING SNF PLACEMENT
[2020-05-10 16:00] VITALS: BP 99/63
--- NOTE | 2020-05-10 16:45 | Cardiac Electrophysiology PN ---
Assessment/Plan Assessment/Plan 1. Sinus tachycardia due to sepsis, anemia and COVID. Can not use beta-domenico as blood pressure is 100/70. 2. COVID pneumonia. Now off isolation 3. Hypokalemia. 4. Hypomagnesemia. 5. History of non-Hodgkin lymphoma. 6. Leukopenia and anemia. FU Dr. Valencia S/P PRBC 7. Fever. 8. Low Mg replaced 9. Left Hip Fx; Likely Chronic > Patient states she fell 5 months ago. Also had hard fall on coccyx in 2018. Minimal pain in left hip Per Dr. Payan. Given patient bed bound risks > benefits. LUKE RN DC to SN[facility] pending Subjective Subjective No events. Covid isolation DCed. On 2 liter NC. Awaiting SNIF placement Objective Last 24 Hour Vital Signs Date Time Temp Pulse Resp B/P (MAP) Pulse Ox O2 Delivery O2 Flow Rate FiO2 05/10/20 15:35 98.9 05/10/20 13:34 98.9 05/10/20 12:00 98.9 86 18 94/69 (77) 96 05/10/20 09:27 98.1 05/10/20 09:00 Nasal Cannula 2.0 05/10/20 08:00 98.1 93 18 97/62 (74) 96 05/10/20 04:00 98.1 88 18 121/59 (79) 95 05/10/20 00:00 98.4 91 18 100/67 (78) 94 05/09/20 21:00 Nasal Cannula 2.0 05/09/20 20:00 98.6 88 18 102/67 (79) 94 05/09/20 19:52 97 Nasal Cannula 2.0 28 05/09/20 18:33 97.8 Intake and Output 05/09/20 05/10/20 19:00 07:00 Intake Total 600 ml Output Total 400 ml 1600 ml Balance 200 ml -1600 ml Intake Oral 600 ml Output Urine Total 400 ml 1600 ml # Voids 1 1 # Bowel Movements 1 Laboratory Tests Test 05/10/20 05:25 White Blood Count 3.9 K/UL (4.8-10.8) L Red Blood Count 2.91 M/UL (4.20-5.40) L Hemoglobin 8.1 G/DL (12.0-16.0) L Hematocrit 26.7 % (37.0-47.0) L Mean Corpuscular Volume 92 FL (80-99) Mean Corpuscular Hemoglobin 28.0 PG (27.0-31.0) Mean Corpuscular Hemoglobin Concent 30.4 G/DL (32.0-36.0) L Red Cell Distribution Width 20.6 % (11.6-14.8) H Platelet Count 300 K/UL (150-450) Mean Platelet Volume 5.8 FL (6.5-10.1) L Neutrophils (%) (Auto) 62.5 % (45.0-75.0) Lymphocytes (%) (Auto) 11.7 % (20.0-45.0) L Monocytes (%) (Auto) 12.3 % (1.0-10.0) H Eosinophils (%) (Auto) 10.6 % (0.0-3.0) H Basophils (%) (Auto) 2.9 % (0.0-2.0) H Sodium Level 141 MMOL/L (136-145) Potassium Level 3.7 MMOL/L (3.5-5.1) Chloride Level 103 MMOL/L (98-107) Carbon Dioxide Level 34 MMOL/L (21-32) H Anion Gap 4 mmol/L (5-15) L Blood Urea Nitrogen 6 mg/dL (7-18) L Creatinine 0.5 MG/DL (0.55-1.30) L Estimat Glomerular Filtration Rate > 60 mL/min (>60) Glucose Level 79 MG/DL (74-106) Calcium Level 9.8 MG/DL (8.5-10.1) Objective HEAD AND NECK: No JVD. LUNGS: Coarse rhonchi. CARDIOVASCULAR: Regular S1 and S2 with no gallop or murmur. ABDOMEN: Soft. EXTREMITIES: No pitting edema. Ehsan Wan MD May 10, 2020 16:45
--- NOTE | 2020-05-10 17:21 | Nephrology Progress Note ---
Assessment/Plan Plan #acute kidney injury likely due to vanco toxicity #hypokalemia- #hypomagnesemia #Acute on chronic anemia #h/p non- hodgkins lymphoma #possible sepsis #+ COVID #Femoral intertrochanteric hip fracture. - replete k and mag - Pulmonary eval - prbc transfusion prn - replete lytes - hemo-onc eval - ID eval - monitor CBC - avoid nephrotoxins - ortho eval - spine eval for L3 acute on chronic bone infarct, less likely neoplasm or infection? times spent 65 min Subjective ROS Limited/Unobtainable: No Constitutional: Reports: weakness HEENT: Denies: no symptoms, eye pain, blurred vision, tearing, double vision, ear pain, ear discharge, nose pain, nose congestion, throat pain, throat swelling, mouth pain, mouth swelling, other Genitourinary: Denies: no symptoms, burning, discharge, frequency, flank pain, hematuria, incontinence, pain, urgency, other Neurologic/Psychiatric: Denies: no symptoms, anxiety, depressed, emotional problems, headache, numbness, paresthesia, pre-existing deficit, seizure, tingling, tremors, weakness, other Subjective Cr better today mag and K low repleted hip fracture noted ortho consulted Impression: Minimal distention of the rectum with feces, could represent mild rectal fecal impaction. Equivocal slight thickening of the rectal wall and stranding of the perirectal fat, if real could indicate mild stercoral proctitis Comminuted fracture of the left femoral head, neck, and intertrochanteric region, ununited. Possibly acute, but abundant soft tissues surrounding the fracture area raises possibility that this could be chronic. Correlate with clinical findings Other findings as noted, including evidence of old T12 vertebral body compression fracture and prior vertebral augmentation procedure, Morales catheter, subcentimeter low-attenuation lesions which probably represent renal cysts, small sliding-type hiatal hernia Impression: Unusual signal abnormality of the posterolateral aspect of the L3 vertebral body on the right. This appears to be confined to the vertebral body marrow space. Prior CT scan in retrospect demonstrates sclerotic areas in the same location. Most likely differential consideration is an atypical hemangioma. Other possibilities include acute on chronic bone infarct, less likely neoplasm or infection No other unusual contrast enhancement. No findings to suggest discitis or epidural abscess. Objective Objective Last 24 Hour Vital Signs Date Time Temp Pulse Resp B/P (MAP) Pulse Ox O2 Delivery O2 Flow Rate FiO2 05/10/20 15:35 98.9 05/10/20 13:34 98.9 05/10/20 12:00 98.9 86 18 94/69 (77) 96 05/10/20 09:27 98.1 05/10/20 09:00 Nasal Cannula 2.0 05/10/20 08:00 98.1 93 18 97/62 (74) 96 05/10/20 04:00 98.1 88 18 121/59 (79) 95 05/10/20 00:00 98.4 91 18 100/67 (78) 94 05/09/20 21:00 Nasal Cannula 2.0 05/09/20 20:00 98.6 88 18 102/67 (79) 94 05/09/20 19:52 97 Nasal Cannula 2.0 28 05/09/20 18:33 97.8 Intake and Output 05/09/20 05/10/20 19:00 07:00 Intake Total 600 ml Output Total 400 ml 1600 ml Balance 200 ml -1600 ml Intake Oral 600 ml Output Urine Total 400 ml 1600 ml # Voids 1 1 # Bowel Movements 1 Laboratory Tests 05/10/20 05:25: White Blood Count 3.9L, Red Blood Count 2.91L, Hemoglobin 8.1L, Hematocrit 26.7L , Mean Corpuscular Volume 92, Mean Corpuscular Hemoglobin 28.0, Mean Corpuscular Hemoglobin Concent 30.4L, Red Cell Distribution Width 20.6H, Platelet Count 300, Mean Platelet Volume 5.8L, Neutrophils (%) (Auto) 62.5, Lymphocytes (%) (Auto) 11.7L, Monocytes (%) (Auto) 12.3H, Eosinophils (%) (Auto) 10.6H, Basophils (%) (Auto) 2.9H, Sodium Level 141, Potassium Level 3.7, Chloride Level 103, Carbon Dioxide Level 34H, Anion Gap 4L, Blood Urea Nitrogen 6L, Creatinine 0.5L, Estimat Glomerular Filtration Rate > 60, Glucose Level 79, Calcium Level 9.8 Height (Feet): 5 Height (Inches): 7.00 Weight (Pounds): 150 Objective General Appearance: no apparent distress EENT: PERRL/EOMI Neck: non-tender, normal alignment Cardiovascular: normal peripheral pulses, normal rate Respiratory/Chest: chest wall non-tender, lungs clear Abdomen: normal bowel sounds, non tender Neurologic: alert, oriented x 3 Kallie Dykes M.D. May 10, 2020 17:21
[2020-05-10] MEDS ORDERED: Morphine Sulfate 2mg/ml Inj(IV/IM USE ONLY) IVP PRN (18:00)
[2020-05-10] MEDS ORDERED: Morphine Sulfate 4mg/ml Inj (IV USE ONLY) IVP PRN (18:00)
--- NOTE | 2020-05-10 19:44 | Cardiology Report ---
APPROVED REPORT EKG Measurement Heart [id number] <Conclusion> Sinus tachycardia Possible Anterior infarct, age undetermined Abnormal ECG
--- NOTE | 2020-05-10 19:57 | NUR ---
NURSE HAND-OFF: Important Events on Shift:[Pain controlled, BM today] Patient Status: [] Diet: [reg] Pending Orders: [] Pending Results/Labs:[] Pending MD notification:[] Latest Vital Signs: Temperature 98.7 , Pulse 103 , B/P 99 /63 , Respiratory Rate 18 , O2 SAT 96 , Nasal Cannula, O2 Flow Rate 2.0 . Vital Sign Comment: [stable] Latest [place] Fall Score: 55 Fall Risk: High Risk Safety Measures: Call light Within Reach, Bed Alarm Zone 1, Side Rails Side Rails x3, Bed position Low and Locked. Fall Precautions: Door Sign Patient Fall Education Report given to [REA Gil].
[2020-05-10 20:00] VITALS: BP 120/83
[2020-05-10] MEDS: Dyna-Hex 2% Top Sol 2oz TOPIC SCH (20:00)
--- NOTE | 2020-05-10 20:05 | NUR ---
NURSES NOTE: Rounds completed. Pt in bed, A/OX4, denies discomfort or pain currently. No outward s/s of distress noted. Breathing pattern is even and unlabored on 2L nasal canula. Pt is bed bound. Morales in place, draining to gravity. Sacral ulcer covered with Optifoam. In place, dry, clean. All due medications will be administered. Bed at lowest level. Call light within reach. Pt will continue to be monitored.
--- NOTE | 2020-05-10 23:19 | Neurology Progress Note ---
Interim History Interim History ROS Limited/Unobtainable: No Interim History somnolent, no distress Objective Physical Exam Last Vital Signs Date Time Temp Pulse Resp B/P (MAP) Pulse Ox O2 Delivery O2 Flow Rate FiO2 05/10/20 16:00 98.7 103 18 99/63 (75) 96 05/10/20 09:00 Nasal Cannula 2.0 05/09/20 19:52 28 Laboratory Tests Test 05/10/20 05:25 White Blood Count 3.9 K/UL (4.8-10.8) L Red Blood Count 2.91 M/UL (4.20-5.40) L Hemoglobin 8.1 G/DL (12.0-16.0) L Hematocrit 26.7 % (37.0-47.0) L Mean Corpuscular Volume 92 FL (80-99) Mean Corpuscular Hemoglobin 28.0 PG (27.0-31.0) Mean Corpuscular Hemoglobin Concent 30.4 G/DL (32.0-36.0) L Red Cell Distribution Width 20.6 % (11.6-14.8) H Platelet Count 300 K/UL (150-450) Mean Platelet Volume 5.8 FL (6.5-10.1) L Neutrophils (%) (Auto) 62.5 % (45.0-75.0) Lymphocytes (%) (Auto) 11.7 % (20.0-45.0) L Monocytes (%) (Auto) 12.3 % (1.0-10.0) H Eosinophils (%) (Auto) 10.6 % (0.0-3.0) H Basophils (%) (Auto) 2.9 % (0.0-2.0) H Sodium Level 141 MMOL/L (136-145) Potassium Level 3.7 MMOL/L (3.5-5.1) Chloride Level 103 MMOL/L (98-107) Carbon Dioxide Level 34 MMOL/L (21-32) H Anion Gap 4 mmol/L (5-15) L Blood Urea Nitrogen 6 mg/dL (7-18) L Creatinine 0.5 MG/DL (0.55-1.30) L Estimat Glomerular Filtration Rate > 60 mL/min (>60) Glucose Level 79 MG/DL (74-106) Calcium Level 9.8 MG/DL (8.5-10.1) Impression/Recommendations Problems: (1) Anemia Status: stable, progressing Diagnostic Impression Chronic weakness, LE worse than UEs MRI spine noted, osteoma wo spine compression slplaminectomy COVID 19 pneumonia (febrile, tachycardic) Hx of Lymphoma cont medical support pain control PT as able Renny Bajwa MD May 10, 2020 23:19
[2020-05-11] VITALS: BP 106/81
[2020-05-11] MEDS: HYDROcodone/Acetamin 10/325 tab ORAL PRN ×2 (03:39→13:06)
[2020-05-11 04:00] VITALS: BP 98/62
[2020-05-11] MEDS: Heparin 5000 units/ml inj SUBQ SCH ×3 (06:00→22:00)
--- NOTE | 2020-05-11 06:32 | Hematology/Onc Progress Note ---
Assessment/Plan Assessment/Plan # Leukopenia COVID19++++++++++ --> hep and hiv are neg --> wbc 4-->3-->2.9->2->4.6--4.1-->3.6-->4.7-->3.6->4.1-->4.7-->3.8-->3 --> Neupogen 300 x1 04/21 --> isolation if anc<500 # Non-Hodgkins Lymphoma is s/p chemotherapy in the past --> to return to [facility] for further treatment --> likely for ct/pet as outpatient --> CT Here shows no e/o disease --> imaging has been reviewed thus far --> end date of 04/2020 # Anemia likely of chronic disease -- does not appear to have iron deficiency --> transfuse as needed, tibc and ferritin are cw acd --> hgb 7.8-->8.6-->8.5-->8.4->7.6-->10-->9.9->9.6-->8.7-->8 --> no hemolysis is noted --> s/p transfusion on admission # Covid 19++ with SIRS (febrile, tachycardic) --> per pulm and id --> CXR with diffuse non-specific inflammatory/infectious process --> s/p Cefepime (04/14 - 04/15) # Hypokalemia # Hypomagnesia # Chronic Back pain # Full Code # Dvt ppx heparin sq Appreciate consultation and dw Rn Subjective Constitutional: Denies: no symptoms, chills, fever, malaise, weakness, other HEENT: Denies: no symptoms, eye pain, blurred vision, tearing, double vision, ear pain, ear discharge, nose pain, nose congestion, throat pain, throat swelling, mouth pain, mouth swelling, other Cardiovascular: Denies: no symptoms, chest pain, edema, irregular heart rate, lightheadedness, palpitations, syncope, other Respiratory: Denies: no symptoms, cough, shortness of breath, SOB with excertion, SOB at rest, sputum, wheezing, other Gastrointestinal/Abdominal: Denies: no symptoms, abdomen distended, abdominal pain, black stools, tarry stools, blood in stool, constipated, diarrhea, difficulty swallowing, nausea, poor appetite, poor fluid intake, rectal bleeding, vomiting, other Genitourinary: Denies: no symptoms, burning, discharge, frequency, flank pain, hematuria, incontinence, pain, urgency, other Neurologic/Psychiatric: Denies: no symptoms, anxiety, depressed, emotional problems, headache, numbness, paresthesia, pre-existing deficit, seizure, tingling, tremors, weakness, other Allergies: Coded Allergies: No Known Allergies (Unverified , 04/11/20) Subjective 04/17 is on room air, more comfortable, potential dc to snf 04/18 labs reviewed, no bleeding, meds noted, no night sweats 04/19 sleeping comfortably, no major events, no night sweats 04/20 meds noted, labs reviewed, wbc 2.9, hep and hiv is neg 04/21 labs reviewed, in am, the wbc was 2, to get neupogen x 1 dose now 04/23 labs noted, no bleeding, wbc 4, hgb remains low, but holding off trans 04/24 labs are pending for am, meds reviewed, no bleeding 04/25 meds reviewed, labs noted, no night sweats, reagan rn at bedside, no new events 04/26 labs reviewed, meds noted, no bleeding, wbc 3, hgb 7.6 04/27 reagan rn at bedside, labs are noted, no bleeding, refusing heparin now sq 04/28 labs have been reviewed, is on room air, no bleeding, tachy 04/30 labs pending, no night sweats, meds reviewed, tachy, no night sweats, wants iv iron 05/01 dc planning, meds noted, for labs this am, no new events 05/02 meds reviewed, has been refusing care, continue heparin sq 05/03 labs reviewed, on 2lnc, no bleeding, remains on hep but refusing 05/04 meds ntoed, labs reviewed, no new changes, reagan RN 05/05 meds noted, no bleeding, labs reviewed, no f/c 2: no acute events reported, no resp distress 05/07: no resp distress, vss on RA dc planning continues 05/08 on [facility] prn, nc, eaton, labs are noted 05/09 meds reviewed, labs pending, on nc, eaton 05/10 nc with eaton, no night sweats, meds have been reviewed 05/11 2lnc, bedbound no new changes, no new events, no bleeding Objective Objective Current Medications Medications (Trade) Dose Ordered Sig/Angelika Route PRN Reason Start Time Stop Time Status Last Admin Dose Admin Acetaminophen (Tylenol) 650 mg Q6H PRN ORAL Mild Pain (Pain Scale 1-3) 05/10/20 17:30 06/09/20 17:29 Acetaminophen (Tylenol) 650 mg Q6H PRN ORAL Temp >100.5 05/10/20 18:00 06/09/20 17:59 Acetaminophen/ Hydrocodone Bitart ([place] 10/325) 1 tab Q6H PRN ORAL Severe Pain (Pain Scale 7-10) 05/10/20 21:00 05/17/20 20:59 05/11/20 03:39 Acetaminophen/ Hydrocodone Bitart ([place] 5/325) 1 tab Q6H PRN ORAL Moderate Pain (Pain Scale 4-6) 05/10/20 18:00 05/17/20 17:59 Allopurinol (allopurinoL) 300 mg DAILY ORAL 04/12/20 09:00 05/12/20 08:59 05/10/20 08:59 Ascorbic Acid (Vitamin C) 500 mg DAILY ORAL 04/26/20 09:00 05/26/20 08:59 05/10/20 08:59 Baclofen (Lioresal) 10 mg THREE TIMES A DAY ORAL 04/12/20 09:00 05/12/20 08:59 05/04/20 09:31 Chlorhexidine Gluconate (Christy-Hex 2%) 1 applic Q24H TOPIC 04/25/20 20:00 07/24/20 19:59 04/30/20 20:46 Docusate Sodium (Colace) 100 mg TWICE A DAY ORAL 04/27/20 09:00 05/20/20 08:59 05/10/20 17:36 Dronabinol (Marinol) 5 mg BID ORAL 05/01/20 09:00 07/30/20 08:59 05/10/20 17:36 Heparin Sodium (Porcine) (Heparin 5000 units/ml) 5,000 units EVERY 8 HOURS SUBQ 04/24/20 22:00 06/08/20 21:59 05/05/20 05:38 Lactulose (Cephulac) 20 gm THREE TIMES A DAY ORAL 04/21/20 13:00 05/21/20 12:59 05/08/20 08:18 Linaclotide (Linzess) 290 mcg BEFORE BREAKFAST ORAL 04/26/20 06:30 07/25/20 06:29 05/11/20 06:22 Magnesium Oxide (Mag-Ox 400mg) 400 mg THREE TIMES A DAY ORAL 04/30/20 13:00 05/30/20 12:59 05/10/20 17:36 Morphine Sulfate (Morphine Sulfate) 2 mg Q3H PRN IVP Severe Pain (Pain Scale 7-10) 05/10/20 18:00 05/17/20 17:59 Morphine Sulfate (Morphine Sulfate) 4 mg Q3H PRN IVP SEVERE BREAKTHRU PAIN 05/10/20 18:00 05/17/20 17:59 Multivitamins (Multivitamins) 1 tab DAILY ORAL 04/26/20 09:00 05/26/20 08:59 05/10/20 08:59 Ondansetron HCl (Zofran) 4 mg Q6H PRN IVP Nausea & Vomiting 04/19/20 13:30 05/19/20 13:29 04/29/20 18:17 Polyethylene Glycol (Miralax) 17 gm DAILY ORAL 04/20/20 09:00 05/20/20 08:59 05/08/20 08:18 Last 24 Hour Vital Signs Date Time Temp Pulse Resp B/P (MAP) Pulse Ox O2 Delivery O2 Flow Rate FiO2 05/11/20 00:00 97.9 115 17 106/81 (89) 94 05/10/20 21:00 Nasal Cannula 2.0 05/10/20 20:00 98.2 118 18 120/83 (95) 94 05/10/20 16:00 98.7 103 18 99/63 (75) 96 05/10/20 15:35 98.9 05/10/20 13:34 98.9 05/10/20 12:00 98.9 86 18 94/69 (77) 96 05/10/20 09:27 98.1 05/10/20 09:00 Nasal Cannula 2.0 05/10/20 08:00 98.1 93 18 97/62 (74) 96 05/10/20 04:00 98.1 88 18 121/59 (79) 95 05/10/20 00:00 98.4 91 18 100/67 (78) 94 05/09/20 21:00 Nasal Cannula 2.0 05/09/20 20:00 98.6 88 18 102/67 (79) 94 05/09/20 19:52 97 Nasal Cannula 2.0 28 05/09/20 18:33 97.8 05/09/20 16:00 97.8 92 20 108/66 (80) 97 05/09/20 14:55 97.6 05/09/20 12:00 97.6 104 20 109/67 (81) 97 05/09/20 09:19 97.8 05/09/20 09:00 Nasal Cannula 2.0 05/09/20 08:33 97 Nasal Cannula 2.0 28 05/09/20 08:00 97.8 94 20 126/53 (77) 94 Intake and Output 05/10/20 05/11/20 19:00 07:00 Intake Total 600 ml Output Total 800 ml 1000 ml Balance -200 ml -1000 ml Intake Oral 600 ml Output Urine Total 800 ml 1000 ml # Voids 1 1 # Bowel Movements 1 Labs Test 05/08/20 09:35 05/09/20 06:08 05/10/20 05:25 05/11/20 05:20 Sodium Level 141 MMOL/L (136-145) 140 MMOL/L (136-145) 141 MMOL/L (136-145) Potassium Level 3.8 MMOL/L (3.5-5.1) 3.7 MMOL/L (3.5-5.1) 3.7 MMOL/L (3.5-5.1) Chloride Level 104 MMOL/L (98-107) 103 MMOL/L (98-107) 103 MMOL/L (98-107) Carbon Dioxide Level 33 MMOL/L (21-32) 32 MMOL/L (21-32) 34 MMOL/L (21-32) Anion Gap 4 mmol/L (5-15) 5 mmol/L (5-15) 4 mmol/L (5-15) Blood Urea Nitrogen 6 mg/dL (7-18) 9 mg/dL (7-18) 6 mg/dL (7-18) Creatinine 0.6 MG/DL (0.55-1.30) 0.6 MG/DL (0.55-1.30) 0.5 MG/DL (0.55-1.30) Estimat Glomerular Filtration Rate > 60 mL/min (>60) > 60 mL/min (>60) > 60 mL/min (>60) Glucose Level 91 MG/DL (74-106) 88 MG/DL (74-106) 79 MG/DL (74-106) Calcium Level 9.4 MG/DL (8.5-10.1) 9.6 MG/DL (8.5-10.1) 9.8 MG/DL (8.5-10.1) Phosphorus Level 3.5 MG/DL (2.5-4.9) Magnesium Level 1.8 MG/DL (1.8-2.4) 1.8 MG/DL (1.8-2.4) White Blood Count 3.8 K/UL (4.8-10.8) 3.9 K/UL (4.8-10.8) Red Blood Count 3.07 M/UL (4.20-5.40) 2.91 M/UL (4.20-5.40) Hemoglobin 8.5 G/DL (12.0-16.0) 8.1 G/DL (12.0-16.0) Hematocrit 27.4 % (37.0-47.0) 26.7 % (37.0-47.0) Mean Corpuscular Volume 89 FL (80-99) 92 FL (80-99) Mean Corpuscular Hemoglobin 27.7 PG (27.0-31.0) 28.0 PG (27.0-31.0) Mean Corpuscular Hemoglobin Concent 30.9 G/DL (32.0-36.0) 30.4 G/DL (32.0-36.0) Red Cell Distribution Width 20.8 % (11.6-14.8) 20.6 % (11.6-14.8) Platelet Count 312 K/UL (150-450) 300 K/UL (150-450) Mean Platelet Volume 6.0 FL (6.5-10.1) 5.8 FL (6.5-10.1) Neutrophils (%) (Auto) 64.3 % (45.0-75.0) 62.5 % (45.0-75.0) Lymphocytes (%) (Auto) 14.7 % (20.0-45.0) 11.7 % (20.0-45.0) Monocytes (%) (Auto) 10.7 % (1.0-10.0) 12.3 % (1.0-10.0) Eosinophils (%) (Auto) 7.9 % (0.0-3.0) 10.6 % (0.0-3.0) Basophils (%) (Auto) 2.4 % (0.0-2.0) 2.9 % (0.0-2.0) Height (Feet): 5 Height (Inches): 7.00 Weight (Pounds): 150 Objective Gen: nad Pulm: ctab, no cwr CV: rrr Abd: soft, nt Ext: no cce Martinez Hill MD May 11, 2020 06:32
[2020-05-11 06:51] LABS: BASOPHILS % (AUTO) 2.5 % (0.0-2.0); EOSINOPHILS % (AUTO) 8.9 % (0.0-3.0); HEMATOCRIT 26.4 % (37.0-47.0); HEMOGLOBIN 8.2 G/DL (12.0-16.0); LYMPHOCYTES % (AUTO) 11.9 % (20.0-45.0); MEAN CORPUSCULAR VOLUME 91 FL (80-99); MONOCYTES % (AUTO) 12.2 % (1.0-10.0); NEUTROPHILS % (AUTO) 64.6 % (45.0-75.0); PLATELET COUNT 326 K/UL (150-450); RED BLOOD COUNT 2.88 M/UL (4.20-5.40)
[2020-05-11 07:20] LABS: ANION GAP 5 mmol/L (5-15); BLOOD UREA NITROGEN 7 mg/dL (7-18); CALCIUM 9.9 MG/DL (8.5-10.1); CARBON DIOXIDE 33 MMOL/L (21-32); CHLORIDE 102 MMOL/L (98-107); CREATININE 0.6 MG/DL (0.55-1.30); POTASSIUM 4.4 MMOL/L (3.5-5.1); SODIUM 139 MMOL/L (136-145)
--- NOTE | 2020-05-11 07:30 | NUR ---
NURSE NOTES: Handoff received from Carley LUCIA. Patient is awake and alert, nis igns of acute distress noted, breathing is even and unlabored on 2L nasal cannula. Rt hand Iv is intact and saline locked. Morales catheter is draining to gravity. Patient is reporting 10/10 pain, will medicate as ordered. Bed is low and locked, side rails up x2, call light is within reach.
--- NOTE | 2020-05-11 07:43 | NUR ---
NURSE HAND-OFF: Important Events on Shift:[N/A] Patient Status: [STABLE] Diet: [REGULAR] Pending Orders: [N/A] Pending Results/Labs:[CBC BMP] Pending MD notification:[N/A] Latest Vital Signs: Temperature 98.1 , Pulse 93 , B/P 98 /62 , Respiratory Rate 18 , O2 SAT 94 , Nasal Cannula, O2 Flow Rate 2.0 . Vital Sign Comment: [WNL] Latest [place] Fall Score: 55 Fall Risk: High Risk Safety Measures: Call light Within Reach, Bed Alarm Zone 1, Side Rails Side Rails x3, Bed position Low and Locked. Fall Precautions: Door Sign Patient Fall Education Report given to [REA LACKEY].
[2020-05-11 08:00] VITALS: BP 101/64
[2020-05-11] MEDS: Lactulose 20gm/30ml UDC ORAL SCH ×4 (09:00→16:24)
--- NOTE | 2020-05-11 09:03 | General Progress Note ---
Subjective Constitutional: Reports: weakness Allergies: Coded Allergies: No Known Allergies (Unverified , 04/11/20) All Systems: reviewed and negative except above Subjective sleepy calm Objective Last 24 Hour Vital Signs Date Time Temp Pulse Resp B/P (MAP) Pulse Ox O2 Delivery O2 Flow Rate FiO2 05/11/20 04:00 98.1 93 18 98/62 (74) 94 05/11/20 00:00 97.9 115 17 106/81 (89) 94 05/10/20 21:00 Nasal Cannula 2.0 05/10/20 20:00 98.2 118 18 120/83 (95) 94 05/10/20 16:00 98.7 103 18 99/63 (75) 96 05/10/20 15:35 98.9 05/10/20 13:34 98.9 05/10/20 12:00 98.9 86 18 94/69 (77) 96 05/10/20 09:27 98.1 Intake and Output 05/10/20 05/11/20 19:00 07:00 Intake Total 600 ml Output Total 800 ml 1000 ml Balance -200 ml -1000 ml Intake Oral 600 ml Output Urine Total 800 ml 1000 ml # Voids 1 1 # Bowel Movements 1 Laboratory Tests 05/11/20 05:20: White Blood Count 4.0L, Red Blood Count 2.88L, Hemoglobin 8.2L, Hematocrit 26.4L , Mean Corpuscular Volume 91, Mean Corpuscular Hemoglobin 28.5, Mean Corpuscular Hemoglobin Concent 31.2L, Red Cell Distribution Width 20.0H, Platelet Count 326, Mean Platelet Volume 6.1L, Neutrophils (%) (Auto) 64.6, Lymphocytes (%) (Auto) 11.9L, Monocytes (%) (Auto) 12.2H, Eosinophils (%) (Auto) 8.9H, Basophils (%) (Auto) 2.5H, Sodium Level 139, Potassium Level 4.4, Chloride Level 102, Carbon Dioxide Level 33H, Anion Gap 5, Blood Urea Nitrogen 7, Creatinine 0.6, Estimat Glomerular Filtration Rate > 60, Glucose Level 83, Calcium Level 9.9 Height (Feet): 5 Height (Inches): 7.00 Weight (Pounds): 150 General Appearance: lethargic EENT: normal ENT inspection Neck: normal alignment Cardiovascular: normal peripheral pulses, normal rate, regular rhythm Respiratory/Chest: chest wall non-tender, lungs clear, normal breath sounds Abdomen: normal bowel sounds, non tender, soft Extremities: normal inspection Edema: no edema noted Arm (L), no edema noted Arm (R), no edema noted Leg (L), no edema noted Leg (R), no edema noted Pedal (L), no edema noted Pedal (R), no edema noted Generalized Neurologic: motor weakness Skin: normal pigmentation, warm/dry Assessment/Plan Problem List: (1) Lymphoma ICD Codes: C85.90 - Non-Hodgkin lymphoma, unspecified, unspecified site SNOMED: 265205701 (2) Hip fracture ICD Codes: S72.009A - Fracture of unspecified part of neck of unspecified femur, initial encounter for closed fracture SNOMED: 020745851 (3) Anemia ICD Codes: D64.9 - Anemia, unspecified SNOMED: 323971237 Qualifiers: Qualified Codes: D64.9 - Anemia, unspecified (4) Abnormal thyroid function test ICD Codes: R94.6 - Abnormal results of thyroid function studies SNOMED: 933729078 (5) JIM (acute kidney injury) ICD Codes: N17.9 - Acute kidney failure, unspecified SNOMED: 3815041, 18231329 (6) COVID-19 ICD Codes: U07.1 - COVID-19 SNOMED: 501338386 Status: stable, progressing Assessment/Plan: o2 pulm tx abx gi heme eval cbc bmp am dc plan to [facility] Spencer Lopez DO May 11, 2020 09:03
--- NOTE | 2020-05-11 09:03 | Neurology Progress Note ---
Interim History Interim History ROS Limited/Unobtainable: No Interim History no new deficits Objective Physical Exam Last Vital Signs Date Time Temp Pulse Resp B/P (MAP) Pulse Ox O2 Delivery O2 Flow Rate FiO2 05/11/20 04:00 98.1 93 18 98/62 (74) 94 05/10/20 21:00 Nasal Cannula 2.0 05/09/20 19:52 28 Laboratory Tests Test 05/11/20 05:20 White Blood Count 4.0 K/UL (4.8-10.8) L Red Blood Count 2.88 M/UL (4.20-5.40) L Hemoglobin 8.2 G/DL (12.0-16.0) L Hematocrit 26.4 % (37.0-47.0) L Mean Corpuscular Volume 91 FL (80-99) Mean Corpuscular Hemoglobin 28.5 PG (27.0-31.0) Mean Corpuscular Hemoglobin Concent 31.2 G/DL (32.0-36.0) L Red Cell Distribution Width 20.0 % (11.6-14.8) H Platelet Count 326 K/UL (150-450) Mean Platelet Volume 6.1 FL (6.5-10.1) L Neutrophils (%) (Auto) 64.6 % (45.0-75.0) Lymphocytes (%) (Auto) 11.9 % (20.0-45.0) L Monocytes (%) (Auto) 12.2 % (1.0-10.0) H Eosinophils (%) (Auto) 8.9 % (0.0-3.0) H Basophils (%) (Auto) 2.5 % (0.0-2.0) H Sodium Level 139 MMOL/L (136-145) Potassium Level 4.4 MMOL/L (3.5-5.1) Chloride Level 102 MMOL/L (98-107) Carbon Dioxide Level 33 MMOL/L (21-32) H Anion Gap 5 mmol/L (5-15) Blood Urea Nitrogen 7 mg/dL (7-18) Creatinine 0.6 MG/DL (0.55-1.30) Estimat Glomerular Filtration Rate > 60 mL/min (>60) Glucose Level 83 MG/DL (74-106) Calcium Level 9.9 MG/DL (8.5-10.1) Impression/Recommendations Problems: (1) Anemia Status: stable, progressing Diagnostic Impression Chronic weakness, LE worse than UEs MRI spine noted, osteoma wo spine compression slplaminectomy COVID 19 pneumonia (febrile, tachycardic) Hx of Lymphoma cont medical support pain control PT as able Renny Bajwa MD May 11, 2020 09:03
[2020-05-11] MEDS: Dronabinol 2.5mg Cap ORAL SCH ×2 (09:22→17:42)
[2020-05-11] MEDS: Miralax 17gm pkt ORAL SCH (09:22)
[2020-05-11] MEDS: Magnesium Oxide 400mg tab ORAL SCH ×3 (09:22→17:42)
[2020-05-11] MEDS: Docusate 100mg cap ORAL SCH ×2 (09:22→17:42)
[2020-05-11] MEDS: Ascorbic Acid 500mg tab ORAL SCH (09:22)
[2020-05-11] MEDS: HYDROcodone/Acetamin 5/325 tab ORAL PRN ×2 (09:23→17:42)
--- NOTE | 2020-05-11 10:24 | Pulmonology Progress Note ---
Subjective ROS Limited/Unobtainable: No Interval Events: None new Constitutional: Reports: fever - resolved, fatigue HEENT: Repors: no symptoms Respiratory: Reports: no symptoms, dry cough Cardiovascular: Reports: no symptoms Gastrointestinal/Abdominal: Denies: nausea, vomiting, diarrhea Psychiatric: Denies: depression Skin: Denies: rash Musculoskeletal: Denies: pain Allergies: Coded Allergies: No Known Allergies (Unverified , 04/11/20) All Systems: reviewed and negative except above Objective Last 24 Hour Vital Signs Date Time Temp Pulse Resp B/P (MAP) Pulse Ox O2 Delivery O2 Flow Rate FiO2 05/11/20 10:00 98.1 05/11/20 04:00 98.1 93 18 98/62 (74) 94 05/11/20 00:00 97.9 115 17 106/81 (89) 94 05/10/20 21:00 Nasal Cannula 2.0 05/10/20 20:00 98.2 118 18 120/83 (95) 94 05/10/20 16:00 98.7 103 18 99/63 (75) 96 05/10/20 15:35 98.9 05/10/20 13:34 98.9 05/10/20 12:00 98.9 86 18 94/69 (77) 96 Intake and Output 05/10/20 05/11/20 19:00 07:00 Intake Total 600 ml Output Total 800 ml 1000 ml Balance -200 ml -1000 ml Intake Oral 600 ml Output Urine Total 800 ml 1000 ml # Voids 1 1 # Bowel Movements 1 Objective 05/11 no change 05/10 no change, still on 1-2L NC 05/09 no change, still on 2L NC 05/08 no change respiratory-salomon; stable 05/07 stable saturation 05/06 no change 05/05 no change respiratory-salomon; stable no change 05/03 no change; AM labs unavailable 05/02 on and off 2 L NC; NAD 05/01 no change 04/28 on and off 1 L NC; NAD 04/27 on and off 1 L NC; NAD 04/26 still on 1 L NC; NAD 04/25 no change respiratory-salomon 04/24 no change 04/23 on and off 1 lpm NC 04/22 saturating well on and off 1 lpm NC 04/21 no change 04/20 pt saturating well on 2 lpm NC; NAD 04/19 pt saturating well on 2 lpm NC; NAD / pt saturating well on 2 lpm NC General Appearance: WD/WN, no acute distress HEENT: normocephalic, atraumatic Respiratory: lungs clear Cardiovascular: normal rate, regular rhythm Abdomen: soft, non tender Genitourinary: other - Morales Extremities: no edema Laboratory Tests 05/11/20 05:20: White Blood Count 4.0L, Red Blood Count 2.88L, Hemoglobin 8.2L, Hematocrit 26.4L , Mean Corpuscular Volume 91, Mean Corpuscular Hemoglobin 28.5, Mean Corpuscular Hemoglobin Concent 31.2L, Red Cell Distribution Width 20.0H, Platelet Count 326, Mean Platelet Volume 6.1L, Neutrophils (%) (Auto) 64.6, Lymphocytes (%) (Auto) 11.9L, Monocytes (%) (Auto) 12.2H, Eosinophils (%) (Auto) 8.9H, Basophils (%) (Auto) 2.5H, Sodium Level 139, Potassium Level 4.4, Chloride Level 102, Carbon Dioxide Level 33H, Anion Gap 5, Blood Urea Nitrogen 7, Creatinine 0.6, Estimat Glomerular Filtration Rate > 60, Glucose Level 83, Calcium Level 9.9 Current Medications Medications (Trade) Dose Ordered Sig/Angelika Route PRN Reason Start Time Stop Time Status Last Admin Dose Admin Acetaminophen (Tylenol) 650 mg Q6H PRN ORAL Mild Pain (Pain Scale 1-3) 05/10/20 17:30 06/09/20 17:29 Acetaminophen (Tylenol) 650 mg Q6H PRN ORAL Temp >100.5 05/10/20 18:00 06/09/20 17:59 Acetaminophen/ Hydrocodone Bitart (Garrison 10/325) 1 tab Q6H PRN ORAL Severe Pain (Pain Scale 7-10) 05/10/20 21:00 05/17/20 20:59 05/11/20 03:39 Acetaminophen/ Hydrocodone Bitart (Garrison 5/325) 1 tab Q6H PRN ORAL Moderate Pain (Pain Scale 4-6) 05/10/20 18:00 05/17/20 17:59 05/11/20 09:23 Allopurinol (allopurinoL) 300 mg DAILY ORAL 04/12/20 09:00 05/12/20 08:59 05/11/20 09:22 Ascorbic Acid (Vitamin C) 500 mg DAILY ORAL 04/26/20 09:00 05/26/20 08:59 05/11/20 09:22 Baclofen (Lioresal) 10 mg THREE TIMES A DAY ORAL 04/12/20 09:00 05/12/20 08:59 05/04/20 09:31 Chlorhexidine Gluconate (Christy-Hex 2%) 1 applic Q24H TOPIC 04/25/20 20:00 07/24/20 19:59 04/30/20 20:46 Docusate Sodium (Colace) 100 mg TWICE A DAY ORAL 04/27/20 09:00 05/20/20 08:59 05/11/20 09:22 Dronabinol (Marinol) 5 mg BID ORAL 05/01/20 09:00 07/30/20 08:59 05/11/20 09:22 Heparin Sodium (Porcine) (Heparin 5000 units/ml) 5,000 units EVERY 8 HOURS SUBQ 04/24/20 22:00 06/08/20 21:59 05/05/20 05:38 Lactulose (Cephulac) 20 gm THREE TIMES A DAY ORAL 04/21/20 13:00 05/21/20 12:59 05/11/20 09:23 Linaclotide (Linzess) 290 mcg BEFORE BREAKFAST ORAL 04/26/20 06:30 07/25/20 06:29 05/11/20 06:22 Magnesium Oxide (Mag-Ox 400mg) 400 mg THREE TIMES A DAY ORAL 04/30/20 13:00 05/30/20 12:59 05/11/20 09:22 Morphine Sulfate (Morphine Sulfate) 2 mg Q3H PRN IVP Severe Pain (Pain Scale 7-10) 05/10/20 18:00 05/17/20 17:59 Morphine Sulfate (Morphine Sulfate) 4 mg Q3H PRN IVP SEVERE BREAKTHRU PAIN 05/10/20 18:00 05/17/20 17:59 Multivitamins (Multivitamins) 1 tab DAILY ORAL 04/26/20 09:00 05/26/20 08:59 05/11/20 09:22 Ondansetron HCl (Zofran) 4 mg Q6H PRN IVP Nausea & Vomiting 04/19/20 13:30 05/19/20 13:29 04/29/20 18:17 Polyethylene Glycol (Miralax) 17 gm DAILY ORAL 04/20/20 09:00 05/20/20 08:59 05/11/20 09:22 Assessment/Plan Assessment/Plan 1. COVID-19 infection - COVID-19 PCR 04/21 positive: now off isolation - no indication for steroid or remdesivir given her normoxemia - s/p cefepime - CXR with diffuse non-specific inflammatory/infectious process - cont supplemental oxygen as needed; currently saturating well on 2L NC - CT A/P/C - no obvious pna or abscess, cultures negative 2. Immunocompromised state with history of non-Hodgkin lymphoma. - h/o port line infection; s/p Vanco - to return to [facility] for further Tx 3. Fever; resolved - urine culture showed zee albicans - blood culture showed no growth 4. Hx of Hypertension. 5. Hx of gout. 6. Anemia - s/p pRBC 7. DVT ppx - on SCD 8. Low TSH; improving - Dr. Fermin following - no need for levothyroxine per Dr. Fermin 9. Zee UTI - Urine Cx showed zee albicans - On fluconazole 200mg daily for 5 days (05/04 - 05/09) per ID 10. Hypokalemia - potassium replaced per neprho 11. Hypomagnesemia - Mg replaced per nephro 12. 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
--- NOTE | 2020-05-11 11:43 | NUR ---
CASE MANAGEMENT:REVIEW SI;LT HIP FRACTURE. JIM. ANEMIA. 98.2 118 18 98/62 94% 2L NC H/H 8.2/26.4 IS;NORCO PO Q6 PRN MARINOL PO BID MAG-OX PO TID LINZESS PO QD HEPARIN SQ Q8 LACTULOSE PO TID MED SURG STATUS DCP;SNF PLACEMENT
[2020-05-11 12:00] VITALS: BP 116/71
--- NOTE | 2020-05-11 14:00 | General Progress Note ---
Subjective ROS Limited/Unobtainable: No Allergies: Coded Allergies: No Known Allergies (Unverified , 04/11/20) Objective Last 24 Hour Vital Signs Date Time Temp Pulse Resp B/P (MAP) Pulse Ox O2 Delivery O2 Flow Rate FiO2 05/11/20 13:36 97.6 05/11/20 12:00 97.6 121 20 116/71 (86) 98 05/11/20 10:00 98.1 05/11/20 09:00 Nasal Cannula 2.0 05/11/20 08:00 98.1 94 19 101/64 (76) 94 05/11/20 04:00 98.1 93 18 98/62 (74) 94 05/11/20 00:00 97.9 115 17 106/81 (89) 94 05/10/20 21:00 Nasal Cannula 2.0 05/10/20 20:00 98.2 118 18 120/83 (95) 94 05/10/20 16:00 98.7 103 18 99/63 (75) 96 05/10/20 15:35 98.9 Intake and Output 05/10/20 05/11/20 19:00 07:00 Intake Total 600 ml Output Total 800 ml 1000 ml Balance -200 ml -1000 ml Intake Oral 600 ml Output Urine Total 800 ml 1000 ml # Voids 1 1 # Bowel Movements 1 Laboratory Tests 05/11/20 05:20: White Blood Count 4.0L, Red Blood Count 2.88L, Hemoglobin 8.2L, Hematocrit 26.4L , Mean Corpuscular Volume 91, Mean Corpuscular Hemoglobin 28.5, Mean Corpuscular Hemoglobin Concent 31.2L, Red Cell Distribution Width 20.0H, Platelet Count 326, Mean Platelet Volume 6.1L, Neutrophils (%) (Auto) 64.6, Lymphocytes (%) (Auto) 1 1.9L, Monocytes (%) (Auto) 12.2H, Eosinophils (%) (Auto) 8.9H, Basophils (%) (Auto) 2.5H, Sodium Level 139, Potassium Level 4.4, Chloride Level 102, Carbon Dioxide Level 33H, Anion Gap 5, Blood Urea Nitrogen 7, Creatinine 0.6, Estimat Glomerular Filtration Rate > 60, Glucose Level 83, Calcium Level 9.9 Height (Feet): 5 Height (Inches): 7.00 Weight (Pounds): 150 General Appearance: no apparent distress EENT: normal ENT inspection Neck: supple Cardiovascular: normal rate Respiratory/Chest: decreased breath sounds Abdomen: normal bowel sounds, non tender, soft Extremities: non-tender Assessment/Plan Status: stable, progressing Assessment/Plan: iron def anemia mild elevated CEA lymphoma on chemo covid positive neg stool ob iv iron fu H&H needs out patient fu for colonoscopy fu oncology CT reviewed colace miralax lactulose Patrick Feliciano MD May 11, 2020 14:00
[2020-05-11 16:00] VITALS: BP 123/67
--- NOTE | 2020-05-11 16:39 | Cardiac Electrophysiology PN ---
Assessment/Plan Assessment/Plan 1. Sinus tachycardia due to sepsis, anemia and COVID. Can not use beta-domenico as blood pressure is 100/70. 2. COVID pneumonia. Now off isolation 3. Hypokalemia. 4. Hypomagnesemia. 5. History of non-Hodgkin lymphoma. 6. Leukopenia and anemia. FU Dr. Valencia S/P PRBC 7. Fever. 8. Low Mg replaced 9. Left Hip Fx; Likely Chronic > Patient states she fell 5 months ago. Also had hard fall on coccyx in 2018. Minimal pain in left hip Per Dr. Payan. Given patient bed bound risks > benefits. LUKE RN DC to SN[facility] pending Subjective Subjective No events. Covid isolation DCed. On 2 liter NC. Awaiting SNIF placement Objective Last 24 Hour Vital Signs Date Time Temp Pulse Resp B/P (MAP) Pulse Ox O2 Delivery O2 Flow Rate FiO2 05/11/20 16:00 98.8 119 19 123/67 (85) 98 05/11/20 13:36 97.6 05/11/20 12:00 97.6 121 20 116/71 (86) 98 05/11/20 10:00 98.1 05/11/20 09:00 Nasal Cannula 2.0 05/11/20 08:00 98.1 94 19 101/64 (76) 94 05/11/20 04:00 98.1 93 18 98/62 (74) 94 05/11/20 00:00 97.9 115 17 106/81 (89) 94 05/10/20 21:00 Nasal Cannula 2.0 05/10/20 20:00 98.2 118 18 120/83 (95) 94 Intake and Output 05/10/20 05/11/20 19:00 07:00 Intake Total 600 ml Output Total 800 ml 1000 ml Balance -200 ml -1000 ml Intake Oral 600 ml Output Urine Total 800 ml 1000 ml # Voids 1 1 # Bowel Movements 1 Laboratory Tests Test 05/11/20 05:20 White Blood Count 4.0 K/UL (4.8-10.8) L Red Blood Count 2.88 M/UL (4.20-5.40) L Hemoglobin 8.2 G/DL (12.0-16.0) L Hematocrit 26.4 % (37.0-47.0) L Mean Corpuscular Volume 91 FL (80-99) Mean Corpuscular Hemoglobin 28.5 PG (27.0-31.0) Mean Corpuscular Hemoglobin Concent 31.2 G/DL (32.0-36.0) L Red Cell Distribution Width 20.0 % (11.6-14.8) H Platelet Count 326 K/UL (150-450) Mean Platelet Volume 6.1 FL (6.5-10.1) L Neutrophils (%) (Auto) 64.6 % (45.0-75.0) Lymphocytes (%) (Auto) 11.9 % (20.0-45.0) L Monocytes (%) (Auto) 12.2 % (1.0-10.0) H Eosinophils (%) (Auto) 8.9 % (0.0-3.0) H Basophils (%) (Auto) 2.5 % (0.0-2.0) H Sodium Level 139 MMOL/L (136-145) Potassium Level 4.4 MMOL/L (3.5-5.1) Chloride Level 102 MMOL/L (98-107) Carbon Dioxide Level 33 MMOL/L (21-32) H Anion Gap 5 mmol/L (5-15) Blood Urea Nitrogen 7 mg/dL (7-18) Creatinine 0.6 MG/DL (0.55-1.30) Estimat Glomerular Filtration Rate > 60 mL/min (>60) Glucose Level 83 MG/DL (74-106) Calcium Level 9.9 MG/DL (8.5-10.1) Objective HEAD AND NECK: No JVD. LUNGS: Coarse rhonchi. CARDIOVASCULAR: Regular S1 and S2 with no gallop or murmur. ABDOMEN: Soft. EXTREMITIES: No pitting edema. Ehsan Wan MD May 11, 2020 16:39
--- NOTE | 2020-05-11 17:21 | NUR ---
*-*DISCHARGE PLANNING*-* PATIENT HAS BEEN REFERRED TO: [facility]OR[facility] MITCHELL P: [phone] S/W CIARA, WILL FOLLOW UP AFTER REVIEW.
--- NOTE | 2020-05-11 17:46 | Nephrology Progress Note ---
Assessment/Plan Plan #acute kidney injury likely due to vanco toxicity #hypokalemia- #hypomagnesemia #Acute on chronic anemia #h/p non- hodgkins lymphoma #possible sepsis #+ COVID #Femoral intertrochanteric hip fracture. - replete k and mag - Pulmonary eval - prbc transfusion prn - replete lytes - hemo-onc eval - ID eval - monitor CBC - avoid nephrotoxins - ortho eval - spine eval for L3 acute on chronic bone infarct, less likely neoplasm or infection? times spent 65 min Subjective Subjective Cr better today mag and K low repleted hip fracture noted ortho consulted Impression: Minimal distention of the rectum with feces, could represent mild rectal fecal impaction. Equivocal slight thickening of the rectal wall and stranding of the perirectal fat, if real could indicate mild stercoral proctitis Comminuted fracture of the left femoral head, neck, and intertrochanteric region , ununited. Possibly acute, but abundant soft tissues surrounding the fracture area raises possibility that this could be chronic. Correlate with clinical findings Other findings as noted, including evidence of old T12 vertebral body compression fracture and prior vertebral augmentation procedure, Morales catheter, subcentimeter low-attenuation lesions which probably represent renal cysts, small sliding-type hiatal hernia Impression: Unusual signal abnormality of the posterolateral aspect of the L3 vertebral body on the right. This appears to be confined to the vertebral body marrow space. Prior CT scan in retrospect demonstrates sclerotic areas in the same location. Most likely differential consideration is an atypical hemangioma. Other possibilities include acute on chronic bone infarct, less likely neoplasm or infection No other unusual contrast enhancement. No findings to suggest discitis or epidural abscess. Objective Objective Last 24 Hour Vital Signs Date Time Temp Pulse Resp B/P (MAP) Pulse Ox O2 Delivery O2 Flow Rate FiO2 05/11/20 16:00 98.8 119 19 123/67 (85) 98 05/11/20 13:36 97.6 05/11/20 12:00 97.6 121 20 116/71 (86) 98 05/11/20 10:00 98.1 05/11/20 09:00 Nasal Cannula 2.0 05/11/20 08:00 98.1 94 19 101/64 (76) 94 05/11/20 04:00 98.1 93 18 98/62 (74) 94 05/11/20 00:00 97.9 115 17 106/81 (89) 94 05/10/20 21:00 Nasal Cannula 2.0 05/10/20 20:00 98.2 118 18 120/83 (95) 94 Intake and Output 05/10/20 05/11/20 19:00 07:00 Intake Total 600 ml Output Total 800 ml 1000 ml Balance -200 ml -1000 ml Intake Oral 600 ml Output Urine Total 800 ml 1000 ml # Voids 1 1 # Bowel Movements 1 Laboratory Tests 05/11/20 05:20: White Blood Count 4.0L, Red Blood Count 2.88L, Hemoglobin 8.2L, Hematocrit 26.4L , Mean Corpuscular Volume 91, Mean Corpuscular Hemoglobin 28.5, Mean Corpuscular Hemoglobin Concent 31.2L, Red Cell Distribution Width 20.0H, Platelet Count 326, Mean Platelet Volume 6.1L, Neutrophils (%) (Auto) 64.6, Lymphocytes (%) (Auto) 11.9L, Monocytes (%) (Auto) 12.2H, Eosinophils (%) (Auto) 8.9H, Basophils (%) ( Auto) 2.5H, Sodium Level 139, Potassium Level 4.4, Chloride Level 102, Carbon Dioxide Level 33H, Anion Gap 5, Blood Urea Nitrogen 7, Creatinine 0.6, Estimat Glomerular Filtration Rate > 60, Glucose Level 83, Calcium Level 9.9 Height (Feet): 5 Height (Inches): 7.00 Weight (Pounds): 150 Objective General Appearance: no apparent distress EENT: PERRL/EOMI Neck: non-tender, normal alignment Cardiovascular: normal peripheral pulses, normal rate Respiratory/Chest: chest wall non-tender, lungs clear Abdomen: normal bowel sounds, non tender Neurologic: alert, oriented x 3 Kallie Dykes M.D. May 11, 2020 17:46
--- NOTE | 2020-05-11 18:48 | NUR ---
NURSE HAND-OFF: Important Events on Shift:[none] Patient Status: stable Diet: regular Pending Orders: Pending Results/Labs:CBC Pending MD notification: Latest Vital Signs: Temperature 98.8 , Pulse 119 , B/P 123 /67 , Respiratory Rate 19 , O2 SAT 98 , Nasal Cannula, O2 Flow Rate 2.0 . Vital Sign Comment: stable Latest [place] Fall Score: 55 Fall Risk: High Risk Safety Measures: Call light Within Reach, Bed Alarm Zone 1, Side Rails Side Rails x3, Bed position Low and Locked. Fall Precautions: Door Sign Patient Fall Education Report given to Horacoi RN.
--- NOTE | 2020-05-11 19:20 | NUR ---
NURSE NOTES: The patient is calm and is alert and oriented x4 and is on 2 liters of oxygen via NC well tolerated.She does not seem to be in any active distress at this time. She is paraplegic and has a Morales situated under gravity due to retention. The patient has a R, hand 24g saline locked that is patent and asymptomatic. She is essentially bedbound with bed in low level and locked and the call light within easy reach. will continue to monitor as indicated
[2020-05-11 20:00] VITALS: BP 90/56
[2020-05-11] MEDS: Dyna-Hex 2% Top Sol 2oz TOPIC SCH (20:00)
[2020-05-12] VITALS: BP 98/62
[2020-05-12] MEDS: HYDROcodone/Acetamin 10/325 tab ORAL PRN ×4 (01:13→23:56)
[2020-05-12 04:00] VITALS: BP 97/68
--- NOTE | 2020-05-12 04:10 | NUR ---
NURSE NOTES: The patient is alert and stable and was cooperative with her care and doesn't appear to be in any distress. She received her pain medication and was calm and relaxed.Will continue to monitor as indicated
[2020-05-12] MEDS: Heparin 5000 units/ml inj SUBQ SCH ×3 (05:52→21:57)
[2020-05-12 06:56] LABS: BASOPHILS % (AUTO) 2.6 % (0.0-2.0); EOSINOPHILS % (AUTO) 8.7 % (0.0-3.0); HEMATOCRIT 26.5 % (37.0-47.0); HEMOGLOBIN 8.3 G/DL (12.0-16.0); LYMPHOCYTES % (AUTO) 10.9 % (20.0-45.0); MEAN CORPUSCULAR VOLUME 90 FL (80-99); MONOCYTES % (AUTO) 11.1 % (1.0-10.0); NEUTROPHILS % (AUTO) 66.7 % (45.0-75.0); PLATELET COUNT 336 K/UL (150-450); RED BLOOD COUNT 2.94 M/UL (4.20-5.40); RED CELL DISTRIBUTION WIDTH 21.3 % (11.6-14.8); WHITE BLOOD COUNT 4.3 K/UL (4.8-10.8)
--- NOTE | 2020-05-12 07:09 | NUR ---
NURSE HAND-OFF: Important Events on Shift:Alert and stable Patient Status: Diet: Pending Orders: Pending Results/Labs: Pending MD notification: Latest Vital Signs: Temperature 97.5 , Pulse 95 , B/P 97 /68 , Respiratory Rate 20 , O2 SAT 97 , Nasal Cannula, O2 Flow Rate 2.0 . Vital Sign Comment: Latest [place]ina Fall Score: 55 Fall Risk: High Risk Safety Measures: Call light Within Reach, Bed Alarm Zone 1, Side Rails Side Rails x3, Bed position Low and Locked. Fall Precautions: Door Sign Patient Fall Education Report given to .
[2020-05-12 07:17] LABS: ANION GAP 5 mmol/L (5-15); BLOOD UREA NITROGEN 10 mg/dL (7-18); CALCIUM 10.1 MG/DL (8.5-10.1); CARBON DIOXIDE 31 MMOL/L (21-32); CHLORIDE 107 MMOL/L (98-107); CREATININE 0.7 MG/DL (0.55-1.30); POTASSIUM 4.5 MMOL/L (3.5-5.1); SODIUM 143 MMOL/L (136-145)
[2020-05-12 08:00] VITALS: BP 105/70
[2020-05-12] MEDS: Lactulose 20gm/30ml UDC ORAL SCH ×5 (08:39→18:00)
[2020-05-12] MEDS: Ascorbic Acid 500mg tab ORAL SCH (08:39)
[2020-05-12] MEDS: Dronabinol 2.5mg Cap ORAL SCH ×2 (08:40→17:33)
[2020-05-12] MEDS: Magnesium Oxide 400mg tab ORAL SCH ×3 (08:41→17:33)
[2020-05-12] MEDS: Miralax 17gm pkt ORAL SCH (08:41)
[2020-05-12] MEDS: Docusate 100mg cap ORAL SCH ×2 (08:42→18:00)
--- NOTE | 2020-05-12 08:50 | NUR ---
NURSE NOTES: Patient refused lactulose, docusate sodium despite education and risks and benefits education.
--- NOTE | 2020-05-12 08:51 | General Progress Note ---
Subjective Constitutional: Reports: weakness Allergies: Coded Allergies: No Known Allergies (Unverified , 04/11/20) All Systems: reviewed and negative except above Subjective sleepy calm Objective Last 24 Hour Vital Signs Date Time Temp Pulse Resp B/P (MAP) Pulse Ox O2 Delivery O2 Flow Rate FiO2 05/12/20 04:00 97.5 95 20 97/68 (78) 97 05/12/20 00:00 98.3 109 18 98/62 (74) 100 05/11/20 21:00 Nasal Cannula 2.0 05/11/20 20:00 98.3 110 19 90/56 (67) 94 05/11/20 19:50 100 Nasal Cannula 2.0 28 05/11/20 18:12 98.8 05/11/20 16:00 98.8 119 19 123/67 (85) 98 05/11/20 13:36 97.6 05/11/20 12:00 97.6 121 20 116/71 (86) 98 05/11/20 10:00 98.1 05/11/20 09:00 Nasal Cannula 2.0 Intake and Output 05/11/20 05/12/20 19:00 07:00 Intake Total 230 ml Output Total 1400 ml 600 ml Balance -1400 ml -370 ml Intake Oral 230 ml Output Urine Total 1400 ml 600 ml # Voids 1 Laboratory Tests 05/12/20 06:10: White Blood Count 4.3L, Red Blood Count 2.94L, Hemoglobin 8.3L, Hematocrit 26.5L , Mean Corpuscular Volume 90, Mean Corpuscular Hemoglobin 28.2, Mean Corpuscular Hemoglobin Concent 31.4L, Red Cell Distribution Width 21.3H, Platelet Count 336, Mean Platelet Volume 6.8, Neutrophils (%) (Auto) 66.7, Lymphocytes (%) (Auto) 10.9L, Monocytes (%) (Auto) 11.1H, Eosinophils (%) (Auto) 8.7H, Basophils (%) (Auto) 2.6H, Sodium Level 143, Potassium Level 4.5, Chloride Level 107, Carbon Dioxide Level 31, Anion Gap 5, Blood Urea Nitrogen 10, Creatinine 0.7, Estimat Glomerular Filtration Rate > 60, Glucose Level 93, Calcium Level 10.1 Height (Feet): 5 Height (Inches): 7.00 Weight (Pounds): 150 General Appearance: lethargic EENT: normal ENT inspection Neck: normal alignment Cardiovascular: normal peripheral pulses, normal rate, regular rhythm Respiratory/Chest: chest wall non-tender, lungs clear, normal breath sounds Abdomen: normal bowel sounds, non tender, soft Extremities: normal inspection Edema: no edema noted Arm (L), no edema noted Arm (R), no edema noted Leg (L), no edema noted Leg (R), no edema noted Pedal (L), no edema noted Pedal (R), no edema noted Generalized Neurologic: motor weakness Skin: normal pigmentation, warm/dry Assessment/Plan Problem List: (1) Lymphoma ICD Codes: C85.90 - Non-Hodgkin lymphoma, unspecified, unspecified site SNOMED: 276451138 (2) Hip fracture ICD Codes: S72.009A - Fracture of unspecified part of neck of unspecified femur, initial encounter for closed fracture SNOMED: 262600643 (3) Anemia ICD Codes: D64.9 - Anemia, unspecified SNOMED: 336878806 Qualifiers: Qualified Codes: D64.9 - Anemia, unspecified (4) Abnormal thyroid function test ICD Codes: R94.6 - Abnormal results of thyroid function studies SNOMED: 529677286 (5) JIM (acute kidney injury) ICD Codes: N17.9 - Acute kidney failure, unspecified SNOMED: 6987534, 41030215 (6) COVID-19 ICD Codes: U07.1 - COVID-19 SNOMED: 036778748 Status: stable, progressing Assessment/Plan: o2 pulm tx abx gi heme eval cbc bmp am dc plan to [facility] Spencer Lopez DO May 12, 2020 08:51
--- NOTE | 2020-05-12 09:57 | Pulmonology Progress Note ---
Subjective ROS Limited/Unobtainable: No Interval Events: None new Constitutional: Reports: fever - resolved, fatigue HEENT: Repors: no symptoms Respiratory: Reports: no symptoms, dry cough Cardiovascular: Reports: no symptoms Gastrointestinal/Abdominal: Denies: nausea, vomiting, diarrhea Psychiatric: Denies: depression Skin: Denies: rash Musculoskeletal: Denies: pain Allergies: Coded Allergies: No Known Allergies (Unverified , 04/11/20) All Systems: reviewed and negative except above Objective Last 24 Hour Vital Signs Date Time Temp Pulse Resp B/P (MAP) Pulse Ox O2 Delivery O2 Flow Rate FiO2 05/12/20 09:10 97.5 05/12/20 04:00 97.5 95 20 97/68 (78) 97 05/12/20 00:00 98.3 109 18 98/62 (74) 100 05/11/20 21:00 Nasal Cannula 2.0 05/11/20 20:00 98.3 110 19 90/56 (67) 94 05/11/20 19:50 100 Nasal Cannula 2.0 28 05/11/20 18:12 98.8 05/11/20 16:00 98.8 119 19 123/67 (85) 98 05/11/20 13:36 97.6 05/11/20 12:00 97.6 121 20 116/71 (86) 98 05/11/20 10:00 98.1 Intake and Output 05/11/20 05/12/20 19:00 07:00 Intake Total 230 ml Output Total 1400 ml 600 ml Balance -1400 ml -370 ml Intake Oral 230 ml Output Urine Total 1400 ml 600 ml # Voids 1 Objective 05/12 no change respiratory-salomon 05/11 no change 05/10 no change, still on 1-2L NC 05/09 no change, still on 2L NC 05/08 no change respiratory-salomon; stable 05/07 stable saturation 05/06 no change 05/05 no change respiratory-salomon; stable no change 05/03 no change; AM labs unavailable 05/02 on and off 2 L NC; NAD 05/01 no change 04/28 on and off 1 L NC; NAD 04/27 on and off 1 L NC; NAD 04/26 still on 1 L NC; NAD 04/25 no change respiratory-salomon 04/24 no change 04/23 on and off 1 lpm NC 04/22 saturating well on and off 1 lpm NC 04/21 no change 04/20 pt saturating well on 2 lpm NC; NAD 04/19 pt saturating well on 2 lpm NC; NAD 04/18 pt saturating well on 2 lpm NC General Appearance: WD/WN, no acute distress HEENT: normocephalic, atraumatic Respiratory: lungs clear Cardiovascular: normal rate, regular rhythm Abdomen: soft, non tender Genitourinary: other - Morales Extremities: no edema Laboratory Tests 05/12/20 06:10: White Blood Count 4.3L, Red Blood Count 2.94L, Hemoglobin 8.3L, Hematocrit 26.5L , Mean Corpuscular Volume 90, Mean Corpuscular Hemoglobin 28.2, Mean Corpuscular Hemoglobin Concent 31.4L, Red Cell Distribution Width 21.3H, Platelet Count 336, Mean Platelet Volume 6.8, Neutrophils (%) (Auto) 66.7, Lymphocytes (%) (Auto) 10.9L, Monocytes (%) (Auto) 11.1H, Eosinophils (%) (Auto) 8.7H, Basophils (%) (Auto) 2.6H, Sodium Level 143, Potassium Level 4.5, Chloride Level 107, Carbon Dioxide Level 31, Anion Gap 5, Blood Urea Nitrogen 10, Creatinine 0.7, Estimat Glomerular Filtration Rate > 60, Glucose Level 93, Calcium Level 10.1 Current Medications Medications (Trade) Dose Ordered Sig/Angelika Route PRN Reason Start Time Stop Time Status Last Admin Dose Admin Acetaminophen (Tylenol) 650 mg Q6H PRN ORAL Mild Pain (Pain Scale 1-3) 05/10/20 17:30 06/09/20 17:29 Acetaminophen (Tylenol) 650 mg Q6H PRN ORAL Temp >100.5 05/10/20 18:00 06/09/20 17:59 Acetaminophen/ Hydrocodone Bitart ([place] 10/325) 1 tab Q6H PRN ORAL Severe Pain (Pain Scale 7-10) 05/10/20 21:00 05/17/20 20:59 05/12/20 08:40 Acetaminophen/ Hydrocodone Bitart ([place] 5/325) 1 tab Q6H PRN ORAL Moderate Pain (Pain Scale 4-6) 05/10/20 18:00 05/17/20 17:59 05/11/20 17:42 Allopurinol (allopurinoL) 300 mg DAILY ORAL 05/12/20 09:00 06/11/20 08:59 05/12/20 08:41 Ascorbic Acid (Vitamin C) 500 mg DAILY ORAL 04/26/20 09:00 05/26/20 08:59 05/12/20 08:39 Baclofen (Lioresal) 10 mg THREE TIMES A DAY ORAL 05/11/20 13:00 06/10/20 12:59 Chlorhexidine Gluconate (Christy-Hex 2%) 1 applic Q24H TOPIC 04/25/20 20:00 07/24/20 19:59 04/30/20 20:46 Docusate Sodium (Colace) 100 mg TWICE A DAY ORAL 04/27/20 09:00 05/20/20 08:59 05/11/20 17:42 Dronabinol (Marinol) 5 mg BID ORAL 05/01/20 09:00 07/30/20 08:59 05/12/20 08:40 Heparin Sodium (Porcine) (Heparin 5000 units/ml) 5,000 units EVERY 8 HOURS SUBQ 04/24/20 22:00 06/08/20 21:59 05/05/20 05:38 Lactulose (Cephulac) 20 gm THREE TIMES A DAY ORAL 04/21/20 13:00 05/21/20 12:59 05/08/20 08:18 Linaclotide (Linzess) 290 mcg BEFORE BREAKFAST ORAL 04/26/20 06:30 07/25/20 06:29 05/12/20 06:19 Magnesium Oxide (Mag-Ox 400mg) 400 mg THREE TIMES A DAY ORAL 04/30/20 13:00 05/30/20 12:59 05/12/20 08:41 Morphine Sulfate (Morphine Sulfate) 2 mg Q3H PRN IVP Severe Pain (Pain Scale 7-10) 05/10/20 18:00 05/17/20 17:59 Morphine Sulfate (Morphine Sulfate) 4 mg Q3H PRN IVP SEVERE BREAKTHRU PAIN 05/10/20 18:00 05/17/20 17:59 Multivitamins (Multivitamins) 1 tab DAILY ORAL 04/26/20 09:00 05/26/20 08:59 05/12/20 08:40 Ondansetron HCl (Zofran) 4 mg Q6H PRN IVP Nausea & Vomiting 04/19/20 13:30 05/19/20 13:29 04/29/20 18:17 Polyethylene Glycol (Miralax) 17 gm DAILY ORAL 04/20/20 09:00 05/20/20 08:59 05/12/20 08:41 Assessment/Plan Assessment/Plan 1. COVID-19 infection - COVID-19 PCR 04/21 positive: now off isolation - no indication for steroid or remdesivir given her normoxemia - s/p cefepime - CXR with diffuse non-specific inflammatory/infectious process - cont supplemental oxygen as needed; currently saturating well on 2L NC - CT A/P/C - no obvious pna or abscess, cultures negative 2. Immunocompromised state with history of non-Hodgkin lymphoma. - h/o port line infection; s/p Vanco - to return to [facility] for further Tx 3. Fever; resolved - urine culture showed zee albicans - blood culture showed no growth 4. Hx of Hypertension. 5. Hx of gout. 6. Anemia - s/p pRBC 7. DVT ppx - on SCD 8. Low TSH; improving - Dr. Fermin following - no need for levothyroxine per Dr. Fermin 9. Zee UTI - Urine Cx showed zee albicans - On fluconazole 200mg daily for 5 days (05/04 - 05/09) per ID 10. Hypokalemia - potassium replaced per neprho 11. Hypomagnesemia - Mg replaced per nephro 12. 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
--- NOTE | 2020-05-12 11:32 | Hematology/Onc Progress Note ---
Assessment/Plan Assessment/Plan # Leukopenia COVID19++++++++++ --> hep and hiv order as needed --> wbc 4-->3-->2.9->2->4.6--4.1-->3.6-->4.7-->3.6->4.1 --> Neupogen 300 x1 04/21 --> isolation if anc<500 # Non-Hodgkins Lymphoma is s/p chemotherapy in the past --> to return to [facility] for further treatment --> likely for ct/pet as outpatient --> CT Here shows no e/o disease --> imaging has been reviewed thus far --> end date of 04/2020 # Anemia likely of chronic disease -- does not appear to have iron deficiency --> transfuse as needed, tibc and ferritin are cw acd --> hgb 7.8-->8.6-->8.5-->8.4->7.6-->10-->9.9->9.6 --> no hemolysis is noted --> s/p transfusion on admission # Covid 19++ with SIRS (febrile, tachycardic) --> per pulm and id --> CXR with diffuse non-specific inflammatory/infectious process --> s/p Cefepime (04/14 - 04/15) # Hypokalemia --> replete as needed # Hypomagnesia # Chronic Back pain # Full Code # Dvt ppx heparin sq Appreciate consultation and reagan Rn Subjective Allergies: Coded Allergies: No Known Allergies (Unverified , 04/11/20) Subjective Subjective 04/27 reagan rn at bedside, labs are noted, no bleeding, refusing heparin now sq 04/28 labs have been reviewed, is on room air, no bleeding, tachy 04/30 labs pending, no night sweats, meds reviewed, tachy, no night sweats, wants iv iron 05/01 dc planning, meds noted, for labs this am, no new events 05/02 meds reviewed, has been refusing care, continue heparin sq 05/03 labs reviewed, on 2lnc, no bleeding, remains on hep but refusing 05/04 meds ntoed, labs reviewed, no new changes, reagan RN 05/05 meds noted, no bleeding, labs reviewed, no f/c 05/06: no acute events reported, no resp distress 05/07: no resp distress, vss on RA dc planning continues 05/12: no acute events reported. No bleeding. Objective Objective Current Medications Medications (Trade) Dose Ordered Sig/Angelika Route PRN Reason Start Time Stop Time Status Last Admin Dose Admin Acetaminophen (Tylenol) 650 mg Q6H PRN ORAL Mild Pain (Pain Scale 1-3) 05/10/20 17:30 06/09/20 17:29 Acetaminophen (Tylenol) 650 mg Q6H PRN ORAL Temp >100.5 05/10/20 18:00 06/09/20 17:59 Acetaminophen/ Hydrocodone Bitart ([place] 10/325) 1 tab Q6H PRN ORAL Severe Pain (Pain Scale 7-10) 05/10/20 21:00 05/17/20 20:59 05/12/20 08:40 Acetaminophen/ Hydrocodone Bitart ([place] 5/325) 1 tab Q6H PRN ORAL Moderate Pain (Pain Scale 4-6) 05/10/20 18:00 05/17/20 17:59 05/11/20 17:42 Allopurinol (allopurinoL) 300 mg DAILY ORAL 05/12/20 09:00 06/11/20 08:59 05/12/20 08:41 Ascorbic Acid (Vitamin C) 500 mg DAILY ORAL 04/26/20 09:00 05/26/20 08:59 05/12/20 08:39 Baclofen (Lioresal) 10 mg THREE TIMES A DAY ORAL 05/11/20 13:00 06/10/20 12:59 Chlorhexidine Gluconate (Christy-Hex 2%) 1 applic Q24H TOPIC 04/25/20 20:00 07/24/20 19:59 04/30/20 20:46 Docusate Sodium (Colace) 100 mg TWICE A DAY ORAL 04/27/20 09:00 05/20/20 08:59 05/11/20 17:42 Dronabinol (Marinol) 5 mg BID ORAL 05/01/20 09:00 07/30/20 08:59 05/12/20 08:40 Heparin Sodium (Porcine) (Heparin 5000 units/ml) 5,000 units EVERY 8 HOURS SUBQ 04/24/20 22:00 06/08/20 21:59 05/05/20 05:38 Lactulose (Cephulac) 20 gm THREE TIMES A DAY ORAL 04/21/20 13:00 05/21/20 12:59 05/08/20 08:18 Linaclotide (Linzess) 290 mcg BEFORE BREAKFAST ORAL 04/26/20 06:30 07/25/20 06:29 05/12/20 06:19 Magnesium Oxide (Mag-Ox 400mg) 400 mg THREE TIMES A DAY ORAL 04/30/20 13:00 05/30/20 12:59 05/12/20 08:41 Morphine Sulfate (Morphine Sulfate) 2 mg Q3H PRN IVP Severe Pain (Pain Scale 7-10) 05/10/20 18:00 05/17/20 17:59 Morphine Sulfate (Morphine Sulfate) 4 mg Q3H PRN IVP SEVERE BREAKTHRU PAIN 05/10/20 18:00 05/17/20 17:59 Multivitamins (Multivitamins) 1 tab DAILY ORAL 04/26/20 09:00 05/26/20 08:59 05/12/20 08:40 Ondansetron HCl (Zofran) 4 mg Q6H PRN IVP Nausea & Vomiting 04/19/20 13:30 05/19/20 13:29 04/29/20 18:17 Polyethylene Glycol (Miralax) 17 gm DAILY ORAL 04/20/20 09:00 05/20/20 08:59 05/12/20 08:41 Last 24 Hour Vital Signs Date Time Temp Pulse Resp B/P (MAP) Pulse Ox O2 Delivery O2 Flow Rate FiO2 05/12/20 09:10 97.5 05/12/20 08:00 97.4 86 17 105/70 (82) 95 05/12/20 04:00 97.5 95 20 97/68 (78) 97 05/12/20 00:00 98.3 109 18 98/62 (74) 100 05/11/20 21:00 Nasal Cannula 2.0 05/11/20 20:00 98.3 110 19 90/56 (67) 94 05/11/20 19:50 100 Nasal Cannula 2.0 28 05/11/20 18:12 98.8 05/11/20 16:00 98.8 119 19 123/67 (85) 98 05/11/20 13:36 97.6 05/11/20 12:00 97.6 121 20 116/71 (86) 98 05/11/20 10:00 98.1 05/11/20 09:00 Nasal Cannula 2.0 05/11/20 08:00 98.1 94 19 101/64 (76) 94 05/11/20 04:00 98.1 93 18 98/62 (74) 94 05/11/20 00:00 97.9 115 17 106/81 (89) 94 05/10/20 21:00 Nasal Cannula 2.0 05/10/20 20:00 98.2 118 18 120/83 (95) 94 05/10/20 16:00 98.7 103 18 99/63 (75) 96 05/10/20 15:35 98.9 05/10/20 13:34 98.9 05/10/20 12:00 98.9 86 18 94/69 (77) 96 Intake and Output 05/11/20 05/12/20 19:00 07:00 Intake Total 230 ml Output Total 1400 ml 600 ml Balance -1400 ml -370 ml Intake Oral 230 ml Output Urine Total 1400 ml 600 ml # Voids 1 Labs Test 05/10/20 05:25 05/11/20 05:20 05/12/20 06:10 White Blood Count 3.9 K/UL (4.8-10.8) 4.0 K/UL (4.8-10.8) 4.3 K/UL (4.8-10.8) Red Blood Count 2.91 M/UL (4.20-5.40) 2.88 M/UL (4.20-5.40) 2.94 M/UL (4.20-5.40) Hemoglobin 8.1 G/DL (12.0-16.0) 8.2 G/DL (12.0-16.0) 8.3 G/DL (12.0-16.0) Hematocrit 26.7 % (37.0-47.0) 26.4 % (37.0-47.0) 26.5 % (37.0-47.0) Mean Corpuscular Volume 92 FL (80-99) 91 FL (80-99) 90 FL (80-99) Mean Corpuscular Hemoglobin 28.0 PG (27.0-31.0) 28.5 PG (27.0-31.0) 28.2 PG (27.0-31.0) Mean Corpuscular Hemoglobin Concent 30.4 G/DL (32.0-36.0) 31.2 G/DL (32.0-36.0) 31.4 G/DL (32.0-36.0) Red Cell Distribution Width 20.6 % (11.6-14.8) 20.0 % (11.6-14.8) 21.3 % (11.6-14.8) Platelet Count 300 K/UL (150-450) 326 K/UL (150-450) 336 K/UL (150-450) Mean Platelet Volume 5.8 FL (6.5-10.1) 6.1 FL (6.5-10.1) 6.8 FL (6.5-10.1) Neutrophils (%) (Auto) 62.5 % (45.0-75.0) 64.6 % (45.0-75.0) 66.7 % (45.0-75.0) Lymphocytes (%) (Auto) 11.7 % (20.0-45.0) 11.9 % (20.0-45.0) 10.9 % (20.0-45.0) Monocytes (%) (Auto) 12.3 % (1.0-10.0) 12.2 % (1.0-10.0) 11.1 % (1.0-10.0) Eosinophils (%) (Auto) 10.6 % (0.0-3.0) 8.9 % (0.0-3.0) 8.7 % (0.0-3.0) Basophils (%) (Auto) 2.9 % (0.0-2.0) 2.5 % (0.0-2.0) 2.6 % (0.0-2.0) Sodium Level 141 MMOL/L (136-145) 139 MMOL/L (136-145) 143 MMOL/L (136-145) Potassium Level 3.7 MMOL/L (3.5-5.1) 4.4 MMOL/L (3.5-5.1) 4.5 MMOL/L (3.5-5.1) Chloride Level 103 MMOL/L (98-107) 102 MMOL/L (98-107) 107 MMOL/L (98-107) Carbon Dioxide Level 34 MMOL/L (21-32) 33 MMOL/L (21-32) 31 MMOL/L (21-32) Anion Gap 4 mmol/L (5-15) 5 mmol/L (5-15) 5 mmol/L (5-15) Blood Urea Nitrogen 6 mg/dL (7-18) 7 mg/dL (7-18) 10 mg/dL (7-18) Creatinine 0.5 MG/DL (0.55-1.30) 0.6 MG/DL (0.55-1.30) 0.7 MG/DL (0.55-1.30) Estimat Glomerular Filtration Rate > 60 mL/min (>60) > 60 mL/min (>60) > 60 mL/min (>60) Glucose Level 79 MG/DL (74-106) 83 MG/DL (74-106) 93 MG/DL (74-106) Calcium Level 9.8 MG/DL (8.5-10.1) 9.9 MG/DL (8.5-10.1) 10.1 MG/DL (8.5-10.1) Height (Feet): 5 Height (Inches): 7.00 Weight (Pounds): 150 Objective Objective Gen: nad Pulm: ctab, no cwr CV: rrr Abd: soft, nt Ext: no cce Talisha Jacobs MANAGER OF MAINTENANCE May 12, 2020 11:32
[2020-05-12 12:00] VITALS: BP 112/76
--- NOTE | 2020-05-12 12:36 | General Progress Note ---
Subjective ROS Limited/Unobtainable: No Allergies: Coded Allergies: No Known Allergies (Unverified , 04/11/20) Objective Last 24 Hour Vital Signs Date Time Temp Pulse Resp B/P (MAP) Pulse Ox O2 Delivery O2 Flow Rate FiO2 05/12/20 09:10 97.5 05/12/20 08:00 97.4 86 17 105/70 (82) 95 05/12/20 04:00 97.5 95 20 97/68 (78) 97 05/12/20 00:00 98.3 109 18 98/62 (74) 100 05/11/20 21:00 Nasal Cannula 2.0 05/11/20 20:00 98.3 110 19 90/56 (67) 94 05/11/20 19:50 100 Nasal Cannula 2.0 28 05/11/20 18:12 98.8 05/11/20 16:00 98.8 119 19 123/67 (85) 98 05/11/20 13:36 97.6 Intake and Output 05/11/20 05/12/20 19:00 07:00 Intake Total 230 ml Output Total 1400 ml 600 ml Balance -1400 ml -370 ml Intake Oral 230 ml Output Urine Total 1400 ml 600 ml # Voids 1 Laboratory Tests 05/12/20 06:10: White Blood Count 4.3L, Red Blood Count 2.94L, Hemoglobin 8.3L, Hematocrit 26.5L , Mean Corpuscular Volume 90, Mean Corpuscular Hemoglobin 28.2, Mean Corpuscular Hemoglobin Concent 31.4L, Red Cell Distribution Width 21.3H, Platelet Count 336, Mean Platelet Volume 6.8, Neutrophils (%) (Auto) 66.7, Lymphocytes (%) (Auto) 10.9L, Monocytes (%) (Auto) 11.1H, Eosinophils (%) (Auto) 8.7H, Basophils (%) (Auto) 2.6H, Sodium Level 143, Potassium Level 4.5, Chloride Level 107, Carbon Dioxide Level 31, Anion Gap 5, Blood Urea Nitrogen 10, Creatinine 0.7, Estimat Glomerular Filtration Rate > 60, Glucose Level 93, Calcium Level 10.1 Height (Feet): 5 Height (Inches): 7.00 Weight (Pounds): 150 General Appearance: no apparent distress EENT: normal ENT inspection Neck: supple Cardiovascular: normal rate Respiratory/Chest: decreased breath sounds Abdomen: normal bowel sounds, non tender, soft Extremities: non-tender Assessment/Plan Status: stable, progressing Assessment/Plan: iron def anemia mild elevated CEA lymphoma on chemo covid positive neg stool ob iv iron fu H&H needs out patient fu for colonoscopy fu oncology CT reviewed colace miralax lactulose Patrick Feliciano MD May 12, 2020 12:36
--- NOTE | 2020-05-12 13:04 | NUR ---
NURSE NOTES: Called Dr. Dykes and left a voicemail regarding patient refusal of heparin, lactulose, and magnesium ox scheduled. Awaiting callback.
--- NOTE | 2020-05-12 14:11 | NUR ---
CASE MANAGEMENT:REVIEW SI;LT HIP FRACTURE. JIM. ANEMIA. 98.1 95 20 97/68 95% 2L NC H/H 8.3/26.5 IS;NORCO PO Q6 PRN MARINOL PO BID MAG-OX PO TID LINZESS PO QD HEPARIN SQ Q8 LACTULOSE PO TID MED SURG STATUS DCP; SNF PLACEMENT
--- NOTE | 2020-05-12 15:23 | Nephrology Progress Note ---
Assessment/Plan Plan #acute kidney injury likely due to vanco toxicity #hypokalemia- #hypomagnesemia #Acute on chronic anemia #h/p non- hodgkins lymphoma #possible sepsis #+ COVID #Femoral intertrochanteric hip fracture. - replete k and mag - Pulmonary eval - prbc transfusion prn - replete lytes - hemo-onc eval - ID eval - monitor CBC - avoid nephrotoxins - ortho eval - spine eval for L3 acute on chronic bone infarct, less likely neoplasm or infection? times spent 65 min Subjective Subjective Cr better today mag and K low repleted hip fracture noted ortho consulted Impression: Minimal distention of the rectum with feces, could represent mild rectal fecal impaction. Equivocal slight thickening of the rectal wall and stranding of the perirectal fat, if real could indicate mild stercoral proctitis Comminuted fracture of the left femoral head, neck, and intertrochanteric region , ununited. Possibly acute, but abundant soft tissues surrounding the fracture area raises possibility that this could be chronic. Correlate with clinical findings Other findings as noted, including evidence of old T12 vertebral body compression fracture and prior vertebral augmentation procedure, Morales catheter, subcentimeter low-attenuation lesions which probably represent renal cysts, small sliding-type hiatal hernia Impression: Unusual signal abnormality of the posterolateral aspect of the L3 vertebral body on the right. This appears to be confined to the vertebral body marrow space. Prior CT scan in retrospect demonstrates sclerotic areas in the same location. Most likely differential consideration is an atypical hemangioma. Other possibilities include acute on chronic bone infarct, less likely neoplasm or infection No other unusual contrast enhancement. No findings to suggest discitis or epidural abscess. Objective Objective Last 24 Hour Vital Signs Date Time Temp Pulse Resp B/P (MAP) Pulse Ox O2 Delivery O2 Flow Rate FiO2 05/12/20 14:07 98.1 05/12/20 12:00 98.1 80 18 112/76 (88) 95 05/12/20 09:10 97.5 05/12/20 09:00 Nasal Cannula 2.0 05/12/20 08:22 98 Nasal Cannula 2.0 28 05/12/20 08:00 97.4 86 17 105/70 (82) 95 05/12/20 04:00 97.5 95 20 97/68 (78) 97 05/12/20 00:00 98.3 109 18 98/62 (74) 100 05/11/20 21:00 Nasal Cannula 2.0 05/11/20 20:00 98.3 110 19 90/56 (67) 94 05/11/20 19:50 100 Nasal Cannula 2.0 28 05/11/20 18:12 98.8 05/11/20 16:00 98.8 119 19 123/67 (85) 98 Intake and Output 05/11/20 05/12/20 19:00 07:00 Intake Total 230 ml Output Total 1400 ml 600 ml Balance -1400 ml -370 ml Intake Oral 230 ml Output Urine Total 1400 ml 600 ml # Voids 1 Laboratory Tests 05/12/20 06:10: White Blood Count 4.3L, Red Blood Count 2.94L, Hemoglobin 8.3L, Hematocrit 26.5L , Mean Corpuscular Volume 90, Mean Corpuscular Hemoglobin 28.2, Mean Corpuscular Hemoglobin Concent 31.4L, Red Cell Distribution Width 21.3H, Platelet Count 336, Mean Platelet Volume 6.8, Neutrophils (%) (Auto) 66.7, Lymphocytes (%) (Auto) 10.9L, Monocytes (%) (Auto) 11.1H, Eosinophils (%) (Auto) 8.7H, Basophils (%) (Auto) 2.6H, Sodium Level 143, Potassium Level 4.5, Chloride Level 107, Carbon Dioxide Level 31, Anion Gap 5, Blood Urea Nitrogen 10, Creatinine 0.7, Estimat Glomerular Filtration Rate > 60, Glucose Level 93, Calcium Level 10.1 Height (Feet): 5 Height (Inches): 7.00 Weight (Pounds): 150 Objective General Appearance: no apparent distress EENT: PERRL/EOMI Neck: non-tender, normal alignment Cardiovascular: normal peripheral pulses, normal rate Respiratory/Chest: chest wall non-tender, lungs clear Abdomen: normal bowel sounds, non tender Neurologic: alert, oriented x 3 Kallie Dykes M.D. May 12, 2020 15:23
--- NOTE | 2020-05-12 15:35 | Cardiac Electrophysiology PN ---
Assessment/Plan Assessment/Plan 1. Sinus tachycardia due to sepsis, anemia and COVID. 2. COVID pneumonia. Now off isolation and on RA 3. Hypokalemia. 4. Hypomagnesemia. 5. History of non-Hodgkin lymphoma. 6. Leukopenia and anemia. FU Dr. Valencia S/P PRBC 7. Fever. 8. Low Mg replaced 9. Left Hip Fx; Likely Chronic > Patient states she fell 5 months ago. Also had hard fall on coccyx in 2018. Minimal pain in left hip Per Dr. Payan. Given patient bed bound risks > benefits. LUKE RN DC to [facility] pending Subjective Subjective No events. Covid isolation DCed. On RA. Awaiting SNIF placement Objective Last 24 Hour Vital Signs Date Time Temp Pulse Resp B/P (MAP) Pulse Ox O2 Delivery O2 Flow Rate FiO2 05/12/20 14:07 98.1 05/12/20 12:00 98.1 80 18 112/76 (88) 95 05/12/20 09:10 97.5 05/12/20 09:00 Nasal Cannula 2.0 05/12/20 08:22 98 Nasal Cannula 2.0 28 05/12/20 08:00 97.4 86 17 105/70 (82) 95 05/12/20 04:00 97.5 95 20 97/68 (78) 97 05/12/20 00:00 98.3 109 18 98/62 (74) 100 05/11/20 21:00 Nasal Cannula 2.0 05/11/20 20:00 98.3 110 19 90/56 (67) 94 05/11/20 19:50 100 Nasal Cannula 2.0 28 05/11/20 18:12 98.8 05/11/20 16:00 98.8 119 19 123/67 (85) 98 Intake and Output 05/11/20 05/12/20 19:00 07:00 Intake Total 230 ml Output Total 1400 ml 600 ml Balance -1400 ml -370 ml Intake Oral 230 ml Output Urine Total 1400 ml 600 ml # Voids 1 Laboratory Tests Test 05/12/20 06:10 White Blood Count 4.3 K/UL (4.8-10.8) L Red Blood Count 2.94 M/UL (4.20-5.40) L Hemoglobin 8.3 G/DL (12.0-16.0) L Hematocrit 26.5 % (37.0-47.0) L Mean Corpuscular Volume 90 FL (80-99) Mean Corpuscular Hemoglobin 28.2 PG (27.0-31.0) Mean Corpuscular Hemoglobin Concent 31.4 G/DL (32.0-36.0) L Red Cell Distribution Width 21.3 % (11.6-14.8) H Platelet Count 336 K/UL (150-450) Mean Platelet Volume 6.8 FL (6.5-10.1) Neutrophils (%) (Auto) 66.7 % (45.0-75.0) Lymphocytes (%) (Auto) 10.9 % (20.0-45.0) L Monocytes (%) (Auto) 11.1 % (1.0-10.0) H Eosinophils (%) (Auto) 8.7 % (0.0-3.0) H Basophils (%) (Auto) 2.6 % (0.0-2.0) H Sodium Level 143 MMOL/L (136-145) Potassium Level 4.5 MMOL/L (3.5-5.1) Chloride Level 107 MMOL/L (98-107) Carbon Dioxide Level 31 MMOL/L (21-32) Anion Gap 5 mmol/L (5-15) Blood Urea Nitrogen 10 mg/dL (7-18) Creatinine 0.7 MG/DL (0.55-1.30) Estimat Glomerular Filtration Rate > 60 mL/min (>60) Glucose Level 93 MG/DL (74-106) Calcium Level 10.1 MG/DL (8.5-10.1) Objective HEAD AND NECK: No JVD. LUNGS: Coarse rhonchi. CARDIOVASCULAR: Regular S1 and S2 with no gallop or murmur. ABDOMEN: Soft. EXTREMITIES: No pitting edema. Ehsan Wan MD May 12, 2020 15:35
[2020-05-12 16:00] VITALS: BP 119/67
--- NOTE | 2020-05-12 16:54 | NUR ---
*-*DISCHARGE PLANNING*-* PATIENT HAS BEEN REFERRED TO: [facility] P: [phone] S/W FLORESITA, WILL CALL BACK AFTER REVIEW. [facility] P: [phone] S/W JOYA, CANNOT ACCEPT DUE TO INSURANCE. [facility] P: [phone] S/W MARSHALL, ONLY ACCEPTING NEGATIVE COVID PATIENTS [facility] P: [phone] S/W YASMIN, FOLLOW UP ON FRIDAY ADMISSION NOT AVAILABLE. [facility] P: [phone] S/W ABIMAEL, CANNOT ACCEPT DUE TO CEMO PATIENT, CANNOT ACCOMMODATE PATIENT. [facility] P: [phone] S/W BILL NO BEDS AVAILABLE. [facility] P: [phone] S/W EMIR, NO LOCK DOWN.
--- NOTE | 2020-05-12 19:05 | NUR ---
NURSE HAND-OFF REPORT: Important Events on Shift: BMx1, refused medications, called and left voicemail to MD, no answer/callback Patient Status: stable condition, full code Diet: [] Pending Orders: [] Pending Results/Labs:[] Pending MD notification:[] Latest Vital Signs: Temperature 98.1 , Pulse 83 , B/P 119 /67 , Respiratory Rate 18 , O2 SAT 96 , Nasal Cannula, O2 Flow Rate 2.0 . Vital Sign Comment: [] EKG Rhythm: Rhythm change?: MD Notified?: - MD Response: Latest Urbina Fall Score: 55 Fall Risk: High Risk Safety Measures: Call light Within Reach, Bed Alarm Zone 1, Side Rails Side Rails x3, Bed position Low and Locked. Fall Precautions: Yellow Gown Door Sign Patient Fall Education Report given to Dino Carr RN.
[2020-05-12] MEDS: Dyna-Hex 2% Top Sol 2oz TOPIC SCH (19:32)
--- NOTE | 2020-05-12 19:45 | NUR ---
NURSE NOTES: Received report from Rosalia LUCIA. Patient is awake, alert and oriented x4. On room air, breathing is even and unlabored. Complains of pain 10/10 hip pain. Morales intact and draining well. IV right hand infiltrated, and discontinued. Bed low and locked. Call light within reach.
[2020-05-12 20:00] VITALS: BP 97/60
[2020-05-13] VITALS: BP 112/75
[2020-05-13 04:00] VITALS: BP 93/70
[2020-05-13] MEDS: Heparin 5000 units/ml inj SUBQ SCH ×3 (05:22→22:00)
--- NOTE | 2020-05-13 07:14 | General Progress Note ---
Subjective ROS Limited/Unobtainable: Yes Allergies: Coded Allergies: No Known Allergies (Unverified , 04/11/20) Objective Last 24 Hour Vital Signs Date Time Temp Pulse Resp B/P (MAP) Pulse Ox O2 Delivery O2 Flow Rate FiO2 05/13/20 04:00 97.9 93 18 93/70 (78) 95 05/13/20 00:00 98.4 110 18 112/75 (87) 96 05/12/20 21:00 Room Air 05/12/20 20:19 96 Nasal Cannula 2.0 28 05/12/20 20:00 98.1 109 18 97/60 (72) 96 05/12/20 18:04 98.1 05/12/20 16:00 98.6 83 18 119/67 (84) 96 05/12/20 14:07 98.1 05/12/20 12:00 98.1 80 18 112/76 (88) 95 05/12/20 09:10 97.5 05/12/20 09:00 Nasal Cannula 2.0 05/12/20 08:22 98 Nasal Cannula 2.0 28 05/12/20 08:00 97.4 86 17 105/70 (82) 95 Intake and Output 05/12/20 05/13/20 19:00 07:00 Intake Total 600 ml 1100 ml Output Total 800 ml 1400 ml Balance -200 ml -300 ml Intake Oral 1100 ml Other 600 ml Output Urine Total 800 ml 1400 ml Height (Feet): 5 Height (Inches): 7.00 Weight (Pounds): 150 General Appearance: alert EENT: normal ENT inspection Neck: supple Cardiovascular: normal rate Respiratory/Chest: decreased breath sounds Abdomen: hypoactive bowel sounds Extremities: non-tender Assessment/Plan Status: stable, progressing Assessment/Plan: iron def anemia mild elevated CEA lymphoma on chemo covid positive neg stool ob iv iron, completed fu H&H needs out patient fu for colonoscopy fu oncology CT reviewed colace miralax lactulose linzess beulahnol patient encouraged to take her meds Patrick Carter MD May 13, 2020 07:13
--- NOTE | 2020-05-13 07:30 | NUR ---
NURSE HAND-OFF: Important Events on Shift: Pain management Patient Status: Stable Diet: Regular Pending Orders: [] Pending Results/Labs:[] Pending MD notification:[] Latest Vital Signs: Temperature 97.9 , Pulse 93 , B/P 93 /70 , Respiratory Rate 18 , O2 SAT 95 , Nasal Cannula, O2 Flow Rate 2.0 . Vital Sign Comment: VS stable Latest Urbina Fall Score: 55 Fall Risk: High Risk Safety Measures: Call light Within Reach, Bed Alarm Zone 1, Side Rails Side Rails x3, Bed position Low and Locked. Fall Precautions: Yellow Gown Door Sign Patient Fall Education Report given to Kvng/Jayla LUCIA..
--- NOTE | 2020-05-13 07:30 | NUR ---
NURSE HAND-OFF: Important Events on Shift: Pain management, Patient Status: [] Diet: [] Pending Orders: [] Pending Results/Labs:[] Pending MD notification:[] Latest Vital Signs: Temperature 97.9 , Pulse 93 , B/P 93 /70 , Respiratory Rate 18 , O2 SAT 95 , Nasal Cannula, O2 Flow Rate 2.0 . Vital Sign Comment: [] Latest Urbina Fall Score: 55 Fall Risk: High Risk Safety Measures: Call light Within Reach, Bed Alarm Zone 1, Side Rails Side Rails x3, Bed position Low and Locked. Fall Precautions: Yellow Gown Door Sign Patient Fall Education Report given to [].
--- NOTE | 2020-05-13 07:35 | NUR ---
NURSE NOTES: received patient from REA Sun. patient in bed A&Ox4, verbally responsive. no respiratory distress noted on 2L via NC. pain on back 11/11. no IV for now. need a new IV. name band in place. para plagic lower extremities. turn and reposition. f/c draining. yellow. no hematuria noted. bed in the lowest position and locked. call light within reach. alarm on.
[2020-05-13 08:00] VITALS: BP 105/64
[2020-05-13] MEDS: Miralax 17gm pkt ORAL SCH (08:23)
[2020-05-13] MEDS: Magnesium Oxide 400mg tab ORAL SCH ×3 (08:23→17:03)
[2020-05-13] MEDS: Dronabinol 2.5mg Cap ORAL SCH ×2 (08:23→17:04)
[2020-05-13] MEDS: Lactulose 20gm/30ml UDC ORAL SCH ×3 (08:24→17:04)
[2020-05-13] MEDS: Docusate 100mg cap ORAL SCH ×2 (08:24→17:04)
[2020-05-13] MEDS: Ascorbic Acid 500mg tab ORAL SCH (08:24)
--- NOTE | 2020-05-13 08:29 | General Progress Note ---
Subjective Constitutional: Reports: weakness Allergies: Coded Allergies: No Known Allergies (Unverified , 04/11/20) Subjective sleepy calm Objective Last 24 Hour Vital Signs Date Time Temp Pulse Resp B/P (MAP) Pulse Ox O2 Delivery O2 Flow Rate FiO2 05/13/20 04:00 97.9 93 18 93/70 (78) 95 05/13/20 00:00 98.4 110 18 112/75 (87) 96 05/12/20 21:00 Room Air 05/12/20 20:19 96 Nasal Cannula 2.0 28 05/12/20 20:00 98.1 109 18 97/60 (72) 96 05/12/20 18:04 98.1 05/12/20 16:00 98.6 83 18 119/67 (84) 96 05/12/20 14:07 98.1 05/12/20 12:00 98.1 80 18 112/76 (88) 95 05/12/20 09:10 97.5 05/12/20 09:00 Nasal Cannula 2.0 Intake and Output 05/12/20 05/13/20 19:00 07:00 Intake Total 600 ml 1100 ml Output Total 800 ml 1400 ml Balance -200 ml -300 ml Intake Oral 1100 ml Other 600 ml Output Urine Total 800 ml 1400 ml Height (Feet): 5 Height (Inches): 7.00 Weight (Pounds): 150 General Appearance: lethargic EENT: normal ENT inspection Neck: normal alignment Cardiovascular: normal peripheral pulses, normal rate, regular rhythm Respiratory/Chest: chest wall non-tender, lungs clear, normal breath sounds Abdomen: normal bowel sounds, non tender, soft Extremities: normal inspection Edema: no edema noted Arm (L), no edema noted Arm (R), no edema noted Leg (L), no edema noted Leg (R), no edema noted Pedal (L), no edema noted Pedal (R), no edema noted Generalized Neurologic: motor weakness Skin: normal pigmentation, warm/dry Assessment/Plan Problem List: (1) Lymphoma ICD Codes: C85.90 - Non-Hodgkin lymphoma, unspecified, unspecified site SNOMED: 906776427 (2) Hip fracture ICD Codes: S72.009A - Fracture of unspecified part of neck of unspecified femur, initial encounter for closed fracture SNOMED: 554831531 (3) Anemia ICD Codes: D64.9 - Anemia, unspecified SNOMED: 238047018 Qualifiers: Qualified Codes: D64.9 - Anemia, unspecified (4) Abnormal thyroid function test ICD Codes: R94.6 - Abnormal results of thyroid function studies SNOMED: 834213210 (5) JIM (acute kidney injury) ICD Codes: N17.9 - Acute kidney failure, unspecified SNOMED: 9452291, 93450609 (6) COVID-19 ICD Codes: U07.1 - COVID-19 SNOMED: 115076795 Status: stable, progressing Assessment/Plan: o2 pulm tx abx gi heme eval cbc bmp am dc plan to snf Spencer Lpoez DO May 13, 2020 08:29
[2020-05-13 08:41] LABS: BASOPHILS % (AUTO) 3.3 % (0.0-2.0); EOSINOPHILS % (AUTO) 9.1 % (0.0-3.0); HEMATOCRIT 30.3 % (37.0-47.0); HEMOGLOBIN 9.4 G/DL (12.0-16.0); LYMPHOCYTES % (AUTO) 13.4 % (20.0-45.0); MEAN CORPUSCULAR VOLUME 91 FL (80-99); MONOCYTES % (AUTO) 10.7 % (1.0-10.0); NEUTROPHILS % (AUTO) 63.4 % (45.0-75.0); PLATELET COUNT 355 K/UL (150-450); RED BLOOD COUNT 3.35 M/UL (4.20-5.40); RED CELL DISTRIBUTION WIDTH 21.8 % (11.6-14.8); WHITE BLOOD COUNT 4.8 K/UL (4.8-10.8)
[2020-05-13 08:55] LABS: ANION GAP 8 mmol/L (5-15); BLOOD UREA NITROGEN 8 mg/dL (7-18); CALCIUM 10.5 MG/DL (8.5-10.1); CARBON DIOXIDE 29 MMOL/L (21-32); CHLORIDE 104 MMOL/L (98-107); CREATININE 0.5 MG/DL (0.55-1.30); POTASSIUM 4.3 MMOL/L (3.5-5.1); SODIUM 141 MMOL/L (136-145)
[2020-05-13] MEDS: HYDROcodone/Acetamin 10/325 tab ORAL PRN ×2 (09:59→17:04)
[2020-05-13 12:00] VITALS: BP 105/69
--- NOTE | 2020-05-13 12:10 | Pulmonology Progress Note ---
Subjective ROS Limited/Unobtainable: Yes Interval Events: None new Constitutional: Reports: fever - resolved, fatigue HEENT: Repors: no symptoms Respiratory: Reports: no symptoms, dry cough Cardiovascular: Reports: no symptoms Gastrointestinal/Abdominal: Denies: nausea, vomiting, diarrhea Psychiatric: Denies: depression Skin: Denies: rash Musculoskeletal: Denies: pain Allergies: Coded Allergies: No Known Allergies (Unverified , 04/11/20) All Systems: reviewed and negative except above Objective Last 24 Hour Vital Signs Date Time Temp Pulse Resp B/P (MAP) Pulse Ox O2 Delivery O2 Flow Rate FiO2 05/13/20 09:00 Room Air 05/13/20 08:00 97.5 113 18 105/64 (78) 98 05/13/20 04:00 97.9 93 18 93/70 (78) 95 05/13/20 00:00 98.4 110 18 112/75 (87) 96 05/12/20 21:00 Room Air 05/12/20 20:19 96 Nasal Cannula 2.0 28 05/12/20 20:00 98.1 109 18 97/60 (72) 96 05/12/20 18:04 98.1 05/12/20 16:00 98.6 83 18 119/67 (84) 96 05/12/20 14:07 98.1 Intake and Output 05/12/20 05/13/20 19:00 07:00 Intake Total 600 ml 1100 ml Output Total 800 ml 1400 ml Balance -200 ml -300 ml Intake Oral 1100 ml Other 600 ml Output Urine Total 800 ml 1400 ml General Appearance: WD/WN, no acute distress HEENT: normocephalic, atraumatic Respiratory: lungs clear Cardiovascular: normal rate, regular rhythm Abdomen: soft, non tender Genitourinary: other - Morales Extremities: no edema Laboratory Tests 05/13/20 08:00: White Blood Count 4.8, Red Blood Count 3.35L, Hemoglobin 9.4L, Hematocrit 30.3L, Mean Corpuscular Volume 91, Mean Corpuscular Hemoglobin 28.0, Mean Corpuscular Hemoglobin Concent 30.9L, Red Cell Distribution Width 21.8H, Platelet Count 355, Mean Platelet Volume 6.6, Neutrophils (%) (Auto) 63.4, Lymphocytes (%) (Auto) 13.4L, Monocytes (%) (Auto) 10.7H, Eosinophils (%) (Auto) 9.1H, Basophils (%) (Auto) 3.3H 05/13/20 08:10: Sodium Level 141, Potassium Level 4.3, Chloride Level 104, Carbon Dioxide Level 29, Anion Gap 8, Blood Urea Nitrogen 8, Creatinine 0.5L, Estimat Glomerular Filtration Rate > 60, Glucose Level 93, Calcium Level 10.5H Current Medications Medications (Trade) Dose Ordered Sig/Angelika Route PRN Reason Start Time Stop Time Status Last Admin Dose Admin Acetaminophen (Tylenol) 650 mg Q6H PRN ORAL Mild Pain (Pain Scale 1-3) 05/10/20 17:30 06/09/20 17:29 05/12/20 13:37 Acetaminophen (Tylenol) 650 mg Q6H PRN ORAL Temp >100.5 05/10/20 18:00 06/09/20 17:59 Acetaminophen/ Hydrocodone Bitart (Almo 10/325) 1 tab Q6H PRN ORAL Severe Pain (Pain Scale 7-10) 05/10/20 21:00 05/17/20 20:59 05/13/20 09:59 Acetaminophen/ Hydrocodone Bitart (Almo 5/325) 1 tab Q6H PRN ORAL Moderate Pain (Pain Scale 4-6) 05/10/20 18:00 05/17/20 17:59 05/11/20 17:42 Allopurinol (allopurinoL) 300 mg DAILY ORAL 05/12/20 09:00 06/11/20 08:59 05/13/20 08:23 Ascorbic Acid (Vitamin C) 500 mg DAILY ORAL 04/26/20 09:00 05/26/20 08:59 05/13/20 08:24 Baclofen (Lioresal) 10 mg THREE TIMES A DAY ORAL 05/11/20 13:00 06/10/20 12:59 Chlorhexidine Gluconate (Christy-Hex 2%) 1 applic Q24H TOPIC 04/25/20 20:00 07/24/20 19:59 04/30/20 20:46 Docusate Sodium (Colace) 100 mg TWICE A DAY ORAL 04/27/20 09:00 05/20/20 08:59 05/13/20 08:24 Dronabinol (Marinol) 5 mg BID ORAL 05/01/20 09:00 07/30/20 08:59 05/13/20 08:23 Heparin Sodium (Porcine) (Heparin 5000 units/ml) 5,000 units EVERY 8 HOURS SUBQ 04/24/20 22:00 06/08/20 21:59 05/05/20 05:38 Lactulose (Cephulac) 20 gm THREE TIMES A DAY ORAL 04/21/20 13:00 05/21/20 12:59 05/08/20 08:18 Linaclotide (Linzess) 290 mcg BEFORE BREAKFAST ORAL 04/26/20 06:30 07/25/20 06:29 05/13/20 05:38 Magnesium Oxide (Mag-Ox 400mg) 400 mg THREE TIMES A DAY ORAL 04/30/20 13:00 05/30/20 12:59 05/13/20 08:23 Morphine Sulfate (Morphine Sulfate) 2 mg Q3H PRN IVP Severe Pain (Pain Scale 7-10) 05/10/20 18:00 05/17/20 17:59 Morphine Sulfate (Morphine Sulfate) 4 mg Q3H PRN IVP SEVERE BREAKTHRU PAIN 05/10/20 18:00 05/17/20 17:59 Multivitamins (Multivitamins) 1 tab DAILY ORAL 04/26/20 09:00 05/26/20 08:59 05/13/20 08:23 Ondansetron HCl (Zofran) 4 mg Q6H PRN IVP Nausea & Vomiting 04/19/20 13:30 05/19/20 13:29 04/29/20 18:17 Polyethylene Glycol (Miralax) 17 gm DAILY ORAL 04/20/20 09:00 05/20/20 08:59 05/13/20 08:23 Assessment/Plan Assessment/Plan Assessment: 1. COVID-19 infection Resolved 2.Hx non-Hodgkin lymphoma. 4. Hx of Hypertension. 5. Hx of gout. 6. Anemia 7. DVT ppx 8. 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
--- NOTE | 2020-05-13 13:24 | Nephrology Progress Note ---
Assessment/Plan Plan #acute kidney injury likely due to vanco toxicity #hypokalemia- #hypomagnesemia #Acute on chronic anemia #h/p non- hodgkins lymphoma #possible sepsis #+ COVID #Femoral intertrochanteric hip fracture. - replete k and mag - Pulmonary eval - prbc transfusion prn - replete lytes - hemo-onc eval - ID eval - monitor CBC - avoid nephrotoxins - ortho eval - spine eval for L3 acute on chronic bone infarct, less likely neoplasm or infection? times spent 65 min Subjective Subjective Cr better today mag and K low repleted hip fracture noted ortho consulted Impression: Minimal distention of the rectum with feces, could represent mild rectal fecal impaction. Equivocal slight thickening of the rectal wall and stranding of the perirectal fat, if real could indicate mild stercoral proctitis Comminuted fracture of the left femoral head, neck, and intertrochanteric region , ununited. Possibly acute, but abundant soft tissues surrounding the fracture area raises possibility that this could be chronic. Correlate with clinical findings Other findings as noted, including evidence of old T12 vertebral body compression fracture and prior vertebral augmentation procedure, Morales catheter, subcentimeter low-attenuation lesions which probably represent renal cysts, small sliding-type hiatal hernia Impression: Unusual signal abnormality of the posterolateral aspect of the L3 vertebral body on the right. This appears to be confined to the vertebral body marrow space. Prior CT scan in retrospect demonstrates sclerotic areas in the same location. Most likely differential consideration is an atypical hemangioma. Other possibilities include acute on chronic bone infarct, less likely neoplasm or infection No other unusual contrast enhancement. No findings to suggest discitis or epidural abscess. Objective Objective Last 24 Hour Vital Signs Date Time Temp Pulse Resp B/P (MAP) Pulse Ox O2 Delivery O2 Flow Rate FiO2 05/13/20 12:00 98.2 105 18 105/69 (81) 97 05/13/20 09:00 Room Air 05/13/20 08:00 97.5 113 18 105/64 (78) 98 05/13/20 04:00 97.9 93 18 93/70 (78) 95 05/13/20 00:00 98.4 110 18 112/75 (87) 96 05/12/20 21:00 Room Air 05/12/20 20:19 96 Nasal Cannula 2.0 28 05/12/20 20:00 98.1 109 18 97/60 (72) 96 05/12/20 18:04 98.1 05/12/20 16:00 98.6 83 18 119/67 (84) 96 05/12/20 14:07 98.1 Intake and Output 05/12/20 05/13/20 19:00 07:00 Intake Total 600 ml 1100 ml Output Total 800 ml 1400 ml Balance -200 ml -300 ml Intake Oral 1100 ml Other 600 ml Output Urine Total 800 ml 1400 ml Laboratory Tests 05/13/20 08:00: White Blood Count 4.8, Red Blood Count 3.35L, Hemoglobin 9.4L, Hematocrit 30.3L, Mean Corpuscular Volume 91, Mean Corpuscular Hemoglobin 28.0, Mean Corpuscular Hemoglobin Concent 30.9L, Red Cell Distribution Width 21.8H, Platelet Count 355, Mean Platelet Volume 6.6, Neutrophils (%) (Auto) 63.4, Lymphocytes (%) (Auto) 13.4L, Monocytes (%) (Auto) 10.7H, Eosinophils (%) (Auto) 9.1H, Basophils (%) (Auto) 3.3H 05/13/20 08:10: Sodium Level 141, Potassium Level 4.3, Chloride Level 104, Carbon Dioxide Level 29, Anion Gap 8, Blood Urea Nitrogen 8, Creatinine 0.5L, Estimat Glomerular Filtration Rate > 60, Glucose Level 93, Calcium Level 10.5H Height (Feet): 5 Height (Inches): 7.00 Weight (Pounds): 150 Objective General Appearance: no apparent distress EENT: PERRL/EOMI Neck: non-tender, normal alignment Cardiovascular: normal peripheral pulses, normal rate Respiratory/Chest: chest wall non-tender, lungs clear Abdomen: normal bowel sounds, non tender Neurologic: alert, oriented x 3 Kallie Dykes M.D. May 13, 2020 13:24
[2020-05-13 16:00] VITALS: BP 100/62
--- NOTE | 2020-05-13 17:52 | NUR ---
NURSE NOTES: patient does not have IV site. removed d/t infiltrating and refused reinsertion. Patient does not have IV medications except PRN. notified Dr. Zavala is aware.
--- NOTE | 2020-05-13 19:10 | NUR ---
NURSE NOTES: Received report from REA Calderon. Pt is A&Ox4 in bed. Side rails up x3, call light within reach. Pt had IV infiltrated and removed this morning and pt refused to get a new one inserted. is aware. Will continue to monitor.
--- NOTE | 2020-05-13 19:13 | NUR ---
NURSE HAND-OFF: Important Events on Shift: Pain management. wound care. Patient Status: stable Diet: regualr Pending Orders: n/a Pending Results/Labs:n/a Pending MD notification:n/a Latest Vital Signs: Temperature 99.3 , Pulse 118 , B/P 100 /62 , Respiratory Rate 18 , O2 SAT 96 , Nasal Cannula, O2 Flow Rate 2.0 . Vital Sign Comment: stable,chronic Tachy Latest [place]rb[place] Fall Score: 55 Fall Risk: High Risk Safety Measures: Call light Within Reach, Bed Alarm Zone 1, Side Rails Side Rails x3, Bed position Low and Locked. Fall Precautions: Yellow Gown Door Sign Patient Fall Education Report given to REA Kam.
[2020-05-13 20:00] VITALS: BP 109/68
[2020-05-13] MEDS: Dyna-Hex 2% Top Sol 2oz TOPIC SCH (20:00)
--- NOTE | 2020-05-13 21:47 | Cardiac Electrophysiology PN ---
Assessment/Plan Assessment/Plan 1. Sinus tachycardia due to sepsis, anemia and COVID. 2. COVID pneumonia. Now off isolation and on RA 3. Hypokalemia. 4. Hypomagnesemia. 5. History of non-Hodgkin lymphoma. 6. Leukopenia and anemia. FU Dr. Valencia S/P PRBC 7. Fever. 8. Low Mg replaced 9. Left Hip Fx; Likely Chronic > Patient states she fell 5 months ago. Also had hard fall on coccyx in 2018. Minimal pain in left hip Per Dr. Payan. Given patient bed bound risks > benefits. LUKE RN DC to SNIF pending Subjective Subjective No events. Off Covid isolation. On RA. Awaiting SNIF placement Objective Last 24 Hour Vital Signs Date Time Temp Pulse Resp B/P (MAP) Pulse Ox O2 Delivery O2 Flow Rate FiO2 05/13/20 20:00 97.5 111 18 109/68 (82) 98 05/13/20 19:32 96 Nasal Cannula 2.0 28 05/13/20 16:00 99.3 118 18 100/62 (75) 96 05/13/20 12:00 98.2 105 18 105/69 (81) 97 05/13/20 09:00 Room Air 05/13/20 08:00 97.5 113 18 105/64 (78) 98 05/13/20 04:00 97.9 93 18 93/70 (78) 95 05/13/20 00:00 98.4 110 18 112/75 (87) 96 Intake and Output 05/12/20 05/13/20 19:00 07:00 Intake Total 600 ml 1100 ml Output Total 800 ml 1400 ml Balance -200 ml -300 ml Intake Oral 1100 ml Other 600 ml Output Urine Total 800 ml 1400 ml Laboratory Tests Test 05/13/20 08:00 05/13/20 08:10 White Blood Count 4.8 K/UL (4.8-10.8) Red Blood Count 3.35 M/UL (4.20-5.40) L Hemoglobin 9.4 G/DL (12.0-16.0) L Hematocrit 30.3 % (37.0-47.0) L Mean Corpuscular Volume 91 FL (80-99) Mean Corpuscular Hemoglobin 28.0 PG (27.0-31.0) Mean Corpuscular Hemoglobin Concent 30.9 G/DL (32.0-36.0) L Red Cell Distribution Width 21.8 % (11.6-14.8) H Platelet Count 355 K/UL (150-450) Mean Platelet Volume 6.6 FL (6.5-10.1) Neutrophils (%) (Auto) 63.4 % (45.0-75.0) Lymphocytes (%) (Auto) 13.4 % (20.0-45.0) L Monocytes (%) (Auto) 10.7 % (1.0-10.0) H Eosinophils (%) (Auto) 9.1 % (0.0-3.0) H Basophils (%) (Auto) 3.3 % (0.0-2.0) H Sodium Level 141 MMOL/L (136-145) Potassium Level 4.3 MMOL/L (3.5-5.1) Chloride Level 104 MMOL/L (98-107) Carbon Dioxide Level 29 MMOL/L (21-32) Anion Gap 8 mmol/L (5-15) Blood Urea Nitrogen 8 mg/dL (7-18) Creatinine 0.5 MG/DL (0.55-1.30) L Estimat Glomerular Filtration Rate > 60 mL/min (>60) Glucose Level 93 MG/DL (74-106) Calcium Level 10.5 MG/DL (8.5-10.1) H Objective HEAD AND NECK: No JVD. LUNGS: Coarse rhonchi. CARDIOVASCULAR: Regular S1 and S2 with no gallop or murmur. ABDOMEN: Soft. EXTREMITIES: No pitting edema. Ehsan Wan MD May 13, 2020 21:46
[2020-05-14] VITALS: BP 107/66
[2020-05-14] MEDS: HYDROcodone/Acetamin 10/325 tab ORAL PRN ×3 (01:51→22:03)
[2020-05-14 04:00] VITALS: BP_SYST 100; BP_SYST 107; BP_DIAS 62; BP_DIAS 66
[2020-05-14] MEDS: HYDROcodone/Acetamin 5/325 tab ORAL PRN ×2 (05:35→15:57)
[2020-05-14] MEDS: Heparin 5000 units/ml inj SUBQ SCH ×3 (05:45→21:22)
--- NOTE | 2020-05-14 06:49 | General Progress Note ---
Subjective ROS Limited/Unobtainable: Yes Allergies: Coded Allergies: No Known Allergies (Unverified , 04/11/20) Objective Last 24 Hour Vital Signs Date Time Temp Pulse Resp B/P (MAP) Pulse Ox O2 Delivery O2 Flow Rate FiO2 05/14/20 04:00 97.9 103 18 100/62 (75) 98 05/14/20 00:00 98.1 98 18 107/66 (80) 97 05/13/20 21:00 Room Air 05/13/20 20:00 97.5 111 18 109/68 (82) 98 05/13/20 19:32 96 Nasal Cannula 2.0 28 05/13/20 16:00 99.3 118 18 100/62 (75) 96 05/13/20 12:00 98.2 105 18 105/69 (81) 97 05/13/20 09:00 Room Air 05/13/20 08:00 97.5 113 18 105/64 (78) 98 Intake and Output 05/13/20 05/14/20 19:00 07:00 Intake Total 480 ml 450 ml Output Total 600 ml 400 ml Balance -120 ml 50 ml Intake Oral 480 ml 450 ml Output Urine Total 600 ml 400 ml # Bowel Movements 1 1 Laboratory Tests 05/13/20 08:00: White Blood Count 4.8, Red Blood Count 3.35L, Hemoglobin 9.4L, Hematocrit 30.3L, Mean Corpuscular Volume 91, Mean Corpuscular Hemoglobin 28.0, Mean Corpuscular Hemoglobin Concent 30.9L, Red Cell Distribution Width 21.8H, Platelet Count 355, Mean Platelet Volume 6.6, Neutrophils (%) (Auto) 63.4, Lymphocytes (%) (Auto) 13.4L, Monocytes (%) (Auto) 10.7H, Eosinophils (%) (Auto) 9.1H, Basophils (%) (Auto) 3.3H 05/13/20 08:10: Sodium Level 141, Potassium Level 4.3, Chloride Level 104, Carbon Dioxide Level 29, Anion Gap 8, Blood Urea Nitrogen 8, Creatinine 0.5L, Estimat Glomerular Filtration Rate > 60, Glucose Level 93, Calcium Level 10.5H Height (Feet): 5 Height (Inches): 7.00 Weight (Pounds): 150 General Appearance: no apparent distress EENT: normal ENT inspection Neck: supple Cardiovascular: normal rate Respiratory/Chest: decreased breath sounds Abdomen: normal bowel sounds, non tender, soft Extremities: non-tender Assessment/Plan Status: stable, progressing Assessment/Plan: iron def anemia mild elevated CEA lymphoma on chemo covid positive neg stool ob iv iron, completed fu H&H needs out patient fu for colonoscopy fu oncology CT reviewed colace miralax lactulose linzess marinol patient encouraged to take her meds Patrick Carter MD May 14, 2020 06:49
--- NOTE | 2020-05-14 07:15 | NUR ---
NURSE HAND-OFF: Important Events on Shift: Pt had a BM Patient Status: awake and eating breakfast Diet: regular Pending Orders: Pending Results/Labs: Pending MD notification: Latest Vital Signs: Temperature 97.9 , Pulse 103 , B/P 100 /62 , Respiratory Rate 18 , O2 SAT 98 , Nasal Cannula, O2 Flow Rate 2.0 . Vital Sign Comment: VSS Latest Urb[place] Fall Score: 35 Fall Risk: Medium Risk Safety Measures: Call light Within Reach, Bed Alarm Zone 1, Side Rails Side Rails x3, Bed position Low and Locked. Fall Precautions: Yellow Gown Door Sign Patient Fall Education Report given to REA Calderon.
--- NOTE | 2020-05-14 07:25 | NUR ---
NURSE NOTES: received report from REA Kam. patient in bed, A&Ox4, verbally responsive. no respiratory distress noted. pain on left leg. chronic. paraplegic on both lower extremities. turn and reposition. No IV. MD is aware. bed in the lowest position and locked. call light within reach.
[2020-05-14 08:00] VITALS: BP 93/69
[2020-05-14] MEDS: Dronabinol 2.5mg Cap ORAL SCH ×2 (08:14→17:07)
[2020-05-14] MEDS: Lactulose 20gm/30ml UDC ORAL SCH ×3 (08:14→17:06)
[2020-05-14] MEDS: Magnesium Oxide 400mg tab ORAL SCH ×3 (08:14→17:06)
[2020-05-14] MEDS: Ascorbic Acid 500mg tab ORAL SCH (08:14)
[2020-05-14] MEDS: Docusate 100mg cap ORAL SCH ×2 (08:14→17:07)
[2020-05-14] MEDS: Miralax 17gm pkt ORAL SCH (08:15)
--- NOTE | 2020-05-14 08:20 | NUR ---
NURSE NOTES: held miralax, colace, lactulos d/t patient had a loose stool this morning. patient refused taking baclofem d/t this med makes her feeling weak. refused taking baldwin d/t good appetite now.
[2020-05-14 09:28] LABS: ANION GAP 7 mmol/L (5-15); BLOOD UREA NITROGEN 9 mg/dL (7-18); CALCIUM 10.4 MG/DL (8.5-10.1); CARBON DIOXIDE 30 MMOL/L (21-32); CHLORIDE 104 MMOL/L (98-107); CREATININE 0.6 MG/DL (0.55-1.30); POTASSIUM 3.8 MMOL/L (3.5-5.1); SODIUM 141 MMOL/L (136-145)
[2020-05-14 09:44] LABS: BASOPHILS % (AUTO) 2.7 % (0.0-2.0); EOSINOPHILS % (AUTO) 9.3 % (0.0-3.0); HEMATOCRIT 29.7 % (37.0-47.0); HEMOGLOBIN 9.2 G/DL (12.0-16.0); LYMPHOCYTES % (AUTO) 12.2 % (20.0-45.0); MEAN CORPUSCULAR VOLUME 91 FL (80-99); MONOCYTES % (AUTO) 6.7 % (1.0-10.0); NEUTROPHILS % (AUTO) 69.1 % (45.0-75.0); PLATELET COUNT 372 K/UL (150-450); RED BLOOD COUNT 3.25 M/UL (4.20-5.40); RED CELL DISTRIBUTION WIDTH 21.7 % (11.6-14.8); WHITE BLOOD COUNT 5.7 K/UL (4.8-10.8)
--- NOTE | 2020-05-14 10:06 | Hematology/Onc Progress Note ---
Assessment/Plan Assessment/Plan # Leukopenia COVID19++++++++++ --> hep and hiv are neg --> wbc 4-->3-->2.9->2->4.6--4.1-->3.6-->4.7-->3.6->4.1-->4.7-->3.8-->3 --> Neupogen 300 x1 04/21 --> isolation if anc<500 # Non-Hodgkins Lymphoma is s/p chemotherapy in the past --> to return to [facility] for further treatment --> likely for ct/pet as outpatient --> CT Here shows no e/o disease --> imaging has been reviewed thus far --> end date of 04/2020 # Anemia likely of chronic disease -- does not appear to have iron deficiency --> transfuse as needed, tibc and ferritin are cw acd --> hgb 7.8-->8.6-->8.5-->8.4->7.6-->10-->9.9->9.6-->8.7-->8-->9.2 --> no hemolysis is noted --> s/p transfusion on admission # Covid 19++ with SIRS (febrile, tachycardic) --> per pulm and id --> CXR with diffuse non-specific inflammatory/infectious process --> s/p Cefepime (04/14 - 04/15) # Hypokalemia # Hypomagnesia # Chronic Back pain # Full Code # Dvt ppx heparin sq Appreciate consultation and dw Rn Subjective Respiratory: Denies: no symptoms, cough, shortness of breath, SOB with excertion, SOB at rest, sputum, wheezing, other Gastrointestinal/Abdominal: Denies: no symptoms, abdomen distended, abdominal pain, black stools, tarry stools, blood in stool, constipated, diarrhea, difficulty swallowing, nausea, poor appetite, poor fluid intake, rectal bleeding, vomiting, other Genitourinary: Denies: no symptoms, burning, discharge, frequency, flank pain, hematuria, incontinence, pain, urgency, other Neurologic/Psychiatric: Denies: no symptoms, anxiety, depressed, emotional problems, headache, numbness, paresthesia, pre-existing deficit, seizure, tingling, tremors, weakness, other Endocrine: Denies: no symptoms, excessive sweating, flushing, intolerance to cold, intolerance to heat, increased hunger, increased thirst, increased urine, unexplained weight gain, unexplained weight loss, other Hematologic/Lymphatic: Denies: no symptoms, anemia, easy bleeding, easy bruising, adenopathy, other Allergies: Coded Allergies: No Known Allergies (Unverified , 04/11/20) Subjective 04/17 is on room air, more comfortable, potential dc to snf 04/18 labs reviewed, no bleeding, meds noted, no night sweats 04/19 sleeping comfortably, no major events, no night sweats 04/20 meds noted, labs reviewed, wbc 2.9, hep and hiv is neg 04/21 labs reviewed, in am, the wbc was 2, to get neupogen x 1 dose now 04/23 labs noted, no bleeding, wbc 4, hgb remains low, but holding off trans 04/24 labs are pending for am, meds reviewed, no bleeding 04/25 meds reviewed, labs noted, no night sweats, reagan rn at bedside, no new events 04/26 labs reviewed, meds noted, no bleeding, wbc 3, hgb 7.6 04/27 reagan rn at bedside, labs are noted, no bleeding, refusing heparin now sq 04/28 labs have been reviewed, is on room air, no bleeding, tachy 04/30 labs pending, no night sweats, meds reviewed, tachy, no night sweats, wants iv iron 05/01 dc planning, meds noted, for labs this am, no new events 05/02 meds reviewed, has been refusing care, continue heparin sq 05/03 labs reviewed, on 2lnc, no bleeding, remains on hep but refusing 05/04 meds ntoed, labs reviewed, no new changes, reagan RN 05/05 meds noted, no bleeding, labs reviewed, no f/c 12: no acute events reported, no resp distress 05/07: no resp distress, vss on RA dc planning continues 05/08 on [facility] prn, nc, eaton, labs are noted 05/09 meds reviewed, labs pending, on nc, eaton 1/6 nc with eaton, no night sweats, meds have been reviewed 05/11 2lnc, bedbound no new changes, no new events, no bleeding 05/12: no acute events reported. No bleeding. 05/14 no new changes, no bleeding, meds noted, labs reviewed Objective Objective Current Medications Medications (Trade) Dose Ordered Sig/Angelika Route PRN Reason Start Time Stop Time Status Last Admin Dose Admin Acetaminophen (Tylenol) 650 mg Q6H PRN ORAL Mild Pain (Pain Scale 1-3) 05/10/20 17:30 06/09/20 17:29 05/12/20 13:37 Acetaminophen (Tylenol) 650 mg Q6H PRN ORAL Temp >100.5 05/10/20 18:00 06/09/20 17:59 Acetaminophen/ Hydrocodone Bitart ([place] 10/325) 1 tab Q6H PRN ORAL Severe Pain (Pain Scale 7-10) 05/10/20 21:00 05/17/20 20:59 05/14/20 01:51 Acetaminophen/ Hydrocodone Bitart ([place] 5/325) 1 tab Q6H PRN ORAL Moderate Pain (Pain Scale 4-6) 05/10/20 18:00 05/17/20 17:59 05/14/20 05:35 Allopurinol (allopurinoL) 300 mg DAILY ORAL 05/12/20 09:00 06/11/20 08:59 05/14/20 08:14 Ascorbic Acid (Vitamin C) 500 mg DAILY ORAL 04/26/20 09:00 05/26/20 08:59 05/14/20 08:14 Baclofen (Lioresal) 10 mg THREE TIMES A DAY ORAL 05/11/20 13:00 06/10/20 12:59 Chlorhexidine Gluconate (Christy-Hex 2%) 1 applic Q24H TOPIC 04/25/20 20:00 07/24/20 19:59 04/30/20 20:46 Docusate Sodium (Colace) 100 mg TWICE A DAY ORAL 04/27/20 09:00 05/20/20 08:59 05/13/20 08:24 Dronabinol (Marinol) 5 mg BID ORAL 05/01/20 09:00 07/30/20 08:59 05/13/20 08:23 Heparin Sodium (Porcine) (Heparin 5000 units/ml) 5,000 units EVERY 8 HOURS SUBQ 04/24/20 22:00 06/08/20 21:59 05/05/20 05:38 Lactulose (Cephulac) 20 gm THREE TIMES A DAY ORAL 04/21/20 13:00 05/21/20 12:59 05/08/20 08:18 Linaclotide (Linzess) 290 mcg BEFORE BREAKFAST ORAL 04/26/20 06:30 07/25/20 06:29 05/13/20 05:38 Magnesium Oxide (Mag-Ox 400mg) 400 mg THREE TIMES A DAY ORAL 04/30/20 13:00 05/30/20 12:59 05/14/20 08:14 Morphine Sulfate (Morphine Sulfate) 2 mg Q3H PRN IVP Severe Pain (Pain Scale 7-10) 05/10/20 18:00 05/17/20 17:59 Morphine Sulfate (Morphine Sulfate) 4 mg Q3H PRN IVP SEVERE BREAKTHRU PAIN 05/10/20 18:00 05/17/20 17:59 Multivitamins (Multivitamins) 1 tab DAILY ORAL 04/26/20 09:00 05/26/20 08:59 05/14/20 08:13 Ondansetron HCl (Zofran) 4 mg Q6H PRN IVP Nausea & Vomiting 04/19/20 13:30 05/19/20 13:29 04/29/20 18:17 Polyethylene Glycol (Miralax) 17 gm DAILY ORAL 04/20/20 09:00 05/20/20 08:59 05/13/20 08:23 Last 24 Hour Vital Signs Date Time Temp Pulse Resp B/P (MAP) Pulse Ox O2 Delivery O2 Flow Rate FiO2 05/14/20 09:00 Room Air 05/14/20 04:00 97.9 103 18 100/62 (75) 98 05/14/20 00:00 98.1 98 18 107/66 (80) 97 05/13/20 21:00 Room Air 05/13/20 20:00 97.5 111 18 109/68 (82) 98 05/13/20 19:32 96 Nasal Cannula 2.0 28 05/13/20 16:00 99.3 118 18 100/62 (75) 96 05/13/20 12:00 98.2 105 18 105/69 (81) 97 05/13/20 09:00 Room Air 05/13/20 08:00 97.5 113 18 105/64 (78) 98 05/13/20 04:00 97.9 93 18 93/70 (78) 95 05/13/20 00:00 98.4 110 18 112/75 (87) 96 05/12/20 21:00 Room Air 05/12/20 20:19 96 Nasal Cannula 2.0 28 05/12/20 20:00 98.1 109 18 97/60 (72) 96 05/12/20 18:04 98.1 05/12/20 16:00 98.6 83 18 119/67 (84) 96 05/12/20 14:07 98.1 05/12/20 12:00 98.1 80 18 112/76 (88) 95 Intake and Output 05/13/20 05/14/20 19:00 07:00 Intake Total 480 ml 450 ml Output Total 600 ml 400 ml Balance -120 ml 50 ml Intake Oral 480 ml 450 ml Output Urine Total 600 ml 400 ml # Bowel Movements 1 1 Labs Test 05/12/20 06:10 05/13/20 08:00 05/13/20 08:10 05/14/20 08:35 White Blood Count 4.3 K/UL (4.8-10.8) 4.8 K/UL (4.8-10.8) 5.7 K/UL (4.8-10.8) Red Blood Count 2.94 M/UL (4.20-5.40) 3.35 M/UL (4.20-5.40) 3.25 M/UL (4.20-5.40) Hemoglobin 8.3 G/DL (12.0-16.0) 9.4 G/DL (12.0-16.0) 9.2 G/DL (12.0-16.0) Hematocrit 26.5 % (37.0-47.0) 30.3 % (37.0-47.0) 29.7 % (37.0-47.0) Mean Corpuscular Volume 90 FL (80-99) 91 FL (80-99) 91 FL (80-99) Mean Corpuscular Hemoglobin 28.2 PG (27.0-31.0) 28.0 PG (27.0-31.0) 28.3 PG (27.0-31.0) Mean Corpuscular Hemoglobin Concent 31.4 G/DL (32.0-36.0) 30.9 G/DL (32.0-36.0) 30.9 G/DL (32.0-36.0) Red Cell Distribution Width 21.3 % (11.6-14.8) 21.8 % (11.6-14.8) 21.7 % (11.6-14.8) Platelet Count 336 K/UL (150-450) 355 K/UL (150-450) 372 K/UL (150-450) Mean Platelet Volume 6.8 FL (6.5-10.1) 6.6 FL (6.5-10.1) 6.0 FL (6.5-10.1) Neutrophils (%) (Auto) 66.7 % (45.0-75.0) 63.4 % (45.0-75.0) 69.1 % (45.0-75.0) Lymphocytes (%) (Auto) 10.9 % (20.0-45.0) 13.4 % (20.0-45.0) 12.2 % (20.0-45.0) Monocytes (%) (Auto) 11.1 % (1.0-10.0) 10.7 % (1.0-10.0) 6.7 % (1.0-10.0) Eosinophils (%) (Auto) 8.7 % (0.0-3.0) 9.1 % (0.0-3.0) 9.3 % (0.0-3.0) Basophils (%) (Auto) 2.6 % (0.0-2.0) 3.3 % (0.0-2.0) 2.7 % (0.0-2.0) Sodium Level 143 MMOL/L (136-145) 141 MMOL/L (136-145) 141 MMOL/L (136-145) Potassium Level 4.5 MMOL/L (3.5-5.1) 4.3 MMOL/L (3.5-5.1) 3.8 MMOL/L (3.5-5.1) Chloride Level 107 MMOL/L (98-107) 104 MMOL/L (98-107) 104 MMOL/L (98-107) Carbon Dioxide Level 31 MMOL/L (21-32) 29 MMOL/L (21-32) 30 MMOL/L (21-32) Anion Gap 5 mmol/L (5-15) 8 mmol/L (5-15) 7 mmol/L (5-15) Blood Urea Nitrogen 10 mg/dL (7-18) 8 mg/dL (7-18) 9 mg/dL (7-18) Creatinine 0.7 MG/DL (0.55-1.30) 0.5 MG/DL (0.55-1.30) 0.6 MG/DL (0.55-1.30) Estimat Glomerular Filtration Rate > 60 mL/min (>60) > 60 mL/min (>60) > 60 mL/min (>60) Glucose Level 93 MG/DL (74-106) 93 MG/DL (74-106) 127 MG/DL (74-106) Calcium Level 10.1 MG/DL (8.5-10.1) 10.5 MG/DL (8.5-10.1) 10.4 MG/DL (8.5-10.1) Height (Feet): 5 Height (Inches): 7.00 Weight (Pounds): 150 Objective Gen: nad Pulm: ctab, no cwr CV: rrr Abd: soft, nt Ext: no cce Martinez Hill MD May 14, 2020 10:06
--- NOTE | 2020-05-14 11:53 | Pulmonology Progress Note ---
Subjective ROS Limited/Unobtainable: Yes Interval Events: None new Constitutional: Reports: fever - resolved, fatigue HEENT: Repors: no symptoms Respiratory: Reports: no symptoms, dry cough Cardiovascular: Reports: no symptoms Gastrointestinal/Abdominal: Denies: nausea, vomiting, diarrhea Psychiatric: Denies: depression Skin: Denies: rash Musculoskeletal: Denies: pain Allergies: Coded Allergies: No Known Allergies (Unverified , 04/11/20) All Systems: reviewed and negative except above Objective Last 24 Hour Vital Signs Date Time Temp Pulse Resp B/P (MAP) Pulse Ox O2 Delivery O2 Flow Rate FiO2 05/14/20 09:00 Room Air 05/14/20 08:00 97.9 113 18 93/69 (77) 96 05/14/20 04:00 97.9 103 18 100/62 (75) 98 05/14/20 00:00 98.1 98 18 107/66 (80) 97 05/13/20 21:00 Room Air 05/13/20 20:00 97.5 111 18 109/68 (82) 98 05/13/20 19:32 96 Nasal Cannula 2.0 28 05/13/20 16:00 99.3 118 18 100/62 (75) 96 05/13/20 12:00 98.2 105 18 105/69 (81) 97 Intake and Output 05/13/20 05/14/20 19:00 07:00 Intake Total 480 ml 450 ml Output Total 600 ml 400 ml Balance -120 ml 50 ml Intake Oral 480 ml 450 ml Output Urine Total 600 ml 400 ml # Bowel Movements 1 1 General Appearance: WD/WN, no acute distress HEENT: normocephalic, atraumatic Respiratory: lungs clear Cardiovascular: normal rate, regular rhythm Abdomen: soft, non tender Genitourinary: other - Morales Extremities: no edema Laboratory Tests 05/14/20 08:35: White Blood Count 5.7, Red Blood Count 3.25L, Hemoglobin 9.2L, Hematocrit 29.7L, Mean Corpuscular Volume 91, Mean Corpuscular Hemoglobin 28.3, Mean Corpuscular Hemoglobin Concent 30.9L, Red Cell Distribution Width 21.7H, Platelet Count 372, Mean Platelet Volume 6.0L, Neutrophils (%) (Auto) 69.1, Lymphocytes (%) (Auto) 12.2L, Monocytes (%) (Auto) 6.7, Eosinophils (%) (Auto) 9.3H, Basophils (%) (Auto) 2.7H, Sodium Level 141, Potassium Level 3.8, Chloride Level 104, Carbon Dioxide Level 30, Anion Gap 7, Blood Urea Nitrogen 9, Creatinine 0.6, Estimat Glomerular Filtration Rate > 60, Glucose Level 127H, Calcium Level 10.4H Current Medications Medications (Trade) Dose Ordered Sig/Angelika Route PRN Reason Start Time Stop Time Status Last Admin Dose Admin Acetaminophen (Tylenol) 650 mg Q6H PRN ORAL Mild Pain (Pain Scale 1-3) 05/10/20 17:30 06/09/20 17:29 05/12/20 13:37 Acetaminophen (Tylenol) 650 mg Q6H PRN ORAL Temp >100.5 05/10/20 18:00 06/09/20 17:59 Acetaminophen/ Hydrocodone Bitart ([place] 10/325) 1 tab Q6H PRN ORAL Severe Pain (Pain Scale 7-10) 05/10/20 21:00 05/17/20 20:59 05/14/20 01:51 Acetaminophen/ Hydrocodone Bitart ([place] 5/325) 1 tab Q6H PRN ORAL Moderate Pain (Pain Scale 4-6) 05/10/20 18:00 05/17/20 17:59 05/14/20 05:35 Allopurinol (allopurinoL) 300 mg DAILY ORAL 05/12/20 09:00 06/11/20 08:59 05/14/20 08:14 Ascorbic Acid (Vitamin C) 500 mg DAILY ORAL 04/26/20 09:00 05/26/20 08:59 05/14/20 08:14 Baclofen (Lioresal) 10 mg THREE TIMES A DAY ORAL 05/11/20 13:00 06/10/20 12:59 Chlorhexidine Gluconate (Christy-Hex 2%) 1 applic Q24H TOPIC 04/25/20 20:00 07/24/20 19:59 04/30/20 20:46 Docusate Sodium (Colace) 100 mg TWICE A DAY ORAL 04/27/20 09:00 05/20/20 08:59 05/13/20 08:24 Dronabinol (Marinol) 5 mg BID ORAL 05/01/20 09:00 07/30/20 08:59 05/13/20 08:23 Heparin Sodium (Porcine) (Heparin 5000 units/ml) 5,000 units EVERY 8 HOURS SUBQ 04/24/20 22:00 06/08/20 21:59 05/05/20 05:38 Lactulose (Cephulac) 20 gm THREE TIMES A DAY ORAL 04/21/20 13:00 05/21/20 12:59 05/08/20 08:18 Linaclotide (Linzess) 290 mcg BEFORE BREAKFAST ORAL 04/26/20 06:30 07/25/20 06:29 05/13/20 05:38 Magnesium Oxide (Mag-Ox 400mg) 400 mg THREE TIMES A DAY ORAL 04/30/20 13:00 05/30/20 12:59 05/14/20 08:14 Morphine Sulfate (Morphine Sulfate) 2 mg Q3H PRN IVP Severe Pain (Pain Scale 7-10) 05/10/20 18:00 05/17/20 17:59 Morphine Sulfate (Morphine Sulfate) 4 mg Q3H PRN IVP SEVERE BREAKTHRU PAIN 05/10/20 18:00 05/17/20 17:59 Multivitamins (Multivitamins) 1 tab DAILY ORAL 04/26/20 09:00 05/26/20 08:59 05/14/20 08:13 Ondansetron HCl (Zofran) 4 mg Q6H PRN IVP Nausea & Vomiting 04/19/20 13:30 05/19/20 13:29 04/29/20 18:17 Polyethylene Glycol (Miralax) 17 gm DAILY ORAL 04/20/20 09:00 05/20/20 08:59 05/13/20 08:23 Assessment/Plan Assessment/Plan Assessment: 1. COVID-19 infection Resolved 2.Hx non-Hodgkin lymphoma. 4. Hx of Hypertension. 5. Hx of gout. 6. Anemia 7. DVT ppx 8. 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
[2020-05-14 12:00] VITALS: BP 116/79
--- NOTE | 2020-05-14 12:19 | Nephrology Progress Note ---
Assessment/Plan Plan #acute kidney injury likely due to vanco toxicity #hypokalemia- #hypomagnesemia #Acute on chronic anemia #h/p non- hodgkins lymphoma #possible sepsis #+ COVID #Femoral intertrochanteric hip fracture. - replete k and mag - Pulmonary eval - prbc transfusion prn - replete lytes - hemo-onc eval - ID eval - monitor CBC - avoid nephrotoxins - ortho eval - spine eval for L3 acute on chronic bone infarct, less likely neoplasm or infection? times spent 65 min Subjective ROS Limited/Unobtainable: No Constitutional: Reports: weakness HEENT: Denies: no symptoms, eye pain, blurred vision, tearing, double vision, ear pain, ear discharge, nose pain, nose congestion, throat pain, throat swelling, mouth pain, mouth swelling, other Genitourinary: Denies: no symptoms, burning, discharge, frequency, flank pain, hematuria, incontinence, pain, urgency, other Neurologic/Psychiatric: Denies: no symptoms, anxiety, depressed, emotional problems, headache, numbness, paresthesia, pre-existing deficit, seizure, tingling, tremors, weakness, other Subjective Cr better today mag and K low repleted hip fracture noted ortho consulted Impression: Minimal distention of the rectum with feces, could represent mild rectal fecal impaction. Equivocal slight thickening of the rectal wall and stranding of the perirectal fat, if real could indicate mild stercoral proctitis Comminuted fracture of the left femoral head, neck, and intertrochanteric region, ununited. Possibly acute, but abundant soft tissues surrounding the fracture area raises possibility that this could be chronic. Correlate with clinical findings Other findings as noted, including evidence of old T12 vertebral body compression fracture and prior vertebral augmentation procedure, Morales catheter, subcentimeter low-attenuation lesions which probably represent renal cysts, small sliding-type hiatal hernia Impression: Unusual signal abnormality of the posterolateral aspect of the L3 vertebral body on the right. This appears to be confined to the vertebral body marrow space. Prior CT scan in retrospect demonstrates sclerotic areas in the same location. Most likely differential consideration is an atypical hemangioma. Other possibilities include acute on chronic bone infarct, less likely neoplasm or infection No other unusual contrast enhancement. No findings to suggest discitis or epidural abscess. Objective Objective Last 24 Hour Vital Signs Date Time Temp Pulse Resp B/P (MAP) Pulse Ox O2 Delivery O2 Flow Rate FiO2 05/14/20 09:00 Room Air 05/14/20 08:00 97.9 113 18 93/69 (77) 96 05/14/20 04:00 97.9 103 18 100/62 (75) 98 05/14/20 00:00 98.1 98 18 107/66 (80) 97 05/13/20 21:00 Room Air 05/13/20 20:00 97.5 111 18 109/68 (82) 98 05/13/20 19:32 96 Nasal Cannula 2.0 28 05/13/20 16:00 99.3 118 18 100/62 (75) 96 Intake and Output 05/13/20 05/14/20 19:00 07:00 Intake Total 480 ml 450 ml Output Total 600 ml 400 ml Balance -120 ml 50 ml Intake Oral 480 ml 450 ml Output Urine Total 600 ml 400 ml # Bowel Movements 1 1 Laboratory Tests 05/14/20 08:35: White Blood Count 5.7, Red Blood Count 3.25L, Hemoglobin 9.2L, Hematocrit 29.7L, Mean Corpuscular Volume 91, Mean Corpuscular Hemoglobin 28.3, Mean Corpuscular Hemoglobin Concent 30.9L, Red Cell Distribution Width 21.7H, Platelet Count 372, Mean Platelet Volume 6.0L, Neutrophils (%) (Auto) 69.1, Lymphocytes (%) (Auto) 12.2L, Monocytes (%) (Auto) 6.7, Eosinophils (%) (Auto) 9.3H, Basophils (%) (Auto) 2.7H, Sodium Level 141, Potassium Level 3.8, Chloride Level 104, Carbon Dioxide Level 30, Anion Gap 7, Blood Urea Nitrogen 9, Creatinine 0.6, Estimat Glomerular Filtration Rate > 60, Glucose Level 127H, Calcium Level 10.4H Height (Feet): 5 Height (Inches): 7.00 Weight (Pounds): 150 Objective General Appearance: no apparent distress EENT: PERRL/EOMI Neck: non-tender, normal alignment Cardiovascular: normal peripheral pulses, normal rate Respiratory/Chest: chest wall non-tender, lungs clear Abdomen: normal bowel sounds, non tender Neurologic: alert, oriented x 3 Kallie Dykes M.D. May 14, 2020 12:19
--- NOTE | 2020-05-14 12:20 | NUR ---
NURSE NOTES: held lactulose and baclofen d/t patient refused. explained risk and benefit. continue to monitor patient condition.
[2020-05-14 16:00] VITALS: BP 106/68
--- NOTE | 2020-05-14 18:22 | General Progress Note ---
Subjective Constitutional: Reports: weakness Allergies: Coded Allergies: No Known Allergies (Unverified , 04/11/20) All Systems: reviewed and negative except above Subjective sleepy calm Objective Last 24 Hour Vital Signs Date Time Temp Pulse Resp B/P (MAP) Pulse Ox O2 Delivery O2 Flow Rate FiO2 05/14/20 17:36 Room Air 05/14/20 16:00 98.2 120 18 106/68 (81) 97 05/14/20 12:00 99.3 110 18 116/79 (91) 98 05/14/20 09:00 Room Air 05/14/20 08:00 97.9 113 18 93/69 (77) 96 05/14/20 07:00 96 Room Air 21 05/14/20 04:00 97.9 103 18 100/62 (75) 98 05/14/20 00:00 98.1 98 18 107/66 (80) 97 05/13/20 21:00 Room Air 05/13/20 20:00 97.5 111 18 109/68 (82) 98 05/13/20 19:32 96 Nasal Cannula 2.0 28 Intake and Output 05/13/20 05/14/20 19:00 07:00 Intake Total 480 ml 450 ml Output Total 600 ml 400 ml Balance -120 ml 50 ml Intake Oral 480 ml 450 ml Output Urine Total 600 ml 400 ml # Bowel Movements 1 1 Laboratory Tests 05/14/20 08:35: White Blood Count 5.7, Red Blood Count 3.25L, Hemoglobin 9.2L, Hematocrit 29.7L, Mean Corpuscular Volume 91, Mean Corpuscular Hemoglobin 28.3, Mean Corpuscular Hemoglobin Concent 30.9L, Red Cell Distribution Width 21.7H, Platelet Count 372, Mean Platelet Volume 6.0L, Neutrophils (%) (Auto) 69.1, Lymphocytes (%) (Auto) 12.2L, Monocytes (%) (Auto) 6.7, Eosinophils (%) (Auto) 9.3H, Basophils (%) (Au to) 2.7H, Sodium Level 141, Potassium Level 3.8, Chloride Level 104, Carbon Dioxide Level 30, Anion Gap 7, Blood Urea Nitrogen 9, Creatinine 0.6, Estimat Glomerular Filtration Rate > 60, Glucose Level 127H, Calcium Level 10.4H Height (Feet): 5 Height (Inches): 7.00 Weight (Pounds): 150 General Appearance: lethargic EENT: normal ENT inspection Neck: normal alignment Cardiovascular: normal peripheral pulses, normal rate, regular rhythm Respiratory/Chest: chest wall non-tender, lungs clear, normal breath sounds Abdomen: normal bowel sounds, non tender, soft Extremities: normal inspection Edema: no edema noted Arm (L), no edema noted Arm (R), no edema noted Leg (L), no edema noted Leg (R), no edema noted Pedal (L), no edema noted Pedal (R), no e cayetano noted Generalized Neurologic: motor weakness Skin: normal pigmentation, warm/dry Assessment/Plan Problem List: (1) Lymphoma ICD Codes: C85.90 - Non-Hodgkin lymphoma, unspecified, unspecified site SNOMED: 240770265 (2) Hip fracture ICD Codes: S72.009A - Fracture of unspecified part of neck of unspecified femur, initial encounter for closed fracture SNOMED: 317851262 (3) Anemia ICD Codes: D64.9 - Anemia, unspecified SNOMED: 944754630 Qualifiers: Qualified Codes: D64.9 - Anemia, unspecified (4) Abnormal thyroid function test ICD Codes: R94.6 - Abnormal results of thyroid function studies SNOMED: 915368545 (5) JIM (acute kidney injury) ICD Codes: N17.9 - Acute kidney failure, unspecified SNOMED: 5965972, 33200196 (6) COVID-19 ICD Codes: U07.1 - COVID-19 SNOMED: 197070828 Status: stable, progressing Assessment/Plan: o2 pulm tx abx gi heme eval cbc bmp am dc plan to [facility] Spencer Lopez DO May 14, 2020 18:21
--- NOTE | 2020-05-14 19:18 | NUR ---
NURSE HAND-OFF: Important Events on Shift:Pain management. PT therapy Patient Status: stable Diet: regular Pending Orders: n/a Pending Results/Labs:n/a Pending MD notification:n/a Latest Vital Signs: Temperature 98.2 , Pulse 120 , B/P 106 /68 , Respiratory Rate 18 , O2 SAT 97 , Nasal Cannula, O2 Flow Rate 2.0 . Vital Sign Comment: low bp, chronic tachycardia Latest [place] Fall Score: 35 Fall Risk: Medium Risk Safety Measures: Call light Within Reach, Bed Alarm Zone 1, Side Rails Side Rails x3, Bed position Low and Locked. Fall Precautions: Yellow Gown Door Sign Patient Fall Education Report given to REA Sun.
--- NOTE | 2020-05-14 19:45 | NUR ---
NURSE NOTES: Received report from Kvng LUCIA. Patient is awake, alert, and oriented x4. On room air, breathing is even and unlabored. Complains of generalized abdomen pain 9/10. Morales is intact and draining well. No IV and MD aware. Bed low and locked. Call light within reach.
[2020-05-14 20:00] VITALS: BP 100/68
[2020-05-14] MEDS: Dyna-Hex 2% Top Sol 2oz TOPIC SCH (20:00)
[2020-05-15] VITALS (7 sets, daily range): BP systolic 94–133; BP diastolic 58–97
[2020-05-15] MEDS: HYDROcodone/Acetamin 10/325 tab ORAL PRN ×3 (04:13→21:56)
[2020-05-15] MEDS: Heparin 5000 units/ml inj SUBQ SCH ×3 (05:37→20:43)
--- NOTE | 2020-05-15 06:48 | Hematology/Onc Progress Note ---
Assessment/Plan Assessment/Plan # Leukopenia COVID19++++++++++ --> hep and hiv are neg --> wbc 4-->3-->2.9->2->4.6--4.1-->3.6-->4.7-->3.6->4.1-->4.7-->3.8-->3->5 --> Neupogen 300 x1 04/21 --> isolation if anc<500 # Non-Hodgkins Lymphoma is s/p chemotherapy in the past --> to return to [facility] for further treatment --> likely for ct/pet as outpatient --> CT Here shows no e/o disease --> imaging has been reviewed thus far --> end date of 04/2020 # Anemia likely of chronic disease -- does not appear to have iron deficiency --> transfuse as needed, tibc and ferritin are cw acd --> hgb 7.8-->8.6-->8.5-->8.4->7.6-->10-->9.9->9.6-->8.7-->8-->9.2 --> no hemolysis is noted --> s/p transfusion on admission # Covid 19++ with SIRS (febrile, tachycardic) --> per pulm and id --> CXR with diffuse non-specific inflammatory/infectious process --> s/p Cefepime (04/14 - 04/15) # Hypokalemia # Hypomagnesia # Chronic Back pain # Full Code # Dvt ppx heparin sq Appreciate consultation and dw Rn Subjective HEENT: Denies: no symptoms, eye pain, blurred vision, tearing, double vision, ear pain, ear discharge, nose pain, nose congestion, throat pain, throat swelling, mouth pain, mouth swelling, other Cardiovascular: Denies: no symptoms, chest pain, edema, irregular heart rate, lightheadedness, palpitations, syncope, other Genitourinary: Denies: no symptoms, burning, discharge, frequency, flank pain, hematuria, incontinence, pain, urgency, other Neurologic/Psychiatric: Denies: no symptoms, anxiety, depressed, emotional problems, headache, numbness, paresthesia, pre-existing deficit, seizure, tingling, tremors, weakness, other Endocrine: Denies: no symptoms, excessive sweating, flushing, intolerance to cold, intolerance to heat, increased hunger, increased thirst, increased urine, unexplained weight gain, unexplained weight loss, other Hematologic/Lymphatic: Denies: no symptoms, anemia, easy bleeding, easy bruising, adenopathy, other Allergies: Coded Allergies: No Known Allergies (Unverified , 04/11/20) Subjective 04/17 is on room air, more comfortable, potential dc to snf 04/18 labs reviewed, no bleeding, meds noted, no night sweats 04/19 sleeping comfortably, no major events, no night sweats 04/20 meds noted, labs reviewed, wbc 2.9, hep and hiv is neg 04/21 labs reviewed, in am, the wbc was 2, to get neupogen x 1 dose now 04/23 labs noted, no bleeding, wbc 4, hgb remains low, but holding off trans 04/24 labs are pending for am, meds reviewed, no bleeding 04/25 meds reviewed, labs noted, no night sweats, reagan rn at bedside, no new events 04/26 labs reviewed, meds noted, no bleeding, wbc 3, hgb 7.6 04/27 reagan rn at bedside, labs are noted, no bleeding, refusing heparin now sq 04/28 labs have been reviewed, is on room air, no bleeding, tachy 04/30 labs pending, no night sweats, meds reviewed, tachy, no night sweats, wants iv iron 05/01 dc planning, meds noted, for labs this am, no new events 05/02 meds reviewed, has been refusing care, continue heparin sq 05/03 labs reviewed, on 2lnc, no bleeding, remains on hep but refusing 05/04 meds ntoed, labs reviewed, no new changes, reagan RN 05/05 meds noted, no bleeding, labs reviewed, no f/c 12: no acute events reported, no resp distress 05/07: no resp distress, vss on RA dc planning continues 05/08 on norco prn, nc, eaton, labs are noted 05/09 meds reviewed, labs pending, on nc, eaton 05/10 nc with eaton, no night sweats, meds have been reviewed 05/11 2lnc, bedbound no new changes, no new events, no bleeding 05/12: no acute events reported. No bleeding. 05/14 no new changes, no bleeding, meds noted, labs reviewed 05/15 labs are noted, no bleeding, meds reviewed, smear reviewed as well Objective Objective Current Medications Medications (Trade) Dose Ordered Sig/Angelika Route PRN Reason Start Time Stop Time Status Last Admin Dose Admin Acetaminophen (Tylenol) 650 mg Q6H PRN ORAL Mild Pain (Pain Scale 1-3) 05/10/20 17:30 06/09/20 17:29 05/12/20 13:37 Acetaminophen (Tylenol) 650 mg Q6H PRN ORAL Temp >100.5 05/10/20 18:00 06/09/20 17:59 Acetaminophen/ Hydrocodone Bitart ([place] 10/325) 1 tab Q6H PRN ORAL Severe Pain (Pain Scale 7-10) 05/10/20 21:00 05/17/20 20:59 05/15/20 04:13 Acetaminophen/ Hydrocodone Bitart ([place] 5/325) 1 tab Q6H PRN ORAL Moderate Pain (Pain Scale 4-6) 05/10/20 18:00 05/17/20 17:59 05/14/20 15:57 Allopurinol (allopurinoL) 300 mg DAILY ORAL 05/12/20 09:00 06/11/20 08:59 05/14/20 08:14 Ascorbic Acid (Vitamin C) 500 mg DAILY ORAL 04/26/20 09:00 05/26/20 08:59 05/14/20 08:14 Baclofen (Lioresal) 10 mg THREE TIMES A DAY ORAL 05/11/20 13:00 06/10/20 12:59 Chlorhexidine Gluconate (Christy-Hex 2%) 1 applic Q24H TOPIC 04/25/20 20:00 07/24/20 19:59 04/30/20 20:46 Docusate Sodium (Colace) 100 mg TWICE A DAY ORAL 04/27/20 09:00 05/20/20 08:59 05/13/20 08:24 Dronabinol (Marinol) 5 mg BID ORAL 05/01/20 09:00 07/30/20 08:59 05/13/20 08:23 Heparin Sodium (Porcine) (Heparin 5000 units/ml) 5,000 units EVERY 8 HOURS SUBQ 04/24/20 22:00 06/08/20 21:59 05/05/20 05:38 Lactulose (Cephulac) 20 gm THREE TIMES A DAY ORAL 04/21/20 13:00 05/21/20 12:59 05/08/20 08:18 Linaclotide (Linzess) 290 mcg BEFORE BREAKFAST ORAL 04/26/20 06:30 07/25/20 06:29 05/15/20 05:50 Magnesium Oxide (Mag-Ox 400mg) 400 mg THREE TIMES A DAY ORAL 04/30/20 13:00 05/30/20 12:59 05/14/20 17:06 Morphine Sulfate (Morphine Sulfate) 2 mg Q3H PRN IVP Severe Pain (Pain Scale 7-10) 05/10/20 18:00 05/17/20 17:59 Morphine Sulfate (Morphine Sulfate) 4 mg Q3H PRN IVP SEVERE BREAKTHRU PAIN 05/10/20 18:00 05/17/20 17:59 Multivitamins (Multivitamins) 1 tab DAILY ORAL 04/26/20 09:00 05/26/20 08:59 05/14/20 08:13 Ondansetron HCl (Zofran) 4 mg Q6H PRN IVP Nausea & Vomiting 04/19/20 13:30 05/19/20 13:29 04/29/20 18:17 Polyethylene Glycol (Miralax) 17 gm DAILY ORAL 04/20/20 09:00 05/20/20 08:59 05/13/20 08:23 Last 24 Hour Vital Signs Date Time Temp Pulse Resp B/P (MAP) Pulse Ox O2 Delivery O2 Flow Rate FiO2 05/15/20 04:00 98.6 97 18 111/67 (82) 98 05/15/20 00:00 97.7 92 18 94/58 (70) 97 05/14/20 21:00 Room Air 05/14/20 20:00 97.9 100 18 100/68 (79) 98 05/14/20 17:36 Room Air 05/14/20 16:00 98.2 120 18 106/68 (81) 97 05/14/20 12:00 99.3 110 18 116/79 (91) 98 05/14/20 09:00 Room Air 05/14/20 08:00 97.9 113 18 93/69 (77) 96 05/14/20 07:00 96 Room Air 21 05/14/20 04:00 97.9 103 18 100/62 (75) 98 05/14/20 00:00 98.1 98 18 107/66 (80) 97 05/13/20 21:00 Room Air 05/13/20 20:00 97.5 111 18 109/68 (82) 98 05/13/20 19:32 96 Nasal Cannula 2.0 28 05/13/20 16:00 99.3 118 18 100/62 (75) 96 05/13/20 12:00 98.2 105 18 105/69 (81) 97 05/13/20 09:00 Room Air 05/13/20 08:00 97.5 113 18 105/64 (78) 98 Intake and Output 05/14/20 05/15/20 19:00 07:00 Intake Total 600 ml 800 ml Output Total 1000 ml 1100 ml Balance -400 ml -300 ml Intake Oral 600 ml 800 ml Output Urine Total 1000 ml 1100 ml # Bowel Movements 1 Labs Test 05/13/20 08:00 05/13/20 08:10 05/14/20 08:35 White Blood Count 4.8 K/UL (4.8-10.8) 5.7 K/UL (4.8-10.8) Red Blood Count 3.35 M/UL (4.20-5.40) 3.25 M/UL (4.20-5.40) Hemoglobin 9.4 G/DL (12.0-16.0) 9.2 G/DL (12.0-16.0) Hematocrit 30.3 % (37.0-47.0) 29.7 % (37.0-47.0) Mean Corpuscular Volume 91 FL (80-99) 91 FL (80-99) Mean Corpuscular Hemoglobin 28.0 PG (27.0-31.0) 28.3 PG (27.0-31.0) Mean Corpuscular Hemoglobin Concent 30.9 G/DL (32.0-36.0) 30.9 G/DL (32.0-36.0) Red Cell Distribution Width 21.8 % (11.6-14.8) 21.7 % (11.6-14.8) Platelet Count 355 K/UL (150-450) 372 K/UL (150-450) Mean Platelet Volume 6.6 FL (6.5-10.1) 6.0 FL (6.5-10.1) Neutrophils (%) (Auto) 63.4 % (45.0-75.0) 69.1 % (45.0-75.0) Lymphocytes (%) (Auto) 13.4 % (20.0-45.0) 12.2 % (20.0-45.0) Monocytes (%) (Auto) 10.7 % (1.0-10.0) 6.7 % (1.0-10.0) Eosinophils (%) (Auto) 9.1 % (0.0-3.0) 9.3 % (0.0-3.0) Basophils (%) (Auto) 3.3 % (0.0-2.0) 2.7 % (0.0-2.0) Sodium Level 141 MMOL/L (136-145) 141 MMOL/L (136-145) Potassium Level 4.3 MMOL/L (3.5-5.1) 3.8 MMOL/L (3.5-5.1) Chloride Level 104 MMOL/L (98-107) 104 MMOL/L (98-107) Carbon Dioxide Level 29 MMOL/L (21-32) 30 MMOL/L (21-32) Anion Gap 8 mmol/L (5-15) 7 mmol/L (5-15) Blood Urea Nitrogen 8 mg/dL (7-18) 9 mg/dL (7-18) Creatinine 0.5 MG/DL (0.55-1.30) 0.6 MG/DL (0.55-1.30) Estimat Glomerular Filtration Rate > 60 mL/min (>60) > 60 mL/min (>60) Glucose Level 93 MG/DL (74-106) 127 MG/DL (74-106) Calcium Level 10.5 MG/DL (8.5-10.1) 10.4 MG/DL (8.5-10.1) Height (Feet): 5 Height (Inches): 7.00 Weight (Pounds): 150 Objective Gen: nad Pulm: ctab, no cwr CV: rrr Abd: soft, nt Ext: no cce Martinez Hill MD May 15, 2020 06:48
--- NOTE | 2020-05-15 07:40 | NUR ---
NURSE NOTES: received report from REA Carr patient laying in bed with no signs of distress or other issues at this time. per report patient is saturating 96-98% RA. NO IV Access per report, is aware. call light within reach, bed in lowest position, side rales up x2. I will f/u as needed. - Per report patient has been refusing Heparin.
--- NOTE | 2020-05-15 07:45 | NUR ---
NURSE HAND-OFF: Important Events on Shift: Pain management Patient Status: Stable Diet: Regular Pending Orders: [] Pending Results/Labs:[] Pending MD notification:[] Latest Vital Signs: Temperature 98.6 , Pulse 97 , B/P 111 /67 , Respiratory Rate 18 , O2 SAT 98 , Nasal Cannula, O2 Flow Rate 2.0 . Vital Sign Comment: VS stable Latest [place] Fall Score: 35 Fall Risk: Medium Risk Safety Measures: Call light Within Reach, Bed Alarm Zone 1, Side Rails Side Rails x3, Bed position Low and Locked. Fall Precautions: Yellow Gown Door Sign Patient Fall Education Report given to Sherrill LUCIA.
[2020-05-15 07:51] LABS: BLOOD UREA NITROGEN 9 mg/dL (7-18); CALCIUM 10.1 MG/DL (8.5-10.1); CHLORIDE 103 MMOL/L (98-107); CREATININE 0.5 MG/DL (0.55-1.30); POTASSIUM 4.1 MMOL/L (3.5-5.1); SODIUM 139 MMOL/L (136-145)
[2020-05-15 08:43] LABS: CARBON DIOXIDE 27 MMOL/L (21-32)
[2020-05-15] MEDS: Dronabinol 2.5mg Cap ORAL SCH ×2 (08:54→17:18)
[2020-05-15] MEDS: Magnesium Oxide 400mg tab ORAL SCH ×3 (08:54→17:21)
[2020-05-15] MEDS: Lactulose 20gm/30ml UDC ORAL SCH ×3 (08:54→17:18)
[2020-05-15] MEDS: Ascorbic Acid 500mg tab ORAL SCH (08:54)
[2020-05-15] MEDS: Docusate 100mg cap ORAL SCH ×2 (08:54→17:18)
[2020-05-15] MEDS: Miralax 17gm pkt ORAL SCH (08:54)
--- NOTE | 2020-05-15 09:06 | General Progress Note ---
Subjective Constitutional: Reports: weakness Allergies: Coded Allergies: No Known Allergies (Unverified , 04/11/20) All Systems: reviewed and negative except above Subjective sleepy calm Objective Last 24 Hour Vital Signs Date Time Temp Pulse Resp B/P (MAP) Pulse Ox O2 Delivery O2 Flow Rate FiO2 05/15/20 04:00 98.6 97 18 111/67 (82) 98 05/15/20 00:00 97.7 92 18 94/58 (70) 97 05/14/20 21:00 Room Air 05/14/20 20:00 97.9 100 18 100/68 (79) 98 05/14/20 17:36 Room Air 05/14/20 16:00 98.2 120 18 106/68 (81) 97 05/14/20 12:00 99.3 110 18 116/79 (91) 98 Intake and Output 05/14/20 05/15/20 19:00 07:00 Intake Total 600 ml 800 ml Output Total 1000 ml 1100 ml Balance -400 ml -300 ml Intake Oral 600 ml 800 ml Output Urine Total 1000 ml 1100 ml # Bowel Movements 1 Laboratory Tests 05/15/20 05:55: White Blood Count [Pending], Red Blood Count [Pending], Hemoglobin [Pending], Hematocrit [Pending], Mean Corpuscular Volume [Pending], Mean Corpuscular Hemoglobin [Pending], Mean Corpuscular Hemoglobin Concent [Pending], Red Cell Distribution Width [Pending], Platelet Count [Pending], Mean Platelet Volume [Pending], Neutrophils (%) (Auto) [Pending], Lymphocytes (%) (Auto) [Pending], Monocytes (%) (Auto) [Pending], Eosinophils (%) (Auto) [Pending], Basophils (%) (Auto) [Pending], Sodium Level 139, Potassium Level 4.1, Chloride Level 103, Carbon Dioxide Level 27, Blood Urea Nitrogen 9, Creatinine 0.5L, Estimat Glomerular Filtration Rate > 60, Glucose Level 88, Calcium Level 10.1 Height (Feet): 5 Height (Inches): 7.00 Weight (Pounds): 150 General Appearance: lethargic EENT: normal ENT inspection Neck: normal alignment Cardiovascular: normal peripheral pulses, normal rate, regular rhythm Respiratory/Chest: chest wall non-tender, lungs clear, normal breath sounds Abdomen: normal bowel sounds, non tender, soft Extremities: normal inspection Edema: no edema noted Arm (L), no edema noted Arm (R), no edema noted Leg (L), no edema noted Leg (R), no edema noted Pedal (L), no edema noted Pedal (R), no edema noted Generalized Neurologic: motor weakness Skin: normal pigmentation, warm/dry Assessment/Plan Problem List: (1) Lymphoma ICD Codes: C85.90 - Non-Hodgkin lymphoma, unspecified, unspecified site SNOMED: 932700560 (2) Hip fracture ICD Codes: S72.009A - Fracture of unspecified part of neck of unspecified femur, initial encounter for closed fracture SNOMED: 481308606 (3) Anemia ICD Codes: D64.9 - Anemia, unspecified SNOMED: 622583617 Qualifiers: Qualified Codes: D64.9 - Anemia, unspecified (4) Abnormal thyroid function test ICD Codes: R94.6 - Abnormal results of thyroid function studies SNOMED: 128403372 (5) JIM (acute kidney injury) ICD Codes: N17.9 - Acute kidney failure, unspecified SNOMED: 3658046, 57474765 (6) COVID-19 ICD Codes: U07.1 - COVID-19 SNOMED: 009354957 Status: stable, progressing Assessment/Plan: o2 pulm tx abx gi heme eval cbc bmp am dc plan to snf Spencer Lopze DO May 15, 2020 09:06
[2020-05-15 09:24] LABS: BASOPHILS % (AUTO) 2.1 % (0.0-2.0); EOSINOPHILS % (AUTO) 9.3 % (0.0-3.0); HEMATOCRIT 26.5 % (37.0-47.0); HEMOGLOBIN 8.4 G/DL (12.0-16.0); LYMPHOCYTES % (AUTO) 6.6 % (20.0-45.0); MEAN CORPUSCULAR VOLUME 88 FL (80-99); MONOCYTES % (AUTO) 9.8 % (1.0-10.0); NEUTROPHILS % (AUTO) 72.1 % (45.0-75.0); PLATELET COUNT 383 K/UL (150-450); RED CELL DISTRIBUTION WIDTH 21.9 % (11.6-14.8); WHITE BLOOD COUNT 6.4 K/UL (4.8-10.8)
--- NOTE | 2020-05-15 10:00 | NUR ---
NURSE NOTES: Patient REFUSED baclofen and Lactulose.RN explained risk and benefits. and patient continued to refused meds. patient stated Baclofen slow down her progress ans lactulose givens her n/v.
--- NOTE | 2020-05-15 10:40 | Cardiac Electrophysiology PN ---
Assessment/Plan Assessment/Plan 1. Sinus tachycardia due to sepsis, anemia and COVID. 2. COVID pneumonia. Now off isolation and on RA 3. Hypokalemia. 4. Hypomagnesemia. 5. History of non-Hodgkin lymphoma. 6. Leukopenia and anemia. FU Dr. Valencia S/P PRBC 7. Fever. 8. Low Mg replaced 9. Left Hip Fx; Likely Chronic > Patient states she fell 5 months ago. Also had hard fall on coccyx in 2018. Minimal pain in left hip Per Dr. Payan. Given patient bed bound risks > benefits. LUKE RN DC to SNIF pending Subjective Subjective Off Covid isolation. On RA awaiting SNIF placement Objective Last 24 Hour Vital Signs Date Time Temp Pulse Resp B/P (MAP) Pulse Ox O2 Delivery O2 Flow Rate FiO2 05/15/20 09:43 98.6 05/15/20 04:00 98.6 97 18 111/67 (82) 98 05/15/20 00:00 97.7 92 18 94/58 (70) 97 05/14/20 21:00 Room Air 05/14/20 20:00 97.9 100 18 100/68 (79) 98 05/14/20 17:36 Room Air 05/14/20 16:00 98.2 120 18 106/68 (81) 97 05/14/20 12:00 99.3 110 18 116/79 (91) 98 Intake and Output 05/14/20 05/15/20 19:00 07:00 Intake Total 600 ml 800 ml Output Total 1000 ml 1100 ml Balance -400 ml -300 ml Intake Oral 600 ml 800 ml Output Urine Total 1000 ml 1100 ml # Bowel Movements 1 Laboratory Tests Test 05/15/20 05:55 White Blood Count 6.4 K/UL (4.8-10.8) Red Blood Count 3.00 M/UL (4.20-5.40) L Hemoglobin 8.4 G/DL (12.0-16.0) L Hematocrit 26.5 % (37.0-47.0) L Mean Corpuscular Volume 88 FL (80-99) Mean Corpuscular Hemoglobin 27.9 PG (27.0-31.0) Mean Corpuscular Hemoglobin Concent 31.6 G/DL (32.0-36.0) L Red Cell Distribution Width 21.9 % (11.6-14.8) H Platelet Count 383 K/UL (150-450) Mean Platelet Volume 6.6 FL (6.5-10.1) Neutrophils (%) (Auto) 72.1 % (45.0-75.0) Lymphocytes (%) (Auto) 6.6 % (20.0-45.0) L Monocytes (%) (Auto) 9.8 % (1.0-10.0) Eosinophils (%) (Auto) 9.3 % (0.0-3.0) H Basophils (%) (Auto) 2.1 % (0.0-2.0) H Sodium Level 139 MMOL/L (136-145) Potassium Level 4.1 MMOL/L (3.5-5.1) Chloride Level 103 MMOL/L (98-107) Carbon Dioxide Level 27 MMOL/L (21-32) Blood Urea Nitrogen 9 mg/dL (7-18) Creatinine 0.5 MG/DL (0.55-1.30) L Estimat Glomerular Filtration Rate > 60 mL/min (>60) Glucose Level 88 MG/DL (74-106) Calcium Level 10.1 MG/DL (8.5-10.1) Objective HEAD AND NECK: No JVD. LUNGS: Coarse rhonchi. CARDIOVASCULAR: Regular S1 and S2 with no gallop or murmur. ABDOMEN: Soft. EXTREMITIES: No pitting edema. Ehsan Wan MD May 15, 2020 10:40
--- NOTE | 2020-05-15 13:03 | General Progress Note ---
Subjective ROS Limited/Unobtainable: Yes Allergies: Coded Allergies: No Known Allergies (Unverified , 04/11/20) Objective Last 24 Hour Vital Signs Date Time Temp Pulse Resp B/P (MAP) Pulse Ox O2 Delivery O2 Flow Rate FiO2 05/15/20 09:43 98.6 05/15/20 04:00 98.6 97 18 111/67 (82) 98 05/15/20 00:00 97.7 92 18 94/58 (70) 97 05/14/20 21:00 Room Air 05/14/20 20:00 97.9 100 18 100/68 (79) 98 05/14/20 17:36 Room Air 05/14/20 16:00 98.2 120 18 106/68 (81) 97 Intake and Output 05/14/20 05/15/20 19:00 07:00 Intake Total 600 ml 800 ml Output Total 1000 ml 1100 ml Balance -400 ml -300 ml Intake Oral 600 ml 800 ml Output Urine Total 1000 ml 1100 ml # Bowel Movements 1 Laboratory Tests 05/15/20 05:55: White Blood Count 6.4, Red Blood Count 3.00L, Hemoglobin 8.4L, Hematocrit 26.5L, Mean Corpuscular Volume 88, Mean Corpuscular Hemoglobin 27.9, Mean Corpuscular Hemoglobin Concent 31.6L, Red Cell Distribution Width 21.9H, Platelet Count 383, Mean Platelet Volume 6.6, Neutrophils (%) (Auto) 72.1, Lymphocytes (%) (Auto) 6.6L, Monocytes (%) (Auto) 9.8, Eosinophils (%) (Auto) 9.3H, Basophils (%) (Auto) 2.1H, Sodium Level 139, Potassium Level 4.1, Chloride Level 103, Carbon Dioxide Level 27, Blood Urea Nitrogen 9, Creatinine 0.5L, Estimat Glomerular Filtration Rate > 60, Glucose Level 88, Calcium Level 10.1 Height (Feet): 5 Height (Inches): 7.00 Weight (Pounds): 150 General Appearance: no apparent distress EENT: normal ENT inspection Neck: supple Cardiovascular: normal rate Respiratory/Chest: decreased breath sounds Abdomen: normal bowel sounds, non tender, soft Extremities: non-tender Assessment/Plan Status: stable, progressing Assessment/Plan: iron def anemia mild elevated CEA lymphoma on chemo covid positive neg stool ob iv iron, completed fu H&H needs out patient fu for colonoscopy fu oncology CT reviewed colace miralax lactulose tammy west patient encouraged to take her meds Patrick Carter MD May 15, 2020 13:02
--- NOTE | 2020-05-15 13:07 | Nephrology Progress Note ---
Assessment/Plan Plan #acute kidney injury likely due to vanco toxicity #hypokalemia- #hypomagnesemia #Acute on chronic anemia #h/p non- hodgkins lymphoma #possible sepsis #+ COVID #Femoral intertrochanteric hip fracture. - replete k and mag - Pulmonary eval - prbc transfusion prn - replete lytes - hemo-onc eval - ID eval - monitor CBC - avoid nephrotoxins - ortho eval - spine eval for L3 acute on chronic bone infarct, less likely neoplasm or infection? times spent 65 min Subjective Subjective Cr better today mag and K low repleted hip fracture noted ortho consulted Impression: Minimal distention of the rectum with feces, could represent mild rectal fecal impaction. Equivocal slight thickening of the rectal wall and stranding of the perirectal fat, if real could indicate mild stercoral proctitis Comminuted fracture of the left femoral head, neck, and intertrochanteric region , ununited. Possibly acute, but abundant soft tissues surrounding the fracture area raises possibility that this could be chronic. Correlate with clinical findings Other findings as noted, including evidence of old T12 vertebral body compression fracture and prior vertebral augmentation procedure, Morales catheter, subcentimeter low-attenuation lesions which probably represent renal cysts, small sliding-type hiatal hernia Impression: Unusual signal abnormality of the posterolateral aspect of the L3 vertebral body on the right. This appears to be confined to the vertebral body marrow space. Prior CT scan in retrospect demonstrates sclerotic areas in the same location. Most likely differential consideration is an atypical hemangioma. Other possibilities include acute on chronic bone infarct, less likely neoplasm or infection No other unusual contrast enhancement. No findings to suggest discitis or epidural abscess. Objective Objective Last 24 Hour Vital Signs Date Time Temp Pulse Resp B/P (MAP) Pulse Ox O2 Delivery O2 Flow Rate FiO2 05/15/20 09:43 98.6 05/15/20 04:00 98.6 97 18 111/67 (82) 98 05/15/20 00:00 97.7 92 18 94/58 (70) 97 05/14/20 21:00 Room Air 05/14/20 20:00 97.9 100 18 100/68 (79) 98 05/14/20 17:36 Room Air 05/14/20 16:00 98.2 120 18 106/68 (81) 97 Intake and Output 05/14/20 05/15/20 19:00 07:00 Intake Total 600 ml 800 ml Output Total 1000 ml 1100 ml Balance -400 ml -300 ml Intake Oral 600 ml 800 ml Output Urine Total 1000 ml 1100 ml # Bowel Movements 1 Laboratory Tests 05/15/20 05:55: White Blood Count 6.4, Red Blood Count 3.00L, Hemoglobin 8.4L, Hematocrit 26.5L, Mean Corpuscular Volume 88, Mean Corpuscular Hemoglobin 27.9, Mean Corpuscular Hemoglobin Concent 31.6L, Red Cell Distribution Width 21.9H, Platelet Count 383, Mean Platelet Volume 6.6, Neutrophils (%) (Auto) 72.1, Lymphocytes (%) (Auto) 6.6L, Monocytes (%) (Auto) 9.8, Eosinophils (%) (Auto) 9.3H, Basophils (%) (Auto) 2.1H, Sodium Level 139, Potassium Level 4.1, Chloride Level 103, Carbon Dioxide Level 27, Blood Urea Nitrogen 9, Creatinine 0.5L, Estimat Glomerular Filtration Rate > 60, Glucose Level 88, Calcium Level 10.1 Height (Feet): 5 Height (Inches): 7.00 Weight (Pounds): 150 Objective General Appearance: no apparent distress EENT: PERRL/EOMI Neck: non-tender, normal alignment Cardiovascular: normal peripheral pulses, normal rate Respiratory/Chest: chest wall non-tender, lungs clear Abdomen: normal bowel sounds, non tender Neurologic: alert, oriented x 3 Kallie Dykes M.D. May 15, 2020 13:07
--- NOTE | 2020-05-15 13:58 | Pulmonology Progress Note ---
Subjective ROS Limited/Unobtainable: Yes Interval Events: None new Constitutional: Reports: fever - resolved, fatigue HEENT: Repors: no symptoms Respiratory: Reports: no symptoms, dry cough Cardiovascular: Reports: no symptoms Gastrointestinal/Abdominal: Denies: nausea, vomiting, diarrhea Psychiatric: Denies: depression Skin: Denies: rash Musculoskeletal: Denies: pain Allergies: Coded Allergies: No Known Allergies (Unverified , 04/11/20) All Systems: reviewed and negative except above Objective Last 24 Hour Vital Signs Date Time Temp Pulse Resp B/P (MAP) Pulse Ox O2 Delivery O2 Flow Rate FiO2 05/15/20 13:20 98.6 05/15/20 12:00 97.5 118 20 130/78 (95) 99 05/15/20 09:43 98.6 05/15/20 09:00 Room Air 05/15/20 08:00 98.2 101 20 97/64 (75) 98 05/15/20 04:00 98.6 97 18 111/67 (82) 98 05/15/20 00:00 97.7 92 18 94/58 (70) 97 05/14/20 21:00 Room Air 05/14/20 20:00 97.9 100 18 100/68 (79) 98 05/14/20 17:36 Room Air 05/14/20 16:00 98.2 120 18 106/68 (81) 97 Intake and Output 05/14/20 05/15/20 19:00 07:00 Intake Total 600 ml 800 ml Output Total 1000 ml 1100 ml Balance -400 ml -300 ml Intake Oral 600 ml 800 ml Output Urine Total 1000 ml 1100 ml # Bowel Movements 1 Objective 05/15 stable respiration on room air 05/12 no change respiratory-salomon 05/11 no change 05/10 no change, still on 1-2L NC 05/09 no change, still on 2L NC 05/08 no change respiratory-salomon; stable 05/07 stable saturation 05/06 no change 05/05 no change respiratory-salomon; stable no change 05/03 no change; AM labs unavailable 05/02 on and off 2 L NC; NAD 05/01 no change 04/28 on and off 1 L NC; NAD 04/27 on and off 1 L NC; NAD 04/26 still on 1 L NC; NAD 04/25 no change respiratory-salomon 04/24 no change 04/23 on and off 1 lpm NC 04/22 saturating well on and off 1 lpm NC 04/21 no change 04/20 pt saturating well on 2 lpm NC; NAD 04/19 pt saturating well on 2 lpm NC; NAD 04/18 pt saturating well on 2 lpm NC General Appearance: WD/WN, no acute distress HEENT: normocephalic, atraumatic Respiratory: lungs clear Cardiovascular: normal rate, regular rhythm Abdomen: soft, non tender Genitourinary: other - Morales Extremities: no edema Laboratory Tests 05/15/20 05:55: White Blood Count 6.4, Red Blood Count 3.00L, Hemoglobin 8.4L, Hematocrit 26.5L, Mean Corpuscular Volume 88, Mean Corpuscular Hemoglobin 27.9, Mean Corpuscular Hemoglobin Concent 31.6L, Red Cell Distribution Width 21.9H, Platelet Count 383, Mean Platelet Volume 6.6, Neutrophils (%) (Auto) 72.1, Lymphocytes (%) (Auto) 6.6L, Monocytes (%) (Auto) 9.8, Eosinophils (%) (Auto) 9.3H, Basophils (%) (Auto) 2.1H, Sodium Level 139, Potassium Level 4.1, Chloride Level 103, Carbon Dioxide Level 27, Blood Urea Nitrogen 9, Creatinine 0.5L, Estimat Glomerular Filtration Rate > 60, Glucose Level 88, Calcium Level 10.1 Current Medications Medications (Trade) Dose Ordered Sig/Angelika Route PRN Reason Start Time Stop Time Status Last Admin Dose Admin Acetaminophen (Tylenol) 650 mg Q6H PRN ORAL Mild Pain (Pain Scale 1-3) 05/10/20 17:30 06/09/20 17:29 05/15/20 09:13 Acetaminophen (Tylenol) 650 mg Q6H PRN ORAL Temp >100.5 05/10/20 18:00 06/09/20 17:59 Acetaminophen/ Hydrocodone Bitart ([place] 10/325) 1 tab Q6H PRN ORAL Severe Pain (Pain Scale 7-10) 05/10/20 21:00 05/17/20 20:59 05/15/20 12:50 Acetaminophen/ Hydrocodone Bitart ([place] 5/325) 1 tab Q6H PRN ORAL Moderate Pain (Pain Scale 4-6) 05/10/20 18:00 05/17/20 17:59 05/14/20 15:57 Allopurinol (allopurinoL) 300 mg DAILY ORAL 05/12/20 09:00 06/11/20 08:59 05/15/20 08:54 Ascorbic Acid (Vitamin C) 500 mg DAILY ORAL 04/26/20 09:00 05/26/20 08:59 05/15/20 08:54 Baclofen (Lioresal) 10 mg THREE TIMES A DAY ORAL 05/11/20 13:00 06/10/20 12:59 Chlorhexidine Gluconate (Christy-Hex 2%) 1 applic Q24H TOPIC 04/25/20 20:00 07/24/20 19:59 04/30/20 20:46 Docusate Sodium (Colace) 100 mg TWICE A DAY ORAL 04/27/20 09:00 05/20/20 08:59 05/15/20 08:54 Dronabinol (Marinol) 5 mg BID ORAL 05/01/20 09:00 07/30/20 08:59 05/15/20 08:54 Heparin Sodium (Porcine) (Heparin 5000 units/ml) 5,000 units EVERY 8 HOURS SUBQ 04/24/20 22:00 06/08/20 21:59 05/05/20 05:38 Lactulose (Cephulac) 20 gm THREE TIMES A DAY ORAL 04/21/20 13:00 05/21/20 12:59 05/08/20 08:18 Linaclotide (Linzess) 290 mcg BEFORE BREAKFAST ORAL 04/26/20 06:30 07/25/20 06:29 05/15/20 05:50 Magnesium Oxide (Mag-Ox 400mg) 400 mg THREE TIMES A DAY ORAL 04/30/20 13:00 05/30/20 12:59 05/15/20 12:50 Morphine Sulfate (Morphine Sulfate) 2 mg Q3H PRN IVP Severe Pain (Pain Scale 7-10) 05/10/20 18:00 05/17/20 17:59 Morphine Sulfate (Morphine Sulfate) 4 mg Q3H PRN IVP SEVERE BREAKTHRU PAIN 05/10/20 18:00 05/17/20 17:59 Multivitamins (Multivitamins) 1 tab DAILY ORAL 04/26/20 09:00 05/26/20 08:59 05/15/20 08:54 Ondansetron HCl (Zofran) 4 mg Q6H PRN IVP Nausea & Vomiting 04/19/20 13:30 05/19/20 13:29 04/29/20 18:17 Polyethylene Glycol (Miralax) 17 gm DAILY ORAL 04/20/20 09:00 05/20/20 08:59 05/15/20 08:54 Assessment/Plan Assessment/Plan 1. COVID-19 infection - COVID-19 PCR 04/21 positive: now off isolation - no indication for steroid or remdesivir given her normoxemia - s/p cefepime - CXR with diffuse non-specific inflammatory/infectious process - cont supplemental oxygen as needed; currently saturating well on 2L NC - CT A/P/C - no obvious pna or abscess, cultures negative 2. Immunocompromised state with history of non-Hodgkin lymphoma. - h/o port line infection; s/p Vanco - to return to [facility] for further Tx 3. Fever; resolved - urine culture showed zee albicans - blood culture showed no growth 4. Hx of Hypertension. 5. Hx of gout. 6. Anemia - s/p pRBC 7. DVT ppx - on SCD 8. Low TSH; improving - Dr. Fermin following - no need for levothyroxine per Dr. Fermin 9. Zee UTI - Urine Cx showed zee albicans - On fluconazole 200mg daily for 5 days (05/04 - 05/09) per ID 10. Hypokalemia - potassium replaced per neprho 11. Hypomagnesemia - Mg replaced per nephro 12. 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
--- NOTE | 2020-05-15 16:15 | NUR ---
CASE MANAGEMENT:REVIEW SI;CHRONIC LT HIP FX. UTI. H/O NON-HODGKINS LYMPHOMA 98.6 118 20 97/64 98% ON RA H/H 8.4/26.5 IS;NORCO PO Q6 PRN ALLOPURINOL PO QD BACLOFEN PO TID MARINOL PO BID MAG-OX PO TID LINZESS PO QD LACTULOSE PO TID MED SURG STATUS DCP;PENDING PLACEMENT
--- NOTE | 2020-05-15 16:48 | NUR ---
*-*DISCHARGE PLANNING*-* PATIENT HAS BEEN REFERRED TO: GAYE LINDSAY P: [phone] S/W FLORESITA, NEED TO VERIFY INSURANCE, WILL FOLLOW UP.
--- NOTE | 2020-05-15 16:49 | NUR ---
*-*DISCHARGE PLANNING*-* PATIENT HAS BEEN REFERRED TO: ANNIE LOUIS P: [phone] S/W ZHENG, WILL CALL BACK AFTER REVIEW.
--- NOTE | 2020-05-15 18:00 | NUR ---
NURSE NOTES: Patient REFUSED baclofen, Marinol and Lactulose.RN explained risk and benefits. and patient continued to refused meds. patient stated Baclofen slow down her progress, lactulose givens her n/v and Marinol doesn't do anything for her.
--- NOTE | 2020-05-15 19:10 | NUR ---
NURSE NOTES: RECEIVED PATIENT FROM REA FERRELL. PATIENT IS AWAKE, AAOX4, ON ROOM AIR, NO ACUTE DISTRESS NOTED. NO IV ACCESS, REFUSED NEW IV INSERTION. DENIES SOB. BED IS LOCKED AND LOW, BED ALARMS ACTIVE, SIDE RAILS UPX2, AND CALL LIGHT IS WITHIN REACH. WILL CONTINUE TO MONITOR.
--- NOTE | 2020-05-15 19:11 | NUR ---
NURSE HAND-OFF: Important Events on Shift: Patient Status: stable/Full code Diet: regular Pending Orders: [] Pending Results/Labs:[] Pending MD notification:[] Latest Vital Signs: Temperature 97.9 , Pulse 110 , B/P 133 /78 , Respiratory Rate 19 , O2 SAT 97 , Nasal Cannula, O2 Flow Rate 2.0 . Vital Sign Comment: stable Latest [place] Fall Score: 35 Fall Risk: Medium Risk Safety Measures: Call light Within Reach, Bed Alarm Zone 1, Side Rails Side Rails x3, Bed position Low and Locked. Fall Precautions: Yellow Gown Door Sign Patient Fall Education Report given to Seth RN, pt in stable condition.
[2020-05-15] MEDS: Dyna-Hex 2% Top Sol 2oz TOPIC SCH (20:42)
[2020-05-16] VITALS: BP 118/80
[2020-05-16 04:00] VITALS: BP 119/78
[2020-05-16] MEDS: Heparin 5000 units/ml inj SUBQ SCH ×3 (06:00→21:16)
[2020-05-16] MEDS: HYDROcodone/Acetamin 10/325 tab ORAL PRN ×3 (06:00→21:29)
--- NOTE | 2020-05-16 06:41 | Hematology/Onc Progress Note ---
Assessment/Plan Assessment/Plan # Leukopenia COVID19++++++++++ --> hep and hiv are neg --> wbc 4-->3-->2.9->2->4.6--4.1-->3.6-->4.7-->3.6->4.1-->4.7-->3.8-->3->5 --> Neupogen 300 x1 04/21 --> isolation if anc<500 # Non-Hodgkins Lymphoma is s/p chemotherapy in the past --> to return to [facility] for further treatment --> likely for ct/pet as outpatient --> CT Here shows no e/o disease --> imaging has been reviewed thus far --> end date of 04/2020 # Anemia likely of chronic disease -- does not appear to have iron deficiency --> transfuse as needed, tibc and ferritin are cw acd --> hgb 7.8-->8.6-->8.5-->8.4->7.6-->10-->9.9->9.6-->8.7-->8-->9.2 --> no hemolysis is noted --> s/p transfusion on admission # Covid 19++ with SIRS (febrile, tachycardic) --> per pulm and id --> CXR with diffuse non-specific inflammatory/infectious process --> s/p Cefepime (04/14 - 04/15) # Hypokalemia # Hypomagnesia # Chronic Back pain # Full Code # Dvt ppx heparin sq Appreciate consultation and dw Rn Subjective HEENT: Denies: no symptoms, eye pain, blurred vision, tearing, double vision, ear pain, ear discharge, nose pain, nose congestion, throat pain, throat swelling, mouth pain, mouth swelling, other Cardiovascular: Denies: no symptoms, chest pain, edema, irregular heart rate, lightheadedness, palpitations, syncope, other Respiratory: Denies: no symptoms, cough, shortness of breath, SOB with excertion, SOB at rest, sputum, wheezing, other Gastrointestinal/Abdominal: Denies: no symptoms, abdomen distended, abdominal pain, black stools, tarry stools, blood in stool, constipated, diarrhea, difficulty swallowing, nausea, poor appetite, poor fluid intake, rectal bleeding, vomiting, other Genitourinary: Denies: no symptoms, burning, discharge, frequency, flank pain, hematuria, incontinence, pain, urgency, other Neurologic/Psychiatric: Denies: no symptoms, anxiety, depressed, emotional problems, headache, numbness, paresthesia, pre-existing deficit, seizure, tingling, tremors, weakness, other Endocrine: Denies: no symptoms, excessive sweating, flushing, intolerance to cold, intolerance to heat, increased hunger, increased thirst, increased urine, unexplained weight gain, unexplained weight loss, other Allergies: Coded Allergies: No Known Allergies (Unverified , 04/11/20) Subjective 04/17 is on room air, more comfortable, potential dc to snf 04/18 labs reviewed, no bleeding, meds noted, no night sweats 04/19 sleeping comfortably, no major events, no night sweats 04/20 meds noted, labs reviewed, wbc 2.9, hep and hiv is neg 04/21 labs reviewed, in am, the wbc was 2, to get neupogen x 1 dose now 04/23 labs noted, no bleeding, wbc 4, hgb remains low, but holding off trans 04/24 labs are pending for am, meds reviewed, no bleeding 04/25 meds reviewed, labs noted, no night sweats, reagan rn at bedside, no new events 04/26 labs reviewed, meds noted, no bleeding, wbc 3, hgb 7.6 04/27 dw rn at bedside, labs are noted, no bleeding, refusing heparin now sq 04/28 labs have been reviewed, is on room air, no bleeding, tachy 04/30 labs pending, no night sweats, meds reviewed, tachy, no night sweats, wants iv iron 05/01 dc planning, meds noted, for labs this am, no new events 05/02 meds reviewed, has been refusing care, continue heparin sq 05/03 labs reviewed, on 2lnc, no bleeding, remains on hep but refusing 05/04 meds ntoed, labs reviewed, no new changes, reagan RN 05/05 meds noted, no bleeding, labs reviewed, no f/c 05/06: no acute events reported, no resp distress 05/07: no resp distress, vss on RA dc planning continues 05/08 on [facility]co prn, nc, eaton, labs are noted 05/09 meds reviewed, labs pending, on nc, eaton 05/10 nc with eaton, no night sweats, meds have been reviewed 05/11 2lnc, bedbound no new changes, no new events, no bleeding 05/12: no acute events reported. No bleeding. 05/14 no new changes, no bleeding, meds noted, labs reviewed 05/15 labs are noted, no bleeding, meds reviewed, smear reviewed as well 1.12 awake, refusing meds, labs noted, has been refusing labs periodically Objective Objective Current Medications Medications (Trade) Dose Ordered Sig/Angelika Route PRN Reason Start Time Stop Time Status Last Admin Dose Admin Acetaminophen (Tylenol) 650 mg Q6H PRN ORAL Mild Pain (Pain Scale 1-3) 05/10/20 17:30 06/09/20 17:29 05/15/20 09:13 Acetaminophen (Tylenol) 650 mg Q6H PRN ORAL Temp >100.5 05/10/20 18:00 06/09/20 17:59 Acetaminophen/ Hydrocodone Bitart ([place] 10/325) 1 tab Q6H PRN ORAL Severe Pain (Pain Scale 7-10) 05/10/20 21:00 05/17/20 20:59 05/16/20 06:00 Acetaminophen/ Hydrocodone Bitart ([place] 5/325) 1 tab Q6H PRN ORAL Moderate Pain (Pain Scale 4-6) 05/10/20 18:00 05/17/20 17:59 05/14/20 15:57 Allopurinol (allopurinoL) 300 mg DAILY ORAL 05/12/20 09:00 06/11/20 08:59 05/15/20 08:54 Ascorbic Acid (Vitamin C) 500 mg DAILY ORAL 04/26/20 09:00 05/26/20 08:59 05/15/20 08:54 Baclofen (Lioresal) 10 mg THREE TIMES A DAY ORAL 05/11/20 13:00 06/10/20 12:59 Chlorhexidine Gluconate (Christy-Hex 2%) 1 applic Q24H TOPIC 04/25/20 20:00 07/24/20 19:59 05/15/20 20:42 Docusate Sodium (Colace) 100 mg TWICE A DAY ORAL 04/27/20 09:00 05/20/20 08:59 05/15/20 08:54 Dronabinol (Marinol) 5 mg BID ORAL 05/01/20 09:00 07/30/20 08:59 05/15/20 08:54 Heparin Sodium (Porcine) (Heparin 5000 units/ml) 5,000 units EVERY 8 HOURS SUBQ 04/24/20 22:00 06/08/20 21:59 05/05/20 05:38 Lactulose (Cephulac) 20 gm THREE TIMES A DAY ORAL 04/21/20 13:00 05/21/20 12:59 05/08/20 08:18 Linaclotide (Linzess) 290 mcg BEFORE BREAKFAST ORAL 04/26/20 06:30 07/25/20 06:29 05/16/20 06:00 Magnesium Oxide (Mag-Ox 400mg) 400 mg THREE TIMES A DAY ORAL 04/30/20 13:00 05/30/20 12:59 05/15/20 17:21 Morphine Sulfate (Morphine Sulfate) 2 mg Q3H PRN IVP Severe Pain (Pain Scale 7-10) 05/10/20 18:00 05/17/20 17:59 Morphine Sulfate (Morphine Sulfate) 4 mg Q3H PRN IVP SEVERE BREAKTHRU PAIN 05/10/20 18:00 05/17/20 17:59 Multivitamins (Multivitamins) 1 tab DAILY ORAL 04/26/20 09:00 05/26/20 08:59 05/15/20 08:54 Ondansetron HCl (Zofran) 4 mg Q6H PRN IVP Nausea & Vomiting 04/19/20 13:30 05/19/20 13:29 04/29/20 18:17 Polyethylene Glycol (Miralax) 17 gm DAILY ORAL 04/20/20 09:00 05/20/20 08:59 05/15/20 08:54 Last 24 Hour Vital Signs Date Time Temp Pulse Resp B/P (MAP) Pulse Ox O2 Delivery O2 Flow Rate FiO2 05/16/20 04:00 97.5 107 18 119/78 (92) 95 05/16/20 00:00 97.5 110 18 118/80 (93) 97 05/15/20 21:39 105/97 (100) 05/15/20 21:00 Room Air 05/15/20 20:00 98.1 119 18 94/59 (71) 99 05/15/20 16:00 97.9 110 19 133/78 (96) 97 05/15/20 13:20 98.6 05/15/20 12:00 97.5 118 20 130/78 (95) 99 05/15/20 09:43 98.6 05/15/20 09:00 Room Air 05/15/20 08:00 98.2 101 20 97/64 (75) 98 05/15/20 04:00 98.6 97 18 111/67 (82) 98 05/15/20 00:00 97.7 92 18 94/58 (70) 97 05/14/20 21:00 Room Air 05/14/20 20:00 97.9 100 18 100/68 (79) 98 05/14/20 17:36 Room Air 05/14/20 16:00 98.2 120 18 106/68 (81) 97 05/14/20 12:00 99.3 110 18 116/79 (91) 98 05/14/20 09:00 Room Air 05/14/20 08:00 97.9 113 18 93/69 (77) 96 05/14/20 07:00 96 Room Air 21 Intake and Output 05/15/20 05/16/20 19:00 07:00 Intake Total 800 ml 300 ml Output Total 900 ml Balance 800 ml -600 ml Intake Oral 300 ml Other 800 ml Output Urine Total 900 ml # Bowel Movements 1 Labs Test 05/13/20 08:00 05/13/20 08:10 05/14/20 08:35 05/15/20 05:55 White Blood Count 4.8 K/UL (4.8-10.8) 5.7 K/UL (4.8-10.8) 6.4 K/UL (4.8-10.8) Red Blood Count 3.35 M/UL (4.20-5.40) 3.25 M/UL (4.20-5.40) 3.00 M/UL (4.20-5.40) Hemoglobin 9.4 G/DL (12.0-16.0) 9.2 G/DL (12.0-16.0) 8.4 G/DL (12.0-16.0) Hematocrit 30.3 % (37.0-47.0) 29.7 % (37.0-47.0) 26.5 % (37.0-47.0) Mean Corpuscular Volume 91 FL (80-99) 91 FL (80-99) 88 FL (80-99) Mean Corpuscular Hemoglobin 28.0 PG (27.0-31.0) 28.3 PG (27.0-31.0) 27.9 PG (27.0-31.0) Mean Corpuscular Hemoglobin Concent 30.9 G/DL (32.0-36.0) 30.9 G/DL (32.0-36.0) 31.6 G/DL (32.0-36.0) Red Cell Distribution Width 21.8 % (11.6-14.8) 21.7 % (11.6-14.8) 21.9 % (11.6-14.8) Platelet Count 355 K/UL (150-450) 372 K/UL (150-450) 383 K/UL (150-450) Mean Platelet Volume 6.6 FL (6.5-10.1) 6.0 FL (6.5-10.1) 6.6 FL (6.5-10.1) Neutrophils (%) (Auto) 63.4 % (45.0-75.0) 69.1 % (45.0-75.0) 72.1 % (45.0-75.0) Lymphocytes (%) (Auto) 13.4 % (20.0-45.0) 12.2 % (20.0-45.0) 6.6 % (20.0-45.0) Monocytes (%) (Auto) 10.7 % (1.0-10.0) 6.7 % (1.0-10.0) 9.8 % (1.0-10.0) Eosinophils (%) (Auto) 9.1 % (0.0-3.0) 9.3 % (0.0-3.0) 9.3 % (0.0-3.0) Basophils (%) (Auto) 3.3 % (0.0-2.0) 2.7 % (0.0-2.0) 2.1 % (0.0-2.0) Sodium Level 141 MMOL/L (136-145) 141 MMOL/L (136-145) 139 MMOL/L (136-145) Potassium Level 4.3 MMOL/L (3.5-5.1) 3.8 MMOL/L (3.5-5.1) 4.1 MMOL/L (3.5-5.1) Chloride Level 104 MMOL/L (98-107) 104 MMOL/L (98-107) 103 MMOL/L (98-107) Carbon Dioxide Level 29 MMOL/L (21-32) 30 MMOL/L (21-32) 27 MMOL/L (21-32) Anion Gap 8 mmol/L (5-15) 7 mmol/L (5-15) Blood Urea Nitrogen 8 mg/dL (7-18) 9 mg/dL (7-18) 9 mg/dL (7-18) Creatinine 0.5 MG/DL (0.55-1.30) 0.6 MG/DL (0.55-1.30) 0.5 MG/DL (0.55-1.30) Estimat Glomerular Filtration Rate > 60 mL/min (>60) > 60 mL/min (>60) > 60 mL/min (>60) Glucose Level 93 MG/DL (74-106) 127 MG/DL (74-106) 88 MG/DL (74-106) Calcium Level 10.5 MG/DL (8.5-10.1) 10.4 MG/DL (8.5-10.1) 10.1 MG/DL (8.5-10.1) Test 05/16/20 05:25 Height (Feet): 5 Height (Inches): 7.00 Weight (Pounds): 150 Objective Gen: nad Pulm: ctab, no cwr CV: rrr Abd: soft, nt Ext: no cce Martinez Hill MD May 16, 2020 06:41
--- NOTE | 2020-05-16 06:41 | NUR ---
NURSE HAND-OFF: Important Events on Shift: pain management, performed wound care and dressing change Patient Status: stable Diet: regular Pending Orders: SNF placement Pending Results/Labs: N/A Pending MD notification: N/A Latest Vital Signs: Temperature 97.5 , Pulse 107 , B/P 119 /78 , Respiratory Rate 18 , O2 SAT 95 , Nasal Cannula, O2 Flow Rate 2.0 . Vital Sign Comment: stable Latest [place] Fall Score: 35 Fall Risk: Medium Risk Safety Measures: Call light Within Reach, Bed Alarm Zone 1, Side Rails Side Rails x3, Bed position Low and Locked. Fall Precautions: Yellow Gown Door Sign Patient Fall Education
[2020-05-16 06:49] LABS: BASOPHILS % (AUTO) 2.3 % (0.0-2.0); HEMATOCRIT 28.6 % (37.0-47.0); HEMOGLOBIN 9.1 G/DL (12.0-16.0); LYMPHOCYTES % (AUTO) 7.9 % (20.0-45.0); MEAN CORPUSCULAR VOLUME 90 FL (80-99); MONOCYTES % (AUTO) 8.2 % (1.0-10.0); NEUTROPHILS % (AUTO) 72.6 % (45.0-75.0); PLATELET COUNT 386 K/UL (150-450); RED BLOOD COUNT 3.17 M/UL (4.20-5.40); RED CELL DISTRIBUTION WIDTH 22.6 % (11.6-14.8); WHITE BLOOD COUNT 5.7 K/UL (4.8-10.8)
[2020-05-16 07:25] LABS: ANION GAP 10 mmol/L (5-15); BLOOD UREA NITROGEN 9 mg/dL (7-18); CALCIUM 10.2 MG/DL (8.5-10.1); CARBON DIOXIDE 27 MMOL/L (21-32); CHLORIDE 104 MMOL/L (98-107); CREATININE 0.7 MG/DL (0.55-1.30); POTASSIUM 3.7 MMOL/L (3.5-5.1); SODIUM 141 MMOL/L (136-145)
--- NOTE | 2020-05-16 07:38 | NUR ---
HAND-OFF: Report given to REA Harley.
[2020-05-16 08:00] VITALS: BP 99/59
--- NOTE | 2020-05-16 08:19 | General Progress Note ---
Subjective ROS Limited/Unobtainable: Yes Allergies: Coded Allergies: No Known Allergies (Unverified , 04/11/20) Objective Last 24 Hour Vital Signs Date Time Temp Pulse Resp B/P (MAP) Pulse Ox O2 Delivery O2 Flow Rate FiO2 05/16/20 04:00 97.5 107 18 119/78 (92) 95 05/16/20 00:00 97.5 110 18 118/80 (93) 97 05/15/20 21:39 105/97 (100) 05/15/20 21:00 Room Air 05/15/20 20:00 98.1 119 18 94/59 (71) 99 05/15/20 16:00 97.9 110 19 133/78 (96) 97 05/15/20 13:20 98.6 05/15/20 12:00 97.5 118 20 130/78 (95) 99 05/15/20 09:43 98.6 05/15/20 09:00 Room Air Intake and Output 05/15/20 05/16/20 19:00 07:00 Intake Total 800 ml 300 ml Output Total 900 ml Balance 800 ml -600 ml Intake Oral 300 ml Other 800 ml Output Urine Total 900 ml # Bowel Movements 1 Laboratory Tests 05/16/20 05:25: White Blood Count 5.7, Red Blood Count 3.17L, Hemoglobin 9.1L, Hematocrit 28.6L, Mean Corpuscular Volume 90, Mean Corpuscular Hemoglobin 28.7, Mean Corpuscular Hemoglobin Concent 31.8L, Red Cell Distribution Width 22.6H, Platelet Count 386, Mean Platelet Volume 6.4L, Neutrophils (%) (Auto) 72.6, Lymphocytes (%) (Auto) 7.9L, Monocytes (%) (Auto) 8.2, Eosinophils (%) (Auto) 9.0H, Basophils (%) (Auto) 2.3H, Sodium Level 141, Potassium Level 3.7, Chloride Level 104, Carbon Dioxide Level 27, Anion Gap 10, Blood Urea Nitrogen 9, Creatinine 0.7, Estimat Glomerular Filtration Rate > 60, Glucose Level 91, Calcium Level 10.2H Height (Feet): 5 Height (Inches): 7.00 Weight (Pounds): 150 General Appearance: no apparent distress EENT: normal ENT inspection Neck: supple Cardiovascular: normal rate Respiratory/Chest: decreased breath sounds Abdomen: normal bowel sounds, non tender, soft Extremities: non-tender Assessment/Plan Status: stable, progressing Assessment/Plan: iron def anemia mild elevated CEA lymphoma on chemo covid positive neg stool ob iv iron, completed fu H&H needs out patient fu for colonoscopy fu oncology CT reviewed colace miralax lactulose linzaira baldwinl patient encouraged to take her meds Patrick Carter MD May 16, 2020 08:19
[2020-05-16] MEDS: Ascorbic Acid 500mg tab ORAL SCH (08:46)
[2020-05-16] MEDS: Docusate 100mg cap ORAL SCH ×2 (08:46→18:56)
[2020-05-16] MEDS: Magnesium Oxide 400mg tab ORAL SCH ×3 (08:46→18:56)
[2020-05-16] MEDS: Dronabinol 2.5mg Cap ORAL SCH ×2 (08:46→18:56)
[2020-05-16] MEDS: Miralax 17gm pkt ORAL SCH (08:47)
[2020-05-16] MEDS: Lactulose 20gm/30ml UDC ORAL SCH ×3 (08:49→18:00)
--- NOTE | 2020-05-16 08:53 | Pulmonology Progress Note ---
Subjective ROS Limited/Unobtainable: Yes Interval Events: None new Constitutional: Reports: fever - resolved, fatigue HEENT: Repors: no symptoms Respiratory: Reports: no symptoms, dry cough Cardiovascular: Reports: no symptoms Gastrointestinal/Abdominal: Denies: nausea, vomiting, diarrhea Psychiatric: Denies: depression Skin: Denies: rash Musculoskeletal: Denies: pain Allergies: Coded Allergies: No Known Allergies (Unverified , 04/11/20) All Systems: reviewed and negative except above Objective Last 24 Hour Vital Signs Date Time Temp Pulse Resp B/P (MAP) Pulse Ox O2 Delivery O2 Flow Rate FiO2 05/16/20 04:00 97.5 107 18 119/78 (92) 95 05/16/20 00:00 97.5 110 18 118/80 (93) 97 05/15/20 21:39 105/97 (100) 05/15/20 21:00 Room Air 05/15/20 20:00 98.1 119 18 94/59 (71) 99 05/15/20 16:00 97.9 110 19 133/78 (96) 97 05/15/20 13:20 98.6 05/15/20 12:00 97.5 118 20 130/78 (95) 99 05/15/20 09:43 98.6 05/15/20 09:00 Room Air Intake and Output 05/15/20 05/16/20 19:00 07:00 Intake Total 800 ml 300 ml Output Total 900 ml Balance 800 ml -600 ml Intake Oral 300 ml Other 800 ml Output Urine Total 900 ml # Bowel Movements 1 Objective 05/16 no change 05/15 stable respiration on room air 05/12 no change respiratory-salomon 05/11 no change 05/10 no change, still on 1-2L NC 05/09 no change, still on 2L NC 05/08 no change respiratory-salomon; stable 05/07 stable saturation 05/06 no change 05/05 no change respiratory-salomon; stable no change 05/03 no change; AM labs unavailable 05/02 on and off 2 L NC; NAD 05/01 no change 04/28 on and off 1 L NC; NAD 04/27 on and off 1 L NC; NAD 04/26 still on 1 L NC; NAD 04/25 no change respiratory-salomon 04/24 no change 04/23 on and off 1 lpm NC 04/22 saturating well on and off 1 lpm NC 04/21 no change 04/20 pt saturating well on 2 lpm NC; NAD 04/19 pt saturating well on 2 lpm NC; NAD 04/18 pt saturating well on 2 lpm NC General Appearance: WD/WN, no acute distress HEENT: normocephalic, atraumatic Respiratory: lungs clear Cardiovascular: normal rate, regular rhythm Abdomen: soft, non tender Genitourinary: other - Morales Extremities: no edema Laboratory Tests 05/16/20 05:25: White Blood Count 5.7, Red Blood Count 3.17L, Hemoglobin 9.1L, Hematocrit 28.6L, Mean Corpuscular Volume 90, Mean Corpuscular Hemoglobin 28.7, Mean Corpuscular Hemoglobin Concent 31.8L, Red Cell Distribution Width 22.6H, Platelet Count 386, Mean Platelet Volume 6.4L, Neutrophils (%) (Auto) 72.6, Lymphocytes (%) (Auto) 7.9L, Monocytes (%) (Auto) 8.2, Eosinophils (%) (Auto) 9.0H, Basophils (%) (Auto) 2.3H, Sodium Level 141, Potassium Level 3.7, Chloride Level 104, Carbon Dioxide Level 27, Anion Gap 10, Blood Urea Nitrogen 9, Creatinine 0.7, Estimat Glomerular Filtration Rate > 60, Glucose Level 91, Calcium Level 10.2H Current Medications Medications (Trade) Dose Ordered Sig/Angelika Route PRN Reason Start Time Stop Time Status Last Admin Dose Admin Acetaminophen (Tylenol) 650 mg Q6H PRN ORAL Mild Pain (Pain Scale 1-3) 05/10/20 17:30 06/09/20 17:29 05/15/20 09:13 Acetaminophen (Tylenol) 650 mg Q6H PRN ORAL Temp >100.5 05/10/20 18:00 06/09/20 17:59 Acetaminophen/ Hydrocodone Bitart ([place] 10/325) 1 tab Q6H PRN ORAL Severe Pain (Pain Scale 7-10) 05/10/20 21:00 05/17/20 20:59 05/16/20 06:00 Acetaminophen/ Hydrocodone Bitart ([place] 5/325) 1 tab Q6H PRN ORAL Moderate Pain (Pain Scale 4-6) 05/10/20 18:00 05/17/20 17:59 05/14/20 15:57 Allopurinol (allopurinoL) 300 mg DAILY ORAL 05/12/20 09:00 06/11/20 08:59 05/16/20 08:46 Ascorbic Acid (Vitamin C) 500 mg DAILY ORAL 04/26/20 09:00 05/26/20 08:59 05/16/20 08:46 Baclofen (Lioresal) 10 mg THREE TIMES A DAY ORAL 05/11/20 13:00 06/10/20 12:59 Chlorhexidine Gluconate (Christy-Hex 2%) 1 applic Q24H TOPIC 04/25/20 20:00 07/24/20 19:59 05/15/20 20:42 Docusate Sodium (Colace) 100 mg TWICE A DAY ORAL 04/27/20 09:00 05/20/20 08:59 05/16/20 08:46 Dronabinol (Marinol) 5 mg BID ORAL 05/01/20 09:00 07/30/20 08:59 05/16/20 08:46 Heparin Sodium (Porcine) (Heparin 5000 units/ml) 5,000 units EVERY 8 HOURS SUBQ 04/24/20 22:00 06/08/20 21:59 05/05/20 05:38 Lactulose (Cephulac) 20 gm THREE TIMES A DAY ORAL 04/21/20 13:00 05/21/20 12:59 05/08/20 08:18 Linaclotide (Linzess) 290 mcg BEFORE BREAKFAST ORAL 04/26/20 06:30 07/25/20 06:29 05/16/20 06:00 Magnesium Oxide (Mag-Ox 400mg) 400 mg THREE TIMES A DAY ORAL 04/30/20 13:00 05/30/20 12:59 05/16/20 08:46 Morphine Sulfate (Morphine Sulfate) 2 mg Q3H PRN IVP Severe Pain (Pain Scale 7-10) 05/10/20 18:00 05/17/20 17:59 Morphine Sulfate (Morphine Sulfate) 4 mg Q3H PRN IVP SEVERE BREAKTHRU PAIN 05/10/20 18:00 05/17/20 17:59 Multivitamins (Multivitamins) 1 tab DAILY ORAL 04/26/20 09:00 05/26/20 08:59 05/15/20 08:54 Ondansetron HCl (Zofran) 4 mg Q6H PRN IVP Nausea & Vomiting 04/19/20 13:30 05/19/20 13:29 04/29/20 18:17 Polyethylene Glycol (Miralax) 17 gm DAILY ORAL 04/20/20 09:00 05/20/20 08:59 05/15/20 08:54 Assessment/Plan Assessment/Plan 1. COVID-19 infection - COVID-19 PCR 04/21 positive: now off isolation - no indication for steroid or remdesivir given her normoxemia - s/p cefepime - CXR with diffuse non-specific inflammatory/infectious process - cont supplemental oxygen as needed; currently saturating well on 2L NC - CT A/P/C - no obvious pna or abscess, cultures negative 2. Immunocompromised state with history of non-Hodgkin lymphoma. - h/o port line infection; s/p Vanco - to return to [facility] for further Tx 3. Fever; resolved - urine culture showed zee albicans - blood culture showed no growth 4. Hx of Hypertension. 5. Hx of gout. 6. Anemia - s/p pRBC 7. DVT ppx - on SCD 8. Low TSH; improving - Dr. Fermin following - no need for levothyroxine per Dr. Fermin 9. Zee UTI - Urine Cx showed zee albicans - On fluconazole 200mg daily for 5 days (05/04 - 05/09) per ID 10. Hypokalemia - potassium replaced per neprho 11. Hypomagnesemia - Mg replaced per nephro 12. 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
[2020-05-16] MEDS: HYDROcodone/Acetamin 5/325 tab ORAL PRN (09:44)
--- NOTE | 2020-05-16 11:47 | Cardiac Electrophysiology PN ---
Assessment/Plan Assessment/Plan 1. Sinus tachycardia due to sepsis, anemia and COVID. 2. COVID pneumonia. Now off isolation and on RA 3. Hypokalemia. 4. Hypomagnesemia. 5. History of non-Hodgkin lymphoma. 6. Leukopenia and anemia. FU Dr. Valencia S/P PRBC 7. Fever. 8. Low Mg replaced 9. Left Hip Fx; Likely Chronic > Patient states she fell 5 months ago. Also had hard fall on coccyx in 2018. Minimal pain in left hip Per Dr. Payan. Given patient bed bound risks > benefits. LUKE RN DC to SNIF pending Subjective Subjective Off Covid isolation. On RA awaiting SNIF placement Objective Last 24 Hour Vital Signs Date Time Temp Pulse Resp B/P (MAP) Pulse Ox O2 Delivery O2 Flow Rate FiO2 05/16/20 10:14 97.8 05/16/20 09:00 Room Air 05/16/20 08:00 97.8 101 19 99/59 (72) 97 05/16/20 04:00 97.5 107 18 119/78 (92) 95 05/16/20 00:00 97.5 110 18 118/80 (93) 97 05/15/20 21:39 105/97 (100) 05/15/20 21:00 Room Air 05/15/20 20:00 98.1 119 18 94/59 (71) 99 05/15/20 16:00 97.9 110 19 133/78 (96) 97 05/15/20 13:20 98.6 05/15/20 12:00 97.5 118 20 130/78 (95) 99 Intake and Output 05/15/20 05/16/20 19:00 07:00 Intake Total 800 ml 300 ml Output Total 900 ml Balance 800 ml -600 ml Intake Oral 300 ml Other 800 ml Output Urine Total 900 ml # Bowel Movements 1 Laboratory Tests Test 05/16/20 05:25 White Blood Count 5.7 K/UL (4.8-10.8) Red Blood Count 3.17 M/UL (4.20-5.40) L Hemoglobin 9.1 G/DL (12.0-16.0) L Hematocrit 28.6 % (37.0-47.0) L Mean Corpuscular Volume 90 FL (80-99) Mean Corpuscular Hemoglobin 28.7 PG (27.0-31.0) Mean Corpuscular Hemoglobin Concent 31.8 G/DL (32.0-36.0) L Red Cell Distribution Width 22.6 % (11.6-14.8) H Platelet Count 386 K/UL (150-450) Mean Platelet Volume 6.4 FL (6.5-10.1) L Neutrophils (%) (Auto) 72.6 % (45.0-75.0) Lymphocytes (%) (Auto) 7.9 % (20.0-45.0) L Monocytes (%) (Auto) 8.2 % (1.0-10.0) Eosinophils (%) (Auto) 9.0 % (0.0-3.0) H Basophils (%) (Auto) 2.3 % (0.0-2.0) H Sodium Level 141 MMOL/L (136-145) Potassium Level 3.7 MMOL/L (3.5-5.1) Chloride Level 104 MMOL/L (98-107) Carbon Dioxide Level 27 MMOL/L (21-32) Anion Gap 10 mmol/L (5-15) Blood Urea Nitrogen 9 mg/dL (7-18) Creatinine 0.7 MG/DL (0.55-1.30) Estimat Glomerular Filtration Rate > 60 mL/min (>60) Glucose Level 91 MG/DL (74-106) Calcium Level 10.2 MG/DL (8.5-10.1) H Objective HEAD AND NECK: No JVD. LUNGS: Coarse rhonchi. CARDIOVASCULAR: Regular S1 and S2 with no gallop or murmur. ABDOMEN: Soft. EXTREMITIES: No pitting edema. Ehsan Wan MD May 16, 2020 11:46
[2020-05-16 12:00] VITALS: BP 102/62
--- NOTE | 2020-05-16 12:04 | General Progress Note ---
Subjective Constitutional: Reports: weakness Allergies: Coded Allergies: No Known Allergies (Unverified , 04/11/20) All Systems: reviewed and negative except above Subjective sleepy calm Objective Last 24 Hour Vital Signs Date Time Temp Pulse Resp B/P (MAP) Pulse Ox O2 Delivery O2 Flow Rate FiO2 05/16/20 10:14 97.8 05/16/20 09:00 Room Air 05/16/20 08:00 97.8 101 19 99/59 (72) 97 05/16/20 04:00 97.5 107 18 119/78 (92) 95 05/16/20 00:00 97.5 110 18 118/80 (93) 97 05/15/20 21:39 105/97 (100) 05/15/20 21:00 Room Air 05/15/20 20:00 98.1 119 18 94/59 (71) 99 05/15/20 16:00 97.9 110 19 133/78 (96) 97 05/15/20 13:20 98.6 Intake and Output 05/15/20 05/16/20 19:00 07:00 Intake Total 800 ml 300 ml Output Total 900 ml Balance 800 ml -600 ml Intake Oral 300 ml Other 800 ml Output Urine Total 900 ml # Bowel Movements 1 Laboratory Tests 05/16/20 05:25: White Blood Count 5.7, Red Blood Count 3.17L, Hemoglobin 9.1L, Hematocrit 28.6L, Mean Corpuscular Volume 90, Mean Corpuscular Hemoglobin 28.7, Mean Corpuscular Hemoglobin Concent 31.8L, Red Cell Distribution Width 22.6H, Platelet Count 386, Mean Platelet Volume 6.4L, Neutrophils (%) (Auto) 72.6, Lymphocytes (%) (Auto) 7.9L, Monocytes (%) (Auto) 8.2, Eosinophils (%) (Auto) 9.0H, Basophils (%) (Auto) 2.3H, Sodium Level 141, Potassium Level 3.7, Chloride Level 104, Carbon Dioxide Level 27, Anion Gap 10, Blood Urea Nitrogen 9, Creatinine 0.7, Estimat Glomerular Filtration Rate > 60, Glucose Level 91, Calcium Level 10.2H Height (Feet): 5 Height (Inches): 7.00 Weight (Pounds): 150 General Appearance: lethargic EENT: normal ENT inspection Neck: normal alignment Cardiovascular: normal peripheral pulses, normal rate, regular rhythm Respiratory/Chest: chest wall non-tender, lungs clear, normal breath sounds Abdomen: normal bowel sounds, non tender, soft Extremities: normal inspection Edema: no edema noted Arm (L), no edema noted Arm (R), no edema noted Leg (L), no edema noted Leg (R), no edema noted Pedal (L), no edema noted Pedal (R), no edema noted Generalized Neurologic: motor weakness Skin: normal pigmentation, warm/dry Assessment/Plan Problem List: (1) Lymphoma ICD Codes: C85.90 - Non-Hodgkin lymphoma, unspecified, unspecified site SNOMED: 105438296 (2) Hip fracture ICD Codes: S72.009A - Fracture of unspecified part of neck of unspecified fem ur, initial encounter for closed fracture SNOMED: 914953211 (3) Anemia ICD Codes: D64.9 - Anemia, unspecified SNOMED: 724677459 Qualifiers: Qualified Codes: D64.9 - Anemia, unspecified (4) Abnormal thyroid function test ICD Codes: R94.6 - Abnormal results of thyroid function studies SNOMED: 974232683 (5) JIM (acute kidney injury) ICD Codes: N17.9 - Acute kidney failure, unspecified SNOMED: 0487262, 29144219 (6) COVID-19 ICD Codes: U07.1 - COVID-19 SNOMED: 213086440 Status: stable, progressing Assessment/Plan: o2 pulm tx abx gi heme eval cbc bmp am dc plan to [facility] Spencer Lopez DO May 16, 2020 12:04
--- NOTE | 2020-05-16 12:41 | Nephrology Progress Note ---
Assessment/Plan Plan #acute kidney injury likely due to vanco toxicity #hypokalemia- #hypomagnesemia #Acute on chronic anemia #h/p non- hodgkins lymphoma #possible sepsis #+ COVID #Femoral intertrochanteric hip fracture. - replete k and mag - Pulmonary eval - prbc transfusion prn - replete lytes - hemo-onc eval - ID eval - monitor CBC - avoid nephrotoxins - ortho eval - spine eval for L3 acute on chronic bone infarct, less likely neoplasm or infection? times spent 65 min Subjective ROS Limited/Unobtainable: No Constitutional: Reports: weakness HEENT: Denies: no symptoms, eye pain, blurred vision, tearing, double vision, ear pain, ear discharge, nose pain, nose congestion, throat pain, throat swelling, mouth pain, mouth swelling, other Genitourinary: Denies: no symptoms, burning, discharge, frequency, flank pain, hematuria, incontinence, pain, urgency, other Neurologic/Psychiatric: Denies: no symptoms, anxiety, depressed, emotional problems, headache, numbness, paresthesia, pre-existing deficit, seizure, tingling, tremors, weakness, other Subjective Cr better today mag and K low repleted hip fracture noted ortho consulted Impression: Minimal distention of the rectum with feces, could represent mild rectal fecal impaction. Equivocal slight thickening of the rectal wall and stranding of the perirectal fat, if real could indicate mild stercoral proctitis Comminuted fracture of the left femoral head, neck, and intertrochanteric region, ununited. Possibly acute, but abundant soft tissues surrounding the fracture area raises possibility that this could be chronic. Correlate with clinical findings Other findings as noted, including evidence of old T12 vertebral body compression fracture and prior vertebral augmentation procedure, Morales catheter, subcentimeter low-attenuation lesions which probably represent renal cysts, small sliding-type hiatal hernia Impression: Unusual signal abnormality of the posterolateral aspect of the L3 vertebral body on the right. This appears to be confined to the vertebral body marrow space. Prior CT scan in retrospect demonstrates sclerotic areas in the same location. Most likely differential consideration is an atypical hemangioma. Other possibilities include acute on chronic bone infarct, less likely neoplasm or infection No other unusual contrast enhancement. No findings to suggest discitis or epidural abscess. Objective Objective Last 24 Hour Vital Signs Date Time Temp Pulse Resp B/P (MAP) Pulse Ox O2 Delivery O2 Flow Rate FiO2 05/16/20 10:14 97.8 05/16/20 09:00 Room Air 05/16/20 08:00 97.8 101 19 99/59 (72) 97 05/16/20 04:00 97.5 107 18 119/78 (92) 95 05/16/20 00:00 97.5 110 18 118/80 (93) 97 05/15/20 21:39 105/97 (100) 05/15/20 21:00 Room Air 05/15/20 20:00 98.1 119 18 94/59 (71) 99 05/15/20 16:00 97.9 110 19 133/78 (96) 97 05/15/20 13:20 98.6 Intake and Output 05/15/20 05/16/20 19:00 07:00 Intake Total 800 ml 300 ml Output Total 900 ml Balance 800 ml -600 ml Intake Oral 300 ml Other 800 ml Output Urine Total 900 ml # Bowel Movements 1 Laboratory Tests 05/16/20 05:25: White Blood Count 5.7, Red Blood Count 3.17L, Hemoglobin 9.1L, Hematocrit 28.6L, Mean Corpuscular Volume 90, Mean Corpuscular Hemoglobin 28.7, Mean Corpuscular Hemoglobin Concent 31.8L, Red Cell Distribution Width 22.6H, Platelet Count 386, Mean Platelet Volume 6.4L, Neutrophils (%) (Auto) 72.6, Lymphocytes (%) (Auto) 7.9L, Monocytes (%) (Auto) 8.2, Eosinophils (%) (Auto) 9.0H, Basophils (%) (Auto) 2.3H, Sodium Level 141, Potassium Level 3.7, Chloride Level 104, Carbon Dioxide Level 27, Anion Gap 10, Blood Urea Nitrogen 9, Creatinine 0.7, Estimat Glomerular Filtration Rate > 60, Glucose Level 91, Calcium Level 10.2H Height (Feet): 5 Height (Inches): 7.00 Weight (Pounds): 150 Objective General Appearance: no apparent distress EENT: PERRL/EOMI Neck: non-tender, normal alignment Cardiovascular: normal peripheral pulses, normal rate Respiratory/Chest: chest wall non-tender, lungs clear Abdomen: normal bowel sounds, non tender Neurologic: alert, oriented x 3 Pirouz,Aslan M.D. May 16, 2020 12:41
[2020-05-16] MEDS ORDERED: HYDROcodone/Acetamin 5/325 tab ORAL PRN (13:33)
--- NOTE | 2020-05-16 14:10 | NUR ---
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
--- NOTE | 2020-05-16 15:18 | NUR ---
CASE MANAGEMENT:REVIEW SI;CHRONIC LT HIP FX. UTI. H/O NON-HODGKINS LYMPHOMA. 97.5 119 18 94/59 95% ON RA H/H 9.1/28.6 CA 10.2 IS;NORCO PO Q6 PRN ALLOPURINOL PO QD BACLOFEN PO TID MARINOL PO BID MAG-OX PO TID LINZESS PO QD LACTULOSE PO TID HEPARIN SQ Q8 MED SURG STATUS DCP;FROM [facility] PLANNING IN PROGRESS TO SNF
[2020-05-16 16:00] VITALS: BP 98/62
--- NOTE | 2020-05-16 19:54 | NUR ---
NURSE NOTES: Received patient awake, alert, verbal, resting in bed, comfortable.
[2020-05-16] MEDS: Dyna-Hex 2% Top Sol 2oz TOPIC SCH (20:03)
--- NOTE | 2020-05-16 20:08 | NUR ---
NURSE HAND-OFF: Important Events on Shift: N/A Patient Status: STABLE Diet: REGULAR Pending Orders: N/A Pending Results/Labs: N/A Pending MD notification: N/A Latest Vital Signs: Temperature 98.5 , Pulse 108 , B/P 98 /62 , Respiratory Rate 20 , O2 SAT 96 RA . Vital Sign Comment: STABLE Latest [place] Fall Score: 15 Fall Risk: Low Risk Safety Measures: Call light Within Reach, Bed Alarm Zone 1, Side Rails Side Rails x2, Bed position Low and Locked. Fall Precautions: Door Sign Patient Fall Education Report given to KEVEN LUCIA.
[2020-05-16 20:30] VITALS: BP 104/64
[2020-05-17] VITALS: BP 100/58
[2020-05-17 04:28] VITALS: BP 121/72
[2020-05-17] MEDS: Heparin 5000 units/ml inj SUBQ SCH ×3 (05:01→22:00)
[2020-05-17] MEDS: HYDROcodone/Acetamin 10/325 tab ORAL PRN ×3 (05:02→20:05)
--- NOTE | 2020-05-17 06:50 | Hematology/Onc Progress Note ---
Assessment/Plan Assessment/Plan # Leukopenia COVID19++++++++++ --> hep and hiv are neg --> wbc 4-->3-->2.9->2->4.6--4.1-->3.6-->4.7-->3.6->4.1-->4.7-->3.8-->3->5 --> Neupogen 300 x1 04/21 --> isolation if anc<500 # Non-Hodgkins Lymphoma is s/p chemotherapy in the past --> to return to [facility] for further treatment --> likely for ct/pet as outpatient --> CT Here shows no e/o disease --> imaging has been reviewed thus far --> end date of 04/2020 # Anemia likely of chronic disease -- does not appear to have iron deficiency --> transfuse as needed, tibc and ferritin are cw acd --> hgb 7.8-->8.6-->8.5-->8.4->7.6-->10-->9.9->9.6-->8.7-->8-->9.2-->9.1 --> no hemolysis is noted --> s/p transfusion on admission # Covid 19++ with SIRS (febrile, tachycardic) --> per pulm and id --> CXR with diffuse non-specific inflammatory/infectious process --> s/p Cefepime (04/14 - 04/15) # Hypokalemia # Hypomagnesia # Chronic Back pain # Full Code # Dvt ppx heparin sq Appreciate consultation and dw Rn Subjective HEENT: Denies: no symptoms, eye pain, blurred vision, tearing, double vision, ear pain, ear discharge, nose pain, nose congestion, throat pain, throat swelling, mouth pain, mouth swelling, other Cardiovascular: Denies: no symptoms, chest pain, edema, irregular heart rate, lightheadedness, palpitations, syncope, other Respiratory: Denies: no symptoms, cough, shortness of breath, SOB with excert ion, SOB at rest, sputum, wheezing, other Gastrointestinal/Abdominal: Denies: no symptoms, abdomen distended, abdominal pain, black stools, tarry stools, blood in stool, constipated, diarrhea, difficulty swallowing, nausea, poor appetite, poor fluid intake, rectal bleeding, vomiting, other Genitourinary: Denies: no symptoms, burning, discharge, frequency, flank pain, hematuria, incontinence, pain, urgency, other Neurologic/Psychiatric: Denies: no symptoms, anxiety, depressed, emotional problems, headache, numbness, paresthesia, pre-existing deficit, seizure, tingling, tremors, weakness, other Endocrine: Denies: no symptoms, excessive sweating, flushing, intolerance to cold, intolerance to heat, increased hunger, increased thirst, increased urine, unexplained weight gain, unexplained weight loss, other Allergies: Coded Allergies: No Known Allergies (Unverified , 04/11/20) Subjective 04/17 is on room air, more comfortable, potential dc to snf 04/18 labs reviewed, no bleeding, meds noted, no night sweats 04/19 sleeping comfortably, no major events, no night sweats 04/20 meds noted, labs reviewed, wbc 2.9, hep and hiv is neg 04/21 labs reviewed, in am, the wbc was 2, to get neupogen x 1 dose now 04/23 labs noted, no bleeding, wbc 4, hgb remains low, but holding off trans 04/24 labs are pending for am, meds reviewed, no bleeding 04/25 meds reviewed, labs noted, no night sweats, reagan rn at bedside, no new events 04/26 labs reviewed, meds noted, no bleeding, wbc 3, hgb 7.6 04/27 reagan rn at bedside, labs are noted, no bleeding, refusing heparin now sq 04/28 labs have been reviewed, is on room air, no bleeding, tachy 04/30 labs pending, no night sweats, meds reviewed, tachy, no night sweats, wants iv iron 05/01 dc planning, meds noted, for labs this am, no new events 05/02 meds reviewed, has been refusing care, continue heparin sq 05/03 labs reviewed, on 2lnc, no bleeding, remains on hep but refusing 05/04 meds ntoed, labs reviewed, no new changes, reagan RN 05/05 meds noted, no bleeding, labs reviewed, no f/c 1/2: no acute events reported, no resp distress 05/07: no resp distress, vss on RA dc planning continues 05/08 on norco prn, nc, eaton, labs are noted 05/09 meds reviewed, labs pending, on nc, eaton 05/10 nc with eaton, no night sweats, meds have been reviewed 05/11 2lnc, bedbound no new changes, no new events, no bleeding 05/12: no acute events reported. No bleeding. 05/14 no new changes, no bleeding, meds noted, labs reviewed 05/15 labs are noted, no bleeding, meds reviewed, smear reviewed as well 05/16 awake, refusing meds, labs noted, has been refusing labs periodically 05/17 meds noted, no bleeding, no major events, hgb 9.1 Objective Objective Current Medications Medications (Trade) Dose Ordered Sig/Angelika Route PRN Reason Start Time Stop Time Status Last Admin Dose Admin Acetaminophen (Tylenol) 650 mg Q6H PRN ORAL Mild Pain (Pain Scale 1-3) 05/10/20 17:30 06/09/20 17:29 05/15/20 09:13 Acetaminophen (Tylenol) 650 mg Q6H PRN ORAL Temp >100.5 05/10/20 18:00 06/09/20 17:59 Acetaminophen/ Hydrocodone Bitart (Irwin 10/325) 1 tab Q6H PRN ORAL Severe Pain (Pain Scale 7-10) 05/16/20 13:33 05/23/20 13:32 05/17/20 05:02 Acetaminophen/ Hydrocodone Bitart (Irwin 5/325) 1 tab Q6H PRN ORAL Moderate Pain (Pain Scale 4-6) 05/16/20 13:33 05/23/20 13:32 Allopurinol (allopurinoL) 300 mg DAILY ORAL 05/12/20 09:00 06/11/20 08:59 05/16/20 08:46 Ascorbic Acid (Vitamin C) 500 mg DAILY ORAL 04/26/20 09:00 05/26/20 08:59 05/16/20 08:46 Baclofen (Lioresal) 10 mg THREE TIMES A DAY ORAL 05/11/20 13:00 06/10/20 12:59 Chlorhexidine Gluconate (Christy-Hex 2%) 1 applic Q24H TOPIC 04/25/20 20:00 07/24/20 19:59 05/16/20 20:03 Docusate Sodium (Colace) 100 mg TWICE A DAY ORAL 04/27/20 09:00 05/20/20 08:59 05/16/20 18:56 Dronabinol (Marinol) 5 mg BID ORAL 05/01/20 09:00 07/30/20 08:59 05/16/20 18:56 Heparin Sodium (Porcine) (Heparin 5000 units/ml) 5,000 units EVERY 8 HOURS SUBQ 04/24/20 22:00 06/08/20 21:59 05/05/20 05:38 Lactulose (Cephulac) 20 gm THREE TIMES A DAY ORAL 04/21/20 13:00 05/21/20 12:59 05/08/20 08:18 Linaclotide (Linzess) 290 mcg BEFORE BREAKFAST ORAL 04/26/20 06:30 07/25/20 06:29 05/17/20 05:01 Magnesium Oxide (Mag-Ox 400mg) 400 mg THREE TIMES A DAY ORAL 04/30/20 13:00 05/30/20 12:59 05/16/20 18:56 Morphine Sulfate (Morphine Sulfate) 2 mg Q3H PRN IVP Severe Pain (Pain Scale 7-10) 05/16/20 13:33 05/23/20 13:32 Morphine Sulfate (Morphine Sulfate) 4 mg Q3H PRN IVP SEVERE BREAKTHRU PAIN 05/16/20 13:33 05/23/20 13:32 Multivitamins (Multivitamins) 1 tab DAILY ORAL 04/26/20 09:00 05/26/20 08:59 05/16/20 08:59 Ondansetron HCl (Zofran) 4 mg Q6H PRN IVP Nausea & Vomiting 04/19/20 13:30 05/19/20 13:29 04/29/20 18:17 Polyethylene Glycol (Miralax) 17 gm DAILY ORAL 04/20/20 09:00 05/20/20 08:59 05/15/20 08:54 Last 24 Hour Vital Signs Date Time Temp Pulse Resp B/P (MAP) Pulse Ox O2 Delivery O2 Flow Rate FiO2 05/17/20 05:32 98.1 05/17/20 04:28 98.1 106 19 121/72 (88) 98 05/17/20 00:00 97.7 114 20 100/58 (72) 93 05/16/20 21:54 98.2 05/16/20 20:30 98.2 115 20 104/64 (77) 97 05/16/20 20:08 Room Air 05/16/20 16:00 98.5 108 20 98/62 (74) 96 05/16/20 14:16 98.1 05/16/20 12:00 98.1 107 19 102/62 (75) 97 05/16/20 10:14 97.8 05/16/20 09:00 Room Air 05/16/20 08:00 97.8 101 19 99/59 (72) 97 05/16/20 04:00 97.5 107 18 119/78 (92) 95 05/16/20 00:00 97.5 110 18 118/80 (93) 97 05/15/20 21:39 105/97 (100) 05/15/20 21:00 Room Air 05/15/20 20:00 98.1 119 18 94/59 (71) 99 05/15/20 16:00 97.9 110 19 133/78 (96) 97 05/15/20 13:20 98.6 05/15/20 12:00 97.5 118 20 130/78 (95) 99 05/15/20 09:43 98.6 05/15/20 09:00 Room Air 05/15/20 08:00 98.2 101 20 97/64 (75) 98 Intake and Output 05/16/20 05/17/20 19:00 07:00 Intake Total 800 ml 360 ml Output Total 2200 ml Balance 800 ml -1840 ml Other 800 ml 360 ml Output Urine Total 2200 ml # Bowel Movements 1 1 Labs Test 05/14/20 08:35 05/15/20 05:55 05/16/20 05:25 White Blood Count 5.7 K/UL (4.8-10.8) 6.4 K/UL (4.8-10.8) 5.7 K/UL (4.8-10.8) Red Blood Count 3.25 M/UL (4.20-5.40) 3.00 M/UL (4.20-5.40) 3.17 M/UL (4.20-5.40) Hemoglobin 9.2 G/DL (12.0-16.0) 8.4 G/DL (12.0-16.0) 9.1 G/DL (12.0-16.0) Hematocrit 29.7 % (37.0-47.0) 26.5 % (37.0-47.0) 28.6 % (37.0-47.0) Mean Corpuscular Volume 91 FL (80-99) 88 FL (80-99) 90 FL (80-99) Mean Corpuscular Hemoglobin 28.3 PG (27.0-31.0) 27.9 PG (27.0-31.0) 28.7 PG (27.0-31.0) Mean Corpuscular Hemoglobin Concent 30.9 G/DL (32.0-36.0) 31.6 G/DL (32.0-36.0) 31.8 G/DL (32.0-36.0) Red Cell Distribution Width 21.7 % (11.6-14.8) 21.9 % (11.6-14.8) 22.6 % (11.6-14.8) Platelet Count 372 K/UL (150-450) 383 K/UL (150-450) 386 K/UL (150-450) Mean Platelet Volume 6.0 FL (6.5-10.1) 6.6 FL (6.5-10.1) 6.4 FL (6.5-10.1) Neutrophils (%) (Auto) 69.1 % (45.0-75.0) 72.1 % (45.0-75.0) 72.6 % (45.0-75.0) Lymphocytes (%) (Auto) 12.2 % (20.0-45.0) 6.6 % (20.0-45.0) 7.9 % (20.0-45.0) Monocytes (%) (Auto) 6.7 % (1.0-10.0) 9.8 % (1.0-10.0) 8.2 % (1.0-10.0) Eosinophils (%) (Auto) 9.3 % (0.0-3.0) 9.3 % (0.0-3.0) 9.0 % (0.0-3.0) Basophils (%) (Auto) 2.7 % (0.0-2.0) 2.1 % (0.0-2.0) 2.3 % (0.0-2.0) Sodium Level 141 MMOL/L (136-145) 139 MMOL/L (136-145) 141 MMOL/L (136-145) Potassium Level 3.8 MMOL/L (3.5-5.1) 4.1 MMOL/L (3.5-5.1) 3.7 MMOL/L (3.5-5.1) Chloride Level 104 MMOL/L (98-107) 103 MMOL/L (98-107) 104 MMOL/L (98-107) Carbon Dioxide Level 30 MMOL/L (21-32) 27 MMOL/L (21-32) 27 MMOL/L (21-32) Anion Gap 7 mmol/L (5-15) 10 mmol/L (5-15) Blood Urea Nitrogen 9 mg/dL (7-18) 9 mg/dL (7-18) 9 mg/dL (7-18) Creatinine 0.6 MG/DL (0.55-1.30) 0.5 MG/DL (0.55-1.30) 0.7 MG/DL (0.55-1.30) Estimat Glomerular Filtration Rate > 60 mL/min (>60) > 60 mL/min (>60) > 60 mL/min (>60) Glucose Level 127 MG/DL (74-106) 88 MG/DL (74-106) 91 MG/DL (74-106) Calcium Level 10.4 MG/DL (8.5-10.1) 10.1 MG/DL (8.5-10.1) 10.2 MG/DL (8.5-10.1) Height (Feet): 5 Height (Inches): 7.00 Weight (Pounds): 150 Objective Gen: nad Pulm: ctab, no cwr CV: rrr Abd: soft, nt Ext: no cce Martinez Hill MD May 17, 2020 06:50
--- NOTE | 2020-05-17 07:01 | NUR ---
HAND-OFF: Report given to Esau Quintero RN.
--- NOTE | 2020-05-17 07:15 | NUR ---
NURSE NOTES: Handoff received from Sybil LUCIA. Patient is awake and alert, no reports of pain or discomfort at this time, no signs of acute distress. No IV access, per RN MD is aware. Breathing is even and unlabored on room air. Morales catheter is patent and draining to gravity. Bed is low and locked, side rails up x2, call light is within reach.
[2020-05-17 08:00] VITALS: BP 99/67
[2020-05-17] MEDS: Dronabinol 2.5mg Cap ORAL SCH ×2 (08:56→17:03)
[2020-05-17] MEDS: Ascorbic Acid 500mg tab ORAL SCH (08:56)
[2020-05-17] MEDS: Magnesium Oxide 400mg tab ORAL SCH ×3 (08:56→17:02)
[2020-05-17] MEDS: Lactulose 20gm/30ml UDC ORAL SCH ×3 (08:59→17:02)
[2020-05-17] MEDS: Docusate 100mg cap ORAL SCH ×2 (09:00→17:02)
[2020-05-17] MEDS: Miralax 17gm pkt ORAL SCH (09:00)
--- NOTE | 2020-05-17 09:07 | General Progress Note ---
Subjective ROS Limited/Unobtainable: No Allergies: Coded Allergies: No Known Allergies (Unverified , 04/11/20) Objective Last 24 Hour Vital Signs Date Time Temp Pulse Resp B/P (MAP) Pulse Ox O2 Delivery O2 Flow Rate FiO2 05/17/20 05:32 98.1 05/17/20 04:28 98.1 106 19 121/72 (88) 98 05/17/20 00:00 97.7 114 20 100/58 (72) 93 05/16/20 21:54 98.2 05/16/20 20:30 98.2 115 20 104/64 (77) 97 05/16/20 20:08 Room Air 05/16/20 16:00 98.5 108 20 98/62 (74) 96 05/16/20 14:16 98.1 05/16/20 12:00 98.1 107 19 102/62 (75) 97 05/16/20 10:14 97.8 Intake and Output 05/16/20 05/17/20 19:00 07:00 Intake Total 800 ml 360 ml Output Total 2200 ml Balance 800 ml -1840 ml Other 800 ml 360 ml Output Urine Total 2200 ml # Bowel Movements 1 1 Height (Feet): 5 Height (Inches): 7.00 Weight (Pounds): 150 General Appearance: no apparent distress EENT: normal ENT inspection Neck: supple Cardiovascular: normal rate Respiratory/Chest: decreased breath sounds Abdomen: normal bowel sounds, non tender, soft Extremities: non-tender Assessment/Plan Status: stable, progressing Assessment/Plan: iron def anemia mild elevated CEA lymphoma on chemo covid positive neg stool ob iv iron, completed fu H&H needs out patient fu for colonoscopy fu oncology CT reviewed colace miralax lactulose linzess beulahnol patient encouraged to take her meds pending possible Patrick Laureano MD May 17, 2020 09:07
--- NOTE | 2020-05-17 09:12 | General Progress Note ---
Subjective Constitutional: Reports: weakness Allergies: Coded Allergies: No Known Allergies (Unverified , 04/11/20) All Systems: reviewed and negative except above Subjective sleepy calm Objective Last 24 Hour Vital Signs Date Time Temp Pulse Resp B/P (MAP) Pulse Ox O2 Delivery O2 Flow Rate FiO2 05/17/20 05:32 98.1 05/17/20 04:28 98.1 106 19 121/72 (88) 98 05/17/20 00:00 97.7 114 20 100/58 (72) 93 05/16/20 21:54 98.2 05/16/20 20:30 98.2 115 20 104/64 (77) 97 05/16/20 20:08 Room Air 05/16/20 16:00 98.5 108 20 98/62 (74) 96 05/16/20 14:16 98.1 05/16/20 12:00 98.1 107 19 102/62 (75) 97 05/16/20 10:14 97.8 Intake and Output 05/16/20 05/17/20 19:00 07:00 Intake Total 800 ml 360 ml Output Total 2200 ml Balance 800 ml -1840 ml Other 800 ml 360 ml Output Urine Total 2200 ml # Bowel Movements 1 1 Height (Feet): 5 Height (Inches): 7.00 Weight (Pounds): 150 General Appearance: confused EENT: normal ENT inspection Neck: normal alignment Cardiovascular: normal peripheral pulses, normal rate, regular rhythm Respiratory/Chest: chest wall non-tender, lungs clear, normal breath sounds Abdomen: normal bowel sounds, non tender, soft Extremities: normal inspection Edema: no edema noted Arm (L), no edema noted Arm (R), no edema noted Leg (L), no edema noted Leg (R), no edema noted Pedal (L), no edema noted Pedal (R), no edema noted Generalized Neurologic: motor weakness Skin: normal pigmentation, warm/dry Assessment/Plan Problem List: (1) Lymphoma ICD Codes: C85.90 - Non-Hodgkin lymphoma, unspecified, unspecified site SNOMED: 080586895 (2) Hip fracture ICD Codes: S72.009A - Fracture of unspecified part of neck of unspecified femur, initial encounter for closed fracture SNOMED: 868618827 (3) Anemia ICD Codes: D64.9 - Anemia, unspecified SNOMED: 205781932 Qualifiers: Qualified Codes: D64.9 - Anemia, unspecified (4) Abnormal thyroid function test ICD Codes: R94.6 - Abnormal results of thyroid function studies SNOMED: 045263352 (5) JIM (acute kidney injury) ICD Codes: N17.9 - Acute kidney failure, unspecified SNOMED: 7911026, 51520221 (6) COVID-19 ICD Codes: U07.1 - COVID-19 SNOMED: 536036809 Status: stable, progressing Assessment/Plan: o2 pulm tx abx gi heme eval cbc bmp am dc plan to snf Spencer Lopez DO May 17, 2020 09:12
[2020-05-17 09:56] LABS: BASOPHILS % (AUTO) 1.9 % (0.0-2.0); HEMATOCRIT 30.3 % (37.0-47.0); HEMOGLOBIN 9.3 G/DL (12.0-16.0); LYMPHOCYTES % (AUTO) 10.4 % (20.0-45.0); MEAN CORPUSCULAR VOLUME 91 FL (80-99); MONOCYTES % (AUTO) 5.8 % (1.0-10.0); NEUTROPHILS % (AUTO) 73.9 % (45.0-75.0); PLATELET COUNT 441 K/UL (150-450); RED BLOOD COUNT 3.32 M/UL (4.20-5.40); RED CELL DISTRIBUTION WIDTH 21.3 % (11.6-14.8); WHITE BLOOD COUNT 6.9 K/UL (4.8-10.8)
[2020-05-17 10:05] LABS: ANION GAP 11 mmol/L (5-15); BLOOD UREA NITROGEN 8 mg/dL (7-18); CALCIUM 10.3 MG/DL (8.5-10.1); CARBON DIOXIDE 25 MMOL/L (21-32); CHLORIDE 104 MMOL/L (98-107); CREATININE 0.6 MG/DL (0.55-1.30); POTASSIUM 3.4 MMOL/L (3.5-5.1); SODIUM 140 MMOL/L (136-145)
--- NOTE | 2020-05-17 10:23 | Cardiac Electrophysiology PN ---
Assessment/Plan Assessment/Plan 1. Sinus tachycardia due to sepsis, anemia and COVID. Resolved 2. COVID pneumonia. Now off isolation and on RA 3. Hypokalemia and Hypomagnesemia.Replaced 5. History of non-Hodgkin lymphoma. 6. Leukopenia and anemia. FU Dr. Valencia S/P PRBC 7. Left Hip Fx; Likely Chronic > Patient states she fell 5 months ago. Also had hard fall on coccyx in 2018. Minimal pain in left hip Per Dr. Payan. Given patient bed bound risks > benefits. DW RN DC to [facility] pending Subjective Subjective Off Covid isolation. On RA awaiting placement Objective Last 24 Hour Vital Signs Date Time Temp Pulse Resp B/P (MAP) Pulse Ox O2 Delivery O2 Flow Rate FiO2 05/17/20 09:00 Room Air 05/17/20 08:00 97.6 108 19 99/67 (78) 97 05/17/20 05:32 98.1 05/17/20 04:28 98.1 106 19 121/72 (88) 98 05/17/20 00:00 97.7 114 20 100/58 (72) 93 05/16/20 21:54 98.2 05/16/20 20:30 98.2 115 20 104/64 (77) 97 05/16/20 20:08 Room Air 05/16/20 16:00 98.5 108 20 98/62 (74) 96 05/16/20 14:16 98.1 05/16/20 12:00 98.1 107 19 102/62 (75) 97 Intake and Output 05/16/20 05/17/20 19:00 07:00 Intake Total 800 ml 360 ml Output Total 2200 ml Balance 800 ml -1840 ml Other 800 ml 360 ml Output Urine Total 2200 ml # Bowel Movements 1 1 Laboratory Tests Test 05/17/20 09:15 White Blood Count Pending Red Blood Count Pending Hemoglobin Pending Hematocrit Pending Mean Corpuscular Volume Pending Mean Corpuscular Hemoglobin Pending Mean Corpuscular Hemoglobin Concent Pending Red Cell Distribution Width Pending Platelet Count Pending Mean Platelet Volume Pending Neutrophils (%) (Auto) Pending Lymphocytes (%) (Auto) Pending Monocytes (%) (Auto) Pending Eosinophils (%) (Auto) Pending Basophils (%) (Auto) Pending Sodium Level 140 MMOL/L (136-145) Potassium Level 3.4 MMOL/L (3.5-5.1) L Chloride Level 104 MMOL/L (98-107) Carbon Dioxide Level 25 MMOL/L (21-32) Anion Gap 11 mmol/L (5-15) Blood Urea Nitrogen 8 mg/dL (7-18) Creatinine 0.6 MG/DL (0.55-1.30) Estimat Glomerular Filtration Rate > 60 mL/min (>60) Glucose Level 97 MG/DL (74-106) Calcium Level 10.3 MG/DL (8.5-10.1) H Objective HEAD AND NECK: No JVD. LUNGS: Coarse rhonchi. CARDIOVASCULAR: Regular S1 and S2 with no gallop or murmur. ABDOMEN: Soft. EXTREMITIES: No pitting edema. Ehsan Wan MD May 17, 2020 10:23
--- NOTE | 2020-05-17 11:28 | NUR ---
NURSE NOTES: Received report from REA Cifuentes, Pt is AAOx4, bed bound. Still noted generalized pain. Will provide prn pain medication as ordered. No respiratory distress noted. No IV site, RN will try to start new IV. MD is aware per previous shift. Morales catheter patent and intact, draining yellow urine well via gravity. bed is locked and placed in lowest position with bed alarm on. Will continue to monitor
[2020-05-17 12:00] VITALS: BP 105/62
--- NOTE | 2020-05-17 13:13 | Nephrology Progress Note ---
Assessment/Plan Plan #acute kidney injury likely due to vanco toxicity #hypokalemia- #hypomagnesemia #Acute on chronic anemia #h/p non- hodgkins lymphoma #possible sepsis #+ COVID #Femoral intertrochanteric hip fracture. - replete k and mag - Pulmonary eval - prbc transfusion prn - replete lytes - hemo-onc eval - ID eval - monitor CBC - avoid nephrotoxins - ortho eval - spine eval for L3 acute on chronic bone infarct, less likely neoplasm or infection? times spent 65 min Subjective Subjective Cr better today mag and K low repleted hip fracture noted ortho consulted Impression: Minimal distention of the rectum with feces, could represent mild rectal fecal impaction. Equivocal slight thickening of the rectal wall and stranding of the perirectal fat, if real could indicate mild stercoral proctitis Comminuted fracture of the left femoral head, neck, and intertrochanteric region , ununited. Possibly acute, but abundant soft tissues surrounding the fracture area raises possibility that this could be chronic. Correlate with clinical findings Other findings as noted, including evidence of old T12 vertebral body compression fracture and prior vertebral augmentation procedure, Morales catheter, subcentimeter low-attenuation lesions which probably represent renal cysts, small sliding-type hiatal hernia Impression: Unusual signal abnormality of the posterolateral aspect of the L3 vertebral body on the right. This appears to be confined to the vertebral body marrow space. Prior CT scan in retrospect demonstrates sclerotic areas in the same location. Most likely differential consideration is an atypical hemangioma. Other possibilities include acute on chronic bone infarct, less likely neoplasm or infection No other unusual contrast enhancement. No findings to suggest discitis or epidural abscess. Objective Objective Last 24 Hour Vital Signs Date Time Temp Pulse Resp B/P (MAP) Pulse Ox O2 Delivery O2 Flow Rate FiO2 05/17/20 12:00 97.6 100 19 105/62 (76) 96 05/17/20 09:00 Room Air 05/17/20 08:00 97.6 108 19 99/67 (78) 97 05/17/20 05:32 98.1 05/17/20 04:28 98.1 106 19 121/72 (88) 98 05/17/20 00:00 97.7 114 20 100/58 (72) 93 05/16/20 21:54 98.2 05/16/20 20:30 98.2 115 20 104/64 (77) 97 05/16/20 20:08 Room Air 05/16/20 16:00 98.5 108 20 98/62 (74) 96 05/16/20 14:16 98.1 Intake and Output 05/16/20 05/17/20 19:00 07:00 Intake Total 800 ml 360 ml Output Total 2200 ml Balance 800 ml -1840 ml Other 800 ml 360 ml Output Urine Total 2200 ml # Bowel Movements 1 1 Laboratory Tests 05/17/20 09:15: White Blood Count 6.9, Red Blood Count 3.32L, Hemoglobin 9.3L, Hematocrit 30.3L, Mean Corpuscular Volume 91, Mean Corpuscular Hemoglobin 28.0, Mean Corpuscular Hemoglobin Concent 30.7L, Red Cell Distribution Width 21.3H, Platelet Count 441, Mean Platelet Volume 6.3L, Neutrophils (%) (Auto) 73.9, Lymphocytes (%) (Auto) 10.4L, Monocytes (%) (Auto) 5.8, Eosinophils (%) (Auto) 8.0H, Basophils (%) (Auto) 1.9, Sodium Level 140, Potassium Level 3.4L, Chloride Level 104, Carbon Dioxide Level 25, Anion Gap 11, Blood Urea Nitrogen 8, Creatinine 0.6, Estimat Glomerular Filtration Rate > 60, Glucose Level 97, Calcium Level 10.3H Height (Feet): 5 Height (Inches): 7.00 Weight (Pounds): 150 Objective General Appearance: no apparent distress EENT: PERRL/EOMI Neck: non-tender, normal alignment Cardiovascular: normal peripheral pulses, normal rate Respiratory/Chest: chest wall non-tender, lungs clear Abdomen: normal bowel sounds, non tender Neurologic: alert, oriented x 3 Kallie Dykes M.D. May 17, 2020 13:13
--- NOTE | 2020-05-17 13:52 | NUR ---
CASE MANAGEMENT:REVIEW SI;CHRONIC LT HIP FX. UTI. H/O NON-HODGKINS LYMPHOMA. 98.1 114 20 99/67 93% ON RA H/H 9.3/30.3 K+ 3.4 IS;NORCO PO Q6 PRN ALLOPURINOL PO QD BACLOFEN PO TID MARINOL PO BID MAG-OX PO TID LINZESS PO QD VITAMIN C PO AD HEPARIN SQ Q8 LACTULOSE PO TID MED SURG STATUS DCP;SNF PLACEMENT
[2020-05-17] MEDS: Morphine Sulfate 4mg/ml Inj (IV USE ONLY) IVP PRN (14:23)
--- NOTE | 2020-05-17 14:42 | Pulmonology Progress Note ---
Subjective ROS Limited/Unobtainable: No Interval Events: None new Constitutional: Reports: fever - resolved, fatigue HEENT: Repors: no symptoms Respiratory: Reports: no symptoms, dry cough Cardiovascular: Reports: no symptoms Gastrointestinal/Abdominal: Denies: nausea, vomiting, diarrhea Psychiatric: Denies: depression Skin: Denies: rash Musculoskeletal: Denies: pain Allergies: Coded Allergies: No Known Allergies (Unverified , 04/11/20) All Systems: reviewed and negative except above Objective Last 24 Hour Vital Signs Date Time Temp Pulse Resp B/P (MAP) Pulse Ox O2 Delivery O2 Flow Rate FiO2 05/17/20 12:00 97.6 100 19 105/62 (76) 96 05/17/20 09:00 Room Air 05/17/20 08:21 96 Room Air 21 05/17/20 08:00 97.6 108 19 99/67 (78) 97 05/17/20 05:32 98.1 05/17/20 04:28 98.1 106 19 121/72 (88) 98 05/17/20 00:00 97.7 114 20 100/58 (72) 93 05/16/20 21:54 98.2 05/16/20 20:30 98.2 115 20 104/64 (77) 97 05/16/20 20:08 Room Air 05/16/20 16:00 98.5 108 20 98/62 (74) 96 Intake and Output 05/16/20 05/17/20 19:00 07:00 Intake Total 800 ml 360 ml Output Total 2200 ml Balance 800 ml -1840 ml Other 800 ml 360 ml Output Urine Total 2200 ml # Bowel Movements 1 1 Objective 05/17 stable 05/16 no change 05/15 stable respiration on room air 05/12 no change respiratory-salomon 05/11 no change 05/10 no change, still on 1-2L NC 05/09 no change, still on 2L NC 05/08 no change respiratory-salomon; stable 05/07 stable saturation 05/06 no change 05/05 no change respiratory-salomon; stable no change 05/03 no change; AM labs unavailable 05/02 on and off 2 L NC; NAD 05/01 no change 04/28 on and off 1 L NC; NAD 04/27 on and off 1 L NC; NAD 04/26 still on 1 L NC; NAD 04/25 no change respiratory-salomon 04/24 no change 04/23 on and off 1 lpm NC 04/22 saturating well on and off 1 lpm NC 04/21 no change 04/20 pt saturating well on 2 lpm NC; NAD 04/19 pt saturating well on 2 lpm NC; NAD 04/18 pt saturating well on 2 lpm NC General Appearance: WD/WN, no acute distress HEENT: normocephalic, atraumatic Respiratory: lungs clear Cardiovascular: normal rate, regular rhythm Abdomen: soft, non tender Genitourinary: other - Moralse Extremities: no edema Laboratory Tests 05/17/20 09:15: White Blood Count 6.9, Red Blood Count 3.32L, Hemoglobin 9.3L, Hematocrit 30.3L, Mean Corpuscular Volume 91, Mean Corpuscular Hemoglobin 28.0, Mean Corpuscular Hemoglobin Concent 30.7L, Red Cell Distribution Width 21.3H, Platelet Count 441, Mean Platelet Volume 6.3L, Neutrophils (%) (Auto) 73.9, Lymphocytes (%) (Auto) 10.4L, Monocytes (%) (Auto) 5.8, Eosinophils (%) (Auto) 8.0H, Basophils (%) (Auto) 1.9, Sodium Level 140, Potassium Level 3.4L, Chloride Level 104, Carbon Dioxide Level 25, Anion Gap 11, Blood Urea Nitrogen 8, Creatinine 0.6, Estimat Glomerular Filtration Rate > 60, Glucose Level 97, Calcium Level 10.3H Current Medications Medications (Trade) Dose Ordered Sig/Angelika Route PRN Reason Start Time Stop Time Status Last Admin Dose Admin Acetaminophen (Tylenol) 650 mg Q6H PRN ORAL Mild Pain (Pain Scale 1-3) 05/10/20 17:30 06/09/20 17:29 05/15/20 09:13 Acetaminophen (Tylenol) 650 mg Q6H PRN ORAL Temp >100.5 05/10/20 18:00 06/09/20 17:59 Acetaminophen/ Hydrocodone Bitart ([place] 10/325) 1 tab Q6H PRN ORAL Severe Pain (Pain Scale 7-10) 05/16/20 13:33 05/23/20 13:32 05/17/20 12:11 Acetaminophen/ Hydrocodone Bitart ([place] 5/325) 1 tab Q6H PRN ORAL Moderate Pain (Pain Scale 4-6) 05/16/20 13:33 05/23/20 13:32 Allopurinol (allopurinoL) 300 mg DAILY ORAL 05/12/20 09:00 06/11/20 08:59 05/17/20 08:56 Ascorbic Acid (Vitamin C) 500 mg DAILY ORAL 04/26/20 09:00 05/26/20 08:59 05/17/20 08:56 Baclofen (Lioresal) 10 mg THREE TIMES A DAY ORAL 05/11/20 13:00 06/10/20 12:59 Chlorhexidine Gluconate (Christy-Hex 2%) 1 applic Q24H TOPIC 04/25/20 20:00 07/24/20 19:59 05/16/20 20:03 Docusate Sodium (Colace) 100 mg TWICE A DAY ORAL 04/27/20 09:00 05/20/20 08:59 05/16/20 18:56 Dronabinol (Marinol) 5 mg BID ORAL 05/01/20 09:00 07/30/20 08:59 05/17/20 08:56 Heparin Sodium (Porcine) (Heparin 5000 units/ml) 5,000 units EVERY 8 HOURS SUBQ 04/24/20 22:00 06/08/20 21:59 05/05/20 05:38 Lactulose (Cephulac) 20 gm THREE TIMES A DAY ORAL 04/21/20 13:00 05/21/20 12:59 05/08/20 08:18 Linaclotide (Linzess) 290 mcg BEFORE BREAKFAST ORAL 04/26/20 06:30 07/25/20 06:29 05/17/20 05:01 Magnesium Oxide (Mag-Ox 400mg) 400 mg THREE TIMES A DAY ORAL 04/30/20 13:00 05/30/20 12:59 05/17/20 12:11 Morphine Sulfate (Morphine Sulfate) 2 mg Q3H PRN IVP Severe Pain (Pain Scale 7-10) 05/16/20 13:33 05/23/20 13:32 Morphine Sulfate (Morphine Sulfate) 4 mg Q3H PRN IVP SEVERE BREAKTHRU PAIN 05/16/20 13:33 05/23/20 13:32 05/17/20 14:23 Multivitamins (Multivitamins) 1 tab DAILY ORAL 04/26/20 09:00 05/26/20 08:59 05/17/20 08:56 Ondansetron HCl (Zofran) 4 mg Q6H PRN IVP Nausea & Vomiting 04/19/20 13:30 05/19/20 13:29 04/29/20 18:17 Polyethylene Glycol (Miralax) 17 gm DAILY ORAL 04/20/20 09:00 05/20/20 08:59 05/15/20 08:54 Assessment/Plan Assessment/Plan 1. COVID-19 infection - COVID-19 PCR 04/21 positive: now off isolation - no indication for steroid or remdesivir given her normoxemia - s/p cefepime - CXR with diffuse non-specific inflammatory/infectious process - cont supplemental oxygen as needed; currently saturating well on 2L NC - CT A/P/C - no obvious pna or abscess, cultures negative 2. Immunocompromised state with history of non-Hodgkin lymphoma. - h/o port line infection; s/p Vanco - to return to [facility] for further Tx 3. Fever; resolved - urine culture showed zee albicans - blood culture showed no growth 4. Hx of Hypertension. 5. Hx of gout. 6. Anemia - s/p pRBC 7. DVT ppx - on SCD 8. Low TSH; improving - Dr. Fermin following - no need for levothyroxine per Dr. Fermin 9. Zee UTI - Urine Cx showed zee albicans - On fluconazole 200mg daily for 5 days (05/04 - 05/09) per ID 10. Hypokalemia - potassium replaced per neprho 11. Hypomagnesemia - Mg replaced per nephro 12. 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
[2020-05-17 16:00] VITALS: BP 102/55
[2020-05-17] MEDS: Dyna-Hex 2% Top Sol 2oz TOPIC SCH (19:19)
--- NOTE | 2020-05-17 19:31 | NUR ---
NURSE HAND-OFF: Important Events on Shift: break through pain Patient Status: stable Diet: regular Pending Orders: n/a Pending Results/Labs:n/a Pending MD notification:n/a Latest Vital Signs: Temperature 96.7 , Pulse 96 , B/P 102 /55 , Respiratory Rate 20 , O2 SAT 100 , Nasal Cannula, O2 Flow Rate 2.0 . Vital Sign Comment: stable Latest [place] Fall Score: 15 Fall Risk: Low Risk Safety Measures: Call light Within Reach, Bed Alarm Zone 1, Side Rails Side Rails x2, Bed position Low and Locked. Fall Precautions: Door Sign Patient Fall Education Report given to REA Tabares.
[2020-05-17 20:00] VITALS: BP 96/65
--- NOTE | 2020-05-17 20:00 | NUR ---
NURSE NOTES: Patient received in bed, awake and alert. C/o pain, will medicate as prescribed. No acute cardiorespiratory distress noted. Will continue with plan of care.
[2020-05-18] VITALS: BP 99/66
[2020-05-18] MEDS: Morphine Sulfate 4mg/ml Inj (IV USE ONLY) IVP PRN ×2 (00:34→17:02)
[2020-05-18 04:00] VITALS: BP 108/71
[2020-05-18] MEDS: HYDROcodone/Acetamin 10/325 tab ORAL PRN ×3 (05:40→23:24)
[2020-05-18] MEDS: Heparin 5000 units/ml inj SUBQ SCH ×3 (05:43→21:34)
[2020-05-18 06:06] LABS: BASOPHILS % (AUTO) 1.4 % (0.0-2.0); EOSINOPHILS % (AUTO) 9.5 % (0.0-3.0); HEMATOCRIT 28.1 % (37.0-47.0); HEMOGLOBIN 8.4 G/DL (12.0-16.0); LYMPHOCYTES % (AUTO) 11.7 % (20.0-45.0); MEAN CORPUSCULAR VOLUME 91 FL (80-99); MONOCYTES % (AUTO) 5.4 % (1.0-10.0); PLATELET COUNT 437 K/UL (150-450); RED BLOOD COUNT 3.08 M/UL (4.20-5.40); RED CELL DISTRIBUTION WIDTH 21.9 % (11.6-14.8); WHITE BLOOD COUNT 6.1 K/UL (4.8-10.8)
--- NOTE | 2020-05-18 06:34 | Hematology/Onc Progress Note ---
Assessment/Plan Assessment/Plan # Leukopenia COVID19++++++++++ --> hep and hiv are neg --> wbc 4-->3-->2.9->2->4.6--4.1-->3.6-->4.7-->3.6->4.1-->4.7-->3.8-->3->5 --> Neupogen 300 x1 04/21 --> isolation if anc<500 # Non-Hodgkins Lymphoma is s/p chemotherapy in the past --> to return to [facility] for further treatment --> likely for ct/pet as outpatient --> CT Here shows no e/o disease --> imaging has been reviewed thus far --> end date of 04/2020 # Anemia likely of chronic disease -- does not appear to have iron deficiency --> transfuse as needed, tibc and ferritin are cw acd --> hgb 7.8-->8.6-->8.5-->8.4->7.6-->10-->9.9->9.6-->8.7-->8-->9.2-->9.1 --> no hemolysis is noted --> s/p transfusion on admission # Covid 19++ with SIRS (febrile, tachycardic) --> per pulm and id --> CXR with diffuse non-specific inflammatory/infectious process --> s/p Cefepime (04/14 - 04/15) # Hypokalemia # Hypomagnesia # Chronic Back pain # Full Code # Dvt ppx heparin sq Appreciate consultation and dw Rn Subjective Cardiovascular: Denies: no symptoms, chest pain, edema, irregular heart rate, lightheadedness, palpitations, syncope, other Respiratory: Denies: no symptoms, cough, shortness of breath, SOB with excertion, SOB at rest, sputum, wheezing, other Gastrointestinal/Abdominal: Denies: no symptoms, abdomen distended, abdominal pain, black stools, tarry stools, blood in stool, constipated, diarrhea, di fficulty swallowing, nausea, poor appetite, poor fluid intake, rectal bleeding, vomiting, other Genitourinary: Denies: no symptoms, burning, discharge, frequency, flank pain, hematuria, incontinence, pain, urgency, other Neurologic/Psychiatric: Denies: no symptoms, anxiety, depressed, emotional problems, headache, numbness, paresthesia, pre-existing deficit, seizure, tingling, tremors, weakness, other Endocrine: Denies: no symptoms, excessive sweating, flushing, intolerance to cold, intolerance to heat, increased hunger, increased thirst, increased urine, unexplained weight gain, unexplained weight loss, other Hematologic/Lymphatic: Denies: no symptoms, anemia, easy bleeding, easy bruising, adenopathy, other Allergies: Coded Allergies: No Known Allergies (Unverified , 04/11/20) Subjective 04/17 is on room air, more comfortable, potential dc to snf 04/18 labs reviewed, no bleeding, meds noted, no night sweats 04/19 sleeping comfortably, no major events, no night sweats 04/20 meds noted, labs reviewed, wbc 2.9, hep and hiv is neg 04/21 labs reviewed, in am, the wbc was 2, to get neupogen x 1 dose now 04/23 labs noted, no bleeding, wbc 4, hgb remains low, but holding off trans 04/24 labs are pending for am, meds reviewed, no bleeding 04/25 meds reviewed, labs noted, no night sweats, reagan rn at bedside, no new events 04/26 labs reviewed, meds noted, no bleeding, wbc 3, hgb 7.6 04/27 dw rn at bedside, labs are noted, no bleeding, refusing heparin now sq 04/28 labs have been reviewed, is on room air, no bleeding, tachy 04/30 labs pending, no night sweats, meds reviewed, tachy, no night sweats, wants iv iron 05/01 dc planning, meds noted, for labs this am, no new events 05/02 meds reviewed, has been refusing care, continue heparin sq 05/03 labs reviewed, on 2lnc, no bleeding, remains on hep but refusing 05/04 meds ntoed, labs reviewed, no new changes, reagan RN 05/05 meds noted, no bleeding, labs reviewed, no f/c 05/06: no acute events reported, no resp distress 05/07: no resp distress, vss on RA dc planning continues 05/08 on [facility]co prn, nc, eaton, labs are noted 05/09 meds reviewed, labs pending, on nc, eaton 05/10 nc with eaton, no night sweats, meds have been reviewed 05/11 2lnc, bedbound no new changes, no new events, no bleeding 05/12: no acute events reported. No bleeding. 05/14 no new changes, no bleeding, meds noted, labs reviewed 05/15 labs are noted, no bleeding, meds reviewed, smear reviewed as well 05/16 awake, refusing meds, labs noted, has been refusing labs periodically 05/17 meds noted, no bleeding, no major events, hgb 9.1 05/18 labs reviewed, meds noted, hgb 8.4, no major changes Objective Objective Current Medications Medications (Trade) Dose Ordered Sig/Angelika Route PRN Reason Start Time Stop Time Status Last Admin Dose Admin Acetaminophen (Tylenol) 650 mg Q6H PRN ORAL Mild Pain (Pain Scale 1-3) 05/10/20 17:30 06/09/20 17:29 05/15/20 09:13 Acetaminophen (Tylenol) 650 mg Q6H PRN ORAL Temp >100.5 05/10/20 18:00 06/09/20 17:59 Acetaminophen/ Hydrocodone Bitart ([place] 10/325) 1 tab Q6H PRN ORAL Severe Pain (Pain Scale 7-10) 05/16/20 13:33 05/23/20 13:32 05/18/20 05:40 Acetaminophen/ Hydrocodone Bitart ([place] 5/325) 1 tab Q6H PRN ORAL Moderate Pain (Pain Scale 4-6) 05/16/20 13:33 05/23/20 13:32 Allopurinol (allopurinoL) 300 mg DAILY ORAL 05/12/20 09:00 06/11/20 08:59 05/17/20 08:56 Ascorbic Acid (Vitamin C) 500 mg DAILY ORAL 04/26/20 09:00 05/26/20 08:59 05/17/20 08:56 Baclofen (Lioresal) 10 mg THREE TIMES A DAY ORAL 05/11/20 13:00 06/10/20 12:59 Chlorhexidine Gluconate (Christy-Hex 2%) 1 applic Q24H TOPIC 04/25/20 20:00 07/24/20 19:59 05/16/20 20:03 Docusate Sodium (Colace) 100 mg TWICE A DAY ORAL 04/27/20 09:00 05/20/20 08:59 05/16/20 18:56 Dronabinol (Marinol) 5 mg BID ORAL 05/01/20 09:00 07/30/20 08:59 05/17/20 08:56 Heparin Sodium (Porcine) (Heparin 5000 units/ml) 5,000 units EVERY 8 HOURS SUBQ 04/24/20 22:00 06/08/20 21:59 05/05/20 05:38 Lactulose (Cephulac) 20 gm THREE TIMES A DAY ORAL 04/21/20 13:00 05/21/20 12:59 05/08/20 08:18 Linaclotide (Linzess) 290 mcg BEFORE BREAKFAST ORAL 04/26/20 06:30 07/25/20 06:29 05/18/20 05:39 Magnesium Oxide (Mag-Ox 400mg) 400 mg THREE TIMES A DAY ORAL 04/30/20 13:00 05/30/20 12:59 05/17/20 17:02 Morphine Sulfate (Morphine Sulfate) 2 mg Q3H PRN IVP Severe Pain (Pain Scale 7-10) 05/16/20 13:33 05/23/20 13:32 Morphine Sulfate (Morphine Sulfate) 4 mg Q3H PRN IVP SEVERE BREAKTHRU PAIN 05/16/20 13:33 05/23/20 13:32 05/18/20 00:34 Multivitamins (Multivitamins) 1 tab DAILY ORAL 04/26/20 09:00 05/26/20 08:59 05/17/20 08:56 Ondansetron HCl (Zofran) 4 mg Q6H PRN IVP Nausea & Vomiting 04/19/20 13:30 05/19/20 13:29 04/29/20 18:17 Polyethylene Glycol (Miralax) 17 gm DAILY ORAL 04/20/20 09:00 05/20/20 08:59 05/15/20 08:54 Last 24 Hour Vital Signs Date Time Temp Pulse Resp B/P (MAP) Pulse Ox O2 Delivery O2 Flow Rate FiO2 05/18/20 04:00 97.9 102 18 108/71 (83) 98 05/18/20 00:00 97.8 98 18 99/66 (77) 100 05/17/20 21:00 Room Air 05/17/20 20:00 98.0 98 18 96/65 (75) 100 05/17/20 19:55 98 Room Air 21 05/17/20 16:00 96.7 96 20 102/55 (71) 100 05/17/20 12:00 97.6 100 19 105/62 (76) 96 05/17/20 09:00 Room Air 05/17/20 08:21 96 Room Air 21 05/17/20 08:00 97.6 108 19 99/67 (78) 97 05/17/20 05:32 98.1 05/17/20 04:28 98.1 106 19 121/72 (88) 98 05/17/20 00:00 97.7 114 20 100/58 (72) 93 05/16/20 21:54 98.2 05/16/20 20:30 98.2 115 20 104/64 (77) 97 05/16/20 20:08 Room Air 05/16/20 16:00 98.5 108 20 98/62 (74) 96 05/16/20 14:16 98.1 05/16/20 12:00 98.1 107 19 102/62 (75) 97 05/16/20 10:14 97.8 05/16/20 09:00 Room Air 05/16/20 08:00 97.8 101 19 99/59 (72) 97 Intake and Output 05/17/20 05/18/20 19:00 07:00 Intake Total 600 ml Output Total 1200 ml Balance -600 ml Other 600 ml Output Urine Total 1200 ml Labs Test 05/16/20 05:25 05/17/20 09:15 05/18/20 05:30 White Blood Count 5.7 K/UL (4.8-10.8) 6.9 K/UL (4.8-10.8) 6.1 K/UL (4.8-10.8) Red Blood Count 3.17 M/UL (4.20-5.40) 3.32 M/UL (4.20-5.40) 3.08 M/UL (4.20-5.40) Hemoglobin 9.1 G/DL (12.0-16.0) 9.3 G/DL (12.0-16.0) 8.4 G/DL (12.0-16.0) Hematocrit 28.6 % (37.0-47.0) 30.3 % (37.0-47.0) 28.1 % (37.0-47.0) Mean Corpuscular Volume 90 FL (80-99) 91 FL (80-99) 91 FL (80-99) Mean Corpuscular Hemoglobin 28.7 PG (27.0-31.0) 28.0 PG (27.0-31.0) 27.2 PG (27.0-31.0) Mean Corpuscular Hemoglobin Concent 31.8 G/DL (32.0-36.0) 30.7 G/DL (32.0-36.0) 29.8 G/DL (32.0-36.0) Red Cell Distribution Width 22.6 % (11.6-14.8) 21.3 % (11.6-14.8) 21.9 % (11.6-14.8) Platelet Count 386 K/UL (150-450) 441 K/UL (150-450) 437 K/UL (150-450) Mean Platelet Volume 6.4 FL (6.5-10.1) 6.3 FL (6.5-10.1) 6.5 FL (6.5-10.1) Neutrophils (%) (Auto) 72.6 % (45.0-75.0) 73.9 % (45.0-75.0) 72.0 % (45.0-75.0) Lymphocytes (%) (Auto) 7.9 % (20.0-45.0) 10.4 % (20.0-45.0) 11.7 % (20.0-45.0) Monocytes (%) (Auto) 8.2 % (1.0-10.0) 5.8 % (1.0-10.0) 5.4 % (1.0-10.0) Eosinophils (%) (Auto) 9.0 % (0.0-3.0) 8.0 % (0.0-3.0) 9.5 % (0.0-3.0) Basophils (%) (Auto) 2.3 % (0.0-2.0) 1.9 % (0.0-2.0) 1.4 % (0.0-2.0) Sodium Level 141 MMOL/L (136-145) 140 MMOL/L (136-145) Potassium Level 3.7 MMOL/L (3.5-5.1) 3.4 MMOL/L (3.5-5.1) Chloride Level 104 MMOL/L (98-107) 104 MMOL/L (98-107) Carbon Dioxide Level 27 MMOL/L (21-32) 25 MMOL/L (21-32) Anion Gap 10 mmol/L (5-15) 11 mmol/L (5-15) Blood Urea Nitrogen 9 mg/dL (7-18) 8 mg/dL (7-18) Creatinine 0.7 MG/DL (0.55-1.30) 0.6 MG/DL (0.55-1.30) Estimat Glomerular Filtration Rate > 60 mL/min (>60) > 60 mL/min (>60) Glucose Level 91 MG/DL (74-106) 97 MG/DL (74-106) Calcium Level 10.2 MG/DL (8.5-10.1) 10.3 MG/DL (8.5-10.1) Height (Feet): 5 Height (Inches): 7.00 Weight (Pounds): 150 Objective Gen: nad Pulm: ctab, no cwr CV: rrr Abd: soft, nt Ext: no cce Martinez Hill MD May 18, 2020 06:34
[2020-05-18 06:48] LABS: ANION GAP 7 mmol/L (5-15); CALCIUM 10.2 MG/DL (8.5-10.1); CARBON DIOXIDE 28 MMOL/L (21-32); CHLORIDE 104 MMOL/L (98-107); CREATININE 0.6 MG/DL (0.55-1.30); POTASSIUM 4.2 MMOL/L (3.5-5.1); SODIUM 139 MMOL/L (136-145)
--- NOTE | 2020-05-18 07:12 | General Progress Note ---
Subjective Constitutional: Reports: weakness Allergies: Coded Allergies: No Known Allergies (Unverified , 04/11/20) All Systems: reviewed and negative except above Subjective sleepy calm Objective Last 24 Hour Vital Signs Date Time Temp Pulse Resp B/P (MAP) Pulse Ox O2 Delivery O2 Flow Rate FiO2 05/18/20 04:00 97.9 102 18 108/71 (83) 98 05/18/20 00:00 97.8 98 18 99/66 (77) 100 05/17/20 21:00 Room Air 05/17/20 20:00 98.0 98 18 96/65 (75) 100 05/17/20 19:55 98 Room Air 21 05/17/20 16:00 96.7 96 20 102/55 (71) 100 05/17/20 12:00 97.6 100 19 105/62 (76) 96 05/17/20 09:00 Room Air 05/17/20 08:21 96 Room Air 21 05/17/20 08:00 97.6 108 19 99/67 (78) 97 Intake and Output 05/17/20 05/18/20 19:00 07:00 Intake Total 600 ml 400 ml Output Total 1200 ml 800 ml Balance -600 ml -400 ml Other 600 ml 400 ml Output Urine Total 1200 ml 800 ml # Bowel Movements 1 Laboratory Tests 05/17/20 09:15: White Blood Count 6.9, Red Blood Count 3.32L, Hemoglobin 9.3L, Hematocrit 30.3L, Mean Corpuscular Volume 91, Mean Corpuscular Hemoglobin 28.0, Mean Corpuscular Hemoglobin Concent 30.7L, Red Cell Distribution Width 21.3H, Platelet Count 441, Mean Platelet Volume 6.3L, Neutrophils (%) (Auto) 73.9, Lymphocytes (%) (Auto) 10.4L, Monocytes (%) (Auto) 5.8, Eosinophils (%) (Auto) 8.0H, Basophils (%) (Auto) 1.9, Sodium Level 140, Potassium Level 3.4L, Chloride Level 104, Carbon Dioxide Level 25, Anion Gap 11, Blood Urea Nitrogen 8, Creatinine 0.6, Estimat Glomerular Filtration Rate > 60, Glucose Level 97, Calcium Level 10.3H 05/18/20 05:30: White Blood Count 6.1, Red Blood Count 3.08L, Hemoglobin 8.4L, Hematocrit 28.1L, Mean Corpuscular Volume 91, Mean Corpuscular Hemoglobin 27.2, Mean Corpuscular Hemoglobin Concent 29.8L, Red Cell Distribution Width 21.9H, Platelet Count 437, Mean Platelet Volume 6.5, Neutrophils (%) (Auto) 72.0, Lymphocytes (%) (Auto) 11.7L, Monocytes (%) (Auto) 5.4, Eosinophils (%) (Auto) 9.5H, Basophils (%) (Auto) 1.4, Sodium Level 139, Potassium Level 4.2, Chloride Level 104, Carbon Dioxide Level 28, Anion Gap 7, Blood Urea Nitrogen [Pending], Creatinine 0.6, Estimat Glomerular Filtration Rate > 60, Glucose Level 91, Calcium Level 10.2H Height (Feet): 5 Height (Inches): 7.00 Weight (Pounds): 150 General Appearance: lethargic EENT: normal ENT inspection Neck: normal alignment Cardiovascular: normal peripheral pulses, normal rate, regular rhythm Respiratory/Chest: chest wall non-tender, lungs clear, normal breath sounds Abdomen: normal bowel sounds, non tender, soft Extremities: normal inspection Edema: no edema noted Arm (L), no edema noted Arm (R), no edema noted Leg (L), no edema noted Leg (R), no edema noted Pedal (L), no edema noted Pedal (R), no edema noted Generalized Neurologic: motor weakness Skin: normal pigmentation, warm/dry Assessment/Plan Problem List: (1) Lymphoma ICD Codes: C85.90 - Non-Hodgkin lymphoma, unspecified, unspecified site SNOMED: 563028216 (2) Hip fracture ICD Codes: S72.009A - Fracture of unspecified part of neck of unspecified femur, initial encounter for closed fracture SNOMED: 193701593 (3) Anemia ICD Codes: D64.9 - Anemia, unspecified SNOMED: 305321892 Qualifiers: Qualified Codes: D64.9 - Anemia, unspecified (4) Abnormal thyroid function test ICD Codes: R94.6 - Abnormal results of thyroid function studies SNOMED: 252719229 (5) JIM (acute kidney injury) ICD Codes: N17.9 - Acute kidney failure, unspecified SNOMED: 9897968, 45055979 (6) COVID-19 ICD Codes: U07.1 - COVID-19 SNOMED: 791564694 Status: stable, progressing Assessment/Plan: o2 pulm tx abx gi heme eval cbc bmp am dc to snf if clear Spencer Lopez DO May 18, 2020 07:12
--- NOTE | 2020-05-18 07:22 | NUR ---
NURSE HAND-OFF: Important Events on Shift:[pain management. had BM] Patient Status: [stable] Diet: [Regular] Pending Orders: [] Pending Results/Labs:[] Pending MD notification:[] Latest Vital Signs: Temperature 97.9 , Pulse 102 , B/P 108 /71 , Respiratory Rate 18 , O2 SAT 98 , Nasal Cannula, O2 Flow Rate 2.0 . Vital Sign Comment: [] Latest [place] Fall Score: 35 Fall Risk: Medium Risk Safety Measures: Call light Within Reach, Bed Alarm Zone 1, Side Rails Side Rails x2, Bed position Low and Locked. Fall Precautions: Door Sign Patient Fall Education Report given to [MASON GRISSOM RN].
--- NOTE | 2020-05-18 07:30 | NUR ---
NURSE NOTES: Received report from REA Tabares. Rounding done. Pt a/o x 4. No SOB noted. Denies any pain at this time. Rt FA IV access is in placed. Morales catheter is in placed, patent. Bed in lowest position, call light within reach. Will continue to monitor.
[2020-05-18 07:34] LABS: BLOOD UREA NITROGEN 8 mg/dL (7-18)
[2020-05-18 08:00] VITALS: BP 101/59
--- NOTE | 2020-05-18 08:57 | Pulmonology Progress Note ---
Subjective ROS Limited/Unobtainable: No Interval Events: None new Constitutional: Reports: fever - resolved, fatigue HEENT: Repors: no symptoms Respiratory: Reports: no symptoms, dry cough Cardiovascular: Reports: no symptoms Gastrointestinal/Abdominal: Denies: nausea, vomiting, diarrhea Psychiatric: Denies: depression Skin: Denies: rash Musculoskeletal: Denies: pain Allergies: Coded Allergies: No Known Allergies (Unverified , 04/11/20) All Systems: reviewed and negative except above Objective Last 24 Hour Vital Signs Date Time Temp Pulse Resp B/P (MAP) Pulse Ox O2 Delivery O2 Flow Rate FiO2 05/18/20 08:00 97.7 102 18 101/59 (73) 98 05/18/20 04:00 97.9 102 18 108/71 (83) 98 05/18/20 00:00 97.8 98 18 99/66 (77) 100 05/17/20 21:00 Room Air 05/17/20 20:00 98.0 98 18 96/65 (75) 100 05/17/20 19:55 98 Room Air 21 05/17/20 16:00 96.7 96 20 102/55 (71) 100 05/17/20 12:00 97.6 100 19 105/62 (76) 96 05/17/20 09:00 Room Air Intake and Output 05/17/20 05/18/20 19:00 07:00 Intake Total 600 ml 400 ml Output Total 1200 ml 800 ml Balance -600 ml -400 ml Other 600 ml 400 ml Output Urine Total 1200 ml 800 ml # Bowel Movements 1 Objective 05/18 stable 05/17 stable 05/16 no change 05/15 stable respiration on room air 05/12 no change respiratory-salomon 05/11 no change 05/10 no change, still on 1-2L NC 05/09 no change, still on 2L NC 05/08 no change respiratory-salomon; stable 05/07 stable saturation 05/06 no change 05/05 no change respiratory-salomon; stable no change 05/03 no change; AM labs unavailable 05/02 on and off 2 L NC; NAD 05/01 no change 04/28 on and off 1 L NC; NAD 04/27 on and off 1 L NC; NAD 04/26 still on 1 L NC; NAD 04/25 no change respiratory-salomon 04/24 no change 04/23 on and off 1 lpm NC 04/22 saturating well on and off 1 lpm NC 04/21 no change 04/20 pt saturating well on 2 lpm NC; NAD 04/19 pt saturating well on 2 lpm NC; NAD 04/18 pt saturating well on 2 lpm NC General Appearance: WD/WN, no acute distress HEENT: normocephalic, atraumatic Respiratory: lungs clear Cardiovascular: normal rate, regular rhythm Abdomen: soft, non tender Genitourinary: other - Morales Extremities: no edema Laboratory Tests 05/17/20 09:15: White Blood Count 6.9, Red Blood Count 3.32L, Hemoglobin 9.3L, Hematocrit 30.3L, Mean Corpuscular Volume 91, Mean Corpuscular Hemoglobin 28.0, Mean Corpuscular Hemoglobin Concent 30.7L, Red Cell Distribution Width 21.3H, Platelet Count 441, Mean Platelet Volume 6.3L, Neutrophils (%) (Auto) 73.9, Lymphocytes (%) (Auto) 10.4L, Monocytes (%) (Auto) 5.8, Eosinophils (%) (Auto) 8.0H, Basophils (%) (Auto) 1.9, Sodium Level 140, Potassium Level 3.4L, Chloride Level 104, Carbon Dioxide Level 25, Anion Gap 11, Blood Urea Nitrogen 8, Creatinine 0.6, Estimat Glomerular Filtration Rate > 60, Glucose Level 97, Calcium Level 10.3H 05/18/20 05:30: White Blood Count 6.1, Red Blood Count 3.08L, Hemoglobin 8.4L, Hematocrit 28.1L, Mean Corpuscular Volume 91, Mean Corpuscular Hemoglobin 27.2, Mean Corpuscular Hemoglobin Concent 29.8L, Red Cell Distribution Width 21.9H, Platelet Count 437, Mean Platelet Volume 6.5, Neutrophils (%) (Auto) 72.0, Lymphocytes (%) (Auto) 11.7L, Monocytes (%) (Auto) 5.4, Eosinophils (%) (Auto) 9.5H, Basophils (%) (Auto) 1.4, Sodium Level 139, Potassium Level 4.2, Chloride Level 104, Carbon Dioxide Level 28, Anion Gap 7, Blood Urea Nitrogen 8, Creatinine 0.6, Estimat Glomerular Filtration Rate > 60, Glucose Level 91, Calcium Level 10.2H Current Medications Medications (Trade) Dose Ordered Sig/Angelika Route PRN Reason Start Time Stop Time Status Last Admin Dose Admin Acetaminophen (Tylenol) 650 mg Q6H PRN ORAL Mild Pain (Pain Scale 1-3) 05/10/20 17:30 06/09/20 17:29 05/15/20 09:13 Acetaminophen (Tylenol) 650 mg Q6H PRN ORAL Temp >100.5 05/10/20 18:00 06/09/20 17:59 Acetaminophen/ Hydrocodone Bitart ([place] 10/325) 1 tab Q6H PRN ORAL Severe Pain (Pain Scale 7-10) 05/16/20 13:33 05/23/20 13:32 05/18/20 05:40 Acetaminophen/ Hydrocodone Bitart ([place] 5/325) 1 tab Q6H PRN ORAL Moderate Pain (Pain Scale 4-6) 05/16/20 13:33 05/23/20 13:32 Allopurinol (allopurinoL) 300 mg DAILY ORAL 05/12/20 09:00 06/11/20 08:59 05/17/20 08:56 Ascorbic Acid (Vitamin C) 500 mg DAILY ORAL 04/26/20 09:00 05/26/20 08:59 05/17/20 08:56 Baclofen (Lioresal) 10 mg THREE TIMES A DAY ORAL 05/11/20 13:00 06/10/20 12:59 Chlorhexidine Gluconate (Christy-Hex 2%) 1 applic Q24H TOPIC 04/25/20 20:00 07/24/20 19:59 05/16/20 20:03 Docusate Sodium (Colace) 100 mg TWICE A DAY ORAL 04/27/20 09:00 05/20/20 08:59 05/16/20 18:56 Dronabinol (Marinol) 5 mg BID ORAL 05/01/20 09:00 07/30/20 08:59 05/17/20 08:56 Heparin Sodium (Porcine) (Heparin 5000 units/ml) 5,000 units EVERY 8 HOURS SUBQ 04/24/20 22:00 06/08/20 21:59 05/05/20 05:38 Lactulose (Cephulac) 20 gm THREE TIMES A DAY ORAL 04/21/20 13:00 05/21/20 12:59 05/08/20 08:18 Linaclotide (Linzess) 290 mcg BEFORE BREAKFAST ORAL 04/26/20 06:30 07/25/20 06:29 05/18/20 05:39 Magnesium Oxide (Mag-Ox 400mg) 400 mg THREE TIMES A DAY ORAL 04/30/20 13:00 05/30/20 12:59 05/17/20 17:02 Morphine Sulfate (Morphine Sulfate) 2 mg Q3H PRN IVP Severe Pain (Pain Scale 7-10) 05/16/20 13:33 05/23/20 13:32 Morphine Sulfate (Morphine Sulfate) 4 mg Q3H PRN IVP SEVERE BREAKTHRU PAIN 05/16/20 13:33 05/23/20 13:32 05/18/20 00:34 Multivitamins (Multivitamins) 1 tab DAILY ORAL 04/26/20 09:00 05/26/20 08:59 05/17/20 08:56 Ondansetron HCl (Zofran) 4 mg Q6H PRN IVP Nausea & Vomiting 04/19/20 13:30 05/19/20 13:29 04/29/20 18:17 Polyethylene Glycol (Miralax) 17 gm DAILY ORAL 04/20/20 09:00 05/20/20 08:59 05/15/20 08:54 Assessment/Plan Assessment/Plan 1. COVID-19 infection - COVID-19 PCR 04/21 positive: now off isolation - no indication for steroid or remdesivir given her normoxemia - s/p cefepime - CXR with diffuse non-specific inflammatory/infectious process - cont supplemental oxygen as needed; currently saturating well on 2L NC - CT A/P/C - no obvious pna or abscess, cultures negative 2. Immunocompromised state with history of non-Hodgkin lymphoma. - h/o port line infection; s/p Vanco - to return to [facility] for further Tx 3. Fever; resolved - urine culture showed zee albicans - blood culture showed no growth 4. Hx of Hypertension. 5. Hx of gout. 6. Anemia - s/p pRBC 7. DVT ppx - on SCD 8. Low TSH; improving - Dr. Fermin following - no need for levothyroxine per Dr. Fermin 9. Zee UTI - Urine Cx showed zee albicans - On fluconazole 200mg daily for 5 days (05/04 - 05/09) per ID 10. Hypokalemia - potassium replaced per neprho 11. Hypomagnesemia - Mg replaced per nephro 12. 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
[2020-05-18] MEDS: Lactulose 20gm/30ml UDC ORAL SCH ×4 (09:00→17:24)
[2020-05-18] MEDS: Docusate 100mg cap ORAL SCH ×2 (09:02→17:24)
[2020-05-18] MEDS: Miralax 17gm pkt ORAL SCH (09:02)
[2020-05-18] MEDS: Dronabinol 2.5mg Cap ORAL SCH ×2 (09:02→17:24)
[2020-05-18] MEDS: Magnesium Oxide 400mg tab ORAL SCH ×3 (09:02→17:24)
[2020-05-18] MEDS: Ascorbic Acid 500mg tab ORAL SCH (09:02)
--- NOTE | 2020-05-18 09:21 | Cardiac Electrophysiology PN ---
Assessment/Plan Assessment/Plan 1. Sinus tachycardia due to sepsis, anemia and COVID. Resolved 2. S/P COVID pneumonia. Now off isolation and on RA 3. Hypokalemia and Hypomagnesemia.Replaced 5. History of non-Hodgkin lymphoma. 6. Leukopenia and anemia. FU Dr. Valencia S/P PRBC 7. Left Hip Fx; Likely Chronic > Patient states she fell 5 months ago. Also had hard fall on coccyx in 2018. Minimal pain in left hip Per Dr. Payan. Given patient bed bound risks > benefits. LUKE RN DC to [facility] pending Subjective Subjective Off Covid isolation on RA awaiting placement No events Objective Last 24 Hour Vital Signs Date Time Temp Pulse Resp B/P (MAP) Pulse Ox O2 Delivery O2 Flow Rate FiO2 05/18/20 08:00 97.7 102 18 101/59 (73) 98 05/18/20 04:00 97.9 102 18 108/71 (83) 98 05/18/20 00:00 97.8 98 18 99/66 (77) 100 05/17/20 21:00 Room Air 05/17/20 20:00 98.0 98 18 96/65 (75) 100 05/17/20 19:55 98 Room Air 21 05/17/20 16:00 96.7 96 20 102/55 (71) 100 05/17/20 12:00 97.6 100 19 105/62 (76) 96 Intake and Output 05/17/20 05/18/20 19:00 07:00 Intake Total 600 ml 400 ml Output Total 1200 ml 800 ml Balance -600 ml -400 ml Other 600 ml 400 ml Output Urine Total 1200 ml 800 ml # Bowel Movements 1 Laboratory Tests Test 05/18/20 05:30 White Blood Count 6.1 K/UL (4.8-10.8) Red Blood Count 3.08 M/UL (4.20-5.40) L Hemoglobin 8.4 G/DL (12.0-16.0) L Hematocrit 28.1 % (37.0-47.0) L Mean Corpuscular Volume 91 FL (80-99) Mean Corpuscular Hemoglobin 27.2 PG (27.0-31.0) Mean Corpuscular Hemoglobin Concent 29.8 G/DL (32.0-36.0) L Red Cell Distribution Width 21.9 % (11.6-14.8) H Platelet Count 437 K/UL (150-450) Mean Platelet Volume 6.5 FL (6.5-10.1) Neutrophils (%) (Auto) 72.0 % (45.0-75.0) Lymphocytes (%) (Auto) 11.7 % (20.0-45.0) L Monocytes (%) (Auto) 5.4 % (1.0-10.0) Eosinophils (%) (Auto) 9.5 % (0.0-3.0) H Basophils (%) (Auto) 1.4 % (0.0-2.0) Sodium Level 139 MMOL/L (136-145) Potassium Level 4.2 MMOL/L (3.5-5.1) Chloride Level 104 MMOL/L (98-107) Carbon Dioxide Level 28 MMOL/L (21-32) Anion Gap 7 mmol/L (5-15) Blood Urea Nitrogen 8 mg/dL (7-18) Creatinine 0.6 MG/DL (0.55-1.30) Estimat Glomerular Filtration Rate > 60 mL/min (>60) Glucose Level 91 MG/DL (74-106) Calcium Level 10.2 MG/DL (8.5-10.1) H Objective HEAD AND NECK: No JVD. LUNGS: Coarse rhonchi. CARDIOVASCULAR: Regular S1 and S2 with no gallop or murmur. ABDOMEN: Soft. EXTREMITIES: No pitting edema. Ehsan Wan MD May 18, 2020 09:21
--- NOTE | 2020-05-18 09:50 | NUR ---
RD ASSESSMENT & RECOMMENDATIONS SEE CARE ACTIVITY FOR COMPLETE ASSESSMENT DAILY ESTIMATED NEEDS: Needs based on Wound/ 68kg 25-30 kcals/kg 4917-5100 total kcals 1.25-1.5 g protein/kg 85-102 g total protein 25-30 mL/kg 9865-9273 total fluid mLs NUTRITION DIAGNOSIS: Increased kcal/prot/micronutrients needs R/T wound healing as evidenced by pt admitted w/ sacral wound, stage 2 per documentation. CURRENT DIET:REGULAR PO DIET RECOMMENDATIONS: Maintain Regular diet/ texture as tolerated ADDITIONAL RECOMMENDATIONS: * Calibrated bedscale wt * Wound healing: Continue Vit C + MVI LELO BID * Maintain Ensure Enlive BID + Snacks TID * Monitor lytes, replete as needed * Accuchecks for close BG monitoring (no further hypoglycemic episodes) .
[2020-05-18] MEDS: Morphine Sulfate 2mg/ml Inj(IV/IM USE ONLY) IVP PRN (10:29)
[2020-05-18 12:00] VITALS: BP 99/74
--- NOTE | 2020-05-18 12:02 | General Progress Note ---
Subjective ROS Limited/Unobtainable: No Allergies: Coded Allergies: No Known Allergies (Unverified , 04/11/20) Objective Last 24 Hour Vital Signs Date Time Temp Pulse Resp B/P (MAP) Pulse Ox O2 Delivery O2 Flow Rate FiO2 05/18/20 12:00 97.3 109 18 99/74 (82) 98 05/18/20 09:00 Room Air 05/18/20 08:00 97.7 102 18 101/59 (73) 98 05/18/20 04:00 97.9 102 18 108/71 (83) 98 05/18/20 00:00 97.8 98 18 99/66 (77) 100 05/17/20 21:00 Room Air 05/17/20 20:00 98.0 98 18 96/65 (75) 100 05/17/20 19:55 98 Room Air 21 05/17/20 16:00 96.7 96 20 102/55 (71) 100 Intake and Output 05/17/20 05/18/20 19:00 07:00 Intake Total 600 ml 400 ml Output Total 1200 ml 800 ml Balance -600 ml -400 ml Other 600 ml 400 ml Output Urine Total 1200 ml 800 ml # Bowel Movements 1 Laboratory Tests 05/18/20 05:30: White Blood Count 6.1, Red Blood Count 3.08L, Hemoglobin 8.4L, Hematocrit 28.1L, Mean Corpuscular Volume 91, Mean Corpuscular Hemoglobin 27.2, Mean Corpuscular Hemoglobin Concent 29.8L, Red Cell Distribution Width 21.9H, Platelet Count 437, Mean Platelet Volume 6.5, Neutrophils (%) (Auto) 72.0, Lymphocytes (%) (Auto) 11.7L, Monocytes (%) (Auto) 5.4, Eosinophils (%) (Auto) 9.5H, Basophils (%) (Auto) 1.4, Sodium Level 139, Potassium Level 4.2, Chloride Level 104, Carbon Dioxide Level 28, Anion Gap 7, Blood Urea Nitrogen 8, Creatinine 0.6, Estimat Glomerular Filtration Rate > 60, Glucose Level 91, Calcium Level 10.2H Height (Feet): 5 Height (Inches): 7.00 Weight (Pounds): 150 General Appearance: alert EENT: normal ENT inspection Neck: supple Cardiovascular: normal rate Respiratory/Chest: decreased breath sounds Abdomen: normal bowel sounds, non tender, soft Extremities: non-tender Assessment/Plan Status: stable, progressing Assessment/Plan: iron def anemia mild elevated CEA lymphoma on chemo covid positive neg stool ob iv iron, completed fu H&H needs out patient fu for colonoscopy fu oncology CT reviewed colace miralax lactulose Patrick Feliciano MD May 18, 2020 12:02
--- NOTE | 2020-05-18 14:05 | NUR ---
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
[2020-05-18 16:00] VITALS: BP 96/65
--- NOTE | 2020-05-18 18:56 | NUR ---
NURSE HAND-OFF: Important Events on Shift: No new event Patient Status: stable Diet: regular Pending Orders: n/a Pending Results/Labs:n/a Pending MD notification:n/a Latest Vital Signs: Temperature 97.1 , Pulse 96 , B/P 96 /65 , Respiratory Rate 18 , O2 SAT 100 , Nasal Cannula, O2 Flow Rate 2.0 . Vital Sign Comment: stable Latest [place] Fall Score: 35 Fall Risk: Medium Risk Safety Measures: Call light Within Reach, Bed Alarm Zone 1, Side Rails Side Rails x2, Bed position Low and Locked. Fall Precautions: Door Sign Patient Fall Education Report given to REA Tabares.
[2020-05-18] MEDS: Dyna-Hex 2% Top Sol 2oz TOPIC SCH (19:07)
--- NOTE | 2020-05-18 19:55 | NUR ---
NURSE NOTES: Patient awake and alert. No acute distress. Call light in reach. Will continue plan of care.
[2020-05-18 20:00] VITALS: BP 105/70
[2020-05-19] VITALS: BP 117/74
[2020-05-19 04:00] VITALS: BP 98/66
[2020-05-19] MEDS: Morphine Sulfate 4mg/ml Inj (IV USE ONLY) IVP PRN ×3 (05:04→16:23)
--- NOTE | 2020-05-19 05:22 | NUR ---
NURSE NOTES: Bed bath given to patient. sacral dressing changed.
[2020-05-19] MEDS: Heparin 5000 units/ml inj SUBQ SCH ×3 (05:51→22:00)
--- NOTE | 2020-05-19 06:51 | Hematology/Onc Progress Note ---
Assessment/Plan Assessment/Plan # Leukopenia COVID19++++++++++ --> hep and hiv are neg --> wbc 4-->3-->2.9->2->4.6--4.1-->3.6-->4.7-->3.6->4.1-->4.7-->3.8-->3->5 --> Neupogen 300 x1 04/21 --> isolation if anc<500 # Non-Hodgkins Lymphoma is s/p chemotherapy in the past --> to return to [facility] for further treatment --> likely for ct/pet as outpatient --> CT Here shows no e/o disease --> imaging has been reviewed thus far --> end date of 04/2020 # Anemia likely of chronic disease -- does not appear to have iron deficiency --> transfuse as needed, tibc and ferritin are cw acd --> hgb 7.8-->8.6-->8.5-->8.4->7.6-->10-->9.9->9.6-->8.7-->8-->9.2-->9.1 --> no hemolysis is noted --> s/p transfusion on admission # Covid 19++ with SIRS (febrile, tachycardic) --> per pulm and id --> CXR with diffuse non-specific inflammatory/infectious process --> s/p Cefepime (04/14 - 04/15) # Hypokalemia # Hypomagnesia # Chronic Back pain # Full Code # Dvt ppx heparin sq Appreciate consultation and dw Rn Subjective Constitutional: Denies: no symptoms, chills, fever, malaise, weakness, other Cardiovascular: Denies: no symptoms, chest pain, edema, irregular heart rate, lightheadedness, palpitations, syncope, other Genitourinary: Denies: no symptoms, burning, discharge, frequency, flank pain, hematuria, incontinence, pain, urgency, other Neurologic/Psychiatric: Denies: no symptoms, anxiety, depressed, emotional problems, headache, numbness, paresthesia, pre-existing deficit, seizure, tingling, tremors, weakness, other Endocrine: Denies: no symptoms, excessive sweating, flushing, intolerance to cold, intolerance to heat, increased hunger, increased thirst, increased urine, unexplained weight gain, unexplained weight loss, other Hematologic/Lymphatic: Denies: no symptoms, anemia, easy bleeding, easy bruising, adenopathy, other Allergies: Coded Allergies: No Known Allergies (Unverified , 04/11/20) Subjective 04/17 is on room air, more comfortable, potential dc to snf 04/18 labs reviewed, no bleeding, meds noted, no night sweats 04/19 sleeping comfortably, no major events, no night sweats 04/20 meds noted, labs reviewed, wbc 2.9, hep and hiv is neg 04/21 labs reviewed, in am, the wbc was 2, to get neupogen x 1 dose now 04/23 labs noted, no bleeding, wbc 4, hgb remains low, but holding off trans 04/24 labs are pending for am, meds reviewed, no bleeding 04/25 meds reviewed, labs noted, no night sweats, reagan rn at bedside, no new e vents 04/26 labs reviewed, meds noted, no bleeding, wbc 3, hgb 7.6 04/27 reagan rn at bedside, labs are noted, no bleeding, refusing heparin now sq 04/28 labs have been reviewed, is on room air, no bleeding, tachy 04/30 labs pending, no night sweats, meds reviewed, tachy, no night sweats, wants iv iron 05/01 dc planning, meds noted, for labs this am, no new events 05/02 meds reviewed, has been refusing care, continue heparin sq 05/03 labs reviewed, on 2lnc, no bleeding, remains on hep but refusing 05/04 meds ntoed, labs reviewed, no new changes, reagan RN 05/05 meds noted, no bleeding, labs reviewed, no f/c 05/06: no acute events reported, no resp distress 05/07: no resp distress, vss on RA dc planning continues 05/08 on norco prn, nc, eaton, labs are noted 05/09 meds reviewed, labs pending, on nc, eaton 05/10 nc with eaton, no night sweats, meds have been reviewed 05/11 2lnc, bedbound no new changes, no new events, no bleeding 05/12: no acute events reported. No bleeding. 05/14 no new changes, no bleeding, meds noted, labs reviewed 05/15 labs are noted, no bleeding, meds reviewed, smear reviewed as well 05/16 awake, refusing meds, labs noted, has been refusing labs periodically 05/17 meds noted, no bleeding, no major events, hgb 9.1 05/18 labs reviewed, meds noted, hgb 8.4, no major changes 05/19 meds noted, labs reviewed, no major changes, no bleeding, sacral wound dressings Objective Objective Current Medications Medications (Trade) Dose Ordered Sig/Angelika Route PRN Reason Start Time Stop Time Status Last Admin Dose Admin Acetaminophen (Tylenol) 650 mg Q6H PRN ORAL Mild Pain (Pain Scale 1-3) 05/10/20 17:30 06/09/20 17:29 05/15/20 09:13 Acetaminophen (Tylenol) 650 mg Q6H PRN ORAL Temp >100.5 05/10/20 18:00 06/09/20 17:59 Acetaminophen/ Hydrocodone Bitart ([place] 10/325) 1 tab Q6H PRN ORAL Severe Pain (Pain Scale 7-10) 05/16/20 13:33 05/23/20 13:32 05/18/20 23:24 Acetaminophen/ Hydrocodone Bitart ([place] 5/325) 1 tab Q6H PRN ORAL Moderate Pain (Pain Scale 4-6) 05/16/20 13:33 05/23/20 13:32 Allopurinol (allopurinoL) 300 mg DAILY ORAL 05/12/20 09:00 06/11/20 08:59 05/18/20 09:02 Ascorbic Acid (Vitamin C) 500 mg DAILY ORAL 04/26/20 09:00 05/26/20 08:59 05/18/20 09:02 Baclofen (Lioresal) 10 mg THREE TIMES A DAY ORAL 05/11/20 13:00 06/10/20 12:59 Chlorhexidine Gluconate (Christy-Hex 2%) 1 applic Q24H TOPIC 04/25/20 20:00 07/24/20 19:59 05/16/20 20:03 Docusate Sodium (Colace) 100 mg TWICE A DAY ORAL 04/27/20 09:00 05/20/20 08:59 05/18/20 17:24 Dronabinol (Marinol) 5 mg BID ORAL 05/01/20 09:00 07/30/20 08:59 05/18/20 17:24 Heparin Sodium (Porcine) (Heparin 5000 units/ml) 5,000 units EVERY 8 HOURS SUBQ 04/24/20 22:00 06/08/20 21:59 05/05/20 05:38 Lactulose (Cephulac) 20 gm THREE TIMES A DAY ORAL 04/21/20 13:00 05/21/20 12:59 05/08/20 08:18 Linaclotide (Linzess) 290 mcg BEFORE BREAKFAST ORAL 04/26/20 06:30 07/25/20 06:29 05/19/20 05:03 Magnesium Oxide (Mag-Ox 400mg) 400 mg THREE TIMES A DAY ORAL 04/30/20 13:00 05/30/20 12:59 05/18/20 17:24 Morphine Sulfate (Morphine Sulfate) 2 mg Q3H PRN IVP Severe Pain (Pain Scale 7-10) 05/16/20 13:33 05/23/20 13:32 05/18/20 10:29 Morphine Sulfate (Morphine Sulfate) 4 mg Q3H PRN IVP SEVERE BREAKTHRU PAIN 05/16/20 13:33 05/23/20 13:32 05/19/20 05:04 Multivitamins (Multivitamins) 1 tab DAILY ORAL 04/26/20 09:00 05/26/20 08:59 05/18/20 09:02 Ondansetron HCl (Zofran) 4 mg Q6H PRN IVP Nausea & Vomiting 04/19/20 13:30 05/19/20 13:29 04/29/20 18:17 Polyethylene Glycol (Miralax) 17 gm DAILY ORAL 04/20/20 09:00 05/20/20 08:59 05/18/20 09:02 Last 24 Hour Vital Signs Date Time Temp Pulse Resp B/P (MAP) Pulse Ox O2 Delivery O2 Flow Rate FiO2 05/19/20 04:00 97.7 94 18 98/66 (77) 100 05/19/20 00:00 98.3 107 18 117/74 (88) 98 05/18/20 21:00 Room Air 05/18/20 20:00 98.0 104 18 105/70 (82) 99 05/18/20 16:00 97.1 96 18 96/65 (75) 100 05/18/20 12:00 97.3 109 18 99/74 (82) 98 05/18/20 09:00 Room Air 05/18/20 08:00 97.7 102 18 101/59 (73) 98 05/18/20 04:00 97.9 102 18 108/71 (83) 98 05/18/20 00:00 97.8 98 18 99/66 (77) 100 05/17/20 21:00 Room Air 05/17/20 20:00 98.0 98 18 96/65 (75) 100 05/17/20 19:55 98 Room Air 21 05/17/20 16:00 96.7 96 20 102/55 (71) 100 05/17/20 12:00 97.6 100 19 105/62 (76) 96 05/17/20 09:00 Room Air 05/17/20 08:21 96 Room Air 21 05/17/20 08:00 97.6 108 19 99/67 (78) 97 Intake and Output 05/18/20 05/19/20 19:00 07:00 Intake Total 600 ml Output Total 1300 ml Balance -700 ml Intake Oral 600 ml Output Urine Total 1300 ml Labs Test 05/17/20 09:15 05/18/20 05:30 White Blood Count 6.9 K/UL (4.8-10.8) 6.1 K/UL (4.8-10.8) Red Blood Count 3.32 M/UL (4.20-5.40) 3.08 M/UL (4.20-5.40) Hemoglobin 9.3 G/DL (12.0-16.0) 8.4 G/DL (12.0-16.0) Hematocrit 30.3 % (37.0-47.0) 28.1 % (37.0-47.0) Mean Corpuscular Volume 91 FL (80-99) 91 FL (80-99) Mean Corpuscular Hemoglobin 28.0 PG (27.0-31.0) 27.2 PG (27.0-31.0) Mean Corpuscular Hemoglobin Concent 30.7 G/DL (32.0-36.0) 29.8 G/DL (32.0-36.0) Red Cell Distribution Width 21.3 % (11.6-14.8) 21.9 % (11.6-14.8) Platelet Count 441 K/UL (150-450) 437 K/UL (150-450) Mean Platelet Volume 6.3 FL (6.5-10.1) 6.5 FL (6.5-10.1) Neutrophils (%) (Auto) 73.9 % (45.0-75.0) 72.0 % (45.0-75.0) Lymphocytes (%) (Auto) 10.4 % (20.0-45.0) 11.7 % (20.0-45.0) Monocytes (%) (Auto) 5.8 % (1.0-10.0) 5.4 % (1.0-10.0) Eosinophils (%) (Auto) 8.0 % (0.0-3.0) 9.5 % (0.0-3.0) Basophils (%) (Auto) 1.9 % (0.0-2.0) 1.4 % (0.0-2.0) Sodium Level 140 MMOL/L (136-145) 139 MMOL/L (136-145) Potassium Level 3.4 MMOL/L (3.5-5.1) 4.2 MMOL/L (3.5-5.1) Chloride Level 104 MMOL/L (98-107) 104 MMOL/L (98-107) Carbon Dioxide Level 25 MMOL/L (21-32) 28 MMOL/L (21-32) Anion Gap 11 mmol/L (5-15) 7 mmol/L (5-15) Blood Urea Nitrogen 8 mg/dL (7-18) 8 mg/dL (7-18) Creatinine 0.6 MG/DL (0.55-1.30) 0.6 MG/DL (0.55-1.30) Estimat Glomerular Filtration Rate > 60 mL/min (>60) > 60 mL/min (>60) Glucose Level 97 MG/DL (74-106) 91 MG/DL (74-106) Calcium Level 10.3 MG/DL (8.5-10.1) 10.2 MG/DL (8.5-10.1) Height (Feet): 5 Height (Inches): 7.00 Weight (Pounds): 150 Objective Gen: nad Pulm: ctab, no cwr CV: rrr Abd: soft, nt Ext: no cce Martinez Hill MD May 19, 2020 06:51
--- NOTE | 2020-05-19 07:12 | NUR ---
NURSE NOTES: Report received from Raysa RN, rounds made.Patient resting in semi hearn position in bed, AOx4, calm. Respirations even/unlabored on RA (uses O2 2LNC as needed). Generalized pain 8/10, will review pain medications with patient and medicate as ordered. Bilateral SCDs on. FC patent, y/cl urine to gravity/anchor in place. RFA saline lock,intact, site asymptomatic. Call light in reach, bed in lowest position, will continue to monitor.
--- NOTE | 2020-05-19 07:21 | NUR ---
NURSE HAND-OFF: Important Events on Shift:[bed bath, dressing change, pain management] Patient Status: [stable] Diet: [Regular] Pending Orders: [discharge planning] Pending Results/Labs:[] Pending MD notification:[] Latest Vital Signs: Temperature 97.7 , Pulse 94 , B/P 98 /66 , Respiratory Rate 18 , O2 SAT 100 , Nasal Cannula, O2 Flow Rate 2.0 . Vital Sign Comment: [] Latest [place] Fall Score: 35 Fall Risk: Medium Risk Safety Measures: Call light Within Reach, Bed Alarm Zone 1, Side Rails Side Rails x2, Bed position Low and Locked. Fall Precautions: Door Sign Patient Fall Education Report given to [Amy Neff RN].
[2020-05-19 08:00] VITALS: BP 95/57
[2020-05-19 08:27] LABS: BASOPHILS % (AUTO) 1.3 % (0.0-2.0); EOSINOPHILS % (AUTO) 7.4 % (0.0-3.0); HEMATOCRIT 30.6 % (37.0-47.0); MEAN CORPUSCULAR VOLUME 91 FL (80-99); MONOCYTES % (AUTO) 4.9 % (1.0-10.0); NEUTROPHILS % (AUTO) 79.5 % (45.0-75.0); PLATELET COUNT 463 K/UL (150-450); RED BLOOD COUNT 3.35 M/UL (4.20-5.40); RED CELL DISTRIBUTION WIDTH 21.8 % (11.6-14.8); WHITE BLOOD COUNT 6.8 K/UL (4.8-10.8)
[2020-05-19 08:36] LABS: ANION GAP 8 mmol/L (5-15); BLOOD UREA NITROGEN 7 mg/dL (7-18); CALCIUM 10.6 MG/DL (8.5-10.1); CARBON DIOXIDE 29 MMOL/L (21-32); CHLORIDE 104 MMOL/L (98-107); CREATININE 0.7 MG/DL (0.55-1.30); POTASSIUM 3.9 MMOL/L (3.5-5.1); SODIUM 141 MMOL/L (136-145)
[2020-05-19] MEDS: Lactulose 20gm/30ml UDC ORAL SCH ×3 (09:00→18:00)
[2020-05-19] MEDS: Miralax 17gm pkt ORAL SCH (09:00)
--- NOTE | 2020-05-19 09:00 | Pulmonology Progress Note ---
Subjective ROS Limited/Unobtainable: No Interval Events: None new Constitutional: Reports: fever - resolved, fatigue HEENT: Repors: no symptoms Respiratory: Reports: no symptoms, dry cough Cardiovascular: Reports: no symptoms Gastrointestinal/Abdominal: Denies: nausea, vomiting, diarrhea Psychiatric: Denies: depression Skin: Denies: rash Musculoskeletal: Denies: pain Allergies: Coded Allergies: No Known Allergies (Unverified , 04/11/20) All Systems: reviewed and negative except above Objective Last 24 Hour Vital Signs Date Time Temp Pulse Resp B/P (MAP) Pulse Ox O2 Delivery O2 Flow Rate FiO2 05/19/20 04:00 97.7 94 18 98/66 (77) 100 05/19/20 00:00 98.3 107 18 117/74 (88) 98 05/18/20 21:00 Room Air 05/18/20 20:00 98.0 104 18 105/70 (82) 99 05/18/20 16:00 97.1 96 18 96/65 (75) 100 05/18/20 12:00 97.3 109 18 99/74 (82) 98 05/18/20 09:00 Room Air Intake and Output 05/18/20 05/19/20 19:00 07:00 Intake Total 600 ml 360 ml Output Total 1300 ml 800 ml Balance -700 ml -440 ml Intake Oral 600 ml Other 360 ml Output Urine Total 1300 ml 800 ml # Bowel Movements 1 Objective 05/19 on and off 2L NC but stable on room air 05/18 stable 05/17 stable 05/16 no change 05/15 stable respiration on room air 05/12 no change respiratory-salomon 05/11 no change 05/10 no change, still on 1-2L NC 05/09 no change, still on 2L NC 05/08 no change respiratory-salomon; stable 05/07 stable saturation 05/06 no change 05/05 no change respiratory-salomon; stable no change 05/03 no change; AM labs unavailable 05/02 on and off 2 L NC; NAD 05/01 no change 04/28 on and off 1 L NC; NAD 04/27 on and off 1 L NC; NAD 04/26 still on 1 L NC; NAD 04/25 no change respiratory-salomon 04/24 no change 04/23 on and off 1 lpm NC 04/22 saturating well on and off 1 lpm NC 04/21 no change 04/20 pt saturating well on 2 lpm NC; NAD 04/19 pt saturating well on 2 lpm NC; NAD 04/18 pt saturating well on 2 lpm NC General Appearance: WD/WN, no acute distress HEENT: normocephalic, atraumatic Respiratory: lungs clear Cardiovascular: normal rate, regular rhythm Abdomen: soft, non tender Genitourinary: other - Morales Extremities: no edema Laboratory Tests 05/19/20 07:57: White Blood Count 6.8, Red Blood Count 3.35L, Hemoglobin 9.0L, Hematocrit 30.6L, Mean Corpuscular Volume 91, Mean Corpuscular Hemoglobin 27.0, Mean Corpuscular Hemoglobin Concent 29.6L, Red Cell Distribution Width 21.8H, Platelet Count 463H , Mean Platelet Volume 6.2L, Neutrophils (%) (Auto) 79.5H, Lymphocytes (%) (Auto) 7.0L, Monocytes (%) (Auto) 4.9, Eosinophils (%) (Auto) 7.4H, Basophils (%) (Auto) 1.3, Sodium Level 141, Potassium Level 3.9, Chloride Level 104, Carbon Dioxide Level 29, Anion Gap 8, Blood Urea Nitrogen 7, Creatinine 0.7, Estimat Glomerular Filtration Rate > 60, Glucose Level 128H, Calcium Level 10.6H Current Medications Medications (Trade) Dose Ordered Sig/Angelika Route PRN Reason Start Time Stop Time Status Last Admin Dose Admin Acetaminophen (Tylenol) 650 mg Q6H PRN ORAL Mild Pain (Pain Scale 1-3) 05/10/20 17:30 06/09/20 17:29 05/15/20 09:13 Acetaminophen (Tylenol) 650 mg Q6H PRN ORAL Temp >100.5 05/10/20 18:00 06/09/20 17:59 Acetaminophen/ Hydrocodone Bitart ([place] 10/325) 1 tab Q6H PRN ORAL Severe Pain (Pain Scale 7-10) 05/16/20 13:33 05/23/20 13:32 05/18/20 23:24 Acetaminophen/ Hydrocodone Bitart ([place] 5/325) 1 tab Q6H PRN ORAL Moderate Pain (Pain Scale 4-6) 05/16/20 13:33 05/23/20 13:32 Allopurinol (allopurinoL) 300 mg DAILY ORAL 05/12/20 09:00 06/11/20 08:59 05/18/20 09:02 Ascorbic Acid (Vitamin C) 500 mg DAILY ORAL 04/26/20 09:00 05/26/20 08:59 05/18/20 09:02 Baclofen (Lioresal) 10 mg THREE TIMES A DAY ORAL 05/11/20 13:00 06/10/20 12:59 Chlorhexidine Gluconate (Christy-Hex 2%) 1 applic Q24H TOPIC 04/25/20 20:00 07/24/20 19:59 05/16/20 20:03 Docusate Sodium (Colace) 100 mg TWICE A DAY ORAL 04/27/20 09:00 05/20/20 08:59 05/18/20 17:24 Dronabinol (Marinol) 5 mg BID ORAL 05/01/20 09:00 07/30/20 08:59 05/18/20 17:24 Heparin Sodium (Porcine) (Heparin 5000 units/ml) 5,000 units EVERY 8 HOURS SUBQ 04/24/20 22:00 06/08/20 21:59 05/05/20 05:38 Lactulose (Cephulac) 20 gm THREE TIMES A DAY ORAL 04/21/20 13:00 05/21/20 12:59 05/08/20 08:18 Linaclotide (Linzess) 290 mcg BEFORE BREAKFAST ORAL 04/26/20 06:30 07/25/20 06:29 05/19/20 05:03 Magnesium Oxide (Mag-Ox 400mg) 400 mg THREE TIMES A DAY ORAL 04/30/20 13:00 05/30/20 12:59 05/18/20 17:24 Morphine Sulfate (Morphine Sulfate) 2 mg Q3H PRN IVP Severe Pain (Pain Scale 7-10) 05/16/20 13:33 05/23/20 13:32 05/18/20 10:29 Morphine Sulfate (Morphine Sulfate) 4 mg Q3H PRN IVP SEVERE BREAKTHRU PAIN 05/16/20 13:33 05/23/20 13:32 05/19/20 05:04 Multivitamins (Multivitamins) 1 tab DAILY ORAL 04/26/20 09:00 05/26/20 08:59 05/18/20 09:02 Ondansetron HCl (Zofran) 4 mg Q6H PRN IVP Nausea & Vomiting 04/19/20 13:30 05/19/20 13:29 04/29/20 18:17 Polyethylene Glycol (Miralax) 17 gm DAILY ORAL 04/20/20 09:00 05/20/20 08:59 05/18/20 09:02 Assessment/Plan Assessment/Plan 1. COVID-19 infection - COVID-19 PCR 04/21 positive: now off isolation - no indication for steroid or remdesivir given her normoxemia - s/p cefepime - CXR with diffuse non-specific inflammatory/infectious process - elective use of low flow oxygen; stable on room air - CT A/P/C - no obvious pna or abscess, cultures negative 2. Immunocompromised state with history of non-Hodgkin lymphoma. - h/o port line infection; s/p Vanco - to return to [facility] for further Tx 3. Fever; resolved - urine culture showed zee albicans - blood culture showed no growth 4. Hx of Hypertension. 5. Hx of gout. 6. Anemia - s/p pRBC 7. DVT ppx - on SCD 8. Low TSH; improving - Dr. Fermin following - no need for levothyroxine per Dr. Fermin 9. Zee UTI - Urine Cx showed zee albicans - On fluconazole 200mg daily for 5 days (05/04 - 05/09) per ID 10. Hypokalemia - potassium replaced per neprho 11. Hypomagnesemia - Mg replaced per nephro 12. 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
[2020-05-19] MEDS: Docusate 100mg cap ORAL SCH ×2 (10:37→18:00)
[2020-05-19] MEDS: Magnesium Oxide 400mg tab ORAL SCH ×3 (10:38→18:14)
[2020-05-19] MEDS: Ascorbic Acid 500mg tab ORAL SCH (10:40)
[2020-05-19] MEDS: Dronabinol 2.5mg Cap ORAL SCH ×2 (10:40→18:15)
[2020-05-19] MEDS: HYDROcodone/Acetamin 10/325 tab ORAL PRN ×2 (10:50→18:15)
--- NOTE | 2020-05-19 11:06 | General Progress Note ---
Subjective ROS Limited/Unobtainable: No Allergies: Coded Allergies: No Known Allergies (Unverified , 04/11/20) Objective Last 24 Hour Vital Signs Date Time Temp Pulse Resp B/P (MAP) Pulse Ox O2 Delivery O2 Flow Rate FiO2 05/19/20 08:00 97.6 112 18 95/57 (70) 99 05/19/20 04:00 97.7 94 18 98/66 (77) 100 05/19/20 00:00 98.3 107 18 117/74 (88) 98 05/18/20 21:00 Room Air 05/18/20 20:00 98.0 104 18 105/70 (82) 99 05/18/20 16:00 97.1 96 18 96/65 (75) 100 05/18/20 12:00 97.3 109 18 99/74 (82) 98 Intake and Output 05/18/20 05/19/20 19:00 07:00 Intake Total 600 ml 360 ml Output Total 1300 ml 800 ml Balance -700 ml -440 ml Intake Oral 600 ml Other 360 ml Output Urine Total 1300 ml 800 ml # Bowel Movements 1 Laboratory Tests 05/19/20 07:57: White Blood Count 6.8, Red Blood Count 3.35L, Hemoglobin 9.0L, Hematocrit 30.6L, Mean Corpuscular Volume 91, Mean Corpuscular Hemoglobin 27.0, Mean Corpuscular Hemoglobin Concent 29.6L, Red Cell Distribution Width 21.8H, Platelet Count 463H , Mean Platelet Volume 6.2L, Neutrophils (%) (Auto) 79.5H, Lymphocytes (%) (Auto) 7.0L, Monocytes (%) (Auto) 4.9, Eosinophils (%) (Auto) 7.4H, Basophils (%) (Auto) 1.3, Sodium Level 141, Potassium Level 3.9, Chloride Level 104, Carbon Dioxide Level 29, Anion Gap 8, Blood Urea Nitrogen 7, Creatinine 0.7, Estimat Glomerular Filtration Rate > 60, Glucose Level 128H, Calcium Level 10.6H Height (Feet): 5 Height (Inches): 7.00 Weight (Pounds): 150 General Appearance: no apparent distress EENT: normal ENT inspection Neck: supple Cardiovascular: normal rate Respiratory/Chest: decreased breath sounds Abdomen: normal bowel sounds, non tender, soft Extremities: non-tender Assessment/Plan Status: stable, progressing Assessment/Plan: iron def anemia mild elevated CEA lymphoma on chemo covid positive neg stool ob iv iron, completed fu H&H needs out patient fu for colonoscopy fu oncology CT reviewed colace miralax lactulose Patrick Feliciano MD May 19, 2020 11:06
--- NOTE | 2020-05-19 11:30 | Nephrology Progress Note ---
Assessment/Plan Plan #acute kidney injury likely due to vanco toxicity #hypokalemia- #hypomagnesemia #Acute on chronic anemia #h/p non- hodgkins lymphoma #possible sepsis #+ COVID #Femoral intertrochanteric hip fracture. - replete k and mag - Pulmonary eval - prbc transfusion prn - replete lytes - hemo-onc eval - ID eval - monitor CBC - avoid nephrotoxins - ortho eval - spine eval for L3 acute on chronic bone infarct, less likely neoplasm or infection? times spent 65 min Subjective ROS Limited/Unobtainable: No Constitutional: Reports: weakness HEENT: Denies: no symptoms, eye pain, blurred vision, tearing, double vision, ear pain, ear discharge, nose pain, nose congestion, throat pain, throat swelling, mouth pain, mouth swelling, other Genitourinary: Denies: no symptoms, burning, discharge, frequency, flank pain, hematuria, incontinence, pain, urgency, other Neurologic/Psychiatric: Denies: no symptoms, anxiety, depressed, emotional problems, headache, numbness, paresthesia, pre-existing deficit, seizure, tingling, tremors, weakness, other Subjective Dispo planning hip fracture noted ortho consulted Impression: Minimal distention of the rectum with feces, could represent mild rectal fecal impaction. Equivocal slight thickening of the rectal wall and stranding of the perirectal fat, if real could indicate mild stercoral proctitis Comminuted fracture of the left femoral head, neck, and intertrochanteric region, ununited. Possibly acute, but abundant soft tissues surrounding the fracture area raises possibility that this could be chronic. Correlate with clinical findings Other findings as noted, including evidence of old T12 vertebral body compress ion fracture and prior vertebral augmentation procedure, Morales catheter, subcentimeter low-attenuation lesions which probably represent renal cysts, small sliding-type hiatal hernia Impression: Unusual signal abnormality of the posterolateral aspect of the L3 vertebral body on the right. This appears to be confined to the vertebral body marrow space. Prior CT scan in retrospect demonstrates sclerotic areas in the same location. Most likely differential consideration is an atypical hemangioma. Other pos sibilities include acute on chronic bone infarct, less likely neoplasm or infection No other unusual contrast enhancement. No findings to suggest discitis or epidural abscess. Objective Objective Last 24 Hour Vital Signs Date Time Temp Pulse Resp B/P (MAP) Pulse Ox O2 Delivery O2 Flow Rate FiO2 05/19/20 08:00 97.6 112 18 95/57 (70) 99 05/19/20 04:00 97.7 94 18 98/66 (77) 100 05/19/20 00:00 98.3 107 18 117/74 (88) 98 05/18/20 21:00 Room Air 05/18/20 20:00 98.0 104 18 105/70 (82) 99 05/18/20 16:00 97.1 96 18 96/65 (75) 100 05/18/20 12:00 97.3 109 18 99/74 (82) 98 Intake and Output 05/18/20 05/19/20 19:00 07:00 Intake Total 600 ml 360 ml Output Total 1300 ml 800 ml Balance -700 ml -440 ml Intake Oral 600 ml Other 360 ml Output Urine Total 1300 ml 800 ml # Bowel Movements 1 Laboratory Tests 05/19/20 07:57: White Blood Count 6.8, Red Blood Count 3.35L, Hemoglobin 9.0L, Hematocrit 30.6L, Mean Corpuscular Volume 91, Mean Corpuscular Hemoglobin 27.0, Mean Corpuscular Hemoglobin Concent 29.6L, Red Cell Distribution Width 21.8H, Platelet Count 463H , Mean Platelet Volume 6.2L, Neutrophils (%) (Auto) 79.5H, Lymphocytes (%) (Auto) 7.0L, Monocytes (%) (Auto) 4.9, Eosinophils (%) (Auto) 7.4H, Basophils (%) (Auto) 1.3, Sodium Level 141, Potassium Level 3.9, Chloride Level 104, Carbon Dioxide Level 29, Anion Gap 8, Blood Urea Nitrogen 7, Creatinine 0.7, Estimat Glomerular Filtration Rate > 60, Glucose Level 128H, Calcium Level 10.6H Height (Feet): 5 Height (Inches): 7.00 Weight (Pounds): 150 Objective General Appearance: no apparent distress EENT: PERRL/EOMI Neck: non-tender, normal alignment Cardiovascular: normal peripheral pulses, normal rate Respiratory/Chest: chest wall non-tender, lungs clear Abdomen: normal bowel sounds, non tender Neurologic: alert, oriented x 3 Kallie Dykes M.D. May 19, 2020 11:30
[2020-05-19 12:00] VITALS: BP 118/78
--- NOTE | 2020-05-19 13:55 | NUR ---
CASE MANAGEMENT:REVIEW SI;CHRONIC LT HIP FX. UTI. 98.3 112 18 95/57 96% ON RA H/H+ 9.0/30.6 PLT+ 463 CA+ 10.6 IS;MORPHINE IV Q3 PRN NORCO PO Q6 PRN MARINOL PO BID MAG-OX PO TID VIT C PO QD LINZESS PO QD BACLOFEN PO TID LACTULOSE PO TID HEPARIN SQ Q8 MED SURG STATUS DCP;SNF PLACEMENT
--- NOTE | 2020-05-19 15:09 | Cardiac Electrophysiology PN ---
Assessment/Plan Assessment/Plan 1. Sinus tachycardia due to sepsis, anemia and COVID. Resolved 2. S/P COVID pneumonia. Off isolation and on RA 3. Hypokalemia and Hypomagnesemia.Replaced 5. History of non-Hodgkin lymphoma. 6. Leukopenia and anemia. FU Dr. Valencia S/P PRBC 7. Left Hip Fx; Likely Chronic > Patient states she fell 5 months ago. Also had hard fall on coccyx in 2018. Minimal pain in left hip Per Dr. Payan risks > benefits. DW RN Subjective Subjective Off Covid isolation on RA awaiting SNIF placement Objective Last 24 Hour Vital Signs Date Time Temp Pulse Resp B/P (MAP) Pulse Ox O2 Delivery O2 Flow Rate FiO2 05/19/20 12:00 98.2 102 18 118/78 (91) 96 05/19/20 09:00 Room Air 05/19/20 08:00 97.6 112 18 95/57 (70) 99 05/19/20 04:00 97.7 94 18 98/66 (77) 100 05/19/20 00:00 98.3 107 18 117/74 (88) 98 05/18/20 21:00 Room Air 05/18/20 20:00 98.0 104 18 105/70 (82) 99 05/18/20 16:00 97.1 96 18 96/65 (75) 100 Intake and Output 05/18/20 05/19/20 19:00 07:00 Intake Total 600 ml 360 ml Output Total 1300 ml 800 ml Balance -700 ml -440 ml Intake Oral 600 ml Other 360 ml Output Urine Total 1300 ml 800 ml # Bowel Movements 1 Laboratory Tests Test 05/19/20 07:57 White Blood Count 6.8 K/UL (4.8-10.8) Red Blood Count 3.35 M/UL (4.20-5.40) L Hemoglobin 9.0 G/DL (12.0-16.0) L Hematocrit 30.6 % (37.0-47.0) L Mean Corpuscular Volume 91 FL (80-99) Mean Corpuscular Hemoglobin 27.0 PG (27.0-31.0) Mean Corpuscular Hemoglobin Concent 29.6 G/DL (32.0-36.0) L Red Cell Distribution Width 21.8 % (11.6-14.8) H Platelet Count 463 K/UL (150-450) H Mean Platelet Volume 6.2 FL (6.5-10.1) L Neutrophils (%) (Auto) 79.5 % (45.0-75.0) H Lymphocytes (%) (Auto) 7.0 % (20.0-45.0) L Monocytes (%) (Auto) 4.9 % (1.0-10.0) Eosinophils (%) (Auto) 7.4 % (0.0-3.0) H Basophils (%) (Auto) 1.3 % (0.0-2.0) Sodium Level 141 MMOL/L (136-145) Potassium Level 3.9 MMOL/L (3.5-5.1) Chloride Level 104 MMOL/L (98-107) Carbon Dioxide Level 29 MMOL/L (21-32) Anion Gap 8 mmol/L (5-15) Blood Urea Nitrogen 7 mg/dL (7-18) Creatinine 0.7 MG/DL (0.55-1.30) Estimat Glomerular Filtration Rate > 60 mL/min (>60) Glucose Level 128 MG/DL (74-106) H Calcium Level 10.6 MG/DL (8.5-10.1) H Objective HEAD AND NECK: No JVD. LUNGS: Coarse rhonchi. CARDIOVASCULAR: Regular S1 and S2 with no gallop or murmur. ABDOMEN: Soft. EXTREMITIES: No pitting edema. Ehsan Wan MD May 19, 2020 15:09
[2020-05-19 16:00] VITALS: BP 93/60
--- NOTE | 2020-05-19 19:20 | NUR ---
NURSE NOTES: Received report from REA Reyes. Pt is in bed watching TV. Bed locked and in lowest position, side rails up x3, call light within reach. Morales is draining well. Pt has no needs right now. Will continue to monitor.
--- NOTE | 2020-05-19 19:25 | NUR ---
NURSE HAND-OFF: Important Events on Shift:Pain Management (medicated with NORCO 10 mg x2, MORPHINE 4 mg x2), BM Patient Status: stable Diet: regular Pending Orders: none Pending Results/Labs:none Pending MD notification:none Latest Vital Signs: Temperature 99.1 , Pulse 107 , B/P 93 /60 , Respiratory Rate 18 , O2 SAT 96 , Nasal Cannula, O2 Flow Rate 2.0 . Vital Sign Comment: none Latest [place] Fall Score: 35 Fall Risk: Medium Risk Safety Measures: Call light Within Reach, Bed Alarm Zone 1, Side Rails Side Rails x2, Bed position Low and Locked. Fall Precautions: Door Sign Patient Fall Education Report given to Eddy LUCIA.
[2020-05-19] MEDS: Dyna-Hex 2% Top Sol 2oz TOPIC SCH (19:44)
[2020-05-19 20:00] VITALS: BP 99/67
--- NOTE | 2020-05-19 20:08 | General Progress Note ---
Subjective ROS Limited/Unobtainable: Yes Allergies: Coded Allergies: No Known Allergies (Unverified , 04/11/20) Objective Last 24 Hour Vital Signs Date Time Temp Pulse Resp B/P (MAP) Pulse Ox O2 Delivery O2 Flow Rate FiO2 05/19/20 16:00 99.1 107 18 93/60 (71) 96 05/19/20 12:00 98.2 102 18 118/78 (91) 96 05/19/20 09:00 Room Air 05/19/20 08:00 97.6 112 18 95/57 (70) 99 05/19/20 04:00 97.7 94 18 98/66 (77) 100 05/19/20 00:00 98.3 107 18 117/74 (88) 98 05/18/20 21:00 Room Air Intake and Output 05/18/20 05/19/20 19:00 07:00 Intake Total 600 ml 360 ml Output Total 1300 ml 800 ml Balance -700 ml -440 ml Intake Oral 600 ml Other 360 ml Output Urine Total 1300 ml 800 ml # Bowel Movements 1 Laboratory Tests 05/19/20 07:57: White Blood Count 6.8, Red Blood Count 3.35L, Hemoglobin 9.0L, Hematocrit 30.6L, Mean Corpuscular Volume 91, Mean Corpuscular Hemoglobin 27.0, Mean Corpuscular Hemoglobin Concent 29.6L, Red Cell Distribution Width 21.8H, Platelet Count 463H , Mean Platelet Volume 6.2L, Neutrophils (%) (Auto) 79.5H, Lymphocytes (%) (Auto) 7.0L, Monocytes (%) (Auto) 4.9, Eosinophils (%) (Auto) 7.4H, Basophils (%) (Auto) 1.3, Sodium Level 141, Potassium Level 3.9, Chloride Level 104, Carbon Dioxide Level 29, Anion Gap 8, Blood Urea Nitrogen 7, Creatinine 0.7, Estimat Glomerular Filtration Rate > 60, Glucose Level 128H, Calcium Level 10.6H Height (Feet): 5 Height (Inches): 7.00 Weight (Pounds): 150 Assessment/Plan Problem List: (1) Anemia ICD Codes: D64.9 - Anemia, unspecified SNOMED: 115745000 Qualifiers: Qualified Codes: D64.9 - Anemia, unspecified (2) Hip fracture ICD Codes: S72.009A - Fracture of unspecified part of neck of unspecified femur, initial encounter for closed fracture SNOMED: 684360709 (3) Lymphoma ICD Codes: C85.90 - Non-Hodgkin lymphoma, unspecified, unspecified site SNOMED: 187563553 (4) JIM (acute kidney injury) ICD Codes: N17.9 - Acute kidney failure, unspecified SNOMED: 2860867, 25905026 Status: stable, progressing Assessment/Plan: lymphoma afebrile anemia reviewed chart and labs covering for dr forest adnrews patients reviewed chart and labs Charity Early MD May 19, 2020 20:08
[2020-05-20] VITALS: BP 99/65
[2020-05-20] MEDS: Morphine Sulfate 4mg/ml Inj (IV USE ONLY) IVP PRN ×4 (00:27→23:56)
[2020-05-20 04:00] VITALS: BP 106/80
[2020-05-20] MEDS: Heparin 5000 units/ml inj SUBQ SCH ×3 (05:56→21:36)
--- NOTE | 2020-05-20 07:05 | NUR ---
NURSE HAND-OFF: Important Events on Shift: Pain management: morphine x1, norco 5 x1, BM x1 Patient Status: sleeping Diet: regular Pending Orders: Pending Results/Labs: Pending MD notification: Latest Vital Signs: Temperature 98.0 , Pulse 98 , B/P 106 /80 , Respiratory Rate 18 , O2 SAT 96 , Nasal Cannula, O2 Flow Rate 2.0 . Vital Sign Comment: VSS Latest [place] Fall Score: 35 Fall Risk: Medium Risk Safety Measures: Call light Within Reach, Bed Alarm Zone 1, Side Rails Side Rails x2, Bed position Low and Locked. Fall Precautions: Door Sign Patient Fall Education Report given to REA Ceron.
--- NOTE | 2020-05-20 07:35 | NUR ---
NURSE NOTES: Received report from REA Kam. Patient observed to be awake, alert, and oriented x4. Seen lying in bed comfortably, on room air, no s/sx of SOB/Distress, no c/o any pain or discomfort. Patient with eaton cather draining well. IV site located on RFA guage 22, line inplace intact patent. Bed placed on lowest and locked, call light placed within reach and will continue to monitor for any changes in patient's condition.
[2020-05-20 08:00] VITALS: BP 103/66
[2020-05-20] MEDS: Dronabinol 2.5mg Cap ORAL SCH ×2 (08:37→17:29)
[2020-05-20] MEDS: Ascorbic Acid 500mg tab ORAL SCH (08:37)
[2020-05-20] MEDS: Lactulose 20gm/30ml UDC ORAL SCH ×4 (08:37→17:29)
[2020-05-20] MEDS: Magnesium Oxide 400mg tab ORAL SCH ×3 (08:37→17:29)
[2020-05-20 12:00] VITALS: BP 101/68
--- NOTE | 2020-05-20 12:44 | Pulmonology Progress Note ---
Subjective ROS Limited/Unobtainable: Yes Interval Events: None new Constitutional: Reports: fever - resolved, fatigue HEENT: Repors: no symptoms Respiratory: Reports: no symptoms, dry cough Cardiovascular: Reports: no symptoms Gastrointestinal/Abdominal: Denies: nausea, vomiting, diarrhea Psychiatric: Denies: depression Skin: Denies: rash Musculoskeletal: Denies: pain Allergies: Coded Allergies: No Known Allergies (Unverified , 04/11/20) All Systems: reviewed and negative except above Objective Last 24 Hour Vital Signs Date Time Temp Pulse Resp B/P (MAP) Pulse Ox O2 Delivery O2 Flow Rate FiO2 05/20/20 12:00 98.3 93 20 101/68 (79) 95 05/20/20 09:00 Room Air 05/20/20 08:00 98.2 110 19 103/66 (78) 97 05/20/20 04:00 98.0 98 18 106/80 (89) 96 05/20/20 00:00 98.5 105 18 99/65 (76) 98 05/19/20 21:00 Room Air 05/19/20 20:00 98.7 111 18 99/67 (78) 98 05/19/20 16:00 99.1 107 18 93/60 (71) 96 Intake and Output 05/19/20 05/20/20 19:00 07:00 Intake Total 720 ml Output Total 450 ml 900 ml Balance 270 ml -900 ml Intake Oral 720 ml Output Urine Total 450 ml 900 ml # Voids 1 1 # Bowel Movements 2 1 Objective 05/20 stable on room air 05/19 on and off 2L NC but stable on room air 05/18 stable 05/17 stable 05/16 no change 05/15 stable respiration on room air 05/12 no change respiratory-salomon 05/11 no change 05/10 no change, still on 1-2L NC 05/09 no change, still on 2L NC 05/08 no change respiratory-salomon; stable 05/07 stable saturation 05/06 no change 05/05 no change respiratory-salomon; stable no change 05/03 no change; AM labs unavailable 05/02 on and off 2 L NC; NAD 05/01 no change 04/28 on and off 1 L NC; NAD 04/27 on and off 1 L NC; NAD 04/26 still on 1 L NC; NAD 04/25 no change respiratory-salomon 04/24 no change 04/23 on and off 1 lpm NC 04/22 saturating well on and off 1 lpm NC 04/21 no change 04/20 pt saturating well on 2 lpm NC; NAD 04/19 pt saturating well on 2 lpm NC; NAD 04/18 pt saturating well on 2 lpm NC General Appearance: WD/WN, no acute distress HEENT: normocephalic, atraumatic Respiratory: lungs clear Cardiovascular: normal rate, regular rhythm Abdomen: soft, non tender Genitourinary: other - Morales Extremities: no edema Current Medications Medications (Trade) Dose Ordered Sig/Angelika Route PRN Reason Start Time Stop Time Status Last Admin Dose Admin Acetaminophen (Tylenol) 650 mg Q6H PRN ORAL Mild Pain (Pain Scale 1-3) 05/10/20 17:30 06/09/20 17:29 05/15/20 09:13 Acetaminophen (Tylenol) 650 mg Q6H PRN ORAL Temp >100.5 05/10/20 18:00 06/09/20 17:59 Acetaminophen/ Hydrocodone Bitart ([place] 10/325) 1 tab Q6H PRN ORAL Severe Pain (Pain Scale 7-10) 05/16/20 13:33 05/23/20 13:32 05/19/20 18:15 Acetaminophen/ Hydrocodone Bitart ([place] 5/325) 1 tab Q6H PRN ORAL Moderate Pain (Pain Scale 4-6) 05/16/20 13:33 05/23/20 13:32 05/20/20 06:03 Allopurinol (allopurinoL) 300 mg DAILY ORAL 05/12/20 09:00 06/11/20 08:59 05/20/20 08:37 Ascorbic Acid (Vitamin C) 500 mg DAILY ORAL 04/26/20 09:00 05/26/20 08:59 05/20/20 08:37 Baclofen (Lioresal) 10 mg THREE TIMES A DAY ORAL 05/11/20 13:00 06/10/20 12:59 Chlorhexidine Gluconate (Christy-Hex 2%) 1 applic Q24H TOPIC 04/25/20 20:00 07/24/20 19:59 05/16/20 20:03 Dronabinol (Marinol) 5 mg BID ORAL 05/01/20 09:00 07/30/20 08:59 05/20/20 08:37 Heparin Sodium (Porcine) (Heparin 5000 units/ml) 5,000 units EVERY 8 HOURS SUBQ 04/24/20 22:00 06/08/20 21:59 05/05/20 05:38 Lactulose (Cephulac) 20 gm THREE TIMES A DAY ORAL 04/21/20 13:00 05/21/20 12:59 05/08/20 08:18 Linaclotide (Linzess) 290 mcg BEFORE BREAKFAST ORAL 04/26/20 06:30 07/25/20 06:29 05/20/20 05:56 Magnesium Oxide (Mag-Ox 400mg) 400 mg THREE TIMES A DAY ORAL 04/30/20 13:00 05/30/20 12:59 05/20/20 08:37 Morphine Sulfate (Morphine Sulfate) 2 mg Q3H PRN IVP Severe Pain (Pain Scale 7-10) 05/16/20 13:33 05/23/20 13:32 05/18/20 10:29 Morphine Sulfate (Morphine Sulfate) 4 mg Q3H PRN IVP SEVERE BREAKTHRU PAIN 05/16/20 13:33 05/23/20 13:32 05/20/20 10:27 Multivitamins (Multivitamins) 1 tab DAILY ORAL 04/26/20 09:00 05/26/20 08:59 05/20/20 08:37 Assessment/Plan Assessment/Plan 1. COVID-19 infection - COVID-19 PCR 04/21 positive: now off isolation - no indication for steroid or remdesivir given her normoxemia - s/p cefepime - CXR with diffuse non-specific inflammatory/infectious process - elective use of low flow oxygen; stable on room air - CT A/P/C - no obvious pna or abscess, cultures negative 2. Immunocompromised state with history of non-Hodgkin lymphoma. - h/o port line infection; s/p Vanco - to return to [facility] for further Tx 3. Fever; resolved - urine culture showed zee albicans - blood culture showed no growth 4. Hx of Hypertension. 5. Hx of gout. 6. Anemia - s/p pRBC 7. DVT ppx - on SCD 8. Low TSH; improving - Dr. Fermin following - no need for levothyroxine per Dr. Fermin 9. Zee UTI - Urine Cx showed zee albicans - On fluconazole 200mg daily for 5 days (05/04 - 05/09) per ID 10. Hypokalemia - potassium replaced per neprho 11. Hypomagnesemia - Mg replaced per nephro 12. 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
--- NOTE | 2020-05-20 13:30 | Nephrology Progress Note ---
Assessment/Plan Plan #acute kidney injury likely due to vanco toxicity #hypokalemia- #hypomagnesemia #Acute on chronic anemia #h/p non- hodgkins lymphoma #possible sepsis #+ COVID #Femoral intertrochanteric hip fracture. - replete k and mag - Pulmonary eval - prbc transfusion prn - replete lytes - hemo-onc eval - ID eval - monitor CBC - avoid nephrotoxins - ortho eval - spine eval for L3 acute on chronic bone infarct, less likely neoplasm or infection? times spent 65 min Subjective ROS Limited/Unobtainable: No Constitutional: Reports: weakness HEENT: Denies: no symptoms, eye pain, blurred vision, tearing, double vision, ear pain, ear discharge, nose pain, nose congestion, throat pain, throat swelling, mouth pain, mouth swelling, other Genitourinary: Denies: no symptoms, burning, discharge, frequency, flank pain, hematuria, incontinence, pain, urgency, other Neurologic/Psychiatric: Denies: no symptoms, anxiety, depressed, emotional problems, headache, numbness, paresthesia, pre-existing deficit, seizure, tingling, tremors, weakness, other Subjective Dispo planning hip fracture noted ortho consulted Impression: Minimal distention of the rectum with feces, could represent mild rectal fecal impaction. Equivocal slight thickening of the rectal wall and stranding of the perirectal fat, if real could indicate mild stercoral proctitis Comminuted fracture of the left femoral head, neck, and intertrochanteric region, ununited. Possibly acute, but abundant soft tissues surrounding the fracture area raises possibility that this could be chronic. Correlate with clinical findings Other findings as noted, including evidence of old T12 vertebral body compress ion fracture and prior vertebral augmentation procedure, Morales catheter, subcentimeter low-attenuation lesions which probably represent renal cysts, small sliding-type hiatal hernia Impression: Unusual signal abnormality of the posterolateral aspect of the L3 vertebral body on the right. This appears to be confined to the vertebral body marrow space. Prior CT scan in retrospect demonstrates sclerotic areas in the same location. Most likely differential consideration is an atypical hemangioma. Other pos sibilities include acute on chronic bone infarct, less likely neoplasm or infection No other unusual contrast enhancement. No findings to suggest discitis or epidural abscess. Objective Objective Last 24 Hour Vital Signs Date Time Temp Pulse Resp B/P (MAP) Pulse Ox O2 Delivery O2 Flow Rate FiO2 05/20/20 12:00 98.3 93 20 101/68 (79) 95 05/20/20 09:00 Room Air 05/20/20 08:00 98.2 110 19 103/66 (78) 97 05/20/20 04:00 98.0 98 18 106/80 (89) 96 05/20/20 00:00 98.5 105 18 99/65 (76) 98 05/19/20 21:00 Room Air 05/19/20 20:00 98.7 111 18 99/67 (78) 98 05/19/20 16:00 99.1 107 18 93/60 (71) 96 Intake and Output 05/19/20 05/20/20 19:00 07:00 Intake Total 720 ml Output Total 450 ml 900 ml Balance 270 ml -900 ml Intake Oral 720 ml Output Urine Total 450 ml 900 ml # Voids 1 1 # Bowel Movements 2 1 Height (Feet): 5 Height (Inches): 7.00 Weight (Pounds): 150 Objective General Appearance: no apparent distress EENT: PERRL/EOMI Neck: non-tender, normal alignment Cardiovascular: normal peripheral pulses, normal rate Respiratory/Chest: chest wall non-tender, lungs clear Abdomen: normal bowel sounds, non tender Neurologic: alert, oriented x 3 Kallie Dykes M.D. May 20, 2020 13:30
[2020-05-20] MEDS: HYDROcodone/Acetamin 10/325 tab ORAL PRN ×2 (13:46→20:23)
[2020-05-20 16:00] VITALS: BP 115/63
--- NOTE | 2020-05-20 16:40 | Cardiac Electrophysiology PN ---
Assessment/Plan Assessment/Plan 1. Sinus tachycardia due to sepsis, anemia and COVID. Resolved 2. S/P COVID pneumonia. Off isolation and on RA 3. Hypokalemia and Hypomagnesemia.Replaced 5. History of non-Hodgkin lymphoma. 6. Leukopenia and anemia. FU Dr. Valencia S/P PRBC 7. Left Hip Fx; Likely Chronic > Patient states she fell 5 months ago. Also had hard fall on coccyx in 2018. Minimal pain in left hip Per Dr. Payan risks > benefits. DW RN Subjective Subjective Off Covid isolation on RA awaiting SNIF placement . Had sinus tach as she was excited earlier Objective Last 24 Hour Vital Signs Date Time Temp Pulse Resp B/P (MAP) Pulse Ox O2 Delivery O2 Flow Rate FiO2 05/20/20 16:00 98.0 94 19 115/63 (80) 98 05/20/20 12:00 98.3 93 20 101/68 (79) 95 05/20/20 09:00 Room Air 05/20/20 08:00 98.2 110 19 103/66 (78) 97 05/20/20 04:00 98.0 98 18 106/80 (89) 96 05/20/20 00:00 98.5 105 18 99/65 (76) 98 05/19/20 21:00 Room Air 05/19/20 20:00 98.7 111 18 99/67 (78) 98 Intake and Output 05/19/20 05/20/20 19:00 07:00 Intake Total 720 ml Output Total 450 ml 900 ml Balance 270 ml -900 ml Intake Oral 720 ml Output Urine Total 450 ml 900 ml # Voids 1 1 # Bowel Movements 2 1 Objective HEAD AND NECK: No JVD. LUNGS: Coarse rhonchi. CARDIOVASCULAR: Regular S1 and S2 with no gallop or murmur. ABDOMEN: Soft. EXTREMITIES: No pitting edema. Ehsan Wan MD May 20, 2020 16:40
--- NOTE | 2020-05-20 19:13 | NUR ---
NURSE HAND-OFF: Important Events on Shift:N/A Patient Status: STABLE Diet: REG Pending Orders: N/A Pending Results/Labs:N/A Pending MD notification:N/A Latest Vital Signs: Temperature 98.0 , Pulse 94 , B/P 115 /63 , Respiratory Rate 19 , O2 SAT 98 , Nasal Cannula, O2 Flow Rate 2.0 . Vital Sign Comment: Stable Latest [place] Fall Score: 35 Fall Risk: Medium Risk Safety Measures: Call light Within Reach, Bed Alarm Zone 1, Side Rails Side Rails x2, Bed position Low and Locked. Fall Precautions: Door Sign Patient Fall Education Report given to REA Sun.
--- NOTE | 2020-05-20 19:45 | NUR ---
NURSE NOTES: Received report from Mary RN. Patient is awake, alert and oriented x4. On room air, breathing is even and unlabored. Complains of back pain 8/10. Will administer pain med. Morales intact and draining well. IV right FA intact and patent with no bleeding noted. Sacral stage II and left buttock to thigh noted. Bed low and locked. Call light within reach.
[2020-05-20 20:00] VITALS: BP 102/65
[2020-05-20] MEDS: Dyna-Hex 2% Top Sol 2oz TOPIC SCH (20:00)
--- NOTE | 2020-05-20 21:52 | General Progress Note ---
Subjective ROS Limited/Unobtainable: Yes Allergies: Coded Allergies: No Known Allergies (Unverified , 04/11/20) Objective Last 24 Hour Vital Signs Date Time Temp Pulse Resp B/P (MAP) Pulse Ox O2 Delivery O2 Flow Rate FiO2 05/20/20 20:00 98.3 103 15 102/65 (77) 96 05/20/20 16:00 98.0 94 19 115/63 (80) 98 05/20/20 12:00 98.3 93 20 101/68 (79) 95 05/20/20 09:00 Room Air 05/20/20 08:00 98.2 110 19 103/66 (78) 97 05/20/20 04:00 98.0 98 18 106/80 (89) 96 05/20/20 00:00 98.5 105 18 99/65 (76) 98 Intake and Output 05/19/20 05/20/20 19:00 07:00 Intake Total 720 ml Output Total 450 ml 900 ml Balance 270 ml -900 ml Intake Oral 720 ml Output Urine Total 450 ml 900 ml # Voids 1 1 # Bowel Movements 2 1 Height (Feet): 5 Height (Inches): 7.00 Weight (Pounds): 150 Assessment/Plan Problem List: (1) Anemia ICD Codes: D64.9 - Anemia, unspecified SNOMED: 253548812 Qualifiers: Qualified Codes: D64.9 - Anemia, unspecified (2) Hip fracture ICD Codes: S72.009A - Fracture of unspecified part of neck of unspecified femur, initial encounter for closed fracture SNOMED: 994887752 (3) Lymphoma ICD Codes: C85.90 - Non-Hodgkin lymphoma, unspecified, unspecified site SNOMED: 043529581 (4) JIM (acute kidney injury) ICD Codes: N17.9 - Acute kidney failure, unspecified SNOMED: 6382220, 78781442 Status: stable, progressing Assessment/Plan: lymphoma afebrile anemia reviewed chart and labs s/p hip Charity Curry MD May 20, 2020 21:52
[2020-05-21] VITALS: BP 104/68
[2020-05-21 04:00] VITALS: BP 100/60
[2020-05-21] MEDS: Heparin 5000 units/ml inj SUBQ SCH ×3 (06:00→21:10)
[2020-05-21] MEDS: HYDROcodone/Acetamin 10/325 tab ORAL PRN (06:13)
--- NOTE | 2020-05-21 07:23 | NUR ---
NURSE HAND-OFF: Important Events on Shift: Pain management Patient Status: Stable Diet: Regular Pending Orders: [] Pending Results/Labs:[] Pending MD notification:[] Latest Vital Signs: Temperature 97.9 , Pulse 95 , B/P 100 /60 , Respiratory Rate 16 , O2 SAT 96 , Nasal Cannula, O2 Flow Rate 2.0 . Vital Sign Comment: VS stable Latest [place] Fall Score: 35 Fall Risk: Medium Risk Safety Measures: Call light Within Reach, Bed Alarm Zone 1, Side Rails Side Rails x2, Bed position Low and Locked. Fall Precautions: Door Sign Patient Fall Education Report given to Rhoda LUCIA.
[2020-05-21 08:00] VITALS: BP 95/61
--- NOTE | 2020-05-21 08:00 | NUR ---
NURSE NOTES: Received patient lying in bed, awake, alert, and oriented x4. Patient is in room air, no S/S of SOB/Distress, no c/o pain or discomfort. Patient with Morales catheter FR16 drains well to gravity. PIV on RFA G 22, saline locked. Bed placed on lowest position possible, locked, call light placed within reach, side rails up x3. Will continue to monitor patient and follow up with the plan of care.
[2020-05-21] MEDS: Magnesium Oxide 400mg tab ORAL SCH ×3 (08:33→17:18)
[2020-05-21] MEDS: Dronabinol 2.5mg Cap ORAL SCH ×2 (08:33→17:14)
[2020-05-21] MEDS: Lactulose 20gm/30ml UDC ORAL SCH (08:33)
[2020-05-21] MEDS: Ascorbic Acid 500mg tab ORAL SCH (08:33)
--- NOTE | 2020-05-21 09:39 | Pulmonology Progress Note ---
Subjective ROS Limited/Unobtainable: Yes Interval Events: None new Constitutional: Reports: fever - resolved, fatigue HEENT: Repors: no symptoms Respiratory: Reports: no symptoms, dry cough Cardiovascular: Reports: no symptoms Gastrointestinal/Abdominal: Denies: nausea, vomiting, diarrhea Psychiatric: Denies: depression Skin: Denies: rash Musculoskeletal: Denies: pain Allergies: Coded Allergies: No Known Allergies (Unverified , 04/11/20) All Systems: reviewed and negative except above Objective Last 24 Hour Vital Signs Date Time Temp Pulse Resp B/P (MAP) Pulse Ox O2 Delivery O2 Flow Rate FiO2 05/21/20 09:00 Room Air 05/21/20 08:00 97.8 106 19 95/61 (72) 95 05/21/20 04:00 97.9 95 16 100/60 (73) 96 05/21/20 00:00 97.7 99 17 104/68 (80) 96 05/20/20 21:00 Room Air 05/20/20 20:00 98.3 103 15 102/65 (77) 96 05/20/20 16:00 98.0 94 19 115/63 (80) 98 05/20/20 12:00 98.3 93 20 101/68 (79) 95 Intake and Output 05/20/20 05/21/20 19:00 07:00 Intake Total 500 ml 240 ml Output Total 1100 ml 500 ml Balance -600 ml -260 ml Intake Oral 500 ml 240 ml Output Urine Total 1100 ml 500 ml # Voids 1 1 # Bowel Movements 1 Objective 05/20 stable on room air 05/19 on and off 2L NC but stable on room air 05/18 stable 05/17 stable 05/16 no change 05/15 stable respiration on room air 05/12 no change respiratory-salomon 05/11 no change 05/10 no change, still on 1-2L NC 05/09 no change, still on 2L NC 05/08 no change respiratory-salomon; stable 05/07 stable saturation 05/06 no change 05/05 no change respiratory-salomon; stable no change 05/03 no change; AM labs unavailable 05/02 on and off 2 L NC; NAD 05/01 no change 04/28 on and off 1 L NC; NAD 04/27 on and off 1 L NC; NAD 04/26 still on 1 L NC; NAD 04/25 no change respiratory-salomon 04/24 no change 04/23 on and off 1 lpm NC 04/22 saturating well on and off 1 lpm NC 04/21 no change 04/20 pt saturating well on 2 lpm NC; NAD 04/19 pt saturating well on 2 lpm NC; NAD 04/18 pt saturating well on 2 lpm NC General Appearance: WD/WN, no acute distress HEENT: normocephalic, atraumatic Respiratory: lungs clear Cardiovascular: normal rate, regular rhythm, tachycardia - intermittent Abdomen: soft, non tender Genitourinary: other - Morales Extremities: no edema Current Medications Medications (Trade) Dose Ordered Sig/Angelika Route PRN Reason Start Time Stop Time Status Last Admin Dose Admin Acetaminophen (Tylenol) 650 mg Q6H PRN ORAL Mild Pain (Pain Scale 1-3) 05/10/20 17:30 06/09/20 17:29 05/15/20 09:13 Acetaminophen (Tylenol) 650 mg Q6H PRN ORAL Temp >100.5 05/10/20 18:00 06/09/20 17:59 Acetaminophen/ Hydrocodone Bitart ([place] 10/325) 1 tab Q6H PRN ORAL Severe Pain (Pain Scale 7-10) 05/16/20 13:33 05/23/20 13:32 05/21/20 06:13 Acetaminophen/ Hydrocodone Bitart ([place] 5/325) 1 tab Q6H PRN ORAL Moderate Pain (Pain Scale 4-6) 05/16/20 13:33 05/23/20 13:32 05/20/20 06:03 Allopurinol (allopurinoL) 300 mg DAILY ORAL 05/12/20 09:00 06/11/20 08:59 05/21/20 08:33 Ascorbic Acid (Vitamin C) 500 mg DAILY ORAL 04/26/20 09:00 05/26/20 08:59 05/21/20 08:33 Baclofen (Lioresal) 10 mg THREE TIMES A DAY ORAL 05/11/20 13:00 06/10/20 12:59 Chlorhexidine Gluconate (Christy-Hex 2%) 1 applic Q24H TOPIC 04/25/20 20:00 07/24/20 19:59 05/16/20 20:03 Dronabinol (Marinol) 5 mg BID ORAL 05/01/20 09:00 07/30/20 08:59 05/21/20 08:33 Heparin Sodium (Porcine) (Heparin 5000 units/ml) 5,000 units EVERY 8 HOURS SUBQ 04/24/20 22:00 06/08/20 21:59 05/05/20 05:38 Lactulose (Cephulac) 20 gm THREE TIMES A DAY ORAL 04/21/20 13:00 05/21/20 12:59 05/08/20 08:18 Linaclotide (Linzess) 290 mcg BEFORE BREAKFAST ORAL 04/26/20 06:30 07/25/20 06:29 05/21/20 06:05 Magnesium Oxide (Mag-Ox 400mg) 400 mg THREE TIMES A DAY ORAL 04/30/20 13:00 05/30/20 12:59 05/21/20 08:33 Morphine Sulfate (Morphine Sulfate) 2 mg Q3H PRN IVP Severe Pain (Pain Scale 7-10) 05/16/20 13:33 05/23/20 13:32 05/18/20 10:29 Morphine Sulfate (Morphine Sulfate) 4 mg Q3H PRN IVP SEVERE BREAKTHRU PAIN 05/16/20 13:33 05/23/20 13:32 05/20/20 23:56 Multivitamins (Multivitamins) 1 tab DAILY ORAL 04/26/20 09:00 05/26/20 08:59 05/21/20 08:33 Assessment/Plan Assessment/Plan 1. COVID-19 infection - COVID-19 PCR 04/21 positive: now off isolation - no indication for steroid or remdesivir given her normoxemia - s/p cefepime - CXR with diffuse non-specific inflammatory/infectious process - elective use of low flow oxygen; stable on room air - CT A/P/C - no obvious pna or abscess, cultures negative 2. Immunocompromised state with history of non-Hodgkin lymphoma. - h/o port line infection; s/p Vanco - to return to [facility] for further Tx 3. Fever; resolved - urine culture showed zee albicans - blood culture showed no growth 4. Hx of Hypertension. 5. Hx of gout. 6. Anemia - s/p pRBC 7. DVT ppx - on SCD 8. Low TSH; improving - Dr. Fermin following - no need for levothyroxine per Dr. Fermin 9. Zee UTI - Urine Cx showed zee albicans - On fluconazole 200mg daily for 5 days (05/04 - 05/09) per ID 10. Hypokalemia - potassium replaced per neprho 11. Hypomagnesemia - Mg replaced per nephro 12. 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
--- NOTE | 2020-05-21 10:13 | Hematology/Onc Progress Note ---
Assessment/Plan Assessment/Plan # Leukopenia COVID19++++++++++ --> hep and hiv are neg --> wbc 4-->3-->2.9->2->4.6--4.1-->3.6-->4.7-->3.6->4.1-->4.7-->3.8-->3->5 --> Neupogen 300 x1 04/21 --> isolation if anc<500 # Non-Hodgkins Lymphoma is s/p chemotherapy in the past --> to return to [facility] for further treatment --> likely for ct/pet as outpatient --> CT Here shows no e/o disease --> imaging has been reviewed thus far --> end date of 04/2020 # Anemia likely of chronic disease -- does not appear to have iron deficiency --> transfuse as needed, tibc and ferritin are cw acd --> hgb 7.8-->8.6-->8.5-->8.4->7.6-->10-->9.9->9.6-->8.7-->8-->9.2-->9.1 --> no hemolysis is noted --> s/p transfusion on admission # Covid 19++ with SIRS (febrile, tachycardic) --> per pulm and id --> CXR with diffuse non-specific inflammatory/infectious process --> s/p Cefepime (04/14 - 04/15) # Hypokalemia # Hypomagnesia # Chronic Back pain # Full Code # Dvt ppx heparin sq Appreciate consultation and dw Rn Subjective Constitutional: Denies: no symptoms, chills, fever, malaise, weakness, other HEENT: Denies: no symptoms, eye pain, blurred vision, tearing, double vision, ear pain, ear discharge, nose pain, nose congestion, throat pain, throat swelling, mouth pain, mouth swelling, other Cardiovascular: Denies: no symptoms, chest pain, edema, irregular heart rate, lightheadedness, palpitations, syncope, other Respiratory: Denies: no symptoms, cough, shortness of breath, SOB with excertion, SOB at rest, sputum, wheezing, other Gastrointestinal/Abdominal: Denies: no symptoms, abdomen distended, abdominal pain, black stools, tarry stools, blood in stool, constipated, diarrhea, difficulty swallowing, nausea, poor appetite, poor fluid intake, rectal bleeding, vomiting, other Genitourinary: Denies: no symptoms, burning, discharge, frequency, flank pain, hematuria, incontinence, pain, urgency, other Neurologic/Psychiatric: Denies: no symptoms, anxiety, depressed, emotional problems, headache, numbness, paresthesia, pre-existing deficit, seizure, tingling, tremors, weakness, other Endocrine: Denies: no symptoms, excessive sweating, flushing, intolerance to cold, intolerance to heat, increased hunger, increased thirst, increased urine, unexplained weight gain, unexplained weight loss, other Allergies: Coded Allergies: No Known Allergies (Unverified , 04/11/20) Subjective 04/17 is on room air, more comfortable, potential dc to snf 04/18 labs reviewed, no bleeding, meds noted, no night sweats 04/19 sleeping comfortably, no major events, no night sweats 04/20 meds noted, labs reviewed, wbc 2.9, hep and hiv is neg 04/21 labs reviewed, in am, the wbc was 2, to get neupogen x 1 dose now 04/23 labs noted, no bleeding, wbc 4, hgb remains low, but holding off trans 04/24 labs are pending for am, meds reviewed, no bleeding 04/25 meds reviewed, labs noted, no night sweats, reagan rn at bedside, no new events 04/26 labs reviewed, meds noted, no bleeding, wbc 3, hgb 7.6 04/27 reagan rn at bedside, labs are noted, no bleeding, refusing heparin now sq 04/28 labs have been reviewed, is on room air, no bleeding, tachy 04/30 labs pending, no night sweats, meds reviewed, tachy, no night sweats, wants iv iron 05/01 dc planning, meds noted, for labs this am, no new events 05/02 meds reviewed, has been refusing care, continue heparin sq 05/03 labs reviewed, on 2lnc, no bleeding, remains on hep but refusing 05/04 meds ntoed, labs reviewed, no new changes, reagan RN 05/05 meds noted, no bleeding, labs reviewed, no f/c 05/06: no acute events reported, no resp distress 05/07: no resp distress, vss on RA dc planning continues 05/08 on norco prn, nc, eaton, labs are noted 05/09 meds reviewed, labs pending, on nc, eaton 05/10 nc with eaton, no night sweats, meds have been reviewed 05/11 2lnc, bedbound no new changes, no new events, no bleeding 05/12: no acute events reported. No bleeding. 05/14 no new changes, no bleeding, meds noted, labs reviewed 05/15 labs are noted, no bleeding, meds reviewed, smear reviewed as well 05/16 awake, refusing meds, labs noted, has been refusing labs periodically 05/17 meds noted, no bleeding, no major events, hgb 9.1 05/18 labs reviewed, meds noted, hgb 8.4, no major changes 05/19 meds noted, labs reviewed, no major changes, no bleeding, sacral wound dressings 05/21 meds noted, eaton is in place, no night sweats, reagan ponce Objective Objective Current Medications Medications (Trade) Dose Ordered Sig/Angelika Route PRN Reason Start Time Stop Time Status Last Admin Dose Admin Acetaminophen (Tylenol) 650 mg Q6H PRN ORAL Mild Pain (Pain Scale 1-3) 05/10/20 17:30 06/09/20 17:29 05/15/20 09:13 Acetaminophen (Tylenol) 650 mg Q6H PRN ORAL Temp >100.5 05/10/20 18:00 06/09/20 17:59 Acetaminophen/ Hydrocodone Bitart (Winn 10/325) 1 tab Q6H PRN ORAL Severe Pain (Pain Scale 7-10) 05/16/20 13:33 05/23/20 13:32 05/21/20 06:13 Acetaminophen/ Hydrocodone Bitart (Winn 5/325) 1 tab Q6H PRN ORAL Moderate Pain (Pain Scale 4-6) 05/16/20 13:33 05/23/20 13:32 05/20/20 06:03 Allopurinol (allopurinoL) 300 mg DAILY ORAL 05/12/20 09:00 06/11/20 08:59 05/21/20 08:33 Ascorbic Acid (Vitamin C) 500 mg DAILY ORAL 04/26/20 09:00 05/26/20 08:59 05/21/20 08:33 Baclofen (Lioresal) 10 mg THREE TIMES A DAY ORAL 05/11/20 13:00 06/10/20 12:59 Chlorhexidine Gluconate (Christy-Hex 2%) 1 applic Q24H TOPIC 04/25/20 20:00 07/24/20 19:59 05/16/20 20:03 Dronabinol (Marinol) 5 mg BID ORAL 05/01/20 09:00 07/30/20 08:59 05/21/20 08:33 Heparin Sodium (Porcine) (Heparin 5000 units/ml) 5,000 units EVERY 8 HOURS SUBQ 04/24/20 22:00 06/08/20 21:59 05/05/20 05:38 Lactulose (Cephulac) 20 gm THREE TIMES A DAY ORAL 04/21/20 13:00 05/21/20 12:59 05/08/20 08:18 Linaclotide (Linzess) 290 mcg BEFORE BREAKFAST ORAL 04/26/20 06:30 07/25/20 06:29 05/21/20 06:05 Magnesium Oxide (Mag-Ox 400mg) 400 mg THREE TIMES A DAY ORAL 04/30/20 13:00 05/30/20 12:59 05/21/20 08:33 Morphine Sulfate (Morphine Sulfate) 2 mg Q3H PRN IVP Severe Pain (Pain Scale 7-10) 05/16/20 13:33 05/23/20 13:32 05/18/20 10:29 Morphine Sulfate (Morphine Sulfate) 4 mg Q3H PRN IVP SEVERE BREAKTHRU PAIN 05/16/20 13:33 05/23/20 13:32 05/20/20 23:56 Multivitamins (Multivitamins) 1 tab DAILY ORAL 04/26/20 09:00 05/26/20 08:59 05/21/20 08:33 Last 24 Hour Vital Signs Date Time Temp Pulse Resp B/P (MAP) Pulse Ox O2 Delivery O2 Flow Rate FiO2 05/21/20 09:00 Room Air 05/21/20 08:00 97.8 106 19 95/61 (72) 95 05/21/20 04:00 97.9 95 16 100/60 (73) 96 05/21/20 00:00 97.7 99 17 104/68 (80) 96 05/20/20 21:00 Room Air 05/20/20 20:00 98.3 103 15 102/65 (77) 96 05/20/20 16:00 98.0 94 19 115/63 (80) 98 05/20/20 12:00 98.3 93 20 101/68 (79) 95 05/20/20 09:00 Room Air 05/20/20 08:00 98.2 110 19 103/66 (78) 97 05/20/20 04:00 98.0 98 18 106/80 (89) 96 05/20/20 00:00 98.5 105 18 99/65 (76) 98 05/19/20 21:00 Room Air 05/19/20 20:00 98.7 111 18 99/67 (78) 98 05/19/20 16:00 99.1 107 18 93/60 (71) 96 05/19/20 12:00 98.2 102 18 118/78 (91) 96 Intake and Output 05/20/20 05/21/20 19:00 07:00 Intake Total 500 ml 240 ml Output Total 1100 ml 500 ml Balance -600 ml -260 ml Intake Oral 500 ml 240 ml Output Urine Total 1100 ml 500 ml # Voids 1 1 # Bowel Movements 1 Labs Test 05/19/20 07:57 White Blood Count 6.8 K/UL (4.8-10.8) Red Blood Count 3.35 M/UL (4.20-5.40) Hemoglobin 9.0 G/DL (12.0-16.0) Hematocrit 30.6 % (37.0-47.0) Mean Corpuscular Volume 91 FL (80-99) Mean Corpuscular Hemoglobin 27.0 PG (27.0-31.0) Mean Corpuscular Hemoglobin Concent 29.6 G/DL (32.0-36.0) Red Cell Distribution Width 21.8 % (11.6-14.8) Platelet Count 463 K/UL (150-450) Mean Platelet Volume 6.2 FL (6.5-10.1) Neutrophils (%) (Auto) 79.5 % (45.0-75.0) Lymphocytes (%) (Auto) 7.0 % (20.0-45.0) Monocytes (%) (Auto) 4.9 % (1.0-10.0) Eosinophils (%) (Auto) 7.4 % (0.0-3.0) Basophils (%) (Auto) 1.3 % (0.0-2.0) Sodium Level 141 MMOL/L (136-145) Potassium Level 3.9 MMOL/L (3.5-5.1) Chloride Level 104 MMOL/L (98-107) Carbon Dioxide Level 29 MMOL/L (21-32) Anion Gap 8 mmol/L (5-15) Blood Urea Nitrogen 7 mg/dL (7-18) Creatinine 0.7 MG/DL (0.55-1.30) Estimat Glomerular Filtration Rate > 60 mL/min (>60) Glucose Level 128 MG/DL (74-106) Calcium Level 10.6 MG/DL (8.5-10.1) Height (Feet): 5 Height (Inches): 7.00 Weight (Pounds): 150 Objective Gen: nad Pulm: ctab, no cwr CV: rrr Abd: soft, nt Ext: no cce Martinez Hill MD May 21, 2020 10:13
[2020-05-21] MEDS: Morphine Sulfate 4mg/ml Inj (IV USE ONLY) IVP PRN ×2 (10:40→20:23)
[2020-05-21 12:00] VITALS: BP 104/72
[2020-05-21 13:32] LABS: BASOPHILS % (AUTO) 1.9 % (0.0-2.0); EOSINOPHILS % (AUTO) 6.5 % (0.0-3.0); HEMATOCRIT 27.7 % (37.0-47.0); HEMOGLOBIN 8.4 G/DL (12.0-16.0); LYMPHOCYTES % (AUTO) 13.2 % (20.0-45.0); MEAN CORPUSCULAR VOLUME 91 FL (80-99); MONOCYTES % (AUTO) 4.7 % (1.0-10.0); NEUTROPHILS % (AUTO) 73.7 % (45.0-75.0); PLATELET COUNT 430 K/UL (150-450); RED BLOOD COUNT 3.03 M/UL (4.20-5.40); RED CELL DISTRIBUTION WIDTH 21.5 % (11.6-14.8); WHITE BLOOD COUNT 6.3 K/UL (4.8-10.8)
--- NOTE | 2020-05-21 14:25 | Nephrology Progress Note ---
Assessment/Plan Plan #acute kidney injury likely due to vanco toxicity #hypokalemia- #hypomagnesemia #Acute on chronic anemia #h/p non- hodgkins lymphoma #possible sepsis #+ COVID #Femoral intertrochanteric hip fracture. - replete k and mag - Pulmonary eval - prbc transfusion prn - replete lytes - hemo-onc eval - ID eval - monitor CBC - avoid nephrotoxins - ortho eval - spine eval for L3 acute on chronic bone infarct, less likely neoplasm or infection? times spent 65 min Subjective Subjective Dispo planning hip fracture noted ortho consulted Impression: Minimal distention of the rectum with feces, could represent mild rectal fecal impaction. Equivocal slight thickening of the rectal wall and stranding of the perirectal fat, if real could indicate mild stercoral proctitis Comminuted fracture of the left femoral head, neck, and intertrochanteric region, ununited. Possibly acute, but abundant soft tissues surrounding the fracture area raises possibility that this could be chronic. Correlate with clinical findings Other findings as noted, including evidence of old T12 vertebral body compression fracture and prior vertebral augmentation procedure, Morales catheter, subcentimeter low-attenuation lesions which probably represent renal cysts, small sliding-type hiatal hernia Impression: Unusual signal abnormality of the posterolateral aspect of the L3 vertebral body on the right. This appears to be confined to the vertebral body marrow space. Prior CT scan in retrospect demonstrates sclerotic areas in the same location. Most likely differential consideration is an atypical hemangioma. Other possibilities include acute on chronic bone infarct, less likely neoplasm or infection No other unusual contrast enhancement. No findings to suggest discitis or epidu ral abscess. Objective Objective Last 24 Hour Vital Signs Date Time Temp Pulse Resp B/P (MAP) Pulse Ox O2 Delivery O2 Flow Rate FiO2 05/21/20 12:00 97.8 101 18 104/72 (83) 96 05/21/20 11:10 97.8 05/21/20 09:00 Room Air 05/21/20 08:00 97.8 106 19 95/61 (72) 95 05/21/20 04:00 97.9 95 16 100/60 (73) 96 05/21/20 00:00 97.7 99 17 104/68 (80) 96 05/20/20 21:00 Room Air 05/20/20 20:00 98.3 103 15 102/65 (77) 96 05/20/20 16:00 98.0 94 19 115/63 (80) 98 Intake and Output 05/20/20 05/21/20 19:00 07:00 Intake Total 500 ml 240 ml Output Total 1100 ml 500 ml Balance -600 ml -260 ml Intake Oral 500 ml 240 ml Output Urine Total 1100 ml 500 ml # Voids 1 1 # Bowel Movements 1 Laboratory Tests 05/21/20 12:50: White Blood Count 6.3, Red Blood Count 3.03L, Hemoglobin 8.4L, Hematocrit 27.7L, Mean Corpuscular Volume 91, Mean Corpuscular Hemoglobin 27.6, Mean Corpuscular Hemoglobin Concent 30.3L, Red Cell Distribution Width 21.5H, Platelet Count 430, Mean Platelet Volume 6.1L, Neutrophils (%) (Auto) 73.7, Lymphocytes (%) (Auto) 13.2L, Monocytes (%) (Auto) 4.7, Eosinophils (%) (Auto) 6.5H, Basophils (%) (Auto) 1.9 Height (Feet): 5 Height (Inches): 7.00 Weight (Pounds): 150 Objective General Appearance: no apparent distress EENT: PERRL/EOMI Neck: non-tender, normal alignment Cardiovascular: normal peripheral pulses, normal rate Respiratory/Chest: chest wall non-tender, lungs clear Abdomen: normal bowel sounds, non tender Neurologic: alert, oriented x 3 Kallie Dykes M.D. May 21, 2020 14:25
[2020-05-21] MEDS: Morphine Sulfate 2mg/ml Inj(IV/IM USE ONLY) IVP PRN (15:46)
[2020-05-21 16:00] VITALS: BP 99/60
--- NOTE | 2020-05-21 17:38 | Neurology Progress Note ---
Interim History Interim History ROS Limited/Unobtainable: Yes Interim History noted hip Fx, remains in pain Objective Physical Exam Last Vital Signs Date Time Temp Pulse Resp B/P (MAP) Pulse Ox O2 Delivery O2 Flow Rate FiO2 05/21/20 16:16 97.8 05/21/20 12:00 101 18 104/72 (83) 96 05/21/20 09:00 Room Air 05/17/20 19:55 21 05/13/20 19:32 2.0 Laboratory Tests Test 05/21/20 12:50 White Blood Count 6.3 K/UL (4.8-10.8) Red Blood Count 3.03 M/UL (4.20-5.40) L Hemoglobin 8.4 G/DL (12.0-16.0) L Hematocrit 27.7 % (37.0-47.0) L Mean Corpuscular Volume 91 FL (80-99) Mean Corpuscular Hemoglobin 27.6 PG (27.0-31.0) Mean Corpuscular Hemoglobin Concent 30.3 G/DL (32.0-36.0) L Red Cell Distribution Width 21.5 % (11.6-14.8) H Platelet Count 430 K/UL (150-450) Mean Platelet Volume 6.1 FL (6.5-10.1) L Neutrophils (%) (Auto) 73.7 % (45.0-75.0) Lymphocytes (%) (Auto) 13.2 % (20.0-45.0) L Monocytes (%) (Auto) 4.7 % (1.0-10.0) Eosinophils (%) (Auto) 6.5 % (0.0-3.0) H Basophils (%) (Auto) 1.9 % (0.0-2.0) Impression/Recommendations Problems: (1) Anemia Status: stable, progressing Diagnostic Impression Chronic weakness, LE worse than UEs MRI spine noted, osteoma wo spine compression slplaminectomy COVID 19 pneumonia (febrile, tachycardic) Hx of Lymphoma cont medical support pain control PT as able Renny Bajwa MD May 21, 2020 17:38
--- NOTE | 2020-05-21 19:50 | NUR ---
NURSE NOTES: Patient awake in bed, alert and oriented x4, on room air no SOB noted. Complained of generalized pain 8.5/10. Will medicate as ordered. With Morales catheter in place and draining well. Instructed to use call light for assistance. Bed in lowest, lock engaged and alarm on. Will continue to monitor.
--- NOTE | 2020-05-21 19:53 | NUR ---
NURSE HAND-OFF: Important Events on Shift:[] Patient Status: [] Diet: [] Pending Orders: [] Pending Results/Labs:[] Pending MD notification:[] Latest Vital Signs: Temperature 97.8 , Pulse 127 , B/P 99 /60 , Respiratory Rate 18 , O2 SAT 97 , Nasal Cannula, O2 Flow Rate 2.0 . Vital Sign Comment: [] Latest [place] Fall Score: 35 Fall Risk: Medium Risk Safety Measures: Call light Within Reach, Bed Alarm Zone 1, Side Rails Side Rails x2, Bed position Low and Locked. Fall Precautions: Door Sign Patient Fall Education Report given to [REA Parish].
[2020-05-21 20:00] VITALS: BP 113/70
[2020-05-21] MEDS: Dyna-Hex 2% Top Sol 2oz TOPIC SCH (20:00)
--- NOTE | 2020-05-21 21:54 | General Progress Note ---
Subjective ROS Limited/Unobtainable: Yes Allergies: Coded Allergies: No Known Allergies (Unverified , 04/11/20) Objective Last 24 Hour Vital Signs Date Time Temp Pulse Resp B/P (MAP) Pulse Ox O2 Delivery O2 Flow Rate FiO2 05/21/20 20:00 99.5 115 18 113/70 (84) 96 05/21/20 16:16 97.8 05/21/20 16:00 98.7 127 18 99/60 (73) 97 05/21/20 12:00 97.8 101 18 104/72 (83) 96 05/21/20 11:10 97.8 05/21/20 09:00 Room Air 05/21/20 08:00 97.8 106 19 95/61 (72) 95 05/21/20 04:00 97.9 95 16 100/60 (73) 96 05/21/20 00:00 97.7 99 17 104/68 (80) 96 Intake and Output 05/20/20 05/21/20 19:00 07:00 Intake Total 500 ml 240 ml Output Total 1100 ml 500 ml Balance -600 ml -260 ml Intake Oral 500 ml 240 ml Output Urine Total 1100 ml 500 ml # Voids 1 1 # Bowel Movements 1 Laboratory Tests 05/21/20 12:50: White Blood Count 6.3, Red Blood Count 3.03L, Hemoglobin 8.4L, Hematocrit 27.7L, Mean Corpuscular Volume 91, Mean Corpuscular Hemoglobin 27.6, Mean Corpuscular Hemoglobin Concent 30.3L, Red Cell Distribution Width 21.5H, Platelet Count 430, Mean Platelet Volume 6.1L, Neutrophils (%) (Auto) 73.7, Lymphocytes (%) (Auto) 13.2L, Monocytes (%) (Auto) 4.7, Eosinophils (%) (Auto) 6.5H, Basophils (%) (Auto) 1.9 Height (Feet): 5 Height (Inches): 7.00 Weight (Pounds): 150 Assessment/Plan Problem List: (1) Anemia ICD Codes: D64.9 - Anemia, unspecified SNOMED: 562898792 Qualifiers: Qualified Codes: D64.9 - Anemia, unspecified (2) Hip fracture ICD Codes: S72.009A - Fracture of unspecified part of neck of unspecified femur, initial encounter for closed fracture SNOMED: 635696572 (3) Lymphoma ICD Codes: C85.90 - Non-Hodgkin lymphoma, unspecified, unspecified site SNOMED: 053162376 (4) JIM (acute kidney injury) ICD Codes: N17.9 - Acute kidney failure, unspecified SNOMED: 8304959, 30960691 Status: stable, progressing Assessment/Plan: lymphoma anemia afebrile pain chronic reviewed chart and labs and meds Charity Early MD May 21, 2020 21:53
[2020-05-22] VITALS (9 sets, daily range): BP systolic 82–125; BP diastolic 48–87
[2020-05-22] MEDS: Morphine Sulfate 4mg/ml Inj (IV USE ONLY) IVP PRN ×2 (03:21→08:20)
[2020-05-22] MEDS: Heparin 5000 units/ml inj SUBQ SCH ×3 (05:58→21:40)
[2020-05-22 06:32] LABS: BASOPHILS % (AUTO) 1.3 % (0.0-2.0); EOSINOPHILS % (AUTO) 4.8 % (0.0-3.0); HEMATOCRIT 26.4 % (37.0-47.0); LYMPHOCYTES % (AUTO) 8.7 % (20.0-45.0); MEAN CORPUSCULAR VOLUME 91 FL (80-99); MONOCYTES % (AUTO) 5.6 % (1.0-10.0); NEUTROPHILS % (AUTO) 79.6 % (45.0-75.0); PLATELET COUNT 407 K/UL (150-450); RED CELL DISTRIBUTION WIDTH 21.8 % (11.6-14.8); WHITE BLOOD COUNT 6.7 K/UL (4.8-10.8)
--- NOTE | 2020-05-22 06:49 | NUR ---
NURSE NOTES: Dr. Hill made aware of patient's hemoglobin 8.0. No new orders just to monitor patient. Charge nurse made aware.
--- NOTE | 2020-05-22 07:04 | Hematology/Onc Progress Note ---
Assessment/Plan Assessment/Plan # Leukopenia COVID19++++++++++ --> hep and hiv are neg --> wbc 4-->3-->2.9->2->4.6--4.1-->3.6-->4.7-->3.6->4.1-->4.7-->3.8-->3->5 --> Neupogen 300 x1 04/21 --> isolation if anc<500 # Non-Hodgkins Lymphoma is s/p chemotherapy in the past, Dr. Tovar of [facility] --> to return to [facility] for further treatment --> likely for ct/pet as outpatient --> CT Here shows no e/o disease --> imaging has been reviewed thus far --> last treatment was 02/2020, end date of 04/2020 # Anemia likely of chronic disease -- does not appear to have iron deficiency --> transfuse as needed, tibc and ferritin are cw acd --> hgb 7.8-->8.6-->8.5-->8.4->7.6-->10-->9.9->9.6-->8.7-->8-->9.2-->9.1 --> no hemolysis is noted --> s/p transfusion on admission # Covid 19++ with SIRS (febrile, tachycardic) --> per pulm and id --> CXR with diffuse non-specific inflammatory/infectious process --> s/p Cefepime (04/14 - 04/15) # Hypokalemia # Hypomagnesia # Chronic Back pain # Full Code # Dvt ppx heparin sq Appreciate consultation and dw Rn Subjective Constitutional: Denies: no symptoms, chills, fever, malaise, weakness, other HEENT: Denies: no symptoms, eye pain, blurred vision, tearing, double vision, ear pain, ear discharge, nose pain, nose congestion, throat pain, throat sw elling, mouth pain, mouth swelling, other Cardiovascular: Denies: no symptoms, chest pain, edema, irregular heart rate, lightheadedness, palpitations, syncope, other Respiratory: Denies: no symptoms, cough, shortness of breath, SOB with excertion, SOB at rest, sputum, wheezing, other Gastrointestinal/Abdominal: Denies: no symptoms, abdomen distended, abdominal pain, black stools, tarry stools, blood in stool, constipated, diarrhea, difficulty swallowing, nausea, poor appetite, poor fluid intake, rectal bleeding, vomiting, other Neurologic/Psychiatric: Denies: no symptoms, anxiety, depressed, emotional problems, headache, numbness, paresthesia, pre-existing deficit, seizure, tingling, tremors, weakness, other Endocrine: Denies: no symptoms, excessive sweating, flushing, intolerance to cold, intolerance to heat, increased hunger, increased thirst, increased urine, unexplained weight gain, unexplained weight loss, other Hematologic/Lymphatic: Denies: no symptoms, anemia, easy bleeding, easy bruising, adenopathy, other Allergies: Coded Allergies: No Known Allergies (Unverified , 04/11/20) Subjective 04/17 is on room air, more comfortable, potential dc to snf 04/18 labs reviewed, no bleeding, meds noted, no night sweats 04/19 sleeping comfortably, no major events, no night sweats 04/20 meds noted, labs reviewed, wbc 2.9, hep and hiv is neg 04/21 labs reviewed, in am, the wbc was 2, to get neupogen x 1 dose now 04/23 labs noted, no bleeding, wbc 4, hgb remains low, but holding off trans 04/24 labs are pending for am, meds reviewed, no bleeding 04/25 meds reviewed, labs noted, no night sweats, dw rn at bedside, no new events 04/26 labs reviewed, meds noted, no bleeding, wbc 3, hgb 7.6 04/27 dw rn at bedside, labs are noted, no bleeding, refusing heparin now sq 04/28 labs have been reviewed, is on room air, no bleeding, tachy 04/30 labs pending, no night sweats, meds reviewed, tachy, no night sweats, wants iv iron 05/01 dc planning, meds noted, for labs this am, no new events 05/02 meds reviewed, has been refusing care, continue heparin sq 05/03 labs reviewed, on 2lnc, no bleeding, remains on hep but refusing 05/04 meds ntoed, labs reviewed, no new changes, dw RN 05/05 meds noted, no bleeding, labs reviewed, no f/c 05/06: no acute events reported, no resp distress 05/07: no resp distress, vss on RA dc planning continues 05/08 on norco prn, nc, eaton, labs are noted 05/09 meds reviewed, labs pending, on nc, eaton 05/10 nc with eaton, no night sweats, meds have been reviewed 05/11 2lnc, bedbound no new changes, no new events, no bleeding 05/12: no acute events reported. No bleeding. 05/14 no new changes, no bleeding, meds noted, labs reviewed 05/15 labs are noted, no bleeding, meds reviewed, smear reviewed as well 05/16 awake, refusing meds, labs noted, has been refusing labs periodically 05/17 meds noted, no bleeding, no major events, hgb 9.1 05/18 labs reviewed, meds noted, hgb 8.4, no major changes 05/19 meds noted, labs reviewed, no major changes, no bleeding, sacral wound dressings 05/21 meds noted, eaton is in place, no night sweats, dw rn 05/22 labs reviewed, meds noted, for outpatient [facility] care Objective Objective Current Medications Medications (Trade) Dose Ordered Sig/Angelika Route PRN Reason Start Time Stop Time Status Last Admin Dose Admin Acetaminophen (Tylenol) 650 mg Q6H PRN ORAL Mild Pain (Pain Scale 1-3) 05/10/20 17:30 06/09/20 17:29 05/15/20 09:13 Acetaminophen (Tylenol) 650 mg Q6H PRN ORAL Temp >100.5 05/10/20 18:00 06/09/20 17:59 Acetaminophen/ Hydrocodone Bitart ([place] 10/325) 1 tab Q6H PRN ORAL Severe Pain (Pain Scale 7-10) 05/16/20 13:33 05/23/20 13:32 05/21/20 06:13 Acetaminophen/ Hydrocodone Bitart ([place] 5/325) 1 tab Q6H PRN ORAL Moderate Pain (Pain Scale 4-6) 05/16/20 13:33 05/23/20 13:32 05/20/20 06:03 Allopurinol (allopurinoL) 300 mg DAILY ORAL 05/12/20 09:00 06/11/20 08:59 05/21/20 08:33 Ascorbic Acid (Vitamin C) 500 mg DAILY ORAL 04/26/20 09:00 05/26/20 08:59 05/21/20 08:33 Baclofen (Lioresal) 10 mg THREE TIMES A DAY ORAL 05/11/20 13:00 06/10/20 12:59 Chlorhexidine Gluconate (Christy-Hex 2%) 1 applic Q24H TOPIC 04/25/20 20:00 07/24/20 19:59 05/16/20 20:03 Dronabinol (Marinol) 5 mg BID ORAL 05/01/20 09:00 07/30/20 08:59 05/21/20 17:14 Heparin Sodium (Porcine) (Heparin 5000 units/ml) 5,000 units EVERY 8 HOURS SUBQ 04/24/20 22:00 06/08/20 21:59 05/05/20 05:38 Linaclotide (Linzess) 290 mcg BEFORE BREAKFAST ORAL 04/26/20 06:30 07/25/20 06:29 05/22/20 06:00 Magnesium Oxide (Mag-Ox 400mg) 400 mg THREE TIMES A DAY ORAL 04/30/20 13:00 05/30/20 12:59 05/21/20 17:18 Morphine Sulfate (Morphine Sulfate) 2 mg Q3H PRN IVP Severe Pain (Pain Scale 7-10) 05/16/20 13:33 05/23/20 13:32 05/21/20 15:46 Morphine Sulfate (Morphine Sulfate) 4 mg Q3H PRN IVP SEVERE BREAKTHRU PAIN 05/16/20 13:33 05/23/20 13:32 05/22/20 03:21 Multivitamins (Multivitamins) 1 tab DAILY ORAL 04/26/20 09:00 05/26/20 08:59 05/21/20 08:33 Last 24 Hour Vital Signs Date Time Temp Pulse Resp B/P (MAP) Pulse Ox O2 Delivery O2 Flow Rate FiO2 05/22/20 04:00 98.4 117 20 125/68 (87) 96 05/22/20 00:00 98.8 109 17 104/65 (78) 93 05/21/20 21:00 Room Air 05/21/20 20:00 99.5 115 18 113/70 (84) 96 05/21/20 16:16 97.8 05/21/20 16:00 98.7 127 18 99/60 (73) 97 05/21/20 12:00 97.8 101 18 104/72 (83) 96 05/21/20 11:10 97.8 05/21/20 09:00 Room Air 05/21/20 08:00 97.8 106 19 95/61 (72) 95 05/21/20 04:00 97.9 95 16 100/60 (73) 96 05/21/20 00:00 97.7 99 17 104/68 (80) 96 05/20/20 21:00 Room Air 05/20/20 20:00 98.3 103 15 102/65 (77) 96 05/20/20 16:00 98.0 94 19 115/63 (80) 98 05/20/20 12:00 98.3 93 20 101/68 (79) 95 05/20/20 09:00 Room Air 05/20/20 08:00 98.2 110 19 103/66 (78) 97 Intake and Output 05/21/20 05/22/20 19:00 07:00 Intake Total 800 ml 480 ml Output Total 1000 ml 800 ml Balance -200 ml -320 ml Intake Oral 480 ml Other 800 ml Output Urine Total 1000 ml 800 ml # Bowel Movements 1 Labs Test 05/19/20 07:57 05/21/20 12:50 05/22/20 05:50 White Blood Count 6.8 K/UL (4.8-10.8) 6.3 K/UL (4.8-10.8) 6.7 K/UL (4.8-10.8) Red Blood Count 3.35 M/UL (4.20-5.40) 3.03 M/UL (4.20-5.40) 2.90 M/UL (4.20-5.40) Hemoglobin 9.0 G/DL (12.0-16.0) 8.4 G/DL (12.0-16.0) 8.0 G/DL (12.0-16.0) Hematocrit 30.6 % (37.0-47.0) 27.7 % (37.0-47.0) 26.4 % (37.0-47.0) Mean Corpuscular Volume 91 FL (80-99) 91 FL (80-99) 91 FL (80-99) Mean Corpuscular Hemoglobin 27.0 PG (27.0-31.0) 27.6 PG (27.0-31.0) 27.7 PG (27.0-31.0) Mean Corpuscular Hemoglobin Concent 29.6 G/DL (32.0-36.0) 30.3 G/DL (32.0-36.0) 30.5 G/DL (32.0-36.0) Red Cell Distribution Width 21.8 % (11.6-14.8) 21.5 % (11.6-14.8) 21.8 % (11.6-14.8) Platelet Count 463 K/UL (150-450) 430 K/UL (150-450) 407 K/UL (150-450) Mean Platelet Volume 6.2 FL (6.5-10.1) 6.1 FL (6.5-10.1) 6.1 FL (6.5-10.1) Neutrophils (%) (Auto) 79.5 % (45.0-75.0) 73.7 % (45.0-75.0) 79.6 % (45.0-75.0) Lymphocytes (%) (Auto) 7.0 % (20.0-45.0) 13.2 % (20.0-45.0) 8.7 % (20.0-45.0) Monocytes (%) (Auto) 4.9 % (1.0-10.0) 4.7 % (1.0-10.0) 5.6 % (1.0-10.0) Eosinophils (%) (Auto) 7.4 % (0.0-3.0) 6.5 % (0.0-3.0) 4.8 % (0.0-3.0) Basophils (%) (Auto) 1.3 % (0.0-2.0) 1.9 % (0.0-2.0) 1.3 % (0.0-2.0) Sodium Level 141 MMOL/L (136-145) Potassium Level 3.9 MMOL/L (3.5-5.1) Chloride Level 104 MMOL/L (98-107) Carbon Dioxide Level 29 MMOL/L (21-32) Anion Gap 8 mmol/L (5-15) Blood Urea Nitrogen 7 mg/dL (7-18) Creatinine 0.7 MG/DL (0.55-1.30) Estimat Glomerular Filtration Rate > 60 mL/min (>60) Glucose Level 128 MG/DL (74-106) Calcium Level 10.6 MG/DL (8.5-10.1) Height (Feet): 5 Height (Inches): 7.00 Weight (Pounds): 150 Objective Gen: nad Pulm: ctab, no cwr CV: rrr Abd: soft, nt Ext: no cce Martinez Hill MD May 22, 2020 07:04
--- NOTE | 2020-05-22 07:13 | NUR ---
NURSE HAND-OFF: Important Events on Shift: 1 BM, hygiene, turning positions Patient Status: Diet: regular Pending Orders: Pending Results/Labs: Pending MD notification: Latest Vital Signs: Temperature 98.4 , Pulse 117 , B/P 125 /68 , Respiratory Rate 20 , O2 SAT 96 , Nasal Cannula, O2 Flow Rate 2.0 . Vital Sign Comment: Latest [place] Fall Score: 35 Fall Risk: Medium Risk Safety Measures: Call light Within Reach, Bed Alarm Zone 1, Side Rails Side Rails x2, Bed position Low and Locked. Fall Precautions: Door Sign Patient Fall Education Report given to REA Reyes.
--- NOTE | 2020-05-22 07:31 | NUR ---
NURSE NOTES: Report received from Amaury LUCIA, rounds made.Patient resting in semi hearn position in bed, AOx4, calm. Respirations even/unlabored on RA (uses O2 2LNC as needed). Generalized pain 8/10, will review pain medications with patient and medicate as ordered. Bilateral SCDs off,will reapply as patient tolerates. FC patent, y/cl urine to gravity/anchor in place. RFA saline lock,intact, site asymptomatic. Call light in reach, bed in lowest position, will continue to monitor.
[2020-05-22] MEDS: Ascorbic Acid 500mg tab ORAL SCH (08:21)
[2020-05-22] MEDS: Dronabinol 2.5mg Cap ORAL SCH ×2 (08:21→18:07)
[2020-05-22] MEDS: Magnesium Oxide 400mg tab ORAL SCH ×3 (08:21→18:07)
--- NOTE | 2020-05-22 09:14 | Pulmonology Progress Note ---
Subjective ROS Limited/Unobtainable: Yes Interval Events: None new Constitutional: Reports: fever - Tmax=99.5, fatigue HEENT: Repors: no symptoms Respiratory: Reports: no symptoms, dry cough Cardiovascular: Reports: no symptoms Gastrointestinal/Abdominal: Denies: nausea, vomiting, diarrhea Psychiatric: Denies: depression Skin: Denies: rash Musculoskeletal: Denies: pain Allergies: Coded Allergies: No Known Allergies (Unverified , 04/11/20) All Systems: reviewed and negative except above Objective Last 24 Hour Vital Signs Date Time Temp Pulse Resp B/P (MAP) Pulse Ox O2 Delivery O2 Flow Rate FiO2 05/22/20 08:00 97.6 113 18 90/58 (69) 98 05/22/20 04:00 98.4 117 20 125/68 (87) 96 05/22/20 00:00 98.8 109 17 104/65 (78) 93 05/21/20 21:00 Room Air 05/21/20 20:00 99.5 115 18 113/70 (84) 96 05/21/20 16:16 97.8 05/21/20 16:00 98.7 127 18 99/60 (73) 97 05/21/20 12:00 97.8 101 18 104/72 (83) 96 05/21/20 11:10 97.8 Intake and Output 05/21/20 05/22/20 19:00 07:00 Intake Total 800 ml 480 ml Output Total 1000 ml 800 ml Balance -200 ml -320 ml Intake Oral 480 ml Other 800 ml Output Urine Total 1000 ml 800 ml # Bowel Movements 1 Objective 05/22 no change respiratory salomon 05/20 stable on room air 05/19 on and off 2L NC but stable on room air 05/18 stable 05/17 stable 05/16 no change 05/15 stable respiration on room air 05/12 no change respiratory-salomon 05/11 no change 05/10 no change, still on 1-2L NC 05/09 no change, still on 2L NC 05/08 no change respiratory-salomon; stable 05/07 stable saturation 05/06 no change 05/05 no change respiratory-salomon; stable no change 05/03 no change; AM labs unavailable 05/02 on and off 2 L NC; NAD 05/01 no change 04/28 on and off 1 L NC; NAD 04/27 on and off 1 L NC; NAD 04/26 still on 1 L NC; NAD 04/25 no change respiratory-salomon 04/24 no change 04/23 on and off 1 lpm NC 04/22 saturating well on and off 1 lpm NC 04/21 no change 04/20 pt saturating well on 2 lpm NC; NAD 04/19 pt saturating well on 2 lpm NC; NAD 04/18 pt saturating well on 2 lpm NC General Appearance: WD/WN, no acute distress HEENT: normocephalic, atraumatic Respiratory: lungs clear Cardiovascular: normal rate, regular rhythm, tachycardia - intermittent Abdomen: soft, non tender Genitourinary: other - Morales Extremities: no edema Laboratory Tests 05/21/20 12:50: White Blood Count 6.3, Red Blood Count 3.03L, Hemoglobin 8.4L, Hematocrit 27.7L, Mean Corpuscular Volume 91, Mean Corpuscular Hemoglobin 27.6, Mean Corpuscular Hemoglobin Concent 30.3L, Red Cell Distribution Width 21.5H, Platelet Count 430, Mean Platelet Volume 6.1L, Neutrophils (%) (Auto) 73.7, Lymphocytes (%) (Auto) 13.2L, Monocytes (%) (Auto) 4.7, Eosinophils (%) (Auto) 6.5H, Basophils (%) (Auto) 1.9 05/22/20 05:50: White Blood Count 6.7, Red Blood Count 2.90L, Hemoglobin 8.0L, Hematocrit 26.4L, Mean Corpuscular Volume 91, Mean Corpuscular Hemoglobin 27.7, Mean Corpuscular Hemoglobin Concent 30.5L, Red Cell Distribution Width 21.8H, Platelet Count 407, Mean Platelet Volume 6.1L, Neutrophils (%) (Auto) 79.6H, Lymphocytes (%) (Auto) 8.7L, Monocytes (%) (Auto) 5.6, Eosinophils (%) (Auto) 4.8H, Basophils (%) (Auto) 1.3 Current Medications Medications (Trade) Dose Ordered Sig/Angelika Route PRN Reason Start Time Stop Time Status Last Admin Dose Admin Acetaminophen (Tylenol) 650 mg Q6H PRN ORAL Mild Pain (Pain Scale 1-3) 05/10/20 17:30 06/09/20 17:29 05/15/20 09:13 Acetaminophen (Tylenol) 650 mg Q6H PRN ORAL Temp >100.5 05/10/20 18:00 06/09/20 17:59 Acetaminophen/ Hydrocodone Bitart ([place] 10/325) 1 tab Q6H PRN ORAL Severe Pain (Pain Scale 7-10) 05/16/20 13:33 05/23/20 13:32 05/21/20 06:13 Acetaminophen/ Hydrocodone Bitart ([place] 5/325) 1 tab Q6H PRN ORAL Moderate Pain (Pain Scale 4-6) 05/16/20 13:33 05/23/20 13:32 05/20/20 06:03 Allopurinol (allopurinoL) 300 mg DAILY ORAL 05/12/20 09:00 06/11/20 08:59 05/22/20 08:21 Ascorbic Acid (Vitamin C) 500 mg DAILY ORAL 04/26/20 09:00 05/26/20 08:59 05/22/20 08:21 Baclofen (Lioresal) 10 mg THREE TIMES A DAY ORAL 05/11/20 13:00 06/10/20 12:59 05/22/20 08:21 Chlorhexidine Gluconate (Christy-Hex 2%) 1 applic Q24H TOPIC 04/25/20 20:00 07/24/20 19:59 05/16/20 20:03 Dronabinol (Marinol) 5 mg BID ORAL 05/01/20 09:00 07/30/20 08:59 05/22/20 08:21 Heparin Sodium (Porcine) (Heparin 5000 units/ml) 5,000 units EVERY 8 HOURS SUBQ 04/24/20 22:00 06/08/20 21:59 05/05/20 05:38 Linaclotide (Linzess) 290 mcg BEFORE BREAKFAST ORAL 04/26/20 06:30 07/25/20 06:29 05/22/20 06:00 Magnesium Oxide (Mag-Ox 400mg) 400 mg THREE TIMES A DAY ORAL 04/30/20 13:00 05/30/20 12:59 05/22/20 08:21 Morphine Sulfate (Morphine Sulfate) 2 mg Q3H PRN IVP Severe Pain (Pain Scale 7-10) 05/16/20 13:33 05/23/20 13:32 05/21/20 15:46 Morphine Sulfate (Morphine Sulfate) 4 mg Q3H PRN IVP SEVERE BREAKTHRU PAIN 05/16/20 13:33 05/23/20 13:32 05/22/20 08:20 Multivitamins (Multivitamins) 1 tab DAILY ORAL 04/26/20 09:00 05/26/20 08:59 05/22/20 08:21 Assessment/Plan Assessment/Plan 1. COVID-19 infection - COVID-19 PCR 04/21 positive: now off isolation - no indication for steroid or remdesivir given her normoxemia - s/p cefepime - CXR with diffuse non-specific inflammatory/infectious process - elective use of low flow oxygen; stable on room air - CT A/P/C - no obvious pna or abscess, cultures negative 2. Immunocompromised state with history of non-Hodgkin lymphoma. - h/o port line infection; s/p Vanco - to return to [facility] for further Tx 3. Fever; resolved - urine culture showed zee albicans - blood culture showed no growth 4. Hx of Hypertension. 5. Hx of gout. 6. Anemia - s/p pRBC 7. DVT ppx - on SCD 8. Low TSH; improving - Dr. Fermin following - no need for levothyroxine per Dr. Fermin 9. Zee UTI - Urine Cx showed zee albicans - On fluconazole 200mg daily for 5 days (05/04 - 05/09) per ID 10. Hypokalemia - potassium replaced per neprho 11. Hypomagnesemia - Mg replaced per nephro 12. 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
--- NOTE | 2020-05-22 10:14 | General Progress Note ---
Subjective ROS Limited/Unobtainable: Yes Allergies: Coded Allergies: No Known Allergies (Unverified , 04/11/20) Objective Last 24 Hour Vital Signs Date Time Temp Pulse Resp B/P (MAP) Pulse Ox O2 Delivery O2 Flow Rate FiO2 05/22/20 08:00 97.6 113 18 90/58 (69) 98 05/22/20 04:00 98.4 117 20 125/68 (87) 96 05/22/20 00:00 98.8 109 17 104/65 (78) 93 05/21/20 21:00 Room Air 05/21/20 20:00 99.5 115 18 113/70 (84) 96 05/21/20 16:16 97.8 05/21/20 16:00 98.7 127 18 99/60 (73) 97 05/21/20 12:00 97.8 101 18 104/72 (83) 96 05/21/20 11:10 97.8 Intake and Output 05/21/20 05/22/20 19:00 07:00 Intake Total 800 ml 480 ml Output Total 1000 ml 800 ml Balance -200 ml -320 ml Intake Oral 480 ml Other 800 ml Output Urine Total 1000 ml 800 ml # Bowel Movements 1 Laboratory Tests 05/21/20 12:50: White Blood Count 6.3, Red Blood Count 3.03L, Hemoglobin 8.4L, Hematocrit 27.7L, Mean Corpuscular Volume 91, Mean Corpuscular Hemoglobin 27.6, Mean Corpuscular Hemoglobin Concent 30.3L, Red Cell Distribution Width 21.5H, Platelet Count 430, Mean Platelet Volume 6.1L, Neutrophils (%) (Auto) 73.7, Lymphocytes (%) (Auto) 13.2L, Monocytes (%) (Auto) 4.7, Eosinophils (%) (Auto) 6.5H, Basophils (%) (Auto) 1.9 05/22/20 05:50: White Blood Count 6.7, Red Blood Count 2.90L, Hemoglobin 8.0L, Hematocrit 26.4L, Mean Corpuscular Volume 91, Mean Corpuscular Hemoglobin 27.7, Mean Corpuscular Hemoglobin Concent 30.5L, Red Cell Distribution Width 21.8H, Platelet Count 407, Mean Platelet Volume 6.1L, Neutrophils (%) (Auto) 79.6H, Lymphocytes (%) (Auto) 8.7L, Monocytes (%) (Auto) 5.6, Eosinophils (%) (Auto) 4.8H, Basophils (%) (Auto) 1.3 Height (Feet): 5 Height (Inches): 7.00 Weight (Pounds): 150 General Appearance: no apparent distress EENT: PERRL/EOMI Neck: supple Cardiovascular: normal rate Respiratory/Chest: decreased breath sounds Abdomen: hypoactive bowel sounds Extremities: non-tender Assessment/Plan Status: stable, progressing Assessment/Plan: iron def anemia mild elevated CEA lymphoma on chemo covid positive neg stool ob iv iron, completed fu H&H needs out patient fu for colonoscopy fu oncology CT reviewed colace miralax lactulose Patrick Feliciano MD May 22, 2020 10:14
--- NOTE | 2020-05-22 11:57 | NUR ---
PT WEEKLY PROGRESS NOTE Patient being seen by PT for therapeutic exercises, balance training and bed mobility training. Patient requires mod/max assist to come to sitting at the EOB, requires total assist to maneuver BLE towards the EOB and when returning back to bed. Patient unable to stand at this time. Patient limited by c/o back pain and weakness. Patient will benefit from skilled inpatient PT intervention to increase strength and postural stability for improved level of functional mobility and safety.
--- NOTE | 2020-05-22 12:27 | Nephrology Progress Note ---
Assessment/Plan Plan #acute kidney injury likely due to vanco toxicity #hypokalemia- #hypomagnesemia #Acute on chronic anemia #h/p non- hodgkins lymphoma #possible sepsis #+ COVID #Femoral intertrochanteric hip fracture. - NS bolus - replete k and mag - Pulmonary eval - prbc transfusion prn - replete lytes - hemo-onc eval - ID eval - monitor CBC - avoid nephrotoxins - ortho eval - spine eval for L3 acute on chronic bone infarct, less likely neoplasm or infection? times spent 65 min Subjective ROS Limited/Unobtainable: No Constitutional: Reports: weakness HEENT: Denies: no symptoms, eye pain, blurred vision, tearing, double vision, ear pain, ear discharge, nose pain, nose congestion, throat pain, throat swelling, mouth pain, mouth swelling, other Genitourinary: Denies: no symptoms, burning, discharge, frequency, flank pain, hematuria, incontinence, pain, urgency, other Neurologic/Psychiatric: Denies: no symptoms, anxiety, depressed, emotional problems, headache, numbness, paresthesia, pre-existing deficit, seizure, tingling, tremors, weakness, other Subjective hypotensive s/p NS bolus hip fracture noted ortho consulted Impression: Minimal distention of the rectum with feces, could represent mild rectal fecal impaction. Equivocal slight thickening of the rectal wall and stranding of the perirectal fat, if real could indicate mild stercoral proctitis Comminuted fracture of the left femoral head, neck, and intertrochanteric region, ununited. Possibly acute, but abundant soft tissues surrounding the fracture area raises possibility that this could be chronic. Correlate with clinical findings Other findings as noted, including evidence of old T12 vertebral body compression fracture and prior vertebral augmentation procedure, Morales catheter, subcentimeter low-attenuation lesions which probably represent renal cysts, small sliding-type hiatal hernia Impression: Unusual signal abnormality of the posterolateral aspect of the L3 vertebral body on the right. This appears to be confined to the vertebral body marrow space. Prior CT scan in retrospect demonstrates sclerotic areas in the same location. Most likely differential consideration is an atypical hemangioma. Other possibilities include acute on chronic bone infarct, less likely neoplasm or infection No other unusual contrast enhancement. No findings to suggest discitis or epidural abscess. Objective Objective Last 24 Hour Vital Signs Date Time Temp Pulse Resp B/P (MAP) Pulse Ox O2 Delivery O2 Flow Rate FiO2 05/22/20 08:00 97.6 113 18 90/58 (69) 98 05/22/20 04:00 98.4 117 20 125/68 (87) 96 05/22/20 00:00 98.8 109 17 104/65 (78) 93 05/21/20 21:00 Room Air 05/21/20 20:00 99.5 115 18 113/70 (84) 96 05/21/20 16:16 97.8 05/21/20 16:00 98.7 127 18 99/60 (73) 97 Intake and Output 05/21/20 05/22/20 19:00 07:00 Intake Total 800 ml 480 ml Output Total 1000 ml 800 ml Balance -200 ml -320 ml Intake Oral 480 ml Other 800 ml Output Urine Total 1000 ml 800 ml # Bowel Movements 1 Laboratory Tests 05/21/20 12:50: White Blood Count 6.3, Red Blood Count 3.03L, Hemoglobin 8.4L, Hematocrit 27.7L, Mean Corpuscular Volume 91, Mean Corpuscular Hemoglobin 27.6, Mean Corpuscular Hemoglobin Concent 30.3L, Red Cell Distribution Width 21.5H, Platelet Count 430, Mean Platelet Volume 6.1L, Neutrophils (%) (Auto) 73.7, Lymphocytes (%) (Auto) 13.2L, Monocytes (%) (Auto) 4.7, Eosinophils (%) (Auto) 6.5H, Basophils (%) (Auto) 1.9 05/22/20 05:50: White Blood Count 6.7, Red Blood Count 2.90L, Hemoglobin 8.0L, Hematocrit 26.4L, Mean Corpuscular Volume 91, Mean Corpuscular Hemoglobin 27.7, Mean Corpuscular Hemoglobin Concent 30.5L, Red Cell Distribution Width 21.8H, Platelet Count 407, Mean Platelet Volume 6.1L, Neutrophils (%) (Auto) 79.6H, Lymphocytes (%) (Auto) 8.7L, Monocytes (%) (Auto) 5.6, Eosinophils (%) (Auto) 4.8H, Basophils (%) (Auto) 1.3 Height (Feet): 5 Height (Inches): 7.00 Weight (Pounds): 150 Objective General Appearance: no apparent distress EENT: PERRL/EOMI Neck: non-tender, normal alignment Cardiovascular: normal peripheral pulses, normal rate Respiratory/Chest: chest wall non-tender, lungs clear Abdomen: normal bowel sounds, non tender Neurologic: alert, oriented x 3 Kallie Dykes M.D. May 22, 2020 12:27
[2020-05-22] MEDS: HYDROcodone/Acetamin 10/325 tab ORAL PRN ×2 (12:31→21:59)
--- NOTE | 2020-05-22 12:50 | NUR ---
NURSE NOTES: NS 1 liter bolus x1 administered as ordered at this time. Will monitor BP.
--- NOTE | 2020-05-22 13:44 | NUR ---
CASE MANAGEMENT:REVIEW SI;CHRONIC LT HIP FX (NWB). UTI. 99.5 127 20 90/58 93% ON RA H/H- 8.0/26.4 GLU+ 128 CA+ 10.6 IS;MORPHINE SULFATE IV Q3 PRN NORCO PO Q6 ORB BACLOFEN PO TID MARINOL PO VID MAG-OX PO TID VIT C PO QD HEPARIN SQ Q8 VITAMIN C PO QD LINZESS PO QD MED SURG STATUS DCP;PENDING SNF PLACEMENT PATIENT REFERRED TO A NUMBER OF FACILITIES NO ACCEPTING FACILITY TO DATE NCM AT INSURANCE IPA INFORMED OF PLACEMENT BARRIERS
--- NOTE | 2020-05-22 14:07 | Cardiac Electrophysiology PN ---
Assessment/Plan Assessment/Plan 1. Sinus tachycardia due to sepsis, anemia and COVID. Resolved 2. S/P COVID pneumonia. Off isolation and on RA 3. Hypokalemia and Hypomagnesemia.Replaced 5. History of non-Hodgkin lymphoma. 6. Leukopenia and anemia. FU Dr. Valencia S/P PRBC 7. Left Hip Fx; Likely Chronic > Patient states she fell 5 months ago and had hard fall on coccyx in 2018. Minimal pain in left hip Per Dr. Payan risks > benefits. DW RN Subjective Subjective Off Covid isolation on RA awaiting SNIF placement . Objective Last 24 Hour Vital Signs Date Time Temp Pulse Resp B/P (MAP) Pulse Ox O2 Delivery O2 Flow Rate FiO2 05/22/20 08:00 97.6 113 18 90/58 (69) 98 05/22/20 04:00 98.4 117 20 125/68 (87) 96 05/22/20 00:00 98.8 109 17 104/65 (78) 93 05/21/20 21:00 Room Air 05/21/20 20:00 99.5 115 18 113/70 (84) 96 05/21/20 16:16 97.8 05/21/20 16:00 98.7 127 18 99/60 (73) 97 Intake and Output 05/21/20 05/22/20 19:00 07:00 Intake Total 800 ml 480 ml Output Total 1000 ml 800 ml Balance -200 ml -320 ml Intake Oral 480 ml Other 800 ml Output Urine Total 1000 ml 800 ml # Bowel Movements 1 Laboratory Tests Test 05/22/20 05:50 White Blood Count 6.7 K/UL (4.8-10.8) Red Blood Count 2.90 M/UL (4.20-5.40) L Hemoglobin 8.0 G/DL (12.0-16.0) L Hematocrit 26.4 % (37.0-47.0) L Mean Corpuscular Volume 91 FL (80-99) Mean Corpuscular Hemoglobin 27.7 PG (27.0-31.0) Mean Corpuscular Hemoglobin Concent 30.5 G/DL (32.0-36.0) L Red Cell Distribution Width 21.8 % (11.6-14.8) H Platelet Count 407 K/UL (150-450) Mean Platelet Volume 6.1 FL (6.5-10.1) L Neutrophils (%) (Auto) 79.6 % (45.0-75.0) H Lymphocytes (%) (Auto) 8.7 % (20.0-45.0) L Monocytes (%) (Auto) 5.6 % (1.0-10.0) Eosinophils (%) (Auto) 4.8 % (0.0-3.0) H Basophils (%) (Auto) 1.3 % (0.0-2.0) Objective HEAD AND NECK: No JVD. LUNGS: Coarse rhonchi. CARDIOVASCULAR: Regular S1 and S2 with no gallop or murmur. ABDOMEN: Soft. EXTREMITIES: No pitting edema. Ehsan Wan MD May 22, 2020 14:07
--- NOTE | 2020-05-22 15:00 | NUR ---
NURSE NOTES: Dr. Simons, and Dr. Rosario aware of HH 8.0/26.4, no further orders. No s/s of bleeding.
--- NOTE | 2020-05-22 15:37 | NUR ---
NURSE NOTES: Dr. Dykes notified of BP 84/49 HR 99, orders for NS 1 liter bolus x1. Will follow as ordered.
--- NOTE | 2020-05-22 17:20 | Neurology Progress Note ---
Interim History Interim History ROS Limited/Unobtainable: No Interim History no new deficits, dispo planning Objective Physical Exam Last Vital Signs Date Time Temp Pulse Resp B/P (MAP) Pulse Ox O2 Delivery O2 Flow Rate FiO2 05/22/20 12:00 97.7 103 18 104/69 (81) 96 05/21/20 21:00 Room Air 05/17/20 19:55 21 05/13/20 19:32 2.0 Laboratory Tests Test 05/22/20 05:50 White Blood Count 6.7 K/UL (4.8-10.8) Red Blood Count 2.90 M/UL (4.20-5.40) L Hemoglobin 8.0 G/DL (12.0-16.0) L Hematocrit 26.4 % (37.0-47.0) L Mean Corpuscular Volume 91 FL (80-99) Mean Corpuscular Hemoglobin 27.7 PG (27.0-31.0) Mean Corpuscular Hemoglobin Concent 30.5 G/DL (32.0-36.0) L Red Cell Distribution Width 21.8 % (11.6-14.8) H Platelet Count 407 K/UL (150-450) Mean Platelet Volume 6.1 FL (6.5-10.1) L Neutrophils (%) (Auto) 79.6 % (45.0-75.0) H Lymphocytes (%) (Auto) 8.7 % (20.0-45.0) L Monocytes (%) (Auto) 5.6 % (1.0-10.0) Eosinophils (%) (Auto) 4.8 % (0.0-3.0) H Basophils (%) (Auto) 1.3 % (0.0-2.0) Impression/Recommendations Problems: (1) Anemia Status: stable, progressing Diagnostic Impression Chronic weakness, LE worse than UEs MRI spine noted, osteoma wo spine compression slplaminectomy COVID 19 pneumonia (febrile, tachycardic) Hx of Lymphoma cont medical support pain control PT as able Renny Bajwa MD May 22, 2020 17:19
--- NOTE | 2020-05-22 17:40 | NUR ---
NURSE NOTES: After second bolus, Dr. Dykes notified of (L)BP 82/51 HR 101, (R) BP 85/48 HR 102 , orders for NS 1 liter bolus x1 (which will be the third bolus). Will follow as ordered.
--- NOTE | 2020-05-22 19:20 | NUR ---
NURSE NOTES: Received report from REA Reyes. Pt is A&Ox4, in no distress. Call light within reach, pt's blood pressure was noted to be low in the 80's during day shift and pt received 3 liters worth of bolus. Will continue to monitor.
--- NOTE | 2020-05-22 19:27 | NUR ---
NURSE HAND-OFF: Important Events on Shift:Bolus (1L)x3, low BP Patient Status: stable Diet: regular Pending Orders: none Pending Results/Labs:none Pending MD notification:none Latest Vital Signs: Temperature 97.7 , Pulse 102 , B/P 89 /55 , Respiratory Rate 18 , O2 SAT 99 , Nasal Cannula, O2 Flow Rate 2.0 . Vital Sign Comment: monitor BP Latest Urbina Fall Score: 35 Fall Risk: Medium Risk Safety Measures: Call light Within Reach, Bed Alarm Zone 1, Side Rails Side Rails x2, Bed position Low and Locked. Fall Precautions: Door Sign Patient Fall Education Report given to Eddy LUCIA.
--- NOTE | 2020-05-22 19:32 | NUR ---
NURSE HAND-OFF: Important Events on Shift:DCP for 05/23 to [facility] after 3p Patient Status: stable Diet: regular Pending Orders: Discharge Pending Results/Labs:none Pending MD notification:none Latest Vital Signs: Temperature 97.7 , Pulse 102 , B/P 89 /55 , Respiratory Rate 18 , O2 SAT 99 , Nasal Cannula, O2 Flow Rate 2.0 . Vital Sign Comment: none Latest Urbina Fall Score: 35 Fall Risk: Medium Risk Safety Measures: Call light Within Reach, Bed Alarm Zone 1, Side Rails Side Rails x2, Bed position Low and Locked. Fall Precautions: Door Sign Patient Fall Education Report given to Raysa LUCIA. Addendum: 05/22/20 at 1948 by Amy Solis RN WRONG PATIENT
[2020-05-22] MEDS: Dyna-Hex 2% Top Sol 2oz TOPIC SCH (19:47)
[2020-05-22] MEDS: Morphine Sulfate 2mg/ml Inj(IV/IM USE ONLY) IVP PRN (19:57)
--- NOTE | 2020-05-22 21:58 | General Progress Note ---
Subjective ROS Limited/Unobtainable: Yes Allergies: Coded Allergies: No Known Allergies (Unverified , 04/11/20) Objective Last 24 Hour Vital Signs Date Time Temp Pulse Resp B/P (MAP) Pulse Ox O2 Delivery O2 Flow Rate FiO2 05/22/20 19:46 98.1 92 18 125/87 (100) 99 05/22/20 18:05 102 89/55 (66) 05/22/20 16:45 101 82/51 (61) 102 85/48 (60) 05/22/20 16:00 97.7 100 18 82/48 (59) 99 05/22/20 15:35 99 84/49 (61) 05/22/20 12:00 97.7 103 18 104/69 (81) 96 05/22/20 09:00 Room Air 05/22/20 08:00 97.6 113 18 90/58 (69) 98 05/22/20 04:00 98.4 117 20 125/68 (87) 96 05/22/20 00:00 98.8 109 17 104/65 (78) 93 Intake and Output 05/21/20 05/22/20 19:00 07:00 Intake Total 800 ml 480 ml Output Total 1000 ml 800 ml Balance -200 ml -320 ml Intake Oral 480 ml Other 800 ml Output Urine Total 1000 ml 800 ml # Bowel Movements 1 Laboratory Tests 05/22/20 05:50: White Blood Count 6.7, Red Blood Count 2.90L, Hemoglobin 8.0L, Hematocrit 26.4L, Mean Corpuscular Volume 91, Mean Corpuscular Hemoglobin 27.7, Mean Corpuscular Hemoglobin Concent 30.5L, Red Cell Distribution Width 21.8H, Platelet Count 407, Mean Platelet Volume 6.1L, Neutrophils (%) (Auto) 79.6H, Lymphocytes (%) (Auto) 8.7L, Monocytes (%) (Auto) 5.6, Eosinophils (%) (Auto) 4.8H, Basophils (%) (Auto) 1.3 Height (Feet): 5 Height (Inches): 7.00 Weight (Pounds): 150 Assessment/Plan Problem List: (1) Anemia ICD Codes: D64.9 - Anemia, unspecified SNOMED: 889829978 Qualifiers: Qualified Codes: D64.9 - Anemia, unspecified (2) Hip fracture ICD Codes: S72.009A - Fracture of unspecified part of neck of unspecified femur, initial encounter for closed fracture SNOMED: 578258381 (3) Lymphoma ICD Codes: C85.90 - Non-Hodgkin lymphoma, unspecified, unspecified site SNOMED: 241141735 (4) JIM (acute kidney injury) ICD Codes: N17.9 - Acute kidney failure, unspecified SNOMED: 3594834, 61988407 Status: stable, progressing Assessment/Plan: lymphoma anemia pain chronic vitals stable no wheezing no fever Charity Early MD May 22, 2020 21:58
[2020-05-23] VITALS: BP 110/70
[2020-05-23 04:00] VITALS: BP 140/69
[2020-05-23] MEDS: Morphine Sulfate 4mg/ml Inj (IV USE ONLY) IVP PRN ×2 (04:24→11:43)
[2020-05-23] MEDS: Heparin 5000 units/ml inj SUBQ SCH ×3 (06:00→21:16)
--- NOTE | 2020-05-23 06:48 | General Progress Note ---
Subjective ROS Limited/Unobtainable: No Allergies: Coded Allergies: No Known Allergies (Unverified , 04/11/20) Objective Last 24 Hour Vital Signs Date Time Temp Pulse Resp B/P (MAP) Pulse Ox O2 Delivery O2 Flow Rate FiO2 05/23/20 04:00 97.5 95 18 140/69 (92) 98 05/23/20 00:00 97.9 101 18 110/70 (83) 100 05/22/20 21:00 Room Air 05/22/20 19:46 98.1 92 18 125/87 (100) 99 05/22/20 18:05 102 89/55 (66) 05/22/20 16:45 101 82/51 (61) 102 85/48 (60) 05/22/20 16:00 97.7 100 18 82/48 (59) 99 05/22/20 15:35 99 84/49 (61) 05/22/20 12:00 97.7 103 18 104/69 (81) 96 05/22/20 09:00 Room Air 05/22/20 08:00 97.6 113 18 90/58 (69) 98 Intake and Output 05/22/20 05/23/20 19:00 07:00 Intake Total 800 ml Output Total 1750 ml 1500 ml Balance -1750 ml -700 ml Intake Oral 800 ml Output Urine Total 1750 ml 1500 ml # Bowel Movements 2 2 Height (Feet): 5 Height (Inches): 7.00 Weight (Pounds): 150 General Appearance: no apparent distress EENT: normal ENT inspection Neck: supple Cardiovascular: normal rate Respiratory/Chest: decreased breath sounds Abdomen: normal bowel sounds, non tender, soft Extremities: non-tender Assessment/Plan Status: stable, progressing Assessment/Plan: iron def anemia mild elevated CEA lymphoma on chemo covid positive>>> now off isolation neg stool ob in 12 iv iron, completed fu H&H needs out patient fu for colonoscopy fu oncology CT reviewed colace miralax lactulose linzess marinol patient was hypotensive yesterday requiring iv boluses no active GIB repeat cbc and stool ob Patrick Carter MD May 23, 2020 06:48
[2020-05-23 07:07] LABS: HEMATOCRIT 25.7 % (37.0-47.0); HEMOGLOBIN 7.7 G/DL (12.0-16.0); MEAN CORPUSCULAR VOLUME 93 FL (80-99); PLATELET COUNT 373 K/UL (150-450); RED BLOOD COUNT 2.76 M/UL (4.20-5.40); RED CELL DISTRIBUTION WIDTH 22.1 % (11.6-14.8); WHITE BLOOD COUNT 6.5 K/UL (4.8-10.8)
--- NOTE | 2020-05-23 07:25 | NUR ---
NURSE HAND-OFF: Important Events on Shift: Pain management, BMx1 Patient Status: Calm Diet: reguar Pending Orders: Pending Results/Labs: Pending MD notification: Latest Vital Signs: Temperature 97.5 , Pulse 95 , B/P 140 /69 , Respiratory Rate 18 , O2 SAT 98 , Nasal Cannula, O2 Flow Rate 2.0 . Vital Sign Comment: VSS Latest Urbina Fall Score: 35 Fall Risk: Medium Risk Safety Measures: Call light Within Reach, Bed Alarm Zone 1, Side Rails Side Rails x2, Bed position Low and Locked. Fall Precautions: Door Sign Patient Fall Education Report given to REA Bell.
--- NOTE | 2020-05-23 07:30 | NUR ---
NURSE NOTES: Received report from Eddy LUCIA. Patient is awake and oriented, in no distress, reporting pain in lower back that is chronic, will medicate per order. F/c draining to gravity, yellow urine noted. Patient informed and aware there is order to collect stool OB and informed to notify nurse when she needs to have BM, patient verbalized agreement. Updated on plan of care. Side rails upx3, bed low and locked, call light within reach.
[2020-05-23 08:00] VITALS: BP 114/75
[2020-05-23] MEDS: Dronabinol 2.5mg Cap ORAL SCH ×2 (08:37→17:34)
[2020-05-23] MEDS: Magnesium Oxide 400mg tab ORAL SCH ×3 (08:38→17:34)
[2020-05-23] MEDS: Ascorbic Acid 500mg tab ORAL SCH (08:38)
[2020-05-23] MEDS: HYDROcodone/Acetamin 10/325 tab ORAL PRN ×2 (08:38→17:35)
--- NOTE | 2020-05-23 09:59 | Hematology/Onc Progress Note ---
Assessment/Plan Assessment/Plan # Leukopenia COVID19++++++++++ --> hep and hiv are neg --> wbc 4-->3-->2.9->2->4.6--4.1-->3.6-->4.7-->3.6->4.1-->4.7-->3.8-->3->5 --> Neupogen 300 x1 04/21 --> isolation if anc<500 # Non-Hodgkins Lymphoma is s/p chemotherapy in the past, Dr. Tovar of [facility] --> to return to [facility] for further treatment --> likely for ct/pet as outpatient --> CT Here shows no e/o disease --> imaging has been reviewed thus far --> last treatment was 02/2020, end date of 04/2020 # Anemia likely of chronic disease -- does not appear to have iron deficiency --> transfuse as needed, tibc and ferritin are cw acd --> hgb 7.8-->8.6-->8.5-->8.4->7.6-->10-->9.9->9.6-->8.7-->8-->9.2-->9.1->7.7 --> no hemolysis is noted --> s/p transfusion on admission # Covid 19++ with SIRS (febrile, tachycardic) --> per pulm and id --> CXR with diffuse non-specific inflammatory/infectious process --> s/p Cefepime (04/14 - 04/15) # Hypokalemia # Hypomagnesia # Chronic Back pain # Full Code # Dvt ppx heparin sq Appreciate consultation and reagan Rn Subjective HEENT: Denies: no symptoms, eye pain, blurred vision, tearing, double vision, ear pain, ear discharge, nose pain, nose congestion, throat pain, throat swelling, mouth pain, mouth swelling, other Respiratory: Denies: no symptoms, cough, shortness of breath, SOB with excertion, SOB at rest, sputum, wheezing, other Genitourinary: Denies: no symptoms, burning, discharge, frequency, flank pain, hematuria, incontinence, pain, urgency, other Neurologic/Psychiatric: Denies: no symptoms, anxiety, depressed, emotional problems, headache, numbness, paresthesia, pre-existing deficit, seizure, tingling, tremors, weakness, other Endocrine: Denies: no symptoms, excessive sweating, flushing, intolerance to cold, intolerance to heat, increased hunger, increased thirst, increased urine, unexplained weight gain, unexplained weight loss, other Hematologic/Lymphatic: Denies: no symptoms, anemia, easy bleeding, easy bruising, adenopathy, other Allergies: Coded Allergies: No Known Allergies (Unverified , 04/11/20) Subjective 04/17 is on room air, more comfortable, potential dc to snf 04/18 labs reviewed, no bleeding, meds noted, no night sweats 04/19 sleeping comfortably, no major events, no night sweats 04/20 meds noted, labs reviewed, wbc 2.9, hep and hiv is neg 04/21 labs reviewed, in am, the wbc was 2, to get neupogen x 1 dose now 04/23 labs noted, no bleeding, wbc 4, hgb remains low, but holding off trans 04/24 labs are pending for am, meds reviewed, no bleeding 04/25 meds reviewed, labs noted, no night sweats, reagan rn at bedside, no new events 04/26 labs reviewed, meds noted, no bleeding, wbc 3, hgb 7.6 04/27 reagan rn at bedside, labs are noted, no bleeding, refusing heparin now sq 04/28 labs have been reviewed, is on room air, no bleeding, tachy 04/30 labs pending, no night sweats, meds reviewed, tachy, no night sweats, wants iv iron 05/01 dc planning, meds noted, for labs this am, no new events 05/02 meds reviewed, has been refusing care, continue heparin sq 05/03 labs reviewed, on 2lnc, no bleeding, remains on hep but refusing 05/04 meds ntoed, labs reviewed, no new changes, reagan RN 05/05 meds noted, no bleeding, labs reviewed, no f/c 2: no acute events reported, no resp distress 05/07: no resp distress, vss on RA dc planning continues 05/08 on [facility]co prn, nc, eaton, labs are noted 05/09 meds reviewed, labs pending, on nc, eaton 05/10 nc with eaton, no night sweats, meds have been reviewed 05/11 2lnc, bedbound no new changes, no new events, no bleeding 05/12: no acute events reported. No bleeding. 05/14 no new changes, no bleeding, meds noted, labs reviewed 05/15 labs are noted, no bleeding, meds reviewed, smear reviewed as well 05/16 awake, refusing meds, labs noted, has been refusing labs periodically 05/17 meds noted, no bleeding, no major events, hgb 9.1 05/18 labs reviewed, meds noted, hgb 8.4, no major changes 05/19 meds noted, labs reviewed, no major changes, no bleeding, sacral wound dressings 05/21 meds noted, eaton is in place, no night sweats, dw rn 05/22 labs reviewed, meds noted, for outpatient [facility] care 05/23 nv, meds noted, no bleeding, labs reviewed Objective Objective Current Medications Medications (Trade) Dose Ordered Sig/Angelika Route PRN Reason Start Time Stop Time Status Last Admin Dose Admin Acetaminophen (Tylenol) 650 mg Q6H PRN ORAL Mild Pain (Pain Scale 1-3) 05/10/20 17:30 06/09/20 17:29 05/15/20 09:13 Acetaminophen (Tylenol) 650 mg Q6H PRN ORAL Temp >100.5 05/10/20 18:00 06/09/20 17:59 Acetaminophen/ Hydrocodone Bitart (Ramer 10/325) 1 tab Q6H PRN ORAL Severe Pain (Pain Scale 7-10) 05/16/20 13:33 05/23/20 13:32 05/23/20 08:38 Acetaminophen/ Hydrocodone Bitart (Ramer 5/325) 1 tab Q6H PRN ORAL Moderate Pain (Pain Scale 4-6) 05/16/20 13:33 05/23/20 13:32 05/20/20 06:03 Allopurinol (allopurinoL) 300 mg DAILY ORAL 05/12/20 09:00 06/11/20 08:59 05/23/20 08:37 Ascorbic Acid (Vitamin C) 500 mg DAILY ORAL 04/26/20 09:00 05/26/20 08:59 05/23/20 08:38 Baclofen (Lioresal) 10 mg THREE TIMES A DAY ORAL 05/11/20 13:00 06/10/20 12:59 05/23/20 08:37 Chlorhexidine Gluconate (Christy-Hex 2%) 1 applic Q24H TOPIC 04/25/20 20:00 07/24/20 19:59 05/16/20 20:03 Dronabinol (Marinol) 5 mg BID ORAL 05/01/20 09:00 07/30/20 08:59 05/23/20 08:37 Heparin Sodium (Porcine) (Heparin 5000 units/ml) 5,000 units EVERY 8 HOURS SUBQ 04/24/20 22:00 06/08/20 21:59 05/05/20 05:38 Linaclotide (Linzess) 290 mcg BEFORE BREAKFAST ORAL 04/26/20 06:30 07/25/20 06:29 05/23/20 06:06 Magnesium Oxide (Mag-Ox 400mg) 400 mg THREE TIMES A DAY ORAL 04/30/20 13:00 05/30/20 12:59 05/23/20 08:38 Morphine Sulfate (Morphine Sulfate) 2 mg Q3H PRN IVP Severe Pain (Pain Scale 7-10) 05/16/20 13:33 05/23/20 13:32 05/22/20 19:57 Morphine Sulfate (Morphine Sulfate) 4 mg Q3H PRN IVP SEVERE BREAKTHRU PAIN 05/16/20 13:33 05/23/20 13:32 05/23/20 04:24 Multivitamins (Multivitamins) 1 tab DAILY ORAL 04/26/20 09:00 05/26/20 08:59 05/23/20 08:38 Last 24 Hour Vital Signs Date Time Temp Pulse Resp B/P (MAP) Pulse Ox O2 Delivery O2 Flow Rate FiO2 05/23/20 04:00 97.5 95 18 140/69 (92) 98 05/23/20 00:00 97.9 101 18 110/70 (83) 100 05/22/20 21:00 Room Air 05/22/20 19:46 98.1 92 18 125/87 (100) 99 05/22/20 18:05 102 89/55 (66) 05/22/20 16:45 101 82/51 (61) 102 85/48 (60) 05/22/20 16:00 97.7 100 18 82/48 (59) 99 05/22/20 15:35 99 84/49 (61) 05/22/20 12:00 97.7 103 18 104/69 (81) 96 05/22/20 09:00 Room Air 05/22/20 08:00 97.6 113 18 90/58 (69) 98 05/22/20 04:00 98.4 117 20 125/68 (87) 96 05/22/20 00:00 98.8 109 17 104/65 (78) 93 05/21/20 21:00 Room Air 05/21/20 20:00 99.5 115 18 113/70 (84) 96 05/21/20 16:16 97.8 05/21/20 16:00 98.7 127 18 99/60 (73) 97 05/21/20 12:00 97.8 101 18 104/72 (83) 96 05/21/20 11:10 97.8 Intake and Output 05/22/20 05/23/20 19:00 07:00 Intake Total 800 ml Output Total 1750 ml 1500 ml Balance -1750 ml -700 ml Intake Oral 800 ml Output Urine Total 1750 ml 1500 ml # Bowel Movements 2 2 Labs Test 05/21/20 12:50 05/22/20 05:50 05/23/20 06:22 White Blood Count 6.3 K/UL (4.8-10.8) 6.7 K/UL (4.8-10.8) 6.5 K/UL (4.8-10.8) Red Blood Count 3.03 M/UL (4.20-5.40) 2.90 M/UL (4.20-5.40) 2.76 M/UL (4.20-5.40) Hemoglobin 8.4 G/DL (12.0-16.0) 8.0 G/DL (12.0-16.0) 7.7 G/DL (12.0-16.0) Hematocrit 27.7 % (37.0-47.0) 26.4 % (37.0-47.0) 25.7 % (37.0-47.0) Mean Corpuscular Volume 91 FL (80-99) 91 FL (80-99) 93 FL (80-99) Mean Corpuscular Hemoglobin 27.6 PG (27.0-31.0) 27.7 PG (27.0-31.0) 27.9 PG (27.0-31.0) Mean Corpuscular Hemoglobin Concent 30.3 G/DL (32.0-36.0) 30.5 G/DL (32.0-36.0) 29.9 G/DL (32.0-36.0) Red Cell Distribution Width 21.5 % (11.6-14.8) 21.8 % (11.6-14.8) 22.1 % (11.6-14.8) Platelet Count 430 K/UL (150-450) 407 K/UL (150-450) 373 K/UL (150-450) Mean Platelet Volume 6.1 FL (6.5-10.1) 6.1 FL (6.5-10.1) 5.9 FL (6.5-10.1) Neutrophils (%) (Auto) 73.7 % (45.0-75.0) 79.6 % (45.0-75.0) % (45.0-75.0) Lymphocytes (%) (Auto) 13.2 % (20.0-45.0) 8.7 % (20.0-45.0) % (20.0-45.0) Monocytes (%) (Auto) 4.7 % (1.0-10.0) 5.6 % (1.0-10.0) % (1.0-10.0) Eosinophils (%) (Auto) 6.5 % (0.0-3.0) 4.8 % (0.0-3.0) % (0.0-3.0) Basophils (%) (Auto) 1.9 % (0.0-2.0) 1.3 % (0.0-2.0) % (0.0-2.0) Height (Feet): 5 Height (Inches): 7.00 Weight (Pounds): 150 Objective Gen: nad Pulm: ctab, no cwr CV: rrr Abd: soft, nt Ext: no cce Martinez Hill MD May 23, 2020 09:59
--- NOTE | 2020-05-23 10:25 | Nephrology Progress Note ---
Assessment/Plan Plan #acute kidney injury likely due to vanco toxicity #hypokalemia- #hypomagnesemia #Acute on chronic anemia #h/p non- hodgkins lymphoma #possible sepsis #+ COVID #Femoral intertrochanteric hip fracture. - NS bolus - replete k and mag - Pulmonary eval - prbc transfusion prn - replete lytes - hemo-onc eval - ID eval - monitor CBC - avoid nephrotoxins - ortho eval - spine eval for L3 acute on chronic bone infarct, less likely neoplasm or infection? times spent 65 min Subjective Subjective hypotensive s/p NS bolus hip fracture noted ortho consulted Impression: Minimal distention of the rectum with feces, could represent mild rectal fecal impaction. Equivocal slight thickening of the rectal wall and stranding of the perirectal fat, if real could indicate mild stercoral proctitis Comminuted fracture of the left femoral head, neck, and intertrochanteric region, ununited. Possibly acute, but abundant soft tissues surrounding the fracture area raises possibility that this could be chronic. Correlate with clinical findings Other findings as noted, including evidence of old T12 vertebral body compression fracture and prior vertebral augmentation procedure, Morales catheter, subcentimeter low-attenuation lesions which probably represent renal cysts, small sliding-type hiatal hernia Impression: Unusual signal abnormality of the posterolateral aspect of the L3 vertebral body on the right. This appears to be confined to the vertebral body marrow space. Prior CT scan in retrospect demonstrates sclerotic areas in the same location. Most likely differential consideration is an atypical hemangioma. Other possibilities include acute on chronic bone infarct, less likely neoplasm or infection No other unusual contrast enhancement. No findings to suggest discitis or epidural abscess. Objective Objective Last 24 Hour Vital Signs Date Time Temp Pulse Resp B/P (MAP) Pulse Ox O2 Delivery O2 Flow Rate FiO2 05/23/20 04:00 97.5 95 18 140/69 (92) 98 05/23/20 00:00 97.9 101 18 110/70 (83) 100 05/22/20 21:00 Room Air 05/22/20 19:46 98.1 92 18 125/87 (100) 99 05/22/20 18:05 102 89/55 (66) 05/22/20 16:45 101 82/51 (61) 102 85/48 (60) 05/22/20 16:00 97.7 100 18 82/48 (59) 99 05/22/20 15:35 99 84/49 (61) 05/22/20 12:00 97.7 103 18 104/69 (81) 96 Intake and Output 05/22/20 05/23/20 19:00 07:00 Intake Total 800 ml Output Total 1750 ml 1500 ml Balance -1750 ml -700 ml Intake Oral 800 ml Output Urine Total 1750 ml 1500 ml # Bowel Movements 2 2 Laboratory Tests 05/23/20 06:22: White Blood Count 6.5, Red Blood Count 2.76L, Hemoglobin 7.7L, Hematocrit 25.7L, Mean Corpuscular Volume 93, Mean Corpuscular Hemoglobin 27.9, Mean Corpuscular Hemoglobin Concent 29.9L, Red Cell Distribution Width 22.1H, Platelet Count 373, Mean Platelet Volume 5.9L, Neutrophils (%) (Auto) , Lymphocytes (%) (Auto) , Monocytes (%) (Auto) , Eosinophils (%) (Auto) , Basophils (%) (Auto) , Differential Total Cells Counted 100, Neutrophils % (Manual) 72, Lymphocytes % (Manual) 14L, Monocytes % (Manual) 4, Eosinophils % (Manual) 8H, Basophils % (Manual) 1, Myelocytes % 1H, Band Neutrophils 0, Platelet Estimate Adequate, Platelet Morphology Normal, Hypochromasia 1+, Anisocytosis 3+ Height (Feet): 5 Height (Inches): 7.00 Weight (Pounds): 150 Objective General Appearance: no apparent distress EENT: PERRL/EOMI Neck: non-tender, normal alignment Cardiovascular: normal peripheral pulses, normal rate Respiratory/Chest: chest wall non-tender, lungs clear Abdomen: normal bowel sounds, non tender Neurologic: alert, oriented x 3 Kallie Dykes M.D. May 23, 2020 10:25
--- NOTE | 2020-05-23 10:53 | Cardiac Electrophysiology PN ---
Assessment/Plan Assessment/Plan 1. Sinus tachycardia due to sepsis, anemia and COVID. Resolved 2. S/P COVID pneumonia. Off isolation and on RA 3. Hypokalemia and Hypomagnesemia.Replaced 5. History of non-Hodgkin lymphoma. 6. Leukopenia and anemia. S/P PRBC 7. Left Hip Fx; Likely Chronic Minimal pain in left hip Per Dr. Payan risks > benefits. DW RN Subjective Subjective Off Covid isolation on RA awaiting SNIF placement . No CP or SOB. Objective Last 24 Hour Vital Signs Date Time Temp Pulse Resp B/P (MAP) Pulse Ox O2 Delivery O2 Flow Rate FiO2 05/23/20 08:00 98.1 110 18 114/75 (88) 95 05/23/20 04:00 97.5 95 18 140/69 (92) 98 05/23/20 00:00 97.9 101 18 110/70 (83) 100 05/22/20 21:00 Room Air 05/22/20 19:46 98.1 92 18 125/87 (100) 99 05/22/20 18:05 102 89/55 (66) 05/22/20 16:45 101 82/51 (61) 102 85/48 (60) 05/22/20 16:00 97.7 100 18 82/48 (59) 99 05/22/20 15:35 99 84/49 (61) 05/22/20 12:00 97.7 103 18 104/69 (81) 96 Intake and Output 05/22/20 05/23/20 19:00 07:00 Intake Total 800 ml Output Total 1750 ml 1500 ml Balance -1750 ml -700 ml Intake Oral 800 ml Output Urine Total 1750 ml 1500 ml # Bowel Movements 2 2 Laboratory Tests Test 05/23/20 06:22 White Blood Count 6.5 K/UL (4.8-10.8) Red Blood Count 2.76 M/UL (4.20-5.40) L Hemoglobin 7.7 G/DL (12.0-16.0) L Hematocrit 25.7 % (37.0-47.0) L Mean Corpuscular Volume 93 FL (80-99) Mean Corpuscular Hemoglobin 27.9 PG (27.0-31.0) Mean Corpuscular Hemoglobin Concent 29.9 G/DL (32.0-36.0) L Red Cell Distribution Width 22.1 % (11.6-14.8) H Platelet Count 373 K/UL (150-450) Mean Platelet Volume 5.9 FL (6.5-10.1) L Neutrophils (%) (Auto) % (45.0-75.0) Lymphocytes (%) (Auto) % (20.0-45.0) Monocytes (%) (Auto) % (1.0-10.0) Eosinophils (%) (Auto) % (0.0-3.0) Basophils (%) (Auto) % (0.0-2.0) Differential Total Cells Counted 100 Neutrophils % (Manual) 72 % (45-75) Lymphocytes % (Manual) 14 % (20-45) L Monocytes % (Manual) 4 % (1-10) Eosinophils % (Manual) 8 % (0-3) H Basophils % (Manual) 1 % (0-2) Myelocytes % 1 % (0-0) H Band Neutrophils 0 % (0-8) Platelet Estimate Adequate Platelet Morphology Normal Hypochromasia 1+ Anisocytosis 3+ Objective HEAD AND NECK: No JVD. LUNGS: Coarse rhonchi. CARDIOVASCULAR: Regular S1 and S2 with no gallop or murmur. ABDOMEN: Soft. EXTREMITIES: No pitting edema. Ehsan Wan MD May 23, 2020 10:53
--- NOTE | 2020-05-23 11:44 | NUR ---
*-*DISCHARGE PLANNING*-* PATIENT HAS BEEN REFERRED TO: [facility] P: [phone] S/W ZHENG, CANNOT ACCEPT DUE TO INSURANCE.
[2020-05-23 12:00] VITALS: BP 105/71
--- NOTE | 2020-05-23 12:29 | NUR ---
CASE MANAGEMENT:REVIEW SI;S/P COVID PNEUMONIA. CHRONIC LT HIP FX (NWB) 98.1 110 18 140/69 95% ON RA H/H- 7.7/25.7 IS; MORPHINE SULFATE IV Q3 PRN NORCO PO Q6 ORB BACLOFEN PO TID MARINOL PO VID MAG-OX PO TID VIT C PO QD HEPARIN SQ Q8 VITAMIN C PO QD LINZESS PO QD MED SURG STATUS DCP; PENDING SNF PLACEMENT PATIENT REFERRED TO A NUMBER OF FACILITIES NO ACCEPTING FACILITY TO DATE NCM AT INSURANCE IPA INFORMED OF PLACEMENT BARRIERS
--- NOTE | 2020-05-23 12:52 | Pulmonology Progress Note ---
Subjective ROS Limited/Unobtainable: No Interval Events: None new Constitutional: Reports: fever - Tmax=99.5, fatigue HEENT: Repors: no symptoms Respiratory: Reports: no symptoms, dry cough Cardiovascular: Reports: no symptoms Gastrointestinal/Abdominal: Denies: nausea, vomiting, diarrhea Psychiatric: Denies: depression Skin: Denies: rash Musculoskeletal: Denies: pain Allergies: Coded Allergies: No Known Allergies (Unverified , 04/11/20) All Systems: reviewed and negative except above Objective Last 24 Hour Vital Signs Date Time Temp Pulse Resp B/P (MAP) Pulse Ox O2 Delivery O2 Flow Rate FiO2 05/23/20 12:00 97.8 110 18 105/71 (82) 95 05/23/20 09:00 Room Air 05/23/20 08:00 98.1 110 18 114/75 (88) 95 05/23/20 04:00 97.5 95 18 140/69 (92) 98 05/23/20 00:00 97.9 101 18 110/70 (83) 100 05/22/20 21:00 Room Air 05/22/20 19:46 98.1 92 18 125/87 (100) 99 05/22/20 18:05 102 89/55 (66) 05/22/20 16:45 101 82/51 (61) 102 85/48 (60) 05/22/20 16:00 97.7 100 18 82/48 (59) 99 05/22/20 15:35 99 84/49 (61) Intake and Output 05/22/20 05/23/20 19:00 07:00 Intake Total 800 ml Output Total 1750 ml 1500 ml Balance -1750 ml -700 ml Intake Oral 800 ml Output Urine Total 1750 ml 1500 ml # Bowel Movements 2 2 Objective 05/23 stable 05/22 no change respiratory salomon 05/20 stable on room air 05/19 on and off 2L NC but stable on room air 05/18 stable 05/17 stable 05/16 no change 05/15 stable respiration on room air 05/12 no change respiratory-salomon 05/11 no change 05/10 no change, still on 1-2L NC 05/09 no change, still on 2L NC 05/08 no change respiratory-salomon; stable 05/07 stable saturation 05/06 no change 05/05 no change respiratory-salomon; stable no change 05/03 no change; AM labs unavailable 05/02 on and off 2 L NC; NAD 05/01 no change 04/28 on and off 1 L NC; NAD 04/27 on and off 1 L NC; NAD 04/26 still on 1 L NC; NAD 04/25 no change respiratory-salomon 04/24 no change 04/23 on and off 1 lpm NC 04/22 saturating well on and off 1 lpm NC 04/21 no change 04/20 pt saturating well on 2 lpm NC; NAD 04/19 pt saturating well on 2 lpm NC; NAD 04/18 pt saturating well on 2 lpm NC General Appearance: WD/WN, no acute distress HEENT: normocephalic, atraumatic Respiratory: lungs clear Cardiovascular: normal rate, regular rhythm, tachycardia - intermittent Abdomen: soft, non tender Genitourinary: other - Morales Extremities: no edema Laboratory Tests 05/23/20 06:22: White Blood Count 6.5, Red Blood Count 2.76L, Hemoglobin 7.7L, Hematocrit 25.7L, Mean Corpuscular Volume 93, Mean Corpuscular Hemoglobin 27.9, Mean Corpuscular Hemoglobin Concent 29.9L, Red Cell Distribution Width 22.1H, Platelet Count 373, Mean Platelet Volume 5.9L, Neutrophils (%) (Auto) , Lymphocytes (%) (Auto) , Monocytes (%) (Auto) , Eosinophils (%) (Auto) , Basophils (%) (Auto) , Differential Total Cells Counted 100, Neutrophils % (Manual) 72, Lymphocytes % (Manual) 14L, Monocytes % (Manual) 4, Eosinophils % (Manual) 8H, Basophils % (Manual) 1, Myelocytes % 1H, Band Neutrophils 0, Platelet Estimate Adequate, Platelet Morphology Normal, Hypochromasia 1+, Anisocytosis 3+ Current Medications Medications (Trade) Dose Ordered Sig/Angelika Route PRN Reason Start Time Stop Time Status Last Admin Dose Admin Acetaminophen (Tylenol) 650 mg Q6H PRN ORAL Mild Pain (Pain Scale 1-3) 05/10/20 17:30 06/09/20 17:29 05/15/20 09:13 Acetaminophen (Tylenol) 650 mg Q6H PRN ORAL Temp >100.5 05/10/20 18:00 06/09/20 17:59 Acetaminophen/ Hydrocodone Bitart ([place] 10/325) 1 tab Q6H PRN ORAL Severe Pain (Pain Scale 7-10) 05/23/20 13:33 05/30/20 13:32 Acetaminophen/ Hydrocodone Bitart ([place] 5/325) 1 tab Q6H PRN ORAL Moderate Pain (Pain Scale 4-6) 05/23/20 13:33 05/30/20 13:32 Allopurinol (allopurinoL) 300 mg DAILY ORAL 05/12/20 09:00 06/11/20 08:59 05/23/20 08:37 Ascorbic Acid (Vitamin C) 500 mg DAILY ORAL 04/26/20 09:00 05/26/20 08:59 05/23/20 08:38 Baclofen (Lioresal) 10 mg THREE TIMES A DAY ORAL 05/11/20 13:00 06/10/20 12:59 05/23/20 08:37 Chlorhexidine Gluconate (Christy-Hex 2%) 1 applic Q24H TOPIC 04/25/20 20:00 07/24/20 19:59 05/16/20 20:03 Dronabinol (Marinol) 5 mg BID ORAL 05/01/20 09:00 07/30/20 08:59 05/23/20 08:37 Heparin Sodium (Porcine) (Heparin 5000 units/ml) 5,000 units EVERY 8 HOURS SUBQ 04/24/20 22:00 06/08/20 21:59 05/05/20 05:38 Linaclotide (Linzess) 290 mcg BEFORE BREAKFAST ORAL 04/26/20 06:30 07/25/20 06:29 05/23/20 06:06 Magnesium Oxide (Mag-Ox 400mg) 400 mg THREE TIMES A DAY ORAL 04/30/20 13:00 05/30/20 12:59 05/23/20 08:38 Morphine Sulfate (Morphine Sulfate) 2 mg Q3H PRN IVP Severe Pain (Pain Scale 7-10) 05/23/20 13:33 05/30/20 13:32 Morphine Sulfate (Morphine Sulfate) 4 mg Q3H PRN IVP SEVERE BREAKTHRU PAIN 05/23/20 13:33 05/30/20 13:32 05/23/20 11:43 Multivitamins (Multivitamins) 1 tab DAILY ORAL 04/26/20 09:00 05/26/20 08:59 05/23/20 08:38 Assessment/Plan Assessment/Plan 1. COVID-19 infection - COVID-19 PCR 04/21 positive: now off isolation - no indication for steroid or remdesivir given her normoxemia - s/p cefepime - CXR with diffuse non-specific inflammatory/infectious process - Pt uses low flow oxygen for comfort; stable on room air - CT A/P/C - no obvious pna or abscess, cultures negative 2. Immunocompromised state with history of non-Hodgkin lymphoma. - h/o port line infection; s/p Vanco - to return to [facility] for further Tx 3. Fever; resolved - urine culture showed zee albicans - blood culture showed no growth 4. Hx of Hypertension. 5. Hx of gout. 6. Anemia - s/p pRBC 7. DVT ppx - on SCD 8. Low TSH; improving - Dr. Fermin following - no need for levothyroxine per Dr. Fermin 9. Zee UTI - Urine Cx showed zee albicans - On fluconazole 200mg daily for 5 days (05/04 - 05/09) per ID 10. Hypokalemia - potassium replaced per neprho 11. Hypomagnesemia - Mg replaced per nephro 12. 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
--- NOTE | 2020-05-23 13:22 | General Progress Note ---
Subjective Constitutional: Reports: weakness Allergies: Coded Allergies: No Known Allergies (Unverified , 04/11/20) All Systems: reviewed and negative except above Subjective sleepy calm Objective Last 24 Hour Vital Signs Date Time Temp Pulse Resp B/P (MAP) Pulse Ox O2 Delivery O2 Flow Rate FiO2 05/23/20 12:00 97.8 110 18 105/71 (82) 95 05/23/20 09:00 Room Air 05/23/20 08:00 98.1 110 18 114/75 (88) 95 05/23/20 04:00 97.5 95 18 140/69 (92) 98 05/23/20 00:00 97.9 101 18 110/70 (83) 100 05/22/20 21:00 Room Air 05/22/20 19:46 98.1 92 18 125/87 (100) 99 05/22/20 18:05 102 89/55 (66) 05/22/20 16:45 101 82/51 (61) 102 85/48 (60) 05/22/20 16:00 97.7 100 18 82/48 (59) 99 05/22/20 15:35 99 84/49 (61) Intake and Output 05/22/20 05/23/20 19:00 07:00 Intake Total 800 ml Output Total 1750 ml 1500 ml Balance -1750 ml -700 ml Intake Oral 800 ml Output Urine Total 1750 ml 1500 ml # Bowel Movements 2 2 Laboratory Tests 05/23/20 06:22: White Blood Count 6.5, Red Blood Count 2.76L, Hemoglobin 7.7L, Hematocrit 25.7L, Mean Corpuscular Volume 93, Mean Corpuscular Hemoglobin 27.9, Mean Corpuscular Hemoglobin Concent 29.9L, Red Cell Distribution Width 22.1H, Platelet Count 373, Mean Platelet Volume 5.9L, Neutrophils (%) (Auto) , Lymphocytes (%) (Auto) , Monocytes (%) (Auto) , Eosinophils (%) (Auto) , Basophils (%) (Auto) , Differential Total Cells Counted 100, Neutrophils % (Manual) 72, Lymphocytes % (Manual) 14L, Monocytes % (Manual) 4, Eosinophils % (Manual) 8H, Basophils % (Manual) 1, Myelocytes % 1H, Band Neutrophils 0, Platelet Estimate Adequate, Pl atelet Morphology Normal, Hypochromasia 1+, Anisocytosis 3+ Height (Feet): 5 Height (Inches): 7.00 Weight (Pounds): 150 General Appearance: lethargic EENT: normal ENT inspection Neck: normal alignment Cardiovascular: normal peripheral pulses, normal rate, regular rhythm Respiratory/Chest: chest wall non-tender, lungs clear, normal breath sounds Abdomen: normal bowel sounds, non tender, soft Extremities: normal inspection Edema: no edema noted Arm (L), no edema noted Arm (R), no edema noted Leg (L), no edema noted Leg (R), no edema noted Pedal (L), no edema noted Pedal (R), no edema noted Generalized Neurologic: motor weakness Skin: normal pigmentation, warm/dry Assessment/Plan Problem List: (1) Lymphoma ICD Codes: C85.90 - Non-Hodgkin lymphoma, unspecified, unspecified site SNOMED: 685253647 (2) Hip fracture ICD Codes: S72.009A - Fracture of unspecified part of neck of unspecified femur, initial encounter for closed fracture SNOMED: 801539665 (3) Anemia ICD Codes: D64.9 - Anemia, unspecified SNOMED: 834302410 Qualifiers: Qualified Codes: D64.9 - Anemia, unspecified (4) Abnormal thyroid function test ICD Codes: R94.6 - Abnormal results of thyroid function studies SNOMED: 642342127 (5) JIM (acute kidney injury) ICD Codes: N17.9 - Acute kidney failure, unspecified SNOMED: 1679288, 95139719 (6) COVID-19 ICD Codes: U07.1 - COVID-19 SNOMED: 180734421 Status: stable, progressing Assessment/Plan: o2 pulm tx abx gi heme eval cbc bmp am dc to snf if clear Spencer Lopez DO May 23, 2020 13:22
[2020-05-23] MEDS ORDERED: HYDROcodone/Acetamin 5/325 tab ORAL PRN (13:33)
[2020-05-23 16:00] VITALS: BP 130/86
--- NOTE | 2020-05-23 17:00 | NUR ---
NURSE NOTES: Morales catheter removed and replaced per MD order. Patient tolerated well.
--- NOTE | 2020-05-23 19:10 | NUR ---
NURSE HAND-OFF: Important Events on Shift: Pain management, f/c changed Patient Status: stable Diet: Reg Pending Orders: OB stool, endorsed to shift supervisor, patient did not have BM during my shift Pending Results/Labs: n/a Pending MD notification: n/a Latest Vital Signs: Temperature 97.4 , Pulse 98 , B/P 130 /86 , Respiratory Rate 18 , O2 SAT 94 Vital Sign Comment: VS stable Latest [place] Fall Score: 35 Fall Risk: Medium Risk Safety Measures: Call light Within Reach, Bed Alarm Zone 1, Side Rails Side Rails x2, Bed position Low and Locked. Fall Precautions: Door Sign Patient Fall Education Report given to Obinna LUCIA.
--- NOTE | 2020-05-23 19:19 | NUR ---
NURSE NOTES: received pt and report from REA Bell. pt alert and oriented x 4 with no acute distress and no co pain at the moment which is controlled with pain medications. sacral dressing clean dry and intact. iv site noted clean dry and intact and hep locked. plan of care discussed.
[2020-05-23] MEDS: Morphine Sulfate 2mg/ml Inj(IV/IM USE ONLY) IVP PRN (19:55)
[2020-05-23] MEDS: Dyna-Hex 2% Top Sol 2oz TOPIC SCH (19:55)
[2020-05-23 20:00] VITALS: BP 140/88
--- NOTE | 2020-05-23 20:10 | NUR ---
NURSE NOTES: pt vitals stable at this time. no acute distress noted. co of pain, pain medications given.
--- NOTE | 2020-05-23 22:42 | Neurology Progress Note ---
Interim History Interim History ROS Limited/Unobtainable: No Interim History no new deficits Objective Physical Exam Last Vital Signs Date Time Temp Pulse Resp B/P (MAP) Pulse Ox O2 Delivery O2 Flow Rate FiO2 05/23/20 20:34 Room Air 05/23/20 20:00 98.2 101 18 140/88 (105) 98 05/17/20 19:55 21 Laboratory Tests Test 05/23/20 06:22 White Blood Count 6.5 K/UL (4.8-10.8) Red Blood Count 2.76 M/UL (4.20-5.40) L Hemoglobin 7.7 G/DL (12.0-16.0) L Hematocrit 25.7 % (37.0-47.0) L Mean Corpuscular Volume 93 FL (80-99) Mean Corpuscular Hemoglobin 27.9 PG (27.0-31.0) Mean Corpuscular Hemoglobin Concent 29.9 G/DL (32.0-36.0) L Red Cell Distribution Width 22.1 % (11.6-14.8) H Platelet Count 373 K/UL (150-450) Mean Platelet Volume 5.9 FL (6.5-10.1) L Neutrophils (%) (Auto) % (45.0-75.0) Lymphocytes (%) (Auto) % (20.0-45.0) Monocytes (%) (Auto) % (1.0-10.0) Eosinophils (%) (Auto) % (0.0-3.0) Basophils (%) (Auto) % (0.0-2.0) Differential Total Cells Counted 100 Neutrophils % (Manual) 72 % (45-75) Lymphocytes % (Manual) 14 % (20-45) L Monocytes % (Manual) 4 % (1-10) Eosinophils % (Manual) 8 % (0-3) H Basophils % (Manual) 1 % (0-2) Myelocytes % 1 % (0-0) H Band Neutrophils 0 % (0-8) Platelet Estimate Adequate Platelet Morphology Normal Hypochromasia 1+ Anisocytosis 3+ Impression/Recommendations Problems: (1) Anemia Status: stable, progressing Diagnostic Impression Chronic weakness, LE worse than UEs MRI spine noted, osteoma wo spine compression slplaminectomy COVID 19 pneumonia (febrile, tachycardic) Hx of Lymphoma cont medical support pain control PT as able Renny Bajwa MD May 23, 2020 22:42
[2020-05-24] VITALS (7 sets, daily range): BP systolic 91–118; BP diastolic 56–76
--- NOTE | 2020-05-24 00:20 | NUR ---
NURSE NOTES: pt vitals stable at this time. no acute distress observed. pt no co pain at this moment. will follow up on pain control at a later time.
[2020-05-24] MEDS: Morphine Sulfate 2mg/ml Inj(IV/IM USE ONLY) IVP PRN ×3 (01:47→16:19)
--- NOTE | 2020-05-24 04:15 | NUR ---
NURSE NOTES: pt vital signs stable at this time. pt in no acute distress. co pain, will give prn pain med and follow up
[2020-05-24] MEDS: HYDROcodone/Acetamin 10/325 tab ORAL PRN ×2 (04:53→12:25)
[2020-05-24] MEDS: Heparin 5000 units/ml inj SUBQ SCH ×4 (05:47→22:00)
--- NOTE | 2020-05-24 07:20 | NUR ---
NURSE HAND-OFF: Important Events on Shift:pain management Patient Status: stable Diet: regular Pending Orders: occult blood Pending Results/Labs:NA Pending MD notification:NA Latest Vital Signs: Temperature 98.1 , Pulse 92 , B/P 118 /73 , Respiratory Rate 18 , O2 SAT 97 , Nasal Cannula, O2 Flow Rate 2.0 . Vital Sign Comment: stable through the shift Latest [place] Fall Score: 35 Fall Risk: Medium Risk Safety Measures: Call light Within Reach, Bed Alarm Zone 1, Side Rails Side Rails x2, Bed position Low and Locked. Fall Precautions: Door Sign Patient Fall Education Report given to REA Leon.
[2020-05-24 07:36] LABS: BASOPHILS % (AUTO) 1.6 % (0.0-2.0); EOSINOPHILS % (AUTO) 7.7 % (0.0-3.0); HEMATOCRIT 26.3 % (37.0-47.0); LYMPHOCYTES % (AUTO) 8.5 % (20.0-45.0); MEAN CORPUSCULAR VOLUME 92 FL (80-99); MONOCYTES % (AUTO) 4.8 % (1.0-10.0); NEUTROPHILS % (AUTO) 77.4 % (45.0-75.0); PLATELET COUNT 364 K/UL (150-450); RED BLOOD COUNT 2.86 M/UL (4.20-5.40); RED CELL DISTRIBUTION WIDTH 21.9 % (11.6-14.8); WHITE BLOOD COUNT 5.1 K/UL (4.8-10.8)
--- NOTE | 2020-05-24 07:38 | Hematology/Onc Progress Note ---
Assessment/Plan Assessment/Plan # Non-Hodgkins Lymphoma is s/p chemotherapy in the past, Dr. Tovar of [facility] --> to return to [facility] for further treatment --> likely for ct/pet as outpatient --> CT Here shows no e/o disease --> imaging has been reviewed thus far --> last treatment was 02/2020, end date of 04/2020 # Leukopenia COVID19++++++++++ --> hep and hiv are neg --> wbc 4-->3-->2.9->2->4.6--4.1-->3.6-->4.7-->3.6->4.1-->4.7-->3.8-->3->5 --> Neupogen 300 x1 04/21 --> isolation if anc<500 # Anemia likely of chronic disease -- does not appear to have iron deficiency --> transfuse as needed, tibc and ferritin are cw acd --> hgb 7.8-->8.6-->8.5-->8.4->7.6-->10-->9.9->9.6-->8.7-->8-->9.2-->9.1->7.7-->8 --> no hemolysis is noted --> s/p transfusion on admission # Covid 19++ with SIRS (febrile, tachycardic) --> per pulm and id --> CXR with diffuse non-specific inflammatory/infectious process --> s/p Cefepime (04/14 - 04/15) # Hypokalemia # Hypomagnesia # Chronic Back pain # Full Code # Dvt ppx heparin sq Appreciate consultation and dw Rn Subjective Constitutional: Denies: no symptoms, chills, fever, malaise, weakness, other HEENT: Denies: no symptoms, eye pain, blurred vision, tearing, double vision, ear pain, ear discharge, nose pain, nose congestion, throat pain, throat swelling, mouth pain, mouth swelling, other Cardiovascular: Denies: no symptoms, chest pain, edema, irregular heart rate, lightheadedness, palpitations, syncope, other Respiratory: Denies: no symptoms, cough, shortness of breath, SOB with excertion, SOB at rest, sputum, wheezing, other Gastrointestinal/Abdominal: Denies: no symptoms, abdomen distended, abdominal pain, black stools, tarry stools, blood in stool, constipated, diarrhea, d ifficulty swallowing, nausea, poor appetite, poor fluid intake, rectal bleeding, vomiting, other Genitourinary: Denies: no symptoms, burning, discharge, frequency, flank pain, hematuria, incontinence, pain, urgency, other Neurologic/Psychiatric: Denies: no symptoms, anxiety, depressed, emotional problems, headache, numbness, paresthesia, pre-existing deficit, seizure, tingling, tremors, weakness, other Endocrine: Denies: no symptoms, excessive sweating, flushing, intolerance to cold, intolerance to heat, increased hunger, increased thirst, increased urine, unexplained weight gain, unexplained weight loss, other Allergies: Coded Allergies: No Known Allergies (Unverified , 04/11/20) Subjective 04/17 is on room air, more comfortable, potential dc to snf 04/18 labs reviewed, no bleeding, meds noted, no night sweats 04/19 sleeping comfortably, no major events, no night sweats 04/20 meds noted, labs reviewed, wbc 2.9, hep and hiv is neg 04/21 labs reviewed, in am, the wbc was 2, to get neupogen x 1 dose now 04/23 labs noted, no bleeding, wbc 4, hgb remains low, but holding off trans 04/24 labs are pending for am, meds reviewed, no bleeding 04/25 meds reviewed, labs noted, no night sweats, dw rn at bedside, no new events 04/26 labs reviewed, meds noted, no bleeding, wbc 3, hgb 7.6 04/27 dw rn at bedside, labs are noted, no bleeding, refusing heparin now sq 04/28 labs have been reviewed, is on room air, no bleeding, tachy 04/30 labs pending, no night sweats, meds reviewed, tachy, no night sweats, wants iv iron 05/01 dc planning, meds noted, for labs this am, no new events 05/02 meds reviewed, has been refusing care, continue heparin sq 05/03 labs reviewed, on 2lnc, no bleeding, remains on hep but refusing 05/04 meds ntoed, labs reviewed, no new changes, dw RN 05/05 meds noted, no bleeding, labs reviewed, no f/c 05/06: no acute events reported, no resp distress 05/07: no resp distress, vss on RA dc planning continues 05/08 on [facility] prn, nc, eaton, labs are noted 05/09 meds reviewed, labs pending, on nc, eaton 05/10 nc with eaton, no night sweats, meds have been reviewed 05/11 2lnc, bedbound no new changes, no new events, no bleeding 05/12: no acute events reported. No bleeding. 05/14 no new changes, no bleeding, meds noted, labs reviewed 05/15 labs are noted, no bleeding, meds reviewed, smear reviewed as well 05/16 awake, refusing meds, labs noted, has been refusing labs periodically 05/17 meds noted, no bleeding, no major events, hgb 9.1 05/18 labs reviewed, meds noted, hgb 8.4, no major changes 05/19 meds noted, labs reviewed, no major changes, no bleeding, sacral wound dressings 05/21 meds noted, eaton is in place, no night sweats, reagan rn 05/22 labs reviewed, meds noted, for outpatient [facility] care 05/23 nv, meds noted, no bleeding, labs reviewed 05/24 nv, labs noted, no bleeding, meds noted, wants to be dc soon Objective Objective Current Medications Medications (Trade) Dose Ordered Sig/Angelika Route PRN Reason Start Time Stop Time Status Last Admin Dose Admin Acetaminophen (Tylenol) 650 mg Q6H PRN ORAL Mild Pain (Pain Scale 1-3) 05/10/20 17:30 06/09/20 17:29 05/15/20 09:13 Acetaminophen (Tylenol) 650 mg Q6H PRN ORAL Temp >100.5 05/10/20 18:00 06/09/20 17:59 Acetaminophen/ Hydrocodone Bitart (Franklin 10/325) 1 tab Q6H PRN ORAL Severe Pain (Pain Scale 7-10) 05/23/20 13:33 05/30/20 13:32 05/24/20 04:53 Acetaminophen/ Hydrocodone Bitart (Franklin 5/325) 1 tab Q6H PRN ORAL Moderate Pain (Pain Scale 4-6) 05/23/20 13:33 05/30/20 13:32 Allopurinol (allopurinoL) 300 mg DAILY ORAL 05/12/20 09:00 06/11/20 08:59 05/23/20 08:37 Ascorbic Acid (Vitamin C) 500 mg DAILY ORAL 04/26/20 09:00 05/26/20 08:59 05/23/20 08:38 Baclofen (Lioresal) 10 mg THREE TIMES A DAY ORAL 05/11/20 13:00 06/10/20 12:59 05/23/20 12:50 Chlorhexidine Gluconate (Christy-Hex 2%) 1 applic Q24H TOPIC 04/25/20 20:00 07/24/20 19:59 05/16/20 20:03 Dronabinol (Marinol) 5 mg BID ORAL 05/01/20 09:00 07/30/20 08:59 05/23/20 17:34 Heparin Sodium (Porcine) (Heparin 5000 units/ml) 5,000 units EVERY 8 HOURS SUBQ 04/24/20 22:00 06/08/20 21:59 05/05/20 05:38 Linaclotide (Linzess) 290 mcg BEFORE BREAKFAST ORAL 04/26/20 06:30 07/25/20 06:29 05/24/20 05:47 Magnesium Oxide (Mag-Ox 400mg) 400 mg THREE TIMES A DAY ORAL 04/30/20 13:00 05/30/20 12:59 05/23/20 17:34 Morphine Sulfate (Morphine Sulfate) 2 mg Q3H PRN IVP Severe Pain (Pain Scale 7-10) 05/23/20 13:33 05/30/20 13:32 05/24/20 01:47 Morphine Sulfate (Morphine Sulfate) 4 mg Q3H PRN IVP SEVERE BREAKTHRU PAIN 05/23/20 13:33 05/30/20 13:32 05/23/20 11:43 Multivitamins (Multivitamins) 1 tab DAILY ORAL 04/26/20 09:00 05/26/20 08:59 05/23/20 08:38 Last 24 Hour Vital Signs Date Time Temp Pulse Resp B/P (MAP) Pulse Ox O2 Delivery O2 Flow Rate FiO2 05/24/20 05:03 98.1 92 18 118/73 (88) 97 05/24/20 04:00 98.1 92 18 118/73 (88) 97 05/24/20 00:00 98.3 95 18 108/72 (84) 96 05/23/20 20:34 Room Air 05/23/20 20:00 98.2 101 18 140/88 (105) 98 05/23/20 16:00 97.4 98 18 130/86 (101) 94 05/23/20 12:00 97.8 110 18 105/71 (82) 95 05/23/20 09:00 Room Air 05/23/20 08:00 98.1 110 18 114/75 (88) 95 05/23/20 04:00 97.5 95 18 140/69 (92) 98 05/23/20 00:00 97.9 101 18 110/70 (83) 100 05/22/20 21:00 Room Air 05/22/20 19:46 98.1 92 18 125/87 (100) 99 05/22/20 18:05 102 89/55 (66) 05/22/20 16:45 101 82/51 (61) 102 85/48 (60) 05/22/20 16:00 97.7 100 18 82/48 (59) 99 05/22/20 15:35 99 84/49 (61) 05/22/20 12:00 97.7 103 18 104/69 (81) 96 05/22/20 09:00 Room Air 05/22/20 08:00 97.6 113 18 90/58 (69) 98 Intake and Output 05/23/20 05/24/20 19:00 07:00 Intake Total 720 ml 1250 ml Output Total 1800 ml 1500 ml Balance -1080 ml -250 ml Intake Oral 720 ml 1250 ml Output Urine Total 1800 ml 1500 ml Labs Test 05/21/20 12:50 05/22/20 05:50 05/23/20 06:22 05/24/20 06:16 White Blood Count 6.3 K/UL (4.8-10.8) 6.7 K/UL (4.8-10.8) 6.5 K/UL (4.8-10.8) 5.1 K/UL (4.8-10.8) Red Blood Count 3.03 M/UL (4.20-5.40) 2.90 M/UL (4.20-5.40) 2.76 M/UL (4.20-5.40) 2.86 M/UL (4.20-5.40) Hemoglobin 8.4 G/DL (12.0-16.0) 8.0 G/DL (12.0-16.0) 7.7 G/DL (12.0-16.0) 8.0 G/DL (12.0-16.0) Hematocrit 27.7 % (37.0-47.0) 26.4 % (37.0-47.0) 25.7 % (37.0-47.0) 26.3 % (37.0-47.0) Mean Corpuscular Volume 91 FL (80-99) 91 FL (80-99) 93 FL (80-99) 92 FL (80- 99) Mean Corpuscular Hemoglobin 27.6 PG (27.0-31.0) 27.7 PG (27.0-31.0) 27.9 PG (27.0-31.0) 28.0 PG (27.0-31.0) Mean Corpuscular Hemoglobin Concent 30.3 G/DL (32.0-36.0) 30.5 G/DL (32.0-36.0) 29.9 G/DL (32.0-36.0) 30.6 G/DL (32.0-36.0) Red Cell Distribution Width 21.5 % (11.6-14.8) 21.8 % (11.6-14.8) 22.1 % (11.6-14.8) 21.9 % (11.6-14.8) Platelet Count 430 K/UL (150-450) 407 K/UL (150-450) 373 K/UL (150-450) 364 K/UL (150-450) Mean Platelet Volume 6.1 FL (6.5-10.1) 6.1 FL (6.5-10.1) 5.9 FL (6.5-10.1) 6.4 FL (6.5-10.1) Neutrophils (%) (Auto) 73.7 % (45.0-75.0) 79.6 % (45.0-75.0) % (45.0-75.0) 77.4 % (45.0-75.0) Lymphocytes (%) (Auto) 13.2 % (20.0-45.0) 8.7 % (20.0-45.0) % (20.0-45.0) 8.5 % (20.0-45.0) Monocytes (%) (Auto) 4.7 % (1.0-10.0) 5.6 % (1.0-10.0) % (1.0-10.0) 4.8 % (1.0-10.0) Eosinophils (%) (Auto) 6.5 % (0.0-3.0) 4.8 % (0.0-3.0) % (0.0-3.0) 7.7 % (0.0-3.0) Basophils (%) (Auto) 1.9 % (0.0-2.0) 1.3 % (0.0-2.0) % (0.0-2.0) 1.6 % (0.0-2.0) Differential Total Cells Counted 100 Neutrophils % (Manual) 72 % (45-75) Lymphocytes % (Manual) 14 % (20-45) Monocytes % (Manual) 4 % (1-10) Eosinophils % (Manual) 8 % (0-3) Basophils % (Manual) 1 % (0-2) Myelocytes % 1 % (0-0) Band Neutrophils 0 % (0-8) Platelet Estimate Adequate Platelet Morphology Normal Hypochromasia 1+ Anisocytosis 3+ Height (Feet): 5 Height (Inches): 7.00 Weight (Pounds): 150 Objective Gen: nad Pulm: ctab, no cwr CV: rrr Abd: soft, nt Ext: no cce Martinez Hill MD May 24, 2020 07:38
[2020-05-24 07:47] LABS: ANION GAP 7 mmol/L (5-15); BLOOD UREA NITROGEN 5 mg/dL (7-18); CARBON DIOXIDE 29 MMOL/L (21-32); CHLORIDE 105 MMOL/L (98-107); CREATININE 0.4 MG/DL (0.55-1.30); POTASSIUM 3.6 MMOL/L (3.5-5.1); SODIUM 141 MMOL/L (136-145)
[2020-05-24 07:51] LABS: PHOSPHORUS 4.6 MG/DL (2.5-4.9)
--- NOTE | 2020-05-24 08:00 | NUR ---
NURSE NOTES: RN received report from [place]. Patient received the patient in bed in semi hearn position AAOX4, no s/s or respiratory distress on room air or pain. IV patent, dry, intact, flushed and asymptomatic. Bed in lowest position and locked. Bed in lowest position and locked. Call light within reach. Will continue to monitor.
--- NOTE | 2020-05-24 09:09 | General Progress Note ---
Subjective Constitutional: Reports: weakness Allergies: Coded Allergies: No Known Allergies (Unverified , 04/11/20) All Systems: reviewed and negative except above Subjective sleepy calm Objective Last 24 Hour Vital Signs Date Time Temp Pulse Resp B/P (MAP) Pulse Ox O2 Delivery O2 Flow Rate FiO2 05/24/20 08:00 97.4 104 18 91/56 (68) 97 05/24/20 05:03 98.1 92 18 118/73 (88) 97 05/24/20 04:00 98.1 92 18 118/73 (88) 97 05/24/20 00:00 98.3 95 18 108/72 (84) 96 05/23/20 20:34 Room Air 05/23/20 20:00 98.2 101 18 140/88 (105) 98 05/23/20 16:00 97.4 98 18 130/86 (101) 94 05/23/20 12:00 97.8 110 18 105/71 (82) 95 Intake and Output 05/23/20 05/24/20 19:00 07:00 Intake Total 720 ml 1250 ml Output Total 1800 ml 1500 ml Balance -1080 ml -250 ml Intake Oral 720 ml 1250 ml Output Urine Total 1800 ml 1500 ml Laboratory Tests 05/24/20 06:16: White Blood Count 5.1, Red Blood Count 2.86L, Hemoglobin 8.0L, Hematocrit 26.3L, Mean Corpuscular Volume 92, Mean Corpuscular Hemoglobin 28.0, Mean Corpuscular Hemoglobin Concent 30.6L, Red Cell Distribution Width 21.9H, Platelet Count 364, Mean Platelet Volume 6.4L, Neutrophils (%) (Auto) 77.4H, Lymphocytes (%) (Auto) 8.5L, Monocytes (%) (Auto) 4.8, Eosinophils (%) (Auto) 7.7H, Basophils (%) (Auto) 1.6, Sodium Level 141, Potassium Level 3.6, Chloride Level 105, Carbon Dioxide Level 29, Anion Gap 7, Blood Urea Nitrogen 5L, Creatinine 0.4L, Estimat Glomerular Filtration Rate > 60, Glucose Level 91, Calcium Level 10.0, Phosphorus Level 4.6, Magnesium Level 2.2 Height (Feet): 5 Height (Inches): 7.00 Weight (Pounds): 150 General Appearance: lethargic EENT: normal ENT inspection Neck: normal alignment Cardiovascular: normal peripheral pulses, normal rate, regular rhythm Respiratory/Chest: chest wall non-tender, lungs clear, normal breath sounds Abdomen: normal bowel sounds, non tender, soft Extremities: normal inspection Edema: no edema noted Arm (L), no edema noted Arm (R), no edema noted Leg (L), no edema noted Leg (R), no edema noted Pedal (L), no edema noted Pedal (R), no edema noted Generalized Neurologic: motor weakness Skin: normal pigmentation, warm/dry Assessment/Plan Problem List: (1) Lymphoma ICD Codes: C85.90 - Non-Hodgkin lymphoma, unspecified, unspecified site SNOMED: 811016177 (2) Hip fracture ICD Codes: S72.009A - Fracture of unspecified part of neck of unspecified femur, initial encounter for closed fracture SNOMED: 666452014 (3) Anemia ICD Codes: D64.9 - Anemia, unspecified SNOMED: 496122714 Qualifiers: Qualified Codes: D64.9 - Anemia, unspecified (4) Abnormal thyroid function test ICD Codes: R94.6 - Abnormal results of thyroid function studies SNOMED: 145426875 (5) JIM (acute kidney injury) ICD Codes: N17.9 - Acute kidney failure, unspecified SNOMED: 0397433, 05515669 (6) COVID-19 ICD Codes: U07.1 - COVID-19 SNOMED: 598287961 Status: stable, progressing Assessment/Plan: o2 pulm tx abx gi heme eval cbc bmp am dc to snf if clear Spencer Lopez DO May 24, 2020 09:09
--- NOTE | 2020-05-24 09:25 | General Progress Note ---
Subjective ROS Limited/Unobtainable: No Allergies: Coded Allergies: No Known Allergies (Unverified , 04/11/20) Objective Last 24 Hour Vital Signs Date Time Temp Pulse Resp B/P (MAP) Pulse Ox O2 Delivery O2 Flow Rate FiO2 05/24/20 08:00 97.4 104 18 91/56 (68) 97 05/24/20 05:03 98.1 92 18 118/73 (88) 97 05/24/20 04:00 98.1 92 18 118/73 (88) 97 05/24/20 00:00 98.3 95 18 108/72 (84) 96 05/23/20 20:34 Room Air 05/23/20 20:00 98.2 101 18 140/88 (105) 98 05/23/20 16:00 97.4 98 18 130/86 (101) 94 05/23/20 12:00 97.8 110 18 105/71 (82) 95 Intake and Output 05/23/20 05/24/20 19:00 07:00 Intake Total 720 ml 1250 ml Output Total 1800 ml 1500 ml Balance -1080 ml -250 ml Intake Oral 720 ml 1250 ml Output Urine Total 1800 ml 1500 ml Laboratory Tests 05/24/20 06:16: White Blood Count 5.1, Red Blood Count 2.86L, Hemoglobin 8.0L, Hematocrit 26.3L, Mean Corpuscular Volume 92, Mean Corpuscular Hemoglobin 28.0, Mean Corpuscular Hemoglobin Concent 30.6L, Red Cell Distribution Width 21.9H, Platelet Count 364, Mean Platelet Volume 6.4L, Neutrophils (%) (Auto) 77.4H, Lymphocytes (%) (Auto) 8.5L, Monocytes (%) (Auto) 4.8, Eosinophils (%) (Auto) 7.7H, Basophils (%) (Auto) 1.6, Sodium Level 141, Potassium Level 3.6, Chloride Level 105, Carbon Dioxide Level 29, Anion Gap 7, Blood Urea Nitrogen 5L, Creatinine 0.4L, Estimat Glomerular Filtration Rate > 60, Glucose Level 91, Calcium Level 10.0, Phosphorus Level 4.6, Magnesium Level 2.2 Height (Feet): 5 Height (Inches): 7.00 Weight (Pounds): 150 General Appearance: no apparent distress EENT: normal ENT inspection Neck: supple Cardiovascular: normal rate Respiratory/Chest: decreased breath sounds Abdomen: hypoactive bowel sounds Extremities: non-tender Assessment/Plan Status: stable, progressing Assessment/Plan: iron def anemia mild elevated CEA lymphoma on chemo covid positive>>> now off isolation neg stool ob in 12 iv iron, completed fu H&H needs out patient fu for colonoscopy fu oncology CT reviewed colace miralax lactulose linzess marinol no active GIB repeat cbc and stool ob Patrick Carter MD May 24, 2020 09:25
--- NOTE | 2020-05-24 09:37 | Nephrology Progress Note ---
Assessment/Plan Plan #acute kidney injury likely due to vanco toxicity #hypokalemia- #hypomagnesemia #Acute on chronic anemia #h/p non- hodgkins lymphoma #possible sepsis #+ COVID #Femoral intertrochanteric hip fracture. - NS bolus - replete k and mag - Pulmonary eval - prbc transfusion prn - replete lytes - hemo-onc eval - ID eval - monitor CBC - avoid nephrotoxins - ortho eval - spine eval for L3 acute on chronic bone infarct, less likely neoplasm or infection? times spent 65 min Subjective Subjective hypotensive s/p NS bolus hip fracture noted ortho consulted Impression: Minimal distention of the rectum with feces, could represent mild rectal fecal impaction. Equivocal slight thickening of the rectal wall and stranding of the perirectal fat, if real could indicate mild stercoral proctitis Comminuted fracture of the left femoral head, neck, and intertrochanteric region, ununited. Possibly acute, but abundant soft tissues surrounding the fracture area raises possibility that this could be chronic. Correlate with clinical findings Other findings as noted, including evidence of old T12 vertebral body compression fracture and prior vertebral augmentation procedure, Morales catheter, subcentimeter low-attenuation lesions which probably represent renal cysts, small sliding-type hiatal hernia Impression: Unusual signal abnormality of the posterolateral aspect of the L3 vertebral body on the right. This appears to be confined to the vertebral body marrow space. Prior CT scan in retrospect demonstrates sclerotic areas in the same location. Most likely differential consideration is an atypical hemangioma. Other possibilities include acute on chronic bone infarct, less likely neoplasm or infection No other unusual contrast enhancement. No findings to suggest discitis or epidural abscess. Objective Objective Last 24 Hour Vital Signs Date Time Temp Pulse Resp B/P (MAP) Pulse Ox O2 Delivery O2 Flow Rate FiO2 05/24/20 08:00 97.4 104 18 91/56 (68) 97 05/24/20 05:03 98.1 92 18 118/73 (88) 97 05/24/20 04:00 98.1 92 18 118/73 (88) 97 05/24/20 00:00 98.3 95 18 108/72 (84) 96 05/23/20 20:34 Room Air 05/23/20 20:00 98.2 101 18 140/88 (105) 98 05/23/20 16:00 97.4 98 18 130/86 (101) 94 05/23/20 12:00 97.8 110 18 105/71 (82) 95 Intake and Output 05/23/20 05/24/20 19:00 07:00 Intake Total 720 ml 1250 ml Output Total 1800 ml 1500 ml Balance -1080 ml -250 ml Intake Oral 720 ml 1250 ml Output Urine Total 1800 ml 1500 ml Laboratory Tests 05/24/20 06:16: White Blood Count 5.1, Red Blood Count 2.86L, Hemoglobin 8.0L, Hematocrit 26.3L, Mean Corpuscular Volume 92, Mean Corpuscular Hemoglobin 28.0, Mean Corpuscular Hemoglobin Concent 30.6L, Red Cell Distribution Width 21.9H, Platelet Count 364, Mean Platelet Volume 6.4L, Neutrophils (%) (Auto) 77.4H, Lymphocytes (%) (Auto) 8.5L, Monocytes (%) (Auto) 4.8, Eosinophils (%) (Auto) 7.7H, Basophils (%) (Auto) 1.6, Sodium Level 141, Potassium Level 3.6, Chloride Level 105, Carbon Dioxide Level 29, Anion Gap 7, Blood Urea Nitrogen 5L, Creatinine 0.4L, Estimat Glomerular Filtration Rate > 60, Glucose Level 91, Calcium Level 10.0, Phosphorus Level 4.6, Magnesium Level 2.2 Height (Feet): 5 Height (Inches): 7.00 Weight (Pounds): 150 Objective General Appearance: no apparent distress EENT: PERRL/EOMI Neck: non-tender, normal alignment Cardiovascular: normal peripheral pulses, normal rate Respiratory/Chest: chest wall non-tender, lungs clear Abdomen: normal bowel sounds, non tender Neurologic: alert, oriented x 3 Kallie Dykes M.D. May 24, 2020 09:37
[2020-05-24] MEDS: Ascorbic Acid 500mg tab ORAL SCH (10:13)
[2020-05-24] MEDS: Dronabinol 2.5mg Cap ORAL SCH ×2 (10:13→18:54)
[2020-05-24] MEDS: Magnesium Oxide 400mg tab ORAL SCH ×3 (10:13→18:56)
--- NOTE | 2020-05-24 10:51 | NUR ---
RD ASSESSMENT & RECOMMENDATIONS SEE CARE ACTIVITY FOR COMPLETE ASSESSMENT DAILY ESTIMATED NEEDS: Needs based on Wound/ 55kg abw 25-35 kcals/kg 7101-8363 total kcals 1.25-1.5 g protein/kg 69-83 g total protein 25-30 mL/kg 7070-0448 total fluid mLs NUTRITION DIAGNOSIS: Increased kcal/prot/micronutrients needs R/T wound healing as evidenced by pt admitted w/ sacral wound, stage 2 per documentation. CURRENT DIET:REGULAR PO DIET RECOMMENDATIONS: Maintain Regular diet/ texture as tolerated ADDITIONAL RECOMMENDATIONS: * Calibrated bedscale wt * Wound healing: Continue Vit C + MVI LELO BID * Maintain Ensure Enlive qdaily + snacks as tolerated * Monitor lytes, replete as needed * Accuchecks for close BG monitoring (no further hypgolycemic episodes) .
--- NOTE | 2020-05-24 11:45 | NUR ---
CASE MANAGEMENT:REVIEW SI;S/P COVID PNEUMONIA. CHRONIC LT HIP FX (NWB) 98.3 104 18 91/56 96% ON RA H/H- 8.0/26.3 IS;MORPHINE SULFATE IV Q3 PRN NORCO PO Q6 PRN ALLOPURINOL PO QD BACLOFEN PO TID MARINOL PO BID MAG-OX PO TID LINZESS PO QD HEPARIN SQ Q8 MED SURG STATUS DCP;SNF PLACEMENT NO ACCEPTING SNF TO DATE IPA NCM AWARE OF DIFFICULT PLACEMENT BARRIERS
--- NOTE | 2020-05-24 13:39 | Pulmonology Progress Note ---
Subjective ROS Limited/Unobtainable: No Interval Events: None new Constitutional: Reports: fever - Tmax=99.5, fatigue HEENT: Repors: no symptoms Respiratory: Reports: no symptoms, dry cough Cardiovascular: Reports: no symptoms Gastrointestinal/Abdominal: Denies: nausea, vomiting, diarrhea Psychiatric: Denies: depression Skin: Denies: rash Musculoskeletal: Denies: pain Allergies: Coded Allergies: No Known Allergies (Unverified , 04/11/20) All Systems: reviewed and negative except above Objective Last 24 Hour Vital Signs Date Time Temp Pulse Resp B/P (MAP) Pulse Ox O2 Delivery O2 Flow Rate FiO2 05/24/20 10:44 97.4 05/24/20 08:00 97.4 104 18 91/56 (68) 97 05/24/20 05:03 98.1 92 18 118/73 (88) 97 05/24/20 04:00 98.1 92 18 118/73 (88) 97 05/24/20 00:00 98.3 95 18 108/72 (84) 96 05/23/20 20:34 Room Air 05/23/20 20:00 98.2 101 18 140/88 (105) 98 05/23/20 16:00 97.4 98 18 130/86 (101) 94 Intake and Output 05/23/20 05/24/20 19:00 07:00 Intake Total 720 ml 1250 ml Output Total 1800 ml 1500 ml Balance -1080 ml -250 ml Intake Oral 720 ml 1250 ml Output Urine Total 1800 ml 1500 ml Objective 05/24 stable respiration 05/23 stable 05/22 no change respiratory salomon 05/20 stable on room air 05/19 on and off 2L NC but stable on room air 05/18 stable 05/17 stable 05/16 no change 05/15 stable respiration on room air 05/12 no change respiratory-salomon 05/11 no change 05/10 no change, still on 1-2L NC 05/09 no change, still on 2L NC 05/08 no change respiratory-salomon; stable 05/07 stable saturation 05/06 no change 05/05 no change respiratory-salomon; stable no change 05/03 no change; AM labs unavailable 05/02 on and off 2 L NC; NAD 05/01 no change 04/28 on and off 1 L NC; NAD 04/27 on and off 1 L NC; NAD 04/26 still on 1 L NC; NAD 04/25 no change respiratory-salomon 04/24 no change 04/23 on and off 1 lpm NC 04/22 saturating well on and off 1 lpm NC 04/21 no change 04/20 pt saturating well on 2 lpm NC; NAD 04/19 pt saturating well on 2 lpm NC; NAD 04/18 pt saturating well on 2 lpm NC General Appearance: WD/WN, no acute distress HEENT: normocephalic, atraumatic Respiratory: lungs clear Cardiovascular: normal rate, regular rhythm, tachycardia - intermittent Abdomen: soft, non tender Genitourinary: other - Morales Extremities: no edema Laboratory Tests 05/24/20 06:16: White Blood Count 5.1, Red Blood Count 2.86L, Hemoglobin 8.0L, Hematocrit 26.3L, Mean Corpuscular Volume 92, Mean Corpuscular Hemoglobin 28.0, Mean Corpuscular Hemoglobin Concent 30.6L, Red Cell Distribution Width 21.9H, Platelet Count 364, Mean Platelet Volume 6.4L, Neutrophils (%) (Auto) 77.4H, Lymphocytes (%) (Auto) 8.5L, Monocytes (%) (Auto) 4.8, Eosinophils (%) (Auto) 7.7H, Basophils (%) (Auto) 1.6, Sodium Level 141, Potassium Level 3.6, Chloride Level 105, Carbon D ioxide Level 29, Anion Gap 7, Blood Urea Nitrogen 5L, Creatinine 0.4L, Estimat Glomerular Filtration Rate > 60, Glucose Level 91, Calcium Level 10.0, Phosphorus Level 4.6, Magnesium Level 2.2 Current Medications Medications (Trade) Dose Ordered Sig/Angelika Route PRN Reason Start Time Stop Time Status Last Admin Dose Admin Acetaminophen (Tylenol) 650 mg Q6H PRN ORAL Mild Pain (Pain Scale 1-3) 05/10/20 17:30 06/09/20 17:29 05/15/20 09:13 Acetaminophen (Tylenol) 650 mg Q6H PRN ORAL Temp >100.5 05/10/20 18:00 06/09/20 17:59 Acetaminophen/ Hydrocodone Bitart ([place] 10/325) 1 tab Q6H PRN ORAL Severe Pain (Pain Scale 7-10) 05/23/20 13:33 05/30/20 13:32 05/24/20 12:25 Acetaminophen/ Hydrocodone Bitart ([place] 5/325) 1 tab Q6H PRN ORAL Moderate Pain (Pain Scale 4-6) 05/23/20 13:33 05/30/20 13:32 Allopurinol (allopurinoL) 300 mg DAILY ORAL 05/12/20 09:00 06/11/20 08:59 05/24/20 10:12 Ascorbic Acid (Vitamin C) 500 mg DAILY ORAL 04/26/20 09:00 05/26/20 08:59 05/24/20 10:13 Baclofen (Lioresal) 10 mg THREE TIMES A DAY ORAL 05/11/20 13:00 06/10/20 12:59 05/24/20 10:20 Chlorhexidine Gluconate (Christy-Hex 2%) 1 applic Q24H TOPIC 04/25/20 20:00 07/24/20 19:59 05/16/20 20:03 Dronabinol (Marinol) 5 mg BID ORAL 05/01/20 09:00 07/30/20 08:59 05/24/20 10:13 Heparin Sodium (Porcine) (Heparin 5000 units/ml) 5,000 units EVERY 8 HOURS SUBQ 04/24/20 22:00 06/08/20 21:59 05/05/20 05:38 Linaclotide (Linzess) 290 mcg BEFORE BREAKFAST ORAL 04/26/20 06:30 07/25/20 06:29 05/24/20 05:47 Magnesium Oxide (Mag-Ox 400mg) 400 mg THREE TIMES A DAY ORAL 04/30/20 13:00 05/30/20 12:59 05/24/20 10:13 Morphine Sulfate (Morphine Sulfate) 2 mg Q3H PRN IVP Severe Pain (Pain Scale 7-10) 05/23/20 13:33 05/30/20 13:32 05/24/20 10:14 Morphine Sulfate (Morphine Sulfate) 4 mg Q3H PRN IVP SEVERE BREAKTHRU PAIN 05/23/20 13:33 05/30/20 13:32 05/23/20 11:43 Multivitamins (Multivitamins) 1 tab DAILY ORAL 04/26/20 09:00 05/26/20 08:59 05/24/20 10:12 Assessment/Plan Assessment/Plan 1. COVID-19 infection - COVID-19 PCR 04/21 positive: now off isolation - no indication for steroid or remdesivir given her normoxemia - s/p cefepime - CXR with diffuse non-specific inflammatory/infectious process - Pt uses low flow oxygen for comfort; stable on room air - CT A/P/C - no obvious pna or abscess, cultures negative 2. Immunocompromised state with history of non-Hodgkin lymphoma. - h/o port line infection; s/p Vanco - to return to [facility] for further Tx 3. Fever; resolved - urine culture showed zee albicans - blood culture showed no growth 4. Hx of Hypertension. 5. Hx of gout. 6. Anemia - s/p pRBC 7. DVT ppx - on SCD 8. Low TSH; improving - Dr. Fermin following - no need for levothyroxine per Dr. Fermin 9. Zee UTI - Urine Cx showed zee albicans - On fluconazole 200mg daily for 5 days (05/04 - 05/09) per ID 10. Hypokalemia - potassium replaced per neprho 11. Hypomagnesemia - Mg replaced per nephro 12. 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
--- NOTE | 2020-05-24 14:00 | NUR ---
NURSE NOTES: Patient refused heparin despite explanations of benefits vs risks explained X3. Will continue to monitor.
--- NOTE | 2020-05-24 15:06 | Cardiac Electrophysiology PN ---
Assessment/Plan Assessment/Plan 1. Sinus tachycardia due to sepsis, anemia and COVID. Resolved 2. S/P COVID pneumonia. Off isolation and on RA 3. Hypokalemia and Hypomagnesemia.Replaced 5. History of non-Hodgkin lymphoma. 6. Leukopenia and anemia. S/P PRBC 7. Left Hip Fx; Likely Chronic Minimal pain in left hip Per Dr. Payan risks > benefits. Placement pending Subjective Subjective Off Covid isolation on RA awaiting SNIF placement . No CP or SOB. Objective Last 24 Hour Vital Signs Date Time Temp Pulse Resp B/P (MAP) Pulse Ox O2 Delivery O2 Flow Rate FiO2 05/24/20 12:55 97.4 05/24/20 12:00 97.6 83 19 98/64 (75) 97 05/24/20 10:44 97.4 05/24/20 09:00 Room Air 05/24/20 08:00 97.4 104 18 91/56 (68) 97 05/24/20 05:03 98.1 92 18 118/73 (88) 97 05/24/20 04:00 98.1 92 18 118/73 (88) 97 05/24/20 00:00 98.3 95 18 108/72 (84) 96 05/23/20 20:34 Room Air 05/23/20 20:00 98.2 101 18 140/88 (105) 98 05/23/20 16:00 97.4 98 18 130/86 (101) 94 Intake and Output 05/23/20 05/24/20 19:00 07:00 Intake Total 720 ml 1250 ml Output Total 1800 ml 1500 ml Balance -1080 ml -250 ml Intake Oral 720 ml 1250 ml Output Urine Total 1800 ml 1500 ml Laboratory Tests Test 05/24/20 06:16 White Blood Count 5.1 K/UL (4.8-10.8) Red Blood Count 2.86 M/UL (4.20-5.40) L Hemoglobin 8.0 G/DL (12.0-16.0) L Hematocrit 26.3 % (37.0-47.0) L Mean Corpuscular Volume 92 FL (80-99) Mean Corpuscular Hemoglobin 28.0 PG (27.0-31.0) Mean Corpuscular Hemoglobin Concent 30.6 G/DL (32.0-36.0) L Red Cell Distribution Width 21.9 % (11.6-14.8) H Platelet Count 364 K/UL (150-450) Mean Platelet Volume 6.4 FL (6.5-10.1) L Neutrophils (%) (Auto) 77.4 % (45.0-75.0) H Lymphocytes (%) (Auto) 8.5 % (20.0-45.0) L Monocytes (%) (Auto) 4.8 % (1.0-10.0) Eosinophils (%) (Auto) 7.7 % (0.0-3.0) H Basophils (%) (Auto) 1.6 % (0.0-2.0) Sodium Level 141 MMOL/L (136-145) Potassium Level 3.6 MMOL/L (3.5-5.1) Chloride Level 105 MMOL/L (98-107) Carbon Dioxide Level 29 MMOL/L (21-32) Anion Gap 7 mmol/L (5-15) Blood Urea Nitrogen 5 mg/dL (7-18) L Creatinine 0.4 MG/DL (0.55-1.30) L Estimat Glomerular Filtration Rate > 60 mL/min (>60) Glucose Level 91 MG/DL (74-106) Calcium Level 10.0 MG/DL (8.5-10.1) Phosphorus Level 4.6 MG/DL (2.5-4.9) Magnesium Level 2.2 MG/DL (1.8-2.4) Objective HEAD AND NECK: No JVD. LUNGS: Coarse rhonchi. CARDIOVASCULAR: Regular S1 and S2 with no gallop or murmur. ABDOMEN: Soft. EXTREMITIES: No pitting edema. Ehsan Wan MD May 24, 2020 15:06
[2020-05-24] MEDS: Dyna-Hex 2% Top Sol 2oz TOPIC SCH (19:21)
--- NOTE | 2020-05-24 19:25 | NUR ---
NURSE NOTES: Received report from REA Sy. Pt is in bed with no apparent signs of distress. Call light within reach, pt knows to contact staff when in need of assistance. Morales draining well. Will continue to monitor.
--- NOTE | 2020-05-24 19:55 | NUR ---
NURSE HAND-OFF: Important Events on Shift:occult blood collected Patient Status: stable Diet: regular Pending Orders: n/a Pending Results/Labs:n.a Pending MD notification:n/a Latest Vital Signs: Temperature 99.0 , Pulse 95 , B/P 112 /61 , Respiratory Rate 18 , O2 SAT 97 , Nasal Cannula, O2 Flow Rate 2.0 . Vital Sign Comment: stable Latest [place] Fall Score: 35 Fall Risk: Medium Risk Safety Measures: Call light Within Reach, Bed Alarm Zone 1, Side Rails Side Rails x2, Bed position Low and Locked. Fall Precautions: Door Sign Patient Fall Education Report given to
--- NOTE | 2020-05-24 21:56 | Neurology Progress Note ---
Interim History Interim History ROS Limited/Unobtainable: No Interim History pain better controlled Objective Physical Exam Last Vital Signs Date Time Temp Pulse Resp B/P (MAP) Pulse Ox O2 Delivery O2 Flow Rate FiO2 05/24/20 21:00 Room Air 05/24/20 20:00 97.9 96 18 118/76 (90) 98 05/17/20 19:55 21 Laboratory Tests Test 05/24/20 06:16 White Blood Count 5.1 K/UL (4.8-10.8) Red Blood Count 2.86 M/UL (4.20-5.40) L Hemoglobin 8.0 G/DL (12.0-16.0) L Hematocrit 26.3 % (37.0-47.0) L Mean Corpuscular Volume 92 FL (80-99) Mean Corpuscular Hemoglobin 28.0 PG (27.0-31.0) Mean Corpuscular Hemoglobin Concent 30.6 G/DL (32.0-36.0) L Red Cell Distribution Width 21.9 % (11.6-14.8) H Platelet Count 364 K/UL (150-450) Mean Platelet Volume 6.4 FL (6.5-10.1) L Neutrophils (%) (Auto) 77.4 % (45.0-75.0) H Lymphocytes (%) (Auto) 8.5 % (20.0-45.0) L Monocytes (%) (Auto) 4.8 % (1.0-10.0) Eosinophils (%) (Auto) 7.7 % (0.0-3.0) H Basophils (%) (Auto) 1.6 % (0.0-2.0) Sodium Level 141 MMOL/L (136-145) Potassium Level 3.6 MMOL/L (3.5-5.1) Chloride Level 105 MMOL/L (98-107) Carbon Dioxide Level 29 MMOL/L (21-32) Anion Gap 7 mmol/L (5-15) Blood Urea Nitrogen 5 mg/dL (7-18) L Creatinine 0.4 MG/DL (0.55-1.30) L Estimat Glomerular Filtration Rate > 60 mL/min (>60) Glucose Level 91 MG/DL (74-106) Calcium Level 10.0 MG/DL (8.5-10.1) Phosphorus Level 4.6 MG/DL (2.5-4.9) Magnesium Level 2.2 MG/DL (1.8-2.4) Impression/Recommendations Problems: (1) Anemia Status: stable, progressing Diagnostic Impression Chronic weakness, LE worse than UEs MRI spine noted, osteoma wo spine compression slplaminectomy COVID 19 pneumonia (febrile, tachycardic) Hx of Lymphoma cont medical support pain control PT as able Renny Bajwa MD May 24, 2020 21:56
[2020-05-24] MEDS: Morphine Sulfate 4mg/ml Inj (IV USE ONLY) IVP PRN (22:22)
[2020-05-25] VITALS: BP 118/76
[2020-05-25] MEDS: HYDROcodone/Acetamin 10/325 tab ORAL PRN ×3 (01:32→16:35)
[2020-05-25 04:00] VITALS: BP 120/69
[2020-05-25] MEDS: Heparin 5000 units/ml inj SUBQ SCH ×2 (05:25→13:10)
[2020-05-25] MEDS: Morphine Sulfate 2mg/ml Inj(IV/IM USE ONLY) IVP PRN (05:26)
[2020-05-25 06:16] LABS: HEMATOCRIT 25.8 % (37.0-47.0); HEMOGLOBIN 8.1 G/DL (12.0-16.0); MEAN CORPUSCULAR VOLUME 91 FL (80-99); PLATELET COUNT 373 K/UL (150-450); RED BLOOD COUNT 2.84 M/UL (4.20-5.40); RED CELL DISTRIBUTION WIDTH 21.1 % (11.6-14.8); WHITE BLOOD COUNT 6.3 K/UL (4.8-10.8)
[2020-05-25 07:06] LABS: ANION GAP 10 mmol/L (5-15); BLOOD UREA NITROGEN 5 mg/dL (7-18); CALCIUM 10.1 MG/DL (8.5-10.1); CARBON DIOXIDE 26 MMOL/L (21-32); CHLORIDE 107 MMOL/L (98-107); CREATININE 0.4 MG/DL (0.55-1.30); POTASSIUM 4.2 MMOL/L (3.5-5.1); SODIUM 143 MMOL/L (136-145)
--- NOTE | 2020-05-25 07:15 | NUR ---
NURSE NOTES: Received received resting comfortably in bed, patient awake, alert, oriented x4, , no s/s or respiratory distress on room air or pain. HL patent, on fall, contact isolation precaution observed and maintain, Bed in lowest position and locked. Bed in lowest position and locked. turn q2h for comfort and good circulation, Call light within reach. Will continue to monitor. kris amador
--- NOTE | 2020-05-25 07:20 | NUR ---
NURSE HAND-OFF: Important Events on Shift: Pain management Patient Status: calm Diet: regular Pending Orders: Pending Results/Labs: Pending MD notification: Latest Vital Signs: Temperature 98.4 , Pulse 84 , B/P 120 /69 , Respiratory Rate 16 , O2 SAT 98 , Nasal Cannula, O2 Flow Rate 2.0 . Vital Sign Comment: VSS Latest [place] Fall Score: 35 Fall Risk: Medium Risk Safety Measures: Call light Within Reach, Bed Alarm Zone 1, Side Rails Side Rails x2, Bed position Low and Locked. Fall Precautions: Door Sign Patient Fall Education Report given to REA Jones.
--- NOTE | 2020-05-25 08:14 | Nephrology Progress Note ---
Assessment/Plan Plan #acute kidney injury likely due to vanco toxicity #hypokalemia- #hypomagnesemia #Acute on chronic anemia #h/p non- hodgkins lymphoma #possible sepsis #+ COVID #Femoral intertrochanteric hip fracture. - NS bolus - replete k and mag - Pulmonary eval - prbc transfusion prn - replete lytes - hemo-onc eval - ID eval - monitor CBC - avoid nephrotoxins - ortho eval - spine eval for L3 acute on chronic bone infarct, less likely neoplasm or infection? times spent 65 min Subjective ROS Limited/Unobtainable: No Constitutional: Reports: weakness Subjective hypotensive s/p NS bolus hip fracture noted ortho consulted Impression: Minimal distention of the rectum with feces, could represent mild rectal fecal impaction. Equivocal slight thickening of the rectal wall and stranding of the perirectal fat, if real could indicate mild stercoral proctitis Comminuted fracture of the left femoral head, neck, and intertrochanteric region, ununited. Possibly acute, but abundant soft tissues surrounding the fracture area raises possibility that this could be chronic. Correlate with clinical findings Other findings as noted, including evidence of old T12 vertebral body compression fracture and prior vertebral augmentation procedure, Morales catheter, subcentimeter low-attenuation lesions which probably represent renal cysts, small sliding-type hiatal hernia Impression: Unusual signal abnormality of the posterolateral aspect of the L3 vertebral body on the right. This appears to be confined to the vertebral body marrow space. Prior CT scan in retrospect demonstrates sclerotic areas in the same location. Most likely differential consideration is an atypical hemangioma. Other possibilities include acute on chronic bone infarct, less likely neoplasm or infection No other unusual contrast enhancement. No findings to suggest discitis or epid ural abscess. Objective Objective Last 24 Hour Vital Signs Date Time Temp Pulse Resp B/P (MAP) Pulse Ox O2 Delivery O2 Flow Rate FiO2 05/25/20 04:00 98.4 84 16 120/69 (86) 98 05/25/20 00:00 97.5 109 17 118/76 (90) 100 05/24/20 21:00 Room Air 05/24/20 20:00 97.9 96 18 118/76 (90) 98 05/24/20 19:26 99.0 05/24/20 16:49 99.0 05/24/20 16:00 99.0 95 18 112/61 (78) 97 05/24/20 12:55 97.4 05/24/20 12:00 97.6 83 19 98/64 (75) 97 05/24/20 10:44 97.4 05/24/20 09:00 Room Air Intake and Output 05/24/20 05/25/20 19:00 07:00 Intake Total 720 ml Output Total 1350 ml Balance 720 ml -1350 ml Intake Oral 720 ml Output Urine Total 1350 ml # Bowel Movements 1 Laboratory Tests 05/24/20 21:00: Stool Occult Blood [Pending] 05/25/20 05:15: White Blood Count 6.3, Red Blood Count 2.84L, Hemoglobin 8.1L, Hematocrit 25.8L, Mean Corpuscular Volume 91, Mean Corpuscular Hemoglobin 28.3, Mean Corpuscular Hemoglobin Concent 31.3L, Red Cell Distribution Width 21.1H, Platelet Count 373, Mean Platelet Volume 5.6L, Neutrophils (%) (Auto) , Lymphocytes (%) (Auto) , Monocytes (%) (Auto) , Eosinophils (%) (Auto) , Basophils (%) (Auto) , Neutrophils % (Manual) [Pending], Lymphocytes % (Manual) [Pending], Platelet Estimate [Pending], Platelet Morphology [Pending], Sodium Level 143, Potassium Level 4.2, Chloride Level 107, Carbon Dioxide Level 26, Anion Gap 10, Blood Urea Nitrogen 5L, Creatinine 0.4L, Estimat Glomerular Filtration Rate > 60, Glucose Level 79, Calcium Level 10.1 Height (Feet): 5 Height (Inches): 7.00 Weight (Pounds): 150 Objective General Appearance: no apparent distress EENT: PERRL/EOMI Neck: non-tender, normal alignment Cardiovascular: normal peripheral pulses, normal rate Respiratory/Chest: chest wall non-tender, lungs clear Abdomen: normal bowel sounds, non tender Neurologic: alert, oriented x 3 Kallie Dykes M.D. May 25, 2020 08:14
[2020-05-25 08:20] VITALS: BP 93/59
[2020-05-25] MEDS: Dronabinol 2.5mg Cap ORAL SCH ×2 (08:33→17:44)
[2020-05-25] MEDS: Magnesium Oxide 400mg tab ORAL SCH ×3 (08:34→17:44)
[2020-05-25] MEDS: Ascorbic Acid 500mg tab ORAL SCH (08:34)
--- NOTE | 2020-05-25 10:00 | Pulmonology Progress Note ---
Subjective ROS Limited/Unobtainable: No Interval Events: None new Constitutional: Reports: fever - resolved, fatigue HEENT: Repors: no symptoms Respiratory: Reports: no symptoms, dry cough Cardiovascular: Reports: no symptoms Gastrointestinal/Abdominal: Denies: nausea, vomiting, diarrhea Psychiatric: Denies: depression Skin: Denies: rash Musculoskeletal: Denies: pain Allergies: Coded Allergies: No Known Allergies (Unverified , 04/11/20) All Systems: reviewed and negative except above Objective Last 24 Hour Vital Signs Date Time Temp Pulse Resp B/P (MAP) Pulse Ox O2 Delivery O2 Flow Rate FiO2 05/25/20 08:30 Room Air 05/25/20 08:20 97.0 101 17 93/59 (70) 99 05/25/20 04:00 98.4 84 16 120/69 (86) 98 05/25/20 00:00 97.5 109 17 118/76 (90) 100 05/24/20 21:00 Room Air 05/24/20 20:00 97.9 96 18 118/76 (90) 98 05/24/20 19:26 99.0 05/24/20 16:49 99.0 05/24/20 16:00 99.0 95 18 112/61 (78) 97 05/24/20 12:55 97.4 05/24/20 12:00 97.6 83 19 98/64 (75) 97 05/24/20 10:44 97.4 Intake and Output 05/24/20 05/25/20 19:00 07:00 Intake Total 720 ml Output Total 1350 ml Balance 720 ml -1350 ml Intake Oral 720 ml Output Urine Total 1350 ml # Bowel Movements 1 Objective 05/25 no change 05/24 stable respiration 05/23 stable 05/22 no change respiratory salomon 05/20 stable on room air 05/19 on and off 2L NC but stable on room air 05/18 stable 05/17 stable 05/16 no change 05/15 stable respiration on room air 05/12 no change respiratory-salomon 05/11 no change 05/10 no change, still on 1-2L NC 05/09 no change, still on 2L NC 05/08 no change respiratory-salomon; stable 05/07 stable saturation 05/06 no change 05/05 no change respiratory-salomon; stable no change 05/03 no change; AM labs unavailable 05/02 on and off 2 L NC; NAD 05/01 no change 04/28 on and off 1 L NC; NAD 04/27 on and off 1 L NC; NAD 04/26 still on 1 L NC; NAD 04/25 no change respiratory-salomon 04/24 no change 04/23 on and off 1 lpm NC 04/22 saturating well on and off 1 lpm NC 04/21 no change 04/20 pt saturating well on 2 lpm NC; NAD 04/19 pt saturating well on 2 lpm NC; NAD 04/18 pt saturating well on 2 lpm NC General Appearance: WD/WN, no acute distress HEENT: normocephalic, atraumatic Respiratory: lungs clear Cardiovascular: normal rate, regular rhythm, tachycardia - intermittent Abdomen: soft, non tender Genitourinary: other - Morales Extremities: no edema Laboratory Tests 05/24/20 21:00: Stool Occult Blood Negative 05/25/20 05:15: White Blood Count 6.3, Red Blood Count 2.84L, Hemoglobin 8.1L, Hematocrit 25.8L, Mean Corpuscular Volume 91, Mean Corpuscular Hemoglobin 28.3, Mean Corpuscular Hemoglobin Concent 31.3L, Red Cell Distribution Width 21.1H, Platelet Count 373, Mean Platelet Volume 5.6L, Neutrophils (%) (Auto) , Lymphocytes (%) (Auto) , Monocytes (%) (Auto) , Eosinophils (%) (Auto) , Basophils (%) (Auto) , Neutrophils % (Manual) [Pending], Lymphocytes % (Manual) [Pending], Platelet Estimate [Pending], Platelet Morphology [Pending], Sodium Level 143, Potassium Level 4.2, Chloride Level 107, Carbon Dioxide Level 26, Anion Gap 10, Blood Urea Nitrogen 5L, Creatinine 0.4L, Estimat Glomerular Filtration Rate > 60, Glucose Level 79, Calcium Level 10.1 Current Medications Medications (Trade) Dose Ordered Sig/Angelika Route PRN Reason Start Time Stop Time Status Last Admin Dose Admin Acetaminophen (Tylenol) 650 mg Q6H PRN ORAL Mild Pain (Pain Scale 1-3) 05/10/20 17:30 06/09/20 17:29 05/15/20 09:13 Acetaminophen (Tylenol) 650 mg Q6H PRN ORAL Temp >100.5 05/10/20 18:00 06/09/20 17:59 Acetaminophen/ Hydrocodone Bitart ([place] 10/325) 1 tab Q6H PRN ORAL Severe Pain (Pain Scale 7-10) 05/23/20 13:33 05/30/20 13:32 05/25/20 08:40 Acetaminophen/ Hydrocodone Bitart ([place] 5/325) 1 tab Q6H PRN ORAL Moderate Pain (Pain Scale 4-6) 05/23/20 13:33 05/30/20 13:32 05/24/20 18:56 Allopurinol (allopurinoL) 300 mg DAILY ORAL 05/12/20 09:00 06/11/20 08:59 05/25/20 08:33 Ascorbic Acid (Vitamin C) 500 mg DAILY ORAL 04/26/20 09:00 05/26/20 08:59 05/25/20 08:34 Baclofen (Lioresal) 10 mg THREE TIMES A DAY ORAL 05/11/20 13:00 06/10/20 12:59 05/25/20 08:33 Chlorhexidine Gluconate (Christy-Hex 2%) 1 applic Q24H TOPIC 04/25/20 20:00 07/24/20 19:59 05/16/20 20:03 Dronabinol (Marinol) 5 mg BID ORAL 05/01/20 09:00 07/30/20 08:59 05/25/20 08:33 Heparin Sodium (Porcine) (Heparin 5000 units/ml) 5,000 units EVERY 8 HOURS SUBQ 04/24/20 22:00 06/08/20 21:59 05/05/20 05:38 Linaclotide (Linzess) 290 mcg BEFORE BREAKFAST ORAL 04/26/20 06:30 07/25/20 06:29 05/25/20 05:32 Magnesium Oxide (Mag-Ox 400mg) 400 mg THREE TIMES A DAY ORAL 04/30/20 13:00 05/30/20 12:59 05/25/20 08:34 Morphine Sulfate (Morphine Sulfate) 2 mg Q3H PRN IVP Severe Pain (Pain Scale 7-10) 05/23/20 13:33 05/30/20 13:32 05/25/20 05:26 Morphine Sulfate (Morphine Sulfate) 4 mg Q3H PRN IVP SEVERE BREAKTHRU PAIN 05/23/20 13:33 05/30/20 13:32 05/24/20 22:22 Multivitamins (Multivitamins) 1 tab DAILY ORAL 04/26/20 09:00 05/26/20 08:59 05/25/20 08:34 Assessment/Plan Assessment/Plan 1. COVID-19 infection - COVID-19 PCR 04/21 positive: now off isolation - no indication for steroid or remdesivir given her normoxemia - s/p cefepime - CXR with diffuse non-specific inflammatory/infectious process - Pt uses low flow oxygen for comfort; stable on room air - CT A/P/C - no obvious pna or abscess, cultures negative 2. Immunocompromised state with history of non-Hodgkin lymphoma. - h/o port line infection; s/p Vanco - to return to [facility] for further Tx 3. Fever; resolved - urine culture showed zee albicans - blood culture showed no growth 4. Hx of Hypertension. 5. Hx of gout. 6. Anemia - s/p pRBC 7. DVT ppx - on SCD 8. Low TSH; improving - Dr. Fermin following - no need for levothyroxine per Dr. Fermin 9. Zee UTI - Urine Cx showed zee albicans - On fluconazole 200mg daily for 5 days (05/04 - 05/09) per ID 10. Hypokalemia - potassium replaced per neprho 11. Hypomagnesemia - Mg replaced per nephro 12. 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
--- NOTE | 2020-05-25 10:02 | Cardiac Electrophysiology PN ---
Assessment/Plan Assessment/Plan 1. Sinus tachycardia due to sepsis, anemia and COVID. Resolved 2. S/P COVID pneumonia. Off isolation and on RA 3. Hypokalemia and Hypomagnesemia.Replaced 5. History of non-Hodgkin lymphoma. 6. Leukopenia and anemia. S/P PRBC 7. Left Hip Fx; Likely Chronic Minimal pain in left hip Per Dr. Payan risks > benefits. Subjective Subjective Off Covid isolation on RA awaiting SNIF placement . Asking for pain meds round the clock Objective Last 24 Hour Vital Signs Date Time Temp Pulse Resp B/P (MAP) Pulse Ox O2 Delivery O2 Flow Rate FiO2 05/25/20 08:30 Room Air 05/25/20 08:20 97.0 101 17 93/59 (70) 99 05/25/20 04:00 98.4 84 16 120/69 (86) 98 05/25/20 00:00 97.5 109 17 118/76 (90) 100 05/24/20 21:00 Room Air 05/24/20 20:00 97.9 96 18 118/76 (90) 98 05/24/20 19:26 99.0 05/24/20 16:49 99.0 05/24/20 16:00 99.0 95 18 112/61 (78) 97 05/24/20 12:55 97.4 05/24/20 12:00 97.6 83 19 98/64 (75) 97 05/24/20 10:44 97.4 Intake and Output 05/24/20 05/25/20 19:00 07:00 Intake Total 720 ml Output Total 1350 ml Balance 720 ml -1350 ml Intake Oral 720 ml Output Urine Total 1350 ml # Bowel Movements 1 Laboratory Tests Test 05/24/20 21:00 05/25/20 05:15 Stool Occult Blood Negative (NEGATIVE) White Blood Count 6.3 K/UL (4.8-10.8) Red Blood Count 2.84 M/UL (4.20-5.40) L Hemoglobin 8.1 G/DL (12.0-16.0) L Hematocrit 25.8 % (37.0-47.0) L Mean Corpuscular Volume 91 FL (80-99) Mean Corpuscular Hemoglobin 28.3 PG (27.0-31.0) Mean Corpuscular Hemoglobin Concent 31.3 G/DL (32.0-36.0) L Red Cell Distribution Width 21.1 % (11.6-14.8) H Platelet Count 373 K/UL (150-450) Mean Platelet Volume 5.6 FL (6.5-10.1) L Neutrophils (%) (Auto) % (45.0-75.0) Lymphocytes (%) (Auto) % (20.0-45.0) Monocytes (%) (Auto) % (1.0-10.0) Eosinophils (%) (Auto) % (0.0-3.0) Basophils (%) (Auto) % (0.0-2.0) Neutrophils % (Manual) Pending Lymphocytes % (Manual) Pending Platelet Estimate Pending Platelet Morphology Pending Sodium Level 143 MMOL/L (136-145) Potassium Level 4.2 MMOL/L (3.5-5.1) Chloride Level 107 MMOL/L (98-107) Carbon Dioxide Level 26 MMOL/L (21-32) Anion Gap 10 mmol/L (5-15) Blood Urea Nitrogen 5 mg/dL (7-18) L Creatinine 0.4 MG/DL (0.55-1.30) L Estimat Glomerular Filtration Rate > 60 mL/min (>60) Glucose Level 79 MG/DL (74-106) Calcium Level 10.1 MG/DL (8.5-10.1) Objective HEAD AND NECK: No JVD. LUNGS: Coarse rhonchi. CARDIOVASCULAR: Regular S1 and S2 with no gallop or murmur. ABDOMEN: Soft. EXTREMITIES: No pitting edema. Ehsan Wan MD May 25, 2020 10:02
--- NOTE | 2020-05-25 10:55 | Hematology/Onc Progress Note ---
Assessment/Plan Assessment/Plan # Non-Hodgkins Lymphoma is s/p chemotherapy in the past, Dr. Tovar of [facility] --> to return to [facility] for further treatment --> likely for ct/pet as outpatient --> CT Here shows no e/o disease --> imaging has been reviewed thus far --> last treatment was 02/2020, end date of 04/2020 # Leukopenia COVID19++++++++++ --> hep and hiv are neg --> wbc 4-->3-->2.9->2->4.6--4.1-->3.6-->4.7-->3.6->4.1-->4.7-->3.8-->3->5 --> Neupogen 300 x1 04/21 --> isolation if anc<500 # Anemia likely of chronic disease -- does not appear to have iron deficiency --> transfuse as needed, tibc and ferritin are cw acd --> hgb 7.8-->8.6-->8.5-->8.4->7.6-->10-->9.9->9.6-->8.7-->8-->9.2-->9.1->7.7-->8->8.1 --> no hemolysis is noted --> s/p transfusion on admission # Covid 19++ with SIRS (febrile, tachycardic) --> per pulm and id --> CXR with diffuse non-specific inflammatory/infectious process --> s/p Cefepime (04/14 - 04/15) # Hypokalemia # Hypomagnesia # Chronic Back pain # Full Code # Dvt ppx heparin sq Appreciate consultation and dw Rn Subjective Constitutional: Denies: no symptoms, chills, fever, malaise, weakness, other HEENT: Denies: no symptoms, eye pain, blurred vision, tearing, double vision, ear pain, ear discharge, nose pain, nose congestion, throat pain, throat swelling, mouth pain, mouth swelling, other Cardiovascular: Denies: no symptoms, chest pain, edema, irregular heart rate, lightheadedness, palpitations, syncope, other Gastrointestinal/Abdominal: Denies: no symptoms, abdomen distended, abdominal pain, black stools, tarry stools, blood in stool, constipated, diarrhea, difficulty swallowing, nausea, poor appetite, poor fluid intake, rectal bleeding, vomiting, other Genitourinary: Denies: no symptoms, burning, discharge, frequency, flank pain, hematuria, incontinence, pain, urgency, other Neurologic/Psychiatric: Denies: no symptoms, anxiety, depressed, emotional problems, headache, numbness, paresthesia, pre-existing deficit, seizure, tingling, tremors, weakness, other Endocrine: Denies: no symptoms, excessive sweating, flushing, intolerance to cold, intolerance to heat, increased hunger, increased thirst, increased urine, unexplained weight gain, unexplained weight loss, other Allergies: Coded Allergies: No Known Allergies (Unverified , 04/11/20) Subjective 04/17 is on room air, more comfortable, potential dc to snf 04/18 labs reviewed, no bleeding, meds noted, no night sweats 04/19 sleeping comfortably, no major events, no night sweats 04/20 meds noted, labs reviewed, wbc 2.9, hep and hiv is neg 04/21 labs reviewed, in am, the wbc was 2, to get neupogen x 1 dose now 04/23 labs noted, no bleeding, wbc 4, hgb remains low, but holding off trans 04/24 labs are pending for am, meds reviewed, no bleeding 04/25 meds reviewed, labs noted, no night sweats, reagan rn at bedside, no new events 04/26 labs reviewed, meds noted, no bleeding, wbc 3, hgb 7.6 04/27 reagan rn at bedside, labs are noted, no bleeding, refusing heparin now sq 04/28 labs have been reviewed, is on room air, no bleeding, tachy 04/30 labs pending, no night sweats, meds reviewed, tachy, no night sweats, wants iv iron 05/01 dc planning, meds noted, for labs this am, no new events 05/02 meds reviewed, has been refusing care, continue heparin sq 05/03 labs reviewed, on 2lnc, no bleeding, remains on hep but refusing 05/04 meds ntoed, labs reviewed, no new changes, reagan RN 05/05 meds noted, no bleeding, labs reviewed, no f/c 05/06: no acute events reported, no resp distress 05/07: no resp distress, vss on RA dc planning continues 05/08 on [facility]co prn, nc, eaton, labs are noted 05/09 meds reviewed, labs pending, on nc, eaton 05/10 nc with eaton, no night sweats, meds have been reviewed 05/11 2lnc, bedbound no new changes, no new events, no bleeding 05/12: no acute events reported. No bleeding. 05/14 no new changes, no bleeding, meds noted, labs reviewed 05/15 labs are noted, no bleeding, meds reviewed, smear reviewed as well 05/16 awake, refusing meds, labs noted, has been refusing labs periodically 05/17 meds noted, no bleeding, no major events, hgb 9.1 05/18 labs reviewed, meds noted, hgb 8.4, no major changes 05/19 meds noted, labs reviewed, no major changes, no bleeding, sacral wound dressings 05/21 meds noted, eaton is in place, no night sweats, reagan rn 05/22 labs reviewed, meds noted, for outpatient [facility] care 05/23 nv, meds noted, no bleeding, labs reviewed 05/24 nv, labs noted, no bleeding, meds noted, wants to be dc soon 05/25 nv, meds reviewed, no night sweats, meds noted, no bleeding Objective Objective Current Medications Medications (Trade) Dose Ordered Sig/Angelika Route PRN Reason Start Time Stop Time Status Last Admin Dose Admin Acetaminophen (Tylenol) 650 mg Q6H PRN ORAL Mild Pain (Pain Scale 1-3) 05/10/20 17:30 06/09/20 17:29 05/15/20 09:13 Acetaminophen (Tylenol) 650 mg Q6H PRN ORAL Temp >100.5 05/10/20 18:00 06/09/20 17:59 Acetaminophen/ Hydrocodone Bitart ([place] 10/325) 1 tab Q6H PRN ORAL Severe Pain (Pain Scale 7-10) 05/23/20 13:33 05/30/20 13:32 05/25/20 08:40 Acetaminophen/ Hydrocodone Bitart ([place] 5/325) 1 tab Q6H PRN ORAL Moderate Pain (Pain Scale 4-6) 05/23/20 13:33 05/30/20 13:32 05/24/20 18:56 Allopurinol (allopurinoL) 300 mg DAILY ORAL 05/12/20 09:00 06/11/20 08:59 05/25/20 08:33 Ascorbic Acid (Vitamin C) 500 mg DAILY ORAL 04/26/20 09:00 05/26/20 08:59 05/25/20 08:34 Baclofen (Lioresal) 10 mg THREE TIMES A DAY ORAL 05/11/20 13:00 06/10/20 12:59 05/25/20 08:33 Chlorhexidine Gluconate (Christy-Hex 2%) 1 applic Q24H TOPIC 04/25/20 20:00 07/24/20 19:59 05/16/20 20:03 Dronabinol (Marinol) 5 mg BID ORAL 05/01/20 09:00 07/30/20 08:59 05/25/20 08:33 Heparin Sodium (Porcine) (Heparin 5000 units/ml) 5,000 units EVERY 8 HOURS SUBQ 04/24/20 22:00 06/08/20 21:59 05/05/20 05:38 Linaclotide (Linzess) 290 mcg BEFORE BREAKFAST ORAL 04/26/20 06:30 07/25/20 06:29 05/25/20 05:32 Magnesium Oxide (Mag-Ox 400mg) 400 mg THREE TIMES A DAY ORAL 04/30/20 13:00 05/30/20 12:59 05/25/20 08:34 Morphine Sulfate (Morphine Sulfate) 2 mg Q3H PRN IVP Severe Pain (Pain Scale 7-10) 05/23/20 13:33 05/30/20 13:32 05/25/20 05:26 Morphine Sulfate (Morphine Sulfate) 4 mg Q3H PRN IVP SEVERE BREAKTHRU PAIN 05/23/20 13:33 05/30/20 13:32 05/24/20 22:22 Multivitamins (Multivitamins) 1 tab DAILY ORAL 04/26/20 09:00 05/26/20 08:59 05/25/20 08:34 Last 24 Hour Vital Signs Date Time Temp Pulse Resp B/P (MAP) Pulse Ox O2 Delivery O2 Flow Rate FiO2 05/25/20 08:30 Room Air 05/25/20 08:20 97.0 101 17 93/59 (70) 99 05/25/20 04:00 98.4 84 16 120/69 (86) 98 05/25/20 00:00 97.5 109 17 118/76 (90) 100 05/24/20 21:00 Room Air 05/24/20 20:00 97.9 96 18 118/76 (90) 98 05/24/20 19:26 99.0 05/24/20 16:49 99.0 05/24/20 16:00 99.0 95 18 112/61 (78) 97 05/24/20 12:55 97.4 05/24/20 12:00 97.6 83 19 98/64 (75) 97 05/24/20 10:44 97.4 05/24/20 09:00 Room Air 05/24/20 08:00 97.4 104 18 91/56 (68) 97 05/24/20 05:03 98.1 92 18 118/73 (88) 97 05/24/20 04:00 98.1 92 18 118/73 (88) 97 05/24/20 00:00 98.3 95 18 108/72 (84) 96 05/23/20 20:34 Room Air 05/23/20 20:00 98.2 101 18 140/88 (105) 98 05/23/20 16:00 97.4 98 18 130/86 (101) 94 05/23/20 12:00 97.8 110 18 105/71 (82) 95 Intake and Output 05/24/20 05/25/20 19:00 07:00 Intake Total 720 ml Output Total 1350 ml Balance 720 ml -1350 ml Intake Oral 720 ml Output Urine Total 1350 ml # Bowel Movements 1 Labs Test 05/23/20 06:22 05/24/20 06:16 05/24/20 21:00 05/25/20 05:15 White Blood Count 6.5 K/UL (4.8-10.8) 5.1 K/UL (4.8-10.8) 6.3 K/UL (4.8-10.8) Red Blood Count 2.76 M/UL (4.20-5.40) 2.86 M/UL (4.20-5.40) 2.84 M/UL (4.20-5.40) Hemoglobin 7.7 G/DL (12.0-16.0) 8.0 G/DL (12.0-16.0) 8.1 G/DL (12.0-16.0) Hematocrit 25.7 % (37.0-47.0) 26.3 % (37.0-47.0) 25.8 % (37.0-47.0) Mean Corpuscular Volume 93 FL (80-99) 92 FL (80-99) 91 FL (80-99) Mean Corpuscular Hemoglobin 27.9 PG (27.0-31.0) 28.0 PG (27.0-31.0) 28.3 PG (27.0-31.0) Mean Corpuscular Hemoglobin Concent 29.9 G/DL (32.0-36.0) 30.6 G/DL (32.0-36.0) 31.3 G/DL (32.0-36.0) Red Cell Distribution Width 22.1 % (11.6-14.8) 21.9 % (11.6-14.8) 21.1 % (11.6-14.8) Platelet Count 373 K/UL (150-450) 364 K/UL (150-450) 373 K/UL (150-450) Mean Platelet Volume 5.9 FL (6.5-10.1) 6.4 FL (6.5-10.1) 5.6 FL (6.5-10.1) Neutrophils (%) (Auto) % (45.0-75.0) 77.4 % (45.0-75.0) % (45.0-75.0) Lymphocytes (%) (Auto) % (20.0-45.0) 8.5 % (20.0-45.0) % (20.0-45.0) Monocytes (%) (Auto) % (1.0-10.0) 4.8 % (1.0-10.0) % (1.0-10.0) Eosinophils (%) (Auto) % (0.0-3.0) 7.7 % (0.0-3.0) % (0.0-3.0) Basophils (%) (Auto) % (0.0-2.0) 1.6 % (0.0-2.0) % (0.0-2.0) Differential Total Cells Counted 100 100 Neutrophils % (Manual) 72 % (45-75) 74 % (45-75) Lymphocytes % (Manual) 14 % (20-45) 12 % (20-45) Monocytes % (Manual) 4 % (1-10) 3 % (1-10) Eosinophils % (Manual) 8 % (0-3) 7 % (0-3) Basophils % (Manual) 1 % (0-2) 0 % (0-2) Myelocytes % 1 % (0-0) Band Neutrophils 0 % (0-8) 4 % (0-8) Platelet Estimate Adequate Adequate Platelet Morphology Normal Normal Hypochromasia 1+ 2+ Anisocytosis 3+ 2+ Sodium Level 141 MMOL/L (136-145) 143 MMOL/L (136-145) Potassium Level 3.6 MMOL/L (3.5-5.1) 4.2 MMOL/L (3.5-5.1) Chloride Level 105 MMOL/L (98-107) 107 MMOL/L (98-107) Carbon Dioxide Level 29 MMOL/L (21-32) 26 MMOL/L (21-32) Anion Gap 7 mmol/L (5-15) 10 mmol/L (5-15) Blood Urea Nitrogen 5 mg/dL (7-18) 5 mg/dL (7-18) Creatinine 0.4 MG/DL (0.55-1.30) 0.4 MG/DL (0.55-1.30) Estimat Glomerular Filtration Rate > 60 mL/min (>60) > 60 mL/min (>60) Glucose Level 91 MG/DL (74-106) 79 MG/DL (74-106) Calcium Level 10.0 MG/DL (8.5-10.1) 10.1 MG/DL (8.5-10.1) Phosphorus Level 4.6 MG/DL (2.5-4.9) Magnesium Level 2.2 MG/DL (1.8-2.4) Stool Occult Blood Negative (NEGATIVE) Height (Feet): 5 Height (Inches): 7.00 Weight (Pounds): 150 Objective Gen: nad Pulm: ctab, no cwr CV: rrr Abd: soft, nt Ext: no cce Martinez Hill MD May 25, 2020 10:55
--- NOTE | 2020-05-25 11:41 | General Progress Note ---
Subjective ROS Limited/Unobtainable: No Allergies: Coded Allergies: No Known Allergies (Unverified , 04/11/20) Objective Last 24 Hour Vital Signs Date Time Temp Pulse Resp B/P (MAP) Pulse Ox O2 Delivery O2 Flow Rate FiO2 05/25/20 08:30 Room Air 05/25/20 08:20 97.0 101 17 93/59 (70) 99 05/25/20 04:00 98.4 84 16 120/69 (86) 98 05/25/20 00:00 97.5 109 17 118/76 (90) 100 05/24/20 21:00 Room Air 05/24/20 20:00 97.9 96 18 118/76 (90) 98 05/24/20 19:26 99.0 05/24/20 16:49 99.0 05/24/20 16:00 99.0 95 18 112/61 (78) 97 05/24/20 12:55 97.4 05/24/20 12:00 97.6 83 19 98/64 (75) 97 Intake and Output 05/24/20 05/25/20 19:00 07:00 Intake Total 720 ml Output Total 1350 ml Balance 720 ml -1350 ml Intake Oral 720 ml Output Urine Total 1350 ml # Bowel Movements 1 Laboratory Tests 05/24/20 21:00: Stool Occult Blood Negative 05/25/20 05:15: White Blood Count 6.3, Red Blood Count 2.84L, Hemoglobin 8.1L, Hematocrit 25.8L, Mean Corpuscular Volume 91, Mean Corpuscular Hemoglobin 28.3, Mean Corpuscular Hemoglobin Concent 31.3L, Red Cell Distribution Width 21.1H, Platelet Count 373, Mean Platelet Volume 5.6L, Neutrophils (%) (Auto) , Lymphocytes (%) (Auto) , Monocytes (%) (Auto) , Eosinophils (%) (Auto) , Basophils (%) (Auto) , Differential Total Cells Counted 100, Neutrophils % (Manual) 74, Lymphocytes % (Manual) 12L, Monocytes % (Manual) 3, Eosinophils % (Manual) 7H, Basophils % (Manual) 0, Band Neutrophils 4, Platelet Estimate Adequate, Platelet Morphology Normal, Hypochromasia 2+, Anisocytosis 2+, Sodium Level 143, Potassium Level 4.2, Chloride Level 107, Carbon Dioxide Level 26, Anion Gap 10, Blood Urea Nitrogen 5L, Creatinine 0.4L, Estimat Glomerular Filtration Rate > 60, Glucose Level 79, Calcium Level 10.1 Height (Feet): 5 Height (Inches): 7.00 Weight (Pounds): 150 EENT: normal ENT inspection Neck: supple Cardiovascular: normal rate Respiratory/Chest: decreased breath sounds Abdomen: normal bowel sounds, non tender, soft Extremities: non-tender Assessment/Plan Status: stable, progressing Assessment/Plan: iron def anemia mild elevated CEA lymphoma on chemo covid positive>>> now off isolation neg stool ob in 12 iv iron, completed fu H&H needs out patient fu for colonoscopy fu oncology CT reviewed colace miralax lactulose linzess marinol no active GIB repeat cbc and stool ob Patrick Carter MD May 25, 2020 11:40
[2020-05-25 12:00] VITALS: BP 112/66
[2020-05-25] MEDS: Morphine Sulfate 4mg/ml Inj (IV USE ONLY) IVP PRN (12:39)
--- NOTE | 2020-05-25 13:39 | General Progress Note ---
Subjective Constitutional: Reports: weakness Allergies: Coded Allergies: No Known Allergies (Unverified , 04/11/20) All Systems: reviewed and negative except above Subjective sleepy calm Objective Last 24 Hour Vital Signs Date Time Temp Pulse Resp B/P (MAP) Pulse Ox O2 Delivery O2 Flow Rate FiO2 05/25/20 12:00 97.7 91 18 112/66 (81) 99 05/25/20 08:30 Room Air 05/25/20 08:20 97.0 101 17 93/59 (70) 99 05/25/20 04:00 98.4 84 16 120/69 (86) 98 05/25/20 00:00 97.5 109 17 118/76 (90) 100 05/24/20 21:00 Room Air 05/24/20 20:00 97.9 96 18 118/76 (90) 98 05/24/20 19:26 99.0 05/24/20 16:49 99.0 05/24/20 16:00 99.0 95 18 112/61 (78) 97 Intake and Output 05/24/20 05/25/20 19:00 07:00 Intake Total 720 ml Output Total 1350 ml Balance 720 ml -1350 ml Intake Oral 720 ml Output Urine Total 1350 ml # Bowel Movements 1 Laboratory Tests 05/24/20 21:00: Stool Occult Blood Negative 05/25/20 05:15: White Blood Count 6.3, Red Blood Count 2.84L, Hemoglobin 8.1L, Hematocrit 25.8L, Mean Corpuscular Volume 91, Mean Corpuscular Hemoglobin 28.3, Mean Corpuscular Hemoglobin Concent 31.3L, Red Cell Distribution Width 21.1H, Platelet Count 373, Mean Platelet Volume 5.6L, Neutrophils (%) (Auto) , Lymphocytes (%) (Auto) , Monocytes (%) (Auto) , Eosinophils (%) (Auto) , Basophils (%) (Auto) , Differential Total Cells Counted 100, Neutrophils % (Manual) 74, Lymphocytes % (Manual) 12L, Monocytes % (Manual) 3, Eosinophils % (Manual) 7H, Basophils % (Manual) 0, Band Neutrophils 4, Platelet Estimate Adequate, Platelet Morphology Normal, Hypochromasia 2+, Anisocytosis 2+, Sodium Level 143, Potassium Level 4.2, Chloride Level 107, Carbon Dioxide Level 26, Anion Gap 10, Blood Urea Nitrogen 5L, Creatinine 0.4L, Estimat Glomerular Filtration Rate > 60, Glucose Level 79, Calcium Level 10.1 Height (Feet): 5 Height (Inches): 7.00 Weight (Pounds): 150 General Appearance: lethargic EENT: normal ENT inspection Neck: normal alignment Cardiovascular: normal peripheral pulses, normal rate, regular rhythm Respiratory/Chest: chest wall non-tender, lungs clear, normal breath sounds Abdomen: normal bowel sounds, non tender, soft Extremities: normal inspection Edema: no edema noted Arm (L), no edema noted Arm (R), no edema noted Leg (L), no edema noted Leg (R), no edema noted Pedal (L), no edema noted Pedal (R), no edema noted Generalized Neurologic: motor weakness Skin: normal pigmentation, warm/dry Assessment/Plan Problem List: (1) Lymphoma ICD Codes: C85.90 - Non-Hodgkin lymphoma, unspecified, unspecified site SNOMED: 230947795 (2) Hip fracture ICD Codes: S72.009A - Fracture of unspecified part of neck of unspecified femur, initial encounter for closed fracture SNOMED: 148533096 (3) Anemia ICD Codes: D64.9 - Anemia, unspecified SNOMED: 910018420 Qualifiers: Qualified Codes: D64.9 - Anemia, unspecified (4) Abnormal thyroid function test ICD Codes: R94.6 - Abnormal results of thyroid function studies SNOMED: 078818905 (5) JIM (acute kidney injury) ICD Codes: N17.9 - Acute kidney failure, unspecified SNOMED: 0697070, 12566779 (6) COVID-19 ICD Codes: U07.1 - COVID-19 SNOMED: 600736646 Status: stable, progressing Assessment/Plan: o2 pulm tx abx gi heme eval cbc bmp am dc to snf if clear Spencer Lopez DO May 25, 2020 13:39
--- NOTE | 2020-05-25 13:41 | NUR ---
CASE MANAGEMENT:REVIEW SI;S/P COVID PNEUMONIA. CHRONIC LT HIP FX (NWB). 98.4 109 18 93/59 98% ON RA H/H- 8.1/25.8 IS;MORPHINE SULFATE IV Q3 PRN NORCO PO Q6 PRN ALLOPURINOL PO QD BACLOFEN PO TID MARINOL PO BID MAG-OX PO TID VITAMIN C PO QD LINZESS PO QD HEPARIN SQ Q8 MED SURG STATUS DCP;SNF PLACEMENT
[2020-05-25 16:00] VITALS: BP 100/61
--- NOTE | 2020-05-25 16:51 | NUR ---
*-*DISCHARGE PLANNED*-* PATIENT HAS BEEN ACCEPTED AND WILL BE DISCHARGE TO: [facility] P: [phone] FOR NURSE TO NURSE REPORT ROOM# 130.[facility] TRANSPORTATION SET FOR 5:45PM S/W [place] [id number]. PLACED A CALL TO FAMILY ON CONTACT LIST, NO ANSWER, UNABLE TO LEAVE VOICE MESSAGE.
--- NOTE | 2020-05-25 17:30 | NUR ---
Nurse Notes patient was accepted at [facility] Sandoval patient agreed with the plan of care, notified Yaokv father made aware patient will be discharge to [facility], [phone] report given to Yamini LUCIA receiving nurse from [facility] all questions answered REA amador
--- NOTE | 2020-05-25 19:10 | NUR ---
nurse notes discharge in stable condition with all belongings taken accompanied by ambulance personnel,report given accordingly discharged via ambulance kris amador
--- NOTE | 2020-05-25 22:31 | Neurology Progress Note ---
Interim History Interim History ROS Limited/Unobtainable: No Interim History pain better Objective Physical Exam Last Vital Signs Date Time Temp Pulse Resp B/P (MAP) Pulse Ox O2 Delivery O2 Flow Rate FiO2 05/25/20 16:00 97.7 97 17 100/61 (74) 99 05/25/20 08:30 Room Air 05/17/20 19:55 21 Laboratory Tests Test 05/25/20 05:15 White Blood Count 6.3 K/UL (4.8-10.8) Red Blood Count 2.84 M/UL (4.20-5.40) L Hemoglobin 8.1 G/DL (12.0-16.0) L Hematocrit 25.8 % (37.0-47.0) L Mean Corpuscular Volume 91 FL (80-99) Mean Corpuscular Hemoglobin 28.3 PG (27.0-31.0) Mean Corpuscular Hemoglobin Concent 31.3 G/DL (32.0-36.0) L Red Cell Distribution Width 21.1 % (11.6-14.8) H Platelet Count 373 K/UL (150-450) Mean Platelet Volume 5.6 FL (6.5-10.1) L Neutrophils (%) (Auto) % (45.0-75.0) Lymphocytes (%) (Auto) % (20.0-45.0) Monocytes (%) (Auto) % (1.0-10.0) Eosinophils (%) (Auto) % (0.0-3.0) Basophils (%) (Auto) % (0.0-2.0) Differential Total Cells Counted 100 Neutrophils % (Manual) 74 % (45-75) Lymphocytes % (Manual) 12 % (20-45) L Monocytes % (Manual) 3 % (1-10) Eosinophils % (Manual) 7 % (0-3) H Basophils % (Manual) 0 % (0-2) Band Neutrophils 4 % (0-8) Platelet Estimate Adequate Platelet Morphology Normal Hypochromasia 2+ Anisocytosis 2+ Sodium Level 143 MMOL/L (136-145) Potassium Level 4.2 MMOL/L (3.5-5.1) Chloride Level 107 MMOL/L (98-107) Carbon Dioxide Level 26 MMOL/L (21-32) Anion Gap 10 mmol/L (5-15) Blood Urea Nitrogen 5 mg/dL (7-18) L Creatinine 0.4 MG/DL (0.55-1.30) L Estimat Glomerular Filtration Rate > 60 mL/min (>60) Glucose Level 79 MG/DL (74-106) Calcium Level 10.1 MG/DL (8.5-10.1) Impression/Recommendations Problems: (1) Anemia Status: stable, progressing Diagnostic Impression Chronic weakness, LE worse than UEs MRI spine noted, osteoma wo spine compression slplaminectomy COVID 19 pneumonia (febrile, tachycardic) Hx of Lymphoma cont medical support pain control PT as able Renny Bajwa MD May 25, 2020 22:31
== END 2020-05-25 19:10 | DRG 720 ==
LOC: EDBD 20:16 → EMR 20:50 → 3E 21:32 → EDBEDREQ 22:33 → 3E 04-12 06:40 → 4E 04-12 18:10
PROC: 30233N1 Transfusion of Nonautologous Red Blood Cells into Peripheral Vein, Percutaneous Approach (ICD-10-PCS; principal; 2020-04-11)
DX: A41.89 Other specified sepsis (principal); U07.1 COVID-19; J12.82 Pneumonia due to coronavirus disease 2019; I11.9 Hypertensive heart disease without heart failure; C85.90 Non-Hodgkin lymphoma, unspecified, unspecified site; D63.8 Anemia in other chronic diseases classified elsewhere; E87.6 Hypokalemia; E83.42 Hypomagnesemia; S72.142D Displaced intertrochanteric fracture of left femur, subsequent encounter for closed fracture with routine healing; X58.XXXD Exposure to other specified factors, subsequent encounter; D84.81 Immunodeficiency due to conditions classified elsewhere; N17.9 Acute kidney failure, unspecified; D62 Acute posthemorrhagic anemia; G82.20 Paraplegia, unspecified; E03.9 Hypothyroidism, unspecified; D16.6 Benign neoplasm of vertebral column; R93.7 Abnormal findings on diagnostic imaging of other parts of musculoskeletal system; Z91.81 History of falling; R26.2 Difficulty in walking, not elsewhere classified; Z92.21 Personal history of antineoplastic chemotherapy; K62.89 Other specified diseases of anus and rectum; K59.00 Constipation, unspecified; R33.9 Retention of urine, unspecified; M10.9 Gout, unspecified; G89.29 Other chronic pain; M54.9 Dorsalgia, unspecified; R97.0 Elevated carcinoembryonic antigen [CEA]; K44.9 Diaphragmatic hernia without obstruction or gangrene; B37.49 Other urogenital candidiasis
CPT/HCPCS: 36415; 71045; 71275; 72156; 72157; 72158; 74177; 76770; 80048; 80053; 80076; 80202; 81003; 82270; 82378; 82570; 82728; 82746; 82962; 82977; 83001; 83540; 83550; 83690; 83735; 83880; 84100; 84300; 84439; 84443; 84481; 85007; 85025; 85044; 85060; 85610; 85730; 86140; 86703; 86705; 86709; 86803; 86850; 86900; 86901; 86920; 87040; 87081; 87086; 87340; 93005; 93306; 93970; 94664; 96374; 96376; 99291; A9585; J2405; J7030; J8499